=== PATIENT | female | born 1960 | race Caucasian/White ===

== ENCOUNTER 2018-01-11 21:01 | Observation (INO) | payer MEDICARE, MEDICAID, SELFPAY ==
[2018-01-11 21:03] VITALS: BP 128/50; PULSE 64; RESP 22; TEMP 36.9; O2SAT 90; BMI 37.1
--- NOTE | 2018-01-11 21:13 | XR_ITS ---
XR chest 2V HISTORY: ITS.REASON: chest pain ORDERING PHYSICIAN: Sea So MD PATIENT AGE: 57 years COMPARISON: 04/09/2017 FINDINGS: There is cardiomegaly without failure. Right subclavian Mediport catheter present with the tip in the region of the SVC. There are chronic pleural parenchymal changes on the right. No lobar consolidation or collapse. A bone plate is present over the lower cervical spine. No acute bony anomalies. IMPRESSION: Cardiomegaly with chronic changes, no acute finding
[2018-01-11 21:38] LABS: Basophils # 0.1 K/mm3 (0-0.2); Basophils % 0.7 % (0.1-2.0); Eosinophils # 0.4 K/mm3 (0.0-0.4); Eosinophils % 2.9 % (0.1-12.0); Hematocrit 42.7 % (37.0-47.0); Hemoglobin 13.5 g/dL (12.2-16.2); Lymphocytes # 4.1 K/mm3 (0.7-4.5); Lymphocytes % 33.7 K/mm3 (10-50); Mean Corpuscular HGB Conc 31.7 g/dL (31.8-35.4); Mean Corpuscular Hemoglobin 29.2 pg (27.0-31.2); Mean Corpuscular Volume 92.1 fl (81-99); Mean Platelet Volume 9.3 fl (7.4-10.4); Monocytes # 0.6 K/mm3 (0.1-1.0); Monocytes % 4.7 % (1.7-9.3); Neutrophils % 57.9 % (37.0-80.0); Platelet Count 263 K/mm3 (142-424); Red Blood Count 4.63 M/mm3 (4.20-5.40); Red Cell Distribution Width 13.9 % (11.5-17.5)
--- NOTE | 2018-01-11 21:51 | HMH.EDCP ---
ED Disposition Clinical Impression: Chest pain Qualifiers: Chest pain type: precordial pain Qualified Code(s): R07.2 - Precordial pain Disposition: Admitted as Observation Condition on Discharge: Good - Critical Care Critical Care Time: No Attestation: On 01/11/18, the high probability of a clinically significant, sudden or life threatening deterioration of the following system(s) required my full and direct attention, intervention and personal management. The time I documented below is in addition to time spent performing reported procedures but includes the following listed in this critical care notation. Medical Decision Making - Medical Records Medical records reviewed: Yes: I reviewed the patient's medical records. Vital Signs: 01/11/18 21:03 Temperature 98.4 F Temperature Source Oral Pulse Rate [Right Radial] 64 Respiratory Rate 22 Blood Pressure [Right Arm] 128/50 Blood Pressure Mean [Right Arm] 76 Blood Pressure Source [Right Arm] Automatic Cuff Blood Pressure Position [Right Arm] Sitting 02 Sat by Pulse Oximetry 90 L Oxygen Delivery Method Room Air - Lab Data Lab results reviewed: Yes: I reviewed the patient's lab results. Lab Results 01/11/18 21:20: WBC 12.0 H, RBC 4.63, Hgb 13.5, Hct 42.7, MCV 92.1, MCH 29.2, MCHC 31.7 L, RDW 13.9, Plt Count 263, MPV 9.3, Neut % (Auto) 57.9, Lymph % (Auto) 33.7, [place] % (Auto) 4.7, Eos % (Auto) 2.9, Baso % (Auto) 0.7, Neut # (Auto) 7.0, Lymph # (Auto) 4.1, Mcle[place] # (Auto) 0.6, Eos # (Auto) 0.4, Baso # (Auto) 0.1 01/11/18 21:20: Sodium 141, Potassium 4.0, Chloride 103, Carbon Dioxide 31, Anion Gap 11.0, BUN 13, Creatinine 1.04 H, Estimated Creat Clear 98, Estimated GFR 55 L, Est GFR ( Amer) 66, Glucose 107 H, Calcium 8.5, Total Bilirubin 0.3, AST 8 L, ALT 22, Alkaline Phosphatase 162 H, Total Creatine Kinase 69, CK-MB (CK-2) 0.8, CK-MB (CK-2) Rel Index 1.2, Troponin I < 0.02, Total Protein 7.1, Albumin 3.3 L, Globulin 3.8 H, Albumin/Globulin Ratio 0.9 L 01/11/18 21:20: Influenza Type A Ag Negative, Influenza Type B Ag Negative 01/11/18 22:35: Urine Color Yellow, Urine Appearance Sl cloudy, Urine pH 7.0, Ur Specific [place] 1.020, Urine Protein Negative, Urine Glucose (UA) Negative, Urine Ketones Negative, Urine Blood Negative, Urine Nitrate Negative, Urine Bilirubin Negative, Urine Urobilinogen 0.2, Ur Leukocyte Esterase Negative, Ur Squamous Epith Cells 10-20, Amorphous Sediment 2+, Urine Mucus Trace Result diagrams: 01/11/18 21:20 01/11/18 21:20 Orders (Tests/Meds): ED MEDICATIONS Discontinued Medications Generic Name Dose Route Start Last Admin Trade Name Freq PRN Reason Stop Dose Admin Acetaminophen 650 mg 01/11/18 22:58 01/11/18 23:09 Acetaminophen 325mg Tab PO 01/11/18 22:59 650 mg ONCE ONE Administration Aspirin 325 mg 01/11/18 21:52 01/11/18 21:57 Aspirin 325mg Tablet PO 01/11/18 21:53 325 mg ONCE ONE Administration Butorphanol Tartrate 1 mg 01/11/18 23:19 Stadol 1mg/1ml Vial IV 01/11/18 23:20 ONCE ONE Nitroglycerin 1 gm 01/11/18 21:53 01/11/18 21:57 Nitroglycerin 1 Inch Oint Udp TD 01/11/18 21:54 1 gm ONCE ONE Administration Promethazine HCl 12.5 mg 01/11/18 23:19 Phenergan 25mg/Ml 1ml Vial IV 01/11/18 23:20 ONCE ONE Sodium Chloride 25 ml 01/11/18 23:19 Sod Chlor 0.9% 25ml Bag IV 01/11/18 23:20 ONCE ONE ORDERS Category Date Time Status XR chest 2V Stat Exams 01/11/18 21:13 Taken ECG Request by /Berna Stat Y 01/11/18 21:13 Ordered - Radiology Data #1 Image(s): Chest Image Reviewed: Yes I reviewed the patient's radiology image Preliminary Findings: Abnormal (cm) - ECG Data Tracing #1 I reviewed this ECG and interpreted as documented below: Normal Sinus Rhythm: Yes Ischemic changes: non-specific ST-T wave changes - Delroy Inquiry Pt receiving controlled substance: No Chest Pain HPI - General Chief Complaint: Chest Pain
[2018-01-11 22:08] LABS: Alanine Aminotransferase 22 U/L (12-78); Albumin Level 3.3 gm/dL (3.4-5.0); Albumin/Globulin Ratio 0.9 (1.1-1.8); Alkaline Phosphatase 162 U/L (46-116); Aspartate Amino Transferase 8 U/L (15-37); Bilirubin,Total 0.3 mg/dL (0.2-1.0); Blood Urea Nitrogen 13 mg/dL (7-18); CKMB Relative Index 1.2 U/L (0-4.0); Calcium 8.5 mg/dL (8.5-10.1); Carbon Dioxide 31 mmol/L (21.0-32.0); Chloride 103 mmol/L (98-107); Creatine Kinase 69 U/L (26-192); Creatine Kinase MB 0.8 mg/ml (0.0-3.6); Creatinine Clearance Estimated 98 mL/min (0-300); Creatinine,Serum 1.04 mg/dL (0.55-1.02); Estimated Glomerular Filt Rate 55 ml/min (>60); GFR (African American) 66 ML/MIN (>60); Globulin 3.8 gm/dl (1.3-3.2); Glucose 107 mg/dL (74-106); Sodium 141 mmol/L (136-145); Total Protein,Serum 7.1 gm/dL (6.4-8.2); Troponin I < 0.02 ng/ml (0.00-0.06)
[2018-01-11 22:39] LABS: Microscopic, Urine URINE MICROSCOPIC (MICROSCOPIC)
[2018-01-11 22:42] LABS: Appearance,Urine SL CLOUDY (Clear); Bilirubin,Urine Negative (Negative); Blood, Urine Negative (Negative); Color,Urine YELLOW (Yellow); Glucose,Urine (UA) Negative (Negative); Ketones,Urine Negative (Negative); Leukocyte Esterase,Urine Negative (Negative); Nitrate,Urine Negative (Negative); Protein,Urine Negative (Negative); Urobilinogen,Urine 0.2 EU/dl (0.2)
[2018-01-11 22:46] LABS: Amorphous Sediment,Urine 2+ /lpf; Mucus,Urine Trace /lpf
[2018-01-12] VITALS (10 sets, daily range): BP systolic 99–133; BP diastolic 63–92; PULSE 50–93; RESP 13–22; TEMP 36.4–36.9; O2SAT 90–95; BMI 39.0
--- NOTE | 2018-01-12 00:28 | PC.NURSE ---
CALLED REPORT TO NICOLA [facility]OR IN ICU
[2018-01-12 05:44] LABS: Basophils # 0.1 K/mm3 (0-0.2); Basophils % 0.6 % (0.1-2.0); Eosinophils # 0.3 K/mm3 (0.0-0.4); Eosinophils % 2.9 % (0.1-12.0); Hematocrit 41.5 % (37.0-47.0); Hemoglobin 13.1 g/dL (12.2-16.2); Lymphocytes # 4.1 K/mm3 (0.7-4.5); Lymphocytes % 40.4 K/mm3 (10-50); Mean Corpuscular HGB Conc 31.5 g/dL (31.8-35.4); Mean Corpuscular Hemoglobin 29.4 pg (27.0-31.2); Mean Corpuscular Volume 93.3 fl (81-99); Mean Platelet Volume 8.8 fl (7.4-10.4); Monocytes # 0.4 K/mm3 (0.1-1.0); Monocytes % 4.4 % (1.7-9.3); Neutrophils # 5.2 K/mm3 (1.8-7.8); Neutrophils % 51.7 % (37.0-80.0); Platelet Count 245 K/mm3 (142-424); Red Blood Count 4.45 M/mm3 (4.20-5.40); White Blood Count 10.1 K/mm3 (4.8-10.8)
--- NOTE | 2018-01-12 05:59 | PC.NURSE ---
PT HAS HAD PERIODS OF BRADYCARDIA AT TIMES. PT IS NPO THIS AM FOR [facility] CONSULT. PT REMAINS ON 3L O2 NC. LUNGS NOTED TO HAVE CRACKLES TO BILATERAL BASES. PT HAS C/O DISCOMFORT TO CHEST AND EPIGASTRIC AREA. SHE ALSO STATED THAT SHE HAD NAUSEA AND LOOSE STOOLS EARLIER. SKIN WAS NOTED TO HAVE A SCRATCH TO HER BACK. PORTACATH ACCESSED FOR USE OF IV FLUID ADMIN. MEDICATIONS ADMIN PER JAN.WILL CONTINUE TO MONITOR.
[2018-01-12 06:05] LABS: Anion Gap 8.8 mEq/L (5-15); Blood Urea Nitrogen 13 mg/dL (7-18); Carbon Dioxide 32 mmol/L (21.0-32.0); Chloride 105 mmol/L (98-107); Chol/HDL Ratio 3.2 (1-3.5); Cholesterol 119 mg/dL (140-200); Creatinine Clearance Estimated 100 mL/min (0-300); Creatinine,Serum 1.08 mg/dL (0.55-1.02); Estimated Glomerular Filt Rate 52 ml/min (>60); GFR (African American) 63 ML/MIN (>60); Glucose 115 mg/dL (74-106); HDL Cholesterol 37 mg/dL (29-89); LDL Cholesterol 45 mg/dL (0-130); Potassium 3.8 mmoL/L (3.5-5.1); Sodium 142 mmol/L (136-145); Triglycerides 184 mg/dL (30-200); Troponin I < 0.02 ng/ml (0.00-0.06); VLDL Cholesterol 37 mg/dL (0-40)
--- NOTE | 2018-01-12 07:26 | CA_ITS ---
PROCEDURE: 2-D M-mode and color Doppler study INDICATIONS FOR THE TEST: Chest pain+ COPD+ Heart Murmur Tobacco Smoking+ Palpitations Fatigue Syncope Edema Hypertension+Diabetes Mellitus Rheumatic Fever SOB+CELESTE Obesity+Hyperlipidemia+ Family History HD+ Additional History dizziness PATIENT INFORMATION HEIGHT: 66 WEIGHT: 242 GENDER: Female B/P: 142/74 2-D/M-MODE INTERPRETATION: 2-D MEASUREMENTS OBSERVED VALUES IN CMS Right Ventricular Dimension (RVDd) 2.7 Interventricular Septum (Thickness)(IVsd) 1.2 Left Ventricular Internal Dimensions(LVIDd) 4.3 Left Ventricular Posterior Wall (Thickness)(LVPWd) 1.3 Aortic Root 2.7 Aortic Cusp Separation 2.2 Left Atrial Dimensions (LAD) 4.7 2D 1. Left atrium is mildly enlarged, left ventricle is normal size, mild concentric left ventricular hypertrophy, visually estimated ejection fraction 55% with no obvious regional wall motion abnormality. 2. The right atrium and right ventricle are normal size and contractility. 3. The aortic valve is minimally thickened and fibrosed. 4. The mitral and tricuspid valve leaflets are minimally thickened. 5. The pulmonic valve is poorly visualized. 6. No significant pericardial effusion noted. DOPPLER INTERROGATION: Doppler interrogation of the aortic, mitral and tricuspid valvular presence of mild mitral and tricuspid regurgitation, tricuspid and jet velocity is insufficient for calculation of the right ventricular systolic pressure, grade 1 diastolic dysfunction seen with tissue Doppler evidence of raised left atrial pressure. CONCLUSION: 1. Mildly enlarged left atrium, normal left ventricular size, mild concentric left ventricular hypertrophy, visually estimated ejection fraction 55% with no obvious regional wall motion abnormality, grade 1 diastolic dysfunction seen with tissue Doppler evidence of raised left atrial pressure. 2. Mild mitral and tricuspid regurgitation 3. No significant pericardial effusion noted.
--- NOTE | 2018-01-12 07:40 | HMH.HP ---
*Admission Date: 01/11/18 *Chief complaint: Chest pain *History of present illness: 57-year-old female presented to the emergency department with chest tightness. 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 She was on her way to get her grandchild yesterday and was emotionally upset and developed chest tightness with associated shortness of breath. She had symptoms for approximately an hour before deciding to seek treatment at the emergency department. She states symptoms started to improve in the emergency department but her chest tightness did not actually go away until she fell asleep and awoke this morning free of any chest discomfort. She is has associated nausea as well as shortness of breath. Patient had a similar episode 6 months ago which led to a hospitalization at [facility] where she underwent echocardiogram as well as Lexiscan stress test. She did not have cardiac catheterization. In addition to this patient has a long history of gastrointestinal problems including severe gastrointestinal reflux disease along with recurrent and chronic pancreatitis and gastritis. Patient denies vomiting [facility] History Medical History: Reports:: Gastroesophageal Reflux Disease(GERD), Peripheral Artery Disease Denies:: Diabetes Mellitus Type 1 Other Medical History: Reports: Hoarseness Comment: reCurrent pancreatitis Other Surgeries: Yes: Colonoscopy, EGD - *Social History Educational Level: Completed College Smoking Status: Current every day smoker Tobacco Type: cigarettes # Packs/Day (cigarettes): 12 #Yrs smoked (if former smoker): 50 Alcohol Intake: never Alcohol Intake Frequency:: a few times a week Occupational Status: unemployed Housing: house Household Members: spouse, children - Psychiatric History Expresses thoughts of harming self/others: None Suicide Plan Description: No Plan *Family Hx:: Hyperlipidemia, Hypertension, Stroke Review of Systems - Review of Systems Review of systems:: pertinent systems reviewed and negative unless documented below - Constitutional Denies body ache(s), Denies chills - *Cardiovascular Reports chest pain, Reports shortness of breath - *Respiratory Denies chest congestion, Denies cough - *Gastrointestinal Denies abdominal pain, Denies bloating, Denies change in bowel habits - *Neurologic Denies seizure-like activity Meds Home Medications Medication Instructions Recorded Confirmed Type ALPRAZolam [Xanax 1mg tab] 1 mg PO BID 01/11/18 01/11/18 History Atorvastatin Calcium [Lipitor 40mg 40 mg PO DAILY 01/11/18 01/11/18 History Tablet] Duloxetine HCl [Cymbalta] 60 mg PO BID 01/11/18 01/11/18 History Metoprolol Tartrate 100 mg PO DAILY 01/11/18 01/11/18 History Montelukast Sodium [Singulair 10mg 10 mg PO PM 01/11/18 01/11/18 History tablet] Omeprazole Magnesium [Prilosec Otc 20 mg PO DAILY 01/11/18 01/11/18 History 20mg Tab] Trazodone HCl 150 mg PO HS 01/11/18 01/11/18 History Allergies Allergy/AdvReac Type Severity Reaction Status Date / Time codeine [CODEINE] Allergy Unknown Verified 01/11/18 21:17 ketorolac [KETOROLAC] Allergy Unknown Verified 01/11/18 21:17 meperidine [MEPERIDINE] Allergy Unknown Verified 01/11/18 21:17 tramadol [TRAMADOL] Allergy Unknown Verified 01/11/18 21:17 Exam Vital signs and Labs for Last 24 Hours: Temp Pulse Resp BP Pulse Ox 97.5 F L 50 L 20 99/63 93 L 01/12/18 04:05 01/12/18 05:04 01/12/18 04:05 01/12/18 04:05 01/12/18 04:05 Laboratory Results - last 24 hr 01/12/18 05:15: WBC 10.1, RBC 4.45, Hgb 13.1, Hct 41.5, MCV 93.3, MCH 29.4, MCHC 31.5 L, RDW 14.0, Plt Count 245, MPV 8.8, Neut % (Auto) 51.7, Lymph % (Auto) 40.4, [place] % (Auto) 4.4, Eos % (Auto) 2.9, Baso % (Auto) 0.6, Neut # (Auto) 5.2, Lymph # (Auto) 4.1, [place] # (Auto) 0.4, Eos # (Auto) 0.3, Baso # (Auto) 0.1 01/12/18 05:15: Sodium 142, Potassium 3.8, Chloride 105, Carbon Dioxide 32, Anion Gap 8.8, BU
--- NOTE | 2018-01-12 07:44 | P.HP_ITS ---
*Admission Date: 01/11/18 *Chief complaint: Chest pain *History of present illness: 57-year-old female presented to the emergency department with chest tightness. 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 She was on her way to get her grandchild yesterday and was emotionally upset and developed chest tightness with associated shortness of breath. She had symptoms for approximately an hour before deciding to seek treatment at the emergency department. She states symptoms started to improve in the emergency department but her chest tightness did not actually go away until she fell asleep and awoke this morning free of any chest discomfort. She is has associated nausea as well as shortness of breath. Patient had a similar episode 6 months ago which led to a hospitalization at [facility] where she underwent echocardiogram as well as Lexiscan stress test. She did not have cardiac catheterization. In addition to this patient has a long history of gastrointestinal problems including severe gastrointestinal reflux disease along with recurrent and chronic pancreatitis and gastritis. Patient denies vomiting [facility] History Medical History: Reports:: Gastroesophageal Reflux Disease(GERD), Peripheral Artery Disease Denies:: Diabetes Mellitus Type 1 Other Medical History: Reports: Hoarseness Comment: reCurrent pancreatitis Other Surgeries: Yes: Colonoscopy, EGD - *Social History Educational Level: Completed College Smoking Status: Current every day smoker Tobacco Type: cigarettes # Packs/Day (cigarettes): 12 #Yrs smoked (if former smoker): 50 Alcohol Intake: never Alcohol Intake Frequency:: a few times a week Occupational Status: unemployed Housing: house Household Members: spouse, children - Psychiatric History Expresses thoughts of harming self/others: None Suicide Plan Description: No Plan *Family Hx:: Hyperlipidemia, Hypertension, Stroke Review of Systems - Review of Systems Review of systems:: pertinent systems reviewed and negative unless documented below - Constitutional Denies body ache(s), Denies chills - *Cardiovascular Reports chest pain, Reports shortness of breath - *Respiratory Denies chest congestion, Denies cough - *Gastrointestinal Denies abdominal pain, Denies bloating, Denies change in bowel habits - *Neurologic Denies seizure-like activity Meds Home Medications Medication Instructions Recorded Confirmed Type ALPRAZolam [Xanax 1mg tab] 1 mg PO BID 01/11/18 01/11/18 History Atorvastatin Calcium [Lipitor 40mg 40 mg PO DAILY 01/11/18 01/11/18 History Tablet] Duloxetine HCl [Cymbalta] 60 mg PO BID 01/11/18 01/11/18 History Metoprolol Tartrate 100 mg PO DAILY 01/11/18 01/11/18 History Montelukast Sodium [Singulair 10mg 10 mg PO PM 01/11/18 01/11/18 History tablet] Omeprazole Magnesium [Prilosec Otc 20 mg PO DAILY 01/11/18 01/11/18 History 20mg Tab] Trazodone HCl 150 mg PO HS 01/11/18 01/11/18 History Allergies Allergy/AdvReac Type Severity Reaction Status Date / Time codeine [CODEINE] Allergy Unknown Verified 01/11/18 21:17 ketorolac [KETOROLAC] Allergy Unknown Verified 01/11/18 21:17 meperidine [MEPERIDINE] Allergy Unknown Verified 01/11/18 21:17 tramadol [TRAMADOL] Allergy Unknown Verified 01/11/18 21:17 Exam Vital signs and Labs for Last 24 Hours: Temp Pulse Resp BP Pulse Ox 97.5 F L 50 L 20 99/63
--- NOTE | 2018-01-12 08:01 | HMH.CNCARD ---
History of Present Illness Consult date: 01/12/18 Requesting physician: Oskar Donovan Consult reason: chest pain Chief complaint: Chest pressure, SOA History of present illness: 57 yo WF with COPD secondary to tobacco use, HTN and hyperlipidemia presented to ER for evaluation of chest pain, pressure, SOA and nausea during emotional upset with family members. This is a recurrent event with emotional upset per patient. Recently hospitalized last year for similar symptoms at [facility] without need for cardiac cath per patient. Patient relates CVA last year for which she was placed on anticoagulation but unable to afford it so she was put on coumadin but due to instruction to not take ASA (she uses it for headaches) she stopped taking the coumadin. Pt admitted through the ER last evening with troponins returning normal. EKG is sinus without acute changes. Cardiology consulted for evaluation. [facility] History Medical History: Reports:: Gastroesophageal Reflux Disease(GERD), Peripheral Artery Disease Denies:: Diabetes Mellitus Type 1 Other Medical History: Reports: Hoarseness Other Surgeries: Yes: Colonoscopy, EGD - *Social History Educational Level: Completed College Smoking Status: Current every day smoker Tobacco Type: cigarettes # Packs/Day (cigarettes): 12 #Yrs smoked (if former smoker): 50 Alcohol Intake: never Alcohol Intake Frequency:: a few times a week Occupational Status: unemployed Housing: house Household Members: spouse, children - Psychiatric History Expresses thoughts of harming self/others: None Suicide Plan Description: No Plan *Family Hx:: Hyperlipidemia, Hypertension, Stroke Meds Home Medications Medication Instructions Recorded Confirmed Type ALPRAZolam [Xanax 1mg tab] 1 mg PO BID 01/11/18 01/11/18 History Atorvastatin Calcium [Lipitor 40mg 40 mg PO DAILY 01/11/18 01/11/18 History Tablet] Duloxetine HCl [Cymbalta] 60 mg PO BID 01/11/18 01/11/18 History Metoprolol Tartrate 100 mg PO DAILY 01/11/18 01/11/18 History Montelukast Sodium [Singulair 10mg 10 mg PO PM 01/11/18 01/11/18 History tablet] Omeprazole Magnesium [Prilosec Otc 20 mg PO DAILY 01/11/18 01/11/18 History 20mg Tab] Trazodone HCl 150 mg PO HS 01/11/18 01/11/18 History Allergies Allergy/AdvReac Type Severity Reaction Status Date / Time codeine [CODEINE] Allergy Unknown Verified 01/11/18 21:17 ketorolac [KETOROLAC] Allergy Unknown Verified 01/11/18 21:17 meperidine [MEPERIDINE] Allergy Unknown Verified 01/11/18 21:17 tramadol [TRAMADOL] Allergy Unknown Verified 01/11/18 21:17 Review of Systems - *Cardiovascular Reports chest pain, Reports chest pain at rest, Reports shortness of breath, Reports shortness of breath with activity - *Respiratory Reports shortness of breath, Reports shortness of breath with activity - *Musculoskeletal Reports back pain - *Neurologic Denies seizure-like activity Exam Vital signs and Labs for Last 24 Hours: Temp Pulse Resp BP Pulse Ox 97.5 F L 50 L 20 99/63 93 L 01/12/18 04:05 01/12/18 05:04 01/12/18 04:05 01/12/18 04:05 01/12/18 04:05 Laboratory Results - last 24 hr 01/12/18 05:15: WBC 10.1, RBC 4.45, Hgb 13.1, Hct 41.5, MCV 93.3, MCH 29.4, MCHC 31.5 L, RDW 14.0, Plt Count 245, MPV 8.8, Neut % (Auto) 51.7, Lymph % (Auto) 40.4, [place] % (Auto) 4.4, Eos % (Auto) 2.9, Baso % (Auto) 0.6, Neut # (Auto) 5.2, Lymph # (Auto) 4.1, [place] # (Auto) 0.4, Eos # (Auto) 0.3, Baso # (Auto) 0.1 01/12/18 05:15: Sodium 142, Potassium 3.8, Chloride 105, Carbon Dioxide 32, Anion Gap 8.8, BUN 13, Creatinine 1.08 H, Estimated Creat Clear 100, Estimated GFR 52 L, Est GFR ( Amer) 63, Glucose 115 H, Troponin I < 0.02, Triglycerides 184, Cholesterol 119 L, LDL Cholesterol 45, VLDL Cholesterol 37, HDL Cholesterol 37, Cholesterol/HDL Ratio 3.2 I & O for Last 24 hours: Intake & Output 01/09/18 01/10/18 01/11/18 01/12/18 11:59 11:59 11:59 11:59 Weight 242 lb 3 oz - *R
--- NOTE | 2018-01-12 08:06 | NM_ITS ---
CARDIOLITE SPECT MYOCARDIAL PERFUSION SCAN, REST AND STRESS: EXERCISE STRESS [facility] REVIEW QGS EF AND WALL MOTION EVALUATION: QPS - PERFUSION EVALUATION HISTORY: Chest pain, SOB, Abnormal EKG, Fatigue, COPD DOSE: 8.80 mCi technetium 99m mibi intravenously at rest followed by 30.5 mCi technetium 99m mibi following the intravenous ministration of 0.4 mg of Lexiscan. Resting blood pressure is 145/87. Stress blood pressure 131/77. FINDINGS: Ejection fraction is calculated to be 61%. Stress images reveal severely decreased activity throughout the anterior wall and a large portion of the inferior wall while rest images reveal significant improvement in tracer uptake in both the anterior and inferior wall. IMPRESSION: High risk abnormal stress test with large degree of both anterior and inferior ischemia. Normal ejection fraction and normal wall motion
--- NOTE | 2018-01-12 08:11 | PC.NURSE ---
PT HAND OFF TO Edson BRYAN AND Rusty DANIEL
--- NOTE | 2018-01-12 08:36 | HMH.PHAVTE ---
[facility] Pharmacy VTE Monitoring - Patient Demographics Admission date: 01/11/18 Report Date: 01/12/18 Time: 08:36 Allergies/Adverse Reactions: Patient Allergies codeine [CODEINE] Allergy (Unknown, Verified 01/11/18 21:17) ketorolac [KETOROLAC] Allergy (Unknown, Verified 01/11/18 21:17) meperidine [MEPERIDINE] Allergy (Unknown, Verified 01/11/18 21:17) tramadol [TRAMADOL] Allergy (Unknown, Verified 01/11/18 21:17) Height: 1.68 m Weight: 109.854 kg Patient Problems: Current Active Problems Chest pain (Acute) Tobacco use (Acute) COPD (chronic obstructive pulmonary disease) (Acute) Hypertension (Acute) Hyperlipidemia (Acute) History of CVA (cerebrovascular accident) (Acute) Noncompliance with medication regimen (Acute) - VTE Risk Labs: VTE Related Lab Results Hgb 13.1 g/dL (12.2-16.2) 01/12/18 05:15 Hct 41.5 % (37.0-47.0) 01/12/18 05:15 Plt Count 245 K/mm3 (142-424) 01/12/18 05:15 BUN 13 mg/dL (7-18) 01/12/18 05:15 Creatinine 1.08 mg/dL (0.55-1.02) H 01/12/18 05:15 Estimated Creat Clear 100 mL/min (0-300) 01/12/18 05:15 Was VTE Risk Assessment Performed: Yes VTE Score: 8 VTE Risk Level: Moderate Risk - Prophylaxis VTE Prophylaxis Ordered?: Yes Types of VTE Prophylaxis: TEDS Knee High Location of Applied Device: Bilateral Lower Extremeties - VTE Diagnosis Confirmed Treatment or plan recommended: Continue Current Treatment
--- NOTE | 2018-01-12 16:12 | PC.NURSE ---
PT STABLE. AFTER GETTING BACK TO FLOOR FROM [facility]ARDIOL[facility] PT SLEEPS MOST OF THE REST OF THE SHIFT. DENIES CP AND SOA.
--- NOTE | 2018-01-12 18:55 | PC.NURSE ---
[id number]: CONTACTED DR ARZOLA REGARDING PT REQUESTING MEDICATION OTHER THAN TYLENOL FOR HEADACHE. PT STATES TYLENOL DID NOT HELP THE PAIN. HAS NO NEW ORDERS.
[2018-01-12 20:19] LABS: Amylase 40 U/L (25-125); Lipase 158 u/L (73-393)
[2018-01-13] VITALS (22 sets, daily range): BP systolic 115–174; BP diastolic 55–109; PULSE 57–90; RESP 15–22; TEMP 36.4–36.7; O2SAT 90–98
--- NOTE | 2018-01-13 | IR_ITS ---
CARDIAC CATHETERIZATION DATE OF CATHETERIZATION:01/13/2018 11:59 AM PROCEDURES: 1. Left heart catheterization 2. Left ventriculogram 3. Selective coronary angiogram 4. Drug-eluting stent deployment to the proximal mid dominant right coronary artery 5. Drug-eluting stent deployment to the proximal mid left anterior descending artery INDICATION FOR TEST: 1. Coronary artery disease 2. High risk abnormal Myoview with both anterior and inferior ischemia 3. Angina pectoris class III and IV 4. Moderate to severe COPD Informed consent was obtained prior to the procedure. COMPLICATIONS: None ESTIMATED BLOOD LOSS: Less than 10 ml. TECHNIQUE: One percent lidocaine used to anesthetize the right anterior aspect of the wrist. The right radial artery was accessed via the Seldinger technique. A 6 Malay sheath was placed in the right radial artery. 2.5 mg of verapamil, 800 mcg of nitroglycerin and 5000 U Heparin were given through the arterial sheath. The trap catheter was also used to perform left heart catheterization left ventriculogram and selective coronary angiogram. Following the diagnostic angiogram and additional 6000 and then 2000 units of heparin was administered intravenously. An [employer] left guide catheter was used intubate the right coronary and a BMW wire was placed in the right coronary artery. A 3 mm x 34 mm resolute Dale stent was deployed at 24 sathish reducing hemodynamically severe disease to 0%. ROSEMARY-3 flow was present before and after the procedure. Following this the guide catheter was used intubate the left main artery and the same wire was placed in the LAD. A 3 mm x 15 mm resolute Dale stent was deployed at 18 sathish reducing the stenosis to 0%. It was disease distally therefore an additional 2.75 x 15 mm resolute [place] stent was deployed distal to the first stent yet still overlapping the first stent and deployed at 18 sathish. The balloon was brought back and deployed at 24 sathish to mesh the 2 stents. ROSEMARY-3 flow was present before and after the procedure. At the end of the procedure the sheath was removed good hemostasis was achieved using TR banding patient transferred to the postop holding area in stable condition. Brilinta 180 mg along with aspirin 325 mg was administered orally on the table. ACT is were 283 seconds and the final out of range ANGIOGRAPHIC RESULTS: 1. The left main artery normal 2. The left anterior descending artery has a proximal concentric 70% stenosis best appreciated and the ONEILL caudal view. The remaining vessel has mild luminal irregularities. The first large diagonal artery has an ostial proximal 60% stenosis. 3. The ramus intermedius is a large vessel with a ostial proximal 40-50% stenosis 4. The circumflex artery is a nondominant vessel with mild 20-30% proximal disease 5. The right coronary artery is a dominant vessel with proximal 30% followed by additional concentric 70% followed by additional 50% mid vessel stenosis 6. The ONEILL ventriculogram reveals normal 65% 7. The left ventricular end-diastolic pressure 20 mmHg IMPRESSION: 1. Severe 2 vessel coronary artery disease as described above which correlated perfectly to the abnormal Myoview with both anterior and inferior ischemia 2. Successful stenting the proximal to mid LAD stent severe disease reduced to 0% with 2 drug-eluting stents 3. Successful stenting of the proximal to mid dominant right coronary artery severe disease reduced to 0% with 1 drug-eluting stent 4. Normal ejection fraction 5. Mildly elevated LVEDP PLAN: 1. Brilinta and aspirin 2. LDL less than 55 3. Risk factor modification 4. Cardiac rehabilitation 5. Avoidance of tobacco products 6. Aggressive risk factor modification
--- NOTE | 2018-01-13 02:34 | PC.NURSE ---
PT IS A&OX3. SHE IS NPO FOR HEART CATH IN AM. RECEIVED PRN MEDICATION FOR PAIN IN ABDOMEN THAT RADIATES TO HER BACK. FAMILY IS AT THE BEDSIDE. SHE HAS BEEN RESTING T/O THE NIGHT. NSR ON TELEMETRY WHILE AWAKE, BRADYCARDIC (57-58) WHILE SLEEPING.
--- NOTE | 2018-01-13 04:18 | PC.NURSE ---
PT WAS CLIPPED FOR PROCEDURE
[2018-01-13 06:00] LABS: Basophils # 0.1 K/mm3 (0-0.2); Basophils % 0.6 % (0.1-2.0); Eosinophils # 0.3 K/mm3 (0.0-0.4); Eosinophils % 2.8 % (0.1-12.0); Hematocrit 40.3 % (37.0-47.0); Hemoglobin 12.7 g/dL (12.2-16.2); Lymphocytes # 3.1 K/mm3 (0.7-4.5); Mean Corpuscular HGB Conc 31.4 g/dL (31.8-35.4); Mean Corpuscular Hemoglobin 29.5 pg (27.0-31.2); Mean Corpuscular Volume 93.9 fl (81-99); Mean Platelet Volume 8.7 fl (7.4-10.4); Monocytes # 0.4 K/mm3 (0.1-1.0); Monocytes % 4.3 % (1.7-9.3); Neutrophils # 5.9 K/mm3 (1.8-7.8); Neutrophils % 60.3 % (37.0-80.0); Platelet Count 233 K/mm3 (142-424); Red Blood Count 4.29 M/mm3 (4.20-5.40); White Blood Count 9.7 K/mm3 (4.8-10.8)
[2018-01-13 06:08] LABS: INR 0.95 (0.9-1.1); Prothrombin Time 10.3 seconds (9.4-11.8)
[2018-01-13 06:17] LABS: Alanine Aminotransferase 20 U/L (12-78); Albumin Level 2.8 gm/dL (3.4-5.0); Albumin/Globulin Ratio 0.9 (1.1-1.8); Alkaline Phosphatase 151 U/L (46-116); Anion Gap 7.8 mEq/L (5-15); Aspartate Amino Transferase 6 U/L (15-37); Bilirubin,Total 0.2 mg/dL (0.2-1.0); Blood Urea Nitrogen 14 mg/dL (7-18); Calcium 7.8 mg/dL (8.5-10.1); Carbon Dioxide 33 mmol/L (21.0-32.0); Chloride 106 mmol/L (98-107); Creatinine Clearance Estimated 109 mL/min (0-300); Estimated Glomerular Filt Rate 57 ml/min (>60); GFR (African American) 69 ML/MIN (>60); Globulin 3.2 gm/dl (1.3-3.2); Glucose 118 mg/dL (74-106); Potassium 3.8 mmoL/L (3.5-5.1); Sodium 143 mmol/L (136-145)
--- NOTE | 2018-01-13 07:13 | HMH.ACPN2 ---
Internal Medicine - PN: Subj *Date: 01/13/18 *Time: 07:13 Interval history: Patient had abnormal stress test yesterday and is scheduled for cardiac catheterization today. Last night she complained of headache and abdominal pain and was given a single [place] 5 mg. This allowed her to sleep the rest of the day and night. Exam Vital signs and Labs for Last 24 Hours: Temp Pulse Resp BP Pulse Ox 97.6 F 57 L 18 119/60 90 L 01/13/18 04:22 01/13/18 04:22 01/13/18 04:22 01/13/18 04:22 01/13/18 04:22 Laboratory Results - last 24 hr 01/12/18 18:00: Amylase 40, Lipase 158 01/13/18 05:40: WBC 9.7, RBC 4.29, Hgb 12.7, Hct 40.3, MCV 93.9, MCH 29.5, MCHC 31.4 L, RDW 14.0, Plt Count 233, MPV 8.7, Neut % (Auto) 60.3, Lymph % (Auto) 32.0, [place] % (Auto) 4.3, Eos % (Auto) 2.8, Baso % (Auto) 0.6, Neut # (Auto) 5.9, Lymph # (Auto) 3.1, [place] # (Auto) 0.4, Eos # (Auto) 0.3, Baso # (Auto) 0.1 01/13/18 05:40: PT 10.3, INR 0.95 01/13/18 05:40: Sodium 143, Potassium 3.8, Chloride 106, Carbon Dioxide 33 H, Anion Gap 7.8, BUN 14, Creatinine 1.00, Estimated Creat Clear 109, Estimated GFR 57 L, Est GFR ( Amer) 69, Glucose 118 H, Calcium 7.8 L, Total Bilirubin 0.2, AST 6 L, ALT 20, Alkaline Phosphatase 151 H, Total Protein 6.0 L, Albumin 2.8 L D, Globulin 3.2, Albumin/Globulin Ratio 0.9 L I & O for Last 24 hours: Intake & Output 01/10/18 01/11/18 01/12/18 01/13/18 11:59 11:59 11:59 11:59 Intake Total 397 / 397 Balance 397 / 397 Weight 242 lb 3 oz 245 lb 7 oz Narrative: She is in no distress. Lungs are clear. Heart has regular rate and rhythm Assessment and Plan (1) Chest pain Current visit: Yes Status: Acute Qualifiers: Chest pain type: precordial pain Qualified Code(s): R07.2 - Precordial pain Category: Medical Code(s): R07.9 - Chest pain, unspecified (2) Tobacco use Current visit: Yes Status: Acute Category: Social Hx Code(s): Z72.0 - Tobacco use (3) COPD (chronic obstructive pulmonary disease) Current visit: Yes Status: Acute Category: Medical Code(s): J44.9 - Chronic obstructive pulmonary disease, unspecified (4) Hypertension Current visit: Yes Status: Acute Category: Medical Code(s): I10 - Essential (primary) hypertension (5) Hyperlipidemia Current visit: Yes Status: Acute Category: Medical Code(s): E78.5 - Hyperlipidemia, unspecified (6) History of CVA (cerebrovascular accident) Current visit: Yes Status: Acute Category: Medical Code(s): Z86.73 - Personal history of transient ischemic attack (TIA), and cerebral infarction without residual deficits (7) Noncompliance with medication regimen Current visit: Yes Status: Acute Category: Medical Code(s): Z91.14 - Patient's other noncompliance with medication regimen - Assessment and plan all Dx Assessment and Plan for all problems:: Cardiac catheterization today and then decision making afterwards guarding disposition
--- NOTE | 2018-01-13 10:24 | P.CONCA_ITS ---
History of Present Illness Consult date: 01/12/18 Requesting physician: Oskar Donovan Consult reason: chest pain Chief complaint: Chest pressure, SOA History of present illness: 57 yo WF with COPD secondary to tobacco use, HTN and hyperlipidemia presented to ER for evaluation of chest pain, pressure, SOA and nausea during emotional upset with family members. This is a recurrent event with emotional upset per patient. Recently hospitalized last year for similar symptoms at [facility] without need for cardiac cath per patient. Patient relates CVA last year for which she was placed on anticoagulation but unable to afford it so she was put on coumadin but due to instruction to not take ASA (she uses it for headaches) she stopped taking the coumadin. Pt admitted through the ER last evening with troponins returning normal. EKG is sinus without acute changes. Cardiology consulted for evaluation. [facility] History Medical History: Reports:: Gastroesophageal Reflux Disease(GERD), Peripheral Artery Disease Denies:: Diabetes Mellitus Type 1 Other Medical History: Reports: Hoarseness Other Surgeries: Yes: Colonoscopy, EGD - *Social History Educational Level: Completed College Smoking Status: Current every day smoker Tobacco Type: cigarettes # Packs/Day (cigarettes): 12 #Yrs smoked (if former smoker): 50 Alcohol Intake: never Alcohol Intake Frequency:: a few times a week Occupational Status: unemployed Housing: house Household Members: spouse, children - Psychiatric History Expresses thoughts of harming self/others: None Suicide Plan Description: No Plan *Family Hx:: Hyperlipidemia, Hypertension, Stroke Meds Home Medications Medication Instructions Recorded Confirmed Type ALPRAZolam [Xanax 1mg tab] 1 mg PO BID 01/11/18 01/11/18 History Atorvastatin Calcium [Lipitor 40mg 40 mg PO DAILY 01/11/18 01/11/18 History Tablet] Duloxetine HCl [Cymbalta] 60 mg PO BID 01/11/18 01/11/18 History Metoprolol Tartrate 100 mg PO DAILY 01/11/18 01/11/18 History Montelukast Sodium [Singulair 10mg 10 mg PO PM 01/11/18 01/11/18 History tablet] Omeprazole Magnesium [Prilosec Otc 20 mg PO DAILY 01/11/18 01/11/18 History 20mg Tab] Trazodone HCl 150 mg PO HS 01/11/18 01/11/18 History Allergies Allergy/AdvReac Type Severity Reaction Status Date / Time codeine [CODEINE] Allergy Unknown Verified 01/11/18 21:17 ketorolac [KETOROLAC] Allergy Unknown Verified 01/11/18 21:17 meperidine [MEPERIDINE] Allergy Unknown Verified 01/11/18 21:17 tramadol [TRAMADOL] Allergy Unknown Verified 01/11/18 21:17 Review of Systems - *Cardiovascular Reports chest pain, Reports chest pain at rest, Reports shortness of breath, Reports shortness of breath with activity - *Respiratory Reports shortness of breath, Reports shortness of breath with activity - *Musculoskeletal Reports back pain - *Neurologic Denies seizure-like activity Exam Vital signs and Labs for Last 24 Hours: Temp Pulse Resp BP Pulse Ox 97.5 F L 50 L 20 99/63 93 L 01/12/18 04:05 01/12/18 05:04 01/12/18 04:05 01/12/18 04:05 01/12/18 04:05 Laboratory Results - last 24 hr 01/12/18 05:15: WBC 10.1, RBC 4.45, Hgb 13.1, Hct 41.5, MCV 93.3, MCH 29.4, MCHC 31.5 L, RDW 14.0, Plt Count 245, MPV 8.8, Neut % (Auto) 51.7, Lymph % (Auto ) 40.4, [place] % (Auto) 4.4, Eos % (Auto) 2.9, Baso % (Auto) 0.6, Neut # (Auto) 5.2, Lymph # (Auto) 4.1, [place] #
[2018-01-13 14:07] LABS: CATHL Activated Clotting Time 273 SEC (74-125)
[2018-01-13 14:07] LABS: CATHL Activated Clotting Time 283 SEC (74-125)
--- NOTE | 2018-01-13 14:32 | PC.NURSE ---
late entry : patient left floor at 1115 for cath patient returned at 1345 from manager labor delivery with report given by tru chacko
--- NOTE | 2018-01-13 17:49 | PC.NURSE ---
late entry: pt tracelet removed at 1740. cath site cleaned with cholrhexadine swab, dressed with telfa and tegaderm. pt reminded no lifting, pushing, pulling with r arm. pt lung sounds are diminished throughout. bowel sounds are active in all quads. family is present at bedside. will continue to monitor
--- NOTE | 2018-01-13 18:23 | PC.NURSE ---
pt and family expressed wish to go out side for fresh air pt was advised as well as to family, that the hospital would prefer the pt not leave the unit. the pt had stents placed earlier in the shift and if pt is off of the unit, she is off of the monitor. we are unable to monitor the pt and her condition. the pt was also reminded that [facility] is a nonsmoking facility. the pt was insistent about leaving the unit. pt had previously signed an off unit consent. it was noted at this time as well that the pt had disconnected her own iv. it was reinforced to pt, the dangers of tampering with their iv. 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 will continue to monitor. conversation was witnessed by warehouse team leader S mariaelena RN as well.
--- NOTE | 2018-01-13 19:25 | PC.NURSE ---
report given to kcaey alex rn at 192
[2018-01-14] VITALS: PULSE 70
[2018-01-14 01:28] VITALS: O2SAT 95
--- NOTE | 2018-01-14 01:57 | PC.NURSE ---
PT IS A&OX3. SHE HAS SLEPT MOST OF THIS SHIFT. NSR ON TELEMETRY WHILE AWAKE. BRADYCARDIC AT TIMES WHILE ASLEEP. ATTEMPTING TO WEAN O2. SHE IS S/P HEART CATH WITH 3 STENTS PLACED. RIGHT RADIAL DSG IS C/D/I. NO BRUISING, BLEEDING, OR SWELLING AT SITE. SHE WAS EDUCATED NOT TO PUSH, PULL, OR BEAR WEIGHT ON RIGHT ARM AND TO NOTIFY STAFF IMMEDIATELY OF ANY FEELINGS OF THROBBING OR PULSATING AT SITE. SHE VERBALIZED UNDERSTANDING. FAMILY IS AT THE BEDSIDE.
[2018-01-14 04:00] VITALS: BP 111/75; PULSE 60; PULSE 61; O2SAT 95
[2018-01-14 06:19] LABS: Anion Gap 8.7 mEq/L (5-15); Blood Urea Nitrogen 10 mg/dL (7-18); Carbon Dioxide 33 mmol/L (21.0-32.0); Chloride 104 mmol/L (98-107); Creatinine Clearance Estimated 115 mL/min (0-300); Creatinine,Serum 0.94 mg/dL (0.55-1.02); Estimated Glomerular Filt Rate 61 ml/min (>60); GFR (African American) 74 ML/MIN (>60); Glucose 99 mg/dL (74-106); Potassium 3.7 mmoL/L (3.5-5.1); Sodium 142 mmol/L (136-145)
--- NOTE | 2018-01-14 07:16 | HMH.DCSUM ---
General - General Admission date: 01/11/18 Discharge date: 01/14/18 HPI HPI: 57-year-old female presented to the emergency department with chest tightness. 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 She was on her way to get her grandchild yesterday and was emotionally upset and developed chest tightness with associated shortness of breath. She had symptoms for approximately an hour before deciding to seek treatment at the emergency department. She states symptoms started to improve in the emergency department but her chest tightness did not actually go away until she fell asleep and awoke this morning free of any chest discomfort. She is has associated nausea as well as shortness of breath. Patient had a similar episode 6 months ago which led to a hospitalization at [facility] where she underwent echocardiogram as well as Lexiscan stress test. She did not have cardiac catheterization. In addition to this patient has a long history of gastrointestinal problems including severe gastrointestinal reflux disease along with recurrent and chronic pancreatitis and gastritis. Patient denies vomiting Objective Vital signs: Temp Pulse Resp BP Pulse Ox 97.7 F 61 15 111/75 95 01/13/18 08:00 01/14/18 04:00 01/13/18 22:00 01/14/18 04:00 01/14/18 04:00 Hospital Course Hospital Course: Was admitted and ruled out for [place] serial enzymes. On the he underwent Lexiscan stress testing which was abnormal and indicative of both anterior and inferior ischemia. On the the patient underwent cardiac catheterization by Dr. Sierra with results as follows: MPRESSION: 1. Severe 2 vessel coronary artery disease as described above which correlated perfectly to the abnormal Myoview with both anterior and inferior ischemia 2. Successful stenting the proximal to mid LAD stent severe disease reduced to 0% with 2 drug-eluting stents 3. Successful stenting of the proximal to mid dominant right coronary artery severe disease reduced to 0% with 1 drug-eluting stent 4. Normal ejection fraction 5. Mildly elevated LVEDP PLAN: 1. Brilinta and aspirin 2. LDL less than 55 3. Risk factor modification 4. Cardiac rehabilitation 5. Avoidance of tobacco products 6. Aggressive risk factor modification After successful stenting patient was monitored overnight. She maintained O2 sats on oxygen which she also wears at home. She not have any further chest pain. Patient was discharged home. Results Labs on day of discharge: Labs from last 24 hours 01/14/18 01/13/18 01/13/18 05:50 13:06 12:48 Activated Clotting Time 273 H* 283 H* Sodium 142 Potassium 3.7 Chloride 104 Carbon Dioxide 33 H Anion Gap 8.7 BUN 10 D Creatinine 0.94 Estimated Creat Clear 115 Estimated GFR 61 Est GFR ( Amer) 74 Glucose 99 DS: Diagnosis - Discharge Diagnosis (1) Unstable angina Status: Acute (2) Coronary artery disease Status: Acute (3) Chest pain Status: Acute (4) Tobacco use Status: Acute (5) COPD (chronic obstructive pulmonary disease) Status: Acute (6) Hypertension Status: Acute (7) Hyperlipidemia Status: Acute (8) History of CVA (cerebrovascular accident) Status: Acute (9) Noncompliance with medication regimen Status: Acute Discharge Plan - Patient Discharge Instructions ACTIVITY: Continue current activity DIET: continue same diet - Follow up Plan Follow up with: Rohit Sierra MD [Staff Physician] - Oskar Donovan MD [Staff Physician] - 1 week Disposition: Home, Self-Assisted Medications: Home Medications Medication Instructions Recorded Confirmed Type ALPRAZolam [Xanax 1mg tab] 1 mg PO BID 01/11/18 01/11/18 History Atorvastatin Calcium [Lipitor 40mg 40 mg PO HS 01/11/18 01/12/18 History Tablet] Duloxetine HCl [Cymbalta] 60 mg PO BID 01/11/18
--- NOTE | 2018-01-14 07:23 | P.DS_ITS ---
General - General Admission date: 01/11/18 Discharge date: 01/14/18 HPI HPI: 57-year-old female presented to the emergency department with chest tightness. 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 She was on her way to get her grandchild yesterday and was emotionally upset and developed chest tightness with associated shortness of breath. She had symptoms for approximately an hour before deciding to seek treatment at the emergency department. She states symptoms started to improve in the emergency department but her chest tightness did not actually go away until she fell asleep and awoke this morning free of any chest discomfort. She is has associated nausea as well as shortness of breath. Patient had a similar episode 6 months ago which led to a hospitalization at [facility] where she underwent echocardiogram as well as Lexiscan stress test. She did not have cardiac catheterization. In addition to this patient has a long history of gastrointestinal problems including severe gastrointestinal reflux disease along with recurrent and chronic pancreatitis and gastritis. Patient denies vomiting Objective Vital signs: Temp Pulse Resp BP Pulse Ox 97.7 F 61 15 111/75 95 01/13/18 08:00 01/14/18 04:00 01/13/18 22:00 01/14/18 04:00 01/14/18 04:00 Hospital Course Hospital Course: Was admitted and ruled out for [place] serial enzymes. On the he underwent Lexiscan stress testing which was abnormal and indicative of both anterior and inferior ischemia. On the the patient underwent cardiac catheterization by Dr. Sierra with results as follows: MPRESSION: 1. Severe 2 vessel coronary artery disease as described above which correlated perfectly to the abnormal Myoview with both anterior and inferior ischemia 2. Successful stenting the proximal to mid LAD stent severe disease reduced to 0% with 2 drug-eluting stents 3. Successful stenting of the proximal to mid dominant right coronary artery severe disease reduced to 0% with 1 drug-eluting stent 4. Normal ejection fraction 5. Mildly elevated LVEDP PLAN: 1. Brilinta and aspirin 2. LDL less than 55 3. Risk factor modification 4. Cardiac rehabilitation 5. Avoidance of tobacco products 6. Aggressive risk factor modification After successful stenting patient was monitored overnight. She maintained O2 sats on oxygen which she also wears at home. She not have any further chest pain. Patient was discharged home. Results Labs on day of discharge: Labs from last 24 hours 01/14/18 01/13/18 01/13/18 05:50 13:06 12:48 Activated Clotting Time 273 H* 283 H* Sodium 142 Potassium 3.7 Chloride 104 Carbon Dioxide 33 H Anion Gap 8.7 BUN 10 D Creatinine 0.94 Estimated Creat Clear 115 Estimated GFR 61 Est GFR ( Amer) 74 Glucose 99 DS: Diagnosis - Discharge Diagnosis (1) Unstable angina Status: Acute (2) Coronary artery disease Status: Acute (3) Chest pain Status: Acute (4) Tobacco use Status: Acute (5) COPD (chronic obstructive pulmonary disease) Status: Acute (6) Hypertension Status: Acute (7) Hyperlipidemia Status: Acute (8) History of CVA (cerebrovascular accident) Status: Acute (9) Noncompliance with medication
[2018-01-14 08:00] VITALS: BP 154/85; PULSE 70; PULSE 76; RESP 20; O2SAT 93
--- NOTE | 2018-01-14 08:58 | HMH.PNCARD ---
Subjective Date: 01/14/18 Time: 08:58 Principal diagnosis: CAD Interval history: 57 yo WF in NAD. States she is feeling much better and ready to go home. Review of Systems - *Cardiovascular Denies chest pain - *Respiratory Denies shortness of breath - *Gastrointestinal Denies abdominal pain - *Musculoskeletal Reports back pain - *Neurologic Denies seizure-like activity Meds Home Medications Medication Instructions Recorded Confirmed Type ALPRAZolam [Xanax 1mg tab] 1 mg PO BID 01/11/18 01/11/18 History Atorvastatin Calcium [Lipitor 40mg 40 mg PO HS 01/11/18 01/12/18 History Tablet] Duloxetine HCl [Cymbalta] 60 mg PO BID 01/11/18 01/11/18 History Montelukast Sodium [Singulair 10mg 10 mg PO HS 01/11/18 01/12/18 History tablet] Omeprazole Magnesium [Prilosec Otc 20 mg PO DAILY 01/11/18 01/11/18 History 20mg Tab] Trazodone HCl 150 mg PO HS 01/11/18 01/11/18 History Metoprolol Succinate 100 mg PO DAILY 01/12/18 01/12/18 History cephALEXin [cephALEXin 500mg 500 mg PO Q6H 01/12/18 01/12/18 History capsule] Allergies Allergy/AdvReac Type Severity Reaction Status Date / Time codeine [CODEINE] Allergy Unknown N/V Verified 01/12/18 20:41 ketorolac [KETOROLAC] Allergy Unknown Unknown Verified 01/12/18 20:41 allergy reaction meperidine [MEPERIDINE] Allergy Unknown Unknown Verified 01/12/18 20:41 allergy reaction tramadol [TRAMADOL] Allergy Unknown Unknown Verified 01/12/18 20:41 allergy reaction Exam Vital signs and Labs for Last 24 Hours: Temp Pulse Resp BP Pulse Ox 97.7 F 76 20 154/85 93 L 01/13/18 08:00 01/14/18 08:00 01/14/18 08:00 01/14/18 08:00 01/14/18 08:00 Laboratory Results - last 24 hr 01/13/18 12:48: Activated Clotting Time 283 H* 01/13/18 13:06: Activated Clotting Time 273 H* 01/14/18 05:50: Sodium 142, Potassium 3.7, Chloride 104, Carbon Dioxide 33 H, Anion Gap 8.7, BUN 10 D, Creatinine 0.94, Estimated Creat Clear 115, Estimated GFR 61, Est GFR ( Amer) 74, Glucose 99 I & O for Last 24 hours: Intake & Output 01/11/18 01/12/18 01/13/18 01/14/18 11:59 11:59 11:59 11:59 Intake Total 397 / 397 870 / 870 Output Total 400 / 400 700 / 700 Balance -3 / -3 170 / 170 Weight 242 lb 3 oz 245 lb 7 oz 244 lb - *Routine Respiratory Exam Present: diminished air movement - *Routine Cardiovascular Exam Present: RRR - *Routine Extremities Exam Absent: edema Plan - Patient/Caregiver Discharge Instructions Activity: agree with discharge home on DAPT and statin. - Follow Up Plan Follow up with: Rohit Sierra MD [Staff Physician] - Oskar Donovan MD [Staff Physician] - 1 week
== END 2018-01-14 10:23 | disposition home or self-care (01) ==
LOC: ER 21:33 → ICU 23:53
PROVIDERS: Internal Medicine; Admitting Provider Emergency Medicine; Emergency Provider Emergency Medicine; Family Provider Nurse Practitioner Family; PCP Nurse Practitioner Family; Visit Provider Family Medicine
DX: R07.9 Chest pain, unspecified (principal); I25.119 Atherosclerotic heart disease of native coronary artery with unspecified angina pectoris; J44.9 Chronic obstructive pulmonary disease, unspecified
CPT/HCPCS: 36415; 71046; 78452; 80048; 80053; 80061; 81001; 82150; 82550; 82553; 83690; 84484; 85025; 85347; 85610; 87275; 87276; 92928; 93005; 93017; 93041; 93306; 93458; 94760; 94761; 96374; 96375; 99152; 99153; 99282; A9502; C1725; C1769; C1876; C9600; G0378; J0595; J1644; J2785; Q9967

== ENCOUNTER 2018-02-02 10:03 | Emergency (ER) | payer MEDICARE, MEDICAID, SELFPAY ==
[2018-02-02 10:13] VITALS: BP 162/110; PULSE 64; RESP 22; TEMP 36.8; O2SAT 97; BMI 37.9
--- NOTE | 2018-02-02 10:40 | NVE_ITS ---
Venous Exam Indications: 729.5 Pain in limb. IMPRESSIONS 1. There is no evidence of significant Reflux. 2. No evidence of deep or superficial vein thrombosis involving the right lower extremity Right lower extremity venous duplex evaluation. Doppler flow study including spectral analysis, color and mckenzie scale imaging. Location: Bedside. Patient status: Emergency department. CRITICAL FINDINGS - Reported to: MARY OZUNA - Read back and verified. - 02/02/18 - 1130 - NONE Tables: Venous flow and imaging: + +-------+ + Location Overall Flow properties + +-------+ + Right common femoral Patent Normal phasicity; spontaneous; normal augmentation; compressible + +-------+ + Right saphenofemoral junction Patent Compressible + +-------+ + Right profunda femoral Patent Compressible + +-------+ + Right femoral Patent Normal phasicity; spontaneous; normal augmentation; compressible + +-------+ + Right greater saphenous Patent Normal phasicity; spontaneous; normal augmentation; compressible + +-------+ + Right popliteal Patent Normal phasicity; spontaneous; normal augmentation; compressible + +-------+ + Right posterior tibial Patent Compressible + +-------+ + Right peroneal Patent Compressible + +-------+ + Right gastrocnemius Patent Compressible + +-------+ + Right soleal Patent Compressible + +-------+ + (Report amended ) Electronically signed by: Wili Arriola [id number]
--- NOTE | 2018-02-02 11:48 | HMH.EDEXTP ---
ED Disposition Clinical Impression: Ankle sprain and strain Disposition: Home, Self-Care Condition on Discharge: Good Instructions: Sprain Additional Instructions: Please take [id number] Tylenol every 4-6 hours as needed for pain, follow-up with PCP if not better within 2 days. Referrals: Laura Jean APRN [Primary Care Provider] - Time of Disposition: 11:49 - Critical Care Critical Care Time: No Attestation: On 02/02/18, the high probability of a clinically significant, sudden or life threatening deterioration of the following system(s) required my full and direct attention, intervention and personal management. The time I documented below is in addition to time spent performing reported procedures but includes the following listed in this critical care notation. Medical Decision Making - Medical Records Medical records reviewed: Yes: I reviewed the patient's medical records. Vital Signs: 02/02/18 10:13 02/02/18 11:54 Temperature 98.3 F 98.3 F Temperature Source Oral Pulse Rate 67 Pulse Rate [Right Radial] 64 Respiratory Rate 22 24 Blood Pressure 198/118 Blood Pressure [Right Arm] 162/110 Blood Pressure Mean [Right Arm] 127 Blood Pressure Source [Right Arm] Automatic Cuff Blood Pressure Position [Right Arm] Sitting 02 Sat by Pulse Oximetry 97 Oxygen Delivery Method Room Air Room Air Orders (Tests/Meds): ED MEDICATIONS Discontinued Medications Generic Name Dose Route Start Last Admin Trade Name Dannyq PRN Reason Stop Dose Admin Clonidine HCl 0.2 mg 02/02/18 13:00 02/02/18 12:02 Clonidine 0.2mg Tablet PO 03/04/18 12:59 0.2 mg TID CRISTOPHER Administration - US Data US Images: Lower Extremity (Right) ED US Reviewed: Yes: I have reviewed the patient's US results, I have viewed radiologist's interpretation Preliminary Findings: Normal/NAD - Delroy Inquiry Pt receiving controlled substance: No - Reevaluation(s) Time: 11:45 Reevaluation #1: Upon reevaluation patient is medically stable, no acute distress. Advised patient of results obtained, need to follow-up with PCP for reevaluation per discharge instructions. Extremity Problem HPI - General Chief complaint: Extremity Injury, Lower Stated complaint: right ankle pain possible blood clot Mode of Arrival: Wheelchair Limitations: No Limitations Description of Symptoms (Recalled from ER Triage Doc. by RN): REPORTS HISTORY OF BLOOD CLOTS IN RIGHT ANKLE IN 2004. REPORTS PAIN IN LATERAL RIGHT ANKLE AND CALF MUSCLE SINCE YESTERDAY. NO REDNESS OR WARMTH NOTED. SOME SWELLING NOTED TO RIGHT ANKLE. HEART STENTS PLACED TWO WEEKS AGO. - History of Present Illness HPI Narrative: Patient has a history of prior lower extremity DVT, in the past, which was successfully treated with Coumadin for 6 months. She woke up this morning with right ankle pain, nontraumatic. Patient denies any chest pain, denies any shortness of breath, any fever, any productive cough. MD Complaint: extremity pain (Right ankle pain) Onset (ago): hour(s) (6) Consistency: constant Location: right, other (Ankle) Severity scale (1-10): 4 Quality: burning Relieving factors: nothing Associated symptoms: denies other symptoms - Related Data Home Medications Medication Instructions Recorded Confirmed ALPRAZolam [Xanax 1mg tab] 1 mg PO BID 01/11/18 02/02/18 Atorvastatin Calcium [Lipitor 40mg 40 mg PO HS 01/11/18 02/02/18 Tablet] Duloxetine HCl [Cymbalta] 60 mg PO BID 01/11/18 02/02/18 Montelukast Sodium [Singulair 10mg 10 mg PO HS 01/11/18 02/02/18 tablet] Omeprazole Magnesium [Prilosec Otc 20 mg PO DAILY 01/11/18 02/02/18 20mg Tab] Trazodone HCl 150 mg PO HS 01/11/18 02/02/18 Metoprolol Succinate 100 mg PO DAILY 01/12/18 02/02/18 Aspirin [Aspirin 81mg EC Tab] 81 mg PO DAILY 02/02/18 02/02/18 Lisinopril [Zestril 10mg Tab] 10 mg PO DAILY 02/02/18 02/02/18 Ticagrelor [Brilinta 90mg Tablet] 90 mg PO BID 02/02/18 02/02/18
[2018-02-02 11:54] VITALS: BP 198/118; PULSE 67; RESP 24; TEMP 36.8; O2SAT 97
== END 2018-02-02 12:02 | disposition home or self-care (01) ==
PROVIDERS: Emergency Provider Emergency Medicine; Family Provider Nurse Practitioner Family; PCP Nurse Practitioner Family
DX: S93.401A Sprain of unspecified ligament of right ankle, initial encounter (principal); Z86.718 Personal history of other venous thrombosis and embolism; E10.9 Type 1 diabetes mellitus without complications; I73.9 Peripheral vascular disease, unspecified; F17.210 Nicotine dependence, cigarettes, uncomplicated; I10 Essential (primary) hypertension; K21.9 Gastro-esophageal reflux disease without esophagitis; Z86.14 Personal history of Methicillin resistant Staphylococcus aureus infection; Z79.82 Long term (current) use of aspirin; Z95.0 Presence of cardiac pacemaker
CPT/HCPCS: 93971; 99282

== ENCOUNTER 2018-02-04 13:40 | Observation (INO) | payer MEDICARE, MEDICAID, SELFPAY ==
[2018-02-04] VITALS (9 sets, daily range): BP systolic 93–124; BP diastolic 66–89; PULSE 57–67; RESP 18–22; TEMP 35.8–36.7; O2SAT 91–95; BMI 37.9; BMI 38.5
--- NOTE | 2018-02-04 13:40 | PC.NURSE ---
Recieved report from LAITH Rogers at [facility] on pt, stated pt came to their facility reporting chest pain.
--- NOTE | 2018-02-04 13:42 | PC.NURSE ---
Pt arrived per [facility], port a cath assessed in R chest. [facility] had pt on a Heparin drip at 1500 units/hr that was started at [facility] ER per report. Reported to ER MD of heparin drip and asked if he would like to continue drip at same rate, stated yes to continue it.
--- NOTE | 2018-02-04 13:42 | HMH.EDGENADL ---
ED Disposition Clinical Impression: Chest pain Qualifiers: Chest pain type: precordial pain Qualified Code(s): R07.2 - Precordial pain Disposition: Still a Patient Condition on Discharge: Fair Referrals: Laura Jean APRN [Primary Care Provider] - - Critical Care Critical Care Time: No Attestation: On , the high probability of a clinically significant, sudden or life threatening deterioration of the following system(s) required my full and direct attention, intervention and personal management. The time I documented below is in addition to time spent performing reported procedures but includes the following listed in this critical care notation. Medical Decision Making Vital Signs: 02/04/18 13:40 Temperature 97.9 F Temperature Source Oral Pulse Rate [Right Brachial] 65 Respiratory Rate 22 Blood Pressure [Right Arm] 123/89 Blood Pressure Mean [Right Arm] 100 Blood Pressure Source [Right Arm] Automatic Cuff Blood Pressure Position [Right Arm] Sitting 02 Sat by Pulse Oximetry 92 L Oxygen Delivery Method Room Air Oxygen Flow Rate (LPM) 2 Orders (Tests/Meds): ED MEDICATIONS Discontinued Medications Generic Name Dose Route Start Last Admin Trade Name Freq PRN Reason Stop Dose Admin Morphine Sulfate 4 mg 02/04/18 14:01 02/04/18 14:26 Morphine 4mg/Ml Syringe IV 02/04/18 14:02 4 mg ONCE ONE Administration ORDERS Category Date Time Status Troponin I Stat Lab 02/04/18 14:20 Received - ECG Data Tracing #1 EKG interpreted by Rusty Patel MD: Rhythm: sinus Rate: 64 [place]: normal Ectopy: none Conduction: normal ST Segment Changes: none T Wave Changes: Nonspecific Q Waves: none No evidence of acute ischemia or injury EKG from [facility] emergency department reviewed. Current EKG at our facility is unchanged from that tracing. - Delroy Inquiry Pt receiving controlled substance: Yes Delroy was queried for this patient: No Reason not queried -: Emergent pt cond-no time Risks and benefits of using a controlled substance: were not discussed with pt by me Medical Decision Making Narrative: 2:05 PM: I have discussed the case with Dr. Donovan who agrees to admit the patient to the hospital. We discussed the patient's clinical information, including history, exam, laboratory and radiology results and ED course. Per hospital procedure, I will write temporary bridge inpatient orders on the patient. Specific orders requested by the admitting physician: He says that he knows that the patient has been doing chest pain for the past week. He does not suspect cardiac. He request the patient be started on Protonix 40 mg IV twice daily and her pain treated with [place]. 2:10 PM: CECIL Rothman, present for Dr. Sierra. General Adult HPI - General Stated complaint: chest pain - History of Present Illness HPI narrative: The patient is sent from [facility] emergency department by ambulance as an emergency department to emergency department transfer. She comes of chest pain which she says came on at 11 AM while at rest. Associated with shortness of breath, nausea, diaphoresis. Pain is currently 6/10. She describes it as a pressure in the center of her chest. She says that she had 3 cardiac stents placed [address] Sierra for chest pain and also says she was in atrial fibrillation at that time. She says that the pain today is the same as the pain she was having then. Cardiac workup was negative at [facility] emergency department. Dr. Sierra was reportedly contacted and arrangements made for transfer to our emergency department so that she could be admitted to her primary care provider here. - Related Data Home Medications Medication Instructions Recorded Confirmed ALPRAZolam [Xanax 1mg tab] 1 mg PO BID 01/11/18 02/02/18 Atorvastatin Calcium [Lipitor 40mg 40 mg PO HS 01/11/18 02/02/18 Tablet] Duloxetine HCl [Cymbalta] 60 mg PO
--- NOTE | 2018-02-04 14:04 | PC.NURSE ---
GLORIA JUAREZ speaking with Dr. Donovan
--- NOTE | 2018-02-04 14:05 | PC.NURSE ---
CECIL Aldridge at BS
--- NOTE | 2018-02-04 14:19 | HMH.CNCARD ---
History of Present Illness Consult date: 02/04/18 Requesting physician: Oskar Donovan Consult reason: chest pain Chief complaint: chest pain Additional Medical History:: 1. Coronary disease A. Hospitalization for chest pain, 01/2018 B. Abnormal stress test indicative of reversible ischemia C. Cardiac catheterization, 01/2018, results: ANGIOGRAPHIC RESULTS: 1. The left main artery normal 2. The left anterior descending artery has a proximal concentric 70% stenosis best appreciated and the ONEILL caudal view. The remaining vessel has mild luminal irregularities. The first large diagonal artery has an ostial proximal 60% stenosis. 3. The ramus intermedius is a large vessel with a ostial proximal 40-50% stenosis 4. The circumflex artery is a nondominant vessel with mild 20-30% proximal disease 5. The right coronary artery is a dominant vessel with proximal 30% followed by additional concentric 70% followed by additional 50% mid vessel stenosis 6. The ONEILL ventriculogram reveals normal 65% 7. The left ventricular end-diastolic pressure 20 mmHg IMPRESSION: 1. Severe 2 vessel coronary artery disease as described above which correlated perfectly to the abnormal Myoview with both anterior and inferior ischemia 2. Successful stenting the proximal to mid LAD stent severe disease reduced to 0% with 2 drug-eluting stents 3. Successful stenting of the proximal to mid dominant right coronary artery severe disease reduced to 0% with 1 drug-eluting stent 4. Normal ejection fraction 5. Mildly elevated LVEDP 2. Hypertension 3. History of pancreatitis 4. Tobacco use 5. Obesity History of present illness: 57-year-old white female with recent hospitalization for chest pain for which she underwent stress testing that revealed evidence of ischemia. Subsequent cardiac catheterization revealed two-vessel coronary disease with subsequent placement of drug-eluting stent to the LAD and RCA. Patient was discharged on aspirin and Brilinta. Patient relates she has been doing well until today while at rest she developed substernal chest discomfort that would radiate around to the back and some discomfort into the neck. She does relate some nausea but no vomiting or diarrhea. Symptoms are worse with deep breathing. She was seen in the [facility] emergency department with initial troponin noted to be normal. Patient was started on nitroglycerin paste without change in symptoms. Contact was made with Dr. Sierra by Dr. Corcoran with recommendation to transfer to our emergency room for further evaluation and treatment. She has been started on heparin drip without change in symptoms. In the emergency room the patient is in only mild distress. Reportedly has received 8 mg of morphine prior to transfer and is somewhat sleepy. EKG here shows sinus rhythm with nonspecific ST-T abnormalities consistent with previous EKGs. No acute changes noted. Labs here are pending at this time. [facility] History Medical History: Reports:: Gastroesophageal Reflux Disease(GERD), Peripheral Artery Disease Denies:: Cancer, Diabetes Mellitus Type 1, Diabetes Mellitus Type 2, Internal Pacemaker, MRSA Other Medical History: Reports: Hoarseness Other Surgeries: Yes: Colonoscopy, EGD. No: Pacemaker Amputation: No - *Social History Smoking Status: Current every day smoker Tobacco Type: cigarettes # Packs/Day (cigarettes): 1 #Yrs smoked (if former smoker): 50 Alcohol Intake: never Alcohol Intake Frequency:: a few times a week Occupational Status: unemployed Housing: house Household Members: spouse, children *Family Hx:: Hyperlipidemia, Hypertension, Stroke Meds Home Medications Medication Instructions Recorded Confirmed Type ALPRAZolam [Xanax 1mg tab] 1 mg PO BID 01/11/18 02/02/18 History Atorvastatin Calcium [Lipitor 40mg 40 mg PO HS 01/11/18 02/02/18 History Tablet] Duloxetine HCl [Cymbalta] 60 mg PO BID 01/11/18 02/02/18 History Montelukast Sodium [
--- NOTE | 2018-02-04 14:25 | P.CONS_ITS ---
History of Present Illness Consult date: 02/04/18 Requesting physician: Oskar Donovan Consult reason: chest pain Chief complaint: chest pain Additional Medical History:: 1. Coronary disease A. Hospitalization for chest pain, 01/2018 B. Abnormal stress test indicative of reversible ischemia C. Cardiac catheterization, 01/2018, results: ANGIOGRAPHIC RESULTS: 1. The left main artery normal 2. The left anterior descending artery has a proximal concentric 70% stenosis best appreciated and the ONEILL caudal view. The remaining vessel has mild luminal irregularities. The first large diagonal artery has an ostial proximal 60% stenosis. 3. The ramus intermedius is a large vessel with a ostial proximal 40-50% stenosis 4. The circumflex artery is a nondominant vessel with mild 20-30% proximal disease 5. The right coronary artery is a dominant vessel with proximal 30% followed by additional concentric 70% followed by additional 50% mid vessel stenosis 6. The ONEILL ventriculogram reveals normal 65% 7. The left ventricular end-diastolic pressure 20 mmHg IMPRESSION: 1. Severe 2 vessel coronary artery disease as described above which correlated perfectly to the abnormal Myoview with both anterior and inferior ischemia 2. Successful stenting the proximal to mid LAD stent severe disease reduced to 0% with 2 drug-eluting stents 3. Successful stenting of the proximal to mid dominant right coronary artery severe disease reduced to 0% with 1 drug-eluting stent 4. Normal ejection fraction 5. Mildly elevated LVEDP 2. Hypertension 3. History of pancreatitis 4. Tobacco use 5. Obesity History of present illness: 57-year-old white female with recent hospitalization for chest pain for which she underwent stress testing that revealed evidence of ischemia. Subsequent cardiac catheterization revealed two-vessel coronary disease with subsequent placement of drug-eluting stent to the LAD and RCA. Patient was discharged on aspirin and Brilinta. Patient relates she has been doing well until today while at rest she developed substernal chest discomfort that would radiate around to the back and some discomfort into the neck. She does relate some nausea but no vomiting or diarrhea. Symptoms are worse with deep breathing. She was seen in the [facility] emergency department with initial troponin noted to be normal. Patient was started on nitroglycerin paste without change in symptoms. Contact was made with Dr. Sierra by Dr. Corcoran with recommendation to transfer to our emergency room for further evaluation and treatment. She has been started on heparin drip without change in symptoms. In the emergency room the patient is in only mild distress. Reportedly has received 8 mg of morphine prior to transfer and is somewhat sleepy. EKG here shows sinus rhythm with nonspecific ST-T abnormalities consistent with previous EKGs. No acute changes noted. Labs here are pending at this time. [facility] History Medical History: Reports:: Gastroesophageal Reflux Disease(GERD), Peripheral Artery Disease Denies:: Cancer, Diabetes Mellitus Type 1, Diabetes Mellitus Type 2, Internal Pacemaker, MRSA Other Medical History: Reports: Hoarseness Other Surgeries: Yes: Colonoscopy, EGD. No: Pacemaker Amputation: No - *Social History Smoking Status: Current every day smoker Tobacco Type: cigarettes # Packs/Day (cigarettes): 1 #Yrs smoked (if former smoker): 50 Alcohol Intake: never Alcohol Intake Frequency:: a few times a week Occupational Status: unemployed Housing: house Household Members: spouse, children *Family Hx:: Hyperlipidemia, Hypertension, Stroke
[2018-02-04 14:41] LABS: Troponin I < 0.02 ng/ml (0.00-0.06)
--- NOTE | 2018-02-04 15:00 | PC.NURSE ---
contacted pharmacy to verify Heparin drip, spoke with Ekta, stated would place order for drip, [facility]
--- NOTE | 2018-02-04 15:13 | PC.NURSE ---
report called to LAITH Elizabeth on second floor at this time.
[2018-02-04 16:09] LABS: Troponin I < 0.02 ng/ml (0.00-0.06)
--- NOTE | 2018-02-04 18:03 | PC.NURSE ---
57 YEAR OLD WHITE FEMALE PRESENTED TO THE ER AND WAS A TRANSFER FROM [facility]. SHE HAD A CHIEF COMPLAINT OF CHEST PAIN, HISTORY OF COPD, CORONARY DISEASE AND HAD A HEART CATH IN JAN 2018, SHE STATES SHE HAS SOB WITH ACTIVITY AND OCCASIONAL NAUSEA. DR. MONTILLA WAS CONSULTED AND SHE IS SCHEDULED FOR A LEFT HEART CATH IN THE AM ON 02/05/18. SHE IS DOING WELL AFTER ADMISSION TO THE FLOOR. SHE WILL BE NPO AFTER MIDNIGHT AND WILL NEED A CONSENT SIGNED FOR THE PROCEDURE. SHE IS ON 2 LITERS OF OXYGEN PER NASAL CANULA AND IS ON A HEART MONITOR WITH CONTINUOUS PULSE OX. SHE IS ON A HEPARIN DRIP 1500UNITS AT 30ML AN HOUR. HER LUNGS ARE DIMINISHED IN THE BASES. WE DISCUSSED THE PATIENTS ORDERS AND MEDICATIONS, PATIENT STATES SHE CANNOT TOLERATE HYDROCODONE PAIN PILLS AND REQUEST TO HAVE MORPHINE FOR HER PAIN. DR. HERNANDEZ WAS NOTIFIED FOR HE WAS CLINICAL SOCIAL WORKER FOR DR. ARZOLA AND THE MORPHINE WAS ORDERED 4 MG EVERY 4 HOURS PRN NEEDED FOR PAIN. WILL CONTINUE TO MONITOR. NIOC PEREZ, MSN, RN
[2018-02-04 18:37] LABS: Troponin I < 0.02 ng/ml (0.00-0.06)
[2018-02-04 18:45] LABS: Activated Partial Thrombo Time 214.5 seconds (23.6-34.0)
--- NOTE | 2018-02-04 19:36 | PC.NURSE ---
late entry: notified dr mosley who is communication spec at this time. pt received 4mg of iv morphine, pt is experiencing mild apena, and states that she has a history of sleep apnea. pt is reported to be slurring her words during conversation. pt was noted during admission by adelso story to have difficulty staying awake during questions. pt is in NAD at this time, but md notified of situation. dr mosley gave order for narcan prn, and d/c morphine related to issues with respiratory depression.
--- NOTE | 2018-02-04 20:00 | PC.NURSE ---
REPORT CALLED FROM ER, MICHELA KING RN, ON THIS PATIENT, THIS PATIENT WAS TRANSFERED FROM [facility] SHE HAD RECEIVED 4000U BOLUS OF HEPARIN THERE AND CONTINUED ON IV HEPARIN, SHE WAS EVALUATED IN THE ER AND WAS SENT TO THE FLOOR ON 1500U OF HEPARIN AT 30ML PER HOUR. SHE RECEIVED MS 4 MG IV AND NITROPASTE APPLIED IN THE ER. VITAL SIGNS 124/76, HR 67, TEMP 98.0, AND OXYGEN AT 91% ON 2 LITERS OF OXYGEN PER NASAL CANULA. SHE RATED HER PAIN A 6/10 IN THE ER PER MICHELA KING RN. SHE HAS A PORT A CATH AND HEPARIN IS INFUSING AT THIS TIME. SASHA CORREA, RN I RECEIVED A CALL FROM MARIO AT THE PHARMACY WITH A CRITICAL LAB PTT OF 215 AND TO TURN HEPARIN OFF. AN ORDER RECEIVED FROM BOBBY COWAN FROM PHARMACY REPEAT PTT AT 2100 AND CALL WITH RESULTS FOR FURTHER DOSAGE. NICO PEREZ, SASHA, RN DR. ARZOLA NOTIFIED OF PTT RESULT AND HEPARIN. SASHA CORREA, RN
--- NOTE | 2018-02-04 20:06 | PC.NURSE ---
1600 vitals signs were recorded at 1540. new admit, did not want shower, family at bedside, no needs at this time. gave handoff report, pt on telemetry and oxygen (nasal cannula) Pt independent voiced by pt and family.
--- NOTE | 2018-02-04 20:31 | PC.NURSE ---
LATE ENTRY ON [address] HERNANDEZ HE WAS UROLOGIST MD FOR DR. ARZOLA RELATED TO PAIN MEDICATION ORDER. THE PATIENT HAD MS 4 MG IN THE ER FOR CHEST PAIN. PATIENT STATES SHE COULD NOT TAKE THE PO MEDICATION AND AN ORDERED WAS RECEIVED FOR MS 4 MG IV EVERY 4 HOURS PRN FOR PAIN. ORDER FAXED TO PHARMACY. NICO PEREZ, MSN, RN
--- NOTE | 2018-02-04 20:35 | PC.NURSE ---
AT [address] ARZOLA OF THE ERROR THAT WAS FOUND IN THE MIXTURE OF HEPARIN LABEL STATES IN 500ML BAG AND THE BAG STATES 250ML BAG. NICO PEREZ, MSN, RN
[2018-02-04 21:23] LABS: INR 0.99 (0.9-1.1); Prothrombin Time 10.7 seconds (9.4-11.8)
[2018-02-04 21:30] LABS: Troponin I < 0.02 ng/ml (0.00-0.06)
[2018-02-04 21:59] LABS: Activated Partial Thrombo Time 63.1 seconds (23.6-34.0)
--- NOTE | 2018-02-04 22:45 | PC.NURSE ---
MARIO NAQVI PHARMICIST CALLED. RECEIVED ORDER TO RESTART HEPARIN AT 1250 UNITS PER HOUR, 25ML PER HOUR. REPEAT PTT AT 4AM.
[2018-02-05] VITALS (15 sets, daily range): BP systolic 103–160; BP diastolic 62–98; PULSE 56–74; RESP 16–20; TEMP 36.4–37.1; O2SAT 90–99
--- NOTE | 2018-02-05 | IR_ITS ---
CARDIAC CATHETERIZATION DATE OF CATHETERIZATION:02/05/2018 8:13 AM PROCEDURES: 1. Left heart catheterization 2. Left ventriculogram 3. Selective coronary angiogram INDICATION FOR TEST: 1. Unstable angina 2. Known coronary artery disease Informed consent was obtained prior to the procedure. COMPLICATIONS: None ESTIMATED BLOOD LOSS: Less than 10 ml. TECHNIQUE: One percent lidocaine used to anesthetize the right anterior aspect of the wrist. The right radial artery was accessed via the Seldinger technique. A 6 Bengali sheath was placed in the right radial artery. 2.5 mg of verapamil, 800 mcg of nitroglycerin and 5000 U Heparin were given through the arterial sheath. The trap catheter was also used to perform left heart catheterization and left ventriculography. At the end of the procedure the patient was transferred to the post-op holding area in stable condition for arterial sheath removal. ANGIOGRAPHIC RESULTS: 1. The left main artery normal 2. The left anterior descending artery has an ostial 10-20% stenosis followed by a stent which is widely patent free of in-stent restenosis with excellent distal and proximal transitioning. Remaining LAD is free of significant disease. 3. The circumflex artery gives rise to a high ramus intermedius moderate to large in size which has mild proximal 10% stenoses while the circumflex artery has an ostial 10% and a proximal 20% stenosis 4. The right coronary artery is dominant and has ostial 10-20% stenosis proximal 20% stenoses mid vessel 20 and 30% stenoses. 5. The ONEILL ventriculogram reveals normal 65% 6. The left ventricular end-diastolic pressure 20 mmHg IMPRESSION: 1. Widely patent proximal LAD stent 2. Nonflow limiting coronary artery disease as described above 3. Normal ejection fraction 4. Elevated LVEDP consistent with diastolic dysfunction PLAN: 1. Risk factor modification 2. Medical management 3. Low-dose diuretics to decrease LVEDP 4. Maximize antianginal medications 5. Avoid tobacco products 6. Cardiac rehabilitation
[2018-02-05 04:38] LABS: Activated Partial Thrombo Time 200.5 seconds (23.6-34.0)
--- NOTE | 2018-02-05 05:08 | PC.NURSE ---
AT 0445 MARIO NAQVI PHARMICIST CALLED IN REGARDS TO HEPARIN GTT. PPT REMAINS ELEVATED. ORDERS TO STOP HEPARIN FOR 2 HOURS. RESTART RATE AT 700 UNITS PER HOUR, WHICH IS 14ML PER HOUR ON PUMP. REPEAT PTT 6 HOURS AFTER RESTART WHICH WILL BE AT 1PM.
--- NOTE | 2018-02-05 05:12 | PC.NURSE ---
PT EXTREMELY DROWSY ON INITIAL ASSESSMENT. KEPT FALLING ASLEEP LINING MECHANIC WAS QUESTIONING HER. PT HAS WORN 3L PER NC THROUGHOUT NIGHT. NSR ON TELEMTRY NOTED. PT KEPT NPO FOR HEART CATH TODAY. PT SIGNED PERMIT AND HAD NO QUESTIONS REGARDING PROCEDURE. PT RECEIVED PO LORTAB AROUND 2AM FOR CHEST DISCOMFORT THAT SHE RATED A 7 . NO ACUTE DISTRESS NOTED. WITHIN THE HOUR OF RECEIVING PO PAIN MED, PATIENT BACK TO SLEEP WITHOUT FURTHER COMPLAINTS OF CHEST DISCOMFORT. PT REMAINS ON HEPARIN GTT, CONTINUING TO ADJUST DOSAGE.
--- NOTE | 2018-02-05 07:14 | HMH.DCSUM ---
General - General Admission date: 02/04/18 Discharge date: 02/05/18 HPI HPI: 7-year-old white female with recent hospitalization for chest pain for which she underwent stress testing that revealed evidence of ischemia. Subsequent cardiac catheterization revealed two-vessel coronary disease with subsequent placement of drug-eluting stent to the LAD and RCA. Patient was discharged on aspirin and Brilinta. Patient relates she has been doing well until today while at rest she developed substernal chest discomfort that would radiate around to the back and some discomfort into the neck. She does relate some nausea but no vomiting or diarrhea. Symptoms are worse with deep breathing. She was seen in the [facility] emergency department with initial troponin noted to be normal. Patient was started on nitroglycerin paste without change in symptoms. Contact was made with Dr. Sierra by Dr. Corcoran with recommendation to transfer to our emergency room for further evaluation and treatment. She has been started on heparin drip without change in symptoms. In the emergency room the patient is in only mild distress. Reportedly has received 8 mg of morphine prior to transfer and is somewhat sleepy. EKG here shows sinus rhythm with nonspecific ST-T abnormalities consistent with previous EKGs. No acute changes noted. Labs here are pending at this time. Hospital Course Hospital Course: Patient was admttted on a heparin drip. Serial troponins were negative. On February 05 she underwent LHC with results and recommendations as follows : ANGIOGRAPHIC RESULTS: 1. The left main artery normal 2. The left anterior descending artery has an ostial 10-20% stenosis followed by a stent which is widely patent free of in-stent restenosis with excellent distal and proximal transitioning. Remaining LAD is free of significant disease. 3. The circumflex artery gives rise to a high ramus intermedius moderate to large in size which has mild proximal 10% stenoses while the circumflex artery has an ostial 10% and a proximal 20% stenosis 4. The right coronary artery is dominant and has ostial 10-20% stenosis proximal 20% stenoses mid vessel 20 and 30% stenoses. 5. The ONEILL ventriculogram reveals normal 65% 6. The left ventricular end-diastolic pressure 20 mmHg IMPRESSION: 1. Widely patent proximal LAD stent 2. Nonflow limiting coronary artery disease as described above 3. Normal ejection fraction 4. Elevated LVEDP consistent with diastolic dysfunction PLAN: 1. Risk factor modification 2. Medical management 3. Low-dose diuretics to decrease LVEDP 4. Maximize antianginal medications 5. Avoid tobacco products 6. Cardiac rehabilitation Objective Vital signs: Temp Pulse Resp BP Pulse Ox 97.9 F 63 18 153/78 95 02/05/18 05:05 02/05/18 05:05 02/05/18 05:05 02/05/18 05:05 02/05/18 05:05 Results Labs on day of discharge: Labs from last 24 hours 02/05/18 02/04/18 02/04/18 04:00 21:00 21:00 PT 10.7 INR 0.99 APTT 200.5 H* D 63.1 H* D Troponin I < 0.02 02/04/18 02/04/18 02/04/18 18:05 18:05 15:40 PT INR APTT 214.5 H* Troponin I < 0.02 < 0.02 DS: Diagnosis - Discharge Diagnosis (1) Chest pain Status: Acute (2) Coronary artery disease Status: Acute Discharge Plan - Patient Discharge Instructions ACTIVITY: Continue current activity DIET: continue same diet Patient Instructions: DI for Angina - Follow up Plan Follow up with: Rohit Sierra MD [Staff Physician] - Disposition: Home, Self-Nursing Home Medications: Home Medications Medication Instructions Recorded Confirmed Type ALPRAZolam [Xanax 1mg tab] 1 mg PO BID 01/11/18 02/04/18 History Atorvastatin Calcium [Lipitor 40mg 40 mg PO HS 01/11/18 02/04/18 History Tablet] Duloxetine HCl [Cymbalta] 60 mg PO BID 01/11/18 02/04/18 History Montelukast Sodium [Singulair 10mg 10 mg PO HS
--- NOTE | 2018-02-05 07:22 | HMH.PHAVTE ---
[facility] Pharmacy VTE Monitoring - Patient Demographics Admission date: 02/04/18 Report Date: 02/05/18 Time: 07:22 Allergies/Adverse Reactions: Patient Allergies codeine [CODEINE] Allergy (Unknown, Verified 02/02/18 10:24) N/V ketorolac [KETOROLAC] Allergy (Unknown, Verified 02/02/18 10:24) Unknown allergy reaction meperidine [MEPERIDINE] Allergy (Unknown, Verified 02/02/18 10:24) Unknown allergy reaction tramadol [TRAMADOL] Allergy (Unknown, Verified 02/02/18 10:24) Unknown allergy reaction Height: 1.68 m Weight: 108.21 kg Patient Problems: Current Active Problems Chest pain (Acute) History of pancreatitis (Acute) - VTE Risk Labs: VTE Related Lab Results PT 10.7 seconds (9.4-11.8) 02/04/18 21:00 INR 0.99 (0.9-1.1) 02/04/18 21:00 APTT 200.5 seconds (23.6-34.0) H* D 02/05/18 04:00 Was VTE Risk Assessment Performed: Yes VTE Score: 4 VTE Risk Level: Low Risk - Prophylaxis VTE Prophylaxis Ordered?: Yes Types of VTE Prophylaxis: TEDS Knee High, Pharmacological Location of Applied Device: Bilateral Lower Extremeties Pharmacologic Type: Other (BRILINTA) - VTE Diagnosis Confirmed Treatment or plan recommended: Continue Current Treatment
--- NOTE | 2018-02-05 07:47 | PC.NURSE ---
pt off unit for procedure
[2018-02-05 13:13] LABS: Activated Partial Thrombo Time 23.6 seconds (23.6-34.0)
== END 2018-02-05 13:39 | disposition home or self-care (01) ==
LOC: ER 14:14 → 2ND 15:38
PROVIDERS: Internal Medicine; Admitting Provider Family Medicine; Emergency Provider Emergency Medicine; Family Provider Nurse Practitioner Family; PCP Nurse Practitioner Family; Visit Provider Family Medicine
DX: R07.9 Chest pain, unspecified (principal); I25.110 Atherosclerotic heart disease of native coronary artery with unstable angina pectoris; Z72.0 Tobacco use; J44.9 Chronic obstructive pulmonary disease, unspecified; Z95.5 Presence of coronary angioplasty implant and graft; Z79.02 Long term (current) use of antithrombotics/antiplatelets
CPT/HCPCS: 36415; 84484; 85610; 85730; 93005; 93458; 96374; 99284; C1725; C1769; G0378; J1642; J1644; J2270; Q9967

== ENCOUNTER 2018-02-23 11:40 | Observation (INO) ==
[2018-02-23 12:49] LABS: Basophils # 0.1 K/mm3 (0-0.2); Basophils % 0.5 % (0.1-2.0); Eosinophils # 0.3 K/mm3 (0.0-0.4); Eosinophils % 2.3 % (0.1-12.0); Hematocrit 42.2 % (37.0-47.0); Hemoglobin 13.8 g/dL (12.2-16.2); Lymphocytes % 32.7 K/mm3 (10-50); Mean Corpuscular HGB Conc 32.7 g/dL (31.8-35.4); Mean Corpuscular Hemoglobin 29.9 pg (27.0-31.2); Mean Corpuscular Volume 91.5 fl (81-99); Mean Platelet Volume 9.1 fl (7.4-10.4); Monocytes # 0.4 K/mm3 (0.1-1.0); Monocytes % 3.3 % (1.7-9.3); Neutrophils # 7.4 K/mm3 (1.8-7.8); Neutrophils % 61.2 % (37.0-80.0); Platelet Count 295 K/mm3 (142-424); Red Blood Count 4.61 M/mm3 (4.20-5.40); Red Cell Distribution Width 13.4 % (11.5-17.5); White Blood Count 12.1 K/mm3 (4.8-10.8)
[2018-02-23 12:56] LABS: Albumin Level 3.2 gm/dL (3.4-5.0); Albumin/Globulin Ratio 0.8 (1.1-1.8); Anion Gap 9.9 mEq/L (5-15); Bilirubin,Total 0.3 mg/dL (0.2-1.0); Calcium 8.4 mg/dL (8.5-10.1); Globulin 4.1 gm/dl (1.3-3.2); Total Protein,Serum 7.3 gm/dL (6.4-8.2)
[2018-02-23 12:57] LABS: Potassium 2.9 mmoL/L (3.5-5.1)
--- NOTE | 2018-02-23 13:24 | Emergency Department Note ---
ED Disposition Clinical Impression: Hypokalemia, Dehydration, Gastroenteritis Nausea with vomiting, unspecified Qualifiers: Vomiting type: unspecified Vomiting Intractability: unspecified Qualified Code( s): R11.2 - Nausea with vomiting, unspecified Disposition: Admitted As Inpatient Condition on Discharge: Good Time of Disposition: 15:04 - Critical Care Critical Care Time: No Attestation: On 02/23/18, the high probability of a clinically significant, sudden or life threatening deterioration of the following system(s) required my full and direct attention, intervention and personal management. The time I documented below is in addition to time spent performing reported procedures but includes the following listed in this critical care notation. Total Critical Care Time: 60 My critical care processes included: Assessment & monitoring of V/S, Initial and Re-exams, Data Review/Interpretation, Coordinating Care, Medication Orders and management, Documentation Medical Decision Making - Medical Records Medical records reviewed: Yes: I reviewed the patient's medical records. - Delroy Inquiry Pt receiving controlled substance: No Vital Signs: 02/23/18 11:42 02/23/18 13:56 02/23/18 15:24 Temperature 98.7 F 98.2 F Temperature Source Oral Oral Pulse Rate Pulse Rate [Right Radial] 81 68 65 Respiratory Rate 20 20 20 Blood Pressure Blood Pressure [Right Arm] 95/63 94/63 105/70 Blood Pressure Mean [Right Arm] 73 73 81 Blood Pressure Source Blood Pressure Source [Right Arm] Automatic Cuff Automatic Cuff Automatic Cuff Blood Pressure Position Blood Pressure Position [Right Arm] Sitting Sitting Supine 02 Sat by Pulse Oximetry 96 95 97 Oxygen Delivery Method Nasal Cannula Nasal Cannula Room Air Oxygen Flow Rate (LPM) 2 2 02/23/18 16:53 02/23/18 16:58 Temperature 97.9 F Temperature Source Oral Pulse Rate 66 Pulse Rate [Right Radial] Respiratory Rate 18 Blood Pressure 100/59 Blood Pressure [Right Arm] Blood Pressure Mean [Right Arm] Blood Pressure Source Automatic Cuff Blood Pressure Source [Right Arm] Blood Pressure Position Sitting Blood Pressure Position [Right Arm] 02 Sat by Pulse Oximetry Oxygen Delivery Method Nasal Cannula Nasal Cannula Non-Rebreather Oxygen Flow Rate (LPM) 2 - Lab Data Lab results reviewed: Yes: I reviewed the patient's lab results. Lab Results 02/23/18 12:25: WBC 12.1 H, RBC 4.61, Hgb 13.8, Hct 42.2, MCV 91.5, MCH 29.9, MCHC 32.7, RDW 13.4, Plt Count 295, MPV 9.1, Neut % (Auto) 61.2, Lymph % (Auto) 32.7, [place] % (Auto) 3.3, Eos % (Auto) 2.3, Baso % (Auto) 0.5, Neut # (Auto) 7.4 , Lymph # (Auto) 4.0, [place] # (Auto) 0.4, Eos # (Auto) 0.3, Baso # (Auto) 0.1 02/23/18 12:25: Sodium 139, Potassium 2.9 L*, Chloride 97 L, Carbon Dioxide 35 H , Anion Gap 9.9, BUN 15, Creatinine 1.04 H, Estimated Creat Clear 100, Estimated GFR 55 L, Est GFR ( Amer) 66, Glucose 106, Calcium 8.4 L, Total Bilirubin 0.3, AST 13 L, ALT 19, Alkaline Phosphatase 161 H, Total Protein 7.3, Albumin 3.2 L, Globulin 4.1 H, Albumin/Globulin Ratio 0.8 L, Amylase 44, Lipase 123 Result diagrams: 02/23/18 12:25 02/23/18 12:25 Orders (Tests/Meds): ED MEDICATIONS Discontinued Medications Generic Name Dose Route Start Last Admin Trade Name Adam PRN Reason Stop Dose Admin Alprazolam 1 mg 02/23/18 21:00 02/24/18 08:20 Xanax 1mg Tablet PO 03/25/18 20:59 1 mg BID CRISTOPHER Administration Aspirin 81 mg 02/24/18 09:00 02/24/18 08:27 Aspirin 81mg Enteric Coated Tablet PO 03/26/18 08:59 Not Given DAILY CRISTOPHER Furosemide 40 mg 02/24/18 09:00 02/24/18 08:22 Lasix 40mg Tablet PO 03/26/18 08:59 40 mg DAILY CRISTOPHER Administration Heparin Sodium (Porcine) 500 unit 02/24/18 09:15 02/24/18 09:19 Heparin Lock Flush 500 Units/5ml IV 02/24/18 09:16 5 ml ONCE ONE Administration Hydromorphone HCl 1 mg 02/23/18 13:28 02/23/18 17:09 Dilaudid 2mg/Ml Syringe IV 02/23/18 13:29 Not Given ONCE ONE Sodium Chloride 1,000 mls @ 999 mls/hr 02/23/18 12:15 02/23/18 12:48 Sod Chlor 0.9% 1000ml Bag IV 02/23/18 13:15 999 mls/hr .Q1H1M CRISTOPHER Administration Sodium Chloride 1,000 mls @ 999 mls/hr 02/23/18 13:45 02/23/18 15:23 Sod Chlor 0.9% 1000ml Bag IV 02/23/18 14:45 999 mls/hr .Q1H1M CRISTOPHER Administration Sodium Chloride 1,000 mls @ 75 mls/hr 02/23/18 16:15 02/24/18 04:55 Sod Chlor 0.9% 1000ml Bag IV 03/25/18 16:14 75 mls/hr .[id number] CRISTOPHER Administration Lisinopril 10 mg 02/24/18 09:00 02/24/18 08:22 Zestril 10mg Tablet PO 03/26/18 08:59 10 mg DAILY CRISTOPHER Administration Metoprolol Succinate 100 mg 02/24/18 09:00 02/24/18 08:23 Toprol Xl 100mg Tablet PO 03/26/18 08:59 100 mg DAILY CRISTOPHER Administration Montelukast Sodium 10 mg 02/23/18 21:00 02/23/18 21:29 Singulair 10mg Tablet PO 03/25/18 20:59 10 mg HS CRISTOPHER Administration Morphine Sulfate 2 mg 02/23/18 13:44 02/23/18 13:54 Morphine 2mg/2ml Syringe IV 02/23/18 13:45 2 mg ONCE ONE Administration Morphine Sulfate 2 mg 02/23/18 15:06 02/23/18 15:23 Morphine 2mg/2ml Syringe IV 02/23/18 15:07 2 mg ONCE ONE Administration Morphine Sulfate 2 mg 02/23/18 16:10 02/24/18 09:18 Morphine 2mg/2ml Syringe IV 03/25/18 16:09 2 mg Q4HP PRN Administration Moderate Pain Pt's Own Med 60 mg 02/23/18 21:00 02/24/18 08:21 Duloxetine Hcl [ PO 03/25/18 20:59 60 mg Cymbalta] 60 Mg BID CRISTOPHER Administration Pt's Own Med 20 mg 02/23/18 21:00 02/24/18 08:23 Omeprazole [Prilosec PO 03/25/18 20:59 20 mg Otc] 20 Mg BID CRISTOPHER Administration Pt's Own Med 150 mg 02/23/18 21:00 02/23/18 21:28 Trazodone Hcl 150 Mg PO 03/25/18 20:59 150 mg HS CRISTOPHER Administration Ondansetron HCl 4 mg 02/23/18 12:13 02/23/18 12:48 Zofran 4mg/2ml Vial IV 02/23/18 12:14 4 mg ONCE ONE Administration Ondansetron HCl 4 mg 02/23/18 16:10 Zofran 4mg/2ml Vial IV 03/25/18 16:09 Q4HP PRN Nausea Potassium Chloride 60 meq 02/23/18 14:03 02/23/18 14:10 Klor-Con 20meq Tablet PO 02/23/18 14:04 60 meq ONCE ONE Administration Promethazine HCl 12.5 mg 02/23/18 13:29 02/23/18 13:54 Phenergan 25mg/Ml 1ml Vial IV 02/23/18 13:30 12.5 mg ONCE ONE Administration Promethazine HCl 12.5 mg 02/23/18 16:09 Phenergan 25mg/Ml 1ml Vial IV 03/25/18 16:08 Q6HP PRN Nausea And Vomiting Promethazine HCl 12.5 mg 02/23/18 16:10 Phenergan 25mg/Ml 1ml Vial IV 03/25/18 16:08 Q6HP PRN Nausea And Vomiting Sodium Chloride 50 ml 02/23/18 13:29 02/23/18 13:54 Sod Chlor 0.9% 50ml Bag IV 02/23/18 13:30 50 ml ONCE ONE Administration Sodium Chloride 50 ml 02/23/18 16:09 Sod Chlor 0.9% 50ml Bag IV 03/25/18 16:08 NEEDED PRN for Use with IV Promethazine Sodium Chloride 10 ml 02/23/18 16:10 Saline Flush 10ml Syringe IV 03/25/18 16:09 NEEDED PRN Maintain IV Site Sodium Chloride 50 ml 02/23/18 16:10 Sod Chlor 0.9% 50ml Bag IV 03/25/18 16:08 NEEDED PRN for Use with IV Promethazine Sodium Chloride 50 ml 02/23/18 16:10 Sod Chlor 0.9% 50ml Bag IV 03/25/18 16:09 NEEDED PRN for Use with IV Promethazine Ticagrelor 90 mg 02/23/18 21:00 02/24/18 08:26 Brilinta 90mg Tablet PO 03/25/18 20:59 90 mg BID CRISTOPHER Administration - CT Data CT Scan: Abdomen, Pelvis Time Received: 12:[address] Reviewed: Yes: I have reviewed the patient's CT results, I have viewed the radiologist's interpretation Findings Narrative: [place] [address] [place] [address] [place] [address] [address] Scan Report Signed Patient: Linda Arteaga MR#: [id number] : 1960 Acct:[id number] Age/Sex: 57 / F ADM Date: 02/23/18 Loc: ER Attending Dr: Ordering Physician: Adalberto Raphael MD Date of Service: 02/23/18 Procedure(s): CT abdomen pelvis wo con Accession Number(s): [id number] cc: Wili Arriola MD; Laura Jean APRN~ CT abdomen pelvis wo con CLINICAL INDICATION: Upper epigastric pain ITS.REASON: abd pain ORDERING PHYSICIAN: Adalberto Raphael MD PATIENT AGE: 57 years COMPARISON: None TECHNIQUE: Axial images obtained with sagittal and coronal reformats. All CT scans at the facility use one or more dose reduction, viz: automated exposure control; ma/kV adjustment per patient size (including targeted exams where dose is matched to indication; i.e. head); or iterative reconstruction technique. PROCEDURE: Oral Contrast: None IV Contrast: None . FINDINGS: There is minimal nodularity noted in the right middle lobe nonspecific and not significantly changed considering that there is mild motion artifact on today's exam. Small hiatal hernia noted There is diffuse fatty liver. There has been prior cholecystectomy without ductal dilatation. The spleen, adrenal glands, pancreas, and left kidney have an unremarkable unenhanced appearance. Isodensity is present involving the right kidney anteriorly at 2 cm consistent with a renal cyst. No obstructing ureteral calculi evident. Atherosclerotic calcification involves the abdominal aorta. There is a small umbilical hernia which contains fat. No evidence of appendicitis, intestinal obstruction or free air. There is diverticulosis of the descending and sigmoid colon. No evidence of diverticulitis. Prior hysterectomy. No pelvic mass or abnormal fluid collection or focal inflammatory change of the pelvis. Urinary bladder has an unremarkable appearance. No acute bony anomalies IMPRESSION: 1. No acute finding. 2. Nonacute findings including small hiatal hernia, fatty liver, colonic diverticulosis, right renal cyst and nonspecific nodular opacity in the right middle lobe Dictated By: Wili Arriola MD Signed By: <Electronically signed by Wili Arriola MD in OV> 02/23/18 1259 DD/ 1249 - Physician Consults Physician Consulted: Dr Donovan Time: 15:00 Reason -: Admission, Pt condition Comment/Response: Agreeable with admission, will continue IV hydration, IV morphine, IV Zofran, will come to the emergency room to evaluate patient. Abdominal Pain HPI - General Chief Complaint: Abdominal Pain Stated Complaint: dark stools,pain Time Seen by Provider: 02/23/18 12:40 Mode of Arrival: Ambulatory Limitations: No Limitations Description of Symptoms (Recalled from ER Triage Doc. by RN): pt has chronic pancreatitis, pt started having diaphrosis, dark stool, adb pain , and nausea symptoms started yesterday - History of Present Illness HPI narrative: Patient is a 57-year-old female patient with known history of pancreas divisum, chronic pancreatitis, presented to the emergency room with abdominal pain, nausea and vomiting for the past 24 hours. MD complaint: abdominal pain Onset (ago): day(s) (1) Consistency: intermittent Location: LUQ, RLQ, epigastric Severity: severe Severity scale (1-10): 9 Quality: stabbing Radiation: bilateral flank Migration to: L flank, R flank Relieving factors: nothing Exacerbating factors: eating Context: history of similar episodes Associated symptoms: nausea, vomiting - Related Data Home Medications Medication Instructions Recorded Confirmed ALPRAZolam [Xanax 1mg tab] 1 mg PO BID 01/11/18 02/23/18 Atorvastatin Calcium [Lipitor 40mg 40 mg PO HS 01/11/18 02/23/18 Tablet] Duloxetine HCl [Cymbalta] 60 mg PO BID 01/11/18 02/23/18 Montelukast Sodium [Singulair 10mg 10 mg PO HS 01/11/18 02/23/18 tablet] Omeprazole Magnesium [Prilosec Otc 20 mg PO BID 01/11/18 02/23/18 20mg Tab] Trazodone HCl 150 mg PO HS 01/11/18 02/23/18 Metoprolol Succinate 100 mg PO DAILY 01/12/18 02/23/18 Aspirin [Aspirin 81mg EC Tab] 81 mg PO DAILY 02/02/18 02/23/18 Lisinopril [Zestril 10mg Tab] 10 mg PO DAILY 02/02/18 02/23/18 Ticagrelor [Brilinta 90mg Tablet] 90 mg PO BID 02/02/18 02/23/18 Furosemide [Furosemide 40MG tAB] 40 mg PO DAILY 02/23/18 02/23/18 Previous Rx's Medication Instructions Recorded Potassium Chloride [K-Tab ER 20 20 meq PO DAILY #30 tab 02/24/18 mEq] Allergies Allergy/AdvReac Type Severity Reaction Status Date / Time codeine [CODEINE] Allergy Unknown N/V Verified 02/02/18 10:24 ketorolac [KETOROLAC] Allergy Unknown Unknown Verified 02/02/18 10:24 allergy reaction meperidine [MEPERIDINE] Allergy Unknown Unknown Verified 02/02/18 10:24 allergy reaction tramadol [TRAMADOL] Allergy Unknown Unknown Verified 02/02/18 10:24 allergy reaction [facility] History I have reviewed the patient's past medical history: Yes Medical History: Reports:: Arrhythmia, Atrial Fibrillation, Coronary Artery Disease, Deep Vein Thrombosis, Gastroesophageal Reflux Disease(GERD), Hyperlipidemia, Hypertension, Peripheral Artery Disease Denies:: Cancer, Diabetes Mellitus Type 1, Diabetes Mellitus Type 2, Internal Pacemaker, MRSA Other Medical History: Reports: Hoarseness Comment: Pancreitis Laterality Cases: Bilateral: Tonsillectomy Other Surgeries: Yes: Appendectomy, Cardiac Catheterization, Colonoscopy, Coronary Stent, EGD, Hysterectomy-Total, Tubal Ligation, Other (cholecystectomy , neck fusion). No: Pacemaker Amputation: No Fractures: Yes - Social History Smoking Status: Current every day smoker Tobacco Type: cigarettes # Packs/Day (cigarettes): 1 #Yrs smoked (if former smoker): 40 Alcohol Intake: former Alcohol Intake Frequency:: 0-2 drinks per day Occupational Status: unemployed Housing: house Household Members: spouse, children Family Hx:: Hyperlipidemia, Hypertension, Stroke ROS Obtained: Yes All systems reviewed & no additional complaints, Yes Systems reviewed as appropriate & no additional complaints - Gastrointestinal Gastrointestingal: Reports: system reviewed and no additional complaints, except as docu, as per HPI, abdominal pain, nausea, vomiting Physical Exam - General General appearance: alert, in distress (severe) - Head Head exam: atraumatic, normocephalic, normal inspection - Neck Neck exam: Present: normal inspection, full ROM, trachea midline. Absent: meningismus, lymphadenopathy - Chest Chest inspection: Present: normal inspection, symmetric chest wall rise. Absent : tenderness - Respiratory Respiratory exam: Present: normal lung sounds bilaterally. Absent: respiratory distress - Cardiovascular Cardiovascular exam: Present: regular rate, normal rhythm. Absent: JVD - Abdominal Exam Abdominal exam: Present: soft, tenderness (Upper abdomen), guarding, normal bowel sounds. Absent: distention - Extremities Exam Extremities exam: Present: normal inspection, full ROM, normal capillary refill. Absent: calf tenderness - Back Exam Back exam: Present: normal inspection. Absent: tenderness - Neurological Exam Neurological exam: Present: alert, oriented X3 - Psychiatric Psychiatric exam: Present: normal affect, normal mood - Skin Skin exam: Present: warm, dry, intact, normal color - Lymphatic Lymphatic Findings: no adenopathy
--- NOTE | 2018-02-23 16:41 | History & Physical Report ---
*Admission Date: 02/23/18 *Chief complaint: Abdominal pain *History of present illness: 57-year-old female who claims a history of chronic pancreatitis presented to the emergency department after onset of epigastric abdominal pain with vomiting this morning. Patient tells me that she began feeling nauseous with some mild upset stomach yesterday and onset of diarrhea with chills. This morning her symptoms "became full-blown" with onset of pain and vomiting as well. On arrival to the emergency department she was vomiting and continued to have active emesis while in the emergency department. Patient was started on fluids and given antiemetics. She was found to be hypokalemic. Decision has been made to admit the patient for fluid replacement, antiemetics, pain control. Patient was recently hospitalized for recurrent chest pain and underwent cardiac catheterization. During this most recent hospitalization patient became over sedated due to narcotic use and associated sleep apnea. [facility] History I have reviewed the patient's past medical history: Yes Medical History: Reports:: Arrhythmia, Atrial Fibrillation, Coronary Artery Disease, Deep Vein Thrombosis, Gastroesophageal Reflux Disease(GERD), Hyperlipidemia, Hypertension, Peripheral Artery Disease Denies:: Cancer, Diabetes Mellitus Type 1, Diabetes Mellitus Type 2, Internal Pacemaker, MRSA Other Medical History: Reports: Hoarseness Comment: Claims a history of chronic pancreatitis Laterality Cases: Bilateral: Tonsillectomy Other Surgeries: Yes: Appendectomy, Cardiac Catheterization, Colonoscopy, Coronary Stent, EGD, Hysterectomy-Total, Tubal Ligation, Other (cholecystectomy , neck fusion). No: Pacemaker Amputation: No Fractures: Yes - *Social History Smoking Status: Current every day smoker Tobacco Type: cigarettes # Packs/Day (cigarettes): 1 #Yrs smoked (if former smoker): 40 Alcohol Intake: former Alcohol Intake Frequency:: 0-2 drinks per day Occupational Status: unemployed Housing: house Household Members: spouse, children *Family Hx:: Hyperlipidemia, Hypertension, Stroke Review of Systems - Review of Systems Review of systems:: pertinent systems reviewed and negative unless documented below - Constitutional Reports chills - *Cardiovascular Denies chest pain - *Gastrointestinal Reports abdominal pain, Reports change in stools, Reports cramping, Reports nausea, Reports vomiting Meds Home Medications Medication Instructions Recorded Confirmed Type ALPRAZolam [Xanax 1mg tab] 1 mg PO BID 01/11/18 02/23/18 History Atorvastatin Calcium [Lipitor 40mg 40 mg PO HS 01/11/18 02/23/18 History Tablet] Duloxetine HCl [Cymbalta] 60 mg PO BID 01/11/18 02/23/18 History Montelukast Sodium [Singulair 10mg 10 mg PO HS 01/11/18 02/23/18 History tablet] Omeprazole Magnesium [Prilosec Otc 20 mg PO BID 01/11/18 02/23/18 History 20mg Tab] Trazodone HCl 150 mg PO HS 01/11/18 02/23/18 History Metoprolol Succinate 100 mg PO DAILY 01/12/18 02/23/18 History Aspirin [Aspirin 81mg EC Tab] 81 mg PO DAILY 02/02/18 02/23/18 History Lisinopril [Zestril 10mg Tab] 10 mg PO DAILY 02/02/18 02/23/18 History Ticagrelor [Brilinta 90mg Tablet] 90 mg PO BID 02/02/18 02/23/18 History Furosemide [Furosemide 40MG tAB] 40 mg PO DAILY 02/23/18 02/23/18 History Allergies Allergy/AdvReac Type Severity Reaction Status Date / Time codeine [CODEINE] Allergy Unknown N/V Verified 02/02/18 10:24 ketorolac [KETOROLAC] Allergy Unknown Unknown Verified 02/02/18 10:24 allergy reaction meperidine [MEPERIDINE] Allergy Unknown Unknown Verified 02/02/18 10:24 allergy reaction tramadol [TRAMADOL] Allergy Unknown Unknown Verified 02/02/18 10:24 allergy reaction Exam Vital signs and Labs for Last 24 Hours: Temp Pulse Resp BP Pulse Ox 98.2 F 65 20 105/70 97 02/23/18 15:24 02/23/18 15:24 02/23/18 15:24 02/23/18 15:24 02/23/18 15:24 Abnormal Labs 02/23/18 02/23/18 12:25 12:25 WBC 12.1 H Potassium 2.9 L* Chloride 97 L Carbon Dioxide 35 H Creatinine 1.04 H Estimated GFR 55 L Calcium 8.4 L AST 13 L Alkaline Phosphatase 161 H Albumin 3.2 L Globulin 4.1 H Albumin/Globulin Ratio 0.8 L Narrative: At time of my exam patient is asleep on the gurney. She awakens easily but seems tired. HEENT exam is unremarkable and mucous membranes are moist. Neck is without carotid bruits. Lungs are clear to auscultation. Heart has a regular rate and rhythm. Abdomen is obese and soft with epigastric tenderness to palpation. Bowel sounds are present. Extremities H&P: Result - Labs Labs: Laboratory Results - last 24 hr 02/23/18 12:25: WBC 12.1 H, RBC 4.61, Hgb 13.8, Hct 42.2, MCV 91.5, MCH 29.9, MCHC 32.7, RDW 13.4, Plt Count 295, MPV 9.1, Neut % (Auto) 61.2, Lymph % (Auto) 32.7, [place] % (Auto) 3.3, Eos % (Auto) 2.3, Baso % (Auto) 0.5, Neut # (Auto) 7.4 , Lymph # (Auto) 4.0, [place] # (Auto) 0.4, Eos # (Auto) 0.3, Baso # (Auto) 0.1 02/23/18 12:25: Sodium 139, Potassium 2.9 L*, Chloride 97 L, Carbon Dioxide 35 H , Anion Gap 9.9, BUN 15, Creatinine 1.04 H, Estimated Creat Clear 100, Estimated GFR 55 L, Est GFR ( Amer) 66, Glucose 106, Calcium 8.4 L, Total Bilirubin 0.3, AST 13 L, ALT 19, Alkaline Phosphatase 161 H, Total Protein 7.3, Albumin 3.2 L, Globulin 4.1 H, Albumin/Globulin Ratio 0.8 L, Amylase 44, Lipase 123 Assessment and Plan (1) Nausea with vomiting, unspecified Current visit: Yes Status: Acute Qualifiers: Vomiting type: unspecified Vomiting Intractability: unspecified Qualified Code(s): R11.2 - Nausea with vomiting, unspecified Category: Medical Code(s): R11.2 - Nausea with vomiting, unspecified - Assessment and plan all Dx Assessment and Plan for all problems:: Mid for observation and replacement of potassium with intravenous fluids. Patient will be ordered morphine 2 mg every 4 hours for pain control and I have already explained to the patient that she will not be ordered a dose higher than this due to oversedation that developed during last hospitalization. Patient will be given Phenergan for nausea as well. Repeat potassium in a.m.
--- NOTE | 2018-02-24 07:14 | Discharge Summary ---
General - General Admission date: 02/23/18 Discharge date: 02/24/18 HPI HPI: 57-year-old female who claims a history of chronic pancreatitis presented to the emergency department after onset of epigastric abdominal pain with vomiting this morning. Patient tells me that she began feeling nauseous with some mild upset stomach yesterday and onset of diarrhea with chills. This morning her symptoms "became full-blown" with onset of pain and vomiting as well. On arrival to the emergency department she was vomiting and continued to have active emesis while in the emergency department. Patient was started on fluids and given antiemetics. She was found to be hypokalemic. Decision has been made to admit the patient for fluid replacement, antiemetics, pain control. Patient was recently hospitalized for recurrent chest pain and underwent cardiac catheterization. During this most recent hospitalization patient became over sedated due to narcotic use and associated sleep apnea. Hospital Course Hospital Course: Patient was admitted to the floor and did not experience any further vomiting. She did have some episodes of epigastric abdominal pain which were treated with as needed morphine. Patient slept with use of BiPAP. The following morning ( February 24) patient was able to eat without complications. Patient was subsequently discharged home. 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 Patient will be given oral potassium at discharge as well Objective Vital signs: Temp Pulse Resp BP Pulse Ox 97.7 F 80 20 107/62 93 L 02/24/18 04:00 02/24/18 04:00 02/24/18 04:00 02/24/18 04:00 02/24/18 04:00 DS: Diagnosis - Discharge Diagnosis (1) Nausea with vomiting, unspecified Status: Acute (2) Hypokalemia Status: Acute Discharge Plan - Patient Discharge Instructions ACTIVITY: Continue current activity DIET: continue same diet - Follow up Plan Follow up with: Jaleel Arenas [Other] Disposition: Home, Self-Nursing Home Medications: Home Medications Medication Instructions Recorded Confirmed Type ALPRAZolam [Xanax 1mg tab] 1 mg PO BID 01/11/18 02/23/18 History Atorvastatin Calcium [Lipitor 40mg 40 mg PO HS 01/11/18 02/23/18 History Tablet] Duloxetine HCl [Cymbalta] 60 mg PO BID 01/11/18 02/23/18 History Montelukast Sodium [Singulair 10mg 10 mg PO HS 01/11/18 02/23/18 History tablet] Omeprazole Magnesium [Prilosec Otc 20 mg PO BID 01/11/18 02/23/18 History 20mg Tab] Trazodone HCl 150 mg PO HS 01/11/18 02/23/18 History Metoprolol Succinate 100 mg PO DAILY 01/12/18 02/23/18 History Aspirin [Aspirin 81mg EC Tab] 81 mg PO DAILY 02/02/18 02/23/18 History Lisinopril [Zestril 10mg Tab] 10 mg PO DAILY 02/02/18 02/23/18 History Ticagrelor [Brilinta 90mg Tablet] 90 mg PO BID 02/02/18 02/23/18 History Furosemide [Furosemide 40MG tAB] 40 mg PO DAILY 02/23/18 02/23/18 History Prescriptions/Medication Reconciliation: New Potassium Chloride [K-Tab ER 20 mEq] 20 meq PO DAILY #30 tab Continue Omeprazole Magnesium [Prilosec Otc 20mg Tab] 20 mg PO BID Montelukast Sodium [Singulair 10mg tablet] 10 mg PO HS Atorvastatin Calcium [Lipitor 40mg Tablet] 40 mg PO HS Duloxetine HCl [Cymbalta] 60 mg PO BID ALPRAZolam [Xanax 1mg tab] 1 mg PO BID Trazodone HCl 150 mg PO HS Metoprolol Succinate 100 mg PO DAILY Lisinopril [Zestril 10mg Tab] 10 mg PO DAILY Furosemide [Furosemide 40MG tAB] 40 mg PO DAILY Ticagrelor [Brilinta 90mg Tablet] 90 mg PO BID Aspirin [Aspirin 81mg EC Tab] 81 mg PO DAILY
--- NOTE | 2018-02-24 07:26 | Pharmacy Consult Notes ---
[facility] Pharmacy VTE Monitoring - Patient Demographics Admission date: 02/23/18 Report Date: 02/24/18 Time: 07:25 Allergies/Adverse Reactions: Patient Allergies codeine [CODEINE] Allergy (Unknown, Verified 02/02/18 10:24) N/V ketorolac [KETOROLAC] Allergy (Unknown, Verified 02/02/18 10:24) Unknown allergy reaction meperidine [MEPERIDINE] Allergy (Unknown, Verified 02/02/18 10:24) Unknown allergy reaction tramadol [TRAMADOL] Allergy (Unknown, Verified 02/02/18 10:24) Unknown allergy reaction Height: 1.68 m Weight: 107.643 kg Patient Problems: Current Active Problems Nausea with vomiting, unspecified (Acute) Hypokalemia (Acute) Dehydration (Acute) Gastroenteritis (Acute) - VTE Risk Labs: VTE Related Lab Results Hgb 13.8 g/dL (12.2-16.2) 02/23/18 12:25 Hct 42.2 % (37.0-47.0) 02/23/18 12:25 Plt Count 295 K/mm3 (142-424) 02/23/18 12:25 BUN 15 mg/dL (7-18) 02/23/18 12:25 Creatinine 1.04 mg/dL (0.55-1.02) H 02/23/18 12:25 Estimated Creat Clear 100 mL/min (0-300) 02/23/18 12:25 Was VTE Risk Assessment Performed: Yes VTE Score: 2 VTE Risk Level: Low Risk Clinical Trial Participant: No - Prophylaxis VTE Prophylaxis Ordered?: Yes Types of VTE Prophylaxis: TEDS Knee High Location of Applied Device: Bilateral Lower Extremeties
[2018-02-24 07:35] VITALS: BP 114/57
== END 2018-02-24 09:30 | disposition home or self-care (01) ==
LOC: 2ND 11:40 → ER 11:40 → 2ND 17:20
PROVIDERS: ADMIT Family Medicine; ATTEND Family Medicine

== ENCOUNTER → 2018-05-04 20:13 | Outpatient (CLI) | payer MEDICARE, MEDICAID, SELFPAY | PROVIDERS: PCP Family Medicine; Visit Provider Urology | DX: G47.33 Obstructive sleep apnea (adult) (pediatric) (principal) | CPT/HCPCS: 95811 ==

== ENCOUNTER → 2018-05-18 13:13 | Outpatient (POV) | payer MEDICARE, SELFPAY | PROVIDERS: Family Provider Nurse Practitioner Family; PCP Family Medicine; Visit Provider Physician Assistant | DX: Z00.00 Encounter for general adult medical examination without abnormal findings (principal) ==

== ENCOUNTER → 2018-08-13 08:10 | Outpatient (POV) | payer MEDICARE, MEDICAID, SELFPAY | PROVIDERS: Visit Provider Dentist | DX: Z00.00 Encounter for general adult medical examination without abnormal findings (principal) ==

== ENCOUNTER → 2019-01-15 17:57 | Outpatient (CLI) | payer MEDICARE, MEDICAID, SELFPAY ==
[2019-01-15 19:22] LABS: Amphetamine/Metha Screen,Urine Negative ng/mL (<1000); Barbiturates Screen,Urine Negative ng/mL (<200); Benzodiazepines Screen,Urine Negative ng/mL (<200); Cannabinoid Screen,Urine Negative ng/mL (<50); Cocaine Screen,Urine Negative ng/mL (<300); Methadone Screen,Urine Negative ng/mL (<300); Opiate Screen,Urine Negative ng/mL (<300); Phencyclidine Screen,Urine Negative ng/mL (<25)
== END ==
PROVIDERS: Visit Provider Nurse Practitioner Family
DX: Z79.899 Other long term (current) drug therapy (principal)
CPT/HCPCS: 80305

== ENCOUNTER → 2019-02-15 11:01 | Outpatient (CLI) | payer MEDICARE, SELFPAY ==
--- NOTE | 2019-02-15 11:07 | XR_ITS ---
EXAM: XR cervical spine 5V HISTORY: Previous cervical spine surgery ITS.REASON: pain ORDERING PHYSICIAN: Ann Marie Olmstead PATIENT AGE: 58 years COMPARISON: None FINDINGS: There is straightening of normal curvature. There is been previous anterior cervical fusion C4, C5 and C6 with an anterior metallic plate and threaded screws into each of the 3 vertebral vertebrae. There are metallic spacers in the C4-5 and C5-6 disc space. There is marked narrowing of the C6-7 disc space with anterior and posterior osteophytic spurring. Oblique films show mild to moderate neural foraminal narrowing at C4-5, C5-6 and C6-7 levels on the left side and mild neural foraminal narrowing at the C5-6 and C6-7 levels on the right side. The prevertebral soft tissues are normal and the odontoid is normal. There is a Mediport catheter seen at the lower edge of the [id number] entering the right subclavian vein. IMPRESSION: Postsurgical changes lower cervical spine with multilevel neural foraminal narrowing but more prominent left side than right as described above.
--- NOTE | 2019-02-15 11:07 | XR_ITS ---
EXAM: XR thoracic spine 3V HISTORY: ITS.REASON: pain Comparison: 07/16/2018 FINDINGS: There is mild serpentine scoliotic curvature of the upper thoracic spine. There is multilevel disc space narrowing. With mild anterior and lateral osteophytic spurring at multiple levels. There is no evidence of recent or old compression fracture. There is no paraspinal mass. There is a central line seen ascending the right subclavian vein with the tip in the SVC above the right atrium. . IMPRESSION: Multilevel degenerative changes with mild scoliotic curvature of the upper thoracic spine.
[2019-02-15 15:33] LABS: Amphetamine/Metha Screen,Urine Negative ng/mL (<1000); Barbiturates Screen,Urine Negative ng/mL (<200); Benzodiazepines Screen,Urine Negative ng/mL (<200); Cannabinoid Screen,Urine Negative ng/mL (<50); Cocaine Screen,Urine Negative ng/mL (<300); Methadone Screen,Urine Negative ng/mL (<300); Opiate Screen,Urine Negative ng/mL (<300); Phencyclidine Screen,Urine Negative ng/mL (<25)
== END ==
PROVIDERS: PCP Nurse Practitioner Family; Visit Provider Nurse Practitioner Family
DX: M54.9 Dorsalgia, unspecified (principal); M54.2 Cervicalgia; M54.5 Low back pain; Z79.899 Other long term (current) drug therapy
CPT/HCPCS: 72050; 72072; 80305

== ENCOUNTER → 2019-03-05 14:49 | Outpatient (CLI) | payer MEDICARE, SELFPAY ==
--- NOTE | 2019-03-05 14:51 | MM_ITS ---
MM Dig screening mamm BI w/CAD ORDERING PHYSICIAN : Ann Marie Olmstead PATIENT AGE: 58 years GENDER: Female . COMPARISON: Outside mammograms have arrived from [facility], dated May 2016, January 2014. No significant new findings. No dominant mass nor suspicious calcifications either breast. INDICATION: ITS.Routine screening mammogram. No hormones. No new complaints. Family history. patrnal grandmother TECHNIQUE: Standard CC and MLO images were obtained. R2 CAD reviewed. Additional nipple profile CC views bilaterally included FINDINGS: Low-density breast with generalized fatty replacement. No new areas of significant concern. CAD computer review highlights no new areas of concern either. No dominant mass nor suspicious calcifications either breast. . CAD computer review highlights no areas of concern either Follow-up in one year recommended, adequate. Right breast. There are some. Minor density superior central right breast located towards 12:00 which appears to be stable compatible with previous studies with technique is considered a similar pattern seen in 2016 with prior studies IMPRESSION: No significant new findings. Low-density breast,. Bilateral follow-up in one year recommended BI-RADS Category: 1 Negative RECOMMENDED FOLLOW-UP: 1YR 1 YEAR FOLLOW-UP (A letter has been sent to the patient regarding results of the study.)
== END ==
PROVIDERS: PCP Emergency Medicine; Visit Provider Nurse Practitioner Family
DX: Z12.31 Encounter for screening mammogram for malignant neoplasm of breast (principal)
CPT/HCPCS: 77067

== ENCOUNTER → 2019-05-14 17:08 | Outpatient (CLI) | payer MEDICARE, SELFPAY ==
[2019-05-14 18:31] LABS: Amphetamine/Metha Screen,Urine Negative ng/mL (<1000); Barbiturates Screen,Urine Negative ng/mL (<200); Benzodiazepines Screen,Urine Positive ng/mL (<200); Cannabinoid Screen,Urine Positive ng/mL (<50); Cocaine Screen,Urine Negative ng/mL (<300); Methadone Screen,Urine Negative ng/mL (<300); Opiate Screen,Urine Negative ng/mL (<300); Phencyclidine Screen,Urine Negative ng/mL (<25)
== END ==
PROVIDERS: Visit Provider Emergency Medicine
DX: M54.12 Radiculopathy, cervical region (principal)
CPT/HCPCS: 80305

== ENCOUNTER 2019-05-15 01:41 | Emergency (ER) | payer MEDICARE, SELFPAY ==
[2019-05-15 01:47] VITALS: BP 106/69; PULSE 71; RESP 16; TEMP 36.4; O2SAT 98; BMI 39.8
--- NOTE | 2019-05-15 01:56 | CT_ITS ---
CT abdomen pelvis wo con CLINICAL INDICATION: Nausea, vomiting, abdominal pain with diarrhea, history of a pancreatic stent pancreatic pain ITS.REASON: abd pain ORDERING PHYSICIAN: Sea So MD PATIENT AGE: 58 years COMPARISON: 03/16/2018 TECHNIQUE: Axial images obtained with sagittal and coronal reformats. All CT scans at the facility use one or more dose reduction, viz: automated exposure control, ma/kV adjustment per patient size (including targeted exams where dose is matched to indication, i.e. head), or iterative reconstruction technique. PROCEDURE: Oral Contrast: None IV Contrast: None . FINDINGS: Lower thorax: There are dependent changes in the lung bases. Prior cholecystectomy. The liver, spleen, adrenal glands, and pancreas have an unremarkable appearance. No evidence of acute pancreatitis. No renal or ureteral calculi. A 2.5 cm cyst is present in the right kidney. Small umbilical hernia containing fat. No intestinal obstruction or free air. There are a few scattered air-fluid levels in large bowel without distention No evidence of appendicitis or diverticulitis. There are scattered diverticula of the sigmoid colon. Post hysterectomy change. No pelvic mass or abnormal fluid collection or focal inflammatory change. There are degenerative changes of the lumbar spine. IMPRESSION: There are a few scattered air-fluid levels in the large bowel without distention. This may be seen with diarrhea disease. Otherwise negative.
[2019-05-15 02:06] LABS: Microscopic, Urine URINE MICROSCOPIC (MICROSCOPIC)
[2019-05-15 02:08] LABS: Appearance,Urine SL CLOUDY (Clear); Bilirubin,Urine Negative (Negative); Blood, Urine Negative (Negative); Color,Urine YELLOW (Yellow); Glucose,Urine (UA) Negative (Negative); Ketones,Urine Negative (Negative); Leukocyte Esterase,Urine Negative (Negative); Nitrate,Urine Negative (Negative); Protein,Urine Negative (Negative); Specific Gravity, Urine 1.015 (1.005-1.030); Urobilinogen,Urine 0.2 EU/dl (0.2)
[2019-05-15 02:10] LABS: Amorphous Sediment,Urine 1+ /lpf; Calcium Oxalate Crystals,Urine 1+ /lpf; Mucus,Urine Trace /lpf
[2019-05-15 02:11] LABS: Yeast,Urine Occasional /lpf
--- NOTE | 2019-05-15 02:33 | HMH.EDNVD ---
ED Disposition Clinical Impression: Colitis, Renal insufficiency Disposition: Home, Self-Care Condition on Discharge: Good Instructions: DI for Colitis Additional Instructions: fluids and see pcp for follow up Prescriptions: Oxycodone HCl/Acetaminophen [Percocet 5/325mg tablet] 1 tab PO Q6H PRN #9 tab PRN Reason: Moderate To Severe Pain Referrals: Sea So MD [Primary Care Provider] - - Critical Care Critical Care Time: No Attestation: On 05/15/19, the high probability of a clinically significant, sudden or life threatening deterioration of the following system(s) required my full and direct attention, intervention and personal management. The time I documented below is in addition to time spent performing reported procedures but includes the following listed in this critical care notation. Medical Decision Making - Medical Records Medical records reviewed: Yes: I reviewed the patient's medical records. - Delroy Inquiry Pt receiving controlled substance: No Vital Signs: 05/15/19 01:47 Temperature 97.6 F Temperature Source Oral Pulse Rate [Right Brachial] 71 Respiratory Rate 16 Blood Pressure [Right Arm] 106/69 L Blood Pressure Mean [Right Arm] 81 Blood Pressure Source [Right Arm] Automatic Cuff Blood Pressure Position [Right Arm] Sitting 02 Sat by Pulse Oximetry 98 Oxygen Delivery Method Room Air - Lab Data Lab results reviewed: Yes: I reviewed the patient's lab results. Lab Results 05/15/19 01:55: Urine Color Yellow, Urine Appearance Sl cloudy, Urine pH 8.0, Ur Specific Economy 1.015, Urine Protein Negative, Urine Glucose (UA) Negative, Urine Ketones Negative, Urine Blood Negative, Urine Nitrate Negative, Urine Bilirubin Negative, Urine Urobilinogen 0.2, Ur Leukocyte Esterase Negative, Ur Squamous Epith Cells 5-10, Calcium Oxalate Crystal 1+, Amorphous Sediment 1+, Urine Mucus Trace, Urine Yeast Occasional 05/15/19 02:40: WBC 11.1 H, RBC 4.25, Hgb 12.6, Hct 40.1, MCV 94.2, MCH 29.6, MCHC 31.4 L, RDW 13.7, Plt Count 244, MPV 8.5, Neut % (Auto) 65.1, Lymph % (Auto) 26.8, [place] % (Auto) 4.4, Eos % (Auto) 3.2, Baso % (Auto) 0.5, Neut # (Auto) 7.2, Lymph # (Auto) 3.0, [place] # (Auto) 0.5, Eos # (Auto) 0.4, Baso # (Auto) 0.1 05/15/19 02:40: Sodium 138, Potassium 3.1 L, Chloride 99, Carbon Dioxide 29, Anion Gap 13.1, BUN 21 H, Creatinine 1.65 H, Estimated Creat Clear 62, Estimated GFR 32 L, Est GFR ( Amer) 39 L, Glucose 158 H, Calcium 8.1 L, Total Bilirubin 0.7, AST 21, ALT 20, Alkaline Phosphatase 97, Total Protein 6.3 L, Albumin 3.1 L, Globulin 3.2, Albumin/Globulin Ratio 1.0 L, Amylase 39, Lipase 109 05/15/19 02:40: Lactate 1.9 Result diagrams: 05/15/19 02:40 05/15/19 02:40 Orders (Tests/Meds): ED MEDICATIONS Generic Name Dose Route Start Last Admin Trade Name Freq PRN Reason Stop Dose Admin Sodium Chloride 1,000 mls @ 999 mls/hr 05/15/19 03:15 05/15/19 03:04 Sod Chlor 0.9% 1000ml Bag IV 05/15/19 04:15 999 mls/hr .Q1H1M CRISTOPHER Administration ORDERS Category Date Time Status CT abdomen pelvis wo con Stat Cat Scan 05/15/19 01:56 Taken Diarrhea 23 Panel, PCR Stat Lab 05/15/19 02:34 Ordered Blood Culture Stat Micro 05/15/19 02:40 Received - CT Data CT Scan: Abdomen, Pelvis Time Received: 05:[address] Reviewed: Yes: I have viewed the radiologist's interpretation Preliminary Findings: Abnormal (colitis) Nausea/Vomiting/Diarrhea HPI - General Chief complaint: Abdominal Pain Stated complaint: stomach pain,diarrhea with blood Time Seen by Provider: 05/15/19 02:00 Mode of Arrival: Wheelchair Source of Information: Patient, Medical Record Limitations: No Limitations Description of Symptoms (Recalled from ER Triage Doc. by RN): pt c/o abd pain that has been going on since friday. Advises she has hx of pancreatitis. Was seen at Dr. Cid office this after but has gotten worse with N/V/D this evening - History of Present Illness HPI Narrative: pt with
[2019-05-15 02:57] LABS: Basophils # 0.1 K/mm3 (0-0.2); Basophils % 0.5 % (0.1-2.0); Eosinophils # 0.4 K/mm3 (0.0-0.4); Eosinophils % 3.2 % (0.1-12.0); Hematocrit 40.1 % (37.0-47.0); Hemoglobin 12.6 g/dL (12.2-16.2); Lymphocytes % 26.8 % (10-50); Mean Corpuscular HGB Conc 31.4 g/dL (31.8-35.4); Mean Corpuscular Hemoglobin 29.6 pg (27.0-31.2); Mean Corpuscular Volume 94.2 fl (81-99); Mean Platelet Volume 8.5 fl (7.4-10.4); Monocytes # 0.5 K/mm3 (0.1-1.0); Monocytes % 4.4 % (1.7-9.3); Neutrophils # 7.2 K/mm3 (1.8-7.8); Neutrophils % 65.1 % (37.0-80.0); Platelet Count 244 K/mm3 (142-424); Red Blood Count 4.25 M/mm3 (4.20-5.40); Red Cell Distribution Width 13.7 % (11.5-17.5); White Blood Count 11.1 K/mm3 (4.8-10.8)
[2019-05-15 03:03] VITALS: BP 110/70; PULSE 70; RESP 16; O2SAT 98
[2019-05-15 03:13] LABS: Alanine Aminotransferase 20 U/L (12-78); Albumin Level 3.1 gm/dL (3.4-5.0); Alkaline Phosphatase 97 U/L (46-116); Amylase 39 U/L (25-115); Anion Gap 13.1 mEq/L (5-15); Aspartate Amino Transferase 21 U/L (15-37); Bilirubin,Total 0.7 mg/dL (0.2-1.0); Blood Urea Nitrogen 21 mg/dL (7-18); Calcium 8.1 mg/dL (8.5-10.1); Carbon Dioxide 29 mmol/L (21.0-32.0); Chloride 99 mmol/L (98-107); Creatinine Clearance Estimated 62 mL/min (50-200); Creatinine,Serum 1.65 mg/dL (0.55-1.02); Estimated Glomerular Filt Rate 32 ml/min (>60); GFR (African American) 39 ML/MIN (>60); Globulin 3.2 gm/dl (1.3-3.2); Glucose 158 mg/dL (74-106); Lipase 109 u/L (73-393); Potassium 3.1 mmoL/L (3.5-5.1); Sodium 138 mmol/L (136-145); Total Protein,Serum 6.3 gm/dL (6.4-8.2)
[2019-05-15 03:16] LABS: Lactic Acid 1.9 mmol/L (0.4-2.0)
[2019-05-15 05:12] VITALS: BP 106/64; PULSE 74; RESP 16; O2SAT 95
[2019-05-15 05:25] VITALS: BP 106/64; PULSE 70; RESP 16; TEMP 36.8; O2SAT 98
== END 2019-05-15 05:26 | disposition home or self-care (01) ==
PROVIDERS: Emergency Provider Emergency Medicine; PCP Emergency Medicine
DX: K52.9 Noninfective gastroenteritis and colitis, unspecified (principal); N28.9 Disorder of kidney and ureter, unspecified; R10.33 Periumbilical pain; I48.2 Chronic atrial fibrillation; I25.10 Atherosclerotic heart disease of native coronary artery without angina pectoris; K21.9 Gastro-esophageal reflux disease without esophagitis; E78.5 Hyperlipidemia, unspecified; I10 Essential (primary) hypertension
CPT/HCPCS: 74176; 80053; 81001; 82150; 83605; 83690; 85025; 87040; 87077; 87186; 96365; 99284

== ENCOUNTER → 2019-08-10 17:19 | Outpatient (CLI) | payer MEDICARE, SELFPAY ==
[2019-08-10 19:33] LABS: Amphetamine/Metha Screen,Urine Negative ng/mL (<1000); Barbiturates Screen,Urine Negative ng/mL (<200); Benzodiazepines Screen,Urine Positive ng/mL (<200); Cannabinoid Screen,Urine Positive ng/mL (<50); Cocaine Screen,Urine Negative ng/mL (<300); Methadone Screen,Urine Negative ng/mL (<300); Opiate Screen,Urine Negative ng/mL (<300); Phencyclidine Screen,Urine Negative ng/mL (<25)
== END ==
PROVIDERS: Visit Provider Nurse Practitioner Family
DX: M54.12 Radiculopathy, cervical region (principal)
CPT/HCPCS: 80305

== ENCOUNTER 2020-01-06 18:55 | Observation (INO) ==
--- NOTE | 2020-01-06 19:20 | Emergency Department Note ---
ED Disposition Condition on Discharge: Good - Critical Care Critical Care Time: No <Ifeanyi Hernandezua - Last Filed: 01/06/20 19:57> <Rusty Patel - Last Filed: 01/06/20 20:57> Clinical Impression: Atypical chest pain Syncope Qualifiers: Syncope type: unspecified Qualified Code(s): R55 - Syncope and collapse Disposition: Still a Patient Attestation: On 01/06/20, the high probability of a clinically significant, sudden or life threatening deterioration of the following system(s) required my full and direct attention, intervention and personal management. The time I documented below is in addition to time spent performing reported procedures but includes the following listed in this critical care notation. Medical Decision Making - Delroy Inquiry Pt receiving controlled substance: No - Lab Data Lab results reviewed: Yes: I reviewed the patient's lab results. Result diagrams: 01/06/20 19:25 01/06/20 19:25 <LorrijovanMirandaShan - Last Filed: 01/06/20 19:57> - Lab Data Result diagrams: 01/06/20 19:25 01/06/20 19:25 - CT Data CT Scan: Head Time Received: 20:56 ([facility] fax) - Physician Consults Physician Consulted: Mariela Time: 20:35 Reason -: Cardiology Eval/Care Comment/Response: Recommends admission Additional Consult: Zion So Time: 20:50 Reason -: Admission Comment/Response: Agrees to admit the patient to the hospital. We discussed the patient's clinical information, including history, exam, laboratory and radiology results and ED course. Per hospital procedure, I will write temporary bridge inpatient orders on the patient. Specific orders requested by the admitting physician: Serial cardiac enzymes <Rusty Patel - Last Filed: 01/06/20 20:57> Vital Signs: 01/06/20 18:56 01/06/20 19:25 Temperature 98 F Temperature Source Oral Pulse Rate [Left Radial] 72 79 Respiratory Rate 16 16 Blood Pressure [Right Arm] 97/41 L 149/79 H Blood Pressure Mean [Right Arm] 59 102 Blood Pressure Position [Right Arm] Sitting Sitting 02 Sat by Pulse Oximetry 98 96 Oxygen Delivery Method Room Air Room Air - Lab Data Lab Results 01/06/20 19:25: WBC 22.2 H*, RBC 4.67, Hgb 14.2, Hct 44.0, MCV 94.3, MCH 30.4, MCHC 32.3, RDW 13.8, Plt Count 373, MPV 8.0, Neut % (Auto) 60.8, Lymph % (Auto) 32.0, [place] % (Auto) 4.5, Eos % (Auto) 2.2, Baso % (Auto) 0.4, Neut # (Auto) 13.5 H, Lymph # (Auto) 7.1 H, [place] # (Auto) 1.0, Eos # (Auto) 0.5 H, Baso # (Auto) 0.1, Total Counted 100, Neutrophils % (Manual) 67, Lymphocytes % (Manual) 27, Monocytes % (Manual) 5, Eosinophils % (Manual) 1, Platelet Estimate Normal, RBC Morphology Normal 01/06/20 19:25: Sodium 135 L, Potassium 4.0, Chloride 98, Carbon Dioxide 32, Anion Gap 9.0, BUN 25 H, Creatinine 1.28 H, Estimated Creat Clear 80, Estimated GFR 43 L, Est GFR ( Amer) 52 L, Glucose 101, Calcium 8.2 L, Total Bilirubin 0.3, Direct Bilirubin 0.1, Indirect Bilirubin 0.2, AST 6 L, ALT 14, Alkaline Phosphatase 109, Troponin I < 0.02, Total Protein 6.6, Albumin 3.3 L 01/06/20 19:25: ESR 8 01/06/20 19:25: C-Reactive Protein < 0.2 01/06/20 19:25: B-Natriuretic Peptide 8 01/06/20 20:14: Lactate 0.5 Orders (Tests/Meds): ED MEDICATIONS Generic Name Dose Route Start Last Admin Trade Name Freq PRN Reason Stop Dose Admin Sodium Chloride 1,000 mls @ 999 mls/hr 01/06/20 19:45 01/06/20 20:07 Sod Chlor 0.9% 1000ml Bag IV 01/06/20 20:45 999 mls/hr .Q1H1M CRISTOPHER Administration Discontinued Medications Generic Name Dose Route Start Last Admin Trade Name Freq PRN Reason Stop Dose Admin Morphine Sulfate 4 mg 01/06/20 19:25 01/06/20 19:28 Morphine 4mg/Ml Syringe IV 01/06/20 19:26 4 mg ONCE ONE Administration ORDERS Category Date Time Status CT head/brain wo con Stat Cat Scan 01/06/20 19:02 Taken XR chest portable Stat Exams 01/06/20 19:02 Taken Troponin I Q3H Lab 01/06/20 22:15 Ordered Troponin I Q3H Lab 01/07/20 01:15 Ordered Urinalysis-Acute [Urinalysis and Microscopic] Stat Lab 01/06/20 19:46 Ordered Blood Culture Stat Micro 01/06/20 20:14 Received - CT Data Findings Narrative: No acute intracranial findings (Rusty Patel) Medical Decision Narrative: Most recent heart cath reports: #1 ANGIOGRAPHIC RESULTS: 1. The left main artery normal 2. The left anterior descending artery has an ostial 10-20% stenosis followed by a stent which is widely patent free of in-stent restenosis with excellent distal and proximal transitioning. Remaining LAD is free of significant disease. 3. The circumflex artery gives rise to a high ramus intermedius moderate to large in size which has mild proximal 10% stenoses while the circumflex artery has an ostial 10% and a proximal 20% stenosis 4. The right coronary artery is dominant and has ostial 10-20% stenosis proximal 20% stenoses mid vessel 20 and 30% stenoses. 5. The ONEILL ventriculogram reveals normal 65% 6. The left ventricular end-diastolic pressure 20 mmHg IMPRESSION: 1. Widely patent proximal LAD stent 2. Nonflow limiting coronary artery disease as described above 3. Normal ejection fraction 4. Elevated LVEDP consistent with diastolic dysfunction PLAN: 1. Risk factor modification 2. Medical management 3. Low-dose diuretics to decrease LVEDP 4. Maximize antianginal medications 5. Avoid tobacco products 6. Cardiac rehabilitatio Dictated By: Rohit Sierra MD Signed By: <Electronically signed by Rohit Sierra MD in [place]> 02/05/18 0845 #2 ANGIOGRAPHIC RESULTS: 1. The left main artery normal 2. The left anterior descending artery has a proximal concentric 70% stenosis best appreciated and the ONEILL caudal view. The remaining vessel has mild luminal irregularities. The first large diagonal artery has an ostial proximal 60% stenosis. 3. The ramus intermedius is a large vessel with a ostial proximal 40-50% stenosis 4. The circumflex artery is a nondominant vessel with mild 20-30% proximal disease 5. The right coronary artery is a dominant vessel with proximal 30% followed by additional concentric 70% followed by additional 50% mid vessel stenosis 6. The ONEILL ventriculogram reveals normal 65% 7. The left ventricular end-diastolic pressure 20 mmHg IMPRESSION: 1. Severe 2 vessel coronary artery disease as described above which correlated perfectly to the abnormal Myoview with both anterior and inferior ischemia 2. Successful stenting the proximal to mid LAD stent severe disease reduced to 0% with 2 drug-eluting stents 3. Successful stenting of the proximal to mid dominant right coronary artery severe disease reduced to 0% with 1 drug-eluting stent 4. Normal ejection fraction 5. Mildly elevated LVEDP PLAN: 1. Brilinta and aspirin 2. LDL less than 55 3. Risk factor modification 4. Cardiac rehabilitation 5. Avoidance of tobacco products 6. Aggressive risk factor modification Dictated By: Rohit Sierra MD Signed By: <Electronically signed by Rohit Sierra MD in [place]> 01/13/18 4308 (Rusty Patel) Chest Pain HPI - General Mode of Arrival: EMS Source of Information: Patient Limitations: No Limitations Description of Symptoms (Recalled from ER Triage Doc. 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 PT ALSO STATES OVER THE PAST WEEK SHE HAS HAD SEVERAL SYNCOPAL EPISODES. PT WITH HX OF CARDIAC STENTS 3 YEARS AGO. SQUAD GAVE 324MG ASA AND 1NITRO SL PT STATES NO CHANGE IN CHEST PAIN WITH NITRO <Shan Hernandez - Last Filed: 01/06/20 19:57> <Rusty Patel - Last Filed: 01/06/20 20:57> - General Chief Complaint: Chest Pain Stated Complaint: CHEST PAIN Time Seen by Provider: 01/06/20 18:55 - History of Present Illness HPI narrative: 59-year-old female presents to the ED with chest pain. Patient states that the pain started in her chest about 1 hour ago. She describes the pain under her left breast with no radiation. She states that it is a heaviness. She rates this type of pain 6 out of 10. Exacerbating factors include movement. Alleviating factors include rest. She denies any recent shortness of breath. Patient did have 3 stents placed [address] Sierra. Patient has hypertension, hyperlipidemia and smoking and previous cardiac history as risk factors. Patient also states that she has had a couple episodes where she has passed out. She states this is been going on for about 2 weeks. Patient denies any recent fever shakes or chills. Patient also denies any recent nausea vomiting or diarrhea. Patient has no other symptoms. (Shan Hernandez) 8:00 PM: Patient seen and examined. She also tells me that she was just recently in [facility] for pneumonia. Released on last Friday. States she is just about finished with a Medrol Dosepak and Levaquin. States her current chest pain feels like her previous heart pain. States that she called Dr. Sierra at about 630 and he advised her to come into the emergency room. She states the last time she had a syncopal episode was this morning. She is chronically on oxygen, 3 to 4 L. (Rusty Patel) - Related Data Home Medications Medication Instructions Recorded Confirmed promethazine 25 mg tablet 25 mg PO Q6H PRN 01/15/19 01/06/20 methylPREDNISolone 4 mg PO DAILY 01/06/20 01/06/20 [Methylprednisolone] Previous Rx's Medication Instructions Recorded albuterol sulfate 2.5 mg INHALATION QID PRN #180 ml 04/21/19 atorvastatin 40 mg tablet 40 mg PO HS #90 tab 07/13/19 metoprolol succinate 100 mg 100 mg PO DAILY #90 tab 09/24/19 tablet,extended release 24 hr duloxetine 60 mg capsule,delayed 60 mg PO BID #180 cap 10/13/19 release lisinopril 20 1 tab PO BID #180 tab 10/26/19 mg-hydrochlorothiazide 12.5 mg tablet trazodone 150 mg tablet 150 mg PO HS #90 tab 10/26/19 albuterol sulfate 90 mcg/actuation 1 puff INHALATION Q4-6H PRN #18 g 10/27/19 aerosol inhaler montelukast 10 mg tablet 10 mg PO HS #90 tab 11/25/19 alprazolam 1 mg tablet 1 mg PO TID PRN #90 tab 12/28/19 Allergies Allergy/AdvReac Type Severity Reaction Status Date / Time codeine [CODEINE] Allergy Unknown N/V Verified 12/28/19 13:07 ketorolac [KETOROLAC] Allergy Unknown Unknown Verified 12/28/19 13:07 allergy reaction meperidine [MEPERIDINE] Allergy Unknown Unknown Verified 12/28/19 13:07 allergy reaction tramadol [TRAMADOL] Allergy Unknown Unknown Verified 12/28/19 13:07 allergy reaction [facility] History - Hepatitis A Screen Drug use history?: No High risk sexual behaviors?: No History of sexually transmitted infection?: No Currently employed?: No Childcare worker?: No Do you have indoor plumbing?: Yes Do you have electricity?: Yes I have reviewed the patient's past medical history: Yes Medical History: Reports:: Arrhythmia, Atrial Fibrillation, Coronary Artery Disease, Deep Vein Thrombosis, Gastroesophageal Reflux Disease(GERD), Hyperlipidemia, Hypertension, Peripheral Artery Disease Denies:: Cancer, Diabetes Mellitus Type 1, Diabetes Mellitus Type 2, Internal Pacemaker, MRSA Other Medical History: Reports: Hoarseness Comment: Pancreatitis, FLACO Laterality Cases: Bilateral: Tonsillectomy Other Surgeries: Yes: No Previous Surgery, Appendectomy, Cardiac Catheterization, Cholecystectomy, Colonoscopy, Coronary Stent, EGD, Hysterectomy-Total, Tubal Ligation, Other. No: Pacemaker Amputation: No Fractures: Yes Comment: port placement right chest, pancreatic stents, stretching of throat - Social History Smoking Status: Current every day smoker Tobacco Type: cigarettes # Packs/Day (cigarettes): 0 #Yrs smoked (if former smoker): 40 Alcohol Intake: never Alcohol Intake Frequency:: other Substance Use Type: denies use (she states that seh experimented some when God was a boy. Nothing in recent years. ) Occupational Status: other Housing: house Household Members: spouse, family Family Hx:: Hyperlipidemia, Hypertension, Stroke <Shan Hernandez - Last Filed: 01/06/20 19:57> - Hepatitis A Screen Attestation statement:: This patient has been screened for Hepatitis A risk factors. ROS Obtained: Yes All systems reviewed & no additional complaints - Constitutional Constitutional: Reports system reviewed and no additional complaints, except as docu - Eyes Eyes: Reports system reviewed and no additional complaints, except as docu - ENT Ears, Nose, Mouth, and Throat: Reports system reviewed and no additional complaints, except as docu - Cardiovascular Cardiovascular: Reports system reviewed and no additional complaints, except as docu - Respiratory Respiratory: Yes system reviewed and no additional complaints, except as docu - Gastrointestinal Gastrointestingal: Reports: system reviewed and no additional complaints, except as docu - Genitourinary Male Genitourinary: Reports system reviewed and no additional complaints, except as docu Female Genitourinary: Reports system reviewed and no additional complaints, except as docu - Musculoskeletal Musculoskeletal: Reports system reviewed and no additional complaints, except as docu - Integumentary/Breasts Skin/Breast: Reports system reviewed and no additional complaints, except as docu - Neurologic Neurologic: Reports system reviewed and no additional complaints, except as docu - Endocrine Endocrine: Reports system reviewed and no additional complaints, except as docu - Hematologic/Lymphatic Henatologic/Lymphatic: Reports system reviewed and no additional complaints, except as docu - Allergic/Immunologic Allergic/Immunologic: Reports system reviewed and no additional complaints, except as docu <Shan Hernandez - Last Filed: 01/06/20 19:57> Physical Exam - General General appearance: alert, in no apparent distress - Head Head exam: atraumatic, normocephalic - Eye Eye exam: Present: normal appearance, PERRL, EOMI - ENT ENT exam: Present: normal exam, normal oropharynx - Neck Neck exam: Present: normal inspection, full ROM - Chest Chest inspection: Present: normal inspection - Respiratory Respiratory exam: Present: normal lung sounds bilaterally - Cardiovascular Cardiovascular exam: Present: regular rate, normal rhythm - Abdominal Exam Abdominal exam: Present: soft - Extremities Exam Extremities exam: Present: normal inspection, full ROM - Back Exam Back exam: Present: normal inspection, full ROM - Neurological Exam Neurological exam: Present: alert, oriented X3, CN II-XII intact, normal gait <Shan Hernandez - Last Filed: 01/06/20 19:57>
[2020-01-06 19:31] LABS: Basophils # 0.1 K/mm3 (0-0.2); Basophils % 0.4 % (0.1-2.0); Eosinophils # 0.5 K/mm3 (0.0-0.4); Eosinophils % 2.2 % (0.1-12.0); Hemoglobin 14.2 g/dL (12.2-16.2); Lymphocytes # 7.1 K/mm3 (0.7-4.5); Mean Corpuscular HGB Conc 32.3 g/dL (31.8-35.4); Mean Corpuscular Volume 94.3 fl (81-99); Monocytes % 4.5 % (1.7-9.3); Neutrophils # 13.5 K/mm3 (1.8-7.8); Neutrophils % 60.8 % (37.0-80.0); Platelet Count 373 K/mm3 (142-424); Red Blood Count 4.67 M/mm3 (4.20-5.40); Red Cell Distribution Width 13.8 % (11.5-17.5); White Blood Count 22.2 K/mm3 (4.8-10.8)
[2020-01-06 19:43] LABS: Alanine Aminotransferase 14 U/L (12-78); Albumin Level 3.3 gm/dL (3.4-5.0); Alkaline Phosphatase 109 U/L (46-116); Aspartate Amino Transferase 6 U/L (15-37); Bilirubin,Direct 0.1 mg/dL (0.0-0.2); Bilirubin,Indirect 0.2 mg/dL (0.0-0.9); Bilirubin,Total 0.3 mg/dL (0.2-1.0); Blood Urea Nitrogen 25 mg/dL (7-18); Calcium 8.2 mg/dL (8.5-10.1); Carbon Dioxide 32 mmol/L (21.0-32.0); Chloride 98 mmol/L (98-107); Glucose 101 mg/dL (74-106); Sodium 135 mmol/L (136-145); Total Protein,Serum 6.6 gm/dL (6.4-8.2)
[2020-01-06 20:04] LABS: Eosinophils % 1 % (0-3); Lymphocytes % 27 % (10-50); Monocytes % 5 % (2-9); Neutrophils % 67 % (42-76); RBC Morphology Normal; Total Cells Counted 100
[2020-01-07 06:59] LABS: Microscopic, Urine URINE MICROSCOPIC (MICROSCOPIC)
--- NOTE | 2020-01-07 07:12 | Pharmacy Consult Notes ---
[facility] Pharmacy VTE Monitoring - Patient Demographics Admission date: 01/06/20 Report Date: 01/07/20 Time: 07:12 Allergies/Adverse Reactions: Patient Allergies codeine [CODEINE] Allergy (Intermediate, Verified 01/06/20 22:05) N/V ketorolac [KETOROLAC] Allergy (Intermediate, Verified 01/06/20 22:05) Hives meperidine [MEPERIDINE] Allergy (Intermediate, Verified 01/06/20 22:05) Hives tramadol [TRAMADOL] Allergy (Intermediate, Verified 01/06/20 22:05) Hives ciprofloxacin Adverse Reaction (Severe, Verified 01/06/20 22:08) Interacts with cymbalta Height: 1.68 m Weight: 107.133 kg Patient Problems: Current Active Problems Atypical chest pain (Acute) Syncope (Acute) - VTE Risk Labs: VTE Related Lab Results Hgb 14.2 g/dL (12.2-16.2) 01/06/20 19:25 Hct 44.0 % (37.0-47.0) 01/06/20 19:25 Plt Count 373 K/mm3 (142-424) 01/06/20 19:25 BUN 25 mg/dL (7-18) H 01/06/20 19:25 Creatinine 1.28 mg/dL (0.55-1.02) H 01/06/20 19:25 Estimated Creat Clear 80 mL/min (50-200) 01/06/20 19:25 Was VTE Risk Assessment Performed: Yes VTE Score: 6 VTE Risk Level: Moderate Risk - Prophylaxis VTE Prophylaxis Ordered?: Yes Types of VTE Prophylaxis: TEDS Knee High Location of Applied Device: Bilateral Lower Extremeties
[2020-01-07 07:16] LABS: Appearance,Urine CLEAR (Clear); Bilirubin,Urine Negative (Negative); Blood, Urine Negative (Negative); Color,Urine YELLOW (Yellow); Glucose,Urine (UA) Negative (Negative); Ketones,Urine Negative (Negative); Leukocyte Esterase,Urine Negative (Negative); PH,Urine 5.5 (5.0-8.5); Protein,Urine Negative (Negative); Specific Gravity, Urine 1.015 (1.005-1.030); Urobilinogen,Urine 0.2 EU/dl (0.2)
[2020-01-07 07:33] LABS: Bacteria,Urine 2+ /lpf; Mucus,Urine Trace /lpf; Yeast,Urine 2+ /lpf
--- NOTE | 2020-01-07 07:56 | Consult Report ---
History of Present Illness Consult date: 01/07/20 Requesting physician: Sea So Consult reason: chest pain Chief complaint: chest pain, syncope Additional Medical History:: 1. Coronary disease A. Hospitalization for chest pain, 01/2018 B. Abnormal stress test indicative of reversible ischemia anterior and inferior areas C. Cardiac catheterization, 01/2018, results: ANGIOGRAPHIC RESULTS: 1. The left main artery normal 2. The left anterior descending artery has a proximal concentric 70% stenosis best appreciated and the ONEILL caudal view. The remaining vessel has mild luminal irregularities. The first large diagonal artery has an ostial proximal 60% stenosis. 3. The ramus intermedius is a large vessel with a ostial proximal 40-50% stenosis 4. The circumflex artery is a nondominant vessel with mild 20-30% proximal disease 5. The right coronary artery is a dominant vessel with proximal 30% followed by additional concentric 70% followed by additional 50% mid vessel stenosis 6. The ONEILL ventriculogram reveals normal 65% 7. The left ventricular end-diastolic pressure 20 mmHg IMPRESSION: 1. Severe 2 vessel coronary artery disease as described above which correlated perfectly to the abnormal Myoview with both anterior and inferior ischemia 2. Successful stenting the proximal to mid LAD stent severe disease reduced to 0% with 2 drug-eluting stents 3. Successful stenting of the proximal to mid dominant right coronary artery severe disease reduced to 0% with 1 drug-eluting stent 4. Normal ejection fraction 5. Mildly elevated LVEDP D. Cardiac cath, 01/2018, patent stents. LVEF 65% with LVEDP of 20 mm Hg 2. Hypertension A. Echo, 01/2018 2D 1. Left atrium is mildly enlarged, left ventricle is normal size, mild concentric left ventricular hypertrophy, visually estimated ejection fraction 55% with no obvious regional wall motion abnormality. 2. The right atrium and right ventricle are normal size and contractility. 3. The aortic valve is minimally thickened and fibrosed. 4. The mitral and tricuspid valve leaflets are minimally thickened. 5. The pulmonic valve is poorly visualized. 6. No significant pericardial effusion noted. DOPPLER INTERROGATION: Doppler interrogation of the aortic, mitral and tricuspid valvular presence of mild mitral and tricuspid regurgitation, tricuspid and jet velocity is insufficient for calculation of the right ventricular systolic pressure, grade 1 diastolic dysfunction seen with tissue Doppler evidence of raised left atrial pressure. CONCLUSION: 1. Mildly enlarged left atrium, normal left ventricular size, mild concentric left ventricular hypertrophy, visually estimated ejection fraction 55% with no obvious regional wall motion abnormality, grade 1 diastolic dysfunction seen with tissue Doppler evidence of raised left atrial pressure. 2. Mild mitral and tricuspid regurgitation 3. No significant pericardial effusion noted. 3. History of pancreatitis A. Indwelling port for many years 4. Tobacco use, long history, still smoking A. COPD B. FLACO 5. Obesity 6. History of atrial fibrillation, on Eliquis therapy A. History of CVA in remote past 7. History of anxiety and depression, stemming from the of her 's (1 from an [place] the second 1 from intestinal issues leading to sepsis )and her 20-year-old son from an overdose in 2003 A. Patient does see mental health regularly History of present illness: 59-year-old white female with history of coronary artery disease, COPD, hypertension in the past and hyperlipidemia presented to the emergency department by EMS for evaluation of chest pain and syncope. Patient relates 6 months history of increasing chest pressure with exertion that resolves with rest. She has failed to come back to see us for follow-up appointment. She also relates 3 episodes of passing out over the last 2 weeks (1 while putting away clothing in her bedroom without warning, second 1 occurring when while in the kitchen making coffee without warning and the third 1 while at the doctor's office with her son and occurred without warning but while patient was laughing). No associated seizure activity with any of these. She has had some intermittent episodes of nausea and vomiting but were not associated with these episodes of passing out. Patient does relate lightheadedness and dizziness with standing at times and blood pressure after admission through the ER is noted to be in the 80/60 mmHg range. Patient was given nitroglycerin in route due to chest pain yesterday but developed a headache and did require morphine for relief. She had no further chest pain overnight and has not had any nitroglycerin since the single dose given to her in the ER. Chest pressure did improve after sublingual nitroglycerin. Troponins overnight have returned normal x3. EKG shows sinus rhythm with no acute ST segment changes. Patient has a long history of anxiety and depression stemming from the remote sudden deaths of her two husbands and her son (from an overdose in 2003). Patient does not see mental health provider on a regular basis. She also suffers from chronic back pain with degenerative disc disease for which she takes chronic pain medication. [facility] History Medical History: Reports:: Arrhythmia, Atrial Fibrillation, Coronary Artery Disease, Deep Vein Thrombosis, Gastroesophageal Reflux Disease(GERD), Hyperlipidemia, Hypertension, Myocardial Infarction, Peripheral Artery Disease Denies:: Cancer, Diabetes Mellitus Type 1, Diabetes Mellitus Type 2, Internal Pacemaker, MRSA *Have you ever received a pneumonia vaccine?: Yes *Have you received a flu vaccine this season?: Yes Other Medical History: Reports: Hoarseness Laterality Cases: Bilateral: Tonsillectomy Other Surgeries: Yes: No Previous Surgery, Appendectomy, Cardiac Catheterization (3 STENTS), Cholecystectomy, Colonoscopy, Coronary Stent, EGD, Hysterectomy- Total, Tubal Ligation, Other. No: Pacemaker Amputation: No Fractures: Yes - *Social History Educational Level: Completed College Smoking Status: Light tobacco smoker Tobacco Type: cigarettes # Packs/Day (cigarettes): 1 #Yrs smoked (if former smoker): 40 Alcohol Intake: never Alcohol Intake Frequency:: other Substance Use Type: denies use (she states that dawit experimented some when God was a boy. Nothing in recent years. ) *Occupational Status:: disabled Housing: house Household Members: significant other, children *Travel in the last 8 weeks: None Family Hx:: No significant family history Meds Home Medications Medication Instructions Recorded Confirmed Type promethazine 25 mg tablet 25 mg PO Q6H PRN 01/15/19 01/06/20 History albuterol sulfate 2.5 mg INHALATION QID PRN #180 ml 04/21/19 01/06/20 Rx atorvastatin 40 mg tablet 40 mg PO HS #90 tab 07/13/19 01/06/20 Rx metoprolol succinate 100 mg 100 mg PO DAILY #90 tab 09/24/19 01/06/20 Rx tablet,extended release 24 hr duloxetine 60 mg capsule,delayed 60 mg PO BID #180 cap 10/13/19 01/06/20 Rx release lisinopril 20 1 tab PO BID #180 tab 10/26/19 01/06/20 Rx mg-hydrochlorothiazide 12.5 mg tablet trazodone 150 mg tablet 150 mg PO HS #90 tab 10/26/19 01/06/20 Rx albuterol sulfate 90 mcg/actuation 1 puff INHALATION Q4-6H PRN #18 g 10/27/19 01/06/20 Rx aerosol inhaler montelukast 10 mg tablet 10 mg PO HS #90 tab 11/25/19 01/06/20 Rx alprazolam 1 mg tablet 1 mg PO TID PRN #90 tab 12/28/19 01/06/20 Rx Apixaban [Eliquis] 5 mg PO BID 01/06/20 01/06/20 History levoFLOXacin [Levaquin 500mg 500 mg PO DAILY 01/06/20 01/06/20 History tab] methylPREDNISolone 4 mg PO DAILY 01/06/20 01/06/20 History [Methylprednisolone] Allergies Allergy/AdvReac Type Severity Reaction Status Date / Time codeine [CODEINE] Allergy Intermediate N/V Verified 01/06/20 22:05 ketorolac [KETOROLAC] Allergy Intermediate Hives Verified 01/06/20 22:05 meperidine [MEPERIDINE] Allergy Intermediate Hives Verified 01/06/20 22:05 tramadol [TRAMADOL] Allergy Intermediate Hives Verified 01/06/20 22:05 ciprofloxacin AdvReac Severe Interacts Verified 01/06/20 22:08 with cymbalta Review of Systems - Review of Systems Review of systems:: pertinent systems reviewed and negative unless documented below - *Cardiovascular Reports chest pain, Reports shortness of breath with activity - *Respiratory Reports shortness of breath with activity - *Gastrointestinal Reports nausea, Reports vomiting, Denies abdominal pain - *Genitourinary Denies blood in urine - *Musculoskeletal Reports back pain - *Neurologic Reports dizziness, Reports weakness Exam Vital signs and Labs for Last 24 Hours: Temp Pulse Resp BP Pulse Ox 98.0 F 60 14 88/62 L 93 L 01/07/20 04:00 01/07/20 07:50 01/07/20 06:15 01/07/20 07:50 01/07/20 04:00 Laboratory Results - last 24 hr 01/06/20 19:25: WBC 22.2 H*, RBC 4.67, Hgb 14.2, Hct 44.0, MCV 94.3, MCH 30.4, MCHC 32.3, RDW 13.8, Plt Count 373, MPV 8.0, Neut % (Auto) 60.8, Lymph % (Auto) 32.0, [place] % (Auto) 4.5, Eos % (Auto) 2.2, Baso % (Auto) 0.4, Neut # (Auto) 13.5 H, Lymph # (Auto) 7.1 H, [place] # (Auto) 1.0, Eos # (Auto) 0.5 H, Baso # (Auto) 0.1, Total Counted 100, Neutrophils % (Manual) 67, Lymphocytes % (Manual) 27, Monocytes % (Manual) 5, Eosinophils % (Manual) 1, Platelet Estimate Normal, RBC Morphology Normal 01/06/20 19:25: Sodium 135 L, Potassium 4.0, Chloride 98, Carbon Dioxide 32, Anion Gap 9.0, BUN 25 H, Creatinine 1.28 H, Estimated Creat Clear 80, Estimated GFR 43 L, Est GFR ( Amer) 52 L, Glucose 101, Calcium 8.2 L, Total Bilirubin 0.3, Direct Bilirubin 0.1, Indirect Bilirubin 0.2, AST 6 L, ALT 14, Alkaline Phosphatase 109, Troponin I < 0.02, Total Protein 6.6, Albumin 3.3 L 01/06/20 19:25: ESR 8 01/06/20 19:25: C-Reactive Protein < 0.2 01/06/20 19:25: B-Natriuretic Peptide 8 01/06/20 20:14: Lactate 0.5 01/06/20 22:48: Troponin I < 0.02 01/07/20 00:55: POC Glucose 125 H 01/07/20 01:11: Troponin I < 0.02 01/07/20 06:40: Urine Color Yellow, Urine Appearance Clear, Urine pH 5.5, Ur Specific [place] 1.015, Urine Protein Negative, Urine Glucose (UA) Negative, Urine Ketones Negative, Urine Blood Negative, Urine Nitrate Negative, Urine Bilirubin Negative, Urine Urobilinogen 0.2, Ur Leukocyte Esterase Negative, [place] RBC 10-20, Urine WBC 5-10, Ur Squamous Epith Cells 3-5, Urine Bacteria 2+, Urine Mucus Trace, Urine Yeast 2+ I & O for Last 24 hours: Intake & Output 01/04/20 01/05/20 01/06/20 01/07/20 11:59 11:59 11:59 11:59 Intake Total 3103 / 3103 Output Total 950 / 950 Balance 2153 / 2153 Weight 236 lb 3 oz - *Routine HEENT Exam Head: Present: normocephalic Eye: Present: EOMI, PERRL ENT: Present: mucous membranes moist - *Routine Neck Exam Present: supple. Absent: JVD, carotid bruit - *Routine Respiratory Exam Present: CTA bilaterally, diminished air movement. Absent: accessory muscle use, rales, rhonchi, wheezes - *Routine Cardiovascular Exam Present: RRR. Absent: murmur, gallop, rubs - *Routine Abdominal Exam Present: soft. Absent: tenderness, distended, guarding - *Routine Extremities Exam Absent: edema, calf tenderness - *Routine Neurological Exam Present: alert, oriented X3, moving all extremities Assessment and Plan (1) H/O class III angina pectoris Current visit: Yes Status: Acute Category: Medical Code(s): Z86.79 - Personal history of other diseases of the circulatory system (2) Orthostatic dizziness Current visit: Yes Status: Acute Category: Medical Code(s): R42 - Dizziness and giddiness (3) Syncope Current visit: Yes Status: Acute Qualifiers: Syncope type: unspecified Qualified Code(s): R55 - Syncope and collapse Category: Medical Code(s): R55 - Syncope and collapse (4) COPD (chronic obstructive pulmonary disease) Current visit: No Status: Acute Qualifiers: COPD type: unspecified COPD Qualified Code(s): J44.9 - Chronic obstructive pulmonary disease, unspecified Category: Medical Code(s): J44.9 - Chronic obstructive pulmonary disease, unspecified (5) Coronary artery disease Current visit: No Status: Acute Qualifiers: Coronary Disease-Associated Artery/Lesion type: [place] artery [place] vs. transplanted heart: [place] heart Associated angina: with stable angina Qualified Code(s): I25.118 - Atherosclerotic heart disease of [place] coronary artery with other forms of angina pectoris Category: Medical Code(s): I25.10 - Atherosclerotic heart disease of [place] coronary artery without angina pectoris (6) Hypotension Current visit: No Status: Acute Qualifiers: Hypotension type: unspecified hypotension type Qualified Code(s): I95.9 - Hypotension, unspecified Category: Medical Code(s): I95.9 - Hypotension, unspecified - Assessment and plan all Dx Assessment and Plan for all problems:: 1. Exertional chest pressure and tightness consistent with angina pectoris class III. Patient would not be able to exercise on a treadmill due to chronic back pain and we have no nuclear imaging capability at this time. Recommend proceeding with left heart catheterization due to progressive angina symptoms that patient relates being similar to those she suffered prior to coronary stent ing in 2018. 2. Hypotension with orthostatic dizziness, likely the cause for her syncope. Recommend holding metoprolol and lisinopril and following blood pressure. 3. COPD with continued tobacco use and clubbing of digits. 4. History of pancreatitis with chronic indwelling port. No recent admission for pancreatitis. 5. History of atrial fibrillation for which the patient is on anticoagulation therapy in the form of Eliquis, hold for cardiac cath today 6. Further recommendations to follow pending above results
--- NOTE | 2020-01-07 09:24 | History & Physical Report ---
*Admission Date: 01/06/20 *Chief complaint: cp *History of present illness: 59-year-old white female with history of coronary artery disease, COPD, hypertension in the past and hyperlipidemia presented to the emergency department by EMS for evaluation of chest pain and syncope. Patient relates 6 months history of increasing chest pressure with exertion that resolves with rest. She has failed to come back to see us for follow-up appointment. She also relates 3 episodes of passing out over the last 2 weeks (1 while putting away clothing in her bedroom without warning, second 1 occurring when while in the kitchen making coffee without warning and the third 1 while at the doctor's office with her son and occurred without warning but while patient was laughing). No associated seizure activity with any of these. She has had some intermittent episodes of nausea and vomiting but were not associated with these episodes of passing out. Patient does relate lightheadedness and dizziness with standing at times and blood pressure after admission through the ER is noted to be in the 80/60 mmHg range. Patient was given nitroglycerin in route due to chest pain yesterday but developed a headache and did require morphine for relief. She had no further chest pain overnight and has not had any nitrogly cerin since the single dose given to her in the ER. Chest pressure did improve after sublingual nitroglycerin. Troponins overnight have returned normal x3. EKG shows sinus rhythm with no acute ST segment changes. Patient has a long history of anxiety and depression stemming from the remote sudden deaths of her two husbands and her son (from an overdose in 2003). Patient does not see mental health provider on a regular basis. She also suffers from chronic back pain with degenerative disc disease for which she takes chronic pain medication.- per za gutiérrez [facility] History I have reviewed the patient's past medical history: Yes Medical History: Reports:: Arrhythmia, Atrial Fibrillation, Coronary Artery Disease, Deep Vein Thrombosis, Gastroesophageal Reflux Disease(GERD), Hyperlipidemia, Hypertension, Myocardial Infarction, Peripheral Artery Disease Denies:: Cancer, Diabetes Mellitus Type 1, Diabetes Mellitus Type 2, Internal Pacemaker, MRSA *Have you ever received a pneumonia vaccine?: Yes *Have you received a flu vaccine this season?: Yes Other Medical History: Reports: Hoarseness Laterality Cases: Bilateral: Tonsillectomy Other Surgeries: Yes: No Previous Surgery, Appendectomy, Cardiac Catheterization (3 STENTS), Cholecystectomy, Colonoscopy, Coronary Stent, EGD, Hysterectomy- Total, Tubal Ligation, Other. No: Pacemaker Amputation: No Fractures: Yes - *Social History Educational Level: Completed College Smoking Status: Light tobacco smoker Tobacco Type: cigarettes # Packs/Day (cigarettes): 1 #Yrs smoked (if former smoker): 40 Alcohol Intake: never Alcohol Intake Frequency:: other Substance Use Type: denies use (she states that byron experimented some when God was a boy. Nothing in recent years. ) *Occupational Status:: disabled Housing: house Household Members: significant other, children *Travel in the last 8 weeks: None Family Hx:: No significant family history Review of Systems - Review of Systems Review of systems:: pertinent systems reviewed and negative unless documented below - Constitutional Denies body ache(s), Denies fatigue - Eyes Denies blurry vision - ENT Denies nasal discharge - *Cardiovascular Reports chest pain, Reports chest pain at rest, Reports chest pain with activity - *Respiratory Reports shortness of breath - *Gastrointestinal Reports nausea, Denies vomiting - *Genitourinary Denies urinary incontinence - *Musculoskeletal Denies decreased muscle mass - Integumentary/Breasts Denies change in hair, Denies rash - *Neurologic Reports dizziness, Reports weakness, Denies loss of vision - Psychiatric Denies anxiety - Endocrine Denies flushing - Hematologic/Lymphatic Denies enlarged lymph nodes - Allergic/Immunologic Denies itchy eyes Meds Home Medications Medication Instructions Recorded Confirmed Type promethazine 25 mg tablet 25 mg PO Q6H PRN 01/15/19 01/06/20 History albuterol sulfate 2.5 mg INHALATION QID PRN #180 ml 04/21/19 01/06/20 Rx metoprolol succinate 100 mg 100 mg PO DAILY #90 tab 09/24/19 01/06/20 Rx tablet,extended release 24 hr duloxetine 60 mg capsule,delayed 60 mg PO BID #180 cap 10/13/19 01/06/20 Rx release lisinopril 20 1 tab PO BID #180 tab 10/26/19 01/06/20 Rx mg-hydrochlorothiazide 12.5 mg tablet trazodone 150 mg tablet 150 mg PO HS #90 tab 10/26/19 01/06/20 Rx albuterol sulfate 90 mcg/actuation 1 puff INHALATION Q4-6H PRN #18 g 10/27/19 01/06/20 Rx aerosol inhaler montelukast 10 mg tablet 10 mg PO HS #90 tab 11/25/19 01/06/20 Rx alprazolam 1 mg tablet 1 mg PO TID PRN #90 tab 12/28/19 01/06/20 Rx Apixaban [Eliquis] 5 mg PO BID 01/06/20 01/06/20 History levoFLOXacin [Levaquin 500mg 500 mg PO DAILY 01/06/20 01/06/20 History tab] methylPREDNISolone 4 mg PO DAILY 01/06/20 01/06/20 History [Methylprednisolone] Atorvastatin Calcium [Atorvastatin 40 mg PO DAILY 01/07/20 01/07/20 History 40mg Tab] Allergies Allergy/AdvReac Type Severity Reaction Status Date / Time codeine [CODEINE] Allergy Intermediate N/V Verified 01/06/20 22:05 ketorolac [KETOROLAC] Allergy Intermediate Hives Verified 01/06/20 22:05 meperidine [MEPERIDINE] Allergy Intermediate Hives Verified 01/06/20 22:05 tramadol [TRAMADOL] Allergy Intermediate Hives Verified 01/06/20 22:05 ciprofloxacin AdvReac Severe Interacts Verified 01/06/20 22:08 with cymbalta Exam Vital signs and Labs for Last 24 Hours: Temp Pulse Resp BP Pulse Ox 98.0 F 60 14 88/62 L 93 L 01/07/20 04:00 01/07/20 07:50 01/07/20 06:15 01/07/20 07:50 01/07/20 04:00 Laboratory Results - last 24 hr 01/06/20 19:25: WBC 22.2 H*, RBC 4.67, Hgb 14.2, Hct 44.0, MCV 94.3, MCH 30.4, MCHC 32.3, RDW 13.8, Plt Count 373, MPV 8.0, Neut % (Auto) 60.8, Lymph % (Auto) 32.0, [place] % (Auto) 4.5, Eos % (Auto) 2.2, Baso % (Auto) 0.4, Neut # (Auto) 13.5 H, Lymph # (Auto) 7.1 H, [place] # (Auto) 1.0, Eos # (Auto) 0.5 H, Baso # (Auto) 0.1, Total Counted 100, Neutrophils % (Manual) 67, Lymphocytes % (Manual) 27, Monocytes % (Manual) 5, Eosinophils % (Manual) 1, Platelet Estimate Normal, RBC Morphology Normal 01/06/20 19:25: Sodium 135 L, Potassium 4.0, Chloride 98, Carbon Dioxide 32, Anion Gap 9.0, BUN 25 H, Creatinine 1.28 H, Estimated Creat Clear 80, Estimated GFR 43 L, Est GFR ( Amer) 52 L, Glucose 101, Calcium 8.2 L, Total Bilirubin 0.3, Direct Bilirubin 0.1, Indirect Bilirubin 0.2, AST 6 L, ALT 14, Alkaline Phosphatase 109, Troponin I < 0.02, Total Protein 6.6, Albumin 3.3 L 01/06/20 19:25: ESR 8 01/06/20 19:25: C-Reactive Protein < 0.2 01/06/20 19:25: B-Natriuretic Peptide 8 01/06/20 20:14: Lactate 0.5 01/06/20 22:48: Troponin I < 0.02 01/07/20 00:55: POC Glucose 125 H 01/07/20 01:11: Troponin I < 0.02 01/07/20 06:40: Urine Color Yellow, Urine Appearance Clear, Urine pH 5.5, Ur Specific [place] 1.015, Urine Protein Negative, Urine Glucose (UA) Negative, Urine Ketones Negative, Urine Blood Negative, Urine Nitrate Negative, Urine Bilirubin Negative, Urine Urobilinogen 0.2, Ur Leukocyte Esterase Negative, Urine RBC 10-20, Urine WBC 5-10, Ur Squamous Epith Cells 3-5, Urine Bacteria 2+, Urine Mucus Trace, Urine Yeast 2+ I & O for Last 24 hours: Intake & Output 01/04/20 01/05/20 01/06/20 01/07/20 11:59 11:59 11:59 11:59 Intake Total 3103 / 3103 Output Total 950 / 950 Balance 2153 / 2153 Weight 236 lb 3 oz - Constitutional no acute distress - *Routine HEENT Exam Head: Present: normocephalic Eye: Present: PERRL ENT: Present: mucous membranes moist - *Routine Neck Exam Present: supple. Absent: lymphadenopathy - Routine Chest/Breast/Axilla Exam Comments: port to rt chest - *Routine Respiratory Exam Present: CTA bilaterally - *Routine Cardiovascular Exam Present: RRR - *Routine Abdominal Exam Present: soft, normoactive bowel sounds. Absent: tenderness - *Routine Extremities Exam Present: full ROM, normal capillary refill. Absent: cyanosis, clubbing, edema - *Routine Skin Exam Present: warm. Absent: rash - *Routine Neurological Exam Present: alert, oriented X3 - Routine Psychiatric Exam Present: normal affect Assessment and Plan (1) H/O class III angina pectoris Current visit: Yes Status: Acute Category: Medical Code(s): Z86.79 - Personal history of other diseases of the circulatory system (2) Orthostatic dizziness Current visit: Yes Status: Acute Category: Medical Code(s): R42 - Dizziness and giddiness (3) Syncope Current visit: Yes Status: Acute Qualifiers: Syncope type: unspecified Qualified Code(s): R55 - Syncope and collapse Category: Medical Code(s): R55 - Syncope and collapse (4) COPD (chronic obstructive pulmonary disease) Current visit: No Status: Acute Qualifiers: COPD type: unspecified COPD Qualified Code(s): J44.9 - Chronic obstructive pulmonary disease, unspecified Category: Medical Code(s): J44.9 - Chronic obstructive pulmonary disease, unspecified (5) Coronary artery disease Current visit: No Status: Acute Qualifiers: Coronary Disease-Associated Artery/Lesion type: [place] artery [place] vs. transplanted heart: [place] heart Associated angina: with stable angina Qualified Code(s): I25.118 - Atherosclerotic heart disease of [place] coronary artery with other forms of angina pectoris Category: Medical Code(s): I25.10 - Atherosclerotic heart disease of [place] coronary artery without angina pectoris (6) Hypotension Current visit: No Status: Acute Qualifiers: Hypotension type: unspecified hypotension type Qualified Code(s): I95.9 - Hypotension, unspecified Category: Medical Code(s): I95.9 - Hypotension, unspecified - Assessment and plan all Dx Assessment and Plan for all problems:: rox to see pt later today cardiology consult heart cath adjust meds
[2020-01-07 09:48] LABS: Basophils # 0.1 K/mm3 (0-0.2); Basophils % 0.6 % (0.1-2.0); Eosinophils # 0.3 K/mm3 (0.0-0.4); Eosinophils % 2.2 % (0.1-12.0); Hematocrit 42.2 % (37.0-47.0); Hemoglobin 13.2 g/dL (12.2-16.2); Lymphocytes # 3.7 K/mm3 (0.7-4.5); Lymphocytes % 29.4 % (10-50); Mean Corpuscular HGB Conc 31.3 g/dL (31.8-35.4); Mean Platelet Volume 8.1 fl (7.4-10.4); Monocytes # 0.7 K/mm3 (0.1-1.0); Monocytes % 5.2 % (1.7-9.3); Neutrophils # 7.9 K/mm3 (1.8-7.8); Neutrophils % 62.6 % (37.0-80.0); Platelet Count 319 K/mm3 (142-424); Red Blood Count 4.26 M/mm3 (4.20-5.40); Red Cell Distribution Width 13.8 % (11.5-17.5); White Blood Count 12.6 K/mm3 (4.8-10.8)
[2020-01-07 09:50] LABS: Anion Gap 7.6 mEq/L (5-15)
[2020-01-07 10:03] LABS: Calcium 7.2 mg/dL (8.5-10.1)
[2020-01-08 05:38] LABS: Basophils # 0.1 K/mm3 (0-0.2); Basophils % 0.6 % (0.1-2.0); Eosinophils # 0.3 K/mm3 (0.0-0.4); Eosinophils % 2.6 % (0.1-12.0); Hematocrit 43.7 % (37.0-47.0); Hemoglobin 13.7 g/dL (12.2-16.2); Lymphocytes # 3.2 K/mm3 (0.7-4.5); Lymphocytes % 30.3 % (10-50); Mean Corpuscular HGB Conc 31.4 g/dL (31.8-35.4); Mean Corpuscular Volume 97.5 fl (81-99); Mean Platelet Volume 8.1 fl (7.4-10.4); Monocytes # 0.5 K/mm3 (0.1-1.0); Neutrophils # 6.4 K/mm3 (1.8-7.8); Neutrophils % 61.5 % (37.0-80.0); Platelet Count 322 K/mm3 (142-424); Red Blood Count 4.48 M/mm3 (4.20-5.40); Red Cell Distribution Width 13.7 % (11.5-17.5); White Blood Count 10.4 K/mm3 (4.8-10.8)
[2020-01-08 05:46] LABS: Anion Gap 10.4 mEq/L (5-15); Calcium 7.8 mg/dL (8.5-10.1)
--- NOTE | 2020-01-08 08:09 | Discharge Summary ---
General - General Admission date:: 01/06/20 Discharge date: 01/08/20 HPI HPI: 59-year-old white female with history of coronary artery disease, COPD, hypertension in the past and hyperlipidemia presented to the emergency department by EMS for evaluation of chest pain and syncope. Patient relates 6 months history of increasing chest pressure with exertion that resolves with rest. She has failed to come back to see us for follow-up appointment. She also relates 3 episodes of passing out over the last 2 weeks (1 while putting away clothing in her bedroom without warning, second 1 occurring when while in the kitchen making coffee without warning and the third 1 while at the doctor's office with her son and occurred without warning but while patient was laughing). No associated seizure activity with any of these. She has had some intermittent episodes of nausea and vomiting but were not associated with these episodes of passing out. Patient does relate lightheadedness and dizziness with standing at times and blood pressure after admission through the ER is noted to be in the 80/60 mmHg range. Patient was given nitroglycerin in route due to chest pain yesterday but developed a headache and did require morphine for relief. She had no further chest pain overnight and has not had any nitroglycerin since the single dose given to her in the ER. Chest pressure did improve after sublingual nitroglycerin. Troponins overnight have returned normal x3. EKG shows sinus rhythm with no acute ST segment changes. Patient has a long history of anxiety and depression stemming from the remote sudden deaths of her two husbands and her son (from an overdose in 2003). Patient does not see mental health provider on a regular basis. She also suffers from chronic back pain with degenerative disc disease for which she takes chronic pain medication.- per [facility] Hospital Course Hospital Course: Patient was admitted and ruled out for [place] with serial enzymes and EKG. Chest pain resolved in the emergency department. On the morning of January 07 patient had cardiology consultation and decision was made to proceed with left heart catheterization. Left heart catheterization results are as follows: IMPRESSION Severe left main disease as described above Successful stenting of the ostial left main severe disease reduced to 0% with one drug-eluting stent Severe stenosis in the proximal LAD Successful stenting the proximal ID severe disease reduced to 0% with one drug-eluting stent Normal ejection fraction Severely elevated LVEDP PLAN 1. Dual antiplatelet therapy 2. Avoidance of tobacco products 3. Patient would benefit from loop diuretics combined with Aldactone due to diastolic dysfunction 4. Cardiac rehabilitation 5. Avoidance of tobacco products Post procedurally patient complained of groin pain at her cath site but there were no abnormalities detected. Due to patient's low blood pressure she was given Tylenol for the pain. The following morning patient was ambulating without difficulty other than continued complaint of groin pain. No signs of pseudoaneurysm were seen. Patient was discharged home and will follow up with Dr. So and Dr. Sierra. Medication adjustments were discussed with the patient and due to her orthostasis and syncope on admission very slow changes will be made to her medical regimen. At discharge patient was started on a reduced dose of metoprolol ended release 12-1/2 mg along with lisinopril 5 mg and spironolactone 25 mg. Objective Vital signs: Temp Pulse Resp BP Pulse Ox 98.2 F 70 16 115/72 95 01/08/20 04:00 01/08/20 06:01 01/08/20 06:01 01/08/20 06:01 01/08/20 06:01 no acute distress - *Routine Respiratory Exam Present: CTA bilaterally - *Routine Cardiovascular Exam Present: RRR, Normal S1, Normal S2 Results Labs on day of discharge: Labs from last 24 hours 01/08/20 01/08/20 01/07/20 04:55 04:55 12:13 WBC 10.4 RBC 4.48 Hgb 13.7 Hct 43.7 MCV 97.5 MCH 30.6 MCHC 31.4 L RDW 13.7 Plt Count 322 MPV 8.1 Neut % (Auto) 61.5 Lymph % (Auto) 30.3 [place] % (Auto) 5.0 Eos % (Auto) 2.6 Baso % (Auto) 0.6 Neut # (Auto) 6.4 Lymph # (Auto) 3.2 [place] # (Auto) 0.5 Eos # (Auto) 0.3 Baso # (Auto) 0.1 Activated Clotting Time > 400 H* Sodium 144 Potassium 4.4 D Chloride 107 Carbon Dioxide 31 Anion Gap 10.4 BUN 20 H Creatinine 0.98 D Estimated Creat Clear 105 Estimated GFR 58 L Est GFR ( Amer) 70 D Glucose 104 D Calcium 7.8 L 01/07/20 01/07/20 09:30 09:30 WBC 12.6 H D RBC 4.26 Hgb 13.2 Hct 42.2 MCV 99.0 MCH 31.0 MCHC 31.3 L RDW 13.8 Plt Count 319 MPV 8.1 Neut % (Auto) 62.6 Lymph % (Auto) 29.4 [place] % (Auto) 5.2 Eos % (Auto) 2.2 Baso % (Auto) 0.6 Neut # (Auto) 7.9 H Lymph # (Auto) 3.7 [place] # (Auto) 0.7 Eos # (Auto) 0.3 Baso # (Auto) 0.1 Activated Clotting Time Sodium 141 Potassium 3.6 Chloride 105 Carbon Dioxide 32 Anion Gap 7.6 BUN 23 H Creatinine 1.24 H Estimated Creat Clear 83 Estimated GFR 44 L Est GFR ( Amer) 54 L Glucose 134 H D Calcium 7.2 L D Preliminary micro results at discharge 01/07/20 06:40 Urine Culture - Preliminary Urine,Clean Catch DS: Diagnosis - Discharge Diagnosis (1) H/O class III angina pectoris Status: Acute (2) Orthostatic dizziness Status: Acute (3) Syncope Status: Acute (4) COPD (chronic obstructive pulmonary disease) Status: Acute (5) Coronary artery disease Status: Acute (6) Hypotension Status: Acute Discharge Plan - Patient Discharge Instructions ACTIVITY: Continue current activity DIET: continue same diet Patient Instructions: DI for Syncope in Adults (Fainting), DI for Atypical Chest Pain, DI for Surgical Site Infection - Follow up Plan Follow up with: Rohit Sierra MD [Staff Physician] - 01/18/20 10:10 am Sea So MD [Staff Physician] - 01/11/20 Disposition: Home, Self-Nursing Home Medications: Home Medications Medication Instructions Recorded Confirmed Type promethazine 25 mg tablet 25 mg PO Q6H PRN 01/15/19 01/06/20 History albuterol sulfate 2.5 mg INHALATION QID PRN #180 ml 04/21/19 01/06/20 Rx metoprolol succinate 100 mg 100 mg PO DAILY #90 tab 09/24/19 01/06/20 Rx tablet,extended release 24 hr duloxetine 60 mg capsule,delayed 60 mg PO BID #180 cap 10/13/19 01/06/20 Rx release lisinopril 20 1 tab PO BID #180 tab 10/26/19 01/06/20 Rx mg-hydrochlorothiazide 12.5 mg tablet trazodone 150 mg tablet 150 mg PO HS #90 tab 10/26/19 01/06/20 Rx albuterol sulfate 90 mcg/actuation 1 puff INHALATION Q4-6H PRN #18 g 10/27/19 01/06/20 Rx aerosol inhaler montelukast 10 mg tablet 10 mg PO HS #90 tab 11/25/19 01/06/20 Rx alprazolam 1 mg tablet 1 mg PO TID PRN #90 tab 12/28/19 01/06/20 Rx Apixaban [Eliquis] 5 mg PO BID 01/06/20 01/06/20 History levoFLOXacin [Levaquin 500mg 500 mg PO DAILY 01/06/20 01/06/20 History tab] methylPREDNISolone 4 mg PO DAILY 01/06/20 01/06/20 History [Methylprednisolone] Atorvastatin Calcium [Atorvastatin 40 mg PO DAILY 01/07/20 01/07/20 History 40mg Tab] Aspirin [Aspirin 81mg EC Tab] 81 mg PO DAILY #30 tablet. 01/08/20 Rx Metoprolol Succinate [Toprol XL 12.5 mg PO DAILY #30 tab.er.24h 01/08/20 Rx 25mg tablet] Spironolactone [Aldactone 25mg 25 mg PO DAILY #30 tab 01/08/20 Rx Tab] Ticagrelor [Brilinta 90mg Tablet] 90 mg PO BID #60 tab 01/08/20 Rx lisinopriL [Zestril 5mg 5 mg PO DAILY #30 tab 01/08/20 Rx Tablet] Prescriptions/Medication Reconciliation: New Ticagrelor [Brilinta 90mg Tablet] 90 mg PO BID #60 tab lisinopriL [Zestril 5mg Tablet] 5 mg PO DAILY #30 tab Spironolactone [Aldactone 25mg Tab] 25 mg PO DAILY #30 tab Aspirin [Aspirin 81mg EC Tab] 81 mg PO DAILY #30 tablet. Metoprolol Succinate [Toprol XL 25mg tablet] 12.5 mg PO DAILY #30 tab.er.24h Continued promethazine 25 mg tablet 25 mg PO Q6H PRN PRN Reason: Nausea duloxetine 60 mg capsule,delayed release 60 mg PO BID #180 cap lisinopril 20 mg-hydrochlorothiazide 12.5 mg tablet 1 tab PO BID #180 tab trazodone 150 mg tablet 150 mg PO HS #90 tab albuterol sulfate 90 mcg/actuation aerosol inhaler 1 puff INHALATION Q4-6H PRN #18 g PRN Reason: Wheezing montelukast 10 mg tablet 10 mg PO HS #90 tab albuterol sulfate 2.5 mg INHALATION QID PRN #180 ml PRN Reason: shortness of breath or wheezing metoprolol succinate 100 mg tablet,extended release 24 hr 100 mg PO DAILY #90 tab alprazolam 1 mg tablet 1 mg PO TID PRN #90 tab PRN Reason: Anxiety Apixaban [Eliquis] 5 mg PO BID Atorvastatin Calcium [Atorvastatin 40mg Tab] 40 mg PO DAILY Discontinued methylPREDNISolone [Methylprednisolone] 4 mg PO DAILY levoFLOXacin [Levaquin 500mg tab] 500 mg PO DAILY - Problem Reconciliation Problems Reviewed?: Yes
--- NOTE | 2020-01-08 11:51 | Electrocardiograph Report ---
APPROVED REPORT Exam: Resting ECG HR:71 bpm ECG Measurements Heart Rate 71 AXES VA 168 P 54 QRSd 82 QRS 51 QT 432 T71 QTc 469 <Conclusion> Normal sinus rhythm Normal ECG Electronically signed by : Oskar Eugene, 01/08/2020 11:51:03
== END 2020-01-08 09:45 | disposition home or self-care (01) ==
LOC: 2ND 18:55 → ER 18:55 → 2ND 21:21
PROVIDERS: ADMIT Family Medicine; ATTEND Emergency Medicine
CPT/HCPCS: 36415; 70450; 71010; 71045; 80048; 80076; 81001; 82962; 83605; 83880; 84484; 85007; 85025; 85347; 85651; 86140; 87040; 87086; 92928; 93005; 93458; 94761; 96365; 96375; 99152; 99153; 99284; C1725; C1760; C1769; C1876; C9600; G0378; J1642; J1644; Q9967

== ENCOUNTER → 2020-01-24 11:00 | Outpatient (CLI) | payer MEDICARE, SELFPAY ==
--- NOTE | 2020-01-24 11:02 | CA_ITS ---
APPROVED REPORT Log Check Scaler: Ruma Cleary, RVT Indications Leg Pain Pt had cath on 01/07/20, c/o knot rt groin that is tender Risk Factors CAD Obesity Cardiac Disease Findings Groin: Right Negative Positive for Hematoma Size: 1.2 cm Findings Study of right groin suggests no evidence of pseudoaneuysrm or AV fistula. 1.2 cm non-vascular cystic lesion seen in the right groin, ? hematoma. Results called to Kelton Arias at 11:35 am 01/24/20. Conclusion Study of right groin suggests no evidence of pseudoaneuysrm or AV fistula. Electronically signed by : Wili Arriola MD 01/24/2020 19:16:16
== END ==
PROVIDERS: PCP Emergency Medicine; Visit Provider Urology
DX: I77.0 Arteriovenous fistula, acquired (principal); M79.604 Pain in right leg; R10.31 Right lower quadrant pain
CPT/HCPCS: 93926

== ENCOUNTER 2020-05-04 09:03 | Day surgery (SDC) | payer MEDICARE, MEDICAID, SELFPAY ==
[2020-05-04] VITALS (17 sets, daily range): BP systolic 101–131; BP diastolic 67–86; PULSE 62–90; RESP 16; TEMP 36.6; O2SAT 90–100; BMI 32.8
--- NOTE | 2020-05-04 | IR_ITS ---
APPROVED REPORT Patient Location: Outpatient [place]: LIZZY Mix RT (R) PROCEDURES Left heart catheterization Left ventriculogram Selective coronary angiogram INDICATION Known coronary artery disease, Accelerated angina pectoris, Abnormal stress test Informed consent was obtained prior to the procedure. COMPLICATIONS NONE Estimated Blood Loss: LESS THAN 10 ML TECHNIQUE One percent lidocaine used to anesthetize the right anterior aspect of the wrist. The right radial artery was accessed via the Seldinger technique. A 6 [place] sheath was placed in the right radial artery. 2.5 mg of verapamil, 800 mcg of nitroglycerin, 1mg Lidocaine and 5000 U Heparin were given through the arterial sheath. The trap catheter was also used to perform left heart catheterization, left ventriculogram and selective coronary angiogram. At the end of the procedure the sheath was removed good hemostasis was achieved using Traclet band, patient was transferred to the postop holding area in stable condition. ANGIOGRAPHIC RESULTS The left main artery Has a stent in the ostial segment which extends into the proximal LAD. The entire stent is widely patent free of in-stent restenosis with excellent proximal distal transitioning The left anterior descending artery Has a stent originating off the left main artery which is widely patent. The transition into the [place] vessel is excellent. There is a large first diagonal artery which has a 50% ostial stenosis. The circumflex artery Is a nondominant vessel and has mild luminal irregularities of 10% however the entire vessel was small The right coronary artery Is a dominant vessel and has mid vessel 20 to 30% stenoses. The entire vessel was small The ONEILL ventriculogram reveals Hyperdynamic 75 to 80% The left ventricular end-diastolic pressure 18 mmHg IMPRESSION Diffuse small vessel coronary arteries consistent with hypertensive vasculopathy Patent stents as described above Hyperdynamic ventricle which likely accounts for patient's symptoms Mildly elevated LVEDP PLAN 1. Standard therapy for ischemic heart disease 2. Patient requires negative inotropes in order to decrease hyperdynamic ventricle which will almost certainly improve patient's symptoms 3. Consider low-dose loop diuretics 4. Beta-blockers combined with verapamil or diltiazem 5. Maximize antianginals Electronically signed by : Rohit Sierra, 05/04/2020 12:15:44
[2020-05-04 09:59] LABS: Basophils # 0.1 K/mm3 (0-0.2); Basophils % 0.5 % (0.1-2.0); Eosinophils # 0.2 K/mm3 (0.0-0.4); Eosinophils % 2.4 % (0.1-12.0); Hematocrit 36.8 % (37.0-47.0); Hemoglobin 12.2 g/dL (12.2-16.2); Lymphocytes # 2.7 K/mm3 (0.7-4.5); Lymphocytes % 26.5 % (10-50); Mean Corpuscular HGB Conc 33.2 g/dL (31.8-35.4); Mean Corpuscular Hemoglobin 32.4 pg (27.0-31.2); Mean Corpuscular Volume 97.4 fl (81-99); Mean Platelet Volume 8.3 fl (7.4-10.4); Monocytes # 0.4 K/mm3 (0.1-1.0); Monocytes % 3.6 % (1.7-9.3); Neutrophils # 6.8 K/mm3 (1.8-7.8); Neutrophils % 67.1 % (37.0-80.0); Platelet Count 296 K/mm3 (142-424); Red Blood Count 3.78 M/mm3 (4.20-5.40); White Blood Count 10.1 K/mm3 (4.8-10.8)
[2020-05-04 10:05] LABS: Chloride 103 mmol/L (98-107); Potassium 3.4 mmoL/L (3.5-5.1); Sodium 137 mmol/L (136-145)
[2020-05-04 10:08] LABS: Blood Urea Nitrogen 14 mg/dl (7-17); Creatinine Clearance Estimated 110 mL/min (50-200); Estimated Glomerular Filt Rate 73 ml/min (>60); GFR (African American) 89 ML/MIN (>60)
[2020-05-04 10:09] LABS: Anion Gap 9.4 mEq/L (5-15); Calcium 8.1 mg/dl (8.4-10.2); Carbon Dioxide 28 mmol/L (22.0-30.0); Glucose 146 mg/dl (74-100)
== END 2020-05-04 15:28 | disposition home or self-care (01) ==
LOC: CATHLAB 09:06
PROVIDERS: PCP Emergency Medicine; Visit Provider Internal Medicine
DX: I25.110 Atherosclerotic heart disease of native coronary artery with unstable angina pectoris (principal); I48.91 Unspecified atrial fibrillation; I25.2 Old myocardial infarction; I11.0 Hypertensive heart disease with heart failure; I50.1 Left ventricular failure, unspecified; Z88.5 Allergy status to narcotic agent; Z79.51 Long term (current) use of inhaled steroids; Z79.899 Other long term (current) drug therapy; J44.9 Chronic obstructive pulmonary disease, unspecified; Z72.0 Tobacco use
CPT/HCPCS: 80048; 85025; 93458; 99152; C1725; C1769; J1642; Q9967

== ENCOUNTER 2020-05-29 15:18 | Emergency (ER) | payer MEDICARE, MEDICAID, SELFPAY ==
--- NOTE | 2020-05-29 15:16 | ECG_ITS ---
APPROVED REPORT Exam: Resting ECG HR:78 bpm ECG Measurements Heart Rate 78 AXES OR 170 P 45 QRSd 88 QRS 55 QT 424 T 74 QTc 483 <Conclusion> Normal sinus rhythm Nonspecific ST-T wave abnormalities Incomplete RBBB Prolonged QT Abnormal ECG Electronically signed by : Ross Ham, 05/30/2020 19:04:22
[2020-05-29 15:19] VITALS: BP 106/80; PULSE 78; RESP 18; TEMP 37.1; O2SAT 98; BMI 37.1
[2020-05-29 15:29] VITALS: BMI 37.1
--- NOTE | 2020-05-29 15:29 | XR_ITS ---
PROCEDURE: XR CHEST PORTABLE CLINICAL HISTORY: chest pain Smoker COMPARISON: CXR2V XR chest 2V from 07/16/2018 CXR2V XR chest 2V from 03/16/[address] thoracic spine wo con from 03/16/2019 XR CHEST PORTABLE from 01/06/2020 FINDINGS: Mild cardiomegaly without failure. Right subclavian MediPort catheter is present with tip in the region the SVC. Chronic changes in the lungs. No definite lobar consolidation or collapse. Lung bases are under penetrated There is increased density in the central aspect of the chest inferiorly which could be due to hiatal hernia also with air density noted in this region on the left. Severe degenerative changes are present in the right shoulder. There are multiple old right-sided rib fractures. IMPRESSION: Cardiomegaly with chronic changes and possible hiatal hernia Dictated by: Wili Arriola MD 05/29/2020 16:24 Electronically signed by Wili Arriola MD in [place] 05/29/2020 16:24
[2020-05-29 15:41] VITALS: BP 121/69; PULSE 75; O2SAT 93
[2020-05-29 15:49] VITALS: PULSE 76; O2SAT 94
--- NOTE | 2020-05-29 15:52 | PC.NURSE ---
Rad at bedside
[2020-05-29 16:02] LABS: Basophils % 0.4 % (0.1-2.0); Eosinophils # 0.2 K/mm3 (0.0-0.4); Eosinophils % 2.2 % (0.1-12.0); Hematocrit 41.1 % (37.0-47.0); Hemoglobin 13.7 g/dL (12.2-16.2); Lymphocytes # 2.9 K/mm3 (0.7-4.5); Lymphocytes % 25.7 % (10-50); Mean Corpuscular HGB Conc 33.3 g/dL (31.8-35.4); Mean Corpuscular Hemoglobin 31.4 pg (27.0-31.2); Mean Corpuscular Volume 94.3 fl (81-99); Mean Platelet Volume 8.5 fl (7.4-10.4); Monocytes # 0.5 K/mm3 (0.1-1.0); Monocytes % 4.1 % (1.7-9.3); Neutrophils # 7.5 K/mm3 (1.8-7.8); Neutrophils % 67.6 % (37.0-80.0); Platelet Count 333 K/mm3 (142-424); Red Blood Count 4.36 M/mm3 (4.20-5.40); Red Cell Distribution Width 13.5 % (11.5-17.5); White Blood Count 11.1 K/mm3 (4.8-10.8)
[2020-05-29 16:04] LABS: Chloride 97 mmol/L (98-107); Potassium 3.3 mmoL/L (3.5-5.1); Sodium 136 mmol/L (136-145)
[2020-05-29 16:06] LABS: Amylase 52 U/L (30-110)
[2020-05-29 16:07] LABS: Anion Gap 9.3 mEq/L (5-15); Blood Urea Nitrogen 12 mg/dl (7-17); Calcium 8.6 mg/dl (8.4-10.2); Carbon Dioxide 33 mmol/L (22.0-30.0); Creatinine Clearance Estimated 111 mL/min (50-200); Estimated Glomerular Filt Rate 64 ml/min (>60); GFR (African American) 78 ML/MIN (>60); Glucose 132 mg/dl (74-100); Lipase 49 U/L (23-300)
[2020-05-29 16:25] LABS: Troponin I < 0.01 ng/ml (0.00-0.034)
[2020-05-29 16:34] VITALS: BP 104/66; PULSE 75; RESP 16; O2SAT 88
--- NOTE | 2020-05-29 17:32 | HMH.EDCP ---
ED Disposition Clinical Impression: Unstable angina, History of coronary artery stent placement, Tobacco use, History of CVA (cerebrovascular accident) Disposition: Home, Self-Care Condition on Discharge: Good Instructions: DI for Atypical Chest Pain Additional Instructions: These follow-up with Dr. Sierra for management of chest pain. Referrals: Sea So MD [Primary Care Provider] - - Critical Care Critical Care Time: No Attestation: On 05/29/20, the high probability of a clinically significant, sudden or life threatening deterioration of the following system(s) required my full and direct attention, intervention and personal management. The time I documented below is in addition to time spent performing reported procedures but includes the following listed in this critical care notation. Medical Decision Making - Medical Records Medical records reviewed: Yes: I reviewed the patient's medical records. - Delroy Inquiry Pt receiving controlled substance: No Vital Signs: 05/29/20 15:19 05/29/20 15:41 05/29/20 15:49 Temperature 98.8 F Temperature Source Oral Pulse Rate [Right Radial] 78 75 76 Respiratory Rate 18 Blood Pressure [Right Arm] 106/80 L 121/69 Blood Pressure Mean [Right Arm] 88 86 Blood Pressure Source [Right Arm] Automatic Cuff Automatic Cuff Blood Pressure Position [Right Arm] Sitting Sitting 02 Sat by Pulse Oximetry 98 93 L 94 L Oxygen Delivery Method Nasal Cannula Nasal Cannula Nasal Cannula Oxygen Flow Rate (LPM) 4 4 4 05/29/20 16:34 Temperature Temperature Source Pulse Rate [Right Radial] 75 Respiratory Rate 16 Blood Pressure [Right Arm] 104/66 L Blood Pressure Mean [Right Arm] 78 Blood Pressure Source [Right Arm] Automatic Cuff Blood Pressure Position [Right Arm] Sitting 02 Sat by Pulse Oximetry 88 L Oxygen Delivery Method Oxygen Flow Rate (LPM) - Lab Data Lab results reviewed: Yes: I reviewed the patient's lab results. Lab Results 05/29/20 15:46: WBC 11.1 H, RBC 4.36, Hgb 13.7, Hct 41.1, MCV 94.3, MCH 31.4 H, MCHC 33.3, RDW 13.5, Plt Count 333, MPV 8.5, Neut % (Auto) 67.6, Lymph % (Auto) 25.7, [place] % (Auto) 4.1, Eos % (Auto) 2.2, Baso % (Auto) 0.4, Neut # (Auto) 7.5, Lymph # (Auto) 2.9, [place] # (Auto) 0.5, Eos # (Auto) 0.2, Baso # (Auto) 0.0 05/29/20 15:46: Sodium 136, Potassium 3.3 L, Chloride 97 L, Carbon Dioxide 33 H, Anion Gap 9.3, BUN 12, Creatinine 0.90, Estimated Creat Clear 111, Estimated GFR 64, Est GFR ( Amer) 78, Glucose 132 H, Calcium 8.6, Troponin I < 0.01, Amylase 52, Lipase 49 Result diagrams: 05/29/20 15:46 05/29/20 15:46 Orders (Tests/Meds): ED MEDICATIONS Discontinued Medications Generic Name Dose Route Start Last Admin Trade Name Freq PRN Reason Stop Dose Admin Hydromorphone HCl 1 mg 05/29/20 16:15 05/29/20 16:17 Dilaudid 2mg/Ml Syringe IV 05/29/20 16:16 1 mg ONCE ONE Administration Sodium Chloride 1,000 mls @ 999 mls/hr 05/29/20 16:30 05/29/20 16:17 Sod Chlor 0.9% 1000ml Bag IV 05/29/20 17:30 999 mls/hr .Q1H1M CRISTOPHER Administration Ondansetron HCl 4 mg 05/29/20 16:16 05/29/20 16:17 Zofran 4mg/2ml Vial IV 05/29/20 16:17 4 mg ONCE ONE Administration ORDERS Category Date Time Status Troponin I Q3H Lab 05/29/20 18:30 Ordered Troponin I Q3H Lab 05/29/20 21:30 Ordered Medical Decision Narrative: Given patient had a catheterization done 2 weeks ago and no significant stenosis of the vessels and no intervention was done at that time I feel comfortable letting patient go home and follow-up with Dr. Sierra in office. Chest Pain HPI - General Chief Complaint: Chest Pain Stated Complaint: Chest Pain Time Seen by Provider: 05/29/20 17:32 Mode of Arrival: EMS Source of Information: Patient Limitations: No Limitations Description of Symptoms (Recalled from ER Triage Doc. by RN): Pt reports she has been feeling week x2 days, states she began having chest heaviness tod
[2020-05-29 18:20] VITALS: BP 127/78; PULSE 78; RESP 16; TEMP 36.6; O2SAT 98
== END 2020-05-29 18:23 | disposition home or self-care (01) ==
PROVIDERS: Emergency Provider Family Medicine; PCP Emergency Medicine
DX: I20.0 Unstable angina (principal); Z95.5 Presence of coronary angioplasty implant and graft; I25.2 Old myocardial infarction; I10 Essential (primary) hypertension; E78.5 Hyperlipidemia, unspecified; I48.91 Unspecified atrial fibrillation; I25.10 Atherosclerotic heart disease of native coronary artery without angina pectoris; K21.9 Gastro-esophageal reflux disease without esophagitis; F17.210 Nicotine dependence, cigarettes, uncomplicated; Z86.73 Personal history of transient ischemic attack (TIA), and cerebral infarction without residual deficits; Z79.899 Other long term (current) drug therapy; Z88.8 Allergy status to other drugs, medicaments and biological substances; Z90.09 Acquired absence of other part of head and neck; Z90.79 Acquired absence of other genital organ(s); Z90.49 Acquired absence of other specified parts of digestive tract
CPT/HCPCS: 36415; 71045; 80048; 82150; 83690; 84484; 85025; 93005; 96365; 96375; 96376; 99284; J2405

== ENCOUNTER 2020-06-11 13:17 | Emergency (ER) | payer MEDICARE, MEDICAID, SELFPAY ==
[2020-06-11 13:18] VITALS: BP 122/60; PULSE 70; RESP 22; TEMP 37.1; O2SAT 97; BMI 37.1
--- NOTE | 2020-06-11 13:31 | CT_ITS ---
PROCEDURE: CT ABDOMEN PELVIS W CON CLINICAL INDICATION: abd pain Generalized abdominal pain with vomiting and diarrhea COMPARISON: ABDPELWO CT abdomen pelvis wo con from 05/15/2019 TECHNIQUE: IV Contrast: 75ML OPTIRAY 350 Oral Contrast None Axial images obtained with sagittal and coronal reformats. All CT scans at the facility use one or more dose reduction, viz: automated exposure control, ma/kV adjustment per patient size (including targeted exams where dose is matched to indication, i.e. head), or iterative reconstruction technique. FINDINGS: LOWER THORAX: Coronary artery calcifications are present. ABDOMEN & PELVIS: Prior cholecystectomy. The liver, spleen, adrenal glands, pancreas, has an unremarkable appearance. 2.8 cm right renal cyst. No renal or ureteral calculi or hydronephrosis. Small umbilical hernia containing fat. There are air-fluid levels in small and large bowel without significant distension. There is colonic diverticulosis without diverticulitis. No evidence of appendicitis There is subchondral lucency of the right femoral head consistent with avascular necrosis. 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
--- NOTE | 2020-06-11 13:55 | HMH.EDGENADL ---
ED Disposition Clinical Impression: Colitis, Occult blood positive stool Disposition: Home, Self-Care Condition on Discharge: Fair Instructions: DI for Diarrhea and Traveler's Diarrhea -- Adult, DI for Nausea -- Adult Additional Instructions: Flagyl as prescribed. Omeprazole as prescribed. Tylenol 3 as needed for pain. Phenergan for nausea. Call Dr. So's office tomorrow for follow-up. Additional instructions for ABDOMINAL PAIN: See your physician as soon as possible for further evaluation. Return immediately if worsening abdominal pain, vomiting, shortness of breath, fever, vomiting of blood or abdominal distention. Additional instructions for CONTROLLED SUBSTANCES: You have been prescribed a medication that is a controlled substance. Controlled substances include pain medications known as opiates and sedative nerve medications known as benzodiazepines. Tramadol, fioricet, and gabapentin are also controlled substances. Some common opiates include: Codeine (such as Tylenol #3) Hydrocodone (Vicodin, Lortab, Lorcet, [place]) Oxycodone (Percocet, Percodan, Oxycodone, Oxy IR) Some common benzodiazepines include: Diazepam (Valium) Lorazepam (Ativan) Alprazolam (Xanax) Clonazepam (Klonopin) Oxazepam (Serax) All of these controlled substances are highly addictive and frequently abused. Misuse can and frequently does lead to addiction as well as overdose and . Medication should be stored in a locked cabinet or other secure storage unit. Do not store the medication in a motor vehicle. Short term supplies, 3 days or less, are prescribed because of the highly addictive nature of the medication. Any of the controlled substance medication NOT taken should be disposed of properly and NOT SAVED. The recommended method of disposing of unused medications is: Place the medicines in a sealable plastic bag. If the medicine is a solid, crush it or add water to dissolve it. Add something undesirable (cat litter, coffee grounds, etc.) Dispose of sealed bag in household trash Do not flush or pour unused medicines down a sink or drain. Controlled substances should not be shared, given away or sold. Because of the addictive nature and frequent abuse, these medications are sometimes stolen. These medications should be kept in a safe place where they cannot be stolen. Do not keep them in your car or purse. Lost or stolen prescriptions for controlled substances WILL NOT BE REFILLED in this emergency department, regardless of whether a police report was filed. Prescriptions: metroNIDAZOLE [Flagyl] 500 mg PO TID #30 tab Transmission Status: Pending to [facility] Omeprazole Magnesium [Prilosec Otc 20mg Tab] 20 mg PO DAILY #10 tab Transmission Status: Pending to [facility] Referrals: Sea So MD [Primary Care Provider] - - Critical Care Critical Care Time: No Attestation: On , the high probability of a clinically significant, sudden or life threatening deterioration of the following system(s) required my full and direct attention, intervention and personal management. The time I documented below is in addition to time spent performing reported procedures but includes the following listed in this critical care notation. Medical Decision Making - Medical Records Medical records reviewed: Yes: I reviewed the patient's medical records. - Delroy Inquiry Pt receiving controlled substance: Yes Delroy was queried for this patient: No Reason not queried -: Emergent pt cond-no time Risks and benefits of using a controlled substance: were not discussed with pt by me Vital Signs: 06/11/20 13:18 Temperature 98.7 F Temperature Source Oral Pulse Rate [Right] 70 Respiratory Rate 22 Blood Pressure [Right Arm] 122/60 Blood Pressure Mean [Right Arm] 80 02 Sat by Pulse Oximetry 97 - Lab Data Lab results reviewed: Yes: I reviewed the patient's lab results. Lab Results 05/31
[2020-06-11 13:56] LABS: Chloride 104 mmol/L (98-107); Sodium 135 mmol/L (136-145)
[2020-06-11 13:57] LABS: Potassium 4.4 mmoL/L (3.5-5.1)
[2020-06-11 13:59] LABS: Alanine Aminotransferase 17 U/L (12-78); Alkaline Phosphatase 131 U/L (38-126); Anion Gap 16.4 mEq/L (5-15); Aspartate Amino Transferase 18 U/L (14-36); Basophils # 0.1 K/mm3 (0-0.2); Basophils % 0.4 % (0.1-2.0); Bilirubin,Total 0.7 mg/dl (0.2-1.3); Blood Urea Nitrogen 28 mg/dl (7-17); Calcium 9.6 mg/dl (8.4-10.2); Carbon Dioxide 19 mmol/L (22.0-30.0); Creatinine Clearance Estimated 91 mL/min (50-200); Eosinophils # 0.3 K/mm3 (0.0-0.4); Eosinophils % 1.3 % (0.1-12.0); Estimated Glomerular Filt Rate 51 ml/min (>60); GFR (African American) 62 ML/MIN (>60); Glucose 194 mg/dl (74-100); Hematocrit 49.3 % (37.0-47.0); Hemoglobin 15.9 g/dL (12.2-16.2); Lymphocytes # 4.2 K/mm3 (0.7-4.5); Lymphocytes % 17.8 % (10-50); Mean Corpuscular HGB Conc 32.2 g/dL (31.8-35.4); Mean Corpuscular Hemoglobin 31.6 pg (27.0-31.2); Mean Corpuscular Volume 98.1 fl (81-99); Mean Platelet Volume 8.5 fl (7.4-10.4); Neutrophils # 18.1 K/mm3 (1.8-7.8); Neutrophils % 76.6 % (37.0-80.0); Platelet Count 469 K/mm3 (142-424); Red Blood Count 5.02 M/mm3 (4.20-5.40); Red Cell Distribution Width 13.6 % (11.5-17.5); White Blood Count 23.6 K/mm3 (4.8-10.8)
[2020-06-11 14:00] LABS: Albumin Level 4.7 g/dl (3.5-5.0); Albumin/Globulin Ratio 1.4 (1.1-1.8); Amylase 81 U/L (30-110); Globulin 3.3 g/dL (1.3-3.2); Lactic Acid 1.7 mmol/L (0.7-2.1); Lipase 64 U/L (23-300)
[2020-06-11 14:03] LABS: MANUAL DIFFERENTIAL MANUAL DIFFERENTIAL (MANUAL DIFF)
[2020-06-11 14:07] LABS: Adenovirus F 40/41, stool Not Detected (NotDetected); Astrovirus Not Detected (NotDetected); Campylobacter Not Detected (NotDetected); Clostridium Difficile A/B, PCR Not Detected (NotDetected); Cryptosporidium Not Detected (NotDetected); Cyclospora Cayetanesis Not Detected (NotDetected); Entamoeba histolytica Not Detected (NotDetected); Enteroaggregative E coli Not Detected (NotDetected); Enteropathogenic E coli Not Detected (NotDetected); Enterotoxigenic E coli Not Detected (NotDetected); Giardia lamblia Not Detected (NotDetected); Microscopic, Urine URINE MICROSCOPIC (MICROSCOPIC); Norovirus Not Detected (NotDetected); Plesimonas Shigalloides, PCR Not Detected (NotDetected); Rotavirus A Not Detected (NotDetected); Salmonella, PCR Not Detected (NotDetected); Sapovirus Not Detected (NotDetected); Shiga-like toxin E coli Not Detected (NotDetected); Shigella Enterovasive E coli Not Detected (NotDetected); Vibrio Cholerae Not Detected (NotDetected); Vibrio, PCR Not Detected (NotDetected); Yersinia Entercolitica, PCR Not Detected (NotDetected)
[2020-06-11 14:10] LABS: Appearance,Urine CLEAR (Clear); Bilirubin,Urine Negative (Negative); Blood, Urine Negative (Negative); Color,Urine YELLOW (Yellow); Glucose,Urine (UA) Negative (Negative); Ketones,Urine Negative (Negative); Leukocyte Esterase,Urine Negative (Negative); Nitrate,Urine Negative (Negative); PH,Urine 5.5 (5.0-8.5); Protein,Urine Negative (Negative); Urobilinogen,Urine 0.2 EU/dl (0.2)
[2020-06-11 14:12] LABS: Eosinophils % 1 % (0-3); Lymphocytes % 21 % (10-50); Monocytes % 5 % (2-9); Neutrophils % 73 % (42-76); Platelet Estimate Slight Increase; RBC Morphology Normal; Total Cells Counted 100
[2020-06-11 14:15] LABS: Hyaline Casts,Urine Occasional #/lpf (0); WBC,Urine Occasional #/hpf (0-3)
[2020-06-11 14:16] LABS: Coarse Granular Casts,Urine Occasional #/lpf (0)
[2020-06-11 16:45] LABS: Occult Blood,Stool Positive (Negative)
--- NOTE | 2020-06-11 16:51 | PC.NURSE ---
Dr Patel speaking with Dr Cody
[2020-06-11 17:24] VITALS: BP 133/73; PULSE 69; RESP 18; TEMP 37.1; O2SAT 96
== END 2020-06-11 17:24 | disposition home or self-care (01) ==
PROVIDERS: Emergency Provider Emergency Medicine; PCP Emergency Medicine
DX: K52.9 Noninfective gastroenteritis and colitis, unspecified (principal); I48.91 Unspecified atrial fibrillation; I25.10 Atherosclerotic heart disease of native coronary artery without angina pectoris; K21.9 Gastro-esophageal reflux disease without esophagitis; E78.5 Hyperlipidemia, unspecified; I10 Essential (primary) hypertension; I25.2 Old myocardial infarction; F17.210 Nicotine dependence, cigarettes, uncomplicated; Z90.49 Acquired absence of other specified parts of digestive tract; Z90.79 Acquired absence of other genital organ(s)
CPT/HCPCS: 74177; 80053; 81001; 82150; 82272; 83605; 83690; 85007; 85025; 87040; 87506; 96365; 96375; 99284; G0328; J1642; Q9967

== ENCOUNTER 2020-06-14 19:08 | Emergency (ER) | payer MEDICARE, MEDICAID, SELFPAY ==
[2020-06-14 19:41] VITALS: BP 98/59; PULSE 69; RESP 20; TEMP 37; O2SAT 98; BMI 37.1
[2020-06-14 20:08] VITALS: BP 112/61; PULSE 68; RESP 18; O2SAT 97
[2020-06-14 20:09] LABS: Chloride 106 mmol/L (98-107)
[2020-06-14 20:10] LABS: Potassium 3.6 mmoL/L (3.5-5.1); Sodium 138 mmol/L (136-145)
[2020-06-14 20:12] LABS: Alanine Aminotransferase 12 U/L (12-78); Amylase 66 U/L (30-110); Anion Gap 12.6 mEq/L (5-15); Aspartate Amino Transferase 18 U/L (14-36); Blood Urea Nitrogen 19 mg/dl (7-17); Carbon Dioxide 23 mmol/L (22.0-30.0); Creatinine Clearance Estimated 111 mL/min (50-200); Estimated Glomerular Filt Rate 64 ml/min (>60); GFR (African American) 78 ML/MIN (>60); Lactic Acid 0.8 mmol/L (0.7-2.1)
[2020-06-14 20:13] LABS: Albumin Level 3.3 g/dl (3.5-5.0); Albumin/Globulin Ratio 1.2 (1.1-1.8); Alkaline Phosphatase 135 U/L (38-126); Bilirubin,Total 0.3 mg/dl (0.2-1.3); Calcium 7.8 mg/dl (8.4-10.2); Globulin 2.7 g/dL (1.3-3.2); Glucose 106 mg/dl (74-100); Lipase 156 U/L (23-300)
[2020-06-14 20:18] LABS: Basophils # 0.1 K/mm3 (0-0.2); Basophils % 0.5 % (0.1-2.0); Eosinophils # 0.4 K/mm3 (0.0-0.4); Eosinophils % 2.8 % (0.1-12.0); Hematocrit 39.8 % (37.0-47.0); Hemoglobin 13.3 g/dL (12.2-16.2); Lymphocytes # 4.8 K/mm3 (0.7-4.5); Lymphocytes % 30.1 % (10-50); Mean Corpuscular HGB Conc 33.4 g/dL (31.8-35.4); Mean Corpuscular Hemoglobin 32.1 pg (27.0-31.2); Mean Corpuscular Volume 96.2 fl (81-99); Mean Platelet Volume 8.4 fl (7.4-10.4); Monocytes # 0.8 K/mm3 (0.1-1.0); Neutrophils # 9.8 K/mm3 (1.8-7.8); Neutrophils % 61.6 % (37.0-80.0); Platelet Count 374 K/mm3 (142-424); Red Blood Count 4.13 M/mm3 (4.20-5.40); White Blood Count 15.9 K/mm3 (4.8-10.8)
[2020-06-14 20:20] LABS: MANUAL DIFFERENTIAL MANUAL DIFFERENTIAL (MANUAL DIFF)
[2020-06-14 20:20] LABS: Microscopic, Urine URINE MICROSCOPIC (MICROSCOPIC)
--- NOTE | 2020-06-14 20:26 | CT_ITS ---
PROCEDURE: CT ABDOMEN PELVIS W CON CLINICAL INDICATION: abd pain Midline abdominal pain, lower abdominal pain COMPARISON: CT ABDOMEN PELVIS W CON from 06/11/2020 TECHNIQUE: IV Contrast: 75ML OPTIRAY 350 Oral Contrast None Axial images obtained with sagittal and coronal reformats. All CT scans at the facility use one or more dose reduction, viz: automated exposure control, ma/kV adjustment per patient size (including targeted exams where dose is matched to indication, i.e. head), or iterative reconstruction technique. FINDINGS: LOWER THORAX: Pulmonary fibrotic changes are present in the lung bases with centrilobular emphysematous change.. Numerous nodules are present in both lower lobes most of which are stable measuring up to 6 mm. A 6 mm nodules present in the right upper lobe inferiorly not previously imaged. Coronary artery calcifications are present. There are old right-sided rib fractures. A triangular-shaped opacity is present along the right major fissure measuring 11 mm not previously clear did ABDOMEN & PELVIS: Prior cholecystectomy. The spleen, adrenal glands, and pancreas have an unremarkable appearance. 2.5 cm hypodensity right kidney consistent with a renal cyst. There is a small umbilical hernia containing fat. No intestinal obstruction or free air. There is slight excessive amount of fluid in the small bowel with questionable bowel wall enhancement. No acute bony finding. avascular necrosis involves the right femoral head there is colonic diverticulosis but no evidence of diverticulitis. There is a small right inguinal hernia containing fat. There is a moderate amount of retained colonic feces there are post hysterectomy changes. IMPRESSION: 1. Findings suggestive of gastroenteritis 2. Moderate amount of retained colonic feces 3. Avascular necrosis right femoral head the the and other nonacute findings as described above 4. Multiple pulmonary nodules. Dictated by: Wili Arriola MD 06/15/2020 06:20 Electronically signed by Wili Arriola MD in [place] 06/15/2020 06:20
--- NOTE | 2020-06-14 20:28 | HMH.EDNVD ---
ED Disposition Clinical Impression: Abdominal pain Qualifiers: Abdominal location: upper abdomen, unspecified Qualified Code(s): R10.10 - Upper abdominal pain, unspecified Disposition: Home, Self-Care Condition on Discharge: Good Instructions: DI for Acute Abdomen Additional Instructions: call pcp office in am and keep gi consult Referrals: Sea So MD [Primary Care Provider] - - Critical Care Critical Care Time: No Attestation: On 06/14/20, the high probability of a clinically significant, sudden or life threatening deterioration of the following system(s) required my full and direct attention, intervention and personal management. The time I documented below is in addition to time spent performing reported procedures but includes the following listed in this critical care notation. Medical Decision Making - Medical Records Medical records reviewed: Yes: I reviewed the patient's medical records. - Delroy Inquiry Pt receiving controlled substance: No Vital Signs: 06/14/20 19:41 06/14/20 20:08 06/14/20 21:00 Temperature 98.6 F Temperature Source Oral Pulse Rate [Left] 69 68 Respiratory Rate 20 18 Blood Pressure [Right Arm] 98/59 L 112/61 93/49 L Blood Pressure Mean [Right Arm] 72 78 63 Blood Pressure Source [Right Arm] Automatic Cuff Automatic Cuff Blood Pressure Position [Right Arm] Sitting Supine 02 Sat by Pulse Oximetry 98 97 100 Oxygen Delivery Method Room Air Room Air Oxygen Flow Rate (LPM) 06/14/20 22:08 Temperature Temperature Source Pulse Rate [Left] 68 Respiratory Rate 18 Blood Pressure [Right Arm] 102/76 L Blood Pressure Mean [Right Arm] 84 Blood Pressure Source [Right Arm] Blood Pressure Position [Right Arm] 02 Sat by Pulse Oximetry 91 L Oxygen Delivery Method Nasal Cannula Oxygen Flow Rate (LPM) 2 - Lab Data Lab results reviewed: Yes: I reviewed the patient's lab results. Lab Results 06/14/20 19:40: WBC 15.9 H, RBC 4.13 L, Hgb 13.3, Hct 39.8, MCV 96.2, MCH 32.1 H, MCHC 33.4, RDW 14.0, Plt Count 374, MPV 8.4, Neut % (Auto) 61.6, Lymph % (Auto) 30.1, O'Brien % (Auto) 5.0, Eos % (Auto) 2.8, Baso % (Auto) 0.5, Neut # (Auto) 9.8 H, Lymph # (Auto) 4.8 H, O'Brien # (Auto) 0.8, Eos # (Auto) 0.4, Baso # (Auto) 0.1, Total Counted 100, Neutrophils % (Manual) 67, Lymphocytes % (Manual) 31, Eosinophils % (Manual) 2, Platelet Estimate Normal, RBC Morphology Normal 06/14/20 19:40: Sodium 138, Potassium 3.6, Chloride 106, Carbon Dioxide 23, Anion Gap 12.6, BUN 19 H, Creatinine 0.90, Estimated Creat Clear 111, Estimated GFR 64, Est GFR ( Amer) 78, Glucose 106 H, Calcium 7.8 L, Total Bilirubin 0.3, AST 18, ALT 12, Alkaline Phosphatase 135 H, Total Protein 6.0 L, Albumin 3.3 L, Globulin 2.7, Albumin/Globulin Ratio 1.2, Amylase 66, Lipase 156 06/14/20 19:40: Lactate 0.8 06/14/20 20:02: Urine Color Dk yellow, Urine Appearance Clear, Urine pH 6.0, Ur Specific [place] >= 1.030, Urine Protein Negative, Urine Glucose (UA) Negative, Urine Ketones Negative, Urine Blood Negative, Urine Nitrate Negative, Urine Bilirubin Negative, Urine Urobilinogen 0.2, Ur Leukocyte Esterase Trace, Urine WBC 10-20, Ur Squamous Epith Cells 5-10, Urine Bacteria 1+, Urine Mucus 1+ Result diagrams: 06/14/20 19:40 06/14/20 19:40 Orders (Tests/Meds): ED MEDICATIONS Generic Name Dose Route Start Last Admin Trade Name Freq PRN Reason Stop Dose Admin Sodium Chloride 1,000 mls @ 999 mls/hr 06/14/20 20:00 06/14/20 19:58 Sod Chlor 0.9% 1000ml Bag IV 06/14/20 21:00 999 mls/hr .Q1H1M CRISTOPHER Administration Sodium Chloride 8 ml 06/14/20 19:53 06/14/20 19:59 Sodium Chloride 0.9% 10ml Vial IV 07/14/20 19:52 8 ml NEEDED PRN Administration dilute pepcid Discontinued Medications Generic Name Dose Route Start Last Admin Trade Name Freq PRN Reason Stop Dose Admin Butorphanol Tartrate 1 mg 06/14/20 21:30 06/14/20 21:33 Stadol 2mg/Ml Vial IV 06/14/20 21:31 1 mg ONCE ONE Adm
[2020-06-14 20:34] LABS: Eosinophils % 2 % (0-3); Lymphocytes % 31 % (10-50); Neutrophils % 67 % (42-76); Platelet Estimate Normal; RBC Morphology Normal; Total Cells Counted 100
[2020-06-14 20:38] LABS: Appearance,Urine CLEAR (Clear); Bilirubin,Urine Negative (Negative); Blood, Urine Negative (Negative); Color,Urine DK YELLOW (Yellow); Glucose,Urine (UA) Negative (Negative); Ketones,Urine Negative (Negative); Leukocyte Esterase,Urine TRACE (Negative); Nitrate,Urine Negative (Negative); Protein,Urine Negative (Negative); Specific Gravity, Urine >= 1.030 (1.005-1.030); Urobilinogen,Urine 0.2 EU/dl (0.2)
[2020-06-14 21:00] VITALS: BP 93/49; O2SAT 100
[2020-06-14 21:18] LABS: Bacteria,Urine 1+ /lpf; Mucus,Urine 1+ /lpf
[2020-06-14 22:08] VITALS: BP 102/76; PULSE 68; RESP 18; O2SAT 91
[2020-06-14 23:14] VITALS: BP 167/83; PULSE 68; RESP 18; TEMP 37; O2SAT 96
== END 2020-06-14 23:18 | disposition home or self-care (01) ==
PROVIDERS: Emergency Provider Family Medicine; PCP Emergency Medicine
DX: R10.10 Upper abdominal pain, unspecified (principal); I48.91 Unspecified atrial fibrillation; I25.10 Atherosclerotic heart disease of native coronary artery without angina pectoris; I25.2 Old myocardial infarction; K21.9 Gastro-esophageal reflux disease without esophagitis; F17.210 Nicotine dependence, cigarettes, uncomplicated; I10 Essential (primary) hypertension; E78.5 Hyperlipidemia, unspecified; Z88.8 Allergy status to other drugs, medicaments and biological substances
CPT/HCPCS: 74177; 80053; 81001; 82150; 83605; 83690; 85007; 85025; 87040; 87086; 96365; 96375; 99284; J1642; J2405; Q9967

== ENCOUNTER 2020-06-15 21:27 | Emergency (ER) | payer MEDICARE, MEDICAID, SELFPAY ==
[2020-06-15 21:39] VITALS: BP 100/64; PULSE 75; RESP 16; TEMP 36.6; O2SAT 98; BMI 41.6
[2020-06-15 22:06] VITALS: BP 105/71; PULSE 74; RESP 16; O2SAT 96
--- NOTE | 2020-06-15 22:07 | PC.NURSE ---
pt currently sitting in bed playing on her phone.
[2020-06-15 22:14] LABS: Basophils # 0.1 K/mm3 (0-0.2); Basophils % 0.5 % (0.1-2.0); Eosinophils # 0.3 K/mm3 (0.0-0.4); Eosinophils % 2.5 % (0.1-12.0); Hemoglobin 12.7 g/dL (12.2-16.2); Lymphocytes # 4.5 K/mm3 (0.7-4.5); Lymphocytes % 31.8 % (10-50); Mean Corpuscular HGB Conc 32.6 g/dL (31.8-35.4); Mean Corpuscular Hemoglobin 31.8 pg (27.0-31.2); Mean Corpuscular Volume 97.3 fl (81-99); Mean Platelet Volume 8.3 fl (7.4-10.4); Monocytes # 0.4 K/mm3 (0.1-1.0); Monocytes % 3.1 % (1.7-9.3); Neutrophils # 8.8 K/mm3 (1.8-7.8); Neutrophils % 62.2 % (37.0-80.0); Platelet Count 349 K/mm3 (142-424); Red Blood Count 4.01 M/mm3 (4.20-5.40); White Blood Count 14.1 K/mm3 (4.8-10.8)
[2020-06-15 22:21] LABS: Chloride 103 mmol/L (98-107)
[2020-06-15 22:22] LABS: Potassium 3.5 mmoL/L (3.5-5.1); Sodium 136 mmol/L (136-145)
[2020-06-15 22:24] LABS: Amylase 66 U/L (30-110); Blood Urea Nitrogen 14 mg/dl (7-17); Creatinine Clearance Estimated 63 mL/min (50-200); Estimated Glomerular Filt Rate 64 ml/min (>60); GFR (African American) 78 ML/MIN (>60)
[2020-06-15 22:25] LABS: Alanine Aminotransferase 13 U/L (12-78); Albumin Level 3.3 g/dl (3.5-5.0); Albumin/Globulin Ratio 1.2 (1.1-1.8); Alkaline Phosphatase 150 U/L (38-126); Anion Gap 11.5 mEq/L (5-15); Aspartate Amino Transferase 15 U/L (14-36); Bilirubin,Total 0.2 mg/dl (0.2-1.3); Calcium 7.9 mg/dl (8.4-10.2); Carbon Dioxide 25 mmol/L (22.0-30.0); Globulin 2.7 g/dL (1.3-3.2); Glucose 158 mg/dl (74-100); Lipase 127 U/L (23-300)
[2020-06-15 23:12] VITALS: BP 102/76; PULSE 65; RESP 16; O2SAT 96
--- NOTE | 2020-06-15 23:29 | HMH.EDNVD ---
ED Disposition Clinical Impression: History of pancreatitis Disposition: Home, Self-Care Condition on Discharge: Good Instructions: DI for Acute Abdomen Additional Instructions: call pcp in am Referrals: Sea So MD [Primary Care Provider] - - Critical Care Critical Care Time: No Attestation: On 06/15/20, the high probability of a clinically significant, sudden or life threatening deterioration of the following system(s) required my full and direct attention, intervention and personal management. The time I documented below is in addition to time spent performing reported procedures but includes the following listed in this critical care notation. Medical Decision Making - Medical Records Medical records reviewed: Yes: I reviewed the patient's medical records. - Delroy Inquiry Pt receiving controlled substance: No Vital Signs: 06/15/20 21:39 06/15/20 22:06 06/15/20 23:12 Temperature 97.8 F Temperature Source Oral Pulse Rate [Right Brachial] 75 74 65 Respiratory Rate 16 16 16 Blood Pressure [Right Arm] 100/64 L 105/71 L 102/76 L Blood Pressure Mean [Right Arm] 76 82 84 Blood Pressure Source [Right Arm] Automatic Cuff Automatic Cuff Automatic Cuff Blood Pressure Position [Right Arm] Sitting Sitting Sitting 02 Sat by Pulse Oximetry 98 96 96 Oxygen Delivery Method Room Air Room Air Room Air 06/15/20 23:40 Temperature Temperature Source Pulse Rate [Right Brachial] 66 Respiratory Rate Blood Pressure [Right Arm] 125/80 Blood Pressure Mean [Right Arm] 95 Blood Pressure Source [Right Arm] Automatic Cuff Blood Pressure Position [Right Arm] Sitting 02 Sat by Pulse Oximetry 98 Oxygen Delivery Method Room Air - Lab Data Lab results reviewed: Yes: I reviewed the patient's lab results. Lab Results 06/15/20 22:04: WBC 14.1 H, RBC 4.01 L, Hgb 12.7, Hct 39.0, MCV 97.3, MCH 31.8 H, MCHC 32.6, RDW 14.0, Plt Count 349, MPV 8.3, Neut % (Auto) 62.2, Lymph % (Auto) 31.8, Hughes % (Auto) 3.1, Eos % (Auto) 2.5, Baso % (Auto) 0.5, Neut # (Auto) 8.8 H, Lymph # (Auto) 4.5, Hughes # (Auto) 0.4, Eos # (Auto) 0.3, Baso # (Auto) 0.1 06/15/20 22:04: Sodium 136, Potassium 3.5, Chloride 103, Carbon Dioxide 25, Anion Gap 11.5, BUN 14 D, Creatinine 0.90, Estimated Creat Clear 63, Estimated GFR 64, Est GFR ( Amer) 78, Glucose 158 H, Calcium 7.9 L, Total Bilirubin 0.2, AST 15, ALT 13, Alkaline Phosphatase 150 H, Total Protein 6.0 L, Albumin 3.3 L, Globulin 2.7, Albumin/Globulin Ratio 1.2, Amylase 66, Lipase 127 Result diagrams: 06/15/20 22:04 06/15/20 22:04 Orders (Tests/Meds): ED MEDICATIONS Generic Name Dose Route Start Last Admin Trade Name Freq PRN Reason Stop Dose Admin Sodium Chloride 1,000 mls @ 999 mls/hr 06/15/20 22:00 06/15/20 21:53 Sod Chlor 0.9% 1000ml Bag IV 06/15/20 23:00 999 mls/hr .Q1H1M CRISTOPHER Administration Discontinued Medications Generic Name Dose Route Start Last Admin Trade Name Freq PRN Reason Stop Dose Admin Hydromorphone HCl 1 mg 06/15/20 21:51 06/15/20 21:53 Dilaudid 2mg/Ml Syringe IV 06/15/20 21:52 1 mg ONCE ONE Administration Hydromorphone HCl 1 mg 06/15/20 22:44 06/15/20 22:45 Dilaudid 2mg/Ml Syringe IV 06/15/20 22:45 1 mg ONCE ONE Administration Promethazine HCl 25 mg 06/15/20 21:51 06/15/20 21:53 Phenergan 25mg/Ml 1ml Vial IV 06/15/20 21:52 25 mg ONCE ONE Administration Sodium Chloride 25 ml 06/15/20 21:51 06/15/20 21:53 Sod Chlor 0.9% 25ml Bag IV 06/15/20 21:52 25 ml ONCE ONE Administration ORDERS Category Date Time Status Urinalysis and Microscopic Stat Lab 06/15/20 21:43 Ordered Nausea/Vomiting/Diarrhea HPI - General Chief complaint: Abdominal Pain Stated complaint: Abd Pain,Pancreatitis Time Seen by Provider: 06/15/20 22:20 Mode of Arrival: Family Vehicle Source of Information: Patient, Spouse, Medical Record Limitations: No Limitations Description of Symptoms (Recalled from ER Triage
[2020-06-15 23:40] VITALS: BP 125/80; PULSE 66; O2SAT 98
[2020-06-16 00:16] VITALS: BP 106/80; PULSE 67; RESP 15; TEMP 36.6; O2SAT 97
== END 2020-06-16 00:26 | disposition home or self-care (01) ==
PROVIDERS: Emergency Provider Emergency Medicine; PCP Emergency Medicine
DX: K85.90 Acute pancreatitis without necrosis or infection, unspecified (principal); I48.91 Unspecified atrial fibrillation; E78.5 Hyperlipidemia, unspecified; I10 Essential (primary) hypertension; K21.9 Gastro-esophageal reflux disease without esophagitis; I25.2 Old myocardial infarction; Z88.5 Allergy status to narcotic agent; Z79.899 Other long term (current) drug therapy
CPT/HCPCS: 80053; 82150; 83690; 85025; 96365; 96375; 96376; 99283; J1642

== ENCOUNTER 2020-06-17 15:44 | Emergency (ER) | payer MEDICARE, MEDICAID, SELFPAY ==
[2020-06-17] VITALS (8 sets, daily range): BP systolic 90–117; BP diastolic 60–78; PULSE 67–85; RESP 18–22; TEMP 36.8–37.1; O2SAT 69–100; BMI 37.1
--- NOTE | 2020-06-17 16:57 | PC.NURSE ---
pt reports she has previously had to have pancreatic enzymes per IV when her pancreatitis flares up this bad.
[2020-06-17 18:00] LABS: Basophils # 0.1 K/mm3 (0-0.2); Basophils % 0.6 % (0.1-2.0); Eosinophils # 0.3 K/mm3 (0.0-0.4); Eosinophils % 1.9 % (0.1-12.0); Hematocrit 39.6 % (37.0-47.0); Hemoglobin 13.1 g/dL (12.2-16.2); Lymphocytes # 4.2 K/mm3 (0.7-4.5); Lymphocytes % 24.8 % (10-50); Mean Corpuscular Hemoglobin 31.3 pg (27.0-31.2); Monocytes # 0.6 K/mm3 (0.1-1.0); Monocytes % 3.3 % (1.7-9.3); Neutrophils # 11.7 K/mm3 (1.8-7.8); Neutrophils % 69.5 % (37.0-80.0); Platelet Count 348 K/mm3 (142-424); Red Blood Count 4.17 M/mm3 (4.20-5.40); Red Cell Distribution Width 14.3 % (11.5-17.5); White Blood Count 16.9 K/mm3 (4.8-10.8)
[2020-06-17 18:02] LABS: MANUAL DIFFERENTIAL MANUAL DIFFERENTIAL (MANUAL DIFF)
[2020-06-17 18:07] LABS: Alanine Aminotransferase 14 U/L (12-78); Albumin Level 3.6 g/dl (3.5-5.0); Albumin/Globulin Ratio 1.2 (1.1-1.8); Alkaline Phosphatase 162 U/L (38-126); Amylase 55 U/L (30-110); Anion Gap 9.2 mEq/L (5-15); Aspartate Amino Transferase 21 U/L (14-36); Bilirubin,Total 0.4 mg/dl (0.2-1.3); Blood Urea Nitrogen 9 mg/dl (7-17); Calcium 8.2 mg/dl (8.4-10.2); Carbon Dioxide 34 mmol/L (22.0-30.0); Chloride 98 mmol/L (98-107); Creatinine Clearance Estimated 143 mL/min (50-200); Estimated Glomerular Filt Rate 86 ml/min (>60); GFR (African American) 104 ML/MIN (>60); Globulin 2.9 g/dL (1.3-3.2); Glucose 106 mg/dl (74-100); Lipase 75 U/L (23-300); Potassium 3.2 mmoL/L (3.5-5.1); Sodium 138 mmol/L (136-145); Total Protein,Serum 6.5 g/dl (6.3-8.2)
[2020-06-17 18:10] LABS: Lymphocytes % 29 % (10-50); Monocytes % 3 % (2-9); Neutrophils % 63 % (42-76); Platelet Estimate Normal; RBC Morphology Normal; Total Cells Counted 100
--- NOTE | 2020-06-17 18:43 | PC.NURSE ---
pt requesting pain medication, notified GLORIA JUAREZ
--- NOTE | 2020-06-17 19:12 | PC.NURSE ---
shift change report given to marionrn
--- NOTE | 2020-06-17 21:25 | HMH.EDNVD ---
ED Disposition Clinical Impression: Abdominal pain in female, Epigastric pain Leucocytosis Qualifiers: Leukocytosis type: unspecified Qualified Code(s): D72.829 - Elevated white blood cell count, unspecified Disposition: Home, Self-Care Condition on Discharge: Good Instructions: DI for Acute Abdomen Additional Instructions: fluids and call pcp for follow up and gi - Prescriptions: Hydromorphone HCl [Dilaudid 2mg tablet] 2 mg PO Q6H #7 tab Prescription Printed Referrals: Sea So MD [Primary Care Provider] - - Critical Care Critical Care Time: No Attestation: On 06/17/20, the high probability of a clinically significant, sudden or life threatening deterioration of the following system(s) required my full and direct attention, intervention and personal management. The time I documented below is in addition to time spent performing reported procedures but includes the following listed in this critical care notation. Medical Decision Making - Medical Records Medical records reviewed: Yes: I reviewed the patient's medical records. - Delroy Inquiry Pt receiving controlled substance: No Vital Signs: 06/17/20 16:43 06/17/20 17:17 06/17/20 17:27 Temperature 98.7 F Temperature Source Oral Pulse Rate [Left Radial] 76 73 Respiratory Rate 18 20 Blood Pressure [Left Arm] 104/72 L 117/69 90/60 L Blood Pressure Mean [Left Arm] 82 85 70 Blood Pressure Source [Left Arm] Automatic Cuff Automatic Cuff Automatic Cuff Blood Pressure Position [Left Arm] Sitting Supine 02 Sat by Pulse Oximetry 97 69 L 100 Oxygen Delivery Method Nasal Cannula Room Air Oxygen Flow Rate (LPM) 2 06/17/20 18:07 06/17/20 18:52 06/17/20 19:53 Temperature Temperature Source Pulse Rate [Left Radial] 73 67 79 Respiratory Rate 22 Blood Pressure [Left Arm] 107/73 L 100/67 L 111/78 Blood Pressure Mean [Left Arm] 84 78 89 Blood Pressure Source [Left Arm] Automatic Cuff Automatic Cuff Blood Pressure Position [Left Arm] Sitting Sitting Supine 02 Sat by Pulse Oximetry 100 95 Oxygen Delivery Method Room Air Room Air Oxygen Flow Rate (LPM) 06/17/20 21:00 Temperature Temperature Source Pulse Rate [Left Radial] 77 Respiratory Rate 20 Blood Pressure [Left Arm] 104/60 L Blood Pressure Mean [Left Arm] 74 Blood Pressure Source [Left Arm] Automatic Cuff Blood Pressure Position [Left Arm] Supine 02 Sat by Pulse Oximetry 96 Oxygen Delivery Method Room Air Oxygen Flow Rate (LPM) - Lab Data Lab results reviewed: Yes: I reviewed the patient's lab results. Lab Results 06/17/20 17:52: WBC 16.9 H, RBC 4.17 L, Hgb 13.1, Hct 39.6, MCV 95.0, MCH 31.3 H, MCHC 33.0, RDW 14.3, Plt Count 348, MPV 8.0, Neut % (Auto) 69.5, Lymph % (Auto) 24.8, [place] % (Auto) 3.3, Eos % (Auto) 1.9, Baso % (Auto) 0.6, Neut # (Auto) 11.7 H, Lymph # (Auto) 4.2, [place] # (Auto) 0.6, Eos # (Auto) 0.3, Baso # (Auto) 0.1, Total Counted 100, Neutrophils % (Manual) 63, Lymphocytes % (Manual) 29, Atypical Lymphs % 5.0, Monocytes % (Manual) 3, Platelet Estimate Normal, RBC Morphology Normal 06/17/20 17:52: Sodium 138, Potassium 3.2 L, Chloride 98, Carbon Dioxide 34 H D, Anion Gap 9.2, BUN 9 D, Creatinine 0.70 D, Estimated Creat Clear 143, Estimated GFR 86, Est GFR ( Amer) 104 D, Glucose 106 H, Calcium 8.2 L, Total Bilirubin 0.4, AST 21 D, ALT 14, Alkaline Phosphatase 162 H, Total Protein 6.5, Albumin 3.6, Globulin 2.9, Albumin/Globulin Ratio 1.2, Amylase 55, Lipase 75 Result diagrams: 06/17/20 17:52 06/17/20 17:52 Orders (Tests/Meds): ED MEDICATIONS Generic Name Dose Route Start Last Admin Trade Name Freq PRN Reason Stop Dose Admin Sodium Chloride 1,000 mls @ 999 mls/hr 06/17/20 18:15 06/17/20 18:11 Sod Chlor 0.9% 1000ml Bag IV 06/17/20 19:15 999 mls/hr .Q1H1M CRISTOPHER Administration Discontinued Medications Generic Name Dose Route Start Last Admin Trade Name Freq PRN Reason Stop Dose Admin Hydromorphone HCl 1 mg 07
--- NOTE | 2020-06-17 21:32 | PC.NURSE ---
called lab to draw lactic acid on patient
--- NOTE | 2020-06-17 21:33 | PC.NURSE ---
Pt has requested to speak with ER physician x3. ER MD notified.
--- NOTE | 2020-06-17 22:02 | PC.NURSE ---
paged pharmacy production counter
--- NOTE | 2020-06-17 22:02 | PC.NURSE ---
lactic acid drawn
[2020-06-17 22:16] LABS: Lactic Acid 1.2 mmol/L (0.7-2.1)
== END 2020-06-17 22:22 | disposition home or self-care (01) ==
PROVIDERS: Emergency Provider Emergency Medicine; PCP Emergency Medicine
DX: R10.13 Epigastric pain (principal); D72.829 Elevated white blood cell count, unspecified; I25.10 Atherosclerotic heart disease of native coronary artery without angina pectoris; I10 Essential (primary) hypertension; E78.5 Hyperlipidemia, unspecified; E11.9 Type 2 diabetes mellitus without complications; K21.9 Gastro-esophageal reflux disease without esophagitis; I48.91 Unspecified atrial fibrillation; I25.2 Old myocardial infarction; F17.210 Nicotine dependence, cigarettes, uncomplicated; Z88.5 Allergy status to narcotic agent; Z79.899 Other long term (current) drug therapy; Z90.09 Acquired absence of other part of head and neck; Z90.49 Acquired absence of other specified parts of digestive tract; Z90.79 Acquired absence of other genital organ(s)
CPT/HCPCS: 36415; 80053; 82150; 83605; 83690; 85007; 85025; 96365; 96375; 99284; J1642; J2405

== ENCOUNTER 2020-06-22 17:30 | Observation (INO) | payer MEDICARE, MEDICAID, SELFPAY ==
[2020-06-22] VITALS (12 sets, daily range): BP systolic 74–105; BP diastolic 45–68; PULSE 65–94; RESP 12–18; TEMP 36.6; O2SAT 93–100; BMI 36.0; BMI 37.1
--- NOTE | 2020-06-22 17:37 | HMH.EDGENADL ---
ED Disposition Clinical Impression: Decreased oral intake, Uncontrolled pain Pancreatitis Qualifiers: Chronicity: chronic Pancreatitis type: unspecified pancreatitis type Qualified Code(s): K86.1 - Other chronic pancreatitis Disposition: Admitted as Observation Condition on Discharge: Fair Instructions: DI for Acute Abdomen Time of Disposition: 19:51 - Critical Care Critical Care Time: No Attestation: On , the high probability of a clinically significant, sudden or life threatening deterioration of the following system(s) required my full and direct attention, intervention and personal management. The time I documented below is in addition to time spent performing reported procedures but includes the following listed in this critical care notation. Medical Decision Making - Medical Records Medical records reviewed: Yes: I reviewed the patient's medical records. - Delroy Inquiry Pt receiving controlled substance: Yes Delroy was queried for this patient: No Risks and benefits of using a controlled substance: were discussed with pt by me Vital Signs: 06/22/20 17:30 06/22/20 17:45 06/22/20 18:12 Temperature 98 F Temperature Source Oral Pulse Rate [Left Radial] 67 67 67 Respiratory Rate 18 Blood Pressure [Right Arm] 84/51 L 105/68 L 90/51 L Blood Pressure Mean [Right Arm] 62 80 64 Blood Pressure Position [Right Arm] Sitting Sitting 02 Sat by Pulse Oximetry 98 06/22/20 19:10 06/22/20 19:28 Temperature Temperature Source Pulse Rate [Left Radial] 68 73 Respiratory Rate 18 Blood Pressure [Right Arm] 84/52 L 88/56 L Blood Pressure Mean [Right Arm] 62 66 Blood Pressure Position [Right Arm] 02 Sat by Pulse Oximetry 96 - Lab Data Lab Results 06/22/20 17:30: WBC 11.7 H, RBC 3.97 L, Hgb 12.7, Hct 38.5, MCV 96.9, MCH 32.0 H, MCHC 33.0, RDW 14.2, Plt Count 340, MPV 8.4, Neut % (Auto) 69.9, Lymph % (Auto) 22.9, [place] % (Auto) 4.3, Eos % (Auto) 2.7, Baso % (Auto) 0.3, Neut # (Auto) 8.1 H, Lymph # (Auto) 2.7, [place] # (Auto) 0.5, Eos # (Auto) 0.3, Baso # (Auto) 0.0 06/22/20 18:10: Sodium 139, Potassium 3.3 L, Chloride 101, Carbon Dioxide 31 H, Anion Gap 10.3, BUN 10, Creatinine 0.90, Estimated Creat Clear 111, Estimated GFR 64, Est GFR ( Amer) 78, Glucose 127 H, Calcium 7.5 L, Total Bilirubin 0.4, AST 21, ALT 14, Alkaline Phosphatase 117, Troponin I 0.02, Total Protein 5.6 L, Albumin 3.1 L, Globulin 2.5, Albumin/Globulin Ratio 1.2, Amylase 37, Lipase 77 Result diagrams: 06/22/20 17:30 06/22/20 18:10 Orders (Tests/Meds): ED MEDICATIONS Generic Name Dose Route Start Last Admin Trade Name Freq PRN Reason Stop Dose Admin Sodium Chloride 1,000 mls @ 999 mls/hr 06/22/20 17:45 06/22/20 17:42 Sod Chlor 0.9% 1000ml Bag IV 06/22/20 18:45 999 mls/hr .Q1H1M CRISTOPHER Administration Discontinued Medications Generic Name Dose Route Start Last Admin Trade Name Freq PRN Reason Stop Dose Admin Hydromorphone HCl 1 mg 06/22/20 17:38 06/22/20 17:42 Dilaudid 2mg/Ml Syringe IV 06/22/20 17:39 1 mg ONCE ONE Administration Hydromorphone HCl 0.5 mg 06/22/20 19:12 06/22/20 18:41 Dilaudid 2mg/Ml Syringe IV 06/22/20 19:13 Not Given ONCE ONE Ondansetron HCl 4 mg 06/22/20 17:38 06/22/20 17:42 Zofran 4mg/2ml Vial IV 06/22/20 17:39 4 mg ONCE ONE Administration ORDERS Category Date Time Status Troponin I Q3H Lab 06/22/20 20:45 Ordered Troponin I Q3H Lab 06/22/20 23:45 Ordered Medical Decision Narrative: In summary this is a 59-year-old female with history of pancreatitis presenting to the emergency department with abdominal pain. Patient appears to feel unwell on arrival. Vital signs are stable. Differential diagnoses include pancreatitis, pancreatic pseudocyst, abscess, dehydration, electrolyte abnormality. Plan to obtain CBC, CMP, lipase, CT scan of the abdomen and pelvis. Patient given IV fluid bolus, IV Zofran, IV Dilaudid. Laboratory results a
[2020-06-22 17:43] LABS: Basophils % 0.3 % (0.1-2.0); Eosinophils # 0.3 K/mm3 (0.0-0.4); Eosinophils % 2.7 % (0.1-12.0); Hematocrit 38.5 % (37.0-47.0); Hemoglobin 12.7 g/dL (12.2-16.2); Lymphocytes # 2.7 K/mm3 (0.7-4.5); Lymphocytes % 22.9 % (10-50); Mean Corpuscular Volume 96.9 fl (81-99); Mean Platelet Volume 8.4 fl (7.4-10.4); Monocytes # 0.5 K/mm3 (0.1-1.0); Monocytes % 4.3 % (1.7-9.3); Neutrophils # 8.1 K/mm3 (1.8-7.8); Neutrophils % 69.9 % (37.0-80.0); Platelet Count 340 K/mm3 (142-424); Red Blood Count 3.97 M/mm3 (4.20-5.40); Red Cell Distribution Width 14.2 % (11.5-17.5); White Blood Count 11.7 K/mm3 (4.8-10.8)
[2020-06-22 18:29] LABS: Alanine Aminotransferase 14 U/L (12-78); Albumin Level 3.1 g/dl (3.5-5.0); Albumin/Globulin Ratio 1.2 (1.1-1.8); Alkaline Phosphatase 117 U/L (38-126); Amylase 37 U/L (30-110); Anion Gap 10.3 mEq/L (5-15); Aspartate Amino Transferase 21 U/L (14-36); Bilirubin,Total 0.4 mg/dl (0.2-1.3); Blood Urea Nitrogen 10 mg/dl (7-17); Calcium 7.5 mg/dl (8.4-10.2); Carbon Dioxide 31 mmol/L (22.0-30.0); Chloride 101 mmol/L (98-107); Creatinine Clearance Estimated 111 mL/min (50-200); Estimated Glomerular Filt Rate 64 ml/min (>60); GFR (African American) 78 ML/MIN (>60); Globulin 2.5 g/dL (1.3-3.2); Glucose 127 mg/dl (74-100); Lipase 77 U/L (23-300); Potassium 3.3 mmoL/L (3.5-5.1); Sodium 139 mmol/L (136-145); Total Protein,Serum 5.6 g/dl (6.3-8.2)
[2020-06-22 18:41] LABS: Troponin I 0.02 ng/ml (0.00-0.034)
--- NOTE | 2020-06-22 19:10 | HMH.PHACLD ---
Linda Arteaga has received discharge medication counseling on the following medications:
--- NOTE | 2020-06-22 20:01 | PC.NURSE ---
THIS NURSE ATTEMPTED TO DO PT MED REC. WITH PT AND PT . PT WAS STILL DROWSY FROM PAIN MEDICATION FROM DAYSHIFT. PT WAS ORIENTED BUT UNABLE TO REMEMBER THE NEW MEDICATIONS DR. MARQUEZ PUT HER ON. PT AND PT WERE ABLE TO CONFIRM THE MEDICATIONS CONFIRMED ON PT MED REC BUT UNABLE TO REMEMBER ANY NEW MEDICATIONS AT THIS TIME.
--- NOTE | 2020-06-22 21:35 | PC.NURSE ---
Pt very lethargic and hypotensive, Stadol not given and 1 liter of fluid started
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
--- NOTE | 2020-06-22 23:29 | PC.NURSE ---
Pt continues to be lethargic and hypotensive, will continue to monitor
--- NOTE | 2020-06-22 23:47 | PC.NURSE ---
RN at the bedside as pt continues to be hypotensive
[2020-06-23] VITALS (10 sets, daily range): BP systolic 85–149; BP diastolic 47–99; PULSE 69–81; RESP 16–20; TEMP 36.4–37.2; O2SAT 90–100; BMI 38.6
--- NOTE | 2020-06-23 01:29 | PC.NURSE ---
Shandra updated on pt condition, pt VS stable and ready for transport
--- NOTE | 2020-06-23 01:49 | PC.NURSE ---
PT ARRIVED TO THE FLOOR VIA STRETCHER FROM ED AT 0148.
--- NOTE | 2020-06-23 05:21 | PC.NURSE ---
A&X4. PT TOLERATING 2LNC WELL. UPON ARRIVAL TO FLOOR, PT ASKED FOR PAIN MEDICATION AND XANAX. THIS NURSE EXPLAINED TO PT HOW THE PAIN MEDICATION HAD EFFECTED HER BP IN THE ER. PT WAS VERY UPSET, BUT WAS FALLING ASLEEP DURING OUR CONVERSATION. PT C/O PAIN IN HER UPPER ABD, RADIATING TO HER BACK, 8 ON 1-10 SCALE. PT FELL ASLEEP AFTER ADMISSION QUESTIONS AND HAS BEEN RESTING IN BED WITH EYES CLOSED T/O REMAINDER OF SHIFT. PT AT BEDSIDE. PT HAS HAD NO OTHER C/O THUS FAR. PT TOLERATING NPO DIET WELL. VSS WILL CONTINUE TO MONITOR.
--- NOTE | 2020-06-23 07:32 | P.CONPHA_ITS ---
[facility] Pharmacy VTE Monitoring - Patient Demographics Admission date: 06/22/20 Report Date: 06/23/20 Time: 07:32 Allergies/Adverse Reactions: Patient Allergies codeine [CODEINE] Allergy (Intermediate, Verified 06/05/20 09:27) N/V ketorolac [KETOROLAC] Allergy (Intermediate, Verified 06/05/20 09:27) Hives meperidine [MEPERIDINE] Allergy (Intermediate, Verified 06/05/20 09:27) Hives tramadol [TRAMADOL] Allergy (Intermediate, Verified 06/05/20 09:27) Hives verapamil Allergy (Mild, Verified 06/05/20 09:27) ciprofloxacin Adverse Reaction (Severe, Verified 06/05/20 09:27) Interacts with cymbalta Height: 1.68 m Weight: 108.664 kg Patient Problems: Current Active Problems Pancreatitis (Acute) Decreased oral intake (Acute) Uncontrolled pain (Acute) - VTE Risk Labs: VTE Related Lab Results Hgb 12.7 g/dL (12.2-16.2) 06/22/20 17:30 Hct 38.5 % (37.0-47.0) 06/22/20 17:30 Plt Count 340 K/mm3 (142-424) 06/22/20 17:30 BUN 10 mg/dl (7-17) 06/22/20 18:10 Creatinine 0.90 mg/dl (0.52-1.04) 06/22/20 18:10 Estimated Creat Clear 111 mL/min (50-200) 06/22/20 18:10 VTE Score: 6 VTE Risk Level: Moderate Risk - Prophylaxis VTE Prophylaxis Ordered?: Yes Types of VTE Prophylaxis: TEDS Knee High, Pharmacological Location of Applied Device: Bilateral Lower Extremeties Pharmacologic Type: Other (ELIQUIS) - VTE Diagnosis Confirmed Treatment or plan recommended: Continue Current Treatment
[2020-06-23 07:51] LABS: Basophils % 0.2 % (0.1-2.0); Chloride 102 mmol/L (98-107); Eosinophils # 0.2 K/mm3 (0.0-0.4); Eosinophils % 1.7 % (0.1-12.0); Hemoglobin 11.5 g/dL (12.2-16.2); Lymphocytes # 2.1 K/mm3 (0.7-4.5); Lymphocytes % 16.6 % (10-50); Mean Corpuscular HGB Conc 31.1 g/dL (31.8-35.4); Mean Corpuscular Hemoglobin 31.5 pg (27.0-31.2); Mean Corpuscular Volume 101.2 fl (81-99); Monocytes # 0.4 K/mm3 (0.1-1.0); Monocytes % 3.6 % (1.7-9.3); Neutrophils # 9.7 K/mm3 (1.8-7.8); Neutrophils % 77.9 % (37.0-80.0); Platelet Count 305 K/mm3 (142-424); Potassium 3.9 mmoL/L (3.5-5.1); Red Blood Count 3.65 M/mm3 (4.20-5.40); Sodium 138 mmol/L (136-145); White Blood Count 12.4 K/mm3 (4.8-10.8)
[2020-06-23 07:54] LABS: Anion Gap 7.9 mEq/L (5-15); Blood Urea Nitrogen 9 mg/dl (7-17); Calcium 7.3 mg/dl (8.4-10.2); Carbon Dioxide 32 mmol/L (22.0-30.0); Creatinine Clearance Estimated 130 mL/min (50-200); Estimated Glomerular Filt Rate 73 ml/min (>60); GFR (African American) 89 ML/MIN (>60); Glucose 131 mg/dl (74-100)
--- NOTE | 2020-06-23 12:03 | HMH.PHAINT ---
HOME MEDICATIONS RECONCILED.
--- NOTE | 2020-06-23 14:32 | HMH.ACPN2 ---
Internal Medicine - PN: Subj *Date: 06/24/20 *Time: 08:03 Interval history: still with pain -pt with stable labs and will have gi consult today Exam Vital signs and Labs for Last 24 Hours: Temp Pulse Resp BP Pulse Ox 98.1 F 76 18 101/63 L 93 L 06/23/20 08:00 06/23/20 08:00 06/23/20 08:00 06/23/20 08:00 06/23/20 08:00 Laboratory Results - last 24 hr 06/22/20 17:30: WBC 11.7 H, RBC 3.97 L, Hgb 12.7, Hct 38.5, MCV 96.9, MCH 32.0 H, MCHC 33.0, RDW 14.2, Plt Count 340, MPV 8.4, Neut % (Auto) 69.9, Lymph % (Auto) 22.9, [place] % (Auto) 4.3, Eos % (Auto) 2.7, Baso % (Auto) 0.3, Neut # (Auto) 8.1 H, Lymph # (Auto) 2.7, [place] # (Auto) 0.5, Eos # (Auto) 0.3, Baso # (Auto) 0.0 06/22/20 18:10: Sodium 139, Potassium 3.3 L, Chloride 101, Carbon Dioxide 31 H, Anion Gap 10.3, BUN 10, Creatinine 0.90, Estimated Creat Clear 111, Estimated GFR 64, Est GFR ( Amer) 78, Glucose 127 H, Calcium 7.5 L, Total Bilirubin 0.4, AST 21, ALT 14, Alkaline Phosphatase 117, Troponin I 0.02, Total Protein 5.6 L, Albumin 3.1 L, Globulin 2.5, Albumin/Globulin Ratio 1.2, Amylase 37, Lipase 77 06/23/20 07:30: WBC 12.4 H, RBC 3.65 L, Hgb 11.5 L, Hct 37.0, MCV 101.2 H, MCH 31.5 H, MCHC 31.1 L, RDW 14.0, Plt Count 305, MPV 8.0, Neut % (Auto) 77.9, Lymph % (Auto) 16.6, [place] % (Auto) 3.6, Eos % (Auto) 1.7, Baso % (Auto) 0.2, Neut # (Auto) 9.7 H, Lymph # (Auto) 2.1, [place] # (Auto) 0.4, Eos # (Auto) 0.2, Baso # (Auto) 0.0 06/23/20 07:30: Sodium 138, Potassium 3.9, Chloride 102, Carbon Dioxide 32 H, Anion Gap 7.9, BUN 9, Creatinine 0.80, Estimated Creat Clear 130, Estimated GFR 73, Est GFR ( Amer) 89, Glucose 131 H, Calcium 7.3 L I & O for Last 24 hours: Intake & Output 06/21/20 06/22/20 06/23/20 06/24/20 11:59 11:59 11:59 11:59 Intake Total 1375 / 1375 Balance 1375 / 1375 Weight 239 lb 9 oz - Constitutional no acute distress - *Routine HEENT Exam Head: Present: normocephalic Eye: Present: EOMI, PERRL ENT: Present: mucous membranes dry - *Routine Neck Exam Present: supple - *Routine Respiratory Exam Present: CTA bilaterally - *Routine Cardiovascular Exam Present: RRR - *Routine Abdominal Exam Present: soft, tenderness - *Routine Extremities Exam Absent: cyanosis, calf tenderness - *Routine Skin Exam Present: intact - *Routine Neurological Exam Present: alert, CN II-XII intact - Routine Psychiatric Exam Present: anxious
--- NOTE | 2020-06-23 15:39 | HMH.GECONS ---
*Admission Date: 06/22/20 *History of present illness: Gastroenterology Consultation Date of Service-June 23, 2020 History of Present Illness: Mrs. Arteaga is a 59-year-old female with chronic abdominal pain and digestive difficulties. She has been a long-term patient of Dr. 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 She was diagnosed with pancreas divisum nearly 20 years ago but this is congenital. The patient has had minor ampulla sphincterotomy and pancreatic stent placement. She is on Creon 36 2 capsules with meals. She did have a CT scan of the abdomen on June 14 that did not show significant pancreatic calcifications or atrophy. There was a moderate amount of retained stool within the digestive tract/colon and there was some evidence of possible gastroenteritis. The patient does report moderate gassiness and bloating. She has generalized abdominal pain and some periumbilical pain that radiates into the back. She has marked diarrhea but has not had a bowel movement since being in the hospital. Her labs showed completely normal pancreatic chemistries with amylase 37 and lipase 77. Her liver chemistries (AST 21, ALT 14, alkaline phosphatase 117 and total bilirubin 0.4) were also completely normal. She has not had any recent MRCP. She has not seen Dr. Arenas in a few years because it is difficult to get in according to the patient. She is asking for more pain medication presently. She reports no significant weight loss but she does have nausea. Past Medical History: 1. Hypertension 2. Atrial fibrillation 3. Pancreas divisum with chronic pancreatitis 4. Type 2 diabetes mellitus 5. CASHD 6. GERD 7. Hyperlipidemia Past Surgical History: 1. Cholecystectomy 2. Appendectomy 3. Total abdominal hysterectomy with ARVIN 4. Tubal ligation 5. Tonsillectomy 6. Coronary stent placement Medications: 1. Creon 36 2 p.o. with meals 2. Baby aspirin 3. Spironolactone 4. Furosemide 5. Albuterol 6. Lisinopril 7. Diltiazem 8. Montelukast 9. Omeprazole 10. Xanax 3 times daily 11. Atorvastatin ALLERGIES: Demerol and Toradol intolerance Social History: The patient does live with her significant other. She has a 40-year-old son. She is unemployed. She lives in [facility]. She continues to smoke 1/4 to 1/2 pack of cigarettes daily. She reports no alcohol Family History: Noncontributory Review of Systems: See chart Physical Examination: Gen.: The patient is a well-developed well-nourished individual in no acute distress HEENT: Normocephalic/atraumatic extraocular movements are intact anicteric Neck: Supple no lymphadenopathy Chest: Clear to auscultation Cardiovascular: Regular rate and rhythm Abdomen: Normoactive bowel sounds, mild distention with tenderness in the lower quadrants and epigastrium, palpable stool and gas present, no rebound or guarding, no masses Extremities: Trace edema Labs: See chart and above Radiology: See CAT scan report Impression/Plan: 1. Acute on chronic abdominal pain. The patient has an extensive history with Dr. Jaleel Arenas and I would like for her to follow back with him as an outpatient. The patient most likely does have pancreas divisum but I am not fully convinced that all of her abdominal complaints are related to the P divisum or even chronic pancreatitis which is not apparent on her CAT scan. I do feel that she most likely has some chronic irritable bowel syndrome as well with visceral sensitivity. I am going to further delineate the pancreas with MRCP to determine whether there is any ductal strictures, calcifications or evidence of P divisum with dilation of the pancreatic duct. I am also going to get a fecal pancreatic elastase to determine whether her diarrhea is related to maldigestion and chronic pancreatitis. I did indicate to the patient that smoking is a very large factor and risk factor for chronic pancreatitis and she does nee
--- NOTE | 2020-06-23 16:11 | MR_ITS ---
PROCEDURE: MR ABDOMEN WO CON CLINICAL INDICATION: PANCREATITIS, chronic pancreatitis CHRONIC PANCREATITIS, ABD PAIN, NAUSEA COMPARISON: CT ABDOMEN PELVIS W CON from 06/14/2020 TECHNIQUE: Routine multiplanar multi echo sequences are performed without gadolinium enhancement. Best IMAGES POSSIBLE PT WOULD NOT HOLD STILL AT END OF EXAM, KEPT MOVING LEGS UP AND DOWN. MRCP images also performed FINDINGS: There has been a prior cholecystectomy. The common bile duct is prominent at 9 mm. No internal filling defects are however evident. No strictures of the common bile duct evident. The pancreatic duct is slightly prominent measuring up to 4 mm. No obvious filling defects or strictures apparent. No pancreatic mass evident. There is a 2.3 cm right renal cyst The liver, spleen, and adrenal glands have an unremarkable appearance. There is a small umbilical hernia containing fat IMPRESSION: 1. Prior cholecystectomy. There is mild prominence of the common bile duct measuring up to 9 mm but no obvious internal filling defect or stricture. The prominence could be related to biliary ectasia from prior cholecystectomy. 2. Mild prominence of the pancreatic duct at 4 mm but no obvious strictures or filling defects or masses. Dictated by: Wili Arriola MD 06/24/2020 12:00 Electronically signed by Wili Arriola MD in [place] 06/24/2020 12:00
--- NOTE | 2020-06-23 17:49 | PC.NURSE ---
PT IS A+O*4 BUT HAS RESTED COMFORTABLY FOR MOST OF SHIFT, NO COMPLAINTS OF PAIN OR DISCOMFORT SINCE RECIEVING FIRST DOSE OF NEW MEDS PER JAN. VSS. MRCP PERFORMED PER MD ORDERS THIS EVENING, PT HAS NOT C/O SOA WHILE ON 2L NC.
--- NOTE | 2020-06-23 19:08 | PC.NURSE ---
report given to margoth
--- NOTE | 2020-06-23 22:34 | PC.NURSE ---
Pt's room air sat at rest = 87%.
--- NOTE | 2020-06-24 03:03 | PC.NURSE ---
A&OX4. PT HAS TOLERATED 2LNC WELL THROUGHOUT SHIFT. RESPIRATIONS REGULAR AND UNLABORED. LUNG SOUNDS DIMINISHED AND EXPIRATORY WHEEZES NOTED THROUGHOUT. NO COUGH NOTED. HAND SEAFOOD SERVICE TEAM MEMBER EQUAL. HEART RATE REGULAR. NO EDEMA NOTED. +2 PULSES NOTED THROUGHOUT. CLUBBING NOTED TO FINGERS OF BOTH HANDS. PT HAS REMAINED AFEBRILE THUS FAR. NO COMPLAINTS OF PAIN OR NAUSEA THUS FAR. ACTIVE BOWEL SOUNDS HEARD IN ALL 4 QUADRANTS. SOFT AND TENDER. PT IS INDEPENDENT WITH ADLS AND TAKES HERSELF TO THE RESTROOM. PT CURRENTLY RESTING IN BED WITH CALL LIGHT WITHIN REACH. BED IN LOWEST POSITION. VSS. NO CONCERNS AT THIS TIME. WILL CONTINUE TO MONITOR.
[2020-06-24 04:00] VITALS: BP 90/62; PULSE 67; RESP 16; TEMP 36.8; O2SAT 97
[2020-06-24 05:03] VITALS: BMI 38.3
[2020-06-24 08:00] VITALS: BP 110/79; PULSE 72; RESP 16; TEMP 36.4; O2SAT 92
--- NOTE | 2020-06-24 09:19 | HMH.ACPN2 ---
Internal Medicine - PN: Subj *Date: 06/25/20 *Time: 07:45 Interval history: doing better but still with pain - diet better Exam Vital signs and Labs for Last 24 Hours: Temp Pulse Resp BP Pulse Ox 97.6 F 72 16 110/79 92 L 06/24/20 08:00 06/24/20 08:00 06/24/20 08:00 06/24/20 08:00 06/24/20 08:00 I & O for Last 24 hours: Intake & Output 06/21/20 06/22/20 06/23/20 06/24/20 11:59 11:59 11:59 11:59 Intake Total 1375 / 1375 3500 / 3500 Output Total 400 / 400 300 / 300 Balance 975 / 975 3200 / 3200 Weight 239 lb 9 oz 238 lb 9.489 oz - Constitutional no acute distress, obese - *Routine HEENT Exam Head: Present: normocephalic Eye: Present: EOMI, PERRL ENT: Present: mucous membranes dry - *Routine Neck Exam Present: supple - *Routine Respiratory Exam Present: CTA bilaterally - *Routine Cardiovascular Exam Present: RRR - *Routine Abdominal Exam Present: soft, tenderness - *Routine Extremities Exam Present: full ROM - *Routine Skin Exam Present: intact - *Routine Neurological Exam Present: alert, CN II-XII intact - Routine Psychiatric Exam Present: normal affect
[2020-06-24 11:25] VITALS: BP 119/75; PULSE 74; RESP 16; TEMP 36.6; O2SAT 97
[2020-06-24 15:20] VITALS: BP 133/94; PULSE 77; RESP 20; TEMP 36.6; O2SAT 90
[2020-06-24 20:00] VITALS: BP 109/68; PULSE 86; RESP 16; TEMP 36.4; O2SAT 96
[2020-06-24 23:51] VITALS: BP 105/63; PULSE 80; RESP 17; TEMP 36.9; O2SAT 92
[2020-06-25 04:12] VITALS: BP 106/61; PULSE 84; RESP 18; TEMP 36.8; O2SAT 90
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
[2020-06-25 05:00] VITALS: BMI 37.9
[2020-06-25 08:00] VITALS: BP 110/47; PULSE 83; RESP 20; TEMP 37.1; O2SAT 98
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
--- NOTE | 2020-06-25 10:36 | HMH.PHAINT ---
DISCHARGE COUNSELING COMPLETED.
== END 2020-06-25 09:45 | disposition home or self-care (01) ==
LOC: ER 19:51 → 2ND 21:22
PROVIDERS: Internal Medicine Gastroenterology; Admitting Provider Emergency Medicine; Emergency Provider Emergency Medicine; PCP Emergency Medicine; Visit Provider Emergency Medicine
DX: R10.9 Unspecified abdominal pain (principal); E11.9 Type 2 diabetes mellitus without complications; I10 Essential (primary) hypertension; I48.91 Unspecified atrial fibrillation; Z72.0 Tobacco use; I25.2 Old myocardial infarction; Z86.718 Personal history of other venous thrombosis and embolism; E78.5 Hyperlipidemia, unspecified; I25.10 Atherosclerotic heart disease of native coronary artery without angina pectoris; Z79.82 Long term (current) use of aspirin; Z79.01 Long term (current) use of anticoagulants; Z79.51 Long term (current) use of inhaled steroids; Z88.8 Allergy status to other drugs, medicaments and biological substances; Z79.899 Other long term (current) drug therapy; Z79.84 Long term (current) use of oral hypoglycemic drugs
CPT/HCPCS: 36415; 74181; 76376; 80048; 80053; 82150; 82656; 83690; 84484; 85025; 94761; 96365; 96375; 99284; G0378; J1642; J2405

== ENCOUNTER 2020-07-11 18:25 | Observation (INO) | payer MEDICARE, MEDICAID, SELFPAY ==
[2020-07-11] VITALS (7 sets, daily range): BP systolic 78–98; BP diastolic 47–66; PULSE 70–87; RESP 12–17; TEMP 36.6–37.2; O2SAT 96–99; BMI 40.8; BMI 41.1; BMI 38.8
--- NOTE | 2020-07-11 19:00 | CT_ITS ---
PROCEDURE: CT HEAD/BRAIN WO CON CLINICAL INDICATION: syncope Syncope, headache COMPARISON: CT CT HEAD/BRAIN WO CON from 01/06/2020 TECHNIQUE: Axial images obtained. All CT scans at the facility use one or more dose reduction, viz: automated exposure control, ma/kV adjustment per patient size (including targeted exams where dose is matched to indication, i.e. head), or iterative reconstruction technique. FINDINGS: No midline shift, mass effect, intracranial hemorrhage, hydrocephalus, or extra-axial fluid collection is evident. Low-density changes are present in the periventricular region consistent with ischemic gliotic change from microvascular disease most prominent in the right parietal lobe not significantly changed. The calvarium has an unremarkable appearance. Partial opacification noted of the right mastoid sinuses. No sinus air-fluid level. IMPRESSION: 1. No acute intracranial findings. 2. Right mastoid sinus disease Dictated b Wili Arriola MD 07/12/2020 07:17 Wili Arriola MD in [facility] 07/12/2020 07:17
--- NOTE | 2020-07-11 19:00 | ECG_ITS ---
APPROVED REPORT Exam: Resting ECG HR:82 bpm ECG Measurements Heart Rate 82 AXES MS 160 P 39 QRSd 78 QRS 62 QT 398 T 81 QTc 464 <Conclusion> Normal sinus rhythm Prolonged QT Incomplete RBBB Abnormal ECG Electronically signed by : Ross Ham, 07/12/2020 13:59:56
--- NOTE | 2020-07-11 19:00 | XR_ITS ---
PROCEDURE: XR CHEST PORTABLE CLINICAL HISTORY: syncope Fall with injury and pain, syncope COMPARISON: CR CXR2V XR chest 2V from 03/16/2019 CR XR CHEST PORTABLE from 01/06/2020 CR XR CHEST PORTABLE from 05/29/[address] ABDOMEN PELVIS W CON from 06/14/2020 FINDINGS: There is cardiomegaly without failure. Right subclavian MediPort catheter is present with the tip in the region the SVC. There are old fractures of the right 4th 5th 6th and 7th ribs posteriorly. There is a bone plate present over lower cervical spine. No lobar consolidation or collapse. No evidence of pneumothorax. Suspect old right humeral neck fracture. IMPRESSION: Cardiomegaly Dictated b Wili Arriola MD 07/12/2020 06:07 Wili Arriola MD in [facility] 07/12/2020 06:07
--- NOTE | 2020-07-11 19:04 | XR_ITS ---
PROCEDURE: XR KNEE RT 3V CLINICAL INDICATION: injury Pain COMPARISON: CR [id number] XR knee RT 3V from 03/16/2019 FINDINGS: No fracture or dislocation. No lytic or blastic change. There is normal mineralization. Osteoarthritic changes involve the knee including all 3 compartments greater at the medial compartment. There is a faint curvilinear lucency along the lateral aspect of the medial tibial plateau and could be due to an osteochondral defect. IMPRESSION: Osteoarthritis with possible osteochondral defect of the medial tibial plateau otherwise negative Dictated b Wili Arriola MD 07/12/2020 06:04 Wili Arriola MD in [facility] 07/12/2020 06:04
[2020-07-11 19:06] LABS: Microscopic, Urine URINE MICROSCOPIC (MICROSCOPIC)
[2020-07-11 19:09] LABS: Basophils # 0.1 K/mm3 (0-0.2); Basophils % 0.6 % (0.1-2.0); Eosinophils # 0.3 K/mm3 (0.0-0.4); Eosinophils % 1.7 % (0.1-12.0); Hematocrit 44.1 % (37.0-47.0); Hemoglobin 14.5 g/dL (12.2-16.2); Lymphocytes # 4.8 K/mm3 (0.7-4.5); Lymphocytes % 26.6 % (10-50); Mean Corpuscular Hemoglobin 31.3 pg (27.0-31.2); Mean Corpuscular Volume 94.7 fl (81-99); Mean Platelet Volume 8.3 fl (7.4-10.4); Monocytes # 0.7 K/mm3 (0.1-1.0); Monocytes % 3.9 % (1.7-9.3); Neutrophils # 12.1 K/mm3 (1.8-7.8); Neutrophils % 67.3 % (37.0-80.0); Platelet Count 438 K/mm3 (142-424); Red Blood Count 4.65 M/mm3 (4.20-5.40); Red Cell Distribution Width 13.8 % (11.5-17.5)
[2020-07-11 19:13] LABS: Appearance,Urine CLEAR (Clear); Bilirubin,Urine Negative (Negative); Blood, Urine Negative (Negative); Color,Urine YELLOW (Yellow); Glucose,Urine (UA) Negative (Negative); Ketones,Urine Negative (Negative); Leukocyte Esterase,Urine Negative (Negative); Nitrate,Urine Negative (Negative); Protein,Urine Negative (Negative); Urobilinogen,Urine 0.2 EU/dl (0.2)
[2020-07-11 19:17] LABS: Alanine Aminotransferase 17 U/L (12-78); Albumin Level 4.1 g/dl (3.5-5.0); Albumin/Globulin Ratio 1.2 (1.1-1.8); Alkaline Phosphatase 162 U/L (38-126); Anion Gap 15.1 mEq/L (5-15); Aspartate Amino Transferase 23 U/L (14-36); Bilirubin,Total 0.5 mg/dl (0.2-1.3); Blood Urea Nitrogen 23 mg/dl (7-17); Calcium 8.7 mg/dl (8.4-10.2); Carbon Dioxide 29 mmol/L (22.0-30.0); Chloride 94 mmol/L (98-107); Creatinine Clearance Estimated 95 mL/min (50-200); Estimated Glomerular Filt Rate 51 ml/min (>60); GFR (African American) 62 ML/MIN (>60); Globulin 3.3 g/dL (1.3-3.2); Glucose 123 mg/dl (74-100); Potassium 4.1 mmoL/L (3.5-5.1); Sodium 134 mmol/L (136-145); Total Protein,Serum 7.4 g/dl (6.3-8.2)
--- NOTE | 2020-07-11 19:18 | PC.NURSE ---
received report on patient. patient requesting pain meds, however bp not sustaining above 95 systolic at this time. bolus infusing per previous shift.
[2020-07-11 19:21] LABS: Squamous Epithelial Cell,Urine Occasional #/hpf (0-5); WBC,Urine Occasional #/hpf (0-3)
[2020-07-11 19:22] LABS: MANUAL DIFFERENTIAL MANUAL DIFFERENTIAL (MANUAL DIFF)
[2020-07-11 19:31] LABS: Troponin I < 0.01 ng/ml (0.00-0.034)
[2020-07-11 19:34] LABS: Eosinophils % 3 % (0-3); Lymphocytes % 29 % (10-50); Monocytes % 5 % (2-9); Neutrophils % 63 % (42-76); Total Cells Counted 100
[2020-07-11 19:35] LABS: Platelet Estimate Slight Increase; RBC Morphology Normal
--- NOTE | 2020-07-11 19:46 | HMH.EDWEAK ---
ED Disposition Clinical Impression: Syncope and collapse determined by examination, Knee pain, acute, Hypotension, Leukocytosis, H/O steroid therapy, Right knee sprain Disposition: Admitted as Observation Condition on Discharge: Good Referrals: Sea So MD [Primary Care Provider] - - Critical Care Critical Care Time: No Attestation: On 07/11/20, the high probability of a clinically significant, sudden or life threatening deterioration of the following system(s) required my full and direct attention, intervention and personal management. The time I documented below is in addition to time spent performing reported procedures but includes the following listed in this critical care notation. Medical Decision Making - Medical Records Medical records reviewed: Yes: I reviewed the patient's medical records. - Delroy Inquiry Pt receiving controlled substance: No Vital Signs: 07/11/20 18:26 07/11/20 18:56 07/11/20 19:19 Temperature 99 F Temperature Source Oral Pulse Rate [Right] 87 78 81 Respiratory Rate 16 15 12 Blood Pressure [Right Arm] 98/49 L 94/60 L 83/47 L Blood Pressure Mean [Right Arm] 65 71 59 Blood Pressure Source [Right Arm] Manual Cuff/ Auscultation Blood Pressure Position [Right Arm] Sitting 02 Sat by Pulse Oximetry 98 99 98 Oxygen Delivery Method Nasal Cannula Oxygen Flow Rate (LPM) 2 - Lab Data Lab results reviewed: Yes: I reviewed the patient's lab results. Lab Results 07/11/20 18:35: Urine Color Yellow, Urine Appearance Clear, Urine pH 6.0, Ur Specific [place] 1.020, Urine Protein Negative, Urine Glucose (UA) Negative, Urine Ketones Negative, Urine Blood Negative, Urine Nitrate Negative, Urine Bilirubin Negative, Urine Urobilinogen 0.2, Ur Leukocyte Esterase Negative, Urine RBC 3-5, Urine WBC Occasional, Ur Squamous Epith Cells Occasional, Urine Bacteria None 07/11/20 18:54: WBC 18.0 H, RBC 4.65, Hgb 14.5, Hct 44.1, MCV 94.7, MCH 31.3 H, MCHC 33.0, RDW 13.8, Plt Count 438 H, MPV 8.3, Neut % (Auto) 67.3, Lymph % (Auto) 26.6, [place] % (Auto) 3.9, Eos % (Auto) 1.7, Baso % (Auto) 0.6, Neut # (Auto) 12.1 H, Lymph # (Auto) 4.8 H, [place] # (Auto) 0.7, Eos # (Auto) 0.3, Baso # (Auto) 0.1, Total Counted 100, Neutrophils % (Manual) 63, Lymphocytes % (Manual) 29, Monocytes % (Manual) 5, Eosinophils % (Manual) 3, Platelet Estimate Slight increase, RBC Morphology Normal 07/11/20 18:54: Sodium 134 L, Potassium 4.1, Chloride 94 L, Carbon Dioxide 29, Anion Gap 15.1 H, BUN 23 H, Creatinine 1.10 H, Estimated Creat Clear 95, Estimated GFR 51 L, Est GFR ( Amer) 62, Glucose 123 H, Calcium 8.7, Total Bilirubin 0.5, AST 23, ALT 17, Alkaline Phosphatase 162 H, Troponin I < 0.01, Total Protein 7.4 D, Albumin 4.1, Globulin 3.3 H, Albumin/Globulin Ratio 1.2 Result diagrams: 07/11/20 18:54 07/11/20 18:54 Orders (Tests/Meds): ED MEDICATIONS Generic Name Dose Route Start Last Admin Trade Name Freq PRN Reason Stop Dose Admin Sodium Chloride 1,000 mls @ 999 mls/hr 07/11/20 19:15 07/11/20 19:44 Sod Chlor 0.9% 1000ml Bag IV 07/11/20 20:15 999 mls/hr .[id number] CRISTOPHER Administration Discontinued Medications Generic Name Dose Route Start Last Admin Trade Name Freq PRN Reason Stop Dose Admin Morphine Sulfate 4 mg 07/11/20 19:01 Morphine 4mg/Ml Syringe IV 07/11/20 19:02 ONCE ONE Ondansetron HCl 4 mg 07/11/20 19:01 Zofran 4mg/2ml Vial IV 07/11/20 19:02 ONCE ONE ORDERS Category Date Time Status CT head/brain wo con Stat Cat Scan 07/11/20 19:00 Taken Knee XR right 3 views [XR knee RT 3V] Stat Exams 07/11/20 19:04 Taken XR chest portable Stat Exams 07/11/20 19:00 Taken Full Resp Panel (COVID)(INPT) Routine Lab 07/11/20 19:57 Ordered Troponin I Q3H Lab 07/11/20 22:15 Ordered Troponin I Q3H Lab 07/12/20 01:15 Ordered ECG Request by /Berna Stat Y 07/11/20 19:00 Ordered Medical Decision Narrative: I spoke to Dr. So he agreed to go ahead admit th
[2020-07-11 20:17] LABS: Adenovirus,PCR Not Detected (NotDetected); Bordetella Pertussis Not Detected (NotDetected); Chlamydophila Pneumoniae, PCR Not Detected (NotDetected); Coronavirus 19, PCR Not Detected (NotDetected); Coronavirus 229E Not Detected (NotDetected); Coronavirus NL63 Not Detected (NotDetected); Coronavirus OC43 Not Detected (NotDetected); Coronovirus HKU1,PCR Not Detected (NotDetected); Human Metapneumovirus Not Detected (NotDetected); Influenza A, PCR Not Detected (NotDetected); Influenza AH1, 2009 Not Detected (NotDetected); Influenza AH1, PCR Not Detected (NotDetected); Influenza AH3,PCR Not Detected (NotDetected); Influenza B, PCR Not Detected (NotDetected); Mycoplasma Pneumoniae, PCR Not Detected (NotDetected); Parainfluenza 1, PCR Not Detected (NotDetected); Parainfluenza 2, PCR Not Detected (NotDetected); Parainfluenza 3, PCR Not Detected (NotDetected); Parainfluenza 4, PCR Not Detected (NotDetected); Respiratory Syncytial Virus Not Detected (NotDetected); Rhinovirus/Enterovirus Not Detected (NotDetected)
--- NOTE | 2020-07-11 21:59 | PC.NURSE ---
PT ARRIVED TO THE FLOOR VIA W/C FROM ED AT 2158.
[2020-07-11 23:04] LABS: Troponin I < 0.01 ng/ml (0.00-0.034)
[2020-07-12] VITALS: PULSE 70
[2020-07-12 01:13] LABS: POC Glucose,Bedside 213 (70-110)
[2020-07-12 01:42] LABS: Troponin I < 0.01 ng/ml (0.00-0.034)
[2020-07-12 04:00] VITALS: BP 101/52; PULSE 66; PULSE 70; RESP 16; TEMP 36.6; O2SAT 97
[2020-07-12 05:46] VITALS: BMI 39.4
[2020-07-12 06:13] LABS: Basophils # 0.1 K/mm3 (0-0.2); Basophils % 0.8 % (0.1-2.0); Eosinophils # 0.3 K/mm3 (0.0-0.4); Eosinophils % 2.5 % (0.1-12.0); Hematocrit 38.7 % (37.0-47.0); Lymphocytes # 3.8 K/mm3 (0.7-4.5); Lymphocytes % 33.5 % (10-50); Mean Corpuscular HGB Conc 32.6 g/dL (31.8-35.4); Mean Corpuscular Volume 95.1 fl (81-99); Mean Platelet Volume 8.2 fl (7.4-10.4); Monocytes # 0.5 K/mm3 (0.1-1.0); Monocytes % 4.7 % (1.7-9.3); Neutrophils # 6.7 K/mm3 (1.8-7.8); Neutrophils % 58.6 % (37.0-80.0); Platelet Count 358 K/mm3 (142-424); Red Blood Count 4.07 M/mm3 (4.20-5.40); Red Cell Distribution Width 13.7 % (11.5-17.5); White Blood Count 11.4 K/mm3 (4.8-10.8)
--- NOTE | 2020-07-12 06:13 | PC.NURSE ---
Anika SANCHEZ NOTIFIED OF CONSULT.
[2020-07-12 06:29] LABS: Chloride 107 mmol/L (98-107); Potassium 4.3 mmoL/L (3.5-5.1); Sodium 136 mmol/L (136-145)
[2020-07-12 06:32] LABS: Alanine Aminotransferase 13 U/L (12-78); Albumin/Globulin Ratio 1.1 (1.1-1.8); Alkaline Phosphatase 109 U/L (38-126); Anion Gap 7.3 mEq/L (5-15); Aspartate Amino Transferase 31 U/L (14-36); Bilirubin,Total 0.5 mg/dl (0.2-1.3); Blood Urea Nitrogen 17 mg/dl (7-17); Calcium 8.1 mg/dl (8.4-10.2); Carbon Dioxide 26 mmol/L (22.0-30.0); Creatinine Clearance Estimated 125 mL/min (50-200); Estimated Glomerular Filt Rate 73 ml/min (>60); GFR (African American) 89 ML/MIN (>60); Globulin 2.8 g/dL (1.3-3.2); Glucose 106 mg/dl (74-100); Total Protein,Serum 5.8 g/dl (6.3-8.2)
[2020-07-12 07:06] LABS: Hemoglobin 12.7 g/dL (12.2-16.2)
--- NOTE | 2020-07-12 07:28 | HMH.PHAVTE ---
[facility] Pharm[facility] VTE Monitoring - Patient Demographics Admission date: 07/11/20 Report Date: 07/12/20 Time: 07:28 Allergies/Adverse Reactions: Patient Allergies codeine [CODEINE] Allergy (Intermediate, Verified 07/06/20 14:38) N/V ketorolac [KETOROLAC] Allergy (Intermediate, Verified 07/06/20 14:38) Hives meperidine [MEPERIDINE] Allergy (Intermediate, Verified 07/06/20 14:38) Hives tramadol [TRAMADOL] Allergy (Intermediate, Verified 07/06/20 14:38) Hives verapamil Allergy (Mild, Verified 07/12/20 07:18) Unknown allergy reaction ciprofloxacin Adverse Reaction (Severe, Verified 07/06/20 14:38) Interacts with tila Height: 1.63 m Weight: 104.922 kg Patient Problems: Current Active Problems Syncope and collapse determined by examination (Acute) Knee pain, acute (Acute) Hypotension (Acute) Leucocytosis (Acute) H/O steroid therapy (Acute) Right knee sprain (Acute) - VTE Risk Labs: VTE Related Lab Results Hgb 12.7 g/dL (12.2-16.2) D 07/12/20 05:55 Hct 38.7 % (37.0-47.0) 07/12/20 05:55 Plt Count 358 K/mm3 (142-424) 07/12/20 05:55 BUN 17 mg/dl (7-17) D 07/12/20 05:55 Creatinine 0.80 mg/dl (0.52-1.04) D 07/12/20 05:55 Estimated Creat Clear 125 mL/min (50-200) 07/12/20 05:55 VTE Score: 8 VTE Risk Level: Moderate Risk - Prophylaxis VTE Prophylaxis Ordered?: Yes Types of VTE Prophylaxis: TEDS Knee High Location of Applied Device: Bilateral Lower Extremeties - VTE Diagnosis Confirmed Treatment or plan recommended: Continue Current Treatment
--- NOTE | 2020-07-12 07:34 | HMH.CNCARD ---
History of Present Illness Consult date: 07/12/20 Requesting physician: Sea So Chief complaint: Syncope Additional Medical History:: 1. Coronary disease A. Hospitalization for chest pain, 01/2018 B. Abnormal stress test indicative of reversible ischemia anterior and inferior areas C. Cardiac catheterization, 01/2018, 2 CARLOS to LAD, 1 CARLOS to RCA, normal LVEF D. Cardiac cath, 01/2018, patent stents. LVEF 65% with LVEDP of 20 mm Hg E. [facility], 01/2020, 1 CARLOS to ostial Left main, 1 CARLOS to proximal LAD, normal EF, LVEDP 30-35 mm Hg F. [facility], 05/2020, Diffuse small vessel coronary arteries consistent with hypertensive vasculopathy. Patent stents. EF 75-80%, LVEDP of 18 mm Hg. 2. Hypertension A. Echo, 01/2018 2D 1. Left atrium is mildly enlarged, left ventricle is normal size, mild concentric left ventricular hypertrophy, visually estimated ejection fraction 55% with no obvious regional wall motion abnormality. 2. The right atrium and right ventricle are normal size and contractility. 3. The aortic valve is minimally thickened and fibrosed. 4. The mitral and tricuspid valve leaflets are minimally thickened. 5. The pulmonic valve is poorly visualized. 6. No significant pericardial effusion noted. DOPPLER INTERROGATION: Doppler interrogation of the aortic, mitral and tricuspid valvular presence of mild mitral and tricuspid regurgitation, tricuspid and jet velocity is insufficient for calculation of the right ventricular systolic pressure, grade 1 diastolic dysfunction seen with tissue Doppler evidence of raised left atrial pressure. CONCLUSION: 1. Mildly enlarged left atrium, normal left ventricular size, mild concentric left ventricular hypertrophy, visually estimated ejection fraction 55% with no obvious regional wall motion abnormality, grade 1 diastolic dysfunction seen with tissue Doppler evidence of raised left atrial pressure. 2. Mild mitral and tricuspid regurgitation 3. No significant pericardial effusion noted. 3. History of pancreatitis A. Indwelling port for many years 4. Tobacco use, long history, still smoking A. COPD B. FLACO 5. Obesity 6. History of atrial fibrillation, on Eliquis therapy A. History of CVA in remote past 7. History of anxiety and depression, stemming from the of her 's (1 from an GA the second 1 from intestinal issues leading to sepsis )and her 20-year-old son from an overdose in 2003 A. Patient does see mental health regularly History of present illness: 59-year-old white female with known history of coronary artery disease presented to the emergency department after talking with Dr. Sierra on the phone for a feeling of impending doom along with 2 episodes of near syncope/syncope in the last couple of days. Patient relates episodes of passing out have occurred after getting up to walk across the room to either go to the kitchen or change the TV station. She denies any nausea, vomiting or diarrhea recently but has decreased her appetite due to the heat. Patient does relate some chest heaviness prior to the episodes of passing out but states it does not feel like her angina symptoms in the past. Patient was admitted through the ER for further evaluation. Telemetry has revealed no arrhythmias or significant bradycardia. Troponins have returned within normal limits x3. Patient recently did have a cardiac catheterization 2 months ago showing patent coronary stents with hypertensive heart disease at which time she was placed on additional antihypertensive medication (diltiazem for her hypertensive heart disease). Systolic blood pressure overnight has been in the 80 to 90 mmHg range and only with IV fluids has increased to greater than 100 this morning. EKG is sinus without acute changes. [facility] History Medical History: Reports:: Arrhythmia, Atrial Fibrillation, Congestive Heart Failure, Coronary Artery Disease, Deep Vein Thrombosis, Gastroesophageal Reflux Disease
[2020-07-12 08:00] VITALS: BP 121/71; PULSE 63; PULSE 70; RESP 17; TEMP 36.7; O2SAT 96
--- NOTE | 2020-07-12 08:00 | CA_ITS ---
APPROVED REPORT [employer] Chief: JOSIE Laterality: Bilateral Study Quality: Good Indications: syncopal/tia episode Doppler Spectral Velocity Analysis Amanda (R) 80.10/25.00 cm/s dICA (L) 80.60/30.20 cm/s pICA (R) 46.30/15.00 cm/s Amanda (L) 73.60/25.40 cm/s pICA (L) 57.30/20.90 cm/s dCCA (R) 69.20/20.30 cm/s pCCA (R) 89.70/15.70 cm/s dCCA (L) 96.40/20.60 cm/s pCCA (L) 59.10/14.10 cm/s Vert (R) 32.70/5.20 cm/s ICA/CCA 1.20 Vert (L) 40.50/17.10 cm/s ICA/CCA 0.80 Findings Duplex evaluation demonstrates stenosis of the right proximal internal carotid artery <20% with PSV <140 cm/sec, EDV <100 cm/sec, and IC/CC Ratio <4.0.Duplex evaluation demonstrates stenosis of the left proximal internal carotid artery <20% with PSV <140 cm/sec, EDV <100 cm/sec, and IC/CC Ratio <4.0. Technically difficult exam secondary to breathing and anatomy unable to visualize right distal ICA.Antegrade flow seen bilateral vertebral arteries. Conclusion Duplex evaluation demonstrates stenosis of the right proximal internal carotid artery <20% with PSV <140 cm/sec, EDV <100 cm/sec, and IC/CC Ratio <4.0.Duplex evaluation demonstrates stenosis of the left proximal internal carotid artery <20% with PSV <140 cm/sec, EDV <100 cm/sec, and IC/CC Ratio <4.0. Technically difficult exam secondary to breathing and anatomy unable to visualize right distal ICA.Antegrade flow seen bilateral vertebral arteries. Electronically signed by : Wili Arriola MD 07/12/2020 16:16:21
--- NOTE | 2020-07-12 08:22 | CA_ITS ---
APPROVED REPORT EXAM: Comprehensive 2D, Doppler, and color-flow Echocardiogram Educational Programming Director: Ruma Cleary RVT Ht: 5 ft 4 in Wt: 231lbs BSA: 2.08 BP: 101/52 mmHg Indications: syncope,cad,a-fib,chf,gerd,htn,obesity,hld,smoker 2D Dimensions LVOT 2.08 cm (M/F) 1.5-2.5 M-Mode Dimensions RVDd 3.04 cm (0.9-2.6) LVDd 5.45 cm (3.5-5.7) LVDs 3.85 cm (3.5-5.7) IVSd 0.97 cm (0.6-1.1) PWd 1.14 cm (0.6-1.1) EF (Teich) 55.70% FS 29.40% EDV (Teich) 144.40 mL ESV (Teich) 63.90 mL LV Diastology E/A Ratio 0.69 Mitral Valve MV A Velocity 67.00 (40-130 cm/s) Left Ventricle Left atrium is mildly enlarged, left ventricle is normal size, mild concentric left ventricular hypertrophy, visually estimated ejection fraction 55% with no regional wall motion abnormality. Shunt seen without tissue Doppler evidence of raise left atrial pressure. Right Ventricle Right atrium and right ventricle are mildly enlarged with normal contractility. Aortic Valve Aortic valve is thickened and calcified leaflet chordae display good mobility, there is no aortic stenosis or aortic insufficiency. Mitral Valve Mitral valve is grossly normal, there is mild mitral regurgitation. Tricuspid Valve Tricuspid valve is grossly normal, there is mild tricuspid regurgitation, tricuspid regurgitation jet velocity is inadequate for calculation of the right ventricular systolic pressure. Pulmonic Valve Pulmonic valve is poorly visualized. Great Vessels Aortic root is normal size. Pericardium No significant pericardial effusion noted. Conclusion 1. Mild biatrial enlargement, normal left ventricular size, mild concentric left ventricular hypertrophy, visually estimated ejection fraction 55% with no regional wall motion abnormality, grade 1 diastolic dysfunction seen without tissue Doppler evidence of raise left atrial pressure. 2. Mildly enlarged right ventricle with normal contractility. 3. Mild mitral and tricuspid regurgitation. 4. No significant pericardial effusion noted. Electronically signed by : Lamont Bull, 07/13/2020 11:46:16
--- NOTE | 2020-07-12 09:41 | PC.NURSE ---
Addendum entered by Chacha Morin RN 07/12/20 10:08: LATE ENTRY FOR EVENTS THAT OCCURRED FROM [id number], 07/11-07/12. Original Note: A&OX3. EPISODE OF LETHARGY NOTED DURING ADMISSION, MD MADE AWARE. LUNGS NOTED CLEAR T/O AUSCULTATION. 2LNC TOLERATED WELL, THIS IS PT'S BASELINE. PORT NOTED TO RIGHT UPPER CHEST WALL CDI, NO S/S OF INFECTION PATENT WITH BLOOD RETURN NOTED THIS SHIFT. RIGHT KNEE PAIN REPORTED THIS SHIFT. ON ADMISSION PT REPORTED RIGHT KNEE PAIN TOLERABLE WITH USE OF ICE PACK. PT REFUSED TO ELEVATE RIGHT KNEE/RLE OF PILLOW. TOWARDS END OF SHIFT PT REPORTS I NEED SOMETHING ELSE TO HELP WITH THE PAIN. MD SENIOR TRAINER MADE AWARE OF PT'S C/O RIGHT KNEE PAIN WITH NO MEDICATIONS LISTED ON JAN FOR PAIN, PT REQUESTED EVEN IF IT IS JUST TYLENOL. NO NEW ORDERS GIVEN. PULSES +2, CAP REFILL <3SEC. NSR NOTED PER CARDIAC MOINTOR. VSS. WILL CONTINUE TO MONITOR.
[2020-07-12 11:36] VITALS: BP 124/76; PULSE 72; RESP 18; TEMP 36.7; O2SAT 97
[2020-07-12 12:00] VITALS: PULSE 80
--- NOTE | 2020-07-12 13:59 | HMH.HPDC ---
General - General Admission date:: 07/11/20 Discharge date: 07/12/20 *Admission Date: 07/11/20 *Chief complaint: Syncope *History of present illness: 59-year-old female patient with known history of coronary artery disease presented to the emergency department after 2 episodes of near syncope in the last couple days. She reports standing in her kitchen and my entire body just gave out , she reports she fell and she landed on her buttocks at that time, she denies any pain in her buttocks, coccyx, or lower back she denies losing consciousness during this episode. She reports the same thing happened the next day in the living room and she fell forward landing on her, after which she reports her right kneecap is extremely painful. She is adamant she did not lose consciousness during either episode. She does report she had some chest heaviness before the last episode and she does have an extensive cardiac history with a cardiac catheterization 2 months ago that revealed patent coronary stents, hypertensive heart disease and was placed on additional antihypertensive medication. Blood pressure during the night was 80-90 systolically, with IV fluids systolic greater than 100 this morning EKG revealed sinus rhythm without acute changes [facility] History Medical History: Reports:: Arrhythmia, Atrial Fibrillation, Congestive Heart Failure, Coronary Artery Disease, Deep Vein Thrombosis, Gastroesophageal Reflux Disease(GERD), Hyperlipidemia, Hypertension, Myocardial Infarction, Peripheral Artery Disease Denies:: Cancer, Diabetes Mellitus Type 1, Diabetes Mellitus Type 2, Internal Pacemaker, MRSA *Have you ever received a pneumonia vaccine?: Yes *Have you received a flu vaccine this season?: Yes Other Medical History: Reports: Hoarseness, Other (pancreatitis) Laterality Cases: Bilateral: Tonsillectomy Other Surgeries: Yes: No Previous Surgery, Appendectomy, Cardiac Catheterization, Cholecystectomy, Colonoscopy, Coronary Stent, EGD, Hysterectomy-Total, Tubal Ligation, Other. No: Pacemaker Amputation: No Fractures: Yes - *Social History Last grade of school completed: Advanced degree Smoking Status: Current every day smoker Tobacco Type: cigarettes # Packs/Day (cigarettes): 1 #Yrs smoked (if former smoker): 40 Alcohol Intake: never Alcohol Intake Frequency:: other Substance Use Type: denies use *Occupational Status:: disabled Housing: other Household Members: significant other, children *Travel in the last 8 weeks: None Family Hx:: No significant family history Review of Systems - Review of Systems Review of systems:: pertinent systems reviewed and negative unless documented below - Constitutional Denies body ache(s), Denies fever(s) - Eyes Denies blurry vision, Denies change in vision - ENT Denies abnormal hearing, Denies dizziness - *Cardiovascular Reports chest pain, Reports shortness of breath with activity - *Respiratory Reports shortness of breath with activity, Denies cough - *Gastrointestinal Denies abdominal pain, Denies change in bowel habits - *Genitourinary Denies painful urination - *Musculoskeletal Reports abnormal walking, Reports joint pain - Integumentary/Breasts Denies change in skin color - *Neurologic Reports dizziness, Reports weakness - Endocrine Denies cold intolerance - Hematologic/Lymphatic Denies easy bleeding, Denies easy bruising - Allergic/Immunologic Denies lip swelling, Denies tongue swelling Exam Vital signs and Labs for Last 24 Hours: Temp Pulse Resp BP Pulse Ox 98.1 F 72 18 124/76 97 07/12/20 11:36 07/12/20 11:36 07/12/20 11:36 07/12/20 11:36 07/12/20 11:36 Laboratory Results - last 24 hr 07/11/20 18:35: Urine Color Yellow, Urine Appearance Clear, Urine pH 6.0, Ur Specific [place] 1.020, Urine Protein Negative, Urine Glucose (UA) Negative, Urine Ketones Negative, Urine Blood Negative, Urine Nitrate Negative, Urine Bilirubin Negative, Urine Urobilinogen
[2020-07-12 14:26] VITALS: BMI 39.5
[2020-07-12 16:00] VITALS: BP 126/76; PULSE 70; PULSE 80; RESP 16; TEMP 36.8; O2SAT 98
--- NOTE | 2020-07-12 17:53 | PC.NURSE ---
THIS RN PROVIDED D/C INSTRUCTIONS TO PATIENT AND SPOUSE. THIS RN REMOVED PORT LINE AND FLUSHED WITH HEPARIN. PATIENT STATED THAT THE AREA IS HARD AND IT HAS NEVER BEEN. THIS RN STATED THAT PORTS ARE HARD ON THE SURFACE. PATIENT STATED HER IS NOT. THIS RN HAD LAITH WEBBER ASSESS PORT AND STATED IT LOOK GOOD. PATIENT VERBALIZED AN OKAY. NO OTHER CONCERNS AT THIS TIME.
--- NOTE | 2020-07-15 13:20 | PC.NURSE ---
Patient called requesting COVID-19 results; name and was verified and negative results told to patient.
== END 2020-07-12 17:00 | disposition home or self-care (01) ==
LOC: ER 19:59 → 2ND 20:22
PROVIDERS: Admitting Provider Emergency Medicine; Emergency Provider Family Medicine; PCP Emergency Medicine; Visit Provider Emergency Medicine
DX: I95.1 Orthostatic hypotension (principal); I48.91 Unspecified atrial fibrillation; I10 Essential (primary) hypertension; R55 Syncope and collapse; I50.9 Heart failure, unspecified; I25.10 Atherosclerotic heart disease of native coronary artery without angina pectoris; I25.2 Old myocardial infarction; Z95.5 Presence of coronary angioplasty implant and graft; Z72.0 Tobacco use; S83.91XA Sprain of unspecified site of right knee, initial encounter; W01.0XXA Fall on same level from slipping, tripping and stumbling without subsequent striking against object, initial encounter; Z91.81 History of falling; Y92.019 Unspecified place in single-family (private) house as the place of occurrence of the external cause
CPT/HCPCS: 70450; 71045; 73562; 80053; 81001; 82962; 84484; 85007; 85025; 87581; 87633; 87798; 93005; 93306; 93880; 96365; 96375; 99284; G0378; J1642

== ENCOUNTER → 2020-07-17 10:35 | Outpatient (CLI) | payer MEDICARE, MEDICAID, SELFPAY | PROVIDERS: PCP Emergency Medicine; Visit Provider Nurse Practitioner Family | DX: I20.9 Angina pectoris, unspecified; R06.00 Dyspnea, unspecified; E78.2 Mixed hyperlipidemia; I10 Essential (primary) hypertension; I48.91 Unspecified atrial fibrillation; J44.9 Chronic obstructive pulmonary disease, unspecified; Z72.0 Tobacco use; Z95.5 Presence of coronary angioplasty implant and graft | CPT/HCPCS: 93270 ==

== ENCOUNTER 2020-07-19 19:41 | Emergency (ER) | payer MEDICARE, MEDICAID, SELFPAY ==
[2020-07-19 19:42] VITALS: BP 124/79; PULSE 80; RESP 16; TEMP 37.2; O2SAT 96; BMI 36.6
--- NOTE | 2020-07-19 20:21 | HMH.EDGENADL ---
ED Disposition Clinical Impression: Fracture of femoral condyle, right, closed Qualifiers: Encounter type: initial encounter Fracture alignment: nondisplaced Qualified Code(s): S72.414A - Nondisplaced unspecified condyle fracture of lower end of right femur, initial encounter for closed fracture Disposition: Home, Self-Care Condition on Discharge: Good Instructions: DI for Acute Pain -- Adult Additional Instructions: call pcp and ortho in am for follow up Referrals: Sea So MD [Primary Care Provider] - Jennifer Salcido MD [Physician] - - Critical Care Critical Care Time: No Attestation: On 07/19/20, the high probability of a clinically significant, sudden or life threatening deterioration of the following system(s) required my full and direct attention, intervention and personal management. The time I documented below is in addition to time spent performing reported procedures but includes the following listed in this critical care notation. Medical Decision Making - Medical Records Medical records reviewed: Yes: I reviewed the patient's medical records. - Delroy Inquiry Pt receiving controlled substance: No Vital Signs: 07/19/20 19:42 07/19/20 21:02 Temperature 98.9 F Temperature Source Oral Pulse Rate [Left Radial] 80 78 Respiratory Rate 16 16 Blood Pressure [Right Arm] 124/79 140/97 H Blood Pressure Mean [Right Arm] 94 111 Blood Pressure Source [Right Arm] Automatic Cuff Automatic Cuff Blood Pressure Position [Right Arm] Sitting 02 Sat by Pulse Oximetry 96 99 Oxygen Delivery Method Room Air Room Air - Lab Data Lab results reviewed: Yes: I reviewed the patient's lab results. Orders (Tests/Meds): ORDERS Category Date Time Status CT knee RT wo con Stat Cat Scan 07/19/20 20:27 Taken - CT Data CT Scan: Other (knee) Time Received: 21:[address] Reviewed: Yes: I have viewed the radiologist's interpretation Preliminary Findings: Abnormal (incomplete fx medial femoral condyle ) General Adult HPI - General Chief complaint: PAIN Stated complaint: Right knee pain Time Seen by Provider: 07/19/20 20:00 Mode of Arrival: Wheelchair Source of Information: Patient, Spouse, Medical Record Limitations: Physical Limitations Description of Symptoms (Recalled from ER Triage Doc. by RN): pt stated she was admitted on 07/11 to [facility] after falling and injuring her right knee. pt stated she has a follow up appt. next week with her PCP but her right knee is hurting her too bad to wait. pt stated she has tried taking NSAIDS and the oxycodone she was given but nothing has helped the pain. - History of Present Illness HPI narrative: pt with injury to rt knee and was admitted for low bp and nearsyncopal episode - xray showed osteochrondral defect - - has pending appt with ortho - she has knee immbolizer and report pain with wt bearing - and mov - was seen in the pcp office and given pain meds - she has no pain meds at this time - no new injury Onset (ago): day(s) Location: lower extremity Severity: moderate Quality: constant Consistency: constant Exacerbating factors: movement Associated symptoms: denies other symptoms Treatments prior to arrival: splint - Related Data Home Medications Medication Instructions Recorded Confirmed Atorvastatin Calcium [Lipitor 40mg 40 mg PO HS 06/22/20 07/17/20 Tab] Metoprolol Succinate [Kapspargo 12.5 mg PO DAILY 06/22/20 07/17/20 Sprinkle] Montelukast Sodium 10 mg PO DAILY 06/22/20 07/17/20 Omeprazole Magnesium [Prilosec Otc 20 mg PO DAILY 06/22/20 07/17/20 20mg Tab] Ticagrelor [Brilinta 90mg 90 mg PO BID 06/22/20 07/17/20 Tablet] ALPRAZolam [Xanax 1mg tab] 1 mg PO TIDP PRN 07/12/20 07/17/20 Albuterol Sulfate [Proventil Hfa] 1 puff INHALATION Q4HP PRN 07/12/20 07/17/20 furosemide 40 mg tablet 20 mg PO DAILY tab 07/17/20 07/17/20 promethazine 25 mg tablet 25 mg PO Q6H PRN tab 07/17/20 07/17/20 spironolactone 50 mg tablet 25 mg PO
--- NOTE | 2020-07-19 20:27 | CT_ITS ---
PROCEDURE: CT KNEE RT WO CON CLINICAL HISTORY: pain - injury Posttraumatic pain, persistent pain COMPARISON: CR XR KNEE RT 3V from 07/11/2020 TECHNIQUE: Axial images obtained with sagittal and coronal reformats. All CT scans at the facility use one or more dose reduction, viz: automated exposure control, ma/kV adjustment per patient size (including targeted exams where dose is matched to indication, i.e. head), or iterative reconstruction technique. FINDINGS: On the reformatted coronal images there is suggestion of a hairline fracture involving the medial femoral condyle posteriorly. This is not well delineated on the axial images and may be due to artifact. MRI may confirm the presence of a fracture with some bone marrow edema if clinically desired. There are tricompartmental osteoarthritic changes with osteophyte formation. There is a small knee joint effusion IMPRESSION: There is a possible nondisplaced fracture of the medial femoral condyle posteriorly with associated knee joint effusion and tricompartmental osteoarthritis. Consider MRI to confirm the presence of an acute fracture if clinically desired. Dictated by: Wili Arriola MD 07/20/2020 09:35 Wili Arriola MD in OV 07/20/2020 09:35
[2020-07-19 21:02] VITALS: BP 140/97; PULSE 78; RESP 16; O2SAT 99
--- NOTE | 2020-07-19 21:28 | PC.NURSE ---
speaking with Ortho
[2020-07-19 21:53] VITALS: BP 137/97; PULSE 82; RESP 16; TEMP 37.1; O2SAT 98
== END 2020-07-19 22:00 | disposition home or self-care (01) ==
PROVIDERS: Emergency Provider Emergency Medicine; PCP Emergency Medicine
DX: S72.414A Nondisplaced unspecified condyle fracture of lower end of right femur, initial encounter for closed fracture (principal); I25.10 Atherosclerotic heart disease of native coronary artery without angina pectoris; K21.9 Gastro-esophageal reflux disease without esophagitis; I48.20 Chronic atrial fibrillation, unspecified; I10 Essential (primary) hypertension; E78.5 Hyperlipidemia, unspecified; Z79.899 Other long term (current) drug therapy; I25.2 Old myocardial infarction; Z90.09 Acquired absence of other part of head and neck; Z88.8 Allergy status to other drugs, medicaments and biological substances; F17.210 Nicotine dependence, cigarettes, uncomplicated; Z90.79 Acquired absence of other genital organ(s); Z90.49 Acquired absence of other specified parts of digestive tract
CPT/HCPCS: 73700; 99282

== ENCOUNTER 2020-08-03 23:11 | Emergency (ER) | payer MEDICARE, MEDICAID, SELFPAY ==
--- NOTE | 2020-08-03 23:06 | ECG_ITS ---
APPROVED REPORT Exam: Resting ECG HR:107 bpm ECG Measurements Heart Rate 107 AXES QRSd 74 QRS 50 QT 358 T 70 QTc 477 <Conclusion> Atrial fibrillation with rapid ventricular response Abnormal ECG Electronically signed by : Oskar Eugene, 08/04/2020 06:31:01
[2020-08-03 23:14] VITALS: BP 121/90; PULSE 74; RESP 16; TEMP 36.9; O2SAT 93; BMI 36.6
--- NOTE | 2020-08-03 23:14 | XR_ITS ---
PROCEDURE: XR CHEST PORTABLE CLINICAL HISTORY: soa Short of breath COMPARISON: CR XR CHEST PORTABLE from 01/06/2020 CR XR CHEST PORTABLE from 05/29/2020 CR XR CHEST PORTABLE from 07/11/2020 FINDINGS: There is cardiomegaly without failure. There is a right subclavian MediPort catheter with the tip in the region the SVC. The lung bases are under penetrated. No definite lobar consolidation or collapse. Bone plate is present over the lower cervical spine IMPRESSION: Cardiomegaly. No change with no acute finding Dictated by: Wili Arriola MD 08/04/2020 05:34 Wili Arriola MD in OV 08/04/2020 05:34
[2020-08-03 23:24] VITALS: BP 125/90; PULSE 109; RESP 18; O2SAT 92
[2020-08-03 23:28] LABS: Basophils % 0.4 % (0.1-2.0); Eosinophils # 0.4 K/mm3 (0.0-0.4); Eosinophils % 3.5 % (0.1-12.0); Hematocrit 36.9 % (37.0-47.0); Hemoglobin 12.1 g/dL (12.2-16.2); Lymphocytes # 3.5 K/mm3 (0.7-4.5); Lymphocytes % 34.8 % (10-50); Mean Corpuscular HGB Conc 32.7 g/dL (31.8-35.4); Mean Corpuscular Volume 94.9 fl (81-99); Mean Platelet Volume 8.2 fl (7.4-10.4); Monocytes # 0.5 K/mm3 (0.1-1.0); Monocytes % 4.8 % (1.7-9.3); Neutrophils # 5.7 K/mm3 (1.8-7.8); Neutrophils % 56.6 % (37.0-80.0); Platelet Count 348 K/mm3 (142-424); Red Cell Distribution Width 14.1 % (11.5-17.5); White Blood Count 10.1 K/mm3 (4.8-10.8)
[2020-08-03 23:32] LABS: Chloride 95 mmol/L (98-107)
[2020-08-03 23:33] LABS: Potassium 3.4 mmoL/L (3.5-5.1); Sodium 138 mmol/L (136-145)
[2020-08-03 23:35] LABS: Amylase 49 U/L (30-110)
[2020-08-03 23:36] LABS: Anion Gap 11.4 mEq/L (5-15); Blood Urea Nitrogen 15 mg/dl (7-17); Calcium 8.5 mg/dl (8.4-10.2); Carbon Dioxide 35 mmol/L (22.0-30.0); Creatinine Clearance Estimated 90 mL/min (50-200); Estimated Glomerular Filt Rate 51 ml/min (>60); GFR (African American) 62 ML/MIN (>60); Glucose 173 mg/dl (74-100); Lipase 41 U/L (23-300)
--- NOTE | 2020-08-03 23:36 | HMH.EDGENADL ---
ED Disposition Clinical Impression: Pancreatitis, chronic Qualifiers: Pancreatitis type: unspecified pancreatitis type Qualified Code(s): K86.1 - Other chronic pancreatitis Disposition: Home, Self-Care Condition on Discharge: Good Additional Instructions: Please follow-up tomorrow in [place] as scheduled. Take meds as needed for pain. Do not operate heavy machinery or drink alcohol taking medication. Immediately return with any new or worsening symptoms. Referrals: Provider,Referral, MD [Primary Care Provider] - - Critical Care Critical Care Time: No Attestation: On 08/03/20, the high probability of a clinically significant, sudden or life threatening deterioration of the following system(s) required my full and direct attention, intervention and personal management. The time I documented below is in addition to time spent performing reported procedures but includes the following listed in this critical care notation. Medical Decision Making - Medical Records Medical records reviewed: Yes: I reviewed the patient's medical records. - Delroy Inquiry Pt receiving controlled substance: Yes (morphine IV, dilaudid IV) Delroy was queried for this patient: No (Urgent treatment in ER for pain control) Reason not queried -: Delroy login issues Risks and benefits of using a controlled substance: were discussed with pt by me Comment: Unable to check Delroy due to technical difficulties Vital Signs: 08/03/20 23:14 08/03/20 23:24 08/04/20 00:09 Temperature 98.5 F Temperature Source Oral Pulse Rate [Right] 74 109 H 96 H Respiratory Rate 16 18 18 Blood Pressure [Right Arm] 121/90 125/90 106/80 L Blood Pressure Mean [Right Arm] 100 101 88 Blood Pressure Source [Right Arm] Automatic Cuff Blood Pressure Position [Right Arm] Sitting 02 Sat by Pulse Oximetry 93 L 92 L 91 L Oxygen Delivery Method Nasal Cannula Nasal Cannula Nasal Cannula Oxygen Flow Rate (LPM) 4 4 08/04/20 00:28 08/04/20 01:02 Temperature Temperature Source Pulse Rate [Right] 102 H 115 H Respiratory Rate 18 18 Blood Pressure [Right Arm] 124/85 124/94 H Blood Pressure Mean [Right Arm] 98 104 Blood Pressure Source [Right Arm] Blood Pressure Position [Right Arm] 02 Sat by Pulse Oximetry 94 L 90 L Oxygen Delivery Method Nasal Cannula Nasal Cannula Oxygen Flow Rate (LPM) 4 4 - Lab Data Lab Results 08/03/20 23:21: WBC 10.1, RBC 3.90 L, Hgb 12.1 L, Hct 36.9 L, MCV 94.9, MCH 31.0, MCHC 32.7, RDW 14.1, Plt Count 348, MPV 8.2, Neut % (Auto) 56.6, Lymph % (Auto) 34.8, [place] % (Auto) 4.8, Eos % (Auto) 3.5, Baso % (Auto) 0.4, Neut # (Auto) 5.7, Lymph # (Auto) 3.5, [place] # (Auto) 0.5, Eos # (Auto) 0.4, Baso # (Auto) 0.0 08/03/20 23:21: Sodium 138, Potassium 3.4 L, Chloride 95 L, Carbon Dioxide 35 H, Anion Gap 11.4, BUN 15, Creatinine 1.10 H, Estimated Creat Clear 90, Estimated GFR 51 L, Est GFR ( Amer) 62, Glucose 173 H, Calcium 8.5, Troponin I < 0.01, Amylase 49, Lipase 41 Result diagrams: 08/03/20 23:21 08/03/20 23:21 Orders (Tests/Meds): ED MEDICATIONS Generic Name Dose Route Start Last Admin Trade Name Freq PRN Reason Stop Dose Admin Sodium Chloride 1,000 mls @ 999 mls/hr 08/03/20 23:30 08/03/20 23:23 Sod Chlor 0.9% 1000ml Bag IV 08/04/20 00:30 999 mls/hr .Q1H1M CRISTOPHER Administration Discontinued Medications Generic Name Dose Route Start Last Admin Trade Name Freq PRN Reason Stop Dose Admin Hydromorphone HCl 1 mg 08/04/20 00:37 08/04/20 00:38 Dilaudid 2mg/Ml Syringe IV 08/04/20 00:38 1 mg ONCE ONE Administration Morphine Sulfate 4 mg 08/03/20 23:33 08/03/20 23:42 Morphine 2mg/Ml Syringe IV 08/03/20 23:34 4 mg ONCE ONE Administration Ondansetron HCl 4 mg 08/03/20 23:33 08/03/20 23:42 Zofran 4mg/2ml Vial IV 08/03/20 23:34 4 mg ONCE ONE Administration ORDERS Category Date Time Status XR chest portable Stat Exams 08/03/20 23:14 Taken Troponin I Q3H Lab 08/04/20 02
[2020-08-03 23:52] LABS: Troponin I < 0.01 ng/ml (0.00-0.034)
[2020-08-04 00:09] VITALS: BP 106/80; PULSE 96; RESP 18; O2SAT 91
[2020-08-04 00:28] VITALS: BP 124/85; PULSE 102; RESP 18; O2SAT 94
--- NOTE | 2020-08-04 00:44 | PC.NURSE ---
Dr. Sierra paged
--- NOTE | 2020-08-04 00:47 | PC.NURSE ---
Dr. Sierra speaking with
[2020-08-04 01:02] VITALS: BP 124/94; PULSE 115; RESP 18; O2SAT 90
[2020-08-04 01:37] VITALS: BP 108/76; PULSE 74; RESP 16; TEMP 36.9; O2SAT 98
== END 2020-08-04 01:38 | disposition home or self-care (01) ==
PROVIDERS: Emergency Provider Emergency Medicine
DX: K86.1 Other chronic pancreatitis (principal); R73.9 Hyperglycemia, unspecified; I10 Essential (primary) hypertension; E78.5 Hyperlipidemia, unspecified; I48.20 Chronic atrial fibrillation, unspecified; K21.9 Gastro-esophageal reflux disease without esophagitis; I25.10 Atherosclerotic heart disease of native coronary artery without angina pectoris; I25.2 Old myocardial infarction; J44.9 Chronic obstructive pulmonary disease, unspecified; Z79.899 Other long term (current) drug therapy; Z88.5 Allergy status to narcotic agent; F17.210 Nicotine dependence, cigarettes, uncomplicated; Z90.09 Acquired absence of other part of head and neck; Z90.49 Acquired absence of other specified parts of digestive tract; Z90.710 Acquired absence of both cervix and uterus
CPT/HCPCS: 71045; 80048; 82150; 83690; 84484; 85025; 93005; 96365; 96375; 96376; 99284; J1642; J2405

== ENCOUNTER 2020-08-23 18:09 | Emergency (ER) | payer MEDICARE, MEDICAID, SELFPAY ==
[2020-08-23 18:10] VITALS: BP 123/86; PULSE 90; RESP 17; TEMP 36.8; O2SAT 95; BMI 37.9
[2020-08-23 18:24] LABS: Microscopic, Urine URINE MICROSCOPIC (MICROSCOPIC)
[2020-08-23 18:36] LABS: Appearance,Urine CLEAR (Clear); Bilirubin,Urine Negative (Negative); Blood, Urine Negative (Negative); Color,Urine YELLOW (Yellow); Glucose,Urine (UA) Negative (Negative); Ketones,Urine Negative (Negative); Leukocyte Esterase,Urine Negative (Negative); Nitrate,Urine Negative (Negative); Protein,Urine Negative (Negative)
[2020-08-23 18:36] LABS: Basophils # 0.1 K/mm3 (0-0.2); Basophils % 0.6 % (0.1-2.0); Eosinophils # 0.4 K/mm3 (0.0-0.4); Eosinophils % 3.2 % (0.1-12.0); Hematocrit 40.5 % (37.0-47.0); Hemoglobin 13.5 g/dL (12.2-16.2); Lymphocytes # 4.5 K/mm3 (0.7-4.5); Lymphocytes % 33.8 % (10-50); Mean Corpuscular HGB Conc 33.3 g/dL (31.8-35.4); Mean Corpuscular Hemoglobin 30.3 pg (27.0-31.2); Mean Corpuscular Volume 90.8 fl (81-99); Mean Platelet Volume 8.8 fl (7.4-10.4); Monocytes # 0.6 K/mm3 (0.1-1.0); Monocytes % 4.2 % (1.7-9.3); Neutrophils # 7.7 K/mm3 (1.8-7.8); Neutrophils % 58.2 % (37.0-80.0); Platelet Count 327 K/mm3 (142-424); Red Blood Count 4.46 M/mm3 (4.20-5.40); Red Cell Distribution Width 14.5 % (11.5-17.5); White Blood Count 13.2 K/mm3 (4.8-10.8)
[2020-08-23 18:41] LABS: Bacteria,Urine 1+ /lpf; Hyaline Casts,Urine Occasional #/lpf (0)
[2020-08-23 18:42] LABS: Chloride 97 mmol/L (98-107); Potassium 3.7 mmoL/L (3.5-5.1); Sodium 139 mmol/L (136-145)
[2020-08-23 18:44] LABS: Amylase 51 U/L (30-110)
[2020-08-23 18:45] LABS: Alanine Aminotransferase 23 U/L (12-78); Albumin Level 4.3 g/dl (3.5-5.0); Albumin/Globulin Ratio 1.3 (1.1-1.8); Alkaline Phosphatase 144 U/L (38-126); Anion Gap 13.7 mEq/L (5-15); Aspartate Amino Transferase 26 U/L (14-36); Bilirubin,Total 0.5 mg/dl (0.2-1.3); Blood Urea Nitrogen 14 mg/dl (7-17); Calcium 9.4 mg/dl (8.4-10.2); Carbon Dioxide 32 mmol/L (22.0-30.0); Creatinine Clearance Estimated 102 mL/min (50-200); Estimated Glomerular Filt Rate 57 ml/min (>60); GFR (African American) 69 ML/MIN (>60); Globulin 3.2 g/dL (1.3-3.2); Glucose 132 mg/dl (74-100); Lipase 50 U/L (23-300); Total Protein,Serum 7.5 g/dl (6.3-8.2)
--- NOTE | 2020-08-23 18:58 | HMH.EDGENADL ---
ED Disposition Clinical Impression: Chronic pancreatitis Qualifiers: Pancreatitis type: unspecified pancreatitis type Qualified Code(s): K86.1 - Other chronic pancreatitis Disposition: Home, Self-Care Condition on Discharge: Good Additional Instructions: Continue your current medications. Call Dr. Colón tomorrow if not improved. Additional instructions for ABDOMINAL PAIN: See your physician as soon as possible for further evaluation. Return immediately if worsening abdominal pain, vomiting, shortness of breath, fever, vomiting of blood or abdominal distention. Referrals: Juan C Colón MD [Primary Care Provider] - - Critical Care Critical Care Time: No Attestation: On 08/23/20, the high probability of a clinically significant, sudden or life threatening deterioration of the following system(s) required my full and direct attention, intervention and personal management. The time I documented below is in addition to time spent performing reported procedures but includes the following listed in this critical care notation. Medical Decision Making - Medical Records Medical records reviewed: Yes: I reviewed the patient's medical records. - Delroy Inquiry Pt receiving controlled substance: Yes Delroy was queried for this patient: Yes Reference #:: [id number] Risks and benefits of using a controlled substance: were not discussed with pt by me Comment: 29 rxs. last rx 60 oxycodone 5mg 08/18/20 Vital Signs: 08/23/20 18:10 Temperature 98.2 F Temperature Source Oral Pulse Rate [Right] 90 Respiratory Rate 17 Blood Pressure [Right Arm] 123/86 Blood Pressure Mean [Right Arm] 98 02 Sat by Pulse Oximetry 95 - Lab Data Lab results reviewed: Yes: I reviewed the patient's lab results. Lab Results 08/23/20 18:15: Urine Color Yellow, Urine Appearance Clear, Urine pH 7.0, Ur Specific [place] 1.020, Urine Protein Negative, Urine Glucose (UA) Negative, Urine Ketones Negative, Urine Blood Negative, Urine Nitrate Negative, Urine Bilirubin Negative, Urine Urobilinogen 1.0, Ur Leukocyte Esterase Negative, Urine WBC 5-10, Ur Squamous Epith Cells 5-10, Urine Bacteria 1+, Hyaline Casts Occasional 08/23/20 18:25: WBC 13.2 H, RBC 4.46, Hgb 13.5, Hct 40.5, MCV 90.8, MCH 30.3, MCHC 33.3, RDW 14.5, Plt Count 327, MPV 8.8, Neut % (Auto) 58.2, Lymph % (Auto) 33.8, [place] % (Auto) 4.2, Eos % (Auto) 3.2, Baso % (Auto) 0.6, Neut # (Auto) 7.7, Lymph # (Auto) 4.5, [place] # (Auto) 0.6, Eos # (Auto) 0.4, Baso # (Auto) 0.1 08/23/20 18:25: Sodium 139, Potassium 3.7, Chloride 97 L, Carbon Dioxide 32 H, Anion Gap 13.7, BUN 14, Creatinine 1.00, Estimated Creat Clear 102, Estimated GFR 57 L, Est GFR ( Amer) 69, Glucose 132 H, Calcium 9.4, Total Bilirubin 0.5, AST 26, ALT 23, Alkaline Phosphatase 144 H, Total Protein 7.5 D, Albumin 4.3, Globulin 3.2, Albumin/Globulin Ratio 1.3, Amylase 51, Lipase 50 Result diagrams: 08/23/20 18:25 08/23/20 18:25 Orders (Tests/Meds): ED MEDICATIONS Discontinued Medications Generic Name Dose Route Start Last Admin Trade Name Freq PRN Reason Stop Dose Admin Hydromorphone HCl 1 mg 08/23/20 19:09 08/23/20 19:33 Dilaudid 2mg/Ml Syringe IV 08/23/20 19:10 1 mg ONCE ONE Administration Hydromorphone HCl 1 mg 08/23/20 19:46 Dilaudid 2mg/Ml Syringe IV 08/23/20 19:47 ONCE ONE Ondansetron HCl 4 mg 08/23/20 19:09 08/23/20 19:33 Zofran 4mg/2ml Vial IV 08/23/20 19:10 4 mg ONCE ONE Administration - Reevaluation(s) Time: 19:43 Reevaluation #1: Improved after first dose of Dilaudid. Looks comfortable. Scrolling on phone. Medical Decision Narrative: Patient is not interested in CT scan. She states I have had so many gets a wonder I do not glow . She says her current symptoms are typical and she wishes just to be treated with pain medication, IV fluids, and nausea medicine. General Adult HPI - General Chief complaint: Abdominal Pain Stated complaint: top Abd pain, and
[2020-08-23 20:18] VITALS: BP 126/79; PULSE 88; RESP 20; O2SAT 95
[2020-08-23 20:32] VITALS: BP 112/72; PULSE 84; RESP 18; TEMP 37.1; O2SAT 95
== END 2020-08-23 20:37 | disposition home or self-care (01) ==
PROVIDERS: Emergency Provider Emergency Medicine; PCP Family Medicine
DX: K86.1 Other chronic pancreatitis (principal); J44.9 Chronic obstructive pulmonary disease, unspecified; K21.9 Gastro-esophageal reflux disease without esophagitis; E78.5 Hyperlipidemia, unspecified; I25.10 Atherosclerotic heart disease of native coronary artery without angina pectoris; I48.0 Paroxysmal atrial fibrillation; I10 Essential (primary) hypertension; I25.2 Old myocardial infarction; Z90.49 Acquired absence of other specified parts of digestive tract; Z90.710 Acquired absence of both cervix and uterus; Z87.891 Personal history of nicotine dependence; Z79.899 Other long term (current) drug therapy; Z88.8 Allergy status to other drugs, medicaments and biological substances; Z88.5 Allergy status to narcotic agent
CPT/HCPCS: 80053; 81001; 82150; 83690; 85025; 96365; 96375; 96376; 99283; J1642; J2405

== ENCOUNTER → 2020-08-28 10:11 | Outpatient (POV) | payer MEDICARE, MEDICAID, SELFPAY ==
[2020-08-28 10:43] VITALS: BP 132/78; PULSE 83; RESP 18; O2SAT 98; BMI 33.8
--- NOTE | 2020-08-28 12:56 | HMH.PMCON ---
Assessment and Plan (1) Pancreatitis Current visit: No Status: Chronic Qualifiers: Chronicity: chronic Pancreatitis type: other Qualified Code(s): K86.1 - Other chronic pancreatitis Category: Medical Code(s): K85.90 - Acute pancreatitis without necrosis or infection, unspecified (2) Uncontrolled pain Current visit: No Status: Chronic Category: Medical Code(s): R52 - Pain, unspecified - Assessment and plan all Dx Assessment and Plan for all problems:: Patient and I had a long discussion about intrathecal therapy. We would utilize bupivacaine due to her history with narcotic medications. Patient is agreeable to this. Patient understands the need for psychological evaluation. We will set this up for her. We also discussed the process along with realistic goals she is on Brilinta we will have to have permission prior to doing any trials to have her off of the medication. I will follow-up with her after her psych eval reassess her symptoms at that time she has been instructed to call the office if she has any issues prior to her next appointment. Dr. Emmanuel has reviewed this note and agrees with this plan of care. This note was dictated using voice recognition software and may contain errors or omissions HPI - Data of Consult Consult date: 08/28/20 Requesting Physician: Noy Morin APRN Primary Care Provider: Juan C Colón MD - Consult Narrative Reason for consult: Chronic pancreatitis History of present illness: Ms. Arteaga is a 59 year old female who presents today to discuss her options in regard to her chronic pancreatitis pain. Patient has a pancreatic divisum which she has had stents placed. Patient has had issues for quite some time. Her chauffeur motorbus has suggested a pancreatomy however due to her breathing and other comorbid conditions she is not a candidate for the surgery. She rates her pain now a 1 out of 10 however it can increase to 10 out of 10. Patient has a history of prescription drug abuse and would like to remain off narcotic medications. Patient is interested in alternative ways of treatment. Patient has a lot of left sided abdominal pain. CC: Noy Morin APRN [facility] History I have reviewed the patient's past medical history: Yes Medical History: Reports:: Arrhythmia, Atrial Fibrillation, Congestive Heart Failure, Chronic Obstructive Pulmonary Disease (COPD), Coronary Artery Disease, Deep Vein Thrombosis, Gastroesophageal Reflux Disease(GERD), Hyperlipidemia, Hypertension, Myocardial Infarction, Peripheral Artery Disease Denies:: Cancer, Diabetes Mellitus Type 1, Diabetes Mellitus Type 2, Internal Pacemaker, MRSA *Have you ever received a pneumonia vaccine?: Yes *Have you received a flu vaccine this season?: Yes Other Medical History: Reports: Arthritis, Hoarseness, Other (pancreatitis) Laterality Cases: Bilateral: Tonsillectomy Other Surgeries: Yes: No Previous Surgery, Appendectomy, Cardiac Catheterization, Cholecystectomy, Colonoscopy, Coronary Stent, EGD, Hysterectomy-Total, Tubal Ligation, Other. No: Pacemaker Amputation: No Fractures: Yes - *Social History Smoking Status: Never smoker Tobacco Type: cigarettes # Packs/Day (cigarettes): 1 #Yrs smoked (if former smoker): 40 Alcohol Intake: never Alcohol Intake Frequency:: other Substance Use Type: painkillers *Occupational Status:: other Housing: house Household Members: other *Travel in the last 8 weeks: None Family Hx:: Unable to obtain Review of Systems - Review of Systems ROS General: no recent weight change, no fever, no sleep disturbances Respiratory: no cough, no shortness of air, no recurring pulmonary infections Cardiovascular/Peripheral Vascular: No chest pain, No palpitations, no edema, no shortness of breath. Gastrointestinal: no new onset incontinence, normal bowel movements reported Genitourinary: no new onset incontinence Musculoskeletal: Abdominal pain Psychiatric: normal moo
--- NOTE | 2020-12-08 15:41 | PC.NURSE ---
Spoke with patient on the phone to stop blood thinner 6 days before injection.
== END ==
PROVIDERS: PCP Family Medicine; Visit Provider Clinical Nurse Specialist Family Health
DX: K86.1 Other chronic pancreatitis (principal); R52 Pain, unspecified
CPT/HCPCS: 99202

== ENCOUNTER 2020-09-11 07:20 | Emergency (ER) | payer MEDICARE, MEDICAID, SELFPAY ==
--- NOTE | 2020-09-11 07:19 | ECG_ITS ---
APPROVED REPORT Exam: Resting ECG HR:80 bpm ECG Measurements Heart Rate 80 AXES NJ 172 P 85 QRSd 84 QRS 26 QT 414 T 65 QTc 477 Conclusion Normal sinus rhythm Nonspecific T wave abnormality Prolonged QT Abnormal ECG Electronically signed by : Oskar Eugene, 09/11/2020 15:47:13
[2020-09-11 07:20] VITALS: BP 119/82; PULSE 86; RESP 17; TEMP 36.7; O2SAT 99; BMI 37.8
--- NOTE | 2020-09-11 07:24 | XR_ITS ---
PROCEDURE: XR CHEST PORTABLE CLINICAL HISTORY: CP Chest pain COMPARISON: CR XR CHEST PORTABLE from 05/29/2020 CR XR CHEST PORTABLE from 07/11/2020 CR XR CHEST PORTABLE from 08/03/2020 FINDINGS: Mild cardiomegaly without failure. Right subclavian MediPort catheter is present with tip in the region the SVC. There multiple old right-sided rib fractures. No lobar consolidation or collapse. Bone plate is present in the lower cervical spine. IMPRESSION: As above, no acute finding Dictated by: Wili Arriola MD 09/11/2020 08:14 Wili Arriola MD in [place] 09/11/2020 08:14
[2020-09-11 07:44] LABS: Basophils % 0.4 % (0.1-2.0); Eosinophils # 0.3 K/mm3 (0.0-0.4); Eosinophils % 2.4 % (0.1-12.0); Hematocrit 39.3 % (37.0-47.0); Hemoglobin 11.9 g/dL (12.2-16.2); Lymphocytes # 2.7 K/mm3 (0.7-4.5); Lymphocytes % 24.8 % (10-50); Mean Corpuscular HGB Conc 30.4 g/dL (31.8-35.4); Mean Corpuscular Hemoglobin 28.3 pg (27.0-31.2); Mean Corpuscular Volume 93.3 fl (81-99); Mean Platelet Volume 8.6 fl (7.4-10.4); Monocytes # 0.4 K/mm3 (0.1-1.0); Monocytes % 4.1 % (1.7-9.3); Neutrophils # 7.3 K/mm3 (1.8-7.8); Neutrophils % 68.2 % (37.0-80.0); Platelet Count 325 K/mm3 (142-424); Red Blood Count 4.21 M/mm3 (4.20-5.40); White Blood Count 10.7 K/mm3 (4.8-10.8)
[2020-09-11 07:55] LABS: Chloride 98 mmol/L (98-107)
[2020-09-11 07:56] LABS: Sodium 136 mmol/L (136-145)
[2020-09-11 07:58] LABS: Blood Urea Nitrogen 14 mg/dl (7-17); Creatinine Clearance Estimated 106 mL/min (50-200); Estimated Glomerular Filt Rate 64 ml/min (>60); GFR (African American) 78 ML/MIN (>60); Potassium 2.9 mmoL/L (3.5-5.1)
[2020-09-11 07:59] LABS: Anion Gap 8.9 mEq/L (5-15); Calcium 8.7 mg/dl (8.4-10.2); Carbon Dioxide 32 mmol/L (22.0-30.0); Glucose 179 mg/dl (74-100)
--- NOTE | 2020-09-11 08:06 | PC.NURSE ---
Dr So spoke with dalila gutiérrez
--- NOTE | 2020-09-11 08:13 | PC.NURSE ---
Ifeanyi Manning paged
[2020-09-11 08:20] LABS: Troponin I < 0.01 ng/ml (0.00-0.034)
--- NOTE | 2020-09-11 08:23 | PC.NURSE ---
Ifeanyi Manning in with Pt.
--- NOTE | 2020-09-11 08:28 | PC.NURSE ---
New orders received from dalila gutiérrez, see mar
--- NOTE | 2020-09-11 08:29 | HMH.CNCARD ---
History of Present Illness Consult date: 09/11/20 Requesting physician: Sea So Consult reason: chest pain Chief complaint: Chest pain Additional Medical History:: 1. Coronary disease A. Hospitalization for chest pain, 01/2018 B. Abnormal stress test indicative of reversible ischemia anterior and inferior areas C. Cardiac catheterization, 01/2018, 2 CARLOS to LAD, 1 CARLOS to RCA, normal LVEF D. Cardiac cath, 01/2018, patent stents. LVEF 65% with LVEDP of 20 mm Hg E. [facility], 01/2020, 1 CARLOS to ostial Left main, 1 CARLOS to proximal LAD, normal EF, LVEDP 30-35 mm Hg F. [facility], 05/2020, ANGIOGRAPHIC RESULTS The left main artery Has a stent in the ostial segment which extends into the proximal LAD. The entire stent is widely patent free of in-stent restenosis with excellent proximal distal transitioning The left anterior descending artery Has a stent originating off the left main artery which is widely patent. The transition into the absentee-shawnee vessel is excellent. There is a large first diagonal artery which has a 50% ostial stenosis. The circumflex artery Is a nondominant vessel and has mild luminal irregularities of 10% however the entire vessel was small The right coronary artery Is a dominant vessel and has mid vessel 20 to 30% stenoses. The entire vessel was small The ONEILL ventriculogram reveals Hyperdynamic 75 to 80% The left ventricular end-diastolic pressure 18 mmHg IMPRESSION Diffuse small vessel coronary arteries consistent with hypertensive vasculopathy Patent stents as described above Hyperdynamic ventricle which likely accounts for patient's symptoms Mildly elevated LVEDP PLAN 1. Standard therapy for ischemic heart disease 2. Patient requires negative inotropes in order to decrease hyperdynamic ventricle which will almost certainly improve patient's symptoms 3. Consider low-dose loop diuretics 4. Beta-blockers combined with verapamil or diltiazem 5. Maximize antianginals Electronically signed by : Rohit Sierra, 05/04/2020 12:15:44 2. Hypertension A. Echo, 07/2020, 1. Mild biatrial enlargement, normal left ventricular size, mild concentric left ventricular hypertrophy, visually estimated ejection fraction 55% with no regional wall motion abnormality, grade 1 diastolic dysfunction seen without tissue Doppler evidence of raise left atrial pressure. 2. Mildly enlarged right ventricle with normal contractility. 3. Mild mitral and tricuspid regurgitation. 4. No significant pericardial effusion noted . 3. History of pancreatitis A. Indwelling port for many years 4. Tobacco use, long history, still smoking A. COPD B. FLACO 5. Obesity 6. History of atrial fibrillation, on Eliquis therapy A. History of CVA in remote past B. Referred to EP in [place], [place] for further evaluation. 7. History of anxiety and depression, stemming from the of her 's (1 from an AR, the second from intestinal issues leading to sepsis )and her 20-year-old son from an overdose in 2003 A. Patient does see mental health regularly 8. Carotid artery stenosis A. Carotid ultrasound, 07/2020, less than 20% stenosis bilaterally History of present illness: 59-year-old white female with known coronary artery disease, hypertension, hyperlipidemia and tobacco use presented to the ER for onset of chest discomfort this a.m. Symptoms described as a sharp pain beneath the left breast that would wax and wane. Patient was seen in the ER with initial troponin being normal and EKG showing sinus rhythm with no acute ST segment changes. Cardiology consulted for evaluation recommendation. Patient had a cardiac catheterization 4 months ago with patent stents in the left main and LAD. Patient does have some 10 to 30% stenosis of the major vessels with a branch diagonal artery showing a 50% blockage best treated with medical therapy. [facility] History Medical History: Reports:: Arrhythmia, Atrial F
--- NOTE | 2020-09-11 08:41 | HMH.EDCP ---
ED Disposition Clinical Impression: Unstable angina, Atypical chest pain Disposition: Home, Self-Care Condition on Discharge: Fair Additional Instructions: Take meds as prescribed. Use nitrate for chest pain. Return if recurrent chest pain, shortness of breath, diaphoresis, nausea, or other new symptoms. Prescriptions: RX: Isosorbide Mononitrate [Imdur 30mg ER tablet] 30 mg PO DAILY 14 Days #14 tab.er.24h Transmission Status: Pending to [facility] RX: Potassium Chloride 20 meq PO DAILY 3 Days #3 tablet.er Transmission Status: Pending to [facility] Referrals: PCP,No [Non-Staff] - - Critical Care Critical Care Time: No Attestation: On 09/11/20, the high probability of a clinically significant, sudden or life threatening deterioration of the following system(s) required my full and direct attention, intervention and personal management. The time I documented below is in addition to time spent performing reported procedures but includes the following listed in this critical care notation. Medical Decision Making - Medical Records Medical records reviewed: Yes: I reviewed the patient's medical records. - Delroy Inquiry Pt receiving controlled substance: No Vital Signs: 09/11/20 07:20 09/11/20 10:19 Temperature 98.1 F Temperature Source Oral Pulse Rate [Right] 86 71 Respiratory Rate 17 18 Blood Pressure [Right Arm] 119/82 116/74 Blood Pressure Mean [Right Arm] 94 88 Blood Pressure Source [Right Arm] Automatic Cuff 02 Sat by Pulse Oximetry 99 98 Oxygen Delivery Method Room Air - Lab Data Lab Results 09/11/20 07:36: WBC 10.7, RBC 4.21, Hgb 11.9 L, Hct 39.3, MCV 93.3, MCH 28.3, MCHC 30.4 L, RDW 14.0, Plt Count 325, MPV 8.6, Neut % (Auto) 68.2, Lymph % (Auto) 24.8, [place] % (Auto) 4.1, Eos % (Auto) 2.4, Baso % (Auto) 0.4, Neut # (Auto) 7.3, Lymph # (Auto) 2.7, [place] # (Auto) 0.4, Eos # (Auto) 0.3, Baso # (Auto) 0.0 09/11/20 07:36: Sodium 136, Potassium 2.9 L*, Chloride 98, Carbon Dioxide 32 H, Anion Gap 8.9, BUN 14, Creatinine 0.90, Estimated Creat Clear 106, Estimated GFR 64, Est GFR ( Amer) 78, Glucose 179 H, Calcium 8.7, Troponin I < 0.01 09/11/20 07:36: Magnesium 1.8 09/11/20 10:17: Troponin I < 0.01 Result diagrams: 09/11/20 07:36 09/11/20 07:36 Orders (Tests/Meds): ED MEDICATIONS Generic Name Dose Route Start Last Admin Trade Name Freq PRN Reason Stop Dose Admin Isosorbide Mononitrate 30 mg 09/11/20 09:00 09/11/20 09:05 Isosorbide [place] 30mg Tab.Er.24h PO 10/11/20 08:59 30 mg DAILY CRISTOPHER Administration Discontinued Medications Generic Name Dose Route Start Last Admin Trade Name Freq PRN Reason Stop Dose Admin Potassium Chloride 40 meq 09/11/20 08:28 09/11/20 09:05 Potassium Chloride 20meq Tab PO 09/11/20 08:29 40 meq ONCE ONE Administration Potassium Chloride 40 meq 09/11/20 08:49 09/11/20 09:06 Potassium Chloride 20meq Tab PO 09/11/20 08:50 Not Given ONCE ONE ORDERS Category Date Time Status Troponin I Q3H Lab 09/11/20 13:30 Ordered - ECG Data Tracing #1 I reviewed this ECG and interpreted as documented below: EKG demonstrates sinus rhythm at a normal rate with QTC 477 ms; no acute ST elevation/depression Medical Decision Narrative: Patient presents to the emergency department with chest pain. EKG obtained immediately upon arrival demonstrates no acute ischemic changes. At this time, patient does have significant coronary artery disease history but had a recent catheterization done just several months ago which demonstrated some stenosis/restenosis but no significant blockage and plan for patient to be managed medically was made. At this time, patient's pain is rather atypical but ACS is on the differential so cardiac enzyme testing will be obtained. Other differential diagnoses include anemia versus acute cardiopulmonary abnormality versus diffuse esophageal spasm. Basic lab work will be checked
[2020-09-11 09:05] LABS: Magnesium 1.8 mg/dl (1.6-2.3)
[2020-09-11 10:19] VITALS: BP 116/74; PULSE 71; RESP 18; O2SAT 98
--- NOTE | 2020-09-11 10:27 | PC.NURSE ---
2ND TROPONIN DRAWN AND SENT TO LAB
[2020-09-11 10:55] LABS: Troponin I < 0.01 ng/ml (0.00-0.034)
[2020-09-11 11:28] VITALS: BP 145/87; PULSE 87; RESP 17; TEMP 36.7; O2SAT 99
== END 2020-09-11 11:29 | disposition home or self-care (01) ==
PROVIDERS: Emergency Medicine; Emergency Provider Emergency Medicine; PCP Family Medicine
DX: I20.8 Other forms of angina pectoris (principal); E87.6 Hypokalemia; R73.9 Hyperglycemia, unspecified; I10 Essential (primary) hypertension; J44.9 Chronic obstructive pulmonary disease, unspecified; I48.20 Chronic atrial fibrillation, unspecified; I25.10 Atherosclerotic heart disease of native coronary artery without angina pectoris; E66.9 Obesity, unspecified; Z79.899 Other long term (current) drug therapy; Z88.5 Allergy status to narcotic agent; Z88.8 Allergy status to other drugs, medicaments and biological substances
CPT/HCPCS: 71045; 80048; 83735; 84484; 85025; 93005; 96374; 99283; J1642

== ENCOUNTER → 2020-09-20 09:03 | Outpatient (CLI) | payer MEDICARE, MEDICAID, SELFPAY ==
--- NOTE | 2020-09-20 09:14 | XR_ITS ---
PROCEDURE: XR HIP RT 2-3V W/PELVIS CLINICAL INDICATION: right hip pain Right hip pain COMPARISON: CR XR HIP RT 2-3V W/PELVIS from 08/11/[address] ABDOMEN PELVIS W CON from 06/14/2020 FINDINGS: There are mild osteoarthritic changes of the right hip. Vague lucency is present in the femoral head and may be due to a subchondral cyst at approximately 13 mm. No fracture or dislocation. No blastic IMPRESSION: Changes. Mild osteoarthritis of the right hip with possible 13 mm subchondral cyst. Dictated by: Wili Arriola MD 09/20/2020 11:52 Wili Arriola MD in [facility] 09/20/2020 11:52
== END ==
PROVIDERS: PCP Family Medicine; Visit Provider Orthopaedic Surgery
DX: M25.551 Pain in right hip (principal)
CPT/HCPCS: 73502

== ENCOUNTER 2020-10-17 08:41 | Day surgery (SDC) | payer MEDICARE, MEDICAID, SELFPAY ==
[2020-10-17] VITALS (16 sets, daily range): BP systolic 77–119; BP diastolic 43–76; PULSE 70–84; RESP 2–20; O2SAT 95–100; BMI 39.1
--- NOTE | 2020-10-17 | IR_ITS ---
APPROVED REPORT Patient Location: Outpatient PROCEDURES Left heart catheterization Left ventriculogram Selective coronary angiogram INDICATION Known coronary artery disease, History of coronary artery left main stenting, Accelerated angina pectoris Informed consent was obtained prior to the procedure. COMPLICATIONS NONE Estimated Blood Loss: LESS THAN 10 ML TECHNIQUE One percent lidocaine used to anesthetize the right anterior aspect of the wrist. The right radial artery was accessed via the Seldinger technique. A 6 [place] sheath was placed in the right radial artery. 2.5 mg of verapamil, 800 mcg of nitroglycerin, 1mg Lidocaine and 5000 U Heparin were given through the arterial sheath. The trap catheter was also used to perform left heart catheterization, left ventriculogram and selective coronary angiogram. At the end of the procedure the sheath was removed good hemostasis was achieved using Traclet band, patient was transferred to the postop holding area in stable condition. ANGIOGRAPHIC RESULTS The left main artery Has a stent in its proximal mid through distal segment which extends into the LAD. The stent is widely patent free of in-stent restenosis The left anterior descending artery Has a stent originating off the left main artery and extends proximally. The stent is widely patent free of in-stent restenosis with excellent proximal distal transitioning. The remaining LAD has mild 10% plaque. The first diagonal artery is widely patent with no angiographic evidence of jailing The circumflex artery Gives rise to a ramus intermedius which has no angiographic evidence of jailing with [place]-3 flow. The circumflex artery is dominant and has an ostial 30% stenosis followed by a proximal 30% stenosis The right coronary artery Is nondominant and has stents in the proximal through mid segment which are widely patent with minimal in-stent restenosis and excellent [place]-3 flow with excellent distal transitioning The ONEILL ventriculogram reveals Hyperdynamic at 75% The left ventricular end-diastolic pressure 20 mmHg IMPRESSION Coronary disease as described above with widely patent stents Hyperdynamic ventricle with mildly elevated LVEDP PLAN 1. Treat diastolic dysfunction 2. Continue treatment for angina Electronically signed by : Rohit Sierra, 10/17/2020 12:52:26
[2020-10-17 09:16] LABS: Basophils % 0.4 % (0.1-2.0); Eosinophils # 0.3 K/mm3 (0.0-0.4); Eosinophils % 3.2 % (0.1-12.0); Hematocrit 40.8 % (37.0-47.0); Hemoglobin 12.7 g/dL (12.2-16.2); Lymphocytes # 2.6 K/mm3 (0.7-4.5); Lymphocytes % 26.5 % (10-50); Mean Corpuscular Hemoglobin 28.2 pg (27.0-31.2); Mean Corpuscular Volume 90.8 fl (81-99); Mean Platelet Volume 8.6 fl (7.4-10.4); Monocytes # 0.3 K/mm3 (0.1-1.0); Monocytes % 3.2 % (1.7-9.3); Neutrophils # 6.5 K/mm3 (1.8-7.8); Neutrophils % 66.7 % (37.0-80.0); Platelet Count 319 K/mm3 (142-424); Red Cell Distribution Width 15.8 % (11.5-17.5); White Blood Count 9.8 K/mm3 (4.8-10.8)
[2020-10-17 09:17] LABS: Chloride 103 mmol/L (98-107); Potassium 3.1 mmoL/L (3.5-5.1); Sodium 139 mmol/L (136-145)
[2020-10-17 09:20] LABS: Anion Gap 10.1 mEq/L (5-15); Blood Urea Nitrogen 16 mg/dl (7-17); Calcium 8.9 mg/dl (8.4-10.2); Carbon Dioxide 29 mmol/L (22.0-30.0); Creatinine Clearance Estimated 101 mL/min (50-200); Estimated Glomerular Filt Rate 57 ml/min (>60); GFR (African American) 68 ML/MIN (>60); Glucose 144 mg/dl (74-100)
[2020-10-17 10:06] LABS: Coronavirus 19 IgG Antibody Negative (Negative); Coronavirus 19 IgM Antibody Negative (Negative)
== END 2020-10-17 15:27 | disposition home or self-care (01) ==
LOC: CATHLAB 08:44
PROVIDERS: PCP Family Medicine; Visit Provider Internal Medicine
DX: I25.118 Atherosclerotic heart disease of native coronary artery with other forms of angina pectoris (principal); I11.0 Hypertensive heart disease with heart failure; I50.9 Heart failure, unspecified; I48.91 Unspecified atrial fibrillation; Z72.0 Tobacco use; J44.9 Chronic obstructive pulmonary disease, unspecified; Z88.1 Allergy status to other antibiotic agents; Z88.5 Allergy status to narcotic agent; Z79.51 Long term (current) use of inhaled steroids; Z79.899 Other long term (current) drug therapy
CPT/HCPCS: 80048; 85025; 86328; 93458; 99152; 99153; C1725; C1769; J1642; J1644; Q9967

== ENCOUNTER → 2020-12-15 08:34 | Day surgery (SDC) | payer MEDICARE, MEDICAID, SELFPAY ==
[2020-12-15] VITALS (9 sets, daily range): BP systolic 114–145; BP diastolic 71–98; PULSE 78–87; RESP 18–20; TEMP 36.6; O2SAT 93–99; BMI 37.9
--- NOTE | 2020-12-15 09:49 | HMH.PMPROC ---
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 She has been off of her Brilinta for 4 days. She is also on oxygen all of the time. She is also on oral narcotics for her chronic pancreatitis. She is on oxycodone 5 mg 3 times a day along with alprazolam 1 mg 3 times a day given to her by primary care physician. She has had a successful psychological evaluation. She is failed all previous conservative therapy including injections, oral medications and physical therapy. Given her oral narcotic use and the fact that she is on oxygen we will do an intrathecal bupivacaine pump trial to see if this helps with her pain symptoms. Procedure Details:: Pain pump trial Informed consent was obtained and the risk and benefits of the procedure was explained to the patient. The patient was taken to the procedure room and placed prone on the procedure table. Patient was prepped and draped in sterile fashion. C-arm fluoroscopy was used to view the lumbar spine. The skin and subcutaneous tissues were anesthetized using lidocaine. I placed a 18-gauge spinal needle into the L4-5 interspace and advanced until clear CSF was obtained. After this intrathecal catheter was inserted and advanced very easily to the L1 vertebral body. The needle was withdrawn. We were able to freely withdraw clear CSF through the catheter. We then injected intrathecal bupivacaine single shot bolus of 3 mg followed by saline and followed by the previous CSF that was withdrawn. The needle and catheter were then removed and a Band-Aid was placed. Patient tolerated the procedure well with no complications. We reevaluated the patient after 30 minutes to 1 hour. She was also reassessed by physical therapy. Patient had 80 to 90% relief in her pain symptoms. She did very well. She was also much more functional. She was not numb from her intrathecal bolus of bupivacaine. She wants to proceed with permanent placement. We will plan on permanent placement with intrathecal bupivacaine 5 mg/mL to start at 2.5 mg/day. Plan and disposition: We will plan on permanent placement of intrathecal pain pump with bupivacaine 5 mg/mL to start at 2.5 mg/day. Catheter tip will be at the T10 vertebral body. She is on Brilinta. We will see if she can stay off of her Brilinta till her permanent placement. We will also have her see Dr. Coy for evaluation of permanent placement of the generator. Plan and Disposition:: We will plan on permanent placement of intrathecal pain pump with bupivacaine 5 mg/mL to start at 2.5 mg/day. Catheter tip will be at the T10 vertebral body. She is on Brilinta. We will see if she can stay off of her Brilinta till her permanent placement. We will also have her see Dr. Coy for evaluation of permanent placement of the generator.
--- NOTE | 2020-12-15 12:52 | PC.NURSE ---
0900-physical therapist at bedside to perform evaluation 0950-pt returned to bay via w/c. accompanied by nursing staff. pt unable to move legs at this time d/t procedure. denies pain. VSS. pt offered breakfast tray and is agreeable. 1005-pt sitting up in w/c. tolerating PO intake. no c/o pain. VSS. no needs or concerns at this time 1020-pt sitting up in chair. no c/o pain. VSS. pt without needs or concerns at this time. 1035-pt sitting in chair. VSS, no c/o pain. no needs or concerns at this time 1054-physical therapist at bedside, performing evaluation. 1103-DR. Emmanuel at bedside.
--- NOTE | 2020-12-15 12:58 | PC.NURSE ---
1115-power port accessed and access discontinued by LAITH Beasley. Site wnl. dressing c/d/i
--- NOTE | 2020-12-15 14:49 | PC.NURSE ---
approval obtained from CECIL Rothman for patient to hold her Brilinta for 6 days prior to surgical procedure.
== END ==
PROVIDERS: PCP Family Medicine; Visit Provider Anesthesiology
DX: M51.16 Intervertebral disc disorders with radiculopathy, lumbar region (principal); K86.1 Other chronic pancreatitis; I10 Essential (primary) hypertension; E78.5 Hyperlipidemia, unspecified; J44.9 Chronic obstructive pulmonary disease, unspecified; Z86.73 Personal history of transient ischemic attack (TIA), and cerebral infarction without residual deficits; Z99.81 Dependence on supplemental oxygen; Z88.6 Allergy status to analgesic agent; I25.10 Atherosclerotic heart disease of native coronary artery without angina pectoris; Z95.828 Presence of other vascular implants and grafts; K21.9 Gastro-esophageal reflux disease without esophagitis; F41.9 Anxiety disorder, unspecified
CPT/HCPCS: 62323; 96365; 96372; J1642

== ENCOUNTER 2020-12-17 18:56 | Emergency (ER) | payer MEDICARE, MEDICAID, SELFPAY ==
[2020-12-17 18:57] VITALS: BP 181/84; PULSE 100; RESP 16; TEMP 36.8; O2SAT 94; BMI 37.9
--- NOTE | 2020-12-17 19:25 | HMH.EDABDPAI ---
ED Disposition Condition on Discharge: Good - Critical Care Critical Care Time: No <PaytonRusty - Last Filed: 12/17/20 19:45> <Sea So - Last Filed: 12/17/20 20:15> Clinical Impression: Chronic abdominal pain Abdominal pain Qualifiers: Abdominal location: generalized Qualified Code(s): R10.84 - Generalized abdominal pain Pancreatitis, chronic Qualifiers: Pancreatitis type: unspecified pancreatitis type Qualified Code(s): K86.1 - Other chronic pancreatitis Disposition: Home, Self-Care Instructions: DI for Acute Abdominal Pain Additional Instructions: call dr solares in [place] [facility] p[facility] Referrals: Juan C Colón MD [Primary Care Provider] - Attestation: On 12/17/20, the high probability of a clinically significant, sudden or life threatening deterioration of the following system(s) required my full and direct attention, intervention and personal management. The time I documented below is in addition to time spent performing reported procedures but includes the following listed in this critical care notation. Medical Decision Making - Medical Records Medical records reviewed: Yes: I reviewed the patient's medical records. - Delroy Inquiry Pt receiving controlled substance: Yes Delroy was queried for this patient: No Reason not queried -: Delroy login issues Risks and benefits of using a controlled substance: were discussed with pt by me - Reevaluation(s) Time: 19:46 <PaytonRusty - Last Filed: 12/17/20 19:45> - Lab Data Lab results reviewed: Yes: I reviewed the patient's lab results. Result diagrams: 12/17/20 19:40 12/17/20 19:40 <Sea So - Last Filed: 12/17/20 20:15> Vital Signs: 12/17/20 18:57 12/17/20 19:27 Temperature 98.3 F Temperature Source Oral Pulse Rate [Left Radial] 100 H 82 Respiratory Rate 16 16 Blood Pressure [Right Arm] 181/84 H 145/84 H Blood Pressure Mean [Right Arm] 116 104 Blood Pressure Source [Right Arm] Automatic Cuff Automatic Cuff Blood Pressure Position [Right Arm] Sitting Sitting 02 Sat by Pulse Oximetry 94 L 93 L Oxygen Delivery Method Nasal Cannula Nasal Cannula Oxygen Flow Rate (LPM) 2 2 - Lab Data Lab Results 12/17/20 19:40: WBC 12.1 H, RBC 4.03 L, Hgb 11.9 L, Hct 37.1, MCV 92.1, MCH 29.4, MCHC 32.0, RDW 15.8, Plt Count 327, MPV 8.3, Neut % (Auto) 62.4, Lymph % (Auto) 29.1, Phelps % (Auto) 3.9, Eos % (Auto) 4.3, Baso % (Auto) 0.4, Neut # (Auto) 7.5, Lymph # (Auto) 3.5, Phelps # (Auto) 0.5, Eos # (Auto) 0.5 H, Baso # (Auto) 0.1 12/17/20 19:40: Sodium 138, Potassium 3.8, Chloride 104, Carbon Dioxide 28, Anion Gap 9.8, BUN 16, Creatinine 1.00, Estimated Creat Clear 101, Estimated GFR 57 L, Est GFR ( Amer) 68, Glucose 143 H, Calcium 7.9 L, Total Bilirubin 0.3, AST 21, ALT 16, Alkaline Phosphatase 151 H, Total Protein 6.4, Albumin 3.4 L, Globulin 3.0, Albumin/Globulin Ratio 1.1, Lipase 82 Orders (Tests/Meds): ED MEDICATIONS Discontinued Medications Generic Name Dose Route Start Last Admin Trade Name Freq PRN Reason Stop Dose Admin Hydromorphone HCl 1 mg 12/17/20 19:18 12/17/20 19:25 Hydromorphone 2mg/Ml Syringe IV 12/17/20 19:19 1 mg ONCE ONE Administration Promethazine HCl 25 mg 12/17/20 19:18 12/17/20 19:25 Promethazine Hcl 25mg/Ml 1ml Vial IV 12/17/20 19:19 25 mg ONCE ONE Administration Sodium Chloride 25 ml 12/17/20 19:18 12/17/20 19:25 Sodium Chloride 0.9% 25ml Bag IV 12/17/20 19:19 25 ml ONCE ONE Administration - Reevaluation(s) Reevaluation #1: on reevaluation patient is feeling slightly better. Signed out to oncoming physician pending labs and reevaluation (Rusty Cain) Medical Decision Narrative: This is a 60-year-old female presented to the emergency department with nausea, vomiting and abdominal pain. Patient has a chronic history of pancreatitis. She frequently comes emergency department with similar symptoms. Abdominal examination is relatively benign.
[2020-12-17 19:27] VITALS: BP 145/84; PULSE 82; RESP 16; O2SAT 93
[2020-12-17 19:49] LABS: Basophils # 0.1 K/mm3 (0-0.2); Basophils % 0.4 % (0.1-2.0); Eosinophils # 0.5 K/mm3 (0.0-0.4); Eosinophils % 4.3 % (0.1-12.0); Hematocrit 37.1 % (37.0-47.0); Hemoglobin 11.9 g/dL (12.2-16.2); Lymphocytes # 3.5 K/mm3 (0.7-4.5); Lymphocytes % 29.1 % (10-50); Mean Corpuscular Hemoglobin 29.4 pg (27.0-31.2); Mean Corpuscular Volume 92.1 fl (81-99); Mean Platelet Volume 8.3 fl (7.4-10.4); Monocytes # 0.5 K/mm3 (0.1-1.0); Monocytes % 3.9 % (1.7-9.3); Neutrophils # 7.5 K/mm3 (1.8-7.8); Neutrophils % 62.4 % (37.0-80.0); Platelet Count 327 K/mm3 (142-424); Red Blood Count 4.03 M/mm3 (4.20-5.40); Red Cell Distribution Width 15.8 % (11.5-17.5); White Blood Count 12.1 K/mm3 (4.8-10.8)
[2020-12-17 19:58] LABS: Alanine Aminotransferase 16 U/L (12-78); Albumin Level 3.4 g/dl (3.5-5.0); Albumin/Globulin Ratio 1.1 (1.1-1.8); Alkaline Phosphatase 151 U/L (38-126); Anion Gap 9.8 mEq/L (5-15); Aspartate Amino Transferase 21 U/L (14-36); Bilirubin,Total 0.3 mg/dl (0.2-1.3); Blood Urea Nitrogen 16 mg/dl (7-17); Calcium 7.9 mg/dl (8.4-10.2); Carbon Dioxide 28 mmol/L (22.0-30.0); Chloride 104 mmol/L (98-107); Creatinine Clearance Estimated 101 mL/min (50-200); Estimated Glomerular Filt Rate 57 ml/min (>60); GFR (African American) 68 ML/MIN (>60); Glucose 143 mg/dl (74-100); Lipase 82 U/L (23-300); Potassium 3.8 mmoL/L (3.5-5.1); Sodium 138 mmol/L (136-145); Total Protein,Serum 6.4 g/dl (6.3-8.2)
[2020-12-17 20:17] VITALS: BP 153/91; PULSE 87; RESP 16; TEMP 36.8; O2SAT 94
== END 2020-12-17 20:24 | disposition home or self-care (01) ==
PROVIDERS: Emergency Provider Emergency Medicine; PCP Family Medicine
DX: K86.1 Other chronic pancreatitis (principal); R10.84 Generalized abdominal pain; J44.9 Chronic obstructive pulmonary disease, unspecified; I48.91 Unspecified atrial fibrillation; E78.5 Hyperlipidemia, unspecified; I10 Essential (primary) hypertension; I25.2 Old myocardial infarction; Z79.899 Other long term (current) drug therapy
CPT/HCPCS: 80053; 83690; 85025; 96374; 96375; 99282; J1642

== ENCOUNTER 2021-01-17 07:43 | Day surgery (SDC) | payer MEDICARE, MEDICAID, SELFPAY ==
[2021-01-17] VITALS (8 sets, daily range): BP systolic 111–158; BP diastolic 64–101; PULSE 90–98; RESP 18–94; TEMP 36.6–36.8; O2SAT 94–98; BMI 37.9
[2021-01-17 09:47] LABS: Benzodiazepines Screen,Urine Negative ng/ml (<200)
[2021-01-17 09:48] LABS: Amphetamine/Metha Screen,Urine Negative ng/ml (<1000); Barbiturates Screen,Urine Negative ng/ml (<200)
[2021-01-17 09:49] LABS: Cannabinoid Screen,Urine Positive ng/ml (<50); Cocaine Screen,Urine Negative ng/ml (<300)
[2021-01-17 09:50] LABS: Methadone Screen,Urine Negative ng/ml (<300)
[2021-01-17 09:51] LABS: Opiate Screen,Urine Negative ng/ml (<300); Phencyclidine Screen,Urine Negative ng/ml (<25)
--- NOTE | 2021-01-17 11:01 | HMH.OPNOTE ---
Date of procedure: 01/17/21 Pre-op Diagnosis:: Chronic pancreatitis with abdominal pain and low back pain with degenerative disc disease of lumbar spine with lumbar radiculopathy symptoms Post-op Diagnosis:: Same Procedure performed:: Intrathecal catheter placement for permanent intrathecal pain pump Surgeon:: Bakari Emmanuel MD DYNAMICS AX CONSULTANT:: Other Anesthesia: MAC Estimated blood loss (mL): 5 Clinical Note:: Patient is a pleasant 60-year-old white female who we are treating for abdominal pain associate with chronic pancreatitis and low back pain with lumbar radicular symptoms. She is on oxygen all the time she is also on oral narcotics for her chronic pancreatitis oxycodone 5 mg 3 times a day along with Xanax 1 mg 3 times a day. Given the sedating medications we are planning on intrathecal bupivacaine 5 mg per ml to be started at 2.5 mg/day. Because of weather conditions we did not have intrathecal bupivacaine today so we will be filling her pump with saline. However she has failed all previous conservative therapy including oral medications, injections and physical therapy. She did have a successful psychological evaluation and a successful intrathecal pump trial with 80 to 90% relief in her pain symptoms. She presents for permanent placement of intrathecal pain pump today. Operative findings:: None Operative note:: Informed consent was obtained and the risk and benefits of the procedure were explained to the patient. Patient was taken to the operating room placed prone on the procedure table. She was prepped and draped in sterile fashion. C-arm fluoroscopy was used to view the lumbar spine. The skin and subcutaneous tissues adjacent to the L5-S1 interspace were anesthetized using lidocaine. I made an incision and dissected down to the lumbar paraspinous fascia. A 14-gauge spinal needle was inserted and advanced into the L5-S1 interspace until clear CSF was obtained. After this intrathecal catheter was inserted and advanced very easily to the T8 vertebral body. The stylette of the catheter and the needle were withdrawn. The catheter secured to the fascia with 2 anchoring devices and 2-0 Prolene. I prepared the pump with saline. We were not able to get intrathecal bupivacaine from [facility] due to weather conditions. Dr. Coy more prepared the pump pocket. I tunneled the catheter from the back to the pump pocket and attached the catheter to the pump. We were able to freely withdraw clear CSF and saline through the side-port of the pump. Both incisions were irrigated with bacitracin solution. Both incisions were then closed with 2-0 Vicryl followed by 4-0 nylon. A wound VAC was placed over both incisions. An abdominal binder was placed. Patient was taken recovery stable condition. Patient tolerated the procedure well with no complications. Patient was started with saline infusion. We will refill the pump next week when we get medication. Patient was discharged home neurologically intact. She was given some postop pain medication. We will give her [place] 5 mg 1 tablet every 4 to 6 hours. We will give her 20 tablets. Plan and disposition: We will follow-up with her in 1 week. At that time we will refill her pump with intrathecal bupivacaine 5 mg/mL and started at 2.5 mg/day. The wound VAC will be removed at that time. We will follow-up in 2 weeks for wound check and adjustments if needed. We will also remove her sutures at that time. Patient has any problems or questions she is to call us back in the pain clinic. Condition: stable Disposition: PACU Complications:: None
--- NOTE | 2021-01-17 11:08 | HMH.PMCON ---
Assessment and Plan - Assessment and plan all Dx Assessment and Plan for all problems:: Impression-degenerative disc disease of the lumbar spine with radiculopathy Plan-placement of pain pump generator today HPI - Data of Consult Patient: new to practice Consult date: 01/17/21 Requesting Physician: Bakari Emmanuel MD Primary Care Provider: Juan C Colón MD - Consult Narrative Reason for consult: Pain chronically to the back History of present illness: Ms. Arteaga is a 60 year old female with degenerative disc disease of the lumbar spine. Multiple attempts at pain relief have been unsuccessful and patient had a pain pump trial difficult improvement she comes in today for placement of that system CC: Bakari Emmanuel MD [facility] History I have reviewed the patient's past medical history: Yes Medical History: Reports:: Arrhythmia, Atrial Fibrillation, Congestive Heart Failure, Chronic Obstructive Pulmonary Disease (COPD), Coronary Artery Disease, Deep Vein Thrombosis, Gastroesophageal Reflux Disease(GERD), Hyperlipidemia, Hypertension, Myocardial Infarction, Peripheral Artery Disease Denies:: Cancer, Diabetes Mellitus Type 1, Diabetes Mellitus Type 2, Internal Pacemaker, MRSA, Seizures *Have you ever received a pneumonia vaccine?: Yes *Have you received a flu vaccine this season?: Yes Other Medical History: Reports: Arthritis, Hoarseness, Other. Denies: Blood Transfusion Reaction Comment:: Illnesses-COPD, hypertension, hyperlipidemia, coronary artery disease with 5 stents, atrial fib, CVA, chronic renal insufficiency, GERD, anxiety and depression, chronic pancreatitis, chronic back pain Laterality Cases: Bilateral: Tonsillectomy Other Surgeries: Yes: No Previous Surgery, Appendectomy, Cardiac Catheterization, Cholecystectomy, Colonoscopy, Coronary Stent, EGD, Hysterectomy-Total, Tubal Ligation. No: Pacemaker. Comment Only: Other (port placement) Amputation: No Fractures: Yes Comment: Operations-cardiac cath with stents, tonsillectomy, appendectomy, cholecystectomy, hysterectomy, port placement, cervical fusion - *Social History Last grade of school completed: Advanced degree Smoking Status: Current some day smoker Tobacco Type: cigarettes # Packs/Day (cigarettes): 1 #Yrs smoked (if former smoker): 40 Alcohol Intake: never Alcohol Intake Frequency:: other Substance Use Type: painkillers *Occupational Status:: disabled Housing: house Household Members: other *Travel in the last 8 weeks: None Family Hx:: Unable to obtain Review of Systems - Review of Systems Review of systems:: pertinent systems reviewed and negative unless documented below Meds Home Medications Medication Instructions Recorded Confirmed Type nitroglycerin 0.4 mg sublingual 0.4 mg SUBLINGUAL Q5M PRN #20 tab 05/02/20 01/17/21 Rx tablet Omeprazole Magnesium [Prilosec Otc 20 mg PO DAILY 06/22/20 01/17/21 History 20mg Tab] promethazine 25 mg tablet 25 mg PO Q6H PRN tab 07/17/20 01/17/21 History furosemide 40 mg tablet 40 mg PO DAILY tab 10/02/20 01/17/21 History atorvastatin 40 mg tablet 40 mg PO HS tab 10/09/20 01/17/21 History metoprolol succinate 25 mg 12.5 mg PO DAILY tab 10/09/20 01/17/21 History tablet,extended release 24 hr Albuterol Sulfate [Proventil Hfa] 1 mg .ROUTE .COMPLEX PRN 10/17/20 01/17/21 History Potassium Chloride 20 meq PO DAILY 10/17/20 01/17/21 History duloxetine 60 mg capsule,delayed 60 mg PO BID #180 cap 11/17/20 01/17/21 Rx release trazodone 100 mg tablet 200 mg PO HS #90 tab 11/17/20 01/17/21 Rx Montelukast Sodium [Singulair] See Rx Instructions .ROUTE .COMPLEX 12/15/20 01/17/21 History isosorbide mononitrate 30 mg 30 mg PO DAILY #30 tab 01/01/21 01/17/21 Rx tablet,extended release 24 hr lisinopril 5 mg tablet See Rx Instructions .ROUTE 01/01/21 01/17/21 Rx .COMPLEX #90 tab ticagrelor 90 mg tablet 90 mg PO BID #60 tab 01/01/21 01/15/21 Rx oxycodone 10 mg tablet 10 mg PO BID PRN #30 tab 01/08/21 01/17/21 Rx alp
--- NOTE | 2021-01-17 11:22 | P.PN_ITS ---
[facility] Anesthesia Checklist - Patient Identification Patient Identification: Arm Band, Verbal (Name & ) - Structural Data Planned Operative Procedure/s: pain pump Consent for Planned Operative Procedure(s) Verified: Yes Verified Documents: Surgical Consent - Additional verifications Anesthesia Reactions: No Hx Blood Transfusions: No Blood Transfusion Reaction: No - Anesthesia Plan Anesthesia Plan: Verified ASA Class: III Anesthesia Type: MAC [facility] History Medical History: Reports:: Arrhythmia, Atrial Fibrillation, Congestive Heart Failure, Chronic Obstructive Pulmonary Disease (COPD), Coronary Artery Disease, Deep Vein Thrombosis, Gastroesophageal Reflux Disease(GERD), Hyperlipidemia, Hypertension, Myocardial Infarction, Peripheral Artery Disease Denies:: Cancer, Diabetes Mellitus Type 1, Diabetes Mellitus Type 2, Internal Pacemaker, MRSA, Seizures *Have you ever received a pneumonia vaccine?: Yes *Have you received a flu vaccine this season?: Yes Other Medical History: Reports: Arthritis, Hoarseness, Other. Denies: Blood Transfusion Reaction Anesthesia experience/problems:: none Laterality Cases: Bilateral: Tonsillectomy Other Surgeries: Yes: No Previous Surgery, Appendectomy, Cardiac Catheterization, Cholecystectomy, Colonoscopy, Coronary Stent, EGD, Hysterectomy-Total, Tubal Ligation. No: Pacemaker. Comment Only: Other (port placement) Amputation: No Fractures: Yes - *Social History Last grade of school completed: Advanced degree Smoking Status: Current some day smoker Tobacco Type: cigarettes # Packs/Day (cigarettes): 1 #Yrs smoked (if former smoker): 40 Alcohol Intake: never Alcohol Intake Frequency:: other Substance Use Type: denies use, painkillers *Occupational Status:: disabled Housing: house Household Members: other *Travel in the last 8 weeks: None Family Hx:: Unable to obtain
--- NOTE | 2021-01-17 12:02 | P.OP_ITS ---
Date of procedure: 01/17/21 Pre-op Diagnosis:: Degenerative disc disease of the lumbar spine with radiculopathy Post-op Diagnosis:: Same Procedure performed:: Placement intrathecal pain pump generator Surgeon:: Pedro Coy MD ENFORCEMENT OFFICER:: Ty Marie, Oskar Araujo, Earl Johnson, Jayden Cardona, Other Anesthesia: MAC, local Estimated blood loss (mL): 5 Operative findings:: Not applicable Operative note:: Patient was placed prone on the operating table and her back and flank regions were prepped and draped in sterile fashion. Once adequate IV sedation was obtained as well as local anesthesia a paraspinal incision was made by Dr. Baca which an intrathecal catheter was passed into the intrathecal space to the area desired by Dr. Sandoval.. Catheter fixed the paraspinal fascia with fixation devices and 2-0 Prolene suture. Right flank incision was then made under which made it was a pocket for placement of the reservoir.. The catheter was passed from the paraspinal incision to the pocket pocket incision. Catheter connected to the generator. This was placed in the pocket. CSF was aspirated from the system noting patency of the system. Both pockets irrigated with antibiotic solution. Subcutaneous tissues closed with 2-0 Vicryl. Skin closed with stitches of 4-0 nylon. Wound VAC dressings and binder is applied to the wound. The patient taught procedure well was taken recovery with stabilization. Upon recovery the patient be discharged home will follow-up in 1 week for removal of the wound VAC systems and in 2 weeks removal of sutures. Antibiotics x1 week per protocol. The patient tolerated procedure well. Condition: stable Disposition: PACU Complications:: None
== END 2021-01-17 13:20 | disposition home or self-care (01) ==
LOC: OR 07:44
PROVIDERS: PCP Family Medicine; Visit Provider Anesthesiology
PROC: (CPT 62350; principal; 2021-01-17 09:45)
DX: M51.16 Intervertebral disc disorders with radiculopathy, lumbar region (principal); K86.1 Other chronic pancreatitis; I11.0 Hypertensive heart disease with heart failure; I50.9 Heart failure, unspecified; I25.2 Old myocardial infarction; I73.9 Peripheral vascular disease, unspecified; J44.9 Chronic obstructive pulmonary disease, unspecified; I48.91 Unspecified atrial fibrillation; I25.10 Atherosclerotic heart disease of native coronary artery without angina pectoris; M19.90 Unspecified osteoarthritis, unspecified site; F41.9 Anxiety disorder, unspecified; F32.9 Major depressive disorder, single episode, unspecified
CPT/HCPCS: 62350; 62362; 80305; 96374; C1755; C1772; J1642; J3370

== ENCOUNTER 2021-01-21 18:37 | Emergency (ER) | payer MEDICARE, MEDICAID, SELFPAY ==
[2021-01-21 18:42] VITALS: BP 124/81; PULSE 79; RESP 18; TEMP 36.7; O2SAT 98; BMI 37.9
[2021-01-21 18:57] VITALS: BP 111/78; PULSE 80; O2SAT 96
--- NOTE | 2021-01-21 19:36 | HMH.EDGENADL ---
ED Disposition Clinical Impression: Other acute postprocedural pain Disposition: Home, Self-Care Condition on Discharge: Good Additional Instructions: See Dr. Emmanuel in his office tomorrow at 9 AM. Referrals: Juan C Colón MD [Primary Care Provider] - - Critical Care Critical Care Time: No Attestation: On 01/21/21, the high probability of a clinically significant, sudden or life threatening deterioration of the following system(s) required my full and direct attention, intervention and personal management. The time I documented below is in addition to time spent performing reported procedures but includes the following listed in this critical care notation. Medical Decision Making - Delroy Inquiry Pt receiving controlled substance: Yes Delroy was queried for this patient: Yes Risks and benefits of using a controlled substance: were not discussed with pt by me Vital Signs: 01/21/21 18:42 01/21/21 18:57 Temperature 98.1 F Temperature Source Oral Pulse Rate [Left Radial] 79 80 Respiratory Rate 18 Blood Pressure [Left Arm] 124/81 111/78 Blood Pressure Mean [Left Arm] 95 89 Blood Pressure Source [Left Arm] Automatic Cuff Automatic Cuff Blood Pressure Position [Left Arm] Sitting Sitting 02 Sat by Pulse Oximetry 98 96 Oxygen Delivery Method Room Air Room Air Orders (Tests/Meds): ED MEDICATIONS Discontinued Medications Generic Name Dose Route Start Last Admin Trade Name Dannyq PRN Reason Stop Dose Admin Hydromorphone HCl 2 mg 01/21/21 19:45 Hydromorphone 2mg/Ml Syringe IM 01/21/21 19:46 ONCE ONE Ondansetron HCl 4 mg 01/21/21 19:45 Ondansetron 4mg/2ml Vial IM 01/21/21 19:46 ONCE ONE - Physician Consults Physician Consulted: Cholo Time: 19:46 Reason -: Pt condition, Other (Pain mgmt) Comment/Response: Requested the patient be given a pain shot and he will see her in the clinic tomorrow at 9 AM General Adult HPI - General Chief complaint: PAIN Stated complaint: back pain Surg Wed Time Seen by Provider: 01/21/21 19:36 Mode of Arrival: Wheelchair Limitations: No Limitations Description of Symptoms (Recalled from ER Triage Doc. by RN): Pt c/o pain from incision from her pain pump that was inserted Friday of last week in her back. Pt reports pain pump was inserted per Dr. Emmanuel, states there was no medication available to put in her pain pump at the time of insertion. States she was given oxycodone 5 mg tablets, states the last one she took was at 1400 today, states it is not helping the pain. - History of Present Illness HPI narrative: Complains of pain from pain pump insertion which she had on Friday [address] Emmanuel. She says the medication for her pain pump could not be delivered because of bad roads. She was prescribed oxycodone 5 mg, but says that it is not working. She says that she called Dr. Emmanuel this afternoon who told her to come to the emergency room and we would take care of her . It is noted on her collective notification that she was also seen at [facility] emergency department today. The patient did not relate this to nursing or to me. When I asked her about it she says that she went there and they told her that she would have to come here for treatment. She says she then went home and called Dr. Emmanuel. When I speak with Dr. Emmanuel he also tells me that the patient did not inform him that she has been at [facility] emergency department. Lala, emergency department nurse from [facility], is here in our emergency department right now and states that she was there when the patient was there and the patient did not receive any narcotics at their facility. Dr. Emmanuel confirms the patient's history her pain medication not being available for the pump. He says he is given her 2 prescriptions for oxycodone about since the procedure. - Related Data Home Medications Medication Instructions Recorded Confirmed Omeprazole Magnesium [Prilosec Otc 20
[2021-01-21 20:07] VITALS: BP 123/79; PULSE 80; RESP 16; TEMP 36.7; O2SAT 96
== END 2021-01-21 20:09 | disposition home or self-care (01) ==
PROVIDERS: Emergency Provider Emergency Medicine; PCP Family Medicine
DX: G89.18 Other acute postprocedural pain (principal); M51.36 Other intervertebral disc degeneration, lumbar region; I10 Essential (primary) hypertension; I48.91 Unspecified atrial fibrillation; J44.9 Chronic obstructive pulmonary disease, unspecified; I25.10 Atherosclerotic heart disease of native coronary artery without angina pectoris; K21.9 Gastro-esophageal reflux disease without esophagitis; F41.8 Other specified anxiety disorders; I25.2 Old myocardial infarction; E78.5 Hyperlipidemia, unspecified; F17.210 Nicotine dependence, cigarettes, uncomplicated; Z88.5 Allergy status to narcotic agent; Z88.8 Allergy status to other drugs, medicaments and biological substances; Z79.899 Other long term (current) drug therapy
CPT/HCPCS: 96372; 99282; J2405

== ENCOUNTER 2021-01-22 10:00 | Day surgery (SDC) | payer MEDICARE, MEDICAID, SELFPAY ==
[2021-01-22 09:15] VITALS: BP 139/71; PULSE 95; RESP 22; TEMP 36.4; O2SAT 90; BMI 37.9
[2021-01-22 09:40] VITALS: BP 135/77; PULSE 95; RESP 20; TEMP 36.4; O2SAT 90
[2021-01-22 09:50] VITALS: BP 138/77; PULSE 95; RESP 18; O2SAT 90
[2021-01-22 10:20] VITALS: BP 130/70; PULSE 90; RESP 20; O2SAT 91
--- NOTE | 2021-01-22 11:42 | HMH.PMPROC ---
- Procedure Date: 01/22/21 Time: 09:30 Anesthesiologist:: Noy Morin APRN Complications:: None Pre-procedure Diagnosis:: Degenerative disc disease lumbar spine lumbar radiculopathy and pancreatitis Post-procedure Diagnosis:: Same Indications for Procedure:: Patient is a very pleasant 60-year-old white female who presents today for intrathecal pain pump refill and reprogram. Patient had intrathecal pain pump placed a week ago. Due to weather the medication was not delivered we will fill her pump today with bupivacaine. Patient rates her pain a 9 out of 10. Patient's wound VAC was removed no sign symptoms of infection noted stitches intact. Procedure Details:: Informed consent was obtained and the risk and benefits of the procedure were explained to the patient. The patient was taken to the procedure room where noninvasive monitoring was placed including noninvasive blood pressure cuff and pulse oximeter. Patient's pump was interrogated. The area over the pump was cleansed with chlorhexidine as a cleansing solution. In sterile fashion the pump was accessed with a 22-gauge needle. Approximately 9 mL's were removed of the pump solution and discarded appropriately. The pump was then refilled with 20 mL's of bupivacaine 5 mg/mL. The needle was withdrawn and a bandage was placed over the puncture site. The infusion rate was reprogrammed to start at 2.5 mg/day. The patient tolerated the procedure well. Patient was given a one-time bolus of 0.5 mg this successfully took her pain down to a 7 out of 10. Patient's PTC was set up at 0.5 mg every 4 hours as needed Plan and Disposition:: I will see the patient back in 2 weeks for stitch removal. Patient's been instructed to call the office if she has any issues prior to her next appointment. Dr. Emmanuel has reviewed this note and agrees with this plan of care. This note was dictated using voice recognition software and may contain errors or omissions
== END 2021-01-22 10:20 | disposition home or self-care (01) ==
LOC: SC.PAINP 10:02
PROVIDERS: PCP Family Medicine; Visit Provider Clinical Nurse Specialist Family Health
DX: M51.16 Intervertebral disc disorders with radiculopathy, lumbar region (principal); K86.1 Other chronic pancreatitis; Z45.1 Encounter for adjustment and management of infusion pump; J44.9 Chronic obstructive pulmonary disease, unspecified; I10 Essential (primary) hypertension; E78.5 Hyperlipidemia, unspecified; Z72.0 Tobacco use; Z88.6 Allergy status to analgesic agent; Z82.49 Family history of ischemic heart disease and other diseases of the circulatory system
CPT/HCPCS: 62370

== ENCOUNTER 2021-01-26 18:13 | Emergency (ER) | payer MEDICARE, MEDICAID, SELFPAY ==
[2021-01-26 18:15] VITALS: BP 155/100; BP 162/91; PULSE 52; PULSE 84; RESP 17; TEMP 36.8; O2SAT 92; O2SAT 98; BMI 42.6
[2021-01-26 19:44] LABS: Basophils # 0.1 K/mm3 (0-0.2); Basophils % 0.6 % (0.1-2.0); Eosinophils # 0.5 K/mm3 (0.0-0.4); Eosinophils % 4.4 % (0.1-12.0); Hemoglobin 11.8 g/dL (12.2-16.2); Lymphocytes # 3.5 K/mm3 (0.7-4.5); Lymphocytes % 29.2 % (10-50); Mean Corpuscular Hemoglobin 27.6 pg (27.0-31.2); Mean Corpuscular Volume 89.1 fl (81-99); Mean Platelet Volume 7.9 fl (7.4-10.4); Monocytes # 0.5 K/mm3 (0.1-1.0); Monocytes % 4.5 % (1.7-9.3); Neutrophils # 7.2 K/mm3 (1.8-7.8); Neutrophils % 61.3 % (37.0-80.0); Platelet Count 407 K/mm3 (142-424); Red Blood Count 4.26 M/mm3 (4.20-5.40); White Blood Count 11.8 K/mm3 (4.8-10.8)
--- NOTE | 2021-01-26 19:44 | HMH.EDGENADL ---
ED Disposition Clinical Impression: Visit for wound check Disposition: Home, Self-Care Condition on Discharge: Good Referrals: Juan C Colón MD [Primary Care Provider] - Bakari Emmanuel MD [Staff Physician] - 01/29/21 8:00 am Time of Disposition: 20:01 - Critical Care Critical Care Time: No Attestation: On 01/26/21, the high probability of a clinically significant, sudden or life threatening deterioration of the following system(s) required my full and direct attention, intervention and personal management. The time I documented below is in addition to time spent performing reported procedures but includes the following listed in this critical care notation. Medical Decision Making - Medical Records Medical records reviewed: Yes: I reviewed the patient's medical records. - Delroy Inquiry Pt receiving controlled substance: No Vital Signs: 01/26/21 18:15 Temperature 98.2 F Temperature Source Oral Pulse Rate [Left Radial] 84 Respiratory Rate 17 Blood Pressure [Right Arm] 155/100 H Blood Pressure Mean [Right Arm] 118 Blood Pressure Source [Right Arm] Automatic Cuff Blood Pressure Position [Right Arm] Sitting 02 Sat by Pulse Oximetry 98 Oxygen Delivery Method Room Air - Lab Data Lab results reviewed: Yes: I reviewed the patient's lab results. Lab Results 01/26/21 19:15: WBC 11.8 H, RBC 4.26, Hgb 11.8 L, Hct 38.0, MCV 89.1, MCH 27.6, MCHC 31.0 L, RDW 15.0, Plt Count 407, MPV 7.9, Neut % (Auto) 61.3, Lymph % (Auto) 29.2, [place] % (Auto) 4.5, Eos % (Auto) 4.4, Baso % (Auto) 0.6, Neut # (Auto) 7.2, Lymph # (Auto) 3.5, [place] # (Auto) 0.5, Eos # (Auto) 0.5 H, Baso # (Auto) 0.1 Result diagrams: 01/26/21 19:15 Medical Decision Narrative: 60yo F evaluated for postoperative pain. There is no sign of acute infection on physical exam. The patient's white count is lower now than it was last time. Case was discussed with Dr. Emmanuel who states he has no concern for operative complication at this time based on my physical exam. He reports the patient is appropriate for discharge home. Agrees she does not need any further pain medication. States he will see the patient on Friday in the clinic. General Adult HPI - General Chief complaint: PAIN Stated complaint: 021 Pain pump , insiccion bleeding and infected Time Seen by Provider: 01/26/21 19:56 Mode of Arrival: Family Vehicle Limitations: No Limitations Description of Symptoms (Recalled from ER Triage Doc. by RN): Patient states she had a pain pump placed to back on January [address] Padron, states now area is red/swollen and possibly infected . Patient also concerned that pain pump isn't dispensing medications as it should. - History of Present Illness HPI narrative: 60yo F presents the emergency department secondary to postoperative complications. Patient recently had a pain pump placed at this facility roughly 8 days ago. Patient reports keeping her follow-up appointment postoperatively but having problems today. She reports she called the surgeon's office and was told to report emergency department. She reports bloody discharge, pain, warmth about the surgical incision sites. States she needs something additional for pain at this time. - Related Data Home Medications Medication Instructions Recorded Confirmed Omeprazole Magnesium [Prilosec Otc 20 mg PO DAILY 06/22/20 01/26/21 20mg Tab] promethazine 25 mg tablet 25 mg PO Q6H PRN tab 07/17/20 01/26/21 atorvastatin 40 mg tablet 40 mg PO HS tab 10/09/20 01/26/21 metoprolol succinate 25 mg 12.5 mg PO DAILY tab 10/09/20 01/26/21 tablet,extended release 24 hr Albuterol Sulfate [Proventil Hfa] 1 mg .ROUTE .COMPLEX PRN 10/17/20 01/26/21 Potassium Chloride 20 meq PO DAILY 10/17/20 01/26/21 Sulfamethoxazole/Trimethoprim 1 each PO BID 01/22/21 01/26/21 [Bactrim DS tablet] Montelukast Sodium [Singulair] See Rx Instructions .ROUTE .COMPLEX 01/26/21 01/26/21 Previous Rx's Medication Instructions Record
[2021-01-26 20:17] VITALS: BP 170/98; PULSE 68; RESP 18; TEMP 36.7; O2SAT 96
== END 2021-01-26 20:18 | disposition home or self-care (01) ==
PROVIDERS: Emergency Provider Family Medicine; PCP Family Medicine
DX: G89.18 Other acute postprocedural pain (principal); J44.9 Chronic obstructive pulmonary disease, unspecified; I48.91 Unspecified atrial fibrillation; I25.10 Atherosclerotic heart disease of native coronary artery without angina pectoris; K21.9 Gastro-esophageal reflux disease without esophagitis; I10 Essential (primary) hypertension; I25.2 Old myocardial infarction; F17.290 Nicotine dependence, other tobacco product, uncomplicated; Z79.899 Other long term (current) drug therapy; Z88.5 Allergy status to narcotic agent; Z88.8 Allergy status to other drugs, medicaments and biological substances
CPT/HCPCS: 85025; 96374; 99282; J1642

== ENCOUNTER → 2021-02-01 09:22 | Outpatient (POV) | payer MEDICARE, MEDICAID, SELFPAY ==
[2021-02-01 09:47] VITALS: BP 148/73; PULSE 69; RESP 18; O2SAT 98; BMI 37.9
--- NOTE | 2021-04-26 11:17 | P.CONS_ITS ---
[facility] Pain Management SOAP Note Subjective:: Patient is a pleasant 60-year-old white female who presents today for follow-up after an ER visit. She recently had an intrathecal pain pump implanted. She presented to the emergency room for concerns of infection at her incision site. After further evaluation the patient was informed that there were no signs or symptoms of infection. The ER doctor did consult with Dr. Meza and did not feel the patient had any infection at the incision site. She is here today for reevaluation. She rates her pain a 5 out of 10. Review of Systems General: No recent weight changes, no fever, no sleep disturbances Respiratory: No cough, no shortness of air, no recurring pulmonary infections Cardiovascular/peripheral vascular: No chest pain, no palpitations, no edema, no shortness of breath Gastrointestinal: No new onset incontinence, normal bowel movements reported Genitourinary: No new onset incontinence Musculoskeletal: Neck low back pain Psychiatric: Normal mood/affect Neurological: [Denies weakness in extremities], [denies balance issues] Objective:: Physical exam General: Alert and oriented x3, no acute distress, pleasant and cooperative, [on room air] Lungs: Respirations even and unlabored, symmetrical chest expansion Eyes: PERRL Musculoskeletal: Flexion and extension of lumbar spine somewhat guarded secondary to pain, deep tendon reflexes normal, strength in upper and lower extremities [5/5], [abnormal gait noted] Neurological: Speech clear, 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 We will plan to follow-up with her in 2 weeks for reevaluation. She has been instructed to contact clinic if she has any concerns before next appointment. Dr. Emmanuel has reviewed this note and agrees with this plan of care. This note was dictated using voice recognition software and make contain errors or omissions. [facility] History I have reviewed the patient's past medical history: Yes Medical History: Reports:: Arrhythmia, Atrial Fibrillation, Congestive Heart Failure, Chronic Obstructive Pulmonary Disease (COPD), Coronary Artery Disease, Deep Vein Thrombosis, Gastroesophageal Reflux Disease(GERD), Hyperlipidemia, Hypertension, Myocardial Infarction, Peripheral Artery Disease Denies:: Cancer, Diabetes Mellitus Type 1, Diabetes Mellitus Type 2, Internal Pacemaker, MRSA, Seizures *Have you ever received a pneumonia vaccine?: No *Have you received a flu vaccine this season?: No Other Medical History: Reports: Arthritis, Hoarseness, Other. Denies: Blood Transfusion Reaction Laterality Cases: Bilateral: Tonsillectomy Other Surgeries: Yes: No Previous Surgery, Appendectomy, Cardiac Catheterization, Cholecystectomy, Colonoscopy, Coronary Stent, EGD, Hysterectomy-Total, Tubal Ligation, Other (pain pump insertion). No: Pacemaker Amputation: No Fractures: Yes - *Social History Smoking Status: Current every day smoker Tobacco Type: e-cigarettes # Packs/Day (cigarettes): 1 #Yrs smoked (if former smoker): 40 Alcohol Intake: never Alcohol Intake Frequency:: other Substance Use Type: marijuana, crack/cocaine *Occupational Status:: unemployed, disabled Housing: house Household Members: other *Travel in the last 8 weeks: None Family Hx:: Unable to obtain
== END ==
PROVIDERS: PCP Family Medicine; Visit Provider Clinical Nurse Specialist Family Health
DX: M51.16 Intervertebral disc disorders with radiculopathy, lumbar region (principal)
CPT/HCPCS: 99212; G0463

== ENCOUNTER 2021-02-05 14:25 | Day surgery (SDC) | payer MEDICARE, MEDICAID, SELFPAY ==
[2021-02-05 14:32] VITALS: BP 133/76; PULSE 120; RESP 20; TEMP 37; O2SAT 96; BMI 37.9
[2021-02-05 14:48] VITALS: BP 136/95; PULSE 69; RESP 18
[2021-02-05 15:02] VITALS: BP 140/88; PULSE 90; RESP 18; O2SAT 99
--- NOTE | 2021-02-05 15:11 | HMH.PMPROC ---
- Procedure Date: 02/05/21 Time: 15:12 Anesthesiologist:: Noy Morin APRN Complications:: None Pre-procedure Diagnosis:: Degenerative disc disease lumbar spine and pancreatitis Post-procedure Diagnosis:: Same Indications for Procedure:: Patient is a pleasant 60-year-old white female who presents today for follow-up. Patient has an intrathecal bupivacaine pump placed. She is currently going at 2.5 mg/day. She is doing extremely well rating her pain a 0 out of 10 today. She states that she is much more mobile and active. She has no complaints today she does not need any changes. [facility] #[id number] reviewed and appropriate. Procedure Details:: Informed consent was obtained and the risk and benefits of the procedure were explained to the patient. The patient was taken to the procedure room where noninvasive monitoring was placed including noninvasive blood pressure cuff and pulse oximeter. Patient's pump was interrogated. The area over the pump was cleansed with chlorhexidine as a cleansing solution. In sterile fashion the pump was accessed with a 22-gauge needle. Approximately 8 mL's were removed of the pump solution and discarded appropriately. The pump was then refilled with 20 mL's of bupivacaine 5 mg/mL. The needle was withdrawn and a bandage was placed over the puncture site. The infusion rate was reprogrammed to continue at 2.5 mg/day. The patient tolerated the procedure well. Plan and Disposition:: See the patient back at her next intrathecal pain pump refill and reprogram she has been instructed to call the office if she has any issues prior to her next appointment. Dr. Emmanuel has reviewed this note and agrees with this plan of care. This note was dictated using voice recognition software and may contain errors or omissions
[2021-02-05 15:16] VITALS: BP 148/89; PULSE 89; RESP 20; TEMP 37; O2SAT 96
== END 2021-02-05 15:20 | disposition home or self-care (01) ==
LOC: SC.PAINP 14:27
PROVIDERS: PCP Family Medicine; Visit Provider Clinical Nurse Specialist Family Health
DX: M51.36 Other intervertebral disc degeneration, lumbar region (principal); K85.90 Acute pancreatitis without necrosis or infection, unspecified; I25.10 Atherosclerotic heart disease of native coronary artery without angina pectoris; E78.5 Hyperlipidemia, unspecified; I10 Essential (primary) hypertension; J44.9 Chronic obstructive pulmonary disease, unspecified; F41.9 Anxiety disorder, unspecified; F32.9 Major depressive disorder, single episode, unspecified; Z86.73 Personal history of transient ischemic attack (TIA), and cerebral infarction without residual deficits; Z95.818 Presence of other cardiac implants and grafts; Z88.6 Allergy status to analgesic agent; Z88.8 Allergy status to other drugs, medicaments and biological substances
CPT/HCPCS: 95991

== ENCOUNTER 2021-02-15 18:53 | Emergency (ER) | payer MEDICARE, MEDICAID, SELFPAY ==
[2021-02-15 19:09] VITALS: BP 138/80; PULSE 94; RESP 18; TEMP 36.9; O2SAT 96; BMI 37.9
--- NOTE | 2021-02-15 19:42 | HMH.EDGENADL ---
ED Disposition Condition on Discharge: Fair - Critical Care Critical Care Time: No <ZainaRusty pastor - Last Filed: 02/15/21 20:07> <Sea So - Last Filed: 02/15/21 21:09> Clinical Impression: Headache Qualifiers: Headache type: unspecified Headache chronicity pattern: acute headache Intractability: intractable Qualified Code(s): R51.9 - Headache, unspecified Disposition: Home, Self-Care Instructions: DI for Headache Additional Instructions: see dr solares at 0900 Referrals: Juan C Colón MD [Primary Care Provider] - Attestation: On 02/15/21, the high probability of a clinically significant, sudden or life threatening deterioration of the following system(s) required my full and direct attention, intervention and personal management. The time I documented below is in addition to time spent performing reported procedures but includes the following listed in this critical care notation. Medical Decision Making - Delroy Inquiry Pt receiving controlled substance: Yes Delroy was queried for this patient: Yes Risks and benefits of using a controlled substance: were not discussed with pt by me Comment: She was receiving oxycodone until her pain pump was filled, none since - Lab Data Result diagrams: 02/15/21 19:40 02/15/21 19:40 <Rusty Patel - Last Filed: 02/15/21 20:07> - Lab Data Result diagrams: 02/15/21 19:40 02/15/21 19:40 - CT Data CT Scan: Head Time Received: 21:[address] Reviewed: Yes: I have viewed the radiologist's interpretation Preliminary Findings: Normal/NAD - Physician Consults Physician Consulted: beck Reason -: Pt condition <Sea So - Last Filed: 02/15/21 21:09> Vital Signs: 02/15/21 19:09 Temperature 98.4 F Temperature Source Oral Pulse Rate [Right] 94 H Respiratory Rate 18 Blood Pressure [Right Arm] 138/80 Blood Pressure Mean [Right Arm] 99 Blood Pressure Source [Right Arm] Manual Cuff/ Auscultation Blood Pressure Position [Right Arm] Sitting 02 Sat by Pulse Oximetry 96 Oxygen Delivery Method Nasal Cannula Oxygen Flow Rate (LPM) 2.5 - Lab Data Lab Results 02/15/21 19:40: WBC 12.7 H, RBC 4.09 L, Hgb 11.5 L, Hct 36.5 L, MCV 89.2, MCH 28.0, MCHC 31.4 L, RDW 15.2, Plt Count 317, MPV 8.7, Neut % (Auto) 62.8, Lymph % (Auto) 27.5, [place] % (Auto) 5.0, Eos % (Auto) 4.1, Baso % (Auto) 0.6, Neut # (Auto) 8.0 H, Lymph # (Auto) 3.5, [place] # (Auto) 0.6, Eos # (Auto) 0.5 H, Baso # (Auto) 0.1, ESR 29 02/15/21 19:40: Sodium 135 L, Potassium 4.2, Chloride 100, Carbon Dioxide 28, Anion Gap 11.2, BUN 15, Creatinine 1.00, Estimated Creat Clear 101, Estimated GFR 57 L, Est GFR ( Amer) 68, Glucose 162 H, Calcium 9.0, C-Reactive Protein 48.0 H Orders (Tests/Meds): ED MEDICATIONS Generic Name Dose Route Start Last Admin Trade Name Freq PRN Reason Stop Dose Admin Sodium Chloride 1,000 mls @ 999 mls/hr 02/15/21 19:45 02/15/21 19:41 Sod Chlor 0.9% 1000ml Bag IV 02/15/21 20:45 999 mls/hr .Q1H1M CRISTOPHER Administration Discontinued Medications Generic Name Dose Route Start Last Admin Trade Name Freq PRN Reason Stop Dose Admin Diphenhydramine HCl 50 mg 02/15/21 19:40 02/15/21 19:42 Diphenhydramine 50mg/Ml Vial IV 02/15/21 19:41 50 mg ONCE ONE Administration Hydromorphone HCl 1 mg 02/15/21 19:52 02/15/21 20:01 Hydromorphone 2mg/Ml Syringe IV 02/15/21 19:53 1 mg ONCE ONE Administration Ondansetron HCl 4 mg 02/15/21 19:40 02/15/21 19:41 Ondansetron 4mg/2ml Vial IV 02/15/21 19:41 4 mg ONCE ONE Administration ORDERS Category Date Time Status CT head/brain wo con Stat Cat Scan 02/15/21 19:53 Taken Medical Decision Narrative: 8:00 PM: At shift change, I have discussed the patient with Dr. So, who will assume care of the patient at this time. I have discussed all clinical information including history, physical and diagnostic study results. Preliminary diagnoses based on information available at this point hav
--- NOTE | 2021-02-15 19:47 | PC.NURSE ---
Dr Patel consulted with Dr Marc
--- NOTE | 2021-02-15 19:53 | CT_ITS ---
PROCEDURE: CT HEAD/BRAIN WO CON CLINICAL INDICATION: headache COMPARISON: CT CT HEAD/BRAIN WO CON from 07/11/2020 TECHNIQUE: Axial images obtained. All CT scans at the facility use one or more dose reduction, viz: automated exposure control, ma/kV adjustment per patient size (including targeted exams where dose is matched to indication, i.e. head), or iterative reconstruction technique. FINDINGS: No midline shift, mass effect, intracranial hemorrhage, hydrocephalus, or extra-axial fluid collection is evident. Hypodensity noted in the periventricular area right not significantly change consistent with remote ischemic changes/small vessel disease. The calvarium has an unremarkable appearance. Small bilateral mastoid effusions noted no sinus air-fluid level. IMPRESSION: 1. No acute intracranial findings with no significant change from 07/11/2020. Suspect remote ischemic change in the right periventricular white matter. 2. Small mastoid effusions Dictated by: Wili Arriola MD 02/16/2021 07:26 Wili Arriola MD in [place] 02/16/2021 07:26
[2021-02-15 20:02] LABS: Basophils # 0.1 K/mm3 (0-0.2); Basophils % 0.6 % (0.1-2.0); Chloride 100 mmol/L (98-107); Eosinophils # 0.5 K/mm3 (0.0-0.4); Eosinophils % 4.1 % (0.1-12.0); Hematocrit 36.5 % (37.0-47.0); Hemoglobin 11.5 g/dL (12.2-16.2); Lymphocytes # 3.5 K/mm3 (0.7-4.5); Lymphocytes % 27.5 % (10-50); Mean Corpuscular HGB Conc 31.4 g/dL (31.8-35.4); Mean Corpuscular Volume 89.2 fl (81-99); Mean Platelet Volume 8.7 fl (7.4-10.4); Monocytes # 0.6 K/mm3 (0.1-1.0); Neutrophils % 62.8 % (37.0-80.0); Platelet Count 317 K/mm3 (142-424); Red Blood Count 4.09 M/mm3 (4.20-5.40); Red Cell Distribution Width 15.2 % (11.5-17.5); White Blood Count 12.7 K/mm3 (4.8-10.8)
[2021-02-15 20:03] LABS: Potassium 4.2 mmoL/L (3.5-5.1); Sodium 135 mmol/L (136-145)
[2021-02-15 20:06] LABS: Anion Gap 11.2 mEq/L (5-15); Blood Urea Nitrogen 15 mg/dl (7-17); Carbon Dioxide 28 mmol/L (22.0-30.0); Creatinine Clearance Estimated 101 mL/min (50-200); Estimated Glomerular Filt Rate 57 ml/min (>60); GFR (African American) 68 ML/MIN (>60); Glucose 162 mg/dl (74-100)
[2021-02-15 20:27] LABS: Erythrocyte Sedimentation Rate 29 mm/hr (0-30)
[2021-02-15 21:57] VITALS: BP 126/74; PULSE 82; RESP 12; TEMP 36.9; O2SAT 95
== END 2021-02-15 21:59 | disposition home or self-care (01) ==
PROVIDERS: Emergency Provider Emergency Medicine; PCP Family Medicine
DX: G43.109 Migraine with aura, not intractable, without status migrainosus (principal); E11.9 Type 2 diabetes mellitus without complications; I10 Essential (primary) hypertension; K21.9 Gastro-esophageal reflux disease without esophagitis; I48.91 Unspecified atrial fibrillation; J44.9 Chronic obstructive pulmonary disease, unspecified; I25.10 Atherosclerotic heart disease of native coronary artery without angina pectoris; E78.5 Hyperlipidemia, unspecified; I25.2 Old myocardial infarction; F17.290 Nicotine dependence, other tobacco product, uncomplicated; Z88.5 Allergy status to narcotic agent; Z88.8 Allergy status to other drugs, medicaments and biological substances; Z79.899 Other long term (current) drug therapy
CPT/HCPCS: 70450; 80048; 85025; 85651; 86140; 96365; 96375; 99283; J1642; J2405

== ENCOUNTER 2021-02-17 17:12 | Emergency (ER) | payer MEDICARE, MEDICAID, SELFPAY ==
[2021-02-17 17:13] VITALS: BP 115/84; PULSE 98; RESP 18; TEMP 36.8; O2SAT 98; BMI 37.9
[2021-02-17 17:42] VITALS: BP 163/108; PULSE 96; O2SAT 97
--- NOTE | 2021-02-17 18:23 | HMH.EDGENADL ---
ED Disposition Clinical Impression: Headache Qualifiers: Headache type: unspecified Headache chronicity pattern: acute headache Intractability: intractable Qualified Code(s): R51.9 - Headache, unspecified Disposition: Home, Self-Care Condition on Discharge: Fair Instructions: DI for Headache Additional Instructions: Take oxycodone for pain. See Dr. Emmanuel on Friday. Additional instructions for HEADACHE: Return immediately if worsening headache, vomiting, problems with vision or speech, fever, numbness or weakness of the extremities, neck pain or stiffness. Prescriptions: Oxycodone HCl [Oxycodone 5mg tab (IR)] 5 mg PO Q6HP PRN #6 tab PRN Reason: Moderate To Severe Pain Transmission Status: Received by [id number] Oxycodone HCl [Oxycodone 5mg tab (IR)] 5 mg PO Q6HP PRN #6 tablet PRN Reason: Moderate To Severe Pain Transmission Status: Received by [facility]/pharmacy #[id number] Referrals: Juan C Colón MD [Primary Care Provider] - - Critical Care Critical Care Time: No Attestation: On 02/17/21, the high probability of a clinically significant, sudden or life threatening deterioration of the following system(s) required my full and direct attention, intervention and personal management. The time I documented below is in addition to time spent performing reported procedures but includes the following listed in this critical care notation. Medical Decision Making - Medical Records Medical records reviewed: Yes: I reviewed the patient's medical records. - Delroy Inquiry Pt receiving controlled substance: Yes Delroy was queried for this patient: Yes Risks and benefits of using a controlled substance: were not discussed with pt by me Vital Signs: 02/17/21 17:13 02/17/21 17:42 02/17/21 18:57 Temperature 98.3 F 98.3 F Temperature Source Oral Oral Pulse Rate 96 H 90 Pulse Rate [Right] 98 H Respiratory Rate 18 20 Blood Pressure 163/108 H 163/108 H Blood Pressure [Right Arm] 115/84 Blood Pressure Mean [Right Arm] 94 Blood Pressure Source Automatic Cuff Automatic Cuff Blood Pressure Position Sitting Sitting 02 Sat by Pulse Oximetry 98 97 Oxygen Delivery Method Nasal Cannula Room Air Oxygen Flow Rate (LPM) 2 Orders (Tests/Meds): ED MEDICATIONS Discontinued Medications Generic Name Dose Route Start Last Admin Trade Name Freq PRN Reason Stop Dose Admin Hydromorphone HCl 2 mg 02/17/21 18:33 02/17/21 18:40 Hydromorphone 2mg/Ml Syringe IM 02/17/21 18:34 2 mg ONCE ONE Administration Promethazine HCl 25 mg 02/17/21 18:33 02/17/21 18:40 Promethazine Hcl 25mg/Ml 1ml Vial IM 02/17/21 18:34 25 mg ONCE ONE Administration Sodium Chloride 25 ml 02/17/21 18:33 02/17/21 18:40 Sodium Chloride 0.9% 25ml Bag IV 02/17/21 18:34 Not Given ONCE ONE Medical Decision Narrative: This is the third time that I have seen the patient for a pain complaint since she has had her pain pump placed. This will be the third time that I will be treating her with controlled substances for these complaints. I have reservations about continuing to treat her with controlled substance pain medications on repeated emergency department visits. She has recently had her oxycodone discontinued by her primary care provider, she has an established pain management provider, she failed to follow-up with her pain management provider yesterday and now returns to the emergency department for the same condition, she is also on benzodiazepine medication, a potentially dangerous combination with opioids. I have advised her that I would give her a pain shot today and give her a rx for a limited supply of pain medication to last until Friday when she can be seen by Dr. Emmanuel, but for future similar pain related complaints I would not be administering or prescribing controlled substances. The patient became angry at this, accusing me of being mean. I explained to her that I was simply informing her of what he
--- NOTE | 2021-02-17 18:29 | PC.NURSE ---
Pt is upset due to the doctor explaining to the pt that today he would treat her with pain medicine and give her a po pain medicine to get her to the next doctor appt although the next time he would not be giving her pain medicine due to her pain pump. Pt became very upset and was yelling and crying on the phone. Entered the room to further evaluate the situation. PT came into the room at this time and pt is throwing her purse and falling back on the bed stating she is calling her director of golf for how she was treated and that she wanted to speak to the hospitalist. Screaming that the doctor was being mean and saying he wasn't going to treat her. Educated the pt and the that the doctor stated that he was going to give the pt a pain shot this time and a take home pain medicine to get her to next appt with pain management but that the next time the pt came in the ER for this complaint he would not be getting narcotics due to the fact he has seen her two times prior to this visit and was given narcotics at that time. Pt started screaming see he said that if I come back, he isn't going to treat me. Re educated the and pt that no the doctor did not say that he was not going to treat her the next time although he would not be giving narcotics after this visit. Pt and calm at this time and agreeable to the plan at this time.
[2021-02-17 18:57] VITALS: BP 163/108; PULSE 90; RESP 20; TEMP 36.8; O2SAT 97
== END 2021-02-17 18:59 | disposition home or self-care (01) ==
PROVIDERS: Emergency Provider Emergency Medicine; PCP Family Medicine
DX: R51.9 Headache, unspecified (principal); M51.36 Other intervertebral disc degeneration, lumbar region; K86.1 Other chronic pancreatitis; J44.9 Chronic obstructive pulmonary disease, unspecified; I25.10 Atherosclerotic heart disease of native coronary artery without angina pectoris; E11.9 Type 2 diabetes mellitus without complications; K21.9 Gastro-esophageal reflux disease without esophagitis; I10 Essential (primary) hypertension; E78.5 Hyperlipidemia, unspecified; I25.2 Old myocardial infarction; Z88.5 Allergy status to narcotic agent; Z79.899 Other long term (current) drug therapy
CPT/HCPCS: 96372; 99281

== ENCOUNTER 2021-02-24 18:15 | Emergency (ER) | payer MEDICARE, MEDICAID, SELFPAY ==
[2021-02-24 18:16] VITALS: BP 117/76; PULSE 80; RESP 20; O2SAT 100; BMI 37.8
--- NOTE | 2021-02-24 18:33 | HMH.EDGENADL ---
ED Disposition Clinical Impression: Migraine Qualifiers: Migraine type: without aura Status migrainosus presence: without status migrainosus Intractability: not intractable Qualified Code(s): G43.009 - Migraine without aura, not intractable, without status migrainosus Disposition: Home, Self-Care Condition on Discharge: Good Referrals: Juan C Colón MD [Primary Care Provider] - 3 days Time of Disposition: 20:11 - Critical Care Critical Care Time: No Attestation: On 02/24/21, the high probability of a clinically significant, sudden or life threatening deterioration of the following system(s) required my full and direct attention, intervention and personal management. The time I documented below is in addition to time spent performing reported procedures but includes the following listed in this critical care notation. Medical Decision Making - Delroy Inquiry Pt receiving controlled substance: No Vital Signs: 02/24/21 18:16 Pulse Rate [Left Radial] 80 Respiratory Rate 20 Blood Pressure [Right Arm] 117/76 Blood Pressure Mean [Right Arm] 89 Blood Pressure Source [Right Arm] Automatic Cuff Blood Pressure Position [Right Arm] Sitting 02 Sat by Pulse Oximetry 100 Oxygen Delivery Method Room Air Orders (Tests/Meds): ED MEDICATIONS Generic Name Dose Route Start Last Admin Trade Name Freq PRN Reason Stop Dose Admin Sodium Chloride 1,000 mls @ 999 mls/hr 02/24/21 19:00 02/24/21 19:39 Sod Chlor 0.9% 1000ml Bag IV 02/24/21 20:00 999 mls/hr .Q1H1M CRISTOPHER Administration Discontinued Medications Generic Name Dose Route Start Last Admin Trade Name Freq PRN Reason Stop Dose Admin Haloperidol Lactate 1 mg 02/24/21 18:53 02/24/21 19:39 Haloperidol Lactate 5 Mg/Ml Vial IV 02/24/21 18:54 1 mg ONCE ONE Administration Medical Decision Narrative: 60yo F evaluated for migraine. Differential diagnosis includes was not limited to: Spontaneous intracranial bleed, sinusitis, tension headache, cluster headache, meningitis, encephalitis, retropharyngeal abscess, CVA, space-occupying lesion, hypertensive emergency, depression. Patient is in no acute distress on initial evaluation. She states she normally gets Dilaudid, Phenergan, IV fluids. Discussed with the patient that opiates are not recommended for the treatment of migraine headache. Agreed to treat the patient with fluids and other medications but inform her she would not be receiving opiates for her migraine from myself. Patient states this is okay and she is interested in proceeding with treatment. Patient has IV fluids running at this time is received her Haldol. She is drinking a Coca-Cola at bedside. Patient is appropriate and stable for discharge and she is tolerating p.o. at this time. We will allow her fluids to continue running and then she can return home. General Adult HPI - General Stated complaint: LEON Time Seen by Provider: 02/24/21 18:33 Mode of Arrival: Ambulatory Source of Information: Patient - History of Present Illness HPI narrative: 60yo F with extensive past medical history, including chronic pain, reports the emergency department secondary to migraine. Patient states she has a history of migraines but they improved after having spinal fusion. She states she is now had 3 migraines in 2 weeks. She states in the past she has been treated with IV fluids, Dilaudid, Phenergan. Patient states she is having nausea with vomiting and diarrhea. She states her migraine is between her temples and radiating back. She denies any fever, recent known sick contact. - Related Data Home Medications Medication Instructions Recorded Confirmed Omeprazole Magnesium [Prilosec Otc 20 mg PO DAILY 06/22/20 02/15/21 20mg Tab] atorvastatin 40 mg tablet 40 mg PO HS tab 10/09/20 02/15/21 metoprolol succinate 25 mg 12.5 mg PO DAILY tab 10/09/20 02/15/21 tablet,extended release 24 hr Albuterol Sulfate [Proventil Hfa] 1 mg .ROUTE Q4-6H P
[2021-02-24 19:30] VITALS: BP 98/58; PULSE 77; O2SAT 96
[2021-02-24 20:00] VITALS: BP 116/74; PULSE 77; O2SAT 99
[2021-02-24 20:05] VITALS: BP 106/68; PULSE 79; RESP 20; TEMP 36.7; O2SAT 100
[2021-02-24 20:31] VITALS: BP 103/65; PULSE 76; O2SAT 100
== END 2021-02-24 20:05 | disposition home or self-care (01) ==
PROVIDERS: Emergency Provider Family Medicine; PCP Family Medicine
DX: G43.009 Migraine without aura, not intractable, without status migrainosus (principal); I10 Essential (primary) hypertension; E78.5 Hyperlipidemia, unspecified; I25.10 Atherosclerotic heart disease of native coronary artery without angina pectoris; I48.91 Unspecified atrial fibrillation; I50.9 Heart failure, unspecified; J44.9 Chronic obstructive pulmonary disease, unspecified; E11.9 Type 2 diabetes mellitus without complications; K21.9 Gastro-esophageal reflux disease without esophagitis; I25.2 Old myocardial infarction; Z87.891 Personal history of nicotine dependence; Z88.5 Allergy status to narcotic agent; Z79.899 Other long term (current) drug therapy
CPT/HCPCS: 96365; 96375; 99281; J1642

== ENCOUNTER 2021-02-26 13:22 | Day surgery (SDC) | payer MEDICARE, MEDICAID, SELFPAY ==
[2021-02-26 13:32] VITALS: BP 162/87; PULSE 76; RESP 18; TEMP 36.6; O2SAT 98; BMI 32.3
--- NOTE | 2021-02-26 13:45 | P.PCN_ITS ---
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 She is currently going 2.5 mg a day bupivacaine overall doing well denies side effects. Her pain is controlled. She did go to the ER for a migraine. Patient was given Haldol. Patient rates her pain today 0 out of 10. [facility] #[id number] reviewed. She recently got oxycodone 5 mg from the ER. Patient states that her headaches have become more frequently and she has been having up to 3 migraines a week. We will decrease her overall daily dose of bupivacaine and increase her bolus potential. Patient also has redness around the pump incision site we will put her on 1 week of Bactrim. Procedure Details:: Informed consent was obtained and the risk and benefits of the procedure were explained to the patient. The patient was taken to the procedure room where noninvasive monitoring was placed including noninvasive blood pressure cuff and pulse oximeter. Patient's pump was interrogated. The area over the pump was cleansed with chlorhexidine as a cleansing solution. In sterile fashion the pump was accessed with a 22-gauge needle. Approximately 3 mL's were removed of the pump solution and discarded appropriately. The pump was then refilled with 20 mL's of bupivacaine 5 mg/mL. The needle was withdrawn and a bandage was placed over the puncture site. The infusion rate was reprogrammed to 1 mg/day. The patient tolerated the procedure well. Plan and Disposition:: We will see the patient back in 1 week for any kind of titration. Patient's been instructed to call the office if she has any issues prior to her next appointment. Dr. Emmanuel has reviewed this note and agrees with this plan of care. This note was dictated using voice recognition software and may contain errors or omissions
[2021-02-26 13:55] VITALS: BP 140/77; PULSE 83; RESP 18
[2021-02-26 13:56] VITALS: BP 138/88; PULSE 85; RESP 18; O2SAT 97
[2021-02-26 14:08] VITALS: BP 143/92; PULSE 75; RESP 18; O2SAT 98
== END 2021-02-26 14:11 | disposition home or self-care (01) ==
LOC: SC.PAINP 13:23
PROVIDERS: PCP Family Medicine; Visit Provider Clinical Nurse Specialist Family Health
DX: M51.36 Other intervertebral disc degeneration, lumbar region (principal); K86.1 Other chronic pancreatitis; Z45.1 Encounter for adjustment and management of infusion pump; I25.10 Atherosclerotic heart disease of native coronary artery without angina pectoris; E78.5 Hyperlipidemia, unspecified; I10 Essential (primary) hypertension; J44.9 Chronic obstructive pulmonary disease, unspecified; N28.9 Disorder of kidney and ureter, unspecified; K21.9 Gastro-esophageal reflux disease without esophagitis; F41.9 Anxiety disorder, unspecified; F32.9 Major depressive disorder, single episode, unspecified; G43.909 Migraine, unspecified, not intractable, without status migrainosus; Z88.6 Allergy status to analgesic agent
CPT/HCPCS: 62370

== ENCOUNTER → 2021-03-02 09:11 | Outpatient (POV) | payer MEDICARE, MEDICAID, SELFPAY ==
[2021-03-02 09:32] VITALS: BP 130/85; PULSE 45; RESP 20; O2SAT 96; BMI 37.9
--- NOTE | 2021-03-02 10:15 | HMH.PAINSOAP ---
[facility] Pain Management SOAP Note Subjective:: She is a pleasant 60-year-old white female who has an intrathecal bupivacaine pain pump in place. She is doing very well with her pump. She has had some redness over her pump with some streaking around the flank area. She has previously taken a course of Bactrim. She still has some pain there is no fluctuance there is no drainage there does seem to be some cellulitic areas around the pump and in the flank area. However there does not seem to be marilou infection in this area. I have talked to her about possibility of explanting her pump. Patient does not want to explant her pump she would like to try another course of antibiotics to see if this would help. I talked to Dr. Singh more and we will plan on placing her on clindamycin 300 mg 3 times a day for 7 days. We will follow-up with her in 1 week. Objective:: Alert and oriented x3 no acute distress. Patient does have some tenderness around the pump there is no fluctuance no fluid collection there is some redness however there is no warmth. Patient does have some streaking around the abdomen. There is does seem to be some cellulitis in this area. Assessment:: Degenerative disc disease of lumbar spine with lumbar radiculopathy symptoms and chronic pancreatitis. Intrathecal bupivacaine pain pump in place with possible cellulitis. Plan:: We will start the patient on a course of antibiotics of clindamycin 300 mg 3 times a day. If her symptoms worsen or she becomes febrile she is to call us back in the clinic and also come to the hospital. We will follow-up with her in 1 week. We will reevaluate her symptoms at that time. [facility] History Medical History: Reports:: Arrhythmia, Atrial Fibrillation, Congestive Heart Failure, Chronic Obstructive Pulmonary Disease (COPD), Coronary Artery Disease, Deep Vein Thrombosis, Gastroesophageal Reflux Disease(GERD), Hyperlipidemia, Hypertension, Myocardial Infarction, Peripheral Artery Disease Denies:: Cancer, Diabetes Mellitus Type 1, Diabetes Mellitus Type 2, Internal Pacemaker, MRSA, Seizures *Have you ever received a pneumonia vaccine?: Yes *Have you received a flu vaccine this season?: Yes Other Medical History: Reports: Arthritis, Hoarseness, Other. Denies: Blood Transfusion Reaction Laterality Cases: Bilateral: Tonsillectomy Other Surgeries: Yes: No Previous Surgery, Appendectomy, Cardiac Catheterization, Cholecystectomy, Colonoscopy, Coronary Stent, EGD, Hysterectomy-Total, Tubal Ligation. No: Pacemaker. Comment Only: Other (port placement) Amputation: No Fractures: Yes - *Social History Smoking Status: Former smoker Tobacco Type: e-cigarettes # Packs/Day (cigarettes): 1 #Yrs smoked (if former smoker): 40 Alcohol Intake: never Alcohol Intake Frequency:: other Substance Use Type: denies use, painkillers *Occupational Status:: unemployed Housing: house Household Members: spouse *Travel in the last 8 weeks: None Family Hx:: Unable to obtain
== END ==
PROVIDERS: PCP Family Medicine; Visit Provider Clinical Nurse Specialist Family Health
DX: M51.16 Intervertebral disc disorders with radiculopathy, lumbar region (principal); K86.1 Other chronic pancreatitis; Z45.1 Encounter for adjustment and management of infusion pump
CPT/HCPCS: 99212; G0463

== ENCOUNTER → 2021-03-08 09:25 | Outpatient (POV) | payer MEDICARE, MEDICAID, SELFPAY ==
--- NOTE | 2021-03-08 09:50 | HMH.PAINSOAP ---
[facility] Pain Management SOAP Note Subjective:: Patient is a pleasant 60-year-old white female who presents today for follow-up. Patient had intrathecal pain pump placed. She is currently on bupivacaine 1 mg/day. Overall she is doing well. Patient was having some redness around the pump. Patient was switched to clindamycin at her last visit. She is looking quite a bit better. Patient rates her pain a 3 out of 10. She is getting continue her clindamycin until it is completed and we will see her back in 2 weeks.. ROS General: no recent weight change, no fever, no sleep disturbances Respiratory: no cough, no shortness of air, no recurring pulmonary infections Cardiovascular/Peripheral Vascular: No chest pain, No palpitations, no edema, no shortness of breath. Gastrointestinal: no new onset incontinence, normal bowel movements reported Genitourinary: no new onset incontinence Musculoskeletal: Abdominal pain, back pain at times Psychiatric: normal mood/ affect Neurological: [denies new onset weakness in extremities], [denies new onset balance issues] Objective:: Physical Exam General: Alert and oriented x3, no acute distress, pleasant and cooperative, [on room air] Lungs: Resps E/U, Symmetrical chest expansion, Eyes: PERRL Musculoskeletal: Flexion and extension of lumbar spine somewhat guarded secondary to pain, deep tendon reflexes normal, strength in upper and lower extremities [5/5], antalgic gait noted Neurological: speech clear, 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 We will see her back in 2 weeks reassess her symptoms at that time she has been instructed to call the office if she has any issues prior to her next appointment. Dr. Emmanuel has reviewed this note and agrees with this plan of care. This note was dictated using voice recognition software and may contain errors or omissions [facility] History I have reviewed the patient's past medical history: Yes Medical History: Reports:: Arrhythmia, Atrial Fibrillation, Congestive Heart Failure, Chronic Obstructive Pulmonary Disease (COPD), Coronary Artery Disease, Deep Vein Thrombosis, Gastroesophageal Reflux Disease(GERD), Hyperlipidemia, Hypertension, Myocardial Infarction, Peripheral Artery Disease Denies:: Cancer, Diabetes Mellitus Type 1, Diabetes Mellitus Type 2, Internal Pacemaker, MRSA, Seizures *Have you ever received a pneumonia vaccine?: Yes *Have you received a flu vaccine this season?: Yes Other Medical History: Reports: Arthritis, Hoarseness, Other. Denies: Blood Transfusion Reaction Laterality Cases: Bilateral: Tonsillectomy Other Surgeries: Yes: No Previous Surgery, Appendectomy, Cardiac Catheterization, Cholecystectomy, Colonoscopy, Coronary Stent, EGD, Hysterectomy-Total, Tubal Ligation. No: Pacemaker. Comment Only: Other (port placement) Amputation: No Fractures: Yes - *Social History Smoking Status: Former smoker Tobacco Type: e-cigarettes # Packs/Day (cigarettes): 1 #Yrs smoked (if former smoker): 40 Alcohol Intake: never Alcohol Intake Frequency:: other Substance Use Type: denies use, painkillers *Occupational Status:: unemployed Housing: house Household Members: spouse *Travel in the last 8 weeks: None Family Hx:: Unable to obtain
[2021-03-08 09:53] VITALS: BP 103/44; PULSE 74; RESP 18; TEMP 37; O2SAT 98; BMI 37.9
== END ==
PROVIDERS: PCP Family Medicine; Visit Provider Clinical Nurse Specialist Family Health
DX: M51.36 Other intervertebral disc degeneration, lumbar region (principal); K85.90 Acute pancreatitis without necrosis or infection, unspecified
CPT/HCPCS: 99212; G0463

== ENCOUNTER 2021-03-29 14:20 | Day surgery (SDC) | payer MEDICARE, MEDICAID, SELFPAY ==
--- NOTE | 2021-03-29 14:58 | HMH.PMPROC ---
- Procedure Date: 03/29/21 Time: 14:58 Anesthesiologist:: Noy Morin APRN Complications:: None Pre-procedure Diagnosis:: Degenerative disc disease lumbar spine lumbar radiculopathy, chronic pancreatitis Post-procedure Diagnosis:: Same Indications for Procedure:: Patient is a pleasant 60-year-old white female who presents today for intrathecal pain pump refill and reprogram. Patient has had multiple drug screens showing positive for cocaine and marijuana. I discussed this with the patient patient states that she is does some cocaine on the weekends. I discussed with her the risks of this. Patient understands. She is on bupivacaine only on her intrathecal pain pump. She is done well until recently she states she does need a increase in her medication. We will move forward with this today. Procedure Details:: informed consent was obtained and the risk and benefits of the procedure were explained to the patient. The patient was taken to the procedure room where noninvasive monitoring was placed including noninvasive blood pressure cuff and pulse oximeter. Patient's pump was interrogated. The area over the pump was cleansed with chlorhexidine as a cleansing solution. In sterile fashion the pump was accessed with a 22-gauge needle. Approximately 6 mL's were removed of the pump solution and discarded appropriately. The pump was then refilled with 20 mL's of bupivacaine 5 mg/mL. The needle was withdrawn and a bandage was placed over the puncture site. The infusion rate was reprogrammed to 1.5 mls per day. The patient tolerated the procedure well. Plan and Disposition:: We will see the patient back at her next intrathecal pain pump refill and reprogram she has been instructed to call the office if she has any issues prior to her next appointment. Dr. Emmanuel has reviewed this note and agrees with this plan of care. This note was dictated using voice recognition software and may contain errors or omissions
[2021-03-29 15:09] VITALS: BP 118/94; BP 120/92; BP 121/93; BP 135/76; PULSE 90; PULSE 92; PULSE 93; RESP 20; TEMP 36.8; O2SAT 96; O2SAT 97; O2SAT 98; BMI 37.9
[2021-03-29 15:42] LABS: Amphetamine/Metha Screen,Urine Negative ng/ml (<1000); Barbiturates Screen,Urine Negative ng/ml (<200); Benzodiazepines Screen,Urine Negative ng/ml (<200); Cannabinoid Screen,Urine Negative ng/ml (<50); Cocaine Screen,Urine Positive ng/ml (<300); Methadone Screen,Urine Negative ng/ml (<300); Opiate Screen,Urine Negative ng/ml (<300); Phencyclidine Screen,Urine Negative ng/ml (<25)
== END 2021-03-29 15:06 | disposition home or self-care (01) ==
LOC: SC.PAINP 14:20
PROVIDERS: PCP Family Medicine; Visit Provider Clinical Nurse Specialist Family Health
DX: M51.16 Intervertebral disc disorders with radiculopathy, lumbar region (principal); K86.1 Other chronic pancreatitis; E78.5 Hyperlipidemia, unspecified; I10 Essential (primary) hypertension; J44.9 Chronic obstructive pulmonary disease, unspecified; G43.909 Migraine, unspecified, not intractable, without status migrainosus; Z72.0 Tobacco use; Z88.6 Allergy status to analgesic agent; Z91.09 Other allergy status, other than to drugs and biological substances
CPT/HCPCS: 62370; 80305

== ENCOUNTER → 2021-04-23 14:18 | Day surgery (SDC) | payer MEDICARE, MEDICAID, SELFPAY ==
[2021-04-23 14:21] VITALS: BP 118/87; PULSE 98; RESP 18; TEMP 36.4; O2SAT 98; BMI 38.7
[2021-04-23 14:51] VITALS: BP 140/74; PULSE 85; RESP 18
--- NOTE | 2021-04-23 14:52 | HMH.PMPROC ---
- Procedure Date: 04/23/21 Time: 14:56 Anesthesiologist:: Noy Morin APRN Complications:: None Pre-procedure Diagnosis:: Degenerative disc disease lumbar spine lumbar radiculopathy and chronic pancreatitis Post-procedure Diagnosis:: Same Indications for Procedure:: Patient is a very pleasant 60-year-old white female who presents today for intrathecal pain pump refill and reprogram. Patient has had multiple drug screens showing positive for cocaine and marijuana should be retested today. She is in a bupivacaine only pump going at 1.5 mg/day. Patient overall doing well with this she rates her pain today 2 out of 10 and states that she is much more comfortable and has had less visits to the emergency room since the implant. Procedure Details:: Informed consent was obtained and the risk and benefits of the procedure were explained to the patient. The patient was taken to the procedure room where noninvasive monitoring was placed including noninvasive blood pressure cuff and pulse oximeter. Patient's pump was interrogated. The area over the pump was cleansed with chlorhexidine as a cleansing solution. In sterile fashion the pump was accessed with a 22-gauge needle. Approximately 5 mL's were removed of the pump solution and discarded appropriately. The pump was then refilled with 20 mL's of bupivacaine 10 mg/mL. The needle was withdrawn and a bandage was placed over the puncture site. The infusion rate was reprogrammed to 2 mg/day. The patient tolerated the procedure well. Plan and Disposition:: See the patient back at her next intrathecal pain pump refill and reprogram she has been instructed to call the office if she has any issues prior to her next appointment. Dr. Emmanuel has reviewed this note and agrees with this plan of care. This note was dictated using voice recognition software and may contain errors or omissions
[2021-04-23 14:53] VITALS: BP 142/87; PULSE 79; RESP 18; O2SAT 95
== END ==
PROVIDERS: PCP Family Medicine; Visit Provider Clinical Nurse Specialist Family Health
DX: M51.16 Intervertebral disc disorders with radiculopathy, lumbar region (principal); K86.1 Other chronic pancreatitis; Z45.1 Encounter for adjustment and management of infusion pump; I25.2 Old myocardial infarction; D64.9 Anemia, unspecified; K21.9 Gastro-esophageal reflux disease without esophagitis; I10 Essential (primary) hypertension; I48.91 Unspecified atrial fibrillation; J44.9 Chronic obstructive pulmonary disease, unspecified; I73.9 Peripheral vascular disease, unspecified; Z88.6 Allergy status to analgesic agent; Z88.8 Allergy status to other drugs, medicaments and biological substances
CPT/HCPCS: 62370

== ENCOUNTER → 2021-04-23 15:10 | Outpatient (CLI) | payer MEDICARE, MEDICAID, SELFPAY ==
[2021-04-23 15:57] LABS: Basophils # 0.1 K/mm3 (0-0.2); Basophils % 0.5 % (0.1-2.0); Eosinophils # 0.2 K/mm3 (0.0-0.4); Eosinophils % 2.1 % (0.1-12.0); Hematocrit 37.4 % (37.0-47.0); Hemoglobin 11.6 g/dL (12.2-16.2); Lymphocytes # 2.8 K/mm3 (0.7-4.5); Lymphocytes % 26.1 % (10-50); Mean Corpuscular Hemoglobin 26.7 pg (27.0-31.2); Mean Platelet Volume 8.1 fl (7.4-10.4); Monocytes # 0.4 K/mm3 (0.1-1.0); Neutrophils # 7.1 K/mm3 (1.8-7.8); Neutrophils % 67.3 % (37.0-80.0); Platelet Count 369 K/mm3 (142-424); Red Blood Count 4.35 M/mm3 (4.20-5.40); Red Cell Distribution Width 15.4 % (11.5-17.5); White Blood Count 10.5 K/mm3 (4.8-10.8)
[2021-04-23 16:11] LABS: Hemoglobin A1C 7.1 % (4.0-6.0)
[2021-04-23 16:43] LABS: Alanine Aminotransferase 21 U/L (12-78); Albumin Level 4.2 g/dl (3.5-5.0); Albumin/Globulin Ratio 1.4 (1.1-1.8); Alkaline Phosphatase 153 U/L (38-126); Anion Gap 12.3 mEq/L (5-15); Aspartate Amino Transferase 25 U/L (14-36); Bilirubin,Total 0.6 mg/dl (0.2-1.3); Blood Urea Nitrogen 12 mg/dl (7-17); Calcium 9.1 mg/dl (8.4-10.2); Carbon Dioxide 30 mmol/L (22.0-30.0); Chloride 98 mmol/L (98-107); Chol/HDL Ratio 3.2 (1-3.5); Cholesterol 167 mg/dl (140-200); Estimated Glomerular Filt Rate 57 ml/min (>60); GFR (African American) 68 ML/MIN (>60); Globulin 3.1 g/dL (1.3-3.2); Glucose 140 mg/dl (74-100); HDL Cholesterol 52 mg/dl (40-60); Potassium 4.3 mmoL/L (3.5-5.1); Sodium 136 mmol/L (136-145); Total Protein,Serum 7.3 g/dl (6.3-8.2); Triglycerides 331 mg/dl (30-150); VLDL Cholesterol 66 mg/dL (0-40)
[2021-04-23 16:54] LABS: Direct LDL Cholesterol 76.45 mg/dL (100-129)
[2021-04-23 17:00] LABS: T4 (Thyroxine) 6.2 ug/dl (5.53-11.0)
[2021-04-23 17:14] LABS: Thyroid Stimulating Hormone 5.76 uIU/mL (0.465-4.68)
== END ==
PROVIDERS: Visit Provider Family Medicine
DX: R55 Syncope and collapse; R73.9 Hyperglycemia, unspecified; F41.9 Anxiety disorder, unspecified; I10 Essential (primary) hypertension; N28.9 Disorder of kidney and ureter, unspecified; E78.49 Other hyperlipidemia; Z72.0 Tobacco use
CPT/HCPCS: 36415; 80053; 80061; 83036; 84436; 84443; 85025

== ENCOUNTER → 2021-05-10 09:15 | Outpatient (CLI) | payer MEDICARE, MEDICAID, SELFPAY ==
--- NOTE | 2021-05-10 09:15 | MM_ITS ---
PROCEDURE INFORMATION: Exam: [facility] Screening 3D Mammography Exam date and time: 05/10/2021 9:15 AM Age: 60 years old Clinical indication: screening mammogram TECHNIQUE: Imaging protocol: Screening tomosynthesis and 2D mammography including computer-aided detection (CAD) when performed. COMPARISON: [facility] MM Dig screening mamm BI w/CAD 03/05/2019 3:09 PM FINDINGS: MAMMOGRAPHY: Breast composition: There are scattered areas of fibroglandular density. Mass: None. Architectural distortion: No new or suspicious architectural distortion. Calcifications: No new or suspicious calcifications are present Asymmetric density: No new or suspicious asymmetric density is present Skin thickening: None. Axillary adenopathy: None. IMPRESSION: No mammographic evidence of malignancy. Recommend annual screening mammography unless otherwise clinically indicated. ASSESSMENT: BI-RADS category 1: Negative
== END ==
PROVIDERS: PCP Family Medicine; Visit Provider Family Medicine
DX: Z12.31 Encounter for screening mammogram for malignant neoplasm of breast (principal)
CPT/HCPCS: 77063; 77067

== ENCOUNTER 2021-05-28 15:14 | Day surgery (SDC) | payer MEDICARE, MEDICAID, SELFPAY ==
[2021-05-28 15:17] VITALS: BP 156/78; PULSE 89; RESP 20; TEMP 36.6; O2SAT 95; BMI 38.7
[2021-05-28 15:39] VITALS: BP 144/118; PULSE 76; RESP 18; O2SAT 92
[2021-05-28 15:41] VITALS: BP 140/98; PULSE 92; RESP 18; O2SAT 95
--- NOTE | 2021-05-28 15:45 | HMH.PMPROC ---
- Procedure Date: 05/28/21 Time: 15:45 Anesthesiologist:: Daniela Lopes APRN Complications:: None Pre-procedure Diagnosis:: Degenerative disc disease lumbar spine with lumbar radicular symptoms, chronic back pain Post-procedure Diagnosis:: Same Indications for Procedure:: Patient is a 6-year-old white female who presents today for intrathecal pain pump refill and reprogram. She is being treated for degenerative disc disease lumbar spine with lumbar radicular symptoms. She rates her pain a 7 out of 10. She is having worsening low back pain at this time. She is asking for steroids. She says the regimen she has used before that has given her significant relief was prednisone along with low-dose gabapentin as well as Flexeril. She does have some left arm medication prescribed to her from her previous provider in the past and is asking for refill on these medications today. She does have bupivacaine in her intrathecal pump at 2 mg/day and does not want an increase in this at this time. Her Delroy injection have been appropriate. We will start her her on Flexeril and a 5-day dose of steroids. Patient's having low back pain with bilateral foot numbness and tingling. We did discuss, however, we will not be able to start the patient on gabapentin due to a previous abnormal drug screen. Physical exam General: Alert and oriented x3, no acute distress, pleasant and cooperative, [on room air] Lungs: Respirations even and unlabored, symmetrical chest expansion Eyes: PERRL Musculoskeletal: Flexion and extension of lumbar spine somewhat guarded secondary to pain, deep tendon reflexes normal, strength in upper and lower extremities [5/5], [abnormal gait noted] Neurological: Speech clear, apartment coordinator equal, no gross sensory deficit Procedure Details:: Informed consent was obtained and the risk and benefits of the procedure were explained to the patient. The patient was taken to the procedure room where noninvasive monitoring was placed including noninvasive blood pressure cuff and pulse oximeter. Patient's pump was interrogated. The area over the pump was cleansed with chlorhexidine as a cleansing solution. In sterile fashion the pump was accessed with a 22-gauge needle. Approximately 5 mls of the pump solution was removed and discarded appropriately. The pump was then refilled with 20 mL's of bupivacaine. The needle was withdrawn and a bandage was placed over the puncture site. The infusion rate was reprogrammed at bupivacaine at 2 mg/day. The patient tolerated well with no complication. Plan and Disposition:: We order the patient prednisone 20 mg 1 tablet p.o. twice daily for 5 days. We will order her a week of Flexeril. We will not be giving the patient any controlled substances due to her previous abnormal drug screen. We will see her back at her next intrathecal refill and reprogram. Patient has been instructed to contact the clinic with any concerns before the next appointment. Dr. Emmanuel has reviewed this note and agrees with this plan of care. This note was dictated using voice recognition software and make contain errors or omissions.
[2021-05-28 15:51] VITALS: BP 140/84; PULSE 89; RESP 20; TEMP 36.6; O2SAT 98
== END 2021-05-28 16:00 | disposition home or self-care (01) ==
LOC: SC.PAINP 15:15
PROVIDERS: PCP Family Medicine; Visit Provider Clinical Nurse Specialist Family Health
DX: M51.16 Intervertebral disc disorders with radiculopathy, lumbar region (principal); G89.29 Other chronic pain; Z45.1 Encounter for adjustment and management of infusion pump
CPT/HCPCS: 95991

== ENCOUNTER 2021-06-11 13:09 | Emergency (ER) | payer MEDICARE, MEDICAID, SELFPAY ==
[2021-06-11] VITALS (11 sets, daily range): BP systolic 70–146; BP diastolic 39–90; PULSE 70–92; RESP 11–20; TEMP 36.8; O2SAT 97–100; BMI 38.7
--- NOTE | 2021-06-11 13:19 | ECG_ITS ---
APPROVED REPORT Exam: Resting ECG HR:87 bpm ECG Measurements Heart Rate 87 AXES HI 178 P 101 QRSd 80 QRS 81 QT 402 T 85 QTc 483 Conclusion Normal sinus rhythm Prolonged QT Abnormal ECG Electronically signed by : Oskar Eugene, 06/13/2021 21:40:53
--- NOTE | 2021-06-11 13:32 | HMH.EDABDPAI ---
ED Disposition Clinical Impression: Pancreatitis, chronic Qualifiers: Pancreatitis type: other Qualified Code(s): K86.1 - Other chronic pancreatitis Disposition: Home, Self-Care Condition on Discharge: Good Instructions: DI for Acute Abdominal Pain Additional Instructions: Follow-up with your primary care physician in about 2 to 3 days if your symptoms do not improve. Stick to a clear liquid diet for the next day or 2 and then advance her diet slowly as tolerated. Return to the emergency department for symptoms worsen. Referrals: Juan C Colón MD [Primary Care Provider] - - Critical Care Critical Care Time: No Attestation: On , the high probability of a clinically significant, sudden or life threatening deterioration of the following system(s) required my full and direct attention, intervention and personal management. The time I documented below is in addition to time spent performing reported procedures but includes the following listed in this critical care notation. Medical Decision Making - Delroy Inquiry Pt receiving controlled substance: No Vital Signs: 06/11/21 13:10 06/11/21 14:00 06/11/21 14:31 Temperature 98.3 F Temperature Source Oral Pulse Rate 79 Pulse Rate [Right] 92 H Respiratory Rate 20 17 12 Blood Pressure 110/71 79/63 L Blood Pressure [Right Arm] 146/90 H Blood Pressure Mean 83 68 Blood Pressure Mean [Right Arm] 108 02 Sat by Pulse Oximetry 99 98 Oxygen Delivery Method Nasal Cannula Oxygen Flow Rate (LPM) 2.5 06/11/21 15:00 06/11/21 15:30 06/11/21 15:41 Temperature Temperature Source Pulse Rate 76 72 70 Pulse Rate [Right] Respiratory Rate 15 15 Blood Pressure 81/54 L 83/44 L 77/46 L Blood Pressure [Right Arm] Blood Pressure Mean 51 54 Blood Pressure Mean [Right Arm] 02 Sat by Pulse Oximetry 97 97 97 Oxygen Delivery Method Oxygen Flow Rate (LPM) 06/11/21 15:50 06/11/21 16:30 06/11/21 16:53 Temperature Temperature Source Pulse Rate 71 70 70 Pulse Rate [Right] Respiratory Rate 13 14 13 Blood Pressure 78/39 L 77/41 L 70/44 L Blood Pressure [Right Arm] Blood Pressure Mean 48 49 52 Blood Pressure Mean [Right Arm] 02 Sat by Pulse Oximetry 98 99 100 Oxygen Delivery Method Oxygen Flow Rate (LPM) 06/11/21 16:57 Temperature Temperature Source Pulse Rate 70 Pulse Rate [Right] Respiratory Rate 11 L Blood Pressure 80/41 L Blood Pressure [Right Arm] Blood Pressure Mean Blood Pressure Mean [Right Arm] 02 Sat by Pulse Oximetry 98 Oxygen Delivery Method Oxygen Flow Rate (LPM) - Lab Data Lab results reviewed: Yes: I reviewed the patient's lab results. Lab Results 06/11/21 13:48: WBC 11.4 H, RBC 4.19 L, Hgb 11.7 L, Hct 35.8 L, MCV 85.4, MCH 27.9, MCHC 32.7, RDW 15.9, Plt Count 298, MPV 8.3, Neut % (Auto) 69.2, Lymph % (Auto) 24.7, [place] % (Auto) 3.8, Eos % (Auto) 1.8, Baso % (Auto) 0.6, Neut # (Auto) 7.9 H, Lymph # (Auto) 2.8, [place] # (Auto) 0.4, Eos # (Auto) 0.2, Baso # (Auto) 0.1 06/11/21 13:48: Sodium 137, Potassium 3.9, Chloride 102, Carbon Dioxide 25, Anion Gap 13.9, BUN 16, Creatinine 0.90, Estimated Creat Clear 114, Estimated GFR 64, Est GFR ( Amer) 77, Glucose 159 H, Calcium 8.1 L, Total Bilirubin 0.5, AST 33, ALT 27, Alkaline Phosphatase 147 H, Total Protein 6.7, Albumin 3.7, Globulin 3.0, Albumin/Globulin Ratio 1.2 06/11/21 13:48: Lipase 50 Result diagrams: 06/11/21 13:48 06/11/21 13:48 Orders (Tests/Meds): ED MEDICATIONS Discontinued Medications Generic Name Dose Route Start Last Admin Trade Name Freq PRN Reason Stop Dose Admin Haloperidol Lactate 2 mg 06/11/21 13:36 06/11/21 13:56 Haloperidol Lactate 5 Mg/Ml Vial IV 06/11/21 13:37 2 mg ONCE ONE Administration Sodium Chloride 1,000 mls @ 999 mls/hr 06/11/21 14:00 06/11/21 13:56 Sod Chlor 0.9% 1000ml Bag IV 06/11/21 15:00 999 mls/hr .Q1H1M CRISTOPHER Administration Sodium Chloride 1,000 mls @ 999 mls/h
--- NOTE | 2021-06-11 13:51 | PC.NURSE ---
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 Colón
[2021-06-11 14:04] LABS: Lipase 50 U/L (23-300)
--- NOTE | 2021-06-11 14:04 | PC.NURSE ---
GLORIA JUAREZ speaking with Dr. Colón
[2021-06-11 14:05] LABS: Alanine Aminotransferase 27 U/L (12-78); Albumin Level 3.7 g/dl (3.5-5.0); Albumin/Globulin Ratio 1.2 (1.1-1.8); Alkaline Phosphatase 147 U/L (38-126); Anion Gap 13.9 mEq/L (5-15); Aspartate Amino Transferase 33 U/L (14-36); Bilirubin,Total 0.5 mg/dl (0.2-1.3); Blood Urea Nitrogen 16 mg/dl (7-17); Calcium 8.1 mg/dl (8.4-10.2); Carbon Dioxide 25 mmol/L (22.0-30.0); Chloride 102 mmol/L (98-107); Creatinine Clearance Estimated 114 mL/min (50-200); Estimated Glomerular Filt Rate 64 ml/min (>60); GFR (African American) 77 ML/MIN (>60); Glucose 159 mg/dl (74-100); Potassium 3.9 mmoL/L (3.5-5.1); Sodium 137 mmol/L (136-145); Total Protein,Serum 6.7 g/dl (6.3-8.2)
[2021-06-11 14:21] LABS: Basophils # 0.1 K/mm3 (0-0.2); Basophils % 0.6 % (0.1-2.0); Eosinophils # 0.2 K/mm3 (0.0-0.4); Eosinophils % 1.8 % (0.1-12.0); Hematocrit 35.8 % (37.0-47.0); Hemoglobin 11.7 g/dL (12.2-16.2); Lymphocytes # 2.8 K/mm3 (0.7-4.5); Lymphocytes % 24.7 % (10-50); Mean Corpuscular HGB Conc 32.7 g/dL (31.8-35.4); Mean Corpuscular Hemoglobin 27.9 pg (27.0-31.2); Mean Corpuscular Volume 85.4 fl (81-99); Mean Platelet Volume 8.3 fl (7.4-10.4); Monocytes # 0.4 K/mm3 (0.1-1.0); Monocytes % 3.8 % (1.7-9.3); Neutrophils # 7.9 K/mm3 (1.8-7.8); Neutrophils % 69.2 % (37.0-80.0); Platelet Count 298 K/mm3 (142-424); Red Blood Count 4.19 M/mm3 (4.20-5.40); Red Cell Distribution Width 15.9 % (11.5-17.5); White Blood Count 11.4 K/mm3 (4.8-10.8)
--- NOTE | 2021-06-11 15:37 | PC.NURSE ---
MD verbally ordered for patient to have a PO challenge at this time
--- NOTE | 2021-06-11 16:43 | PC.NURSE ---
MD aware of blood pressure at this time
== END 2021-06-11 17:53 | disposition home or self-care (01) ==
PROVIDERS: Emergency Provider Emergency Medicine; PCP Family Medicine
DX: K86.1 Other chronic pancreatitis (principal); I48.0 Paroxysmal atrial fibrillation; I50.9 Heart failure, unspecified; J44.9 Chronic obstructive pulmonary disease, unspecified; I25.10 Atherosclerotic heart disease of native coronary artery without angina pectoris; K21.9 Gastro-esophageal reflux disease without esophagitis; I10 Essential (primary) hypertension; E78.5 Hyperlipidemia, unspecified; I25.2 Old myocardial infarction; Z87.891 Personal history of nicotine dependence; Z79.899 Other long term (current) drug therapy
CPT/HCPCS: 80053; 83690; 85025; 93005; 96365; 96366; 99283; J1642

== ENCOUNTER 2021-06-30 17:23 | Observation (INO) | payer MEDICARE, MEDICAID, SELFPAY ==
[2021-06-30 17:24] VITALS: BP 137/99; PULSE 87; RESP 16; TEMP 37.2; O2SAT 98; BMI 38.7
--- NOTE | 2021-06-30 17:45 | CT_ITS ---
PROCEDURE INFORMATION: Exam: CT Abdomen And Pelvis With Contrast Exam date and time: 06/30/2021 5:45 PM Age: 60 years old Clinical indication: Abdominal pain; Localized; Patient HX: Left sided abd pain; Additional info: R/O diverticulitis TECHNIQUE: Imaging protocol: Computed tomography of the abdomen and pelvis with contrast. Radiation optimization: All CT scans at this facility use at least one of these dose optimization techniques: automated exposure control; mA and/or kV adjustment per patient size (includes targeted exams where dose is matched to clinical indication); or iterative reconstruction. Contrast material: ISOVUE; Contrast volume: 75 ml; Contrast route: IV; COMPARISON: MR ABDOMEN WO CON 06/23/2020 4:34 PM FINDINGS: Tubes, catheters and devices: Intrathecal device noted. Lungs: Several sub 6 mm pulmonary nodules in the bases are unchanged. Mild bibasilar atelectasis. Liver: Diffuse hypoattenuation of the liver compatible with steatosis. Gallbladder and bile ducts: Status post cholecystectomy. Pancreas: Normal. No ductal dilation. Spleen: Splenic granulomata. Adrenal glands: Normal. No mass. Kidneys and ureters: Probable cyst again seen on the right kidney. No hydronephrosis. Stomach and bowel: A few scattered colonic diverticula are seen. There is some stranding adjacent to the descending colon. These findings may reflect diverticulitis. Appendix: No evidence of appendicitis. Intraperitoneal space: Unremarkable. No free air. No significant fluid collection. Vasculature: Coronary artery calcifications are seen. Lymph nodes: Unremarkable. No enlarged lymph nodes. Urinary bladder: Unremarkable as visualized. Reproductive: Status post hysterectomy. Bones/joints: Unremarkable. No acute fracture. Soft tissues: Unremarkable. IMPRESSION: 1. Findings compatible with diverticulitis involving the descending colon. No abscess. 2. Moderate appendix steatosis.
[2021-06-30 17:50] LABS: Microscopic, Urine URINE MICROSCOPIC (MICROSCOPIC)
[2021-06-30 17:52] LABS: Appearance,Urine CLEAR (Clear); Bilirubin,Urine Negative (Negative); Blood, Urine Negative (Negative); Color,Urine YELLOW (Yellow); Glucose,Urine (UA) Negative (Negative); Ketones,Urine Negative (Negative); Leukocyte Esterase,Urine Negative (Negative); Nitrate,Urine Negative (Negative); PH,Urine 7.5 (5.0-8.5); Protein,Urine 1+ (Negative); Specific Gravity, Urine 1.025 (1.005-1.030); Urobilinogen,Urine 0.2 EU/dl (0.2)
[2021-06-30 18:03] LABS: WBC,Urine Occasional #/hpf (0-3)
[2021-06-30 18:05] LABS: Squamous Epithelial Cell,Urine Occasional #/hpf (0-5); Yeast,Urine 1+ /lpf
[2021-06-30 18:16] LABS: Basophils # 0.1 K/mm3 (0-0.2); Basophils % 0.4 % (0.1-2.0); Eosinophils # 0.3 K/mm3 (0.0-0.4); Eosinophils % 1.8 % (0.1-12.0); Hematocrit 35.4 % (37.0-47.0); Hemoglobin 11.3 g/dL (12.2-16.2); Lymphocytes # 2.7 K/mm3 (0.7-4.5); Lymphocytes % 19.2 % (10-50); Mean Corpuscular HGB Conc 32.1 g/dL (31.8-35.4); Mean Corpuscular Hemoglobin 27.4 pg (27.0-31.2); Mean Corpuscular Volume 85.6 fl (81-99); Mean Platelet Volume 8.2 fl (7.4-10.4); Monocytes # 0.7 K/mm3 (0.1-1.0); Monocytes % 5.1 % (1.7-9.3); Neutrophils # 10.5 K/mm3 (1.8-7.8); Neutrophils % 73.6 % (37.0-80.0); Platelet Count 341 K/mm3 (142-424); Red Blood Count 4.13 M/mm3 (4.20-5.40); White Blood Count 14.2 K/mm3 (4.8-10.8)
[2021-06-30 18:29] LABS: Alanine Aminotransferase 25 U/L (12-78); Albumin Level 3.8 g/dl (3.5-5.0); Albumin/Globulin Ratio 1.4 (1.1-1.8); Alkaline Phosphatase 128 U/L (38-126); Anion Gap 10.4 mEq/L (5-15); Aspartate Amino Transferase 27 U/L (14-36); Bilirubin,Total 0.8 mg/dl (0.2-1.3); Blood Urea Nitrogen 15 mg/dl (7-17); Calcium 7.9 mg/dl (8.4-10.2); Carbon Dioxide 31 mmol/L (22.0-30.0); Chloride 98 mmol/L (98-107); Creatinine Clearance Estimated 103 mL/min (50-200); Estimated Glomerular Filt Rate 57 ml/min (>60); GFR (African American) 68 ML/MIN (>60); Globulin 2.8 g/dL (1.3-3.2); Glucose 151 mg/dl (74-100); Potassium 3.4 mmoL/L (3.5-5.1); Sodium 136 mmol/L (136-145); Total Protein,Serum 6.6 g/dl (6.3-8.2)
[2021-06-30 18:35] VITALS: BP 103/63; PULSE 89
--- NOTE | 2021-06-30 18:52 | HMH.EDGENADL ---
ED Disposition Clinical Impression: Diverticulitis Disposition: Admitted as Observation Condition on Discharge: Good Instructions: DI for Acute Abdominal Pain Referrals: Juan C Colón MD [Primary Care Provider] - Time of Disposition: 19:47 - Critical Care Critical Care Time: No Attestation: On 06/30/21, the high probability of a clinically significant, sudden or life threatening deterioration of the following system(s) required my full and direct attention, intervention and personal management. The time I documented below is in addition to time spent performing reported procedures but includes the following listed in this critical care notation. Medical Decision Making - Medical Records Medical records reviewed: Yes: I reviewed the patient's medical records. - Delroy Inquiry Pt receiving controlled substance: No Vital Signs: 06/30/21 17:24 06/30/21 18:35 Temperature 99 F Temperature Source Oral Pulse Rate 89 Pulse Rate [Radial] 87 Respiratory Rate 16 Blood Pressure 103/63 L Blood Pressure [Right Arm] 137/99 H Blood Pressure Mean [Right Arm] 111 Blood Pressure Position Sitting Blood Pressure Position [Right Arm] Sitting 02 Sat by Pulse Oximetry 98 Oxygen Delivery Method Room Air - Lab Data Lab results reviewed: Yes: I reviewed the patient's lab results. Lab Results 06/30/21 17:30: Urine Color Yellow, Urine Appearance Clear, Urine pH 7.5, Ur Specific [place] 1.025, Urine Protein 1+, Urine Glucose (UA) Negative, Urine Ketones Negative, Urine Blood Negative, Urine Nitrate Negative, Urine Bilirubin Negative, Urine Urobilinogen 0.2, Ur Leukocyte Esterase Negative, Urine RBC None, Urine WBC Occasional, Ur Squamous Epith Cells Occasional, Urine Bacteria None, Urine Yeast 1+ 06/30/21 18:05: WBC 14.2 H, RBC 4.13 L, Hgb 11.3 L, Hct 35.4 L, MCV 85.6, MCH 27.4, MCHC 32.1, RDW 16.0, Plt Count 341, MPV 8.2, Neut % (Auto) 73.6, Lymph % (Auto) 19.2, [place] % (Auto) 5.1, Eos % (Auto) 1.8, Baso % (Auto) 0.4, Neut # (Auto) 10.5 H, Lymph # (Auto) 2.7, [place] # (Auto) 0.7, Eos # (Auto) 0.3, Baso # (Auto) 0.1 06/30/21 18:05: Sodium 136, Potassium 3.4 L, Chloride 98, Carbon Dioxide 31 H, Anion Gap 10.4, BUN 15, Creatinine 1.00, Estimated Creat Clear 103, Estimated GFR 57 L, Est GFR ( Amer) 68, Glucose 151 H, Calcium 7.9 L, Total Bilirubin 0.8, AST 27, ALT 25, Alkaline Phosphatase 128 H, Total Protein 6.6, Albumin 3.8, Globulin 2.8, Albumin/Globulin Ratio 1.4 Result diagrams: 06/30/21 18:05 06/30/21 18:05 Orders (Tests/Meds): ED MEDICATIONS Generic Name Dose Route Start Last Admin Trade Name Freq PRN Reason Stop Dose Admin Lactated Ringer's 1,000 mls @ 999 mls/hr 06/30/21 19:15 Lactated Ringer's 1000 Ml Bag IV 06/30/21 20:15 .Q1H1M CRISTOPHER Discontinued Medications Generic Name Dose Route Start Last Admin Trade Name Freq PRN Reason Stop Dose Admin Amoxicillin/Clavulanate Potassium 1 each 06/30/21 19:39 Amoxicillin/Pot Clavulan 500mg Tablet PO 06/30/21 19:40 ONCE ONE Protocol Iopamidol 70 ml 06/30/21 18:57 06/30/21 18:58 Iopamidol-370 (76%);100ml Bottle IV 06/30/21 18:58 70 ml ONCE ONE Administration Metronidazole 500 mg 06/30/21 19:39 Metronidazole 500 Mg Tablet PO 06/30/21 19:40 ONCE ONE Protocol Sodium Chloride 10 ml 06/30/21 18:57 06/30/21 18:58 Sodium Chloride 0.9% 10ml Syr (Rad Only) IV 06/30/21 18:58 10 ml ONCE ONE Administration Medical Decision Narrative: 60yo F evaluated with concern for diverticulitis from her PCP. Patient no acute distress on initial evaluation. Mild left lower quadrant tenderness. There is no gross blood on digital rectal exam but Hemoccult has been sent to the lab. Routine laboratory studies are resulted with a minor bump in WBCs, stable H&H. Metabolic panel is benign. Patient is going for CT of the abdomen pelvis with IV contrast. Patient CT scan consistent with diverticulitis. Patient is hemod
--- NOTE | 2021-06-30 19:40 | PC.NURSE ---
Dr. Chowdhury s/w Dr. Colón regarding possible admission.
[2021-06-30 19:49] LABS: Occult Blood,Stool Negative (Negative)
[2021-06-30 21:10] VITALS: BP 110/78; PULSE 80; RESP 17; TEMP 36.6; O2SAT 98
--- NOTE | 2021-06-30 21:18 | PC.NURSE ---
PT ARRIVED TO FLOOR VIA W/C FROM ED W/STAFF AT [id number]
[2021-06-30 21:26] VITALS: BP 119/81; PULSE 88; RESP 16; TEMP 36.9; O2SAT 94
[2021-06-30 21:27] VITALS: BMI 38.5
[2021-07-01] VITALS (10 sets, daily range): BP systolic 86–120; BP diastolic 51–78; PULSE 75–91; RESP 16–20; TEMP 36.6–36.7; O2SAT 91–98; BMI 38.5
--- NOTE | 2021-07-01 02:38 | PC.NURSE ---
pt back form CT
[2021-07-01 07:09] LABS: Basophils # 0.1 K/mm3 (0-0.2); Basophils % 0.4 % (0.1-2.0); Eosinophils # 0.3 K/mm3 (0.0-0.4); Hematocrit 34.4 % (37.0-47.0); Lymphocytes # 2.7 K/mm3 (0.7-4.5); Lymphocytes % 21.7 % (10-50); Mean Corpuscular Hemoglobin 27.7 pg (27.0-31.2); Mean Corpuscular Volume 86.7 fl (81-99); Mean Platelet Volume 8.2 fl (7.4-10.4); Monocytes # 0.6 K/mm3 (0.1-1.0); Monocytes % 4.5 % (1.7-9.3); Neutrophils # 8.8 K/mm3 (1.8-7.8); Neutrophils % 71.3 % (37.0-80.0); Platelet Count 286 K/mm3 (142-424); Red Blood Count 3.97 M/mm3 (4.20-5.40); White Blood Count 12.4 K/mm3 (4.8-10.8)
[2021-07-01 07:15] LABS: Chloride 101 mmol/L (98-107)
[2021-07-01 07:16] LABS: Potassium 3.7 mmoL/L (3.5-5.1); Sodium 138 mmol/L (136-145)
[2021-07-01 07:18] LABS: Blood Urea Nitrogen 11 mg/dl (7-17); Creatinine Clearance Estimated 93 mL/min (50-200); Estimated Glomerular Filt Rate 51 ml/min (>60); GFR (African American) 61 ML/MIN (>60)
[2021-07-01 07:19] LABS: Anion Gap 8.7 mEq/L (5-15); Calcium 7.9 mg/dl (8.4-10.2); Carbon Dioxide 32 mmol/L (22.0-30.0); Glucose 149 mg/dl (74-100)
--- NOTE | 2021-07-01 07:56 | HMH.PHAVTE ---
[facility] VTE Monitoring - Patient Demographics Admission date: 06/30/21 Report Date: 07/01/21 Time: 07:56 Allergies/Adverse Reactions: Patient Allergies codeine [CODEINE] Allergy (Intermediate, Verified 05/28/21 15:31) N/V ketorolac [KETOROLAC] Allergy (Intermediate, Verified 05/28/21 15:31) Hives meperidine [MEPERIDINE] Allergy (Intermediate, Verified 05/28/21 15:31) Hives tramadol [TRAMADOL] Allergy (Intermediate, Verified 05/28/21 15:31) Hives verapamil Allergy (Mild, Verified 05/28/21 15:31) Unknown allergy reaction ciprofloxacin Adverse Reaction (Severe, Verified 05/28/21 15:31) Interacts with cindyalta Height: 1.68 m Weight: 108.862 kg Patient Problems: Current Active Problems Diverticulitis (Acute) - VTE Risk Labs: VTE Related Lab Results Hgb 11.0 g/dL (12.2-16.2) L 07/01/21 06:44 Hct 34.4 % (37.0-47.0) L 07/01/21 06:44 Plt Count 286 K/mm3 (142-424) 07/01/21 06:44 BUN 11 mg/dl (7-17) D 07/01/21 06:44 Creatinine 1.10 mg/dl (0.52-1.04) H 07/01/21 06:44 Estimated Creat Clear 93 mL/min (50-200) 07/01/21 06:44 - Prophylaxis VTE Prophylaxis Ordered?: Yes Types of VTE Prophylaxis: IPCS Thigh High Location of Applied Device: Bilateral Lower Extremeties
--- NOTE | 2021-07-01 11:43 | HMH.HP ---
*Admission Date: 06/30/21 *Chief complaint: diverticulitis *History of present illness: 60yo F evaluated with concern for diverticulitis from her PCP. Patient no acute distress on initial evaluation. Mild left lower quadrant tenderness. There is no gross blood on digital rectal exam but Hemoccult has been sent to the lab. Routine laboratory studies are resulted with a minor bump in WBCs, stable H&H. Metabolic panel is benign. Patient is going for CT of the abdomen pelvis with IV contrast. Patient CT scan consistent with diverticulitis. Patient is hemodynamically stable and has had no previous episode previously. She is appropriate for outpatient management at this time. Vital signs are unremarkable. Discussed outpatient plan with the patient. She states she is too weak to complete that at home. She does not feel safe going home. We will discussed the case with Dr. Colón for admission and further management. Patient has a history of pancreatic divisum, chronic abdominal pain. He also has an implantable pain device intractable pain in her back and legs. Patient relays that for 3 days prior to her admit was eating and drinking less. She did have some bright red blood per rectum on several occasions. She was Hemoccult in the emergency room. White count was 12.4 hemoglobin was 11 creatinine 1.1 K3.7 blood sugars have been in the 150 range. [facility] History Medical History: Reports:: Arrhythmia, Atrial Fibrillation, Congestive Heart Failure, Chronic Obstructive Pulmonary Disease (COPD), Coronary Artery Disease, Deep Vein Thrombosis, Gastroesophageal Reflux Disease(GERD), Hyperlipidemia, Hypertension, Myocardial Infarction, Peripheral Artery Disease Denies:: Cancer, Diabetes Mellitus Type 1, Diabetes Mellitus Type 2, Internal Pacemaker, MRSA, Seizures *Have you ever received a pneumonia vaccine?: Yes *Have you received a flu vaccine this season?: Yes Other Medical History: Reports: Arthritis, Hoarseness, Other. Denies: Blood Transfusion Reaction Laterality Cases: Bilateral: Tonsillectomy Other Surgeries: Yes: No Previous Surgery, Appendectomy, Cardiac Catheterization, Cholecystectomy, Colonoscopy, Coronary Stent, EGD, Hysterectomy-Total, Tubal Ligation, Other (pain pump insertion). No: Pacemaker Amputation: No Fractures: Yes - *Social History Smoking Status: Former smoker Tobacco Type: e-cigarettes # Packs/Day (cigarettes): 1 #Yrs smoked (if former smoker): 40 Alcohol Intake: never Alcohol Intake Frequency:: other Substance Use Type: marijuana, crack/cocaine *Occupational Status:: disabled Housing: house Household Members: significant other *Travel in the last 8 weeks: None Family Hx:: Unable to obtain Review of Systems - Constitutional Reports anorexia, Reports fatigue, Reports lack of energy, Reports malaise, Reports weakness - Eyes Denies change in vision - ENT Denies abnormal hearing, Denies difficulty swallowing - *Cardiovascular Denies chest pain, Denies chest pain at rest, Denies shortness of breath - *Respiratory Denies chest congestion - *Gastrointestinal Reports abdominal pain, Reports belching, Reports bloating, Reports heartburn, Reports bright, red blood in stools, Reports nausea, Denies coffee ground vomit - *Genitourinary Denies painful urination - *Musculoskeletal Reports muscle cramps, Reports muscle weakness - Integumentary/Breasts Denies yellowing of the skin - *Neurologic Denies abnormal hearing, Denies confusion, Denies lack of coordination - Psychiatric Denies behavioral changes - Endocrine Denies flushing - Hematologic/Lymphatic Denies easy bleeding, Denies easy bruising - Allergic/Immunologic Denies wheezing Meds Home Medications Medication Instructions Recorded Confirmed Type Omeprazole Magnesium [Prilosec Otc 20 mg PO DAILY 06/22/20 06/30/21 History 20mg Tab] atorvastatin 40 mg tablet 40 mg PO HS tab 10/09/20 06/30/21 History Potassium Chloride 20 meq PO DAILY 1
[2021-07-01 12:33] LABS: Lactic Acid 1.9 mmol/L (0.7-2.1); Lipase 33 U/L (23-300)
--- NOTE | 2021-07-01 15:07 | HMH.PHAINT ---
MEDICATION RECONCILIATION COMPLETED ON PATIENT USING EXTERNAL FILL HISTORY FROM PHARMACY AND LIST FROM PCP OFFICE. -BOBBY BECERRAD
--- NOTE | 2021-07-01 16:54 | PC.NURSE ---
pt now in SCU room 262
--- NOTE | 2021-07-01 17:17 | PC.NURSE ---
BP 112/69. Levo gtt not started. HR 77. O2 sat 97% on 2L NC. Pt is A&O.
[2021-07-02] VITALS (13 sets, daily range): BP systolic 96–138; BP diastolic 57–76; PULSE 70–118; RESP 16–19; TEMP 36.6–37; O2SAT 91–98; BMI 38.9
--- NOTE | 2021-07-02 06:00 | XR_ITS ---
PROCEDURE INFORMATION: Exam: XR Chest Exam date and time: 07/02/2021 6:00 AM Age: 60 years old Clinical indication: Other: Chf SOB TECHNIQUE: Imaging protocol: XR of the chest. Views: 1 view. COMPARISON: CR XR CHEST PORTABLE 09/11/2020 7:43 AM FINDINGS: Tubes, catheters and devices: Multiple overlying cardiac leads are present. A right infusion port is present. Lungs: There is low lung volume with associated vascular crowding and bibasilar atelectasis. Bilateral diffuse pulmonary vascular/interstitial prominence. Pleural spaces: Bibasilar opacities, compatible with pleural effusions the and/or atelectasis. Heart/Mediastinum: Unremarkable. No cardiomegaly. Bones/joints: Unremarkable. IMPRESSION: 1. Bilateral diffuse pulmonary vascular/interstitial prominence. 2. Bibasilar opacities, compatible with pleural effusions the and/or atelectasis.
[2021-07-02 06:01] LABS: Basophils % 0.5 % (0.1-2.0); Eosinophils # 0.2 K/mm3 (0.0-0.4); Hematocrit 31.7 % (37.0-47.0); Hemoglobin 9.9 g/dL (12.2-16.2); Lymphocytes # 1.7 K/mm3 (0.7-4.5); Lymphocytes % 22.2 % (10-50); Mean Corpuscular HGB Conc 31.1 g/dL (31.8-35.4); Mean Corpuscular Hemoglobin 27.2 pg (27.0-31.2); Mean Corpuscular Volume 87.4 fl (81-99); Mean Platelet Volume 8.1 fl (7.4-10.4); Monocytes # 0.5 K/mm3 (0.1-1.0); Monocytes % 5.9 % (1.7-9.3); Neutrophils # 5.3 K/mm3 (1.8-7.8); Neutrophils % 68.4 % (37.0-80.0); Platelet Count 283 K/mm3 (142-424); Red Blood Count 3.62 M/mm3 (4.20-5.40); Red Cell Distribution Width 16.2 % (11.5-17.5); White Blood Count 7.8 K/mm3 (4.8-10.8)
[2021-07-02 06:33] LABS: Chloride 106 mmol/L (98-107); Potassium 3.4 mmoL/L (3.5-5.1); Sodium 141 mmol/L (136-145)
[2021-07-02 06:36] LABS: Alanine Aminotransferase 19 U/L (12-78); Alkaline Phosphatase 131 U/L (38-126); Anion Gap 6.4 mEq/L (5-15); Aspartate Amino Transferase 27 U/L (14-36); Bilirubin,Total 0.6 mg/dl (0.2-1.3); Blood Urea Nitrogen 7 mg/dl (7-17); Calcium 7.5 mg/dl (8.4-10.2); Carbon Dioxide 32 mmol/L (22.0-30.0); Creatinine Clearance Estimated 115 mL/min (50-200); Estimated Glomerular Filt Rate 64 ml/min (>60); GFR (African American) 77 ML/MIN (>60); Glucose 114 mg/dl (74-100); Lipase 32 U/L (23-300)
[2021-07-02 06:37] LABS: Albumin/Globulin Ratio 1.2 (1.1-1.8); Globulin 2.6 g/dL (1.3-3.2); Total Protein,Serum 5.6 g/dl (6.3-8.2)
[2021-07-02 09:21] LABS: Coronavirus 19, PCR Not Detected (NotDetected); Influenza A, PCR Not Detected (NotDetected); Influenza B, PCR Not Detected (NotDetected)
--- NOTE | 2021-07-02 09:53 | PC.NURSE ---
Left message w/ BJ in surg suite for Dr. Fox, made aware of consult
--- NOTE | 2021-07-02 11:06 | HMH.GSCON ---
*Admission Date: 06/30/21 *Reason for consult:: Generalized abdominal pain *History of present illness: Patient is a 60-year-old female from [facility] with history of chronic pain with implantable pain pump. She has a venous access port. She has a history of pancreas divisum with chronic abdominal pain. 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 She presented to the emergency department several days ago with abdominal pain. Work-up at that time revealed a mild leukocytosis and CT scan revealed findings consistent with uncomplicated diverticulitis. It appears as though initial plan was for outpatient management but the patient stated that she was too weak to be discharged and was admitted for inpatient management on 06/30/2021. She does state that she feels somewhat better. Surgical consultation was ordered. Review of Systems - Review of Systems Review of systems:: pertinent systems reviewed and negative unless documented below - *Neurologic Reports weakness, Denies abnormal hearing, Denies behavioral changes, Denies confusion, Denies lack of coordination [facility] History I have reviewed the patient's past medical history: Yes Medical History: Reports:: Arrhythmia, Atrial Fibrillation, Congestive Heart Failure, Chronic Obstructive Pulmonary Disease (COPD), Coronary Artery Disease, Deep Vein Thrombosis, Gastroesophageal Reflux Disease(GERD), Hyperlipidemia, Hypertension, Myocardial Infarction, Peripheral Artery Disease Denies:: Cancer, Diabetes Mellitus Type 1, Diabetes Mellitus Type 2, Internal Pacemaker, MRSA, Seizures *Have you ever received a pneumonia vaccine?: Yes *Have you received a flu vaccine this season?: Yes Other Medical History: Reports: Arthritis, Hoarseness, Other. Denies: Blood Transfusion Reaction Laterality Cases: Bilateral: Tonsillectomy Other Surgeries: Yes: No Previous Surgery, Appendectomy, Cardiac Catheterization, Cholecystectomy, Colonoscopy, Coronary Stent, EGD, Hysterectomy-Total, Tubal Ligation, Other (pain pump insertion). No: Pacemaker Amputation: No Fractures: Yes - *Social History Smoking Status: Former smoker Tobacco Type: e-cigarettes # Packs/Day (cigarettes): 1 #Yrs smoked (if former smoker): 40 Alcohol Intake: never Alcohol Intake Frequency:: other Substance Use Type: marijuana, crack/cocaine *Occupational Status:: disabled Housing: house Household Members: significant other *Travel in the last 8 weeks: None Family Hx:: Unable to obtain Meds Home Medications Medication Instructions Recorded Confirmed Type Omeprazole Magnesium [Prilosec Otc 20 mg PO DAILY 06/22/20 06/30/21 History 20mg Tab] atorvastatin 40 mg tablet 40 mg PO HS tab 10/09/20 06/30/21 History Potassium Chloride 20 meq PO DAILY 10/17/20 06/30/21 History ticagrelor 90 mg tablet 90 mg PO BID #60 tab 01/01/21 06/30/21 Rx Furosemide [Furosemide 40MG tAB*] 10 mg PO DAILY 02/15/21 06/30/21 History Lisinopril/Hydrochlorothiazide 0.5 tab PO DAILY 02/15/21 06/30/21 History [Lisinopril-Hctz 10-12.5 mg Tab] duloxetine 60 mg capsule,delayed 60 mg PO BID #180 cap 04/05/21 06/30/21 Rx release isosorbide mononitrate 30 mg 30 mg PO DAILY #30 tab 04/06/21 06/30/21 Rx tablet,extended release 24 hr Albuterol Sulfate [Albuterol 1 puff IH Q4HP PRN 04/23/21 07/01/21 History Sulfate Hfa] Estrogens, Conjugated [Premarin] 0.3 mg PO DIRECTED 04/23/21 07/01/21 History Metoprolol Succinate [Metoprolol 12.5 mg PO DAILY 04/23/21 07/01/21 History Succinate 25mg Tablet*] nitroglycerin 0.4 mg sublingual 0.4 mg SUBLINGUAL Q5M PRN #30 tab 04/24/21 06/30/21 Rx tablet trazodone 100 mg tablet 200 mg PO HS #90 tab 05/10/21 06/30/21 Rx promethazine 25 mg tablet 25 mg PO Q6H PRN #60 tab 05/18/21 06/30/21 Rx Fluticasone/Salmeterol [Advair 1 puff IH BID 05/28/21 07/01/21 History 100/50mcg diskus] alprazolam 1 mg tablet 1 mg PO TIDP PRN #90 tab 06/08/21 06/30/21 Rx Cyclobenzapr
--- NOTE | 2021-07-02 11:53 | CA_ITS ---
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: RAQUEL Mcelroy, RVS Ht: 5 ft 6 in Wt: 240lbs BSA: 2.16 BP: 88/60 mmHg Indications: CHF, CAD-stent, AFIB, old [place] 2D Dimensions LVDd 5.17 cm LA Volume 96.30 mL Aortic Root 3.16 cm LA Volume Index 44.60 mL/m2 (M/F) 16-34 Left Atrium 3.96 cm LVOT 2.12 cm (M/F) 1.5-2.5 M-Mode Dimensions RVDd 3.63 cm (0.9-2.6) LA Diam 4.57 cm (1.9-4.0) LVDd 5.13 cm (3.5-5.7) Ao Diam 3.33 cm (2.0-3.7) LVDs 3.65 cm (3.5-5.7) IVSd 1.21 cm (0.6-1.1) PWd 1.05 cm (0.6-1.1) EF (Teich) 54.50% EPSs 0.36 cm FS 28.40% EDV (Teich) 123.80 mL TAPSE 1.97 (<1.7) ESV (Teich) 56.30 mL LV Diastology E Decel Time 117.00 (160-240 msec) E/A Ratio 1.51 MED E' 13.60 (< 7 cm/sec) MED A' 5.80 cm/s E'/MED E' Ratio 6.28 (>14) LAT E' 9.20 (<10 cm/sec) E/LAT E' Ratio 9.28 (>14) Aortic Valve AoV Peak Saad. 175.00 (50-130 cm/s) AO Peak GR. 12.30 mmHg AO Mean GR. 5.50 (<5 mmHg) AO VTI 24.40 (18-25 cm) Mitral Valve MV E Max Saad. 85.00 (40-130 cm/s) MV A Velocity 57.00 (40-130 cm/s) E/A Ratio 1.51 MV Decel. Time 117.00 (160-240 ms) MV PHT 34.00 ms Pulmonary Valve PV Peak Velocity 109.00 (50-150 cm/s) Left Ventricle Left atrium is moderately enlarged, left ventricle is normal size, mild concentric left ventricular hypertrophy, visually estimated ejection fraction 50% with inferior basal wall appears to be moderately hypokinetic. Diastolic parameters are inconclusive. Right Ventricle Right atrium and right ventricle mildly enlarged with normal contractility. Aortic Valve Aortic valve is minimally thickened and fibrosed, there is no aortic stenosis or aortic insufficiency. Mitral Valve Mitral valve is grossly normal, there is mild mitral regurgitation. Tricuspid Valve Tricuspid valve grossly normal, there is mild tricuspid regurgitation, tricuspid regurgitation jet velocity is inadequate for calculation of the right ventricular systolic pressure. Pulmonic Valve Pulmonic valve is poorly visualized. Great Vessels Aortic root is normal size. Pericardium Small pericardial effusion noted. Conclusion 1. Technically difficult study because of the patient factors and poor acoustic windows. Left atrium is moderately enlarged, left ventricle is normal size, mild concentric left ventricular hypertrophy, visually estimated ejection fraction 50% with segmental wall motion abnormalities described above, diastolic parameters are inconclusive. 2. Mildly enlarged right ventricle with normal contractility. 3. Mild mitral and tricuspid regurgitation, tricuspid regurgitation jet velocity is inadequate for calculation of the right ventricular systolic pressure. 4. Small pericardial effusion noted. Electronically signed by : Lamont Bull, 07/02/2021 10:00:50
--- NOTE | 2021-07-02 13:22 | HMH.ACPN2 ---
Internal Medicine - PN: Subj *Date: 07/02/21 *Time: 09:50 Interval history: pt states she is feeling well Exam Vital signs and Labs for Last 24 Hours: Temp Pulse Resp BP Pulse Ox 98.2 F 87 16 99/76 L 97 07/02/21 08:00 07/02/21 12:00 07/02/21 12:00 07/02/21 12:00 07/02/21 12:00 Laboratory Results - last 24 hr 07/02/21 05:15: WBC 7.8 D, RBC 3.62 L, Hgb 9.9 L, Hct 31.7 L, MCV 87.4, MCH 27.2, MCHC 31.1 L, RDW 16.2, Plt Count 283, MPV 8.1, Neut % (Auto) 68.4, Lymph % (Auto) 22.2, [place] % (Auto) 5.9, Eos % (Auto) 3.0, Baso % (Auto) 0.5, Neut # (Auto) 5.3, Lymph # (Auto) 1.7, [place] # (Auto) 0.5, Eos # (Auto) 0.2, Baso # (Auto) 0.0 07/02/21 05:15: Sodium 141, Potassium 3.4 L, Chloride 106, Carbon Dioxide 32 H, Anion Gap 6.4, BUN 7 D, Creatinine 0.90, Estimated Creat Clear 115, Estimated GFR 64, Est GFR ( Amer) 77 D, Glucose 114 H D, Calcium 7.5 L, Total Bilirubin 0.6, AST 27, ALT 19, Alkaline Phosphatase 131 H, Total Protein 5.6 L, Albumin 3.0 L D, Globulin 2.6, Albumin/Globulin Ratio 1.2, Lipase 32 07/02/21 09:10: SARS-CoV-2 (PCR) Not detected, Influenza A Untype (PCR) Not detected, Influenza Type B (PCR) Not detected I & O for Last 24 hours: Intake & Output 06/30/21 07/01/21 07/02/21 07/03/21 11:59 11:59 11:59 11:59 Intake Total 100 / 100 3270 / 3270 Output Total 1111 / 1111 Balance 100 / 100 2159 / 2159 Weight 240 lb 241 lb 15.07 oz 242 lb 8.136 oz - Constitutional no acute distress - *Routine HEENT Exam Head: Present: normocephalic Eye: Present: PERRL ENT: Present: mucous membranes moist - *Routine Neck Exam Present: supple. Absent: lymphadenopathy - *Routine Respiratory Exam Present: CTA bilaterally - *Routine Cardiovascular Exam Present: RRR - *Routine Abdominal Exam Present: soft, normoactive bowel sounds. Absent: tenderness - *Routine Extremities Exam Absent: cyanosis, clubbing, edema - *Routine Skin Exam Present: warm. Absent: rash - *Routine Neurological Exam Present: alert, oriented X3 - Routine Psychiatric Exam Present: normal affect Assessment and Plan (1) Pancreas divisum of [place] pancreas Status: Acute Category: Medical Code(s): Q45.3 - Other congenital malformations of pancreas and pancreatic duct (2) Diverticulitis Status: Acute Category: Medical Code(s): K57.92 - Diverticulitis of intestine, part unspecified, without perforation or abscess without bleeding (3) Abdominal pain Status: Acute Qualifiers: Abdominal location: generalized Qualified Code(s): R10.84 - Generalized abdominal pain Category: Medical Code(s): R10.9 - Unspecified abdominal pain (4) Acute hypotension Status: Acute Category: Medical Code(s): I95.9 - Hypotension, unspecified (5) Anxiety Status: Acute Category: Medical Code(s): F41.9 - Anxiety disorder, unspecified (6) Avascular necrosis of right femoral head Status: Acute Category: Medical Code(s): M87.051 - Idiopathic aseptic necrosis of right femur (7) Decreased oral intake Status: Acute Category: Medical Code(s): R63.8 - Other symptoms and signs concerning food and fluid intake (8) Dehydration Status: Acute Category: Medical Code(s): E86.0 - Dehydration (9) Epigastric pain Status: Acute Category: Medical Code(s): R10.13 - Epigastric pain (10) History of pancreatitis Status: Acute Category: Medical Code(s): Z87.19 - Personal history of other diseases of the digestive system (11) Hypotension Status: Acute Category: Medical Code(s): I95.9 - Hypotension, unspecified (12) Left sided colitis Status: Acute Category: Medical Code(s): K51.50 - Left sided colitis without complications (13) Morbid obesity due to excess calories Status: Acute Category: Medical Code(s): E66.01 - Morbid (severe) obesity due to excess calories (14) Pancreatitis, chronic Status: Acute Qualifiers: Pancreatitis type: other Qualif
[2021-07-03] VITALS (9 sets, daily range): BP systolic 128–162; BP diastolic 83–98; PULSE 70–90; RESP 14–18; TEMP 36.4–36.6; O2SAT 88–100; BMI 40.7
--- NOTE | 2021-07-03 03:50 | PC.NURSE ---
Patient is alert and oriented x4. At the beginning of the shift, patient was sitting up in bed rocking back and forth and crying, stating she was in a terrible amount of pain. Patient was complaining of upper quadrant pain. MD supervisor air conditioning installer was paged and new orders where received and read back x2. Patient has rested well this shift. Lung sounds have scattered expiratory wheezing. Abdomen is soft and tender when palpated. Patient states she had a BM after dinner on 07/02/21. Patient ambulates to the bedside commode independently. Implanted port site was redressed mid-shift as patient had pulled dressing off stating it was irritating her skin. Tegaderm was applied and LR is infusing at 75ml/hr. Vital signs are stable, will continue to monitor, call light within reach.
--- NOTE | 2021-07-03 04:55 | PC.NURSE ---
one sheet, one blanket, one pillow noted.
[2021-07-03 05:46] LABS: Basophils # 0.1 K/mm3 (0-0.2); Basophils % 0.6 % (0.1-2.0); Eosinophils # 0.3 K/mm3 (0.0-0.4); Eosinophils % 3.5 % (0.1-12.0); Hematocrit 32.3 % (37.0-47.0); Lymphocytes # 2.7 K/mm3 (0.7-4.5); Lymphocytes % 34.2 % (10-50); Mean Corpuscular HGB Conc 30.9 g/dL (31.8-35.4); Mean Corpuscular Hemoglobin 27.4 pg (27.0-31.2); Mean Corpuscular Volume 88.8 fl (81-99); Mean Platelet Volume 8.6 fl (7.4-10.4); Monocytes # 0.4 K/mm3 (0.1-1.0); Monocytes % 5.5 % (1.7-9.3); Neutrophils # 4.4 K/mm3 (1.8-7.8); Neutrophils % 56.1 % (37.0-80.0); Platelet Count 295 K/mm3 (142-424); Red Blood Count 3.63 M/mm3 (4.20-5.40); Red Cell Distribution Width 16.2 % (11.5-17.5); White Blood Count 7.9 K/mm3 (4.8-10.8)
[2021-07-03 05:54] LABS: Chloride 103 mmol/L (98-107); Sodium 141 mmol/L (136-145)
[2021-07-03 05:55] LABS: Potassium 3.5 mmoL/L (3.5-5.1)
[2021-07-03 05:58] LABS: Anion Gap 9.5 mEq/L (5-15); Blood Urea Nitrogen 9 mg/dl (7-17); Calcium 7.7 mg/dl (8.4-10.2); Carbon Dioxide 32 mmol/L (22.0-30.0); Creatinine Clearance Estimated 121 mL/min (50-200); Estimated Glomerular Filt Rate 64 ml/min (>60); GFR (African American) 77 ML/MIN (>60); Glucose 152 mg/dl (74-100)
--- NOTE | 2021-07-03 09:31 | CT_ITS ---
PROCEDURE: CT ABDOMEN PELVIS WO CON CLINICAL INDICATION: Abd Pain Diverticulitis, abdominal pain, nausea COMPARISON: CT ABDPELWO CT abdomen pelvis wo con from 05/15/[address] ABDOMEN PELVIS W CON from 06/30/2021 TECHNIQUE: Axial images obtained with sagittal and coronal reformats. All CT scans at the facility use one or more dose reduction, viz: automated exposure control, ma/kV adjustment per patient size (including targeted exams where dose is matched to indication, i.e. head), or iterative reconstruction technique. FINDINGS: LOWER THORAX: 4 mm noncalcified nodule right middle lobe. Subpleural 10 mm nodular opacity along the right major fissure inferiorly appears slightly larger but could be related to some difference in lung volume. There is trace right pleural effusion. 7 mm nodular opacity right middle lobe anteriorly unchanged. Two nodules in the left CP angle laterally unchanged at 4 and 5 mm. There are extensive coronary artery calcifications. ABDOMEN & PELVIS: Diffuse fatty liver. Prior cholecystectomy. The spleen pancreas and adrenal glands have an unremarkable appearance. No renal or ureteral calculi. No hydronephrosis. Small umbilical hernia containing fat. There are few air-fluid levels within the colon without distension. Mild diverticulitis once again noted involving the descending colon with minimal stranding of the pericolic fat and mild thickening of the left pericolic gutter. No evidence of abscess or perforation. Diverticulosis involves the descending and sigmoid colon. Prior hysterectomy. No evidence of small-bowel obstruction. The appendix is not clearly delineated. No evidence of appendicitis There is an epidural device present entering the canal at L5-S1 and extending cephalad to the T12 level. Subchondral lucency is present involving the anterior aspect of the femoral head on the right and may be related to avascular necrosis versus prominent subchondral cystic change. IMPRESSION: 1. No significant change diverticulitis of the descending colon. No evidence of abscess or perforation. 2. Small right pleural effusion with small bilateral pulmonary nodules 3. Avascular necrosis versus prominent subchondral cystic change right femoral head Dictated by: Wili Arriola MD 07/03/2021 13:46 Wili Arriola MD in OV 07/03/2021 13:46
--- NOTE | 2021-07-03 13:48 | PC.NURSE ---
Attempted to contact Abraham or Dr Colón in regards to pt port dislodging and fluid infiltrating chest wall. as well as pt requesting phenergan. They will call back r/t being in room
--- NOTE | 2021-07-03 14:04 | HMH.ACPN2 ---
Internal Medicine - PN: Subj *Date: 07/03/21 *Time: 19:48 Interval history: 60-year-old female patient lying in bed resting quietly awakens to verbal stimuli. She reports she is feeling better today denies any nausea or vomiting during the night. Exam Vital signs and Labs for Last 24 Hours: Temp Pulse Resp BP Pulse Ox 97.6 F 82 14 132/83 100 07/03/21 11:47 07/03/21 11:47 07/03/21 11:47 07/03/21 11:47 07/03/21 11:47 Laboratory Results - last 24 hr 07/03/21 05:28: WBC 7.9, RBC 3.63 L, Hgb 10.0 L, Hct 32.3 L, MCV 88.8, MCH 27.4, MCHC 30.9 L, RDW 16.2, Plt Count 295, MPV 8.6, Neut % (Auto) 56.1, Lymph % (Auto) 34.2, [place] % (Auto) 5.5, Eos % (Auto) 3.5, Baso % (Auto) 0.6, Neut # (Auto) 4.4, Lymph # (Auto) 2.7, [place] # (Auto) 0.4, Eos # (Auto) 0.3, Baso # (Auto) 0.1 07/03/21 05:28: Sodium 141, Potassium 3.5, Chloride 103, Carbon Dioxide 32 H, Anion Gap 9.5, BUN 9 D, Creatinine 0.90, Estimated Creat Clear 121, Estimated GFR 64, Est GFR ( Amer) 77, Glucose 152 H, Calcium 7.7 L I & O for Last 24 hours: Intake & Output 06/30/21 07/01/21 07/02/21 07/03/21 23:59 23:59 23:59 23:59 Intake Total 100 / 100 3270 / 3270 600 / 600 2230 Output Total 1111 / 1111 Balance 100 / 100 3270 / 3270 -511 / -511 2230 Weight 240 lb 2 oz 240 lb 242 lb 8.136 oz 253 lb 5 oz - Constitutional no acute distress - *Routine HEENT Exam Head: Present: normocephalic Eye: Present: EOMI ENT: Present: mucous membranes moist - *Routine Neck Exam Present: supple, trachea midline. Absent: tracheal deviation - *Routine Respiratory Exam Present: CTA bilaterally. Absent: accessory muscle use - *Routine Cardiovascular Exam Present: RRR - *Routine Abdominal Exam Present: soft, normoactive bowel sounds. Absent: tenderness, firm - *Routine Extremities Exam Present: full ROM, pulses intact. Absent: cyanosis, clubbing, edema - *Routine Skin Exam Present: intact, dry. Absent: cyanosis, erythema - *Routine Neurological Exam Present: alert, oriented X3. Absent: hemineglect - Routine Psychiatric Exam Present: normal affect, normal thought process. Absent: depressed, anxious Assessment and Plan (1) Pancreas divisum of [place] pancreas Status: Acute Category: Medical Code(s): Q45.3 - Other congenital malformations of pancreas and pancreatic duct (2) Diverticulitis Status: Acute Category: Medical Code(s): K57.92 - Diverticulitis of intestine, part unspecified, without perforation or abscess without bleeding (3) Abdominal pain Status: Acute Qualifiers: Abdominal location: generalized Qualified Code(s): R10.84 - Generalized abdominal pain Category: Medical Code(s): R10.9 - Unspecified abdominal pain (4) Acute hypotension Status: Acute Category: Medical Code(s): I95.9 - Hypotension, unspecified (5) Anxiety Status: Acute Category: Medical Code(s): F41.9 - Anxiety disorder, unspecified (6) Avascular necrosis of right femoral head Status: Acute Category: Medical Code(s): M87.051 - Idiopathic aseptic necrosis of right femur (7) Decreased oral intake Status: Acute Category: Medical Code(s): R63.8 - Other symptoms and signs concerning food and fluid intake (8) Dehydration Status: Acute Category: Medical Code(s): E86.0 - Dehydration (9) Epigastric pain Status: Acute Category: Medical Code(s): R10.13 - Epigastric pain (10) History of pancreatitis Status: Acute Category: Medical Code(s): Z87.19 - Personal history of other diseases of the digestive system (11) Hypotension Status: Acute Category: Medical Code(s): I95.9 - Hypotension, unspecified (12) Left sided colitis Status: Acute Category: Medical Code(s): K51.50 - Left sided colitis without complications (13) Morbid obesity due to excess calories Status: Acute Category: Medical Code(s): E66.01 - Morbid (severe) obesity due to excess calories (14) Pa
--- NOTE | 2021-07-03 14:47 | PC.NURSE ---
Abraham returned call at approx 1420. attempt to start US guided IV, allowing swelling to decrease in chest wall. attempt to reaccess prior to dc so that the port can be flushed with heparin. Phenergan 25mg po times 1 phenergan iv 12.5mg q6hprn n/v bactroban ointment to chest wall tid Contacted infusion dept to help with IV insertion, pt was insistent with RN to have port reaccessed instead of using US to start new iv
--- NOTE | 2021-07-03 18:07 | PC.NURSE ---
pt has requested pain meds when available this shift. pt port access became dislodged causing fluids to infiltrate into skin. MD/PRECISION LATHE OPERATOR made aware. pt refused to have peripheral iv started, instead insisted to 2 separate nurses (myself and julee gutiérrez rn)that she wanted her port re-accessed even though it was extremely swollen. pt is noted to have sleep apnea and o2 sats decrease easily when asleep. pt states that she wears CPAP at home but it was recalled and doesn't work anymore and has yet to be replaced. pt had episode of vomiting following admin of lortab, xanax and phenergan. pt then became upset with this RN when she explained that due to the risk of over sedation, I would like to wait 30 minutes and further monitor the pt to see how much of the medication was possibly absorbed, before giving any further narcotics. pt was upset and very tearful, yet agreeable. pt was able to receive 1mg of dilaudid at the agreed upon time. pt was then noted to be sleeping very soundly following admin of meds. lungs are clear, bowel sounds are active. nad noted.
[2021-07-04] VITALS (10 sets, daily range): BP systolic 97–162; BP diastolic 56–107; PULSE 60–90; RESP 12–18; TEMP 36.5–36.7; O2SAT 92–96; BMI 40.8
--- NOTE | 2021-07-04 03:36 | PC.NURSE ---
Pt is A/O x4. Pt has slept well this shift. No acute changes. Pt is on 3.5L NC. Admin pain med x1 this shift. Pt has expiratory wheezing in bilateral upper lobes. Pt uses BSC to void independently. Pt is able to make needs known to staff, call light within reach, will continue to monitor.
[2021-07-04 06:43] LABS: Chloride 101 mmol/L (98-107); Sodium 139 mmol/L (136-145)
[2021-07-04 06:47] LABS: Blood Urea Nitrogen 6 mg/dl (7-17); Calcium 7.8 mg/dl (8.4-10.2); Carbon Dioxide 33 mmol/L (22.0-30.0); Creatinine Clearance Estimated 121 mL/min (50-200); Estimated Glomerular Filt Rate 64 ml/min (>60); GFR (African American) 77 ML/MIN (>60); Glucose 133 mg/dl (74-100)
[2021-07-04 06:50] LABS: Basophils % 0.3 % (0.1-2.0); Eosinophils # 0.2 K/mm3 (0.0-0.4); Eosinophils % 2.8 % (0.1-12.0); Hematocrit 31.7 % (37.0-47.0); Hemoglobin 9.9 g/dL (12.2-16.2); Lymphocytes % 26.8 % (10-50); Mean Corpuscular HGB Conc 31.1 g/dL (31.8-35.4); Mean Corpuscular Hemoglobin 27.6 pg (27.0-31.2); Mean Corpuscular Volume 88.6 fl (81-99); Mean Platelet Volume 8.7 fl (7.4-10.4); Monocytes # 0.4 K/mm3 (0.1-1.0); Monocytes % 5.4 % (1.7-9.3); Neutrophils # 4.8 K/mm3 (1.8-7.8); Neutrophils % 64.7 % (37.0-80.0); Platelet Count 276 K/mm3 (142-424); Red Blood Count 3.58 M/mm3 (4.20-5.40); White Blood Count 7.4 K/mm3 (4.8-10.8)
--- NOTE | 2021-07-04 09:25 | HMH.ACPN ---
Internal Medicine - PN: Subj *Date: 07/04/21 *Time: 09:25 Exam Vital signs and Labs for Last 24 Hours: Temp Pulse Resp BP Pulse Ox 97.9 F 88 18 132/94 H 95 07/04/21 08:00 07/04/21 08:00 07/04/21 08:00 07/04/21 08:00 07/04/21 08:00 Laboratory Results - last 24 hr 07/04/21 05:40: WBC 7.4, RBC 3.58 L, Hgb 9.9 L, Hct 31.7 L, MCV 88.6, MCH 27.6, MCHC 31.1 L, RDW 16.0, Plt Count 276, MPV 8.7, Neut % (Auto) 64.7, Lymph % (Auto) 26.8, [place] % (Auto) 5.4, Eos % (Auto) 2.8, Baso % (Auto) 0.3, Neut # (Auto) 4.8, Lymph # (Auto) 2.0, [place] # (Auto) 0.4, Eos # (Auto) 0.2, Baso # (Auto) 0.0 07/04/21 05:40: Sodium 139, Potassium 4.0, Chloride 101, Carbon Dioxide 33 H, Anion Gap 9.0, BUN 6 L D, Creatinine 0.90, Estimated Creat Clear 121, Estimated GFR 64, Est GFR ( Amer) 77, Glucose 133 H, Calcium 7.8 L I & O for Last 24 hours: Intake & Output 07/01/21 07/02/21 07/03/21 07/04/21 23:59 23:59 23:59 23:59 Intake Total 3270 / 3270 600 / 600 5593 / 5593 1005 / 1005 Output Total 1111 / 1111 500 / 1500 1500 / 1500 Balance 3270 / 3270 -511 / -511 5093 / 4093 -495 / -495 Weight 108.862 kg 110 kg 114.901 kg 115.468 kg Assessment and Plan (1) Pancreas divisum of [place] pancreas Status: Acute Category: Medical Code(s): Q45.3 - Other congenital malformations of pancreas and pancreatic duct (2) Diverticulitis Status: Acute Category: Medical Code(s): K57.92 - Diverticulitis of intestine, part unspecified, without perforation or abscess without bleeding (3) Abdominal pain Status: Acute Qualifiers: Abdominal location: generalized Qualified Code(s): R10.84 - Generalized abdominal pain Category: Medical Code(s): R10.9 - Unspecified abdominal pain (4) Acute hypotension Status: Acute Category: Medical Code(s): I95.9 - Hypotension, unspecified (5) Anxiety Status: Acute Category: Medical Code(s): F41.9 - Anxiety disorder, unspecified (6) Avascular necrosis of right femoral head Status: Acute Category: Medical Code(s): M87.051 - Idiopathic aseptic necrosis of right femur (7) Decreased oral intake Status: Acute Category: Medical Code(s): R63.8 - Other symptoms and signs concerning food and fluid intake (8) Dehydration Status: Acute Category: Medical Code(s): E86.0 - Dehydration (9) Epigastric pain Status: Acute Category: Medical Code(s): R10.13 - Epigastric pain (10) History of pancreatitis Status: Acute Category: Medical Code(s): Z87.19 - Personal history of other diseases of the digestive system (11) Hypotension Status: Acute Category: Medical Code(s): I95.9 - Hypotension, unspecified (12) Left sided colitis Status: Acute Category: Medical Code(s): K51.50 - Left sided colitis without complications (13) Morbid obesity due to excess calories Status: Acute Category: Medical Code(s): E66.01 - Morbid (severe) obesity due to excess calories (14) Pancreatitis, chronic Status: Acute Qualifiers: Pancreatitis type: other Qualified Code(s): K86.1 - Other chronic pancreatitis Category: Medical Code(s): K86.1 - Other chronic pancreatitis (15) Renal insufficiency Status: Acute Category: Medical Code(s): N28.9 - Disorder of kidney and ureter, unspecified (16) Visceral abdominal pain Status: Acute Category: Medical Code(s): R10.9 - Unspecified abdominal pain (17) Coronary artery disease Status: Chronic Qualifiers: Coronary Disease-Associated Artery/Lesion type: [place] artery [place] vs. transplanted heart: [place] heart Associated angina: with stable angina Qualified Code(s): I25.118 - Atherosclerotic heart disease of [place] coronary artery with other forms of angina pectoris Category: Medical Code(s): I25.10 - Atherosclerotic heart disease of [place] coronary artery without angina pectoris (18) History of coronary artery stent placement Status: Chronic Category: Surgical Code
--- NOTE | 2021-07-04 10:26 | SW/DCPLANNER ---
Patient currently receives DME/home O2 from [facility]. Patient stated that she has a CPAP but it is on re-call and . Sadia Moyer stated that patient does have a CPAP machine and stated the machine is on re-call but they will call patient to see if she would like to bring machine in for them to look at it. Patient is planned to discharge home later today.
--- NOTE | 2021-07-04 16:55 | PC.NURSE ---
pt complains of feeling like she has a yeast infection. notified lam in Primary Care office. New orders from Leni Walker at 1656 Diflucan 100mg po daily
--- NOTE | 2021-07-04 17:19 | HMH.ACPN2 ---
Internal Medicine - PN: Subj *Date: 07/04/21 *Time: 08:35 Interval history: pt laying in bed states she is feeling some better but after eating yesterday she vomited numerous times and now is having increase in abd pain Exam Vital signs and Labs for Last 24 Hours: Temp Pulse Resp BP Pulse Ox 97.9 F 78 16 134/78 95 07/04/21 08:00 07/04/21 12:00 07/04/21 12:00 07/04/21 12:00 07/04/21 16:00 Laboratory Results - last 24 hr 07/04/21 05:40: WBC 7.4, RBC 3.58 L, Hgb 9.9 L, Hct 31.7 L, MCV 88.6, MCH 27.6, MCHC 31.1 L, RDW 16.0, Plt Count 276, MPV 8.7, Neut % (Auto) 64.7, Lymph % (Auto) 26.8, [place] % (Auto) 5.4, Eos % (Auto) 2.8, Baso % (Auto) 0.3, Neut # (Auto) 4.8, Lymph # (Auto) 2.0, [place] # (Auto) 0.4, Eos # (Auto) 0.2, Baso # (Auto) 0.0 07/04/21 05:40: Sodium 139, Potassium 4.0, Chloride 101, Carbon Dioxide 33 H, Anion Gap 9.0, BUN 6 L D, Creatinine 0.90, Estimated Creat Clear 121, Estimated GFR 64, Est GFR ( Amer) 77, Glucose 133 H, Calcium 7.8 L I & O for Last 24 hours: Intake & Output 07/02/21 07/03/21 07/04/21 07/05/21 11:59 11:59 11:59 11:59 Intake Total 3270 / 3270 2831 / 2831 4367 / 4367 200 / 200 Output Total 1111 / 1111 1999 / 1999 1000 / 1000 Balance 2159 / 2159 2831 / 2831 2367 / 2367 -800 / -800 Weight 241 lb 15.07 oz 253 lb 5 oz 254 lb 9 oz - Constitutional no acute distress - *Routine HEENT Exam Head: Present: normocephalic Eye: Present: PERRL ENT: Present: mucous membranes moist - *Routine Neck Exam Present: supple. Absent: lymphadenopathy - *Routine Respiratory Exam Present: CTA bilaterally - *Routine Cardiovascular Exam Present: RRR - *Routine Abdominal Exam Present: soft, normoactive bowel sounds, tenderness - *Routine Extremities Exam Absent: cyanosis, clubbing, edema - *Routine Skin Exam Present: warm. Absent: rash - *Routine Neurological Exam Present: alert, oriented X3 - Routine Psychiatric Exam Present: normal affect Assessment and Plan (1) Pancreas divisum of [place] pancreas Status: Acute Category: Medical Code(s): Q45.3 - Other congenital malformations of pancreas and pancreatic duct (2) Diverticulitis Status: Acute Category: Medical Code(s): K57.92 - Diverticulitis of intestine, part unspecified, without perforation or abscess without bleeding (3) Abdominal pain Status: Acute Qualifiers: Abdominal location: generalized Qualified Code(s): R10.84 - Generalized abdominal pain Category: Medical Code(s): R10.9 - Unspecified abdominal pain (4) Acute hypotension Status: Acute Category: Medical Code(s): I95.9 - Hypotension, unspecified (5) Anxiety Status: Acute Category: Medical Code(s): F41.9 - Anxiety disorder, unspecified (6) Avascular necrosis of right femoral head Status: Acute Category: Medical Code(s): M87.051 - Idiopathic aseptic necrosis of right femur (7) Decreased oral intake Status: Acute Category: Medical Code(s): R63.8 - Other symptoms and signs concerning food and fluid intake (8) Dehydration Status: Acute Category: Medical Code(s): E86.0 - Dehydration (9) Epigastric pain Status: Acute Category: Medical Code(s): R10.13 - Epigastric pain (10) History of pancreatitis Status: Acute Category: Medical Code(s): Z87.19 - Personal history of other diseases of the digestive system (11) Hypotension Status: Acute Category: Medical Code(s): I95.9 - Hypotension, unspecified (12) Left sided colitis Status: Acute Category: Medical Code(s): K51.50 - Left sided colitis without complications (13) Morbid obesity due to excess calories Status: Acute Category: Medical Code(s): E66.01 - Morbid (severe) obesity due to excess calories (14) Pancreatitis, chronic Status: Acute Qualifiers: Pancreatitis type: other Qualified Code(s): K86.1 - Other chronic pancreatitis Category: Medical Code(s): K86.1 - Other chronic pancreatitis
--- NOTE | 2021-07-04 23:19 | PC.NURSE ---
She is A&Ox3. She has received PRN pain medication for pain. She reports her last BM was07/04/21. She continues on 3.5LPM n/c.
[2021-07-05] VITALS: BP 111/74; PULSE 88; RESP 16; TEMP 36.6; O2SAT 92
[2021-07-05 04:00] VITALS: BP 134/97; PULSE 86; PULSE 90; RESP 20; TEMP 36.6; O2SAT 91
[2021-07-05 04:06] VITALS: O2SAT 93
[2021-07-05 05:00] VITALS: BMI 40.8
[2021-07-05 05:33] LABS: Basophils % 0.4 % (0.1-2.0); Eosinophils # 0.2 K/mm3 (0.0-0.4); Hematocrit 29.9 % (37.0-47.0); Hemoglobin 9.4 g/dL (12.2-16.2); Lymphocytes % 22.3 % (10-50); Mean Corpuscular HGB Conc 31.3 g/dL (31.8-35.4); Mean Corpuscular Hemoglobin 27.5 pg (27.0-31.2); Mean Corpuscular Volume 87.7 fl (81-99); Mean Platelet Volume 8.6 fl (7.4-10.4); Monocytes # 0.5 K/mm3 (0.1-1.0); Monocytes % 5.2 % (1.7-9.3); Neutrophils # 6.2 K/mm3 (1.8-7.8); Neutrophils % 70.1 % (37.0-80.0); Platelet Count 272 K/mm3 (142-424); Red Blood Count 3.41 M/mm3 (4.20-5.40); Red Cell Distribution Width 15.9 % (11.5-17.5); White Blood Count 8.9 K/mm3 (4.8-10.8)
--- NOTE | 2021-07-05 05:33 | PC.NURSE ---
Pt called out for pain medication. Lortab was brought in and she asked about diluadid. Dilaudid is not available at this time. She refused lortab stating that she wanted to wait until 0630 on dilaudid.
[2021-07-05 05:37] LABS: Chloride 102 mmol/L (98-107); Potassium 3.8 mmoL/L (3.5-5.1); Sodium 138 mmol/L (136-145)
[2021-07-05 05:40] LABS: Anion Gap 6.8 mEq/L (5-15); Blood Urea Nitrogen 7 mg/dl (7-17); Calcium 7.7 mg/dl (8.4-10.2); Carbon Dioxide 33 mmol/L (22.0-30.0); Creatinine Clearance Estimated 121 mL/min (50-200); Estimated Glomerular Filt Rate 64 ml/min (>60); GFR (African American) 77 ML/MIN (>60); Glucose 170 mg/dl (74-100); Lipase 18 U/L (23-300)
[2021-07-05 05:45] LABS: Amylase < 30 U/L (30-110)
--- NOTE | 2021-07-05 06:37 | PC.NURSE ---
Respiratory reported that she was snoring when they entered the room but she asked for pain medication after awakening. Nurse went to administer pain med and she was snoring. Pt awakened and given pain medication. Pt reported being upset to SRNA that nurse did not flush dilaudid in. She has fluids infusing.
[2021-07-05 08:00] VITALS: BP 114/85; PULSE 84; PULSE 88; RESP 16; TEMP 36.6; O2SAT 90
--- NOTE | 2021-07-05 09:02 | HMH.DCSUM ---
General - General Admission date:: 06/30/21 Discharge date: 07/05/21 HPI HPI: 60yo F evaluated with concern for diverticulitis from her PCP. Patient no acute distress on initial evaluation. Mild left lower quadrant tenderness. There is no gross blood on digital rectal exam but Hemoccult has been sent to the lab. Routine laboratory studies are resulted with a minor bump in WBCs, stable H&H. Metabolic panel is benign. Patient is going for CT of the abdomen pelvis with IV contrast. Patient CT scan consistent with diverticulitis. Patient is hemodynamically stable and has had no previous episode previously. She is appropriate for outpatient management at this time. Vital signs are unremarkable. Discussed outpatient plan with the patient. She states she is too weak to complete that at home. She does not feel safe going home. We will discussed the case with Dr. Colón for admission and further management. Patient has a history of pancreatic divisum, chronic abdominal pain. He also has an implantable pain device intractable pain in her back and legs. Patient relays that for 3 days prior to her admit was eating and drinking less. She did have some bright red blood per rectum on several occasions. She was Hemoccult in the emergency room. White count was 12.4 hemoglobin was 11 creatinine 1.1 K3.7 blood sugars have been in the 150 range. Hospital Course Hospital Course: 60yo F evaluated with concern for diverticulitis from her PCP. Patient no acute distress on initial evaluation. Mild left lower quadrant tenderness. There is no gross blood on digital rectal exam but Hemoccult has been sent to the lab. Routine laboratory studies are resulted with a minor bump in WBCs, stable H&H. Metabolic panel is benign. Patient is going for CT of the abdomen pelvis with IV contrast. Patient CT scan consistent with diverticulitis. Patient is hemodynamically stable and has had no previous episode previously. She is appropriate for outpatient management at this time. Vital signs are unremarkable. Discussed outpatient plan with the patient. She states she is too weak to complete that at home. She does not feel safe going home. We will discussed the case with Dr. Colón for admission and further management. Patient has a history of pancreatic divisum, chronic abdominal pain. He also has an implantable pain device intractable pain in her back and legs. Patient relays that for 3 days prior to her admit was eating and drinking less. She did have some bright red blood per rectum on several occasions. She was Hemoccult in the emergency room. White count was 12.4 hemoglobin was 11 creatinine 1.1 K3.7 blood sugars have been in the 150 range. 07/02/21 CXR: IMPRESSION: 1. Bilateral diffuse pulmonary vascular/interstitial prominence. 2. Bibasilar opacities, compatible with pleural effusions the and/or atelectasis. Electronically signed by Nico Jackman DO 07/03/21 Abd/Pelvic CT: FINDINGS: LOWER THORAX: 4 mm noncalcified nodule right middle lobe. Subpleural 10 mm nodular opacity along the right major fissure inferiorly appears slightly larger but could be related to some difference in lung volume. There is trace right pleural effusion. 7 mm nodular opacity right middle lobe anteriorly unchanged. Two nodules in the left CP angle laterally unchanged at 4 and 5 mm. There are extensive coronary artery calcifications. ABDOMEN & PELVIS: Diffuse fatty liver. Prior cholecystectomy. The spleen pancreas and adrenal glands have an unremarkable appearance. No renal or ureteral calculi. No hydronephrosis. Small umbilical hernia containing fat. There are few air-fluid levels within the colon without distension. Mild diverticulitis once again noted involving the descending colon with minimal stranding of the pericolic fat and mild thickening of the left pericolic gutter. No evidence of abscess or perforation. Diverticulosis invo
--- NOTE | 2021-07-05 09:43 | PC.NURSE ---
pt on 3L NC. O2 sat 90%.
[2021-07-05 10:22] VITALS: BMI 42.2
== END 2021-07-05 12:28 | disposition home or self-care (01) ==
LOC: ER 19:47 → 2ND 20:06 → ICU 07-01 16:41
PROVIDERS: Nurse Practitioner Family; Admitting Provider Family Medicine; Emergency Provider Family Medicine; PCP Family Medicine; Visit Provider Family Medicine
DX: K57.92 Diverticulitis of intestine, part unspecified, without perforation or abscess without bleeding (principal); Z20.822 Contact with and (suspected) exposure to COVID-19; I11.0 Hypertensive heart disease with heart failure; K86.1 Other chronic pancreatitis; I50.9 Heart failure, unspecified; I48.91 Unspecified atrial fibrillation; Z95.5 Presence of coronary angioplasty implant and graft; Z79.890 Hormone replacement therapy; Z79.899 Other long term (current) drug therapy; Z88.8 Allergy status to other drugs, medicaments and biological substances; E86.0 Dehydration; E66.01 Morbid (severe) obesity due to excess calories; Z68.41 Body mass index [BMI] 40.0-44.9, adult; I25.118 Atherosclerotic heart disease of native coronary artery with other forms of angina pectoris
CPT/HCPCS: G0378; 36415; 71045; 74176; 74177; 80048; 80053; 81001; 82150; 82272; 83605; 83690; 85025; 93306; 94640; 94760; 94761; 96365; 99284; G0328; J1642; J2405; J2543; Q9967; U0003

== ENCOUNTER 2021-07-16 14:56 | Day surgery (SDC) | payer MEDICARE, MEDICAID, SELFPAY ==
[2021-07-16 15:05] VITALS: BP 143/92; PULSE 100; RESP 18; TEMP 36.6; O2SAT 98; BMI 37.1
[2021-07-16 15:18] VITALS: BP 145/90; PULSE 94; RESP 20; O2SAT 97
[2021-07-16 15:21] VITALS: BP 147/89; PULSE 96; RESP 20; O2SAT 97
--- NOTE | 2021-07-16 15:27 | P.PCN_ITS ---
- Procedure Date: 07/16/21 Time: 15:27 Anesthesiologist:: Daniela Lopes APRN Complications:: None Pre-procedure Diagnosis:: Left hip pain, degenerative disc disease lumbar spine with lumbar radiculopathy symptoms, pancreatitis Post-procedure Diagnosis:: Same Indications for Procedure:: Patient is a 60-year-old white female who presents today for intrathecal pain pump refill and reprogram. She is very tearful today. She says she was hospitalized last week for pancreatitis. She feels she was discharged too early. She is having another bout of pancreatitis at this time. She rates her pain a 9 out of 10 and is very tearful and upset. She says that she was given Dilaudid and patient and Percocet on discharge which has not given her any relief. Her pain has returned. She is tender to palpation to her abdomen. She is also complaining of left hip pain for which she says she is unable to stand or walk due to the pain. We did discuss injective therapy which she may need to do in the future. For now we will continue her on her intrathecal therapy and increase her today. The patient has bupivacaine in her intrathecal pump due to abnormal drug screens in the past. We will not be able to give her any controlled substances. She is on bupivacaine at 2 mg/day. Physical exam General: Alert and oriented x3, no acute distress, pleasant and cooperative, [on room air] Lungs: Respirations even and unlabored, symmetrical chest expansion Eyes: PERRL Musculoskeletal: Flexion and extension of [lumbar] [spine] somewhat guarded secondary to pain, strength in upper and lower extremities [5/5], [antalgic gait noted] Neurological: Speech clear, [geek squad agent equal], no gross sensory deficit Gastrointestinal: Abdomen soft, tender to palpation Procedure Details:: Informed consent was obtained and the risk and benefits of the procedure were explained to the patient. The patient was taken to the procedure room where noninvasive monitoring was placed including noninvasive blood pressure cuff and pulse oximeter. Patient's pump was interrogated. The area over the pump was cleansed with chlorhexidine as a cleansing solution. In sterile fashion the pump was accessed with a 22-gauge needle. Approximately 3 mls of the pump solution was removed and discarded appropriately. The pump was then refilled with 20 mL's of bupivacaine 10 mg/ per mL. The needle was withdrawn and a bandage was placed over the puncture site. The infusion rate was reprogrammed at bupivacaine at 2.5 mg/day. The patient tolerated well with no complication. Plan and Disposition:: Patient plans to contact her primary care provider?Dr. Colón or Dr. So for possible admission for acute versus chronic pancreatitis. She has been advised to go to the emergency room, however, the patient says she does not feel comfortable going to the emergency room. She says that the physicians make her feel as though she is drug-seeking. She will contact her primary care provider. We will see the patient back in the clinic at the next intrathecal refill. Patient has been instructed to contact the clinic with any concerns before the next appointment. Dr. Emmanuel has reviewed this note and agrees with this plan of care. This note was dictated using voice recognition software and make contain errors or omissions.
[2021-07-16 15:40] VITALS: BP 134/84; PULSE 76; RESP 18; O2SAT 98
== END 2021-07-16 15:41 | disposition home or self-care (01) ==
LOC: SC.PAINP 14:58
PROVIDERS: PCP Family Medicine; Visit Provider Clinical Nurse Specialist Family Health
DX: M25.552 Pain in left hip (principal); M51.16 Intervertebral disc disorders with radiculopathy, lumbar region; K85.90 Acute pancreatitis without necrosis or infection, unspecified; Z45.1 Encounter for adjustment and management of infusion pump
CPT/HCPCS: 62370; 74177; 80053; 81001; 83690; 85025; 96374; 96375; 96376; 99283; J1642; J2405; Q9967

== ENCOUNTER 2021-07-16 17:12 | Emergency (ER) | payer MEDICARE, MEDICAID, SELFPAY ==
[2021-07-16 17:13] VITALS: BP 144/91; PULSE 87; RESP 18; TEMP 37.2; O2SAT 94; BMI 37.1
[2021-07-16 17:48] LABS: Microscopic, Urine URINE MICROSCOPIC (MICROSCOPIC)
[2021-07-16 17:49] LABS: Appearance,Urine CLEAR (Clear); Bilirubin,Urine Negative (Negative); Blood, Urine Negative (Negative); Color,Urine YELLOW (Yellow); Glucose,Urine (UA) Negative (Negative); Ketones,Urine Negative (Negative); Leukocyte Esterase,Urine Negative (Negative); Nitrate,Urine Negative (Negative); Protein,Urine Negative (Negative); Specific Gravity, Urine 1.015 (1.005-1.030); Urobilinogen,Urine 0.2 EU/dl (0.2)
[2021-07-16 17:57] LABS: RBC,Urine Occasional #/hpf (0-3); Squamous Epithelial Cell,Urine Occasional #/hpf (0-5); WBC,Urine Occasional #/hpf (0-3)
--- NOTE | 2021-07-16 18:05 | CT_ITS ---
PROCEDURE INFORMATION: Exam: CT Abdomen And Pelvis With Contrast Exam date and time: 07/16/2021 6:05 PM Age: 60 years old Clinical indication: Abdominal pain; Prior surgery; Additional info: Abd pain, diarrhea TECHNIQUE: Imaging protocol: Computed tomography of the abdomen and pelvis with contrast. Radiation optimization: All CT scans at this facility use at least one of these dose optimization techniques: automated exposure control; mA and/or kV adjustment per patient size (includes targeted exams where dose is matched to clinical indication); or iterative reconstruction. Contrast material: ISOVUE; Contrast volume: 75 ml; Contrast route: IV; COMPARISON: CT ABDOMEN PELVIS WO CON 07/03/2021 1:01 PM FINDINGS: Lungs: Emphysema with partially visualized nodular opacities measuring up to 7 mm within the right middle lobe. Liver: Diffuse low attenuation of the liver most likely secondary to fatty infiltration. Gallbladder and bile ducts: Post cholecystectomy change. Pancreas: Normal enhancement. No ductal dilation. Spleen: There are multiple splenic calcifications likely on the basis of prior granulomatous exposure. Adrenal glands: No mass. Kidneys and ureters: 2.8 cm low-density right renal lesion which is likely a cyst. No hydronephrosis. Stomach and bowel: Diverticulosis coli. The descending and rectosigmoid colon are decompressed and not well evaluated there is however trace stranding within the left pericolic gutter. No obstruction. Appendix: No evidence of appendicitis. Intraperitoneal space: No free air. No significant fluid collection. Vasculature: Coronary artery calcifications. Calcified atherosclerosis. No aneurysm. Lymph nodes: No enlarged lymph nodes. Urinary bladder: No acute abnormality. Reproductive: No acute abnormality. Bones/joints: Degenerative changes. No acute fracture. Soft tissues: Electronic spinal stimulator device within the right posterior subcutaneous soft tissues. IMPRESSION: 1. Emphysema with partially visualized nodular opacities measuring up to 7 mm within the right middle lobe. . For patients at high risk (history of smoking or of other known risk factors), recommend CT Chest at 3-6 months, then CT Chest at 18-24 months. (Reference: Tone) 2. Diffuse low attenuation of the liver most likely secondary to fatty infiltration. 3. Diverticulosis coli. The descending and rectosigmoid colon are decompressed and not well evaluated there is however trace stranding within the left pericolic gutter suggesting potential early colitis and or diverticulitis. References: Tone Renteria, et al. Guidelines for Management of Incidental Pulmonary Nodules Detected on CT Images: From the Fleischner Society 2017. Radiology. 2017;284(1):228-243.
--- NOTE | 2021-07-16 18:30 | HMH.EDABDPAI ---
ED Disposition Clinical Impression: Diverticulitis Disposition: Home, Self-Care Condition on Discharge: Good Instructions: DI for Diverticulitis Prescriptions: Amoxicillin/Potassium Clav [Amox-Clav 875-125 mg Tablet] 1 tab PO BID #14 tab Transmission Status: Pending to [facility] Oxycodone HCl/Acetaminophen [Percocet 5/325mg tablet] 1 tab PO Q6H PRN #5 tab PRN Reason: Moderate To Severe Pain Transmission Status: Sent to [facility] Referrals: Juan C Colón MD [Primary Care Provider] - - Critical Care Critical Care Time: No Attestation: On 07/16/21, the high probability of a clinically significant, sudden or life threatening deterioration of the following system(s) required my full and direct attention, intervention and personal management. The time I documented below is in addition to time spent performing reported procedures but includes the following listed in this critical care notation. Medical Decision Making - Medical Records Medical records reviewed: Yes: I reviewed the patient's medical records. - Delroy Inquiry Pt receiving controlled substance: No Vital Signs: 07/16/21 17:13 07/16/21 18:51 Temperature 98.9 F Temperature Source Oral Pulse Rate 102 H Pulse Rate [Left] 87 Respiratory Rate 18 Blood Pressure 116/94 H Blood Pressure [Right Arm] 144/91 H Blood Pressure Mean [Right Arm] 108 Blood Pressure Source Automatic Cuff Blood Pressure Source [Right Arm] Automatic Cuff Blood Pressure Position Sitting Blood Pressure Position [Right Arm] Supine 02 Sat by Pulse Oximetry 94 L 99 Oxygen Delivery Method Room Air Nasal Cannula Oxygen Flow Rate (LPM) 4 - Lab Data Lab Results 07/16/21 17:15: Urine Color Yellow, Urine Appearance Clear, Urine pH 6.0, Ur Specific [place] 1.015, Urine Protein Negative, Urine Glucose (UA) Negative, Urine Ketones Negative, Urine Blood Negative, Urine Nitrate Negative, Urine Bilirubin Negative, Urine Urobilinogen 0.2, Ur Leukocyte Esterase Negative, Urine RBC Occasional, Urine WBC Occasional, Ur Squamous Epith Cells Occasional, Urine Bacteria None 07/16/21 18:15: WBC 11.0 H, RBC 4.44, Hgb 12.0 L, Hct 37.9, MCV 85.3, MCH 26.9 L, MCHC 31.5 L, RDW 15.8, Plt Count 432 H, MPV 8.3, Neut % (Auto) 54.4, Lymph % (Auto) 36.4, [place] % (Auto) 5.4, Eos % (Auto) 2.9, Baso % (Auto) 0.9, Neut # (Auto) 6.0, Lymph # (Auto) 4.0, [place] # (Auto) 0.6, Eos # (Auto) 0.3, Baso # (Auto) 0.1 07/16/21 18:15: Sodium 139, Potassium 3.4 L, Chloride 100, Carbon Dioxide 31 H, Anion Gap 11.4, BUN 14, Creatinine 1.00, Estimated Creat Clear 99, Estimated GFR 57 L, Est GFR ( Amer) 68, Glucose 114 H, Calcium 8.5, Total Bilirubin 0.4, AST 27, ALT 19, Alkaline Phosphatase 144 H, Total Protein 7.2 D, Albumin 3.9, Globulin 3.3 H, Albumin/Globulin Ratio 1.2, Lipase 83 Result diagrams: 07/16/21 18:15 07/16/21 18:15 Orders (Tests/Meds): ED MEDICATIONS Generic Name Dose Route Start Last Admin Trade Name Freq PRN Reason Stop Dose Admin Sodium Chloride 1,000 mls @ 999 mls/hr 07/16/21 20:15 Sod Chlor 0.9% 1000ml Bag IV 07/16/21 21:15 .Q1H1M CRISTOPHER Discontinued Medications Generic Name Dose Route Start Last Admin Trade Name Freq PRN Reason Stop Dose Admin Hydromorphone HCl 1 mg 07/16/21 17:37 07/16/21 17:52 Hydromorphone 2mg/Ml Syringe IV 07/16/21 17:38 1 mg ONCE ONE Administration Hydromorphone HCl 0.5 mg 07/16/21 19:05 07/16/21 18:34 Hydromorphone 2mg/Ml Syringe IV 07/16/21 19:06 0.5 mg ONCE ONE Administration Iopamidol 75 ml 07/16/21 19:48 07/16/21 19:49 Iopamidol-370 (76%);100ml Bottle IV 07/16/21 19:49 75 ml ONCE ONE Administration Morphine Sulfate 4 mg 07/16/21 20:03 Morphine 4mg/Ml Syringe IV 07/16/21 20:04 ONCE ONE Ondansetron HCl 4 mg 07/16/21 17:36 07/16/21 17:53 Ondansetron 4mg/2ml Vial IV 07/16/21 17:37 4 mg ONCE ONE Administration Sodium Chloride 10 ml 07/16/21 19:48 07/01
[2021-07-16 18:51] VITALS: BP 116/94; PULSE 102; O2SAT 99
[2021-07-16 18:52] LABS: Basophils # 0.1 K/mm3 (0-0.2); Basophils % 0.9 % (0.1-2.0); Eosinophils # 0.3 K/mm3 (0.0-0.4); Eosinophils % 2.9 % (0.1-12.0); Hematocrit 37.9 % (37.0-47.0); Lymphocytes % 36.4 % (10-50); Mean Corpuscular HGB Conc 31.5 g/dL (31.8-35.4); Mean Corpuscular Hemoglobin 26.9 pg (27.0-31.2); Mean Corpuscular Volume 85.3 fl (81-99); Mean Platelet Volume 8.3 fl (7.4-10.4); Monocytes # 0.6 K/mm3 (0.1-1.0); Monocytes % 5.4 % (1.7-9.3); Neutrophils % 54.4 % (37.0-80.0); Platelet Count 432 K/mm3 (142-424); Red Blood Count 4.44 M/mm3 (4.20-5.40); Red Cell Distribution Width 15.8 % (11.5-17.5)
[2021-07-16 19:01] LABS: Chloride 100 mmol/L (98-107); Sodium 139 mmol/L (136-145)
[2021-07-16 19:02] LABS: Potassium 3.4 mmoL/L (3.5-5.1)
[2021-07-16 19:04] LABS: Alanine Aminotransferase 19 U/L (12-78); Albumin Level 3.9 g/dl (3.5-5.0); Albumin/Globulin Ratio 1.2 (1.1-1.8); Alkaline Phosphatase 144 U/L (38-126); Anion Gap 11.4 mEq/L (5-15); Aspartate Amino Transferase 27 U/L (14-36); Bilirubin,Total 0.4 mg/dl (0.2-1.3); Blood Urea Nitrogen 14 mg/dl (7-17); Calcium 8.5 mg/dl (8.4-10.2); Carbon Dioxide 31 mmol/L (22.0-30.0); Creatinine Clearance Estimated 99 mL/min (50-200); Estimated Glomerular Filt Rate 57 ml/min (>60); GFR (African American) 68 ML/MIN (>60); Globulin 3.3 g/dL (1.3-3.2); Glucose 114 mg/dl (74-100); Lipase 83 U/L (23-300); Total Protein,Serum 7.2 g/dl (6.3-8.2)
[2021-07-16 21:41] VITALS: BP 110/70; PULSE 73; RESP 18; TEMP 36.8; O2SAT 98
== END 2021-07-16 21:43 | disposition home or self-care (01) ==
PROVIDERS: Emergency Provider Emergency Medicine; PCP Family Medicine
DX: K57.92 Diverticulitis of intestine, part unspecified, without perforation or abscess without bleeding (principal); E78.5 Hyperlipidemia, unspecified; K21.9 Gastro-esophageal reflux disease without esophagitis; E11.9 Type 2 diabetes mellitus without complications; I48.91 Unspecified atrial fibrillation; J44.9 Chronic obstructive pulmonary disease, unspecified; I25.10 Atherosclerotic heart disease of native coronary artery without angina pectoris; I10 Essential (primary) hypertension; Z88.5 Allergy status to narcotic agent; Z79.899 Other long term (current) drug therapy; Z87.891 Personal history of nicotine dependence
CPT/HCPCS: 74177; 80053; 81001; 83690; 85025; 96374; 96375; 96376; 99283; J1642; J2405; Q9967

== ENCOUNTER 2021-08-12 17:11 | Emergency (ER) | payer MEDICARE, MEDICAID, SELFPAY ==
[2021-08-12 17:11] VITALS: BP 118/67; PULSE 90; RESP 18; TEMP 36.7; O2SAT 95; BMI 38.7
--- NOTE | 2021-08-12 17:58 | CT_ITS ---
PROCEDURE INFORMATION: Exam: CT Abdomen And Pelvis With Contrast Exam date and time: 08/12/2021 5:58 PM Age: 60 years old Clinical indication: Abdominal tenderness; Prior surgery; Surgery date: 6+ months; Surgery type: Gb, appendix, tonsils, hysterectomy, tubal, cardiac stents, pancreas stents, pain pump; Patient HX: Abdomen pain TECHNIQUE: Imaging protocol: Computed tomography of the abdomen and pelvis with contrast. Radiation optimization: All CT scans at this facility use at least one of these dose optimization techniques: automated exposure control; mA and/or kV adjustment per patient size (includes targeted exams where dose is matched to clinical indication); or iterative reconstruction. Contrast material: ISOVUE; Contrast volume: 75 ml; Contrast route: IV; COMPARISON: CT ABDOMEN PELVIS W CON 07/16/2021 7:32 PM FINDINGS: Tubes, catheters and devices: Spinal device. Lungs: Emphysematous changes seen in the lungs as well as bilateral dependent atelectasis. Unchanged nodule in the right middle lobe. See prior recommendations. Liver: Diffuse hypoattenuation in the liver. Gallbladder and bile ducts: Status post cholecystectomy. Pancreas: Normal. No ductal dilation. Spleen: Splenic granulomata. Adrenal glands: Normal. No mass. Kidneys and ureters: Renal hypodensities cannot be further characterized but are most likely cysts. Stomach and bowel: Sigmoid diverticulosis. Subtle associated fat stranding is seen in the mid sigmoid colon. Appendix: No evidence of appendicitis. Intraperitoneal space: Unremarkable. No free air. No significant fluid collection. Vasculature: Coronary artery calcifications. Lymph nodes: Unremarkable. No enlarged lymph nodes. Urinary bladder: Unremarkable as visualized. Reproductive: Unremarkable as visualized. Bones/joints: Unremarkable. No acute fracture. Soft tissues: Unremarkable. IMPRESSION: Mild sigmoid diverticulosis. Some subtle stranding suggests diverticulitis.
[2021-08-12 18:11] LABS: Basophils % 0.5 % (0.1-2.0); Eosinophils # 0.3 K/mm3 (0.0-0.4); Eosinophils % 3.6 % (0.1-12.0); Hematocrit 37.1 % (37.0-47.0); Hemoglobin 11.4 g/dL (12.2-16.2); Lymphocytes # 2.4 K/mm3 (0.7-4.5); Lymphocytes % 29.1 % (10-50); Mean Corpuscular HGB Conc 30.7 g/dL (31.8-35.4); Mean Corpuscular Hemoglobin 27.5 pg (27.0-31.2); Mean Corpuscular Volume 89.6 fl (81-99); Mean Platelet Volume 8.4 fl (7.4-10.4); Monocytes # 0.4 K/mm3 (0.1-1.0); Monocytes % 4.5 % (1.7-9.3); Neutrophils # 5.2 K/mm3 (1.8-7.8); Neutrophils % 62.3 % (37.0-80.0); Platelet Count 322 K/mm3 (142-424); Red Blood Count 4.14 M/mm3 (4.20-5.40); Red Cell Distribution Width 15.3 % (11.5-17.5); White Blood Count 8.3 K/mm3 (4.8-10.8)
[2021-08-12 18:16] LABS: Chloride 100 mmol/L (98-107); Sodium 138 mmol/L (136-145)
[2021-08-12 18:17] LABS: Potassium 3.4 mmoL/L (3.5-5.1)
[2021-08-12 18:19] LABS: Alanine Aminotransferase 23 U/L (12-78); Alkaline Phosphatase 129 U/L (38-126); Amylase 43 U/L (30-110); Anion Gap 13.4 mEq/L (5-15); Aspartate Amino Transferase 29 U/L (14-36); Bilirubin,Total 0.5 mg/dl (0.2-1.3); Blood Urea Nitrogen 15 mg/dl (7-17); Calcium 8.4 mg/dl (8.4-10.2); Carbon Dioxide 28 mmol/L (22.0-30.0); Creatinine Clearance Estimated 103 mL/min (50-200); Estimated Glomerular Filt Rate 57 ml/min (>60); GFR (African American) 68 ML/MIN (>60); Glucose 168 mg/dl (74-100); Lipase 59 U/L (23-300)
[2021-08-12 18:20] LABS: Albumin Level 3.7 g/dl (3.5-5.0); Albumin/Globulin Ratio 1.2 (1.1-1.8); Globulin 3.1 g/dL (1.3-3.2); Total Protein,Serum 6.8 g/dl (6.3-8.2)
[2021-08-12 19:00] VITALS: BP 117/82; PULSE 82; O2SAT 96
--- NOTE | 2021-08-12 19:27 | HMH.EDGENADL ---
ED Disposition Clinical Impression: Diverticulitis Disposition: Home, Self-Care Condition on Discharge: Good Instructions: DI for Diverticulitis Additional Instructions: Augmentin as prescribed. Oxycodone as needed for pain. Follow-up with Dr. Colón in the office, call tomorrow. Return to the emergency department if intolerable pain, vomiting, fever greater than 101 degrees. Additional instructions for CONTROLLED SUBSTANCES: You have been prescribed a medication that is a controlled substance. Controlled substances include pain medications known as opiates and sedative nerve medications known as benzodiazepines. Tramadol, fioricet, and gabapentin are also controlled substances. Some common opiates include: Codeine (such as Tylenol #3) Hydrocodone (Vicodin, Lortab, Lorcet, [place]) Oxycodone (Percocet, Percodan, Oxycodone, Oxy IR) Some common benzodiazepines include: Diazepam (Valium) Lorazepam (Ativan) Alprazolam (Xanax) Clonazepam (Klonopin) Oxazepam (Serax) All of these controlled substances are highly addictive and frequently abused. Misuse can and frequently does lead to addiction as well as overdose and . Medication should be stored in a locked cabinet or other secure storage unit. Do not store the medication in a motor vehicle. Short term supplies, 3 days or less, are prescribed because of the highly addictive nature of the medication. Any of the controlled substance medication NOT taken should be disposed of properly and NOT SAVED. The recommended method of disposing of unused medications is: Place the medicines in a sealable plastic bag. If the medicine is a solid, crush it or add water to dissolve it. Add something undesirable (cat litter, coffee grounds, etc.) Dispose of sealed bag in household trash Do not flush or pour unused medicines down a sink or drain. Controlled substances should not be shared, given away or sold. Because of the addictive nature and frequent abuse, these medications are sometimes stolen. These medications should be kept in a safe place where they cannot be stolen. Do not keep them in your car or purse. Lost or stolen prescriptions for controlled substances WILL NOT BE REFILLED in this emergency department, regardless of whether a police report was filed. Prescriptions: Oxycodone HCl [Oxycodone 5mg tab (IR)] 5 mg PO Q6HP PRN #5 tablet PRN Reason: Moderate To Severe Pain Transmission Status: Sent to [facility] Amoxicillin/Potassium Clav [Augmentin 875-125 Tablet] 1 tab PO Q12H #20 tab Referrals: Juan C Colón MD [Primary Care Provider] - - Critical Care Critical Care Time: No Attestation: On 08/12/21, the high probability of a clinically significant, sudden or life threatening deterioration of the following system(s) required my full and direct attention, intervention and personal management. The time I documented below is in addition to time spent performing reported procedures but includes the following listed in this critical care notation. Medical Decision Making - Delroy Inquiry Pt receiving controlled substance: Yes Delroy was queried for this patient: Yes Risks and benefits of using a controlled substance: were discussed with pt by me Vital Signs: 08/12/21 17:11 Temperature 98.0 F Temperature Source Oral Pulse Rate [Left Radial] 90 Respiratory Rate 18 Blood Pressure [Right Arm] 118/67 Blood Pressure Mean [Right Arm] 84 Blood Pressure Source [Right Arm] Automatic Cuff Blood Pressure Position [Right Arm] Sitting 02 Sat by Pulse Oximetry 95 Oxygen Delivery Method Nasal Cannula Oxygen Flow Rate (LPM) 2 - Lab Data Lab Results 08/12/21 17:55: WBC 8.3, RBC 4.14 L, Hgb 11.4 L, Hct 37.1, MCV 89.6, MCH 27.5, MCHC 30.7 L, RDW 15.3, Plt Count 322, MPV 8.4, Neut % (Auto) 62.3, Lymph % (Auto) 29.1, [place] % (Auto) 4.5, Eos % (Auto) 3.6, Baso % (Auto) 0.5, Neut # (Auto) 5.2, Lymph # (Auto) 2.4, [place] # (Auto) 0.4, Eos # (Auto) 0.3, Ba
[2021-08-12 20:00] VITALS: BP 96/65; PULSE 83; RESP 18; O2SAT 98
[2021-08-12 21:28] VITALS: BP 101/72; PULSE 83; RESP 18; TEMP 36.6; O2SAT 98
== END 2021-08-12 21:37 | disposition home or self-care (01) ==
PROVIDERS: Emergency Provider Emergency Medicine; PCP Family Medicine
DX: K57.92 Diverticulitis of intestine, part unspecified, without perforation or abscess without bleeding (principal); E11.9 Type 2 diabetes mellitus without complications; K21.9 Gastro-esophageal reflux disease without esophagitis; E78.5 Hyperlipidemia, unspecified; I10 Essential (primary) hypertension; I50.9 Heart failure, unspecified; Z79.899 Other long term (current) drug therapy
CPT/HCPCS: 74177; 80053; 82150; 83690; 85025; 96365; 96375; 96376; 99283; J1642; J2405; Q9967

== ENCOUNTER 2021-08-28 15:18 | Day surgery (SDC) | payer MEDICARE, MEDICAID, SELFPAY ==
[2021-08-28 15:48] VITALS: BP 190/110; PULSE 79; RESP 20; O2SAT 94; BMI 38.7
--- NOTE | 2021-08-28 15:58 | HMH.PMPROC ---
- Procedure Date: 08/28/21 Time: 15:58 Anesthesiologist:: Daniela Lopes APRN Complications:: None Pre-procedure Diagnosis:: Degenerative disc disease lumbar spine with lumbar radiculopathy symptoms Post-procedure Diagnosis:: Same Indications for Procedure:: Patient is a 60-year-old white female who presents today for intrathecal pain pump refill and reprogram. She has been treated for degenerative disc disease lumbar spine with lumbar radiculopathy symptoms. Patient does rate her pain a 4-5 out of 10. She is inquiring about opiates in her intrathecal pump. Patient is on Xanax 1 mg 1 tablet p.o. 3 times daily by primary care provider as well as previously taking oxycodone and Percocet that was given from the ER. Patient has had an appropriate drug screens in the past. We have discussed that we will not be able to put opiates in her pump due to abnormal drug screens and her use of Xanax. She is not getting much relief with her bupivacaine. Unfortunately, we are limited with options due to abnormal drug screens and risk for oversedation with opiates and misuse of other medications. Patient is currently on bupivacaine at 2.5 mg/day. Physical exam General: Alert and oriented x3, no acute distress, pleasant and cooperative, [on room air] Lungs: Respirations even and unlabored, symmetrical chest expansion Eyes: PERRL Musculoskeletal: Flexion and extension of lumbar [spine] somewhat guarded secondary to pain, strength in upper and lower extremities [5/5], [antalgic gait noted] Neurological: Speech clear, [assistant to the dean equal], no gross sensory deficit Procedure Details:: Informed consent was obtained and the risk and benefits of the procedure were explained to the patient. The patient was taken to the procedure room where noninvasive monitoring was placed including noninvasive blood pressure cuff and pulse oximeter. Patient's pump was interrogated. The area over the pump was cleansed with chlorhexidine as a cleansing solution. In sterile fashion the pump was accessed with a 22-gauge needle. Approximately 3.5 mls of the pump solution was removed and discarded appropriately. The pump was then refilled with 20 mL's of bupivacaine 10 mg per mill. The needle was withdrawn and a bandage was placed over the puncture site. The infusion rate was reprogrammed at bupivacaine 2.75 mg/day. The patient tolerated well with no complication. Plan and Disposition:: We will see the patient back in the clinic at the next intrathecal refill. Patient has been instructed to contact the clinic with any concerns before the next appointment. Dr. Emmanuel has reviewed this note and agrees with this plan of care. This note was dictated using voice recognition software and make contain errors or omissions.
[2021-08-28 16:05] VITALS: BP 187/90; PULSE 187; RESP 18; O2SAT 95
[2021-08-28 16:07] VITALS: BP 187/90; PULSE 73; RESP 18; O2SAT 95
[2021-08-28 16:10] VITALS: BP 180/100; PULSE 77; RESP 20; O2SAT 96
== END 2021-08-28 16:10 | disposition home or self-care (01) ==
LOC: SC.PAINP 15:20
PROVIDERS: PCP Family Medicine; Visit Provider Clinical Nurse Specialist Family Health
DX: M51.16 Intervertebral disc disorders with radiculopathy, lumbar region (principal); Z45.1 Encounter for adjustment and management of infusion pump
CPT/HCPCS: 62370

== ENCOUNTER 2021-09-24 13:40 | Day surgery (SDC) | payer MEDICARE, MEDICAID, SELFPAY ==
[2021-09-24 13:53] VITALS: BP 157/90; PULSE 77; RESP 20; TEMP 36.3; O2SAT 96; BMI 38.7
[2021-09-24 14:16] VITALS: BP 170/98; PULSE 88; RESP 18; O2SAT 96
[2021-09-24 14:17] VITALS: BP 164/99; PULSE 86; RESP 18; O2SAT 95
--- NOTE | 2021-09-24 14:23 | P.PCN_ITS ---
- Procedure Date: 09/24/21 Time: 14:23 Anesthesiologist:: Daniela Lopes APRN Complications:: None Pre-procedure Diagnosis:: Degenerative disc disease lumbar spine with lumbar radiculopathy symptoms, bilateral sacroiliitis Post-procedure Diagnosis:: Same Indications for Procedure:: Patient is a 61-year-old white female who presents today for intrathecal pain pump refill and reprogram. She is complaining of bilateral low back pain with radiation into her buttock and hips. She says that the pain is worse on the right side though she does have occasional pain on the left side as well. The pain is going down the right foot. She says is worse with standing and walking. The pain does improve and almost completely resolves with sitting. She does report to be getting numbness with her intrathecal boluses. We discussed changing the delivery of her medication to see if this helps with numbness her, she is requesting to change the medication in the pump. Patient does have a history of illegal substances her drug screen. This is why we did opt to use bupivacaine in her pump. She is tender to palpation to her bilateral SI joints today with positive Anayeli's, compression, distraction, Gaenslen's, and [place]'s test. She also has positive Masha's test. Physical exam General: Alert and oriented x3, no acute distress, pleasant and cooperative Lungs: Respirations even and unlabored, symmetrical chest expansion Eyes: PERRL Musculoskeletal: Flexion and extension of lumbar [spine] somewhat guarded secondary to pain, [antalgic gait noted] positive Anayeli's, compression, distraction, Gaenslen's, Cristian, Masha's test Neurological: Speech clear, no gross sensory deficit Procedure Details:: Informed consent was obtained and the risk and benefits of the procedure were explained to the patient. The patient was taken to the procedure room where noninvasive monitoring was placed including noninvasive blood pressure cuff and pulse oximeter. Patient's pump was interrogated. The area over the pump was cleansed with chlorhexidine as a cleansing solution. In sterile fashion the pump was accessed with a 22-gauge needle. Approximately 5 mls of the pump solution was removed and discarded appropriately. The pump was then refilled with 20 mL's of bupivacaine 10 mg per mill. The needle was withdrawn and a bandage was placed over the puncture site. The infusion rate was reprogrammed at bupivacaine at 3 mg/day. The patient tolerated well with no complication. Plan and Disposition:: Patient has been instructed to contact the clinic with any concerns before the next appointment. Dr. Emmanuel has reviewed this note and agrees with this plan of care. This note was dictated using voice recognition software and make contain errors or omissions.
[2021-09-24 14:30] VITALS: BP 157/96; PULSE 77; RESP 20; O2SAT 96
== END 2021-09-24 14:30 | disposition home or self-care (01) ==
LOC: SC.PAINP 13:41
PROVIDERS: PCP Family Medicine; Visit Provider Clinical Nurse Specialist Family Health
DX: M51.16 Intervertebral disc disorders with radiculopathy, lumbar region (principal); M46.1 Sacroiliitis, not elsewhere classified; Z45.1 Encounter for adjustment and management of infusion pump; I25.2 Old myocardial infarction; I25.10 Atherosclerotic heart disease of native coronary artery without angina pectoris; I73.9 Peripheral vascular disease, unspecified; I48.91 Unspecified atrial fibrillation; J44.9 Chronic obstructive pulmonary disease, unspecified; M19.90 Unspecified osteoarthritis, unspecified site; K21.9 Gastro-esophageal reflux disease without esophagitis; Z86.718 Personal history of other venous thrombosis and embolism; Z72.0 Tobacco use
CPT/HCPCS: 62370; 82043

== ENCOUNTER → 2021-09-24 18:43 | Outpatient (CLI) | payer MEDICARE, MEDICAID, SELFPAY ==
[2021-09-24 19:31] LABS: Microalbumin < 6.000 mg/L (0-16.7)
== END ==
PROVIDERS: Visit Provider Nurse Practitioner Family
DX: E11.65 Type 2 diabetes mellitus with hyperglycemia (principal)
CPT/HCPCS: 82043

== ENCOUNTER 2021-09-28 09:55 | Day surgery (SDC) | payer MEDICARE, MEDICAID, SELFPAY ==
[2021-09-28 09:58] VITALS: BP 151/92; PULSE 82; RESP 18; TEMP 36.3; O2SAT 96; BMI 24.0
[2021-09-28 10:30] VITALS: BP 139/85; PULSE 84; RESP 18; O2SAT 95
--- NOTE | 2021-09-28 10:30 | P.PCN_ITS ---
- Procedure Date: 09/28/21 Time: 10:35 Anesthesiologist:: Bakari Emmanuel MD Complications:: None Pre-procedure Diagnosis:: Sacroiliitis Post-procedure Diagnosis:: Same Indications for Procedure:: Patient is a pleasant 61-year-old white female who we are treating for bilateral hip pain and low back pain. She is tender over both SI joints. She does have a positive Anayeli's test, SI joint compression test, distraction test, Gaenslen test and [place]'s test bilaterally. We will plan on bilateral SI joint injections under fluoroscopy today. Procedure Details:: B/L SI joint injection under fluoroscopy Informed consent was obtained and the risks and benefits of the procedure was explained to the patient. The patient was taken to the procedure room and placed prone on the procedure table. The patient was prepped using ChloraPrep. The skin and subcutaneous tissues overlying the SI joints were anesthetized using lidocaine. I placed a 22-gauge needle first in the left SI joint and second in the right SI joint. Needle placement was confirmed with dye. After this we injected 5 mL bupivacaine 0.25% and Depo-Medrol 40 mg into each SI joint. Patient tolerated the procedure well with no complication. Plan and Disposition:: We will follow-up with her in 2 weeks. Will reevaluate symptoms at that time.
[2021-09-28 10:33] VITALS: BP 134/62; PULSE 79; RESP 18; O2SAT 95
[2021-09-28 10:43] VITALS: BP 173/91; PULSE 80; RESP 20; O2SAT 95
== END 2021-09-28 10:45 | disposition home or self-care (01) ==
LOC: SC.PAINP 09:56
PROVIDERS: PCP Nurse Practitioner Family; Visit Provider Anesthesiology
DX: M46.1 Sacroiliitis, not elsewhere classified (principal); I25.10 Atherosclerotic heart disease of native coronary artery without angina pectoris; I48.91 Unspecified atrial fibrillation; I10 Essential (primary) hypertension; J44.9 Chronic obstructive pulmonary disease, unspecified; K21.9 Gastro-esophageal reflux disease without esophagitis; G47.33 Obstructive sleep apnea (adult) (pediatric); Z99.81 Dependence on supplemental oxygen; I50.9 Heart failure, unspecified; Z72.0 Tobacco use; F41.9 Anxiety disorder, unspecified; F32.9 Major depressive disorder, single episode, unspecified
CPT/HCPCS: 27096; G0260; J1040; Q9966

== ENCOUNTER 2021-10-22 14:17 | Day surgery (SDC) | payer MEDICARE, MEDICAID, SELFPAY ==
[2021-10-22 14:19] VITALS: BP 136/84; PULSE 74; RESP 18; TEMP 35.8; O2SAT 95; BMI 37.9
--- NOTE | 2021-10-22 14:34 | HMH.PMPROC ---
- Procedure Date: 10/22/21 Time: 14:35 Anesthesiologist:: aDniela Lopes APRN Complications:: None Pre-procedure Diagnosis:: Degenerative disc disease lumbar spine with lumbar radiculopathy symptoms Post-procedure Diagnosis:: Same Indications for Procedure:: Patient is a pleasant 61-year-old white female who presents today for intrathecal pain pump [refill] [and reprogram]. The patient is being treated for neck low back pain. She recently had bilateral SI joint injections for which she got up to 80% relief for about 2 weeks. The patient's pain has returned. She is tender to palpation to her bilateral low back area, worse to the right side. The pain is worse with standing walking and improves with sitting.. Patient rates pain a 8 out of 10. Drug screen is appropriate. Delroy [ ] has been reviewed and is appropriate. She does not want any changes to her intrathecal pump at this time. She is currently on bupivacaine at 3 mg/day. She would like to undergo bilateral SI joint injections. If she does get relief she would like to proceed with corner lock procedure to the right side. Physical exam General: Alert and oriented x3, no acute distress, pleasant and cooperative, [on room air] Lungs: Respirations even and unlabored, symmetrical chest expansion Eyes: PERRL Musculoskeletal: Flexion and extension of bar [spine] somewhat guarded secondary to pain, [antalgic gait noted], positive Anayeli's test, positive compression test, positive distraction test, positive Masha's test bilaterally Neurological: Speech clear, no gross sensory deficit Procedure Details:: Informed consent was obtained and the risk and benefits of the procedure were explained to the patient. The patient was taken to the procedure room where noninvasive monitoring was placed including noninvasive blood pressure cuff and pulse oximeter. Patient's pump was interrogated. The area over the pump was cleansed with chlorhexidine as a cleansing solution. In sterile fashion the pump was accessed with a 22-gauge needle. Approximately 7 mls of the pump solution was removed and discarded appropriately. The pump was then refilled with 20 mL's of bupivacaine 10 mg per male. The needle was withdrawn and a bandage was placed over the puncture site. The infusion rate was reprogrammed at 50 and 3 mg/day. The patient tolerated well with no complication. Plan and Disposition:: We will schedule the patient for bilateral SI joint injections. She did get 80% relief for up to 2 weeks following her initial injection. Should the pain has returned. She has worse pain to the right side. We did discuss if she gets significant relief with repeat injection she would likely benefit from corner lock starting at the right side. We will also plan to increase the patient's concentration medication to bupivacaine 15 mg per mill next refill. Possible side effects of corticosteroids have been discussed with the patient. Risks and benefits of the procedure have been explained to the patient. Patient would like to proceed with the procedure. Patient has been instructed to contact the clinic with any concerns before the next appointment. Dr. Emmanuel has reviewed this note and agrees with this plan of care. This note was dictated using voice recognition software and make contain errors or omissions. We will see the patient back in the clinic at the next intrathecal refill. Patient has been instructed to contact the clinic with any concerns before the next appointment. Dr. Emmanuel has reviewed this note and agrees with this plan of care. This note was dictated using voice recognition software and make contain errors or omissions.
[2021-10-22 14:50] VITALS: PULSE 79; RESP 18; O2SAT 95
[2021-10-22 14:51] VITALS: PULSE 81; RESP 18; O2SAT 95
[2021-10-22 15:00] VITALS: BP 147/87; PULSE 74; RESP 20; O2SAT 93
== END 2021-10-22 15:00 | disposition home or self-care (01) ==
LOC: SC.PAINP 14:19
PROVIDERS: PCP Nurse Practitioner Family; Visit Provider Clinical Nurse Specialist Family Health
DX: M51.16 Intervertebral disc disorders with radiculopathy, lumbar region (principal); Z45.1 Encounter for adjustment and management of infusion pump
CPT/HCPCS: 62370

== ENCOUNTER 2021-10-23 19:51 | Observation (INO) | payer MEDICARE, MEDICAID, SELFPAY ==
[2021-10-23] VITALS (10 sets, daily range): BP systolic 126–177; BP diastolic 74–95; PULSE 76–85; RESP 20; TEMP 36.7; O2SAT 95–100; BMI 37.9
--- NOTE | 2021-10-23 20:14 | HMH.EDABDPAI ---
ED Disposition Clinical Impression: Diverticulitis, Uncontrolled pain Pancreatitis Qualifiers: Chronicity: chronic Pancreatitis type: other Qualified Code(s): K86.1 - Other chronic pancreatitis Disposition: Admitted As Inpatient Condition on Discharge: Fair Referrals: Juan C Colón MD [Primary Care Provider] - Time of Disposition: 00:05 - Critical Care Critical Care Time: No Attestation: On 10/23/21, the high probability of a clinically significant, sudden or life threatening deterioration of the following system(s) required my full and direct attention, intervention and personal management. The time I documented below is in addition to time spent performing reported procedures but includes the following listed in this critical care notation. Medical Decision Making - Medical Records Medical records reviewed: Yes: I reviewed the patient's medical records. - Delroy Inquiry Pt receiving controlled substance: No Vital Signs: 10/23/21 19:52 10/23/21 20:35 10/23/21 20:45 Temperature 98.1 F Temperature Source Oral Pulse Rate 77 76 Pulse Rate [Apical] 85 Respiratory Rate 20 Blood Pressure 137/85 Blood Pressure [Right Arm] 177/94 H Blood Pressure Mean [Right Arm] 121 Blood Pressure Source Automatic Cuff Blood Pressure Source [Right Arm] Automatic Cuff Blood Pressure Position Supine Blood Pressure Position [Right Arm] Sitting 02 Sat by Pulse Oximetry 99 100 99 Oxygen Delivery Method Room Air Nasal Cannula Nasal Cannula Oxygen Flow Rate (LPM) 2 2 10/23/21 20:58 10/23/21 21:01 10/23/21 21:31 Temperature Temperature Source Pulse Rate 80 82 78 Pulse Rate [Apical] Respiratory Rate Blood Pressure 137/85 150/94 H 127/81 Blood Pressure [Right Arm] Blood Pressure Mean [Right Arm] Blood Pressure Source Blood Pressure Source [Right Arm] Blood Pressure Position Blood Pressure Position [Right Arm] 02 Sat by Pulse Oximetry 99 98 98 Oxygen Delivery Method Oxygen Flow Rate (LPM) 10/23/21 22:00 10/23/21 22:40 10/23/21 23:01 Temperature Temperature Source Pulse Rate 78 81 79 Pulse Rate [Apical] Respiratory Rate Blood Pressure 126/74 149/95 H 138/93 H Blood Pressure [Right Arm] Blood Pressure Mean [Right Arm] Blood Pressure Source Blood Pressure Source [Right Arm] Blood Pressure Position Blood Pressure Position [Right Arm] 02 Sat by Pulse Oximetry 97 98 95 Oxygen Delivery Method Oxygen Flow Rate (LPM) 10/23/21 23:31 Temperature Temperature Source Pulse Rate 79 Pulse Rate [Apical] Respiratory Rate Blood Pressure 146/95 H Blood Pressure [Right Arm] Blood Pressure Mean [Right Arm] Blood Pressure Source Blood Pressure Source [Right Arm] Blood Pressure Position Blood Pressure Position [Right Arm] 02 Sat by Pulse Oximetry 95 Oxygen Delivery Method Oxygen Flow Rate (LPM) - Lab Data Lab Results 10/23/21 20:37: WBC 9.8, RBC 4.14 L, Hgb 11.7 L, Hct 35.8 L, MCV 86.4, MCH 28.1, MCHC 32.5, RDW 16.2, Plt Count 345, MPV 8.5, Neut % (Auto) 58.2, Lymph % (Auto) 33.9, [place] % (Auto) 4.3, Eos % (Auto) 2.9, Baso % (Auto) 0.8, Neut # (Auto) 5.7, Lymph # (Auto) 3.3, [place] # (Auto) 0.4, Eos # (Auto) 0.3, Baso # (Auto) 0.1 10/23/21 20:37: Sodium 136, Potassium 3.6, Chloride 100, Carbon Dioxide 28, Anion Gap 11.6, BUN 14, Creatinine 1.00, Estimated Creat Clear 99, Estimated GFR 56 L, Est GFR ( Amer) 68, Glucose 106 H, Calcium 8.9, Total Bilirubin 0.4, AST 30, ALT 25, Alkaline Phosphatase 141 H, Total Protein 6.7, Albumin 4.0, Globulin 2.7, Albumin/Globulin Ratio 1.5, Lipase 46 10/23/21 20:37: Lactate 1.2 10/23/21 22:34: Urine Color Yellow, Urine Appearance Clear, Urine pH 5.5, Ur Specific [place] 1.010, Urine Protein Negative, Urine Glucose (UA) Negative, Urine Ketones Negative, Urine Blood Trace-i, Urine Nitrate Negative, Urine Bilirubin Negative, Urine Urobilinogen 0.2, Ur Leukocyte Esterase Negative, Urine RB
[2021-10-23 20:49] LABS: Basophils # 0.1 K/mm3 (0-0.2); Basophils % 0.8 % (0.1-2.0); Eosinophils # 0.3 K/mm3 (0.0-0.4); Eosinophils % 2.9 % (0.1-12.0); Hematocrit 35.8 % (37.0-47.0); Hemoglobin 11.7 g/dL (12.2-16.2); Lymphocytes # 3.3 K/mm3 (0.7-4.5); Lymphocytes % 33.9 % (10-50); Mean Corpuscular HGB Conc 32.5 g/dL (31.8-35.4); Mean Corpuscular Hemoglobin 28.1 pg (27.0-31.2); Mean Corpuscular Volume 86.4 fl (81-99); Mean Platelet Volume 8.5 fl (7.4-10.4); Monocytes # 0.4 K/mm3 (0.1-1.0); Monocytes % 4.3 % (1.7-9.3); Neutrophils # 5.7 K/mm3 (1.8-7.8); Neutrophils % 58.2 % (37.0-80.0); Platelet Count 345 K/mm3 (142-424); Red Blood Count 4.14 M/mm3 (4.20-5.40); Red Cell Distribution Width 16.2 % (11.5-17.5); White Blood Count 9.8 K/mm3 (4.8-10.8)
[2021-10-23 20:52] LABS: Chloride 100 mmol/L (98-107)
[2021-10-23 20:53] LABS: Potassium 3.6 mmoL/L (3.5-5.1); Sodium 136 mmol/L (136-145)
[2021-10-23 20:55] LABS: Alanine Aminotransferase 25 U/L (12-78); Alkaline Phosphatase 141 U/L (38-126); Anion Gap 11.6 mEq/L (5-15); Aspartate Amino Transferase 30 U/L (14-36); Bilirubin,Total 0.4 mg/dl (0.2-1.3); Blood Urea Nitrogen 14 mg/dl (7-17); Carbon Dioxide 28 mmol/L (22.0-30.0); Creatinine Clearance Estimated 99 mL/min (50-200); Estimated Glomerular Filt Rate 56 ml/min (>60); GFR (African American) 68 ML/MIN (>60)
[2021-10-23 20:56] LABS: Albumin/Globulin Ratio 1.5 (1.1-1.8); Calcium 8.9 mg/dl (8.4-10.2); Globulin 2.7 g/dL (1.3-3.2); Glucose 106 mg/dl (74-100); Lactic Acid 1.2 mmol/L (0.7-2.1); Lipase 46 U/L (23-300); Total Protein,Serum 6.7 g/dl (6.3-8.2)
--- NOTE | 2021-10-23 21:53 | CT_ITS ---
PROCEDURE INFORMATION: Exam: CT Abdomen And Pelvis With Contrast Exam date and time: 10/23/2021 9:53 PM Age: 61 years old Clinical indication: Abdominal pain TECHNIQUE: Imaging protocol: Computed tomography of the abdomen and pelvis with contrast. Radiation optimization: All CT scans at this facility use at least one of these dose optimization techniques: automated exposure control; mA and/or kV adjustment per patient size (includes targeted exams where dose is matched to clinical indication); or iterative reconstruction. Contrast material: ISOVUE; Contrast volume: 75 ml; Contrast route: IV; COMPARISON: CT ABDOMEN PELVIS W CON 08/12/2021 6:45 PM FINDINGS: Tubes, catheters and devices: Neurostimulator device in the right flank subcutaneous tissues, with lead entering the spinal canal at the L5-S1 level and ascending with tip at the T12 level. Lungs: Mild dependent atelectasis at the lung bases. There are scattered nodules at the lung bases measuring up to 6 mm in size, unchanged. Heart: Cardiomegaly. Diaphragm: Small hiatal hernia. Liver: Hepatomegaly, measuring 21.6 cm in craniocaudal dimension. Moderate to marked hepatic steatosis, which geographic areas of fatty sparing. Gallbladder and bile ducts: Cholecystectomy. No biliary dilation. Pancreas: Unremarkable. No main pancreatic duct dilation. Spleen: Calcified granulomas in the spleen. Adrenal glands: Unremarkable. Kidneys and ureters: There is an unchanged 2.9 cm right renal cyst. No hydronephrosis. Stomach and bowel: Short segment of prominent small bowel in left upper quadrant without a focal transition point likely relates to peristalsis. No bowel obstruction. Moderate amount of solid stool throughout the colon. Colonic diverticula. There is mild stranding surrounding the junction of the descending colon and sigmoid colon, suggesting early acute diverticulitis (series 3, image 58; coronal series 1001, image 51). Previously demonstrated diverticulitis of the mid sigmoid colon has resolved. Appendix: Not visualized, presumed appendectomy. Intraperitoneal space: No ascites. No extraluminal gas or abscess. Vasculature: No abdominal aortic aneurysm. Scattered atherosclerotic plaque, most significantly involving the distal abdominal aorta and iliac vessels. Lymph nodes: No enlarged lymph nodes. Urinary bladder: Bladder is markedly distended with fluid. No wall thickening. Reproductive: Hysterectomy. 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 Remote right inferior pubic ramus fracture deformity. No acute fracture. Multilevel degenerative changes of the spine. There is a least a moderate spinal canal stenosis at L2-L3. Soft tissues: Rectus abdominis diastasis with a small fat containing umbilical hernia. IMPRESSION: 1. Suspect a new focus of mild/early acute uncomplicated diverticulitis at the junction of the descending colon and sigmoid colon. 2. Previously demonstrated diverticulitis of the mid sigmoid colon seen on CT study of 08/12/2021 has resolved. 3. Urinary bladder is distended with fluid. 4. Other chronic findings as above. COMMENTS: Consistent with the [employer]'s Incidental Findings Committee white paper (J Am Adela Radiol 2018): Any incidental renal lesion less than 1 cm or classified as too small to characterize, or any incidental cystic renal lesion characterized as simple-appearing, is likely benign. No follow-up imaging is recommended for these lesions per consensus recommendations based on imaging criteria.
[2021-10-23 22:36] LABS: Microscopic, Urine URINE MICROSCOPIC (MICROSCOPIC)
[2021-10-23 22:37] LABS: Appearance,Urine CLEAR (Clear); Bilirubin,Urine Negative (Negative); Blood, Urine TRACE-I (Negative); Color,Urine YELLOW (Yellow); Glucose,Urine (UA) Negative (Negative); Ketones,Urine Negative (Negative); Leukocyte Esterase,Urine Negative (Negative); Nitrate,Urine Negative (Negative); PH,Urine 5.5 (5.0-8.5); Protein,Urine Negative (Negative); Urobilinogen,Urine 0.2 EU/dl (0.2)
[2021-10-23 22:54] LABS: Bacteria,Urine Trace /lpf; WBC,Urine Occasional #/hpf (0-3)
[2021-10-23 23:01] LABS: Coronavirus 19, PCR Not Detected (NotDetected); Influenza A, PCR Not Detected (NotDetected); Influenza B, PCR Not Detected (NotDetected)
[2021-10-24 00:33] VITALS: BP 148/82; PULSE 107; RESP 16; TEMP 36.6; O2SAT 99
--- NOTE | 2021-10-24 00:45 | PC.NURSE ---
patient up to floor via wheelchair at this time
[2021-10-24 01:00] VITALS: BP 130/77; PULSE 79; RESP 20; TEMP 36.4; O2SAT 97
[2021-10-24 02:09] VITALS: BMI 37.3
[2021-10-24 04:00] VITALS: BP 135/95; PULSE 70; RESP 20; TEMP 36.4; O2SAT 98
[2021-10-24 06:54] LABS: Basophils # 0.1 K/mm3 (0-0.2); Basophils % 0.6 % (0.1-2.0); Eosinophils # 0.3 K/mm3 (0.0-0.4); Eosinophils % 2.8 % (0.1-12.0); Hematocrit 37.7 % (37.0-47.0); Hemoglobin 11.7 g/dL (12.2-16.2); Lymphocytes # 3.1 K/mm3 (0.7-4.5); Mean Corpuscular Hemoglobin 27.6 pg (27.0-31.2); Mean Platelet Volume 8.5 fl (7.4-10.4); Monocytes # 0.5 K/mm3 (0.1-1.0); Monocytes % 5.6 % (1.7-9.3); Neutrophils # 5.1 K/mm3 (1.8-7.8); Platelet Count 346 K/mm3 (142-424); Red Blood Count 4.23 M/mm3 (4.20-5.40); Red Cell Distribution Width 15.9 % (11.5-17.5)
[2021-10-24 06:58] LABS: Alanine Aminotransferase 22 U/L (12-78); Albumin Level 3.9 g/dl (3.5-5.0); Albumin/Globulin Ratio 1.4 (1.1-1.8); Alkaline Phosphatase 112 U/L (38-126); Anion Gap 8.9 mEq/L (5-15); Aspartate Amino Transferase 32 U/L (14-36); Bilirubin,Total 0.5 mg/dl (0.2-1.3); Blood Urea Nitrogen 12 mg/dl (7-17); Calcium 8.1 mg/dl (8.4-10.2); Carbon Dioxide 28 mmol/L (22.0-30.0); Chloride 102 mmol/L (98-107); Creatinine Clearance Estimated 98 mL/min (50-200); Estimated Glomerular Filt Rate 64 ml/min (>60); GFR (African American) 77 ML/MIN (>60); Globulin 2.8 g/dL (1.3-3.2); Glucose 143 mg/dl (74-100); Potassium 3.9 mmoL/L (3.5-5.1); Sodium 135 mmol/L (136-145); Total Protein,Serum 6.7 g/dl (6.3-8.2)
[2021-10-24 08:00] VITALS: BP 136/85; PULSE 81; RESP 22; TEMP 36.8; O2SAT 96
--- NOTE | 2021-10-24 08:15 | P.CONPHA_ITS ---
[facility] Pharmacy VTE Monitoring - Patient Demographics Admission date: 10/24/21 Report Date: 10/24/21 Time: 08:15 Allergies/Adverse Reactions: Patient Allergies codeine [CODEINE] Allergy (Intermediate, Verified 10/22/21 14:35) N/V ketorolac [KETOROLAC] Allergy (Intermediate, Verified 10/22/21 14:35) Hives meperidine [MEPERIDINE] Allergy (Intermediate, Verified 10/22/21 14:35) Hives tramadol [TRAMADOL] Allergy (Intermediate, Verified 10/22/21 14:35) Hives verapamil Allergy (Mild, Verified 10/22/21 14:35) Unknown allergy reaction ciprofloxacin Adverse Reaction (Severe, Verified 10/22/21 14:35) Interacts with cyalvaroalta Height: 1.68 m Weight: 105 kg Patient Problems: Current Active Problems Diverticulitis (Acute) Pancreatitis (Chronic) Uncontrolled pain (Chronic) - VTE Risk Labs: VTE Related Lab Results Hgb 11.7 g/dL (12.2-16.2) L 10/24/21 06:15 Hct 37.7 % (37.0-47.0) 10/24/21 06:15 Plt Count 346 K/mm3 (142-424) 10/24/21 06:15 BUN 12 mg/dl (7-17) 10/24/21 06:15 Creatinine 0.90 mg/dl (0.52-1.04) 10/24/21 06:15 Estimated Creat Clear 98 mL/min (50-200) 10/24/21 06:15 Was VTE Risk Assessment Performed: Yes VTE Risk Level: Moderate Risk Clinical Trial Participant: No - Prophylaxis VTE Prophylaxis Ordered?: Yes Types of VTE Prophylaxis: TEDS Knee High Location of Applied Device: Not Applicable
--- NOTE | 2021-10-24 08:23 | HMH.PHAINT ---
home medication list verified using list from outpatient pharmacy
[2021-10-24 08:36] LABS: Basophils # 0.1 K/mm3 (0-0.2); Basophils % 0.6 % (0.1-2.0); Eosinophils # 0.2 K/mm3 (0.0-0.4); Eosinophils % 2.8 % (0.1-12.0); Hematocrit 36.5 % (37.0-47.0); Hemoglobin 11.5 g/dL (12.2-16.2); Lymphocytes # 2.6 K/mm3 (0.7-4.5); Lymphocytes % 32.5 % (10-50); Mean Corpuscular HGB Conc 31.4 g/dL (31.8-35.4); Mean Corpuscular Volume 89.1 fl (81-99); Mean Platelet Volume 8.5 fl (7.4-10.4); Monocytes # 0.4 K/mm3 (0.1-1.0); Monocytes % 5.1 % (1.7-9.3); Neutrophils # 4.8 K/mm3 (1.8-7.8); Neutrophils % 58.9 % (37.0-80.0); Platelet Count 338 K/mm3 (142-424); White Blood Count 8.1 K/mm3 (4.8-10.8)
[2021-10-24 08:46] LABS: Anion Gap 9.9 mEq/L (5-15); Blood Urea Nitrogen 11 mg/dl (7-17); Carbon Dioxide 29 mmol/L (22.0-30.0); Chloride 103 mmol/L (98-107); Creatinine Clearance Estimated 98 mL/min (50-200); Estimated Glomerular Filt Rate 64 ml/min (>60); GFR (African American) 77 ML/MIN (>60); Glucose 101 mg/dl (74-100); Potassium 3.9 mmoL/L (3.5-5.1); Sodium 138 mmol/L (136-145)
[2021-10-24 08:46] LABS: Lipase 37 U/L (23-300)
--- NOTE | 2021-10-24 13:42 | HMH.HPDC ---
General - General Admission date:: 10/24/21 Discharge date: 10/24/21 *Admission Date: 10/24/21 *Chief complaint: abd pain *History of present illness: 61-year-old female presented to the emergency department with abdominal pain. Pain is located in the upper abdomen. Patient states the pain feels like a constant, sharp, pressure pain that radiates into her back. Patient states the pain started when she got up this am but has gotten worse over a few hours. Patient states a decreased appetite with no nausea or vomiting. History of chronic pancreatitis, pancreatic divisum. Paient admitted for pain and monitoring Labs and pain control. [facility] History I have reviewed the patient's past medical history: Yes Medical History: Reports:: Arrhythmia, Atrial Fibrillation, Congestive Heart Failure, Chronic Obstructive Pulmonary Disease (COPD), Coronary Artery Disease, Deep Vein Thrombosis, Diabetes Mellitus Type 2, Gastroesophageal Reflux Disease(GERD), Hyperlipidemia, Hypertension, Myocardial Infarction, Palpitations, Peripheral Artery Disease Denies:: Cancer, Diabetes Mellitus Type 1, Internal Pacemaker, MRSA, Seizures *Have you ever received a pneumonia vaccine?: Yes *Have you received a flu vaccine this season?: Yes Other Medical History: Reports: Arthritis, Hoarseness, Other. Denies: Blood Transfusion Reaction Laterality Cases: Bilateral: Tonsillectomy Other Surgeries: Yes: No Previous Surgery, Appendectomy, Cardiac Catheterization, Cholecystectomy, Colonoscopy, Colostomy, Coronary Stent, EGD, Hysterectomy-Total, Tubal Ligation, Other (port a cath/pain pump). No: Pacemaker Amputation: No Fractures: Yes - *Social History Smoking Status: Former smoker Tobacco Type: cigarettes # Packs/Day (cigarettes): 1 #Yrs smoked (if former smoker): 40 Alcohol Intake: never Alcohol Intake Frequency:: other Substance Use Type: marijuana, crack/cocaine *Occupational Status:: disabled Housing: house Household Members: significant other *Travel in the last 8 weeks: None Family Hx:: Diabetes, Hyperlipidemia, Hypertension, Stroke Review of Systems - Review of Systems Review of systems:: pertinent systems reviewed and negative unless documented below - Constitutional Denies body ache(s) - Eyes Denies blurry vision - ENT Denies abnormal hearing - *Cardiovascular Denies chest pain - *Respiratory Denies change in phlegm color - *Gastrointestinal Reports abdominal pain, Denies heartburn - *Genitourinary Denies abnormal periods - *Musculoskeletal Denies joint pain - Integumentary/Breasts Denies itching - *Neurologic Denies dizziness, Denies headache(s), Denies numbness - Psychiatric Denies abnormal sleep pattern - Endocrine Denies excessive sweating - Hematologic/Lymphatic Denies easy bruising - Allergic/Immunologic Denies itchy eyes Exam Vital signs and Labs for Last 24 Hours: Temp Pulse Resp BP Pulse Ox 98.3 F 81 22 136/85 96 10/24/21 08:00 10/24/21 08:00 10/24/21 08:00 10/24/21 08:00 10/24/21 08:00 Laboratory Results - last 24 hr 10/23/21 20:37: WBC 9.8, RBC 4.14 L, Hgb 11.7 L, Hct 35.8 L, MCV 86.4, MCH 28.1, MCHC 32.5, RDW 16.2, Plt Count 345, MPV 8.5, Neut % (Auto) 58.2, Lymph % (Auto) 33.9, [place] % (Auto) 4.3, Eos % (Auto) 2.9, Baso % (Auto) 0.8, Neut # (Auto) 5.7, Lymph # (Auto) 3.3, [place] # (Auto) 0.4, Eos # (Auto) 0.3, Baso # (Auto) 0.1 10/23/21 20:37: Sodium 136, Potassium 3.6, Chloride 100, Carbon Dioxide 28, Anion Gap 11.6, BUN 14, Creatinine 1.00, Estimated Creat Clear 99, Estimated GFR 56 L, Est GFR ( Amer) 68, Glucose 106 H, Calcium 8.9, Total Bilirubin 0.4, AST 30, ALT 25, Alkaline Phosphatase 141 H, Total Protein 6.7, Albumin 4.0, Globulin 2.7, Albumin/Globulin Ratio 1.5, Lipase 46 10/23/21 20:37: Lactate 1.2 10/23/21 22:34: Urine Color Yellow, Urine Appearance Clear, Urine pH 5.5, Ur Specific [place] 1.010, Urine Protein Negative, Urine Glucose (UA) Negative, Urine Ketones Negative,
[2021-10-24 14:41] VITALS: BMI 37.2
--- NOTE | 2021-10-24 14:43 | HMH.PHAINT ---
DISCHARGE MEDICATION COUNSELING COMPLETE. DISCUSSED THE SHORT-COURSE LEVAQUIN AND FLAGYL, HOW TO TAKE, WHAT TO EXPECT, POSSIBLE ADES. DISCUSSED NOT TO TAKE ANY ALCOHOL OR ALCOHOL CONTAINING PRODUCTS BY MOUTH WHILE ON THIS MEDICATION. PATIENT AND RECEPTIVE AND ENDORSED NO FURTHER QUESTIONS AT THIS TIME.
--- NOTE | 2021-10-24 14:58 | PC.NURSE ---
Port removed and flushed with heparin flush to r upper chest. Pt d/cd.
== END 2021-10-24 14:55 | disposition home or self-care (01) ==
LOC: ER 10-24 00:09 → 2ND 10-24 00:12
PROVIDERS: Nurse Practitioner Family; Admitting Provider Family Medicine; Emergency Provider Emergency Medicine; PCP Family Medicine; Visit Provider Family Medicine
DX: K57.92 Diverticulitis of intestine, part unspecified, without perforation or abscess without bleeding (principal); K85.90 Acute pancreatitis without necrosis or infection, unspecified; I25.10 Atherosclerotic heart disease of native coronary artery without angina pectoris; I48.91 Unspecified atrial fibrillation; I50.9 Heart failure, unspecified; I11.0 Hypertensive heart disease with heart failure; J44.9 Chronic obstructive pulmonary disease, unspecified; E11.9 Type 2 diabetes mellitus without complications; Z79.84 Long term (current) use of oral hypoglycemic drugs; Z79.899 Other long term (current) drug therapy; Z88.8 Allergy status to other drugs, medicaments and biological substances; Z20.822 Contact with and (suspected) exposure to COVID-19
CPT/HCPCS: G0378; 36415; 74177; 80048; 80053; 81001; 83605; 83690; 85025; 96365; 96375; 99284; C9803; J1642; J1956; Q9967; U0003; U0005

== ENCOUNTER 2021-11-08 17:08 | Observation (INO) | payer MEDICARE, MEDICAID, SELFPAY ==
[2021-11-08 17:09] VITALS: BP 128/71; PULSE 94; RESP 18; TEMP 36.7; O2SAT 96; BMI 37.9
[2021-11-08 17:34] VITALS: BP 128/72; PULSE 117; RESP 16; O2SAT 98
--- NOTE | 2021-11-08 17:34 | CT_ITS ---
PROCEDURE INFORMATION: Exam: CT Abdomen And Pelvis With Contrast Exam date and time: 11/08/2021 5:34 PM Age: 61 years old Clinical indication: Abdominal pain; Additional info: Abd pain, HX of diverticulitis TECHNIQUE: Imaging protocol: Computed tomography of the abdomen and pelvis with contrast. Radiation optimization: All CT scans at this facility use at least one of these dose optimization techniques: automated exposure control; mA and/or kV adjustment per patient size (includes targeted exams where dose is matched to clinical indication); or iterative reconstruction. Contrast material: ISOVUE; Contrast volume: 75 ml; Contrast route: IV; COMPARISON: CT ABDOMEN PELVIS W CON 10/23/2021 10:08 PM FINDINGS: Tubes, catheters and devices: Spinal stimulator device in place with intrathecal lead in stable position. Lungs: Findings in the lower thorax appear stable from prior exam. Liver: Markedly fatty liver. Hepatomegaly, measuring 21.5 cm in craniocaudal axis. Geographic areas of fatty sparing in the liver, unchanged. No suspicious liver lesions. Gallbladder and bile ducts: Status post cholecystectomy. Pancreas: Within normal limits. Spleen: Scattered punctate calcifications in the spleen, likely sequelae of prior granulomatous disease. Spleen is otherwise unremarkable. Adrenal glands: Within normal limits. Kidneys and ureters: No renal or ureteral stones. No hydronephrosis. Stable right simple renal cyst. Delayed phase imaging demonstrates symmetric excretion of contrast material into the bilateral renal collecting systems. Stomach and bowel: Focal 2.0 cm segment of circumferential bowel wall thickening in the ascending colon. Colonic diverticulosis without evidence of diverticulitis, unchanged. Appendix: No evidence of appendicitis. Intraperitoneal space: No free fluid. No pneumoperitoneum. Vasculature: Moderate amount of calcified and non-calcified arterial atherosclerosis. No abdominal aortic aneurysm or dissection. Lymph nodes: No enlarged lymph nodes by CT criteria. Urinary bladder: Within normal limits. Reproductive: Status post hysterectomy. Bones/joints: No acute osseous abnormality. Soft tissues: Small fat containing umbilical hernia, unchanged. IMPRESSION: 1. No acute findings in the abdomen or pelvis. No evidence of diverticulitis. 2. Focal 2.0 cm segment of circumferential bowel wall thickening in the ascending colon, indeterminate whether representing normal peristalsis vs 'apple-core' lesion as seen with colorectal malignancy. Persistence of colonic wall thickening in this same segment of colon is demonstrated on multiple CT exams over the past 3 months, which increases suspicion for colorectal malignancy. Consider non-emergent referral for colonoscopy. 3. Markedly fatty liver and hepatomegaly. Consider non-emergent referral to Hepatology.
[2021-11-08 18:02] LABS: Basophils # 0.1 K/mm3 (0-0.2); Basophils % 1.2 % (0.1-2.0); Eosinophils # 0.3 K/mm3 (0.0-0.4); Eosinophils % 2.3 % (0.1-12.0); Hematocrit 36.4 % (37.0-47.0); Hemoglobin 11.8 g/dL (12.2-16.2); Lymphocytes # 3.3 K/mm3 (0.7-4.5); Lymphocytes % 28.9 % (10-50); Mean Corpuscular HGB Conc 32.4 g/dL (31.8-35.4); Mean Corpuscular Hemoglobin 27.9 pg (27.0-31.2); Mean Platelet Volume 8.2 fl (7.4-10.4); Monocytes # 0.5 K/mm3 (0.1-1.0); Monocytes % 4.6 % (1.7-9.3); Neutrophils # 7.3 K/mm3 (1.8-7.8); Neutrophils % 62.9 % (37.0-80.0); Platelet Count 424 K/mm3 (142-424); Red Blood Count 4.23 M/mm3 (4.20-5.40); Red Cell Distribution Width 15.6 % (11.5-17.5); White Blood Count 11.6 K/mm3 (4.8-10.8)
[2021-11-08 18:17] LABS: Alanine Aminotransferase 29 U/L (12-78); Albumin/Globulin Ratio 1.4 (1.1-1.8); Alkaline Phosphatase 146 U/L (38-126); Amylase 64 U/L (30-110); Anion Gap 8.8 mEq/L (5-15); Aspartate Amino Transferase 38 U/L (14-36); Bilirubin,Total 0.4 mg/dl (0.2-1.3); Blood Urea Nitrogen 18 mg/dl (7-17); Carbon Dioxide 31 mmol/L (22.0-30.0); Chloride 96 mmol/L (98-107); Creatinine Clearance Estimated 99 mL/min (50-200); Estimated Glomerular Filt Rate 64 ml/min (>60); GFR (African American) 77 ML/MIN (>60); Globulin 2.9 g/dL (1.3-3.2); Glucose 128 mg/dl (74-100); Lipase 61 U/L (23-300); Potassium 3.8 mmoL/L (3.5-5.1); Sodium 132 mmol/L (136-145); Total Protein,Serum 6.9 g/dl (6.3-8.2)
--- NOTE | 2021-11-08 18:19 | HMH.EDGENADL ---
ED Disposition Clinical Impression: Abdominal pain Qualifiers: Abdominal location: lower abdomen, unspecified Qualified Code(s): R10.30 - Lower abdominal pain, unspecified Diarrhea Qualifiers: Diarrhea type: unspecified type Qualified Code(s): R19.7 - Diarrhea, unspecified Disposition: Admitted as Observation Condition on Discharge: Fair Referrals: Juan C Colón MD [Primary Care Provider] - - Critical Care Critical Care Time: No Attestation: On 11/08/21, the high probability of a clinically significant, sudden or life threatening deterioration of the following system(s) required my full and direct attention, intervention and personal management. The time I documented below is in addition to time spent performing reported procedures but includes the following listed in this critical care notation. Medical Decision Making - Delroy Inquiry Pt receiving controlled substance: Yes Delroy was queried for this patient: Yes Risks and benefits of using a controlled substance: were not discussed with pt by me Vital Signs: 11/08/21 17:09 11/08/21 17:34 Temperature 98.1 F Temperature Source Oral Pulse Rate 117 H Pulse Rate [Right Radial] 94 H Respiratory Rate 18 16 Blood Pressure 128/72 Blood Pressure [Right Arm] 128/71 Blood Pressure Mean [Right Arm] 90 Blood Pressure Source Automatic Cuff Blood Pressure Source [Right Arm] Automatic Cuff Blood Pressure Position Sitting Blood Pressure Position [Right Arm] Sitting 02 Sat by Pulse Oximetry 96 98 Oxygen Delivery Method Room Air Room Air - Lab Data Lab Results 11/08/21 17:45: WBC 11.6 H, RBC 4.23, Hgb 11.8 L, Hct 36.4 L, MCV 86.0, MCH 27.9, MCHC 32.4, RDW 15.6, Plt Count 424, MPV 8.2, Neut % (Auto) 62.9, Lymph % (Auto) 28.9, [place] % (Auto) 4.6, Eos % (Auto) 2.3, Baso % (Auto) 1.2, Neut # (Auto) 7.3, Lymph # (Auto) 3.3, [place] # (Auto) 0.5, Eos # (Auto) 0.3, Baso # (Auto) 0.1 11/08/21 17:45: Sodium 132 L, Potassium 3.8, Chloride 96 L, Carbon Dioxide 31 H, Anion Gap 8.8, BUN 18 H, Creatinine 0.90, Estimated Creat Clear 99, Estimated GFR 64, Est GFR ( Amer) 77, Glucose 128 H, Calcium 9.0, Total Bilirubin 0.4, AST 38 H, ALT 29, Alkaline Phosphatase 146 H, Total Protein 6.9, Albumin 4.0, Globulin 2.9, Albumin/Globulin Ratio 1.4, Amylase 64, Lipase 61 Result diagrams: 11/08/21 17:45 11/08/21 17:45 Orders (Tests/Meds): ED MEDICATIONS Discontinued Medications Generic Name Dose Route Start Last Admin Trade Name Freq PRN Reason Stop Dose Admin Sodium Chloride 1,000 mls @ 999 mls/hr 11/08/21 18:22 11/08/21 18:24 Sod Chlor 0.9% 1000ml Bag IV 11/08/21 19:22 999 mls/hr .Q1H1M ONE Administration Iopamidol 75 ml 11/08/21 19:40 11/08/21 19:41 Iopamidol-370 (76%);100ml Bottle IV 11/08/21 19:41 75 ml ONCE ONE Administration Morphine Sulfate 4 mg 11/08/21 18:40 11/08/21 18:43 Morphine 4mg/Ml Syringe IV 11/08/21 18:41 4 mg ONCE ONE Administration Morphine Sulfate 4 mg 11/08/21 20:46 11/08/21 20:47 Morphine 4mg/Ml Syringe IV 11/08/21 20:47 4 mg ONCE ONE Administration Ondansetron HCl 4 mg 11/08/21 18:22 11/08/21 18:24 Ondansetron 4mg/2ml Vial IV 11/08/21 18:23 4 mg ONCE ONE Administration Sodium Chloride 10 ml 11/08/21 19:40 11/08/21 19:41 Sodium Chloride 0.9% 10ml Syr (Rad Only) IV 11/08/21 19:41 10 ml ONCE ONE Administration ORDERS Category Date Time Status Diarrhea 6-11 Panel, Cdiff PCR Stat Lab 11/08/21 17:40 Ordered - CT Data CT Scan: Abdomen, Pelvis Time Received: 21:[address] Reviewed: Yes: I have viewed the radiologist's interpretation Findings Narrative: PROCEDURE INFORMATION: Exam: CT Abdomen And Pelvis With Contrast Exam date and time: 11/08/2021 5:34 PM Age: 61 years old Clinical indication: Abdominal pain; Additional info: Abd pain, HX of diverticulitis TECHNIQUE: Imaging protocol: Computed tomography of the abdomen and pelvis with contrast. Radi
[2021-11-08 21:30] VITALS: BP 96/57; PULSE 78; O2SAT 96
[2021-11-08 22:29] VITALS: BMI 38.7
[2021-11-08 22:35] LABS: Coronavirus 19, PCR Not Detected (NotDetected); Influenza A, PCR Not Detected (NotDetected); Influenza B, PCR Not Detected (NotDetected)
[2021-11-08 23:07] VITALS: BP 96/57; PULSE 68; RESP 16; TEMP 37.1; O2SAT 97
[2021-11-08 23:12] VITALS: BP 92/51; PULSE 85; RESP 14; TEMP 36.8; O2SAT 96
--- NOTE | 2021-11-08 23:18 | PC.NURSE ---
pt arrived to the floor at this time
[2021-11-08 23:32] VITALS: BP 128/74; PULSE 80; RESP 19; TEMP 36.4; O2SAT 92
--- NOTE | 2021-11-09 03:16 | PC.NURSE ---
A&OX4. TOLERATING 2.5L NC WELL. PT HAS HAD INTERMITTENT C/O ABD PAIN. TX PER JAN. PT HAS HAD NO NA/VO OR EPISODES OF DIARRHEA SINCE ARRIVAL TO FLOOR. PT HAS BEEN EDUCATED ON DIARRHEA SAMPLE TO BE COLLECTED. HAS TOLERATED NPO DIET WELL. UP INDEPENDENTLY IN ROOM. VSS WILL CONTINUE TO MONITOR.
[2021-11-09 04:00] VITALS: BP 107/55; PULSE 62; RESP 19; TEMP 36.6; O2SAT 94
[2021-11-09 04:36] VITALS: BMI 38.2
[2021-11-09 05:31] LABS: POC Glucose,Bedside 109 (70-110)
[2021-11-09 06:11] LABS: Basophils # 0.1 K/mm3 (0-0.2); Basophils % 1.3 % (0.1-2.0); Eosinophils # 0.3 K/mm3 (0.0-0.4); Eosinophils % 2.6 % (0.1-12.0); Hematocrit 36.3 % (37.0-47.0); Hemoglobin 11.6 g/dL (12.2-16.2); Lymphocytes # 3.6 K/mm3 (0.7-4.5); Lymphocytes % 35.6 % (10-50); Mean Corpuscular HGB Conc 31.8 g/dL (31.8-35.4); Mean Corpuscular Hemoglobin 28.1 pg (27.0-31.2); Mean Corpuscular Volume 88.5 fl (81-99); Mean Platelet Volume 8.3 fl (7.4-10.4); Monocytes # 0.5 K/mm3 (0.1-1.0); Neutrophils # 5.7 K/mm3 (1.8-7.8); Neutrophils % 55.7 % (37.0-80.0); Platelet Count 406 K/mm3 (142-424); Red Blood Count 4.11 M/mm3 (4.20-5.40); Red Cell Distribution Width 15.5 % (11.5-17.5); White Blood Count 10.2 K/mm3 (4.8-10.8)
[2021-11-09 06:20] LABS: Chloride 99 mmol/L (98-107); Potassium 4.5 mmoL/L (3.5-5.1); Sodium 137 mmol/L (136-145)
[2021-11-09 06:23] LABS: Anion Gap 12.5 mEq/L (5-15); Blood Urea Nitrogen 16 mg/dl (7-17); Carbon Dioxide 30 mmol/L (22.0-30.0); Creatinine Clearance Estimated 100 mL/min (50-200); Estimated Glomerular Filt Rate 56 ml/min (>60); GFR (African American) 68 ML/MIN (>60)
[2021-11-09 06:24] LABS: Calcium 8.1 mg/dl (8.4-10.2); Glucose 121 mg/dl (74-100)
--- NOTE | 2021-11-09 07:05 | P.CONPHA_ITS ---
[facility] Pharmacy VTE Monitoring - Patient Demographics Admission date: 11/08/21 Report Date: 11/09/21 Time: 07:05 Allergies/Adverse Reactions: Patient Allergies codeine [CODEINE] Allergy (Intermediate, Verified 10/22/21 14:35) N/V ketorolac [KETOROLAC] Allergy (Intermediate, Verified 10/22/21 14:35) Hives meperidine [MEPERIDINE] Allergy (Intermediate, Verified 10/22/21 14:35) Hives tramadol [TRAMADOL] Allergy (Intermediate, Verified 10/22/21 14:35) Hives verapamil Allergy (Mild, Verified 10/22/21 14:35) Unknown allergy reaction ciprofloxacin Adverse Reaction (Severe, Verified 10/22/21 14:35) Interacts with cindyalta Height: 1.68 m Weight: 107.757 kg Patient Problems: Current Active Problems Diarrhea (Acute) Abdominal pain (Acute) - VTE Risk Labs: VTE Related Lab Results Hgb 11.6 g/dL (12.2-16.2) L 11/09/21 05:50 Hct 36.3 % (37.0-47.0) L 11/09/21 05:50 Plt Count 406 K/mm3 (142-424) 11/09/21 05:50 BUN 16 mg/dl (7-17) 11/09/21 05:50 Creatinine 1.00 mg/dl (0.52-1.04) 11/09/21 05:50 Estimated Creat Clear 100 mL/min (50-200) 11/09/21 05:50 - Prophylaxis VTE Prophylaxis Ordered?: Yes Types of VTE Prophylaxis: TEDS Knee High Location of Applied Device: Bilateral Lower Extremeties
[2021-11-09 08:00] VITALS: BP 81/54; PULSE 81; RESP 16; TEMP 36.5; O2SAT 92
--- NOTE | 2021-11-09 10:03 | HMH.HPDC ---
General - General Admission date:: 11/08/21 Discharge date: 11/09/21 *Admission Date: 11/08/21 *Chief complaint: abd pain *History of present illness: 61 yr old female presented toe ed with watery diarrhea and lower abdominal pain, typical of previous episodes of diverticulitis, starting yesterday. Denies blood in stool. Denies fever. Denies vomiting. She also has a history of pancreas divisum with recurrent/chronic pancreatitis. Her pain from that is usually upper abdomen and she is not experiencing upper abdominal pain. Pt was admitted for eval and pain control. [facility] History I have reviewed the patient's past medical history: Yes Medical History: Reports:: Arrhythmia, Atrial Fibrillation, Congestive Heart Failure, Chronic Obstructive Pulmonary Disease (COPD), Congenital Heart Disease, Coronary Artery Disease, Deep Vein Thrombosis, Diabetes Mellitus Type 2, Gastroesophageal Reflux Disease(GERD), Hyperlipidemia, Hypertension, Myocardial Infarction, Palpitations, Peripheral Artery Disease Denies:: Cancer, Diabetes Mellitus Type 1, Internal Pacemaker, MRSA, Seizures *Have you ever received a pneumonia vaccine?: Yes *Have you received a flu vaccine this season?: Yes Other Medical History: Reports: Arthritis, Hoarseness, Other. Denies: Blood Transfusion Reaction Laterality Cases: Bilateral: Tonsillectomy Other Surgeries: Yes: No Previous Surgery, Appendectomy, Cardiac Catheterization, Cholecystectomy, Colonoscopy, Colostomy, Coronary Stent, EGD, Hysterectomy-Total, Tubal Ligation, Other (port a cath/pain pump). No: Pacemaker Amputation: No Fractures: Yes - *Social History Smoking Status: Former smoker Tobacco Type: cigarettes # Packs/Day (cigarettes): 1 #Yrs smoked (if former smoker): 40 Alcohol Intake: never Alcohol Intake Frequency:: other Substance Use Type: marijuana, crack/cocaine *Occupational Status:: disabled Housing: house Household Members: significant other *Travel in the last 8 weeks: None Family Hx:: No significant family history Exam Vital signs and Labs for Last 24 Hours: Temp Pulse Resp BP Pulse Ox 97.8 F 62 19 107/55 L 94 L 11/09/21 04:00 11/09/21 04:00 11/09/21 04:00 11/09/21 04:00 11/09/21 04:00 Laboratory Results - last 24 hr 11/08/21 17:45: WBC 11.6 H, RBC 4.23, Hgb 11.8 L, Hct 36.4 L, MCV 86.0, MCH 27.9, MCHC 32.4, RDW 15.6, Plt Count 424, MPV 8.2, Neut % (Auto) 62.9, Lymph % (Auto) 28.9, [place] % (Auto) 4.6, Eos % (Auto) 2.3, Baso % (Auto) 1.2, Neut # (Auto) 7.3, Lymph # (Auto) 3.3, [place]ley # (Auto) 0.5, Eos # (Auto) 0.3, Baso # (Auto) 0.1 11/08/21 17:45: Sodium 132 L, Potassium 3.8, Chloride 96 L, Carbon Dioxide 31 H, Anion Gap 8.8, BUN 18 H, Creatinine 0.90, Estimated Creat Clear 99, Estimated GFR 64, Est GFR ( Amer) 77, Glucose 128 H, Calcium 9.0, Total Bilirubin 0.4, AST 38 H, ALT 29, Alkaline Phosphatase 146 H, Total Protein 6.9, Albumin 4.0, Globulin 2.9, Albumin/Globulin Ratio 1.4, Amylase 64, Lipase 61 11/08/21 22:31: SARS-CoV-2 (PCR) Not detected, Influenza A Untype (PCR) Not detected, Influenza Type B (PCR) Not detected 11/09/21 04:56: POC Glucose 109 11/09/21 05:50: WBC 10.2, RBC 4.11 L, Hgb 11.6 L, Hct 36.3 L, MCV 88.5, MCH 28.1, MCHC 31.8, RDW 15.5, Plt Count 406, MPV 8.3, Neut % (Auto) 55.7, Lymph % (Auto) 35.6, Schley % (Auto) 5.0, Eos % (Auto) 2.6, Baso % (Auto) 1.3, Neut # (Auto) 5.7, Lymph # (Auto) 3.6, Schley # (Auto) 0.5, Eos # (Auto) 0.3, Baso # (Auto) 0.1 11/09/21 05:50: Sodium 137, Potassium 4.5, Chloride 99, Carbon Dioxide 30, Anion Gap 12.5, BUN 16, Creatinine 1.00, Estimated Creat Clear 100, Estimated GFR 56 L, Est GFR ( Amer) 68, Glucose 121 H, Calcium 8.1 L I & O for Last 24 hours: Intake & Output 11/06/21 11/07/21 11/08/21 11/09/21 11:59 11:59 11:59 11:59 Intake Total 1000 / 1000 Balance 1000 / 1000 Weight 237 lb 9 oz - Constitutional no acute distress - *Routine HEENT Exam Head: Present: normocephalic Eye: Present: PERRL ENT: Present:
[2021-11-09 11:35] LABS: POC Glucose,Bedside 157 (70-110)
== END 2021-11-09 13:30 | disposition home or self-care (01) ==
LOC: ER 21:13 → 2ND 22:30
PROVIDERS: Admitting Provider Family Medicine; Emergency Provider Emergency Medicine; PCP Family Medicine; Visit Provider Family Medicine
DX: I50.9 Heart failure, unspecified (principal); I25.10 Atherosclerotic heart disease of native coronary artery without angina pectoris; E11.9 Type 2 diabetes mellitus without complications; I48.91 Unspecified atrial fibrillation; K21.9 Gastro-esophageal reflux disease without esophagitis; J44.9 Chronic obstructive pulmonary disease, unspecified; Z79.899 Other long term (current) drug therapy; Z20.822 Contact with and (suspected) exposure to COVID-19; R19.7 Diarrhea, unspecified; R10.9 Unspecified abdominal pain
CPT/HCPCS: G0378; 74177; 80048; 80053; 82150; 82962; 83690; 85025; 96365; 96375; 96376; 99284; C9803; J1642; J2405; Q9967; U0003; U0005

== ENCOUNTER 2021-11-19 14:12 | Day surgery (SDC) | payer MEDICARE, MEDICAID, SELFPAY ==
[2021-11-19 14:18] VITALS: BP 82/36; PULSE 71; RESP 18; TEMP 36.8; O2SAT 92; BMI 38.7
[2021-11-19 14:30] VITALS: BP 128/86; PULSE 71; RESP 18; O2SAT 97
[2021-11-19 14:32] VITALS: PULSE 100; RESP 18; O2SAT 94
--- NOTE | 2021-11-19 14:36 | HMH.PMPROC ---
- Procedure Date: 11/19/21 Time: 14:36 Anesthesiologist:: Daniela Lopes APRN Complications:: None Pre-procedure Diagnosis:: Degenerative disc disease of lumbar spine with lumbar radiculopathy symptoms Post-procedure Diagnosis:: Same Indications for Procedure:: Patient is a pleasant 61-year-old female who presents today for intrathecal pain pump [refill] [and reprogram]. The patient is being treated for degenerative disc disease of the lumbar spine with lumbar radiculopathy symptoms. Patient is currently being managed with bupivacaine 10 mg/mL at a rate of 3 mg/day. Patient denies any side effects from this medication. Patient does not want an increase today. Patient was supposed to be scheduled for a right SI injection however the patient was hospitalized for diverticulitis. Patient would like to reschedule this injection. Patient rates pain a 6 out of 10. Drug screen is appropriate. Delroy [id number] has been reviewed and is appropriate. Physical exam General: Alert and oriented x3, no acute distress, pleasant and cooperative, [on room air] Lungs: Respirations even and unlabored, symmetrical chest expansion Eyes: PERRL Musculoskeletal: Flexion and extension of lumbar [spine] somewhat guarded secondary to pain; Right Hip: Positive damari, ilene, compression, and distraction Neurological: Speech clear, no gross sensory deficit Procedure Details:: Informed consent was obtained and the risk and benefits of the procedure were explained to the patient. The patient was taken to the procedure room where noninvasive monitoring was placed including noninvasive blood pressure cuff and pulse oximeter. Patient's pump was interrogated. The area over the pump was cleansed with chlorhexidine as a cleansing solution. In sterile fashion the pump was accessed with a 22-gauge needle. Approximately 10 mls of the pump solution was removed and discarded appropriately. The pump was then refilled with 20 mL's of bupivacaine 15 mg/mL. The needle was withdrawn and a bandage was placed over the puncture site. The infusion rate was reprogrammed at bupivacaine 3 mg/day. The patient tolerated well with no complication. Plan and Disposition:: We will see the patient back in the clinic at the next intrathecal refill. Patient has been instructed to contact the clinic with any concerns before the next appointment. Dr. Emmanuel has reviewed this note and agrees with this plan of care. This note was dictated using voice recognition software and make contain errors or omissions.
[2021-11-19 14:50] VITALS: BP 96/59; PULSE 83; RESP 20; O2SAT 94
== END 2021-11-19 14:50 | disposition home or self-care (01) ==
LOC: SC.PAINP 14:13
PROVIDERS: PCP Family Medicine; Visit Provider Clinical Nurse Specialist Family Health
DX: M51.16 Intervertebral disc disorders with radiculopathy, lumbar region (principal); Z45.1 Encounter for adjustment and management of infusion pump; R13.10 Dysphagia, unspecified; I25.2 Old myocardial infarction; I50.9 Heart failure, unspecified; I25.10 Atherosclerotic heart disease of native coronary artery without angina pectoris; I73.9 Peripheral vascular disease, unspecified; E78.5 Hyperlipidemia, unspecified; I10 Essential (primary) hypertension; E11.9 Type 2 diabetes mellitus without complications; J44.9 Chronic obstructive pulmonary disease, unspecified; K21.9 Gastro-esophageal reflux disease without esophagitis
CPT/HCPCS: 95991

== ENCOUNTER 2021-11-21 11:16 | Day surgery (SDC) | payer MEDICARE, MEDICAID, SELFPAY ==
[2021-11-21 11:22] VITALS: BP 128/85; BP 135/93; PULSE 88; PULSE 98; RESP 20; TEMP 37.1; O2SAT 95; O2SAT 96; BMI 38.7
[2021-11-21 11:35] VITALS: BP 186/72; PULSE 49; RESP 18; O2SAT 96
--- NOTE | 2021-11-21 11:37 | P.PCN_ITS ---
- Procedure Date: 11/21/21 Time: 11:37 Anesthesiologist:: Bakari Emmanuel MD Complications:: None Pre-procedure Diagnosis:: Sacroiliitis Post-procedure Diagnosis:: Same Indications for Procedure:: Patient is a pleasant 61-year-old white female who we are treating for bilateral hip pain. She is tender over both SI joints. She does have a positive Anayeli's test bilaterally. She is positive Cristian test bilaterally. She has a positive SI joint compression test bilaterally. We will plan on bilateral SI joint injections under fluoroscopy today. She got 80% relief in her symptoms last t mono with these injections. These only lasted about 2 weeks. The pain is now returned. We will do repeat bilateral SI joint injections under fluoroscopy today. Procedure Details:: B/L SI joint injection under fluoroscopy Informed consent was obtained and the risks and benefits of the procedure was explained to the patient. The patient was taken to the procedure room and placed prone on the procedure table. The patient was prepped using ChloraPrep. The skin and subcutaneous tissues overlying the SI joints were anesthetized using lidocaine. I placed a 22-gauge needle first in the left SI joint and second in the right SI joint. Needle placement was confirmed with dye. After this we injected 5 mL bupivacaine 0.25% and Depo-Medrol 40 mg into each SI joint. Patient tolerated the procedure well with no complication. Plan and Disposition:: We will follow-up with her in 2 weeks. Will reevaluate symptoms at that time. If she does not get at least a month relief with these injections she would be a candidate for right SI joint stabilization with Cornerloc. Worst pain is on the right side. She also has a bupivacaine intrathecal pain pump. She is doing well with her pain pump.
[2021-11-21 11:38] VITALS: PULSE 84; RESP 18; O2SAT 97
== END 2021-11-21 11:49 | disposition home or self-care (01) ==
LOC: SC.PAINP 11:17
PROVIDERS: PCP Family Medicine; Visit Provider Anesthesiology
DX: M46.1 Sacroiliitis, not elsewhere classified (principal); R13.10 Dysphagia, unspecified; I25.2 Old myocardial infarction; I50.9 Heart failure, unspecified; I25.10 Atherosclerotic heart disease of native coronary artery without angina pectoris; E78.5 Hyperlipidemia, unspecified; I48.91 Unspecified atrial fibrillation; I10 Essential (primary) hypertension; J44.9 Chronic obstructive pulmonary disease, unspecified; E11.9 Type 2 diabetes mellitus without complications; K21.9 Gastro-esophageal reflux disease without esophagitis; Z86.718 Personal history of other venous thrombosis and embolism
CPT/HCPCS: 27096; G0260; J1040; Q9966

== ENCOUNTER → 2021-12-13 15:31 | Outpatient (POV) | payer MEDICARE, MEDICAID, SELFPAY ==
[2021-12-13 15:42] VITALS: BP 133/81; PULSE 81; RESP 18; O2SAT 95; BMI 38.7
--- NOTE | 2021-12-24 08:28 | HMH.PAINSOAP ---
[facility] Pain Management SOAP Note Subjective:: Patient is a 61-year-old presents today for follow-up injection. Patient does have an intrathecal pain pump implanted with bupivacaine. She is having significant pain to her right low back area with radiation into right buttock and right hip. The SI injection has given her up to 80 to 90% relief for 2 weeks. Pain does return. She has tried and failed conservative therapies of physical therapy for more than 6 weeks, home stretching, and oral medications. The patient has done very well with multiple rounds of SI injections to the area, however, the pain relief is short-lived. She would like to proceed with a corner lock stabilization procedure to the area. She has pain with standing, walking, improved with sitting. She is tender to palpation to her right SI joint. Review of Systems General: No recent weight changes, no fever, no sleep disturbances Respiratory: No cough, no shortness of air, no recurring pulmonary infections Cardiovascular/peripheral vascular: No chest pain, no palpitations, no edema, no shortness of breath Gastrointestinal: No new onset incontinence, normal bowel movements reported Genitourinary: No new onset incontinence Musculoskeletal: Right low back pain with radiation into right buttock, right hip Psychiatric: [Normal mood/affect] Neurological: [Denies weakness in extremities], [denies balance issues] Objective:: Physical exam General: Alert and oriented x3, no acute distress, pleasant and cooperative Lungs: Respirations even and unlabored, symmetrical chest expansion Eyes: PERRL Musculoskeletal: Flexion and extension of lumbar [spine] somewhat guarded secondary to pain, [antalgic gait noted], positive Masha's test, positive Anayeli's test, positive compression test, positive Gaenslen's test, positive Cristian test Neurological: Speech clear, no gross sensory deficit Assessment:: Right sacroiliitis Plan:: We will schedule the patient for a right corner lock stabilization procedure. She has had multiple rounds of right SI injections which gave her 80 to 90% relief for up to 2 weeks. She has tried conservative therapies with minimal relief. We will see her back in the clinic after her stabilization procedure for further evaluation. She is not on any anticoagulation therapy. Risks and benefits of the procedure have been explained to the patient. Patient would like to proceed with the procedure. Patient has been instructed to contact the clinic with any concerns before the next appointment. Dr. Bux has reviewed this note and agrees with this plan of care. This note was dictated using voice recognition software and make contain errors or omissions. [facility] History I have reviewed the patient's past medical history: Yes Medical History: Reports:: Arrhythmia, Atrial Fibrillation, Congestive Heart Failure, Chronic Obstructive Pulmonary Disease (COPD), Congenital Heart Disease, Coronary Artery Disease, Deep Vein Thrombosis, Diabetes Mellitus Type 2, Gastroesophageal Reflux Disease(GERD), Hyperlipidemia, Hypertension, Myocardial Infarction, Palpitations, Peripheral Artery Disease Denies:: Cancer, Diabetes Mellitus Type 1, Internal Pacemaker, MRSA, Seizures *Have you ever received a pneumonia vaccine?: Yes *Have you received a flu vaccine this season?: Yes Other Medical History: Reports: Arthritis, Hoarseness, Other. Denies: Blood Transfusion Reaction Laterality Cases: Bilateral: Tonsillectomy Other Surgeries: Yes: No Previous Surgery, Appendectomy, Cardiac Catheterization, Cholecystectomy, Colonoscopy, Colostomy, Coronary Stent, EGD, Hysterectomy-Total, Tubal Ligation, Other (port a cath/pain pump). No: Pacemaker Amputation: No Fractures: Yes - *Social History Smoking Status: Former smoker Tobacco Type: cigarettes # Packs/Day (cigarettes): 1 #Yrs smoked (if former smoker): 40 Alcohol Intake: never Alcohol Intake Frequency:: other Substance Use Type: gosia
== END ==
PROVIDERS: Visit Provider Clinical Nurse Specialist Family Health
DX: M46.1 Sacroiliitis, not elsewhere classified (principal)
CPT/HCPCS: 99212; G0463

== ENCOUNTER 2021-12-16 17:35 | Emergency (ER) | payer MEDICARE, MEDICAID, SELFPAY ==
--- NOTE | 2021-12-16 17:34 | ECG_ITS ---
APPROVED REPORT Exam: Resting ECG HR:82 bpm ECG Measurements Heart Rate 82 AXES OR 178 P 78 QRSd 94 QRS 50 QT 420 T 74 QTc 490 Conclusion Normal sinus rhythm Prolonged QT Abnormal ECG Electronically signed by : Oskar Eugene MD 12/18/2021 19:59:22
[2021-12-16 17:35] VITALS: BP 125/89; PULSE 86; RESP 18; O2SAT 94; BMI 38.7
--- NOTE | 2021-12-16 17:36 | XR_ITS ---
PROCEDURE INFORMATION: Exam: XR Chest Exam date and time: 12/16/2021 5:36 PM Age: 61 years old Clinical indication: Sternal or substernal pain; Additional info: Chest pain TECHNIQUE: Imaging protocol: XR of the chest. Views: 1 view. COMPARISON: CR XR CHEST PORTABLE 07/02/2021 5:14 AM FINDINGS: Tubes, catheters and devices: Right IJ Port-A-Cath tip in the SVC. Lungs: Bilateral airspace disease concerning for edema/pneumonia. Pleural spaces: Unremarkable. No pleural effusion. No pneumothorax. Heart/Mediastinum: Unremarkable. No cardiomegaly. Bones/joints: Unremarkable. IMPRESSION: 1. Bilateral airspace disease concerning for edema/pneumonia. 2. Cardiomegaly
--- NOTE | 2021-12-16 17:40 | HMH.EDCP ---
ED Disposition Clinical Impression: Pneumonia, COPD exacerbation, Pulmonary edema Disposition: Home, Self-Care Condition on Discharge: Good Instructions: Pneumonia-Adult, Chronic Obstructive Pulmonary Disease, Edema Additional Instructions: Please follow up with your cardiology team regarding your atypical chest pain. Please return for any concerning symptoms such as difficulty breathing, reoccurence of chest pain, heart palpitations or any other concerning symptoms. Please follow up with your primary care physician in 2-3 days for further management. Please discuss with your primary care team regarding your fluid status and possibly starting a diuretic, concern that your chest x ray shows pulmonary edema. Please also take the zpak antibiotic as prescribed due to concern for early stage pneumonia. Please use your inhaler 4 puffs every 4 hours for the next 2 days and then as needed. Please continue to use your oxygen at home. Prescriptions: Azithromycin [Z-Matt 250mg Tab] 250 mg PO DIRECTED #6 tab Transmission Status: Received by [facility] Referrals: Juan C Colón MD [Primary Care Provider] - Time of Disposition: 19:35 - Critical Care Critical Care Time: No Attestation: On , the high probability of a clinically significant, sudden or life threatening deterioration of the following system(s) required my full and direct attention, intervention and personal management. The time I documented below is in addition to time spent performing reported procedures but includes the following listed in this critical care notation. Medical Decision Making - Medical Records Medical records reviewed: Yes: I reviewed the patient's medical records. - Delroy Inquiry Pt receiving controlled substance: No Vital Signs: 12/16/21 17:35 Pulse Rate [Right Radial] 86 Respiratory Rate 18 Blood Pressure [Right Arm] 125/89 Blood Pressure Mean [Right Arm] 101 Blood Pressure Source [Right Arm] Automatic Cuff Blood Pressure Position [Right Arm] Sitting 02 Sat by Pulse Oximetry 94 L Oxygen Delivery Method Room Air - Lab Data Lab results reviewed: Yes: I reviewed the patient's lab results. Lab Results 12/16/21 17:45: WBC 9.3, RBC 3.91 L, Hgb 11.2 L, Hct 36.0 L, MCV 92.2, MCH 28.6, MCHC 31.0 L, RDW 16.2, Plt Count 326, MPV 8.4, Neut % (Auto) 64.5, Lymph % (Auto) 27.9, [place] % (Auto) 4.4, Eos % (Auto) 2.4, Baso % (Auto) 0.8, Neut # (Auto) 6.0, Lymph # (Auto) 2.6, [place] # (Auto) 0.4, Eos # (Auto) 0.2, Baso # (Auto) 0.1 12/16/21 17:45: Sodium 134 L, Potassium 3.1 L, Chloride 94 L, Carbon Dioxide 31 H, Anion Gap 12.1, BUN 16, Creatinine 1.10 H, Estimated Creat Clear 92, Estimated GFR 50 L, Est GFR ( Amer) 61, Glucose 138 H, Calcium 8.3 L, Total Bilirubin 0.5, AST 52 H, ALT 49, Alkaline Phosphatase 129 H, Troponin I < 0.01, Total Protein 6.5, Albumin 3.8, Globulin 2.7, Albumin/Globulin Ratio 1.4 Result diagrams: 12/16/21 17:45 12/16/21 17:45 Orders (Tests/Meds): ED MEDICATIONS Discontinued Medications Generic Name Dose Route Start Last Admin Trade Name Freq PRN Reason Stop Dose Admin Albuterol/Ipratropium 3 ml 12/16/21 19:27 Ipratropium/Albuterol 3 Ml Neb IH 12/16/21 19:28 ONCE ONE Aspirin 325 mg 12/16/21 18:05 12/16/21 18:22 Aspirin 325mg Tablet PO 12/16/21 18:06 325 mg ONCE ONE Administration Dexamethasone 10 mg 12/16/21 19:26 Dexamethasone 1mg/1ml Intensol 10ml Udc (Er) PO 12/16/21 19:27 ONCE ONE Potassium Chloride 30 meq 12/16/21 18:56 12/16/21 19:00 Potassium Chloride 10meq Tablet.Er PO 12/16/21 18:57 30 meq ONCE ONE Administration ORDERS Category Date Time Status Troponin I Q3H Lab 12/16/21 20:45 Ordered Troponin I Q3H Lab 12/16/21 23:45 Ordered Medical Decision Narrative: Miss Arteaga is a 61 yo female w/ PMH for [place] s/p multiple stents and COPD on oxygen at baseline who presents to the ED for chest pain since this morning. Patient is afebrile a
[2021-12-16 17:56] LABS: Basophils # 0.1 K/mm3 (0-0.2); Basophils % 0.8 % (0.1-2.0); Eosinophils # 0.2 K/mm3 (0.0-0.4); Eosinophils % 2.4 % (0.1-12.0); Hemoglobin 11.2 g/dL (12.2-16.2); Lymphocytes # 2.6 K/mm3 (0.7-4.5); Lymphocytes % 27.9 % (10-50); Mean Corpuscular Hemoglobin 28.6 pg (27.0-31.2); Mean Corpuscular Volume 92.2 fl (81-99); Mean Platelet Volume 8.4 fl (7.4-10.4); Monocytes # 0.4 K/mm3 (0.1-1.0); Monocytes % 4.4 % (1.7-9.3); Neutrophils % 64.5 % (37.0-80.0); Platelet Count 326 K/mm3 (142-424); Red Blood Count 3.91 M/mm3 (4.20-5.40); Red Cell Distribution Width 16.2 % (11.5-17.5); White Blood Count 9.3 K/mm3 (4.8-10.8)
[2021-12-16 18:10] LABS: Alanine Aminotransferase 49 U/L (12-78); Albumin Level 3.8 g/dl (3.5-5.0); Albumin/Globulin Ratio 1.4 (1.1-1.8); Alkaline Phosphatase 129 U/L (38-126); Anion Gap 12.1 mEq/L (5-15); Aspartate Amino Transferase 52 U/L (14-36); Bilirubin,Total 0.5 mg/dl (0.2-1.3); Blood Urea Nitrogen 16 mg/dl (7-17); Calcium 8.3 mg/dl (8.4-10.2); Carbon Dioxide 31 mmol/L (22.0-30.0); Chloride 94 mmol/L (98-107); Creatinine Clearance Estimated 92 mL/min (50-200); Estimated Glomerular Filt Rate 50 ml/min (>60); GFR (African American) 61 ML/MIN (>60); Globulin 2.7 g/dL (1.3-3.2); Glucose 138 mg/dl (74-100); Potassium 3.1 mmoL/L (3.5-5.1); Sodium 134 mmol/L (136-145); Total Protein,Serum 6.5 g/dl (6.3-8.2)
[2021-12-16 18:23] LABS: Troponin I < 0.01 ng/ml (0.00-0.034)
--- NOTE | 2021-12-16 19:08 | PC.NURSE ---
PT RESTING QUIETLY WITH RESPIRATIONS EVEN AND NON LABORED PRIOR TO BE AWAKENED TO TAKE MEDICATIONS. NO ACUTE DISTRESS NOTED.
[2021-12-16 19:53] VITALS: BP 108/65; PULSE 71; RESP 19; TEMP 37.2; O2SAT 96
[2021-12-16 20:03] VITALS: PULSE 93; PULSE 98
== END 2021-12-16 20:07 | disposition home or self-care (01) ==
PROVIDERS: Emergency Provider Student in an Organized Health Care Education/Training Program; PCP Family Medicine
DX: J18.9 Pneumonia, unspecified organism (principal); J44.1 Chronic obstructive pulmonary disease with (acute) exacerbation; J18.1 Lobar pneumonia, unspecified organism; I48.0 Paroxysmal atrial fibrillation; E11.9 Type 2 diabetes mellitus without complications; K21.9 Gastro-esophageal reflux disease without esophagitis; I25.10 Atherosclerotic heart disease of native coronary artery without angina pectoris; I10 Essential (primary) hypertension; Z87.891 Personal history of nicotine dependence; Z79.899 Other long term (current) drug therapy
CPT/HCPCS: 71045; 80053; 84484; 85025; 93005; 99282; J1642

== ENCOUNTER 2021-12-18 17:11 | Emergency (ER) | payer MEDICARE, MEDICAID, SELFPAY ==
--- NOTE | 2021-12-18 | ECG_ITS ---
APPROVED REPORT Exam: Resting ECG HR:76 bpm ECG Measurements Heart Rate 76 AXES AL 179 P 61 QRSd 80 QRS 45 QT 394 T 70 QTc 425 Conclusion SINUS RHYTHM NORMAL ECG UNCONFIRMED REPORT Electronically signed by : Oskar Eugene MD 12/19/2021 22:23:44
[2021-12-18 17:12] VITALS: BP 130/70; PULSE 83; RESP 16; TEMP 37.1; O2SAT 98; BMI 38.7
--- NOTE | 2021-12-18 17:25 | PC.NURSE ---
Went to pt room to triage, pt told me she talked with Mariela and he told her to come to ER [facility]. When I asked the pt more details about her conversation with Mariela she stated that nobody talks to Mraiela and she talked to his staff at the office and they told her due to her BP and fall she should come . Upon gathering more triage about her discussion with Mariela, pt states she did not like that I was asking questions about her conversation with Mariela like I didnt believe her and stated crying and she wanted me to stop asking her those things. Explained to pt that I was trying to gather information so that I understood her complaints. She stated she wanted me to stop. Pt asked to have her home oxygen hooked to the wall, when I walked out of the room to get get a nipple for the oxygen when I got to the hallway, pt called out that I was a bitch. When I heard pt comment, I turned to pt and explained that I did not appreciate to be called names of such. PT stated that I was a bitch and I shouldn't be acting as one. I continued to walk to storage room for a oxygen nipple when I returned pt did not want me in her room. Put the oxygen nipple on the wall, assessed pt oxygen at the time which was 100 on 2 L SHOSHANA SHEPHERD, left pt room and had another nurse take over care for pt.
--- NOTE | 2021-12-18 17:44 | XR_ITS ---
PROCEDURE INFORMATION: Exam: XR Chest Exam date and time: 12/18/2021 5:44 PM Age: 61 years old Clinical indication: Patient HX: Shortness of breath per patient. ; Additional info: Weakness TECHNIQUE: Imaging protocol: XR of the chest. Views: 1 view. Total images: 1 COMPARISON: CR XR CHEST PORTABLE 12/16/2021 6:20 PM FINDINGS: Tubes, catheters and devices: Right subclavian port with catheter tip in the mid SVC unchanged. Lungs: Mildly increased pulmonary expansion. Mild central vascular congestion. Mild alveolar opacities in the bilateral perihilar and right basilar distribution are mildly improved from 12/16/2021, suggesting improving atelectasis, edema, or pneumonia. Pleural spaces: No pleural effusion. No pneumothorax. Heart/Mediastinum: Mild cardiomegaly. No tracheal/mediastinal shift. Bones/joints: No acute osseous abnormalities are identified. Osteopenia. Chronic appearing right posterolateral rib fractures again noted. Cervical fusion hardware noted without gross hardware complication. IMPRESSION: 1. Mildly increased pulmonary expansion with slightly decreased bilateral perihilar and right basilar alveolar densities suggesting improving edema, atelectasis, or pneumonia. 2. Mild cardiomegaly and vascular congestion suspicious for an element of underlying CHF. 3. Additional nonemergent findings detailed above.
[2021-12-18 18:24] LABS: Basophils # 0.2 K/mm3 (0-0.2); Basophils % 1.4 % (0.1-2.0); Eosinophils # 0.2 K/mm3 (0.0-0.4); Eosinophils % 2.2 % (0.1-12.0); Hematocrit 36.6 % (37.0-47.0); Hemoglobin 11.5 g/dL (12.2-16.2); Lymphocytes # 3.7 K/mm3 (0.7-4.5); Lymphocytes % 33.6 % (10-50); Mean Corpuscular HGB Conc 31.6 g/dL (31.8-35.4); Mean Corpuscular Hemoglobin 28.4 pg (27.0-31.2); Mean Corpuscular Volume 89.8 fl (81-99); Mean Platelet Volume 8.6 fl (7.4-10.4); Monocytes # 0.5 K/mm3 (0.1-1.0); Monocytes % 4.6 % (1.7-9.3); Neutrophils # 6.3 K/mm3 (1.8-7.8); Neutrophils % 58.3 % (37.0-80.0); Platelet Count 374 K/mm3 (142-424); Red Blood Count 4.07 M/mm3 (4.20-5.40); Red Cell Distribution Width 15.9 % (11.5-17.5); White Blood Count 10.9 K/mm3 (4.8-10.8)
[2021-12-18 18:30] LABS: Chloride 97 mmol/L (98-107); Sodium 133 mmol/L (136-145)
[2021-12-18 18:31] LABS: Potassium 3.5 mmoL/L (3.5-5.1)
[2021-12-18 18:33] LABS: Alanine Aminotransferase 102 U/L (12-78); Albumin Level 3.6 g/dl (3.5-5.0); Albumin/Globulin Ratio 1.2 (1.1-1.8); Alkaline Phosphatase 137 U/L (38-126); Anion Gap 5.5 mEq/L (5-15); Aspartate Amino Transferase 62 U/L (14-36); Blood Urea Nitrogen 14 mg/dl (7-17); Carbon Dioxide 34 mmol/L (22.0-30.0); Creatinine Clearance Estimated 102 mL/min (50-200); Estimated Glomerular Filt Rate 64 ml/min (>60); GFR (African American) 77 ML/MIN (>60); Globulin 2.9 g/dL (1.3-3.2); Total Protein,Serum 6.5 g/dl (6.3-8.2)
[2021-12-18 18:34] LABS: Calcium 8.1 mg/dl (8.4-10.2); Glucose 129 mg/dl (74-100)
[2021-12-18 18:43] LABS: Bilirubin,Total 0.1 mg/dl (0.2-1.3)
[2021-12-18 18:51] LABS: Troponin I < 0.01 ng/ml (0.00-0.034)
--- NOTE | 2021-12-18 19:10 | HMH.EDGENADL ---
ED Disposition Clinical Impression: Low blood pressure reading Disposition: Home, Self-Care Condition on Discharge: Good Additional Instructions: Call Dr. Sierra's office tomorrow and call your primary care provider's office tomorrow to arrange follow-up. Referrals: Juan C Colón MD [Primary Care Provider] - - Critical Care Critical Care Time: No Attestation: On 12/18/21, the high probability of a clinically significant, sudden or life threatening deterioration of the following system(s) required my full and direct attention, intervention and personal management. The time I documented below is in addition to time spent performing reported procedures but includes the following listed in this critical care notation. Medical Decision Making - Delroy Inquiry Pt receiving controlled substance: No Vital Signs: 12/18/21 17:12 Temperature 98.8 F Temperature Source Oral Pulse Rate [Radial] 83 Respiratory Rate 16 Blood Pressure [Right Arm] 130/70 Blood Pressure Mean [Right Arm] 90 Blood Pressure Position [Right Arm] Sitting 02 Sat by Pulse Oximetry 98 Oxygen Delivery Method Room Air - Lab Data Lab Results 12/18/21 18:15: WBC 10.9 H, RBC 4.07 L, Hgb 11.5 L, Hct 36.6 L, MCV 89.8, MCH 28.4, MCHC 31.6 L, RDW 15.9, Plt Count 374, MPV 8.6, Neut % (Auto) 58.3, Lymph % (Auto) 33.6, Trinity % (Auto) 4.6, Eos % (Auto) 2.2, Baso % (Auto) 1.4, Neut # (Auto) 6.3, Lymph # (Auto) 3.7, Trinity # (Auto) 0.5, Eos # (Auto) 0.2, Baso # (Auto) 0.2 12/18/21 18:15: Sodium 133 L, Potassium 3.5, Chloride 97 L, Carbon Dioxide 34 H, Anion Gap 5.5, BUN 14, Creatinine 0.90, Estimated Creat Clear 102, Estimated GFR 64, Est GFR ( Amer) 77 D, Glucose 129 H, Calcium 8.1 L, Total Bilirubin 0.1 L, AST 62 H, ALT 102 H D, Alkaline Phosphatase 137 H, Troponin I < 0.01, Total Protein 6.5, Albumin 3.6, Globulin 2.9, Albumin/Globulin Ratio 1.2 12/18/21 18:15: NT-Pro-B Natriuret Pep 351 H Result diagrams: 12/18/21 18:15 12/18/21 18:15 Orders (Tests/Meds): ED MEDICATIONS Discontinued Medications Generic Name Dose Route Start Last Admin Trade Name Freq PRN Reason Stop Dose Admin Sodium Chloride 500 ml 12/18/21 19:19 12/18/21 19:23 Sodium Chloride 0.9% 1000ml Bag IV 12/18/21 19:20 500 ml BOLUS ONE Administration ORDERS Category Date Time Status Troponin I Q3H Lab 12/18/21 20:45 Ordered Troponin I Q3H Lab 12/18/21 23:45 Ordered - Radiology Data #1 Image(s): Chest Image Reviewed: Yes I have reviewed radiologist's interpretation PROCEDURE INFORMATION: Exam: XR Chest Exam date and time: 12/18/2021 5:44 PM Age: 61 years old Clinical indication: Patient HX: Shortness of breath per patient. ; Additional info: Weakness TECHNIQUE: Imaging protocol: XR of the chest. Views: 1 view. Total images: 1 COMPARISON: CR XR CHEST PORTABLE 12/16/2021 6:20 PM FINDINGS: Tubes, catheters and devices: Right subclavian port with catheter tip in the mid SVC unchanged. Lungs: Mildly increased pulmonary expansion. Mild central vascular congestion. Mild alveolar opacities in the bilateral perihilar and right basilar distribution are mildly improved from 12/16/2021, suggesting improving atelectasis, edema, or pneumonia. Pleural spaces: No pleural effusion. No pneumothorax. Heart/Mediastinum: Mild cardiomegaly. No tracheal/mediastinal shift. Bones/joints: No acute osseous abnormalities are identified. Osteopenia. Chronic appearing right posterolateral rib fractures again noted. Cervical fusion hardware noted without gross hardware complication. IMPRESSION: 1. Mildly increased pulmonary expansion with slightly decreased bilateral perihilar and right basilar alveolar densities suggesting improving edema, atelectasis, or pneumonia. 2. Mild cardiomegaly and vascular congestion suspicious for an element of underlying CHF. 3. Additional nonemergent findings detailed above. Electronic
[2021-12-18 19:13] LABS: NT Pro Brain Natriuretic Pep. 351 pg/mL (0-125)
[2021-12-18 20:26] VITALS: BP 124/72; PULSE 82; RESP 18; TEMP 37.1; O2SAT 98
== END 2021-12-18 20:35 | disposition home or self-care (01) ==
PROVIDERS: Emergency Provider Emergency Medicine; PCP Family Medicine
DX: I95.9 Hypotension, unspecified (principal); I48.91 Unspecified atrial fibrillation; J44.9 Chronic obstructive pulmonary disease, unspecified; E11.65 Type 2 diabetes mellitus with hyperglycemia; K21.9 Gastro-esophageal reflux disease without esophagitis; E78.5 Hyperlipidemia, unspecified; I10 Essential (primary) hypertension; R06.02 Shortness of breath
CPT/HCPCS: 71045; 80053; 83880; 84484; 85025; 93005; 96365; 96375; 99283; J1642

== ENCOUNTER → 2021-12-19 08:55 | Outpatient (CLI) | payer MEDICARE, MEDICAID, SELFPAY ==
--- NOTE | 2021-12-19 08:57 | CA_ITS ---
FINAL REPORT TECHNIQUE: Grayscale, color Doppler and duplex Doppler ultrasound of the kidneys, aorta and renal arteries was performed. Multiple velocities were measured. CLINICAL HISTORY: HTN, CAD with multiple stents, RF, History of juvenile Renal injury with RF FINDINGS: Aorta velocity: 84 cm/sec Right kidney: 11.3 cm. There is a probable cyst measuring 3.6 cm. Right intrarenal RI: 0.58 Right renal artery velocity: 108 cm/sec. Right RAR (Renal artery-Aortic Ratio): 1.29 Left Kidney: 12.6 cm. No evidence of hydronephrosis or mass. Left intrarenal RI: 0.6 Left renal artery velocity: 129 cm/sec. Left RAR (Renal Artery-Aortic Ratio): 1.54 IMPRESSION: No evidence of significant renal artery stenosis. CT angiogram or postcontrast MR angiogram would be more sensitive for evaluation of possible renal artery stenosis. Reviewed, Interpreted and Dictated by Jorge Rodriguez III, MD Transcribed by Thea Rojo Authenticated by Jorge Rodriguez III, MD on 12/19/2021 11:06:07 AM [facility]
== END ==
PROVIDERS: PCP Family Medicine; Visit Provider Nurse Practitioner Family
DX: E78.5 Hyperlipidemia, unspecified (principal); I10 Essential (primary) hypertension; I20.9 Angina pectoris, unspecified; J44.9 Chronic obstructive pulmonary disease, unspecified; R06.00 Dyspnea, unspecified; Z72.0 Tobacco use; Z86.73 Personal history of transient ischemic attack (TIA), and cerebral infarction without residual deficits; Z95.5 Presence of coronary angioplasty implant and graft
CPT/HCPCS: 93976

== ENCOUNTER → 2021-12-21 10:43 | Outpatient (CLI) | payer MEDICARE, MEDICAID, SELFPAY ==
--- NOTE | 2021-12-21 10:44 | NM_ITS ---
APPROVED REPORT Exam: Nuclear Stress Test Indication: short of breath..pre-op surgery Patient Location: Outpatient Stress Tech: Erin PALM Tech:LIZZY Duggan RT(R)(N) Ht: 5 ft 4 in Wt: 250 lbs Bra Size: 42dd HR: 88 bpm BP: 112/84 mmHg BSA: 2.15 m2 BMI: 42.9 Procedure: Patient received a 0.4 mg of intravenous Lexiscan, resting heart rate 88 bpm, resting blood pressure 112/84 mmHg, with Lexiscan maximum heart rate achived was 91 bpm which is 85 % of the maximum predicted heart rate and blood pressure was 127/62 mmHg. With Lexiscan, patient denied any complaint of chest pain. Electrocardiogram Resting electrocardiogram shows sinus rhythm right ventricular conduction delay low voltage QRS complexes, with Lexiscan there is less than 1.[address] segment depression noted from the baseline EKG. The EKG portion of the Lexiscan is nondiagnostic. Cardiac Stress and Resting SPECT Images: Cardiac Stress and Resting SPECT images were obtained using technetium 99m Myoview 32.9 mCi stress and 10.29 mCi at rest. Gated SPECT for analysis of segmental wall motion and calculation of the ejection fraction also done, prone images were also obtained. Cardiac stress and rest SPECT images showed uniform myocardial activity without segmental perfusion abnormality, computer derived ejection fraction is 57% with no regional wall motion abnormality, right ventricle is mildly enlarged with normal contractility. Conclusion: 1. The EKG portion of the Lexiscan is nondiagnostic. 2. No scintigraphic evidence of reversible ischemia seen, computer derived ejection fraction is 57% with no regional wall motion abnormality, right ventricle is mildly enlarged with normal contractility. 3. Normal Lexiscan Myoview study. Electronically signed by : Lamont Bull MD 12/21/2021 14:56:08
--- NOTE | 2021-12-21 13:50 | CA_ITS ---
APPROVED REPORT Exam: Pharmacologic Technologist: Linda Escalona, Ht: 5 ft 6 in Wt: 240 lbs BSA: 2.16 m2 HR: 100 bpm BP: 112/84 mmHg Medical History Medications: Lisinopril,,,,, Metformin,,,,, Xanax,,,,, Premarin,,,,, Toprol,,,,, HCTZ,,,,, Flexeril,,,,, Lipitor,,,,, Albuterol,,,,, ADVAIR,,,,, Protonix,,,,, Cymbalta,,,,, Stress Test Details Test: LEXISCAN HR Resting HR: 89 bpm Max Heart Rate (APMHR): 159.564052 bpm Max HR Achieved: 94 bpm Target HR (85% APMHR): 135.789843 bpm % of APMHR: 59.12 Recovery HR: 98 bpm BP Resting BP: 112/84 mmHg Max BP: 127/62 mmHg Recovery BP: 119.0/70.0 mmHg ECG Resting ECG: NSR Clinical Exercise duration: 04:01 min Highest Stage Achieved: Exercise capacity: 1.0 METs Stress ECG Conclusion Symptoms: None Arrhythmias/Ectopy: None ST-T Changes: <1.5mm ST Segment changes. Conclusion: Non-Diagnostic Electronically signed by : Lamont Bull MD 12/21/2021 14:44:35
== END ==
PROVIDERS: PCP Family Medicine; Visit Provider Nurse Practitioner Family
DX: E78.5 Hyperlipidemia, unspecified (principal); I10 Essential (primary) hypertension; I20.9 Angina pectoris, unspecified; J44.9 Chronic obstructive pulmonary disease, unspecified; R06.00 Dyspnea, unspecified; Z72.0 Tobacco use; Z86.73 Personal history of transient ischemic attack (TIA), and cerebral infarction without residual deficits; Z95.5 Presence of coronary angioplasty implant and graft
CPT/HCPCS: 78452; 93017; A9502; J2785

== ENCOUNTER → 2021-12-31 16:00 | Outpatient (CLI) | payer MEDICARE, MEDICAID, SELFPAY ==
[2021-12-31 19:27] LABS: Alanine Aminotransferase 33 U/L (12-78); Albumin Level 4.7 g/dl (3.5-5.0); Albumin/Globulin Ratio 1.6 (1.1-1.8); Alkaline Phosphatase 191 U/L (38-126); Anion Gap 15.3 mEq/L (5-15); Aspartate Amino Transferase 34 U/L (14-36); Bilirubin,Total 0.7 mg/dl (0.2-1.3); Blood Urea Nitrogen 15 mg/dl (7-17); Calcium 9.9 mg/dl (8.4-10.2); Carbon Dioxide 28 mmol/L (22.0-30.0); Chloride 97 mmol/L (98-107); Chol/HDL Ratio 3.3 (1-3.5); Cholesterol 170 mg/dl (140-200); Estimated Glomerular Filt Rate 56 ml/min (>60); GFR (African American) 68 ML/MIN (>60); Glucose 82 mg/dl (74-100); HDL Cholesterol 52 mg/dl (40-60); Potassium 4.3 mmoL/L (3.5-5.1); Sodium 136 mmol/L (136-145); Total Protein,Serum 7.7 g/dl (6.3-8.2); Triglycerides 388 mg/dl (30-150); VLDL Cholesterol 78 mg/dL (0-40)
[2021-12-31 19:38] LABS: Direct LDL Cholesterol 77.56 mg/dL (100-129)
[2021-12-31 19:43] LABS: T4 (Thyroxine) 7.5 ug/dl (5.53-11.0)
[2021-12-31 19:57] LABS: Thyroid Stimulating Hormone 6.88 uIU/mL (0.465-4.68)
== END ==
PROVIDERS: Visit Provider Nurse Practitioner Family
DX: R53.1 Weakness (principal); E11.9 Type 2 diabetes mellitus without complications; Z79.84 Long term (current) use of oral hypoglycemic drugs
CPT/HCPCS: 80053; 80061; 84436; 84443

== ENCOUNTER 2022-01-07 13:28 | Day surgery (SDC) | payer MEDICARE, MEDICAID, SELFPAY ==
[2022-01-07 13:44] VITALS: BP 136/98; BP 139/84; PULSE 90; RESP 18; RESP 20; TEMP 36.6; O2SAT 90; O2SAT 97; BMI 38.7
[2022-01-07 14:14] VITALS: BP 134/98; PULSE 98; RESP 20; O2SAT 91
--- NOTE | 2022-01-07 14:21 | HMH.PMPROC ---
- Procedure Date: 01/07/22 Time: 14:21 Anesthesiologist:: Daniela Lopes APRN Complications:: None Pre-procedure Diagnosis:: Degenerative disc disease of the lumbar spine with lumbar radiculopathy symptoms Right sacroiliitis Post-procedure Diagnosis:: Same Indications for Procedure:: Patient is a pleasant 61-year-old female who is here today for intrathecal pain pump refill and reprogram. Patient is currently being treated for degenerative disc disease of the lumbar spine with lumbar radiculopathy symptoms and right sacroiliitis. Patient is currently being managed with bupivacaine 15 mg/mL at a rate of 3 mg/day. Patient denies any side effects from this medication. The last time we saw this patient, she was complaining of right SI pain and she was positive for Anayeli, Masha's, compression and distraction. Patient has had success from multiple rounds of SI injections to her right SI however she is only getting temporary relief from this injections. We had scheduled her to get an SI stabilization procedure with a Healint system. According to the patient, she was denied to get this procedure. Once we get the rejection letter, we will work on the patient on what we need to do. We do believe this patient will significantly benefit from an SI stabilization procedure. Additionally, patient has tried and failed conservative therapies such as oral medications, injections, physical therapy and at home exercises for greater than 6 weeks with no relief. Patient rates her pain today as 5 out of 10. Patient is also taking gabapentin 300 mg daily that is prescribed by this clinic. She is wanting an increase in the dosage of this medication because it has significantly helped her neuropathic pain. Her [facility] number is [phone] Physical exam General: Alert and oriented x3, no acute distress, pleasant and cooperative Lungs: Respirations even and unlabored, symmetrical chest expansion Eyes: PERRL Musculoskeletal: Flexion and extension of lumbar [spine] somewhat guarded secondary to pain, [antalgic gait noted] Right Hip: Positive Anayeli, Masha's, compression and distraction Neurological: Speech clear, no gross sensory deficit Procedure Details:: Informed consent was obtained and the risk and benefits of the procedure were explained to the patient. The patient was taken to the procedure room where noninvasive monitoring was placed including noninvasive blood pressure cuff and pulse oximeter. Patient's pump was interrogated. The area over the pump was cleansed with chlorhexidine as a cleansing solution. In sterile fashion the pump was accessed with a 22-gauge needle. Approximately 8.5 mls of the pump solution was removed and discarded appropriately. The pump was then refilled with 20 mL's of bupivacaine 15 mg/mL. The needle was withdrawn and a bandage was placed over the puncture site. The infusion rate was continued at bupivacaine 3 mg/day. The patient tolerated well with no complication. Plan and Disposition:: We will increase the patient's gabapentin 300 mg daily to gabapentin 300 mg twice a day. Patient was recently denied for an SI stabilization procedure. We do believe this patient will get significant relief from this procedure based on her successes from her SI injections. We will try to resubmit for this procedure. We will see the patient back in the clinic at the next intrathecal refill. Patient has been instructed to contact the clinic with any concerns before the next appointment. Dr. Emmanuel has reviewed this note and agrees with this plan of care. This note was dictated using voice recognition software and make contain errors or omissions. Risks and benefits of the medication have been explained in detail to the patient. The patient does understand the risk of dependence on the medication when given over a prolonged period. Patient has been advised of risks of oversedation with the prescribed medicati
[2022-01-07 14:30] VITALS: BP 148/97; PULSE 86; RESP 20; O2SAT 95
== END 2022-01-07 14:30 | disposition home or self-care (01) ==
LOC: SC.PAINP 13:29
PROVIDERS: PCP Family Medicine; Visit Provider Clinical Nurse Specialist Family Health
DX: M51.16 Intervertebral disc disorders with radiculopathy, lumbar region (principal); Z45.1 Encounter for adjustment and management of infusion pump
CPT/HCPCS: 95991

== ENCOUNTER 2022-01-14 12:11 | Emergency (ER) | payer MEDICARE, MEDICAID, SELFPAY ==
--- NOTE | 2022-01-14 12:04 | ECG_ITS ---
APPROVED REPORT Exam: Resting ECG HR:79 bpm ECG Measurements Heart Rate 79 AXES CO 178 P 79 QRSd 97 QRS 71 QT 401 T 84 QTc 436 Conclusion SINUS RHYTHM NORMAL ECG UNCONFIRMED REPORT Electronically signed by : Oskar Eugene MD 01/16/2022 21:07:06
[2022-01-14 12:11] VITALS: BP 129/87; PULSE 81; RESP 16; TEMP 36.1; O2SAT 98; BMI 38.7; BMI 42.5
--- NOTE | 2022-01-14 12:13 | CT_ITS ---
FINAL REPORT CLINICAL HISTORY: stroke FINDINGS: Axial images of the head were obtained without contrast. Coronal reformatted images were also obtained. This study was performed with techniques to keep radiation doses as low as reasonably achievable (ALARA). Individualized dose reduction techniques using automated exposure control or adjustment of mA and/or kV according to the patient''s size were employed. There is generalized age-appropriate atrophy. There is right posterior periventricular chronic ischemic change. There is no evidence of intracranial hemorrhage or mass. There is no evidence of acute infarct. There is no evidence of shift of the midline structures. No skull abnormality is seen on the bone window images. IMPRESSION: Atrophy and chronic ischemic changes. No acute intracranial abnormality identified. Reviewed, Interpreted and Dictated by Jorge Rodriguez III, MD Transcribed by Zuly Fowler Authenticated by Jorge Rodriguez III, MD on 01/14/2022 12:34:51 PM [facility]
--- NOTE | 2022-01-14 12:13 | CT_ITS ---
FINAL REPORT TECHNIQUE: Thin section axial CT with IV contrast supplemented with multiplanar reconstruction under CT angiogram protocol. This study was performed with techniques to keep radiation doses as low as reasonably achievable (ALARA). Individualized dose reduction techniques using automated exposure control or adjustment of mA and/or kV according to the patient''s size were employed. NASCET criteria was utilized during interpretation. CLINICAL HISTORY: stroke, weakness FINDINGS: Aortic arch: Arch shows no significant narrowing. There is calcified plaque at the carotid bifurcations bilaterally without significant stenosis. Right carotid: No significant stenosis is seen of the cervical common or internal carotid artery. Left carotid: No significant stenosis is seen of the cervical common or internal carotid artery. Vertebral: Left vertebral artery is dominant. No significant stenosis is present. IMPRESSION: No significant stenosis. Reviewed, Interpreted and Dictated by Jorge Rodriguez III, MD Transcribed by Zuly Fowler Authenticated by Jorge Rodriguez III, MD on 01/14/2022 02:07:34 PM [facility]
--- NOTE | 2022-01-14 12:13 | CT_ITS ---
FINAL REPORT TECHNIQUE: Thin section axial CT with IV contrast supplemented with multiplanar reconstruction under CT angiogram protocol. 3-D reconstructions were performed. This study was performed with techniques to keep radiation doses as low as reasonably achievable (ALARA). Individualized dose reduction techniques using automated exposure control or adjustment of mA and/or kV according to the patient''s size were employed. CLINICAL HISTORY: stroke FINDINGS: The distal vertebral, basilar and distal internal carotid arteries have an unremarkable appearance. No aneurysm is seen. Major intracranial vessels are patent without significant stenosis. IMPRESSION: Unremarkable exam without major branch occlusion. Reviewed, Interpreted and Dictated by Jorge Rodriguez III, MD Transcribed by Zuly Fowler Authenticated by Jorge Rodriguez III, MD on 01/14/2022 02:07:31 PM [facility]
--- NOTE | 2022-01-14 13:22 | HMH.EDGENADL ---
ED Disposition Clinical Impression: TIA (transient ischemic attack), Migraine aura, persistent Disposition: Home, Self-Care Condition on Discharge: Good Instructions: Transient Ischemic Attack Additional Instructions: Please follow up with your primary care physician in 2-3 days for further management. You have also been referred to Dr. Dana Biswas on January 23 at 10AM with neurology, you will require additional imaging to address your symptoms. Please return to the ED if symptoms were to reoccur such as numbness, weakness, speech changes, visual changes or any other concerns. You have been provided your CD with imaging please bring to your appointment with neurology. Referrals: Juan C Colón MD [Primary Care Provider] - - Critical Care Critical Care Time: Yes Attestation: On 01/14/22, the high probability of a clinically significant, sudden or life threatening deterioration of the following system(s) required my full and direct attention, intervention and personal management. The time I documented below is in addition to time spent performing reported procedures but includes the following listed in this critical care notation. Vital system(s) involved:: Central Nervous System My critical care processes included: Assessment & monitoring of V/S, Initial and Re-exams, Data Review/Interpretation, Coordinating Care Medical Decision Making - Medical Records Medical records reviewed: Yes: I reviewed the patient's medical records. - Delroy Inquiry Pt receiving controlled substance: No Vital Signs: 01/14/22 12:11 01/14/22 13:38 01/14/22 14:30 Temperature 97 F L Temperature Source Oral Pulse Rate 78 78 Pulse Rate [Radial] 81 Respiratory Rate 16 18 Blood Pressure 126/77 115/74 Blood Pressure [Right Arm] 129/87 Blood Pressure Mean [Right Arm] 101 Blood Pressure Position Sitting Blood Pressure Position [Right Arm] Sitting 02 Sat by Pulse Oximetry 98 98 98 Oxygen Delivery Method Room Air Nasal Cannula Room Air Oxygen Flow Rate (LPM) 2 01/14/22 15:39 Temperature 98 F Temperature Source Oral Pulse Rate 78 Pulse Rate [Radial] Respiratory Rate 16 Blood Pressure 135/86 Blood Pressure [Right Arm] Blood Pressure Mean [Right Arm] Blood Pressure Position Sitting Blood Pressure Position [Right Arm] 02 Sat by Pulse Oximetry Oxygen Delivery Method Room Air Oxygen Flow Rate (LPM) - Lab Data Lab results reviewed: Yes: I reviewed the patient's lab results. Lab Results 01/14/22 13:36: WBC 7.7, RBC 3.75 L, Hgb 10.7 L, Hct 34.5 L, MCV 92.0, MCH 28.7, MCHC 31.1 L, RDW 15.9, Plt Count 347, MPV 8.4, Neut % (Auto) 65.1, Lymph % (Auto) 27.3, Oldham % (Auto) 3.8, Eos % (Auto) 2.7, Baso % (Auto) 1.1, Neut # (Auto) 5.0, Lymph # (Auto) 2.1, Oldham # (Auto) 0.3, Eos # (Auto) 0.2, Baso # (Auto) 0.1 01/14/22 13:36: PT 10.9, INR 0.96, APTT 36.2 H 01/14/22 13:36: Sodium 132 L, Potassium 4.0, Chloride 101, Carbon Dioxide 29, Anion Gap 6.0, BUN 8, Creatinine 0.80, Estimated Creat Clear 49, Estimated GFR 73, Est GFR ( Amer) 88, Glucose 109 H, Calcium 7.4 L, Total Bilirubin 0.4, AST 36, ALT 27, Alkaline Phosphatase 145 H, Troponin I < 0.01, Total Protein 6.2 L, Albumin 3.5, Globulin 2.7, Albumin/Globulin Ratio 1.3 Result diagrams: 01/14/22 13:36 01/14/22 13:36 Orders (Tests/Meds): ED MEDICATIONS Discontinued Medications Generic Name Dose Route Start Last Admin Trade Name Dannyq PRN Reason Stop Dose Admin Acetaminophen 1,000 mg 01/14/22 13:15 01/14/22 13:30 Acetaminophen 500mg Tab PO 01/14/22 13:16 1,000 mg ONCE ONE Administration Heparin Sodium (Porcine) 300 unit 01/14/22 15:02 01/14/22 15:03 Heparin Lock Flush 500 Units/5ml Syr IV 01/14/22 15:03 300 units ONCE ONE Administration Iopamidol 70 ml 01/14/22 12:50 01/14/22 12:51 Iopamidol-370 (76%);100ml Bottle IV 01/14/22 12:51 70 ml ONCE ONE Administration Sodium Chloride 10 ml 01/14/22 12:50 01/14/22 12:51 So
[2022-01-14 13:38] VITALS: BP 126/77; PULSE 78; O2SAT 98
[2022-01-14 13:53] LABS: Chloride 101 mmol/L (98-107); Sodium 132 mmol/L (136-145)
[2022-01-14 13:56] LABS: Alanine Aminotransferase 27 U/L (12-78); Albumin Level 3.5 g/dl (3.5-5.0); Albumin/Globulin Ratio 1.3 (1.1-1.8); Alkaline Phosphatase 145 U/L (38-126); Aspartate Amino Transferase 36 U/L (14-36); Bilirubin,Total 0.4 mg/dl (0.2-1.3); Blood Urea Nitrogen 8 mg/dl (7-17); Carbon Dioxide 29 mmol/L (22.0-30.0); Creatinine Clearance Estimated 49 mL/min (50-200); Estimated Glomerular Filt Rate 73 ml/min (>60); GFR (African American) 88 ML/MIN (>60); Globulin 2.7 g/dL (1.3-3.2); Total Protein,Serum 6.2 g/dl (6.3-8.2)
[2022-01-14 13:57] LABS: Calcium 7.4 mg/dl (8.4-10.2); Glucose 109 mg/dl (74-100)
[2022-01-14 13:59] LABS: Basophils # 0.1 K/mm3 (0-0.2); Basophils % 1.1 % (0.1-2.0); Eosinophils # 0.2 K/mm3 (0.0-0.4); Eosinophils % 2.7 % (0.1-12.0); Hematocrit 34.5 % (37.0-47.0); Hemoglobin 10.7 g/dL (12.2-16.2); Lymphocytes # 2.1 K/mm3 (0.7-4.5); Lymphocytes % 27.3 % (10-50); Mean Corpuscular HGB Conc 31.1 g/dL (31.8-35.4); Mean Corpuscular Hemoglobin 28.7 pg (27.0-31.2); Mean Platelet Volume 8.4 fl (7.4-10.4); Monocytes # 0.3 K/mm3 (0.1-1.0); Monocytes % 3.8 % (1.7-9.3); Neutrophils % 65.1 % (37.0-80.0); Platelet Count 347 K/mm3 (142-424); Red Blood Count 3.75 M/mm3 (4.20-5.40); Red Cell Distribution Width 15.9 % (11.5-17.5); White Blood Count 7.7 K/mm3 (4.8-10.8)
[2022-01-14 14:00] LABS: Activated Partial Thrombo Time 36.2 seconds (22.8-30.6); INR 0.96 (0.9-1.1); Prothrombin Time 10.9 seconds (10.1-12.5)
[2022-01-14 14:11] LABS: Troponin I < 0.01 ng/ml (0.00-0.034)
--- NOTE | 2022-01-14 14:24 | PC.NURSE ---
On phone with [facility]
--- NOTE | 2022-01-14 14:28 | PC.NURSE ---
Called to get xray disc made for patient to take to her Neuro appt in [place] on 01/23 @ 10:[address] Dana Biswas
[2022-01-14 14:30] VITALS: BP 115/74; PULSE 78; RESP 18; O2SAT 98
[2022-01-14 15:39] VITALS: BP 135/86; PULSE 78; RESP 16; TEMP 36.6; O2SAT 98
== END 2022-01-14 15:41 | disposition home or self-care (01) ==
PROVIDERS: Emergency Provider Student in an Organized Health Care Education/Training Program; PCP Family Medicine
DX: G45.8 Other transient cerebral ischemic attacks and related syndromes (principal); G43.509 Persistent migraine aura without cerebral infarction, not intractable, without status migrainosus; I48.0 Paroxysmal atrial fibrillation; J44.9 Chronic obstructive pulmonary disease, unspecified; I10 Essential (primary) hypertension; E78.5 Hyperlipidemia, unspecified; I25.10 Atherosclerotic heart disease of native coronary artery without angina pectoris; K21.9 Gastro-esophageal reflux disease without esophagitis; I25.2 Old myocardial infarction; Z87.891 Personal history of nicotine dependence; Z79.899 Other long term (current) drug therapy
CPT/HCPCS: 70450; 70496; 70498; 80053; 84484; 85025; 85610; 85730; 93005; 99282; J1642; Q9967

== ENCOUNTER 2022-01-15 20:41 | Emergency (ER) | payer MEDICARE, MEDICAID, SELFPAY ==
[2022-01-15 20:42] VITALS: BP 159/84; PULSE 87; RESP 19; TEMP 37.1; O2SAT 99; BMI 38.7
[2022-01-15 20:52] LABS: Microscopic, Urine URINE MICROSCOPIC (MICROSCOPIC)
[2022-01-15 20:56] LABS: Appearance,Urine CLEAR (Clear); Bilirubin,Urine Negative (Negative); Blood, Urine Negative (Negative); Color,Urine YELLOW (Yellow); Glucose,Urine (UA) Negative (Negative); Ketones,Urine Negative (Negative); Leukocyte Esterase,Urine Negative (Negative); Nitrate,Urine Negative (Negative); Protein,Urine Negative (Negative); Urobilinogen,Urine 0.2 EU/dl (0.2)
[2022-01-15 21:01] LABS: Bacteria,Urine Trace /lpf; Squamous Epithelial Cell,Urine Occasional #/hpf (0-5)
--- NOTE | 2022-01-15 21:37 | CT_ITS ---
PROCEDURE INFORMATION: Exam: CT Abdomen And Pelvis With Contrast Exam date and time: 01/15/2022 9:37 PM Age: 61 years old Clinical indication: Abdominal pain; Prior surgery; Additional info: Low abd pain TECHNIQUE: Imaging protocol: Computed tomography of the abdomen and pelvis with contrast. Radiation optimization: All CT scans at this facility use at least one of these dose optimization techniques: automated exposure control; mA and/or kV adjustment per patient size (includes targeted exams where dose is matched to clinical indication); or iterative reconstruction. Contrast material: ISOVUE; Contrast volume: 75 ml; Contrast route: IV; COMPARISON: CT ABDOMEN PELVIS W CON 11/08/2021 7:20 PM FINDINGS: Lungs: Cystic lung disease. Liver: Diffuse low attenuation of the liver most likely secondary to fatty infiltration. Gallbladder and bile ducts: Post cholecystectomy change. Pancreas: Normal enhancement. No ductal dilation. Spleen: There are multiple splenic calcifications likely on the basis of prior granulomatous exposure. Adrenal glands: No mass. Kidneys and ureters: Renal cysts measuring up to 2.7 cm. Stomach and bowel: Diverticulosis coli without evidence for diverticulitis. The descending colon is decompressed and not well evaluated. No bowel obstruction. Appendix: No evidence of appendicitis. Intraperitoneal space: No free air. No significant fluid collection. Vasculature: Calcified atherosclerosis. No aneurysm. Lymph nodes: No enlarged lymph nodes. Urinary bladder: No acute abnormality. Reproductive: No acute abnormality. Bones/joints: No acute fracture. Soft tissues: No soft tissue swelling. IMPRESSION: 1. Diffuse low attenuation of the liver most likely secondary to fatty infiltration. 2. Diverticulosis coli without evidence for diverticulitis. 3. The descending colon is decompressed and not well evaluated. Colitis should be clinically excluded at this location.
--- NOTE | 2022-01-15 21:37 | HMH.EDNVD ---
ED Disposition Clinical Impression: Abdominal pain Qualifiers: Abdominal location: generalized Qualified Code(s): R10.84 - Generalized abdominal pain Disposition: Home, Self-Care Condition on Discharge: Good Instructions: DI for Acute Abdominal Pain Additional Instructions: fluids and see pcp for follow up Referrals: Juan C Colón MD [Primary Care Provider] - - Critical Care Critical Care Time: No Attestation: On 01/15/22, the high probability of a clinically significant, sudden or life threatening deterioration of the following system(s) required my full and direct attention, intervention and personal management. The time I documented below is in addition to time spent performing reported procedures but includes the following listed in this critical care notation. Medical Decision Making - Medical Records Medical records reviewed: Yes: I reviewed the patient's medical records. - Delroy Inquiry Pt receiving controlled substance: No Vital Signs: 01/15/22 20:42 Temperature 98.8 F Temperature Source Oral Pulse Rate [Right] 87 Respiratory Rate 19 Blood Pressure [Right Arm] 159/84 H Blood Pressure Mean [Right Arm] 109 02 Sat by Pulse Oximetry 99 Oxygen Delivery Method Room Air - Lab Data Lab results reviewed: Yes: I reviewed the patient's lab results. Lab Results 01/15/22 20:45: Urine Color Yellow, Urine Appearance Clear, Urine pH 7.0, Ur Specific Reynolds 1.020, Urine Protein Negative, Urine Glucose (UA) Negative, Urine Ketones Negative, Urine Blood Negative, Urine Nitrate Negative, Urine Bilirubin Negative, Urine Urobilinogen 0.2, Ur Leukocyte Esterase Negative, Urine RBC None, Urine WBC 3-5, Ur Squamous Epith Cells Occasional, Urine Bacteria Trace 01/15/22 21:36: WBC 9.7 D, RBC 3.91 L, Hgb 11.3 L, Hct 35.7 L, MCV 91.3, MCH 28.8, MCHC 31.5 L, RDW 15.3, Plt Count 344, MPV 8.3, Neut % (Auto) 63.5, Lymph % (Auto) 29.9, Levy % (Auto) 3.4, Eos % (Auto) 2.5, Baso % (Auto) 0.6, Neut # (Auto) 6.1, Lymph # (Auto) 2.9, Levy # (Auto) 0.3, Eos # (Auto) 0.2, Baso # (Auto) 0.1, ESR 41 H 01/15/22 21:36: Sodium 136, Potassium 3.6, Chloride 100, Carbon Dioxide 31 H, Anion Gap 8.6, BUN 10, Creatinine 0.90, Estimated Creat Clear 102, Estimated GFR 64, Est GFR ( Amer) 77, Glucose 149 H, Calcium 8.2 L, Total Bilirubin 0.4, AST 29, ALT 29, Alkaline Phosphatase 132 H, C-Reactive Protein 7.7 H, Total Protein 6.4, Albumin 3.7, Globulin 2.7, Albumin/Globulin Ratio 1.4, Amylase 47, Lipase 52, Procalcitonin < 0.030 01/15/22 21:36: Lactate 1.9 Result diagrams: 01/15/22 21:36 01/15/22 21:36 Orders (Tests/Meds): ED MEDICATIONS Generic Name Dose Route Start Last Admin Trade Name Freq PRN Reason Stop Dose Admin Sodium Chloride 1,000 mls @ 999 mls/hr 01/15/22 21:45 01/15/22 21:49 Sod Chlor 0.9% 1000ml Bag IV 01/15/22 22:45 999 mls/hr .[id number] CRISTOPHER Administration Discontinued Medications Generic Name Dose Route Start Last Admin Trade Name Freq PRN Reason Stop Dose Admin Heparin Sodium (Porcine) 300 unit 01/15/22 23:59 Heparin Lock Flush 500 Units/5ml Syr IV 01/16/22 00:00 ONCE ONE Hydromorphone HCl 1 mg 01/15/22 23:56 Hydromorphone 2mg/Ml Syringe IV 01/15/22 23:57 ONCE ONE Iopamidol 75 ml 01/15/22 22:45 01/15/22 22:46 Iopamidol-370 (76%);100ml Bottle IV 01/15/22 22:46 75 ml ONCE ONE Administration Morphine Sulfate 4 mg 01/15/22 22:15 01/15/22 22:19 Morphine 4mg/Ml Syringe IV 01/15/22 22:16 4 mg ONCE ONE Administration Ondansetron HCl 4 mg 01/15/22 21:37 01/15/22 21:48 Ondansetron 4mg/2ml Vial IV 01/15/22 21:38 4 mg ONCE ONE Administration Ondansetron HCl 4 mg 01/15/22 22:15 01/15/22 22:19 Ondansetron 4mg/2ml Vial IV 01/15/22 22:16 4 mg ONCE ONE Administration Promethazine HCl 25 mg 01/15/22 23:56 Promethazine Hcl 25mg/Ml 1ml Vial IV 01/15/22 23:57 ONCE ONE Sodium Chloride 10 ml 01/15/22 22:45 01/15/22 22:46 Sodium Chlor
[2022-01-15 21:57] LABS: Lactic Acid 1.9 mmol/L (0.7-2.1)
[2022-01-15 21:58] LABS: Alanine Aminotransferase 29 U/L (12-78); Albumin Level 3.7 g/dl (3.5-5.0); Albumin/Globulin Ratio 1.4 (1.1-1.8); Alkaline Phosphatase 132 U/L (38-126); Amylase 47 U/L (30-110); Anion Gap 8.6 mEq/L (5-15); Aspartate Amino Transferase 29 U/L (14-36); Bilirubin,Total 0.4 mg/dl (0.2-1.3); Blood Urea Nitrogen 10 mg/dl (7-17); Calcium 8.2 mg/dl (8.4-10.2); Carbon Dioxide 31 mmol/L (22.0-30.0); Chloride 100 mmol/L (98-107); Creatinine Clearance Estimated 102 mL/min (50-200); Estimated Glomerular Filt Rate 64 ml/min (>60); GFR (African American) 77 ML/MIN (>60); Globulin 2.7 g/dL (1.3-3.2); Glucose 149 mg/dl (74-100); Lipase 52 U/L (23-300); Potassium 3.6 mmoL/L (3.5-5.1); Sodium 136 mmol/L (136-145); Total Protein,Serum 6.4 g/dl (6.3-8.2)
[2022-01-15 22:03] LABS: C-Reactive Protein 7.7 mg/L (0-4)
[2022-01-15 22:14] LABS: Basophils # 0.1 K/mm3 (0-0.2); Basophils % 0.6 % (0.1-2.0); Eosinophils # 0.2 K/mm3 (0.0-0.4); Eosinophils % 2.5 % (0.1-12.0); Hematocrit 35.7 % (37.0-47.0); Hemoglobin 11.3 g/dL (12.2-16.2); Lymphocytes # 2.9 K/mm3 (0.7-4.5); Lymphocytes % 29.9 % (10-50); Mean Corpuscular HGB Conc 31.5 g/dL (31.8-35.4); Mean Corpuscular Hemoglobin 28.8 pg (27.0-31.2); Mean Corpuscular Volume 91.3 fl (81-99); Mean Platelet Volume 8.3 fl (7.4-10.4); Monocytes # 0.3 K/mm3 (0.1-1.0); Monocytes % 3.4 % (1.7-9.3); Neutrophils # 6.1 K/mm3 (1.8-7.8); Neutrophils % 63.5 % (37.0-80.0); Platelet Count 344 K/mm3 (142-424); Red Blood Count 3.91 M/mm3 (4.20-5.40); Red Cell Distribution Width 15.3 % (11.5-17.5); White Blood Count 9.7 K/mm3 (4.8-10.8)
[2022-01-15 22:17] LABS: Procalcitonin < 0.030 ng/mL (0.0-2.0)
[2022-01-15 23:27] LABS: Erythrocyte Sedimentation Rate 41 mm/hr (0-30)
[2022-01-16 00:36] VITALS: BP 164/87; PULSE 78; RESP 18; TEMP 36.9; O2SAT 94
== END 2022-01-16 00:43 | disposition home or self-care (01) ==
PROVIDERS: Emergency Provider Emergency Medicine; PCP Family Medicine
DX: R10.84 Generalized abdominal pain (principal); I48.0 Paroxysmal atrial fibrillation; I25.10 Atherosclerotic heart disease of native coronary artery without angina pectoris; I10 Essential (primary) hypertension; E78.5 Hyperlipidemia, unspecified; K21.9 Gastro-esophageal reflux disease without esophagitis; Z87.891 Personal history of nicotine dependence; Z79.899 Other long term (current) drug therapy
CPT/HCPCS: 74177; 80053; 81001; 82150; 83605; 83690; 84145; 85025; 85651; 86140; 87040; 96365; 96375; 99282; 99284; J1642; J2405; Q9967

== ENCOUNTER 2022-02-18 14:04 | Day surgery (SDC) | payer MEDICARE, MEDICAID, SELFPAY ==
[2022-02-18 14:10] VITALS: BP 137/74; PULSE 93; RESP 20; TEMP 36.8; O2SAT 94; BMI 38.7
[2022-02-18 14:12] VITALS: BP 160/72; BP 165/72; PULSE 90; PULSE 91; RESP 18; RESP 20; O2SAT 96
--- NOTE | 2022-02-18 14:12 | HMH.PMPROC ---
- Procedure Date: 02/18/22 Time: 14:12 Anesthesiologist:: CECIL Steven Complications:: None Pre-procedure Diagnosis:: Degenerative disc disease of the lumbar spine with lumbar radiculopathy Post-procedure Diagnosis:: Same Indications for Procedure:: Patient is a pleasant 61-year-old female who presents today for intrathecal pain pump [refill] [and reprogram]. The patient is being treated for degenerative disc disease of the lumbar spine with lumbar radiculopathy symptoms, right sacroiliitis. Patient is currently being managed with bupivacaine 15 mg/mL at a rate of 3 mg/day. Patient states that she has been having falling issues. She says that they are working on her blood pressure medications but she would still like to decrease her intrathecal dose. Patient denies any change to location type of pain. Patient rates pain a 0 out of 10. Drug screen is appropriate. Patient is also taking gabapentin 300 mg twice a day. Delroy [id number] has been reviewed and is appropriate. Physical exam General: Alert and oriented x3, no acute distress, pleasant and cooperative, [on room air] Lungs: Respirations even and unlabored, symmetrical chest expansion Eyes: PERRL Musculoskeletal: Flexion and extension of lumbar [spine] somewhat guarded secondary to pain, [antalgic gait noted] Neurological: Speech clear, no gross sensory deficit Procedure Details:: Informed consent was obtained and the risk and benefits of the procedure were explained to the patient. The patient was taken to the procedure room where noninvasive monitoring was placed including noninvasive blood pressure cuff and pulse oximeter. Patient's pump was interrogated. The area over the pump was cleansed with chlorhexidine as a cleansing solution. In sterile fashion the pump was accessed with a 22-gauge needle. Approximately 10.5 mls of the pump solution was removed and discarded appropriately. The pump was then refilled with 20 mL's of bupivacaine 15 mg/mL. The needle was withdrawn and a bandage was placed over the puncture site. The infusion rate was reprogrammed and decreased to bupivacaine 2.75 mg/day. The patient tolerated well with no complication. Plan and Disposition:: We will see the patient back in the clinic at the next intrathecal refill. Patient has been instructed to contact the clinic with any concerns before the next appointment. Dr. Emmanuel has reviewed this note and agrees with this plan of care. This note was dictated using voice recognition software and make contain errors or omissions.
[2022-02-18 14:30] VITALS: BP 152/84; PULSE 82; RESP 20; O2SAT 92
== END 2022-02-18 14:30 | disposition home or self-care (01) ==
LOC: SC.PAINP 14:06
PROVIDERS: PCP Family Medicine; Visit Provider Student in an Organized Health Care Education/Training Program
DX: M51.16 Intervertebral disc disorders with radiculopathy, lumbar region (principal); Z45.1 Encounter for adjustment and management of infusion pump; I10 Essential (primary) hypertension; E78.5 Hyperlipidemia, unspecified; J44.9 Chronic obstructive pulmonary disease, unspecified; E11.9 Type 2 diabetes mellitus without complications; K85.90 Acute pancreatitis without necrosis or infection, unspecified; Z99.81 Dependence on supplemental oxygen; G43.909 Migraine, unspecified, not intractable, without status migrainosus; M19.90 Unspecified osteoarthritis, unspecified site; Z88.6 Allergy status to analgesic agent; Z88.1 Allergy status to other antibiotic agents
CPT/HCPCS: 62370

== ENCOUNTER 2022-02-25 17:10 | Emergency (ER) | payer MEDICARE, MEDICAID, SELFPAY ==
[2022-02-25 17:11] VITALS: BP 137/98; PULSE 84; RESP 16; TEMP 36.7; O2SAT 95; BMI 38.7
[2022-02-25 17:30] VITALS: BP 112/64; PULSE 77; O2SAT 97
[2022-02-25 18:00] VITALS: BP 92/57; PULSE 78; O2SAT 96
--- NOTE | 2022-02-25 18:46 | PC.NURSE ---
Went in to medicated patient and apologized for the delay, that I had gotten tied up with another patient. Advised pt we were going to get some labs and then she would be going for a CT with contrast so we could have better imaging. Pt advised we were not treating her appropriately and that she had been taking tylenol at home since it happened with no relief. I advised her I could only give what the doctor had ordered at the time. She continued to become upset and requested an AMA form to sign so she could leave. While obtaining AMA form, Dr. Chester went in and spoke with patient about leaving and pt advised she was still going to leave. Went into room with AMA form and pt advised she was still leaving. Pt signed AMA and advised she was going to call Cristina for not treating her right. I asked patient if I could help her get out, if she needed a wheelchair or any assistance. Pt advised she did not need my help and that her would be in to help get her. Her arrived and I explained to him that we had medicated her and that we were going to obtain bloodwork prior to her having scans. PT got into w/c and left with .
--- NOTE | 2022-02-25 18:53 | HMH.EDGENADL ---
ED Disposition Clinical Impression: Left against medical advice Disposition: Left Against Medical Advice Condition on Discharge: AMA Referrals: Juan C Colón MD [Primary Care Provider] - - Critical Care Critical Care Time: No Attestation: On 02/25/22, the high probability of a clinically significant, sudden or life threatening deterioration of the following system(s) required my full and direct attention, intervention and personal management. The time I documented below is in addition to time spent performing reported procedures but includes the following listed in this critical care notation. Medical Decision Making - Medical Records Medical records reviewed: Yes: I reviewed the patient's medical records. - Delroy Inquiry Pt receiving controlled substance: No Vital Signs: 02/25/22 17:11 02/25/22 17:30 02/25/22 18:00 Temperature 98.0 F Temperature Source Oral Pulse Rate 77 78 Pulse Rate [Right] 84 Respiratory Rate 16 Blood Pressure 112/64 92/57 L Blood Pressure [Right Arm] 137/98 H Blood Pressure Mean 85 68 Blood Pressure Mean [Right Arm] 111 Blood Pressure Source Blood Pressure Source [Right Arm] Automatic Cuff Blood Pressure Position [Right Arm] Sitting 02 Sat by Pulse Oximetry 95 97 96 Oxygen Delivery Method Room Air 02/25/22 18:55 Temperature 98.3 F Temperature Source Oral Pulse Rate 87 Pulse Rate [Right] Respiratory Rate 16 Blood Pressure 98/60 L Blood Pressure [Right Arm] Blood Pressure Mean Blood Pressure Mean [Right Arm] Blood Pressure Source Automatic Cuff Blood Pressure Source [Right Arm] Blood Pressure Position [Right Arm] 02 Sat by Pulse Oximetry Oxygen Delivery Method Room Air - Lab Data Lab results reviewed: Yes: I reviewed the patient's lab results. Orders (Tests/Meds): ED MEDICATIONS Discontinued Medications Generic Name Dose Route Start Last Admin Trade Name Freq PRN Reason Stop Dose Admin Acetaminophen 1,000 mg 02/25/22 17:35 02/25/22 18:26 Acetaminophen 500mg Tab PO 02/25/22 17:36 1,000 mg ONCE ONE Administration Lidocaine 1 each 02/25/22 17:34 02/25/22 18:26 Lidocaine 5% Transdermal Patch TP 02/25/22 17:35 1 each ONCE ONE Administration Methocarbamol 500 mg 02/25/22 21:00 02/25/22 18:27 Methocarbamol 500mg Tablet PO 03/27/22 20:59 500 mg BID CRISTOPHER Administration Medical Decision Narrative: Mrs. Arteaga is a 61-year-old female with past medical history for multiple stents currently on Brilinta, pain pump due to chronic pain, who presents to the emergency department for mechanical fall. Denies hitting head negative loss of consciousness. Patient has isolated left hip pain and left knee pain. Patient is neurovascularly intact and hemodynamically stable. Ambulatory prior to arrival. No sensory or motor deficits on exam. X-ray of the knee and CT abdomen and pelvis are obtained for further evaluation given concern for fractures and/or hematoma given patient is on blood thinner. Patient is given lidocaine patches, Robaxin and Toradol for symptomatic relief. Approximately 1hr into workup patient decides to leave AMA. Patient is informed of the risks and reports that she would like to go to another hospital at this time. General Adult HPI - General Chief complaint: Fall Stated complaint: AO 02/24 fellat home injured L Hip Time Seen by Provider: 02/25/22 17:15 Mode of Arrival: Wheelchair Source of Information: Patient Limitations: No Limitations Description of Symptoms (Recalled from ER Triage Doc. by RN): pt advises she fell yesterday and now has pain in her left hip, but has pain all over. Denies any LOC - History of Present Illness HPI narrative: Ms. Arteaga is a 61-year-old female with past medical history for heart disease status post multiple stents currently on Brilinta who presents to the emergency department for mechanical fall yesterday. Patient reports she tripped landing onto her left
[2022-02-25 18:55] VITALS: BP 98/60; PULSE 87; RESP 16; TEMP 36.8; O2SAT 98
== END 2022-02-25 18:56 | disposition left against medical advice (07) ==
LOC: ER 17:40
PROVIDERS: Emergency Provider Student in an Organized Health Care Education/Training Program; PCP Family Medicine
DX: M25.552 Pain in left hip (principal); M25.562 Pain in left knee; R00.2 Palpitations; I11.0 Hypertensive heart disease with heart failure; I50.9 Heart failure, unspecified; N28.9 Disorder of kidney and ureter, unspecified; I25.119 Atherosclerotic heart disease of native coronary artery with unspecified angina pectoris; I25.2 Old myocardial infarction; I73.9 Peripheral vascular disease, unspecified; K21.9 Gastro-esophageal reflux disease without esophagitis; E78.5 Hyperlipidemia, unspecified; I11.9 Hypertensive heart disease without heart failure; M54.9 Dorsalgia, unspecified; G89.4 Chronic pain syndrome; K86.1 Other chronic pancreatitis; M19.90 Unspecified osteoarthritis, unspecified site; J44.9 Chronic obstructive pulmonary disease, unspecified; F32.A Depression, unspecified; F41.9 Anxiety disorder, unspecified; Z79.01 Long term (current) use of anticoagulants; Z79.51 Long term (current) use of inhaled steroids; Z79.899 Other long term (current) drug therapy; Z88.1 Allergy status to other antibiotic agents; Z88.3 Allergy status to other anti-infective agents; Z88.5 Allergy status to narcotic agent; Z88.0 Allergy status to penicillin; Z88.8 Allergy status to other drugs, medicaments and biological substances; Z95.5 Presence of coronary angioplasty implant and graft; Z98.1 Arthrodesis status; Z86.73 Personal history of transient ischemic attack (TIA), and cerebral infarction without residual deficits; Z86.718 Personal history of other venous thrombosis and embolism; Z87.891 Personal history of nicotine dependence; W18.00XA Striking against unspecified object with subsequent fall, initial encounter
CPT/HCPCS: 99283

== ENCOUNTER 2022-04-08 14:02 | Day surgery (SDC) | payer MEDICARE, MEDICAID, SELFPAY ==
[2022-04-08 14:10] VITALS: BP 140/74; BP 169/100; BP 174/99; PULSE 59; PULSE 78; PULSE 81; RESP 20; TEMP 36.8; O2SAT 92; O2SAT 95; O2SAT 97; BMI 38.7
[2022-04-08 14:23] VITALS: BP 164/100; PULSE 78; RESP 20; O2SAT 95
--- NOTE | 2022-04-08 14:28 | HMH.PMPROC ---
- Procedure Date: 04/08/22 Time: 14:29 Anesthesiologist:: CECIL Steven Complications:: None Pre-procedure Diagnosis:: Degenerative disc disease of lumbar spine with lumbar radiculopathy symptoms Post-procedure Diagnosis:: Same Indications for Procedure:: Patient is a pleasant 61-year-old female who presents today for intrathecal pain pump [refill] [and reprogram]. The patient is being treated for degenerative disc disease of lumbar spine with lumbar radiculopathy symptoms. Currently being managed with bupivacaine 15 mg/mL at a rate of 2.75 mg/day. Denies any side effects from this medication. Denies any change in location of pain. Patient states that this medication is adequately managing her pain. Patient rates pain a 0 out of 10. Drug screen is appropriate. Delroy [id number] with an active morphine equivalent of 0 has been reviewed and is appropriate. Physical exam General: Alert and oriented x3, no acute distress, pleasant and cooperative, [on room air] Lungs: Respirations even and unlabored, symmetrical chest expansion Eyes: PERRL Musculoskeletal: Flexion and extension of lumbar [spine] somewhat guarded secondary to pain, [antalgic gait noted] Neurological: Speech clear, no gross sensory deficit Procedure Details:: Informed consent was obtained and the risk and benefits of the procedure were explained to the patient. The patient was taken to the procedure room where noninvasive monitoring was placed including noninvasive blood pressure cuff and pulse oximeter. Patient's pump was interrogated. The area over the pump was cleansed with chlorhexidine as a cleansing solution. [Fluoroscopy was used to access the pump]. In sterile fashion the pump was accessed with a 22-gauge needle. Approximately 9.5 mls of the pump solution was removed and discarded appropriately. The pump was then refilled with 20 mL's of bupivacaine 15 mg/mL. The needle was withdrawn and a bandage was placed over the puncture site. The infusion rate was reprogrammed and continued at bupivacaine 2.75 mg/day. The patient tolerated well with no complication. Plan and Disposition:: We will see the patient back in the clinic at the next intrathecal refill. Patient has been instructed to contact the clinic with any concerns before the next appointment. Dr. Emmanuel has reviewed this note and agrees with this plan of care. This note was dictated using voice recognition software and make contain errors or omissions.
== END 2022-04-08 14:24 | disposition home or self-care (01) ==
LOC: SC.PAINP 14:03
PROVIDERS: PCP Family Medicine; Visit Provider Student in an Organized Health Care Education/Training Program
DX: M51.16 Intervertebral disc disorders with radiculopathy, lumbar region (principal); Z45.1 Encounter for adjustment and management of infusion pump; I48.91 Unspecified atrial fibrillation; I50.9 Heart failure, unspecified; J44.9 Chronic obstructive pulmonary disease, unspecified; I25.10 Atherosclerotic heart disease of native coronary artery without angina pectoris; E11.9 Type 2 diabetes mellitus without complications; K21.9 Gastro-esophageal reflux disease without esophagitis; E78.5 Hyperlipidemia, unspecified; I11.0 Hypertensive heart disease with heart failure; I25.2 Old myocardial infarction; I73.9 Peripheral vascular disease, unspecified
CPT/HCPCS: 95991; Q9966

== ENCOUNTER 2022-05-27 14:05 | Day surgery (SDC) | payer MEDICARE, MEDICAID, SELFPAY ==
[2022-05-27 14:08] VITALS: BP 126/74; PULSE 68; RESP 18; TEMP 36.9; O2SAT 95; BMI 38.0
[2022-05-27 14:16] VITALS: BP 147/99; PULSE 96; RESP 20; O2SAT 91
--- NOTE | 2022-05-27 14:24 | P.PCN_ITS ---
- Procedure Date: 05/27/22 Time: 14:24 Anesthesiologist:: CECIL Steven Complications:: None Pre-procedure Diagnosis:: Degenerative disc disease of lumbar spine with lumbar radiculopathy symptoms Post-procedure Diagnosis:: same Indications for Procedure:: Patient is a pleasant 61-year-old female who presents today for intrathecal pump refill and medication refill. The patient is being treated for degenerative disc disease of lumbar spine with lumbar radiculopathy symptoms. Patient is currently being managed with bupivacaine 15 mg/mL at 2.75 mg/day. Patient denies any side effects from this medication. Patient rates pain a 0 out of 10. Drug screen is appropriate. [facility] [id number] has been reviewed and is appropriate. Physical exam General: Alert and oriented x3, no acute distress, pleasant and cooperative Lungs: Respirations even and unlabored, symmetrical chest expansion Eyes: PERRL Musculoskeletal: Flexion and extension of lumbar [spine] somewhat guarded secondary to pain, [antalgic gait noted] Neurological: Speech clear, no gross sensory deficit Procedure Details:: Informed consent was obtained and the risk and benefits of the procedure were explained to the patient. The patient was taken to the procedure room where noninvasive monitoring was placed including noninvasive blood pressure cuff and pulse oximeter. Patient's pump was interrogated. The area over the pump was cleansed with chlorhexidine as a cleansing solution. . In sterile fashion the pump was accessed with a 22-gauge needle. Approximately 10.2 mls of the pump solution was removed and discarded appropriately. The pump was then refilled with 20 mL's of bupivacaine 15 mg/mL. The needle was withdrawn and a bandage was placed over the puncture site. The infusion rate was reprogrammed and continued at Bupivacaine 2.75mg/day, at this time patient declined medication change. The patient tolerated well with no complication. Plan and Disposition:: We will see the patient back in the clinic at the next intrathecal refill. Patient requested her gabapentin be refilled she is taking 300 mg twice daily. We will send her 3 months refill on this gabapentin. Patient has been instructed to contact the clinic with any concerns before the next appointment. Dr. Emmanuel has reviewed this note and agrees with this plan of care. This note was dictated using voice recognition software and make contain errors or omissions.
[2022-05-27 14:27] VITALS: BP 127/80; PULSE 83; RESP 18; O2SAT 96
== END 2022-05-27 14:28 | disposition home or self-care (01) ==
LOC: SC.PAINP 14:06
PROVIDERS: PCP Family Medicine; Visit Provider Student in an Organized Health Care Education/Training Program
DX: M51.16 Intervertebral disc disorders with radiculopathy, lumbar region (principal)
CPT/HCPCS: 95991

== ENCOUNTER 2022-06-19 14:00 | Emergency (ER) | payer MEDICARE, MEDICAID, SELFPAY ==
[2022-06-19] VITALS (10 sets, daily range): BP systolic 106–143; BP diastolic 75–93; PULSE 75–91; RESP 16–18; TEMP 36.8; O2SAT 94–99; BMI 37.9
--- NOTE | 2022-06-19 14:10 | PC.NURSE ---
GLORIA JUAREZ at
[2022-06-19 14:35] LABS: Microscopic, Urine URINE MICROSCOPIC (MICROSCOPIC)
[2022-06-19 14:40] LABS: Appearance,Urine CLEAR (Clear); Bilirubin,Urine Negative (Negative); Blood, Urine Negative (Negative); Color,Urine YELLOW (Yellow); Glucose,Urine (UA) Negative (Negative); Ketones,Urine Negative (Negative); Leukocyte Esterase,Urine Negative (Negative); Nitrate,Urine Negative (Negative); PH,Urine 6.5 (5.0-8.5); Protein,Urine Negative (Negative); Specific Gravity, Urine 1.025 (1.005-1.030); Urobilinogen,Urine 0.2 EU/dl (0.2)
--- NOTE | 2022-06-19 14:47 | HMH.EDABDPAI ---
ED Disposition Clinical Impression: Chronic abdominal pain Disposition: Home, Self-Care Condition on Discharge: Good Instructions: DI for Chronic Pain -- Adult Prescriptions: Dicyclomine HCl [Bentyl 10mg capsule] 10 mg PO QID #28 cap Transmission Status: Pending to [facility] Referrals: Juan C Colón MD [Primary Care Provider] - - Critical Care Critical Care Time: No Attestation: On 06/19/22, the high probability of a clinically significant, sudden or life threatening deterioration of the following system(s) required my full and direct attention, intervention and personal management. The time I documented below is in addition to time spent performing reported procedures but includes the following listed in this critical care notation. Medical Decision Making - Medical Records Medical records reviewed: Yes: I reviewed the patient's medical records. - Delroy Inquiry Pt receiving controlled substance: Yes Delroy was queried for this patient: Yes Reference #:: [id number] Risks and benefits of using a controlled substance: were discussed with pt by me Vital Signs: 06/19/22 14:02 06/19/22 14:12 06/19/22 14:31 Temperature 98.2 F Temperature Source Oral Pulse Rate 86 79 Pulse Rate [Right Radial] 91 H Respiratory Rate 18 Blood Pressure 143/93 H 135/88 Blood Pressure [Right Arm] 143/93 H Blood Pressure Mean 108 103 Blood Pressure Mean [Right Arm] 109 Blood Pressure Source [Right Arm] Automatic Cuff Blood Pressure Position [Right Arm] Sitting 02 Sat by Pulse Oximetry 94 L 95 98 Oxygen Delivery Method Room Air Oxygen Flow Rate (LPM) 06/19/22 15:22 06/19/22 15:31 06/19/22 16:00 Temperature Temperature Source Pulse Rate 78 76 78 Pulse Rate [Right Radial] Respiratory Rate 16 Blood Pressure 128/82 119/76 125/80 Blood Pressure [Right Arm] Blood Pressure Mean 97 90 91 Blood Pressure Mean [Right Arm] Blood Pressure Source [Right Arm] Blood Pressure Position [Right Arm] 02 Sat by Pulse Oximetry 99 99 99 Oxygen Delivery Method Nasal Cannula Oxygen Flow Rate (LPM) 2 06/19/22 16:31 06/19/22 17:00 06/19/22 17:30 Temperature Temperature Source Pulse Rate 79 75 77 Pulse Rate [Right Radial] Respiratory Rate Blood Pressure 106/76 L 120/79 115/75 Blood Pressure [Right Arm] Blood Pressure Mean 83 90 84 Blood Pressure Mean [Right Arm] Blood Pressure Source [Right Arm] Blood Pressure Position [Right Arm] 02 Sat by Pulse Oximetry 99 99 99 Oxygen Delivery Method Oxygen Flow Rate (LPM) - Lab Data Lab Results 06/19/22 14:18: Urine Color Yellow, Urine Appearance Clear, Urine pH 6.5, Ur Specific Somis 1.025, Urine Protein Negative, Urine Glucose (UA) Negative, Urine Ketones Negative, Urine Blood Negative, Urine Nitrate Negative, Urine Bilirubin Negative, Urine Urobilinogen 0.2, Ur Leukocyte Esterase Negative, Urine RBC None, Urine WBC None, Ur Squamous Epith Cells Occasional, Urine Bacteria Trace, Urine Mucus 1+ 06/19/22 15:21: WBC 9.6, RBC 4.22, Hgb 11.6 L, Hct 35.8 L, MCV 84.8, MCH 27.6, MCHC 32.5, RDW 15.2, Plt Count 352, MPV 8.0, Neut % (Auto) 58.1, Lymph % (Auto) 33.2, Allen % (Auto) 4.8, Eos % (Auto) 3.4, Baso % (Auto) 0.5, Neut # (Auto) 5.6, Lymph # (Auto) 3.2, Allen # (Auto) 0.5, Eos # (Auto) 0.3, Baso # (Auto) 0.0 06/19/22 15:21: Sodium 134 L, Potassium 4.5, Chloride 98, Carbon Dioxide 29, Anion Gap 11.5, BUN 14, Creatinine 0.90, Estimated Creat Clear 99, Estimated GFR 64, Est GFR ( Amer) 77, Glucose 88, Calcium 8.7, Total Bilirubin 0.2, AST 46 H, ALT 37, Alkaline Phosphatase 159 H, Total Protein 6.8, Albumin 3.7, Globulin 3.1, Albumin/Globulin Ratio 1.2, Lipase 113 Result diagrams: 06/19/22 15:21 06/19/22 15:21 Orders (Tests/Meds): ED MEDICATIONS Generic Name Dose Route Start Last Admin Trade Name Freq PRN Reason Stop Dose Admin Sodium Chloride 10 ml 06/19/22 14:33 06/19/22 16:48 Sodium Chl
--- NOTE | 2022-06-19 14:57 | PC.NURSE ---
Patient called out asking how much longer it would be until she would get her pain meds. I informed the patient that a nurse will be in as soon as they can.
--- NOTE | 2022-06-19 15:03 | PC.NURSE ---
pt recieved morphine and zofran as ordered per MD, pt asked what was order and being given to her, when told she stated that would be a start.
[2022-06-19 15:05] LABS: Bacteria,Urine Trace /lpf; Mucus,Urine 1+ /lpf; Squamous Epithelial Cell,Urine Occasional #/hpf (0-5)
--- NOTE | 2022-06-19 15:42 | PC.NURSE ---
rounded on pt at this time. pt reports pain medication helped some but not enough. Will notify ER .
[2022-06-19 15:43] LABS: Basophils % 0.5 % (0.1-2.0); Eosinophils # 0.3 K/mm3 (0.0-0.4); Eosinophils % 3.4 % (0.1-12.0); Hematocrit 35.8 % (37.0-47.0); Hemoglobin 11.6 g/dL (12.2-16.2); Lymphocytes # 3.2 K/mm3 (0.7-4.5); Lymphocytes % 33.2 % (10-50); Mean Corpuscular HGB Conc 32.5 g/dL (31.8-35.4); Mean Corpuscular Hemoglobin 27.6 pg (27.0-31.2); Mean Corpuscular Volume 84.8 fl (81-99); Monocytes # 0.5 K/mm3 (0.1-1.0); Monocytes % 4.8 % (1.7-9.3); Neutrophils # 5.6 K/mm3 (1.8-7.8); Neutrophils % 58.1 % (37.0-80.0); Platelet Count 352 K/mm3 (142-424); Red Blood Count 4.22 M/mm3 (4.20-5.40); Red Cell Distribution Width 15.2 % (11.5-17.5); White Blood Count 9.6 K/mm3 (4.8-10.8)
--- NOTE | 2022-06-19 15:58 | CT_ITS ---
PROCEDURE INFORMATION: Exam: CT Abdomen And Pelvis With Contrast Exam date and time: 06/19/2022 4:42 PM Age: 61 years old Clinical indication: Abdominal pain; Prior surgery; Additional info: Llq pain, h/o pancreatitis TECHNIQUE: Imaging protocol: Computed tomography of the abdomen and pelvis with contrast. Radiation optimization: All CT scans at this facility use at least one of these dose optimization techniques: automated exposure control; mA and/or kV adjustment per patient size (includes targeted exams where dose is matched to clinical indication); or iterative reconstruction. Contrast material: ISOVUE; Contrast volume: 75 ml; Contrast route: IV; COMPARISON: CT ABDOMEN PELVIS W CON 01/15/2022 10:37 PM FINDINGS: Tubes, catheters and devices: Neural stimulator circuit in the right buttock. Neural stimulator wires within the lumbar spinal canal. Lungs: Scarring/atelectasis at the lung bases without acute findings. Liver: Hepatomegaly and hepatic steatosis. Liver measures 22 cm. The liver is otherwise unremarkable. Gallbladder and bile ducts: Cholecystectomy. There is no evidence of biliary ductal dilation. Pancreas: There is diffuse atrophy of the pancreatic parenchyma. There is diffuse, benign fatty infiltration of the pancreas. The pancreas is otherwise unremarkable. Spleen: The spleen demonstrates punctate calcifications, consistent with remote granulomatous organism exposure. The spleen is otherwise unremarkable. Adrenal glands: The adrenal glands are normal. Kidneys and ureters: There is a simple cyst in the right kidney measuring 34 mm. The right kidney is otherwise unremarkable. The right ureter is normal. The left ureter is normal. The left kidney is normal. Stomach and bowel: No bowel wall thickening, obstruction, or other acute pathology. Diffuse colonic diverticulosis is present. There is mildly excessive colonic stool content. Appendix: Appendix is not confidently visualized on this examination, however there are no significant inflammatory changes to the right lower quadrant. Intraperitoneal space: No free fluid, fluid collections, or pneumoperitoneum. Vasculature: The arterial vasculature demonstrates diffuse marked atherosclerotic calcification. Lymph nodes: No retroperitoneal, pelvic, or mesenteric adenopathy. Urinary bladder: The bladder is normal. Reproductive: There has been a hysterectomy. Bones/joints: No acute skeletal pathology. Moderate multilevel degenerative changes of the spine, as manifested by multilevel anterior osteophytes and multilevel decrease in intervertebral disc space. Soft tissues: Calcified injection granulomas are noted in the subcutaneous tissues of the buttocks. No acute body wall soft tissue findings. There is a fat-containing umbilical hernia. IMPRESSION: 1. No acute abdominopelvic pathology. 2. Incidental findings as above. COMMENTS: Consistent with the [employer]'s Incidental Findings Committee white paper (J Am Adela Radiol 2018): Any incidental renal lesion less than 1 cm or classified as too small to characterize, or any incidental cystic renal lesion characterized as simple-appearing, is likely benign. No follow-up imaging is recommended for these lesions per consensus recommendations based on imaging criteria.
[2022-06-19 15:59] LABS: Alanine Aminotransferase 37 U/L (12-78); Albumin Level 3.7 g/dl (3.5-5.0); Albumin/Globulin Ratio 1.2 (1.1-1.8); Alkaline Phosphatase 159 U/L (38-126); Anion Gap 11.5 mEq/L (5-15); Aspartate Amino Transferase 46 U/L (14-36); Bilirubin,Total 0.2 mg/dl (0.2-1.3); Blood Urea Nitrogen 14 mg/dl (7-17); Calcium 8.7 mg/dl (8.4-10.2); Carbon Dioxide 29 mmol/L (22.0-30.0); Chloride 98 mmol/L (98-107); Creatinine Clearance Estimated 99 mL/min (50-200); Estimated Glomerular Filt Rate 64 ml/min (>60); GFR (African American) 77 ML/MIN (>60); Globulin 3.1 g/dL (1.3-3.2); Glucose 88 mg/dl (74-100); Lipase 113 U/L (23-300); Potassium 4.5 mmoL/L (3.5-5.1); Sodium 134 mmol/L (136-145); Total Protein,Serum 6.8 g/dl (6.3-8.2)
--- NOTE | 2022-06-19 15:59 | PC.NURSE ---
ROUNDED ON PT, PT C/O INCREASED PT. MD NOTIFIED AT THIS TIME
--- NOTE | 2022-06-19 16:24 | PC.NURSE ---
radiology came to nurses station, reports they were at pt bs to take pt to CT. Reports pt states she can't go to Ct until she gets pain medication. Have notified ER MD of the above.
--- NOTE | 2022-06-19 16:38 | PC.NURSE ---
pt rang call light at this time, pt requesting pain medication. Notified pt ER MD is with a pt doing a procedure, will ask him as soon as he is available.
--- NOTE | 2022-06-19 16:40 | PC.NURSE ---
ED MD AT BEDSIDE TO REEVALUATE PT AND UPDATED ON POC. PT AGREES AND V/U
--- NOTE | 2022-06-19 16:45 | PC.NURSE ---
pt to CT with bacteriology technician via w[facility]
--- NOTE | 2022-06-19 17:44 | PC.NURSE ---
PT ASSISTED TO BR
== END 2022-06-19 17:59 | disposition home or self-care (01) ==
PROVIDERS: Emergency Provider Emergency Medicine; PCP Family Medicine
DX: R10.9 Unspecified abdominal pain (principal); G89.4 Chronic pain syndrome; Z87.19 Personal history of other diseases of the digestive system; Z79.899 Other long term (current) drug therapy; Z88.1 Allergy status to other antibiotic agents; Z88.6 Allergy status to analgesic agent; Z88.8 Allergy status to other drugs, medicaments and biological substances; J44.9 Chronic obstructive pulmonary disease, unspecified; I11.0 Hypertensive heart disease with heart failure; I50.9 Heart failure, unspecified; E11.9 Type 2 diabetes mellitus without complications; I25.10 Atherosclerotic heart disease of native coronary artery without angina pectoris
CPT/HCPCS: 74177; 80053; 81001; 83690; 85025; 96365; 96375; 99284; J1642; J2405; Q9967

== ENCOUNTER 2022-07-23 11:54 | Day surgery (SDC) | payer MEDICARE, MEDICAID, SELFPAY ==
[2022-07-23 12:02] VITALS: BP 144/78; PULSE 78; TEMP 36.5; O2SAT 93; BMI 33.9
[2022-07-23 12:20] VITALS: BP 110/58; PULSE 95; RESP 20; O2SAT 96
--- NOTE | 2022-07-23 12:28 | HMH.PMPROC ---
- Procedure Date: 07/23/22 Time: 12:28 Anesthesiologist:: Bakari Emmanuel MD Complications:: None Pre-procedure Diagnosis:: Degenerative disc disease of lumbar spine with lumbar radiculopathy symptoms Post-procedure Diagnosis:: same Indications for Procedure:: Patient is a pleasant 61-year-old white female who we are treating for low back pain with lumbar radicular symptoms. She does have an intrathecal bupivacaine pain pump in place. Currently going at 2.75 mg/day. She is doing well with her pump. She does get some restlessness of her legs especially at night. We will start her on Requip 0.25 mg daily. We will order this to see how she does with her restlessness. Delroy and drug screen are all appropriate. She does have an antalgic gait. Motor strength of the lower extremities is 5/5. There is no gross sensory deficit. Procedure Details:: Informed consent was obtained and the risks and benefits of the procedure was explained to the patient. The patient was taken to the procedure room. The pump was interrogated. The area over the pump was prepped using ChloraPrep. The pump was accessed with a 22-gauge needle. Approximately 9 mL's of the intrathecal solution was withdrawn and discarded. The pump was then refilled with 20 mL's of intrathecal bupivacaine 15 mg/mL. The pump was interrogated and the infusion was continued at 2.75 mg/day. The patient tolerated the procedure well with no complication. Plan and Disposition:: We will follow-up with this patient in 2 weeks. Will reevaluate her symptoms at that time. We will also order Requip 0.25 mg at night to help with her restless legs.
== END 2022-07-23 12:21 | disposition home or self-care (01) ==
LOC: SC.PAINP 11:55
PROVIDERS: PCP Family Medicine; Visit Provider Nurse Anesthetist, Certified Registered
DX: M51.16 Intervertebral disc disorders with radiculopathy, lumbar region (principal)
CPT/HCPCS: 62370

== ENCOUNTER 2022-09-14 03:06 | Emergency (ER) | payer MEDICARE, MEDICAID, SELFPAY ==
[2022-09-14] VITALS (7 sets, daily range): BP systolic 106–119; BP diastolic 63–98; PULSE 46–148; RESP 18–20; TEMP 36.9; O2SAT 92–96; BMI 38.7
--- NOTE | 2022-09-14 03:28 | HMH.EDABDPAI ---
Discharge Plan Disposition Patient Disposition: Home, Self-Care Chief Complaint: Abdominal Pain Prescriptions Prescriptions: No Action alprazolam 1 mg tablet 1 mg PO TIDP PRN (Reason: Anxiety) Qty: 90 0RF quetiapine 50 mg tablet 50 mg PO HS Qty: 90 0RF trazodone 100 mg tablet 100 mg PO HS Qty: 90 0RF duloxetine 60 mg capsule,delayed release(DR/EC) 60 mg PO BID Qty: 180 1RF prazosin 1 mg capsule 1 mg PO HS Qty: 90 0RF nitroglycerin 0.4 mg tablet, sublingual 0.4 mg sublingual Q5M PRN (Reason: chest pain) Qty: 30 1RF Rx Instructions: do not exceed 3 doses per episode montelukast 10 mg tablet 10 mg PO HS Qty: 90 3RF metformin 500 mg tablet extended release 24 hr See Rx Instructions .Route .COMPLEX 90 Days Qty: 180 0RF Rx Instructions: TAKE ONE TABLET BY MOUTH TWICE DAILY potassium chloride 20 mEq tablet extended release 20 meq PO DAILY Qty: 90 3RF ticagrelor 90 mg tablet 90 mg PO BID Qty: 60 5RF ergocalciferol (vitamin D2) 1,250 mcg (50,000 unit) capsule See Rx Instructions .Route .COMPLEX Qty: 12 0RF Rx Instructions: TAKE ONE CAPSULE BY MOUTH EVERY WEEK promethazine 25 mg tablet 25 mg PO Q6H PRN (Reason: Nausea) Qty: 60 0RF fluticasone propion-salmeterol 100-50 mcg/dose blister with device 1 ea IH BID Qty: 60 0RF albuterol sulfate 90 mcg/actuation HFA aerosol inhaler 2 inh IH Q4HP PRN (Reason: Wheezing) Qty: 8.5 0RF atorvastatin 40 mg tablet See Rx Instructions .ROUTE .COMPLEX Qty: 90 3RF Dose Instruction: TAKE ONE TABLET BY MOUTH EVERY DAY Rx Instructions: TAKE ONE TABLET BY MOUTH EVERY DAY lisinopril-hydrochlorothiazide 10-12.5 mg tablet 2 tab PO DAILY Qty: 90 0RF conjugated estrogens 0.3 mg tablet 0.3 mg PO DAILY Qty: 90 0RF cyclobenzaprine 10 mg tablet 10 mg PO TID PRN (Reason: muscle spasms) Qty: 90 3RF dicyclomine 10 MG capsule 10 mg PO QID ropinirole 0.25 MG tablet 0.25 mg PO HS Qty: 30 0RF ropinirole 0.25 mg tablet 0.25 mg PO HS Qty: 30 0RF Rx Instructions: administer 1-3 hours before bedtime ropinirole 0.25 mg tablet 0.25 mg PO HS Qty: 30 2RF Rx Instructions: administer 1-3 hours before bedtime gabapentin 300 MG capsule 300 mg PO BID Qty: 60 2RF gabapentin 300 mg capsule 300 mg PO BID Qty: 60 2RF ropinirole 0.25 mg tablet 0.25 mg PO HS 30 Days Qty: 30 2RF pantoprazole 20 MG tablet,delayed release (DR/EC) 20 mg PO DAILY isosorbide mononitrate 30 MG tablet extended release 24 hr 30 mg PO DAILY metoprolol succinate 25 MG tablet extended release 24 hr See Rx Instructions .Route .COMPLEX Rx Instructions: Take ONE-HALF TABLET BY MOUTH DAILY Referrals Follow up/Referrals: Juan C Colón MD [Primary Care Provider] - See instructions Clinical Impressions Clinical Impression: Abdominal pain Instructions Patient Instructions: DI for Acute Abdominal Pain Discharge ED Provider: [facility] Abdominal Pain HPI General Chief Complaint: Abdominal Pain Stated Complaint: Adomen Pain Time Seen by Provider: 09/14/22 03:28 Mode of Arrival: Wheelchair Source of Information: Patient and Medical Record Limitations: No Limitations Description of Symptoms (Recalled from ER Triage Doc. by RN): pt c/o nauesous and mucous bm that started yesterday, arounf midnight pt starting having abd pain. History of Present Illness HPI narrative: pt with hx of ongoing abd pain with episodes of pancreatitis - has reported diarrhea - no fever and has nausea complaint: abdominal pain Onset (ago): hour(s) Consistency: colicky Location: diffuse Severity: similar to previous episodes Quality: sharp Associated symptoms: nausea and vomiting Related Data Home Medications Medication Instructions Recorded Confirmed pantoprazole 20 mg tablet,delayed 20 mg PO DAILY acid reflux 07/16/21 08/30/22 release isos
--- NOTE | 2022-09-14 03:41 | CT_ITS ---
PROCEDURE INFORMATION: Exam: CT Abdomen And Pelvis Without Contrast Exam date and time: 09/14/2022 3:53 AM Age: 61 years old Clinical indication: Abdominal pain; Acute; Prior surgery; Surgery date: 6+ months; Surgery type: Gb, hysterectomy; Additional info: Abd pain, patient stated she has a HX of pancreatitis TECHNIQUE: Imaging protocol: Computed tomography of the abdomen and pelvis without contrast. Radiation optimization: All CT scans at this facility use at least one of these dose optimization techniques: automated exposure control; mA and/or kV adjustment per patient size (includes targeted exams where dose is matched to clinical indication); or iterative reconstruction. COMPARISON: CT ABDOMEN PELVIS W CON 06/19/2022 4:42 PM FINDINGS: Tubes, catheters and devices: An implanted spinal stimulator device is noted. Heart: Coronary atherosclerosis is noted. Liver: Normal. No mass. Gallbladder and bile ducts: The patient is status post cholecystectomy. Pancreas: Normal. No ductal dilation. Spleen: Normal. No splenomegaly. Adrenal glands: Normal. No mass. Kidneys and ureters: Right renal cyst. No stones or obstruction noted.. No hydronephrosis. Stomach and bowel: Sigmoid diverticulosis is noted. Appendix: No evidence of appendicitis. Intraperitoneal space: Unremarkable. No free air. No significant fluid collection. Vasculature: Unremarkable. No abdominal aortic aneurysm. Lymph nodes: Unremarkable. No enlarged lymph nodes. Urinary bladder: Unremarkable as visualized. Reproductive: The patient is status post hysterectomy. Bones/joints: Unremarkable. No acute fracture. Soft tissues: A small fat containing umbilical hernia is present. IMPRESSION: 1. No acute process identified to explain the patient's pain. 2. Status post cholecystectomy and hysterectomy. 3. Coronary atherosclerosis. COMMENTS: Consistent with the [employer]'s Incidental Findings Committee white paper (J Am Adela Radiol 2018): Any incidental renal lesion less than 1 cm or classified as too small to characterize, or any incidental cystic renal lesion characterized as simple-appearing, is likely benign. No follow-up imaging is recommended for these lesions per consensus recommendations based on imaging criteria.
[2022-09-14 03:51] LABS: Microscopic, Urine URINE MICROSCOPIC (MICROSCOPIC)
[2022-09-14 03:55] LABS: Basophils # 0.1 K/mm3 (0-0.2); Basophils % 0.7 % (0.1-2.0); Eosinophils # 0.3 K/mm3 (0.0-0.4); Eosinophils % 1.7 % (0.1-12.0); Hematocrit 40.9 % (37.0-47.0); Hemoglobin 12.8 g/dL (12.2-16.2); Lymphocytes % 24.8 % (10-50); Mean Corpuscular HGB Conc 31.3 g/dL (31.8-35.4); Mean Corpuscular Hemoglobin 28.5 pg (27.0-31.2); Mean Platelet Volume 9.3 fl (7.4-10.4); Monocytes # 0.6 K/mm3 (0.1-1.0); Neutrophils # 11.2 K/mm3 (1.8-7.8); Neutrophils % 68.8 % (37.0-80.0); Platelet Count 358 K/mm3 (142-424); Red Cell Distribution Width 15.5 % (11.5-17.5); White Blood Count 16.3 K/mm3 (4.8-10.8)
[2022-09-14 03:56] LABS: Appearance,Urine CLEAR (Clear); Bilirubin,Urine Negative (Negative); Blood, Urine Negative (Negative); Color,Urine YELLOW (Yellow); Glucose,Urine (UA) Negative (Negative); Ketones,Urine Negative (Negative); Leukocyte Esterase,Urine Negative (Negative); Nitrate,Urine Negative (Negative); Protein,Urine Negative (Negative); Specific Gravity, Urine >= 1.030 (1.005-1.030); Urobilinogen,Urine 0.2 EU/dl (0.2)
[2022-09-14 04:00] LABS: Alanine Aminotransferase 35 U/L (12-78); Albumin Level 3.9 g/dl (3.5-5.0); Albumin/Globulin Ratio 1.3 (1.1-1.8); Alkaline Phosphatase 172 U/L (38-126); Amylase 58 U/L (30-110); Anion Gap 16.3 mEq/L (5-15); Aspartate Amino Transferase 38 U/L (14-36); Bilirubin,Total 0.5 mg/dl (0.2-1.3); Blood Urea Nitrogen 15 mg/dl (7-17); Calcium 8.2 mg/dl (8.4-10.2); Carbon Dioxide 27 mmol/L (22.0-30.0); Chloride 95 mmol/L (98-107); Creatinine Clearance Estimated 102 mL/min (50-200); Estimated Glomerular Filt Rate 56 ml/min (>60); GFR (African American) 68 ML/MIN (>60); Globulin 2.9 g/dL (1.3-3.2); Glucose 212 mg/dl (74-100); Lipase 86 U/L (23-300); Potassium 3.3 mmoL/L (3.5-5.1); Sodium 135 mmol/L (136-145); Total Protein,Serum 6.8 g/dl (6.3-8.2)
[2022-09-14 04:01] LABS: Amorphous Sediment,Urine Trace /lpf; Squamous Epithelial Cell,Urine Occasional #/hpf (0-5)
[2022-09-14 04:01] LABS: MANUAL DIFFERENTIAL MANUAL DIFFERENTIAL (MANUAL DIFF)
[2022-09-14 04:09] LABS: Hypochromasia 1+; Lymphocytes % 27 % (10-50); Monocytes % 2 % (2-9); Neutrophils % 69 % (42-76); Platelet Estimate Normal; Total Cells Counted 100
--- NOTE | 2022-09-14 05:35 | HMH.EDABDPAI ---
Discharge Plan Disposition Patient Disposition: Home, Self-Care Prescriptions Prescriptions: No Action alprazolam 1 mg tablet 1 mg PO TIDP PRN (Reason: Anxiety) Qty: 90 0RF quetiapine 50 mg tablet 50 mg PO HS Qty: 90 0RF trazodone 100 mg tablet 100 mg PO HS Qty: 90 0RF duloxetine 60 mg capsule,delayed release(DR/EC) 60 mg PO BID Qty: 180 1RF prazosin 1 mg capsule 1 mg PO HS Qty: 90 0RF nitroglycerin 0.4 mg tablet, sublingual 0.4 mg sublingual Q5M PRN (Reason: chest pain) Qty: 30 1RF Rx Instructions: do not exceed 3 doses per episode montelukast 10 mg tablet 10 mg PO HS Qty: 90 3RF metformin 500 mg tablet extended release 24 hr See Rx Instructions .Route .COMPLEX 90 Days Qty: 180 0RF Rx Instructions: TAKE ONE TABLET BY MOUTH TWICE DAILY potassium chloride 20 mEq tablet extended release 20 meq PO DAILY Qty: 90 3RF ticagrelor 90 mg tablet 90 mg PO BID Qty: 60 5RF ergocalciferol (vitamin D2) 1,250 mcg (50,000 unit) capsule See Rx Instructions .Route .COMPLEX Qty: 12 0RF Rx Instructions: TAKE ONE CAPSULE BY MOUTH EVERY WEEK promethazine 25 mg tablet 25 mg PO Q6H PRN (Reason: Nausea) Qty: 60 0RF fluticasone propion-salmeterol 100-50 mcg/dose blister with device 1 ea IH BID Qty: 60 0RF albuterol sulfate 90 mcg/actuation HFA aerosol inhaler 2 inh IH Q4HP PRN (Reason: Wheezing) Qty: 8.5 0RF atorvastatin 40 mg tablet See Rx Instructions .ROUTE .COMPLEX Qty: 90 3RF Dose Instruction: TAKE ONE TABLET BY MOUTH EVERY DAY Rx Instructions: TAKE ONE TABLET BY MOUTH EVERY DAY lisinopril-hydrochlorothiazide 10-12.5 mg tablet 2 tab PO DAILY Qty: 90 0RF conjugated estrogens 0.3 mg tablet 0.3 mg PO DAILY Qty: 90 0RF cyclobenzaprine 10 mg tablet 10 mg PO TID PRN (Reason: muscle spasms) Qty: 90 3RF dicyclomine 10 MG capsule 10 mg PO QID ropinirole 0.25 MG tablet 0.25 mg PO HS Qty: 30 0RF ropinirole 0.25 mg tablet 0.25 mg PO HS Qty: 30 0RF Rx Instructions: administer 1-3 hours before bedtime ropinirole 0.25 mg tablet 0.25 mg PO HS Qty: 30 2RF Rx Instructions: administer 1-3 hours before bedtime gabapentin 300 MG capsule 300 mg PO BID Qty: 60 2RF gabapentin 300 mg capsule 300 mg PO BID Qty: 60 2RF ropinirole 0.25 mg tablet 0.25 mg PO HS 30 Days Qty: 30 2RF pantoprazole 20 MG tablet,delayed release (DR/EC) 20 mg PO DAILY isosorbide mononitrate 30 MG tablet extended release 24 hr 30 mg PO DAILY metoprolol succinate 25 MG tablet extended release 24 hr See Rx Instructions .Route .COMPLEX Rx Instructions: Take ONE-HALF TABLET BY MOUTH DAILY Referrals Follow up/Referrals: Juan C Colón MD [Primary Care Provider] - See instructions Clinical Impressions Clinical Impression: Abdominal pain Instructions Patient Instructions: DI for Acute Abdominal Pain Discharge ED Provider: [facility] Abdominal Pain HPI General Chief Complaint: Abdominal Pain Stated Complaint: Adomen Pain Time Seen by Provider: 09/14/22 03:28 Mode of Arrival: Wheelchair Source of Information: Patient and Medical Record Limitations: No Limitations Description of Symptoms (Recalled from ER Triage Doc. by RN): pt c/o nauesous and mucous bm that started yesterday, arounf midnight pt starting having abd pain. History of Present Illness complaint: abdominal pain Location: diffuse Severity: similar to previous episodes Quality: sharp Associated symptoms: nausea and vomiting Related Data Home Medications Medication Instructions Recorded Confirmed pantoprazole 20 mg tablet,delayed 20 mg PO DAILY acid reflux 07/16/21 08/30/22 release isosorbide mononitrate 30 mg 30 mg PO DAILY High blood pressure 10/24/21 08/30/22 tablet,extended release 24 hr metoprolol succinate 25 mg See Rx Instructions .Route 04/08/22 08/30/22 tablet,extended release
== END 2022-09-14 06:15 | disposition home or self-care (01) ==
PROVIDERS: Emergency Provider Emergency Medicine; PCP Family Medicine
DX: R10.9 Unspecified abdominal pain (principal); Z79.899 Other long term (current) drug therapy; K21.9 Gastro-esophageal reflux disease without esophagitis; Z88.1 Allergy status to other antibiotic agents; Z88.6 Allergy status to analgesic agent
CPT/HCPCS: 74176; 80053; 81001; 82150; 83690; 85007; 85025; 99284; J1642; J2405

== ENCOUNTER 2022-09-17 09:57 | Day surgery (SDC) | payer MEDICARE, MEDICAID, SELFPAY ==
[2022-09-17 10:06] VITALS: BP 120/98; PULSE 83; RESP 16; TEMP 36.6; O2SAT 94; BMI 38.7
[2022-09-17 10:23] VITALS: BP 150/104; PULSE 87; RESP 18; O2SAT 98
[2022-09-17 10:24] VITALS: BP 150/104; PULSE 87; RESP 18; O2SAT 98
--- NOTE | 2022-09-17 10:30 | P.PCN_ITS ---
Procedure Date: 09/17/22 Time: 10:25 Anesthesiologist:: Josue Tristan CRNA Complications:: None Pre-procedure Diagnosis:: Degenerative disc disease and lumbar spine with lumbar radiculopathy symptoms Post-procedure Diagnosis:: Same Indications for Procedure:: Patient is a pleasant 62-year-old female who presents today for intrathecal pain pump refill and reprogram. We are currently treating the patient for degenerative disc disease of lumbar spine with lumbar radiculopathy symptoms. T heather she rates her pain a 6 out of 10. She states this pain is primarily in her back and lower extremities. Patient does state her symptoms are worse with the changing weather. Patient denies any new trauma or injury. She denies any change of location or type of pain she experiences. We are currently managing the patient with bupivacaine 15 mg/mL with a daily dose of 2.75 mg/day. Patient denies any side effects from this medication. She states this medication is adequately managing her pain symptoms. She is not requesting a adjustment at today's visit. Physical exam General: Alert and oriented x3, no acute distress, cooperative and pleasant on room air Lungs: Regular rate and rhythm, clear to auscultation Eyes: PERRL Musculoskeletal: Flexion and extension of lumbar spine somewhat guarded secondary to pain antalgic gait noted Neurological: No gross sensory deficit, speech clear Procedure Details:: Informed consent was obtained and the risk and benefits of the procedure were explained to the patient. The patient was taken to the procedure room and placed in a sitting position on the procedure room table. Noninvasive monitori ng was placed on the patient including a noninvasive blood pressure cuff and pulse oximeter. The pump was interrogated with 8.4 mL of solution expected. The area around the pump was cleansed with chlorhexidine as a cleansing solution. The pump was accessed with a 22-gauge needle approximately 8.5 mL of solution was withdrawn and discarded appropriately. The pump was then refilled with 20 mL of bupivacaine 15 mg/mL with a daily dose of 2.75 mg/day. The needle was withdrawn and a bandage was placed over the insertion site. The patient tolerated the procedure well with no complications. Plan and Disposition:: We will see the patient back at her next intrathecal pump refill date. The patient has been counseled to contact the office with any questions or concerns before the next appointment. Dr. Emmanuel has read this note and agrees with this plan of care. This note was dictated using voice recognition software and may contain errors or omissions.
[2022-09-17 10:33] VITALS: BP 118/80; PULSE 66; RESP 18; O2SAT 91
== END 2022-09-17 10:33 | disposition home or self-care (01) ==
PROVIDERS: PCP Family Medicine; Visit Provider Nurse Anesthetist, Certified Registered
DX: M51.16 Intervertebral disc disorders with radiculopathy, lumbar region (principal)
CPT/HCPCS: 95991

== ENCOUNTER 2022-11-05 09:57 | Day surgery (SDC) | payer MEDICARE, MEDICAID, SELFPAY ==
[2022-11-05 10:14] VITALS: BP 116/73; PULSE 82; RESP 18; TEMP 36.3; O2SAT 93; BMI 38.7
[2022-11-05 10:23] VITALS: BP 134/100; PULSE 90; RESP 19
[2022-11-05 10:50] VITALS: BP 111/76; PULSE 81; RESP 18; O2SAT 92
--- NOTE | 2022-11-05 11:12 | EXP.PAIN.PRO ---
Procedure Date: 11/05/22 Time: 11:30 Anesthesiologist:: Josue Tristan CRNA Complications:: None Pre-procedure Diagnosis:: Degenerative disc disease lumbar spine multilevels. Lumbar radiculopathy. Post-procedure Diagnosis:: Same. Indications for Procedure:: Very pleasant 60-year-old female comes our clinic today for intrathecal pain pump refill. Patient currently being managed with bupivacaine 15 mg/mL at 2.75 mg/day. Patient seems to be doing very well with this current management. However, patient does complain of right sacroiliac joint pain. She has extreme point tenderness over the right SI joint. Patient has had 1 injection to the right sacroiliac joint which produced significant improvement in her pain. However, the relief was for about 2 weeks. She was recently denied a right corner lock system implant. I suggest we repeat the right sacroiliac joint injection within the next 2 weeks. We will dictate relief quality and quantity following injection. Patient agrees. Wishes to proceed. Procedure Details:: Details of the procedure were explained to the patient. The patient was taken the procedure room placed in the sitting position. The area over the pump was cleansed using chlorhexidine as a cleansing solution. Using a 22-gauge inch and a half needle the pump was accessed with ease. 9.5 mL of solution was withdrawn and discarded appropriately. The pump was then filled with 20 cc of bupivacaine 15 mg/mL at 2.75 mg/day. Patient tolerated procedure without difficulty. There are no complications. Plan and Disposition:: Patient was discharged without incident. She was scheduled for right sacroiliac joint injection.
== END 2022-11-05 10:50 | disposition home or self-care (01) ==
LOC: SC.PAINP 09:57
PROVIDERS: PCP Family Medicine; Visit Provider Nurse Anesthetist, Certified Registered
DX: M51.16 Intervertebral disc disorders with radiculopathy, lumbar region (principal)
CPT/HCPCS: 95991

== ENCOUNTER 2022-11-12 12:52 | Day surgery (SDC) | payer MEDICARE, MEDICAID, SELFPAY ==
[2022-11-12 12:57] VITALS: BP 152/92; PULSE 91; RESP 18; TEMP 36.2; O2SAT 96; BMI 38.7
[2022-11-12 13:00] VITALS: BP 146/99; PULSE 93; RESP 18; O2SAT 97
--- NOTE | 2022-11-12 13:06 | EXP.PAIN.PRO ---
Procedure Date: 11/12/22 Time: 13:00 Anesthesiologist:: Josue Tristan CRNA Complications:: None Pre-procedure Diagnosis:: Right sacroiliitis Post-procedure Diagnosis:: Same. Indications for Procedure:: Patient is a very pleasant 62-year-old returns our clinic today for right sacroiliac joint injection. Patient is had this injection in the past with some significant improvements however, only a short duration of relief. She has extreme point tenderness over the right sacroiliac joint upon examination. Patient reports having difficulty transitioning from sitting to standing. She rates the pain 8/10. Procedure Details:: Procedure: Right sacroliliac joint injection under fluoroscopy Informed consent was obtained and the risk and benefits of the procedure were explained to the patient.~ The patient was taken to the procedure room and noninvasive monitors were placed including noninvasive blood pressure cuff and pulse oximeter.~ The patient was placed prone on the procedure table.~ The~ right hip was cleansed using Betadine as a cleansing solution.~ C-arm fluorosocpy was used to view the right SI joint.~ The skin and subcutaneous tissues were anesthetized using Lidocaine 1.5% and a 25-gauge needle.~ After this, a 22-gauge spinal needle was inserted under fluoroscopic guidance into the inferior aspect of the right SI joint.~ Omnipaque dye was injected and a good spread was seen throughout the joint.~ After this, approximately 5 mL of bupivacaine 0.25% and Depo-Medrol 40 mg was incrementally injected into the sacroiliac joint.~ The patient tolerated the procedure well with no complications.~ The patient was observed in the Pain Clinic, then discharged home neurologically intact.~ Plan and Disposition:: Patient was discharged without incident.
[2022-11-12 13:07] VITALS: BP 155/92; PULSE 88; RESP 18; O2SAT 96
== END 2022-11-12 13:07 | disposition home or self-care (01) ==
PROVIDERS: PCP Family Medicine; Visit Provider Nurse Anesthetist, Certified Registered
DX: M46.1 Sacroiliitis, not elsewhere classified (principal)
CPT/HCPCS: 27096; G0260; J1040

== ENCOUNTER 2022-12-17 13:08 | Day surgery (SDC) | payer MEDICARE, MEDICAID, SELFPAY ==
[2022-12-17 13:31] VITALS: BP 115/65; PULSE 97; RESP 18; TEMP 36.3; O2SAT 4; BMI 38.7
[2022-12-17 14:04] VITALS: BP 162/97; PULSE 102; RESP 20; O2SAT 97
[2022-12-17 14:12] VITALS: BP 133/89; PULSE 97; RESP 18; O2SAT 92
--- NOTE | 2022-12-17 14:12 | EXP.PAIN.PRO ---
Procedure Date: 12/17/22 Time: 14:12 Anesthesiologist:: Josue Tristan CRNA Complications:: None Pre-procedure Diagnosis:: Degenerative disc disease of lumbar spine with lumbar radiculopathy symptoms, chronic sacroiliitis Post-procedure Diagnosis:: Same Indications for Procedure:: Patient is a pleasant 62-year-old female who presents today for intrathecal pain pump refill and reprogram. We are currently treating the patient for degenerative disc disease of lumbar spine with lumbar radiculopathy symptoms, chronic sacroiliitis. Today she rates her pain a 5 out of 10. Patient states her pain is all along her low back on the right side with radiating symptoms into her right leg. Patient describes this as a burning, throbbing sensation that is worse with increased activity. Patient states she cannot tolerate prolonged sitting, standing, walking due to the pain. Patient does state that she has decreased ability to perform activities of daily living such as cooking and cleaning due to the worsening pain symptoms. Patient states this pain has been going on for approximately 3 years and she has had multiple SI injections that helped significantly however short-term. Patient does state that she has had at least 70% relief following these injections lasting a couple of weeks. Patient denies any new trauma or injury. Patient denies any change to location or type of pain she experiences. Patient states that she has tried [id number] Tylenol or ibuprofen with minimal improvement. Patient has also tried creams such as icy hot and Biofreeze and heat and ice with minimal relief. Patient has had physical therapy in the past and continues to do at home stretching and exercise for longer than 6 weeks however this is affected by how bad her pain is on a day-to-day basis. patient is currently managed with bupivacaine 15 mg/mL with a daily dose of 2.75 mg/day. Patient denies any side effects from this medication. She states this medication does adequately help manage her back pain. Her Delroy has been reviewed and appropriate. Right SI injection-11/19/2022 bilateral SI injection 11/19/2021 Bilateral SI injection 09/19/2021 General: Alert and oriented x3, no acute distress, pleasant and cooperative Lungs: Respiration even unlabored, symmetrical chest expansion Eyes: PERRL Musculoskeletal: Flexion and extension of lumbar spine somewhat guarded secondary to pain, antalgic gait noted. Extreme point tenderness at right SI and positive right Anayeli's, Masha's, Gaenslen's, compression and distraction exam Neurological: Speech clear, no gross sensory deficit Procedure Details:: Informed consent was obtained and the risk and benefits of the procedure were explained to the patient. The patient was taken to the procedure room where noninvasive monitoring was placed on the patient including a noninvasive blood pressure cuff and pulse oximeter. The patient's pump was interrogated with approximately 11.2 mL of solution expected. The area over the pump was cleansed with ChloraPrep as a cleansing solution. Using a 22-gauge sterile needle the pump was accessed with approximately 11 mL of solution removed and discarded appropriately. The pump was then refilled with 20 mL of bupivacaine 15 mg/mL. Needle was removed and a sterile bandage placed over the puncture site. The pump was then reinterrogated and continued at bupivacaine 2.75 mg/day. The patient tolerated the procedure well with no complications. Plan and Disposition:: Patient is experiencing significant pain along her low back on the right side that radiates into her right leg. Patient did have limited range of motion of her lumbar spine and extreme point tenderness of her right SI with positive right Anayeli's, Masha's, Gaenslen's, compression and distraction exam. I have discussed with the patient that she may benefit from a transloc sacroiliac stabilization procedure. Risk and benefits were discussed with the pat
== END 2022-12-17 14:12 | disposition home or self-care (01) ==
PROVIDERS: PCP Family Medicine; Visit Provider Nurse Anesthetist, Certified Registered
DX: M51.16 Intervertebral disc disorders with radiculopathy, lumbar region (principal); M46.1 Sacroiliitis, not elsewhere classified; Z45.1 Encounter for adjustment and management of infusion pump
CPT/HCPCS: 95991

== ENCOUNTER 2022-12-22 17:58 | Emergency (ER) | payer MEDICARE, MEDICAID, SELFPAY ==
[2022-12-22 18:16] VITALS: BP 180/98; PULSE 82; RESP 20; TEMP 37.1; O2SAT 98; BMI 38.7
--- NOTE | 2022-12-22 18:56 | XR_ITS ---
PROCEDURE INFORMATION: Exam: XR Chest Exam date and time: 12/22/2022 7:22 PM Age: 62 years old Clinical indication: Shortness of breath TECHNIQUE: Imaging protocol: Radiologic exam of the chest. Views: 1 view. COMPARISON: CR XR CHEST PORTABLE 12/18/2021 5:56 PM FINDINGS: Tubes, catheters and devices: Right-sided MediPort tip overlying lower SVC. Lungs: No consolidation. Pleural spaces: No pneumothorax. Heart/Mediastinum: Cardiomegaly is unchanged. Bones/joints: Postsurgical changes to the cervical spine. IMPRESSION: No acute findings.
[2022-12-22 19:01] VITALS: BP 140/88; PULSE 81; RESP 20; O2SAT 98
--- NOTE | 2022-12-22 19:03 | HMH.EDGENADL ---
Discharge Plan Disposition Patient Disposition: Home, Self-Care Condition: Good Prescriptions Prescriptions: New prednisone 20 mg tablet 20 mg PO BID Qty: 10 0RF azithromycin [Zithromax] 250 mg tablet 250 mg PO DAILY 4 Days Qty: 4 0RF Rx Instructions: start on day 2 of therapy No Action quetiapine 50 mg tablet 50 mg PO HS Qty: 90 0RF trazodone 100 mg tablet 100 mg PO HS Qty: 90 0RF duloxetine 60 mg capsule,delayed release(DR/EC) 60 mg PO BID Qty: 180 1RF prazosin 1 mg capsule 1 mg PO HS Qty: 90 0RF nitroglycerin 0.4 mg tablet, sublingual 0.4 mg sublingual Q5M PRN (Reason: chest pain) Qty: 30 1RF Rx Instructions: do not exceed 3 doses per episode montelukast 10 mg tablet 10 mg PO HS Qty: 90 3RF potassium chloride 20 mEq tablet extended release 20 meq PO DAILY Qty: 90 3RF ticagrelor 90 mg tablet 90 mg PO BID Qty: 60 5RF ergocalciferol (vitamin D2) 1,250 mcg (50,000 unit) capsule See Rx Instructions .Route .COMPLEX Qty: 12 0RF Rx Instructions: TAKE ONE CAPSULE BY MOUTH EVERY WEEK fluticasone propion-salmeterol 100-50 mcg/dose blister with device 1 ea IH BID Qty: 60 0RF albuterol sulfate 90 mcg/actuation HFA aerosol inhaler 2 inh IH Q4HP PRN (Reason: Wheezing) Qty: 8.5 0RF cyclobenzaprine 10 mg tablet 10 mg PO TID PRN (Reason: muscle spasms) Qty: 90 3RF metoprolol succinate 25 mg tablet extended release 24 hr See Rx Instructions .Route .COMPLEX Qty: 90 3RF Rx Instructions: Take ONE-HALF TABLET BY MOUTH DAILY pantoprazole 20 mg tablet,delayed release (DR/EC) 20 mg PO BID Qty: 180 3RF metformin 500 mg tablet extended release 24 hr See Rx Instructions .Route .COMPLEX 90 Days Qty: 180 0RF Rx Instructions: TAKE ONE TABLET BY MOUTH TWICE DAILY promethazine 25 mg tablet 25 mg PO Q6H PRN (Reason: Nausea) Qty: 60 0RF methylprednisolone [Medrol (Matt)] 4 mg tablets,dose pack See Rx Instructions PO PER PKG DIR Qty: 21 0RF Rx Instructions: PO PER PKG DIR alprazolam 1 mg tablet 1 mg PO TIDP PRN (Reason: Anxiety) Qty: 20 0RF dicyclomine 10 MG capsule 10 mg PO QID gabapentin 300 MG capsule 300 mg PO BID Qty: 60 2RF isosorbide mononitrate 30 MG tablet extended release 24 hr 30 mg PO DAILY atorvastatin 40 mg tablet See Rx Instructions .ROUTE .COMPLEX Rx Instructions: TAKE ONE TABLET BY MOUTH EVERY DAY gabapentin 300 mg capsule 300 mg PO BID lisinopril-hydrochlorothiazide 10-12.5 mg tablet See Rx Instructions .ROUTE .COMPLEX Rx Instructions: take 2 tabs by mouth daily for Hypertension Premarin 0.3 mg tablet See Rx Instructions .ROUTE .COMPLEX Rx Instructions: take 1 tablet daily for hormone replacement therapy ropinirole 0.25 mg tablet 0.25 mg PO HS Qty: 30 2RF Rx Instructions: administer 1-3 hours before bedtime Referrals Follow up/Referrals: Juan C Colón MD [Primary Care Provider] - See instructions Activity Restrictions/Add. Instructions Additional Instructions/Restrictions: Prednisone and Zithromax as prescribed. Follow-up with primary care provider, call tomorrow to make appointment. Clinical Impressions Clinical Impression: Acute bronchitis Instructions Patient Instructions: DI for Acute Bronchitis Discharge ED Provider: Rusty Patel General Adult HPI General Chief complaint: Shortness of Breath/Dyspnea Stated complaint: SOA, nausea, V/D Time Seen by Provider: 12/22/22 18:57 Mode of Arrival: Wheelchair Source of Information: Patient Limitations: No Limitations Description of Symptoms (Recalled from ER Triage Doc. by RN): pt to ed c/o shortness of air and cough. pt states she has a hx of copd. pt states she feels like she has pneumonia. History of Present Illness HPI narrative: States she has been sick for 2 weeks. She has a bad cough, producing yellow sputum. Cough
[2022-12-22 19:05] LABS: Coronavirus 19, PCR Not Detected (NotDetected); Influenza A, PCR Not Detected (NotDetected); Influenza B, PCR Not Detected (NotDetected); Microscopic, Urine URINE MICROSCOPIC (MICROSCOPIC)
[2022-12-22 19:07] LABS: Basophils # 0.1 K/mm3 (0-0.2); Basophils % 0.7 % (0.1-2.0); Eosinophils # 0.3 K/mm3 (0.0-0.4); Eosinophils % 2.1 % (0.1-12.0); Hematocrit 37.9 % (37.0-47.0); Hemoglobin 11.7 g/dL (12.2-16.2); Lymphocytes # 2.8 K/mm3 (0.7-4.5); Lymphocytes % 21.5 % (10-50); Mean Corpuscular HGB Conc 30.9 g/dL (31.8-35.4); Mean Corpuscular Hemoglobin 27.9 pg (27.0-31.2); Mean Corpuscular Volume 90.4 fl (81-99); Mean Platelet Volume 8.6 fl (7.4-10.4); Monocytes # 0.6 K/mm3 (0.1-1.0); Monocytes % 4.4 % (1.7-9.3); Neutrophils # 9.4 K/mm3 (1.8-7.8); Neutrophils % 71.5 % (37.0-80.0); Platelet Count 423 K/mm3 (142-424); Red Blood Count 4.19 M/mm3 (4.20-5.40); Red Cell Distribution Width 15.2 % (11.5-17.5); White Blood Count 13.2 K/mm3 (4.8-10.8)
--- NOTE | 2022-12-22 19:08 | PC.NURSE ---
Dr. Patel at BS speaking with pt
--- NOTE | 2022-12-22 19:09 | PC.NURSE ---
RAD at for CXR
[2022-12-22 19:10] LABS: Appearance,Urine CLEAR (Clear); Bilirubin,Urine Negative (Negative); Blood, Urine Negative (Negative); Color,Urine YELLOW (Yellow); Glucose,Urine (UA) Negative (Negative); Ketones,Urine Negative (Negative); Leukocyte Esterase,Urine Negative (Negative); Nitrate,Urine Negative (Negative); PH,Urine 6.5 (5.0-8.5); Protein,Urine Negative (Negative); Urobilinogen,Urine 0.2 EU/dl (0.2)
[2022-12-22 19:13] LABS: Alanine Aminotransferase 37 U/L (12-78); Albumin Level 3.8 g/dl (3.5-5.0); Albumin/Globulin Ratio 1.3 (1.1-1.8); Alkaline Phosphatase 150 U/L (38-126); Anion Gap 10.7 mEq/L (5-15); Aspartate Amino Transferase 33 U/L (14-36); Bilirubin,Total 0.4 mg/dl (0.2-1.3); Blood Urea Nitrogen 16 mg/dl (7-17); Calcium 8.1 mg/dl (8.4-10.2); Carbon Dioxide 29 mmol/L (22.0-30.0); Chloride 101 mmol/L (98-107); Creatinine Clearance Estimated 100 mL/min (50-200); Estimated Glomerular Filt Rate 63 ml/min (>60); GFR (African American) 77 ML/MIN (>60); Globulin 2.9 g/dL (1.3-3.2); Glucose 136 mg/dl (74-100); Lactic Acid 1.6 mmol/L (0.7-2.1); Potassium 3.7 mmoL/L (3.5-5.1); Sodium 137 mmol/L (136-145); Total Protein,Serum 6.7 g/dl (6.3-8.2)
[2022-12-22 19:15] LABS: Bacteria,Urine Trace /lpf; Squamous Epithelial Cell,Urine Occasional #/hpf (0-5); WBC,Urine Occasional #/hpf (0-3)
--- NOTE | 2022-12-22 19:18 | PC.NURSE ---
Pt requested something for pain and nausea. RN notified.
[2022-12-22 19:30] VITALS: BP 147/77; PULSE 76; RESP 20; O2SAT 96
[2022-12-22 20:01] VITALS: BP 122/68; PULSE 75; RESP 18; O2SAT 97
[2022-12-22 20:51] VITALS: BP 119/78; PULSE 74; RESP 18; TEMP 37.1; O2SAT 96
--- NOTE | 2022-12-22 20:56 | PC.NURSE ---
Pt ambulatory to bathroom at this time.
== END 2022-12-22 21:22 | disposition home or self-care (01) ==
PROVIDERS: Emergency Provider Emergency Medicine; PCP Family Medicine
DX: J20.9 Acute bronchitis, unspecified (principal); I20.0 Unstable angina; Z20.822 Contact with and (suspected) exposure to COVID-19
CPT/HCPCS: 71045; 80053; 81001; 83605; 85025; 87040; 96361; 96374; 96375; 99285; C9803; J0456; J1642; J2405; U0003; U0005

== ENCOUNTER → 2022-12-27 15:20 | Outpatient (CLI) | payer MEDICARE, MEDICAID, SELFPAY ==
[2022-12-27 15:23] LABS: Microalbumin < 6.000 mg/L (0-16.7)
[2022-12-27 16:42] LABS: Creatinine,Urine Random 68 mg/dL (Not Estab.)
== END ==
PROVIDERS: PCP Family Medicine; Visit Provider Family Medicine
DX: E11.9 Type 2 diabetes mellitus without complications (principal); Z79.84 Long term (current) use of oral hypoglycemic drugs
CPT/HCPCS: 82043; 82570

== ENCOUNTER 2023-02-04 13:00 | Day surgery (SDC) | payer MEDICARE, MEDICAID, SELFPAY ==
[2023-02-04 13:18] VITALS: BP 143/90; PULSE 91; RESP 18; TEMP 36.6; O2SAT 90; BMI 38.7
[2023-02-04 13:32] VITALS: BP 144/92; PULSE 97; RESP 18; O2SAT 97
[2023-02-04 13:44] VITALS: BP 118/77; PULSE 87; RESP 18; O2SAT 90
--- NOTE | 2023-02-04 13:44 | P.PCN_ITS ---
Procedure Date: 02/04/23 Time: 13:45 Anesthesiologist:: Josue Tristan CRNA Complications:: None Pre-procedure Diagnosis:: Degenerative disc disease lumbar spine multiple levels. Lumbar radiculopathy. Post-procedure Diagnosis:: Same. Indications for Procedure:: Patient is a very pleasant 62-year-old female that comes our clinic today for intrathecal pain pump interrogation and refill. She is currently being managed with bupivacaine 15 mg/mL at 2.75 mg/day. She is not asking for any increase today. She is doing very well with her current settings. She does not report any side effects or complications. Patient has severe point tenderness over the bilateral sacroiliac joints. She is currently waiting for sacroiliac joint stabilization. Procedure Details:: Details of the procedure explained to the patient. The patient was taken the procedure room placed in sitting position. The area over the pump was cleansed using chlorhexidine as a cleansing solution. The pump was interrogated. The pump was accessed with ease using a 22-gauge inch and half needle. 10 mL of solution was withdrawn from the pump and discarded appropriately. The pump was then filled with 20 cc of bupivacaine 15 mg/mL. The pump will remain at 2.75 mg /day Plan and Disposition:: Patient was discharged without incident.
[2023-02-04 14:23] LABS: Basophils # 0.1 K/mm3 (0-0.2); Basophils % 0.9 % (0.1-2.0); Eosinophils # 0.3 K/mm3 (0.0-0.4); Eosinophils % 3.3 % (0.1-12.0); Hematocrit 39.2 % (37.0-47.0); Hemoglobin 12.2 g/dL (12.2-16.2); Lymphocytes # 2.3 K/mm3 (0.7-4.5); Mean Corpuscular HGB Conc 31.2 g/dL (31.8-35.4); Mean Corpuscular Hemoglobin 28.6 pg (27.0-31.2); Mean Corpuscular Volume 91.4 fl (81-99); Mean Platelet Volume 8.5 fl (7.4-10.4); Monocytes # 0.4 K/mm3 (0.1-1.0); Monocytes % 3.9 % (1.7-9.3); Neutrophils # 6.6 K/mm3 (1.8-7.8); Neutrophils % 67.9 % (37.0-80.0); Platelet Count 365 K/mm3 (142-424); Red Blood Count 4.29 M/mm3 (4.20-5.40); Red Cell Distribution Width 14.9 % (11.5-17.5); White Blood Count 9.8 K/mm3 (4.8-10.8)
[2023-02-04 14:26] LABS: Hemoglobin A1C 7.1 % (4.0-6.0)
[2023-02-04 15:17] LABS: Anion Gap 13.6 mEq/L (5-15); Blood Urea Nitrogen 9 mg/dl (7-17); Calcium 8.6 mg/dl (8.4-10.2); Carbon Dioxide 29 mmol/L (22.0-30.0); Chloride 95 mmol/L (98-107); Creatinine Clearance Estimated 100 mL/min (50-200); Estimated Glomerular Filt Rate 85 ml/min (>60); GFR (African American) 103 ML/MIN (>60); Glucose 159 mg/dl (74-100); Potassium 3.6 mmoL/L (3.5-5.1); Sodium 134 mmol/L (136-145)
== END 2023-02-04 13:44 | disposition home or self-care (01) ==
PROVIDERS: Anesthesiology; PCP Family Medicine; Visit Provider Nurse Anesthetist, Certified Registered
DX: Z45.1 Encounter for adjustment and management of infusion pump (principal); M51.16 Intervertebral disc disorders with radiculopathy, lumbar region; E11.9 Type 2 diabetes mellitus without complications
CPT/HCPCS: 36415; 80048; 83036; 85025; 95991

== ENCOUNTER 2023-02-07 08:12 | Day surgery (SDC) | payer MEDICARE, MEDICAID, SELFPAY ==
[2023-02-07 08:42] VITALS: BP 132/81; PULSE 91; RESP 18; TEMP 36.3; O2SAT 99; BMI 38.7
--- NOTE | 2023-02-07 11:35 | P.PN_ITS ---
[facility] Disclaimer: The information contained in this section may have been updated after the patient was seen, as this information can be updated by other users. Medical History (Updated 02/07/23 @ 08:42 by Alan Jaramillo RN) Anxiety and depression COPD (chronic obstructive pulmonary disease) Diabetes Dyspnea HLD (hyperlipidemia) Typical angina Unstable angina Surgical History (Updated 02/07/23 @ 08:40 by Alan Jaramillo RN) History of biliary duct stent placement History of cholecystectomy History of hysterectomy Family History (Updated 02/07/23 @ 08:41 by Alan Jaramillo RN) Other Family history of cancer Family history of diabetes mellitus Social History (Updated 02/07/23 @ 08:41 by Alan Jaramillo RN) Smoking Status: Former smoker pack-years: 40 second hand exposure: No alcohol intake: never counseling provided: none substance use type: marijuana and crack/cocaine current occupational status: retired and other Travel in the last 8 weeks: None household members: spouse housing: house number of children: 2 current occupational exposures/hazards: No caffeine: Yes [facility] Anesthesia Checklist Patient Identification Patient Identification: Arm Band and Verbal (Name & ) Structural Data Admitted From: Home Planned Operative Procedure/s: Right Sascroilliac Joint Stabilization Consent for Planned Operative Procedure(s) Verified: Yes Verified Documents: Surgical Consent NPO Status Verified Time NPO: 00:00 Chart Verification Results Verified: CBC Additional verifications Anesthesia Reactions: No Hx Blood Transfusions: No Blood Transfusion Reaction: No Airway Assessment C-Spine Mobility Assessed: Yes TMJ Mobility Assessed: Yes Neurological Assessment Level of Consciousness: Awake, Alert and Appropriate Hx Seizures: No Anesthesia Plan Anesthesia Risk discussed: Yes ASA Class: III Anesthesia Type: MAC
[2023-02-07 12:04] VITALS: TEMP 43
--- NOTE | 2023-02-07 12:50 | EXP.OP.NOTE ---
Date of procedure: 02/07/23 Pre-op Diagnosis:: Sacroiliitis Post-op Diagnosis:: Same Procedure performed:: Right SI joint fusion Surgeon:: Bakari Emmanuel MD THEATRICAL TROUPER:: Mark Concepcion Anesthesia: MAC Estimated blood loss (mL): 5 Clinical Note:: The patient is a pleasant 62-year-old white female who we are treating for chronic sacroiliitis. She does have an intrathecal pain pump in place. She is doing well with her pump. She does get significant relief from injections however they only last 2 weeks. She has had 2 significant successful diagnostic blocks. She presents for right SI joint fusion with a transloc system today Operative findings:: none Operative note:: Informed consent was obtained and the risk and benefits of the procedure were explained to the patient. The patient was taken to the operating room and placed prone on the procedure table. She was prepped and draped in sterile fashion. A sacral outlet view of the sacrum was obtained. The PSIS was palpated and marked off. The lines were drawn on the skin and aligned overlying the S1 and S2 neural foramen. An approximate 1 cm incision was made just lateral to the PSIS between the S1 and S2 markings. A Jamshidi needle was placed through the incision in a cranial to caudal and lateral to the medial trajectory using a mallet under intermittent fluoroscopy to a stop depth. Trocar depth was confirmed under a sacral inlet view to a depth that did not breach the anterior sacral cortex. The guidewire was placed through the trocar and the needle removed over the wire. The ilium and sacral cortex were drilled and decorticated under live fluoroscopy to the 40 mm stop depth with no advancement of the guidewire noted. A 50 mm length translock screw was selected. The selected screw implant was placed onto the pile driver operator helper and screwed into the created channel until it was flush with the ilium transfixing and compressing the joint. Next a second trancelike screw implant was placed in a similar fashion approximately 8 to 10 mm inferior to the first implant. We used a 40 mm implant for the second screw. The incision was irrigated and subcutaneous tissue was closed with 2-0 Vicryl followed by 4-0 nylon. The patient tolerated the procedure well with no complications. He was taken recovery in stable condition. Patient was discharged home neurologic intact with good relief of pain symptoms. He was discharged with Bactrim DS twice a day for 5 days. Plan and disposition: We will follow-up with this patient in 1 week for wound check and in 2 weeks for suture removal. If she has any problems or questions she is to call us back in the pain clinic. Condition: stable Disposition: PACU Complications:: None
[2023-02-07 13:00] VITALS: BP 92/51; PULSE 92; RESP 16; TEMP 36.3; O2SAT 92
[2023-02-07 13:15] VITALS: BP 103/71; PULSE 89; RESP 16; O2SAT 93
[2023-02-07 13:30] VITALS: BP 101/65; PULSE 87; RESP 16; O2SAT 93
== END 2023-02-07 13:30 | disposition home or self-care (01) ==
PROVIDERS: PCP Family Medicine; Visit Provider Anesthesiology
DX: M46.1 Sacroiliitis, not elsewhere classified (principal); Z97.8 Presence of other specified devices
CPT/HCPCS: 27279; 96374; C1713; J1642; J2405

== ENCOUNTER 2023-04-01 14:00 | Day surgery (SDC) | payer MEDICARE, MEDICAID, SELFPAY ==
[2023-04-01 14:19] VITALS: BP 120/63; PULSE 84; RESP 18; TEMP 36.9; O2SAT 97; BMI 38.7
[2023-04-01 14:32] VITALS: BP 142/92; PULSE 78; RESP 20; O2SAT 95
--- NOTE | 2023-04-01 14:37 | EXP.PAIN.PRO ---
Procedure Date: 04/01/23 Time: 14:30 Anesthesiologist:: Josue Tristan CRNA Complications:: None Pre-procedure Diagnosis:: Degenerative disc disease lumbar spine multilevels. Lumbar radiculopathy Post-procedure Diagnosis:: Same. Indications for Procedure:: Patient is a very pleasant 62-year-old female comes our clinic today for intrathecal pain pump interrogation refill. Patient currently being managed with bupivacaine 15 mg/mL at 2.75 mg/day. Patient not complaining of any side effects or complications with the current intrathecal pain pump management. However, patient not feeling well today overall. She describes general malaise, nausea, vomiting. Patient has COPD as well as chronic pancreatitis. We have advised the patient to go to the emergency room when leaving the clinic today for evaluation and treatment. Procedure Details:: Details of the procedure explained the patient. Patient taken procedure room placed in the sitting position. The over the pump was cleansed using chlorhexidine as a cleansing solution. The pump was interrogated. The pump was accessed with ease using a 22-gauge inch and half needle. 8.2 mL of solution was withdrawn and discarded appropriately. The pump was then filled with 20 cc of bupivacaine 15 mg/mL. The rate will continue at 2.75 mg/day. Patient tolerated procedure without difficulty. No complications. Plan and Disposition:: Patient was discharged without incident.
[2023-04-01 14:42] VITALS: BP 101/78; PULSE 80; RESP 18; O2SAT 94
== END 2023-04-01 14:42 | disposition home or self-care (01) ==
PROVIDERS: PCP Family Medicine; Visit Provider Nurse Anesthetist, Certified Registered
DX: Z45.1 Encounter for adjustment and management of infusion pump (principal); M51.16 Intervertebral disc disorders with radiculopathy, lumbar region
CPT/HCPCS: 95991

== ENCOUNTER 2023-06-09 01:35 | Emergency (ER) | payer MEDICARE, SELFPAY ==
[2023-06-09] VITALS (13 sets, daily range): BP systolic 76–126; BP diastolic 43–76; PULSE 72–94; RESP 14–20; TEMP 36.7–36.8; O2SAT 92–97; BMI 38.2
--- NOTE | 2023-06-09 01:47 | CT_ITS ---
PROCEDURE INFORMATION: Exam: CT Abdomen And Pelvis Without Contrast Exam date and time: 06/09/2023 2:40 AM Age: 62 years old Clinical indication: Abdominal pain; Additional info: N/v/d abd pain TECHNIQUE: Imaging protocol: Computed tomography of the abdomen and pelvis without contrast. Radiation optimization: All CT scans at this facility use at least one of these dose optimization techniques: automated exposure control; mA and/or kV adjustment per patient size (includes targeted exams where dose is matched to clinical indication); or iterative reconstruction. REPORTING DATA: Count of CT and Cardiac NM exams in prior 12 months: This patient has received 2 known CTs and 0 known cardiac nuclear medicine studies in the 12 months prior to the current study. COMPARISON: CT ABDOMEN PELVIS WO CON 09/14/2022 3:53 AM FINDINGS: Tubes, catheters and devices: Neurostimulator generator pack within the superficial fat over the right lumbar region. Lungs: Lung bases are clear. Pleural spaces: No pleural effusion. Heart: The visualized heart is normal. No pericardial effusion. Coronary arteries: Mild burden of coronary artery calcifications. Liver: The liver is enlarged with diffusely decreased attenuation. Gallbladder and bile ducts: The gallbladder is absent. No intra or extrahepatic biliary ductal dilation. Pancreas: The pancreas is unremarkable. Spleen: The spleen is unremarkable. Adrenal glands: The adrenal glands are normal. Kidneys and ureters: No renal stones. The kidneys have non-contrast appearance without hydronephrosis. Simple appearing cysts within the right kidney interpolar region. The ureters have normal course and caliber without stone. Stomach and bowel: The stomach is normal. The small bowel has normal course and caliber. The large bowel has normal course and caliber with scattered colonic diverticula. No significant pericolonic inflammation. Appendix: No evidence of appendicitis. Intraperitoneal space: No significant peritoneal free fluid. No free peritoneal air. Vasculature: No aortic aneurysm. Mild calcific atherosclerosis of the aorta. Lymph nodes: Unremarkable. No enlarged lymph nodes. Urinary bladder: The bladder is normal without focal wall thickening. Reproductive: The uterus is absent. No adnexal cysts or masses are identified. Bones/joints: Multilevel degenerative type changes of the spine. No acute osseous abnormality. Patient is status post right SI joint fusion. Soft tissues: There is a small fat-containing umbilical hernia. Otherwise, the superficial soft tissues are unremarkable. IMPRESSION: 1. No acute intra-abdominal/pelvic abnormality. 2. Hepatic steatosis. 3. Other findings as above. COMMENTS: Consistent with the [employer]'s Incidental Findings Committee white paper (J Am Adela Radiol 2018): Any incidental renal lesion less than 1 cm or classified as too small to characterize, or any incidental cystic renal lesion characterized as simple-appearing, is likely benign. No follow-up imaging is recommended for these lesions per consensus recommendations based on imaging criteria.
[2023-06-09 02:19] LABS: Basophils % 0.4 % (0.1-2.0); Eosinophils # 0.3 K/mm3 (0.0-0.4); Eosinophils % 2.7 % (0.1-12.0); Hematocrit 34.3 % (37.0-47.0); Hemoglobin 10.3 g/dL (12.2-16.2); Lymphocytes # 2.8 K/mm3 (0.7-4.5); Lymphocytes % 27.7 % (10-50); Mean Corpuscular HGB Conc 29.9 g/dL (31.8-35.4); Mean Corpuscular Hemoglobin 25.4 pg (27.0-31.2); Mean Corpuscular Volume 84.9 fl (81-99); Mean Platelet Volume 8.6 fl (7.4-10.4); Monocytes # 0.4 K/mm3 (0.1-1.0); Monocytes % 4.3 % (1.7-9.3); Neutrophils # 6.5 K/mm3 (1.8-7.8); Neutrophils % 64.9 % (37.0-80.0); Platelet Count 366 K/mm3 (142-424); Red Blood Count 4.04 M/mm3 (4.20-5.40); Red Cell Distribution Width 18.6 % (11.5-17.5)
[2023-06-09 02:27] LABS: Alanine Aminotransferase 45 U/L (12-78); Albumin Level 3.9 g/dl (3.5-5.0); Albumin/Globulin Ratio 1.1 (1.1-1.8); Alkaline Phosphatase 160 U/L (38-126); Amylase 82 U/L (30-110); Aspartate Amino Transferase 49 U/L (14-36); Bilirubin,Total 0.4 mg/dl (0.2-1.3); Blood Urea Nitrogen 9 mg/dl (7-17); Calcium 8.5 mg/dl (8.4-10.2); Carbon Dioxide 20 mmol/L (22.0-30.0); Chloride 109 mmol/L (98-107); Creatinine Clearance Estimated 90 mL/min (50-200); Estimated Glomerular Filt Rate 50 ml/min (>60); GFR (African American) 61 ML/MIN (>60); Globulin 3.4 g/dL (1.3-3.2); Glucose 132 mg/dl (74-100); Lactic Acid 2.1 mmol/L (0.7-2.1); Lipase 134 U/L (23-300); Sodium 139 mmol/L (136-145); Total Protein,Serum 7.3 g/dl (6.3-8.2)
--- NOTE | 2023-06-09 02:31 | PC.NURSE ---
pt called out requesting pain meds. educated pt that narcotics are contraindicate to give with blood pressure being 80s/50s. pt states the machine must be incorrect. I then took a manual blood pressure and received reading of 85/50. Informed pt that we would reassess after fluid bolus has infused.
[2023-06-09 02:44] LABS: C-Reactive Protein 7.4 mg/L (0-4)
[2023-06-09 02:46] LABS: Procalcitonin 0.072 ng/mL (0.0-2.0)
[2023-06-09 02:48] LABS: Erythrocyte Sedimentation Rate 30 mm/hr (0-30)
--- NOTE | 2023-06-09 02:55 | PC.NURSE ---
pt returned from ct scan. automobile inspector informed that iv blew after administering iv contrast. Iv was pulled and cold compress applied to site per protocol.
--- NOTE | 2023-06-09 03:28 | HMH.EDABDPAI ---
Discharge Plan Disposition Patient Disposition: Home, Self-Care Chief Complaint: Abdominal Pain Prescriptions Prescriptions: No Action duloxetine 60 mg capsule,delayed release(DR/EC) 60 mg PO BID Qty: 180 1RF omeprazole 40 mg capsule,delayed release(DR/EC) 40 mg PO DAILY alprazolam 1 mg tablet 1 mg PO TIDP PRN (Reason: Anxiety) Qty: 90 3RF metoprolol succinate 25 mg tablet extended release 24 hr 25 mg PO DAILY Qty: 90 3RF pantoprazole 20 mg tablet,delayed release (DR/EC) 20 mg PO BID Qty: 180 3RF nitroglycerin 0.4 mg tablet, sublingual 0.4 mg sublingual Q5M PRN (Reason: chest pain) Qty: 20 0RF Rx Instructions: do not exceed 3 doses per episode ticagrelor 90 mg tablet 90 mg PO BID Qty: 60 5RF albuterol sulfate 90 mcg/actuation HFA aerosol inhaler 2 inh IH Q4HP PRN (Reason: Wheezing) Qty: 8.5 0RF atorvastatin 40 mg tablet 40 mg PO HS Qty: 90 3RF lisinopril 20 mg tablet 20 mg PO DAILY montelukast 10 mg tablet See Rx Instructions .ROUTE .COMPLEX Rx Instructions: take 1 tablet by mouth at bedtime for Allergy symptoms gabapentin 300 MG capsule 300 mg PO BID Qty: 60 2RF levothyroxine 100 mcg tablet 100 mcg PO DAILY ropinirole 0.25 mg tablet 0.25 mg PO HS Patient Comments: take 1 tablet by mouth at bedtime nightly for rls; administer 1-3 hours before bedtime potassium chloride 10 mEq tablet extended release 10 meq PO DAILY trazodone 100 mg tablet See Rx Instructions .ROUTE .COMPLEX Rx Instructions: take 1 tablet by mouth at bedtime nightly for sleep metformin 500 mg tablet extended release 24 hr See Rx Instructions .ROUTE .COMPLEX Rx Instructions: TAKE ONE TABLET BY MOUTH TWICE DAILY Xarelto 20 mg tablet 20 mg PO DAILY Rx Instructions: must administer with evening meal isosorbide mononitrate 30 MG tablet extended release 24 hr 30 mg PO DAILY albuterol sulfate 2.5 mg /3 mL (0.083 %) solution for nebulization 2.5 mg inhalation Q6H promethazine 25 mg tablet See Rx Instructions .ROUTE .COMPLEX Rx Instructions: take 1 tablet by mouth every 6 hours As Needed for Nausea Premarin 0.3 mg tablet See Rx Instructions .ROUTE .COMPLEX Rx Instructions: take 1 tablet daily for hormone replacement therapy quetiapine 50 mg tablet See Rx Instructions .ROUTE .COMPLEX Rx Instructions: take 1 tablet by mouth at bedtime nightly for sleep ropinirole 0.25 mg tablet 0.25 mg PO HS Qty: 30 2RF Rx Instructions: administer 1-3 hours before bedtime Referrals Follow up/Referrals: Juan C Colón MD [Primary Care Provider] - See instructions Clinical Impressions Clinical Impression: Abdominal pain Instructions Patient Instructions: DI for Acute Abdominal Pain Discharge ED Provider: Saray (ED)Sea Abdominal Pain HPI General Chief Complaint: Abdominal Pain Stated Complaint: possible dehydration, diarrhea X 3 days Time Seen by Provider: 06/09/23 02:35 Mode of Arrival: Wheelchair Source of Information: Patient and Medical Record Limitations: No Limitations Description of Symptoms (Recalled from ER Triage Doc. by RN): pt c/o increasing n/v/d, abd pain x 3 days. pt is concerned that she has pancreatitis again. History of Present Illness HPI narrative: pt with known chronic abd pain and has acute exacerbation - no fever complaint: abdominal pain Onset (ago): day(s) Consistency: intermittent Location: diffuse Severity: similar to previous episodes Quality: aching Associated symptoms: denies other symptoms Related Data Home Medications Medication Instructions Recorded Confirmed isosorbide mononitrate 30 mg 30 mg PO DAILY High blood pressure 10/24/21 06/09/23 tablet,extended release 24 hr lisinopril 20 mg tablet 20 mg PO DAILY . 02/04/23 06/09/23 montelukast 10 mg tablet See Rx Instructions .Route 02/04/23
--- NOTE | 2023-06-09 03:37 | PC.NURSE ---
Pt called out asking for narcotic pain medication again. She reports my pressure is finally over 100 does he know the pain I'm in? . MD aware. New order for 2nd NS bolus.
--- NOTE | 2023-06-09 05:03 | PC.NURSE ---
MD and nurse at bedside. new order for MS 2mg and phenergan 25mg iv 1x doses
== END 2023-06-09 05:24 | disposition home or self-care (01) ==
PROVIDERS: Emergency Provider Emergency Medicine; PCP Family Medicine
DX: R11.2 Nausea with vomiting, unspecified (principal); R10.9 Unspecified abdominal pain; R19.7 Diarrhea, unspecified; F41.9 Anxiety disorder, unspecified; F32.A Depression, unspecified; J44.9 Chronic obstructive pulmonary disease, unspecified; E11.9 Type 2 diabetes mellitus without complications; E78.5 Hyperlipidemia, unspecified; I20.0 Unstable angina; F17.210 Nicotine dependence, cigarettes, uncomplicated
CPT/HCPCS: 74176; 80053; 82150; 83605; 83690; 84145; 85025; 85651; 86140; 96361; 96374; 96375; 99285; J0131; J2405

== ENCOUNTER 2023-06-24 14:23 | Day surgery (SDC) | payer MEDICARE, SELFPAY ==
--- NOTE | 2023-06-24 14:28 | EXP.PAIN.PRO ---
Procedure Date: 06/24/23 Time: 14:30 Anesthesiologist:: Josue Tristan CRNA Complications:: None Pre-procedure Diagnosis:: Degenerative disease lumbar spine multilevels. Lumbar radiculopathy. Post-procedure Diagnosis:: Same. Indications for Procedure:: Patient is a very pleasant 62-year-old female comes our clinic today for intrathecal pain pump interrogation refill. Patient is currently being managed with bupivacaine 15 mg/mL at a rate of 2.75 mg/day. Patient reporting today significant restless leg syndrome at night. Patient has been taking Requip 0.2 mg nightly. Also, patient taking gabapentin 300 mg 1 p.o. twice daily. I suggest to the patient she increase the gabapentin to 600 mg twice daily. She will follow-up with us in the office in 2 weeks for update on restless leg symptoms. Procedure Details:: Details of the procedure with the explained to the patient. Patient taken to procedure room placed in the sitting position on the fluoroscopy table. The area over the pump was cleaned using chlorhexidine as a cleansing solution. The pump was interrogated. The pump was accessed with ease using an inch and half 22-gauge needle. 3.5 mL of solution was withdrawn and discarded appropriately. The pump was then filled with bupivacaine 15 mg/mL. Patient tolerated procedure without difficulty. There are no complications. Plan and Disposition:: Patient was discharged without incident.
[2023-06-24 14:29] VITALS: BP 141/90; PULSE 72; RESP 20; TEMP 36.2; O2SAT 94; BMI 37.9
[2023-06-24 14:45] VITALS: BP 110/74; PULSE 74; RESP 18; O2SAT 98
== END 2023-06-24 14:49 | disposition home or self-care (01) ==
PROVIDERS: PCP Family Medicine; Visit Provider Nurse Anesthetist, Certified Registered
DX: M51.16 Intervertebral disc disorders with radiculopathy, lumbar region (principal); G25.81 Restless legs syndrome
CPT/HCPCS: 95991

== ENCOUNTER 2023-06-30 14:43 | Emergency (ER) | payer MEDICARE, SELFPAY ==
[2023-06-30 14:52] VITALS: BP 110/53; PULSE 85; RESP 20; TEMP 36.8; O2SAT 97; BMI 37.9
--- NOTE | 2023-06-30 15:15 | XR_ITS ---
FINAL REPORT CLINICAL HISTORY: fall, pain, swelling- mid left foot pain COMPARISON: None FINDINGS: LEFT FOOT: Three views of the left foot were obtained. There is no acute fracture or dislocation. The joint spaces are intact. There is no soft tissue abnormality. IMPRESSION: No acute bony abnormality. Reviewed, Interpreted and Dictated by Jorge Rodriguez III, MD Transcribed by Felicita Lopze Authenticated and [facility]
--- NOTE | 2023-06-30 15:16 | HMH.EDGENADL ---
Discharge Plan Disposition Patient Disposition: Home, Self-Care Prescriptions Prescriptions: No Action omeprazole 40 mg capsule,delayed release(DR/EC) 40 mg PO DAILY alprazolam 1 mg tablet 1 mg PO TIDP PRN (Reason: Anxiety) Qty: 90 3RF metoprolol succinate 25 mg tablet extended release 24 hr 25 mg PO DAILY Qty: 90 3RF pantoprazole 20 mg tablet,delayed release (DR/EC) 20 mg PO BID Qty: 180 3RF nitroglycerin 0.4 mg tablet, sublingual 0.4 mg sublingual Q5M PRN (Reason: chest pain) Qty: 20 0RF Rx Instructions: do not exceed 3 doses per episode ticagrelor 90 mg tablet 90 mg PO BID Qty: 60 5RF albuterol sulfate 90 mcg/actuation HFA aerosol inhaler 2 inh IH Q4HP PRN (Reason: Wheezing) Qty: 8.5 0RF atorvastatin 40 mg tablet 40 mg PO HS Qty: 90 3RF furosemide 40 mg tablet 20 mg PO DAILY Qty: 30 0RF lisinopril 20 mg tablet 20 mg PO DAILY montelukast 10 mg tablet See Rx Instructions .ROUTE .COMPLEX Rx Instructions: take 1 tablet by mouth at bedtime for Allergy symptoms gabapentin 300 MG capsule 300 mg PO BID Qty: 60 2RF levothyroxine 100 mcg tablet 100 mcg PO DAILY ropinirole 0.25 mg tablet 0.25 mg PO HS Patient Comments: take 1 tablet by mouth at bedtime nightly for rls; administer 1-3 hours before bedtime potassium chloride 10 mEq tablet extended release 10 meq PO DAILY trazodone 100 mg tablet See Rx Instructions .ROUTE .COMPLEX Rx Instructions: take 1 tablet by mouth at bedtime nightly for sleep metformin 500 mg tablet extended release 24 hr See Rx Instructions .ROUTE .COMPLEX Rx Instructions: TAKE ONE TABLET BY MOUTH TWICE DAILY Xarelto 20 mg tablet 20 mg PO DAILY Rx Instructions: must administer with evening meal isosorbide mononitrate 30 MG tablet extended release 24 hr 30 mg PO DAILY albuterol sulfate 2.5 mg /3 mL (0.083 %) solution for nebulization 2.5 mg inhalation Q6H promethazine 25 mg tablet See Rx Instructions .ROUTE .COMPLEX Rx Instructions: take 1 tablet by mouth every 6 hours As Needed for Nausea Premarin 0.3 mg tablet See Rx Instructions .ROUTE .COMPLEX Rx Instructions: take 1 tablet daily for hormone replacement therapy ropinirole 0.25 mg tablet 0.25 mg PO HS Qty: 30 2RF Rx Instructions: administer 1-3 hours before bedtime furosemide 20 mg tablet 40 mg PO DAILY duloxetine 60 mg capsule,delayed release(DR/EC) See Rx Instructions .ROUTE .COMPLEX Rx Instructions: take 1 capsule by mouth twice a day for Depression quetiapine 50 mg tablet See Rx Instructions .ROUTE .COMPLEX Rx Instructions: take 1 tablet by mouth at bedtime nightly for sleep Referrals Follow up/Referrals: Juan C Colón MD [Primary Care Provider] - See instructions Activity Restrictions/Add. Instructions Additional Instructions/Restrictions: There is no evidence of any fracture or dislocation of your foot. Formal radiology read is still pending we will call you if there is a different interpretation. You may take [id number] pain medicine as discussed and bear weight as tolerated. You may follow-up with orthopedic surgery if not improving in 1 to 2 weeks. Clinical Impressions Clinical Impression: Minor head injury, Contusion of foot, left Discharge ED Provider: José Luis Hadley General Adult HPI General Chief complaint: PAIN Stated complaint: AO 06/28 fall, left foot pain Time Seen by Provider: 06/30/23 15:01 Mode of Arrival: Ambulatory Source of Information: Patient Limitations: No Limitations Description of Symptoms (Recalled from ER Triage Doc. by RN): pt to ed c/o left foot pain and intermittent left sided nasal bleed. pt states she fell into the fridge on friday. pt denies LOC. History of Present Illness HPI narrative: Patient is a 62-year-old female with history of atrial fibrillation s
--- NOTE | 2023-06-30 15:18 | PC.NURSE ---
NURSE HRON ROUNDED ON PT
[2023-06-30 16:02] VITALS: BP 112/87; PULSE 78; O2SAT 97
[2023-06-30 16:42] VITALS: BP 115/82; PULSE 74; RESP 20; TEMP 36.8; O2SAT 98
== END 2023-06-30 16:43 | disposition home or self-care (01) ==
PROVIDERS: Emergency Provider Emergency Medicine; PCP Family Medicine
DX: S09.8XXA Other specified injuries of head, initial encounter (principal); S90.32XA Contusion of left foot, initial encounter; R04.0 Epistaxis; I48.91 Unspecified atrial fibrillation; J44.9 Chronic obstructive pulmonary disease, unspecified; F41.9 Anxiety disorder, unspecified; F32.A Depression, unspecified; E11.9 Type 2 diabetes mellitus without complications; I20.9 Angina pectoris, unspecified; E78.5 Hyperlipidemia, unspecified; Z87.891 Personal history of nicotine dependence; W01.190A Fall on same level from slipping, tripping and stumbling with subsequent striking against furniture, initial encounter
CPT/HCPCS: 73630; 99283

== ENCOUNTER 2023-07-13 04:22 | Inpatient (IN) | payer MEDICARE, SELFPAY ==
[2023-07-13] VITALS (13 sets, daily range): BP systolic 78–120; BP diastolic 38–63; PULSE 61–101; RESP 16–22; TEMP 36.2–36.7; O2SAT 92–98; BMI 47.6; BMI 45.1
--- NOTE | 2023-07-13 04:25 | ECG_ITS ---
APPROVED REPORT Exam: Resting ECG HR:70 bpm ECG Measurements Heart Rate 70 AXES NH 170 P 27 QRSd 90 QRS 64 QT 414 T 90 QTc 436 Conclusion SINUS RHYTHM NONSPECIFIC T-WAVE ABNORMALITY BORDERLINE ECG UNCONFIRMED REPORT Electronically signed by : Oskar Eugene MD 07/14/2023 14:03:01
--- NOTE | 2023-07-13 05:01 | HMH.EDGENADL ---
Discharge Plan Disposition Patient Disposition: Admitted Condition: Good Chief Complaint: Chest Pain Prescriptions Prescriptions: No Action omeprazole 40 mg capsule,delayed release(DR/EC) 40 mg PO DAILY alprazolam 1 mg tablet 1 mg PO TIDP PRN (Reason: Anxiety) Qty: 90 3RF metoprolol succinate 25 mg tablet extended release 24 hr 25 mg PO DAILY Qty: 90 3RF pantoprazole 20 mg tablet,delayed release (DR/EC) 20 mg PO BID Qty: 180 3RF nitroglycerin 0.4 mg tablet, sublingual 0.4 mg sublingual Q5M PRN (Reason: chest pain) Qty: 20 0RF Rx Instructions: do not exceed 3 doses per episode albuterol sulfate 90 mcg/actuation HFA aerosol inhaler 2 inh IH Q4HP PRN (Reason: Wheezing) Qty: 8.5 0RF atorvastatin 40 mg tablet 40 mg PO HS Qty: 90 3RF furosemide 40 mg tablet 20 mg PO DAILY Qty: 30 0RF Brilinta 90 mg tablet See Rx Instructions .ROUTE .COMPLEX Qty: 60 5RF Dose Instruction: take 1 tablet by mouth twice a day for Heart disease/blood thinner Rx Instructions: take 1 tablet by mouth twice a day for Heart disease/blood thinner spironolactone [Aldactone] 25 mg tablet 25 mg PO DAILY Qty: 30 2RF lisinopril 20 mg tablet 20 mg PO DAILY montelukast 10 mg tablet See Rx Instructions .ROUTE .COMPLEX Rx Instructions: take 1 tablet by mouth at bedtime for Allergy symptoms levothyroxine 100 mcg tablet 100 mcg PO DAILY ropinirole 0.25 mg tablet 0.25 mg PO HS Patient Comments: take 1 tablet by mouth at bedtime nightly for rls; administer 1-3 hours before bedtime potassium chloride 10 mEq tablet extended release 10 meq PO DAILY trazodone 100 mg tablet See Rx Instructions .ROUTE .COMPLEX Rx Instructions: take 1 tablet by mouth at bedtime nightly for sleep metformin 500 mg tablet extended release 24 hr See Rx Instructions .ROUTE .COMPLEX Rx Instructions: TAKE ONE TABLET BY MOUTH TWICE DAILY Xarelto 20 mg tablet 20 mg PO DAILY Rx Instructions: must administer with evening meal isosorbide mononitrate 30 MG tablet extended release 24 hr 30 mg PO DAILY albuterol sulfate 2.5 mg /3 mL (0.083 %) solution for nebulization 2.5 mg inhalation Q6H promethazine 25 mg tablet See Rx Instructions .ROUTE .COMPLEX Rx Instructions: take 1 tablet by mouth every 6 hours As Needed for Nausea Premarin 0.3 mg tablet See Rx Instructions .ROUTE .COMPLEX Rx Instructions: take 1 tablet daily for hormone replacement therapy ropinirole 0.25 mg tablet 0.25 mg PO HS Qty: 30 2RF Rx Instructions: administer 1-3 hours before bedtime furosemide 20 mg tablet 40 mg PO DAILY duloxetine 60 mg capsule,delayed release(DR/EC) See Rx Instructions .ROUTE .COMPLEX Rx Instructions: take 1 capsule by mouth twice a day for Depression quetiapine 50 mg tablet See Rx Instructions .ROUTE .COMPLEX Rx Instructions: take 1 tablet by mouth at bedtime nightly for sleep gabapentin 300 MG capsule 300 mg PO BID Qty: 60 2RF Referrals Follow up/Referrals: Juan C Colón MD [Primary Care Provider] - See instructions Clinical Impressions Clinical Impression: Pneumonia, ALYSE (acute kidney injury) Chest pain Qualifiers: Chest pain type: chest pain on breathing Qualified Code(s): R07.1 - Chest pain on breathing Discharge ED Provider: Tramaine Liu Adult [facility] General Chief complaint: Chest Pain Stated complaint: Chest Pain Time Seen by Provider: 07/13/23 04:33 Mode of Arrival: Family Vehicle Source of Information: Patient Limitations: No Limitations Description of Symptoms (Recalled from ER Triage Doc. by RN): presents with complaints of rib pain following a fall earlier this weekend. patient is alert and oriented x4. vss. emv 15. patient reports right and left side chest pain with movement and worried that she can't cough deep enou
[2023-07-13 05:08] LABS: Basophils # 0.1 K/mm3 (0-0.2); Basophils % 0.3 % (0.1-2.0); Eosinophils # 0.3 K/mm3 (0.0-0.4); Eosinophils % 1.7 % (0.1-12.0); Hematocrit 39.6 % (37.0-47.0); Hemoglobin 11.5 g/dL (12.2-16.2); Lymphocytes # 3.8 K/mm3 (0.7-4.5); Lymphocytes % 18.8 % (10-50); Mean Corpuscular HGB Conc 29.1 g/dL (31.8-35.4); Monocytes # 0.8 K/mm3 (0.1-1.0); Monocytes % 4.2 % (1.7-9.3); Neutrophils # 14.9 K/mm3 (1.8-7.8); Neutrophils % 74.9 % (37.0-80.0); Platelet Count 483 K/mm3 (142-424); Red Cell Distribution Width 17.6 % (11.5-17.5); White Blood Count 19.9 K/mm3 (4.8-10.8)
[2023-07-13 05:13] LABS: Alanine Aminotransferase 27 U/L (12-78); Albumin Level 4.5 g/dl (3.5-5.0); Alkaline Phosphatase 186 U/L (38-126); Anion Gap 20.2 mEq/L (5-15); Aspartate Amino Transferase 34 U/L (14-36); Bilirubin,Total 0.5 mg/dl (0.2-1.3); Blood Urea Nitrogen 16 mg/dl (7-17); Calcium 9.1 mg/dl (8.4-10.2); Carbon Dioxide 25 mmol/L (22.0-30.0); Chloride 99 mmol/L (98-107); Creatinine Clearance Estimated 25 mL/min (50-200); Estimated Glomerular Filt Rate 23 ml/min (>60); GFR (African American) 27 ML/MIN (>60); Globulin 4.3 g/dL (1.3-3.2); Glucose 211 mg/dl (74-100); Potassium 4.2 mmoL/L (3.5-5.1); Sodium 140 mmol/L (136-145); Total Protein,Serum 8.8 g/dl (6.3-8.2)
[2023-07-13 05:14] LABS: MANUAL DIFFERENTIAL MANUAL DIFFERENTIAL (MANUAL DIFF)
[2023-07-13 05:24] LABS: Troponin I 0.04 ng/ml (0.00-0.034)
[2023-07-13 05:49] LABS: Lymphocytes % 24 % (10-50); Monocytes % 1 % (2-9); Neutrophils % 75 % (42-76); Platelet Estimate Slight Increase; Total Cells Counted 100
[2023-07-13 05:50] LABS: RBC Morphology Normal
--- NOTE | 2023-07-13 05:52 | XR_ITS ---
PROCEDURE INFORMATION: Exam: XR Chest Exam date and time: 07/13/2023 5:57 AM Age: 62 years old Clinical indication: Shortness of breath; Additional info: Fall, worsening cp, SOB TECHNIQUE: Imaging protocol: Radiologic exam of the chest. Views: 2 views. COMPARISON: CR XR CHEST PORTABLE 12/22/2022 7:22 PM FINDINGS: Lungs: There is no focal pulmonary consolidation. Pleural spaces: Unremarkable. No pleural effusion. No pneumothorax. Heart/Mediastinum: Unremarkable. No cardiomegaly. Bones/joints: Several chronic right rib fractures are noted. Cervical fixation hardware is partially imaged. IMPRESSION: No definite acute cardiopulmonary disease.
[2023-07-13 06:30] LABS: D-Dimer 1.02 ug/mL (0.0-0.5)
--- NOTE | 2023-07-13 06:44 | PC.NURSE ---
MD talked to patients updating him on patient status being admitted. yeast supervisor notified of need for bed
--- NOTE | 2023-07-13 07:17 | EXP.HP ---
History of Present Illness *Admission Date: 07/13/23 *Reason for visit:: Chest pain *History of present illness: Ms. Arteaga is a 62-year-old female with extensive medical history including but not limited to CAD, hypertension, hyperlipidemia, COPD, uncontrolled NIDDM and obesity. Patient came to ER complaining of persistent chest pain that is just gotten worse over the past 2 weeks after falling twice at home. States she saw her pain management doctor who approved her to increase her gabapentin 2 to 3 weeks ago if needed for her leg pain. Since then she had a fall 2 weeks ago where she developed some chest pain after due to falling into furniture and sustained a sprained left ankle. She subsequently fell a week ago into a coffee table and has had persistent right-sided pain in her lower rib cage. Has been difficult for her to sleep and she is having pain with shortness of breath. Due to her worsening pain she came to the ER for evaluation. On work-up, patient is on her stable baseline 2-1/2 L oxygen requirement. White cell count was elevated to 19,000. Creatinine elevated to 2.2 (baseline 1.1). Tachypneic on initial arrival. Meeting septic shock criteria with elevated lactate of 4.0. Received 1 L IV fluid in the ER. Started on 1 g of ceftriaxone for pneumonia. Additionally noted to have mild elevation in troponin but no ischemic changes on EKG. Medicine consulted for admission. Arrival to the floor, patient is quite somnolent but will open eyes and answer questions. Per review it appears she received a dose of Flexeril in the ER. Blood pressure soft on arrival however not frankly hypotensive. Given additional liter of IV fluids. Significant other at bedside, helps answer questions. Patient denies any nausea, vomiting, confusion, headache, diarrhea, syncope. Denies any dysuria. Has been having a dry nonproductive cough for a few days. [facility] Disclaimer: The information contained in this section may have been updated after the patient was seen, as this information can be updated by other users. Medical History Anxiety and depression COPD (chronic obstructive pulmonary disease) Diabetes Dyspnea HLD (hyperlipidemia) Typical angina Unstable angina Surgical History History of biliary duct stent placement History of cholecystectomy History of hysterectomy Family History Family history of cancer Family history of diabetes mellitus Social History Smoking Status: Former smoker pack-years: 40 second hand exposure: No alcohol intake: never counseling provided: none substance use type: marijuana and crack/cocaine current occupational status: retired and other Travel in the last 8 weeks: None household members: spouse housing: house number of children: 2 current occupational exposures/hazards: No caffeine: Yes Review of Systems Review of Systems Review of systems (narrative): 14 point review of systems performed, pertinent positives and negatives as per HPI Meds Home Medications and Allergies Home Medications Medication Instructions Recorded Confirmed Type isosorbide mononitrate 30 mg 30 mg PO DAILY High blood pressure 10/24/21 07/13/23 History tablet,extended release 24 hr lisinopril 20 mg tablet 20 mg PO DAILY High Blood Pressure 02/04/23 07/13/23 History montelukast 10 mg tablet 10 mg PO PM Allergy Symptoms 02/04/23 07/13/23 History albuterol sulfate 2.5 mg/3 mL 2.5 mg inhalation Q6H Breathing 04/01/23 07/13/23 History (0.083 %) solution for nebulization Problems conjugated estrogens 0.3 mg tablet 0.3 mg PO DAILY Hormone Replacement 04/01/23 07/13/23 History (Premarin) alprazolam 1 mg tablet 1 mg PO TIDP PRN Anxiety #90 tabs 04/08/23 07/13/23 Rx omeprazole 40 mg capsule,delayed 40 mg
--- NOTE | 2023-07-13 08:25 | HMH.PHAINT1 ---
Pharmacy Intervention Comments: MEDICATION RECONCILIATION COMPLETED ON PATIENT USING EXTERNAL FILL HSITORY FROM PHARMACY, GEOFFREY REPORT, AND LIST FROM CARDIOLOGY OFFICE. -BOBBY BECERRAD
--- NOTE | 2023-07-13 08:40 | PC.NURSE ---
UPDATED DR NAIR ON PT'S B/P. LACTIC ORDER ENTERED, PT UP TO [facility] FLOOR AT THIS TIME. MD WILL ASSESS PT
--- NOTE | 2023-07-13 08:48 | PC.NURSE ---
pt arrived to floor by wheelchair at 0837
[2023-07-13 09:06] LABS: Troponin I 0.02 ng/ml (0.00-0.034)
[2023-07-13 09:34] LABS: ABG Base Excess -3.4 mmol/L (-2.4-2.3); ABG HCO3 23.6 mmhg (22.0-26.0); ABG Oxygen Saturation 93 % (90-100); ABG PH 7.26 mmol/L (7.35-7.45); ABG PO2 75.5 mmhg (80-100); ABG TCO2 25.3 mmhg (23-27); Oxygen 2 LPM %
[2023-07-13 09:35] LABS: ABG PCO2 53.7 mmhg (35.0-45.0); Source Right Brachial
[2023-07-13 10:07] LABS: Coronavirus 19, PCR Not Detected (NotDetected); Influenza A, PCR Not Detected (NotDetected); Influenza B, PCR Not Detected (NotDetected)
[2023-07-13 12:44] LABS: Reflex Lactic Add Lactic Reflex
[2023-07-13 16:56] LABS: POC Glucose,Bedside 118 (70-110)
[2023-07-13 16:56] LABS: POC Glucose,Bedside 116 (70-110)
--- NOTE | 2023-07-13 17:53 | PC.NURSE ---
NEW ADMIT THIS SHIFT. HYPOTENSIVE UPON ARRIVAL TO FLOOR. IV FLUIDS GIVEN PER MD FOR HYPOTENSION WITH GOOD EFFECTIVENESS. SHE IS REQUIRING 2.5 LNC FOR O2 SUPPORT. AMBULATING WITH ASSISTANCE TO RESTROOM. SPUTUM CUP AND INCENTIVE SPIROMETER AT BEDSIDE.
[2023-07-13 18:01] LABS: Lactic Acid Follow Up (RFLX 1) 2.4 mmol/L (0.7-2.1)
[2023-07-13 18:18] LABS: Chloride 96 mmol/L (98-107); Potassium 4.4 mmoL/L (3.5-5.1); Sodium 134 mmol/L (136-145)
[2023-07-13 18:21] LABS: Blood Urea Nitrogen 22 mg/dl (7-17); Calcium 8.3 mg/dl (8.4-10.2); Creatinine Clearance Estimated 16 mL/min (50-200); Estimated Glomerular Filt Rate 19 ml/min (>60); GFR (African American) 23 ML/MIN (>60); Glucose 174 mg/dl (74-100)
--- NOTE | 2023-07-13 18:30 | CT_ITS ---
PROCEDURE INFORMATION: Exam: CT Chest Without Contrast; Diagnostic Exam date and time: 07/13/2023 6:42 PM Age: 62 years old Clinical indication: Shortness of breath; Additional info: Dyspnea, chest wall pain TECHNIQUE: Imaging protocol: Diagnostic computed tomography of the chest without contrast. Radiation optimization: All CT scans at this facility use at least one of these dose optimization techniques: automated exposure control; mA and/or kV adjustment per patient size (includes targeted exams where dose is matched to clinical indication); or iterative reconstruction. REPORTING DATA: Count of CT and Cardiac NM exams in prior 12 months: This patient has received 2 known CTs and 0 known cardiac nuclear medicine studies in the 12 months prior to the current study. COMPARISON: CR XR CHEST 2V 07/13/2023 5:57 AM FINDINGS: Tubes, catheters and devices: There is a partially visualized implanted metallic device in the right back. Lungs: There is a right upper lobe calcified granuloma. There is a subpleural 1 cm right lower lobe nodule (image 39 series 2). There is a 4 mm subpleural right middle lobe nodule (image 41 series 2). There is a 6 mm right middle lobe nodule (image 47 series 2. There are scattered additional pulmonary nodules noted. There is some consolidation at the right lung base which is most likely atelectatic in nature. Pleural spaces: Unremarkable. No pneumothorax. No pleural effusion. Heart: Unremarkable. No cardiomegaly. No pericardial effusion. Coronary arteries: There is moderate coronary atherosclerotic disease/calcification. Lymph nodes: There are calcified mediastinal lymph nodes likely reflecting prior granulomatous disease. Vasculature: There is atherosclerotic disease of the visualized aorta and its major branch vessels. Liver: There is diffuse fatty infiltration throughout the liver. Gallbladder and bile ducts: The patient is status post cholecystectomy. Spleen: There are multiple calcifications in the spleen most likely reflects small granulomas. Bones/joints: There is partially visualized cervical spine surgical hardware. There is diffuse degenerative disease of the visualized osseous structures. There are numerous right posterior and posterolateral rib fractures. Soft tissues: Unremarkable. Other findings: There is moderate to severe emphysema. IMPRESSION: 1. Hepatic steatosis. 2. Advanced emphysema with consolidation at the right lung base which is most likely atelectatic correlation with patient's symptoms recommended. 3. Numerous pulmonary nodules as detailed above measuring up to 1 cm.For patients at low risk (minimal or absent history of smoking and of other known risk factors), recommend CT Chest at 3-6 months, then consider CT Chest at 18-24 months. For patients at high risk (history of smoking or of other known risk factors), recommend CT Chest at 3-6 months, then CT Chest at 18-24 months. (Reference: Tone) REFERENCES: Tone Renteria et al. Guidelines for Management of Incidental Pulmonary Nodules Detected on CT Images: From the Fleischner Society 2017. Radiology. 2017;284(1):228-243.
[2023-07-13 18:40] LABS: Anion Gap 15.4 mEq/L (5-15); Carbon Dioxide 27 mmol/L (22.0-30.0)
[2023-07-13 19:50] LABS: Reflex Lactic (2 hrs) Add Lactic Reflex
[2023-07-13 20:33] LABS: POC Glucose,Bedside 179 (70-110)
[2023-07-13 20:52] LABS: Lactic Acid Follow up (RFLX 2) 1.5 mmol/L (0.7-2.1)
[2023-07-14] VITALS (8 sets, daily range): BP systolic 102–133; BP diastolic 48–68; PULSE 70–83; RESP 17–20; TEMP 36.6–37; O2SAT 91–98; BMI 47.4
[2023-07-14 06:01] LABS: POC Glucose,Bedside 140 (70-110)
[2023-07-14 06:21] LABS: Basophils % 0.2 % (0.1-2.0); Eosinophils # 0.3 K/mm3 (0.0-0.4); Eosinophils % 3.6 % (0.1-12.0); Hematocrit 32.2 % (37.0-47.0); Hemoglobin 9.7 g/dL (12.2-16.2); Lymphocytes # 2.7 K/mm3 (0.7-4.5); Lymphocytes % 29.5 % (10-50); Mean Corpuscular Hemoglobin 25.5 pg (27.0-31.2); Mean Corpuscular Volume 84.9 fl (81-99); Monocytes # 0.4 K/mm3 (0.1-1.0); Monocytes % 4.2 % (1.7-9.3); Neutrophils # 5.7 K/mm3 (1.8-7.8); Neutrophils % 62.4 % (37.0-80.0); Platelet Count 360 K/mm3 (142-424); Red Blood Count 3.79 M/mm3 (4.20-5.40); Red Cell Distribution Width 17.8 % (11.5-17.5); White Blood Count 9.2 K/mm3 (4.8-10.8)
[2023-07-14 06:26] LABS: Alanine Aminotransferase 20 U/L (12-78); Albumin Level 3.4 g/dl (3.5-5.0); Alkaline Phosphatase 168 U/L (38-126); Anion Gap 14.4 mEq/L (5-15); Aspartate Amino Transferase 22 U/L (14-36); Bilirubin,Total 0.3 mg/dl (0.2-1.3); Blood Urea Nitrogen 21 mg/dl (7-17); Carbon Dioxide 27 mmol/L (22.0-30.0); Chloride 99 mmol/L (98-107); Chol/HDL Ratio 2.4 (1-3.5); Cholesterol 105 mg/dl (140-200); Creatinine Clearance Estimated 28 mL/min (50-200); Estimated Glomerular Filt Rate 38 ml/min (>60); GFR (African American) 46 ML/MIN (>60); Globulin 3.4 g/dL (1.3-3.2); Glucose 134 mg/dl (74-100); HDL Cholesterol 44 mg/dl (40-60); Magnesium 1.4 mg/dl (1.6-2.3); Potassium 4.4 mmoL/L (3.5-5.1); Sodium 136 mmol/L (136-145); Total Protein,Serum 6.8 g/dl (6.3-8.2); Triglycerides 201 mg/dl (30-150); VLDL Cholesterol 40 mg/dL (0-40)
--- NOTE | 2023-07-14 06:34 | PC.NURSE ---
VS stable throughout the night. Patient complained of pain on right side. WALTER Murrell notified but no new orders. Patient given one time dose of percocet after blood pressures stabilized and some relief noted. Patient arousable, alert and oriented.
[2023-07-14 06:37] LABS: Direct LDL Cholesterol 38.69 mg/dL (100-129)
--- NOTE | 2023-07-14 10:01 | EXP.ACUTE.PN ---
Subjective *Date: 07/14/23 *Time: 10:01 Interval history: Patient still having right-sided chest wall pain. Feels better when she lays on that side. Oxygen requirement has decreased overnight, weaned to 1.5 L. No fevers. Blood pressure improved. Now within normal range. No nausea or vomiting. Appears more alert and interactive today. Discussion with patient about pain control given concern for polypharmacy. Denies dyspnea, headache, diarrhea, abdominal pain. No productive cough. Medical Exam Vital signs and Labs for Last 24 Hours: Vital Signs Temp Pulse Pulse Resp BP Pulse Ox O2 Del Method 07/14/23 08:00 98 F 70 19 133/56 L 98 Nasal Cannula 07/14/23 06:35 75 07/14/23 06:35 76 07/14/23 06:35 95 Nasal Cannula 07/14/23 05:11 Room Air 07/14/23 04:00 98.2 F 75 18 128/68 91 L Nasal Cannula 07/14/23 03:15 Room Air 07/14/23 01:30 Room Air 07/13/23 23:15 Nasal Cannula 07/13/23 21:17 Room Air 07/13/23 20:06 Nasal Cannula 07/14/23 00:00 98.1 F 83 20 104/48 L 94 L Nasal Cannula 07/13/23 20:00 97.6 F 80 18 79/38 L 92 L 07/13/23 18:43 Nasal Cannula 07/13/23 18:24 Nasal Cannula 07/13/23 18:24 76 07/13/23 18:23 74 07/13/23 17:00 Nasal Cannula 07/13/23 15:00 Nasal Cannula 07/13/23 15:20 98.0 F 66 18 91/47 L 98 Nasal Cannula 07/13/23 12:00 100/51 L 07/13/23 11:00 95/52 L 07/13/23 13:00 Nasal Cannula 07/13/23 11:00 Nasal Cannula O2 Flow Rate FiO2 07/14/23 08:00 07/14/23 06:35 07/14/23 06:35 07/14/23 06:35 1.5 07/14/23 05:11 07/14/23 04:00 07/14/23 03:15 07/14/23 01:30 07/13/23 23:15 1 07/13/23 21:17 07/13/23 20:06 2 07/14/23 00:00 07/13/23 20:00 07/13/23 18:43 2.5 07/13/23 18:24 3 32 07/13/23 18:24 07/13/23 18:23 07/13/23 17:00 2.5 07/13/23 15:00 2.5 07/13/23 15:20 2.5 07/13/23 12:00 07/13/23 11:00 07/13/23 13:00 2.5 07/13/23 11:00 2.5 Intake and Output 07/13/23 07/14/23 07/14/23 23:59 07:59 15:59 Intake Total 1232 / 1712 480 / 480 Output Total 350 / 350 0 / 1000 1000 / 1000 Balance 882 / 1362 0 / -520 -520 / -520 Intake: Intake, Oral Amount 480 / 480 Infusion Intake 1232 / 1232 Lactated Ringers 1000ML 1,000 1232 / 1232 ml @ 999 mls/hr IV .Q1H1M PENDING SALE TO [facility] Rx#:[id number] Output: Output, Urine Amount 350 / 350 0 / 1000 1000 / 1000 Other: Number of Voids 0 Number of Unmeasured Voids 0 1 Number of Bowel Movements 0 Weight 109.571 kg Patient Weight 07/14/23 23:59 Weight 109.571 kg Laboratory Results - last 24 hr 07/13/23 04:30: Hemoglobin A1c 7.0 H 07/13/23 09:30: SARS-CoV-2 (PCR) Not detected, Influenza A Untype (PCR) Not detected, Influenza Type B (PCR) Not detected 07/13/23 09:58: Lactate 3.0 H 07/13/23 12:09: POC Glucose 116 H 07/13/23 16:28: POC Glucose 118 H 07/13/23 17:40: Sodium 134 L, Potassium 4.4, Chloride 96 L, Carbon Dioxide 27, Anion Gap 15.4 H, BUN 22 H D, Creatinine 2.60 H, Estimated Creat Clear 16, Estimated GFR 19 L*, Est GFR ( Amer) 23 L, Glucose 174 H, Lactate 2.4 H, Calcium 8.3 L 07/13/23 20:12: POC Glucose 179 H 07/13/23 20:30: Lactate 1.5 07/14/23 05:41: POC Glucose 140 H 07/14/23 05:54: WBC 9.2 D, RBC 3.79 L, Hgb 9.7 L, Hct 32.2 L, MCV 84.9, MCH 25.5 L, MCHC 30.0 L, RDW 17.8 H, Plt Count 360 D, MPV 9.0, Neut % (Auto) 62.4, Lymph % (Auto) 29.5, Quay % (Auto) 4.2, Eos % (Auto) 3.6, Baso % (Auto) 0.2, Neut # (Auto) 5.7, Lymph # (Auto) 2.7, Quay # (Auto) 0.4, Eos # (Auto) 0.3, Baso # (Auto) 0.0, Sodium 136, Potassium 4.4, Chloride 99, Carbon Dioxide 27, Anion Gap 14.4, BUN 21 H, Creatinine 1.40 H D, Estimated Creat Clear 28, Estimated GFR 38 L, Est GFR ( Amer) 46 L D, Glucose 134 H D, Calcium 8.0 L, Magnesium 1.4 L, Total Bilirubin 0.3, AST 22 D, ALT 20 D, Alkaline Phosphatase 168 H, Total P
[2023-07-14 11:09] LABS: Thyroid Stimulating Hormone 1.28 uIU/mL (0.465-4.68)
[2023-07-14 12:24] LABS: POC Glucose,Bedside 141 (70-110)
[2023-07-14 17:25] LABS: POC Glucose,Bedside 179 (70-110)
--- NOTE | 2023-07-14 21:30 | PC.NURSE ---
turned on pt bed alarm r/t fall hx -- aide went into room and pt/ request bed alarm to be turned on because states he is going to be staying the night. BA is now off. LS dimished bilaterally, removed lidocaine patch per order. pt asked if I could take both her IV's out so she could take a shower - pt was educated that IV's should remain in place til DC and that we could cover the IV sites with shower protectors, pt then refused a shower and said she would just take one when she gets home instead. pt has NC off, and at bedside. 1+ edema noted bilateral LE.
[2023-07-15] VITALS (10 sets, daily range): BP systolic 100–162; BP diastolic 59–95; PULSE 71–85; RESP 16–18; TEMP 36.4–36.8; O2SAT 94–98; BMI 46.7
[2023-07-15 00:47] LABS: POC Glucose,Bedside 168 (70-110)
[2023-07-15 05:17] LABS: POC Glucose,Bedside 139 (70-110)
--- NOTE | 2023-07-15 06:20 | CA_ITS ---
APPROVED REPORT EXAM: Comprehensive 2D, Doppler, and color-flow Echocardiogram Marketing Teacher: RAQUEL Mcelroy, RVS Ht: 4 ft 11 in Wt: 240lbs BSA: 1.99 BP: 80/50 mmHg Indications: COPD,cp, Near SYNCOPE CAD, HTN, HLD, Hx-Afib, CHF Echo Enhancing Agent Comments: Poor acoustics throughout exam due to large body habitus and lung impedance 2D Dimensions IVSd 0.97 cm F: 0.6-1.0 LVEF (Visual) 37.70 % PWd 1.22 cm F: 0.6 - 1.0 LA Volume 91.10 mL LVDd 4.68 cm F: 3.9 - 5.3 LA Volume Index 45.78 mL/m2 (M/F) 16-34 LVDs 3.83 cm F: 2.2 - 3.5 Aortic Root 2.60 cm F: 2.7 - 3.3 Left Atrium 3.59 cm F: 2.7 - 3.8 LVOT 2.27 cm (M/F) 1.5-2.5 M-Mode Dimensions RVDd 2.87 cm (0.9-2.6) LVDd 4.78 cm (3.5-5.7) LVDs 3.33 cm (3.5-5.7) IVSd 1.12 cm (0.6-1.1) PWd 1.14 cm (0.6-1.1) EF (Teich) 57.70% EPSs 0.73 cm FS 30.30% EDV (Teich) 106.50 mL TAPSE 1.97 (<1.7) ESV (Teich) 45.10 mL LV Diastology E Decel Time 200.00 (160-240 msec) E/A Ratio 0.99 MED E' 7.20 (< 7 cm/sec) MED A' 8.60 cm/s E'/MED E' Ratio 12.29 (>14) LAT E' 8.00 (<10 cm/sec) LAT A' 8.80 cm/s E/LAT E' Ratio 11.06 (>14) Aortic Valve LVOT Max 126.00 (70-110 cm/s) LVOT VTI 26.85 cm AoV Peak Saad. 176.00 (50-130 cm/s) AO Peak GR. 12.40 mmHg AO Mean GR. 6.20 (<5 mmHg) AO VTI 36.14 (18-25 cm) BLANCA (VTI) 3.01 (2.5-4.5 cm2) Mitral Valve MV A Velocity 90.00 (40-130 cm/s) E/A Ratio 0.99 MV Decel. Time 200.00 (160-240 ms) MV Mean Gr. 1.60 (<2mmHg) Pulmonary Valve PV Peak Velocity 95.00 (50-150 cm/s) Tricuspid Valve TR P. Velocity 197.00 cm/s RAP Estimate 10.00 mmHg RVSP 25.50 mmHg Left Ventricle The left ventricle is normal size. The left ventricular systolic function is normal. The left ventricular ejection fraction is within the normal range. There is increased LV wall thickness. There is normal LV segmental wall motion. Diastolic function is indeterminate. LVEF is 55%. Right Ventricle The right ventricle is normal size. The right ventricular systolic function is normal. Atria Left atrium is moderately dilated. Right atrium is mildly dilated. There is no Doppler evidence of interatrial shunt. Aortic Valve The aortic valve is mildly thickened. There is no aortic valvular stenosis. Trace aortic regurgitation. Mitral Valve There is mild mitral annular calcification. The mitral valve is normal in structure. No evidence of mitral valve stenosis. Mild mitral regurgitation. Tricuspid Valve The tricuspid valve leaflets are thin and pliable. Mild tricuspid regurgitation. RVSP is 15 mmHg + RA pressure Pulmonic Valve The pulmonary valve is normal in structure. Trace pulmonic regurgitation. Great Vessels The aortic root is normal in size. The ascending aorta is normal in size. The IVC is not well visualized. Pericardium There is no pericardial effusion. A fat pad is noted. Other Information Study Quality: Fair Conclusion Normal biventricular systolic function. No significant valvular disease. Electronically signed by : Porsha Torres, 07/15/2023 13:12:10
[2023-07-15 06:39] LABS: Basophils % 0.3 % (0.1-2.0); Eosinophils # 0.4 K/mm3 (0.0-0.4); Eosinophils % 4.5 % (0.1-12.0); Hematocrit 32.6 % (37.0-47.0); Hemoglobin 9.7 g/dL (12.2-16.2); Lymphocytes % 33.6 % (10-50); Mean Corpuscular HGB Conc 29.9 g/dL (31.8-35.4); Mean Corpuscular Hemoglobin 25.6 pg (27.0-31.2); Mean Corpuscular Volume 85.6 fl (81-99); Mean Platelet Volume 8.7 fl (7.4-10.4); Monocytes # 0.5 K/mm3 (0.1-1.0); Monocytes % 5.6 % (1.7-9.3); Neutrophils % 56.1 % (37.0-80.0); Platelet Count 391 K/mm3 (142-424); Red Blood Count 3.81 M/mm3 (4.20-5.40); Red Cell Distribution Width 17.8 % (11.5-17.5); White Blood Count 8.9 K/mm3 (4.8-10.8)
[2023-07-15 06:44] LABS: Alanine Aminotransferase 19 U/L (12-78); Albumin Level 3.4 g/dl (3.5-5.0); Alkaline Phosphatase 203 U/L (38-126); Anion Gap 9.1 mEq/L (5-15); Aspartate Amino Transferase 24 U/L (14-36); Bilirubin,Total 0.1 mg/dl (0.2-1.3); Blood Urea Nitrogen 17 mg/dl (7-17); Calcium 8.4 mg/dl (8.4-10.2); Carbon Dioxide 32 mmol/L (22.0-30.0); Chloride 103 mmol/L (98-107); Creatinine Clearance Estimated 40 mL/min (50-200); Estimated Glomerular Filt Rate 63 ml/min (>60); GFR (African American) 77 ML/MIN (>60); Globulin 3.4 g/dL (1.3-3.2); Glucose 108 mg/dl (74-100); Magnesium 1.8 mg/dl (1.6-2.3); Potassium 4.1 mmoL/L (3.5-5.1); Sodium 140 mmol/L (136-145); Total Protein,Serum 6.8 g/dl (6.3-8.2)
--- NOTE | 2023-07-15 07:47 | EXP.DC.SUM ---
General Admission date:: 07/13/23 Discharge date: 07/15/23 HPI HPI HPI: Ms. Arteaga is a 62-year-old female with extensive medical history including but not limited to CAD, hypertension, hyperlipidemia, COPD, uncontrolled NIDDM and obesity. Patient came to ER complaining of persistent chest pain that is just gotten worse over the past 2 weeks after falling twice at home. States she saw her pain management doctor who approved her to increase her gabapentin 2 to 3 weeks ago if needed for her leg pain. Since then she had a fall 2 weeks ago where she developed some chest pain after due to falling into furniture and sustained a sprained left ankle. She subsequently fell a week ago into a coffee table and has had persistent right-sided pain in her lower rib cage. Has been difficult for her to sleep and she is having pain with shortness of breath. Due to her worsening pain she came to the ER for evaluation. On work-up, patient is on her stable baseline 2-1/2 L oxygen requirement. White cell count was elevated to 19,000. Creatinine elevated to 2.2 (baseline 1.1). Tachypneic on initial arrival. Meeting septic shock criteria with elevated lactate of 4.0. Received 1 L IV fluid in the ER. Started on 1 g of ceftriaxone for pneumonia. Additionally noted to have mild elevation in troponin but no ischemic changes on EKG. Medicine consulted for admission. Arrival to the floor, patient is quite somnolent but will open eyes and answer questions. Per review it appears she received a dose of Flexeril in the ER. Blood pressure soft on arrival however not frankly hypotensive. Given additional liter of IV fluids. Significant other at bedside, helps answer questions. Patient denies any nausea, vomiting, confusion, headache, diarrhea, syncope. Denies any dysuria. Has been having a dry nonproductive cough for a few days. Hospital Course Hospital Course Hospital Course: 62-year-old female with multiple comorbidities, chronic hypoxemic respiratory failure, chronic pain, who presents with right-sided chest pain due to falls. Initial work-up in the ER concerning for septic shock with leukocytosis, tachypnea, elevated lactate. Received 3 L total of IV fluids. Was started on antibiotics with ceftriaxone. Patient's symptoms have defervesced over the first 24 hours of hospitalization. Blood pressure has remained within normal range and mentation back to baseline. White cell count normalized along with lactate. Monitored kidney function for improvement which has returned to baseline as well. Patient stable for discharge home. Still having significant rib pain. Recommend discharge home with close follow-up. Problems addressed as follows: Septic shock, resolved Pneumonia versus atelectasis Chronic hypoxemic respiratory failure COPD -Leukocytosis of 19,000, tachypneic to 22 on arrival to the ER, concern for pneumonia on chest imaging. Lactate 4.0. White cell count normalized by morning of day 2 and remained afebrile. Lactate normalized with fluids. Initiated on empiric course of antibiotics with Ceftriaxone. Will transition to Cefdinir to complete 7 days total. Chest imaging on admission with Xray and CT showed multiple right sided rib fractures and scant effusion along with atelectasis vs consolidation in RLL. Remained stable on her baseline O2 requiring 1.5-2.5L during admission. Continue DuoNebs upon discharge, singulair. Recommend continuing incentive spirometry while rib fractures heal over the coming weeks. Patient has been referred to pulmonology for follow-up and further management of her emphysema. CT of chest also noted numerous subcentimeter nodules that need repeat managing in 3 to 6 months. Follow-ups scheduled with pulmonology and PCP. Of note, patient's initial set of blood cultures returned positive for Staph epidermidis. High suspicion that this is commensal/contaminant. Given absence of fever, rapid improvement in leukocytosis, and improvement after si
--- NOTE | 2023-07-15 10:55 | EXP.ACUTE.PN ---
Subjective *Date: 07/15/23 *Time: 10:55 Interval history: Patient continues to complain of rib pain. Lidocaine helping somewhat. Oxycodone providing improved relief but wearing off in between current dosing regimen. Patient requesting that timing to be increased. Additionally, all 4 blood cultures have come back positive with Staph epidermidis. Mother suspicion this may be contaminant given the difficulty in obtaining blood from patient and her rapid defervescent's of symptoms, cannot rule out bacteremia. We will repeat blood cultures today. Has planned to have new port put in, new port put in, will need to verify that she is not bacteremic prior to potentially placing hardware. Stable oxygen requirement. Afebrile. Tolerating p.o. intake. Having bowel movements. Medical Exam Vital signs and Labs for Last 24 Hours: Vital Signs Temp Pulse Pulse Resp BP Pulse Ox O2 Del Method 07/15/23 08:41 80 18 07/15/23 08:39 82 07/15/23 08:39 82 07/15/23 07:31 97.8 F 85 16 130/83 97 Nasal Cannula 07/15/23 05:42 98 Nasal Cannula 07/15/23 06:33 Nasal Cannula 07/15/23 05:00 Room Air, Nasal Cannula 07/15/23 03:00 Room Air, Nasal Cannula 07/15/23 04:00 97.6 F 71 16 109/61 L 95 Nasal Cannula 07/15/23 00:50 Room Air, Nasal Cannula 07/15/23 00:00 97.9 F 75 16 100/59 L 96 Nasal Cannula 07/14/23 23:00 Room Air, Nasal Cannula 07/14/23 21:00 Room Air, Nasal Cannula 07/14/23 20:00 Room Air, Nasal Cannula 07/14/23 20:00 98.6 F 72 17 112/58 L 91 L Room Air 07/14/23 18:49 75 07/14/23 18:49 78 07/14/23 18:49 92 L Nasal Cannula 07/14/23 16:00 98.5 F 76 17 102/55 L 96 Nasal Cannula 07/14/23 13:00 74 07/14/23 13:00 74 07/14/23 13:00 91 L Nasal Cannula O2 Flow Rate 07/15/23 08:41 07/15/23 08:39 07/15/23 08:39 07/15/23 07:31 2 07/15/23 05:42 2 07/15/23 06:33 2 07/15/23 05:00 1.5 07/15/23 03:00 1.5 07/15/23 04:00 07/15/23 00:50 1.5 07/15/23 00:00 07/14/23 23:00 1.5 07/14/23 21:00 1.5 07/14/23 20:00 2.5 07/14/23 20:00 07/14/23 18:49 07/14/23 18:49 07/14/23 18:49 1.5 07/14/23 16:00 2 07/14/23 13:00 07/14/23 13:00 07/14/23 13:00 2 Intake and Output 07/14/23 07/15/23 07/15/23 23:59 07:59 15:59 Intake Total 620 / 1580 330 / 330 Output Total 0 / 1150 150 / 150 0 / 150 Balance 620 / 430 180 / 180 0 / 180 Intake: Intake, Oral Amount 600 / 1560 330 / 330 Intake, Other Amount 20 / 20 Output: Output, Urine Amount 0 / 1150 150 / 150 0 / 150 Other: Intake, Other Source Saline Solution Number of Voids 0 Number of Unmeasured Voids 1 1 Number of Bowel Movements 1 Weight 107.864 kg Patient Weight 07/15/23 23:59 Weight 107.864 kg Laboratory Results - last 24 hr 07/14/23 05:54: TSH 1.28 07/14/23 12:17: POC Glucose 141 H 07/14/23 17:18: POC Glucose 179 H 07/14/23 20:39: POC Glucose 168 H 07/15/23 05:10: POC Glucose 139 H 07/15/23 05:56: WBC 8.9, RBC 3.81 L, Hgb 9.7 L, Hct 32.6 L, MCV 85.6, MCH 25.6 L, MCHC 29.9 L, RDW 17.8 H, Plt Count 391, MPV 8.7, Neut % (Auto) 56.1, Lymph % (Auto) 33.6, Cecil % (Auto) 5.6, Eos % (Auto) 4.5, Baso % (Auto) 0.3, Neut # (Auto) 5.0, Lymph # (Auto) 3.0, Cecil # (Auto) 0.5, Eos # (Auto) 0.4, Baso # (Auto) 0.0, Sodium 140, Potassium 4.1, Chloride 103, Carbon Dioxide 32 H, Anion Gap 9.1, BUN 17, Creatinine 0.90 D, Estimated Creat Clear 40, Estimated GFR 63, Est GFR ( Amer) 77 D, Glucose 108 H, Calcium 8.4, Magnesium 1.8 D, Total Bilirubin 0.1 L, AST 24, ALT 19, Alkaline Phosphatase 203 H, Total Protein 6.8, Albumin 3.4 L, Globulin 3.4 H, Albumin/Globulin Ratio 1.0 L I & O for Labs for Last 24 Hours: Intake & Output 07/12/23 07/13/23 07/14/23 07/15/23 23:59 23:59 23:59 23:59 Intake Total 1712 / 1712 1580 / 1580 330 / 330 Output Total 350 / 350 1000 / 1150 150 / 150 Bal
[2023-07-15 12:22] LABS: POC Glucose,Bedside 191 (70-110)
[2023-07-15 16:50] LABS: POC Glucose,Bedside 149 (70-110)
--- NOTE | 2023-07-15 18:28 | PC.NURSE ---
PT C/O PAIN T/O SHIFT AT RT RIBS. COUGHING, EDUCATED THE NEED TO SPLINT AREA. PT HAS BEEN TEARFUL/ANXIOUS ONCE TODAY, OTHER THAN THAT NO ISSUES. PT PLEASANT. AT BS ALL DAY.
[2023-07-15 20:58] LABS: POC Glucose,Bedside 156 (70-110)
[2023-07-16] VITALS (14 sets, daily range): BP systolic 98–135; BP diastolic 58–91; PULSE 70–136; RESP 16–20; TEMP 36.3–36.8; O2SAT 93–99; BMI 46.7
[2023-07-16 05:53] LABS: POC Glucose,Bedside 163 (70-110)
[2023-07-16 06:38] LABS: Chloride 101 mmol/L (98-107); Potassium 4.5 mmoL/L (3.5-5.1); Sodium 138 mmol/L (136-145)
[2023-07-16 06:40] LABS: Blood Urea Nitrogen 18 mg/dl (7-17); Creatinine Clearance Estimated 40 mL/min (50-200); Estimated Glomerular Filt Rate 73 ml/min (>60); GFR (African American) 88 ML/MIN (>60)
[2023-07-16 06:41] LABS: Alanine Aminotransferase 25 U/L (12-78); Albumin Level 3.2 g/dl (3.5-5.0); Alkaline Phosphatase 194 U/L (38-126); Anion Gap 12.5 mEq/L (5-15); Aspartate Amino Transferase 35 U/L (14-36); Bilirubin,Total 0.3 mg/dl (0.2-1.3); Calcium 8.7 mg/dl (8.4-10.2); Carbon Dioxide 29 mmol/L (22.0-30.0); Globulin 3.3 g/dL (1.3-3.2); Glucose 164 mg/dl (74-100); Total Protein,Serum 6.5 g/dl (6.3-8.2)
--- NOTE | 2023-07-16 09:25 | PC.NURSE ---
pt hr since coming on shift has been 90s-140s. notified NEISHA sawant for cardiac monitoring at this time.
--- NOTE | 2023-07-16 11:43 | EXP.PN ---
Subjective *Date: 07/16/23 *Time: 16:25 Interval history: No acute events overnight. She continues to have right sided chest pain. She denies dyspnea and has been eating well. Exam Data for Last 24 hours Vital signs and Labs for Last 24 Hours: Temp Pulse Resp BP Pulse Ox O2 Del Method O2 Flow Rate 98.2 F 106 H 18 111/78 98 Nasal Cannula 1.5 07/16/23 11:03 07/16/23 11:03 07/16/23 11:03 07/16/23 11:03 07/16/23 11:03 07/16/23 11:03 07/16/23 11:03 FiO2 32 07/13/23 18:24 Laboratory Results - last 24 hr 07/15/23 12:14: POC Glucose 191 H 07/15/23 16:33: POC Glucose 149 H 07/15/23 20:35: POC Glucose 156 H 07/16/23 05:44: POC Glucose 163 H 07/16/23 06:03: Sodium 138, Potassium 4.5, Chloride 101, Carbon Dioxide 29, Anion Gap 12.5, BUN 18 H, Creatinine 0.80, Estimated Creat Clear 40, Estimated GFR 73, Est GFR ( Amer) 88, Glucose 164 H, Calcium 8.7, Total Bilirubin 0.3, AST 35 D, ALT 25 D, Alkaline Phosphatase 194 H, Total Protein 6.5, Albumin 3.2 L, Globulin 3.3 H, Albumin/Globulin Ratio 1.0 L I & O for Last 24 hours: Intake & Output 07/13/23 07/14/23 07/15/23 07/16/23 23:59 23:59 23:59 23:59 Intake Total 1712 / 1712 1580 / 1580 1200 / 1200 480 / 480 Output Total 350 / 350 1000 / 1150 150 / 150 Balance 1362 / 1362 580 / 430 1050 / 1050 480 / 480 Weight 104.78 kg 109.571 kg 107.864 kg 108 kg Microbiology Reports for the Last 24 Hours: Microbiology 07/13/23 06:23 Blood Blood Culture - Preliminary Gram Positive Cocci 07/13/23 06:23 Blood Blood Culture - Preliminary Gram Positive Cocci Constitutional Constitutional: no acute distress *Routine HEENT Exam Head: Present normocephalic Eye: Present EOMI and PERRL ENT: Present mucous membranes moist *Routine Neck Exam Neck: Present supple; Absent lymphadenopathy *Routine Respiratory Exam Respiratory: Present CTA bilaterally *Routine Cardiovascular Exam Cardiovascular: Present RRR *Routine Abdominal Exam Abdominal: Present soft and normoactive bowel sounds; Absent tenderness *Routine Extremities Exam Extremities: Absent cyanosis, clubbing or edema *Routine Skin Exam Skin: Present warm; Absent rash *Routine Neurological Exam Neurological: Present alert and oriented X3 Assessment and Plan *Assessment and plan (1) Pneumonia: Status: Acute Qualifiers: Laterality: right Lung location: lower lobe of lung Pneumonia type: due to unspecified organism Qualified Code(s): J18.9 - Pneumonia, unspecified organism Category: Medical Code(s): J18.9 - Pneumonia, unspecified organism (2) Staphylococcus epidermidis bacteremia: Status: Acute Category: Medical Code(s): R78.81 - Bacteremia; B95.7 - Other staphylococcus as the cause of diseases classified elsewhere (3) COPD (chronic obstructive pulmonary disease): Status: Chronic Qualifiers: COPD type: unspecified COPD Qualified Code(s): J44.9 - Chronic obstructive pulmonary disease, unspecified Category: Medical Code(s): J44.9 - Chronic obstructive pulmonary disease, unspecified (4) Hypertension: Status: Chronic Qualifiers: Hypertension type: essential hypertension Qualified Code(s): I10 - Essential (primary) hypertension Category: Medical Code(s): I10 - Essential (primary) hypertension (5) Hyperlipidemia: Status: Chronic Qualifiers: Hyperlipidemia type: mixed hyperlipidemia Qualified Code(s): E78.2 - Mixed hyperlipidemia Category: Medical Code(s): E78.5 - Hyperlipidemia, unspecified (6) Rib fractures: Status: Acute Qualifiers: Encounter type: sequela Fracture type: closed Laterality: right Qualified Code(s): S22.41XS - Multiple fractures of ribs, right side, sequela Category: Medical Code(s): S22.49XA - Multiple fractures of ribs, unspecified
[2023-07-16 12:24] LABS: POC Glucose,Bedside 140 (70-110)
[2023-07-16 17:16] LABS: POC Glucose,Bedside 154 (70-110)
[2023-07-16 17:40] LABS: POC Glucose,Bedside 125 (70-110)
--- NOTE | 2023-07-16 18:43 | PC.NURSE ---
overall pt states shes felt worse today that yesterday with pain and just feeling funny . md made aware earlier in the shift, this evening pt feels a little better now at bs. vss, hr 76 at this time.
[2023-07-16 21:07] LABS: POC Glucose,Bedside 115 (70-110)
[2023-07-17] VITALS: BP 104/55; PULSE 78; PULSE 80; RESP 18; TEMP 36.5; O2SAT 98
--- NOTE | 2023-07-17 03:51 | PC.NURSE ---
PATIENT A/O. RESTING IN BED. MEDICATED WITH PERCOCET 7.5 FOR PAIN TWICE FOR RIGHT RIB PAIN 5-06/09. 02 1.5l nc maintained. sats 98%.
[2023-07-17 04:00] VITALS: BP 119/65; PULSE 79; PULSE 80; RESP 18; TEMP 36.6; O2SAT 97; BMI 47.2
[2023-07-17 05:11] LABS: POC Glucose,Bedside 116 (70-110)
[2023-07-17 06:05] VITALS: PULSE 63; O2SAT 96
[2023-07-17 06:34] LABS: Basophils % 0.4 % (0.1-2.0); Eosinophils # 0.5 K/mm3 (0.0-0.4); Eosinophils % 5.3 % (0.1-12.0); Hematocrit 32.5 % (37.0-47.0); Lymphocytes # 3.1 K/mm3 (0.7-4.5); Lymphocytes % 32.8 % (10-50); Mean Corpuscular HGB Conc 30.8 g/dL (31.8-35.4); Mean Corpuscular Hemoglobin 26.5 pg (27.0-31.2); Mean Corpuscular Volume 86.1 fl (81-99); Mean Platelet Volume 8.3 fl (7.4-10.4); Monocytes # 0.6 K/mm3 (0.1-1.0); Monocytes % 6.4 % (1.7-9.3); Neutrophils # 5.3 K/mm3 (1.8-7.8); Neutrophils % 55.1 % (37.0-80.0); Platelet Count 360 K/mm3 (142-424); Red Blood Count 3.77 M/mm3 (4.20-5.40); Red Cell Distribution Width 17.7 % (11.5-17.5); White Blood Count 9.6 K/mm3 (4.8-10.8)
[2023-07-17 06:46] LABS: Chloride 101 mmol/L (98-107); Potassium 4.3 mmoL/L (3.5-5.1); Sodium 139 mmol/L (136-145)
[2023-07-17 06:49] LABS: Alanine Aminotransferase 43 U/L (12-78); Albumin Level 3.3 g/dl (3.5-5.0); Albumin/Globulin Ratio 0.9 (1.1-1.8); Alkaline Phosphatase 247 U/L (38-126); Anion Gap 14.3 mEq/L (5-15); Aspartate Amino Transferase 61 U/L (14-36); Bilirubin,Total 0.3 mg/dl (0.2-1.3); Blood Urea Nitrogen 19 mg/dl (7-17); Calcium 8.7 mg/dl (8.4-10.2); Carbon Dioxide 28 mmol/L (22.0-30.0); Creatinine Clearance Estimated 40 mL/min (50-200); Estimated Glomerular Filt Rate 73 ml/min (>60); GFR (African American) 88 ML/MIN (>60); Globulin 3.5 g/dL (1.3-3.2); Glucose 114 mg/dl (74-100); Total Protein,Serum 6.8 g/dl (6.3-8.2)
[2023-07-17 08:00] VITALS: BP 130/90; PULSE 20; PULSE 90; RESP 20; TEMP 36.4; O2SAT 91
--- NOTE | 2023-07-17 08:15 | P.DS_ITS ---
General Admission date:: 07/13/23 HPI HPI HPI: Ms. Arteaga is a 62-year-old female with extensive medical history including but not limited to CAD, hypertension, hyperlipidemia, COPD, uncontrolled NIDDM and obesity. Patient came to ER complaining of persistent chest pain that is just gotten worse over the past 2 weeks after falling twice at home. States she saw her pain management doctor who approved her to increase her gabapentin 2 to 3 weeks ago if needed for her leg pain. Since then she had a fall 2 weeks ago where she developed some chest pain after due to falling into furniture and sustained a sprained left ankle. She subsequently fell a week ago into a coffee table and has had persistent right-sided pain in her lower rib cage. Has been difficult for her to sleep and she is having pain with shortness of breath. Due to her worsening pain she came to the ER for evaluation. On work-up, patient is on her stable baseline 2-1/2 L oxygen requirement. White cell count was elevated to 19,000. Creatinine elevated to 2.2 (baseline 1.1). Tachypneic on initial arrival. Meeting septic shock criteria with elevated lactate of 4.0. Received 1 L IV fluid in the ER. Started on 1 g of ceftriaxone for pneumonia. Additionally noted to have mild elevation in troponin but no ischemic changes on EKG. Medicine consulted for admission. Arrival to the floor, patient is quite somnolent but will open eyes and answer questions. Per review it appears she received a dose of Flexeril in the ER. Blood pressure soft on arrival however not frankly hypotensive. Given additional liter of IV fluids. Significant other at bedside, helps answer questions. Patient denies any nausea, vomiting, confusion, headache, diarrhea, syncope. Denies any dysuria. Has been having a dry nonproductive cough for a few days. Hospital Course Hospital Course Hospital Course: Forwarded from Dr. Cody's D/c summary from 07/15/2023: 62-year-old female with multiple comorbidities, chronic hypoxemic respiratory failure, chronic pain, who presents with right-sided chest pain due to falls. Initial work-up in the ER concerning for septic shock with leukocytosis, tachypnea, elevated lactate. Received 3 L total of IV fluids. Was started on antibiotics with ceftriaxone. Patient's symptoms have defervesced over the first 24 hours of hospitalization. Blood pressure has remained within normal range and mentation back to baseline. White cell count normalized along with lactate. Monitored kidney function for improvement which has returned to baseline as well. Patient stable for discharge home. Still having significant rib pain. Recommend discharge home with close follow-up. Problems addressed as follows: Septic shock, resolved Pneumonia versus atelectasis Chronic hypoxemic respiratory failure COPD -Leukocytosis of 19,000, tachypneic to 22 on arrival to the ER, concern for pneumonia on chest imaging. Lactate 4.0. White cell count normalized by morning of day 2 and remained afebrile. Lactate normalized with fluids. Initiated on empiric course of antibiotics with Ceftriaxone. Will transition to Cefdinir to complete 7 days total. Chest imaging on admission with Xray and CT showed multiple right sided rib fractures and scant effusion along with atelectasis vs consolidation in RLL. Remained stable on her baseline O2 re quiring 1.5-2.5L during admission. Continue DuoNebs upon discharge, singulair. Recommend continuing incentive spirometry while rib fractures heal over the coming weeks. Patient has been referred to pulmonology for follow-up and further management of her emphysema. CT of chest also noted numerous subcentimeter nodules that need repeat managing in 3 to 6 months. Follow-
--- NOTE | 2023-07-17 08:41 | EXP.PHA.PN ---
Subjective *Date: 07/17/23 *Time: 08:41 Medical Exam Vital signs and Labs for Last 24 Hours: Vital Signs Temp Pulse Pulse Pulse Resp BP Pulse Ox 07/17/23 06:29 07/17/23 04:00 97.9 F 80 18 119/65 97 07/17/23 06:05 63 07/17/23 06:05 63 07/17/23 06:05 96 07/17/23 05:00 07/17/23 04:00 79 07/17/23 03:00 07/17/23 00:00 97.7 F 78 18 104/55 L 98 07/17/23 01:00 07/17/23 00:00 80 07/16/23 23:00 07/16/23 20:00 76 07/16/23 20:00 97.8 F 75 18 130/91 H 97 07/16/23 21:00 07/16/23 19:53 93 L 07/16/23 18:46 07/16/23 17:00 07/16/23 18:23 78 07/16/23 18:23 83 07/16/23 18:23 94 L 07/16/23 16:00 70 07/16/23 12:00 100 H 07/16/23 09:39 100 H 07/16/23 15:00 07/16/23 15:16 97.4 F L 75 20 135/83 98 07/16/23 13:00 07/16/23 11:00 07/16/23 12:35 77 07/16/23 12:35 77 07/16/23 11:03 98.2 F 106 H 18 111/78 98 07/16/23 08:46 98.2 F 136 H 18 133/88 99 O2 Del Method O2 Flow Rate 07/17/23 06:29 Nasal Cannula 1.5 07/17/23 04:00 Nasal Cannula 1.5 07/17/23 06:05 07/17/23 06:05 07/17/23 06:05 Nasal Cannula 1.5 07/17/23 05:00 Nasal Cannula 1.5 07/17/23 04:00 07/17/23 03:00 Nasal Cannula 1.5 07/17/23 00:00 Nasal Cannula 1.5 07/17/23 01:00 Nasal Cannula 1.5 07/17/23 00:00 07/16/23 23:00 Nasal Cannula 1.5 07/16/23 20:00 07/16/23 20:00 Nasal Cannula 1.5 07/16/23 21:00 Nasal Cannula 1.5 07/16/23 19:53 Nasal Cannula 1.5 07/16/23 18:46 Nasal Cannula 1.5 07/16/23 17:00 Nasal Cannula 1.5 07/16/23 18:23 07/16/23 18:23 07/16/23 18:23 Nasal Cannula 1.5 07/16/23 16:00 07/16/23 12:00 07/16/23 09:39 07/16/23 15:00 Room Air 07/16/23 15:16 Nasal Cannula 1.5 07/16/23 13:00 Room Air 07/16/23 11:00 Room Air 07/16/23 12:35 07/16/23 12:35 07/16/23 11:03 Nasal Cannula 1.5 07/16/23 08:46 Nasal Cannula 2 Intake and Output 07/16/23 07/17/23 07/17/23 23:59 07:59 15:59 Intake Total 600 / 1560 360 / 360 Output Total 0 / 240 0 / 0 Balance 600 / 1320 0 / 360 360 / 360 Intake: Intake, Oral Amount 600 / 1560 360 / 360 Output: Output, Urine Amount 0 / 240 0 / 0 Other: Number of Unmeasured Voids 2 1 Number of Urine Attends/Diapers 2 Weight 109.004 kg Patient Weight 07/17/23 23:59 Weight 109.004 kg Laboratory Results - last 24 hr 07/16/23 12:15: POC Glucose 140 H 07/16/23 16:36: POC Glucose 154 H 07/16/23 17:33: POC Glucose 125 H 07/16/23 21:00: POC Glucose 115 H 07/17/23 05:03: POC Glucose 116 H 07/17/23 05:40: WBC 9.6, RBC 3.77 L, Hgb 10.0 L, Hct 32.5 L, MCV 86.1, MCH 26.5 L, MCHC 30.8 L, RDW 17.7 H, Plt Count 360, MPV 8.3, Neut % (Auto) 55.1, Lymph % (Auto) 32.8, [place] % (Auto) 6.4, Eos % (Auto) 5.3, Baso % (Auto) 0.4, Neut # (Auto) 5.3, Lymph # (Auto) 3.1, [place] # (Auto) 0.6, Eos # (Auto) 0.5 H, Baso # (Auto) 0.0, Sodium 139, Potassium 4.3, Chloride 101, Carbon Dioxide 28, Anion Gap 14.3, BUN 19 H, Creatinine 0.80, Estimated Creat Clear 40, Estimated GFR 73, Est GFR ( Amer) 88, Glucose 114 H D, Calcium 8.7, Total Bilirubin 0.3, AST 61 H D, ALT 43 D, Alkaline Phosphatase 247 H, Total Protein 6.8, Albumin 3.3 L, Globulin 3.5 H, Albumin/Globulin Ratio 0.9 L I & O for Labs for Last 24 Hours: Intake & Output 07/14/23 07/15/23 07/16/23 07/17/23 23:59 23:59 23:59 23:59 Intake Total 1580 / 1580 1200 / 1200 1560 / 1560 360 / 360 Output Total 1000 / 1150 150 / 150 240 / 240 0 / 0 Balance 580 / 430 1050 / 1050 1320 / 1320 360 / 360 Weight 109.571 kg 107.864 kg 108 kg 109.004 kg Microbiology Reports for the Last 24 Hours: Microbiology 07/13/23 06:23 Blood Blood Culture - Final Staphylococcus hominis The patient's infection will respond to the chosen ABx?: Yes
[2023-07-17 11:43] LABS: POC Glucose,Bedside 177 (70-110)
--- NOTE | 2023-07-18 13:29 | CARE MANAGER ---
Spoke with patient related to hospital discharge. She states she is pretty weak, but feeling ok. She picked up her medications and is aware of her follow up appointments. Denies any questions or concerns. LAITH Oliveira
== END 2023-07-17 11:50 | disposition home or self-care (01) | DRG 871 ==
LOC: ER 06:36 → 2ND 07:07
PROVIDERS: Emergency Medicine; Internal Medicine; Nurse Practitioner Family; Admitting Provider Internal Medicine Adolescent Medicine; Emergency Provider Emergency Medicine; PCP Family Medicine; Visit Provider Internal Medicine Adolescent Medicine
DX: A41.9 Sepsis, unspecified organism (principal); J18.9 Pneumonia, unspecified organism; R65.21 Severe sepsis with septic shock; N17.9 Acute kidney failure, unspecified; J96.11 Chronic respiratory failure with hypoxia; I50.30 Unspecified diastolic (congestive) heart failure; J98.11 Atelectasis; Z72.0 Tobacco use; J44.9 Chronic obstructive pulmonary disease, unspecified; E78.2 Mixed hyperlipidemia; I25.10 Atherosclerotic heart disease of native coronary artery without angina pectoris; E66.01 Morbid (severe) obesity due to excess calories; R07.89 Other chest pain; E11.9 Type 2 diabetes mellitus without complications; B95.7 Other staphylococcus as the cause of diseases classified elsewhere; S22.41XS Multiple fractures of ribs, right side, sequela; Z99.81 Dependence on supplemental oxygen; I11.0 Hypertensive heart disease with heart failure; F41.9 Anxiety disorder, unspecified; F39 Unspecified mood [affective] disorder; E03.9 Hypothyroidism, unspecified
CPT/HCPCS: 36415; 71046; 71250; 80048; 80053; 80061; 82803; 82962; 83036; 83605; 83735; 84443; 84484; 85007; 85025; 85378; 87040; 87077; 87186; 87636; 93005; 93306; 94640; 94760; 94761; 99285; J0696; J3475

== ENCOUNTER → 2023-08-01 10:39 | Outpatient (CLI) | payer MEDICARE, MEDICAID, SELFPAY ==
--- NOTE | 2023-08-01 10:54 | CA_ITS ---
FINAL REPORT CLINICAL HISTORY: Pt to get port placed next week. Pt had port removed from right chest 6-8 wks ago d/t infection. Pt wants new port placed in right chest. COMPARISON: None FINDINGS: Color Doppler, duplex Doppler and compression sonography of the bilateral upper extremity venous system was performed. There is no evidence of venous thrombosis involving the bilateral internal jugular, subclavian or axillary veins. The bilateral brachial, cephalic, radial and ulnar veins are patent without evidence of thrombosis. IMPRESSION: No evidence of venous thrombosis bilateral upper extremities. Reviewed, Interpreted and Dictated by Diogo Rose MD Transcribed by Felicita Lopez Authenticated and [facility]
== END ==
PROVIDERS: PCP Family Medicine; Visit Provider Surgery
DX: R22.33 Localized swelling, mass and lump, upper limb, bilateral (principal); I77.1 Stricture of artery; Z45.2 Encounter for adjustment and management of vascular access device
CPT/HCPCS: 93970

== ENCOUNTER 2023-08-12 14:24 | Day surgery (SDC) | payer MEDICARE, MEDICAID, SELFPAY ==
[2023-08-12 14:36] VITALS: BP 125/60; PULSE 98; RESP 17; TEMP 36.5; O2SAT 96; BMI 36.6
--- NOTE | 2023-08-12 14:43 | EXP.PAIN.PRO ---
Procedure Date: 08/12/23 Time: 14:40 Anesthesiologist:: Josue Tristan CRNA Complications:: None Pre-procedure Diagnosis:: Degenerative disc lumbar spine multilevels. Lumbar radiculopathy Post-procedure Diagnosis:: Same. Indications for Procedure:: Patient is a very pleasant 62-year-old female comes today for intrathecal pain pump interrogation refill. Also, concentration change in her bupivacaine from 15 mg/mL to 20 mg/mL. She is doing very well with her current rate. She rates her pain today 0/10. She does not complain any side effects or complications regarding intrathecal pain pump management Procedure Details:: Details of the procedure explained to the patient. The patient taken the procedure room placed in sitting position. The area of the pump was cleansed using chlorhexidine as a cleansing solution. The pump was interrogated. The pump was accessed with ease using a 22-gauge inch and a half needle. 9.8 mL of solution was withdrawn discarded appropriate. The pump was then filled with 20 cc of a solution containing bupivacaine 20 mg/mL. The rate will continue at 2.75 mg/day. Patient tolerated procedure without difficulty. There are no complications Plan and Disposition:: Patient was discharged without incident.
[2023-08-12 14:55] VITALS: BP 143/92; PULSE 99; RESP 20
--- NOTE | 2023-08-12 15:17 | XR_ITS ---
FINAL REPORT TECHNIQUE: Chest PA & Lateral CLINICAL HISTORY: port placement sx on friday FINDINGS: 2 views of the chest were performed. The heart size is normal. The mediastinum is within normal limits. There is no acute cardiopulmonary process. There are no pleural effusions. There is no pneumothorax. There is postoperative change in the lower cervical spine. IMPRESSION: No acute cardiopulmonary process. Reviewed, Interpreted and Dictated by Jorge Rodriguez III, MD Transcribed by Demetri Foreman Authenticated and [facility]
[2023-08-12 15:26] LABS: Basophils % 0.4 % (0.1-2.0); Eosinophils # 0.3 K/mm3 (0.0-0.4); Eosinophils % 3.3 % (0.1-12.0); Hematocrit 37.1 % (37.0-47.0); Hemoglobin 11.3 g/dL (12.2-16.2); Lymphocytes # 2.5 K/mm3 (0.7-4.5); Lymphocytes % 26.2 % (10-50); Mean Corpuscular HGB Conc 30.5 g/dL (31.8-35.4); Mean Corpuscular Volume 85.4 fl (81-99); Mean Platelet Volume 9.8 fl (7.4-10.4); Monocytes # 0.4 K/mm3 (0.1-1.0); Monocytes % 4.2 % (1.7-9.3); Neutrophils # 6.3 K/mm3 (1.8-7.8); Neutrophils % 65.8 % (37.0-80.0); Platelet Count 293 K/mm3 (142-424); Red Blood Count 4.35 M/mm3 (4.20-5.40); Red Cell Distribution Width 17.2 % (11.5-17.5); White Blood Count 9.5 K/mm3 (4.8-10.8)
[2023-08-12 16:02] LABS: Chloride 107 mmol/L (98-107); Sodium 141 mmol/L (136-145)
[2023-08-12 16:05] LABS: Blood Urea Nitrogen 13 mg/dl (7-17); Carbon Dioxide 22 mmol/L (22.0-30.0); Creatinine Clearance Estimated 95 mL/min (50-200); Estimated Glomerular Filt Rate 63 ml/min (>60); GFR (African American) 77 ML/MIN (>60)
[2023-08-12 16:06] LABS: Calcium 8.6 mg/dl (8.4-10.2); Glucose 129 mg/dl (74-100)
== END 2023-08-12 14:55 | disposition home or self-care (01) ==
PROVIDERS: Surgery; PCP Family Medicine; Visit Provider Nurse Anesthetist, Certified Registered
DX: I48.0 Paroxysmal atrial fibrillation (principal); I87.8 Other specified disorders of veins; M51.16 Intervertebral disc disorders with radiculopathy, lumbar region; Z97.8 Presence of other specified devices
CPT/HCPCS: 36415; 71046; 80048; 85025; 95991

== ENCOUNTER 2023-08-18 07:21 | Day surgery (SDC) | payer MEDICARE, MEDICAID, SELFPAY ==
[2023-08-13 16:23] VITALS: BMI 38.7
[2023-08-18] VITALS (9 sets, daily range): BP systolic 113–149; BP diastolic 72–90; PULSE 72–78; RESP 16–18; TEMP 36.1–36.4; O2SAT 95–99
--- NOTE | 2023-08-18 08:05 | P.PNANES_ITS ---
[facility] Disclaimer: The information contained in this section may have been updated after the patient was seen, as this information can be updated by other users. Medical History Anxiety and depression COPD (chronic obstructive pulmonary disease) Diabetes Dyspnea History of class III angina pectoris History of CVA (cerebrovascular accident) History of multiple cerebrovascular accidents (CVAs) History of pancreatitis History of stroke HLD (hyperlipidemia) TIA (transient ischemic attack) Typical angina Unstable angina Surgical History History of biliary duct stent placement History of cholecystectomy History of coronary artery stent placement History of hysterectomy Family History Other Family history of cancer Family history of diabetes mellitus Social History Smoking Status: Former smoker pack-years: 40 second hand exposure: No alcohol intake: never counseling provided: none substance use type: marijuana and crack/cocaine current occupational status: retired and other Travel in the last 8 weeks: None household members: spouse housing: house number of children: 2 current occupational exposures/hazards: No caffeine: Yes [facility] Anesthesia Checklist Patient Identification Patient Identification: Arm Band and Verbal (Name & ) Structural Data Admitted From: Home Planned Operative Procedure/s: PAC placement Consent for Planned Operative Procedure(s) Verified: Yes NPO Status Verified Time NPO: 00:00 Additional verifications Anesthesia Reactions: No Hx Blood Transfusions: No Blood Transfusion Reaction: No Airway Assessment Mallampati Score:: Class II C-Spine Mobility Assessed: Yes TMJ Mobility Assessed: Yes Dentition: Poor Dentition Anesthesia Plan Anesthesia Risk discussed: Yes Anesthesia Plan: Verified ASA Class: III Anesthesia Type: General
--- NOTE | 2023-08-18 09:52 | XR_ITS ---
FINAL REPORT CLINICAL HISTORY: PORT A CATH FINDINGS: A single fluoroscopic view of the chest was obtained for port placement. 0.32 seconds of fluoroscopy time was reported. mGy: 13.45 IMPRESSION: 32 seconds of fluoroscopy time. mGy:13.45 Reviewed, Interpreted and Dictated by Diogo Rose MD Transcribed by Zuly Fowler Authenticated and [facility]
--- NOTE | 2023-08-18 09:57 | EXP.OP.NOTE ---
Date of procedure: 08/18/23 Pre-op Diagnosis:: Need for soon on permanent reliable venous access Post-op Diagnosis:: Same Procedure performed:: Placement of open and single-lumen 8 [place] venous access device right subclavian vein with implantable reservoir port (PowerPort) using fluoroscopy Surgeon:: Jorge Fox MD Anesthesia: LMA Estimated blood loss (mL): 10 Operative findings:: Scar tissue from previous port placement Operative note:: Consent was obtained patient was taken to the operating room. She was given preoperative intravenous antibiotics. In the operating room she was placed in a supine position and general anesthesia was induced via LMA. Upper chest and neck were prepped and draped in the standard surgical fashion bilaterally. She was positioned in Trendelenburg position. Local anesthetic was infiltrated inferior to the right clavicle. 18 [place] needle was inserted manipulating the needle posterior to the right clavicle to cannulate the right subclavian vein. Some minimal repositioning of the needle was performed to allow for passage of guidewire. Guidewire was inserted. Fluoroscopy was used to confirm appropriate position. Dilator with breakaway sheath was inserted. Catheter was inserted which required some manipulation of the sheath and fluoroscopy was used to confirm appropriate position of the catheter. Catheter was manipulated to approximately 12 cm to allow the tip of the catheter near the atriocaval junction confirmed by fluoroscopy. Patient was then taken out of Trendelenburg position. Small incision was made at the guidewire insertion site. Skin was marked with a skin marker for planned subcutaneous tunneling and subcutaneous pocket. Local anesthetic was infiltrated. Skin incision was made for subcutaneous pocket. Electrocautery was used to create inferior subcutaneous pocket. Catheter was then tunneled subcutaneously. Fluoroscopy was used to confirm the appropriate position of the catheter once again. It was cut to the appropriate length. Catheter was secured to the reservoir port. [place] port was sutured into the subcutaneous pocket using 2-0 PDS suture. Port aspirated and flushed with saline without difficulty. Fluoroscopy revealed good position and tracking of the catheter. Catheter was flushed with heparinized saline. There was good hemostasis. Deep dermal tissues were closed with a running 2-0 Vicryl. Both skin incisions were closed with 4-0 Monocryl in a subcuticular fashion. Clean dry sterile dressing was applied. Condition: stable Disposition: PACU Complications:: None immediate
--- NOTE | 2023-08-18 10:13 | EXP.ANES.I ---
[facility] Anesthesia Record Part I Anesthesia Record I Intake, IV Amount: 250 Hydration: Adequate Estimated blood loss (mL): 2 Urine output (mL): 0 Blood Products used (#): none Blood Pressure: 149/81 SaO2: 99 Pulse Rate: 76 Airway Patency: Patent Respiratory Rate: 18 Temperature: 97.5 F Patient is:: Drowsy and Stable Stable to PACU at:: 10:00
[2023-08-18 10:19] LABS: POC Glucose,Bedside 116 (70-110)
--- NOTE | 2023-08-19 07:22 | P.PNANES_ITS ---
[facility] Anesthesia Record Part II Anesthesia Record Part II Discharge Time: 10:30 Destination: Surgical Day Care (OP Surgery) PACU nurse assessment reviewed?: Yes Patient Condition:: Good Anesthesia Complications:: None Swallowing reflex intact?: Yes Airway Patency: Patent Cyanosis?: No Blood Pressure: 113/79 SaO2: 96 Respiratory Rate: 17 Pulse Rate: 73 Temperature: 97.6 F Mental Status: Alert & Oriented Pain level:: 0 Nausea and/or vomitting:: None Intake, IV Amount: 0 Hydration: Adequate
[2023-08-19 07:24] VITALS: BP 113/79; PULSE 73; RESP 17; TEMP 36.4; O2SAT 96
[2023-08-19 07:49] LABS: POC Glucose,Bedside 132 (70-110)
== END 2023-08-18 11:16 | disposition home or self-care (01) ==
PROVIDERS: PCP Family Medicine; Visit Provider Surgery
DX: Z92.89 Personal history of other medical treatment; I87.8 Other specified disorders of veins; K86.1 Other chronic pancreatitis; J44.9 Chronic obstructive pulmonary disease, unspecified; E11.9 Type 2 diabetes mellitus without complications; E78.5 Hyperlipidemia, unspecified; I20.9 Angina pectoris, unspecified
CPT/HCPCS: 36561; 77001; 71045; 76000; 82962; 96374; C1788; J1642; J2405

== ENCOUNTER 2023-08-26 14:31 | Emergency (ER) | payer MEDICARE, MEDICAID, SELFPAY ==
[2023-08-26] VITALS (11 sets, daily range): BP systolic 91–168; BP diastolic 44–94; PULSE 74–146; RESP 16–22; TEMP 36.6; O2SAT 92–99; BMI 38.2
--- NOTE | 2023-08-26 15:53 | HMH.EDGENADL ---
Discharge Plan Disposition Patient Disposition: Left Against Medical Advice Prescriptions Prescriptions: No Action omeprazole 40 mg capsule,delayed release(DR/EC) 40 mg PO DAILY oxycodone 5 mg tablet 5 mg PO Q8H PRN (Reason: pain) Qty: 21 0RF alprazolam 1 mg tablet 1 mg PO TIDP PRN (Reason: Anxiety) Qty: 90 3RF trazodone 100 mg tablet 100 mg PO DAILY Qty: 90 3RF metformin 500 mg tablet extended release 24 hr See Rx Instructions .ROUTE .COMPLEX Qty: 180 0RF Dose Instruction: TAKE ONE TABLET BY MOUTH TWICE DAILY Rx Instructions: TAKE ONE TABLET BY MOUTH TWICE DAILY montelukast 10 mg tablet 10 mg PO PM levothyroxine 100 mcg tablet 100 mcg PO DAILY potassium chloride 10 mEq tablet extended release 10 meq PO DAILY Xarelto 20 mg tablet 20 mg PO QPMWITHMEAL Brilinta 90 mg tablet 90 mg PO BID atorvastatin 40 mg tablet 40 mg PO HS ropinirole 0.25 mg tablet 0.25 mg PO HS Rx Instructions: administer 1-3 hours before bedtime nitroglycerin 0.4 mg tablet, sublingual 0.4 mg sublingual Q5MINP PRN (Reason: chest pain) Rx Instructions: do not exceed 3 doses per episode metoprolol succinate 25 mg tablet extended release 24 hr 25 mg PO DAILY albuterol sulfate 90 mcg/actuation HFA aerosol inhaler 2 inh IH Q4HP PRN (Reason: Shortness Of Breath Or Wheezing) duloxetine 60 mg capsule,delayed release(DR/EC) 60 mg PO DAILY 30 Days Qty: 0 0RF lisinopril 20 mg tablet 10 mg PO DAILY 30 Days Qty: 0 0RF gabapentin 300 MG capsule 300 mg PO BID Qty: 60 2RF oxycodone-acetaminophen 5-325 mg tablet 1 tab PO Q8H PRN (Reason: pain) Qty: 11 0RF isosorbide mononitrate 30 MG tablet extended release 24 hr 30 mg PO DAILY albuterol sulfate 2.5 mg /3 mL (0.083 %) solution for nebulization 2.5 mg inhalation Q6H Premarin 0.3 mg tablet 0.3 mg PO DAILY quetiapine 50 mg tablet 50 mg PO HS nystatin 100,000 unit/gram powder 1 applic topical TID Referrals Follow up/Referrals: Juan C Colón MD [Primary Care Provider] - See instructions Activity Restrictions/Add. Instructions Additional Instructions/Restrictions: At this time it was felt you are safe to be discharged home. If new or worsening symptoms please do not hesitate to return the emergency department. If symptoms persist please follow-up with your family doctor as you are able. Clinical Impressions Clinical Impression: Chronic pancreatitis, Abdominal pain Instructions Patient Instructions: DI for Acute Abdominal Pain Discharge ED Provider: Nicolas Armendariz General Adult HPI General Chief complaint: Abdominal Pain Stated complaint: stomach pain Time Seen by Provider: 08/26/23 15:09 Mode of Arrival: Wheelchair Source of Information: Patient Limitations: No Limitations Description of Symptoms (Recalled from ER Triage Doc. by RN): Presents to ED with complaints diarrhea since yesterday as well as sharp epigastric pain that radiates into her back. Patient reports nausea but has been taking her PRN Pheneregan with no relief. Reports no appetite. Last normal Bm was friday. Denies fever History of Present Illness HPI narrative: Patient has a history of pancreas divisum with intermittent chronic pancreatitis who presents emergency department for evaluation of epigastric pain. Onset was acute, over the last 24 to 48 hours. Initially began as nonbloody diarrhea however this has developed an epigastric pain with associated nausea that is responsive to Phenergan. Due to pain she presents here for continued evaluation. Patient states that she has had flares of her pancreatitis every 6 months since and feels the same as her previous flares. Patient has no atypical complaints at this time. Related Data Home Medications Medication Instructions Recorded Confirmed isosorbide mononitrate 30 mg 30 mg PO DAILY High blood pressure
--- NOTE | 2023-08-26 16:28 | PC.NURSE ---
Rounded on patient call light within reach.
[2023-08-26 16:40] LABS: Basophils % 0.3 % (0.1-2.0); Eosinophils # 0.4 K/mm3 (0.0-0.4); Eosinophils % 3.6 % (0.1-12.0); Hematocrit 34.5 % (37.0-47.0); Hemoglobin 10.4 g/dL (12.2-16.2); Lymphocytes % 29.1 % (10-50); Mean Corpuscular Hemoglobin 24.9 pg (27.0-31.2); Mean Corpuscular Volume 82.8 fl (81-99); Mean Platelet Volume 8.9 fl (7.4-10.4); Monocytes # 0.6 K/mm3 (0.1-1.0); Monocytes % 5.4 % (1.7-9.3); Neutrophils # 6.4 K/mm3 (1.8-7.8); Neutrophils % 61.5 % (37.0-80.0); Platelet Count 425 K/mm3 (142-424); Red Blood Count 4.17 M/mm3 (4.20-5.40); Red Cell Distribution Width 16.5 % (11.5-17.5); White Blood Count 10.4 K/mm3 (4.8-10.8)
[2023-08-26 16:53] LABS: Alanine Aminotransferase 24 U/L (12-78); Albumin Level 3.8 g/dl (3.5-5.0); Albumin/Globulin Ratio 1.1 (1.1-1.8); Alkaline Phosphatase 154 U/L (38-126); Anion Gap 13.1 mEq/L (5-15); Aspartate Amino Transferase 30 U/L (14-36); Bilirubin,Total 0.5 mg/dl (0.2-1.3); Blood Urea Nitrogen 11 mg/dl (7-17); Calcium 8.5 mg/dl (8.4-10.2); Carbon Dioxide 27 mmol/L (22.0-30.0); Chloride 101 mmol/L (98-107); Creatinine Clearance Estimated 99 mL/min (50-200); Estimated Glomerular Filt Rate 63 ml/min (>60); GFR (African American) 77 ML/MIN (>60); Globulin 3.4 g/dL (1.3-3.2); Glucose 101 mg/dl (74-100); Lipase 118 U/L (23-300); Potassium 4.1 mmoL/L (3.5-5.1); Sodium 137 mmol/L (136-145); Total Protein,Serum 7.2 g/dl (6.3-8.2)
--- NOTE | 2023-08-26 17:45 | PC.NURSE ---
Rounded on patient; pt given a cold wash cloth for comfort.
[2023-08-26 18:35] LABS: Appearance,Urine CLEAR (Clear); Bilirubin,Urine Negative (Negative); Blood, Urine Negative (Negative); Color,Urine YELLOW (Yellow); Glucose,Urine (UA) Negative (Negative); Ketones,Urine Negative (Negative); Leukocyte Esterase,Urine Negative (Negative); Microscopic, Urine URINE MICROSCOPIC (MICROSCOPIC); Nitrate,Urine Negative (Negative); Protein,Urine Negative (Negative); Specific Gravity, Urine <= 1.005 (1.005-1.030); Urobilinogen,Urine 0.2 EU/dl (0.2)
--- NOTE | 2023-08-26 18:37 | PC.NURSE ---
Rounded on patient; nothing needed at this time. Call light within reach
--- NOTE | 2023-08-26 19:04 | PC.NURSE ---
pt given water for PO challenge
--- NOTE | 2023-08-26 20:08 | PC.NURSE ---
Patient BP and HR u mary D/C was 81/62 HR 63. MD notified of BP MD instructed to get a Repeat BP. MD @ BS for BP of 91/44 and a HR of 146. MD instructed patient that he did not feel comfortable sending patient home with her being hypotensive and with a HR of 146. Patient verbalized understanding that having a HR that high and BP that low is very dangerous and patient is still refusing to stay. MD at bedside aware. Patient stated she will come back if she feels worse.
== END 2023-08-26 19:47 | disposition left against medical advice (07) ==
PROVIDERS: Emergency Provider Emergency Medicine; PCP Family Medicine
DX: K86.1 Other chronic pancreatitis (principal); R10.13 Epigastric pain; F41.9 Anxiety disorder, unspecified; F32.A Depression, unspecified; J44.9 Chronic obstructive pulmonary disease, unspecified; I20.0 Unstable angina
CPT/HCPCS: 80053; 81001; 83690; 85025; 96361; 96374; 96375; 96376; 99285; J0131; J1642; J2405

== ENCOUNTER 2023-10-21 13:26 | Day surgery (SDC) | payer MEDICARE, MEDICAID, SELFPAY ==
[2023-10-21 13:41] VITALS: BP 133/64; PULSE 74; RESP 16; TEMP 36.7; O2SAT 95; BMI 33.9
[2023-10-21 13:56] VITALS: BP 135/82; PULSE 81; O2SAT 93
[2023-10-21 14:02] VITALS: BP 135/82; PULSE 74; O2SAT 92
--- NOTE | 2023-10-21 14:03 | EXP.PAIN.PRO ---
Procedure Date: 10/21/23 Time: 13:50 Anesthesiologist:: Josue Tristan CRNA Complications:: None Pre-procedure Diagnosis:: Degenerative disc lumbar spine multilevels. Lumbar radiculopathy. Post-procedure Diagnosis:: Same. Indications for Procedure:: Patient is a very pleasant 63-year-old female comes our clinic today for intrathecal pain pump interrogation refill. Patient is currently being managed with bupivacaine 20 mg/mL. Her intrathecal pain pump rate is 2.75 mg/day. She does not report any side effects or complications. She is doing very well with her current settings. Procedure Details:: Details of the procedure explained to the patient. The patient taken to procedure room placed in the sitting position. The area of the pump was cleansed using chlorhexidine's cleansing solution. The pump was interrogated. The pump was accessed with ease using a 22-gauge inch and half needle. 8.5 mL of solution was withdrawn and discarded appropriately. The pump was then filled with 20 cc of a solution containing bupivacaine 20 mg/mL. The rate will continue at 2.75 mg/day. Patient tolerated procedure without difficulty. There are no complications. Plan and Disposition:: Patient was discharged without incident.
[2023-10-21 14:11] VITALS: BP 159/89; PULSE 67; RESP 16; O2SAT 95
== END 2023-10-21 14:11 | disposition home or self-care (01) ==
PROVIDERS: PCP Family Medicine; Visit Provider Nurse Anesthetist, Certified Registered
DX: M51.16 Intervertebral disc disorders with radiculopathy, lumbar region (principal); Z97.8 Presence of other specified devices
CPT/HCPCS: 95991

== ENCOUNTER 2023-11-04 17:13 | Emergency (ER) | payer MEDICARE, MEDICAID, SELFPAY ==
[2023-11-04 17:14] VITALS: BP 145/99; PULSE 80; RESP 20; TEMP 36.9; O2SAT 98; BMI 36.3
[2023-11-04 18:01] VITALS: BP 146/84; PULSE 76; O2SAT 98
--- NOTE | 2023-11-04 18:07 | XR_ITS ---
PROCEDURE INFORMATION: Exam: XR Chest Exam date and time: 11/04/2023 6:34 PM Age: 63 years old Clinical indication: Dyspnea TECHNIQUE: Imaging protocol: Radiologic exam of the chest. Views: 1 view. COMPARISON: CR XR CHEST AP 08/18/2023 9:45 AM FINDINGS: Tubes, catheters and devices: I subclavian infusion port in place with the tip in the superior vena cava. Lungs: Unremarkable. No consolidation. Pleural spaces: Unremarkable. No pleural effusion. No pneumothorax. Heart/Mediastinum: Unremarkable. No cardiomegaly. Bones/joints: Old, healed right rib fractures. No acute fracture. Mild degenerative changes of the spine and shoulders noted. Orthopedic plate noted in the lower cervical spine. IMPRESSION: No acute abnormality
--- NOTE | 2023-11-04 18:12 | HMH.EDGENADL ---
Discharge Plan Disposition Patient Disposition: Home, Self-Care Prescriptions Prescriptions: No Action omeprazole 40 mg capsule,delayed release(DR/EC) 40 mg PO DAILY oxycodone 5 mg tablet 5 mg PO Q8H PRN (Reason: pain) Qty: 21 0RF alprazolam 1 mg tablet 1 mg PO TIDP PRN (Reason: Anxiety) Qty: 90 3RF trazodone 100 mg tablet 100 mg PO DAILY Qty: 90 3RF metformin 500 mg tablet extended release 24 hr See Rx Instructions .ROUTE .COMPLEX Qty: 180 0RF Dose Instruction: TAKE ONE TABLET BY MOUTH TWICE DAILY Rx Instructions: TAKE ONE TABLET BY MOUTH TWICE DAILY promethazine 25 mg tablet 25 mg PO TID PRN (Reason: nausea and vomiting) Qty: 30 5RF Xarelto 20 mg tablet See Rx Instructions .ROUTE .COMPLEX Qty: 30 2RF Dose Instruction: TAKE 1 TABLET orally daily must administer with evening meal Rx Instructions: TAKE 1 TABLET orally daily must administer with evening meal quetiapine 50 mg tablet See Rx Instructions .ROUTE .COMPLEX Qty: 90 0RF Dose Instruction: take 1 tablet by mouth at bedtime nightly for sleep Rx Instructions: take 1 tablet by mouth at bedtime nightly for sleep levothyroxine 100 mcg tablet See Rx Instructions .ROUTE .COMPLEX Qty: 30 3RF Dose Instruction: Take 1 tablet by mouth Every Morning. Rx Instructions: Take 1 tablet by mouth Every Morning. penicillin V potassium 500 mg tablet 500 mg PO TID Qty: 30 0RF Premarin 0.3 mg tablet See Rx Instructions .ROUTE .COMPLEX Qty: 30 0RF Dose Instruction: take 1 tablet (0.3 mg) orally daily for Hormone Replacement Rx Instructions: take 1 tablet (0.3 mg) orally daily for Hormone Replacement montelukast 10 mg tablet 10 mg PO PM potassium chloride 10 mEq tablet extended release 10 meq PO DAILY Brilinta 90 mg tablet 90 mg PO BID atorvastatin 40 mg tablet 40 mg PO HS ropinirole 0.25 mg tablet 0.25 mg PO HS Rx Instructions: administer 1-3 hours before bedtime nitroglycerin 0.4 mg tablet, sublingual 0.4 mg sublingual Q5MINP PRN (Reason: chest pain) Rx Instructions: do not exceed 3 doses per episode metoprolol succinate 25 mg tablet extended release 24 hr 25 mg PO DAILY albuterol sulfate 90 mcg/actuation HFA aerosol inhaler 2 inh IH Q4HP PRN (Reason: Shortness Of Breath Or Wheezing) duloxetine 60 mg capsule,delayed release(DR/EC) 60 mg PO DAILY 30 Days Qty: 0 0RF lisinopril 20 mg tablet 10 mg PO DAILY 30 Days Qty: 0 0RF oxycodone-acetaminophen 5-325 mg tablet 1 tab PO Q8H PRN (Reason: pain) Qty: 11 0RF isosorbide mononitrate 30 MG tablet extended release 24 hr 30 mg PO DAILY albuterol sulfate 2.5 mg /3 mL (0.083 %) solution for nebulization 2.5 mg inhalation Q6H gabapentin 600 mg tablet 600 mg PO BID Qty: 60 2RF Referrals Follow up/Referrals: Ross Ham MD [Primary Care Provider] - See instructions Activity Restrictions/Add. Instructions Additional Instructions/Restrictions: No emergent medical condition identified today. Specifically no evidence of any pneumonia flu and COVID were negative your work-up was otherwise unremarkable. Please take your Phenergan that you have at home and push fluids by mouth at home return with any worsening symptoms. Clinical Impressions Clinical Impression: Nausea vomiting and diarrhea Discharge ED Provider: Zhen Reyes General Adult HPI General Chief complaint: Weakness Stated complaint: vomitting, diarhhea, weakness Time Seen by Provider: 11/04/23 17:59 Mode of Arrival: Ambulatory Source of Information: Patient Limitations: No Limitations Description of Symptoms (Recalled from ER Triage Doc. by RN): weak, n/v/d intermittently over 3 week period but has increased over last 3-4 days; SOA, History of Present Illness HPI narrative: Patient is a 63-year-old female presenting today with numerous complaint
[2023-11-04 18:35] LABS: Chloride 102 mmol/L (98-107); Potassium 3.7 mmoL/L (3.5-5.1); Sodium 138 mmol/L (136-145)
[2023-11-04 18:37] LABS: Alanine Aminotransferase 22 U/L (12-78); Aspartate Amino Transferase 31 U/L (14-36); Blood Urea Nitrogen 7 mg/dl (7-17); Creatinine Clearance Estimated 93 mL/min (50-200); Estimated Glomerular Filt Rate 72 ml/min (>60); GFR (African American) 88 ML/MIN (>60)
[2023-11-04 18:38] LABS: Albumin Level 3.8 g/dl (3.5-5.0); Albumin/Globulin Ratio 1.2 (1.1-1.8); Alkaline Phosphatase 178 U/L (38-126); Anion Gap 9.7 mEq/L (5-15); Bilirubin,Total 0.5 mg/dl (0.2-1.3); Carbon Dioxide 30 mmol/L (22.0-30.0); Globulin 3.2 g/dL (1.3-3.2); Glucose 113 mg/dl (74-100)
[2023-11-04 18:40] LABS: Basophils % 0.2 % (0.1-2.0); Eosinophils # 0.4 K/mm3 (0.0-0.4); Eosinophils % 3.1 % (0.1-12.0); Hematocrit 33.2 % (37.0-47.0); Hemoglobin 9.8 g/dL (12.2-16.2); Lymphocytes # 2.7 K/mm3 (0.7-4.5); Lymphocytes % 22.4 % (10-50); Mean Corpuscular HGB Conc 29.4 g/dL (31.8-35.4); Mean Corpuscular Volume 81.7 fl (81-99); Mean Platelet Volume 9.1 fl (7.4-10.4); Monocytes # 0.5 K/mm3 (0.1-1.0); Monocytes % 4.2 % (1.7-9.3); Neutrophils # 8.5 K/mm3 (1.8-7.8); Neutrophils % 70.1 % (37.0-80.0); Platelet Count 415 K/mm3 (142-424); Red Blood Count 4.07 M/mm3 (4.20-5.40); Red Cell Distribution Width 16.8 % (11.5-17.5); White Blood Count 12.1 K/mm3 (4.8-10.8)
[2023-11-04 18:47] LABS: NT Pro Brain Natriuretic Pep. 881 pg/mL (0-125)
--- NOTE | 2023-11-04 19:20 | PC.NURSE ---
Lab unsuccessful in attempt to collect 2nd set of blood cultures at this time. Lab will attempt recollection.
[2023-11-04 19:27] LABS: Lipase 310 U/L (23-300)
[2023-11-04 19:28] LABS: Magnesium 1.5 mg/dl (1.6-2.3)
--- NOTE | 2023-11-04 19:31 | PC.NURSE ---
COVID swab obtained and sent to lab
[2023-11-04 19:54] LABS: Lactic Acid 2.3 mmol/L (0.7-2.1)
[2023-11-04 20:11] LABS: Coronavirus 19, PCR Not Detected (NotDetected); Influenza A, PCR Not Detected (NotDetected); Influenza B, PCR Not Detected (NotDetected)
[2023-11-04 20:33] VITALS: BP 146/84; PULSE 77; RESP 20; TEMP 36.7; O2SAT 99
== END 2023-11-04 20:35 | disposition home or self-care (01) ==
PROVIDERS: Emergency Provider Student in an Organized Health Care Education/Training Program; PCP Internal Medicine
DX: R11.2 Nausea with vomiting, unspecified (principal); R19.7 Diarrhea, unspecified; R06.02 Shortness of breath; J44.9 Chronic obstructive pulmonary disease, unspecified; E11.9 Type 2 diabetes mellitus without complications; E78.5 Hyperlipidemia, unspecified; I20.9 Angina pectoris, unspecified; Z86.73 Personal history of transient ischemic attack (TIA), and cerebral infarction without residual deficits; Z87.891 Personal history of nicotine dependence
CPT/HCPCS: 71045; 80053; 83605; 83690; 83735; 83880; 84100; 85025; 87040; 87636; 96374; 96375; 99285; J0131; J1642; J2405

== ENCOUNTER 2024-01-06 13:21 | Day surgery (SDC) | payer MEDICARE, MEDICAID, SELFPAY ==
[2024-01-06 13:30] VITALS: BP 171/114; PULSE 103; RESP 18; TEMP 36.2; O2SAT 97; BMI 38.4
[2024-01-06 13:40] VITALS: BP 141/85; PULSE 63; RESP 18; O2SAT 96
[2024-01-06 13:45] VITALS: BP 177/113; PULSE 98; RESP 18; O2SAT 97
--- NOTE | 2024-01-06 13:46 | EXP.PAIN.PRO ---
Procedure Date: 01/06/24 Time: 13:40 Anesthesiologist:: Josue Tristan CRNA Complications:: None Pre-procedure Diagnosis:: Degenerative disc lumbar spine multilevels. Lumbar radiculopathy. Post-procedure Diagnosis:: Same. Indications for Procedure:: Patient is a very pleasant 63-year-old female comes to clinic today for intrathecal pain pump interrogation and reprogramming. Patient is currently being managed with bupivacaine 20 mg/mL rate of 2.75 mg/day. She doing very well with her current settings. She is not reporting side effects or complications. She does not request any changes. Procedure Details:: Details of the procedure explained to the patient. The patient taken procedure and placed in sitting position. The area over the pump is cleansed using chlorhexidine's cleansing solution. The pump was interrogated. The pump was accessed with ease using a 20-gauge inch and a half needle. 8 mL of solution was withdrawn discarded appropriate. The pump was then filled with 20 cc of solution containing 20 mg/mL bupivacaine. The pump will continue at 2.75 mg/day. Patient tolerated procedure without difficulty. There are no complications. Plan and Disposition:: Patient was discharged without incident.
[2024-01-06 13:49] VITALS: BP 141/85; PULSE 63; RESP 19; O2SAT 96
== END 2024-01-06 13:45 | disposition home or self-care (01) ==
PROVIDERS: PCP Internal Medicine; Visit Provider Nurse Anesthetist, Certified Registered
DX: M51.16 Intervertebral disc disorders with radiculopathy, lumbar region (principal); Z97.8 Presence of other specified devices; Z45.1 Encounter for adjustment and management of infusion pump
CPT/HCPCS: 62368

== ENCOUNTER 2024-03-15 15:12 | Outpatient (CLI) | payer MEDICARE, MEDICAID, SELFPAY ==
[2024-03-15 15:42] LABS: Basophils # 0.1 K/mm3 (0-0.2); Eosinophils # 0.4 K/mm3 (0.0-0.4); Eosinophils % 2.8 % (0.1-12.0); Hematocrit 33.9 % (37.0-47.0); Hemoglobin 9.8 g/dL (12.2-16.2); Lymphocytes # 3.9 K/mm3 (0.7-4.5); Lymphocytes % 29.5 % (10-50); Mean Corpuscular HGB Conc 28.9 g/dL (31.8-35.4); Mean Corpuscular Hemoglobin 21.6 pg (27.0-31.2); Mean Corpuscular Volume 74.7 fl (81-99); Monocytes # 0.6 K/mm3 (0.1-1.0); Monocytes % 4.3 % (1.7-9.3); Neutrophils # 8.3 K/mm3 (1.8-7.8); Neutrophils % 62.4 % (37.0-80.0); Platelet Count 430 K/mm3 (142-424); Red Blood Count 4.53 M/mm3 (4.20-5.40); Red Cell Distribution Width 18.8 % (11.5-17.5); White Blood Count 13.4 K/mm3 (4.8-10.8)
[2024-03-15] MEDS: SODIUM CHLORIDE 0.9% 10ML FLUSH SYRINGE 10 ML IV (15:52)
[2024-03-15 17:02] LABS: Anion Gap 13.7 mEq/L (5-15); Blood Urea Nitrogen 16 mg/dl (7-17); Calcium 9.3 mg/dl (8.4-10.2); Carbon Dioxide 25 mmol/L (22.0-30.0); Chloride 103 mmol/L (98-107); Estimated Glomerular Filt Rate 63 ml/min (>60); GFR (African American) 77 ML/MIN (>60); Glucose 111 mg/dl (74-100); Potassium 4.7 mmoL/L (3.5-5.1); Sodium 137 mmol/L (136-145)
[2024-03-15 17:18] LABS: Free T4 (Free Thyroxine) 1.31 ng/dl (0.78-2.19)
[2024-03-15 17:33] LABS: Thyroid Stimulating Hormone 1.52 uIU/mL (0.465-4.68)
== END 2024-03-15 15:45 | disposition home or self-care (01) ==
LOC: LAB 15:13
PROVIDERS: PCP Family Medicine; Visit Provider Nurse Practitioner
DX: I48.0 Paroxysmal atrial fibrillation (principal); Z79.899 Other long term (current) drug therapy
CPT/HCPCS: 36591; 80048; 84439; 84443; 85025; J1642

== ENCOUNTER 2024-03-16 17:35 | Observation (INO) | payer MEDICARE, MEDICAID, SELFPAY ==
[2024-03-16] VITALS (7 sets, daily range): BP systolic 97–180; BP diastolic 71–110; PULSE 88–145; RESP 14–23; TEMP 36.7; O2SAT 95–99; BMI 33.5
--- NOTE | 2024-03-16 17:53 | HMH.EDGENADL ---
Discharge Plan Disposition Patient Disposition: Admitted Condition: Fair Clinical Impressions Clinical Impression: Pancreatitis Discharge ED Provider: Sumit Rolon General Adult HPI General Chief complaint: Abdominal Pain Stated complaint: abd pain vomiting soa Time Seen by Provider: 03/16/24 17:53 History of Present Illness HPI narrative: Patient presents for evaluation of epigastric abdominal pain that radiates to the back, associated nausea, vomiting, diarrhea, gradual in onset starting over the past 48 hours, constant, worsening, has had similar symptoms in the past associated with reported chronic pancreatitis in the setting of pancreatic divisum. She reports history of pancreatic stents. She denies any fevers or chills or urinary symptoms. Denies any overt chest pain, she has had difficulty tolerating p.o. intake. Previous therapies include p.o. analgesia [id number] with no improvement of symptoms. She states she has had similar symptoms in the past requiring hospitalization. No sick contacts, no recent travel, no back pain Please note that above description of symptoms, in this electronic medical record under categorization of recalled from ER triage doctor by RN are reflective of an initial nursing assessment, however, is not reflective of my full history and physical exam that was personally taken and clarified. Consequentially, this preceding description of symptoms, which may include the patient's categorized chief complaint in the EMR, do not reflect my personal clinical impression, and the ultimate description of history of present illness and patient stated complaints should be deferred to this section of the note. Unless stated otherwise or congruent with this section of the note, additional signs, symptoms, or incongruence should be interpreted as inaccurate with my clinical impression. Related Data Home Medications Medication Instructions Recorded Confirmed isosorbide mononitrate 30 mg 30 mg PO DAILY High blood pressure 10/24/21 03/16/24 tablet,extended release 24 hr albuterol sulfate 2.5 mg/3 mL 2.5 mg inhalation Q6H Breathing 04/01/23 03/16/24 (0.083 %) solution for nebulization Problems omeprazole 40 mg capsule,delayed 40 mg PO DAILY Acid Reflux 04/08/23 03/16/24 release potassium chloride 10 mEq 10 meq PO DAILY Supplement 06/09/23 03/16/24 tablet,extended release albuterol sulfate 90 mcg/actuation 2 inh inhalation Q4HP PRN 07/13/23 03/16/24 aerosol inhaler Shortness Of Breath Or Wheezing atorvastatin 40 mg tablet 40 mg PO HS Cholesterol 07/13/23 03/16/24 nitroglycerin 0.4 mg sublingual 0.4 mg sublingual Q5MINP PRN chest 07/13/23 03/16/24 tablet pain promethazine 25 mg tablet 25 mg PO TID PRN Nausea And 03/16/24 03/16/24 Vomiting Previous Rx's Medication Instructions Recorded duloxetine 60 mg capsule,delayed 60 mg PO DAILY Mood 30 days #0 caps 07/14/23 release trazodone 100 mg tablet 100 mg PO DAILY #90 tabs 08/22/23 levothyroxine 100 mcg tablet See Rx Instructions .Route 09/26/23 .COMPLEX #30 tabs penicillin V potassium 500 mg 500 mg PO TID #30 tabs 10/10/23 tablet losartan 50 mg tablet 50 mg PO DAILY #90 tabs 11/06/23 montelukast 10 mg tablet See Rx Instructions .Route 11/28/23 .COMPLEX #90 tabs gabapentin 600 mg tablet 600 mg PO BID #60 tabs 12/24/23 quetiapine 50 mg tablet See Rx Instructions .Route 12/25/23 .COMPLEX #90 tabs alprazolam 1 mg tablet 1 mg PO BID PRN Anxiety #60 tabs 01/09/24 conjugated estrogens 0.3 mg tablet See Rx Instructions .Route 01/09/24 (Premarin) .COMPLEX #30 tabs metformin 1,000 mg tablet 1,000 mg PO BID #180 tabs 01/09/24 rivaroxaban 20 mg tablet (Xarelto) See Rx Instructions .Route 01/15/24 .COMPLEX #90 tabs ticagrelor 90 mg tablet (Brilinta) See Rx Instructions .Route 01/23/24 .COMPLEX #60 tabs ropinirole 0.25 mg tablet 0.25 mg PO HS Restless Leg(S) #30 02/18/24 tabs metoprolol succinate 25 mg 25 mg PO DAILY High Blood Pressure 03/15/24 tablet,extended release 24 hr #90 tabs Allergies Allergy/AdvReac Type Severity Reaction Status Date / Time codeine [CODEINE] Allergy Intermediate N/V Verified 03/15/24 14:06 ketorolac [KETOROLAC] Allergy Intermediate Hives Verified 03/15/24 14:06 meperidine [MEPERIDINE] Allergy Intermediate Hives Verified 03/15/24 14:06 tramadol [TRAMADOL] Allergy Intermediate Hives Verified 03/15/24 14:06 verapamil Allergy Mild Unknown Verified 03/15/24 14:06 allergy reaction ciprofloxacin AdvReac Severe Interacts Verified 03/15/24 14:06 with cymbalta [facility] Disclaimer: The information contained in this section may have been updated after the patient was seen, as this information can be updated by other users. Medical History COPD (chronic obstructive pulmonary disease) HLD (hyperlipidemia) Diabetes Anxiety and depression TIA (transient ischemic attack) History of stroke History of multiple cerebrovascular accidents (CVAs) History of class III angina pectoris Unstable angina Typical angina Dyspnea History of pancreatitis History of CVA (cerebrovascular accident) Surgical History History of biliary duct stent placement History of hysterectomy History of cholecystectomy History of coronary artery stent placement Family History Other Family history of cancer Family history of diabetes mellitus Social History Smoking Status: Former smoker tobacco type: cigarettes packs per day: 1 second hand exposure: No alcohol intake: never counseling provided: none substance use type: marijuana and crack/cocaine current occupational status: retired and other Travel in the last 8 weeks: None household members: spouse housing: house number of children: 2 current occupational exposures/hazards: No caffeine: Yes ROS Obtained: Yes Systems reviewed as appropriate & no additional complaints except as documented As per HPI Physical Exam General General appearance: alert and in distress Head Head exam: atraumatic and normocephalic Eye Eye exam: Present normal appearance Neck Neck exam: Present normal inspection Chest Chest inspection: Present normal inspection and symmetric chest wall rise Respiratory Respiratory exam: Present normal lung sounds bilaterally; Absent respiratory distress Cardiovascular Cardiovascular exam: Present regular rate and normal rhythm Abdominal Exam Abdominal exam: Present soft Abdominal tenderness: Present epigastrium and severe Neurological Exam Neurological exam: Present alert and oriented X3 Psychiatric Psychiatric exam: Present normal affect and normal mood Skin Skin exam: Present warm and dry Medical Decision Making Medical Records Medical records reviewed: Yes I reviewed the patient's medical records. Delroy Inquiry Pt receiving controlled substance: No Vital Signs: 03/16/24 17:36 03/16/24 19:00 03/16/24 19:31 Temperature 98.0 F Temperature Source Oral Pulse Rate 103 H 139 H Pulse Rate [Right Radial] 90 Respiratory Rate 20 15 23 Blood Pressure 147/105 H 130/83 Blood Pressure [Right Arm] 180/110 H Blood Pressure Mean 98 Blood Pressure Mean [Right Arm] 133 02 Sat by Pulse Oximetry 98 98 98 Oxygen Delivery Method Room Air Room Air Oxygen Flow Rate (LPM) 03/16/24 20:01 03/16/24 20:54 Temperature 98.0 F Temperature Source Pulse Rate 88 128 H Pulse Rate [Right Radial] Respiratory Rate 16 14 Blood Pressure 136/83 97/72 L Blood Pressure [Right Arm] Blood Pressure Mean 92 Blood Pressure Mean [Right Arm] 02 Sat by Pulse Oximetry 99 Oxygen Delivery Method Nasal Cannula Oxygen Flow Rate (LPM) 2 Lab Data Lab Results 03/16/24 18:27: WBC 12.5 H, RBC 4.55, Hgb 9.9 L, Hct 33.9 L, MCV 74.6 L, MCH 21.8 L, MCHC 29.3 L, RDW 19.0 H, Plt Count 479 H, MPV 8.5, Neut % (Auto) 55.1, Lymph % (Auto) 35.4, [place] % (Auto) 5.5, Eos % (Auto) 3.1, Baso % (Auto) 0.9, Neut # (Auto) 6.9, Lymph # (Auto) 4.4, [place] # (Auto) 0.7, Eos # (Auto) 0.4, Baso # (Auto) 0.1, Sodium 137, Potassium 4.6, Chloride 106, Carbon Dioxide 25, Anion Gap 10.6, BUN 21 H D, Creatinine 0.90, Estimated Creat Clear 86, Estimated GFR 63, Est GFR ( Amer) 77, Glucose 112 H, Calcium 8.9, Total Bilirubin 0.5, Direct Bilirubin 0.2, AST 28, ALT 19, Alkaline Phosphatase 162 H, Total Protein 7.2, Albumin 3.8, Globulin 3.4 H, Albumin/Globulin Ratio 1.1, Lipase 228, Urine Color Yellow, Urine Appearance Clear, Urine pH 7.0, Ur Specific [place] 1.010, Urine Protein Negative, Urine Glucose (UA) Negative, Urine Ketones Negative, Urine Blood Negative, Urine Nitrate Negative, Urine Bilirubin Negative, Urine Urobilinogen 0.2, Ur Leukocyte Esterase Negative, Urine RBC None, Urine WBC None, Ur Squamous Epith Cells Occasional, Urine Bacteria None 03/16/24 18:27 03/16/24 18:27 Orders (Tests/Meds): ED MEDICATIONS Generic Name Dose Route Start Last Admin Trade Name Freq PRN Reason Stop Dose Admin Acetaminophen 650 mg 03/16/24 21:17 Acetaminophen 325mg Tab PO 04/15/24 21:16 Q4HP PRN Fever or Mild Pain (1-3) Alprazolam 1 mg 03/16/24 23:05 Alprazolam 1mg Tablet PO 04/15/24 23:04 BID PRN Anxiety Atorvastatin Calcium 40 mg 03/17/24 21:00 Atorvastatin 40mg Tablet PO 04/16/24 20:59 HS CRISTOPHER Gabapentin 600 mg 03/16/24 22:35 03/16/24 22:51 Gabapentin 600mg Tablet PO 04/15/24 22:34 Not Given BID CRISTOPHER Hydromorphone HCl 0.5 mg 03/16/24 21:17 Hydromorphone 2mg/Ml Syringe IV 04/15/24 21:16 Q4HP PRN Severe Pain (7-10) Sodium Chloride 1,000 mls @ 75 mls/hr 03/16/24 21:30 03/16/24 22:09 Sod Chlor 0.9% 1000ml Bag IV 04/15/24 21:29 75 mls/hr .[id number] CRISTOPHER Administration Metronidazole 500 mg in 100 mls @ 100 mls/hr 03/16/24 22:45 03/16/24 22:51 Flagyl 500mg/100ml Ivpb IV 03/26/24 22:44 100 mls/hr Q8H CRISTOPHER Administration Levothyroxine Sodium 0 mcg 03/16/24 22:45 Levothyroxine 100mcg (0.1mg) Tab PO 04/15/24 22:44 .COMPLEX CRISTOPHER Metoprolol Succinate 25 mg 03/16/24 22:35 03/16/24 22:50 Metoprolol Succinate Xl 25mg Tablet PO 04/15/24 22:34 25 mg DAILY CRISTOPHER Administration Metoprolol Tartrate 5 mg 03/16/24 23:05 Metoprolol Tartrate 5mg/5ml Vial IV 04/15/24 23:04 Q6HP PRN Heart Rate- High Nicotine 21 mg 03/16/24 21:17 Nicotine 21mg/24hr Patch TD 04/15/24 21:16 DAILYP PRN Nicotine Cravings Nitroglycerin 0.4 mg 03/16/24 22:34 Nitroglycerin 0.4mg Sl Tablet SL 04/15/24 22:33 Q5MINP PRN chest pain Non-Formulary Medication 1,000 mg 03/17/24 09:00 Metformin PO 04/16/24 08:59 BID CRISTOPHER Non-Formulary Medication 100 mg 03/17/24 09:00 Trazodone PO 04/16/24 08:59 DAILY CRISTOPHER Non-Formulary Medication 60 mg 03/17/24 09:00 Duloxetine PO 04/16/24 08:59 DAILY CRISTOPHER Non-Formulary Medication 0 mg 03/16/24 22:45 Quetiapine .ROUTE 04/15/24 22:44 .COMPLEX CRISTOPHER Non-Formulary Medication 0 mg 03/16/24 22:45 Rivaroxaban [Xarelto] .ROUTE 04/15/24 22:44 .COMPLEX CRISTOPHER Ondansetron HCl 4 mg 03/16/24 21:30 03/16/24 22:10 Ondansetron 4mg/2ml Vial IV 04/15/24 21:29 Not Given Q4H CRISTOPHER Pantoprazole Sodium 40 mg 03/17/24 21:00 Pantoprazole 40mg Vial IV 04/16/24 20:59 HS CRISTOPHER Ropinirole HCl 0.25 mg 03/17/24 21:00 Ropinirole Hcl 0.25 Mg Tablet PO 04/16/24 20:59 HS CRISTOPHER Sodium Chloride 10 ml 03/16/24 21:17 Sodium Chloride 0.9% 10ml Flush Syringe IV 04/15/24 21:16 NEEDED PRN Maintain IV Site Sodium Chloride 10 ml 03/16/24 21:17 Sodium Chloride 0.9% 10ml Vial IV 04/15/24 21:16 NEEDED PRN dilute protonix Ticagrelor 0 mg 03/16/24 22:45 Ticagrelor 90mg Tablet PO 04/15/24 22:44 .COMPLEX CRISTOPHER Discontinued Medications Generic Name Dose Route Start Last Admin Trade Name Freq PRN Reason Stop Dose Admin Enoxaparin Sodium 40 mg 03/17/24 09:00 Enoxaparin 40mg/0.4ml Syringe SQ 04/16/24 08:59 DAILY CRISTOPHER Hydromorphone HCl 0.5 mg 03/16/24 18:00 03/16/24 18:44 Hydromorphone 4 Mg/Ml Syringe IV 03/16/24 18:01 Not Given ONCE ONE Hydromorphone HCl 0.5 mg 03/16/24 18:39 03/16/24 18:54 Hydromorphone 2mg/Ml Syringe IV 03/16/24 18:40 0.5 mg ONCE ONE Administration Hydromorphone HCl 0.5 mg 03/16/24 19:48 03/16/24 19:56 Hydromorphone 4 Mg/Ml Syringe IV 03/16/24 19:49 Not Given ONCE ONE Hydromorphone HCl 0.5 mg 03/16/24 19:54 03/16/24 20:03 Hydromorphone 2mg/Ml Syringe IV 03/16/24 19:55 0.5 mg ONCE ONE Administration Lactated Ringer's 1,000 mls @ 999 mls/hr 03/16/24 18:00 03/16/24 18:37 Lactated Ringer's 1000 Ml Bag IV 03/16/24 19:00 999 mls/hr .Q1H1M ONE Administration Iopamidol 75 ml 03/16/24 19:21 03/16/24 19:22 Iopamidol-370 (76%);100ml Bottle IV 03/16/24 19:22 75 ml ONCE ONE Administration Ondansetron HCl 4 mg 03/16/24 18:00 03/16/24 18:37 Ondansetron 4mg/2ml Vial IV 03/16/24 18:01 4 mg ONCE ONE Administration Sodium Chloride 10 ml 03/16/24 19:21 03/16/24 19:22 Sodium Chloride 0.9% 10ml Syr (Rad Only) IV 03/16/24 19:22 10 ml ONCE ONE Administration ORDERS Category Date Time Status CT abdomen pelvis w con Stat Cat Scan 03/16/24 18:01 Completed Bilirubin,Direct Stat Lab 03/16/24 18:27 Completed CBC w/Auto Diff [Complete Blood Count Auto Diff] Stat Lab 03/16/24 18:27 Completed CMP [Comprehensive Metabolic Panel] Stat Lab 03/16/24 18:27 Completed Lipase Stat Lab 03/16/24 18:27 Completed Medical Decision Narrative: Patient with history and exam per above presenting for evaluation of acute epigastric abdominal pain Diagnoses considered include pancreatitis, gastroparesis, cholangitis, enteritis, low index of suspicion at this time for ACS, PE ED workup and treatment included: ED MEDICATIONS Generic Name Dose Route Start Last Admin Trade Name Freq PRN Reason Stop Dose Admin Acetaminophen 650 mg 03/16/24 21:17 Acetaminophen 325mg Tab PO 04/15/24 21:16 Q4HP PRN Fever or Mild Pain (1-3) Alprazolam 1 mg 03/16/24 23:05 Alprazolam 1mg Tablet PO 04/15/24 23:04 BID PRN Anxiety Atorvastatin Calcium 40 mg 03/17/24 21:00 Atorvastatin 40mg Tablet PO 04/16/24 20:59 HS CRISTOPHER Gabapentin 600 mg 03/16/24 22:35 03/16/24 22:51 Gabapentin 600mg Tablet PO 04/15/24 22:34 Not Given BID CRISTOPHER Hydromorphone HCl 0.5 mg 03/16/24 21:17 Hydromorphone 2mg/Ml Syringe IV 04/15/24 21:16 Q4HP PRN Severe Pain (7-10) Sodium Chloride 1,000 mls @ 75 mls/hr 03/16/24 21:30 03/16/24 22:09 Sod Chlor 0.9% 1000ml Bag IV 04/15/24 21:29 75 mls/hr .[id number] CRISTOPHER Administration Metronidazole 500 mg in 100 mls @ 100 mls/hr 03/16/24 22:45 03/16/24 22:51 Flagyl 500mg/100ml Ivpb IV 03/26/24 22:44 100 mls/hr Q8H CRISTOPHER Administration Levothyroxine Sodium 0 mcg 03/16/24 22:45 Levothyroxine 100mcg (0.1mg) Tab PO 04/15/24 22:44 .COMPLEX CRISTOPHER Metoprolol Succinate 25 mg 03/16/24 22:35 03/16/24 22:50 Metoprolol Succinate Xl 25mg Tablet PO 04/15/24 22:34 25 mg DAILY CRISTOPHER Administration Metoprolol Tartrate 5 mg 03/16/24 23:05 Metoprolol Tartrate 5mg/5ml Vial IV 04/15/24 23:04 Q6HP PRN Heart Rate- High Nicotine 21 mg 03/16/24 21:17 Nicotine 21mg/24hr Patch TD 04/15/24 21:16 DAILYP PRN Nicotine Cravings Nitroglycerin 0.4 mg 03/16/24 22:34 Nitroglycerin 0.4mg Sl Tablet SL 04/15/24 22:33 Q5MINP PRN chest pain Non-Formulary Medication 1,000 mg 03/17/24 09:00 Metformin PO 04/16/24 08:59 BID CRISTOPHER Non-Formulary Medication 100 mg 03/17/24 09:00 Trazodone PO 04/16/24 08:59 DAILY CRISTOPHER Non-Formulary Medication 60 mg 03/17/24 09:00 Duloxetine PO 04/16/24 08:59 DAILY CRISTOPHER Non-Formulary Medication 0 mg 03/16/24 22:45 Quetiapine .ROUTE 04/15/24 22:44 .COMPLEX CRISTOPHER Non-Formulary Medication 0 mg 03/16/24 22:45 Rivaroxaban [Xarelto] .ROUTE 04/15/24 22:44 .COMPLEX CRISTOPHER Ondansetron HCl 4 mg 03/16/24 21:30 03/16/24 22:10 Ondansetron 4mg/2ml Vial IV 04/15/24 21:29 Not Given Q4H CRISTOPHER Pantoprazole Sodium 40 mg 03/17/24 21:00 Pantoprazole 40mg Vial IV 04/16/24 20:59 HS CRISTOPHER Ropinirole HCl 0.25 mg 03/17/24 21:00 Ropinirole Hcl 0.25 Mg Tablet PO 04/16/24 20:59 HS CRISTOPHER Sodium Chloride 10 ml 03/16/24 21:17 Sodium Chloride 0.9% 10ml Flush Syringe IV 04/15/24 21:16 NEEDED PRN Maintain IV Site Sodium Chloride 10 ml 03/16/24 21:17 Sodium Chloride 0.9% 10ml Vial IV 04/15/24 21:16 NEEDED PRN dilute protonix Ticagrelor 0 mg 03/16/24 22:45 Ticagrelor 90mg Tablet PO 04/15/24 22:44 .COMPLEX CRISTOPHER Discontinued Medications Generic Name Dose Route Start Last Admin Trade Name Freq PRN Reason Stop Dose Admin Enoxaparin Sodium 40 mg 03/17/24 09:00 Enoxaparin 40mg/0.4ml Syringe SQ 04/16/24 08:59 DAILY CRISTOPHER Hydromorphone HCl 0.5 mg 03/16/24 18:00 03/16/24 18:44 Hydromorphone 4 Mg/Ml Syringe IV 03/16/24 18:01 Not Given ONCE ONE Hydromorphone HCl 0.5 mg 03/16/24 18:39 03/16/24 18:54 Hydromorphone 2mg/Ml Syringe IV 03/16/24 18:40 0.5 mg ONCE ONE Administration Hydromorphone HCl 0.5 mg 03/16/24 19:48 03/16/24 19:56 Hydromorphone 4 Mg/Ml Syringe IV 03/16/24 19:49 Not Given ONCE ONE Hydromorphone HCl 0.5 mg 03/16/24 19:54 03/16/24 20:03 Hydromorphone 2mg/Ml Syringe IV 03/16/24 19:55 0.5 mg ONCE ONE Administration Lactated Ringer's 1,000 mls @ 999 mls/hr 03/16/24 18:00 03/16/24 18:37 Lactated Ringer's 1000 Ml Bag IV 03/16/24 19:00 999 mls/hr .Q1H1M ONE Administration Iopamidol 75 ml 03/16/24 19:21 03/16/24 19:22 Iopamidol-370 (76%);100ml Bottle IV 03/16/24 19:22 75 ml ONCE ONE Administration Ondansetron HCl 4 mg 03/16/24 18:00 03/16/24 18:37 Ondansetron 4mg/2ml Vial IV 03/16/24 18:01 4 mg ONCE ONE Administration Sodium Chloride 10 ml 03/16/24 19:21 03/16/24 19:22 Sodium Chloride 0.9% 10ml Syr (Rad Only) IV 03/16/24 19:22 10 ml ONCE ONE Administration ORDERS Category Date Time Status CT abdomen pelvis w con Stat Cat Scan 03/16/24 18:01 Completed Bilirubin,Direct Stat Lab 03/16/24 18:27 Completed CBC w/Auto Diff [Complete Blood Count Auto Diff] Stat Lab 03/16/24 18:27 Completed CMP [Comprehensive Metabolic Panel] Stat Lab 03/16/24 18:27 Completed Lipase Stat Lab 03/16/24 18:27 Completed Labs were independently interpreted by me, significant for leukocytosis, liver enzymes within normal limits, lipase 299 Imaging was independently visualized and interpreted by me, significant for no acute surgical pathology. Please refer to radiology report for full details. My clinical impression at this time is most consistent with exacerbation of chronic pancreatitis versus gastroparesis. Upon reevaluation patient continues to have severe epigastric pain. I believe patient will benefit from admission for further management of her intractable symptoms. Patient was admitted to hospital medicine service. Critical Care Critical Care Time Critical Care Time: No
--- NOTE | 2024-03-16 18:01 | CT_ITS ---
PROCEDURE INFORMATION: Exam: CT Abdomen And Pelvis With Contrast Exam date and time: 03/16/2024 7:21 PM Age: 63 years old Clinical indication: Abdominal pain; Epigastric; Additional info: Severe epigastric abdominal pain TECHNIQUE: Imaging protocol: Computed tomography of the abdomen and pelvis with contrast. Radiation optimization: All CT scans at this facility use at least one of these dose optimization techniques: automated exposure control; mA and/or kV adjustment per patient size (includes targeted exams where dose is matched to clinical indication); or iterative reconstruction. Contrast material: ISOVUE; Contrast volume: 75 ml; Contrast route: IV; COMPARISON: CT ABDOMEN PELVIS WO CON 06/09/2023 2:40 AM FINDINGS: Tubes, catheters and devices: Intraspinal stimulator device extending to the level of T12 Lungs: Centrilobular emphysema. Bibasilar atelectasis versus parenchymal scarring. Liver: Decreased density throughout the liver compatible with hepatic steatosis. Gallbladder and bile ducts: Cholecystectomy Pancreas: Pancreas unremarkable Spleen: Evidence of prior splenic granulomatous disease. Adrenal glands: Adrenal glands unremarkable. Kidneys and ureters: Right renal cyst Stomach and bowel: small hiatal hernia Appendix: No evidence of appendicitis. Intraperitoneal space: Unremarkable. No free air. No significant fluid collection. Vasculature: Scattered regions of atherosclerotic vascular calcification within the abdominal aorta and common iliac arteries.Colonic diverticulosis. No evidence of diverticulitis. Lymph nodes: Unremarkable. No enlarged lymph nodes. Urinary bladder: Mild thickening of the bladder wall may reflect incomplete distension. Could not exclude changes of cystitis. Reproductive: Hysterectomy Bones/joints: Lumbar spondylosis with multilevel disc degeneration. chronic right-sided rib fracture deformities Soft tissues: Fat filled umbilical hernia IMPRESSION: 1. Mild thickening of the bladder wall may reflect incomplete distension. Could not exclude changes of cystitis. 2. No evidence of acute intra-abdominal abnormality. COMMENTS: Consistent with the [employer]'s Incidental Findings Committee white paper (J Am Adela Radiol 2018): Any incidental renal lesion less than 1 cm or classified as too small to characterize, or any incidental cystic renal lesion characterized as simple-appearing, is likely benign. No follow-up imaging is recommended for these lesions per consensus recommendations based on imaging criteria.
[2024-03-16] MEDS: LACTATED RINGERS 1000ML 1,000 ML 999 ML IV (18:37)
[2024-03-16] MEDS: ONDANSETRON 4MG/2ML VIAL 4 MG IV (18:37)
[2024-03-16 18:39] LABS: Basophils # 0.1 K/mm3 (0-0.2); Basophils % 0.9 % (0.1-2.0); Eosinophils # 0.4 K/mm3 (0.0-0.4); Eosinophils % 3.1 % (0.1-12.0); Hematocrit 33.9 % (37.0-47.0); Hemoglobin 9.9 g/dL (12.2-16.2); Lymphocytes # 4.4 K/mm3 (0.7-4.5); Lymphocytes % 35.4 % (10-50); Mean Corpuscular HGB Conc 29.3 g/dL (31.8-35.4); Mean Corpuscular Hemoglobin 21.8 pg (27.0-31.2); Mean Corpuscular Volume 74.6 fl (81-99); Mean Platelet Volume 8.5 fl (7.4-10.4); Monocytes # 0.7 K/mm3 (0.1-1.0); Monocytes % 5.5 % (1.7-9.3); Neutrophils # 6.9 K/mm3 (1.8-7.8); Neutrophils % 55.1 % (37.0-80.0); Platelet Count 479 K/mm3 (142-424); Red Blood Count 4.55 M/mm3 (4.20-5.40); White Blood Count 12.5 K/mm3 (4.8-10.8)
[2024-03-16 18:45] LABS: Chloride 106 mmol/L (98-107); Sodium 137 mmol/L (136-145)
[2024-03-16 18:46] LABS: Potassium 4.6 mmoL/L (3.5-5.1)
[2024-03-16 18:48] LABS: Alanine Aminotransferase 19 U/L (12-78); Alkaline Phosphatase 162 U/L (38-126); Anion Gap 10.6 mEq/L (5-15); Aspartate Amino Transferase 28 U/L (14-36); Bilirubin,Direct 0.2 mg/dl (0.0-0.4); Bilirubin,Total 0.5 mg/dl (0.2-1.3); Blood Urea Nitrogen 21 mg/dl (7-17); Calcium 8.9 mg/dl (8.4-10.2); Carbon Dioxide 25 mmol/L (22.0-30.0); Creatinine Clearance Estimated 86 mL/min (50-200); Estimated Glomerular Filt Rate 63 ml/min (>60); GFR (African American) 77 ML/MIN (>60); Glucose 112 mg/dl (74-100)
[2024-03-16 18:49] LABS: Albumin Level 3.8 g/dl (3.5-5.0); Albumin/Globulin Ratio 1.1 (1.1-1.8); Globulin 3.4 g/dL (1.3-3.2); Lipase 228 U/L (23-300); Total Protein,Serum 7.2 g/dl (6.3-8.2)
[2024-03-16] MEDS: HYDROMORPHONE 2MG/ML SYRINGE 0.5 MG IV ×2 (18:54→20:03)
[2024-03-16] MEDS: SODIUM CHLORIDE 0.9% 10ML SYR (RAD ONLY) 10 ML IV (19:22)
[2024-03-16] MEDS: IOPAMIDOL-370 (76%);100ML BOTTLE 75 ML IV (19:22)
--- NOTE | 2024-03-16 20:35 | PC.NURSE ---
notified warehouse operator of admission
--- NOTE | 2024-03-16 20:50 | PC.NURSE ---
called report to Alin on 2nd floor and answered all questions
--- NOTE | 2024-03-16 21:27 | P.HP_ITS ---
History of Present Illness *Admission Date: 03/16/24 *Reason for visit:: abd pain *History of present illness: This is a 63 yo F with PMHx COPD on home oxygen, NIDDM with neuropathy, Afib, HTN, HLD, referred Hx of pancreas divisum presented to ED for evaluation of epigastric abdominal pain that radiates to the back, associated nausea, vomiting, non bloody diarrhea, gradual in onset starting over the past 48 hours, constant, worsening, has had similar symptoms in the past associated with reported chronic pancreatitis in the setting of pancreatic divisum. She reports history of pancreatic stents, and been followed at [facility] for same reason. Patient stated been waiting for cardiac clearance to perform therapeutic endoscopy procedure. She denies any fevers or chills or urinary symptoms. Denies any overt chest pain, she has had difficulty tolerating p.o. intake. Previous therapies include p.o. analgesia [id number] with no improvement of symptoms. She states she has had similar symptoms in the past requiring hospitalization. No sick contacts, no recent travel, no back pain [facility] Disclaimer: The information contained in this section may have been updated after the patient was seen, as this information can be updated by other users. Medical History COPD (chronic obstructive pulmonary disease) HLD (hyperlipidemia) Diabetes Anxiety and depression TIA (transient ischemic attack) History of stroke History of multiple cerebrovascular accidents (CVAs) History of class III angina pectoris Unstable angina Typical angina Dyspnea History of pancreatitis History of CVA (cerebrovascular accident) Surgical History History of biliary duct stent placement History of hysterectomy History of cholecystectomy History of coronary artery stent placement Family History Other Family history of cancer Family history of diabetes mellitus Social History Smoking Status: Former smoker tobacco type: cigarettes packs per day: 1 second hand exposure: No alcohol intake: never counseling provided: none substance use type: marijuana and crack/cocaine current occupational status: retired and other Travel in the last 8 weeks: None household members: spouse housing: house number of children: 2 current occupational exposures/hazards: No caffeine: Yes Review of Systems Review of Systems Review of systems:: pertinent systems reviewed and negative unless documented below Meds Home Medications and Allergies Home Medications Medication Instructions Recorded Confirmed Type isosorbide mononitrate 30 mg 30 mg PO DAILY High blood pressure 10/24/21 03/16/24 History tablet,extended release 24 hr albuterol sulfate 2.5 mg/3 mL 2.5 mg inhalation Q6H Breathing 04/01/23 03/16/24 History (0.083 %) solution for nebulization Problems omeprazole 40 mg capsule,delayed 40 mg PO DAILY Acid Reflux 04/08/23 03/16/24 History release potassium chloride 10 mEq 10 meq PO DAILY Supplement 06/09/23 03/16/24 History tablet,extended release albuterol sulfate 90 mcg/actuation 2 inh inhalation Q4HP PRN 07/13/23 03/16/24 History aerosol inhaler Shortness Of Breath Or Wheezing atorvastatin 40 mg tablet 40 mg PO HS Cholesterol 07/13/23 03/16/24 History nitroglycerin 0.4 mg sublingual 0.4 mg sublingual Q5MINP PRN chest 07/13/23 03/16/24 History tablet pain duloxetine 60 mg capsule,delayed 60 mg PO DAILY Mood 30 days #0 caps 07/14/23 03/16/24 Rx release trazodone 100 mg tablet 100 mg PO DAILY #90 tabs 08/22/23 03/16/24 Rx penicillin V potassium 500 mg 500 mg PO TID #30 tabs 10/10/23 03/16/24 Rx tablet losartan 50 mg tablet 50 mg PO DAILY #90 tabs 11/06/23 03/16/24 Rx gabapentin 600 mg tablet 600 mg PO BID #60 tabs 12/24/23 03/16/24 Rx alprazolam 1 mg tablet 1 mg PO BID PRN Anxiety #60 tabs 01/09/24 03/16/24 Rx metformin 1,000 mg tablet 1,000 mg PO BID #180 tabs 01/09/24 03/16/24 Rx ropinirole 0.25 mg tablet 0.25 mg PO HS Restless Leg(S) #30 02/18/24 03/16/24 Rx tabs metoprolol succinate 25 mg 25 mg PO DAILY High Blood Pressure 03/15/24 03/16/24 Rx tablet,extended release 24 hr #90 tabs promethazine 25 mg tablet 25 mg PO TID PRN Nausea And 03/16/24 03/16/24 History Vomiting conjugated estrogens 0.3 mg tablet 0.3 mg PO DAILY 03/17/24 03/17/24 History levothyroxine 100 mcg tablet 100 mcg PO DAILY 03/17/24 03/17/24 History montelukast 10 mg tablet 10 mg PO HS 03/17/24 03/17/24 History quetiapine 50 mg tablet 50 mg PO HS 03/17/24 03/17/24 History rivaroxaban 20 mg tablet 20 mg PO HS 03/17/24 03/17/24 History ticagrelor 90 mg tablet 90 mg PO BID 03/17/24 03/17/24 History New Prescriptions to Start Prescriptions: Allergies Allergy/AdvReac Type Severity Reaction Status Date / Time codeine [CODEINE] Allergy Intermediate N/V Verified 03/15/24 14:06 ketorolac [KETOROLAC] Allergy Intermediate Hives Verified 03/15/24 14:06 meperidine [MEPERIDINE] Allergy Intermediate Hives Verified 03/15/24 14:06 tramadol [TRAMADOL] Allergy Intermediate Hives Verified 03/15/24 14:06 verapamil Allergy Mild Unknown Verified 03/15/24 14:06 allergy reaction ciprofloxacin AdvReac Severe Interacts Verified 03/15/24 14:06 with cymbalta Exam Data for Last 24 hours Vital signs and Labs for Last 24 Hours: Temp Pulse Resp BP Pulse Ox O2 Del Method O2 Flow Rate 98.0 F 128 H 14 97/72 L 99 Nasal Cannula 2 03/16/24 20:54 03/16/24 20:54 03/16/24 20:54 03/16/24 20:54 03/16/24 20:01 03/16/24 20:54 03/16/24 20:54 Laboratory Results - last 24 hr 03/16/24 18:27: WBC 12.5 H, RBC 4.55, Hgb 9.9 L, Hct 33.9 L, MCV 74.6 L, MCH 21.8 L, MCHC 29.3 L, RDW 19.0 H, Plt Count 479 H, MPV 8.5, Neut % (Auto) 55.1, Lymph % (Auto) 35.4, [place] % (Auto) 5.5, Eos % (Auto) 3.1, Baso % (Auto) 0.9, Neut # (Auto) 6.9, Lymph # (Auto) 4.4, [place] # (Auto) 0.7, Eos # (Auto) 0.4, Baso # (Auto) 0.1, Sodium 137, Potassium 4.6, Chloride 106, Carbon Dioxide 25, Anion Gap 10.6, BUN 21 H D, Creatinine 0.90, Estimated Creat Clear 86, Estimated GFR 63, Est GFR ( Amer) 77, Glucose 112 H, Calcium 8.9, Total Bilirubin 0.5, Direct Bilirubin 0.2, AST 28, ALT 19, Alkaline Phosphatase 162 H, Total Protein 7.2, Albumin 3.8, Globulin 3.4 H, Albumin/Globulin Ratio 1.1, Lipase 228 Temp Pulse Resp BP Pulse Ox O2 Del Method 98.1 F 68 18 90/60 L 96 Room Air 07/13/23 04:36 07/13/23 06:30 07/13/23 06:30 07/13/23 06:30 07/13/23 06:30 07/13/23 04:36 Laboratory Results - last 24 hr 07/13/23 04:30: WBC 19.9 H, RBC 4.60, Hgb 11.5 L, Hct 39.6, MCV 86.0, MCH 25.0 L , MCHC 29.1 L, RDW 17.6 H, Plt Count 483 H, MPV 9.0, Neut % (Auto) 74.9, Lymph % (Auto) 18.8, [place] % (Auto) 4.2, Eos % (Auto) 1.7, Baso % (Auto) 0.3, Neut # (Auto) 14.9 H, Lymph # (Auto) 3.8, [place] # (Auto) 0.8, Eos # (Auto) 0.3, Baso # (Auto) 0.1, Total Counted 100, Neutrophils % (Manual) 75, Lymphocytes % (Manual) 24, Monocytes % (Manual) 1 L, Platelet Estimate Slight increase, RBC Morphology Normal, D-Dimer 1.02 H, Sodium 140, Potassium 4.2, Chloride 99, Carbon Dioxide 25, Anion Gap 20.2 H, BUN 16, Creatinine 2.20 H, Estimated Creat Clear 25, Estimated GFR 23 L, Est GFR ( Amer) 27 L, Glucose 211 H, Calcium 9.1, Total Bilirubin 0.5, AST 34, ALT 27, Alkaline Phosphatase 186 H, Troponin I 0.04 H, Total Protein 8.8 H, Albumin 4.5, Globulin 4.3 H, Albumin/Globulin Ratio 1.0 L I & O for Last 24 hours: Intake & Output 03/13/24 03/14/24 03/15/24 03/16/24 23:59 23:59 23:59 23:59 Weight 94.347 kg Intake & Output 07/10/23 07/11/23 07/12/23 07/13/23 23:59 23:59 23:59 23:59 Weight 133.81 kg Constitutional Constitutional: mild distress, morbidly obese, chronically ill appearing, cooperative and somnolent *Routine HEENT Exam Head: Present normocephalic Eye: Present EOMI and PERRL ENT: Present mucous membranes moist Comments: NC O2 in place *Routine Neck Exam Neck: Present supple; Absent lymphadenopathy Routine Chest/Breast/Axilla Exam Comments: TTP over right lower chest wall *Routine Respiratory Exam Respiratory: Present wheezes (faint in posterior lung garcia), crackles (RLL) and distant breath sounds; Absent rhonchi *Routine Cardiovascular Exam Cardiovascular: Present RRR *Routine Abdominal Exam Abdominal: Present soft and normoactive bowel sounds; Absent tenderness *Routine Rectal Exam Rectal:: deferred *Routine Genitalia Exam Genitalia:: deferred *Routine Extremities Exam Extremities: Absent cyanosis, clubbing or edema *Routine Skin Exam Skin: Present warm; Absent rash *Routine Neurological Exam Neurological: Present alert, oriented X3, CN II-XII intact and moving all extremities; Absent altered mental status Comments: Falls asleep easily. Awakens to voice and answers questions appropriately however and is oriented while answering questions. Routine Psychiatric Exam Psychiatric: Present normal affect and normal thought process H&P: Result Imaging and Cardiology EKG: Status: image reviewed by me, Preliminary report and final report CT scan - abdomen: Status: image reviewed by me, Preliminary report and final report Assessment and Plan *Assessment and plan (1) Abdominal pain: Status: Acute Qualifiers: Abdominal location: epigastric Qualified Code(s): R10.13 - Epigastric p ain Category: Medical Code(s): R10.9 - Unspecified abdominal pain (2) Nausea vomiting and diarrhea: Status: Acute Category: Medical Code(s): R11.2 - Nausea with vomiting, unspecified; R19.7 - Diarrhea, unspecified (3) Atrial fibrillation with RVR: Status: Acute Category: Medical Code(s): I48.91 - Unspecified atrial fibrillation (4) COPD (chronic obstructive pulmonary disease): Status: Chronic Qualifiers: COPD type: unspecified COPD Qualified Code(s): J44.9 - Chronic obstructive pulmonary disease, unspecified Category: Medical Code(s): J44.9 - Chronic obstructive pulmonary disease, unspecified (5) Hypertension: Status: Chronic Qualifiers: Hypertension type: essential hypertension Qualified Code(s): I10 - Essential (primary) hypertension Category: Medical Code(s): I10 - Essential (primary) hypertension (6) Hyperlipidemia: Status: Chronic Qualifiers: Hyperlipidemia type: mixed hyperlipidemia Qualified Code(s): E78.2 - Mixed hyperlipidemia Category: Medical Code(s): E78.5 - Hyperlipidemia, unspecified (7) Coronary artery disease: Status: Chronic Qualifiers: Coronary Disease-Associated Artery/Lesion type: [place] artery [place] vs. transplanted heart: [place] heart Associated angina: without angina Qualified Code(s): I25.10 - Atherosclerotic heart disease of [place] coronary artery without angina pectoris Category: Medical Code(s): I25.10 - Atherosclerotic heart disease of [place] coronary artery without angina pectoris (8) Diabetes mellitus: Status: Chronic Qualifiers: Diabetes mellitus type: type 2 Diabetes mellitus mcc insulin use: without buttermaker helper use Diabetes mellitus complication status: without complication Qualified Code(s): E11.9 - Type 2 diabetes mellitus without complications Category: Medical Code(s): E11.9 - Type 2 diabetes mellitus without complications (9) Pancreas divisum of [place] pancreas: Status: Acute Category: Medical Code(s): Q45.3 - Other congenital malformations of pancreas and pancreatic duct (10) Tobacco use: Status: Chronic Category: Social Hx Code(s): Z72.0 - Tobacco use Plan 63 yo F with PMHx COPD on home oxygen, NIDDM with neuropathy, Afib, HTN, HLD, referred Hx of pancreas divisum presented to ED for evaluation of epigastric abdominal pain that radiates to the back, associated nausea, vomiting, non bloody diarrhea, gradual in onset starting over the past 48 hours, constant, worsening. on arrival patient presented non toxic appearance. labs consistent with leukocytosis. normal lipase. CT of abdomen negative. Due to persistent of symptoms and pain, case was discussed with ED. agreed for admission. Plan as follow: -intractable epigastric abdominal pain, to rule out chronic pancreatitis vs jaci ritis presented with N/V/D Previous Hx of pancreas divisum. admit patient for medical monitoring Cont IV hydration pain management zofran for nauseas start flagyl IV empirically. monitor WBC repeat labs patient awaiting cardiac clearance for therapeutic endoscopy at [facility]. Needs to follow up with GI. Afib w/ RVR: HR improved after metoprolol given cont cardiac monitoring presumed non medical compliance with home medications Others chronic condtions: HTN, HLD, COPD, CAD, NIDDM: conditions reviewed. reconciled and resume home meds obtain A1c hold HTN meds in the setting of hypotension resume metoprolol on Duloxetine and gabapentin Tobacco abuse: on nicotine patch Lovenox for DVt ppx. On protonix for GERD and ppx Full code
--- NOTE | 2024-03-16 21:32 | PC.NURSE ---
Patient arrived to floor via wheelchair from ED at 21:04.
[2024-03-16 21:56] LABS: Microscopic, Urine URINE MICROSCOPIC (MICROSCOPIC)
[2024-03-16 21:59] LABS: Appearance,Urine CLEAR (Clear); Bilirubin,Urine Negative (Negative); Blood, Urine Negative (Negative); Color,Urine YELLOW (Yellow); Glucose,Urine (UA) Negative (Negative); Ketones,Urine Negative (Negative); Leukocyte Esterase,Urine Negative (Negative); Nitrate,Urine Negative (Negative); Protein,Urine Negative (Negative); Urobilinogen,Urine 0.2 EU/dl (0.2)
[2024-03-16] MEDS: 0.9 % SODIUM CHLORIDE 1000ML 1,000 ML 75 ML IV (22:09)
--- NOTE | 2024-03-16 22:20 | PC.NURSE ---
Notified Handy via phone of patients HR sustaining 130's-140's, occasional dip to the teens, pt denies any chest pain at this time. Received an order for EKG. VSS. Pt has hx of afib and is on home medications. Reconciled meds and relayed that to [employer]ER [employer] that those needed to be ordered.
[2024-03-16 22:25] LABS: Squamous Epithelial Cell,Urine Occasional #/hpf (0-5)
--- NOTE | 2024-03-16 22:30 | ECG_ITS ---
APPROVED REPORT Exam: Resting ECG HR:110 bpm ECG Measurements Heart Rate 110 AXES QRSd 81 QRS 46 QT 354 T 1 QTc 419 Conclusion ATRIAL FLUTTER/TACHYCARDIA WITH RAPID VENTRICULAR RESPONSE NONSPECIFIC T-WAVE ABNORMALITY ABNORMAL RHYTHM ECG UNCONFIRMED REPORT Electronically signed by : KIN DILLARD, 03/17/2024 06:51:44
[2024-03-16] MEDS: METOPROLOL SUCCINATE XL 25MG TABLET 25 MG PO (22:50)
[2024-03-16] MEDS: METRONIDAZ/SOD CHL 500 MG/100 ML PIGGYBACK 100 MG IV (22:51)
--- NOTE | 2024-03-16 23:00 | PC.NURSE ---
Notified PROJECT ENGINEERING DIRECTOR of patients request stating she takes brilinta, xarelto, metformin, and xanax HS. Those meds are needed to be ordered
--- NOTE | 2024-03-16 23:04 | PC.NURSE ---
Notified HAIM Murrell of EKG strip results atrial flutter
[2024-03-17] VITALS (7 sets, daily range): BP systolic 82–135; BP diastolic 53–82; PULSE 18–139; RESP 16–18; TEMP 36.4–36.9; O2SAT 91–100; BMI 33.5
[2024-03-17] MEDS: HYDROMORPHONE 2MG/ML SYRINGE 0.5 MG IV ×2 (00:07→07:52)
[2024-03-17] MEDS: TICAGRELOR 90MG TABLET 90 MG PO ×3 (01:13→21:45)
[2024-03-17] MEDS: RIVAROXABAN 10MG TABLET 20 MG PO ×2 (01:13→18:09)
[2024-03-17] MEDS: QUETIAPINE 25MG TABLET 50 MG PO ×2 (01:13→21:44)
[2024-03-17] MEDS: ALPRAZolam 1MG TABLET 1 MG PO (02:39)
--- NOTE | 2024-03-17 02:40 | PC.NURSE ---
patient stated she was feeling anxious and requested her prn xanax.
--- NOTE | 2024-03-17 05:05 | PC.NURSE ---
Pt A&OX4. 2.5L NC BL. Pt had complaints of epigastric abdominal pain radiating to back through the night, medicated with prn med per mar. No other complaints besides feeling anxious. Pt has NPO orders but per R D INTERN advance diet as tolerated. HR was staying elevated and sustaining 130's-140s, gave metoprolol and got ekg per day care center director. Cardiology consult was ordered
[2024-03-17] MEDS: METRONIDAZ/SOD CHL 500 MG/100 ML PIGGYBACK 100 MG IV ×3 (05:47→21:45)
[2024-03-17 06:13] LABS: Basophils # 0.1 K/mm3 (0-0.2); Basophils % 0.9 % (0.1-2.0); Eosinophils # 0.4 K/mm3 (0.0-0.4); Eosinophils % 3.4 % (0.1-12.0); Hematocrit 32.1 % (37.0-47.0); Hemoglobin 9.2 g/dL (12.2-16.2); Lymphocytes # 4.5 K/mm3 (0.7-4.5); Lymphocytes % 35.9 % (10-50); Mean Corpuscular HGB Conc 28.7 g/dL (31.8-35.4); Mean Corpuscular Hemoglobin 21.7 pg (27.0-31.2); Mean Corpuscular Volume 75.6 fl (81-99); Mean Platelet Volume 8.3 fl (7.4-10.4); Monocytes # 0.6 K/mm3 (0.1-1.0); Monocytes % 5.1 % (1.7-9.3); Neutrophils # 6.9 K/mm3 (1.8-7.8); Neutrophils % 54.7 % (37.0-80.0); Platelet Count 425 K/mm3 (142-424); Red Blood Count 4.25 M/mm3 (4.20-5.40); White Blood Count 12.6 K/mm3 (4.8-10.8)
[2024-03-17 06:17] LABS: Chloride 107 mmol/L (98-107); Sodium 139 mmol/L (136-145)
[2024-03-17 06:18] LABS: Potassium 4.5 mmoL/L (3.5-5.1)
[2024-03-17 06:20] LABS: Alanine Aminotransferase 22 U/L (12-78); Albumin Level 3.5 g/dl (3.5-5.0); Albumin/Globulin Ratio 1.1 (1.1-1.8); Alkaline Phosphatase 131 U/L (38-126); Anion Gap 10.5 mEq/L (5-15); Aspartate Amino Transferase 28 U/L (14-36); Bilirubin,Total 0.6 mg/dl (0.2-1.3); Blood Urea Nitrogen 17 mg/dl (7-17); Calcium 8.6 mg/dl (8.4-10.2); Carbon Dioxide 26 mmol/L (22.0-30.0); Creatinine Clearance Estimated 86 mL/min (50-200); Estimated Glomerular Filt Rate 63 ml/min (>60); GFR (African American) 77 ML/MIN (>60); Globulin 3.1 g/dL (1.3-3.2); Glucose 105 mg/dl (74-100); Total Protein,Serum 6.6 g/dl (6.3-8.2)
[2024-03-17 06:21] LABS: Magnesium 1.7 mg/dl (1.6-2.3)
[2024-03-17 06:25] LABS: Hemoglobin A1C 6.1 % (4.0-6.0)
--- NOTE | 2024-03-17 07:33 | HMH.PHAINT1 ---
Pharmacy Intervention Comments: HOME MEDICATION LIST VERIFIED VIA OUTSIDE PHARMACY AND DR DENNIS
[2024-03-17] MEDS: ONDANSETRON 4MG/2ML VIAL 4 MG IV (07:53)
[2024-03-17] MEDS: METOPROLOL SUCCINATE XL 25MG TABLET 25 MG PO (08:43)
[2024-03-17] MEDS: METFORMIN 500MG TABLET 1000 MG PO ×2 (08:43→18:09)
[2024-03-17] MEDS: DULOXETINE 30MG CAPSULE.DR 60 MG PO (08:44)
[2024-03-17] MEDS: LEVOTHYROXINE 100MCG (0.1MG) TAB 100 MCG PO (08:45)
--- NOTE | 2024-03-17 10:46 | P.CONCA_ITS ---
History of Present Illness History of Present Illness Consult date: 03/17/24 Requesting physician: Handy Clement Consult reason: atrial fibrillation Chief complaint: abdominal pain History of present illness: 63-year-old white female established patient of our office with history of CAD status post stenting. She also has paroxysmal atrial fibrillation and is O2 dependent COPD, recently quit smoking. Patient has pancreas divisum with episodic severe abdominal pains. She was seen in our office recently needing clearance for scope but was noted to be A-fib RVR at rate 115. She was set up for stress test which is pending. In the interim yesterday developed worsening severe abdominal pain and came to the emergency room where she was admitted overnight for analgesics. We are consulted for A-fib RVR which was present on admission but has since improved with resuming her home dose metoprolol. Patient denies any cardiac symptoms or concerns this morning. She remains in A- fib with heart rate in the 70s to 90s PFSH PFS Disclaimer: The information contained in this section may have been updated after the patient was seen, as this information can be updated by other users. Medical History COPD (chronic obstructive pulmonary disease) HLD (hyperlipidemia) Diabetes Anxiety and depression TIA (transient ischemic attack) History of stroke History of multiple cerebrovascular accidents (CVAs) History of class III angina pectoris Unstable angina Typical angina Dyspnea History of pancreatitis History of CVA (cerebrovascular accident) Surgical History History of biliary duct stent placement History of hysterectomy History of cholecystectomy History of coronary artery stent placement Family History Other Family history of cancer Family history of diabetes mellitus Social History Smoking Status: Former smoker tobacco type: cigarettes packs per day: 1 second hand exposure: No alcohol intake: never counseling provided: none substance use type: marijuana and crack/cocaine current occupational status: retired and other Travel in the last 8 weeks: None household members: spouse housing: house number of children: 2 current occupational exposures/hazards: No caffeine: Yes Review of Systems Constitutional Constitutional: Denies fatigue and Denies weakness Eyes Eyes: Denies loss of vision ENT Ears, Nose, Mouth, and Throat: Denies hearing loss and Denies vertigo *Cardiovascular Cardiovascular: Denies chest pain, Denies dyspnea and Denies syncope *Respiratory Respiratory: Denies cough and Denies dyspnea *Gastrointestinal Gastrointestinal: Reports abdominal pain, Denies change in stool character, Reports nausea and Denies vomiting *Musculoskeletal Musculoskeletal: Denies muscle weakness Integumentary/Breasts Skin/Breast: Denies changing lesions *Neurologic Neurologic: Denies loss of vision, Denies syncope, Denies vertigo and Denies weakness Endocrine Endocrine: Denies fatigue Exam Data for Last 24 hours Vital signs and Labs for Last 24 Hours: Temp Pulse Resp BP Pulse Ox O2 Del Method O2 Flow Rate 98.0 F 74 16 122/82 92 L Room Air 2.5 03/17/24 08:00 03/17/24 08:00 03/17/24 08:00 03/17/24 08:00 03/17/24 08:00 03/17/24 09:00 03/17/24 08:00 Laboratory Results - last 24 hr 03/16/24 18:27: WBC 12.5 H, RBC 4.55, Hgb 9.9 L, Hct 33.9 L, MCV 74.6 L, MCH 21.8 L, MCHC 29.3 L, RDW 19.0 H, Plt Count 479 H, MPV 8.5, Neut % (Auto) 55.1, Lymph % (Auto) 35.4, [place] % (Auto) 5.5, Eos % (Auto) 3.1, Baso % (Auto) 0.9, Neut # (Auto) 6.9, Lymph # (Auto) 4.4, [place] # (Auto) 0.7, Eos # (Auto) 0.4, Baso # (Auto) 0.1, Sodium 137, Potassium 4.6, Chloride 106, Carbon Dioxide 25, Anion Gap 10.6, BUN 21 H D, Creatinine 0.90, Estimated Creat Clear 86, Estimated GFR 63, Est GFR ( Amer) 77, Glucose 112 H, Calcium 8.9, Total Bilirubin 0.5, Direct Bilirubin 0.2, AST 28, ALT 19, Alkaline Phosphatase 162 H, Total Protein 7.2, Albumin 3.8, Globulin 3.4 H, Albumin/Globulin Ratio 1.1, Lipase 228, Urine Color Yellow, Urine Appearance Clear, Urine pH 7.0, Ur Specific [place] 1.010, Urine Protein Negative, Urine Glucose (UA) Negative, Urine Ketones Negative, Urine Blood Negative, Urine Nitrate Negative, Urine Bilirubin Negative, Urine Urobilinogen 0.2, Ur Leukocyte Esterase Negative, Urine RBC None, Urine WBC None, Ur Squamous Epith Cells Occasional, Urine Bacteria None 03/17/24 05:54: WBC 12.6 H, RBC 4.25, Hgb 9.2 L, Hct 32.1 L, MCV 75.6 L, MCH 21.7 L, MCHC 28.7 L, RDW 19.0 H, Plt Count 425 H, MPV 8.3, Neut % (Auto) 54.7, Lymph % (Auto) 35.9, [place] % (Auto) 5.1, Eos % (Auto) 3.4, Baso % (Auto) 0.9, Ne ut # (Auto) 6.9, Lymph # (Auto) 4.5, [place] # (Auto) 0.6, Eos # (Auto) 0.4, Baso # (Auto) 0.1, Sodium 139, Potassium 4.5, Chloride 107, Carbon Dioxide 26, Anion Gap 10.5, BUN 17, Creatinine 0.90, Estimated Creat Clear 86, Estimated GFR 63, Est GFR ( Amer) 77, Glucose 105 H, Hemoglobin A1c 6.1 H, Calcium 8.6, Magnesium 1.7, Total Bilirubin 0.6, AST 28, ALT 22, Alkaline Phosphatase 131 H, Total Protein 6.6, Albumin 3.5, Globulin 3.1, Albumin/Globulin Ratio 1.1 I & O for Last 24 hours: Intake & Output 03/14/24 03/15/24 03/16/24 03/17/24 23:59 23:59 23:59 23:59 Intake Total 955 / 955 Output Total 0 / 0 Balance 955 / 955 Weight 208 lb 11.2 oz 208 lb 11.2 oz Constitutional Constitutional: no acute distress and cooperative Comments: Very drowsy from analgesia *Routine HEENT Exam Eye: Present PERRL *Routine Respiratory Exam Respiratory: Present CTA bilaterally; Absent accessory muscle use, wheezes or crackles *Routine Cardiovascular Exam Cardiovascular: Present RRR, Normal S1 and Normal S2; Absent murmur, gallop or rubs *Routine Abdominal Exam Abdominal: Present soft; Absent tenderness *Routine Extremities Exam Extremities: Present pulses intact; Absent cyanosis or edema *Routine Skin Exam Skin: Present intact; Absent erythema or wounds *Routine Neurological Exam Neurological: Present alert and oriented X3 Routine Psychiatric Exam Psychiatric: Present cooperative Meds Home Medications and Allergies Home Medications Medication Instructions Recorded Confirmed Type isosorbide mononitrate 30 mg 30 mg PO DAILY High blood pressure 10/24/21 03/17/24 History tablet,extended release 24 hr albuterol sulfate 2.5 mg/3 mL 2.5 mg inhalation Q6H Breathing 04/01/23 03/17/24 History (0.083 %) solution for nebulization Problems omeprazole 40 mg capsule,delayed 40 mg PO DAILY 04/08/23 03/16/24 History release potassium chloride 10 mEq 10 meq PO DAILY 06/09/23 03/16/24 History tablet,extended release albuterol sulfate 90 mcg/actuation 2 inh inhalation Q4HP PRN 07/13/23 03/16/24 History aerosol inhaler Shortness Of Breath Or Wheezing atorvastatin 40 mg tablet 40 mg PO HS Cholesterol 07/13/23 03/16/24 History nitroglycerin 0.4 mg sublingual 0.4 mg sublingual Q5MINP PRN chest 07/13/23 03/16/24 History tablet pain trazodone 100 mg tablet 100 mg PO DAILY #90 tabs 08/22/23 03/16/24 Rx losartan 50 mg tablet 50 mg PO DAILY #90 tabs 11/06/23 03/17/24 Rx gabapentin 600 mg tablet 600 mg PO BID #60 tabs 12/24/23 03/16/24 Rx alprazolam 1 mg tablet 1 mg PO BID PRN Anxiety #60 tabs 01/09/24 03/16/24 Rx metformin 1,000 mg tablet 1,000 mg PO BID #180 tabs 01/09/24 03/16/24 Rx ropinirole 0.25 mg tablet 0.25 mg PO HS Restless Leg(S) #30 02/18/24 03/16/24 Rx tabs promethazine 25 mg tablet 25 mg PO TID PRN Nausea And 03/16/24 03/16/24 History Vomiting conjugated estrogens 0.3 mg tablet 0.3 mg PO DAILY 03/17/24 03/17/24 History duloxetine 60 mg capsule,delayed 60 mg PO BID 03/17/24 03/17/24 History release levothyroxine 100 mcg tablet 100 mcg PO DAILY 03/17/24 03/17/24 History metoprolol succinate 50 mg 50 mg PO DAILY High Blood Pressure 03/17/24 Rx tablet,extended release 24 hr #90 tabs montelukast 10 mg tablet 10 mg PO HS 03/17/24 03/17/24 History quetiapine 50 mg tablet 50 mg PO HS 03/17/24 03/17/24 History rivaroxaban 20 mg tablet 20 mg PO HS 03/17/24 03/17/24 History ticagrelor 90 mg tablet 90 mg PO BID 03/17/24 03/17/24 History New Prescriptions to Start Prescriptions: Allergies Allergy/AdvReac Type Severity Reaction Status Date / Time codeine [CODEINE] Allergy Intermediate N/V Verified 03/15/24 14:06 ketorolac [KETOROLAC] Allergy Intermediate Hives Verified 03/15/24 14:06 meperidine [MEPERIDINE] Allergy Intermediate Hives Verified 03/15/24 14:06 tramadol [TRAMADOL] Allergy Intermediate Hives Verified 03/15/24 14:06 verapamil Allergy Mild Unknown Verified 03/15/24 14:06 allergy reaction ciprofloxacin AdvReac Severe Interacts Verified 03/15/24 14:06 with cymbalta Assessment and Plan *Assessment and plan (1) Abdominal pain: Status: Acute Qualifiers: Abdominal location: epigastric Qualified Code(s): R10.13 - Epigastric pain Category: Medical Code(s): R10.9 - Unspecified abdominal pain (2) Nausea vomiting and diarrhea: Status: Acute Category: Medical Code(s): R11.2 - Nausea with vomiting, unspecified; R19.7 - Diarrhea, unspecified (3) Atrial fibrillation with RVR: Status: Acute Category: Medical Code(s): I48.91 - Unspecified atrial fibrillation (4) COPD (chronic obstructive pulmonary disease): Status: Chronic Qualifiers: COPD type: unspecified COPD Qualified Code(s): J44.9 - Chronic obstructive pulmonary disease, unspecified Category: Medical Code(s): J44.9 - Chronic obstructive pulmonary disease, unspecified (5) Hypertension: Status: Chronic Qualifiers: Hypertension type: essential hypertension Qualified Code(s): I10 - Essential (primary) hypertension Category: Medical Code(s): I10 - Essential (primary) hypertension (6) Hyperlipidemia: Status: Chronic Qualifiers: Hyperlipidemia type: mixed hyperlipidemia Qualified Code(s): E78.2 - Mixed hyperlipidemia Category: Medical Code(s): E78.5 - Hyperlipidemia, unspecified (7) Coronary artery disease: Status: Chronic Qualifiers: Coronary Disease-Associated Artery/Lesion type: [place] artery [place] vs. transplanted heart: [place] heart Associated angina: without angina Qualified Code(s): I25.10 - Atherosclerotic heart disease of [place] coronary artery without angina pectoris Category: Medical Code(s): I25.10 - Atherosclerotic heart disease of [place] coronary artery without angina pectoris (8) Diabetes mellitus: Status: Chronic Qualifiers: Diabetes mellitus type: type 2 Diabetes mellitus extermination inspector insulin use: without extermination inspector use Diabetes mellitus complication status: without complication Qualified Code(s): E11.9 - Type 2 diabetes mellitus without complications Category: Medical Code(s): E11.9 - Type 2 diabetes mellitus without complications (9) Pancreas divisum of [place] pancreas: Status: Acute Category: Medical Code(s): Q45.3 - Other congenital malformations of pancreas and pancreatic duct (10) Tobacco use: Status: Chronic Category: Social Hx Code(s): Z72.0 - Tobacco use Plan A-fib RVR - known dx - resolved with home dose BB and analgesics - cont Metoprolol and Xarelto CAD s/p PCI - CCS = 0, no ischemia noted on EKG - Cont Xarelto, BB, Statin - stress test scheduled for tomorrow for surgical clearance Chronic Hypoxic Resp Failure, COPD, O2 Dependent - recently quit tobacco - per primary service Pancreas Divisum with Intractible Abdominal pain - per primary service - pt has OP scope pending with GI at [facility], [place] 03/17: CV stable to continue home meds. No further inpaient intervention warrante d from our standpoint at this time. Please advise if further concerns prior to discharge. Thank you.
[2024-03-17 11:16] LABS: 25-OH Vitamin D, Total < 12.8 ng/mL (30-100)
--- NOTE | 2024-03-17 12:46 | PC.NURSE ---
late entry: pt requesting more pain meds. bp 80s/50s and pt very drowsy. repositioned and offer warm blanket. pt content at this time.
[2024-03-17] MEDS: MORPHINE 2MG/ML SYRINGE 0.5 MG IV ×2 (14:11→20:53)
[2024-03-17] MEDS: LACTATED RINGERS 1000ML 1,000 ML 999 ML IV (14:11)
[2024-03-17] MEDS: 0.9 % SODIUM CHLORIDE 1000ML 1,000 ML 75 ML IV (15:26)
[2024-03-17] MEDS: PANTOPRAZOLE 40MG VIAL 40 MG IV (21:45)
[2024-03-17] MEDS: ATORVASTATIN 40MG TABLET 40 MG PO (21:45)
[2024-03-17] MEDS: ROPINIROLE HCL 0.25 MG TABLET PO (21:45)
[2024-03-17] MEDS: TRAZODONE 50MG TABLET 100 MG PO (21:45)
[2024-03-18] VITALS: BP 106/65; PULSE 73; PULSE 75; RESP 16; TEMP 36.6; O2SAT 92
[2024-03-18 04:00] VITALS: BP 105/66; PULSE 72; PULSE 87; RESP 16; TEMP 36.6; O2SAT 96; BMI 34.9
[2024-03-18] MEDS: 0.9 % SODIUM CHLORIDE 1000ML 1,000 ML 75 ML IV (04:48)
--- NOTE | 2024-03-18 05:02 | PC.NURSE ---
Pt has complained of epigastric pain, medicated with prn meds. Receiving IV fluids and abx. 2.5L NC BL.
[2024-03-18] MEDS: METRONIDAZ/SOD CHL 500 MG/100 ML PIGGYBACK 100 MG IV (06:05)
[2024-03-18] MEDS: LEVOTHYROXINE 100MCG (0.1MG) TAB 100 MCG PO (06:05)
[2024-03-18 06:23] LABS: Basophils # 0.1 K/mm3 (0-0.2); Basophils % 0.9 % (0.1-2.0); Eosinophils # 0.4 K/mm3 (0.0-0.4); Eosinophils % 4.9 % (0.1-12.0); Hematocrit 25.8 % (37.0-47.0); Hemoglobin 7.4 g/dL (12.2-16.2); Lymphocytes # 2.1 K/mm3 (0.7-4.5); Lymphocytes % 28.3 % (10-50); Mean Corpuscular HGB Conc 28.6 g/dL (31.8-35.4); Mean Corpuscular Hemoglobin 21.5 pg (27.0-31.2); Mean Corpuscular Volume 75.1 fl (81-99); Monocytes # 0.4 K/mm3 (0.1-1.0); Monocytes % 4.8 % (1.7-9.3); Neutrophils # 4.6 K/mm3 (1.8-7.8); Neutrophils % 61.3 % (37.0-80.0); Platelet Count 356 K/mm3 (142-424); Red Blood Count 3.44 M/mm3 (4.20-5.40); Red Cell Distribution Width 19.1 % (11.5-17.5); White Blood Count 7.4 K/mm3 (4.8-10.8)
[2024-03-18 06:28] LABS: Chloride 110 mmol/L (98-107); Potassium 4.2 mmoL/L (3.5-5.1); Sodium 139 mmol/L (136-145)
[2024-03-18 06:31] LABS: Anion Gap 5.2 mEq/L (5-15); Blood Urea Nitrogen 13 mg/dl (7-17); Calcium 7.9 mg/dl (8.4-10.2); Carbon Dioxide 28 mmol/L (22.0-30.0); Creatinine Clearance Estimated 90 mL/min (50-200); Estimated Glomerular Filt Rate 72 ml/min (>60); GFR (African American) 88 ML/MIN (>60); Glucose 115 mg/dl (74-100)
[2024-03-18 08:00] VITALS: BP 104/64; PULSE 84; PULSE 85; RESP 22; TEMP 36.8; O2SAT 93
[2024-03-18] MEDS: METFORMIN 500MG TABLET 1000 MG PO (08:01)
[2024-03-18] MEDS: METOPROLOL SUCCINATE XL 25MG TABLET 25 MG PO (08:02)
[2024-03-18] MEDS: GABAPENTIN 600MG TABLET 600 MG PO (08:03)
[2024-03-18] MEDS: DULOXETINE 30MG CAPSULE.DR 60 MG PO (08:03)
[2024-03-18] MEDS: MORPHINE 2MG/ML SYRINGE 0.5 MG IV (08:04)
[2024-03-18] MEDS: TICAGRELOR 90MG TABLET 90 MG PO (08:04)
--- NOTE | 2024-03-18 08:45 | EXP.PN ---
Subjective *Date: 03/17/24 *Time: 08:45 Interval history: patient was seen and evaluated at the bedside. No reported acute events overnight, denies chest pain, shortness of breath, nausea, vomiting, abdominal pain. Exam Data for Last 24 hours Vital signs and Labs for Last 24 Hours: Temp Pulse Resp BP Pulse Ox O2 Del Method O2 Flow Rate 98.2 F 84 22 104/64 L 93 L Nasal Cannula 3 03/18/24 08:00 03/18/24 08:00 03/18/24 08:00 03/18/24 08:00 03/18/24 08:00 03/18/24 08:00 03/18/24 08:00 Laboratory Results - last 24 hr 03/17/24 05:54: 25-OH Vitamin D Total < 12.8 L 03/18/24 06:04: WBC 7.4 D, RBC 3.44 L, Hgb 7.4 L, Hct 25.8 L, MCV 75.1 L, MCH 21.5 L, MCHC 28.6 L, RDW 19.1 H, Plt Count 356, MPV 8.0, Neut % (Auto) 61.3, Lymph % (Auto) 28.3, [place] % (Auto) 4.8, Eos % (Auto) 4.9, Baso % (Auto) 0.9, Neut # (Auto) 4.6, Lymph # (Auto) 2.1, [place] # (Auto) 0.4, Eos # (Auto) 0.4, Baso # (Auto) 0.1, Sodium 139, Potassium 4.2, Chloride 110 H, Carbon Dioxide 28, Anion Gap 5.2, BUN 13, Creatinine 0.80, Estimated Creat Clear 90, Estimated GFR 72, Est GFR ( Amer) 88, Glucose 115 H, Calcium 7.9 L I & O for Last 24 hours: Intake & Output 03/15/24 03/16/24 03/17/24 03/18/24 23:59 23:59 23:59 23:59 Intake Total 1795 / 2370 981 / 981 Output Total 400 / 400 0 / 0 Balance 1395 / 1970 981 / 981 Weight 94.665 kg 94.665 kg 98.475 kg Constitutional Constitutional: no acute distress *Routine HEENT Exam Head: Present normocephalic Eye: Present EOMI and PERRL ENT: Present mucous membranes moist *Routine Neck Exam Neck: Present supple; Absent lymphadenopathy *Routine Respiratory Exam Respiratory: Present CTA bilaterally *Routine Cardiovascular Exam Cardiovascular: Present RRR *Routine Abdominal Exam Abdominal: Present soft, normoactive bowel sounds and tenderness *Routine Extremities Exam Extremities: Absent cyanosis, clubbing or edema *Routine Skin Exam Skin: Present warm; Absent rash *Routine Neurological Exam Neurological: Present alert and oriented X3 Assessment and Plan *Assessment and plan (1) Abdominal pain: Status: Acute Qualifiers: Abdominal location: epigastric Qualified Code(s): R10.13 - Epigastric pain Category: Medical Code(s): R10.9 - Unspecified abdominal pain (2) Nausea vomiting and diarrhea: Status: Acute Category: Medical Code(s): R11.2 - Nausea with vomiting, unspecified; R19.7 - Diarrhea, unspecified (3) Atrial fibrillation with RVR: Status: Acute Category: Medical Code(s): I48.91 - Unspecified atrial fibrillation (4) COPD (chronic obstructive pulmonary disease): Status: Chronic Qualifiers: COPD type: unspecified COPD Qualified Code(s): J44.9 - Chronic obstructive pulmonary disease, unspecified Category: Medical Code(s): J44.9 - Chronic obstructive pulmonary disease, unspecified (5) Hypertension: Status: Chronic Qualifiers: Hypertension type: essential hypertension Qualified Code(s): I10 - Essential (primary) hypertension Category: Medical Code(s): I10 - Essential (primary) hypertension (6) Hyperlipidemia: Status: Chronic Qualifiers: Hyperlipidemia type: mixed hyperlipidemia Qualified Code(s): E78.2 - Mixed hyperlipidemia Category: Medical Code(s): E78.5 - Hyperlipidemia, unspecified (7) Coronary artery disease: Status: Chronic Qualifiers: Coronary Disease-Associated Artery/Lesion type: [place] artery [place] vs. transplanted heart: [place] heart Associated angina: without angina Qualified Code(s): I25.10 - Atherosclerotic heart disease of [place] coronary artery without angina pectoris Category: Medical Code(s): I25.10 - Atherosclerotic heart disease of [place] coronary artery without angina pectoris (8) Diabetes mellitus: Status: Chronic Qualifiers: Diabetes mellitus type: type 2 Diabetes mellitus usp insulin use: without middle or intermediate school principal use Diabetes mellitus complication status: without complication Qualified Code(s): E11.9 - Type 2 diabetes mellitus without complications Category: Medical Code(s): E11.9 - Type 2 diabetes mellitus without complications (9) Pancreas divisum of [place] pancreas: Status: Acute Category: Medical Code(s): Q45.3 - Other congenital malformations of pancreas and pancreatic duct (10) Tobacco use: Status: Chronic Category: Social Hx Code(s): Z72.0 - Tobacco use Plan 63 yo F with PMHx COPD on home oxygen, NIDDM with neuropathy, Afib, HTN, HLD, referred Hx of pancreas divisum presented to ED for evaluation of epigastric abdominal pain that radiates to the back, associated nausea, vomiting, non bloody diarrhea, gradual in onset starting over the past 48 hours, constant, worsening. on arrival patient presented non toxic appearance. labs consistent with leukocytosis. normal lipase. CT of abdomen negative. Due to persistent of symptoms and pain, case was discussed with ED. agreed for admission. Plan as follow: -intractable epigastric abdominal pain, to rule out chronic pancreatitis vs gastritis presented with N/V/D Previous Hx of pancreas divisum. admit patient for medical monitoring Cont IV hydration pain management zofran for nauseas patient awaiting cardiac clearance for therapeutic endoscopy at [facility], [place]. Needs to follow up with GI. Afib w/ RVR: HR improved after metoprolol given cont cardiac monitoring presumed non medical compliance with home medications Others chronic condtions: HTN, HLD, COPD, CAD, NIDDM: conditions reviewed. reconciled and resume home meds obtain A1c hold HTN meds in the setting of hypotension resume metoprolol on Duloxetine and gabapentin Tobacco abuse: on nicotine patch Lovenox for DVt ppx. On protonix for GERD and ppx Full code plan is to advance diet, discussed with cardiology, no further work up needed per cardiology, f/u as OP with GI and cardiology,
[2024-03-18 09:57] LABS: Alanine Aminotransferase 20 U/L (12-78); Alkaline Phosphatase 122 U/L (38-126); Aspartate Amino Transferase 29 U/L (14-36); Bilirubin,Direct 0.1 mg/dl (0.0-0.4); Bilirubin,Indirect 0.3 mg/dL (0.0-0.9); Bilirubin,Total 0.4 mg/dl (0.2-1.3); Bilirubin,Unconjugated 0.3 mg/dL (0.0-1.1); Total Protein,Serum 5.9 g/dl (6.3-8.2)
[2024-03-18 10:09] LABS: Prealbumin 20 mg/dL (10-36)
--- NOTE | 2024-03-18 11:40 | EXP.DC.SUM ---
General Admission date:: 03/16/24 Discharge date: 03/18/24 HPI HPI HPI: This is a 63 yo F with PMHx COPD on home oxygen, NIDDM with neuropathy, Afib, HTN, HLD, referred Hx of pancreas divisum presented to ED for evaluation of epigastric abdominal pain that radiates to the back, associated nausea, vomiting, non bloody diarrhea, gradual in onset starting over the past 48 hours, constant, worsening, has had similar symptoms in the past associated with reported chronic pancreatitis in the setting of pancreatic divisum. She reports history of pancreatic stents, and been followed at [facility] for same reason. Patient stated been waiting for cardiac clearance to perform therapeutic endoscopy procedure. She denies any fevers or chills or urinary symptoms. Denies any overt chest pain, she has had difficulty tolerating p.o. intake. Previous therapies include p.o. analgesia [id number] with no improvement of symptoms. She states she has had similar symptoms in the past requiring hospitalization. No sick contacts, no recent travel, no back pain Hospital Course Hospital Course Hospital Course: 63 yo F with PMHx COPD on home oxygen, NIDDM with neuropathy, Afib, HTN, HLD, referred Hx of pancreas divisum presented to ED for evaluation of epigastric abdominal pain that radiates to the back, associated nausea, vomiting, non bloody diarrhea, gradual in onset starting over the past 48 hours, constant, worsening. on arrival patient presented non toxic appearance. labs consistent with leukocytosis. normal lipase. CT of abdomen negative. Due to persistent of symptoms and pain, case was discussed with ED. agreed for admission. Plan as follow: -intractable epigastric abdominal pain, to rule out chronic pancreatitis vs gastritis - resolved, tolerating diet and holding down food patient awaiting cardiac clearance for therapeutic endoscopy at [facility]. Needs to follow up with GI. - patient counseled on keeping up with the appointment Afib w/ RVR: - rate controlled, no changes recommended per cardiology per discussion with cardiology Others chronic condtions: HTN, HLD, COPD, CAD, NIDDM: tolerating diet, stable for discharge, Patient was seen and evaluated at the bedside on the day of discharge. Patient wishes to be discharged. All patient questions were answered and patient was given time to ask questions. Patient was discharged in stable condition. Patient understands that she can return to ER in case of any sudden changes in health. Total time spent on DC - 38 mins Exam Data for Last 24 hours Vital signs and Labs for Last 24 Hours: Temp Pulse Resp BP Pulse Ox O2 Del Method O2 Flow Rate 98.2 F 84 22 104/64 L 93 L Nasal Cannula 2.5 03/18/24 08:00 03/18/24 08:00 03/18/24 08:00 03/18/24 08:00 03/18/24 08:00 03/18/24 10:57 03/18/24 10:57 Laboratory Results - last 24 hr 03/17/24 05:54: Prealbumin 20 03/18/24 06:04: WBC 7.4 D, RBC 3.44 L, Hgb 7.4 L, Hct 25.8 L, MCV 75.1 L, MCH 21.5 L, MCHC 28.6 L, RDW 19.1 H, Plt Count 356, MPV 8.0, Neut % (Auto) 61.3, Lymph % (Auto) 28.3, [place] % (Auto) 4.8, Eos % (Auto) 4.9, Baso % (Auto) 0.9, Neut # (Auto) 4.6, Lymph # (Auto) 2.1, [place] # (Auto) 0.4, Eos # (Auto) 0.4, Baso # (Auto) 0.1, Sodium 139, Potassium 4.2, Chloride 110 H, Carbon Dioxide 28, Anion Gap 5.2, BUN 13, Creatinine 0.80, Estimated Creat Clear 90, Estimated GFR 72, Est GFR ( Amer) 88, Glucose 115 H, Calcium 7.9 L, Total Bilirubin 0.4, Direct Bilirubin 0.1, Conjugated Bilirubin 0.0, Indirect Bilirubin 0.3, Unconjugated Bilirubin 0.3, AST 29, ALT 20, Alkaline Phosphatase 122, Total Protein 5.9 L, Albumin 3.0 L D I & O for Last 24 hours: Intake & Output 03/15/24 03/16/24 03/17/24 03/18/24 23:59 23:59 23:59 23:59 Intake Total 1795 / 2370 981 / 981 Output Total 400 / 400 0 / 0 Balance 1395 / 1970 981 / 981 Weight 94.665 kg 94.665 kg 98.475 kg Constitutional Constitutional: no acute distress *Routine HEENT Exam Head: Present normocephalic Eye: Present EOMI and PERRL ENT: Present mucous membranes moist *Routine Neck Exam Neck: Present supple; Absent lymphadenopathy *Routine Respiratory Exam Respiratory: Present CTA bilaterally *Routine Cardiovascular Exam Cardiovascular: Present RRR *Routine Abdominal Exam Abdominal: Present soft and normoactive bowel sounds; Absent tenderness *Routine Extremities Exam Extremities: Absent cyanosis, clubbing or edema *Routine Skin Exam Skin: Present warm; Absent rash *Routine Neurological Exam Neurological: Present alert and oriented X3 Results Data Completed and Pending Labs on day of discharge: Labs from last 24 hours 03/18/24 03/17/24 06:04 05:54 WBC 7.4 D RBC 3.44 L Hgb 7.4 L Hct 25.8 L MCV 75.1 L MCH 21.5 L MCHC 28.6 L RDW 19.1 H Plt Count 356 MPV 8.0 Neut % (Auto) 61.3 Lymph % (Auto) 28.3 [place] % (Auto) 4.8 Eos % (Auto) 4.9 Baso % (Auto) 0.9 Neut # (Auto) 4.6 Lymph # (Auto) 2.1 [place] # (Auto) 0.4 Eos # (Auto) 0.4 Baso # (Auto) 0.1 Sodium 139 Potassium 4.2 Chloride 110 H Carbon Dioxide 28 Anion Gap 5.2 BUN 13 Creatinine 0.80 Estimated Creat Clear 90 Estimated GFR 72 Est GFR ( Amer) 88 Glucose 115 H Calcium 7.9 L Total Bilirubin 0.4 Direct Bilirubin 0.1 Conjugated Bilirubin 0.0 Indirect Bilirubin 0.3 Unconjugated Bilirubin 0.3 AST 29 ALT 20 Alkaline Phosphatase 122 Total Protein 5.9 L Albumin 3.0 L D Prealbumin 20 DS: Diagnosis Discharge Diagnosis (1) Abdominal pain: Status: Acute Code(s): R10.9 - Unspecified abdominal pain Qualifiers: Abdominal location: epigastric Qualified Code(s): R10.13 - Epigastric pain (2) Nausea vomiting and diarrhea: Status: Acute Code(s): R11.2 - Nausea with vomiting, unspecified; R19.7 - Diarrhea, unspecified (3) Atrial fibrillation with RVR: Status: Acute Code(s): I48.91 - Unspecified atrial fibrillation (4) COPD (chronic obstructive pulmonary disease): Status: Chronic Code(s): J44.9 - Chronic obstructive pulmonary disease, unspecified Qualifiers: COPD type: unspecified COPD Qualified Code(s): J44.9 - Chronic obstructive pulmonary disease, unspecified (5) Hypertension: Status: Chronic Code(s): I10 - Essential (primary) hypertension Qualifiers: Hypertension type: essential hypertension Qualified Code(s): I10 - Essential (primary) hypertension (6) Hyperlipidemia: Status: Chronic Code(s): E78.5 - Hyperlipidemia, unspecified Qualifiers: Hyperlipidemia type: mixed hyperlipidemia Qualified Code(s): E78.2 - Mixed hyperlipidemia (7) Coronary artery disease: Status: Chronic Code(s): I25.10 - Atherosclerotic heart disease of [place] coronary artery without angina pectoris Qualifiers: Coronary Disease-Associated Artery/Lesion type: [place] artery [place] vs. transplanted heart: [place] heart Associated angina: without angina Qualified Code(s): I25.10 - Atherosclerotic heart disease of [place] coronary artery without angina pectoris (8) Diabetes mellitus: Status: Chronic Code(s): E11.9 - Type 2 diabetes mellitus without complications Qualifiers: Diabetes mellitus type: type 2 Diabetes mellitus [place] insulin use: without senior living use Diabetes mellitus complication status: without complication Qualified Code(s): E11.9 - Type 2 diabetes mellitus without complications (9) Pancreas divisum of [place] pancreas: Status: Acute Code(s): Q45.3 - Other congenital malformations of pancreas and pancreatic duct (10) Tobacco use: Status: Chronic Code(s): Z72.0 - Tobacco use Meds Home Medications and Allergies Home Medications Medication Instructions Recorded Confirmed Type isosorbide mononitrate 30 mg 30 mg PO DAILY 10/24/21 03/17/24 History tablet,extended release 24 hr albuterol sulfate 2.5 mg/3 mL 2.5 mg inhalation Q6H 04/01/23 03/17/24 History (0.083 %) solution for nebulization omeprazole 40 mg capsule,delayed 40 mg PO DAILY 04/08/23 03/16/24 History release potassium chloride 10 mEq 10 meq PO DAILY 06/09/23 03/16/24 History tablet,extended release albuterol sulfate 90 mcg/actuation 2 inh inhalation Q4HP PRN 07/13/23 03/16/24 History aerosol inhaler Shortness Of Breath Or Wheezing atorvastatin 40 mg tablet 40 mg PO HS 07/13/23 03/16/24 History nitroglycerin 0.4 mg sublingual 0.4 mg sublingual Q5MINP PRN chest 07/13/23 03/16/24 History tablet pain trazodone 100 mg tablet 100 mg PO DAILY #90 tabs 08/22/23 03/16/24 Rx losartan 50 mg tablet 50 mg PO DAILY #90 tabs 11/06/23 03/17/24 Rx gabapentin 600 mg tablet 600 mg PO BID #60 tabs 12/24/23 03/16/24 Rx alprazolam 1 mg tablet 1 mg PO BID PRN Anxiety #60 tabs 01/09/24 03/16/24 Rx metformin 1,000 mg tablet 1,000 mg PO BID #180 tabs 01/09/24 03/16/24 Rx ropinirole 0.25 mg tablet 0.25 mg PO HS Restless Leg(S) #30 02/18/24 03/16/24 Rx tabs promethazine 25 mg tablet 25 mg PO TID PRN Nausea And 03/16/24 03/16/24 History Vomiting conjugated estrogens 0.3 mg tablet 0.3 mg PO DAILY 03/17/24 03/17/24 History duloxetine 60 mg capsule,delayed 60 mg PO BID 03/17/24 03/17/24 History release levothyroxine 100 mcg tablet 100 mcg PO DAILY 03/17/24 03/17/24 History montelukast 10 mg tablet 10 mg PO HS 03/17/24 03/17/24 History quetiapine 50 mg tablet 50 mg PO HS 03/17/24 03/17/24 History rivaroxaban 20 mg tablet 20 mg PO HS 03/17/24 03/17/24 History ticagrelor 90 mg tablet 90 mg PO BID 03/17/24 03/17/24 History metoprolol succinate 25 mg 25 mg PO DAILY 03/18/24 03/18/24 History tablet,extended release 24 hr New Prescriptions to Start Prescriptions: Allergies Allergy/AdvReac Type Severity Reaction Status Date / Time codeine [CODEINE] Allergy Intermediate N/V Verified 03/15/24 14:06 ketorolac [KETOROLAC] Allergy Intermediate Hives Verified 03/15/24 14:06 meperidine [MEPERIDINE] Allergy Intermediate Hives Verified 03/15/24 14:06 tramadol [TRAMADOL] Allergy Intermediate Hives Verified 03/15/24 14:06 verapamil Allergy Mild Unknown Verified 03/15/24 14:06 allergy reaction ciprofloxacin AdvReac Severe Interacts Verified 03/15/24 14:06 with tila Discharge Plan Disposition Patient Disposition: Home, Self-Care Condition: Fair Follow up Plan Follow up with: Juan C Colón MD [Primary Care Provider] - 03/19/24 8:45 am Tarun Torres MD [Staff Physician] - 04/01/24 9:15 am Prescriptions/Medication Reconciliation: Continued omeprazole 40 mg capsule,delayed release(DR/EC) 40 mg PO DAILY metformin 1,000 mg tablet 1,000 mg PO BID Qty: 180 3RF alprazolam 1 mg tablet 1 mg PO BID PRN (Reason: Anxiety) Qty: 60 2RF Rx Instructions: this is a dose adjustment use very sparingly trazodone 100 mg tablet 100 mg PO DAILY Qty: 90 3RF losartan 50 mg tablet 50 mg PO DAILY Qty: 90 3RF potassium chloride 10 mEq tablet extended release 10 meq PO DAILY atorvastatin 40 mg tablet 40 mg PO HS nitroglycerin 0.4 mg tablet, sublingual 0.4 mg sublingual Q5MINP PRN (Reason: chest pain) Rx Instructions: do not exceed 3 doses per episode albuterol sulfate 90 mcg/actuation HFA aerosol inhaler 2 inh IH Q4HP PRN (Reason: Shortness Of Breath Or Wheezing) gabapentin 600 mg tablet 600 mg PO BID Qty: 60 2RF ropinirole 0.25 mg tablet 0.25 mg PO HS Qty: 30 2RF Rx Instructions: administer 1-3 hours before bedtime isosorbide mononitrate 30 MG tablet extended release 24 hr 30 mg PO DAILY albuterol sulfate 2.5 mg /3 mL (0.083 %) solution for nebulization 2.5 mg inhalation Q6H promethazine 25 mg tablet 25 mg PO TID PRN (Reason: Nausea And Vomiting) montelukast 10 mg tablet 10 mg PO HS Rx Instructions: take 1 tablet by mouth at bedtime for Allergy symptoms levothyroxine 100 mcg Tablet 100 mcg PO DAILY quetiapine 50 mg Tablet 50 mg PO HS ticagrelor 90 mg Tablet 90 mg PO BID rivaroxaban 20 mg Tablet 20 mg PO HS conjugated estrogens 0.3 mg Tablet 0.3 mg PO DAILY Rx Instructions: cyclically duloxetine 60 mg capsule,delayed release(DR/EC) 60 mg PO BID Patient Comments: take 1 capsule by mouth twice a day for Depression metoprolol succinate 25 mg tablet extended release 24 hr 25 mg PO DAILY Patient Comments: TAKE ONE TABLET BY MOUTH DAILY Problem Reconciliation Problems Reviewed?: Yes Patient Discharge Instructions ACTIVITY: Ambulate as tolerated DIET: low fat, low cholesterol Patient Instructions: DI for Pancreatitis, DI for Abdominal Pain-Adult Providers Primary Care Provider: Juan C Colón Admit Provider: Olu Ulrich Attending Provider: Olu Ulrich
--- NOTE | 2024-03-19 11:11 | CARE MANAGER ---
Contacted patient related to hospital discharge. She states she is having an increase in shortness of breath. She reports this is whether she is resting or upon exertion. She denies any increase in swelling and is on her baseline 2.5LPM/NC of O2. She had an appointment with PCP this morning but she cancelled it due to transportation issues and rescheduled it. She has no new medications and is aware of cardiology appointment. Recommended she seek medical attention if increase shortness of breath continues. Denies any questions or concerns at this time. LAITH Oliveira
== END 2024-03-18 12:32 | disposition home or self-care (01) ==
LOC: ER 17:45 → 2ND 20:51
PROVIDERS: Nurse Practitioner Family; Admitting Provider Internal Medicine; Emergency Provider Emergency Medicine; PCP Family Medicine; Visit Provider Internal Medicine
DX: R10.13 Epigastric pain (principal); R11.2 Nausea with vomiting, unspecified; R19.7 Diarrhea, unspecified; I48.91 Unspecified atrial fibrillation; J44.9 Chronic obstructive pulmonary disease, unspecified; I10 Essential (primary) hypertension; E78.2 Mixed hyperlipidemia; I25.110 Atherosclerotic heart disease of native coronary artery with unstable angina pectoris; E11.9 Type 2 diabetes mellitus without complications; F17.210 Nicotine dependence, cigarettes, uncomplicated; Z79.899 Other long term (current) drug therapy; Z79.84 Long term (current) use of oral hypoglycemic drugs; Z79.01 Long term (current) use of anticoagulants; Z99.81 Dependence on supplemental oxygen; Z96.89 Presence of other specified functional implants; Q45.3 Other congenital malformations of pancreas and pancreatic duct; J96.11 Chronic respiratory failure with hypoxia; Z86.73 Personal history of transient ischemic attack (TIA), and cerebral infarction without residual deficits
CPT/HCPCS: 74177; 80048; 80053; 80076; 81001; 82248; 82306; 83036; 83690; 83735; 84134; 85025; 93005; 99285; G0378; J1642; J2405; Q9967

== ENCOUNTER 2024-03-24 07:49 | Outpatient (CLI) | payer MEDICARE, MEDICAID, SELFPAY ==
--- NOTE | 2024-03-24 | CA_ITS ---
APPROVED REPORT Exam: Pharmacologic Technologist: Kasia Lincoln, Ht: 5 ft 6 in Wt: 209 lbs BSA: 2.04 m2 HR: 116 bpm BP: 129/72 mmHg Rhythm: Afib with RVR Medical History Medications: Lisinopril,,,,, Omeprazole,,,,, Alprazolam,,,,, Levothyroxine,,,,, Metformin,,,,, Trazadone,,,,, Gabapentin,,,,, Losartan,,,,, Atorvastatin,,,,, Metoprolol Succinate,,,,, Ropinirole,,,,, Albuterol,,,,, Cardiac Risk Factors: Hyperlipidemia, Smoking Stress Test Details Test: LEXISCAN HR Resting HR: 120 bpm Max Heart Rate (APMHR): 157 bpm Max HR Achieved: 139 bpm Target HR (85% APMHR): 133 bpm % of APMHR: 89 Recovery HR: 127 bpm BP Resting BP: 129/72 mmHg Max BP: 132/75 mmHg Recovery BP: 117.0/79.0 mmHg ECG Resting ECG: Afib with RVR Stress ECG: No significant ST changes, brief conversion to NSR then reverted to AFib Clinical Exercise duration: 04:00 min Highest Stage Achieved: Stress ECG Conclusion During lexiscan pt experinced SOA. No CP noted. Short period of sinus nadege, after which he reverted to AFib. No significant ST changes. Conclusion: On arrival, the patient was in AFib. She converted briefly to NSR then reverted to AFib. Unremarkable lexiscan stress. Myoview images reported separately. Test Summary REST . . . . . . . Sitting REST 05:22 . . 120 . 129/ 72 . . Stage 1 01:00 . . 111 . . . . Stage 2 01:00 . . 109 . . . . Stage 3 01:00 . . 108 . 121/ 87 . . Stage 4 01:00 . . 115 . 125/ 80 . Stop exercise at 04:00 RECOVERY 01:00 . . 127 . . . . RECOVERY 02:00 . . 122 . . . . RECOVERY 03:00 . . 109 . 117/ 79 . . RECOVERY 03:28 . . 105 . 132/ 75 . . Electronically signed by : Porsha Torres MD 03/24/2024 13:58:46
--- NOTE | 2024-03-24 07:54 | NM_ITS ---
APPROVED REPORT Exam: Nuclear Stress Test Indication: Chest pain, Abnormal EKG, SOB, Palpitations, HTN, DM, High cholesterol, CAD Patient Location: Outpatient Stress Tech: Kasia Lincoln NM Tech:Joellen Baker, ARRT, RT (R)(N) Ht: 5 ft 6 in Wt: 208 lbs Bra Size: 42D HR: 120 bpm BP: 129/72 mmHg BSA: 2.03 m2 TID: 1.04 BMI: 33.5 History: Chest pain, Abnormal EKG, SOB, Palpitations, HTN, DM, High cholesterol, CAD Procedure: Patient received 0.4 mg of intravenous Lexiscan, resting heart rate 120 bpm, resting blood pressure 129/72 mmHg, with Lexiscan maximum heart rate achieved was 139 bpm which is % of the maximum predicted heart rate and blood pressure was 132/75 mmHg. With Lexiscan, patient denied any complaint of chest pain. Cardiac Stress and Resting SPECT Images: Cardiac Stress and Resting SPECT images were obtained using technetium 99m Myoview 32.2 mCi stress and 10.56 mCi at rest. The patient was not able to lie on her abdomen. Therefore, prone stress imaging could not be performed. This may affect the diagnostic interpretation of the study findings. Resting and stress imaging in supine position demonstrated no evidence of fixed reversible perfusion defects. Gated imaging demonstrates low normal global LV systolic function LVEF is calculated at 53%. The RV wall appears thickened. Of note, on arrival, the patient was in AFib. She converted briefly to NSR then reverted to AFib. Unremarkable lexiscan stress. Myoview images reported separately. Conclusion: No evidence of fixed reversible perfusion defects. Gated imaging demonstrates low normal global LV systolic function LVEF is calculated at 53%. The RV wall appears thickened. Of note, on arrival, the patient was in AFib. She converted briefly to NSR then reverted to AFib. Unremarkable lexiscan stress. Myoview images reported separately. Electronically signed by : Porsha Torres MD 03/24/2024 14:01:05
[2024-03-24] MEDS: REGADENOSON 0.4MG/5ML SYRINGE 0.400000000000000022 MG IV (09:26)
[2024-03-24] MEDS: ISOTOPE MYOVIEW (PER STUDY) 1 DOSE IV (09:26)
[2024-03-24] MEDS: SODIUM CHLORIDE 0.9% 10ML SYR (RAD ONLY) 10 ML IV ×2 (09:26)
== END 2024-03-24 23:59 | disposition home or self-care (01) ==
LOC: RAD 07:49
PROVIDERS: PCP Family Medicine; Visit Provider Nurse Practitioner
DX: I25.119 Atherosclerotic heart disease of native coronary artery with unspecified angina pectoris (principal); R07.9 Chest pain, unspecified
CPT/HCPCS: 78452; 93017; 93018; A9502; J2785

== ENCOUNTER 2024-05-10 17:29 | Emergency (ER) | payer MEDICARE, MEDICAID, SELFPAY ==
--- NOTE | 2024-05-10 17:53 | ED_ITS ---
<Statement entered by Nicolas Armendariz MD - 05/10/24 22:50> I was consulted by the STERLING, and we discussed the complexity of the problems being addressed. I approved the treatment and management plan for this patient's care in the emergency department, thus performing a substantive portion of the medical decision making. Nicolas Armendariz MD Discharge Plan Disposition Patient Disposition: Home, Self-Care Condition: Good Prescriptions Prescriptions: No Action omeprazole 40 mg capsule,delayed release(DR/EC) 40 mg PO DAILY metformin 1,000 mg tablet 1,000 mg PO BID Qty: 180 3RF trazodone 100 mg tablet 100 mg PO DAILY Qty: 90 3RF losartan 50 mg tablet 50 mg PO DAILY Qty: 90 3RF alprazolam 1 mg tablet 1 mg PO DAILY PRN (Reason: Anxiety) Qty: 30 2RF Rx Instructions: this is a dose adjustment use very sparingly atorvastatin 40 mg tablet 40 mg PO HS Qty: 90 3RF levothyroxine 100 mcg tablet 100 mcg PO DAILY Qty: 90 3RF conjugated estrogens 0.3 mg tablet 0.3 mg PO DAILY Qty: 30 1RF Rx Instructions: cyclically duloxetine 60 mg capsule,delayed release(DR/EC) 60 mg PO BID Qty: 30 1RF quetiapine 50 mg tablet 50 mg PO HS Qty: 30 1RF potassium chloride 10 mEq tablet extended release 10 meq PO DAILY nitroglycerin 0.4 mg tablet, sublingual 0.4 mg sublingual Q5MINP PRN (Reason: chest pain) Rx Instructions: do not exceed 3 doses per episode albuterol sulfate 90 mcg/actuation HFA aerosol inhaler 2 inh IH Q4HP PRN (Reason: Shortness Of Breath Or Wheezing) gabapentin 600 mg tablet 600 mg PO BID Qty: 60 2RF ropinirole 0.25 mg tablet 0.25 mg PO HS Qty: 30 2RF Rx Instructions: administer 1-3 hours before bedtime gabapentin 600 mg tablet 600 mg PO BID Qty: 60 2RF ropinirole 0.25 mg tablet 0.25 mg PO HS Qty: 30 2RF Rx Instructions: administer 1-3 hours before bedtime isosorbide mononitrate 30 MG tablet extended release 24 hr 30 mg PO DAILY albuterol sulfate 2.5 mg /3 mL (0.083 %) solution for nebulization 2.5 mg inhalation Q6H promethazine 25 mg tablet 25 mg PO TID PRN (Reason: Nausea And Vomiting) montelukast 10 mg tablet 10 mg PO HS Rx Instructions: take 1 tablet by mouth at bedtime for Allergy symptoms ticagrelor 90 mg Tablet 90 mg PO BID rivaroxaban 20 mg Tablet 20 mg PO HS metoprolol succinate 25 mg tablet extended release 24 hr 25 mg PO DAILY Patient Comments: TAKE ONE TABLET BY MOUTH DAILY Referrals Follow up/Referrals: Juan C Colón MD [Primary Care Provider] - See instructions Activity Restrictions/Add. Instructions Additional Instructions/Restrictions: Follow-up with your PCP for any worsening symptoms. Worsening signs Clinical Impressions Clinical Impression: Nausea vomiting and diarrhea Instructions Patient Instructions: DI for Diarrhea and Traveler's Diarrhea -- Adult, Nausea and Vomiting-Adult Discharge ED Provider: Nicolas Armendariz General Adult HPI General Chief complaint: Nausea/Vomiting/Diarrhea Stated complaint: diarrhea, abd pain, falling around Time Seen by Provider: 05/10/24 17:53 History of Present Illness HPI narrative: Patient presents for 3 days of nausea vomiting and abdominal pain. Patient arrives with copies of her most recent bidirectional endoscopy done by gastroenterology that showed upper endoscopy consistent with Almaguer's esophagus and possible celiac disease for which biopsies are still pending and a lower endoscopy that showed diverticulosis of the sigmoid and descending colon. That was done last month however patient reports over the last 3 days she has been having nonstop nausea vomiting and loose stool with abdominal pain without chest pain shortness of breath fever chills hemoptysis hematochezia melena. Related Data Home Medications Medication Instructions Recorded Confirmed isosorbide mononitrate 30 mg 30 mg PO DAILY 10/24/21 03/24/24 tablet,extended release 24 hr albuterol sulfate 2.5 mg/3 mL 2.5 mg inhalation Q6H 04/01/23 03/24/24 (0.083 %) solution for nebulization omeprazole 40 mg capsule,delayed 40 mg PO DAILY 04/08/23 03/24/24 release potassium chloride 10 mEq 10 meq PO DAILY 06/09/23 03/24/24 tablet,extended release albuterol sulfate 90 mcg/actuation 2 inh inhalation Q4HP PRN 07/13/23 03/24/24 aerosol inhaler Shortness Of Breath Or Wheezing nitroglycerin 0.4 mg sublingual 0.4 mg sublingual Q5MINP PRN chest 07/13/23 03/24/24 tablet pain promethazine 25 mg tablet 25 mg PO TID PRN Nausea And 03/16/24 03/24/24 Vomiting montelukast 10 mg tablet 10 mg PO HS 03/17/24 03/24/24 rivaroxaban 20 mg tablet 20 mg PO HS 03/17/24 03/24/24 ticagrelor 90 mg tablet 90 mg PO BID 03/17/24 03/24/24 metoprolol succinate 25 mg 25 mg PO DAILY 03/18/24 03/24/24 tablet,extended release 24 hr Previous Rx's Medication Instructions Recorded trazodone 100 mg tablet 100 mg PO DAILY #90 tabs 08/22/23 losartan 50 mg tablet 50 mg PO DAILY #90 tabs 11/06/23 gabapentin 600 mg tablet 600 mg PO BID #60 tabs 12/24/23 metformin 1,000 mg tablet 1,000 mg PO BID #180 tabs 01/09/24 ropinirole 0.25 mg tablet 0.25 mg PO HS Restless Leg(S) #30 02/18/24 tabs gabapentin 600 mg tablet 600 mg PO BID #60 tabs 03/22/24 ropinirole 0.25 mg tablet 0.25 mg PO HS #30 tabs 03/22/24 alprazolam 1 mg tablet 1 mg PO DAILY PRN Anxiety #30 tabs 04/08/24 atorvastatin 40 mg tablet 40 mg PO HS #90 tabs 04/08/24 levothyroxine 100 mcg tablet 100 mcg PO DAILY #90 tabs 04/08/24 conjugated estrogens 0.3 mg tablet 0.3 mg PO DAILY #30 tabs 04/15/24 duloxetine 60 mg capsule,delayed 60 mg PO BID #30 caps 04/15/24 release quetiapine 50 mg tablet 50 mg PO HS #30 tabs 04/15/24 Allergies Allergy/AdvReac Type Severity Reaction Status Date / Time codeine [CODEINE] Allergy Intermediate N/V Verified 03/24/24 13:24 ketorolac [KETOROLAC] Allergy Intermediate Hives Verified 03/24/24 13:24 meperidine [MEPERIDINE] Allergy Intermediate Hives Verified 03/24/24 13:24 tramadol [TRAMADOL] Allergy Intermediate Hives Verified 03/24/24 13:24 verapamil Allergy Mild Unknown Verified 03/24/24 13:24 allergy reaction ciprofloxacin AdvReac Severe Interacts Verified 03/24/24 13:24 with cymbalta [facility] Disclaimer: The information contained in this section may have been updated after the patient was seen, as this information can be updated by other users. Medical History COPD (chronic obstructive pulmonary disease) HLD (hyperlipidemia) Diabetes Anxiety and depression TIA (transient ischemic attack) History of stroke History of multiple cerebrovascular accidents (CVAs) History of class III angina pectoris Unstable angina Typical angina Dyspnea History of pancreatitis History of CVA (cerebrovascular accident) Surgical History History of biliary duct stent placement History of hysterectomy History of cholecystectomy History of coronary artery stent placement Family History Other Family history of cancer Family history of diabetes mellitus Social History Smoking Status: Never smoker second hand exposure: No alcohol intake: never counseling provided: none substance use type: marijuana and crack/cocaine current occupational status: retired and other Travel in the last 8 weeks: None household members: spouse housing: house number of children: 2 current occupational exposures/hazards: No caffeine: Yes ROS Obtained: Yes Systems reviewed as appropriate & no additional complaints except as documented Physical Exam General General appearance: alert and in no apparent distress Respiratory Respiratory exam: Present normal lung sounds bilaterally Cardiovascular Cardiovascular exam: Present regular rate, normal rhythm and normal heart sounds Abdominal Exam Abdominal exam: Present soft (Obese), tenderness (Mildly diffusely subjectively tender to palpation but abdomen is very soft.) and normal bowel sounds; Absent guarding, rebound or rigidity Neurological Exam Neurological exam: Present alert and oriented X3 Medical Decision Making Medical Records Medical records reviewed: Yes I reviewed the patient's medical records. Delroy Inquiry Pt receiving controlled substance: No Vital Signs: 05/10/24 18:10 05/10/24 18:11 05/10/24 18:31 Temperature 98.2 F Temperature Source Oral Pulse Rate 69 67 Pulse Rate [Left Radial] 67 Respiratory Rate 20 Blood Pressure 137/84 150/82 H Blood Pressure [Right Arm] 137/84 Blood Pressure Mean 101 104 Blood Pressure Mean [Right Arm] 101 02 Sat by Pulse Oximetry 100 100 99 Oxygen Delivery Method Room Air 05/10/24 20:13 Temperature 98.2 F Temperature Source Oral Pulse Rate 68 Pulse Rate [Left Radial] Respiratory Rate 20 Blood Pressure 150/72 H Blood Pressure [Right Arm] Blood Pressure Mean Blood Pressure Mean [Right Arm] 02 Sat by Pulse Oximetry Oxygen Delivery Method Lab Data Lab results reviewed: Yes I reviewed the patient's lab results. Lab Results 05/10/24 17:58: Urine Color Yellow, Urine Appearance Clear, Urine pH 7.5, Ur Specific [place] 1.010, Urine Protein Negative, Urine Glucose (UA) Negative, Urine Ketones Negative, Urine Blood Negative, Urine Nitrate Negative, Urine Bilirubin Negative, Urine Urobilinogen 1.0, Ur Leukocyte Esterase Negative, Urine RBC None, Urine WBC None, Ur Squamous Epith Cells 3-5, Urine Bacteria None 05/10/24 18:10: WBC 9.9, RBC 4.23, Hgb 9.0 L, Hct 31.6 L, MCV 74.8 L, MCH 21.3 L , MCHC 28.5 L, RDW 18.8 H, Plt Count 458 H, MPV 8.9, Neut % (Auto) 57.2, Lymph % (Auto) 34.6, [place] % (Auto) 3.8, Eos % (Auto) 3.6, Baso % (Auto) 0.8, Neut # (Auto) 5.7, Lymph # (Auto) 3.4, [place] # (Auto) 0.4, Eos # (Auto) 0.4, Baso # (Auto) 0.1, Sodium 136, Potassium 3.9, Chloride 103, Carbon Dioxide 25, Anion Gap 11.9, BUN 13, Creatinine 0.90, Estimated Creat Clear 89, Estimated GFR 63, Est GFR ( Amer) 77, Glucose 126 H, Calcium 8.7, Magnesium 1.4 L, Total Bilirubin 0.5, AST 29, ALT 20, Alkaline Phosphatase 115, Total Protein 7.2, Albumin 3.8, Globulin 3.4 H, Albumin/Globulin Ratio 1.1, Lipase 325 H 05/10/24 18:10 05/10/24 18:10 Orders (Tests/Meds): ED MEDICATIONS Discontinued Medications Generic Name Dose Route Start Last Admin Trade Name Freq PRN Reason Stop Dose Admin Acetaminophen 1,000 mg 05/10/24 18:08 05/10/24 18:18 Acetaminophen 1,000mg/100ml Vial IV 05/10/24 18:09 1,000 mg ONCE ONE Administration Heparin Sodium (Porcine) 300 unit 05/10/24 20:04 Heparin Lock Flush 500 Units/5ml Syr IV 05/10/24 20:05 ONCE ONE Lactated Ringer's 1,000 mls @ 999 mls/hr 05/10/24 18:08 05/10/24 18:20 Lactated Ringer's 1000 Ml Bag IV 05/10/24 19:08 999 mls/hr .Q1H1M ONE Administration Magnesium Sulfate 2 gm in 50 mls @ 50 mls/hr 05/10/24 18:29 05/10/24 19:08 Magnesium Sulfate 2gm/50ml Premix IV 05/10/24 19:28 50 mls/hr ONCE ONE Administration Iopamidol 75 ml 05/10/24 18:41 05/10/24 18:42 Iopamidol-370 (76%);100ml Bottle IV 05/10/24 18:42 75 ml ONCE ONE Administration Ondansetron HCl 4 mg 05/10/24 18:08 05/10/24 18:18 Ondansetron 4mg/2ml Vial IV 05/10/24 18:09 4 mg ONCE ONE Administration Sodium Chloride 10 ml 05/10/24 18:41 05/10/24 18:42 Sodium Chloride 0.9% 10ml Syr (Rad Only) IV 05/10/24 18:42 10 ml ONCE ONE Administration ORDERS Category Date Time Status CT abdomen pelvis w con Stat Cat Scan 05/10/24 18:08 Completed CBC w/Auto Diff [Complete Blood Count Auto Diff] Stat Lab 05/10/24 18:10 Completed CMP [Comprehensive Metabolic Panel] Stat Lab 05/10/24 18:10 Completed Lipase Stat Lab 05/10/24 18:10 Completed Magnesium Stat Lab 05/10/24 18:10 Completed UA [Urinalysis and Microscopic] Stat Lab 05/10/24 17:58 Completed Medical Decision Narrative: In summary patient is a 63-year-old female who presents to the emergency department for evaluation of nausea vomiting abdominal pain. Patient is hemodynamically stable with a heart rate of 69 sat of 100% on room air respiratory rate of 20 temperature 98.2. Physical exam is remarkable for diffuse abdominal mild tenderness to palpation however her belly exam is soft and normal bowel sounds. Differential diagnosis includes gastroenteritis versus celiac disease versus obstruction versus diverticulitis etc. Initial workup will be conducted with hematologic labs CT scan of the abdomen pelvis urinalysis. Initial interventions include crystalloid bolus Toradol Tylenol Zofran. Initial workup reviewed by me shows that her hematologic labs are normal including normal white count normal electrolytes normal bilirubin normal lipase normal transaminases my informal interpretation of her CT scan her abdomen pelvis does not show any acute processes and does show descending and sigmoid diverticulosis without diverticulitis. Upon repeat evaluation patient reported improvement in her nausea but has not had any vomiting or diarrhea since arrival to the emergency department. Given this patient is appropriate for discharge with symptomatic treatment including brat diet IV hydration and follow-up with her PCP or return to ER for any worsening signs or symptoms. Critical Care Critical Care Time Critical Care Time: No
--- NOTE | 2024-05-10 18:08 | CT_ITS ---
PROCEDURE INFORMATION: Exam: CT Abdomen And Pelvis With Contrast Exam date and time: 05/10/2024 6:41 PM Age: 63 years old Clinical indication: Abdominal pain; Acute; Additional info: Acute abdominal pain TECHNIQUE: Imaging protocol: Computed tomography of the abdomen and pelvis with contrast. Radiation optimization: All CT scans at this facility use at least one of these dose optimization techniques: automated exposure control; mA and/or kV adjustment per patient size (includes targeted exams where dose is matched to clinical indication); or iterative reconstruction. Contrast material: ISOVUE; Contrast volume: 75 ml; Contrast route: IV; COMPARISON: CT ABDOMEN PELVIS W CON 03/16/2024 7:21 PM FINDINGS: Tubes, catheters and devices: Pain pump in the subcutaneous fat of the right back with the lead entering the spinal canal at the L5-S1 level and terminating at T12. Lungs: Mild emphysema and mild atelectasis at the lung bases. Heart: Mild mitral annulus calcification. Coronary arteries: Mild coronary artery calcification. Liver: Mild hepatic steatosis with mild hepatomegaly. No liver lesions. Gallbladder and bile ducts: Status post cholecystectomy. No significant biliary ductal dilitation. Pancreas: Normal. No ductal dilation. Spleen: Calcified granulomas in the spleen. No splenomegaly. Adrenal glands: Normal. No mass. Kidneys and ureters: 3.2 cm simple cyst in the lower pole of the right kidney. No other abnormality. Stomach and bowel: Descending and sigmoid colon diverticulosis without diverticulitis. No dilated or thickened bowel loops. Appendix: Status post appendectomy. Intraperitoneal space: Unremarkable. No free air. No significant fluid collection. Vasculature: Moderate aortoiliac atherosclerotic disease without aneurysm. Lymph nodes: Unremarkable. No enlarged lymph nodes. Urinary bladder: Unremarkable as visualized. Reproductive: Status post hysterectomy. No adnexal masses. Bones/joints: Mild lumbar spine degenerative change. Two fusion screws in place across the right sacroiliac joint. Severe degenerative change of the right hip. Soft tissues: Small fat containing umbilical hernia. IMPRESSION: No acute intra-abdominal findings. COMMENTS: Consistent with the [employer]'s Incidental Findings Committee white paper (J Am Adela Radiol 2018): Any incidental renal lesion less than 1 cm or classified as too small to characterize, or any incidental cystic renal lesion characterized as simple-appearing, is likely benign. No follow-up imaging is recommended for these lesions per consensus recommendations based on imaging criteria.
[2024-05-10 18:10] VITALS: BP 137/84; PULSE 69; O2SAT 100
[2024-05-10 18:11] VITALS: BP 137/84; PULSE 67; RESP 20; TEMP 36.8; O2SAT 100; BMI 35.0
[2024-05-10 18:16] LABS: Microscopic, Urine URINE MICROSCOPIC (MICROSCOPIC)
[2024-05-10 18:18] LABS: Basophils # 0.1 K/mm3 (0-0.2); Basophils % 0.8 % (0.1-2.0); Eosinophils # 0.4 K/mm3 (0.0-0.4); Eosinophils % 3.6 % (0.1-12.0); Hematocrit 31.6 % (37.0-47.0); Lymphocytes # 3.4 K/mm3 (0.7-4.5); Lymphocytes % 34.6 % (10-50); Mean Corpuscular HGB Conc 28.5 g/dL (31.8-35.4); Mean Corpuscular Hemoglobin 21.3 pg (27.0-31.2); Mean Corpuscular Volume 74.8 fl (81-99); Mean Platelet Volume 8.9 fl (7.4-10.4); Monocytes # 0.4 K/mm3 (0.1-1.0); Monocytes % 3.8 % (1.7-9.3); Neutrophils # 5.7 K/mm3 (1.8-7.8); Neutrophils % 57.2 % (37.0-80.0); Platelet Count 458 K/mm3 (142-424); Red Blood Count 4.23 M/mm3 (4.20-5.40); Red Cell Distribution Width 18.8 % (11.5-17.5); White Blood Count 9.9 K/mm3 (4.8-10.8)
[2024-05-10] MEDS: ACETAMINOPHEN 1,000MG/100ML VIAL 1000 MG IV (18:18)
[2024-05-10] MEDS: ONDANSETRON 4MG/2ML VIAL 4 MG IV (18:18)
[2024-05-10] MEDS: LACTATED RINGERS 1000ML 1,000 ML 999 ML IV (18:20)
[2024-05-10 18:22] LABS: Appearance,Urine CLEAR (Clear); Bilirubin,Urine Negative (Negative); Blood, Urine Negative (Negative); Color,Urine YELLOW (Yellow); Glucose,Urine (UA) Negative (Negative); Ketones,Urine Negative (Negative); Leukocyte Esterase,Urine Negative (Negative); Nitrate,Urine Negative (Negative); PH,Urine 7.5 (5.0-8.5); Protein,Urine Negative (Negative)
[2024-05-10 18:24] LABS: Chloride 103 mmol/L (98-107); Potassium 3.9 mmoL/L (3.5-5.1); Sodium 136 mmol/L (136-145)
[2024-05-10 18:26] LABS: Alanine Aminotransferase 20 U/L (12-78); Alkaline Phosphatase 115 U/L (38-126); Anion Gap 11.9 mEq/L (5-15); Aspartate Amino Transferase 29 U/L (14-36); Bilirubin,Total 0.5 mg/dl (0.2-1.3); Blood Urea Nitrogen 13 mg/dl (7-17); Carbon Dioxide 25 mmol/L (22.0-30.0); Creatinine Clearance Estimated 89 mL/min (50-200); Estimated Glomerular Filt Rate 63 ml/min (>60); GFR (African American) 77 ML/MIN (>60); Lipase 325 U/L (23-300)
[2024-05-10 18:27] LABS: Albumin Level 3.8 g/dl (3.5-5.0); Albumin/Globulin Ratio 1.1 (1.1-1.8); Calcium 8.7 mg/dl (8.4-10.2); Globulin 3.4 g/dL (1.3-3.2); Glucose 126 mg/dl (74-100); Magnesium 1.4 mg/dl (1.6-2.3); Total Protein,Serum 7.2 g/dl (6.3-8.2)
[2024-05-10 18:31] VITALS: BP 150/82; PULSE 67; O2SAT 99
[2024-05-10] MEDS: IOPAMIDOL-370 (76%);100ML BOTTLE 75 ML IV (18:42)
[2024-05-10] MEDS: SODIUM CHLORIDE 0.9% 10ML SYR (RAD ONLY) 10 ML IV (18:42)
[2024-05-10] MEDS: MAGNESIUM SULFATE IN WATER 2 GM/50 ML PIGGYBACK IV (19:08)
[2024-05-10 20:13] VITALS: BP 150/72; PULSE 68; RESP 20; TEMP 36.8; O2SAT 99
== END 2024-05-10 20:14 | disposition home or self-care (01) ==
PROVIDERS: Physician Assistant; Emergency Provider Emergency Medicine; PCP Family Medicine
DX: R10.817 Generalized abdominal tenderness (principal); R11.2 Nausea with vomiting, unspecified; R19.7 Diarrhea, unspecified; J44.9 Chronic obstructive pulmonary disease, unspecified; E78.5 Hyperlipidemia, unspecified; E11.9 Type 2 diabetes mellitus without complications; I20.0 Unstable angina; Z86.73 Personal history of transient ischemic attack (TIA), and cerebral infarction without residual deficits; Z79.84 Long term (current) use of oral hypoglycemic drugs; Z79.01 Long term (current) use of anticoagulants; I10 Essential (primary) hypertension; Z87.891 Personal history of nicotine dependence
CPT/HCPCS: 74177; 80053; 81001; 83690; 83735; 85025; 96365; 96375; 99284; J0131; J1642; J2405; J3475; J7120; Q9967

== ENCOUNTER 2024-05-18 20:17 | Emergency (ER) | payer MEDICARE, MEDICAID, SELFPAY ==
[2024-05-18 20:18] VITALS: BP 173/101; PULSE 77; RESP 22; TEMP 36.6; O2SAT 99; BMI 35.2
--- NOTE | 2024-05-18 20:18 | [facility].EDCP ---
Discharge Plan Disposition Chief Complaint: Chest Pain Prescriptions Prescriptions: No Action omeprazole 40 mg capsule,delayed release(DR/EC) 40 mg PO DAILY metformin 1,000 mg tablet 1,000 mg PO BID Qty: 180 3RF trazodone 100 mg tablet 100 mg PO DAILY Qty: 90 3RF losartan 50 mg tablet 50 mg PO DAILY Qty: 90 3RF alprazolam 1 mg tablet 1 mg PO DAILY PRN (Reason: Anxiety) Qty: 30 2RF Rx Instructions: this is a dose adjustment use very sparingly atorvastatin 40 mg tablet 40 mg PO HS Qty: 90 3RF levothyroxine 100 mcg tablet 100 mcg PO DAILY Qty: 90 3RF conjugated estrogens 0.3 mg tablet 0.3 mg PO DAILY Qty: 30 1RF Rx Instructions: cyclically quetiapine 50 mg tablet 50 mg PO HS Qty: 30 1RF duloxetine 60 mg capsule,delayed release(DR/EC) 60 mg PO BID Qty: 30 1RF potassium chloride 10 mEq tablet extended release 10 meq PO DAILY nitroglycerin 0.4 mg tablet, sublingual 0.4 mg sublingual Q5MINP PRN (Reason: chest pain) Rx Instructions: do not exceed 3 doses per episode albuterol sulfate 90 mcg/actuation HFA aerosol inhaler 2 inh IH Q4HP PRN (Reason: Shortness Of Breath Or Wheezing) gabapentin 600 mg tablet 600 mg PO BID Qty: 60 2RF ropinirole 0.25 mg tablet 0.25 mg PO HS Qty: 30 2RF Rx Instructions: administer 1-3 hours before bedtime gabapentin 600 mg tablet 600 mg PO BID Qty: 60 2RF ropinirole 0.25 mg tablet 0.25 mg PO HS Qty: 30 2RF Rx Instructions: administer 1-3 hours before bedtime isosorbide mononitrate 30 MG tablet extended release 24 hr 30 mg PO DAILY albuterol sulfate 2.5 mg /3 mL (0.083 %) solution for nebulization 2.5 mg inhalation Q6H promethazine 25 mg tablet 25 mg PO TID PRN (Reason: Nausea And Vomiting) montelukast 10 mg tablet 10 mg PO HS Rx Instructions: take 1 tablet by mouth at bedtime for Allergy symptoms ticagrelor 90 mg Tablet 90 mg PO BID rivaroxaban 20 mg Tablet 20 mg PO HS metoprolol succinate 25 mg tablet extended release 24 hr 25 mg PO DAILY Patient Comments: TAKE ONE TABLET BY MOUTH DAILY Discharge ED Provider: Zhen Reyes [facility] General Chief Complaint: Chest Pain Stated Complaint: Chest pain Time Seen by Provider: 05/18/24 20:18 Related Data Home Medications Medication Instructions Recorded Confirmed isosorbide mononitrate 30 mg 30 mg PO DAILY 10/24/21 03/24/24 tablet,extended release 24 hr albuterol sulfate 2.5 mg/3 mL 2.5 mg inhalation Q6H 04/01/23 03/24/24 (0.083 %) solution for nebulization omeprazole 40 mg capsule,delayed 40 mg PO DAILY 04/08/23 03/24/24 release potassium chloride 10 mEq 10 meq PO DAILY 06/09/23 03/24/24 tablet,extended release albuterol sulfate 90 mcg/actuation 2 inh inhalation Q4HP PRN 07/13/23 03/24/24 aerosol inhaler Shortness Of Breath Or Wheezing nitroglycerin 0.4 mg sublingual 0.4 mg sublingual Q5MINP PRN chest 07/13/23 03/24/24 tablet pain promethazine 25 mg tablet 25 mg PO TID PRN Nausea And 03/16/24 03/24/24 Vomiting montelukast 10 mg tablet 10 mg PO HS 03/17/24 03/24/24 rivaroxaban 20 mg tablet 20 mg PO HS 03/17/24 03/24/24 ticagrelor 90 mg tablet 90 mg PO BID 03/17/24 03/24/24 metoprolol succinate 25 mg 25 mg PO DAILY 03/18/24 03/24/24 tablet,extended release 24 hr Previous Rx's Medication Instructions Recorded trazodone 100 mg tablet 100 mg PO DAILY #90 tabs 08/22/23 losartan 50 mg tablet 50 mg PO DAILY #90 tabs 11/06/23 gabapentin 600 mg tablet 600 mg PO BID #60 tabs 12/24/23 metformin 1,000 mg tablet 1,000 mg PO BID #180 tabs 01/09/24 ropinirole 0.25 mg tablet 0.25 mg PO HS Restless Leg(S) #30 02/18/24 tabs gabapentin 600 mg tablet 600 mg PO BID #60 tabs 03/22/24 ropinirole 0.25 mg tablet 0.25 mg PO HS #30 tabs 03/22/24 alprazolam 1 mg tablet 1 mg PO DAILY PRN Anxiety #30 tabs 04/08/24 atorvastatin 40 mg tablet 40 mg PO HS #90 tabs 04/08/24 levothyroxine 100 mcg tablet 100 mcg PO DAILY #90 tabs 04/08/24 conjugated estrogens 0.3 mg tablet 0.3 mg PO DAILY #30 tabs 04/15/24 duloxetine 60 mg capsule,delayed 60 mg PO BID #30 caps 05/17/24 release quetiapine 50 mg tablet 50 mg PO HS #30 tabs 05/17/24 Allergies Allergy/AdvReac Type Severity Reaction Status Date / Time codeine [CODEINE] Allergy Intermediate N/V Verified 03/24/24 13:24 ketorolac [KETOROLAC] Allergy Intermediate Hives Verified 03/24/24 13:24 meperidine [MEPERIDINE] Allergy Intermediate Hives Verified 03/24/24 13:24 tramadol [TRAMADOL] Allergy Intermediate Hives Verified 03/24/24 13:24 verapamil Allergy Mild Unknown Verified 03/24/24 13:24 allergy reaction ciprofloxacin AdvReac Severe Interacts Verified 03/24/24 13:24 with cymbalta [facility] Disclaimer: The information contained in this section may have been updated after the patient was seen, as this information can be updated by other users. Medical History COPD (chronic obstructive pulmonary disease) HLD (hyperlipidemia) Diabetes Anxiety and depression TIA (transient ischemic attack) History of stroke History of multiple cerebrovascular accidents (CVAs) History of class III angina pectoris Unstable angina Typical angina Dyspnea History of pancreatitis History of CVA (cerebrovascular accident) Surgical History History of biliary duct stent placement History of hysterectomy History of cholecystectomy History of coronary artery stent placement Family History Other Family history of cancer Family history of diabetes mellitus Social History Smoking Status: Never smoker second hand exposure: No alcohol intake: never counseling provided: none substance use type: marijuana and crack/cocaine current occupational status: retired and other Travel in the last 8 weeks: None household members: spouse housing: house number of children: 2 current occupational exposures/hazards: No caffeine: Yes ROS Obtained: Yes Systems reviewed as appropriate & no additional complaints except as documented Physical Exam General General appearance: alert and in no apparent distress Head Head exam: atraumatic and normal inspection Eye Eye exam: Present normal appearance, PERRL and EOMI ENT ENT exam: Present normal exam, normal oropharynx and mucous membranes moist Neck Neck exam: Present normal inspection, full ROM and trachea midline; Absent lymphadenopathy Chest Chest inspection: Present normal inspection and symmetric chest wall rise Respiratory Respiratory exam: Present normal lung sounds bilaterally; Absent accessory muscle use Cardiovascular Cardiovascular exam: Present regular rate, normal rhythm, normal heart sounds, +S1 and +S2 Abdominal Exam Abdominal exam: Present soft and normal bowel sounds; Absent tenderness, guarding or rebound Extremities Exam Extremities exam: Present normal inspection and full ROM Neurological Exam Neurological exam: Present alert, oriented X3 and CN II-XII intact Psychiatric Psychiatric exam: Present normal affect and normal mood Skin Skin exam: Present warm, dry and normal color Lymphatic Lymphatic Findings: no adenopathy
--- NOTE | 2024-05-18 20:19 | XR_ITS ---
PROCEDURE INFORMATION: Exam: XR Chest Exam date and time: 05/18/2024 8:17 PM Age: 63 years old Clinical indication: Pain; Chest pressure; Additional info: Chest pain TECHNIQUE: Imaging protocol: Radiologic exam of the chest. Views: 1 view. Total images: 1 COMPARISON: CR XR CHEST PORTABLE 11/04/2023 6:34 PM FINDINGS: Tubes, catheters and devices: Status post right subclavian CT power infusion port with catheter tip in the lower SVC. EKG leads are present. Lungs: Stable chronic mild accentuation of bronchovascular markings. No acute infiltrate or airspace consolidation. No pulmonary vascular congestion. Pleural spaces: Unremarkable. No pleural effusion. No pneumothorax. Heart/Mediastinum: Stable mild cardiomegaly. No mediastinal widening. Vasculature: Atherosclerotic and tortuous thoracic aorta. Bones/joints: Status post anterior cervical fusion. Osteopenia. Multiple remote right rib fractures. Partially visualized mild degenerative changes thoracic spine and right shoulder. IMPRESSION: 1. No radiographically acute cardiopulmonary process. 2. Stable chronic findings.
--- NOTE | 2024-05-18 20:27 | ECG_ITS ---
APPROVED REPORT Exam: Resting ECG HR:73 bpm ECG Measurements Heart Rate 73 AXES NH 172 P 81 QRSd 89 QRS 76 QT 421 T 86 QTc 446 Conclusion SINUS RHYTHM Electronically signed by : KATY BROTHERS, 05/19/2024 05:34:20
[2024-05-18] MEDS: LACTATED RINGERS 1000ML 1,000 ML 999 ML IV (20:30)
[2024-05-18] MEDS: ACETAMINOPHEN 1,000MG/100ML VIAL 1000 MG IV (20:30)
[2024-05-18 20:41] LABS: Microscopic, Urine URINE MICROSCOPIC (MICROSCOPIC)
[2024-05-18 20:43] LABS: Appearance,Urine CLEAR (Clear); Bilirubin,Urine Negative (Negative); Blood, Urine Negative (Negative); Color,Urine YELLOW (Yellow); Glucose,Urine (UA) Negative (Negative); Ketones,Urine Negative (Negative); Leukocyte Esterase,Urine Negative (Negative); Nitrate,Urine Negative (Negative); Protein,Urine Negative (Negative); Specific Gravity, Urine <= 1.005 (1.005-1.030)
--- NOTE | 2024-05-18 20:46 | PC.NURSE ---
Labs/EKG refaxed to [facility] at [facility]
[2024-05-18 20:51] LABS: Bacteria,Urine 1+ /lpf
--- NOTE | 2024-05-18 20:54 | HMH.EDGENADL ---
Discharge Plan Disposition Patient Disposition: Home, Self-Care Prescriptions Prescriptions: New furosemide 20 mg tablet 20 mg PO DAILY Qty: 30 1RF No Action omeprazole 40 mg capsule,delayed release(DR/EC) 40 mg PO DAILY metformin 1,000 mg tablet 1,000 mg PO BID Qty: 180 3RF trazodone 100 mg tablet 100 mg PO DAILY Qty: 90 3RF losartan 50 mg tablet 50 mg PO DAILY Qty: 90 3RF alprazolam 1 mg tablet 1 mg PO DAILY PRN (Reason: Anxiety) Qty: 30 2RF Rx Instructions: this is a dose adjustment use very sparingly atorvastatin 40 mg tablet 40 mg PO HS Qty: 90 3RF levothyroxine 100 mcg tablet 100 mcg PO DAILY Qty: 90 3RF conjugated estrogens 0.3 mg tablet 0.3 mg PO DAILY Qty: 30 1RF Rx Instructions: cyclically quetiapine 50 mg tablet 50 mg PO HS Qty: 30 1RF duloxetine 60 mg capsule,delayed release(DR/EC) 60 mg PO BID Qty: 30 1RF potassium chloride 10 mEq tablet extended release 10 meq PO DAILY nitroglycerin 0.4 mg tablet, sublingual 0.4 mg sublingual Q5MINP PRN (Reason: chest pain) Rx Instructions: do not exceed 3 doses per episode albuterol sulfate 90 mcg/actuation HFA aerosol inhaler 2 inh IH Q4HP PRN (Reason: Shortness Of Breath Or Wheezing) gabapentin 600 mg tablet 600 mg PO BID Qty: 60 2RF ropinirole 0.25 mg tablet 0.25 mg PO HS Qty: 30 2RF Rx Instructions: administer 1-3 hours before bedtime gabapentin 600 mg tablet 600 mg PO BID Qty: 60 2RF ropinirole 0.25 mg tablet 0.25 mg PO HS Qty: 30 2RF Rx Instructions: administer 1-3 hours before bedtime isosorbide mononitrate 30 MG tablet extended release 24 hr 30 mg PO DAILY albuterol sulfate 2.5 mg /3 mL (0.083 %) solution for nebulization 2.5 mg inhalation Q6H promethazine 25 mg tablet 25 mg PO TID PRN (Reason: Nausea And Vomiting) montelukast 10 mg tablet 10 mg PO HS Rx Instructions: take 1 tablet by mouth at bedtime for Allergy symptoms ticagrelor 90 mg Tablet 90 mg PO BID rivaroxaban 20 mg Tablet 20 mg PO HS metoprolol succinate 25 mg tablet extended release 24 hr 25 mg PO DAILY Patient Comments: TAKE ONE TABLET BY MOUTH DAILY Referrals Follow up/Referrals: Rohit Sierra MD [Staff Physician] - See instructions Activity Restrictions/Add. Instructions Additional Instructions/Restrictions: Call your family doctor to establish care for this visit to the emergency department and schedule follow-up within 48 hours to ensure improvement. If you have any worsening of your condition or any other concerning signs or symptoms, return to the emergency department or your primary care doctor for further evaluation. Take daily lasix [address] Sierra's office for follow up regarding fluid overload and heart failure management. Continue taking potassium supplements and begin taking 800 mg magnesium supplements daily. Clinical Impressions Clinical Impression: Chest pain, CHF (congestive heart failure), Orthopnea, Fluid overload Discharge ED Provider: José Luis Hadley General Adult HPI <Zhen Reyes MD - Last Filed: 05/18/24 22:41> General Chief complaint: Chest Pain Stated complaint: Chest pain Time Seen by Provider: 05/18/24 20:18 Mode of Arrival: Wheelchair Source of Information: Patient Limitations: weak and dizzy Description of Symptoms (Recalled from ER Triage Doc. by RN): Pt. presented to the ED with c/o shotness of breath x 3 days and A-Fib x 24 hours. C/o chest feels heavy, c/o neausea, dizziness, and back pain History of Present Illness HPI narrative: Patient is a 63-year-old female presenting today with chest pain. She was here recently for abdominal pain and had extensive workup which was negative also recently had endoscopy and colonoscopy without any significant acute abnormalities. She states that that pain resolved and she is here today for different symptoms which she describes as chest pain located under each breast bilaterally also with some back pain associate with this. Nonexertional she does have some diaphoresis and shortness of breath associated with this. She states he has a history of coronary artery disease and has had 5 stents in the past. She also has history of atrial fibrillation and is chronically anticoagulated on Xarelto she states. Related Data Home Medications Medication Instructions Recorded Confirmed isosorbide mononitrate 30 mg 30 mg PO DAILY 10/24/21 03/24/24 tablet,extended release 24 hr albuterol sulfate 2.5 mg/3 mL 2.5 mg inhalation Q6H 04/01/23 03/24/24 (0.083 %) solution for nebulization omeprazole 40 mg capsule,delayed 40 mg PO DAILY 04/08/23 03/24/24 release potassium chloride 10 mEq 10 meq PO DAILY 06/09/23 03/24/24 tablet,extended release albuterol sulfate 90 mcg/actuation 2 inh inhalation Q4HP PRN 07/13/23 03/24/24 aerosol inhaler Shortness Of Breath Or Wheezing nitroglycerin 0.4 mg sublingual 0.4 mg sublingual Q5MINP PRN chest 07/13/23 03/24/24 tablet pain promethazine 25 mg tablet 25 mg PO TID PRN Nausea And 03/16/24 03/24/24 Vomiting montelukast 10 mg tablet 10 mg PO HS 03/17/24 03/24/24 rivaroxaban 20 mg tablet 20 mg PO HS 03/17/24 03/24/24 ticagrelor 90 mg tablet 90 mg PO BID 03/17/24 03/24/24 metoprolol succinate 25 mg 25 mg PO DAILY 03/18/24 03/24/24 tablet,extended release 24 hr Previous Rx's Medication Instructions Recorded trazodone 100 mg tablet 100 mg PO DAILY #90 tabs 08/22/23 losartan 50 mg tablet 50 mg PO DAILY #90 tabs 11/06/23 gabapentin 600 mg tablet 600 mg PO BID #60 tabs 12/24/23 metformin 1,000 mg tablet 1,000 mg PO BID #180 tabs 01/09/24 ropinirole 0.25 mg tablet 0.25 mg PO HS Restless Leg(S) #30 02/18/24 tabs gabapentin 600 mg tablet 600 mg PO BID #60 tabs 03/22/24 ropinirole 0.25 mg tablet 0.25 mg PO HS #30 tabs 03/22/24 alprazolam 1 mg tablet 1 mg PO DAILY PRN Anxiety #30 tabs 04/08/24 atorvastatin 40 mg tablet 40 mg PO HS #90 tabs 04/08/24 levothyroxine 100 mcg tablet 100 mcg PO DAILY #90 tabs 04/08/24 conjugated estrogens 0.3 mg tablet 0.3 mg PO DAILY #30 tabs 04/15/24 duloxetine 60 mg capsule,delayed 60 mg PO BID #30 caps 05/17/24 release quetiapine 50 mg tablet 50 mg PO HS #30 tabs 05/17/24 furosemide 20 mg tablet 20 mg PO DAILY #30 tabs 05/19/24 Allergies Allergy/AdvReac Type Severity Reaction Status Date / Time codeine [CODEINE] Allergy Intermediate N/V Verified 03/24/24 13:24 ketorolac [KETOROLAC] Allergy Intermediate Hives Verified 03/24/24 13:24 meperidine [MEPERIDINE] Allergy Intermediate Hives Verified 03/24/24 13:24 tramadol [TRAMADOL] Allergy Intermediate Hives Verified 03/24/24 13:24 verapamil Allergy Mild Unknown Verified 03/24/24 13:24 allergy reaction ciprofloxacin AdvReac Severe Interacts Verified 03/24/24 13:24 with cymbalta [facility] <Zhen Reyes MD - Last Filed: 05/18/24 22:41> [facility] Disclaimer: The information contained in this section may have been updated after the patient was seen, as this information can be updated by other users. Medical History COPD (chronic obstructive pulmonary disease) HLD (hyperlipidemia) Diabetes Anxiety and depression TIA (transient ischemic attack) History of stroke History of multiple cerebrovascular accidents (CVAs) History of class III angina pectoris Unstable angina Typical angina Dyspnea History of pancreatitis History of CVA (cerebrovascular accident) Surgical History History of biliary duct stent placement History of hysterectomy History of cholecystectomy History of coronary artery stent placement Family History Other Family history of cancer Family history of diabetes mellitus Social History Smoking Status: Never smoker second hand exposure: No alcohol intake: never counseling provided: none substance use type: marijuana and crack/cocaine current occupational status: retired and other Travel in the last 8 weeks: None household members: spouse housing: house number of children: 2 current occupational exposures/hazards: No caffeine: Yes <Zhen Reyes MD - Last Filed: 05/18/24 22:41> ROS Obtained: Yes All systems reviewed & no additional complaints except as documented Physical Exam <Zhen Reyes MD - Last Filed: 05/18/24 22:41> General General appearance: alert and in no apparent distress Respiratory Respiratory exam: Present normal lung sounds bilaterally; Absent respiratory distress Cardiovascular Cardiovascular exam: Present regular rate and normal rhythm Abdominal Exam Abdominal exam: Present soft; Absent distention or tenderness Neurological Exam Neurological exam: Present alert and oriented X3 Medical Decision Making <Zhen Reyes MD - Last Filed: 05/18/24 22:41> Delroy Inquiry Pt receiving controlled substance: No Vital Signs: 05/18/24 20:18 05/19/24 00:52 Temperature 98 F 98 F Temperature Source Axillary Oral Pulse Rate 76 Pulse Rate [Right Radial] 77 Respiratory Rate 22 15 Blood Pressure 153/93 H Blood Pressure [Right Arm] 173/101 H Blood Pressure Mean [Right Arm] 125 Blood Pressure Source Automatic Cuff Blood Pressure Source [Right Arm] Automatic Cuff Blood Pressure Position Sitting Blood Pressure Position [Right Arm] Supine 02 Sat by Pulse Oximetry 99 Oxygen Delivery Method Nasal Cannula Nasal Cannula Oxygen Flow Rate (LPM) 3 2 Lab Data Lab results reviewed: Yes I reviewed the patient's lab results. Lab Results 05/18/24 20:24: Urine Color Yellow, Urine Appearance Clear, Urine pH 7.0, Ur Specific [place] <= 1.005, Urine Protein Negative, Urine Glucose (UA) Negative, Urine Ketones Negative, Urine Blood Negative, Urine Nitrate Negative, Urine Bilirubin Negative, Urine Urobilinogen 1.0, Ur Leukocyte Esterase Negative, Urine RBC None, Urine WBC None, Ur Squamous Epith Cells 3-5, Urine Bacteria 1+ 05/18/24 20:40: WBC 10.2, RBC 4.03 L, Hgb 8.6 L, Hct 29.4 L, MCV 72.8 L, MCH 21.4 L, MCHC 29.4 L, RDW 19.1 H, Plt Count 426 H, MPV 8.2, Neut % (Auto) 64.0, Lymph % (Auto) 27.2, [place] % (Auto) 5.4, Eos % (Auto) 2.7, Baso % (Auto) 0.7, Neut # (Auto) 6.5, Lymph # (Auto) 2.8, [place] # (Auto) 0.6, Eos # (Auto) 0.3, Baso # (Auto) 0.1, PT 11.2, INR 1.04, D-Dimer 0.41, Sodium 135 L, Potassium 4.0, Chloride 102, Carbon Dioxide 24, Anion Gap 13.0, BUN 10, Creatinine 0.80, Estimated Creat Clear 90, Estimated GFR 72, Est GFR ( Amer) 88, Glucose 106 H, Lactate 1.5, Calcium 8.6, Magnesium 1.5 L, Total Bilirubin 0.8, AST 23, ALT 19, Alkaline Phosphatase 136 H, Troponin I < 0.01, NT-Pro-B Natriuret Pep 1430 H, Total Protein 7.5, Albumin 3.9, Globulin 3.6 H, Albumin/Globulin Ratio 1.1, Lipase 94 05/18/24 23:35: Troponin I < 0.01 05/18/24 20:40 05/18/24 20:40 Orders (Tests/Meds): ED MEDICATIONS Generic Name Dose Route Start Last Admin Trade Name Freq PRN Reason Stop Dose Admin Sodium Chloride 8 ml 05/18/24 23:41 Sodium Chloride 0.9% 10ml Vial IV 06/17/24 23:40 NEEDED PRN dilute pepcid Discontinued Medications Generic Name Dose Route Start Last Admin Trade Name Freq PRN Reason Stop Dose Admin Acetaminophen 1,000 mg 05/18/24 20:18 05/18/24 20:30 Acetaminophen 1,000mg/100ml Vial IV 05/18/24 20:19 1,000 mg ONCE ONE Administration Belladonna Alkaloids 60 ml 05/18/24 23:40 05/18/24 23:49 Belladonna Alkaloids 60 Ml Ml PO 05/18/24 23:41 60 ml ONCE ONE Administration Famotidine 20 mg 05/18/24 23:41 05/18/24 23:49 Famotidine 20mg/2ml Vial IV 05/18/24 23:42 20 mg ONCE ONE Administration Furosemide 40 mg 05/18/24 23:44 05/18/24 23:49 Furosemide 40mg/4ml Vial IV 05/18/24 23:45 40 mg ONCE ONE Administration Heparin Sodium (Porcine) 300 unit 05/19/24 00:32 Heparin Lock Flush 500 Units/5ml Syr IV 05/19/24 00:33 ONCE ONE Lactated Ringer's 1,000 mls @ 999 mls/hr 05/18/24 20:18 05/18/24 20:30 Lactated Ringer's 1000 Ml Bag IV 05/18/24 21:18 999 mls/hr .Q1H1M ONE Administration Morphine Sulfate 4 mg 05/18/24 20:52 05/18/24 21:15 Morphine 4mg/Ml Syringe IV 05/18/24 20:53 4 mg ONCE ONE Administration Ondansetron HCl 4 mg 05/18/24 20:52 05/18/24 21:15 Ondansetron 4mg/2ml Vial IV 05/18/24 20:53 4 mg ONCE ONE Administration Oxycodone HCl 5 mg 05/19/24 00:12 05/19/24 00:26 Oxycodone 5mg Immediate Release Tablet PO 05/19/24 00:13 5 mg ONCE ONE Administration ORDERS Category Date Time Status Chest XR -- portable [XR chest portable] Stat Exams 05/18/24 20:19 Completed BNP [NT Pro Brain Natriuretic Pep.] Stat Lab 05/18/24 20:40 Completed CBC w/Auto Diff [Complete Blood Count Auto Diff] Stat Lab 05/18/24 20:40 Completed CMP [Comprehensive Metabolic Panel] Stat Lab 05/18/24 20:40 Completed D-Dimer Stat Lab 05/18/24 20:40 Completed INR [Prothrombin Time INR] Stat Lab 05/18/24 20:40 Completed Lactic Acid Stat Lab 05/18/24 20:40 Completed Lipase Stat Lab 05/18/24 20:40 Completed Magnesium Stat Lab 05/18/24 20:40 Completed Trop I [Troponin I] Stat Lab 05/18/24 20:40 Completed Troponin I Q3H Lab 05/18/24 23:35 Completed Troponin I Q3H Lab 05/19/24 02:30 Ordered UA [Urinalysis and Microscopic] Stat Lab 05/18/24 20:24 Completed ECG Data Tracing #1: I reviewed this ECG and interpreted as documented below: Ventricular rate of 73 normal sinus rhythm no acute ischemic changes noted no conduction abnormalities normal axis HEART Score History (anamnesis): Slightly suspicious ECG: Normal Age: 45-65 years Risk factors: Atherosclerosis history Troponin: </= normal limit HEART Score: 3 Medical Decision Narrative: 63-year-old female presenting today with chest pain and shortness of breath. Given her age I cannot use pulmonary embolism rule out criteria will obtain a D-dimer and use a cutoff of 1.0 years criteria to get a CT PE. She was here recently for abdominal pain and has had extensive workup for this recently without any significant acute abnormalities. Today symptoms seem to be different. States her chest pain is been ongoing about 6 hours therefore get serial troponins. EKG is nonischemic. She has been given Tylenol also give her morphine and Zofran and will reassess. ED observation order has been placed at 8:55 PM anticipate serial troponins and likely discharge. Reassessment 1040 patient remains very stable comfortable in the emergency department chest pain-free at this point. Chest x-ray performed to person interpreted shows no acute cardiopulmonary emergency. Troponin undetectably low awaiting second troponin. D-dimer but a threshold for getting a CT PE. She does have anemia which is chronic. BNP is nonspecifically elevated. Awaiting second troponin for final disposition care transitioned to Dr. José Luis Hadley at 11 PM. <José Luis Hadley MD - Last Filed: 05/19/24 01:02> Vital Signs: 05/18/24 20:18 05/19/24 00:52 Temperature 98 F 98 F Temperature Source Axillary Oral Pulse Rate 76 Pulse Rate [Right Radial] 77 Respiratory Rate 22 15 Blood Pressure 153/93 H Blood Pressure [Right Arm] 173/101 H Blood Pressure Mean [Right Arm] 125 Blood Pressure Source Automatic Cuff Blood Pressure Source [Right Arm] Automatic Cuff Blood Pressure Position Sitting Blood Pressure Position [Right Arm] Supine 02 Sat by Pulse Oximetry 99 Oxygen Delivery Method Nasal Cannula Nasal Cannula Oxygen Flow Rate (LPM) 3 2 Lab Data Lab Results 05/18/24 20:24: Urine Color Yellow, Urine Appearance Clear, Urine pH 7.0, Ur Specific [place] <= 1.005, Urine Protein Negative, Urine Glucose (UA) Negative, Urine Ketones Negative, Urine Blood Negative, Urine Nitrate Negative, Urine Bilirubin Negative, Urine Urobilinogen 1.0, Ur Leukocyte Esterase Negative, Urine RBC None, Urine WBC None, Ur Squamous Epith Cells 3-5, Urine Bacteria 1+ 05/18/24 20:40: WBC 10.2, RBC 4.03 L, Hgb 8.6 L, Hct 29.4 L, MCV 72.8 L, MCH 21.4 L, MCHC 29.4 L, RDW 19.1 H, Plt Count 426 H, MPV 8.2, Neut % (Auto) 64.0, Lymph % (Auto) 27.2, Norman % (Auto) 5.4, Eos % (Auto) 2.7, Baso % (Auto) 0.7, Neut # (Auto) 6.5, Lymph # (Auto) 2.8, [place] # (Auto) 0.6, Eos # (Auto) 0.3, Baso # (Auto) 0.1, PT 11.2, INR 1.04, D-Dimer 0.41, Sodium 135 L, Potassium 4.0, Chloride 102, Carbon Dioxide 24, Anion Gap 13.0, BUN 10, Creatinine 0.80, Estimated Creat Clear 90, Estimated GFR 72, Est GFR ( Amer) 88, Glucose 106 H, Lactate 1.5, Calcium 8.6, Magnesium 1.5 L, Total Bilirubin 0.8, AST 23, ALT 19, Alkaline Phosphatase 136 H, Troponin I < 0.01, NT-Pro-B Natriuret Pep 1430 H, Total Protein 7.5, Albumin 3.9, Globulin 3.6 H, Albumin/Globulin Ratio 1.1, Lipase 94 05/18/24 23:35: Troponin I < 0.01 Orders (Tests/Meds): ED MEDICATIONS Generic Name Dose Route Start Last Admin Trade Name Freq PRN Reason Stop Dose Admin Sodium Chloride 8 ml 05/18/24 23:41 Sodium Chloride 0.9% 10ml Vial IV 06/17/24 23:40 NEEDED PRN dilute pepcid Discontinued Medications Generic Name Dose Route Start Last Admin Trade Name Freq PRN Reason Stop Dose Admin Acetaminophen 1,000 mg 05/18/24 20:18 05/18/24 20:30 Acetaminophen 1,000mg/100ml Vial IV 05/18/24 20:19 1,000 mg ONCE ONE Administration Belladonna Alkaloids 60 ml 05/18/24 23:40 05/18/24 23:49 Belladonna Alkaloids 60 Ml Ml PO 05/18/24 23:41 60 ml ONCE ONE Administration Famotidine 20 mg 05/18/24 23:41 05/18/24 23:49 Famotidine 20mg/2ml Vial IV 05/18/24 23:42 20 mg ONCE ONE Administration Furosemide 40 mg 05/18/24 23:44 05/18/24 23:49 Furosemide 40mg/4ml Vial IV 05/18/24 23:45 40 mg ONCE ONE Administration Heparin Sodium (Porcine) 300 unit 05/19/24 00:32 Heparin Lock Flush 500 Units/5ml Syr IV 05/19/24 00:33 ONCE ONE Lactated Ringer's 1,000 mls @ 999 mls/hr 05/18/24 20:18 05/18/24 20:30 Lactated Ringer's 1000 Ml Bag IV 05/18/24 21:18 999 mls/hr .Q1H1M ONE Administration Morphine Sulfate 4 mg 05/18/24 20:52 05/18/24 21:15 Morphine 4mg/Ml Syringe IV 05/18/24 20:53 4 mg ONCE ONE Administration Ondansetron HCl 4 mg 05/18/24 20:52 05/18/24 21:15 Ondansetron 4mg/2ml Vial IV 05/18/24 20:53 4 mg ONCE ONE Administration Oxycodone HCl 5 mg 05/19/24 00:12 05/19/24 00:26 Oxycodone 5mg Immediate Release Tablet PO 05/19/24 00:13 5 mg ONCE ONE Administration ORDERS Category Date Time Status Chest XR -- portable [XR chest portable] Stat Exams 05/18/24 20:19 Completed BNP [NT Pro Brain Natriuretic Pep.] Stat Lab 05/18/24 20:40 Completed CBC w/Auto Diff [Complete Blood Count Auto Diff] Stat Lab 05/18/24 20:40 Completed CMP [Comprehensive Metabolic Panel] Stat Lab 05/18/24 20:40 Completed D-Dimer Stat Lab 05/18/24 20:40 Completed INR [Prothrombin Time INR] Stat Lab 05/18/24 20:40 Completed Lactic Acid Stat Lab 05/18/24 20:40 Completed Lipase Stat Lab 05/18/24 20:40 Completed Magnesium Stat Lab 05/18/24 20:40 Completed Trop I [Troponin I] Stat Lab 05/18/24 20:40 Completed Troponin I Q3H Lab 05/18/24 23:35 Completed Troponin I Q3H Lab 05/19/24 02:30 Ordered UA [Urinalysis and Microscopic] Stat Lab 05/18/24 20:24 Completed HEART Score HEART Score: 3 Medical Decision Narrative: 63-year-old female presenting today with chest pain and shortness of breath. Given her age I cannot use pulmonary embolism rule out criteria will obtain a D-dimer and use a cutoff of 1.0 years criteria to get a CT PE. She was here recently for abdominal pain and has had extensive workup for this recently without any significant acute abnormalities. Today symptoms seem to be different. States her chest pain is been ongoing about 6 hours therefore get serial troponins. EKG is nonischemic. She has been given Tylenol also give her morphine and Zofran and will reassess. ED observation order has been placed at 8:55 PM anticipate serial troponins and likely discharge. Reassessment 1040 patient remains very stable comfortable in the emergency department chest pain-free at this point. Chest x-ray performed to person interpreted shows no acute cardiopulmonary emergency. Troponin undetectably low awaiting second troponin. D-dimer but a threshold for getting a CT PE. She does have anemia which is chronic. BNP is nonspecifically elevated. Awaiting second troponin for final disposition care transitioned to Dr. José Luis Hadley at 11 PM. Leonie: I assumed primary responsibility for this patient after signout from previous physician. My evaluation, patient on home oxygen, no acute distress, nontachycardic and very well-appearing. Sleeping and needing to be woken up for my evaluation. Woke up without issue. Arousable and GCS 15. Independent interpretation of workup demonstrates stable iron deficiency anemia. No leukocytosis. Coags negative. D-dimer normal at 0.4. Chemistry nonactionable with normal kidney function. Lactate negative, magnesium mildly low at 1.5. Initial troponin negative. BNP elevated at 1430, this appears to be the highest its ever been for patient and nearly doubled. Independent to rotation of chest x-ray with cardiomegaly which appears stable with cephalization of pulmonary vasculature. No effusions. Urinalysis negative. 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 Also placed on continuous pulse oximetry with saturation 99% on room air with good waveform. Breathing 16-18 times a minute. Patient was placed in observation beginning at 2054 PM by previous physician in order to rule out evolving NH with delta troponins given acuity of symptoms and determine need for admission versus home-going. The patient was provided morphine, Tylenol with previous physician, cardiac monitoring, continuous oximetry, GI cocktail, Pepcid, 40 mg IV Lasix with me while awaiting results. Independent interpretation of results demonstrated negative delta troponin. Despite history of A-fib, patient's EKG sinus rhythm 73 beats a minute with [place] interval 172, QRS 89, QTc 446. No ischemic change. [place] normal. On reevaluation, patient stating she has been acute pain from multiple dental abscesses, which she has dental follow-up soon, as well as mild, but significantly improved chest discomfort. Given 5 mg p.o. oxycodone. Patient also states that she would like to be admitted because she think she is on oxygen at home. João was contacted in order to help patient with a new oxygen tank. At this time, I feel patient is appropriate for discharge. Total observation time 3 and half hours. Because patient at baseline without signs or symptoms of clinical decompensation, deemed appropriate for discharge. Results were relayed to patient who voiced understanding and were agreeable to outpatient management and follow up. I discussed my clinical impression with patient and answered all questions. At this time, the evidence for any other entities in the differential is insufficient to warrant any further testing or ED observation. This was explained as well. Advisory was given that persistent or worsening symptoms require further evaluation. I confirmed the understanding of this discussion. Critical Care <Zhen Reyes MD - Last Filed: 05/18/24 22:41> Critical Care Time Critical Care Time: No
[2024-05-18 21:04] LABS: Basophils # 0.1 K/mm3 (0-0.2); Basophils % 0.7 % (0.1-2.0); Eosinophils # 0.3 K/mm3 (0.0-0.4); Eosinophils % 2.7 % (0.1-12.0); Hematocrit 29.4 % (37.0-47.0); Hemoglobin 8.6 g/dL (12.2-16.2); Lymphocytes # 2.8 K/mm3 (0.7-4.5); Lymphocytes % 27.2 % (10-50); Mean Corpuscular HGB Conc 29.4 g/dL (31.8-35.4); Mean Corpuscular Hemoglobin 21.4 pg (27.0-31.2); Mean Corpuscular Volume 72.8 fl (81-99); Mean Platelet Volume 8.2 fl (7.4-10.4); Monocytes # 0.6 K/mm3 (0.1-1.0); Monocytes % 5.4 % (1.7-9.3); Neutrophils # 6.5 K/mm3 (1.8-7.8); Platelet Count 426 K/mm3 (142-424); Red Blood Count 4.03 M/mm3 (4.20-5.40); Red Cell Distribution Width 19.1 % (11.5-17.5); White Blood Count 10.2 K/mm3 (4.8-10.8)
[2024-05-18] MEDS: ONDANSETRON 4MG/2ML VIAL 4 MG IV (21:15)
[2024-05-18] MEDS: MORPHINE 4MG/ML SYRINGE 4 MG IV (21:15)
[2024-05-18 21:16] LABS: Chloride 102 mmol/L (98-107); Sodium 135 mmol/L (136-145)
[2024-05-18 21:18] LABS: Blood Urea Nitrogen 10 mg/dl (7-17); Creatinine Clearance Estimated 90 mL/min (50-200); Estimated Glomerular Filt Rate 72 ml/min (>60); GFR (African American) 88 ML/MIN (>60); Lactic Acid 1.5 mmol/L (0.7-2.1)
[2024-05-18 21:19] LABS: Alanine Aminotransferase 19 U/L (12-78); Albumin Level 3.9 g/dl (3.5-5.0); Albumin/Globulin Ratio 1.1 (1.1-1.8); Alkaline Phosphatase 136 U/L (38-126); Aspartate Amino Transferase 23 U/L (14-36); Bilirubin,Total 0.8 mg/dl (0.2-1.3); Calcium 8.6 mg/dl (8.4-10.2); Carbon Dioxide 24 mmol/L (22.0-30.0); Globulin 3.6 g/dL (1.3-3.2); Glucose 106 mg/dl (74-100); Lipase 94 U/L (23-300); Magnesium 1.5 mg/dl (1.6-2.3); Total Protein,Serum 7.5 g/dl (6.3-8.2)
[2024-05-18 21:20] LABS: INR 1.04 (0.9-1.1); Prothrombin Time 11.2 seconds (10.1-12.5)
[2024-05-18 21:28] LABS: NT Pro Brain Natriuretic Pep. 1430 pg/mL (0-125)
[2024-05-18 21:34] LABS: D-Dimer 0.41 ug/mL (0.0-0.5)
[2024-05-18 21:38] LABS: Troponin I < 0.01 ng/ml (0.00-0.034)
[2024-05-18] MEDS: FUROSEMIDE 40MG/4ML VIAL 40 MG IV (23:49)
[2024-05-18] MEDS: BELLADONNA ALKALOIDS 60 ML ML PO (23:49)
[2024-05-18] MEDS: FAMOTIDINE 20MG/2ML VIAL 20 MG IV (23:49)
[2024-05-19 00:14] LABS: Troponin I < 0.01 ng/ml (0.00-0.034)
[2024-05-19] MEDS: OXYCODONE 5MG IMMEDIATE RELEASE TABLET 5 MG PO (00:26)
[2024-05-19 00:52] VITALS: BP 153/93; PULSE 76; RESP 15; TEMP 36.6; O2SAT 96
== END 2024-05-19 01:00 | disposition home or self-care (01) ==
PROVIDERS: Physician Assistant; Student in an Organized Health Care Education/Training Program; Emergency Provider Emergency Medicine; PCP Family Medicine
DX: R07.89 Other chest pain (principal); E87.70 Fluid overload, unspecified; R06.01 Orthopnea; I11.0 Hypertensive heart disease with heart failure; I50.9 Heart failure, unspecified; I48.0 Paroxysmal atrial fibrillation; E11.9 Type 2 diabetes mellitus without complications; E78.5 Hyperlipidemia, unspecified; I20.89 Other forms of angina pectoris; Z86.73 Personal history of transient ischemic attack (TIA), and cerebral infarction without residual deficits; Z95.5 Presence of coronary angioplasty implant and graft; Z79.01 Long term (current) use of anticoagulants; Z79.84 Long term (current) use of oral hypoglycemic drugs; Z87.891 Personal history of nicotine dependence
CPT/HCPCS: 71045; 80053; 81001; 83605; 83690; 83735; 83880; 84484; 85025; 85378; 85610; 93005; 96361; 96374; 96375; 99285; J0131; J1642; J1940; J2270; J2405; J7120

== ENCOUNTER 2024-06-18 13:45 | Outpatient (CLI) | payer MEDICARE, MEDICAID, SELFPAY ==
--- NOTE | 2024-06-18 13:46 | MM_ITS ---
PROCEDURE INFORMATION: Exam: MG Bilateral Screening 3D Mammography Exam date and time: 06/18/2024 1:31 PM Age: 63 years old Clinical indication: Screening examination; Additional info: Routine mammogram screening . Family history of breast carcinoma. TECHNIQUE: Imaging protocol: Bilateral Screening tomosynthesis and 2D mammography including computer-aided detection (CAD) when performed. COMPARISON: 1. MG MM DIG SCREENING MAMM BI W/CAD 05/10/2021 9:28 AM 2. MG SCBI MM Dig screening mamm BI w/CAD 03/05/2019 3:09 PM FINDINGS: MAMMOGRAPHY: Breast composition: There are scattered areas of fibroglandular density. Mass: No suspicious masses. Architectural distortion: No suspicious distortion. Calcifications: No suspicious calcifications. Asymmetric density: None. Skin thickening: None. Axillary adenopathy: None. IMPRESSION: 1. No mammographic evidence of malignancy. Annual screening is recommended unless otherwise clinically indicated. 2. Given the reported risk factors for this patient, a breast cancer risk assessment may prove useful for further evaluation. ASSESSMENT: BI-RADS Category 1: Negative
== END 2024-06-18 23:59 | disposition home or self-care (01) ==
LOC: RAD 13:46
PROVIDERS: PCP Family Medicine; Visit Provider Family Medicine
DX: Z12.31 Encounter for screening mammogram for malignant neoplasm of breast (principal)
CPT/HCPCS: 77063; 77067

== ENCOUNTER 2024-06-28 22:38 | Emergency (ER) | payer MEDICARE, MEDICAID, SELFPAY ==
--- NOTE | 2024-06-28 22:42 | ECG_ITS ---
APPROVED REPORT Exam: Resting ECG HR:115 bpm ECG Measurements Heart Rate 115 AXES QRSd 86 QRS 62 QT 338 T 70 QTc 406 Conclusion ATRIAL FIBRILLATION WITH RAPID VENTRICULAR RESPONSE NONSPECIFIC ST & T-WAVE ABNORMALITY ABNORMAL RHYTHM ECG Electronically signed by : JOSE KUHN, 06/28/2024 23:13:18
[2024-06-28 22:43] VITALS: BP 111/71; PULSE 121; RESP 26; TEMP 36.6; O2SAT 95; BMI 32.9
--- NOTE | 2024-06-28 22:45 | XR_ITS ---
PROCEDURE INFORMATION: Exam: XR Chest Exam date and time: 06/28/2024 11:23 PM Age: 63 years old Clinical indication: Pain; Chest pressure; Additional info: Chest pain TECHNIQUE: Imaging protocol: Radiologic exam of the chest. Views: 1 view. COMPARISON: CR XR CHEST PORTABLE 05/18/2024 8:17 PM FINDINGS: Tubes, catheters and devices: Right chest wall MediPort catheter tip at the cavoatrial junction. Lungs: Unremarkable. No consolidation. Pleural spaces: Unremarkable. No pleural effusion. No pneumothorax. Heart/Mediastinum: Heart is large. Bones/joints: Lower cervical spine fixation hardware. IMPRESSION: No acute findings.
--- NOTE | 2024-06-28 22:50 | [facility].EDCP ---
Discharge Plan Disposition Patient Disposition: Home, Self-Care Prescriptions Prescriptions: New oxycodone 5 mg tablet 5 mg PO Q8H PRN (Reason: pain) Qty: 12 0RF No Action omeprazole 40 mg capsule,delayed release(DR/EC) 40 mg PO DAILY metformin 1,000 mg tablet 1,000 mg PO BID Qty: 180 3RF metoprolol succinate 50 mg tablet extended release 24 hr PO Patient Comments: TAKE 1 TABLET(50 mg) orally daily for High Blood Pressure penicillin V potassium 500 mg tablet PO DAILY Patient Comments: TAKE ONE TABLET BY MOUTH FOUR TIMES DAILY FOR SEVEN DAYS alprazolam 1 mg tablet 1 mg PO TID PRN (Reason: Anxiety) Qty: 90 3RF losartan 50 mg tablet 50 mg PO DAILY Qty: 90 3RF atorvastatin 40 mg tablet 40 mg PO HS Qty: 90 3RF levothyroxine 100 mcg tablet 100 mcg PO DAILY Qty: 90 3RF conjugated estrogens 0.3 mg tablet 0.3 mg PO DAILY Qty: 30 1RF Rx Instructions: cyclically triamcinolone acetonide 0.1 % ointment 1 applic topical QID Qty: 30 1RF Rx Instructions: apply to lesions on scalp 4x/day as needed trazodone 100 mg tablet See Rx Instructions .ROUTE .COMPLEX Qty: 90 3RF Dose Instruction: TAKE ONE TABLET BY MOUTH DAILY Rx Instructions: TAKE ONE TABLET BY MOUTH DAILY quetiapine 50 mg tablet See Rx Instructions .ROUTE .COMPLEX Qty: 30 1RF Dose Instruction: take 1 tablet(50 mg) orally at bedtime nightly Rx Instructions: take 1 tablet(50 mg) orally at bedtime nightly potassium chloride 10 mEq tablet extended release 10 meq PO DAILY Qty: 90 1RF albuterol sulfate 90 mcg/actuation HFA aerosol inhaler 2 inh IH Q4HP PRN (Reason: Shortness Of Breath Or Wheezing) Qty: 6.7 2RF duloxetine 60 mg capsule,delayed release(DR/EC) 60 mg PO BID 90 Days Qty: 180 1RF nystatin 100,000 unit/mL suspension 4 ml PO QID 10 Days Qty: 160 1RF Rx Instructions: swish, gargle, and swallow cephalexin 500 mg capsule 500 mg PO BID Qty: 14 0RF nitroglycerin 0.4 mg tablet, sublingual 0.4 mg sublingual Q5MINP PRN (Reason: chest pain) Rx Instructions: do not exceed 3 doses per episode ropinirole 0.25 mg tablet 0.25 mg PO HS Qty: 30 2RF Rx Instructions: administer 1-3 hours before bedtime gabapentin 600 mg tablet 600 mg PO BID Qty: 60 2RF ropinirole 0.25 mg tablet 0.25 mg PO HS Qty: 30 2RF Rx Instructions: administer 1-3 hours before bedtime gabapentin 600 mg tablet 600 mg PO BID Qty: 60 5RF furosemide 20 mg tablet 20 mg PO DAILY Qty: 30 1RF isosorbide mononitrate 30 MG tablet extended release 24 hr 30 mg PO DAILY albuterol sulfate 2.5 mg /3 mL (0.083 %) solution for nebulization 2.5 mg inhalation Q6H promethazine 25 mg tablet 25 mg PO TID PRN (Reason: Nausea And Vomiting) montelukast 10 mg tablet 10 mg PO HS Rx Instructions: take 1 tablet by mouth at bedtime for Allergy symptoms ticagrelor 90 mg Tablet 90 mg PO BID rivaroxaban 20 mg Tablet 20 mg PO HS metoprolol succinate 25 mg tablet extended release 24 hr 25 mg PO DAILY Patient Comments: TAKE ONE TABLET BY MOUTH DAILY Referrals Follow up/Referrals: Juan C Colón MD [Primary Care Provider] - See instructions Activity Restrictions/Add. Instructions Additional Instructions/Restrictions: Please take your home Phenergan and Tylenol as needed for nausea and pain. Please take oxycodone as needed for severe pain. Please follow-up with your primary care provider. Please return to the emergency department if you develop any new or worsening symptoms or become concerned for your health. 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 Clinical Impressions Clinical Impression: Chest pain Abdominal pain Qualifiers: Abdominal location: epigastric Qualified Code(s): R10.13 - Epigastric pain Print Language Print Language: Omani Discharge ED Provider: Tramaine Liu <Grisel Worthington DO - Last Filed: 06/28/24 22:58> General Chief Complaint: Chest Pain Stated Complaint: chest pain Time Seen by Provider: 06/28/24 22:44 Mode of Arrival: EMS Source of Information: Patient Limitations: No Limitations Description of Symptoms (Recalled from ER Triage Doc. by RN): 63 yo female with acute onset of angina that occurred approx 30 mins prior to arrival to this ED. VSS. Denies any recent exertion, changes in meds or changes in diet. States she was sitting in her chair and the pain came on, radiating into her back. She describes it as pressure. Slightly nauseated. O2 dependent on 3lpm/nc. A&Ox4. History of Present Illness HPI narrative: This patient is a 63-year-old female who is well-known to the emergency department with history of atrial fibrillation on metoprolol and Xarelto, GERD, COPD on 3 L nasal cannula at home, CAD status post stenting, CHF, prior CVA, hypertension, hyperlipidemia, and recurrent and chronic chest pain presenting to the emergency department for evaluation with concern for chest and upper abdominal pain that started approximately 30 minutes prior to arrival. She took nitroglycerin at home with no improvement. She notes that it severe and constant and it started at rest. She describes it as a pressure. Nothing makes it better or worse. She also reports nausea. Patient arrives by EMS. EMS notes the patient is in A-fib with RVR en route but otherwise vitals stable. Patient states that this pain is the same as the chest pain that she has been evaluated here for in the past. She states that she is afraid she is taking pancreatitis again. She is requesting pain and nausea medication. On medical review, patient is on multiple recent ED visits for similar symptoms. Patient reports compliance with her home medications, including her metoprolol and Xarelto. Related Data Home Medications ?Medication ?Instructions ?Recorded ?Confirmed isosorbide mononitrate 30 mg 30 mg PO DAILY 10/24/21 03/24/24 tablet,extended release 24 hr albuterol sulfate 2.5 mg/3 mL 2.5 mg inhalation Q6H 04/01/23 03/24/24 (0.083 %) solution for nebulization omeprazole 40 mg capsule,delayed 40 mg PO DAILY 04/08/23 03/24/24 release nitroglycerin 0.4 mg sublingual 0.4 mg sublingual Q5MINP PRN chest 07/13/23 03/24/24 tablet pain promethazine 25 mg tablet 25 mg PO TID PRN Nausea And 03/16/24 03/24/24 Vomiting montelukast 10 mg tablet 10 mg PO HS 03/17/24 03/24/24 rivaroxaban 20 mg tablet 20 mg PO HS 03/17/24 03/24/24 ticagrelor 90 mg tablet 90 mg PO BID 03/17/24 03/24/24 metoprolol succinate 25 mg 25 mg PO DAILY 03/18/24 03/24/24 tablet,extended release 24 hr metoprolol succinate 50 mg mg PO 05/27/24 05/27/24 tablet,extended release 24 hr penicillin V potassium 500 mg mg PO DAILY 05/27/24 05/27/24 tablet Previous Rx's ?Medication ?Instructions ?Recorded losartan 50 mg tablet 50 mg PO DAILY #90 tabs 11/06/23 metformin 1,000 mg tablet 1,000 mg PO BID #180 tabs 01/09/24 ropinirole 0.25 mg tablet 0.25 mg PO HS Restless Leg(S) #30 02/18/24 tabs gabapentin 600 mg tablet 600 mg PO BID #60 tabs 03/22/24 ropinirole 0.25 mg tablet 0.25 mg PO HS #30 tabs 03/22/24 atorvastatin 40 mg tablet 40 mg PO HS #90 tabs 04/08/24 levothyroxine 100 mcg tablet 100 mcg PO DAILY #90 tabs 04/08/24 furosemide 20 mg tablet 20 mg PO DAILY #30 tabs 05/19/24 conjugated estrogens 0.3 mg tablet 0.3 mg PO DAILY #30 tabs 05/24/24 alprazolam 1 mg tablet 1 mg PO TID PRN Anxiety #90 tabs 05/27/24 triamcinolone acetonide 0.1 % 1 applic topical QID #30 grams 05/29/24 topical ointment trazodone 100 mg tablet See Rx Instructions .Route 06/04/24 .COMPLEX #90 tabs quetiapine 50 mg tablet See Rx Instructions .Route 06/09/24 .COMPLEX #30 tabs albuterol sulfate 90 mcg/actuation 2 inh inhalation Q4HP PRN 06/14/24 aerosol inhaler Shortness Of Breath Or Wheezing #6.7 grams potassium chloride 10 mEq 10 meq PO DAILY #90 tabs 06/14/24 tablet,extended release gabapentin 600 mg tablet 600 mg PO BID #60 tabs 06/16/24 duloxetine 60 mg capsule,delayed 60 mg PO BID 90 days #180 caps 06/17/24 release cephalexin 500 mg capsule 500 mg PO BID #14 caps 06/22/24 nystatin 100,000 unit/mL oral 4 ml PO QID 10 days #160 mL 06/22/24 suspension oxycodone 5 mg tablet 5 mg PO Q8H PRN pain #12 tabs 06/29/24 Allergies Allergy/AdvReac Type Severity Reaction Status Date / Time codeine [CODEINE] Allergy Intermediate N/V Verified 05/27/24 15:38 ketorolac [KETOROLAC] Allergy Intermediate Hives Verified 05/27/24 15:38 meperidine [MEPERIDINE] Allergy Intermediate Hives Verified 05/27/24 15:38 tramadol [TRAMADOL] Allergy Intermediate Hives Verified 05/27/24 15:38 verapamil Allergy Mild Unknown Verified 05/27/24 15:38 allergy reaction ciprofloxacin AdvReac Severe Interacts Verified 05/27/24 15:38 with cymbalta PFSH <Grisel Worthington DO - Last Filed: 06/28/24 22:58> PFSH Disclaimer: The information contained in this section may have been updated after the patient was seen, as this information can be updated by other users. Medical History COPD (chronic obstructive pulmonary disease) HLD (hyperlipidemia) Diabetes Anxiety and depression TIA (transient ischemic attack) History of stroke History of multiple cerebrovascular accidents (CVAs) History of class III angina pectoris Unstable angina Typical angina Dyspnea History of pancreatitis History of CVA (cerebrovascular accident) Surgical History History of biliary duct stent placement History of hysterectomy History of cholecystectomy History of coronary artery stent placement Family History Other Family history of cancer Family history of diabetes mellitus Social History Smoking Status: Former smoker tobacco type: cigarettes packs per day: 1 second hand exposure: No alcohol intake: never counseling provided: none substance use type: marijuana and crack/cocaine current occupational status: retired and other Travel in the last 8 weeks: None household members: spouse housing: house number of children: 2 current occupational exposures/hazards: No caffeine: Yes <Grisel Worthington DO - Last Filed: 06/28/24 22:58> ROS Obtained: Yes All systems reviewed & no additional complaints except as documented Physical Exam <Griesl Worthington DO - Last Filed: 06/28/24 22:58> General General appearance: alert and in no apparent distress Head Head exam: atraumatic and normocephalic Eye Eye exam: Present normal appearance, PERRL and EOMI ENT ENT exam: Present normal exam, normal oropharynx, mucous membranes moist and normal external ear exam Neck Neck exam: Present normal inspection, full ROM and trachea midline; Absent tenderness Chest Chest inspection: Present normal inspection and symmetric chest wall rise; Absent tenderness Respiratory Respiratory exam: Present normal lung sounds bilaterally; Absent respiratory distress, wheezes, stridor or accessory muscle use Cardiovascular Cardiovascular exam: Present tachycardia and irregular rhythm Abdominal Exam Abdominal exam: Present soft and tenderness (Epigastric); Absent distention or guarding Extremities Exam Extremities exam: Present normal inspection, full ROM and normal capillary refill; Absent tenderness or edema Back Exam Back exam: Present normal inspection and full ROM; Absent tenderness Neurological Exam Neurological exam: Present alert, oriented X3, CN II-XII intact and normal gait; Absent motor sensory deficit Psychiatric Psychiatric exam: Present normal affect and normal mood Skin Skin exam: Present warm and dry HEART Score <Grisel Worthington DO - Last Filed: 06/28/24 22:58> HEART Score HEART Score assessment performed?: No History (anamnesis): Slightly suspicious ECG: Non-specific disturbance Age: 45-65 years Risk factors: Atherosclerosis history <Tramaine Liu MD - Last Filed: 06/29/24 02:46> HEART Score HEART Score assessment performed?: Yes Troponin: </= normal limit HEART Score: 4 Critical Care <Grisel Worthington DO - Last Filed: 06/28/24 22:58> Critical Care Time Critical Care Time: No Medical Decision Making <Grisel Worthington DO - Last Filed: 06/28/24 22:58> Medical Records Medical records reviewed: Yes I reviewed the patient's medical records. Delroy Inquiry Pt receiving controlled substance: No Vital Signs Vital Signs: 06/28/24 22:43 06/28/24 23:00 06/28/24 23:06 Temperature 97.8 F Temperature Source Oral Pulse Rate Pulse Rate [Right Brachial] 121 H Respiratory Rate 26 H Blood Pressure 89/65 L 105/81 L Blood Pressure [Right Arm] 111/71 Blood Pressure Mean 71 89 Blood Pressure Mean [Right Arm] 84 Blood Pressure Source Blood Pressure Source [Right Arm] Automatic Cuff Blood Pressure Position Blood Pressure Position [Right Arm] Sitting 02 Sat by Pulse Oximetry 95 Oxygen Delivery Method Nasal Cannula Oxygen Flow Rate (LPM) 3 06/28/24 23:30 06/28/24 23:55 06/29/24 00:29 Temperature Temperature Source Pulse Rate Pulse Rate [Right Brachial] Respiratory Rate Blood Pressure 91/62 L 88/50 L 80/62 L Blood Pressure [Right Arm] Blood Pressure Mean 74 56 Blood Pressure Mean [Right Arm] Blood Pressure Source Manual Cuff/ Auscultation Blood Pressure Source [Right Arm] Blood Pressure Position Supine Blood Pressure Position [Right Arm] 02 Sat by Pulse Oximetry Oxygen Delivery Method Oxygen Flow Rate (LPM) 06/29/24 00:45 06/29/24 01:31 06/29/24 01:45 Temperature Temperature Source Pulse Rate 70 Pulse Rate [Right Brachial] Respiratory Rate 12 Blood Pressure 87/60 L 98/67 L Blood Pressure [Right Arm] Blood Pressure Mean 66 76 Blood Pressure Mean [Right Arm] Blood Pressure Source Blood Pressure Source [Right Arm] Blood Pressure Position Blood Pressure Position [Right Arm] 02 Sat by Pulse Oximetry 94 L Oxygen Delivery Method Oxygen Flow Rate (LPM) 06/29/24 02:00 Temperature Temperature Source Pulse Rate Pulse Rate [Right Brachial] Respiratory Rate Blood Pressure 95/68 L Blood Pressure [Right Arm] Blood Pressure Mean 79 Blood Pressure Mean [Right Arm] Blood Pressure Source Blood Pressure Source [Right Arm] Blood Pressure Position Blood Pressure Position [Right Arm] 02 Sat by Pulse Oximetry Oxygen Delivery Method Oxygen Flow Rate (LPM) Lab Data Labs: Lab Results 06/28/24 22:59: WBC 11.4 H, RBC 3.89 L, Hgb 9.4 L, Hct 29.0 L, MCV 74.5 L, MCH 24.2 L, MCHC 32.5, RDW 19.7 H, Plt Count 422, MPV 7.7, Neut % (Auto) 57.3, Lymph % (Auto) 35.4, Frederick % (Auto) 4.1, Eos % (Auto) 2.4, Baso % (Auto) 0.7, Neut # (Auto) 6.5, Lymph # (Auto) 4.0, Frederick # (Auto) 0.5, Eos # (Auto) 0.3, Baso # (Auto) 0.1, PT 13.3 H, INR 1.21 H, APTT 32.0 H, D-Dimer < 0.25, Sodium 137, Potassium 3.5, Chloride 104, Carbon Dioxide 25, Anion Gap 11.5, BUN 18 H, Creatinine 1.10 H, Estimated Creat Clear 84, Estimated GFR 50 L, Est GFR ( Amer) 61, Glucose 127 H, Calcium 8.3 L, Total Bilirubin 0.5, AST 32, ALT 25, Alkaline Phosphatase 135 H, Troponin I < 0.01, NT-Pro-B Natriuret Pep 1780 H, Total Protein 7.2, Albumin 3.9, Globulin 3.3 H, Albumin/Globulin Ratio 1.2, Lipase 87 06/29/24 01:53: Troponin I < 0.01 06/28/24 22:59 06/28/24 22:59 Response Orders (Tests/Meds): ED MEDICATIONS Generic Name Dose Route Start Last Admin Trade Name Freq PRN Reason Stop Dose Admin Oxycodone HCl 10 mg 06/29/24 02:33 06/29/24 02:37 Oxycodone 5mg Immediate Release Tablet PO 06/29/24 02:34 10 mg ONCE ONE Administration Discontinued Medications Generic Name Dose Route Start Last Admin Trade Name Freq PRN Reason Stop Dose Admin Acetaminophen 1,000 mg 06/28/24 22:50 06/28/24 22:56 Acetaminophen 1,000mg/100ml Vial IV 06/28/24 22:51 1,000 mg ONCE ONE Administration Belladonna Alkaloids 60 ml 06/28/24 22:50 06/28/24 22:56 Belladonna Alkaloids 60 Ml Ml PO 06/28/24 22:51 60 ml ONCE ONE Administration Hydromorphone HCl 0.5 mg 06/28/24 23:19 06/28/24 23:24 Hydromorphone 2mg/Ml Syringe IM 06/28/24 23:20 0.5 mg ONCE ONE Administration Lactated Ringer's 1,000 mls @ 999 mls/hr 06/28/24 23:15 06/28/24 23:16 Lactated Ringer's 1000 Ml Bag IV 06/29/24 00:15 999 mls/hr .Q1H1M CRISTOPHER Administration Promethazine HCl 25 mg 06/28/24 22:50 06/28/24 22:56 Promethazine Hcl 25mg/Ml 1ml Vial IV 06/28/24 22:51 25 mg ONCE ONE Administration Sodium Chloride 25 ml 06/28/24 22:50 06/28/24 22:56 Sodium Chloride 0.9% 25ml Bag IV 06/28/24 22:51 25 ml ONCE ONE Administration ORDERS Category Date Time Status CXR --portable [XR chest portable] Stat Exams 06/28/24 22:45 Completed BNP [NT Pro Brain Natriuretic Pep.] Stat Lab 06/28/24 22:59 Completed CBC w/Auto Diff [Complete Blood Count Auto Diff] Stat Lab 06/28/24 22:59 Completed CMP [Comprehensive Metabolic Panel] Stat Lab 06/28/24 22:59 Completed D-Dimer Stat Lab 06/28/24 22:59 Completed Lipase Stat Lab 06/28/24 22:59 Completed PT INR [Prothrombin Time INR] Stat Lab 06/28/24 22:59 Completed PTT [Activated Partial Thrombo Time] Stat Lab 06/28/24 22:59 Completed Trop I [Troponin I] Stat Lab 06/28/24 22:59 Completed Troponin I Q3H Lab 06/29/24 01:53 Completed Troponin I Q3H Lab 06/29/24 04:45 Ordered ECG Data Tracing #1: Attestation: I reviewed this ECG and interpreted as documented below: ECG Narrative: Atrial fibrillation with rapid ventricular response with a ventricular rate of [address] changes concerning for ischemia. Nonspecific ST/T wave changes that are not significantly changed from prior EKG ECG initial impression date: 06/28/24 ECG initial impression time: 22:45 MDM Narrative Medical Decision Narrative: In summary, this patient is a 63-year-old female presenting to the Emergency Department for evaluation of chest pain, upper abdominal pain, and nausea. Differential diagnoses considered include but are not limited to GERD, gastritis, pancreatitis, ACS, dysrhythmia, CHF exacerbation, PE. Ruling out the most morbid conditions drove assessment. It should be noted patient's history includes extensive cardiovascular history as well as chronic chest pain which may or may not be at goal therapy. This complicates all aspects of care by increasing patient's risk for morbidity. I reviewed patient's past medical records and noted previous evaluations for similar symptoms as per HPI. On exam, the patient is lying in bed in no acute distress normal oxygen saturation on her home 3 L nasal cannula. She does have atrial fibrillation with RVR with a rate in the 1 teens to 120s hemodynamically stable. Workup included CBC, CMP, troponin, D-dimer, BNP, lipase, PT, PTT, chest x-ray, EKG. Patient was given IV acetaminophen, oral GI cocktail, and IV Phenergan for symptomatic improvement. EKG demonstrates atrial fibrillation with RVR with no acute STEMI. Patient care signed to the oncoming provider, Dr. Liu, pending chest pain workup and disposition. [COMPLETE HEART SCORE] <Tramaine Liu MD - Last Filed: 06/29/24 02:46> Vital Signs Vital Signs: 06/28/24 22:43 06/28/24 23:00 06/28/24 23:06 Temperature 97.8 F Temperature Source Oral Pulse Rate Pulse Rate [Right Brachial] 121 H Respiratory Rate 26 H Blood Pressure 89/65 L 105/81 L Blood Pressure [Right Arm] 111/71 Blood Pressure Mean 71 89 Blood Pressure Mean [Right Arm] 84 Blood Pressure Source Blood Pressure Source [Right Arm] Automatic Cuff Blood Pressure Position Blood Pressure Position [Right Arm] Sitting 02 Sat by Pulse Oximetry 95 Oxygen Delivery Method Nasal Cannula Oxygen Flow Rate (LPM) 3 06/28/24 23:30 06/28/24 23:55 06/29/24 00:29 Temperature Temperature Source Pulse Rate Pulse Rate [Right Brachial] Respiratory Rate Blood Pressure 91/62 L 88/50 L 80/62 L Blood Pressure [Right Arm] Blood Pressure Mean 74 56 Blood Pressure Mean [Right Arm] Blood Pressure Source Manual Cuff/ Auscultation Blood Pressure Source [Right Arm] Blood Pressure Position Supine Blood Pressure Position [Right Arm] 02 Sat by Pulse Oximetry Oxygen Delivery Method Oxygen Flow Rate (LPM) 06/29/24 00:45 06/29/24 01:31 06/29/24 01:45 Temperature Temperature Source Pulse Rate 70 Pulse Rate [Right Brachial] Respiratory Rate 12 Blood Pressure 87/60 L 98/67 L Blood Pressure [Right Arm] Blood Pressure Mean 66 76 Blood Pressure Mean [Right Arm] Blood Pressure Source Blood Pressure Source [Right Arm] Blood Pressure Position Blood Pressure Position [Right Arm] 02 Sat by Pulse Oximetry 94 L Oxygen Delivery Method Oxygen Flow Rate (LPM) 06/29/24 02:00 Temperature Temperature Source Pulse Rate Pulse Rate [Right Brachial] Respiratory Rate Blood Pressure 95/68 L Blood Pressure [Right Arm] Blood Pressure Mean 79 Blood Pressure Mean [Right Arm] Blood Pressure Source Blood Pressure Source [Right Arm] Blood Pressure Position Blood Pressure Position [Right Arm] 02 Sat by Pulse Oximetry Oxygen Delivery Method Oxygen Flow Rate (LPM) Lab Data Labs: Lab Results 06/28/24 22:59: WBC 11.4 H, RBC 3.89 L, Hgb 9.4 L, Hct 29.0 L, MCV 74.5 L, MCH 24.2 L, MCHC 32.5, RDW 19.7 H, Plt Count 422, MPV 7.7, Neut % (Auto) 57.3, Lymph % (Auto) 35.4, Frederick % (Auto) 4.1, Eos % (Auto) 2.4, Baso % (Auto) 0.7, Neut # (Auto) 6.5, Lymph # (Auto) 4.0, Frederick # (Auto) 0.5, Eos # (Auto) 0.3, Baso # (Auto) 0.1, PT 13.3 H, INR 1.21 H, APTT 32.0 H, D-Dimer < 0.25, Sodium 137, Potassium 3.5, Chloride 104, Carbon Dioxide 25, Anion Gap 11.5, BUN 18 H, Creatinine 1.10 H, Estimated Creat Clear 84, Estimated GFR 50 L, Est GFR ( Amer) 61, Glucose 127 H, Calcium 8.3 L, Total Bilirubin 0.5, AST 32, ALT 25, Alkaline Phosphatase 135 H, Troponin I < 0.01, NT-Pro-B Natriuret Pep 1780 H, Total Protein 7.2, Albumin 3.9, Globulin 3.3 H, Albumin/Globulin Ratio 1.2, Lipase 87 06/29/24 01:53: Troponin I < 0.01 Response Orders (Tests/Meds): ED MEDICATIONS Generic Name Dose Route Start Last Admin Trade Name Freq PRN Reason Stop Dose Admin Oxycodone HCl 10 mg 06/29/24 02:33 06/29/24 02:37 Oxycodone 5mg Immediate Release Tablet PO 06/29/24 02:34 10 mg ONCE ONE Administration Discontinued Medications Generic Name Dose Route Start Last Admin Trade Name Adam PRN Reason Stop Dose Admin Acetaminophen 1,000 mg 06/28/24 22:50 06/28/24 22:56 Acetaminophen 1,000mg/100ml Vial IV 06/28/24 22:51 1,000 mg ONCE ONE Administration Belladonna Alkaloids 60 ml 06/28/24 22:50 06/28/24 22:56 Belladonna Alkaloids 60 Ml Ml PO 06/28/24 22:51 60 ml ONCE ONE Administration Hydromorphone HCl 0.5 mg 06/28/24 23:19 06/28/24 23:24 Hydromorphone 2mg/Ml Syringe IM 06/28/24 23:20 0.5 mg ONCE ONE Administration Lactated Ringer's 1,000 mls @ 999 mls/hr 06/28/24 23:15 06/28/24 23:16 Lactated Ringer's 1000 Ml Bag IV 06/29/24 00:15 999 mls/hr .Q1H1M CRISTOPHER Administration Promethazine HCl 25 mg 06/28/24 22:50 06/28/24 22:56 Promethazine Hcl 25mg/Ml 1ml Vial IV 06/28/24 22:51 25 mg ONCE ONE Administration Sodium Chloride 25 ml 06/28/24 22:50 06/28/24 22:56 Sodium Chloride 0.9% 25ml Bag IV 06/28/24 22:51 25 ml ONCE ONE Administration ORDERS Category Date Time Status CXR --portable [XR chest portable] Stat Exams 06/28/24 22:45 Completed BNP [NT Pro Brain Natriuretic Pep.] Stat Lab 06/28/24 22:59 Completed CBC w/Auto Diff [Complete Blood Count Auto Diff] Stat Lab 06/28/24 22:59 Completed CMP [Comprehensive Metabolic Panel] Stat Lab 06/28/24 22:59 Completed D-Dimer Stat Lab 06/28/24 22:59 Completed Lipase Stat Lab 06/28/24 22:59 Completed PT INR [Prothrombin Time INR] Stat Lab 06/28/24 22:59 Completed PTT [Activated Partial Thrombo Time] Stat Lab 06/28/24 22:59 Completed Trop I [Troponin I] Stat Lab 06/28/24 22:59 Completed Troponin I Q3H Lab 06/29/24 01:53 Completed Troponin I Q3H Lab 06/29/24 04:45 Ordered MDM Narrative Medical Decision Narrative: In summary, this patient is a 63-year-old female presenting to the Emergency Department for evaluation of chest pain, upper abdominal pain, and nausea. Differential diagnoses considered include but are not limited to GERD, gastritis, pancreatitis, ACS, dysrhythmia, CHF exacerbation, PE. Ruling out the most morbid conditions drove assessment. It should be noted patient's history includes extensive cardiovascular history as well as chronic chest pain which may or may not be at goal therapy. This complicates all aspects of care by increasing patient's risk for morbidity. I reviewed patient's past medical records and noted previous evaluations for similar symptoms as per HPI. On exam, the patient is lying in bed in no acute distress normal oxygen saturation on her home 3 L nasal cannula. She does have atrial fibrillation with RVR with a rate in the 1 teens to 120s hemodynamically stable. Workup included CBC, CMP, troponin, D-dimer, BNP, lipase, PT, PTT, chest x-ray, EKG. Patient was given IV acetaminophen, oral GI cocktail, and IV Phenergan for symptomatic improvement. EKG demonstrates atrial fibrillation with RVR with no acute STEMI. Patient care signed to the oncoming provider, Dr. Liu, pending chest pain workup and disposition. Noe JUAREZ: I assumed care of the patient at the time of handoff from the prior provider. On reassessment patient tells me that her pain has migrated to her epigastric area and she thinks it is likely the onset of pancreatitis. Reports that her chest pain is improved. Patient's heart rate markedly improved after 1 L of IV fluids and 0.5 Dilaudid for pain control. Initial blood work shows no significant electrolyte derangement or ALYSE. Undetectable initial troponin, D-dimer within normal limits. Lipase within normal limits. Chest x-ray interpreted by me and shows no evidence of acute pneumonia or pneumothorax. Repeat troponin obtained and is again undetectably low. I discussed with patient the utility of a CT of the abdomen and pelvis at this time. She reports that she has had a ton of CT scans and she does not think it would be useful, she thinks that she may be having very early pancreatitis. This is certainly possible. Based on workup here, no evidence of other emergent pathology. Patient's abdomen exam is benign at this time. After discussion with patient, we will discharge with a short course of oxycodone for pain control with the presumption that she may be at the early stages of pancreatitis. She was given return precautions and discharged in stable condition.
[2024-06-28] MEDS: PROMETHAZINE HCL 25MG/ML 1ML VIAL 25 MG IV (22:56)
[2024-06-28] MEDS: SODIUM CHLORIDE 0.9% 25ML BAG 25 ML IV (22:56)
[2024-06-28] MEDS: BELLADONNA ALKALOIDS 60 ML ML PO (22:56)
[2024-06-28] MEDS: ACETAMINOPHEN 1,000MG/100ML VIAL 1000 MG IV (22:56)
[2024-06-28 23:00] VITALS: BP 89/65
[2024-06-28 23:06] VITALS: BP 105/81
[2024-06-28 23:11] LABS: Basophils # 0.1 K/mm3 (0-0.2); Basophils % 0.7 % (0.1-2.0); Eosinophils # 0.3 K/mm3 (0.0-0.4); Eosinophils % 2.4 % (0.1-12.0); Hemoglobin 9.4 g/dL (12.2-16.2); Lymphocytes % 35.4 % (10-50); Mean Corpuscular HGB Conc 32.5 g/dL (31.8-35.4); Mean Corpuscular Hemoglobin 24.2 pg (27.0-31.2); Mean Corpuscular Volume 74.5 fl (81-99); Mean Platelet Volume 7.7 fl (7.4-10.4); Monocytes # 0.5 K/mm3 (0.1-1.0); Monocytes % 4.1 % (1.7-9.3); Neutrophils # 6.5 K/mm3 (1.8-7.8); Neutrophils % 57.3 % (37.0-80.0); Platelet Count 422 K/mm3 (142-424); Red Blood Count 3.89 M/mm3 (4.20-5.40); Red Cell Distribution Width 19.7 % (11.5-17.5); White Blood Count 11.4 K/mm3 (4.8-10.8)
[2024-06-28] MEDS: LACTATED RINGERS 1000ML 1,000 ML 999 ML IV (23:16)
[2024-06-28 23:18] LABS: Albumin Level 3.9 g/dl (3.5-5.0); Chloride 104 mmol/L (98-107); Potassium 3.5 mmoL/L (3.5-5.1); Sodium 137 mmol/L (136-145)
[2024-06-28 23:21] LABS: Alanine Aminotransferase 25 U/L (12-78); Albumin/Globulin Ratio 1.2 (1.1-1.8); Alkaline Phosphatase 135 U/L (38-126); Anion Gap 11.5 mEq/L (5-15); Aspartate Amino Transferase 32 U/L (14-36); Bilirubin,Total 0.5 mg/dl (0.2-1.3); Blood Urea Nitrogen 18 mg/dl (7-17); Carbon Dioxide 25 mmol/L (22.0-30.0); Creatinine Clearance Estimated 84 mL/min (50-200); Estimated Glomerular Filt Rate 50 ml/min (>60); GFR (African American) 61 ML/MIN (>60); Globulin 3.3 g/dL (1.3-3.2); Total Protein,Serum 7.2 g/dl (6.3-8.2)
[2024-06-28 23:22] LABS: Calcium 8.3 mg/dl (8.4-10.2); Glucose 127 mg/dl (74-100)
[2024-06-28 23:24] LABS: INR 1.21 (0.9-1.1); Lipase 87 U/L (23-300); Prothrombin Time 13.3 seconds (10.1-12.5)
[2024-06-28] MEDS: HYDROMORPHONE 2MG/ML SYRINGE 0.5 MG IM (23:24)
[2024-06-28 23:30] VITALS: BP 91/62
[2024-06-28 23:31] LABS: D-Dimer < 0.25 ug/mL (0.0-0.5)
[2024-06-28 23:33] LABS: Troponin I < 0.01 ng/ml (0.00-0.034)
[2024-06-28 23:34] LABS: NT Pro Brain Natriuretic Pep. 1780 pg/mL (0-125)
[2024-06-28 23:55] VITALS: BP 88/50
[2024-06-29 00:29] VITALS: BP 80/62
[2024-06-29 00:45] VITALS: PULSE 70; RESP 12; O2SAT 94
[2024-06-29 01:31] VITALS: BP 87/60
[2024-06-29 01:45] VITALS: BP 98/67
[2024-06-29 02:00] VITALS: BP 95/68
[2024-06-29 02:22] LABS: Troponin I < 0.01 ng/ml (0.00-0.034)
[2024-06-29] MEDS: OXYCODONE 5MG IMMEDIATE RELEASE TABLET 10 MG PO (02:37)
[2024-06-29 02:46] VITALS: BP 107/69; PULSE 87; RESP 18; TEMP 37.1; O2SAT 97
--- NOTE | 2024-06-29 02:46 | PC.NURSE ---
right port was d/c after Heparin flush was administered at this time.
== END 2024-06-29 02:55 | disposition home or self-care (01) ==
PROVIDERS: Emergency Medicine; Emergency Provider Emergency Medicine; PCP Family Medicine
DX: R10.13 Epigastric pain (principal); R07.9 Chest pain, unspecified; R11.0 Nausea; I48.91 Unspecified atrial fibrillation; J44.9 Chronic obstructive pulmonary disease, unspecified; I11.0 Hypertensive heart disease with heart failure; I50.9 Heart failure, unspecified; K21.9 Gastro-esophageal reflux disease without esophagitis; E78.5 Hyperlipidemia, unspecified; I25.119 Atherosclerotic heart disease of native coronary artery with unspecified angina pectoris; Z86.73 Personal history of transient ischemic attack (TIA), and cerebral infarction without residual deficits; Z79.01 Long term (current) use of anticoagulants; Z87.891 Personal history of nicotine dependence; Z95.5 Presence of coronary angioplasty implant and graft; E11.9 Type 2 diabetes mellitus without complications; Z79.84 Long term (current) use of oral hypoglycemic drugs
CPT/HCPCS: 71045; 80053; 83690; 83880; 84484; 85025; 85378; 85610; 85730; 93005; 96361; 96372; 96374; 96375; 99285; J0131; J1170; J1642; J2550; J7120

== ENCOUNTER 2024-08-21 16:59 | Observation (INO) | payer MEDICARE, MEDICAID, SELFPAY ==
[2024-08-21] VITALS (17 sets, daily range): BP systolic 101–120; BP diastolic 75–90; PULSE 97–121; RESP 14–25; TEMP 36.6–36.7; O2SAT 93–98; BMI 40.3
--- NOTE | 2024-08-21 17:04 | XR_ITS ---
PROCEDURE INFORMATION: Exam: XR Chest Exam date and time: 08/21/2024 5:04 PM Age: 63 years old Clinical indication: Other: Chest pain TECHNIQUE: Imaging protocol: Radiologic exam of the chest. Views: 1 view. COMPARISON: CR XR CHEST PORTABLE 06/28/2024 11:23 PM FINDINGS: Tubes, catheters and devices: There is a right chest port in place catheter tip projects over the SVC. Lungs: No evidence of acute pulmonary disease or infiltrates Pleural spaces: No large effusion or pneumothorax. Heart/Mediastinum: Stable cardiac and mediastinal contours. Bones/joints: There is partially visualized cervical spine surgical hardware. IMPRESSION: No dense parenchymal consolidation, pleural effusion, or pneumothorax.
--- NOTE | 2024-08-21 17:09 | ECG_ITS ---
APPROVED REPORT Exam: Resting ECG HR:114 bpm ECG Measurements Heart Rate 114 AXES QRSd 88 QRS 61 QT 347 T 90 QTc 414 Conclusion ATRIAL FIBRILLATION WITH RAPID VENTRICULAR RESPONSE MINIMAL ST DEPRESSION [0.025+ mV ST DEPRESSION] ABNORMAL RHYTHM ECG Electronically signed by : JOSE KUHN, 08/21/2024 23:59:01
--- NOTE | 2024-08-21 17:14 | HMH.EDGENADL ---
Discharge Plan Disposition Patient Disposition: Admitted Condition: Good Clinical Impressions Clinical Impression: Chest pain, Atrial fibrillation with RVR Discharge ED Provider: Grisel Worthington General Adult HPI General Chief complaint: Chest Pain Stated complaint: CHEST PAIN Time Seen by Provider: 08/21/24 16:59 History of Present Illness HPI narrative: This patient is a 63-year-old female with a history of CAD status post stenting on Brilinta, CHF, volume overload, atrial fibrillation on Xarelto, CVA, hypertension, hyperlipidemia, pancreatitis, obesity, and diabetes with port in place due to difficult IV access presenting to the emergency department for evaluation with concern for chest pain. Patient states she woke up this morning with chest pain that feels like an elephant sitting on her chest. Its midsternal and radiates around her left breast but does not radiate to her back. She denies any fevers, chills, cough, congestion, abdominal pain, nausea, or vomiting. She does note mild shortness of breath associated with this. She states that it does not feel similar to prior bronchitis. She notes she was seen here for issue like this in the past and he thought it was due to CHF. She is on a diuretic at home and reports compliance with her home medications. Related Data Home Medications ?Medication ?Instructions ?Recorded ?Confirmed isosorbide mononitrate 30 mg 30 mg PO DAILY 10/24/21 03/24/24 tablet,extended release 24 hr albuterol sulfate 2.5 mg/3 mL 2.5 mg inhalation Q6H 04/01/23 03/24/24 (0.083 %) solution for nebulization omeprazole 40 mg capsule,delayed 40 mg PO DAILY 04/08/23 03/24/24 release nitroglycerin 0.4 mg sublingual 0.4 mg sublingual Q5MINP PRN chest 07/13/23 03/24/24 tablet pain promethazine 25 mg tablet 25 mg PO TID PRN Nausea And 03/16/24 03/24/24 Vomiting montelukast 10 mg tablet 10 mg PO HS 03/17/24 03/24/24 rivaroxaban 20 mg tablet 20 mg PO HS 03/17/24 03/24/24 metoprolol succinate 25 mg 25 mg PO DAILY 03/18/24 03/24/24 tablet,extended release 24 hr metoprolol succinate 50 mg mg PO 05/27/24 05/27/24 tablet,extended release 24 hr penicillin V potassium 500 mg mg PO DAILY 05/27/24 05/27/24 tablet Previous Rx's ?Medication ?Instructions ?Recorded losartan 50 mg tablet 50 mg PO DAILY #90 tabs 11/06/23 metformin 1,000 mg tablet 1,000 mg PO BID #180 tabs 01/09/24 gabapentin 600 mg tablet 600 mg PO BID #60 tabs 03/22/24 ropinirole 0.25 mg tablet 0.25 mg PO HS #30 tabs 03/22/24 atorvastatin 40 mg tablet 40 mg PO HS #90 tabs 04/08/24 levothyroxine 100 mcg tablet 100 mcg PO DAILY #90 tabs 04/08/24 conjugated estrogens 0.3 mg tablet 0.3 mg PO DAILY #30 tabs 05/24/24 triamcinolone acetonide 0.1 % 1 applic topical QID #30 grams 05/29/24 topical ointment trazodone 100 mg tablet See Rx Instructions .Route 06/04/24 .COMPLEX #90 tabs albuterol sulfate 90 mcg/actuation 2 inh inhalation Q4HP PRN 06/14/24 aerosol inhaler Shortness Of Breath Or Wheezing #6.7 grams potassium chloride 10 mEq 10 meq PO DAILY #90 tabs 06/14/24 tablet,extended release gabapentin 600 mg tablet 600 mg PO BID #60 tabs 06/16/24 duloxetine 60 mg capsule,delayed 60 mg PO BID 90 days #180 caps 06/17/24 release cephalexin 500 mg capsule 500 mg PO BID #14 caps 06/22/24 nystatin 100,000 unit/mL oral 4 ml PO QID 10 days #160 mL 06/22/24 suspension ropinirole 0.25 mg tablet See Rx Instructions .Route 07/05/24 .COMPLEX #30 tabs permethrin 1 % topical liquid 60 ml topical ONCE lice #118 mL 07/17/24 (Lice Treatment (permethrin)) alprazolam 1 mg tablet 1 mg PO TID PRN Anxiety #90 tabs 07/21/24 furosemide 20 mg tablet 20 mg PO DAILY #30 tabs 08/03/24 cephalexin 500 mg capsule 500 mg PO Q8H 10 days #30 caps 08/10/24 ticagrelor 90 mg tablet (Brilinta) See Rx Instructions .Route 08/11/24 .COMPLEX #180 tabs oxycodone 5 mg tablet 5 mg PO Q8H PRN pain #12 tabs 08/13/24 quetiapine 50 mg tablet See Rx Instructions .Route 08/17/24 .COMPLEX #30 tabs Allergies Allergy/AdvReac Type Severity Reaction Status Date / Time codeine [CODEINE] Allergy Intermediate N/V Verified 05/27/24 15:38 ketorolac [KETOROLAC] Allergy Intermediate Hives Verified 05/27/24 15:38 meperidine [MEPERIDINE] Allergy Intermediate Hives Verified 05/27/24 15:38 tramadol [TRAMADOL] Allergy Intermediate Hives Verified 05/27/24 15:38 verapamil Allergy Mild Unknown Verified 05/27/24 15:38 allergy reaction ciprofloxacin AdvReac Severe Interacts Verified 05/27/24 15:38 with cymbalta [facility] Disclaimer: The information contained in this section may have been updated after the patient was seen, as this information can be updated by other users. Medical History (Updated 08/21/24 @ 22:09 by Magdiel Nicholas MD) Coronary artery disease COPD (chronic obstructive pulmonary disease) HLD (hyperlipidemia) Diabetes Anxiety and depression TIA (transient ischemic attack) History of stroke History of multiple cerebrovascular accidents (CVAs) History of class III angina pectoris Typical angina Dyspnea History of pancreatitis History of CVA (cerebrovascular accident) Surgical History History of biliary duct stent placement History of hysterectomy History of cholecystectomy History of coronary artery stent placement Family History Other Family history of cancer Family history of diabetes mellitus Social History Smoking Status: Former smoker tobacco type: cigarettes packs per day: 1 second hand exposure: No alcohol intake: never counseling provided: none substance use type: marijuana and crack/cocaine current occupational status: retired and other Travel in the last 8 weeks: None household members: spouse housing: house number of children: 2 current occupational exposures/hazards: No caffeine: Yes ROS Obtained: Yes All systems reviewed & no additional complaints except as documented Physical Exam General General appearance: alert and in no apparent distress Head Head exam: atraumatic and normocephalic Eye Eye exam: Present normal appearance, PERRL and EOMI ENT ENT exam: Present normal exam, normal oropharynx, mucous membranes moist and normal external ear exam Neck Neck exam: Present normal inspection, full ROM and trachea midline; Absent tenderness Chest Chest inspection: Present normal inspection and symmetric chest wall rise; Absent tenderness Respiratory Respiratory exam: Present normal lung sounds bilaterally; Absent respiratory distress, wheezes, stridor or accessory muscle use Cardiovascular Cardiovascular exam: Present regular rate and normal rhythm Abdominal Exam Abdominal exam: Present soft; Absent distention, tenderness or guarding Extremities Exam Extremities exam: Present normal inspection, full ROM and normal capillary refill; Absent tenderness or edema Back Exam Back exam: Present normal inspection and full ROM; Absent tenderness Neurological Exam Neurological exam: Present alert, oriented X3, CN II-XII intact and normal gait; Absent motor sensory deficit Psychiatric Psychiatric exam: Present normal affect and normal mood Skin Skin exam: Present warm and dry Medical Decision Making Medical Records Medical records reviewed: Yes I reviewed the patient's medical records. Screening: Per USPSTF and CDC recommendations, given the prevalence of disease in our region, it is our hospital?s policy to screen for HIV and viral Hepatitis for all patients aged 18 and over and those with ongoing risk factors. Delroy Inquiry Pt receiving controlled substance: No Vital Signs: 08/21/24 16:59 08/21/24 17:30 08/21/24 18:00 Temperature 98.1 F Temperature Source Oral Pulse Rate 97 H 109 H Pulse Rate [Right] 118 H Respiratory Rate 25 H 22 Blood Pressure 110/90 116/86 Blood Pressure [Right Arm] 107/85 L Blood Pressure Mean 94 89 Blood Pressure Mean [Right Arm] 92 Blood Pressure Source Blood Pressure Source [Right Arm] Automatic Cuff Blood Pressure Position 02 Sat by Pulse Oximetry 98 96 95 Oxygen Delivery Method Nasal Cannula Room Air Room Air Oxygen Flow Rate (LPM) 3 08/21/24 18:30 08/21/24 19:01 08/21/24 19:30 Temperature Temperature Source Pulse Rate 121 H 118 H 118 H Pulse Rate [Right] Respiratory Rate 17 Blood Pressure 111/82 108/77 L 106/85 L Blood Pressure [Right Arm] Blood Pressure Mean 90 Blood Pressure Mean [Right Arm] Blood Pressure Source Blood Pressure Source [Right Arm] Blood Pressure Position 02 Sat by Pulse Oximetry 93 L 95 94 L Oxygen Delivery Method Room Air Oxygen Flow Rate (LPM) 08/21/24 19:45 08/21/24 20:01 08/21/24 20:15 Temperature Temperature Source Pulse Rate 102 H 110 H 100 H Pulse Rate [Right] Respiratory Rate 14 14 Blood Pressure 101/79 L 113/85 113/87 Blood Pressure [Right Arm] Blood Pressure Mean 94 Blood Pressure Mean [Right Arm] Blood Pressure Source Blood Pressure Source [Right Arm] Blood Pressure Position 02 Sat by Pulse Oximetry 94 L 95 96 Oxygen Delivery Method Oxygen Flow Rate (LPM) 08/21/24 20:30 08/21/24 20:45 08/21/24 21:00 Temperature Temperature Source Pulse Rate 108 H 115 H 97 H Pulse Rate [Right] Respiratory Rate Blood Pressure 107/81 L 109/75 L 101/82 L Blood Pressure [Right Arm] Blood Pressure Mean 87 89 86 Blood Pressure Mean [Right Arm] Blood Pressure Source Blood Pressure Source [Right Arm] Blood Pressure Position 02 Sat by Pulse Oximetry 95 96 96 Oxygen Delivery Method Nasal Cannula Oxygen Flow Rate (LPM) 3 08/21/24 21:15 08/21/24 21:30 08/21/24 21:45 Temperature Temperature Source Pulse Rate 102 H 113 H 114 H Pulse Rate [Right] Respiratory Rate Blood Pressure 112/84 111/86 120/75 Blood Pressure [Right Arm] Blood Pressure Mean 92 91 Blood Pressure Mean [Right Arm] Blood Pressure Source Blood Pressure Source [Right Arm] Blood Pressure Position 02 Sat by Pulse Oximetry 96 96 97 Oxygen Delivery Method Nasal Cannula Oxygen Flow Rate (LPM) 3 08/21/24 21:46 08/21/24 22:01 Temperature 97.9 F Temperature Source Oral Pulse Rate 113 H 118 H Pulse Rate [Right] Respiratory Rate 19 Blood Pressure 111/86 106/79 L Blood Pressure [Right Arm] Blood Pressure Mean Blood Pressure Mean [Right Arm] Blood Pressure Source Automatic Cuff Blood Pressure Source [Right Arm] Blood Pressure Position Sitting 02 Sat by Pulse Oximetry 94 L Oxygen Delivery Method Nasal Cannula Oxygen Flow Rate (LPM) 3 Lab Data Lab results reviewed: Yes I reviewed the patient's lab results. Lab Results 08/21/24 17:04: VBG pH 7.39, VBG pCO2 43.5, VBG pO2 23.1 L, VBG HCO3 25.7, VBG Total CO2 27.0, VBG O2 Saturation 35.1 L, VBG Base Excess 0.7, VBG Lactic Acid 2.8 H 08/21/24 17:46: WBC 11.9 H, RBC 4.68, Hgb 10.1 L, Hct 36.1 L, MCV 77.1 L, MCH 21.7 L, MCHC 28.1 L, RDW 18.2 H, Plt Count 558 H, MPV 7.5, Neut % (Auto) 69.8, Lymph % (Auto) 21.5, Elliott % (Auto) 6.2, Eos % (Auto) 2.1, Baso % (Auto) 0.5, Neut # (Auto) 8.3 H, Lymph # (Auto) 2.6, Elliott # (Auto) 0.7, Eos # (Auto) 0.3, Baso # (Auto) 0.1, PT 11.9, INR 1.07, APTT 29.1, D-Dimer 0.34, Sodium 133 L, Potassium 3.8, Chloride 99, Carbon Dioxide 25, Anion Gap 12.8, BUN 23 H, Creatinine 1.20 H, Estimated Creat Clear 86, Estimated GFR 45 L, Est GFR ( Amer) 55 L, Glucose 136 H, Calcium 9.5, Total Bilirubin 1.1, AST 29, ALT 21, Alkaline Phosphatase 127 H, Troponin I < 0.01, NT-Pro-B Natriuret Pep 640 H, Total Protein 7.9, Albumin 4.5, Globulin 3.4 H, Albumin/Globulin Ratio 1.3, Lipase 95, TSH 1.30, Thyroxine (T4) 10.1, HIV 1&2 Antibody Rapid Nonreactive 08/21/24 20:58: Troponin I < 0.01 08/21/24 17:46 08/21/24 17:46 Orders (Tests/Meds): ED MEDICATIONS Generic Name Dose Route Start Last Admin Trade Name Freq PRN Reason Stop Dose Admin Acetaminophen 1,000 mg 08/21/24 21:39 Acetaminophen 325mg Tab PO 09/20/24 21:38 Q6HP PRN Fever or Mild Pain (1-3) Alprazolam 0.25 mg 08/21/24 21:39 Alprazolam 0.25mg Tablet PO 09/20/24 21:38 TIDP PRN Anxiety Atorvastatin Calcium 40 mg 08/22/24 21:00 Atorvastatin 40mg Tablet PO 09/21/24 20:59 HS [facility] Diltiazem HCl 120 mg 08/22/24 09:00 Diltiazem Er 120mg Capsule PO 09/21/24 08:59 DAILY CRISTOPHER Sodium Chloride 1,000 mls @ 100 mls/hr 08/21/24 21:45 08/21/24 22:06 Sod Chlor 0.9% 1000ml Bag IV 09/20/24 21:44 100 mls/hr .Q10H CRISTOPHER Administration Insulin Human Lispro 0 unit 08/22/24 06:00 Humalog 100 Units/Ml 10ml Vial (Ssi) SQ 09/21/24 05:59 ACHS CRISTOPHER Protocol Isosorbide Mononitrate 30 mg 08/22/24 09:00 Isosorbide Elliott 30mg Tab.Er.24h PO 09/21/24 08:59 DAILY CRISTOPHER Levothyroxine Sodium 100 mcg 08/22/24 07:00 Levothyroxine 100mcg (0.1mg) Tab PO 09/21/24 06:59 DAILYDM [facility] Metoprolol Succinate 50 mg 08/22/24 09:00 Metoprolol Succinate Xl 50mg Tablet PO 09/21/24 08:59 DAILY CRISTOPHER Ondansetron HCl 4 mg 08/21/24 21:29 Ondansetron 4mg/2ml Vial IV 09/20/24 21:28 Q8HP PRN Nausea Oxycodone HCl 5 mg 08/21/24 21:45 Oxycodone 5mg Immediate Release Tablet PO 09/20/24 21:44 Q8HP PRN Severe Pain (7-10) Pantoprazole Sodium 40 mg 08/22/24 21:00 Pantoprazole 40mg Tablet PO 09/21/24 20:59 HS [facility] Ranolazine 500 mg 08/21/24 22:00 08/21/24 22:06 Ranolazine 500mg Er Tablet PO 09/20/24 21:59 500 mg BID CRISTOPHER Administration Rivaroxaban 20 mg 08/22/24 17:30 Rivaroxaban 10mg Tablet PO 09/21/24 17:29 QPMWITHMEAL CRISTOPHER Sodium Chloride 10 ml 08/21/24 21:29 Sodium Chloride 0.9% 10ml Flush Syringe IV 09/20/24 21:28 NEEDED PRN Maintain IV Site Ticagrelor 90 mg 08/21/24 22:00 08/21/24 22:12 Ticagrelor 90mg Tablet PO 09/20/24 21:59 90 mg BID CRISTOPHER Administration Discontinued Medications Generic Name Dose Route Start Last Admin Trade Name Freq PRN Reason Stop Dose Admin Albuterol/Ipratropium 3 ml 08/21/24 17:35 08/21/24 17:41 Ipratropium/Albuterol 3 Ml Neb IH 08/21/24 17:36 3 ml ONCE ONE Administration Aspirin 324 mg 08/21/24 17:24 08/21/24 17:28 Aspirin 81mg Chewable Tablet PO 08/21/24 17:25 Not Given ONCE ONE Belladonna Alkaloids 60 ml 08/21/24 17:24 08/21/24 17:28 Belladonna Alkaloids 60 Ml Ml PO 08/21/24 17:25 60 ml ONCE ONE Administration Metoprolol Tartrate 5 mg 08/21/24 19:20 08/21/24 19:42 Metoprolol Tartrate 5mg/5ml Vial IV 5 mg Q5MINP PRN Administration heart rate high Metoprolol Tartrate 50 mg 08/21/24 19:20 08/21/24 19:57 Metoprolol Tartrate 50mg Tablet PO 08/21/24 19:21 Not Given ONCE ONE Metoprolol Tartrate 50 mg 08/21/24 20:06 08/21/24 20:10 Metoprolol Tartrate 50mg Tablet PO 08/21/24 20:07 50 mg ONCE ONE Administration Morphine Sulfate 2 mg 08/21/24 17:24 08/21/24 17:28 Morphine 2mg/Ml Syringe IV 08/21/24 17:25 2 mg ONCE ONE Administration Morphine Sulfate 2 mg 08/21/24 19:20 08/21/24 19:27 Morphine 2mg/Ml Syringe IV 08/21/24 19:21 2 mg ONCE ONE Administration Morphine Sulfate 4 mg 08/21/24 21:23 08/21/24 21:27 Morphine 4mg/Ml Syringe IV 08/21/24 21:24 4 mg ONCE ONE Administration Ondansetron HCl 4 mg 08/21/24 17:24 08/21/24 17:28 Ondansetron 4mg/2ml Vial IV 08/21/24 17:25 4 mg ONCE ONE Administration ORDERS Category Date Time Status CXR --portable [XR chest portable] Stat Exams 08/21/24 17:04 Completed BNP [NT Pro Brain Natriuretic Pep.] Stat Lab 08/21/24 17:46 Completed Complete Blood Count Auto Diff Stat Lab 08/21/24 17:46 Completed Comprehensive Metabolic Panel Stat Lab 08/21/24 17:46 Completed D-Dimer Stat Lab 08/21/24 17:46 Completed HIV (1&2) Antibody Rapid Stat Lab 08/21/24 17:46 Completed Hep C Ab with Reflex to RNA Stat Lab 08/21/24 17:46 Received Lipase Stat Lab 08/21/24 17:46 Completed PT INR [Prothrombin Time INR] Stat Lab 08/21/24 17:46 Completed PTT [Activated Partial Thrombo Time] Stat Lab 08/21/24 17:46 Completed T4 (Thyroxine) Stat Lab 08/21/24 17:46 Completed TSH [Thyroid Stimulating Hormone] Stat Lab 08/21/24 17:46 Completed Trop I [Troponin I] Stat Lab 08/21/24 17:46 Completed Troponin I Q3H Lab 08/21/24 20:58 Completed Troponin I Q3H Lab 08/21/24 23:15 Ordered VBG [Venous Blood Gas] Stat RT 08/21/24 17:04 Completed ECG Data Tracing #1: I reviewed this ECG and interpreted as documented below: Atrial fibrillation with a ventricular rate of 114 bpm. No acute STEMI. No significant changes from prior EKG ECG initial impression date: 08/21/24 ECG initial impression time: 17:07 Tracing #2: I reviewed this ECG and interpreted as documented below: Atrial fibrillation with rapid ventricular response with a ventricular rate of [address] changes concerning for ischemia. No significant changes from prior EKG aside from increased rate ECG initial impression date: 08/21/24 ECG initial impression time: 19:29 HEART Score History (anamnesis): Moderately suspicious ECG: Non-specific disturbance Age: 45-65 years Risk factors: Atherosclerosis history Troponin: </= normal limit HEART Score: 5 Medical Decision Narrative: In summary, this patient is a 63-year-old female presenting to the Emergency Department for evaluation of chest pressure. Differential diagnoses considered include but are not limited to ACS, dysrhythmia, CHF exacerbation, pneumonia, respiratory failure, PE, pneumonia, COPD exacerbation. Ruling out the most morbid conditions drove assessment. It should be noted patient's history includes COPD, atrial fibrillation, CAD status post stenting which may or may not be at goal therapy. This complicates all aspects of care by increasing patient's risk for morbidity and may be exacerbating the patient's symptoms. I reviewed patient's past medical records and noted previous evaluations in the past in the ED for various complaints, including previous evaluation back in May related to CHF. On exam, the patient is anxious appearing and mildly tachypneic and tachycardic. She is hemodynamically stable otherwise. Initial EKG does not show STEMI. She does have atrial fibrillation with RVR with a ventricular to 114 bpm but no acute STEMI. Workup included CBC, CMP, troponin, BNP, TSH, T4, D-dimer, coags, VBG, chest x-ray, EKG. She was given a DuoNeb as well as oral aspirin, IV morphine and Zofran, and GI cocktail to assess for symptomatic improvement. I independently interpreted x-ray prior to the radiologist read and noted no acute focal consolidation. Please see their read for final interpretation. Labs were obtained that demonstrated negative D-dimer, negative troponin, reassuring VBG, BNP that is improved from prior. She does have very mild leukocytosis and mild anemia which appear stable. Her kidney function is around her baseline. Lipase is normal. On reassessment, patient had good improvement after administration of interventions above. She states she is feeling a lot better. Her heart rate was in the 90s to low 100s. At 1845, patient was placed in ED observation status pending second troponin and continued reassessment to determine whether or not the patient would be appropriate for discharge versus admission. The patient was provided serial reevaluations and cardiac monitoring while awaiting ultimate disposition. At 1920, the patient called me into the room because she states she was feeling much worse all of a sudden again. She stated that her chest pain had come back and was more severe, and her heart rate is now in the 120s to 130s. She remains hemodynamically stable. I did administer another dose of IV morphine. She had already taken her metoprolol today for her rate control for A-fib, so I decided to go ahead and give her 5 mg IV every 5 minute as needed x 3 to see if we could achieve rate control. She is anticoagulated with Xarelto. Lungs are clear on this assessment and repeat EKG does not show any acute ST changes. Patient continued to have significant chest pain despite multiple doses of IV morphine. She states that it started to go down her left arm. I did, however, get improvement in her heart rate from the 120s to 130s to the low 100s after administration of IV and oral metoprolol. She tolerated this very well with no drop in her blood pressure. second troponin resulted and was also negative, however given her high heart score and continued chest pain, I feel that she would benefit from admission for continued monitoring. I had an interactive discussion with the hospitalist who admitted the patient for further evaluation and management. Critical Care Critical Care Time Critical Care Time: Yes Attestation: On 08/21/24, the high probability of a clinically significant, sudden or life threatening deterioration of the following system(s) required my full and direct attention, intervention and personal management. The time I documented below is in addition to time spent performing reported procedures but includes the following listed in this critical care notation. Total Time Total Critical Care Time: 45
[2024-08-21] MEDS: MORPHINE 2MG/ML SYRINGE 2 MG IV ×2 (17:28→19:27)
[2024-08-21] MEDS: BELLADONNA ALKALOIDS 60 ML ML PO (17:28)
[2024-08-21] MEDS: ONDANSETRON 4MG/2ML VIAL 4 MG IV (17:28)
[2024-08-21] MEDS: IPRATROPIUM/ALBUTEROL 3 ML NEB IH (17:41)
[2024-08-21 17:49] LABS: VBG Base Excess 0.7 mmol/L (-2.4-2.3); VBG HCO3 25.7 mmol/L (23-30); VBG Oxygen Saturation 35.1 % (50-70); VBG PCO2 43.5 mmol/L (35-51); VBG PH 7.39 mmol/L (7.31-7.41); VBG PO2 23.1 mmol/L (28-40)
[2024-08-21 17:51] LABS: Lactate Venous 2.8 mmol/L (0.4-2.0)
[2024-08-21 17:54] LABS: Basophils # 0.1 K/mm3 (0-0.2); Basophils % 0.5 % (0.1-2.0); Eosinophils # 0.3 K/mm3 (0.0-0.4); Eosinophils % 2.1 % (0.1-12.0); Hematocrit 36.1 % (37.0-47.0); Hemoglobin 10.1 g/dL (12.2-16.2); Lymphocytes # 2.6 K/mm3 (0.7-4.5); Lymphocytes % 21.5 % (10-50); Mean Corpuscular HGB Conc 28.1 g/dL (31.8-35.4); Mean Corpuscular Hemoglobin 21.7 pg (27.0-31.2); Mean Corpuscular Volume 77.1 fl (81-99); Mean Platelet Volume 7.5 fl (7.4-10.4); Monocytes # 0.7 K/mm3 (0.1-1.0); Monocytes % 6.2 % (1.7-9.3); Neutrophils # 8.3 K/mm3 (1.8-7.8); Neutrophils % 69.8 % (37.0-80.0); Platelet Count 558 K/mm3 (142-424); Red Blood Count 4.68 M/mm3 (4.20-5.40); Red Cell Distribution Width 18.2 % (11.5-17.5); White Blood Count 11.9 K/mm3 (4.8-10.8)
[2024-08-21 18:03] LABS: Activated Partial Thrombo Time 29.1 seconds (22.8-30.6); INR 1.07 (0.9-1.1); Prothrombin Time 11.9 seconds (10.1-12.5)
[2024-08-21 18:10] LABS: Alanine Aminotransferase 21 U/L (12-78); Albumin Level 4.5 g/dl (3.5-5.0); Albumin/Globulin Ratio 1.3 (1.1-1.8); Alkaline Phosphatase 127 U/L (38-126); Anion Gap 12.8 mEq/L (5-15); Aspartate Amino Transferase 29 U/L (14-36); Bilirubin,Total 1.1 mg/dl (0.2-1.3); Blood Urea Nitrogen 23 mg/dl (7-17); Calcium 9.5 mg/dl (8.4-10.2); Carbon Dioxide 25 mmol/L (22.0-30.0); Chloride 99 mmol/L (98-107); Creatinine Clearance Estimated 86 mL/min (50-200); Estimated Glomerular Filt Rate 45 ml/min (>60); GFR (African American) 55 ML/MIN (>60); Globulin 3.4 g/dL (1.3-3.2); Glucose 136 mg/dl (74-100); Lipase 95 U/L (23-300); Potassium 3.8 mmoL/L (3.5-5.1); Sodium 133 mmol/L (136-145); Total Protein,Serum 7.9 g/dl (6.3-8.2)
[2024-08-21 18:16] LABS: D-Dimer 0.34 ug/mL (0.0-0.5)
[2024-08-21 18:19] LABS: NT Pro Brain Natriuretic Pep. 640 pg/mL (0-125)
[2024-08-21 18:24] LABS: T4 (Thyroxine) 10.1 ug/dl (5.53-11.0)
[2024-08-21 18:32] LABS: Troponin I < 0.01 ng/ml (0.00-0.034)
[2024-08-21 18:56] LABS: HIV (1&2) Antibody Rapid NONREACTIVE (NONREACTIVE)
--- NOTE | 2024-08-21 19:27 | ECG_ITS ---
APPROVED REPORT Exam: Resting ECG HR:125 bpm ECG Measurements Heart Rate 125 AXES QRSd 92 QRS 46 QT 341 T 79 QTc 415 Conclusion ATRIAL FIBRILLATION WITH RAPID VENTRICULAR RESPONSE NONSPECIFIC ST & T-WAVE ABNORMALITY ABNORMAL RHYTHM ECG Electronically signed by : JOSE KUHN, 08/21/2024 23:58:21
[2024-08-21] MEDS: METOPROLOL TARTRATE 5MG/5ML VIAL 5 MG IV ×3 (19:32→19:42)
--- NOTE | 2024-08-21 19:51 | PC.NURSE ---
Updated provider on heart rate after 3 total doses of IV metoprolol. Provider reports we will reassess heart rate and then determine next treatment course. Patient requests Pepsi at this time. Provider approved pepsi at this time. Provided patient with pepsi. Patient reports no further needs at this time.
[2024-08-21] MEDS: METOPROLOL TARTRATE 50MG TABLET 50 MG PO (20:10)
--- NOTE | 2024-08-21 21:01 | PC.NURSE ---
Collected and sent delta troponin, patient reports that pain is returning. Notified provider.
[2024-08-21 21:25] LABS: Troponin I < 0.01 ng/ml (0.00-0.034)
[2024-08-21] MEDS: MORPHINE 4MG/ML SYRINGE 4 MG IV (21:27)
--- NOTE | 2024-08-21 21:31 | PC.NURSE ---
called powerhouse helper for bed assignment, per er md patient has been accepted by hospital medicine for chest pain and afib with rvr
--- NOTE | 2024-08-21 21:39 | CT_ITS ---
PROCEDURE INFORMATION: Exam: CT Chest Without Contrast; Diagnostic Exam date and time: 08/22/2024 6:25 PM Age: 63 years old Clinical indication: Other: Pulmonary nodules TECHNIQUE: Imaging protocol: Diagnostic computed tomography of the chest without contrast. Radiation optimization: All CT scans at this facility use at least one of these dose optimization techniques: automated exposure control; mA and/or kV adjustment per patient size (includes targeted exams where dose is matched to clinical indication); or iterative reconstruction. COMPARISON: 1. CT CHEST WO CON 07/13/2023 6:42 PM 2. CR XR CHEST PORTABLE 08/21/2024 5:04 PM 3. CR XR CHEST PORTABLE 06/28/2024 11:23 PM FINDINGS: Tubes, catheters and devices: There is a right chest port in place catheter tip projects over the SVC. Lungs: There are scattered areas of emphysema throughout the lungs. Scattered areas of bronchial wall thickening which are likely chronic inflammatory. A few areas of subpleural reticulation are noted, nonspecific. There are multiple subpleural pulmonary nodules such as a 6 mm right upper lobe nodule (image 28 series 4), stable from prior. There is a 4 mm subpleural left upper lobe pulmonary nodule (image 26 series 4), stable from prior. 4 mm right lower lobe pulmonary nodule is stable. 6 mm right middle lobe nodule is stable. Pleural spaces: Pleural surfaces are smooth, and there are no pleural effusions, pneumothoraces, or pleural plaques noted. Heart: The heart size is within normal limits, and the pericardium appears clear with no signs of pericardial effusion or thickening. Coronary arteries: There is moderate coronary atherosclerotic disease/calcification although evaluation is limited secondary to the non gated nature of the study. Mediastinal space: The mediastinum appears unremarkable with no evidence of masses, lymphadenopathy, or mediastinal widening. Hilar structures including the major bronchi and vessels appear intact. Lymph nodes: There are calcified mediastinal lymph nodes likely reflecting prior granulomatous disease. There are calcified mediastinal lymph nodes likely reflecting prior granulomatous disease. Vasculature: There is atherosclerotic disease of the visualized aorta and its major branch vessels. Spleen: There are multiple calcifications in the spleen most likely reflects small granulomas. Bones/joints: There is partially visualized cervical spine surgical hardware. There are old right posterolateral rib fractures. There is diffuse degenerative disease of the visualized osseous structures. Soft tissues: Unremarkable. IMPRESSION: Multiple bilateral pulmonary nodules that appear stable from examination dated July 13, 2023. No new or enlarging nodules seen. COMMENTS: The presence of pulmonary emphysema on CT is an independent risk factor for lung cancer. In the absence of a history or active diagnosis of lung cancer, it is recommended that this patient with emphysema be evaluated for enrollment in a low dose CT lung cancer screening program.
--- NOTE | 2024-08-21 21:45 | PC.NURSE ---
Nurse to nurse report to Nicholas Renteria RN
[2024-08-21 21:51] LABS: Reflex Lactic Add Lactic Reflex
--- NOTE | 2024-08-21 21:52 | P.HP_ITS ---
History of Present Illness *Admission Date: 08/21/24 *Reason for visit:: Chest pain *History of present illness: This is a 63-year-old female that presents to [facility] emergency department with concerns of chest pain that started this morning. She describes pressure to her central chest that radiates out to her arms. It wraps underneath her left breast into her back. She has identified palpitations and some shortness of air. She denies exertional dyspnea, cough, hemoptysis, confusion, nausea/vomiting. She reports a past medical history significant for coronary artery disease, COPD, chronic atrial fibrillation, tobacco dependence in remission and hypothyroidism. Her family doctor has made attempts to wean her chronically prescribed benzodiazepine and opioid therapy. In the ED her telemetry identified atrial fibrillation with RVR. Her rate became controlled with beta-clifton therapy. Her troponin trend is negative x 2. She received 8 mg of IV morphine over a 4-hour period of time to help control her chest pain. Her chest x-ray identified no acute disease. [facility] Medical History (Updated 08/21/24 @ 22:09 by Magdiel Nicholas MD) Coronary artery disease COPD (chronic obstructive pulmonary disease) HLD (hyperlipidemia) Diabetes Anxiety and depression TIA (transient ischemic attack) History of stroke History of multiple cerebrovascular accidents (CVAs) History of class III angina pectoris Typical angina Dyspnea History of pancreatitis History of CVA (cerebrovascular accident) Surgical History History of biliary duct stent placement History of hysterectomy History of cholecystectomy History of coronary artery stent placement Family History Other Family history of cancer Family history of diabetes mellitus Social History Smoking Status: Current every day smoker tobacco type: cigarettes packs per day: 1 second hand exposure: No alcohol intake: never counseling provided: none substance use type: marijuana and crack/cocaine current occupational status: disabled and other Travel in the last 8 weeks: None household members: spouse housing: house number of children: 2 current occupational exposures/hazards: No caffeine: Yes Review of Systems Review of Systems Review of systems:: pertinent systems reviewed and negative unless documented below Meds Home Medications and Allergies Home Medications ?Medication ?Instructions ?Recorded ?Confirmed ?Type isosorbide mononitrate 30 mg 30 mg PO DAILY 10/24/21 03/24/24 History tablet,extended release 24 hr albuterol sulfate 2.5 mg/3 mL 2.5 mg inhalation Q6H 04/01/23 03/24/24 History (0.083 %) solution for nebulization omeprazole 40 mg capsule,delayed 40 mg PO DAILY 04/08/23 03/24/24 History release nitroglycerin 0.4 mg sublingual 0.4 mg sublingual Q5MINP PRN chest 07/13/23 03/24/24 History tablet pain losartan 50 mg tablet 50 mg PO DAILY #90 tabs 11/06/23 03/24/24 Rx metformin 1,000 mg tablet 1,000 mg PO BID #180 tabs 01/09/24 03/24/24 Rx promethazine 25 mg tablet 25 mg PO TID PRN Nausea And 03/16/24 03/24/24 History Vomiting montelukast 10 mg tablet 10 mg PO HS 03/17/24 03/24/24 History rivaroxaban 20 mg tablet 20 mg PO HS 03/17/24 03/24/24 History metoprolol succinate 25 mg 25 mg PO DAILY 03/18/24 03/24/24 History tablet,extended release 24 hr ropinirole 0.25 mg tablet 0.25 mg PO HS #30 tabs 03/22/24 03/24/24 Rx atorvastatin 40 mg tablet 40 mg PO HS #90 tabs 04/08/24 Rx levothyroxine 100 mcg tablet 100 mcg PO DAILY #90 tabs 04/08/24 Rx conjugated estrogens 0.3 mg tablet 0.3 mg PO DAILY #30 tabs 05/24/24 Rx triamcinolone acetonide 0.1 % 1 applic topical QID #30 grams 05/29/24 Rx topical ointment trazodone 100 mg tablet See Rx Instructions .Route 06/04/24 Rx .COMPLEX #90 tabs albuterol sulfate 90 mcg/actuation 2 inh inhalation Q4HP PRN 06/14/24 Rx aerosol inhaler Shortness Of Breath Or Wheezing #6.7 grams potassium chloride 10 mEq 10 meq PO DAILY #90 tabs 06/14/24 Rx tablet,extended release gabapentin 600 mg tablet 600 mg PO BID #60 tabs 06/16/24 Rx duloxetine 60 mg capsule,delayed 60 mg PO BID 90 days #180 caps 06/17/24 Rx release nystatin 100,000 unit/mL oral 4 ml PO QID 10 days #160 mL 06/22/24 Rx suspension alprazolam 1 mg tablet 1 mg PO TID PRN Anxiety #90 tabs 07/21/24 Rx furosemide 20 mg tablet 20 mg PO DAILY #30 tabs 08/03/24 Rx cephalexin 500 mg capsule 500 mg PO Q8H 10 days #30 caps 08/10/24 Rx ticagrelor 90 mg tablet (Brilinta) See Rx Instructions .Route 08/11/24 Rx .COMPLEX #180 tabs quetiapine 50 mg tablet See Rx Instructions .Route 08/17/24 Rx .COMPLEX #30 tabs New Prescriptions to Start Prescriptions: Allergies Allergy/AdvReac Type Severity Reaction Status Date / Time codeine [CODEINE] Allergy Intermediate N/V Verified 05/27/24 15:38 ketorolac [KETOROLAC] Allergy Intermediate Hives Verified 05/27/24 15:38 meperidine [MEPERIDINE] Allergy Intermediate Hives Verified 05/27/24 15:38 tramadol [TRAMADOL] Allergy Intermediate Hives Verified 05/27/24 15:38 verapamil Allergy Mild Unknown Verified 05/27/24 15:38 allergy reaction ciprofloxacin AdvReac Severe Interacts Verified 05/27/24 15:38 with cymbalta Exam Data for Last 24 hours Vital signs and Labs for Last 24 Hours: Temp Pulse Resp BP Pulse Ox O2 Del Method O2 Flow Rate 97.9 F 113 H 19 111/86 96 Nasal Cannula 3 08/21/24 21:46 08/21/24 21:46 08/21/24 21:46 08/21/24 21:46 08/21/24 21:30 08/21/24 21:46 08/21/24 21:46 Laboratory Results - last 24 hr 08/21/24 17:04: VBG pH 7.39, VBG pCO2 43.5, VBG pO2 23.1 L, VBG HCO3 25.7, VBG Total CO2 27.0, VBG O2 Saturation 35.1 L, VBG Base Excess 0.7, VBG Lactic Acid 2.8 H 08/21/24 17:46: WBC 11.9 H, RBC 4.68, Hgb 10.1 L, Hct 36.1 L, MCV 77.1 L, MCH 21.7 L, MCHC 28.1 L, RDW 18.2 H, Plt Count 558 H, MPV 7.5, Neut % (Auto) 69.8, Lymph % (Auto) 21.5, [place] % (Auto) 6.2, Eos % (Auto) 2.1, Baso % (Auto) 0.5, Neut # (Auto) 8.3 H, Lymph # (Auto) 2.6, [place] # (Auto) 0.7, Eos # (Auto) 0.3, Baso # (Auto) 0.1, PT 11.9, INR 1.07, APTT 29.1, D-Dimer 0.34, Sodium 133 L, Potassium 3.8, Chloride 99, Carbon Dioxide 25, Anion Gap 12.8, BUN 23 H, Creatinine 1.20 H, Estimated Creat Clear 86, Estimated GFR 45 L, Est GFR ( Amer) 55 L, Glucose 136 H, Calcium 9.5, Total Bilirubin 1.1, AST 29, ALT 21, Alkaline Phosphatase 127 H, Troponin I < 0.01, NT-Pro-B Natriuret Pep 640 H, Total Protein 7.9, Albumin 4.5, Globulin 3.4 H, Albumin/Globulin Ratio 1.3, Lipase 95, TSH 1.30, Thyroxine (T4) 10.1, HIV 1&2 Antibody Rapid Nonreactive 08/21/24 20:58: Troponin I < 0.01 I & O for Last 24 hours: Intake & Output 08/18/24 08/19/24 08/20/24 08/21/24 23:59 23:59 23:59 23:59 Weight 113.398 kg Constitutional Constitutional: no acute distress, morbidly obese, chronically ill appearing, disheveled and cooperative *Routine HEENT Exam Head: Present normocephalic and atraumatic Eye: Present EOMI and PERRL ENT: Present mucous membranes moist *Routine Neck Exam Neck: Present trachea midline; Absent JVD or lymphadenopathy *Routine Respiratory Exam Respiratory: Present rhonchi, normal respiratory effort and symmetric chest movement *Routine Cardiovascular Exam Cardiovascular: Present irregular rhythm *Routine Abdominal Exam Abdominal: Present soft and normoactive bowel sounds; Absent tenderness *Routine Rectal Exam Rectal:: deferred *Routine Genitalia Exam Genitalia:: deferred *Routine Extremities Exam Extremities: Present full ROM and pulses intact; Absent edema *Routine Skin Exam Skin: Present intact; Absent rash *Routine Neurological Exam Neurological: Present alert, oriented X3, moving all extremities, vision grossly intact, hearing grossly intact and normal speech; Absent sensory deficit or motor deficit Routine Psychiatric Exam Psychiatric: Present normal affect, normal thought process, cooperative, good insight and good judgment Assessment and Plan *Assessment and plan (1) Atrial fibrillation with RVR: Status: Acute Category: Medical Code(s): I48.91 - Unspecified atrial fibrillation (2) Coronary artery disease: Status: Chronic Qualifiers: Associated angina: without angina Coronary Disease-Associated Artery/Lesion type: [place] artery [place] vs. transplanted heart: [place]las heart Qualified Code(s): I25.10 - Atherosclerotic heart disease of [place] coronary artery without angina pectoris Category: Medical Code(s): I25.10 - Atherosclerotic heart disease of [place] coronary artery without angina pectoris (3) Unstable angina: Status: Resolved Category: Medical Code(s): I20.0 - Unstable angina (4) ALYSE (acute kidney injury): Status: Resolved Category: Medical Code(s): N17.9 - Acute kidney failure, unspecified (5) Diabetes mellitus: Status: Chronic Qualifiers: Diabetes mellitus complication status: without complication Diabetes mellitus residential insulin use: without residential use Diabetes mellitus type: type 2 Qualified Code(s): E11.9 - Type 2 diabetes mellitus without complications Category: Medical Code(s): E11.9 - Type 2 diabetes mellitus without complications (6) Pulmonary nodules: Status: Acute Category: Medical Code(s): R91.8 - Other nonspecific abnormal finding of lung field (7) Tobacco dependence in remission: Status: Acute Category: Medical Code(s): F17.201 - Nicotine dependence, unspecified, in remission (8) Hypothyroidism: Status: Acute Category: Medical Code(s): E03.9 - Hypothyroidism, unspecified Plan This is a 63-year-old female who presents to the ED with a past medical history of atrial fibrillation on chronic anticoagulation, coronary disease with previous cardiac catheterization and stents who reported chest pain. Problems addressed as follows: Atrial fibrillation with RVR Telemetry monitoring ED ECG with no acute ST-T changes QTc 414 MS and A-fib with RVR ED troponin negative x 2 Chest x-ray with no acute disease Echo (07/15/2023): EF 55% with RVSP 15 Beta-clifton therapy Calcium channel clifton therapy Factor Xa inhibitor therapy Trending electrolytes, magnesium Coronary artery disease s/p LHC with Stents Unstable Angina Telemetry monitoring Troponin trend negative ED ECG with no acute ST-T changes Chronic paroxysmal atrial fibrillation noted P2Y12 inhibitor therapy Beta-clifton therapy Statin therapy Long-acting nitrate therapy [place] therapy Follows with cardiology as outpatient Acute kidney injury Baseline creatinine 0.8 Gentle IV fluid resuscitation Trending electrolytes and creatinine Avoiding NSAIDs Pulmonary nodules COPD not in exacerbation Tobacco dependence in remission Pulse oximetry monitoring Oxygen therapy to maintain appropriate oxygen saturations Currently oxygenating appropriately on room air ED chest x-ray with no acute disease CT chest ordered Gerri/Clarissa inhalation therapy as needed Diabetes Routine blood sugar monitoring Sliding scale insulin therapy Consistent carbohydrate diet Hypothyroidism Levothyroxine replacement therapy Chronic opioid therapy Resume home opioid therapy BMI 40 Concerns for untreated FLACO/OHS Nutritional counseling Calorie appropriate diet Outpatient follow-up for sleep study The length of stay for this patient will be 2 midnights or greater due to above diagnoses.
[2024-08-21] MEDS: RANOLAZINE 500MG ER TABLET 500 MG PO (22:06)
[2024-08-21] MEDS: 0.9 % SODIUM CHLORIDE 1000ML 1,000 ML 100 ML IV (22:06)
[2024-08-21] MEDS: TICAGRELOR 90MG TABLET 90 MG PO (22:12)
[2024-08-21 22:50] LABS: Amphetamine/Metha Screen,Urine Negative ng/ml (<1000)
[2024-08-21 22:51] LABS: Barbiturates Screen,Urine Negative ng/ml (<200)
[2024-08-21 22:52] LABS: Benzodiazepines Screen,Urine Positive ng/ml (<200); Cannabinoid Screen,Urine Negative ng/ml (<50)
[2024-08-21 22:53] LABS: Cocaine Screen,Urine Positive ng/ml (<300); Methadone Screen,Urine Negative ng/ml (<300)
[2024-08-21 22:54] LABS: Phencyclidine Screen,Urine Negative ng/ml (<25)
[2024-08-21] MEDS: OXYCODONE 5MG IMMEDIATE RELEASE TABLET 5 MG PO (22:54)
[2024-08-21 22:55] LABS: Opiate Screen,Urine Positive ng/ml (<300)
--- NOTE | 2024-08-21 23:03 | PC.NURSE ---
patient has 11.5 tablets of xanax locked in med construction engineer the patient room 210. patient has reported several falls with bruising at home, bed alarm on for safety. right port accessed 08/21 in ED.
[2024-08-22] VITALS (8 sets, daily range): BP systolic 91–152; BP diastolic 50–73; PULSE 90–120; RESP 18–24; TEMP 36.4–37.1; O2SAT 91–97; BMI 30.9
[2024-08-22 00:12] LABS: Troponin I < 0.01 ng/ml (0.00-0.034)
[2024-08-22] MEDS: NITROGLYCERIN 0.4MG SL TABLET 0.4 MG SL (05:03)
[2024-08-22] MEDS: ONDANSETRON 4MG/2ML VIAL 4 MG IV (05:12)
[2024-08-22 05:15] LABS: POC Glucose,Bedside 132 (70-110)
--- NOTE | 2024-08-22 05:22 | PC.NURSE ---
Patient rang out around 0455 with chest pain. This RN went to the room, patient was dry crying with c/o chest pain. Contacted the hospitalist for Nitro SL (SEE MAR and VS) BP stable, administered x1 at 0503. Patient then stated the only thing that works for my pain is morphine and Dilaudid . Patient was educated that morphine is unable to be ordered at this time per MD. Patient denies anxiety meds, Tylenol, and 2nd dose of nitro stating I don't want that, none of it will help me . Patient remains on 3L NC and was educated to press the call light if she decides she wants any further medications in her MAR listed above. No changes on tele, remains in Afib with 90's HR.
[2024-08-22 06:16] LABS: Basophils # 0.1 K/mm3 (0-0.2); Basophils % 0.5 % (0.1-2.0); Eosinophils # 0.3 K/mm3 (0.0-0.4); Eosinophils % 2.7 % (0.1-12.0); Hematocrit 30.7 % (37.0-47.0); Lymphocytes # 3.6 K/mm3 (0.7-4.5); Lymphocytes % 32.1 % (10-50); Mean Corpuscular HGB Conc 26.6 g/dL (31.8-35.4); Mean Corpuscular Hemoglobin 20.8 pg (27.0-31.2); Mean Corpuscular Volume 77.9 fl (81-99); Mean Platelet Volume 7.8 fl (7.4-10.4); Monocytes % 8.7 % (1.7-9.3); Neutrophils # 6.3 K/mm3 (1.8-7.8); Platelet Count 474 K/mm3 (142-424); Red Blood Count 3.94 M/mm3 (4.20-5.40); Red Cell Distribution Width 18.1 % (11.5-17.5); White Blood Count 11.2 K/mm3 (4.8-10.8)
[2024-08-22 06:24] LABS: Anion Gap 8.3 mEq/L (5-15); Blood Urea Nitrogen 22 mg/dl (7-17); Calcium 8.2 mg/dl (8.4-10.2); Carbon Dioxide 28 mmol/L (22.0-30.0); Chloride 99 mmol/L (98-107); Creatinine Clearance Estimated 86 mL/min (50-200); Estimated Glomerular Filt Rate 45 ml/min (>60); GFR (African American) 55 ML/MIN (>60); Glucose 124 mg/dl (74-100); Magnesium 1.6 mg/dl (1.6-2.3); Potassium 3.3 mmoL/L (3.5-5.1); Sodium 132 mmol/L (136-145)
[2024-08-22 07:06] LABS: Hemoglobin 8.6 g/dL (12.2-16.2)
[2024-08-22 07:13] LABS: Vitamin B12 356 pg/mL (239-931)
[2024-08-22 08:06] LABS: Iron 51 ug/dL (37-170)
[2024-08-22 08:16] LABS: Total Iron Binding Capacity 522 ug/dL (265-497)
[2024-08-22] MEDS: TICAGRELOR 90MG TABLET 90 MG PO ×2 (08:46→21:27)
[2024-08-22] MEDS: LEVOTHYROXINE 100MCG (0.1MG) TAB 100 MCG PO (08:46)
[2024-08-22] MEDS: RANOLAZINE 500MG ER TABLET 500 MG PO (08:46)
[2024-08-22] MEDS: ISOSORBIDE MONO 30MG TAB.ER.24H 30 MG PO (08:46)
[2024-08-22] MEDS: OXYCODONE 5MG IMMEDIATE RELEASE TABLET 5 MG PO (08:53)
[2024-08-22] MEDS: 0.9 % SODIUM CHLORIDE 1000ML 1,000 ML 100 ML IV (08:53)
[2024-08-22] MEDS: METOPROLOL TARTRATE 50MG TABLET 50 MG PO (08:57)
--- NOTE | 2024-08-22 10:02 | HMH.PHAINT1 ---
Pharmacy Intervention Comments: MEDICATION RECONCILIATION COMPLETE USING EXTERNAL PHARMACY FILL HISTORY, GEOFFREY REPORT, AND MOST RECENT MD OFFICE VISIT NOTE.
[2024-08-22 10:56] LABS: POC Glucose,Bedside 128 (70-110)
[2024-08-22] MEDS: ALPRAZolam 1MG TABLET 1 MG PO (11:45)
[2024-08-22] MEDS: dilTIAZem HCL 180MG CAP.ER.24H 180 MG PO (13:43)
[2024-08-22] MEDS: METFORMIN 500MG TABLET 1000 MG PO (16:32)
[2024-08-22] MEDS: RIVAROXABAN 10MG TABLET 20 MG PO (16:33)
[2024-08-22 16:44] LABS: POC Glucose,Bedside 139 (70-110)
--- NOTE | 2024-08-22 18:10 | PC.NURSE ---
AOX4, TOLERATING 3LNC FOR O2 SUPPORT. MEDICATED WITH XANAX FOR ANXIETY ONCE THIS SHIFT WITH GOOD EFFECTIVENESS.
--- NOTE | 2024-08-22 18:18 | PC.NURSE ---
pt to rad by stretcher at this time
--- NOTE | 2024-08-22 18:27 | PC.NURSE ---
pt back from rad at this time
[2024-08-22] MEDS: MORPHINE 2MG/ML SYRINGE 4 MG IV (19:41)
[2024-08-22 20:52] LABS: POC Glucose,Bedside 116 (70-110)
[2024-08-22] MEDS: ATORVASTATIN 40MG TABLET 40 MG PO (21:26)
[2024-08-22] MEDS: DULOXETINE 30MG CAPSULE.DR 60 MG PO (21:26)
[2024-08-22] MEDS: GABAPENTIN 600MG TABLET 600 MG PO (21:27)
[2024-08-22] MEDS: TRAZODONE 50MG TABLET 100 MG PO (21:27)
[2024-08-22] MEDS: PANTOPRAZOLE 40MG TABLET 40 MG PO (21:27)
[2024-08-22] MEDS: QUETIAPINE 25MG TABLET 50 MG PO (21:27)
[2024-08-22] MEDS: ROPINIROLE HCL 0.25 MG TABLET PO (21:27)
[2024-08-22] MEDS: MONTELUKAST SODIUM 10MG TAB 10 MG PO (21:27)
--- NOTE | 2024-08-22 22:26 | P.PN_ITS ---
Subjective *Date: 08/22/24 *Time: 18:00 Interval history: Patient is sitting in bed comfortably this moring. However, became emotional and tearful when speaking of her son's passing 2 years ago. She states she becomes sometimes very depressed and millie by doing cocaine. Last used 2-3 days ago. Continues to have on and off chest pain, but mostly mild. More painful overnight. Denies SOB. Exam Data for Last 24 hours Vital signs and Labs for Last 24 Hours: Temp Pulse Resp BP Pulse Ox O2 Del Method O2 Flow Rate 97.8 F 104 H 20 115/58 L 97 Nasal Cannula 3 08/22/24 20:00 08/22/24 20:00 08/22/24 20:00 08/22/24 20:00 08/22/24 20:00 08/22/24 20:00 08/22/24 20:00 Laboratory Results - last 24 hr 08/21/24 22:30: Urine Opiates Screen Positive H, Urine Methadone Screen Negative, Ur Barbituates Screen Negative, Ur Phencyclidine Scrn Negative, Ur Amphetamines Screen Negative, U Benzodiazepines Scrn Positive H, Urine Cocaine Screen Positive H, U Marijuana (THC) Screen Negative 08/21/24 23:00: Lactate 2.0 08/21/24 23:25: Troponin I < 0.01 08/22/24 05:03: POC Glucose 132 H 08/22/24 06:00: WBC 11.2 H, RBC 3.94 L, Hgb 8.6 L D, Hct 30.7 L, MCV 77.9 L, MCH 20.8 L, MCHC 26.6 L, RDW 18.1 H, Plt Count 474 H, MPV 7.8, Neut % (Auto) 56.0, Lymph % (Auto) 32.1, [place] % (Auto) 8.7, Eos % (Auto) 2.7, Baso % (Auto) 0.5, Neut # (Auto) 6.3, Lymph # (Auto) 3.6, [place] # (Auto) 1.0, Eos # (Auto) 0.3, Baso # (Auto) 0.1, Sodium 132 L, Potassium 3.3 L, Chloride 99, Carbon Dioxide 28, Anion Gap 8.3, BUN 22 H, Creatinine 1.20 H, Estimated Creat Clear 86, Estimated GFR 45 L, Est GFR ( Amer) 55 L, Glucose 124 H, Calcium 8.2 L, Magnesium 1.6, Iron 51, TIBC 522 H, Iron Saturation 9.94128 L, Vitamin B12 356 08/22/24 10:48: POC Glucose 128 H 08/22/24 16:31: POC Glucose 139 H 08/22/24 20:21: POC Glucose 116 H I & O for Last 24 hours: Intake & Output 08/19/24 08/20/24 08/21/24 08/22/24 23:59 23:59 23:59 23:59 Intake Total 1979 Output Total 0 / 0 0 / 0 Balance 0 / 240 1979 Weight 113.398 kg 87.271 kg Constitutional Constitutional: no acute distress *Routine HEENT Exam Head: Present normocephalic Eye: Present EOMI and PERRL ENT: Present mucous membranes moist *Routine Neck Exam Neck: Present supple; Absent lymphadenopathy *Routine Respiratory Exam Respiratory: Present CTA bilaterally *Routine Cardiovascular Exam Cardiovascular: Present irregular rhythm *Routine Abdominal Exam Abdominal: Present soft and normoactive bowel sounds; Absent tenderness *Routine Extremities Exam Extremities: Absent cyanosis, clubbing or edema *Routine Skin Exam Skin: Present warm; Absent rash *Routine Neurological Exam Neurological: Present alert and oriented X3 Assessment and Plan *Assessment and plan (1) Atrial fibrillation with RVR: Status: Acute Category: Medical Code(s): I48.91 - Unspecified atrial fibrillation (2) Coronary artery disease: Status: Chronic Qualifiers: Coronary Disease-Associated Artery/Lesion type: [place] artery [place] vs. 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: without intermediate school teacher use Diabetes mellitus complication status: without complication Qualified Code(s): E11.9 - Type 2 diabetes mellitus without complications Category: Medical Code(s): E11.9 - Type 2 diabetes mellitus without complications (6) Pulmonary nodules: Status: Acute Category: Medical Code(s): R91.8 - Other nonspecific abnormal finding of lung field (7) Tobacco dependence in remission: Status: Acute Category: Medical Code(s): F17.201 - Nicotine dependence, unspecified, in remission (8) Hypothyroidism: Status: Acute Category: Medical Code(s): E03.9 - Hypothyroidism, unspecified Plan This is a 63-year-old female who presents to the ED with a past medical history of atrial fibrillation on chronic anticoagulation, coronary disease with previous cardiac catheterization and stents who reported chest pain. Problems addressed as follows: Chest pain Vasospastic angina Coronary artery disease s/p LHC with Stents Telemetry monitoring Troponin trend negative ED ECG with no acute ST-T changes Chronic paroxysmal atrial fibrillation noted P2Y12 inhibitor therapy Beta-clifton therapy Statin therapy [facility] consulted, appreciate recommendations. UDS positive for cocaine, last use 3 days ago. Chest pain start shortly after. Started Diltiazem 180mg daily for vasospasms in the setting of recent cocaine use Will obtain ECHO tomorrow, if unremarkable anticipate dc with close follow-up with cardiology. Follows with cardiology as outpatient Atrial fibrillation with RVR, resolved Afib Telemetry monitoring ED ECG with no acute ST-T changes QTc 414 MS and A-fib with RVR ED troponin negative x 2 Chest x-ray with no acute disease Echo (07/15/2023): EF 55% with RVSP 15 Beta-clifton therapy, which resolved RVR. Currently 90's, low 100's. Xarelto Trending electrolytes, magnesium Pulmonary nodules COPD not in exacerbation Tobacco dependence in remission Pulse oximetry monitoring Oxygen therapy to maintain appropriate oxygen saturations Currently oxygenating appropriately on room air ED chest x-ray with no acute disease CT chest showed stable pulmonary nodules Gerri/Clarissa inhalation therapy as needed Diabetes Routine blood sugar monitoring Sliding scale insulin therapy Consistent carbohydrate diet Hypothyroidism Levothyroxine replacement therapy Chronic opioid therapy Resume home opioid therapy BMI 40 Concerns for untreated FLACO/OHS Nutritional counseling Calorie appropriate diet Outpatient follow-up for sleep study The length of stay for this patient will be 2 midnights or greater due to above diagnoses.
[2024-08-23] VITALS: BP 97/68; PULSE 75; PULSE 80; RESP 14; TEMP 36.7; O2SAT 97
[2024-08-23 04:00] VITALS: BP 121/91; PULSE 80; PULSE 84; RESP 16; TEMP 36.6; O2SAT 96; BMI 32.4
--- NOTE | 2024-08-23 04:05 | PC.NURSE ---
63 yo female pt has been A/O x 3. Early in shift pt was medicated with morphine after report of chest pain, rated at 7. Pt reports pain down to 3 after morphine given. 02 on at 3 liters continuous, sats 97%. FSBS was 116 at 9 pm no insulin given. Pt able to ambulate to BR without assist . Pt remains in a fib per telemetry.
[2024-08-23] MEDS: LEVOTHYROXINE 100MCG (0.1MG) TAB 100 MCG PO (06:05)
[2024-08-23 06:16] LABS: POC Glucose,Bedside 106 (70-110)
[2024-08-23 07:18] LABS: Basophils % 0.4 % (0.1-2.0); Eosinophils # 0.3 K/mm3 (0.0-0.4); Eosinophils % 2.9 % (0.1-12.0); Hematocrit 27.3 % (37.0-47.0); Hemoglobin 7.7 g/dL (12.2-16.2); Lymphocytes # 2.6 K/mm3 (0.7-4.5); Lymphocytes % 29.3 % (10-50); Mean Corpuscular HGB Conc 28.2 g/dL (31.8-35.4); Mean Corpuscular Hemoglobin 21.5 pg (27.0-31.2); Mean Corpuscular Volume 76.3 fl (81-99); Mean Platelet Volume 7.7 fl (7.4-10.4); Monocytes # 0.6 K/mm3 (0.1-1.0); Monocytes % 6.2 % (1.7-9.3); Neutrophils # 5.4 K/mm3 (1.8-7.8); Neutrophils % 61.2 % (37.0-80.0); Platelet Count 411 K/mm3 (142-424); Red Blood Count 3.57 M/mm3 (4.20-5.40); Red Cell Distribution Width 18.7 % (11.5-17.5); White Blood Count 8.8 K/mm3 (4.8-10.8)
[2024-08-23 07:24] LABS: Chloride 103 mmol/L (98-107); Sodium 136 mmol/L (136-145)
[2024-08-23 07:25] LABS: Potassium 3.5 mmoL/L (3.5-5.1)
[2024-08-23 07:27] LABS: Blood Urea Nitrogen 20 mg/dl (7-17); Creatinine Clearance Estimated 76 mL/min (50-200); Estimated Glomerular Filt Rate 50 ml/min (>60); GFR (African American) 61 ML/MIN (>60)
[2024-08-23 07:28] LABS: Anion Gap 8.5 mEq/L (5-15); Carbon Dioxide 28 mmol/L (22.0-30.0); Glucose 108 mg/dl (74-100)
[2024-08-23 08:00] VITALS: BP 114/68; PULSE 90; RESP 22; TEMP 36.7; O2SAT 97
[2024-08-23] MEDS: POTASSIUM CHLORIDE 10MEQ TABLET.ER 10 MEQ PO (08:10)
[2024-08-23] MEDS: IRBESARTAN 75MG TABLET 75 MG PO (08:10)
[2024-08-23] MEDS: ISOSORBIDE MONO 30MG TAB.ER.24H 30 MG PO (08:10)
[2024-08-23] MEDS: TICAGRELOR 90MG TABLET 90 MG PO (08:10)
[2024-08-23] MEDS: dilTIAZem HCL 180MG CAP.ER.24H 180 MG PO (08:11)
[2024-08-23] MEDS: DULOXETINE 30MG CAPSULE.DR 60 MG PO (08:11)
[2024-08-23] MEDS: GABAPENTIN 600MG TABLET 600 MG PO (08:11)
[2024-08-23] MEDS: METFORMIN 500MG TABLET 1000 MG PO (08:11)
[2024-08-23] MEDS: FUROSEMIDE 20MG TABLET 20 MG PO (08:11)
[2024-08-23] MEDS: METOPROLOL SUCCINATE XL 50MG TABLET 50 MG PO (08:13)
[2024-08-23 12:00] VITALS: BP 123/59; PULSE 70; PULSE 90; RESP 17; TEMP 36.6; O2SAT 97
[2024-08-23] MEDS: MORPHINE 2MG/ML SYRINGE 2 MG IV (12:17)
[2024-08-23 13:13] LABS: Hematocrit 26.9 % (37.0-47.0); Hemoglobin 7.6 g/dL (12.2-16.2)
--- NOTE | 2024-08-23 13:34 | CA_ITS ---
APPROVED REPORT EXAM: Comprehensive 2D, Doppler, and color-flow Echocardiogram [facility] [employer] Sander: Carlita Cannon CRT Ht: 5 ft 6 in Wt: 192lbs BSA: 1.97 BP: 121/91 mmHg Indications: Chest Pain, COPD, CVA/TIA, Atrial Fibrillation, Diabetes, Hyperlipidemia, stents 2D Dimensions LA Volume 79.30 mL LA Volume Index 39.50 mL/m2 (M/F) 16-34 M-Mode Dimensions RVDd 2.88 cm (0.9-2.6) LA Diam 5.35 cm (1.9-4.0) LVDd 3.94 cm (3.5-5.7) LVDs 2.73 cm (3.5-5.7) IVSd 1.52 cm (0.6-1.1) PWd 0.57 cm (0.6-1.1) EF (Teich) 58.80% FS 30.70% EDV (Teich) 67.50 mL TAPSE 2.22 (<1.7) ESV (Teich) 27.80 mL LV Diastology E Decel Time 197 (160-240 msec) E/A Ratio 6.85 MED A' 3.60 cm/s LAT A' 3.90 cm/s Aortic Valve AO Peak GR. 7.70 mmHg Mitral Valve MV E Max Saad. 121.0 (40-130 cm/s) MV A Velocity 18.0 (40-130 cm/s) E/A Ratio 6.85 MV PHT 58.0 ms Pulmonary Valve PV Peak Velocity 100.0 (50-150 cm/s) Tricuspid Valve TR P. Velocity 272.00 cm/s RAP Estimate 10.00 mmHg RVSP 39.50 mmHg Left Ventricle The left ventricle is normal size. The left ventricular systolic function is normal. The left ventricular ejection fraction is within the normal range. There is increased LV wall thickness. IVSD 1.3 cm There is normal LV segmental wall motion. Diastolic function is indeterminate. LVEF is 65%. Right Ventricle The right ventricle is normal size. The right ventricular systolic function is normal. Atria The left atrium is moderately dilated. The right atrium is moderately dilated. There is no Doppler evidence of interatrial shunt. Aortic Valve Aortic valve is mildly thickened. There is no aortic valvular stenosis. No aortic regurgitation is present. Mitral Valve The mitral valve leaflets are mildly thickened. No evidence of mitral valve stenosis. Trace mitral regurgitation. Tricuspid Valve The tricuspid valve leaflets are thin and pliable. Mild tricuspid regurgitation. RVSP is 25-30 mmHg. Pulmonic Valve The pulmonary valve is normal in structure. Trace pulmonic regurgitation. Great Vessels The aortic root is normal in size. The ascending aorta is normal in size. IVC is normal in size and collapses >50% with inspiration. Pericardium There is no pericardial effusion. Other Information Study Quality: Fair Conclusion Normal biventricular systolic function. Increase in LV wall thickness. IVSD 1.3 cm. No regional wall motion abnormalities. Biatrial dilation. No significant valvular stenosis or regurgitation. In the setting of presence of symptoms, increased LV wall thickness, and biatrial dilation, further outpatient evaluation for infiltrative cardiomyopathy (namely amyloidosis) is suggested with cardiac MRI (amyloidosis protocol), PYP nuclear scan, and amyloidosis lab testing. Electronically signed by : Porsha Torres MD 08/23/2024 09:16:33
[2024-08-23] MEDS: ALPRAZolam 1MG TABLET 1 MG PO (15:00)
--- NOTE | 2024-08-23 15:22 | P.CONCA_ITS ---
History of Present Illness History of Present Illness Consult date: 08/23/24 Requesting physician: Alan Corcoran Consult reason: chest pain Chief complaint: chest pain History of present illness: 63-year-old white female with past medical history of coronary artery disease with stenting, hypertension, paroxysmal atrial fibrillation on Xarelto, hyperlipidemia and COPD presented to hospital on 08/21/2024 with complaints of chest pain. Patient was admitted for unstable angina and troponins were trended and remain negative. EKG remains without acute ischemic changes. Patient reports nitro does not help chest pain but Morphine does. Her family doctor has made attempts to wean her chronically prescribed benzodiazepine and opioid therapy without success. In the ED her telemetry identified atrial fibrillation with RVR. Her rate became controlled with beta-clifton therapy. Her troponin trend is negative x 2. D dimer negative. Chest ct is negative for acute process, shows stable bilateral pulmonary nodules. Her chest x-ray identified no acute disease. Of note she had a medical mangagement cath in 2019 and myoview stress test 03/2024 which was negative for fixed or reversible perfusion defects. Urine drug screen on admission positive for opiates, benzodiazepines and cocaine. [facility] Disclaimer: The information contained in this section may have been updated after the patient was seen, as this information can be updated by other users. Medical History Coronary artery disease COPD (chronic obstructive pulmonary disease) HLD (hyperlipidemia) Diabetes Anxiety and depression TIA (transient ischemic attack) History of stroke History of multiple cerebrovascular accidents (CVAs) History of class III angina pectoris Typical angina Dyspnea History of pancreatitis History of CVA (cerebrovascular accident) Surgical History History of biliary duct stent placement History of hysterectomy History of cholecystectomy History of coronary artery stent placement Family History Other Family history of cancer Family history of diabetes mellitus Social History (Updated 08/21/24 @ 22:29 by Yris Kaminski RN) Smoking Status: Current every day smoker tobacco type: cigarettes packs per day: 1 second hand exposure: No alcohol intake: never counseling provided: none substance use type: marijuana and crack/cocaine current occupational status: disabled and other Travel in the last 8 weeks: None household members: spouse housing: house number of children: 2 current occupational exposures/hazards: No caffeine: Yes Review of Systems Review of Systems Review of systems:: pertinent systems reviewed and negative unless documented below Constitutional Constitutional: Reports system reviewed and no additional complaints, except as documented *Cardiovascular Comments: chest pain *Respiratory Respiratory: Reports system reviewed and no additional complaints, except as documented *Gastrointestinal Gastrointestinal: Reports system reviewed and no additional complaints, except as documented *Neurologic Neurologic: Reports system reviewed and no additional complaints, except as documented and Denies confusion Psychiatric Psychiatric: Reports system reviewed and no additional complaints, except as documented and Denies confusion Exam Data for Last 24 hours Vital signs and Labs for Last 24 Hours: Temp Pulse Resp BP Pulse Ox O2 Del Method O2 Flow Rate 97.9 F 90 17 123/59 L 97 Room Air 2 08/23/24 12:00 08/23/24 12:00 08/23/24 12:00 08/23/24 12:00 08/23/24 12:00 08/23/24 13:00 08/23/24 10:38 Laboratory Results - last 24 hr 08/22/24 16:31: POC Glucose 139 H 08/22/24 20:21: POC Glucose 116 H 08/23/24 05:48: POC Glucose 106 08/23/24 06:25: WBC 8.8, RBC 3.57 L, Hgb 7.7 L, Hct 27.3 L, MCV 76.3 L, MCH 21.5 L, MCHC 28.2 L, RDW 18.7 H, Plt Count 411, MPV 7.7, Neut % (Auto) 61.2, Lymph % (Auto) 29.3, [place] % (Auto) 6.2, Eos % (Auto) 2.9, Baso % (Auto) 0.4, Neut # (Auto) 5.4, Lymph # (Auto) 2.6, [place] # (Auto) 0.6, Eos # (Auto) 0.3, Baso # (Auto) 0.0, Sodium 136, Potassium 3.5, Chloride 103, Carbon Dioxide 28, Anion Gap 8.5, BUN 20 H, Creatinine 1.10 H, Estimated Creat Clear 76, Estimated GFR 50 L, Est GFR ( Amer) 61, Glucose 108 H, Calcium 8.0 L 09/23/24 13:06: Hgb 7.6 L, Hct 26.9 L I & O for Last 24 hours: Intake & Output 08/20/24 08/21/24 08/22/24 08/23/24 23:59 23:59 23:59 23:59 Intake Total 1979 840 / 840 Output Total 0 / 0 0 / 0 Balance 0 / 240 1979 840 / 840 Weight 250 lb 192 lb 6.4 oz 201 lb 11.2 oz Constitutional Constitutional: no acute distress *Routine Respiratory Exam Respiratory: Present CTA bilaterally and symmetric chest movement *Routine Cardiovascular Exam Cardiovascular: Present RRR, Normal S1 and Normal S2 *Routine Abdominal Exam Abdominal: Present soft and normoactive bowel sounds; Absent tenderness *Routine Extremities Exam Extremities: Present full ROM and normal capillary refill; Absent edema *Routine Skin Exam Skin: Present intact, dry and warm Detailed Neck Exam: Thyroids Thyroid: Absent bruit Meds Home Medications and Allergies Home Medications ?Medication ?Instructions ?Recorded ?Confirmed ?Type isosorbide mononitrate 30 mg 30 mg PO DAILY 10/24/21 08/22/24 History tablet,extended release 24 hr albuterol sulfate 2.5 mg/3 mL 2.5 mg inhalation Q6H 04/01/23 08/22/24 History (0.083 %) solution for nebulization omeprazole 40 mg capsule,delayed 40 mg PO DAILY 04/08/23 08/22/24 History release nitroglycerin 0.4 mg sublingual 0.4 mg sublingual Q5MINP PRN chest 07/13/23 08/22/24 History tablet pain losartan 50 mg tablet 50 mg PO DAILY #90 tabs 11/06/23 08/22/24 Rx montelukast 10 mg tablet 10 mg PO HS 03/17/24 08/21/24 History rivaroxaban 20 mg tablet 20 mg PO QPMWITHMEAL 03/17/24 08/22/24 History ropinirole 0.25 mg tablet 0.25 mg PO HS #30 tabs 03/22/24 08/22/24 Rx atorvastatin 40 mg tablet 40 mg PO HS #90 tabs 04/08/24 08/22/24 Rx conjugated estrogens 0.3 mg tablet 0.3 mg PO DAILY #30 tabs 05/24/24 08/22/24 Rx triamcinolone acetonide 0.1 % 1 applic topical QID #30 grams 05/29/24 08/22/24 Rx topical ointment albuterol sulfate 90 mcg/actuation 2 inh inhalation Q4HP PRN 06/14/24 08/22/24 Rx aerosol inhaler Shortness Of Breath Or Wheezing #6.7 grams potassium chloride 10 mEq 10 meq PO DAILY #90 tabs 06/14/24 08/22/24 Rx tablet,extended release gabapentin 600 mg tablet 600 mg PO BID #60 tabs 06/16/24 08/22/24 Rx duloxetine 60 mg capsule,delayed 60 mg PO BID 90 days #180 caps 06/17/24 08/22/24 Rx release furosemide 20 mg tablet 20 mg PO DAILY #30 tabs 08/03/24 08/22/24 Rx alprazolam 1 mg tablet 1 mg PO TIDP PRN Anxiety 08/22/24 08/22/24 History levothyroxine 100 mcg tablet 100 mcg PO DAILYDM 08/22/24 08/22/24 History metformin 1,000 mg tablet 1,000 mg PO BIDWMEAL 08/22/24 08/22/24 History metoprolol succinate 50 mg 50 mg PO DAILY 08/22/24 08/22/24 History tablet,extended release 24 hr quetiapine 50 mg tablet 50 mg PO HS 08/22/24 08/22/24 History ticagrelor 90 mg tablet (Brilinta) 90 mg PO BID 08/22/24 08/22/24 History trazodone 100 mg tablet 100 mg PO HS 08/22/24 08/22/24 History diltiazem HCl 180 mg 180 mg PO DAILY #30 caps 08/23/24 Rx capsule,extended release 24 hr ranolazine 500 mg tablet,extended 500 mg PO BID 30 days #60 tabs 08/23/24 Rx release,12 hr New Prescriptions to Start Prescriptions: diltiazem HCl Alan Corcoran ranolazine Alan Corcoran Allergies Allergy/AdvReac Type Severity Reaction Status Date / Time codeine [CODEINE] Allergy Intermediate N/V Verified 05/27/24 15:38 ketorolac [KETOROLAC] Allergy Intermediate Hives Verified 05/27/24 15:38 meperidine [MEPERIDINE] Allergy Intermediate Hives Verified 05/27/24 15:38 tramadol [TRAMADOL] Allergy Intermediate Hives Verified 05/27/24 15:38 verapamil Allergy Mild Unknown Verified 05/27/24 15:38 allergy reaction ciprofloxacin AdvReac Severe Interacts Verified 05/27/24 15:38 with cymbalta Assessment and Plan *Assessment and plan (1) Hypertension: Status: Chronic Qualifiers: Hypertension type: essential hypertension Qualified Code(s): I10 - Essential (primary) hypertension Category: Medical Code(s): I10 - Essential (primary) hypertension (2) Hyperlipidemia: Status: Chronic Qualifiers: Hyperlipidemia type: mixed hyperlipidemia Qualified Code(s): E78.2 - Mixed hyperlipidemia Category: Medical Code(s): E78.5 - Hyperlipidemia, unspecified (3) PAF (paroxysmal atrial fibrillation): Status: Acute Category: Medical Code(s): I48.0 - Paroxysmal atrial fibrillation (4) Coronary artery disease: Status: Chronic Qualifiers: Coronary Disease-Associated Artery/Lesion type: [place] artery [place] vs. transplanted heart: [place] heart Associated angina: without angina Qualified Code(s): I25.10 - Atherosclerotic heart disease of [place] coronary artery without angina pectoris Category: Medical Code(s): I25.10 - Atherosclerotic heart disease of [place] coronary artery without angina pectoris (5) Noncompliance with medication regimen: Status: Acute Category: Medical Code(s): Z91.14 - Patient's other noncompliance with medication regimen Plan CAD Chest pain Hx of stenting Medical mangament cath in 2019 Stress myoview 03/2024: Negative for reversible or fixed defects EKG without acute ischemic changes noted Serial troponins remain negative Reports nitro doesn't help, only morphine helps pain Offered [facility] tomorrow versus outpatient stress testing, patient reports she wants to go home and will do outpatient stress test. Echo today shows normal biventricular systolic function, increase in LV wall thickness, no regional wall motion abnormalities noted, biatrial dilation, no significant valvular stenosis or regurg. Recommend outpatient cardiac MRI amyloidosis protocol/PYP nuclear scan and amyloidosis labs for further evaluati on on an outpatient basis Change Brilinta to Plavix due to also taking Xarelto for A-fib to decrease bleed risk, continue statin and metoprolol Add Ranexa 500 mg p.o. twice daily A-fib RVR-resolved Continue metoprolol and diltiazem 180 mg p.o. daily continue xarelto Polysubustance use Positive for benzos, opiates and cocaine CV summary 08/23/2024: Patient would like to proceed with outpatient ischemic evaluation for ongoing chest pain. Serial troponins remain negative and EKG is without acute ischemic changes noted. EF normal, no wall motion abnormalities noted. Recommend outpatient stress testing per patient request. Will also need outpatient cardiac MRI for amyloidosis rule out along with PYP nuclear scan and labs. Please have patient follow-up with Dr. Torres on at 2. Cardiac Meds Plavix 75 mg p.o. daily Metoprolol succinate 50 mg p.o. daily Atorvastatin 40 mg p.o. daily Ranexa 500 mg p.o. twice daily Diltiazem 180 mg p.o. daily Xarelto 15 mg p.o. daily
[2024-08-23 16:00] VITALS: BP 130/80; PULSE 50; PULSE 69; RESP 18; TEMP 36.8; O2SAT 96
[2024-08-23] MEDS: CLOPIDOGREL 75MG TAB 75 MG PO (16:41)
[2024-08-24 05:10] LABS: HCV Ab Non Reactive (Non Reactive)
--- NOTE | 2024-08-24 15:01 | CARE MANAGER ---
Contacted patient related to hospital discharge. Patient states that she is feeling weak but is doing better. She denies any questions or concerns. Patient states she doesn't have transportation to follow up appointments. Suggested she use [employer] [facility] and patient says she can't since she has Medicare as well. She hopes to have transportation soon and has the phone number to reschedule her appointments. She is going to [facility] later today. We discussed the importance of taking medications and getting to follow up appointments. Patient verbalized understanding.
[2024-08-26 02:37] LABS: POC Glucose,Bedside 146 (70-110)
--- NOTE | 2024-09-08 13:37 | P.DS_ITS ---
General Admission date:: 08/21/24 HPI HPI HPI: This is a 63-year-old female that presents to [facility] emergency department with concerns of chest pain that started this morning. She describes pressure to her central chest that radiates out to her arms. It wraps underneath her left breast into her back. She has identified palpitations and some shortness of air. She denies exertional dyspnea, cough, hemoptysis, co nfusion, nausea/vomiting. She reports a past medical history significant for coronary artery disease, COPD, chronic atrial fibrillation, tobacco dependence in remission and hypothyroidism. Her family doctor has made attempts to wean her chronically prescribed benzodiazepine and opioid therapy. In the ED her telemetry identified atrial fibrillation with RVR. Her rate became controlled with beta-clifton therapy. Her troponin trend is negative x 2. She received 8 mg of IV morphine over a 4-hour period of time to help control her chest pain. Her chest x-ray identified no acute disease. Hospital Course Hospital Course Hospital Course: This is a 63-year-old female who presents to the ED with a past medical history of atrial fibrillation on chronic anticoagulation, coronary disease with previous cardiac catheterization and stents who reported chest pain. Problems addressed as follows: Chest pain Vasospastic angina Coronary artery disease s/p LHC with Stents - UDS positive for cocaine, last use 3 days ago. Chest pain start shortly after. - LHC in 2019 showed CAD but no stents needed. Stress test 03/2024 did not show reversible or fixed defects. - Started Diltiazem 180mg daily for vasospasms in the setting of recent cocaine use, with improvement in chest pains. - Echo today shows normal biventricular systolic function, increase in LV wall thickness, no regional wall motion abnormalities noted, biatrial dilation, no significant valvular stenosis or regurg. - Continue aspirin 81mg, Plavix 75mg, metoprolol succinate 50mg - Cardiology consulted, recommended starting Ranexa 500 mg p.o. twice daily - Counseled on cocaine cessation. - Will follow-up with cardiology within 1 week. Atrial fibrillation with RVR, resolved Afib Continue metoprolol and diltiazem 180 mg p.o. daily continue xarelto Pulmonary nodules COPD not in exacerbation Tobacco dependence in remission Currently oxygenating appropriately on room air CT chest showed stable pulmonary nodules Continue albuterol as needed Diabetes Continue metformin Hypothyroidism Levothyroxine 100mcg Chronic opioid therapy Resume home opioid therapy BMI 40 Concerns for untreated FLACO/[facility] Nutritional counseling Calorie appropriate diet Outpatient follow-up for sleep study Exam Data for Last 24 hours Vital signs and Labs for Last 24 Hours: Temp Pulse Resp BP Pulse Ox O2 Del Method O2 Flow Rate 98.2 F 69 18 130/80 96 Nasal Cannula 2 08/23/24 16:00 08/23/24 16:00 08/23/24 16:00 08/23/24 16:00 08/23/24 16:00 08/23/24 17:00 08/23/24 17:00 Constitutional Constitutional: no acute distress *Routine HEENT Exam Head: Present normocephalic Eye: Present EOMI and PERRL ENT: Present mucous membranes moist *Routine Neck Exam Neck: Present supple; Absent lymphadenopathy *Routine Respiratory Exam Respiratory: Present CTA bilaterally *Routine Cardiovascular Exam Cardiovascular: Present irregular rhythm *Routine Abdominal Exam Abdominal: Present soft and normoactive bowel sounds; Absent tenderness *Routine Extremities Exam Extremities: Absent cyanosis, clubbing or edema *Routine Skin Exam Skin: Present warm; Absent rash *Routine Neurological Exam Neurological: Present alert and oriented X3 DS: Diagnosis Discharge Diagnosis (1) Hypertension: Status: Chronic Code(s): I10 - Essential (primary) hypertension Qualifiers: Hypertension type: essential hypertension Qualified Code(s): I10 - Essential (primary) hypertension (2) Hyperlipidemia: Status: Chronic Code(s): E78.5 - Hyperlipidemia, unspecified Qualifiers: Hyperlipidemia type: mixed hyperlipidemia Qualified Code(s): E78.2 - Mixed hyperlipidemia (3) PAF (paroxysmal atrial fibrillation): Status: Acute Code(s): I48.0 - Paroxysmal atrial fibrillation (4) Coronary artery disease: Status: Chronic Code(s): I25.10 - Atherosclerotic heart disease of [place] coronary artery without angina pectoris Qualifiers: Associated angina: without angina Coronary Disease-Associated Artery/Lesion type: [place] artery [place] vs. transplanted heart: [place] heart Qualified Code(s): I25.10 - Atherosclerotic heart disease of [place] coronary artery without angina pectoris (5) Noncompliance with medication regimen: Status: Acute Code(s): Z91.14 - Patient's other noncompliance with medication regimen Meds Home Medications and Allergies Home Medications ?Medication ?Instructions ?Recorded ?Confirmed ?Type isosorbide mononitrate 30 mg 30 mg PO DAILY 10/24/21 08/22/24 History tablet,extended release 24 hr albuterol sulfate 2.5 mg/3 mL 2.5 mg inhalation Q6H 04/01/23 08/22/24 History (0.083 %) solution for nebulization omeprazole 40 mg capsule,delayed 40 mg PO DAILY 04/08/23 08/22/24 History release nitroglycerin 0.4 mg sublingual 0.4 mg sublingual Q5MINP PRN chest 07/13/23 08/22/24 History tablet pain losartan 50 mg tablet 50 mg PO DAILY #90 tabs 11/06/23 08/22/24 Rx montelukast 10 mg tablet 10 mg PO HS 03/17/24 08/21/24 History rivaroxaban 20 mg tablet 20 mg PO QPMWITHMEAL 03/17/24 08/22/24 History ropinirole 0.25 mg tablet 0.25 mg PO HS #30 tabs 03/22/24 08/22/24 Rx atorvastatin 40 mg tablet 40 mg PO HS #90 tabs 04/08/24 08/22/24 Rx conjugated estrogens 0.3 mg tablet 0.3 mg PO DAILY #30 tabs 05/24/24 08/22/24 Rx triamcinolone acetonide 0.1 % 1 applic topical QID #30 grams 05/29/24 08/22/24 Rx topical ointment albuterol sulfate 90 mcg/actuation 2 inh inhalation Q4HP PRN 06/14/24 08/22/24 Rx aerosol inhaler Shortness Of Breath Or Wheezing #6.7 grams potassium chloride 10 mEq 10 meq PO DAILY #90 tabs 06/14/24 08/22/24 Rx tablet,extended release gabapentin 600 mg tablet 600 mg PO BID #60 tabs 06/16/24 08/22/24 Rx duloxetine 60 mg capsule,delayed 60 mg PO BID 90 days #180 caps 06/17/24 08/22/24 Rx release alprazolam 1 mg tablet 1 mg PO TIDP PRN Anxiety 08/22/24 08/22/24 History levothyroxine 100 mcg tablet 100 mcg PO DAILYDM 08/22/24 08/22/24 History metformin 1,000 mg tablet 1,000 mg PO BIDWMEAL 08/22/24 08/22/24 History metoprolol succinate 50 mg 50 mg PO DAILY 08/22/24 08/22/24 History tablet,extended release 24 hr quetiapine 50 mg tablet 50 mg PO HS 08/22/24 08/22/24 History ticagrelor 90 mg tablet (Brilinta) 90 mg PO BID 08/22/24 08/22/24 History trazodone 100 mg tablet 100 mg PO HS 08/22/24 08/22/24 History diltiazem HCl 180 mg 180 mg PO DAILY #30 caps 08/23/24 Rx capsule,extended release 24 hr ranolazine 500 mg tablet,extended 500 mg PO BID 30 days #60 tabs 08/23/24 Rx release,12 hr furosemide 20 mg tablet 20 mg PO DAILY #30 tabs 09/03/24 Rx New Prescriptions to Start Prescriptions: diltiazem HCl Alan Corcoran ranolazine Alan Corcoran Allergies Allergy/AdvReac Type Severity Reaction Status Date / Time codeine [CODEINE] Allergy Intermediate N/V Verified 05/27/24 15:38 ketorolac [KETOROLAC] Allergy Intermediate Hives Verified 05/27/24 15:38 meperidine [MEPERIDINE] Allergy Intermediate Hives Verified 05/27/24 15:38 tramadol [TRAMADOL] Allergy Intermediate Hives Verified 05/27/24 15:38 verapamil Allergy Mild Unknown Verified 05/27/24 15:38 allergy reaction ciprofloxacin AdvReac Severe Interacts Verified 05/27/24 15:38 with cymbalta Discharge Plan Disposition Patient Disposition: Home, Self-Care Condition: Good Follow up Plan Follow up with: Juan C Colón MD [Staff Physician] - 08/27/24 9:00 am Tarun Torres MD [Staff Physician] - 08/26/24 2:00 pm Prescriptions/Medication Reconciliation: New diltiazem HCl 180 mg Capsule,Extended Release 24hr 180 mg PO DAILY Qty: 30 0RF ranolazine 500 mg Tablet Extended Release 12 Hr 500 mg PO BID 30 Days Qty: 60 0RF Continued omeprazole 40 mg capsule,delayed release(DR/EC) 40 mg PO DAILY losartan 50 mg tablet 50 mg PO DAILY Qty: 90 3RF atorvastatin 40 mg tablet 40 mg PO HS Qty: 90 3RF conjugated estrogens 0.3 mg tablet 0.3 mg PO DAILY Qty: 30 1RF Rx Instructions: cyclically triamcinolone acetonide 0.1 % ointment 1 applic topical QID Qty: 30 1RF Rx Instructions: apply to lesions on scalp 4x/day as needed potassium chloride 10 mEq tablet extended release 10 meq PO DAILY Qty: 90 1RF albuterol sulfate 90 mcg/actuation HFA aerosol inhaler 2 inh IH Q4HP PRN (Reason: Shortness Of Breath Or Wheezing) Qty: 6.7 2RF duloxetine 60 mg capsule,delayed release(DR/EC) 60 mg PO BID 90 Days Qty: 180 1RF furosemide 20 mg tablet 20 mg PO DAILY Qty: 30 1RF nitroglycerin 0.4 mg tablet, sublingual 0.4 mg sublingual Q5MINP PRN (Reason: chest pain) Rx Instructions: do not exceed 3 doses per episode ropinirole 0.25 mg tablet 0.25 mg PO HS Qty: 30 2RF gabapentin 600 mg tablet 600 mg PO BID Qty: 60 5RF metoprolol succinate 50 mg tablet extended release 24 hr 50 mg PO DAILY Patient Comments: TAKE 1 TABLET(50 mg) orally daily for High Blood Pressure alprazolam 1 mg tablet 1 mg PO TIDP PRN (Reason: Anxiety) levothyroxine 100 mcg tablet 100 mcg PO DAILYDM trazodone 100 mg tablet 100 mg PO HS metformin 1,000 mg tablet 1,000 mg PO BIDWMEAL quetiapine 50 mg tablet 50 mg PO HS Brilinta 90 mg tablet 90 mg PO BID isosorbide mononitrate 30 MG tablet extended release 24 hr 30 mg PO DAILY albuterol sulfate 2.5 mg /3 mL (0.083 %) solution for nebulization 2.5 mg inhalation Q6H montelukast 10 mg tablet 10 mg PO HS Rx Instructions: take 1 tablet by mouth at bedtime for Allergy symptoms rivaroxaban 20 mg Tablet 20 mg PO QPMWITHMEAL Problem Reconciliation Problems Reviewed?: Yes Patient Discharge Instructions ACTIVITY: Continue current activity DIET: continue same diet Additional Instructions: Please follow-up with your regional administrative assistant This Week for Further Evaluation of Your Chest Pains. Patient Instructions: DI for Atrial Fibrillation Print Language: [place] Providers Primary Care Provider: Provider,Referral Admit Provider: Alan Corcoran Attending Provider: Alan Corcoran
== END 2024-08-23 18:44 | disposition home or self-care (01) ==
LOC: ER 21:30 → 2ND 21:37
PROVIDERS: Family Medicine; Admitting Provider Student in an Organized Health Care Education/Training Program; Emergency Provider Emergency Medicine; Visit Provider Student in an Organized Health Care Education/Training Program
DX: I25.110 Atherosclerotic heart disease of native coronary artery with unstable angina pectoris; N17.9 Acute kidney failure, unspecified; E11.9 Type 2 diabetes mellitus without complications; R91.8 Other nonspecific abnormal finding of lung field; E03.9 Hypothyroidism, unspecified; I10 Essential (primary) hypertension; E78.2 Mixed hyperlipidemia; I48.0 Paroxysmal atrial fibrillation; F17.210 Nicotine dependence, cigarettes, uncomplicated; J44.9 Chronic obstructive pulmonary disease, unspecified; Z79.899 Other long term (current) drug therapy; Z79.01 Long term (current) use of anticoagulants; Z95.5 Presence of coronary angioplasty implant and graft; Z79.891 Long term (current) use of opiate analgesic; Z99.81 Dependence on supplemental oxygen; Z91.148 Patient's other noncompliance with medication regimen for other reason; Z79.84 Long term (current) use of oral hypoglycemic drugs
CPT/HCPCS: 71045; 71250; 80048; 80053; 80307; 82607; 82803; 82962; 83540; 83550; 83605; 83690; 83735; 83880; 84436; 84443; 84484; 85014; 85018; 85025; 85378; 85610; 85730; 86803; 87389; 93005; 93306; 99291; G0378; J1642; J2270; J2405; J7030; J7620

== ENCOUNTER 2024-10-28 14:29 | Observation (INO) | payer MEDICARE, MEDICAID, SELFPAY ==
[2024-10-28] VITALS (13 sets, daily range): BP systolic 90–134; BP diastolic 42–98; PULSE 92–132; RESP 14–27; TEMP 36.4–36.6; O2SAT 85–100; BMI 30.7; BMI 32.3
--- NOTE | 2024-10-28 14:37 | HMH.EDGENADL ---
Discharge Plan Disposition Patient Disposition: Admitted Chief Complaint: Abdominal Pain Prescriptions Prescriptions: No Action omeprazole 40 mg capsule,delayed release(DR/EC) 40 mg PO DAILY losartan 50 mg tablet 50 mg PO DAILY Qty: 90 3RF atorvastatin 40 mg tablet 40 mg PO HS Qty: 90 3RF conjugated estrogens 0.3 mg tablet 0.3 mg PO DAILY Qty: 30 1RF Rx Instructions: cyclically triamcinolone acetonide 0.1 % ointment 1 applic topical QID Qty: 30 1RF Rx Instructions: apply to lesions on scalp 4x/day as needed albuterol sulfate 90 mcg/actuation HFA aerosol inhaler 2 inh IH Q4HP PRN (Reason: Shortness Of Breath Or Wheezing) Qty: 6.7 2RF furosemide 20 mg tablet 20 mg PO DAILY Qty: 30 1RF duloxetine 60 mg capsule,delayed release(DR/EC) 60 mg PO BID 90 Days Qty: 180 1RF potassium chloride 10 mEq tablet extended release 10 meq PO DAILY Qty: 90 1RF magnesium oxide 400 mg magnesium tablet 400 mg PO BID Qty: 180 3RF nitroglycerin 0.4 mg tablet, sublingual 0.4 mg sublingual Q5MINP PRN (Reason: chest pain) Rx Instructions: do not exceed 3 doses per episode ropinirole 0.25 mg tablet 0.25 mg PO HS Qty: 30 2RF gabapentin 600 mg tablet 600 mg PO BID Qty: 60 5RF metoprolol succinate 50 mg tablet extended release 24 hr 50 mg PO DAILY Patient Comments: TAKE 1 TABLET(50 mg) orally daily for High Blood Pressure alprazolam 1 mg tablet 1 mg PO TIDP PRN (Reason: Anxiety) levothyroxine 100 mcg tablet 100 mcg PO DAILYDM trazodone 100 mg tablet 100 mg PO HS metformin 1,000 mg tablet 1,000 mg PO BIDWMEAL quetiapine 50 mg tablet 50 mg PO HS Brilinta 90 mg tablet 90 mg PO BID diltiazem HCl 180 mg Capsule,Extended Release 24hr 180 mg PO DAILY Qty: 30 0RF ranolazine 500 mg Tablet Extended Release 12 Hr 500 mg PO BID 30 Days Qty: 60 0RF isosorbide mononitrate 30 MG tablet extended release 24 hr 30 mg PO DAILY albuterol sulfate 2.5 mg /3 mL (0.083 %) solution for nebulization 2.5 mg inhalation Q6H montelukast 10 mg tablet 10 mg PO HS Rx Instructions: take 1 tablet by mouth at bedtime for Allergy symptoms rivaroxaban 20 mg Tablet 20 mg PO QPMWITHMEAL Clinical Impressions Clinical Impression: GIB (gastrointestinal bleeding), Renal insufficiency, Chronic anemia Print Language Print Language: [place] Discharge ED Provider: José Luis Hadley General Adult HPI <José Luis Hadley MD - Last Filed: 10/28/24 14:49> General Chief complaint: Abdominal Pain Stated complaint: Abdominal pain Time Seen by Provider: 10/28/24 14:33 History of Present Illness HPI narrative: Please note that above description of symptoms, in this electronic medical record under categorization of recalled from ER triage doctor by RN are reflective of an initial nursing assessment, however, is not reflective of my full history and physical exam that was personally taken and clarified. Consequentially, this preceding description of symptoms, which may include the patient's categorized chief complaint in the EMR, do not reflect my personal clinical impression, and the ultimate description of history of present illness and patient stated complaints should be deferred to this section of the note. Unless stated otherwise or congruent with this section of the note, additional signs, symptoms, or incongruence should be interpreted as inaccurate with my clinical impression. Related Data Home Medications ?Medication ?Instructions ?Recorded ?Confirmed isosorbide mononitrate 30 mg 30 mg PO DAILY 10/24/21 09/21/24 tablet,extended release 24 hr albuterol sulfate 2.5 mg/3 mL 2.5 mg inhalation Q6H 04/01/23 09/21/24 (0.083 %) solution for nebulization omeprazole 40 mg capsule,delayed 40 mg PO DAILY 04/08/23 09/21/24 release nitroglycerin 0.4 mg sublingual 0.4 mg sublingual Q5MINP PRN chest 07/13/23 09/21/24 tablet pain montelukast 10 mg tablet 10 mg PO HS 03/17/24 09/21/24 rivaroxaban 20 mg tablet 20 mg PO QPMWITHMEAL 03/17/24 09/21/24 alprazolam 1 mg tablet 1 mg PO TIDP PRN Anxiety 08/22/24 09/21/24 levothyroxine 100 mcg tablet 100 mcg PO DAILYDM 08/22/24 09/21/24 metformin 1,000 mg tablet 1,000 mg PO BIDWMEAL 08/22/24 09/21/24 metoprolol succinate 50 mg 50 mg PO DAILY 08/22/24 09/21/24 tablet,extended release 24 hr quetiapine 50 mg tablet 50 mg PO HS 08/22/24 09/21/24 ticagrelor 90 mg tablet (Brilinta) 90 mg PO BID 08/22/24 09/21/24 trazodone 100 mg tablet 100 mg PO HS 08/22/24 09/21/24 Previous Rx's ?Medication ?Instructions ?Recorded losartan 50 mg tablet 50 mg PO DAILY #90 tabs 11/06/23 ropinirole 0.25 mg tablet 0.25 mg PO HS #30 tabs 03/22/24 atorvastatin 40 mg tablet 40 mg PO HS #90 tabs 04/08/24 conjugated estrogens 0.3 mg tablet 0.3 mg PO DAILY #30 tabs 05/24/24 triamcinolone acetonide 0.1 % 1 applic topical QID #30 grams 05/29/24 topical ointment albuterol sulfate 90 mcg/actuation 2 inh inhalation Q4HP PRN 06/14/24 aerosol inhaler Shortness Of Breath Or Wheezing #6.7 grams gabapentin 600 mg tablet 600 mg PO BID #60 tabs 06/16/24 diltiazem HCl 180 mg 180 mg PO DAILY #30 caps 08/23/24 capsule,extended release 24 hr ranolazine 500 mg tablet,extended 500 mg PO BID 30 days #60 tabs 08/23/24 release,12 hr furosemide 20 mg tablet 20 mg PO DAILY #30 tabs 09/03/24 duloxetine 60 mg capsule,delayed 60 mg PO BID 90 days #180 caps 09/23/24 release potassium chloride 10 mEq 10 meq PO DAILY #90 tabs 09/23/24 tablet,extended release magnesium oxide 400 mg PO BID #180 tabs 10/15/24 Allergies Allergy/AdvReac Type Severity Reaction Status Date / Time codeine (CODEINE) Allergy Intermediate N/V Verified 09/21/24 11:49 ketorolac (KETOROLAC) Allergy Intermediate Hives Verified 09/21/24 11:49 meperidine (MEPERIDINE) Allergy Intermediate Hives Verified 09/21/24 11:49 tramadol (TRAMADOL) Allergy Intermediate Hives Verified 09/21/24 11:49 verapamil Allergy Mild Unknown Verified 09/21/24 11:49 allergy reaction ciprofloxacin AdvReac Severe Interacts Verified 09/21/24 11:49 with cymbalta [facility] <José Luis Hadley MD - Last Filed: 10/28/24 14:49> [facility] Disclaimer: The information contained in this section may have been updated after the patient was seen, as this information can be updated by other users. 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 [employer] pancreas Encounter for pre-operative cardiovascular clearance Orthopnea CHF (congestive heart failure) Pancreatitis Nausea vomiting and diarrhea Exhausted vascular access Rib fractures Chronic hypoxemic respiratory failure Coronary artery disease COPD (chronic obstructive pulmonary disease) HLD (hyperlipidemia) Diabetes Anxiety and depression TIA (transient ischemic attack) History of stroke History of multiple cerebrovascular accidents (CVAs) History of class III angina pectoris Typical angina Dyspnea History of pancreatitis History of CVA (cerebrovascular accident) Surgical History History of biliary duct stent placement History of hysterectomy History of cholecystectomy History of coronary artery stent placement Family History Other Family history of cancer Family history of diabetes mellitus Social History Smoking Status: Former smoker tobacco type: cigarettes packs per day: 1 second hand exposure: No alcohol intake: never counseling provided: none substance use type: marijuana and crack/cocaine current occupational status: disabled and other household members: spouse housing: house number of children: 2 current occupational exposures/hazards: No caffeine: Yes Other Medical History Have you received the Flu Vaccine for this season: No Have you received the Pneumonia Vaccine: No <José Luis Hadley MD - Last Filed: 10/28/24 14:49> ROS Obtained: Yes All systems reviewed & no additional complaints except as documented Physical Exam <José Luis Hadley MD - Last Filed: 10/28/24 14:49> General General appearance: alert Head Head exam: atraumatic and normocephalic Eye Eye exam: Present normal appearance, PERRL and EOMI Neck Neck exam: Present normal inspection, full ROM and trachea midline Respiratory Respiratory exam: Absent respiratory distress, wheezes, stridor, accessory muscle use or prolonged expiratory phase Cardiovascular Cardiovascular exam: Present regular rate, normal rhythm and other (Pulses equal symmetric in upper and lower extremities) Abdominal Exam Abdominal exam: Present soft; Absent distention, tenderness, guarding, rebound, rigidity or pulsatile mass Extremities Exam Extremities exam: Absent edema Neurological Exam Neurological exam: Present alert, oriented X3 and CN II-XII intact; Absent motor sensory deficit Skin Skin exam: Present warm and dry; Absent diaphoresis or erythema Medical Decision Making <José Lusi Hadley MD - Last Filed: 10/28/24 14:49> Medical Records Medical records reviewed: Yes I reviewed the patient's medical records. Screening: Per USPSTF and CDC recommendations, given the prevalence of disease in our region, it is our hospital?s policy to screen for HIV and viral Hepatitis for all patients aged 18 and over and those with ongoing risk factors. [place] Inquiry Pt receiving controlled substance: No [place] was queried for this patient: No Vital Signs: 10/28/24 14:29 10/28/24 15:16 10/28/24 16:03 Temperature 97.8 F Temperature Source Oral Pulse Rate 132 H 110 H Pulse Rate [Right Brachial] 110 H Respiratory Rate 20 27 H Blood Pressure 134/98 H 123/87 Blood Pressure [Right Arm] 103/66 L Blood Pressure Mean [Right Arm] 78 Blood Pressure Source [Right Arm] Automatic Cuff Blood Pressure Position [Right Arm] Supine 02 Sat by Pulse Oximetry 97 98 98 Oxygen Delivery Method Nasal Cannula Room Air Room Air Oxygen Flow Rate (LPM) 3 10/28/24 16:30 10/28/24 17:00 10/28/24 17:31 Temperature Temperature Source Pulse Rate 108 H 125 H 126 H Pulse Rate [Right Brachial] Respiratory Rate 19 18 16 Blood Pressure 116/75 121/70 109/76 L Blood Pressure [Right Arm] Blood Pressure Mean [Right Arm] Blood Pressure Source [Right Arm] Blood Pressure Position [Right Arm] 02 Sat by Pulse Oximetry 99 95 96 Oxygen Delivery Method Room Air Room Air Room Air Oxygen Flow Rate (LPM) Lab Data Lab Results 10/28/24 14:45: WBC 13.0 H, RBC 4.04 L, Hgb 8.9 L, Hct 29.2 L, MCV 72.2 L, MCH 22.0 L, MCHC 30.4 L, RDW 19.5 H, Plt Count 455 H, MPV 8.3, Neut % (Auto) 70.2, Lymph % (Auto) 22.3, Catron % (Auto) 5.2, Eos % (Auto) 1.7, Baso % (Auto) 0.6, Neut # (Auto) 9.1 H, Lymph # (Auto) 2.9, Catron # (Auto) 0.7, Eos # (Auto) 0.2, Baso # (Auto) 0.1, PT 13.1 H, INR 1.19 H, APTT 25.9, Sodium 138, Potassium 3.3 L, Chloride 102, Carbon Dioxide 23, Anion Gap 16.3 H, BUN 18 H, Creatinine 1.50 H, Estimated Creat Clear 52, Estimated GFR 35 L, Est GFR ( Amer) 42 L, Glucose 134 H, Lactate 3.7 H, Calcium 8.2 L, Total Bilirubin 1.0, AST 31, ALT 20, Alkaline Phosphatase 118, Troponin I < 0.01, NT-Pro-B Natriuret Pep 3830 H, Total Protein 7.1, Albumin 4.0, Globulin 3.1, Albumin/Globulin Ratio 1.3, Lipase 125, HIV 1&2 Antibody Rapid Nonreactive 10/28/24 15:34: Blood Type B Positive, Antibody Screen Negative 10/28/24 16:33: Urine Color Yellow, Urine Appearance Clear, Urine pH 5.5, Ur Specific [place] 1.015, Urine Protein Negative, Urine Glucose (UA) Negative, Urine Ketones Negative, Urine Blood Negative, Urine Nitrate Negative, Urine Bilirubin Negative, Urine Urobilinogen 0.2, Ur Leukocyte Esterase Negative, Urine RBC Occasional, Urine WBC Occasional, Ur Squamous Epith Cells 3-5, Urine Bacteria 1+, Hyaline Casts Occasional, Urine Mucus 1+ 10/28/24 14:45 10/28/24 14:45 Orders (Tests/Meds): ED MEDICATIONS Generic Name Dose Route Start Last Admin Trade Name Freq PRN Reason Stop Dose Admin Acetaminophen 650 mg 10/28/24 18:20 Acetaminophen 325mg Tab PO 11/27/24 18:19 Q4HP PRN Fever or Mild Pain (1-3) Lactated Ringer's 1,000 mls @ 999 mls/hr 10/28/24 18:26 Lactated Ringer's 1000 Ml Bag IV 10/28/24 19:26 .Q1H1M ONE Misoprostol 400 mcg 10/28/24 18:30 Misoprostol 200 Mcg Tablet PO 11/27/24 18:29 Q6H CRISTOPHER Ondansetron HCl 4 mg 10/28/24 18:20 Ondansetron 4mg/2ml Vial IV 11/27/24 18:19 Q4H PRN Nausea Pantoprazole Sodium 40 mg 10/28/24 21:00 Pantoprazole 40mg Vial IV 11/27/24 20:59 BID CRISTOPHER Sodium Chloride 10 ml 10/28/24 17:26 Sodium Chloride 0.9% 10ml Vial IV 11/27/24 17:25 NEEDED PRN dilute protonix Discontinued Medications Generic Name Dose Route Start Last Admin Trade Name Freq PRN Reason Stop Dose Admin Sodium Chloride 1,000 mls @ 999 mls/hr 10/28/24 15:13 10/28/24 15:16 Sod Chlor 0.9% 1000ml Bag IV 10/28/24 16:13 999 mls/hr .Q1H1M ONE Administration Iopamidol 80 ml 10/28/24 16:08 10/28/24 16:10 Iopamidol-370 (76%);100ml Bottle IV 10/28/24 16:09 80 ml ONCE ONE Administration Morphine Sulfate 4 mg 10/28/24 14:39 10/28/24 14:51 Morphine 4mg/Ml Syringe IV 10/28/24 14:40 4 mg ONCE ONE Administration Morphine Sulfate 4 mg 10/28/24 17:10 10/28/24 17:17 Morphine 4mg/Ml Syringe IV 10/28/24 17:11 4 mg ONCE ONE Administration Pantoprazole Sodium 40 mg 10/28/24 17:26 10/28/24 17:36 Pantoprazole 40mg Vial IV 10/28/24 17:27 40 mg ONCE ONE Administration Promethazine HCl 12.5 mg 10/28/24 14:39 10/28/24 14:51 Promethazine Hcl 25mg/Ml 1ml Vial IV 10/28/24 14:40 12.5 mg ONCE ONE Administration Sodium Chloride 25 ml 10/28/24 14:39 10/28/24 14:51 Sodium Chloride 0.9% 25ml Bag IV 10/28/24 14:40 25 ml ONCE ONE Administration Sodium Chloride 50 ml 10/28/24 16:08 10/28/24 16:10 0.9 % Sodium Chloride 50 Ml Vial IV 10/28/24 16:09 50 ml ONCE ONE Administration Sodium Chloride 10 ml 10/28/24 16:08 10/28/24 16:10 Sodium Chloride 0.9% 10ml Syr (Rad Only) IV 10/28/24 16:09 10 ml ONCE ONE Administration ORDERS Category Date Time Status Type and Screen Stat BBK 10/28/24 15:34 Completed Type and Screen Stat BBK 10/28/24 18:[address] angio abdomen pelvis Stat Cat Scan 10/28/24 14:39 Completed Gastroenterology Consult [Consult to Gastroenterology] Cons 10/28/24 18:20 Active [CONS] Routine XR chest portable Stat Exams 10/28/24 14:40 Completed Complete Blood Count Auto Diff AMLAB Lab 10/29/24 06:00 Ordered Complete Blood Count Auto Diff AMLAB Lab 10/30/24 06:00 Ordered Complete Blood Count Auto Diff AMLAB Lab 10/31/24 06:00 Ordered Complete Blood Count Auto Diff AMLAB Lab 11/01/24 06:00 Ordered Complete Blood Count Auto Diff AMLAB Lab 11/02/24 06:00 Ordered Complete Blood Count Auto Diff Stat Lab 10/28/24 14:45 Completed Comprehensive Metabolic Panel AMLAB Lab 10/29/24 06:00 Ordered Comprehensive Metabolic Panel AMLAB Lab 10/30/24 06:00 Ordered Comprehensive Metabolic Panel AMLAB Lab 10/31/24 06:00 Ordered Comprehensive Metabolic Panel AMLAB Lab 11/01/24 06:00 Ordered Comprehensive Metabolic Panel AMLAB Lab 11/02/24 06:00 Ordered Comprehensive Metabolic Panel Stat Lab 10/28/24 14:45 Completed Diarrhea 6-11 Panel, Cdiff PCR Stat Lab 10/28/24 14:47 Ordered HIV (1&2) Antibody Rapid Stat Lab 10/28/24 14:45 Completed Hemoglobin and Hematocrit Stat Lab 10/28/24 21:00 Ordered Hep C Ab with Reflex to RNA Stat Lab 10/28/24 14:45 Received Lactic Acid Stat Lab 10/28/24 14:45 Completed Lipase Stat Lab 10/28/24 14:45 Completed Magnesium AMLAB Lab 10/29/24 06:00 Ordered NT Pro Brain Natriuretic Pep. Stat Lab 10/28/24 14:45 Completed PT INR [Prothrombin Time INR] Stat Lab 10/28/24 14:45 Completed PTT [Activated Partial Thrombo Time] Stat Lab 10/28/24 14:45 Completed Troponin I Q3H Lab 10/28/24 20:45 Ordered Troponin I Stat Lab 10/28/24 14:45 Completed Urinalysis and Microscopic Stat Lab 10/28/24 16:33 Completed Medical Decision Narrative: 64-year-old female history of hypertension, hyperlipidemia, paroxysmal A-fib on Xarelto, COPD on 2.5 L nasal cannula at home, obesity, CAD status post stenting presenting with bright red blood per rectum. Patient states that she has internal hemorrhoids and is being monitored by gastroenterology for this. States that she started having diarrhea 3 days prior to this that was nonbloody, not mucousy. No melena or hematochezia. Today, 10/28, while she was at lunch, states that she had crampy lower abdominal pain and went to the bathroom. Had bowel movement, states that she filled up the toilet bowl with blood. States that it was bright red. No syncope, chest pain, shortness of breath, lightheadedness, or any other associated symptoms. History was obtained via conversation with patient and EMS. On arrival, patient hemodynamically stable, alert, oriented x4, appropriate, GCS 15, moving all extremities spontaneously, pupils equal and reactive to light. Full physical exam performed and significant for anxious appearing female no acute distress. Abdomen is soft, nontender, nondistended. Mildly tachycardic 105 to 110 bpm. Cardiopulmonary exam within normal limits. Differential includes internal hemorrhoid, diverticular bleed, enteritis, colitis, malignancy, infectious, among others. Patient placed on continuous cardiac monitoring and continuous pulse ox with initial blood pressure 103/66, heart rate 110, saturation 97% on 3 L nasal cannula. Independent interpretation of EKG shows A-fib RVR 101 bpm with narrow QRS at 89 ms, QTc 426. Normal axis. T wave inversions in V2 through V5 without reciprocal change. Patient was given Phenergan and morphine for symptomatic management and correction of underlying abnormalities. Workup including labs and imaging pending at time of handoff to oncoming physician. [place] disclaimer Much of this encounter note is an electronic education courses sales representative spoken language to printed text. Electronic education courses sales representative of the spoken language may permit errors. Although I have reviewed the note, some errors may still exist. <Nicolas Armendariz MD - Last Filed: 10/28/24 18:32> Vital Signs: 10/28/24 14:29 10/28/24 15:16 10/28/24 16:03 Temperature 97.8 F Temperature Source Oral Pulse Rate 132 H 110 H Pulse Rate [Right Brachial] 110 H Respiratory Rate 20 27 H Blood Pressure 134/98 H 123/87 Blood Pressure [Right Arm] 103/66 L Blood Pressure Mean [Right Arm] 78 Blood Pressure Source [Right Arm] Automatic Cuff Blood Pressure Position [Right Arm] Supine 02 Sat by Pulse Oximetry 97 98 98 Oxygen Delivery Method Nasal Cannula Room Air Room Air Oxygen Flow Rate (LPM) 3 10/28/24 16:30 10/28/24 17:00 10/28/24 17:31 Temperature Temperature Source Pulse Rate 108 H 125 H 126 H Pulse Rate [Right Brachial] Respiratory Rate 19 18 16 Blood Pressure 116/75 121/70 109/76 L Blood Pressure [Right Arm] Blood Pressure Mean [Right Arm] Blood Pressure Source [Right Arm] Blood Pressure Position [Right Arm] 02 Sat by Pulse Oximetry 99 95 96 Oxygen Delivery Method Room Air Room Air Room Air Oxygen Flow Rate (LPM) Lab Data Lab Results 10/28/24 14:45: WBC 13.0 H, RBC 4.04 L, Hgb 8.9 L, Hct 29.2 L, MCV 72.2 L, MCH 22.0 L, MCHC 30.4 L, RDW 19.5 H, Plt Count 455 H, MPV 8.3, Neut % (Auto) 70.2, Lymph % (Auto) 22.3, [place] % (Auto) 5.2, Eos % (Auto) 1.7, Baso % (Auto) 0.6, Neut # (Auto) 9.1 H, Lymph # (Auto) 2.9, [place] # (Auto) 0.7, Eos # (Auto) 0.2, Baso # (Auto) 0.1, PT 13.1 H, INR 1.19 H, APTT 25.9, Sodium 138, Potassium 3.3 L, Chloride 102, Carbon Dioxide 23, Anion Gap 16.3 H, BUN 18 H, Creatinine 1.50 H, Estimated Creat Clear 52, Estimated GFR 35 L, Est GFR ( Amer) 42 L, Glucose 134 H, Lactate 3.7 H, Calcium 8.2 L, Total Bilirubin 1.0, AST 31, ALT 20, Alkaline Phosphatase 118, Troponin I < 0.01, NT-Pro-B Natriuret Pep 3830 H, Total Protein 7.1, Albumin 4.0, Globulin 3.1, Albumin/Globulin Ratio 1.3, Lipase 125, HIV 1&2 Antibody Rapid Nonreactive 10/28/24 15:34: Blood Type B Positive, Antibody Screen Negative 10/28/24 16:33: Urine Color Yellow, Urine Appearance Clear, Urine pH 5.5, Ur Specific [place] 1.015, Urine Protein Negative, Urine Glucose (UA) Negative, Urine Ketones Negative, Urine Blood Negative, Urine Nitrate Negative, Urine Bilirubin Negative, Urine Urobilinogen 0.2, Ur Leukocyte Esterase Negative, Urine RBC Occasional, Urine WBC Occasional, Ur Squamous Epith Cells 3-5, Urine Bacteria 1+, Hyaline Casts Occasional, Urine Mucus 1+ Orders (Tests/Meds): ED MEDICATIONS Generic Name Dose Route Start Last Admin Trade Name Freq PRN Reason Stop Dose Admin Acetaminophen 650 mg 10/28/24 18:20 Acetaminophen 325mg Tab PO 11/27/24 18:19 Q4HP PRN Fever or Mild Pain (1-3) Lactated Ringer's 1,000 mls @ 999 mls/hr 10/28/24 18:26 Lactated Ringer's 1000 Ml Bag IV 10/28/24 19:26 .Q1H1M ONE Misoprostol 400 mcg 10/28/24 18:30 Misoprostol 200 Mcg Tablet PO 11/27/24 18:29 Q6H CRISTOPHER Ondansetron HCl 4 mg 10/28/24 18:20 Ondansetron 4mg/2ml Vial IV 11/27/24 18:19 Q4H PRN Nausea Pantoprazole Sodium 40 mg 10/28/24 21:00 Pantoprazole 40mg Vial IV 11/27/24 20:59 BID CRISTOPHER Sodium Chloride 10 ml 10/28/24 17:26 Sodium Chloride 0.9% 10ml Vial IV 11/27/24 17:25 NEEDED PRN dilute protonix Discontinued Medications Generic Name Dose Route Start Last Admin Trade Name Freq PRN Reason Stop Dose Admin Sodium Chloride 1,000 mls @ 999 mls/hr 10/28/24 15:13 10/28/24 15:16 Sod Chlor 0.9% 1000ml Bag IV 10/28/24 16:13 999 mls/hr .Q1H1M ONE Administration Iopamidol 80 ml 10/28/24 16:08 10/28/24 16:10 Iopamidol-370 (76%);100ml Bottle IV 10/28/24 16:09 80 ml ONCE ONE Administration Morphine Sulfate 4 mg 10/28/24 14:39 10/28/24 14:51 Morphine 4mg/Ml Syringe IV 10/28/24 14:40 4 mg ONCE ONE Administration Morphine Sulfate 4 mg 10/28/24 17:10 10/28/24 17:17 Morphine 4mg/Ml Syringe IV 10/28/24 17:11 4 mg ONCE ONE Administration Pantoprazole Sodium 40 mg 10/28/24 17:26 10/28/24 17:36 Pantoprazole 40mg Vial IV 10/28/24 17:27 40 mg ONCE ONE Administration Promethazine HCl 12.5 mg 10/28/24 14:39 10/28/24 14:51 Promethazine Hcl 25mg/Ml 1ml Vial IV 10/28/24 14:40 12.5 mg ONCE ONE Administration Sodium Chloride 25 ml 10/28/24 14:39 10/28/24 14:51 Sodium Chloride 0.9% 25ml Bag IV 10/28/24 14:40 25 ml ONCE ONE Administration Sodium Chloride 50 ml 10/28/24 16:08 10/28/24 16:10 0.9 % Sodium Chloride 50 Ml Vial IV 10/28/24 16:09 50 ml ONCE ONE Administration Sodium Chloride 10 ml 10/28/24 16:08 10/28/24 16:10 Sodium Chloride 0.9% 10ml Syr (Rad Only) IV 10/28/24 16:09 10 ml ONCE ONE Administration ORDERS Category Date Time Status Type and Screen Stat BBK 10/28/24 15:34 Completed Type and Screen Stat BBK 10/28/24 18:[address] angio abdomen pelvis Stat Cat Scan 10/28/24 14:39 Completed Gastroenterology Consult [Consult to Gastroenterology] Cons 10/28/24 18:20 Active [CONS] Routine XR chest portable Stat Exams 10/28/24 14:40 Completed Complete Blood Count Auto Diff AMLAB Lab 10/29/24 06:00 Ordered Complete Blood Count Auto Diff AMLAB Lab 10/30/24 06:00 Ordered Complete Blood Count Auto Diff AMLAB Lab 10/31/24 06:00 Ordered Complete Blood Count Auto Diff AMLAB Lab 11/01/24 06:00 Ordered Complete Blood Count Auto Diff AMLAB Lab 11/02/24 06:00 Ordered Complete Blood Count Auto Diff Stat Lab 10/28/24 14:45 Completed Comprehensive Metabolic Panel AMLAB Lab 10/29/24 06:00 Ordered Comprehensive Metabolic Panel AMLAB Lab 10/30/24 06:00 Ordered Comprehensive Metabolic Panel AMLAB Lab 10/31/24 06:00 Ordered Comprehensive Metabolic Panel AMLAB Lab 11/01/24 06:00 Ordered Comprehensive Metabolic Panel AMLAB Lab 11/02/24 06:00 Ordered Comprehensive Metabolic Panel Stat Lab 10/28/24 14:45 Completed Diarrhea 6-11 Panel, Cdiff PCR Stat Lab 10/28/24 14:47 Ordered HIV (1&2) Antibody Rapid Stat Lab 10/28/24 14:45 Completed Hemoglobin and Hematocrit Stat Lab 10/28/24 21:00 Ordered Hep C Ab with Reflex to RNA Stat Lab 10/28/24 14:45 Received Lactic Acid Stat Lab 10/28/24 14:45 Completed Lipase Stat Lab 10/28/24 14:45 Completed Magnesium AMLAB Lab 10/29/24 06:00 Ordered NT Pro Brain Natriuretic Pep. Stat Lab 10/28/24 14:45 Completed PT INR [Prothrombin Time INR] Stat Lab 10/28/24 14:45 Completed PTT [Activated Partial Thrombo Time] Stat Lab 10/28/24 14:45 Completed Troponin I Q3H Lab 10/28/24 20:45 Ordered Troponin I Stat Lab 10/28/24 14:45 Completed Urinalysis and Microscopic Stat Lab 10/28/24 16:33 Completed Medical Decision Narrative: 64-year-old female history of hypertension, hyperlipidemia, paroxysmal A-fib on Xarelto, COPD on 2.5 L nasal cannula at home, obesity, CAD status post stenting presenting with bright red blood per rectum. Patient states that she has internal hemorrhoids and is being monitored by gastroenterology for this. States that she started having diarrhea 3 days prior to this that was nonbloody, not mucousy. No melena or hematochezia. Today, 10/28, while she was at lunch, states that she had crampy lower abdominal pain and went to the bathroom. Had bowel movement, states that she filled up the toilet bowl with blood. States that it was bright red. No syncope, chest pain, shortness of breath, lightheadedness, or any other associated symptoms. History was obtained via conversation with patient and EMS. On arrival, patient hemodynamically stable, alert, oriented x4, appropriate, GCS 15, moving all extremities spontaneously, pupils equal and reactive to light. Full physical exam performed and significant for anxious appearing female no acute distress. Abdomen is soft, nontender, nondistended. Mildly tachycardic 105 to 110 bpm. Cardiopulmonary exam within normal limits. Differential includes internal hemorrhoid, diverticular bleed, enteritis, colitis, malignancy, infectious, among others. Patient placed on continuous cardiac monitoring and continuous pulse ox with initial blood pressure 103/66, heart rate 110, saturation 97% on 3 L nasal cannula. Independent interpretation of EKG shows A-fib RVR 101 bpm with narrow QRS at 89 ms, QTc 426. Normal axis. T wave inversions in V2 through V5 without reciprocal change. Patient was given Phenergan and morphine for symptomatic management and correction of underlying abnormalities. Workup including labs and imaging pending at time of handoff to oncoming physician. [facility] [place] disclaimer Much of this encounter note is an electronic education courses sales representative spoken language to printed text. Electronic education courses sales representative of the spoken language may permit errors. Although I have reviewed the note, some errors may still exist. Nicolas Armendariz: Upon assumption of care patient was tachycardic but mentating appropriately and acceptable hemodynamics. Upon my questioning patient has had multiple bowel movements over the last 3 days that have been dark black however she has had a bright red bowel movement today that was nearly all blood. Workup thus far reviewed by me she has a hemoglobin of 8.9 and has chronic anemia this is actually better than her baseline, INR 1.19 does not really contribute to this picture given that she takes a direct oral anticoagulant her creatinine is 1.5 with a baseline of normal that is being volume resuscitated with crystalloid and may be confounded by the fact that she has history of cocaine abuse last used 3 to 4 days ago may be in mild withdrawal. CTA pending initial troponin undetectably low urinalysis interpreted by me and not consistent with infection. Differential including upper and lower GI bleed without cirrhosis I will start patient on IV PPI. Upon repeat assessment patient had resolving tachycardia no longer tachypneic. CTA informally visualized by me there appears to be blush in her pelvis. Patient is not having multiple bloody bowel movements in the emergency department is hemodynamically stable will wait for formal read at this time. I discussed case with radiology there is questionable blush in the sigmoid colon and is hard to tell due to incomplete radiology protocol. However this is consistent with patient's findings clinically. After 1 L crystalloid resuscitation patient's heart rate was in the 90s to low 100s. I discussed case with GI who agrees the patient is appropriate for management at this facility. I subsequently discussed the case with hospital medicine who made the patient their service for continued evaluation at this time. Critical Care <José Luis Hadley MD - Last Filed: 10/28/24 14:49> Critical Care Time Critical Care Time: No
--- NOTE | 2024-10-28 14:39 | CT_ITS ---
PROCEDURE INFORMATION: Exam: CTA Abdomen and Pelvis With Contrast Exam date and time: 10/28/2024 3:41 PM Age: 64 years old Clinical indication: Other: Crampy pain; Additional info: Brbpr large clots, crampy pain TECHNIQUE: Imaging protocol: Computed tomographic angiography of the abdomen and pelvis with contrast. Exam focused on the arteries. 3D rendering (Not supervised by radiologist): MIP and/or 3D reconstructed images were created by the technologist. Radiation optimization: All CT scans at this facility use at least one of these dose optimization techniques: automated exposure control; mA and/or kV adjustment per patient size (includes targeted exams where dose is matched to clinical indication); or iterative reconstruction. Contrast material: [id number]; Contrast volume: 80 ml; Contrast route: INTRAVENOUS (IV); COMPARISON: CT ABDOMEN PELVIS W CON 05/10/2024 6:41 PM FINDINGS: Lungs: There is a 5.3 mm subpleural nodule in the left lower lobe seen on series 1003, image 100.There is minor elevation of the right hemidiaphragm. Minor centrilobular emphysematous changes are present. Minor scattered subpleural reticulation and peripheral interlobular septal thickening raises the question of minor interstitial fibrosis, unchanged . Pleural spaces: There are no pleural effusions. Heart: The visualized portions of the heart are unremarkable. There is no evidence of pericardial fluid collections. Reflux of contrast into the intrahepatic IVC and hepatic veins suggesting tricuspid regurgitation or right heart dysfunction. Aorta: There is no evidence of aortic dissection, leak, rupture, or other acute vascular pathology. The aorta and iliac arteries demonstrate moderate atherosclerotic calcification. There is mild aneurysmal dilatation of the infrarenal abdominal aorta, originating below the level of the renal artery origins and terminating above the level of the aortic bifurcation. This measures approximately 1.8 x 1.8 cm in maximum distension. Celiac trunk and mesenteric arteries: No significant stenosis involving the celiac or SMA arteries. The MATA is patent. Renal arteries: No significant renal artery stenosis. Right iliac arteries: There is mild narrowing of the proximal right common iliac artery. There is minor post stenotic dilatation measuring approximately 13 mm. Left iliac arteries: No occlusion or significant stenosis. Veins: There are a few benign phleboliths in the pelvis. Liver: There is diffuse decrease in hepatic/liver parenchymal density consistent with fatty infiltration. The liver is at the upper limits of normal measuring 18 cm in cc dimension. Gallbladder and biliary ducts: There has been a cholecystectomy. There is a mild, expected degree of common bile duct dilation. Pancreas: There is diffuse atrophy of the pancreatic parenchyma. Spleen: The spleen demonstrates punctate calcifications, consistent with remote granulomatous organism exposure. Adrenal glands: The adrenal glands are normal. Kidneys and ureters: There is a right renal cyst measuring 3.2 cm. The kidneys are otherwise within range of normal. Stomach and bowel: Lack of gastrointestinal contrast limits evaluation of bowel. There is a moderate degree of residual ingested material within the stomach. The stomach is otherwise within range of normal. The duodenum is unremarkable. Moderate diverticulosis is present in the distal colon. No evidence of diverticulitis. There is a small focus of increased density in the mid to distal sigmoid colon on the arterial phase of imaging best seen on series 5, image [id number]. This is of uncertain clinical significance as precontrast and delayed images were not obtained. Study quality is limited in the evaluation of GI bleeding due to study limited to only the arterial phase of contrast administration. No delayed, noncontrast or portal venous phase images were obtained. The study was protocoled by the radiology department in the [facility] prior sending for interpretation. The proximal small bowel appears within range of normal. There is mild fluid-filled distension involving a few loops of mid small bowel. The distal ileum resumes normal caliber without discrete transition zone. Appendix: No evidence of appendicitis. Intraperitoneal space: There is no evidence of free intraperitoneal or pelvic fluid. No free air. Lymph nodes: There is no evidence of pathologic adenopathy. Urinary bladder: The bladder is normal. Reproductive: The uterus is either atrophic or absent. No adnexal masses. Bones/joints: The thoracolumbar spine demonstrates moderate degenerative changes at multiple levels. There is slight retrolisthesis of L5 on S1. There is no evidence of acute fracture. Postoperative changes are stable involving the right sacroiliac joint. Moderate to advanced degenerative changes involving the right hip are stable. Mild degenerative changes involve the left hip and symphyseal pubic joint. Soft tissues: There is a small fat-containing umbilical hernia. There is a tiny supraumbilical midline ventral hernia approximately 5 mm above the umbilical hernia. A pain pump is present in the subcutaneous fat of the right back with the lead entering the spinal canal at the approximately L5-S1 level and terminating at the T11-12 level. A few injection granulomata are present in the gluteal soft tissues bilaterally. IMPRESSION: 1. [id number] colonic diverticulosis without evidence of diverticulitis. 2. Small focus of increased density in the mid to distal sigmoid colon on the arterial phase of imaging. This is of uncertain clinical significance as precontrast and delayed images were not obtained. Cannot exclude a small focus of acute bleeding versus residual ingested material. Correlate clinically. 3. Mild fluid-filled distension involving a few loops of mid small bowel with resumption of normal caliber involving the distal small bowel without discrete transition zone. Findings may reflect mild low-grade ileus or enteritis. Correlate clinically. 4. Mild aneurysmal dilatation of the infrarenal abdominal aorta measuring approximately 18 x 18 mm in maximal distension. 5. Mild narrowing of the proximal right common iliac artery with minor post stenotic dilatation. 6. Fatty hepatic infiltration. 7. Small fat-containing umbilical hernia
--- NOTE | 2024-10-28 14:40 | XR_ITS ---
PROCEDURE INFORMATION: Exam: XR Chest Exam date and time: 10/28/2024 3:44 PM Age: 64 years old Clinical indication: Shortness of breath and other: Abd pain, vomiting TECHNIQUE: Imaging protocol: Radiologic exam of the chest. Views: 1 view. COMPARISON: CT CHEST WO CON 08/22/2024 6:25 PM FINDINGS: Tubes, catheters and devices: Right IJ central venous catheter is present, distal tip overlying the approximate location of the atrial caval junction. Lungs: Lung volumes are mildly diminished. A few minimally increased markings are present in the lung bases which appear stable and likely reflect parenchymal scarring. No new focal areas of consolidation. Pleural spaces: No pleural effusions. Negative for pneumothorax. Heart/Mediastinum: Pulmonary vasculature is within range of normal. The heart is mildly enlarged, unchanged. Bones/joints: There is no evidence of acute fracture. A few remote rib fractures on the right are stable. Calcific tendinitis involves the right shoulder. Mild degenerative changes involve both shoulders and right AC joint. IMPRESSION: 1. Negative for an acute cardiopulmonary abnormality. Stable chest radiograph. 2. Mild stable cardiomegaly.
--- NOTE | 2024-10-28 14:47 | ECG_ITS ---
APPROVED REPORT Exam: Resting ECG HR:101 bpm ECG Measurements Heart Rate 101 AXES QRSd 89 QRS 76 QT 368 T 93 QTc 426 Conclusion ATRIAL FIBRILLATION WITH RAPID VENTRICULAR RESPONSE ST DEVIATION AND MODERATE T-WAVE ABNORMALITY, CONSIDER ANTERIOR ISCHEMIA [-0.1+ mV T-WAVE IN V3/V4] ABNORMAL ECG UNCONFIRMED REPORT Electronically signed by : KIN DILLARD, 10/29/2024 06:21:45
[2024-10-28] MEDS: MORPHINE 4MG/ML SYRINGE 4 MG IV ×2 (14:51→17:17)
[2024-10-28] MEDS: SODIUM CHLORIDE 0.9% 25ML BAG 25 ML IV (14:51)
[2024-10-28] MEDS: PROMETHAZINE HCL 25MG/ML 1ML VIAL 12.5 MG IV (14:51)
[2024-10-28 14:57] LABS: Basophils # 0.1 K/mm3 (0-0.2); Basophils % 0.6 % (0.1-2.0); Eosinophils # 0.2 K/mm3 (0.0-0.4); Eosinophils % 1.7 % (0.1-12.0); Hematocrit 29.2 % (37.0-47.0); Hemoglobin 8.9 g/dL (12.2-16.2); Lymphocytes # 2.9 K/mm3 (0.7-4.5); Lymphocytes % 22.3 % (10-50); Mean Corpuscular HGB Conc 30.4 g/dL (31.8-35.4); Mean Corpuscular Volume 72.2 fl (81-99); Mean Platelet Volume 8.3 fl (7.4-10.4); Monocytes # 0.7 K/mm3 (0.1-1.0); Monocytes % 5.2 % (1.7-9.3); Neutrophils # 9.1 K/mm3 (1.8-7.8); Neutrophils % 70.2 % (37.0-80.0); Platelet Count 455 K/mm3 (142-424); Red Blood Count 4.04 M/mm3 (4.20-5.40); Red Cell Distribution Width 19.5 % (11.5-17.5)
[2024-10-28 15:05] LABS: Chloride 102 mmol/L (98-107); Potassium 3.3 mmoL/L (3.5-5.1); Sodium 138 mmol/L (136-145)
[2024-10-28 15:07] LABS: Alanine Aminotransferase 20 U/L (12-78); Alkaline Phosphatase 118 U/L (38-126); Anion Gap 16.3 mEq/L (5-15); Aspartate Amino Transferase 31 U/L (14-36); Blood Urea Nitrogen 18 mg/dl (7-17); Carbon Dioxide 23 mmol/L (22.0-30.0); Creatinine Clearance Estimated 52 mL/min (50-200); Estimated Glomerular Filt Rate 35 ml/min (>60); GFR (African American) 42 ML/MIN (>60)
[2024-10-28 15:08] LABS: Albumin/Globulin Ratio 1.3 (1.1-1.8); Calcium 8.2 mg/dl (8.4-10.2); Globulin 3.1 g/dL (1.3-3.2); Glucose 134 mg/dl (74-100); Lipase 125 U/L (23-300); Total Protein,Serum 7.1 g/dl (6.3-8.2)
[2024-10-28 15:10] LABS: Lactic Acid 3.7 mmol/L (0.7-2.1)
[2024-10-28 15:15] LABS: INR 1.19 (0.9-1.1); Prothrombin Time 13.1 seconds (10.1-12.5)
[2024-10-28] MEDS: 0.9 % SODIUM CHLORIDE 1000ML 1,000 ML 999 ML IV (15:16)
[2024-10-28 15:17] LABS: NT Pro Brain Natriuretic Pep. 3830 pg/mL (0-125)
[2024-10-28 15:18] LABS: Activated Partial Thrombo Time 25.9 seconds (22.8-30.6)
[2024-10-28 15:25] LABS: Troponin I < 0.01 ng/ml (0.00-0.034)
--- NOTE | 2024-10-28 15:40 | PC.NURSE ---
pt going to ct
[2024-10-28] MEDS: 0.9 % SODIUM CHLORIDE 50 ML VIAL IV (16:10)
[2024-10-28] MEDS: SODIUM CHLORIDE 0.9% 10ML SYR (RAD ONLY) 10 ML IV (16:10)
[2024-10-28] MEDS: IOPAMIDOL-370 (76%);100ML BOTTLE 80 ML IV (16:10)
[2024-10-28 16:40] LABS: Microscopic, Urine URINE MICROSCOPIC (MICROSCOPIC)
[2024-10-28 16:41] LABS: Appearance,Urine CLEAR (Clear); Bilirubin,Urine Negative (Negative); Blood, Urine Negative (Negative); Color,Urine YELLOW (Yellow); Glucose,Urine (UA) Negative (Negative); Ketones,Urine Negative (Negative); Leukocyte Esterase,Urine Negative (Negative); Nitrate,Urine Negative (Negative); PH,Urine 5.5 (5.0-8.5); Protein,Urine Negative (Negative); Specific Gravity, Urine 1.015 (1.005-1.030); Urobilinogen,Urine 0.2 EU/dl (0.2)
[2024-10-28 16:41] LABS: HIV (1&2) Antibody Rapid NONREACTIVE (NONREACTIVE)
--- NOTE | 2024-10-28 16:47 | PC.NURSE ---
Lights turned off and pt is resting in bed no needs at this time
[2024-10-28 16:52] LABS: RBC,Urine Occasional #/hpf (0-3); WBC,Urine Occasional #/hpf (0-3)
[2024-10-28 16:53] LABS: Bacteria,Urine 1+ /lpf; Hyaline Casts,Urine Occasional #/lpf (0); Mucus,Urine 1+ /lpf
[2024-10-28] MEDS: PANTOPRAZOLE 40MG VIAL 40 MG IV ×2 (17:36→21:52)
[2024-10-28] MEDS: LACTATED RINGERS 1000ML 1,000 ML 999 ML IV (18:30)
[2024-10-28 18:52] LABS: Reflex Lactic Add Lactic Reflex
--- NOTE | 2024-10-28 19:08 | PC.NURSE ---
report called to mary eisenberg
--- NOTE | 2024-10-28 19:54 | P.HP_ITS ---
<Statement entered by Alan Corcoran MD - 10/30/24 17:42> I personally evaluated patient and agree with the plan of care as outlined by the LAND TITLE EXAMINER. History of Present Illness *Admission Date: 10/28/24 *Reason for visit:: BRBPR, diarrhea, abdominal pain *History of present illness: Linda Arteaga is a 64-year-old female past medical history significant for A-fib on Xarelto, chronic anemia, RLS, CAD status post stenting on Brilinta, HTN, COPD on 2 L nasal cannula at baseline, depression who presents emergency room tonight with complaints of BRBPR and diarrhea. Ms. Arteaga states she got her flu/covid shot last week and has felt under the weather since then. Reports multiple episodes of diarrhea over the last week or so. States today she had 2 episodes of bright red blood in her diarrhea. She tells me that she has internal hemorrhoids and that her GI physicians (Dr. Arenas) stated they might have to intervene on them eventually. She had a colonoscopy done in March of this year, it was reported stable. She also had an EGD done at the same time and had her esophagus stretched. Is on xarelto and brilinta. Wears 2L NC at baseline. Denies any cough, fever, chest pain, shortness of breath, abdominal pain. No recent weight gain or weight loss, no swelling in her legs or feet. Denies tobacco use, alcohol use, illicit drug use. Lab work in the ER showed an elevated white count of 13,000, H&H chronically low but apparently stable at 8.9 and 29. Potassium a bit low at 3.3, BUN and creatinine slightly elevated at 18 and 1.5, baseline creatinine around 1.2. Lactic acid initially elevated at 3.7. BNP elevated at 3830. CXR was nonactionable. CTA fo the abdomen pelvis showed mild to moderate colonic diverticulosis without diverticulitis, questionable small focus of acute bleeding versus artifact in the mid to distal sigmoid colon, findings consistent with low-grade ileus versus enteritis, would favor enteritis as patient has had nausea and diarrhea for the last week or so. She was given an IV fluid bolus and PPI. GI was consulted, agreed to see the patient in consult. She will be admitted to the hospitalist service for lower GI bleed and ALYSE. [facility] Disclaimer: The information contained in this section may have been updated after the patient was seen, as this information can be updated by other users. Medical History (Updated 10/28/24 @ 20:30 by Maura Whitaker APRN) Tobacco dependence in remission Pancreas divisum of [place] pancreas Encounter for pre-operative cardiovascular clearance Orthopnea CHF (congestive heart failure) Pancreatitis Nausea vomiting and diarrhea Exhausted vascular access Rib fractures Chronic hypoxemic respiratory failure Coronary artery disease COPD (chronic obstructive pulmonary disease) HLD (hyperlipidemia) Diabetes Anxiety and depression TIA (transient ischemic attack) History of stroke History of multiple cerebrovascular accidents (CVAs) History of class III angina pectoris Typical angina Dyspnea History of pancreatitis History of CVA (cerebrovascular accident) Surgical History History of biliary duct stent placement History of hysterectomy History of cholecystectomy History of coronary artery stent placement Family History Other Family history of cancer Family history of diabetes mellitus Social History Smoking Status: Former smoker tobacco type: cigarettes packs per day: 1 second hand exposure: No alcohol intake: never counseling provided: none substance use type: marijuana and crack/cocaine current occupational status: disabled and other household members: spouse housing: house number of children: 2 current occupational exposures/hazards: No caffeine: Yes Other Medical History Have you received the Flu Vaccine for this season: No Have you received the Pneumonia Vaccine: No Review of Systems Review of Systems Review of systems:: pertinent systems reviewed and negative unless documented below Constitutional Constitutional: Reports poor appetite and Reports malaise *Gastrointestinal Gastrointestinal: Reports diarrhea and Reports hematochezia Meds Home Medications and Allergies Home Medications ?Medication ?Instructions ?Recorded ?Confirmed ?Type isosorbide mononitrate 30 mg 30 mg PO DAILY 10/24/21 09/21/24 History tablet,extended release 24 hr albuterol sulfate 2.5 mg/3 mL 2.5 mg inhalation Q6H 04/01/23 09/21/24 History (0.083 %) solution for nebulization omeprazole 40 mg capsule,delayed 40 mg PO DAILY 04/08/23 09/21/24 History release nitroglycerin 0.4 mg sublingual 0.4 mg sublingual Q5MINP PRN chest 07/13/23 09/21/24 History tablet pain losartan 50 mg tablet 50 mg PO DAILY #90 tabs 11/06/23 09/21/24 Rx montelukast 10 mg tablet 10 mg PO HS 03/17/24 09/21/24 History rivaroxaban 20 mg tablet 20 mg PO QPMWITHMEAL 03/17/24 09/21/24 History ropinirole 0.25 mg tablet 0.25 mg PO HS #30 tabs 03/22/24 09/21/24 Rx atorvastatin 40 mg tablet 40 mg PO HS #90 tabs 04/08/24 09/21/24 Rx conjugated estrogens 0.3 mg tablet 0.3 mg PO DAILY #30 tabs 05/24/24 09/21/24 Rx triamcinolone acetonide 0.1 % 1 applic topical QID #30 grams 05/29/24 09/21/24 Rx topical ointment albuterol sulfate 90 mcg/actuation 2 inh inhalation Q4HP PRN 06/14/24 09/21/24 Rx aerosol inhaler Shortness Of Breath Or Wheezing #6.7 grams gabapentin 600 mg tablet 600 mg PO BID #60 tabs 06/16/24 09/21/24 Rx alprazolam 1 mg tablet 1 mg PO TIDP PRN Anxiety 08/22/24 09/21/24 History levothyroxine 100 mcg tablet 100 mcg PO DAILYDM 08/22/24 09/21/24 History metformin 1,000 mg tablet 1,000 mg PO BIDWMEAL 08/22/24 09/21/24 History metoprolol succinate 50 mg 50 mg PO DAILY 08/22/24 09/21/24 History tablet,extended release 24 hr quetiapine 50 mg tablet 50 mg PO HS 08/22/24 09/21/24 History ticagrelor 90 mg tablet (Brilinta) 90 mg PO BID 08/22/24 09/21/24 History trazodone 100 mg tablet 100 mg PO HS 08/22/24 09/21/24 History diltiazem HCl 180 mg 180 mg PO DAILY #30 caps 08/23/24 09/21/24 Rx capsule,extended release 24 hr ranolazine 500 mg tablet,extended 500 mg PO BID 30 days #60 tabs 08/23/24 09/21/24 Rx release,12 hr furosemide 20 mg tablet 20 mg PO DAILY #30 tabs 09/03/24 09/21/24 Rx duloxetine 60 mg capsule,delayed 60 mg PO BID 90 days #180 caps 09/23/24 Rx release potassium chloride 10 mEq 10 meq PO DAILY #90 tabs 09/23/24 Rx tablet,extended release magnesium oxide 400 mg PO BID #180 tabs 10/15/24 Rx New Prescriptions to Start Prescriptions: Allergies Allergy/AdvReac Type Severity Reaction Status Date / Time codeine (CODEINE) Allergy Intermediate N/V Verified 09/21/24 11:49 ketorolac (KETOROLAC) Allergy Intermediate Hives Verified 09/21/24 11:49 meperidine (MEPERIDINE) Allergy Intermediate Hives Verified 09/21/24 11:49 tramadol (TRAMADOL) Allergy Intermediate Hives Verified 09/21/24 11:49 verapamil Allergy Mild Unknown Verified 09/21/24 11:49 allergy reaction ciprofloxacin AdvReac Severe Interacts Verified 09/21/24 11:49 with cymbalta Exam Data for Last 24 hours Vital signs and Labs for Last 24 Hours: Temp Pulse Resp BP Pulse Ox O2 Del Method O2 Flow Rate 97.8 F 98 H 14 102/68 L 98 Room Air 3 10/28/24 14:29 10/28/24 18:30 10/28/24 18:30 10/28/24 18:30 10/28/24 18:30 10/28/24 18:30 10/28/24 14:29 Laboratory Results - last 24 hr 10/28/24 14:45: WBC 13.0 H, RBC 4.04 L, Hgb 8.9 L, Hct 29.2 L, MCV 72.2 L, MCH 22.0 L, MCHC 30.4 L, RDW 19.5 H, Plt Count 455 H, MPV 8.3, Neut % (Auto) 70.2, Lymph % (Auto) 22.3, [place] % (Auto) 5.2, Eos % (Auto) 1.7, Baso % (Auto) 0.6, Neut # (Auto) 9.1 H, Lymph # (Auto) 2.9, [place] # (Auto) 0.7, Eos # (Auto) 0.2, Baso # (Auto) 0.1, PT 13.1 H, INR 1.19 H, APTT 25.9, Sodium 138, Potassium 3.3 L , Chloride 102, Carbon Dioxide 23, Anion Gap 16.3 H, BUN 18 H, Creatinine 1.50 H , Estimated Creat Clear 52, Estimated GFR 35 L, Est GFR ( Amer) 42 L, Glucose 134 H, Lactate 3.7 H, Calcium 8.2 L, Total Bilirubin 1.0, AST 31, ALT 20, Alkaline Phosphatase 118, Troponin I < 0.01, NT-Pro-B Natriuret Pep 3830 H, Total Protein 7.1, Albumin 4.0, Globulin 3.1, Albumin/Globulin Ratio 1.3, Lipase 125, HIV 1&2 Antibody Rapid Nonreactive 10/28/24 15:34: Blood Type B Positive, Antibody Screen Negative 10/28/24 16:33: Urine Color Yellow, Urine Appearance Clear, Urine pH 5.5, Ur Specific [place] 1.015, Urine Protein Negative, Urine Glucose (UA) Negative, Urine Ketones Negative, Urine Blood Negative, Urine Nitrate Negative, Urine Bilirubin Negative, Urine Urobilinogen 0.2, Ur Leukocyte Esterase Negative, Urine RBC Occasional, Urine WBC Occasional, Ur Squamous Epith Cells 3-5, Urine Bacteria 1+, Hyaline Casts Occasional, Urine Mucus 1+ I & O for Last 24 hours: Intake & Output 10/25/24 10/26/24 10/27/24 10/28/24 23:59 23:59 23:59 23:59 Weight 86.183 kg Constitutional Constitutional: no acute distress *Routine HEENT Exam Head: Present normocephalic Eye: Present EOMI and PERRL ENT: Present mucous membranes moist *Routine Neck Exam Neck: Present supple; Absent lymphadenopathy *Routine Respiratory Exam Respiratory: Present CTA bilaterally *Routine Cardiovascular Exam Cardiovascular: Present tachycardia, irregular rhythm and irregularly irregular Comments: A-fib, rate in the 110s *Routine Abdominal Exam Abdominal: Present soft and normoactive bowel sounds; Absent tenderness *Routine Rectal Exam Rectal:: deferred *Routine Genitalia Exam Genitalia:: deferred *Routine Extremities Exam Extremities: Absent cyanosis, clubbing or edema *Routine Skin Exam Skin: Present warm; Absent rash *Routine Neurological Exam Neurological: Present alert and oriented X3 Assessment and Plan *Assessment and plan (1) Chronic anemia: Status: Acute Category: Medical Code(s): D64.9 - Anemia, unspecified (2) GIB (gastrointestinal bleeding): Status: Acute Category: Medical Code(s): K92.2 - Gastrointestinal hemorrhage, unspecified (3) PAF (paroxysmal atrial fibrillation): Status: Acute Category: Medical Code(s): I48.0 - Paroxysmal atrial fibrillation (4) COPD (chronic obstructive pulmonary disease): Status: Chronic Qualifiers: COPD type: unspecified COPD Qualified Code(s): J44.9 - Chronic obstructive pulmonary disease, unspecified Category: Medical Code(s): J44.9 - Chronic obstructive pulmonary disease, unspecified (5) Hypertension: Status: Chronic Qualifiers: Hypertension type: essential hypertension Qualified Code(s): I10 - Essential (primary) hypertension Category: Medical Code(s): I10 - Essential (primary) hypertension (6) Hyperlipidemia: Status: Chronic Qualifiers: Hyperlipidemia type: mixed hyperlipidemia Qualified Code(s): E78.2 - Mixed hyperlipidemia Category: Medical Code(s): E78.5 - Hyperlipidemia, unspecified (7) Coronary artery disease: Status: Chronic Qualifiers: Coronary Disease-Associated Artery/Lesion type: [place] artery [place] vs. transplanted heart: [place] heart Associated angina: without angina Qualified Code(s): I25.10 - Atherosclerotic heart disease of [place] coronary artery without angina pectoris Category: Medical Code(s): I25.10 - Atherosclerotic heart disease of [place] coronary artery without angina pectoris (8) Diabetes mellitus: Status: Chronic Qualifiers: Diabetes mellitus type: type 2 Diabetes mellitus terminal manager insulin use: without terminal manager use Diabetes mellitus complication status: without complication Qualified Code(s): E11.9 - Type 2 diabetes mellitus without complications Category: Medical Code(s): E11.9 - Type 2 diabetes mellitus without complications (9) ALYSE (acute kidney injury): Status: Acute Category: Medical Code(s): N17.9 - Acute kidney failure, unspecified Plan Assessment: This is a 64-year-old female being admitted for lower GI bleed and ALYSE. On my exam, patient is lying in bed in no acute distress. On her baseline 2 L nasal cannula. Complaining of some lower abdominal cramping. Plan: Admit to observation-stepdown Lower GI bleed BRBPR Diarrhea/enteritis? Chronic anemia -Has not had a bloody bowel movement since being in the ER -N.p.o. at midnight, bowel prep ordered by GI -GI consult -Pain management as needed -Patient received 1 L IV fluid bolus, will hold off on the second bolus as her BNP is slightly elevated -Patient was type and screen, transfuse for hemoglobin less than 7 -Continue PPI -Holding Xarelto and Brilinta tonight -Repeat lactic acid ALYSE -Likely prerenal from several days of diarrhea -Patient received 1 L IV fluid bolus, will recheck renal function in the morning, withholding any additional fluids as BNP slightly elevated -Avoid nephrotoxic medications -Monitor serum BUN and creatinine CAD status post PCI A-fib Elevated BNP -Patient saw Dr. Torres in Aug, had a cath in 2019 and was recommended to continue medical management -Continue statin, beta-clifton, diltiazem -Holding Brilinta and Xarelto for now until cleared by GI -Echo done in August showed normal biventricular systolic function, no regional wall abnormalities noted, no significant valvular stenosis or regurg, Chronic hypoxic respiratory failure COPD without exacerbation -Patient on baseline home O2 needs at 2 L nasal cannula -Maintain SpO2 greater than 90% -DuoNebs as needed Anxiety Depression -Continue alprazolam as needed -Continue duloxetine Type 2 diabetes -Holding metformin while in the hospital -SSI for glycemic control -A1c -Last A1c done in March was 6.1 Hypothyroid -Continue Synthroid HTN -Holding losartan in light of ALYSE, continue beta-clifton, CCB RLS -Continue ropinirole DVT prophylaxis: SCDs CODE STATUS: Full code Surrogate decision maker: Carolina [phone] Skin: Low risk Estimated length of stay: Less than 2 midnights
--- NOTE | 2024-10-28 20:00 | PC.NURSE ---
room is being cleaned and patient will stay in ED until transport to floor is possible
[2024-10-28 20:36] LABS: Barbiturates Screen,Urine Negative ng/ml (<200)
[2024-10-28 20:37] LABS: Amphetamine/Metha Screen,Urine Negative ng/ml (<1000); Benzodiazepines Screen,Urine Negative ng/ml (<200)
[2024-10-28 20:38] LABS: Cannabinoid Screen,Urine Positive ng/ml (<50); Cocaine Screen,Urine Positive ng/ml (<300)
[2024-10-28 20:39] LABS: Methadone Screen,Urine Negative ng/ml (<300)
[2024-10-28 20:40] LABS: Opiate Screen,Urine Positive ng/ml (<300); Phencyclidine Screen,Urine Negative ng/ml (<25)
[2024-10-28 21:09] LABS: Hematocrit 25.4 % (37.0-47.0)
[2024-10-28 21:22] LABS: Lactic Acid Follow Up (RFLX 1) 2.2 mmol/L (0.7-2.1)
[2024-10-28 21:29] LABS: Troponin I < 0.01 ng/ml (0.00-0.034)
[2024-10-28] MEDS: PEG-ELECTROLYTE SOLN 4000ML BOTTLE 2000 ML PO (21:50)
[2024-10-28] MEDS: MONTELUKAST SODIUM 10MG TAB 10 MG PO (21:51)
[2024-10-28] MEDS: RANOLAZINE 500MG ER TABLET 500 MG PO (21:51)
[2024-10-28] MEDS: ATORVASTATIN 40MG TABLET 40 MG PO (21:51)
[2024-10-28] MEDS: PATIENT'S OWN HOME MEDICATION (Quetiapine 50 mg tablet) 50 EACH PO (21:52)
[2024-10-28] MEDS: ALPRAZolam 1MG TABLET 0.5 MG PO (21:53)
[2024-10-28] MEDS: OXYCODONE 5MG W/APAP 325MG TABLET 1 EACH PO (21:54)
[2024-10-28] MEDS: miSOPROStoL 200 MCG TABLET 400 MCG PO (22:00)
[2024-10-28] MEDS: GABAPENTIN 600MG TABLET 600 MG PO (22:01)
[2024-10-28 23:02] LABS: Reflex Lactic (2 hrs) Add Lactic Reflex
[2024-10-28 23:39] LABS: Lactic Acid Follow up (RFLX 2) 1.4 mmol/L (0.7-2.1)
[2024-10-29] VITALS (26 sets, daily range): BP systolic 82–131; BP diastolic 47–89; PULSE 73–100; RESP 12–19; TEMP 36.6–36.7; O2SAT 87–100; BMI 32.5
--- NOTE | 2024-10-29 00:39 | PC.NURSE ---
Pt has been encouraged to drink golytely by staff multiple times since administration. Pt states she is unable to drink fast due to taste and texture. Will continue to encourage pt to drink it.
[2024-10-29] MEDS: miSOPROStoL 200 MCG TABLET 400 MCG PO ×2 (04:06→10:39)
--- NOTE | 2024-10-29 04:41 | PC.NURSE ---
Pt encouraged to drink bowel prep this AM. Pt continuously falling asleep as soon as sipping from straw leaving prep in mouth without swallowing. Did this continuously while being directed by staff multiple times. Bowel prep at bedside. Pt unable to drink safely at this time.
[2024-10-29 06:04] LABS: Basophils # 0.1 K/mm3 (0-0.2); Basophils % 0.9 % (0.1-2.0); Eosinophils # 0.4 K/mm3 (0.0-0.4); Eosinophils % 4.1 % (0.1-12.0); Hematocrit 26.6 % (37.0-47.0); Hemoglobin 7.7 g/dL (12.2-16.2); Lymphocytes # 3.2 K/mm3 (0.7-4.5); Lymphocytes % 37.2 % (10-50); Mean Corpuscular HGB Conc 28.8 g/dL (31.8-35.4); Mean Corpuscular Volume 72.8 fl (81-99); Mean Platelet Volume 7.2 fl (7.4-10.4); Monocytes # 0.4 K/mm3 (0.1-1.0); Monocytes % 4.7 % (1.7-9.3); Neutrophils # 4.6 K/mm3 (1.8-7.8); Neutrophils % 53.1 % (37.0-80.0); Platelet Count 382 K/mm3 (142-424); Red Blood Count 3.66 M/mm3 (4.20-5.40); Red Cell Distribution Width 19.4 % (11.5-17.5); White Blood Count 8.6 K/mm3 (4.8-10.8)
[2024-10-29 06:18] LABS: Alanine Aminotransferase 12 U/L (12-78); Albumin Level 3.3 g/dl (3.5-5.0); Albumin/Globulin Ratio 1.2 (1.1-1.8); Alkaline Phosphatase 92 U/L (38-126); Anion Gap 10.5 mEq/L (5-15); Aspartate Amino Transferase 22 U/L (14-36); Bilirubin,Total 0.7 mg/dl (0.2-1.3); Blood Urea Nitrogen 16 mg/dl (7-17); Calcium 7.8 mg/dl (8.4-10.2); Carbon Dioxide 28 mmol/L (22.0-30.0); Chloride 102 mmol/L (98-107); Creatinine Clearance Estimated 75 mL/min (50-200); Estimated Glomerular Filt Rate 50 ml/min (>60); GFR (African American) 61 ML/MIN (>60); Globulin 2.7 g/dL (1.3-3.2); Glucose 97 mg/dl (74-100); Magnesium 1.4 mg/dl (1.6-2.3); Potassium 3.5 mmoL/L (3.5-5.1); Sodium 137 mmol/L (136-145)
--- NOTE | 2024-10-29 06:22 | PC.NURSE ---
Pt remains very fatigued. Will awake easily to verbal stimuli. VSS. Unable to finsh bowel prep. PIPE COVERER HELPER made aware. Pt has tolerated home o2 2.5Lnc well with sat >90%. Bed alarm on for pt safety. Call light within reach.
--- NOTE | 2024-10-29 06:37 | PC.NURSE ---
Spoke with Dr. Lion, surgery team to be notified.
--- NOTE | 2024-10-29 07:53 | PC.NURSE ---
Pt off floor to get scope.
--- NOTE | 2024-10-29 07:55 | HMH.PHAINT1 ---
Pharmacy Intervention Comments: MEDICATION RECONCILIATION COMPLETED ON PATIENT USING EXTERNAL FILL HISTORY FROM PHARMACY AND LIST FROM CARDIOLOGY OFFICE. -ROÁMN DUNN, BOBBYD
[2024-10-29 08:23] LABS: Iron 32 ug/dL (37-170)
--- NOTE | 2024-10-29 08:25 | EXP.HP ---
History of Present Illness *Admission Date: 10/28/24 *History of present illness: Linda Arteaga is a 64-year-old female past medical history significant for A-fib on Xarelto, chronic anemia, RLS, CAD status post stenting on Brilinta, HTN, COPD on 2 L nasal cannula at baseline, depression who presents emergency room tonight with complaints of BRBPR and diarrhea. Ms. Arteaga states she got her flu/covid shot last week and has felt under the weather since then. Reports multiple episodes of diarrhea over the last week or so. States today she had 2 episodes of bright red blood in her diarrhea. She tells me that she has internal hemorrhoids and that her GI physicians (Dr. Arenas) stated they might have to intervene on them eventually. She had a colonoscopy done in March of this year, it was reported stable. She also had an EGD done at the same time and had her esophagus stretched. Is on xarelto and brilinta. Wears 2L NC at baseline. Denies any cough, fever, chest pain, shortness of breath, abdominal pain. No recent weight gain or weight loss, no swelling in her legs or feet. Denies tobacco use, alcohol use, illicit drug use. Lab work in the ER showed an elevated white count of 13,000, H&H chronically low but apparently stable at 8.9 and 29. Potassium a bit low at 3.3, BUN and creatinine slightly elevated at 18 and 1.5, baseline creatinine around 1.2. Lactic acid initially elevated at 3.7. BNP elevated at 3830. CXR was nonactionable. CTA fo the abdomen pelvis showed mild to moderate colonic diverticulosis without diverticulitis, questionable small focus of acute bleeding versus artifact in the mid to distal sigmoid colon, findings consistent with low-grade ileus versus enteritis, would favor enteritis as patient has had nausea and diarrhea for the last week or so. She was given an IV fluid bolus and PPI. GI was consulted, agreed to see the patient in consult. She will be admitted to the hospitalist service for lower GI bleed and ALYSE. [facility] Disclaimer: The information contained in this section may have been updated after the patient was seen, as this information can be updated by other users. Medical History (Updated 10/29/24 @ 08:27 by David Lion II, MD) Tobacco dependence in remission Pancreas divisum of [place] pancreas Encounter for pre-operative cardiovascular clearance Orthopnea CHF (congestive heart failure) Pancreatitis Nausea vomiting and diarrhea Exhausted vascular access Rib fractures Chronic hypoxemic respiratory failure Coronary artery disease COPD (chronic obstructive pulmonary disease) HLD (hyperlipidemia) Diabetes Anxiety and depression TIA (transient ischemic attack) History of stroke History of multiple cerebrovascular accidents (CVAs) History of class III angina pectoris Typical angina Dyspnea History of pancreatitis History of CVA (cerebrovascular accident) Surgical History History of biliary duct stent placement History of hysterectomy History of cholecystectomy History of coronary artery stent placement Family History Other Family history of cancer Family history of diabetes mellitus Social History (Updated 10/28/24 @ 23:02 by Kristi Mcleod RN) Smoking Status: Former smoker tobacco type: cigarettes packs per day: 1 second hand exposure: No alcohol intake: never counseling provided: none substance use type: marijuana and crack/cocaine current occupational status: disabled and other household members: significant other housing: house marital status: single number of children: 2 current occupational exposures/hazards: No caffeine: Yes Other Medical History Have you received the Flu Vaccine for this season: No Have you received the Pneumonia Vaccine: No Review of Systems Review of Systems Review of systems (narrative): Negative *Cardiovascular Comments: Negative *Gastrointestinal Comments: Negative *Genitourinary Comments: Negative *Musculoskeletal Comments: Negative *Neurologic Comments: Negative Meds Home Medications and Allergies Home Medications ?Medication ?Instructions ?Recorded ?Confirmed ?Type omeprazole 40 mg capsule,delayed 40 mg PO DAILY 04/08/23 10/28/24 History release nitroglycerin 0.4 mg sublingual 0.4 mg sublingual Q5MINP PRN chest 07/13/23 10/28/24 History tablet pain montelukast 10 mg tablet 10 mg PO HS 03/17/24 10/28/24 History rivaroxaban 20 mg tablet 20 mg PO QPMWITHMEAL 03/17/24 10/28/24 History ropinirole 0.25 mg tablet 0.25 mg PO HS #30 tabs 03/22/24 10/28/24 Rx atorvastatin 40 mg tablet 40 mg PO HS #90 tabs 04/08/24 10/28/24 Rx albuterol sulfate 90 mcg/actuation 2 inh inhalation Q4HP PRN 06/14/24 10/28/24 Rx aerosol inhaler Shortness Of Breath Or Wheezing #6.7 grams gabapentin 600 mg tablet 600 mg PO BID #60 tabs 06/16/24 10/28/24 Rx alprazolam 1 mg tablet 1 mg PO TIDP PRN Anxiety 08/22/24 10/28/24 History levothyroxine 100 mcg tablet 100 mcg PO DAILYDM 08/22/24 10/28/24 History metformin 1,000 mg tablet 1,000 mg PO BIDWMEAL 08/22/24 10/28/24 History metoprolol succinate 50 mg 50 mg PO DAILY 08/22/24 10/28/24 History tablet,extended release 24 hr quetiapine 50 mg tablet 50 mg PO HS 08/22/24 10/28/24 History ticagrelor 90 mg tablet (Brilinta) 90 mg PO BID 08/22/24 10/28/24 History trazodone 100 mg tablet 100 mg PO HS 08/22/24 10/28/24 History diltiazem HCl 180 mg 180 mg PO DAILY #30 caps 08/23/24 10/29/24 Rx capsule,extended release 24 hr ranolazine 500 mg tablet,extended 500 mg PO BID 30 days #60 tabs 08/23/24 10/28/24 Rx release,12 hr furosemide 20 mg tablet 20 mg PO DAILY #30 tabs 09/03/24 10/28/24 Rx duloxetine 60 mg capsule,delayed 60 mg PO BID 90 days #180 caps 09/23/24 10/28/24 Rx release potassium chloride 10 mEq 10 meq PO DAILY #90 tabs 09/23/24 10/28/24 Rx tablet,extended release magnesium oxide 400 mg PO BID #180 tabs 10/15/24 10/28/24 Rx amoxicillin 500 mg capsule 500 mg PO TID 10/29/24 10/29/24 History New Prescriptions to Start Prescriptions: Allergies Allergy/AdvReac Type Severity Reaction Status Date / Time codeine (CODEINE) Allergy Intermediate N/V Verified 09/21/24 11:49 ketorolac (KETOROLAC) Allergy Intermediate Hives Verified 09/21/24 11:49 meperidine (MEPERIDINE) Allergy Intermediate Hives Verified 09/21/24 11:49 tramadol (TRAMADOL) Allergy Intermediate Hives Verified 09/21/24 11:49 verapamil Allergy Mild Unknown Verified 09/21/24 11:49 allergy reaction ciprofloxacin AdvReac Severe Interacts Verified 09/21/24 11:49 with cymbalta Exam Data for Last 24 hours Vital signs and Labs for Last 24 Hours: Temp Pulse Resp BP Pulse Ox O2 Del Method O2 Flow Rate 98 F 100 H 18 105/61 L 96 Nasal Cannula 2 10/29/24 08:06 10/29/24 08:06 10/29/24 08:06 10/29/24 08:06 10/29/24 08:06 10/29/24 08:06 10/29/24 08:06 Laboratory Results - last 24 hr 10/28/24 14:45: WBC 13.0 H, RBC 4.04 L, Hgb 8.9 L, Hct 29.2 L, MCV 72.2 L, MCH 22.0 L, MCHC 30.4 L, RDW 19.5 H, Plt Count 455 H, MPV 8.3, Neut % (Auto) 70.2, Lymph % (Auto) 22.3, [place] % (Auto) 5.2, Eos % (Auto) 1.7, Baso % (Auto) 0.6, Neut # (Auto) 9.1 H, Lymph # (Auto) 2.9, [place] # (Auto) 0.7, Eos # (Auto) 0.2, Baso # (Auto) 0.1, PT 13.1 H, INR 1.19 H, APTT 25.9, Sodium 138, Potassium 3.3 L, Chloride 102, Carbon Dioxide 23, Anion Gap 16.3 H, BUN 18 H, Creatinine 1.50 H, Estimated Creat Clear 52, Estimated GFR 35 L, Est GFR ( Amer) 42 L, Glucose 134 H, Lactate 3.7 H, Calcium 8.2 L, Total Bilirubin 1.0, AST 31, ALT 20, Alkaline Phosphatase 118, Troponin I < 0.01, NT-Pro-B Natriuret Pep 3830 H, Total Protein 7.1, Albumin 4.0, Globulin 3.1, Albumin/Globulin Ratio 1.3, Lipase 125, HIV 1&2 Antibody Rapid Nonreactive 10/28/24 15:34: Blood Type B Positive, Antibody Screen Negative 10/28/24 16:33: Urine Color Yellow, Urine Appearance Clear, Urine pH 5.5, Ur Specific [place] 1.015, Urine Protein Negative, Urine Glucose (UA) Negative, Urine Ketones Negative, Urine Blood Negative, Urine Nitrate Negative, Urine Bilirubin Negative, Urine Urobilinogen 0.2, Ur Leukocyte Esterase Negative, Urine RBC Occasional, Urine WBC Occasional, Ur Squamous Epith Cells 3-5, Urine Bacteria 1+, Hyaline Casts Occasional, Urine Mucus 1+, Urine Opiates Screen Positive H, Urine Methadone Screen Negative, Ur Barbituates Screen Negative, Ur Phencyclidine Scrn Negative, Ur Amphetamines Screen Negative, U Benzodiazepines Scrn Negative, Urine Cocaine Screen Positive H, U Marijuana (THC) Screen Positive H 10/28/24 20:55: Hgb 8.0 L D, Hct 25.4 L, Lactate 2.2 H, Troponin I < 0.01 10/28/24 23:17: Lactate 1.4 10/29/24 05:48: WBC 8.6 D, RBC 3.66 L, Hgb 7.7 L, Hct 26.6 L, MCV 72.8 L, MCH 21.0 L, MCHC 28.8 L, RDW 19.4 H, Plt Count 382, MPV 7.2 L, Neut % (Auto) 53.1, Lymph % (Auto) 37.2, [place] % (Auto) 4.7, Eos % (Auto) 4.1, Baso % (Auto) 0.9, Neut # (Auto) 4.6, Lymph # (Auto) 3.2, [place] # (Auto) 0.4, Eos # (Auto) 0.4, Baso # (Auto) 0.1, Sodium 137, Potassium 3.5, Chloride 102, Carbon Dioxide 28, Anion Gap 10.5, BUN 16, Creatinine 1.10 H D, Estimated Creat Clear 75, Estimated GFR 50 L, Est GFR ( Amer) 61 D, Glucose 97 D, Calcium 7.8 L, Magnesium 1.4 L, Total Bilirubin 0.7, AST 22 D, ALT 12 D, Alkaline Phosphatase 92, Total Protein 6.0 L, Albumin 3.3 L D, Globulin 2.7, Albumin/Globulin Ratio 1.2 I & O for Last 24 hours: Intake & Output 11/10/27/24 10/28/24 10/29/24 23:59 23:59 23:59 23:59 Output Total 0 / 0 200 / 200 Balance 0 / 0 -200 / -200 Weight 201 lb 202 lb 4.8 oz *Routine HEENT Exam Head: Present normocephalic Eye: Present EOMI and PERRL ENT: Present mucous membranes moist *Routine Neck Exam Neck: Present supple *Routine Respiratory Exam Respiratory: Present CTA bilaterally *Routine Cardiovascular Exam Cardiovascular: Present RRR *Routine Abdominal Exam Abdominal: Present soft and normoactive bowel sounds; Absent tenderness *Routine Rectal Exam Rectal:: deferred *Routine Genitalia Exam Genitalia:: deferred *Routine Extremities Exam Extremities: Absent cyanosis, clubbing or edema *Routine Skin Exam Skin: Present warm; Absent rash *Routine Neurological Exam Neurological: Present alert and oriented X3 Assessment and Plan *Assessment and plan (1) GIB (gastrointestinal bleeding): Status: Acute Category: Medical Code(s): K92.2 - Gastrointestinal hemorrhage, unspecified (2) Bright red blood per rectum: Status: Acute Category: Medical Code(s): K62.5 - Hemorrhage of anus and rectum (3) Anemia due to gastrointestinal blood loss: Status: Acute Category: Medical Code(s): D50.0 - Iron deficiency anemia secondary to blood loss (chronic) Plan A/P: 1. GI bleed with bright red blood per rectum and anemia is the preprocedural diagnosis. The patient will be anesthetized/sedated using MAC sedation. The patient has been seen and examined. Cardiac and lung assessment prior to the examination is stable. Proceed with planned EGD and colonoscopy
--- NOTE | 2024-10-29 08:27 | PC.NURSE ---
was taken down to colostomy
--- NOTE | 2024-10-29 08:30 | P.PCN_ITS ---
[facility] Procedure Note Date: 10/29/24 Time: 08:42 Procedure Note:: Upper Endoscopy Procedure Report: Esophagogastroduodenoscopy with cold biopsies Endoscopost: David Lion II, MD Referring Physician: Juan C Colón MD Date of Procedure: October 29, 2024 Equipment: Olympus GIF 190 standard upper endoscope Sedation: MAC sedation Indications: Mrs. Arteaga is a 64-year-old female with atrial fibrillation and is on Xarelto. She does have chronic anemia. She also has coronary stents and was on Brilinta. The patient reports having diarrhea for 3 to 4 days and then the onset of bright red blood per rectum. She has also had dark black stools. She did have a colonoscopy earlier this year with Dr. Jaleel Arenas and had internal hemorrhoids which were the presumed etiology of her bleeding. At that time she also had an EGD and had esophageal dilation. She does have intermitten t dysphagia. The patient does report crampy abdominal discomfort. Labs in the emergency department showed hemoglobin 8.9 and hematocrit 29. I did speak with the ED physician (Dr. Armendariz) and hospitalist (Alan Corcoran MD) and plans for diagnostic panendoscopy today. Procedure: Prior to the procedure, a history and physical exam was performed, and patient's medications and allergies were reviewed. The risks, benefits and alternatives of the sedation and procedure were discussed with the patient. All questions were answered and informed consent was obtained. The patient was brought to the procedure room. Patient identification and proposed procedure were verified by the physician and the nurse. The patient was placed in a left lateral decubitus position and the scope was passed under direct vision. Throughout the procedure, the patient's blood pressure, pulse, and oxygen saturations were monitored continuously. The upper GI endoscopy was accomplished without difficulty. The patient tolerated the procedure well. Findings: The scope was passed directly into the upper esophagus and advanced to the third portion of the duodenum. There was some scalloping of the duodenal conniventes and biopsies were obtained to rule out celiac disease. There were no duodenal ulcerations or erosions. The scope was withdrawn through a normal bulb and pylorus into the stomach. There was some linear reactive gastropathy of the antrum. There was some mild chronic gastritis of the body and fundus. Biopsies were taken along the lesser curvature to rule out H. pylori. Upon retroflexion there was a very small sliding 1 to 2 cm hiatal hernia. The scope was then withdrawn into the esophagus. There was a serrated Z-line with no obvious Almaguer's or reflux esophagitis. There were tertiary contractions and evidence of moderate esophageal dysmotility. The remainder of the esophageal mucosa was normal. Impression: 1. Nonerosive GERD with moderate esophageal dysmotility and very small sliding hiatal hernia 2. Mild linear reactive gastropathy and mild chronic gastritis 3. Scalloping of the duodenal conniventes?rule out celiac disease Plan: I will follow-up the biopsies. There was no etiology for the patient's acute GI bleed. I will obtain celiac serologies. Certainly if biopsies indicate celiac disease, this could be an etiology of her chronic anemia and iron deficiency. I also feel that her bleeding is related to anticoagulation. In this patient, I would consider the Watchman procedure. The Watchman Left Atrial Appendage Closure provides a new option for patients with non-valvular atrial fibrillation who may require an alternative to long-term use of blood thinners. This is especially important in persons that have chronic gastrointestinal blood loss with resulting iron deficiency anemia that is greatly exacerbated by the use of blood thinners (anticoagulation). I will proceed with diagnostic colonoscopy.
[2024-10-29 08:39] LABS: Total Iron Binding Capacity 368 ug/dL (265-497)
--- NOTE | 2024-10-29 08:46 | HMH.PROCNOTE ---
[facility] Procedure Note Date: 10/29/24 Time: 08:57 Procedure Note:: Sigmoidoscopy procedure Report: Sigmoidoscopy with hemorrhoid band ligation (attempted colonoscopy unprepped) Endoscopist: David Lion II, MD Referring physician: Juan C Colón MD Date of Procedure: October 29, 2024 Equipment: Olympus 190 variable stiffness pediatric colonoscope Sedation: MAC sedation Indication: Mrs. Arteaga is a 64-year-old female who has been admitted secondary to acute GI bleeding. She is here for diagnostic panendoscopy secondary to melena and bright red blood per rectum. The upper endoscopy showed no etiology of her bleeding. The patient did have a CT scan of the abdomen and pelvis yesterday that showed mild to moderate colonic diverticulosis without diverticulitis. There was a small focus of increased density in the distal sigmoid colon in the arterial phase which could represent etiology of bleeding. She does have a history of atrial fibrillation and is on Xarelto. She does have chronic anemia. She also has coronary stents and was on Brilinta. The patient reports having diarrhea for 3 to 4 days and then the onset of bright red blood per rectum. She has also had dark black stools. She did have a colonoscopy earlier this year with Dr. Jaleel Arenas and had internal hemorrhoids which were the presumed etiology of her bleeding. At that time she also had an EGD and had esophageal dilation. She does have intermittent dysphagia. The patient does report crampy abdominal discomfort. Labs in the emergency department showed hemoglobin 8.9 and hematocrit 29. I did speak with the ED physician (Dr. Armendariz) and hospitalist (Alan Corcoran MD) and plans for diagnostic panendoscopy today. Procedure: Prior to the procedure, a history and physical exam was performed, and patient's medications and allergies were reviewed. The risks, benefits and alternatives of the sedation and procedure were discussed with the patient. All questions were answered and informed consent was obtained. The patient was brought to the procedure room. Patient identification and proposed procedure were verified by the physician and the nurse. The patient was placed in a left lateral decubitus position and the scope was passed under direct vision. Throughout the procedure, the patient's blood pressure, pulse, and oxygen saturations were monitored continuously. The colonoscopy was accomplished without difficulty. The patient tolerated the procedure well. Findings: On digital rectal examination there was normal rectal tone and there were no external hemorrhoids. There was minor internal hemorrhoid prolapse. The scope was then inserted through the anal canal into the rectum and advanced to the transverse colon and splenic flexure. The preparation was too poor to advance further. Upon withdrawal there were extensive diverticuli in the distal descending and throughout the sigmoid colon. There was no evidence of any active hemorrhage and no blood identified. There were no polyps, colitis or other mucosal abnormalities. Upon retroflexion within the rectum there were grade 2-3 internal hemorrhoids. 3 columns of hemorrhoids were banded using 3 bands with excellent ligation effect. Impression: 1. Extensive left-sided diverticulosis 2. Grade 2-3 internal hemorrhoids status post band ligation x 3 Plan: Given her clinical description, findings on CAT scan and colonoscopic findings, I do feel that the the bleeding may be hemorrhoidal versus acute diverticular hemorrhage. I have banded the hemorrhoids because she had prior recent colonoscopy (Dr. Arenas) who felt that her bleeding etiology was from the hemorrhoids. I would encourage bulking fiber supplementation. On a broader note, I do think that it is related to her use of anticoagulation and I would consider evaluation for the Watchman procedure to allow her to come off of anticoagulation.
[2024-10-29 09:00] LABS: Ferritin 11.5 ng/ml (11.1-264)
--- NOTE | 2024-10-29 09:23 | P.PNANES_ITS ---
[facility] Disclaimer: The information contained in this section may have been updated after the patient was seen, as this information can be updated by other users. Medical History (Updated 10/29/24 @ 08:27 by David Lion II, MD) Tobacco dependence in remission Pancreas divisum of [place] pancreas Encounter for pre-operative cardiovascular clearance Orthopnea CHF (congestive heart failure) Pancreatitis Nausea vomiting and diarrhea Exhausted vascular access Rib fractures Chronic hypoxemic respiratory failure Coronary artery disease COPD (chronic obstructive pulmonary disease) HLD (hyperlipidemia) Diabetes Anxiety and depression TIA (transient ischemic attack) History of stroke History of multiple cerebrovascular accidents (CVAs) History of class III angina pectoris Typical angina Dyspnea History of pancreatitis History of CVA (cerebrovascular accident) Surgical History History of biliary duct stent placement History of hysterectomy History of cholecystectomy History of coronary artery stent placement Family History Other Family history of cancer Family history of diabetes mellitus Social History (Updated 10/28/24 @ 23:02 by Kristi Mcleod RN) Smoking Status: Former smoker tobacco type: cigarettes packs per day: 1 second hand exposure: No alcohol intake: never counseling provided: none substance use type: marijuana and crack/cocaine current occupational status: disabled and other household members: significant other housing: house marital status: single number of children: 2 current occupational exposures/hazards: No caffeine: Yes [facility] Anesthesia Checklist Patient Identification Patient Identification: Verbal (Name & ) Structural Data Admitted From: Inpatient Planned Operative Procedure/s: egd,colonoscopy Consent for Planned Operative Procedure(s) Verified: Yes Additional verifications Anesthesia Reactions: No Hx Blood Transfusions: No Blood Transfusion Reaction: No Airway Assessment Mallampati Score:: Class II C-Spine Mobility Assessed: Yes TMJ Mobility Assessed: Yes Dentition: Poor Dentition Neurological Assessment Level of Consciousness: Awake, Alert and Appropriate Anesthesia Plan Anesthesia Risk discussed: Yes Anesthesia Plan: Verified ASA Class: III Anesthesia Type: MAC
[2024-10-29 09:52] LABS: Hemoglobin A1C 5.7 % (4.0-6.0)
[2024-10-29] MEDS: IRON SUCROSE COMPLEX 200 MG in 0.9 % SODIUM CHLORIDE 100 ML 220 MG IV (10:19)
[2024-10-29] MEDS: LEVOTHYROXINE 100MCG (0.1MG) TAB 100 MCG PO (10:37)
[2024-10-29] MEDS: PANTOPRAZOLE 40MG VIAL 40 MG IV (10:38)
[2024-10-29] MEDS: SODIUM CHLORIDE 0.9% 10ML VIAL 10 ML IV (10:38)
[2024-10-29 11:00] LABS: POC Glucose,Bedside 107 (70-110)
[2024-10-29] MEDS: ACETAMINOPHEN 325MG TAB 650 MG PO (12:47)
[2024-10-29] MEDS: IPRATROPIUM/ALBUTEROL 3 ML NEB IH (12:47)
--- NOTE | 2024-10-29 15:16 | EXP.DC.SUM ---
General Admission date:: 10/28/24 HPI HPI HPI: Linda Arteaga is a 64-year-old female past medical history significant for A-fib on Xarelto, chronic anemia, RLS, CAD status post stenting on Brilinta, HTN, COPD on 2 L nasal cannula at baseline, depression who presents emergency room tonight with complaints of BRBPR and diarrhea. Ms. Arteaga states she got her flu/covid shot last week and has felt under the weather since then. Reports multiple episodes of diarrhea over the last week or so. States today she had 2 episodes of bright red blood in her diarrhea. She tells me that she has internal hemorrhoids and that her GI physicians (Dr. Arenas) stated they might have to intervene on them eventually. She had a colonoscopy done in March of this year, it was reported stable. She also had an EGD done at the same time and had her esophagus stretched. Is on xarelto and brilinta. Wears 2L NC at baseline. Denies any cough, fever, chest pain, shortness of breath, abdominal pain. No recent weight gain or weight loss, no swelling in her legs or feet. Denies tobacco use, alcohol use, illicit drug use. Lab work in the ER showed an elevated white count of 13,000, H&H chronically low but apparently stable at 8.9 and 29. Potassium a bit low at 3.3, BUN and creatinine slightly elevated at 18 and 1.5, baseline creatinine around 1.2. Lactic acid initially elevated at 3.7. BNP elevated at 3830. CXR was nonactionable. CTA fo the abdomen pelvis showed mild to moderate colonic diverticulosis without diverticulitis, questionable small focus of acute bleeding versus artifact in the mid to distal sigmoid colon, findings consistent with low-grade ileus versus enteritis, would favor enteritis as patient has had nausea and diarrhea for the last week or so. She was given an IV fluid bolus and PPI. GI was consulted, agreed to see the patient in consult. She will be admitted to the hospitalist service for lower GI bleed and ALYSE. Hospital Course Hospital Course Hospital Course: 64-year-old female being admitted for lower GI bleed and ALYSE. On my exam, patient is lying in bed in no acute distress. On her baseline 2 L nasal cannula. Complaining of some lower abdominal cramping. #Lower GI bleed, BRBPR #Grade 2-3 internal hemorrhoids #Iron deficiency anemia - Intial Hgb 8.6 -> 8.0, though in also setting of IV fluid dilution. - GI consulted, S/p EGD 10/29/24: Nonerosive GERD with moderate esophageal dysmotility and very small sliding hiatal hernia, Mild linear reactive gastropathy and mild chronic gastritis. Scalloping of the duodenal conniventes?rule out celiac disease. - S/p colonoscopy 10/29/24: Extensive left-sided diverticulosis, Grade 2-3 internal hemorrhoids status post band ligation x 3. - Iron studies indicated siginificant iron deficiency anemia. Given IV Venofer 200mg. - No further episodes of bleeding. Vitals and Hgb stable. - Discharged with Miralax and ferrous sulfate 325mg BID. #CAD status post CARLOS #A-fib #Elevated BNP - Patient saw Dr. Torres in Aug, had a cath in 2019 and was recommended to continue medical management. - Continue statin, beta-clifton, diltiazem. - Continue Brilinta and Xarelto as source of bleeding has been rectified as above. - Echo done in August showed normal biventricular systolic function, no regional wall abnormalities noted, no significant valvular stenosis or regurg, #Chronic hypoxic respiratory failure #COPD without exacerbation - Patient on baseline home O2 needs at 2 L nasal cannula. - Maintain SpO2 greater than 90%. - Given DuoNebs as needed. - Continue home regimen. #Anxiety #Depression - Continue alprazolam as needed. - Continue duloxetine. #Type 2 diabetes - Holding metformin while in the hospital. - Given SSI for glycemic control. - A1c 5.7% during admission. - Last A1c done in March was 6.1. #Hypothyroid - Continue Synthroid. #HTN - Holding losartan in light of ALYSE, continue beta-clifton, CCB. #RLS - Continue ropinirole. Exam Data for Last 24 hours Vital signs and Labs for Last 24 Hours: Temp Pulse Resp BP Pulse Ox O2 Del Method O2 Flow Rate 98.0 F 85 16 101/67 L 94 L Nasal Cannula 4 10/29/24 11:58 10/29/24 14:25 10/29/24 14:25 10/29/24 14:25 10/29/24 14:25 10/29/24 14:44 10/29/24 14:44 Laboratory Results - last 24 hr 10/28/24 14:45: PT 13.1 H, INR 1.19 H, APTT 25.9, Troponin I < 0.01, NT-Pro-B Natriuret Pep 3830 H, HIV 1&2 Antibody Rapid Nonreactive 10/28/24 15:34: Blood Type B Positive, Antibody Screen Negative 10/28/24 16:33: Urine Color Yellow, Urine Appearance Clear, Urine pH 5.5, Ur Specific [place] 1.015, Urine Protein Negative, Urine Glucose (UA) Negative, Urine Ketones Negative, Urine Blood Negative, Urine Nitrate Negative, Urine Bilirubin Negative, Urine Urobilinogen 0.2, Ur Leukocyte Esterase Negative, Urine RBC Occasional, Urine WBC Occasional, Ur Squamous Epith Cells 3-5, Urine Bacteria 1+, Hyaline Casts Occasional, Urine Mucus 1+, Urine Opiates Screen Positive H, Urine Methadone Screen Negative, Ur Barbituates Screen Negative, Ur Phencyclidine Scrn Negative, Ur Amphetamines Screen Negative, U Benzodiazepines Scrn Negative, Urine Cocaine Screen Positive H, U Marijuana (THC) Screen Positive H 10/28/24 20:55: Hgb 8.0 L D, Hct 25.4 L, Lactate 2.2 H, Troponin I < 0.01 10/28/24 23:17: Lactate 1.4 10/29/24 05:48: WBC 8.6 D, RBC 3.66 L, Hgb 7.7 L, Hct 26.6 L, MCV 72.8 L, MCH 21.0 L, MCHC 28.8 L, RDW 19.4 H, Plt Count 382, MPV 7.2 L, Neut % (Auto) 53.1, Lymph % (Auto) 37.2, [place] % (Auto) 4.7, Eos % (Auto) 4.1, Baso % (Auto) 0.9, Neut # (Auto) 4.6, Lymph # (Auto) 3.2, [place] # (Auto) 0.4, Eos # (Auto) 0.4, Baso # (Auto) 0.1, Sodium 137, Potassium 3.5, Chloride 102, Carbon Dioxide 28, Anion Gap 10.5, BUN 16, Creatinine 1.10 H D, Estimated Creat Clear 75, Estimated GFR 50 L, Est GFR ( Amer) 61 D, Glucose 97 D, Hemoglobin A1c 5.7, Calcium 7.8 L, Magnesium 1.4 L, Iron 32 L, TIBC 368, Iron Saturation 8.55513 L, Ferritin 11.5, Total Bilirubin 0.7, AST 22 D, ALT 12 D, Alkaline Phosphatase 92, Total Protein 6.0 L, Albumin 3.3 L D, Globulin 2.7, Albumin/Globulin Ratio 1.2 10/29/24 10:47: POC Glucose 107 I & O for Last 24 hours: Intake & Output 10/26/24 10/27/24 10/28/24 10/29/24 23:59 23:59 23:59 23:59 Intake Total 120 / 120 Output Total 0 / 0 200 / 200 Balance 0 / 0 -80 / -80 Weight 91.172 kg 91.762 kg Constitutional Constitutional: no acute distress *Routine HEENT Exam Head: Present normocephalic Eye: Present EOMI and PERRL ENT: Present mucous membranes moist *Routine Neck Exam Neck: Present supple; Absent lymphadenopathy *Routine Respiratory Exam Respiratory: Present CTA bilaterally *Routine Cardiovascular Exam Cardiovascular: Present RRR *Routine Abdominal Exam Abdominal: Present soft and normoactive bowel sounds; Absent tenderness *Routine Extremities Exam Extremities: Absent cyanosis, clubbing or edema *Routine Skin Exam Skin: Present warm; Absent rash *Routine Neurological Exam Neurological: Present alert and oriented X3 Results Data Completed and Pending Labs on day of discharge: Labs from last 24 hours 10/29/24 10/29/24 10/28/24 10:47 05:48 23:17 WBC 8.6 D RBC 3.66 L Hgb 7.7 L Hct 26.6 L MCV 72.8 L MCH 21.0 L MCHC 28.8 L RDW 19.4 H Plt Count 382 MPV 7.2 L Neut % (Auto) 53.1 Lymph % (Auto) 37.2 [place] % (Auto) 4.7 Eos % (Auto) 4.1 Baso % (Auto) 0.9 Neut # (Auto) 4.6 Lymph # (Auto) 3.2 [place] # (Auto) 0.4 Eos # (Auto) 0.4 Baso # (Auto) 0.1 PT INR APTT Sodium 137 Potassium 3.5 Chloride 102 Carbon Dioxide 28 Anion Gap 10.5 BUN 16 Creatinine 1.10 H D Estimated Creat Clear 75 Estimated GFR 50 L Est GFR ( Amer) 61 D Glucose 97 D POC Glucose 107 Hemoglobin A1c 5.7 Lactate 1.4 Calcium 7.8 L Magnesium 1.4 L Iron 32 L TIBC 368 Iron Saturation 8.37679 L Ferritin 11.5 Total Bilirubin 0.7 AST 22 D ALT 12 D Alkaline Phosphatase 92 Troponin I NT-Pro-B Natriuret Pep Total Protein 6.0 L Albumin 3.3 L D Globulin 2.7 Albumin/Globulin Ratio 1.2 Urine Color Urine Appearance Urine pH Ur Specific [place] Urine Protein Urine Glucose (UA) Urine Ketones Urine Blood Urine Nitrate Urine Bilirubin Urine Urobilinogen Ur Leukocyte Esterase Urine RBC Urine WBC Ur Squamous Epith Cells Urine Bacteria Hyaline Casts Urine Mucus Urine Opiates Screen Urine Methadone Screen Ur Barbituates Screen Ur Phencyclidine Scrn Ur Amphetamines Screen U Benzodiazepines Scrn Urine Cocaine Screen U Marijuana (THC) Screen HIV 1&2 Antibody Rapid Blood Type Antibody Screen 10/28/24 10/28/24 10/28/24 20:55 16:33 15:34 WBC RBC Hgb 8.0 L D Hct 25.4 L MCV MCH MCHC RDW Plt Count MPV Neut % (Auto) Lymph % (Auto) [place] % (Auto) Eos % (Auto) Baso % (Auto) Neut # (Auto) Lymph # (Auto) [place] # (Auto) Eos # (Auto) Baso # (Auto) PT INR APTT Sodium Potassium Chloride Carbon Dioxide Anion Gap BUN Creatinine Estimated Creat Clear Estimated GFR Est GFR ( Amer) Glucose POC Glucose Hemoglobin A1c Lactate 2.2 H Calcium Magnesium Iron TIBC Iron Saturation Ferritin Total Bilirubin AST ALT Alkaline Phosphatase Troponin I < 0.01 NT-Pro-B Natriuret Pep Total Protein Albumin Globulin Albumin/Globulin Ratio Urine Color Yellow Urine Appearance Clear Urine pH 5.5 Ur Specific [place] 1.015 Urine Protein Negative Urine Glucose (UA) Negative Urine Ketones Negative Urine Blood Negative Urine Nitrate Negative Urine Bilirubin Negative Urine Urobilinogen 0.2 Ur Leukocyte Esterase Negative Urine RBC Occasional Urine WBC Occasional Ur Squamous Epith Cells 3-5 Urine Bacteria 1+ Hyaline Casts Occasional Urine Mucus 1+ Urine Opiates Screen Positive H Urine Methadone Screen Negative Ur Barbituates Screen Negative Ur Phencyclidine Scrn Negative Ur Amphetamines Screen Negative U Benzodiazepines Scrn Negative Urine Cocaine Screen Positive H U Marijuana (THC) Screen Positive H HIV 1&2 Antibody Rapid Blood Type B Positive Antibody Screen Negative 10/28/24 14:45 WBC RBC Hgb Hct MCV MCH MCHC RDW Plt Count MPV Neut % (Auto) Lymph % (Auto) [place] % (Auto) Eos % (Auto) Baso % (Auto) Neut # (Auto) Lymph # (Auto) [place] # (Auto) Eos # (Auto) Baso # (Auto) PT 13.1 H INR 1.19 H APTT 25.9 Sodium Potassium Chloride Carbon Dioxide Anion Gap BUN Creatinine Estimated Creat Clear Estimated GFR Est GFR ( Amer) Glucose POC Glucose Hemoglobin A1c Lactate Calcium Magnesium Iron TIBC Iron Saturation Ferritin Total Bilirubin AST ALT Alkaline Phosphatase Troponin I < 0.01 NT-Pro-B Natriuret Pep 3830 H Total Protein Albumin Globulin Albumin/Globulin Ratio Urine Color Urine Appearance Urine pH Ur Specific [place] Urine Protein Urine Glucose (UA) Urine Ketones Urine Blood Urine Nitrate Urine Bilirubin Urine Urobilinogen Ur Leukocyte Esterase Urine RBC Urine WBC Ur Squamous Epith Cells Urine Bacteria Hyaline Casts Urine Mucus Urine Opiates Screen Urine Methadone Screen Ur Barbituates Screen Ur Phencyclidine Scrn Ur Amphetamines Screen U Benzodiazepines Scrn Urine Cocaine Screen U Marijuana (THC) Screen HIV 1&2 Antibody Rapid Nonreactive Blood Type Antibody Screen DS: Diagnosis Discharge Diagnosis (1) GIB (gastrointestinal bleeding): Status: Acute Code(s): K92.2 - Gastrointestinal hemorrhage, unspecified (2) Bright red blood per rectum: Status: Acute Code(s): K62.5 - Hemorrhage of anus and rectum (3) Anemia due to gastrointestinal blood loss: Status: Acute Code(s): D50.0 - Iron deficiency anemia secondary to blood loss (chronic) Meds Home Medications and Allergies Home Medications ?Medication ?Instructions ?Recorded ?Confirmed ?Type omeprazole 40 mg capsule,delayed 40 mg PO DAILY 04/08/23 10/28/24 History release nitroglycerin 0.4 mg sublingual 0.4 mg sublingual Q5MINP PRN chest 07/13/23 10/28/24 History tablet pain montelukast 10 mg tablet 10 mg PO HS 03/17/24 10/28/24 History rivaroxaban 20 mg tablet 20 mg PO QPMWITHMEAL 03/17/24 10/28/24 History ropinirole 0.25 mg tablet 0.25 mg PO HS #30 tabs 03/22/24 10/28/24 Rx atorvastatin 40 mg tablet 40 mg PO HS #90 tabs 04/08/24 10/28/24 Rx albuterol sulfate 90 mcg/actuation 2 inh inhalation Q4HP PRN 06/14/24 10/28/24 Rx aerosol inhaler Shortness Of Breath Or Wheezing #6.7 grams gabapentin 600 mg tablet 600 mg PO BID #60 tabs 06/16/24 10/28/24 Rx levothyroxine 100 mcg tablet 100 mcg PO DAILYDM 08/22/24 10/28/24 History metoprolol succinate 50 mg 50 mg PO DAILY 08/22/24 10/28/24 History tablet,extended release 24 hr ticagrelor 90 mg tablet (Brilinta) 90 mg PO BID 08/22/24 10/28/24 History trazodone 100 mg tablet 100 mg PO HS 08/22/24 10/28/24 History diltiazem HCl 180 mg 180 mg PO DAILY #30 caps 08/23/24 10/29/24 Rx capsule,extended release 24 hr ranolazine 500 mg tablet,extended 500 mg PO BID 30 days #60 tabs 08/23/24 10/28/24 Rx release,12 hr duloxetine 60 mg capsule,delayed 60 mg PO BID 90 days #180 caps 09/23/24 10/28/24 Rx release potassium chloride 10 mEq 10 meq PO DAILY #90 tabs 09/23/24 10/28/24 Rx tablet,extended release magnesium oxide 400 mg PO BID #180 tabs 10/15/24 10/28/24 Rx amoxicillin 500 mg capsule 500 mg PO TID 10/29/24 10/29/24 History polyethylene glycol 3350 17 17 g PO DAILY #510 grams 10/29/24 Rx gram/dose oral powder (Miralax) oxycodone 5 mg tablet 5 mg PO Q8H PRN pain #4 tabs 10/31/24 Rx quetiapine 50 mg tablet See Rx Instructions .Route 11/01/24 Rx .COMPLEX #30 tabs alprazolam 1 mg tablet 1 mg PO TIDP PRN Anxiety #45 tabs 11/10/24 Rx furosemide 20 mg tablet 20 mg PO DAILY #30 tabs 11/10/24 Rx metformin 1,000 mg tablet 1,000 mg PO BIDWMEAL #60 tabs 11/10/24 Rx ferrous sulfate 325 mg (65 mg 325 mg PO BID #60 tabs 11/14/24 Rx iron) tablet New Prescriptions to Start Prescriptions: ferrous sulfate Alan Corcoran polyethylene glycol 3350 [Miralax] Alan Corcoran Allergies Allergy/AdvReac Type Severity Reaction Status Date / Time codeine (CODEINE) Allergy Intermediate N/V Verified 09/21/24 11:49 ketorolac (KETOROLAC) Allergy Intermediate Hives Verified 09/21/24 11:49 meperidine (MEPERIDINE) Allergy Intermediate Hives Verified 09/21/24 11:49 tramadol (TRAMADOL) Allergy Intermediate Hives Verified 09/21/24 11:49 verapamil Allergy Mild Unknown Verified 09/21/24 11:49 allergy reaction ciprofloxacin AdvReac Severe Interacts Verified 09/21/24 11:49 with cymbalta Discharge Plan Disposition Patient Disposition: Home, Self-Care Follow up Plan Prescriptions/Medication Reconciliation: New polyethylene glycol 3350 [Miralax] 17 gram/dose powder 17 g PO DAILY Qty: 510 0RF ferrous sulfate 325 mg (65 mg iron) tablet 325 mg PO BID Qty: 60 0RF Continued omeprazole 40 mg capsule,delayed release(DR/EC) 40 mg PO DAILY atorvastatin 40 mg tablet 40 mg PO HS Qty: 90 3RF albuterol sulfate 90 mcg/actuation HFA aerosol inhaler 2 inh IH Q4HP PRN (Reason: Shortness Of Breath Or Wheezing) Qty: 6.7 2RF duloxetine 60 mg capsule,delayed release(DR/EC) 60 mg PO BID 90 Days Qty: 180 1RF potassium chloride 10 mEq tablet extended release 10 meq PO DAILY Qty: 90 1RF magnesium oxide 400 mg magnesium tablet 400 mg PO BID Qty: 180 3RF nitroglycerin 0.4 mg tablet, sublingual 0.4 mg sublingual Q5MINP PRN (Reason: chest pain) Rx Instructions: do not exceed 3 doses per episode ropinirole 0.25 mg tablet 0.25 mg PO HS Qty: 30 2RF gabapentin 600 mg tablet 600 mg PO BID Qty: 60 5RF metoprolol succinate 50 mg tablet extended release 24 hr 50 mg PO DAILY Patient Comments: TAKE 1 TABLET(50 mg) orally daily for High Blood Pressure levothyroxine 100 mcg tablet 100 mcg PO DAILYDM trazodone 100 mg tablet 100 mg PO HS Brilinta 90 mg tablet 90 mg PO BID diltiazem HCl 180 mg Capsule,Extended Release 24hr 180 mg PO DAILY Qty: 30 0RF ranolazine 500 mg Tablet Extended Release 12 Hr 500 mg PO BID 30 Days Qty: 60 0RF amoxicillin 500 mg capsule 500 mg PO TID montelukast 10 mg tablet 10 mg PO HS rivaroxaban 20 mg Tablet 20 mg PO QPMWITHMEAL No Action quetiapine 50 mg tablet See Rx Instructions .ROUTE .COMPLEX Qty: 30 1RF Dose Instruction: TAKE ONE TABLET BY MOUTH AT BEDTIME Rx Instructions: TAKE ONE TABLET BY MOUTH AT BEDTIME furosemide 20 mg tablet 20 mg PO DAILY Qty: 30 1RF metformin 1,000 mg tablet 1,000 mg PO BIDWMEAL Qty: 60 2RF alprazolam 1 mg tablet 1 mg PO TIDP PRN (Reason: Anxiety) Qty: 45 0RF Rx Instructions: will need office visit oxycodone 5 mg tablet 5 mg PO Q8H PRN (Reason: pain) Qty: 4 0RF Problem Reconciliation Problems Reviewed?: Yes Patient Discharge Instructions Patient Instructions: DI for Abdominal Pain-Adult, DI for Gastrointestinal Bleeding Print Language: American Providers Primary Care Provider: Juan C Colón Admit Provider: Alan Corcoran Attending Provider: Alan Corcoran
[2024-10-30 03:36] LABS: HCV Ab Non Reactive (Non Reactive)
[2024-10-30 13:49] LABS: Deamidated Gliadin Abs, IgA 8 units (0-19); Deamidated Gliadin Abs, IgG 2 units (0-19); Tissue Transglutaminase IgA Ab <2 U/mL (0-3); Tissue Transglutaminase IgG Ab 2 U/mL (0-5)
--- NOTE | 2024-11-01 11:42 | SW/DCPLANNER ---
Addendum entered by Deya Durán 11/02/24 12:54: I have made contact w/ [employer] in [place] and the patient. Patient will be reaching out to [employer] today for assistance w/ electric bill. I did offer to call for an ambulance to patient's home and she refused at this time. Patient stated her son is at the home w/ her. Addendum entered by Cristine Rahman RN 11/02/24 12:30: Patient contacted Dr. Eugene's office for unknown reasons and they contacted us in case we were trying to get ahold of her. I contacted her. Patient states she is vomiting off and on. She has no electric. Discuss[facility] and patient states she is too sick to call them. We discussed coming to ER if vomiting that much. Patient states she will work on it and may come to ER. Addendum entered by Edith Silva RN 11/01/24 11:50: Spoke with patient, who stated that she received a phone call this morning from ED nurse about blood culture results, but could not remember what she was told due to being asleep when they called. Patient stated that she isn't feeling well and I advised her to be seen today at either the [facility] or ED for re-evaluation (re-eval recommended per ER nurse note as well). Original Note: Spoke with patient on the phone. Patient stated that she isnt doing well. Patient stated she had some questions and i transferred her to Edith our RN in for her to answer. Raymond Younger
[2024-11-02 13:22] LABS: Endomysial IgA Antibody Negative (Negative)
[2024-11-03 07:16] LABS: Reticulin IgA Antibody Negative titer (Neg:<1:2.5)
== END 2024-10-29 16:18 | disposition home or self-care (01) ==
LOC: ER 14:50 → 2ND 18:29
PROVIDERS: Internal Medicine Gastroenterology; Nurse Practitioner Acute Care; Admitting Provider Student in an Organized Health Care Education/Training Program; Emergency Provider Emergency Medicine; PCP Family Medicine; Visit Provider Student in an Organized Health Care Education/Training Program
PROC: (CPT 43239; principal; 2024-10-29 07:30)
DX: K62.5 Hemorrhage of anus and rectum (principal); D50.0 Iron deficiency anemia secondary to blood loss (chronic); K21.9 Gastro-esophageal reflux disease without esophagitis; K22.4 Dyskinesia of esophagus; K44.9 Diaphragmatic hernia without obstruction or gangrene; K57.30 Diverticulosis of large intestine without perforation or abscess without bleeding; K64.2 Third degree hemorrhoids; I48.0 Paroxysmal atrial fibrillation; J44.9 Chronic obstructive pulmonary disease, unspecified; I10 Essential (primary) hypertension; E78.2 Mixed hyperlipidemia; I25.10 Atherosclerotic heart disease of native coronary artery without angina pectoris; E11.9 Type 2 diabetes mellitus without complications; N17.9 Acute kidney failure, unspecified; F17.210 Nicotine dependence, cigarettes, uncomplicated; J96.11 Chronic respiratory failure with hypoxia; Z99.81 Dependence on supplemental oxygen; Z79.899 Other long term (current) drug therapy; Z79.84 Long term (current) use of oral hypoglycemic drugs
CPT/HCPCS: 43239; 45350; 71045; 74174; 80053; 80307; 81001; 82728; 82962; 83036; 83516; 83540; 83550; 83605; 83690; 83735; 83880; 84484; 85014; 85018; 85025; 85610; 85730; 86255; 86256; 86803; 86850; 87389; 88305; 93005; 99285; C1889; G0378; J1642; J1756; J2270; J2550; J7030; J7120; J7620; Q9967

== ENCOUNTER 2024-10-31 14:12 | Emergency (ER) | payer MEDICARE, MEDICAID, SELFPAY ==
[2024-10-31] VITALS (13 sets, daily range): BP systolic 114–144; BP diastolic 75–89; PULSE 74–125; RESP 13–27; TEMP 36.8; O2SAT 80–99; BMI 29.9
--- NOTE | 2024-10-31 14:26 | ECG_ITS ---
APPROVED REPORT Exam: Resting ECG HR:100 bpm ECG Measurements Heart Rate 100 AXES QRSd 107 QRS 62 QT 290 T 130 QTc 347 Conclusion ATRIAL FIBRILLATION NONSPECIFIC ST & T-WAVE ABNORMALITY ABNORMAL ECG Electronically signed by : JOSE KUHN, 11/01/2024 20:24:29
--- NOTE | 2024-10-31 14:32 | HMH.EDGENADL ---
Discharge Plan Disposition Patient Disposition: Home, Self-Care Condition: Good Prescriptions Prescriptions: New oxycodone 5 mg tablet 5 mg PO Q8H PRN (Reason: pain) Qty: 4 0RF No Action omeprazole 40 mg capsule,delayed release(DR/EC) 40 mg PO DAILY atorvastatin 40 mg tablet 40 mg PO HS Qty: 90 3RF albuterol sulfate 90 mcg/actuation HFA aerosol inhaler 2 inh IH Q4HP PRN (Reason: Shortness Of Breath Or Wheezing) Qty: 6.7 2RF furosemide 20 mg tablet 20 mg PO DAILY Qty: 30 1RF duloxetine 60 mg capsule,delayed release(DR/EC) 60 mg PO BID 90 Days Qty: 180 1RF potassium chloride 10 mEq tablet extended release 10 meq PO DAILY Qty: 90 1RF magnesium oxide 400 mg magnesium tablet 400 mg PO BID Qty: 180 3RF nitroglycerin 0.4 mg tablet, sublingual 0.4 mg sublingual Q5MINP PRN (Reason: chest pain) Rx Instructions: do not exceed 3 doses per episode ropinirole 0.25 mg tablet 0.25 mg PO HS Qty: 30 2RF gabapentin 600 mg tablet 600 mg PO BID Qty: 60 5RF metoprolol succinate 50 mg tablet extended release 24 hr 50 mg PO DAILY Patient Comments: TAKE 1 TABLET(50 mg) orally daily for High Blood Pressure alprazolam 1 mg tablet 1 mg PO TIDP PRN (Reason: Anxiety) levothyroxine 100 mcg tablet 100 mcg PO DAILYDM trazodone 100 mg tablet 100 mg PO HS metformin 1,000 mg tablet 1,000 mg PO BIDWMEAL quetiapine 50 mg tablet 50 mg PO HS Brilinta 90 mg tablet 90 mg PO BID diltiazem HCl 180 mg Capsule,Extended Release 24hr 180 mg PO DAILY Qty: 30 0RF ranolazine 500 mg Tablet Extended Release 12 Hr 500 mg PO BID 30 Days Qty: 60 0RF amoxicillin 500 mg capsule 500 mg PO TID polyethylene glycol 3350 [Miralax] 17 gram/dose powder 17 g PO DAILY Qty: 510 0RF montelukast 10 mg tablet 10 mg PO HS rivaroxaban 20 mg Tablet 20 mg PO QPMWITHMEAL Referrals Follow up/Referrals: Juan C Colón MD [Primary Care Provider] - See instructions Activity Restrictions/Add. Instructions Additional Instructions/Restrictions: You were evaluated in the emergency department today. Some bleeding is expected after hemorrhoid banding, especially when you restart your blood thinner. Please follow-up closely with GI as well as with your primary care provider this week. Take Tylenol at home as needed for pain. Follow-up for reassessment of your electrolytes, including potassium and calcium. Return to the emergency department for new or worsening symptoms. I have prescribed you a brief course of oxycodone to take as needed for severe breakthrough pain, but use caution when taking this. It could be sedating, especially in commendation with your other controlled medications. Clinical Impressions Clinical Impression: GI bleed, Acidosis, lactic, Hypokalemia, Hypocalcemia Stand Alone Forms Stand Alone Forms: Work/School Release Instructions Patient Instructions: DI for Hemorrhoid Banding, DI for Hypokalemia Print Language Print Language: Maori Discharge ED Provider: Grisel Worthington General Adult HPI <José Luis Hadley MD - Last Filed: 10/31/24 15:19> General Chief complaint: PAIN Stated complaint: pain Time Seen by Provider: 10/31/24 14:14 History of Present Illness HPI narrative: Please note that above description of symptoms, in this electronic medical record under categorization of recalled from ER triage doctor by RN are reflective of an initial nursing assessment, however, is not reflective of my full history and physical exam that was personally taken and clarified. Consequentially, this preceding description of symptoms, which may include the patient's categorized chief complaint in the EMR, do not reflect my personal clinical impression, and the ultimate description of history of present illness and patient stated complaints should be deferred to this section of the note. Unless stated otherwise or congruent with this section of the note, additional signs, symptoms, or incongruence should be interpreted as inaccurate with my clinical impression. Related Data Home Medications ?Medication ?Instructions ?Recorded ?Confirmed omeprazole 40 mg capsule,delayed 40 mg PO DAILY 04/08/23 10/28/24 release nitroglycerin 0.4 mg sublingual 0.4 mg sublingual Q5MINP PRN chest 07/13/23 10/28/24 tablet pain montelukast 10 mg tablet 10 mg PO HS 03/17/24 10/28/24 rivaroxaban 20 mg tablet 20 mg PO QPMWITHMEAL 03/17/24 10/28/24 alprazolam 1 mg tablet 1 mg PO TIDP PRN Anxiety 08/22/24 10/28/24 levothyroxine 100 mcg tablet 100 mcg PO DAILYDM 08/22/24 10/28/24 metformin 1,000 mg tablet 1,000 mg PO BIDWMEAL 08/22/24 10/28/24 metoprolol succinate 50 mg 50 mg PO DAILY 08/22/24 10/28/24 tablet,extended release 24 hr quetiapine 50 mg tablet 50 mg PO HS 08/22/24 10/28/24 ticagrelor 90 mg tablet (Brilinta) 90 mg PO BID 08/22/24 10/28/24 trazodone 100 mg tablet 100 mg PO HS 08/22/24 10/28/24 amoxicillin 500 mg capsule 500 mg PO TID 10/29/24 10/29/24 Previous Rx's ?Medication ?Instructions ?Recorded ropinirole 0.25 mg tablet 0.25 mg PO HS #30 tabs 03/22/24 atorvastatin 40 mg tablet 40 mg PO HS #90 tabs 04/08/24 albuterol sulfate 90 mcg/actuation 2 inh inhalation Q4HP PRN 06/14/24 aerosol inhaler Shortness Of Breath Or Wheezing #6.7 grams gabapentin 600 mg tablet 600 mg PO BID #60 tabs 06/16/24 diltiazem HCl 180 mg 180 mg PO DAILY #30 caps 08/23/24 capsule,extended release 24 hr ranolazine 500 mg tablet,extended 500 mg PO BID 30 days #60 tabs 08/23/24 release,12 hr furosemide 20 mg tablet 20 mg PO DAILY #30 tabs 09/03/24 duloxetine 60 mg capsule,delayed 60 mg PO BID 90 days #180 caps 09/23/24 release potassium chloride 10 mEq 10 meq PO DAILY #90 tabs 09/23/24 tablet,extended release magnesium oxide 400 mg PO BID #180 tabs 10/15/24 polyethylene glycol 3350 17 17 g PO DAILY #510 grams 10/29/24 gram/dose oral powder (Miralax) oxycodone 5 mg tablet 5 mg PO Q8H PRN pain #4 tabs 10/31/24 Allergies Allergy/AdvReac Type Severity Reaction Status Date / Time codeine (CODEINE) Allergy Intermediate N/V Verified 09/21/24 11:49 ketorolac (KETOROLAC) Allergy Intermediate Hives Verified 09/21/24 11:49 meperidine (MEPERIDINE) Allergy Intermediate Hives Verified 09/21/24 11:49 tramadol (TRAMADOL) Allergy Intermediate Hives Verified 09/21/24 11:49 verapamil Allergy Mild Unknown Verified 09/21/24 11:49 allergy reaction ciprofloxacin AdvReac Severe Interacts Verified 09/21/24 11:49 with cymbalta [facility] <José Luis Hadley MD - Last Filed: 10/31/24 15:19> PFS Disclaimer: The information contained in this section may have been updated after the patient was seen, as this information can be updated by other users. Medical History (Updated 10/31/24 @ 17:11 by Grisel Worthington DO) Tobacco dependence in remission Pancreas [place] pancreas Encounter for pre-operative cardiovascular clearance Orthopnea CHF (congestive heart failure) Pancreatitis Nausea vomiting and diarrhea Exhausted vascular access Rib fractures Chronic hypoxemic respiratory failure Coronary artery disease COPD (chronic obstructive pulmonary disease) HLD (hyperlipidemia) Diabetes Anxiety and depression TIA (transient ischemic attack) History of stroke History of multiple cerebrovascular accidents (CVAs) History of class III angina pectoris Typical angina Dyspnea History of pancreatitis History of CVA (cerebrovascular accident) Surgical History History of biliary duct stent placement History of hysterectomy History of cholecystectomy History of coronary artery stent placement Family History Other Family history of cancer Family history of diabetes mellitus Social History (Updated 10/28/24 @ 23:02 by Kristi Mcleod RN) Smoking Status: Current every day smoker tobacco type: cigarettes packs per day: 1 second hand exposure: No alcohol intake: never counseling provided: none substance use type: marijuana and crack/cocaine current occupational status: disabled and other household members: significant other housing: house marital status: single number of children: 2 current occupational exposures/hazards: No caffeine: Yes Other Medical History Have you received the Flu Vaccine for this season: No Have you received the Pneumonia Vaccine: No <José Luis Hadley MD - Last Filed: 10/31/24 15:19> ROS Obtained: Yes All systems reviewed & no additional complaints except as documented Physical Exam <José Luis Hadley MD - Last Filed: 10/31/24 15:19> General General appearance: alert, in distress (Secondary to discomfort, anxious, agitated) and obese Head Head exam: atraumatic and normocephalic Eye Eye exam: Present normal appearance, PERRL and EOMI Neck Neck exam: Present normal inspection, full ROM and trachea midline Respiratory Respiratory exam: Present normal lung sounds bilaterally; Absent respiratory distress, wheezes, stridor, accessory muscle use or prolonged expiratory phase Cardiovascular Cardiovascular exam: Present tachycardia, irregular rhythm and other (Pulses equal symmetric in upper and lower extremities) Abdominal Exam Abdominal exam: Present soft and tenderness; Absent distention, guarding, rebound, rigidity or pulsatile mass Abdominal tenderness: Present LLQ, suprapubic and moderate Extremities Exam Extremities exam: Absent edema Neurological Exam Neurological exam: Present alert, oriented X3 and CN II-XII intact; Absent motor sensory deficit Skin Skin exam: Present warm, dry and pallor; Absent diaphoresis or erythema Medical Decision Making <José Luis Hadley MD - Last Filed: 10/31/24 15:19> Medical Records Medical records reviewed: Yes I reviewed the patient's medical records. Screening: Per USPSTF and CDC recommendations, given the prevalence of disease in our region, it is our hospital?s policy to screen for HIV and viral Hepatitis for all patients aged 18 and over and those with ongoing risk factors. [place] Inquiry Pt receiving controlled substance: No [place] was queried for this patient: No Vital Signs: 10/31/24 14:13 10/31/24 14:25 10/31/24 14:30 Temperature 98.2 F Temperature Source Oral Pulse Rate 125 H 110 H Pulse Rate [Left Radial] 100 H Respiratory Rate 20 22 21 Blood Pressure Blood Pressure [Right Arm] 120/77 Blood Pressure Mean [Right Arm] 91 Blood Pressure Source 02 Sat by Pulse Oximetry 95 94 L 90 L Oxygen Delivery Method Nasal Cannula Oxygen Flow Rate (LPM) 2 10/31/24 14:31 10/31/24 14:45 10/31/24 15:00 Temperature Temperature Source Pulse Rate 74 115 H 123 H Pulse Rate [Left Radial] Respiratory Rate 16 17 22 Blood Pressure 128/77 Blood Pressure [Right Arm] Blood Pressure Mean [Right Arm] Blood Pressure Source 02 Sat by Pulse Oximetry 91 L 96 99 Oxygen Delivery Method Oxygen Flow Rate (LPM) 10/31/24 15:02 10/31/24 15:19 10/31/24 15:30 Temperature Temperature Source Pulse Rate 122 H 107 H Pulse Rate [Left Radial] Respiratory Rate 27 H 13 Blood Pressure 118/88 Blood Pressure [Right Arm] Blood Pressure Mean [Right Arm] Blood Pressure Source 02 Sat by Pulse Oximetry 96 80 L 96 Oxygen Delivery Method Oxygen Flow Rate (LPM) 10/31/24 15:49 10/31/24 16:01 10/31/24 16:31 Temperature Temperature Source Pulse Rate 109 H 98 H 116 H Pulse Rate [Left Radial] Respiratory Rate 14 20 Blood Pressure 144/89 H 114/75 Blood Pressure [Right Arm] Blood Pressure Mean [Right Arm] Blood Pressure Source 02 Sat by Pulse Oximetry 95 96 92 L Oxygen Delivery Method Oxygen Flow Rate (LPM) 10/31/24 17:48 Temperature 98.2 F Temperature Source Oral Pulse Rate 102 H Pulse Rate [Left Radial] Respiratory Rate 20 Blood Pressure 132/86 Blood Pressure [Right Arm] Blood Pressure Mean [Right Arm] Blood Pressure Source Automatic Cuff 02 Sat by Pulse Oximetry Oxygen Delivery Method Nasal Cannula Oxygen Flow Rate (LPM) 2 Lab Data Lab Results 10/31/24 14:26: VBG pH 7.39, VBG pCO2 37.1, VBG pO2 39.2, VBG HCO3 22.1 L, VBG Total CO2 23.2, VBG O2 Saturation 68.8, VBG Base Excess -2.9 L, VBG Lactic Acid 4.6 H 10/31/24 14:30: WBC 11.2 H D, RBC 3.92 L, Hgb 8.3 L, Hct 28.6 L, MCV 73.0 L, MCH 21.1 L, MCHC 28.9 L, RDW 20.3 H, Plt Count 462 H, MPV 8.1, Neut % (Auto) 64.7, Lymph % (Auto) 27.5, [place] % (Auto) 4.3, Eos % (Auto) 3.0, Baso % (Auto) 0.5, Neut # (Auto) 7.3, Lymph # (Auto) 3.1, [place] # (Auto) 0.5, Eos # (Auto) 0.3, Baso # (Auto) 0.1, PT 14.3 H, INR 1.31 H, APTT 31.3 H, Sodium 139, Potassium 2.9 L*, Chloride 103, Carbon Dioxide 23, Anion Gap 15.9 H, BUN 11 D, Creatinine 1.00, Estimated Creat Clear 73, Estimated GFR 56 L, Est GFR ( Amer) 68, Glucose 130 H, Calcium 8.0 L, Total Bilirubin 0.8, AST 31 D, ALT 21 D, Alkaline Phosphatase 114, Total Protein 7.1, Albumin 3.9, Globulin 3.2, Albumin/Globulin Ratio 1.2, Blood Type B Positive, Antibody Screen Negative 10/31/24 14:30 10/31/24 14:30 Orders (Tests/Meds): ED MEDICATIONS Discontinued Medications Generic Name Dose Route Start Last Admin Trade Name Freq PRN Reason Stop Dose Admin Heparin Sodium (Porcine) 300 unit 10/31/24 18:06 10/31/24 18:08 Heparin Lock Flush 500 Units/5ml Syr IV 10/31/24 18:07 300 unit ONCE ONE Administration Hydromorphone HCl 0.5 mg 10/31/24 14:26 10/31/24 14:41 Hydromorphone 2mg/Ml Syringe IV 10/31/24 14:27 0.5 mg ONCE ONE Administration Ampicillin Sodium/Sulbactam 100 mls @ 200 mls/hr 10/31/24 14:50 10/31/24 15:26 Sodium 3 gm/ Sodium Chloride IV 10/31/24 14:51 200 mls/hr ONCE ONE Administration Calcium Gluconate/Sodium Chloride 2 gm in 100 mls @ 50 mls/hr 10/31/24 15:11 10/31/24 15:33 Calcium Gluconate 2,000mg/100ml Nacl Premix IV 10/31/24 17:10 50 mls/hr ONCE ONE Administration Potassium Chloride/Water 100 mls @ 50 mls/hr 10/31/24 15:11 10/31/24 17:34 Potassium Chloride 20meq/100ml Ivpb IV 10/31/24 19:10 Not Given Q2H CRISTOPHER Lactated Ringer's 1,710 mls @ 855 mls/hr 10/31/24 15:15 10/31/24 15:29 Lactated Ringer's 1000 Ml Bag 30 ml/kg infuse over 2 hr (1710 ml) 10/31/24 17:14 855 mls/hr IV Administration .Q2H ONE Iopamidol 80 ml 10/31/24 15:11 10/31/24 15:12 Iopamidol-370 (76%);100ml Bottle IV 10/31/24 15:12 80 ml ONCE ONE Administration Oxycodone HCl 5 mg 10/31/24 16:27 10/31/24 17:09 Oxycodone 5mg Immediate Release Tablet PO 10/31/24 16:28 5 mg ONCE ONE Administration Potassium Chloride 40 meq 10/31/24 17:39 10/31/24 17:59 Potassium Chloride 20meq Tab PO 10/31/24 17:40 40 meq ONCE ONE Administration Sodium Chloride 10 ml 10/31/24 15:11 10/31/24 15:12 Sodium Chloride 0.9% 10ml Syr (Rad Only) IV 10/31/24 15:12 10 ml ONCE ONE Administration ORDERS Category Date Time Status Type and Screen Stat BBK 10/31/24 14:[address] angio abdomen pelvis Stat Cat Scan 10/31/24 14:39 Completed Consult Sales Force Administrator [CONS] Routine Cons 10/31/24 16:12 Active Complete Blood Count Auto Diff Stat Lab 10/31/24 14:30 Completed Comprehensive Metabolic Panel Stat Lab 10/31/24 14:30 Completed PT INR [Prothrombin Time INR] Stat Lab 10/31/24 14:30 Completed PTT [Activated Partial Thrombo Time] Stat Lab 10/31/24 14:30 Completed Blood Culture Stat Micro 10/31/24 15:30 Received Venous Blood Gas Stat RT 10/31/24 14:26 Completed Medical Decision Narrative: This is a 64-year-old female history of hypertension, hyperlipidemia, paroxysmal A-fib on Xarelto, COPD on 2.5 L nasal cannula at home, obesity, CAD status post stenting, recent internal hemorrhoid banding x 2 just last week presenting with abdominal cramping and bright red blood per rectum. Patient states that she was doing well since discharge, came back to the emergency department today because just before arrival, she was having cramping lower abdominal pain that was moderate to severe in intensity, had a bowel movement that was almost entirely bright red blood. History obtained with patient. On arrival, patient anxious, appears to be in mild distress secondary to pain, agitated. Cardiac exam does not appear to have murmurs gallops or rubs, given patient moving around in bed, yelling, grunting, appears to have irregularly irregular rhythm. Lungs are clear. Abdomen is soft, nondistended, but moderately tender in suprapubic and left lower quadrant areas. No overlying skin changes. Differential includes diverticular bleed, internal hemorrhoid bleed, malignancy, perforation, acute blood loss anemia, among others. EKG independently interpreted. Patient in A-fib versus a flutter with RVR about 100 bpm with QRS narrow 107, QTc 347. No obvious acute ischemic change. Patient on continuous cardiac monitoring as well as continuous pulse oximetry,. patient was given 0.5 mg of Dilaudid for discomfort. Labs and imaging ordered. On independent interpretation of workup, leukocytosis, anemia, thrombocytosis. Chemistry with hypokalemia and hypocalcemia, this was repleted IV. Lactate 4.6, blood cultures drawn. Empiric Unasyn was given. Type and screen as well as CT angiogram of the abdomen pelvis pending at time of handoff to oncoming physician. Housing Officer disclaimer Much of this encounter note is an electronic bibliographic services specialist spoken language to printed text. Electronic bibliographic services specialist of the spoken language may permit errors. Although I have reviewed the note, some errors may still exist. <Grisel Worthington, DO - Last Filed: 10/31/24 23:26> Vital Signs: 10/31/24 14:13 10/31/24 14:25 10/31/24 14:30 Temperature 98.2 F Temperature Source Oral Pulse Rate 125 H 110 H Pulse Rate [Left Radial] 100 H Respiratory Rate 20 22 21 Blood Pressure Blood Pressure [Right Arm] 120/77 Blood Pressure Mean [Right Arm] 91 Blood Pressure Source 02 Sat by Pulse Oximetry 95 94 L 90 L Oxygen Delivery Method Nasal Cannula Oxygen Flow Rate (LPM) 2 10/31/24 14:31 10/31/24 14:45 10/31/24 15:00 Temperature Temperature Source Pulse Rate 74 115 H 123 H Pulse Rate [Left Radial] Respiratory Rate 16 17 22 Blood Pressure 128/77 Blood Pressure [Right Arm] Blood Pressure Mean [Right Arm] Blood Pressure Source 02 Sat by Pulse Oximetry 91 L 96 99 Oxygen Delivery Method Oxygen Flow Rate (LPM) 10/31/24 15:02 10/31/24 15:19 10/31/24 15:30 Temperature Temperature Source Pulse Rate 122 H 107 H Pulse Rate [Left Radial] Respiratory Rate 27 H 13 Blood Pressure 118/88 Blood Pressure [Right Arm] Blood Pressure Mean [Right Arm] Blood Pressure Source 02 Sat by Pulse Oximetry 96 80 L 96 Oxygen Delivery Method Oxygen Flow Rate (LPM) 10/31/24 15:49 10/31/24 16:01 10/31/24 16:31 Temperature Temperature Source Pulse Rate 109 H 98 H 116 H Pulse Rate [Left Radial] Respiratory Rate 14 20 Blood Pressure 144/89 H 114/75 Blood Pressure [Right Arm] Blood Pressure Mean [Right Arm] Blood Pressure Source 02 Sat by Pulse Oximetry 95 96 92 L Oxygen Delivery Method Oxygen Flow Rate (LPM) 10/31/24 17:48 Temperature 98.2 F Temperature Source Oral Pulse Rate 102 H Pulse Rate [Left Radial] Respiratory Rate 20 Blood Pressure 132/86 Blood Pressure [Right Arm] Blood Pressure Mean [Right Arm] Blood Pressure Source Automatic Cuff 02 Sat by Pulse Oximetry Oxygen Delivery Method Nasal Cannula Oxygen Flow Rate (LPM) 2 Lab Data Lab Results 10/31/24 14:26: VBG pH 7.39, VBG pCO2 37.1, VBG pO2 39.2, VBG HCO3 22.1 L, VBG Total CO2 23.2, VBG O2 Saturation 68.8, VBG Base Excess -2.9 L, VBG Lactic Acid 4.6 H 10/31/24 14:30: WBC 11.2 H D, RBC 3.92 L, Hgb 8.3 L, Hct 28.6 L, MCV 73.0 L, MCH 21.1 L, MCHC 28.9 L, RDW 20.3 H, Plt Count 462 H, MPV 8.1, Neut % (Auto) 64.7, Lymph % (Auto) 27.5, [place] % (Auto) 4.3, Eos % (Auto) 3.0, Baso % (Auto) 0.5, Neut # (Auto) 7.3, Lymph # (Auto) 3.1, [place] # (Auto) 0.5, Eos # (Auto) 0.3, Baso # (Auto) 0.1, PT 14.3 H, INR 1.31 H, APTT 31.3 H, Sodium 139, Potassium 2.9 L*, Chloride 103, Carbon Dioxide 23, Anion Gap 15.9 H, BUN 11 D, Creatinine 1.00, Estimated Creat Clear 73, Estimated GFR 56 L, Est GFR ( Amer) 68, Glucose 130 H, Calcium 8.0 L, Total Bilirubin 0.8, AST 31 D, ALT 21 D, Alkaline Phosphatase 114, Total Protein 7.1, Albumin 3.9, Globulin 3.2, Albumin/Globulin Ratio 1.2, Blood Type B Positive, Antibody Screen Negative Orders (Tests/Meds): ED MEDICATIONS Discontinued Medications Generic Name Dose Route Start Last Admin Trade Name Freq PRN Reason Stop Dose Admin Heparin Sodium (Porcine) 300 unit 10/31/24 18:06 10/31/24 18:08 Heparin Lock Flush 500 Units/5ml Syr IV 10/31/24 18:07 300 unit ONCE ONE Administration Hydromorphone HCl 0.5 mg 10/31/24 14:26 10/31/24 14:41 Hydromorphone 2mg/Ml Syringe IV 10/31/24 14:27 0.5 mg ONCE ONE Administration Ampicillin Sodium/Sulbactam 100 mls @ 200 mls/hr 10/31/24 14:50 10/31/24 15:26 Sodium 3 gm/ Sodium Chloride IV 10/31/24 14:51 200 mls/hr ONCE ONE Administration Calcium Gluconate/Sodium Chloride 2 gm in 100 mls @ 50 mls/hr 10/31/24 15:11 10/31/24 15:33 Calcium Gluconate 2,000mg/100ml Nacl Premix IV 10/31/24 17:10 50 mls/hr ONCE ONE Administration Potassium Chloride/Water 100 mls @ 50 mls/hr 10/31/24 15:11 10/31/24 17:34 Potassium Chloride 20meq/100ml Ivpb IV 10/31/24 19:10 Not Given Q2H CRISTOPHER Lactated Ringer's 1,710 mls @ 855 mls/hr 10/31/24 15:15 10/31/24 15:29 Lactated Ringer's 1000 Ml Bag 30 ml/kg infuse over 2 hr (1710 ml) 10/31/24 17:14 855 mls/hr IV Administration .Q2H ONE Iopamidol 80 ml 10/31/24 15:11 10/31/24 15:12 Iopamidol-370 (76%);100ml Bottle IV 10/31/24 15:12 80 ml ONCE ONE Administration Oxycodone HCl 5 mg 10/31/24 16:27 10/31/24 17:09 Oxycodone 5mg Immediate Release Tablet PO 10/31/24 16:28 5 mg ONCE ONE Administration Potassium Chloride 40 meq 10/31/24 17:39 10/31/24 17:59 Potassium Chloride 20meq Tab PO 10/31/24 17:40 40 meq ONCE ONE Administration Sodium Chloride 10 ml 10/31/24 15:11 10/31/24 15:12 Sodium Chloride 0.9% 10ml Syr (Rad Only) IV 10/31/24 15:12 10 ml ONCE ONE Administration ORDERS Category Date Time Status Type and Screen Stat BBK 10/31/24 14:[address] angio abdomen pelvis Stat Cat Scan 10/31/24 14:39 Completed Consult Sales Force Administrator [CONS] Routine Cons 10/31/24 16:12 Active Complete Blood Count Auto Diff Stat Lab 10/31/24 14:30 Completed Comprehensive Metabolic Panel Stat Lab 10/31/24 14:30 Completed PT INR [Prothrombin Time INR] Stat Lab 10/31/24 14:30 Completed PTT [Activated Partial Thrombo Time] Stat Lab 10/31/24 14:30 Completed Blood Culture Stat Micro 10/31/24 15:30 Received Venous Blood Gas Stat RT 10/31/24 14:26 Completed Medical Decision Narrative: This is a 64-year-old female history of hypertension, hyperlipidemia, paroxysmal A-fib on Xarelto, COPD on 2.5 L nasal cannula at home, obesity, CAD status post stenting, recent internal hemorrhoid banding x 2 just last week presenting with abdominal cramping and bright red blood per rectum. Patient states that she was doing well since discharge, came back to the emergency department today because just before arrival, she was having cramping lower abdominal pain that was moderate to severe in intensity, had a bowel movement that was almost entirely bright red blood. History obtained with patient. On arrival, patient anxious, appears to be in mild distress secondary to pain, agitated. Cardiac exam does not appear to have murmurs gallops or rubs, given patient moving around in bed, yelling, grunting, appears to have irregularly irregular rhythm. Lungs are clear. Abdomen is soft, nondistended, but moderately tender in suprapubic and left lower quadrant areas. No overlying skin changes. Differential includes diverticular bleed, internal hemorrhoid bleed, malignancy, perforation, acute blood loss anemia, among others. EKG independently interpreted. Patient in A-fib versus a flutter with RVR about 100 bpm with QRS narrow 107, QTc 347. No obvious acute ischemic change. Patient on continuous cardiac monitoring as well as continuous pulse oximetry,. patient was given 0.5 mg of Dilaudid for discomfort. Labs and imaging ordered. On independent interpretation of workup, leukocytosis, anemia, thrombocytosis. Chemistry with hypokalemia and hypocalcemia, this was repleted IV. Lactate 4.6, blood cultures drawn. Empiric Unasyn was given. Type and screen as well as CT angiogram of the abdomen pelvis pending at time of handoff to oncoming physician. Housing Officer disclaimer Much of this encounter note is an electronic bibliographic services specialist spoken language to printed text. Electronic bibliographic services specialist of the spoken language may permit errors. Although I have reviewed the note, some errors may still exist. DO Ander: I assumed care of the patient at 1500. On my assessment of the patient, she is lying in bed in no acute distress. She has had no recurrence and rectal bleeding since arrival. Vitals are normal on cardiac telemetry with exception of mild tachycardia. She does use cocaine. She has mildly elevated lactic acid, but otherwise labs are reassuring. I feel this could be explained by her substance use, as she is afebrile and nontoxic-appearing. CT scan not concerning for any acute pathology. Hemoglobin is actually improved from her prior. I had an indirect discussion with Dr. Lion with GI who advised that some bleeding after banding is not uncommon, especially since she restarted her Xarelto. I also had an interactive discussion with the hospitalist who advised that overall her workup looks better than prior and they feel she likely does not require admission for further workup. I had shared decision-making with the patient and she stated that if she could go home with couple days of pain medicine she would feel better. Advised her that I would only give her a few tablets, as I would not expect that she would have continued significant pain related to these hemorrhoids. She expressed understanding and agreement. She was discharged with strict return precautions and instructions for close follow-up with primary care. Blood cultures were pending at time of discharge. Critical Care <José Luis Hadley MD - Last Filed: 10/31/24 15:19> Critical Care Time Critical Care Time: Yes (ID, GI) Attestation: On 10/31/24, the high probability of a clinically significant, sudden or life threatening deterioration of the following system(s) required my full and direct attention, intervention and personal management. The time I documented below is in addition to time spent performing reported procedures but includes the following listed in this critical care notation. Total Time Total Critical Care Time: 35
--- NOTE | 2024-10-31 14:39 | CT_ITS ---
PROCEDURE INFORMATION: Exam: CTA Abdomen and Pelvis With Contrast Exam date and time: 10/31/2024 3:12 PM Age: 64 years old Clinical indication: Other: Recent colonoscopy and banding, new brbpr; Prior surgery; Surgery date: Post-operative (0-2 days) TECHNIQUE: Imaging protocol: Computed tomographic angiography of the abdomen and pelvis with contrast. Exam focused on the arteries. 3D rendering (Not supervised by radiologist): MIP and/or 3D reconstructed images were created by the technologist. Radiation optimization: All CT scans at this facility use at least one of these dose optimization techniques: automated exposure control; mA and/or kV adjustment per patient size (includes targeted exams where dose is matched to clinical indication); or iterative reconstruction. Contrast material: ISOVUE; Contrast volume: 80 ml; Contrast route: INTRAVENOUS (IV); COMPARISON: CT ANGIO ABDOMEN PELVIS 10/28/2024 3:41 PM FINDINGS: Tubes, catheters and devices: Central line terminates in the right atrium. Battery device in the subcutaneous posterior to the right abdomen Lungs: 5.6 mm pulmonary nodule and 4.2 mm pulmonary nodule in the left lower lobe series 5, image 30 . Additional pulmonary nodules in the left lower lobe Coronary arteries: Coronary artery calcifications may indicate coronary artery disease. Aorta: No aortic aneurysm. No aortic dissection. Celiac trunk and mesenteric arteries: No occlusion or significant stenosis. Renal arteries: No occlusion or significant stenosis. Right iliac arteries: No occlusion or significant stenosis. Left iliac arteries: No occlusion or significant stenosis. Liver: No mass. Gallbladder and biliary ducts: Cholecystectomy. Pancreas: Unremarkable. No mass. No ductal dilation. Spleen: Unremarkable. No splenomegaly. Adrenal glands: Unremarkable. No mass. Kidneys and ureters: 3.6 cm simple cyst right kidney . No follow-up imaging recommended . Stomach and bowel: Diverticulosis of the rectosigmoid. No diverticulitis Appendix: No evidence of appendicitis. Intraperitoneal space: Unremarkable. No free air. No significant fluid collection. Lymph nodes: Unremarkable. No enlarged lymph nodes. Urinary bladder: Unremarkable. No mass. Reproductive: Surgical resection of the uterus Bones/joints: No acute fracture. Soft tissues: Umbilical hernia contains fat IMPRESSION: No occlusion or stenosis 5.6 mm pulmonary nodule and 4.2 mm pulmonary nodule in the left lower lobe series 5, image 30 . Additional pulmonary nodules in the left lower lobe For patients at low risk (minimal or absent history of smoking and of other known risk factors), no routine follow-up is indicated. For patients at high risk (history of smoking or of other known risk factors), consider optional CT Chest at 12 months. (Reference: Tone) References: Tone Renteria, et al. Guidelines for Management of Incidental Pulmonary Nodules Detected on CT Images: From the Fleischner Society 2017. Radiology. 2017;284(1):228-243.
[2024-10-31] MEDS: HYDROMORPHONE 2MG/ML SYRINGE 0.5 MG IV (14:41)
[2024-10-31 14:46] LABS: VBG Base Excess -2.9 mmol/L (-2.4-2.3); VBG HCO3 22.1 mmol/L (23-30); VBG Oxygen Saturation 68.8 % (50-70); VBG PCO2 37.1 mmol/L (35-51); VBG PH 7.39 mmol/L (7.31-7.41); VBG PO2 39.2 mmol/L (28-40); VBG Total CO2 23.2 mmol/L (23-27)
[2024-10-31 14:49] LABS: Lactate Venous 4.6 mmol/L (0.4-2.0)
[2024-10-31 14:54] LABS: Albumin Level 3.9 g/dl (3.5-5.0); Chloride 103 mmol/L (98-107); Sodium 139 mmol/L (136-145)
[2024-10-31 14:57] LABS: Alanine Aminotransferase 21 U/L (12-78); Albumin/Globulin Ratio 1.2 (1.1-1.8); Alkaline Phosphatase 114 U/L (38-126); Anion Gap 15.9 mEq/L (5-15); Aspartate Amino Transferase 31 U/L (14-36); Bilirubin,Total 0.8 mg/dl (0.2-1.3); Blood Urea Nitrogen 11 mg/dl (7-17); Carbon Dioxide 23 mmol/L (22.0-30.0); Creatinine Clearance Estimated 73 mL/min (50-200); Estimated Glomerular Filt Rate 56 ml/min (>60); GFR (African American) 68 ML/MIN (>60); Globulin 3.2 g/dL (1.3-3.2); Total Protein,Serum 7.1 g/dl (6.3-8.2)
[2024-10-31 14:58] LABS: Glucose 130 mg/dl (74-100)
[2024-10-31 14:59] LABS: Basophils # 0.1 K/mm3 (0-0.2); Basophils % 0.5 % (0.1-2.0); Eosinophils # 0.3 K/mm3 (0.0-0.4); Hematocrit 28.6 % (37.0-47.0); Hemoglobin 8.3 g/dL (12.2-16.2); Lymphocytes # 3.1 K/mm3 (0.7-4.5); Lymphocytes % 27.5 % (10-50); Mean Corpuscular HGB Conc 28.9 g/dL (31.8-35.4); Mean Corpuscular Hemoglobin 21.1 pg (27.0-31.2); Mean Platelet Volume 8.1 fl (7.4-10.4); Monocytes # 0.5 K/mm3 (0.1-1.0); Monocytes % 4.3 % (1.7-9.3); Neutrophils # 7.3 K/mm3 (1.8-7.8); Neutrophils % 64.7 % (37.0-80.0); Platelet Count 462 K/mm3 (142-424); Red Blood Count 3.92 M/mm3 (4.20-5.40); Red Cell Distribution Width 20.3 % (11.5-17.5); White Blood Count 11.2 K/mm3 (4.8-10.8)
[2024-10-31 15:00] LABS: Activated Partial Thrombo Time 31.3 seconds (22.8-30.6); INR 1.31 (0.9-1.1); Potassium 2.9 mmoL/L (3.5-5.1); Prothrombin Time 14.3 seconds (10.1-12.5)
[2024-10-31] MEDS: IOPAMIDOL-370 (76%);100ML BOTTLE 80 ML IV (15:12)
[2024-10-31] MEDS: SODIUM CHLORIDE 0.9% 10ML SYR (RAD ONLY) 10 ML IV (15:12)
[2024-10-31] MEDS: AMPICILLIN/SULBACTAM 3 GM in 0.9 % SODIUM CHLORIDE 100 ML IV (15:26)
[2024-10-31] MEDS: LACTATED RINGERS 1000ML 1,710 ML 855 ML IV (15:29)
[2024-10-31] MEDS: KCl 20mEq/100ml 100 ML 50 MEQ IV (15:33)
[2024-10-31] MEDS: CALCIUM GLUC IN NACL, ISO-OSM 2 GM/100 ML BAG IV (15:33)
--- NOTE | 2024-10-31 16:18 | PC.NURSE ---
Dr. Worthington is s/w pt regarding results and POC
[2024-10-31] MEDS: OXYCODONE 5MG IMMEDIATE RELEASE TABLET 5 MG PO (17:09)
[2024-10-31] MEDS: POTASSIUM CHLORIDE 20MEQ TAB 40 MEQ PO (17:59)
[2024-10-31 18:49] LABS: Reflex Lactic Add Lactic Reflex
--- NOTE | 2024-11-01 10:09 | PC.NURSE ---
Discussed preliminary results with Dr. Glez, asked ot call pt and let them know they should return to ER for evaluation and new blood draw for a possibility of infection. Pt states she stills feels unwell and stated her understanding she should be re-evaluated.
--- NOTE | 2024-11-01 20:34 | PEERSUPPORT ---
Peer Support Note Patient Information Patient Information: DOS: 11/01/2024 ? Reason: STIM UD/Ps Consult ? Patient is tearful, when stating someone had called her from the ED saying her bloodwork showed positive for an infection. Pt is hysterical and says she has no way back? to the ED. Ps provided active listening to validate feelings, then offering to ask ED nurse and staff to clarify. ? Ps acted as advocate with ED staff and nurse to further understand. Moni Rayo RN stated she had attempted to call her leaving a voicemail in regard to recommendation of being reevaluated at local hospital or PCP, as preliminary results were showing positive. ? ? Ps contacted patient to inform her of recommendation to be reevaluated base on Moni OZUNA voicemail she had left on patients phone. ? Pt states she is calmed down now and resting to not think about it at this time, she will get a plan in the morning to return to the [facility] ED when she has a ride or her daughter is home from work. ? Pt says she is not using any substances and does not plan to agreeing on? follow up phone calls with ps because she does need help. ? Ps will follow up following day offering positive support for recovery and wellbeing. ? Thank you for allowing [facility] to assist in caring for the patient!?
--- NOTE | 2024-11-03 11:50 | PC.NURSE ---
BLOOD CULTURES DISCUSSED WITH DR. MERCER. ATTEMPTED TO REACH PT. MESSAGE LEFT
== END 2024-10-31 18:40 | disposition home or self-care (01) ==
PROVIDERS: Emergency Medicine; Emergency Provider Emergency Medicine; PCP Family Medicine
DX: E83.51 Hypocalcemia (principal); E87.6 Hypokalemia; E87.20 Acidosis, unspecified; K92.2 Gastrointestinal hemorrhage, unspecified; R10.84 Generalized abdominal pain
CPT/HCPCS: 74174; 80053; 82803; 85025; 85610; 85730; 86850; 87040; 87077; 87186; 93005; 96361; 96365; 96374; 96375; 99285; J0295; J1171; J1642; J7120; Q9967

== ENCOUNTER 2024-11-18 12:48 | Outpatient (CLI) | payer MEDICARE, MEDICAID, SELFPAY ==
[2024-11-18 13:46] LABS: White Blood Count 10.6 K/mm3 (4.8-10.8)
[2024-11-18 13:47] LABS: Hematocrit 35.5 % (37.0-47.0); Hemoglobin 9.7 g/dL (12.2-16.2); Mean Corpuscular HGB Conc 27.6 g/dL (31.8-35.4); Mean Corpuscular Hemoglobin 21.1 pg (27.0-31.2); Mean Corpuscular Volume 76.7 fl (81-99); Mean Platelet Volume 10.4 fl (7.4-10.4); Platelet Count 417 K/mm3 (142-424); Red Blood Count 4.59 M/mm3 (4.20-5.40); Red Cell Distribution Width 20.2 % (11.5-17.5)
[2024-11-18 13:48] LABS: Basophils # 0.1 K/mm3 (0-0.2); Basophils % 0.6 % (0.1-2.0); Eosinophils # 0.3 K/mm3 (0.0-0.4); Eosinophils % 2.6 % (0.1-12.0); Lymphocytes # 2.3 K/mm3 (0.7-4.5); Lymphocytes % 21.9 % (10-50); Monocytes # 0.6 K/mm3 (0.1-1.0); Monocytes % 5.7 % (1.7-9.3); Neutrophils # 7.3 K/mm3 (1.8-7.8)
[2024-11-18 14:03] LABS: Iron 41 ug/dL (37-170)
[2024-11-18 14:12] LABS: Total Iron Binding Capacity 493 ug/dL (265-497)
== END 2024-11-18 23:59 | disposition home or self-care (01) ==
LOC: LAB 12:49
PROVIDERS: PCP Family Medicine; Visit Provider Family Medicine
DX: D50.0 Iron deficiency anemia secondary to blood loss (chronic) (principal)
CPT/HCPCS: 36415; 83540; 83550; 85025; 86140

== ENCOUNTER 2024-12-16 13:31 | Outpatient (POV) | payer MEDICARE, MEDICAID, SELFPAY ==
--- NOTE | 2024-12-16 13:53 | A.OFFVIS_ITS ---
[facility] Disclaimer: The information contained in this section may have been updated after the patient was seen, as this information can be updated by other users. Medical History Tobacco dependence in remission Pancreas divisum of [place] pancreas Encounter for pre-operative cardiovascular clearance Orthopnea CHF (congestive heart failure) Pancreatitis Nausea vomiting and diarrhea Exhausted vascular access Rib fractures Chronic hypoxemic respiratory failure Coronary artery disease COPD (chronic obstructive pulmonary disease) HLD (hyperlipidemia) Diabetes Anxiety and depression TIA (transient ischemic attack) History of stroke History of multiple cerebrovascular accidents (CVAs) History of class III angina pectoris Typical angina Dyspnea History of pancreatitis History of CVA (cerebrovascular accident) Surgical History History of biliary duct stent placement History of hysterectomy History of cholecystectomy History of coronary artery stent placement Family History Other Family history of cancer Family history of diabetes mellitus Social History Smoking Status: Current every day smoker tobacco type: cigarettes packs per day: 1 second hand exposure: No alcohol intake: never counseling provided: none substance use type: marijuana and crack/cocaine current occupational status: disabled and other Travel in the last 8 weeks: None household members: significant other housing: house marital status: single number of children: 2 current occupational exposures/hazards: No caffeine: Yes Have you lived/traveled outside [place] in past 30 days?: No Contact w/someone who lives/traveled outside US past 30 days?: No Exposure to someone with infectious disease in past 14 days?: No Do you have a fever (greater than 100.4 F or 38 C)?: No Have you tested positive for COVID-19: No Exposed to someone with COVID-19 in past 14 days?: No Do you have a sore throat?: No Do you have a cough?: No Do you have any weakness?: No Do you have any diarrhea?: No Are you experiencing any unusual bleeding?: No Do you have any muscle aches/pain?: No Do you have any abdominal pain?: No Are you experiencing loss of taste or smell?: No PM Subjective & Objective Subjective Subjective:: Patient is a pleasant 64-year-old female who presents today for medication refill and follow-up. Today she rates her pain a 5 out of 10. Patient denies any new injuries or trauma. She does state from her last appointment she has been diagnosed with diabetic neuropathy. She also states that she is having all kinds of trouble with her right hip causing pain. She is currently managed with bupivacaine 20 mg/mL with a daily dose of 2.75 mg/day along with ropinirole 0.25 mg at bedtime and gabapentin 600 mg twice a day. She denies any side effects from this medication. She is requesting refills. Her Delroy has been reviewed and is appropriate. Review of Systems: General: No recent weight changes, no fever, no sleep disturbances Respiratory: No cough, no shortness of air, no recurring pulmonary infections Cardiovascular/peripheral vascular: No chest pain, no palpitations, no edema, no shortness of breath Gastrointestinal: No new onset incontinence, normal bowel movements reported Genitourinary: No new onset incontinence Musculoskeletal: Low back pain Psychiatric: [Normal mood/affect] Neurological: [Denies weakness in extremities], [denies balance issues] Pain at rest (0-10 scale): 5 Objective Objective:: Physical Exam: General: Alert and oriented x3, no acute distress, pleasant and cooperative Lungs: Respirations even and unlabored, symmetrical chest expansion Eyes: PERRL Musculoskeletal: Flexion and extension of lumbar [spine] somewhat guarded secondary to pain, [antalgic gait noted] Neurological: Speech clear, no gross sensory deficit Has patient had previous pain injection?: No Conservative treatment options previously tried: Home exercise plan Length of treatment: Longer than 12 weeks Meds Home Medications and Allergies Home Medications ?Medication ?Instructions ?Recorded ?Confirmed ?Type omeprazole 40 mg capsule,delayed 40 mg PO DAILY 04/08/23 11/18/24 History release montelukast 10 mg tablet 10 mg PO HS 03/17/24 11/18/24 History ropinirole 0.25 mg tablet 0.25 mg PO HS #30 tabs 03/22/24 11/18/24 Rx atorvastatin 40 mg tablet 40 mg PO HS #90 tabs 04/08/24 11/18/24 Rx albuterol sulfate 90 mcg/actuation 2 inh inhalation Q4HP PRN 06/14/24 11/18/24 Rx aerosol inhaler Shortness Of Breath Or Wheezing #6.7 grams levothyroxine 100 mcg tablet 100 mcg PO DAILYDM 08/22/24 11/18/24 History metoprolol succinate 50 mg 50 mg PO DAILY 08/22/24 11/18/24 History tablet,extended release 24 hr ticagrelor 90 mg tablet (Brilinta) 90 mg PO BID 08/22/24 11/18/24 History trazodone 100 mg tablet 100 mg PO HS 08/22/24 11/18/24 History diltiazem HCl 180 mg 180 mg PO DAILY #30 caps 08/23/24 10/29/24 Rx capsule,extended release 24 hr duloxetine 60 mg capsule,delayed 60 mg PO BID 90 days #180 caps 09/23/24 11/18/24 Rx release potassium chloride 10 mEq 10 meq PO DAILY #90 tabs 09/23/24 11/18/24 Rx tablet,extended release magnesium oxide 400 mg PO BID #180 tabs 10/15/24 11/18/24 Rx polyethylene glycol 3350 17 17 g PO DAILY #510 grams 10/29/24 11/18/24 Rx gram/dose oral powder (Miralax) quetiapine 50 mg tablet See Rx Instructions .Route 11/01/24 11/18/24 Rx .COMPLEX #30 tabs furosemide 20 mg tablet 20 mg PO DAILY #30 tabs 11/10/24 11/18/24 Rx metformin 1,000 mg tablet 1,000 mg PO BIDWMEAL #60 tabs 11/10/24 11/18/24 Rx ferrous sulfate 325 mg (65 mg 325 mg PO BID #60 tabs 11/14/24 11/18/24 Rx iron) tablet sulfamethoxazole 800 1 tab PO BID #20 tabs 11/18/24 11/18/24 Rx mg-trimethoprim 160 mg tablet (Bactrim DS) nitroglycerin 0.4 mg sublingual 0.4 mg sublingual Q5MINP PRN chest 11/19/24 Rx tablet pain #10 tabs ranolazine 500 mg tablet,extended 500 mg PO BID 30 days #60 tabs 11/19/24 Rx release,12 hr alprazolam 0.5 mg tablet See Rx Instructions .Route 12/09/24 Rx .COMPLEX PRN anxiety #42 tabs gabapentin 600 mg tablet 600 mg PO BID #14 tabs 12/10/24 Rx rivaroxaban 20 mg tablet (Xarelto) See Rx Instructions .Route 12/10/24 Rx .COMPLEX #90 tabs ropinirole 0.25 mg tablet 0.25 mg PO HS #7 tabs 12/10/24 Rx New Prescriptions to Start Prescriptions: Allergies Allergy/AdvReac Type Severity Reaction Status Date / Time codeine (CODEINE) Allergy Intermediate N/V Verified 11/18/24 11:24 ketorolac (KETOROLAC) Allergy Intermediate Hives Verified 11/18/24 11:24 meperidine (MEPERIDINE) Allergy Intermediate Hives Verified 11/18/24 11:24 tramadol (TRAMADOL) Allergy Intermediate Hives Verified 11/18/24 11:24 verapamil Allergy Mild Unknown Verified 11/18/24 11:24 allergy reaction ciprofloxacin AdvReac Severe Interacts Verified 11/18/24 11:24 with cymbalta Assessment and Plan *Assessment and plan (1) Low back pain: Status: Acute Qualifiers: Back pain laterality: right Chronicity: chronic Sciatica laterality: sciatica of right side Sciatica presence: with sciatica Qualified Code(s): M54.41 - Lumbago with sciatica, right side; G89.29 - Other chronic pain Category: Medical Code(s): M54.50 - Low back pain, unspecified (2) Right hip pain: Status: Acute Category: Medical Code(s): M25.551 - Pain in right hip (3) Myofascial pain on right side: Status: Acute Category: Medical Code(s): M79.18 - Myalgia, other site Plan I will send in a 6-month supply of her gabapentin and ropinirole. I will also order the patient a compounded cream and I did discuss with her if the pain in her hip does not improve we can always see about injection therapy whether a intra-articular right hip injection or even trigger point into the muscle where it is tender to touch. We will follow-up with this at future visits. Patient is an at home refill client and will come in every 6 months for her oral medication refills and follow-up. Patient agrees with this plan of care. We will see the patient back in the clinic at the next intrathecal refill. Patient has been instructed to contact the clinic with any concerns before the next appointment. Dr. Emmanuel has reviewed this note and agrees with this plan of care. This note was dictated using voice recognition software and make contain errors or omissions. -- It Is medically necessary for this patient to continue to have their intrathecal pump refilled at regular intervals. This patient had an intrathecal pain pump implanted after meeting criteria of chronic intractable pain for greater than 3 months and failing conservative treatments. Patient has committed and been compliant to the treatment plan and all planned follow up care. Since implantation of the intrathecal pain pump, the patient has had decreased pain and been more functional. Oral medications have been reduced including intake of oral opioids. Patient continues to do well with intrathecal therapy with decrease in pain symptoms and increase in functional status. Stopping intrathecal medications can lead to life threatening withdrawal, seizures, cardiac arrest, severe pain, and possible . Pumps that are not refilled at regular intervals can be damages and cause and need for replacement. We continually titrate dose and concentration to optimize pain relief and function. We are limited in concentration for certain drugs to safely deliver medications through the pump and stay within the recommendations from the Polyanalges[employer] Consensus Committee Guidelines. Depending on dose and concentration these pumps may need to be refilled sooner than 3 months as we titrate. A UDS is needed to verify patient's compliance with our office pain contract. This is ordered based off specific treatments related to chronic pain with the potential to abuse certain medications.
[2024-12-16 14:24] VITALS: BP 122/69; PULSE 104; O2SAT 100; BMI 31.3
== END 2024-12-16 23:59 | disposition home or self-care (01) ==
PROVIDERS: PCP Family Medicine; Visit Provider Nurse Practitioner Family
DX: M54.41 Lumbago with sciatica, right side (principal); G89.29 Other chronic pain; M25.551 Pain in right hip; M79.18 Myalgia, other site; F17.210 Nicotine dependence, cigarettes, uncomplicated; Z79.899 Other long term (current) drug therapy
CPT/HCPCS: 99212; G0463

== ENCOUNTER 2025-02-16 20:21 | Observation (INO) | payer MEDICARE, MEDICAID, SELFPAY ==
[2025-02-16 20:10] VITALS: BP 94/51; PULSE 120; RESP 24; TEMP 36.9; O2SAT 90; BMI 30.7
--- NOTE | 2025-02-16 20:11 | [facility].EDCP ---
Discharge Plan Disposition Patient Disposition: Admitted Condition: Critical Clinical Impressions Clinical Impression: Acute on chronic respiratory failure with hypoxia and hypercapnia, Bilateral pleural effusion, Atrial fibrillation with rapid ventricular response, Hypomagnesemia Acute exacerbation of CHF (congestive heart failure) Qualifiers: Heart failure type: unspecified Qualified Code(s): I50.9 - Heart failure, unspecified Discharge ED Provider: José Luis Hadley HPI <CECIL Pavon - Last Filed: 02/16/25 21:57> General Chief Complaint: Chest Pain Stated Complaint: SOA Time Seen by Provider: 02/16/25 20:22 History of Present Illness HPI narrative: Patient presents for evaluation of shortness of breath and chest pain. Patient states that she has had a week of increasing shortness of breath and chest pain. Patient states that the chest pain started today. She chronically is on oxygen at 2-1/2 to 3 L. She has increased her oxygen and even took nitro today without relief. She does have a history of atrial fibrillation in the past currently on Xarelto. She denies fever chills hemoptysis hematochezia melena nausea vomiting diarrhea. When EMS arrived they noted that she was significantly hypoxic down into the 80s on her 2 L. And they found her in atrial fibrillation with rapid ventricular response. Related Data Home Medications ?Medication ?Instructions ?Recorded ?Confirmed omeprazole 40 mg capsule,delayed 40 mg PO DAILY 04/08/23 12/16/24 release ticagrelor 90 mg tablet (Brilinta) 90 mg PO BID 08/22/24 12/16/24 trazodone 100 mg tablet 100 mg PO HS 08/22/24 12/16/24 Previous Rx's ?Medication ?Instructions ?Recorded albuterol sulfate 90 mcg/actuation 2 inh inhalation Q4HP PRN 06/14/24 aerosol inhaler Shortness Of Breath Or Wheezing #6.7 grams diltiazem HCl 180 mg 180 mg PO DAILY #30 caps 08/23/24 capsule,extended release 24 hr duloxetine 60 mg capsule,delayed 60 mg PO BID 90 days #180 caps 09/23/24 release potassium chloride 10 mEq 10 meq PO DAILY #90 tabs 09/23/24 tablet,extended release magnesium oxide 400 mg PO BID #180 tabs 10/15/24 polyethylene glycol 3350 17 17 g PO DAILY #510 grams 10/29/24 gram/dose oral powder (Miralax) metformin 1,000 mg tablet 1,000 mg PO BIDWMEAL #60 tabs 11/10/24 sulfamethoxazole 800 1 tab PO BID #20 tabs 11/18/24 mg-trimethoprim 160 mg tablet (Bactrim DS) nitroglycerin 0.4 mg sublingual 0.4 mg sublingual Q5MINP PRN chest 11/19/24 tablet pain #10 tabs ranolazine 500 mg tablet,extended 500 mg PO BID 30 days #60 tabs 11/19/24 release,12 hr alprazolam 0.5 mg tablet See Rx Instructions .Route 12/09/24 .COMPLEX PRN anxiety #42 tabs rivaroxaban 20 mg tablet (Xarelto) See Rx Instructions .Route 12/10/24 .COMPLEX #90 tabs ropinirole 0.25 mg tablet 0.25 mg PO HS #7 tabs 12/10/24 gabapentin 600 mg tablet 600 mg PO BID #60 tabs 12/16/24 ropinirole 0.25 mg tablet 0.25 mg PO HS #30 tabs 12/16/24 quetiapine 50 mg tablet See Rx Instructions .Route 01/03/25 .COMPLEX #30 tabs montelukast 10 mg tablet 10 mg PO HS #30 tabs 01/07/25 ferrous sulfate 325 mg (65 mg 325 mg PO BID #60 tabs 01/20/25 iron) tablet azithromycin 500 mg tablet 500 mg PO DAILY 3 days #3 tabs 01/24/25 methylprednisolone 4 mg tablets in See Rx Instructions PO PER PKG DIR 01/24/25 a dose pack (Medrol (Matt)) #21 tabs atorvastatin 40 mg tablet 40 mg PO HS #90 tabs 02/07/25 metoprolol succinate 50 mg See Rx Instructions .Route 02/07/25 tablet,extended release 24 hr .COMPLEX #90 tabs furosemide 20 mg tablet 20 mg PO DAILY #30 tabs 02/15/25 levothyroxine 100 mcg tablet 100 mcg PO DAILYDM #90 tabs 02/15/25 albuterol sulfate 2.5 mg/3 mL 2.5 mg (3 mL) inhalation Q6H #180 02/16/25 (0.083 %) solution for nebulization mL Allergies Allergy/AdvReac Type Severity Reaction Status Date / Time codeine (CODEINE) Allergy Intermediate N/V Verified 11/18/24 11:24 ketorolac (KETOROLAC) Allergy Intermediate Hives Verified 11/18/24 11:24 meperidine (MEPERIDINE) Allergy Intermediate Hives Verified 11/18/24 11:24 tramadol (TRAMADOL) Allergy Intermediate Hives Verified 11/18/24 11:24 verapamil Allergy Mild Unknown Verified 11/18/24 11:24 allergy reaction ciprofloxacin AdvReac Severe Interacts Verified 11/18/24 11:24 with cymbalta [facility] <CECIL Pavon - Last Filed: 02/16/25 21:57> [facility] Disclaimer: The information contained in this section may have been updated after the patient was seen, as this information can be updated by other users. Medical History Tobacco dependence in remission Pancreas [place] pancreas Encounter for pre-operative cardiovascular clearance Orthopnea CHF (congestive heart failure) Pancreatitis Nausea vomiting and diarrhea Exhausted vascular access Rib fractures Chronic hypoxemic respiratory failure Coronary artery disease COPD (chronic obstructive pulmonary disease) HLD (hyperlipidemia) Diabetes Anxiety and depression TIA (transient ischemic attack) History of stroke History of multiple cerebrovascular accidents (CVAs) History of class III angina pectoris Typical angina Dyspnea History of pancreatitis History of CVA (cerebrovascular accident) Surgical History History of biliary duct stent placement History of hysterectomy History of cholecystectomy History of coronary artery stent placement Family History Other Family history of cancer Family history of diabetes mellitus Social History Smoking Status: Former smoker tobacco type: cigarettes packs per day: 1 second hand exposure: No alcohol intake: never counseling provided: none substance use type: marijuana and crack/cocaine current occupational status: other Travel in the last 8 weeks: None household members: significant other housing: house marital status: single number of children: 2 current occupational exposures/hazards: No caffeine: Yes Have you lived/traveled outside [place] in past 30 days?: No Contact w/someone who lives/traveled outside US past 30 days?: No Exposure to someone with infectious disease in past 14 days?: No Do you have a fever (greater than 100.4 F or 38 C)?: No Have you tested positive for COVID-19: No Exposed to someone with COVID-19 in past 14 days?: No Do you have a sore throat?: No Do you have a cough?: No Do you have any weakness?: No Do you have any diarrhea?: No Are you experiencing any unusual bleeding?: No Do you have any muscle aches/pain?: No Do you have any abdominal pain?: No Are you experiencing loss of taste or smell?: No Other Medical History Have you received the Flu Vaccine for this season: Yes Have you received the Pneumonia Vaccine: Yes <CECIL Pavon - Last Filed: 02/16/25 21:57> ROS Obtained: Yes Systems reviewed as appropriate & no additional complaints except as documented Physical Exam <CECIL Pavon - Last Filed: 02/16/25 21:57> General General appearance: alert and in no apparent distress Respiratory Respiratory exam: Present normal lung sounds bilaterally Cardiovascular Cardiovascular exam: Present tachycardia and irregular rhythm Neurological Exam Neurological exam: Present alert and oriented X3 HEART Score <CECIL Pavon - Last Filed: 02/16/25 21:57> HEART Score HEART Score assessment performed?: Yes History (anamnesis): Moderately suspicious ECG: Non-specific disturbance Age: >65 years Risk factors: 3 or more risk factors Troponin: </= normal limit HEART Score: 6 <José Luis Hadley MD - Last Filed: 02/16/25 22:52> HEART Score HEART Score: 6 Critical Care <CECIL Pavon - Last Filed: 02/16/25 21:57> Critical Care Time Critical Care Time: Yes Attestation: On 02/16/25, the high probability of a clinically significant, sudden or life threatening deterioration of the following system(s) required my full and direct attention, intervention and personal management. The time I documented below is in addition to time spent performing reported procedures but includes the following listed in this critical care notation. Total Time Total Critical Care Time: 60 Medical Decision Making <CECIL Pavon - Last Filed: 02/16/25 21:57> Medical Records Medical records reviewed: Yes I reviewed the patient's medical records. Delroy Inquiry Pt receiving controlled substance: No Vital Signs Vital Signs: 02/16/25 20:10 02/16/25 21:15 02/16/25 21:15 Temperature 98.4 F Temperature Source Oral Pulse Rate Pulse Rate [Right Brachial] 120 H Respiratory Rate 24 Blood Pressure Blood Pressure [Right Arm] 94/51 L Blood Pressure Mean [Right Arm] 65 Blood Pressure Source [Right Arm] Automatic Cuff Blood Pressure Position [Right Arm] Supine 02 Sat by Pulse Oximetry 90 L 96 Oxygen Delivery Method Room Air Nasal Cannula BiPAP Oxygen Flow Rate (LPM) 3 Fraction of Inspired Oxygen 30 02/16/25 22:16 02/16/25 22:44 Temperature 98.2 F Temperature Source Pulse Rate 95 H Pulse Rate [Right Brachial] Respiratory Rate 24 Blood Pressure 132/80 Blood Pressure [Right Arm] Blood Pressure Mean [Right Arm] Blood Pressure Source [Right Arm] Blood Pressure Position [Right Arm] 02 Sat by Pulse Oximetry Oxygen Delivery Method BiPAP Oxygen Flow Rate (LPM) Fraction of Inspired Oxygen 50 Lab Data Lab results reviewed: Yes I reviewed the patient's lab results. Labs: Lab Results 02/16/25 20:13: WBC 8.9, RBC 3.79 L, Hgb 10.5 L, Hct 34.8 L, MCV 91.8, MCH 27.7, MCHC 30.2 L, RDW 20.1 H, Plt Count 323, MPV 10.7 H, Neut % (Auto) 62.7, Lymph % (Auto) 28.2, [place] % (Auto) 5.6, Eos % (Auto) 2.9, Baso % (Auto) 0.3, Neut # (Auto) 5.6, Lymph # (Auto) 2.5, [place] # (Auto) 0.5, Eos # (Auto) 0.3, Baso # (Auto) 0.0, Sodium 139, Potassium 3.8, Chloride 103, Carbon Dioxide 29, Anion Gap 10.8, BUN 11, Creatinine 1.00, Estimated Creat Clear 77, Estimated GFR 56 L, Est GFR ( Amer) 68, Glucose 111 H, Calcium 9.0, Magnesium 1.5 L, Total Bilirubin 0.8, AST 26, ALT 25, Alkaline Phosphatase 102, Troponin I < 0.01, NT-Pro-B Natriuret Pep 2880 H, Total Protein 6.9, Albumin 4.1, Globulin 2.8, Albumin/Globulin Ratio 1.5, Procalcitonin 0.042 02/16/25 20:14: VBG pH 7.30 L, VBG pCO2 56.3 H, VBG pO2 40.4 H, VBG HCO3 27.3, VBG Total CO2 29.0 H, VBG O2 Saturation 66.3, VBG Base Excess 0.9, VBG Lactic Acid 2.2 H 02/16/25 20:26: Chlamy pneumoniae PCR Not detected, Adenovirus (PCR) Not detected, B. pertussis DNA (PCR) Not detected, Coronavirus OC43 (PCR) Not detected, Coronavirus HKU1 (PCR) Not detected, Coronavirus 229E (PCR) Not detected, SARS-CoV-2 (PCR) Not detected, Coronavirus NL63 (PCR) Not detected, Human Metapneumovir PCR Not detected, Influenza A (H1) PCR Not detected, Influ A (H1N1/09) PCR Not detected, Influenza A (H3) PCR Not detected, Influenza Type A (PCR) Not detected, Influenza Type B (PCR) Not detected, M. pneumoniae (PCR) Not detected, Parainfluenza 1 (PCR) Not detected, Parainfluenza 2 (PCR) Not detected, Parainfluenza 3 (PCR) Not detected, Parainfluenza 4 (PCR) Not detected, RSV (PCR) Not detected, Entero/Rhino (PCR) Not detected 02/16/25 20:13 02/16/25 20:13 Response Orders (Tests/Meds): ED MEDICATIONS Generic Name Dose Route Start Last Admin Trade Name Freq PRN Reason Stop Dose Admin Albuterol/Ipratropium 3 ml 02/17/25 02:00 Ipratropium/Albuterol 3 Ml Neb IH 03/19/25 01:59 Q4RT CRISTOPHER Famotidine 20 mg 02/17/25 09:00 Famotidine 20mg/2ml Vial IV 03/19/25 08:59 BID CRISTOPHER Ondansetron HCl 4 mg 02/16/25 22:38 Ondansetron 4mg/2ml Vial IV 03/18/25 22:37 Q6HP PRN Nausea Sodium Chloride 8 ml 02/16/25 22:38 Sodium Chloride 0.9% 10ml Vial IV 03/18/25 22:37 NEEDED PRN dilute famotidine Discontinued Medications Generic Name Dose Route Start Last Admin Trade Name Adam PRN Reason Stop Dose Admin Albuterol/Ipratropium 3 ml 02/16/25 20:12 02/16/25 20:32 Ipratropium/Albuterol 3 Ml Neb IH 02/16/25 20:13 3 ml ONCE ONE Administration Dexamethasone Sodium Phosphate 10 mg 02/16/25 20:12 02/16/25 20:26 Dexamethasone 4mg/Ml 5ml Mdv IV 02/16/25 20:13 10 mg ONCE ONE Administration Diltiazem HCl 20 mg 02/16/25 21:14 02/16/25 21:22 Diltiazem 25mg/5ml Vial IV 02/16/25 21:15 20 mg ONCE ONE Administration Furosemide 80 mg 02/16/25 21:06 02/16/25 21:09 Furosemide 40mg/4ml Vial IV 02/16/25 21:07 80 mg ONCE ONE Administration Hydromorphone HCl 0.5 mg 02/16/25 21:39 02/16/25 21:53 Hydromorphone 2mg/Ml Syringe IV 02/16/25 21:40 0.5 mg ONCE ONE Administration Magnesium Sulfate 2 gm in 50 mls @ 50 mls/hr 02/16/25 21:14 02/16/25 21:22 Magnesium Sulfate 2gm/50ml Premix IV 02/16/25 22:13 50 mls/hr ONCE ONE Administration Iopamidol 70 ml 02/16/25 20:48 02/16/25 20:56 Iopamidol-370 (76%);100ml Bottle IV 02/16/25 20:49 70 ml ONCE ONE Administration Ondansetron HCl 4 mg 02/16/25 20:12 02/16/25 20:26 Ondansetron 4mg/2ml Vial IV 02/16/25 20:13 4 mg ONCE ONE Administration Ondansetron HCl 4 mg 02/16/25 21:39 02/16/25 21:53 Ondansetron 4mg/2ml Vial IV 02/16/25 21:40 4 mg ONCE ONE Administration Sodium Chloride 50 ml 02/16/25 20:48 02/16/25 20:56 0.9 % Sodium Chloride 50 Ml Vial IV 02/16/25 20:49 50 ml ONCE ONE Administration Sodium Chloride 10 ml 02/16/25 20:48 02/16/25 20:56 Sodium Chloride 0.9% 10ml Syr (Rad Only) IV 02/16/25 20:49 10 ml ONCE ONE Administration ORDERS Category Date Time Status CT angio chest PE protocol Stat Cat Scan 02/16/25 20:13 Completed BNP [NT Pro Brain Natriuretic Pep.] Stat Lab 02/16/25 20:13 Completed CBC w/Auto Diff [Complete Blood Count Auto Diff] Stat Lab 02/16/25 20:13 Completed CMP [Comprehensive Metabolic Panel] Stat Lab 02/16/25 20:13 Completed Full Resp Panel w/COVID ([facility]) Routine Lab 02/16/25 20:26 Completed Magnesium Stat Lab 02/16/25 20:13 Completed Procalcitonin Stat Lab 02/16/25 20:13 Completed Trop I [Troponin I] Stat Lab 02/16/25 20:13 Completed Troponin I Q3H Lab 02/16/25 23:15 Ordered Troponin I Q3H Lab 02/17/25 02:15 Ordered VBG [Venous Blood Gas] Stat RT 02/16/25 20:14 Completed MDM Narrative Medical Decision Narrative: In summary patient is a 64-year-old female who presents to the emergency department for evaluation of dyspnea and chest pain. Patient is initially hypotensive with a blood pressure of 94/51 tachycardic at 120 with what appears to be atrial fibrillation with rapid ventricular response on the bedside monitor breathing 24 times a minute satting at 90% on 3 L by nasal cannula upon arrival, afebrile at 98.4. Physical exam is remarkable for tachypnea with increased work of breathing and accessory muscle use and Rales and rhonchi in all 4 garcia with diminished breath sounds at the bases. No palpable chest pain on exam. Differential diagnosis includes A-fib RVR versus ACS versus PE versus pneumonia etc. Initial workup will be conducted with hematologic labs VBG twelve-lead EKG CT PE protocol. Initial interventions include DuoNeb and Decadron for now until RUBIO more complete. Initial workup reviewed by me shows that his white count is 8.9 hemoglobin hematocrit are 10.5 and 34.8 with no neutrophilic shift, VBG shows a pH of 7.3 pCO2 56.3 VBG lactic acid of 2.2 magnesium of 1.5 procalcitonin is 0.042 and my informal interpretation of her CT scan PE protocol does not show any evidence of thrombus but does show significant pulmonary edema bilateral pleural effusions and her twelve-lead EKG shows atrial fibrillation with rapid ventricular response.. Upon repeat evaluation patient easily desaturates down into the 80s and given her RUBIO I have initiated BiPAP, 80 mg of Lasix IV push, 2 mg of magnesium IV push.. Given this I have had an interactive discussion with hospital medicine regarding patient RUBIO management and patient will be admitted for further evaluation and care. <José Luis Hadley MD - Last Filed: 02/16/25 22:52> Vital Signs Vital Signs: 02/16/25 20:10 02/16/25 21:15 02/16/25 21:15 Temperature 98.4 F Temperature Source Oral Pulse Rate Pulse Rate [Right Brachial] 120 H Respiratory Rate 24 Blood Pressure Blood Pressure [Right Arm] 94/51 L Blood Pressure Mean [Right Arm] 65 Blood Pressure Source [Right Arm] Automatic Cuff Blood Pressure Position [Right Arm] Supine 02 Sat by Pulse Oximetry 90 L 96 Oxygen Delivery Method Room Air Nasal Cannula BiPAP Oxygen Flow Rate (LPM) 3 Fraction of Inspired Oxygen 30 02/16/25 22:16 02/16/25 22:44 Temperature 98.2 F Temperature Source Pulse Rate 95 H Pulse Rate [Right Brachial] Respiratory Rate 24 Blood Pressure 132/80 Blood Pressure [Right Arm] Blood Pressure Mean [Right Arm] Blood Pressure Source [Right Arm] Blood Pressure Position [Right Arm] 02 Sat by Pulse Oximetry Oxygen Delivery Method BiPAP Oxygen Flow Rate (LPM) Fraction of Inspired Oxygen 50 Lab Data Labs: Lab Results 02/16/25 20:13: WBC 8.9, RBC 3.79 L, Hgb 10.5 L, Hct 34.8 L, MCV 91.8, MCH 27.7, MCHC 30.2 L, RDW 20.1 H, Plt Count 323, MPV 10.7 H, Neut % (Auto) 62.7, Lymph % (Auto) 28.2, [place] % (Auto) 5.6, Eos % (Auto) 2.9, Baso % (Auto) 0.3, Neut # (Auto) 5.6, Lymph # (Auto) 2.5, [place] # (Auto) 0.5, Eos # (Auto) 0.3, Baso # (Auto) 0.0, Sodium 139, Potassium 3.8, Chloride 103, Carbon Dioxide 29, Anion Gap 10.8, BUN 11, Creatinine 1.00, Estimated Creat Clear 77, Estimated GFR 56 L, Est GFR ( Amer) 68, Glucose 111 H, Calcium 9.0, Magnesium 1.5 L, Total Bilirubin 0.8, AST 26, ALT 25, Alkaline Phosphatase 102, Troponin I < 0.01, NT-Pro-B Natriuret Pep 2880 H, Total Protein 6.9, Albumin 4.1, Globulin 2.8, Albumin/Globulin Ratio 1.5, Procalcitonin 0.042 02/16/25 20:14: VBG pH 7.30 L, VBG pCO2 56.3 H, VBG pO2 40.4 H, VBG HCO3 27.3, VBG Total CO2 29.0 H, VBG O2 Saturation 66.3, VBG Base Excess 0.9, VBG Lactic Acid 2.2 H 02/16/25 20:26: Chlamy pneumoniae PCR Not detected, Adenovirus (PCR) Not detected, B. pertussis DNA (PCR) Not detected, Coronavirus OC43 (PCR) Not detected, Coronavirus HKU1 (PCR) Not detected, Coronavirus 229E (PCR) Not detected, SARS-CoV-2 (PCR) Not detected, Coronavirus NL63 (PCR) Not detected, Human Metapneumovir PCR Not detected, Influenza A (H1) PCR Not detected, Influ A (H1N1/09) PCR Not detected, Influenza A (H3) PCR Not detected, Influenza Type A (PCR) Not detected, Influenza Type B (PCR) Not detected, M. pneumoniae (PCR) Not detected, Parainfluenza 1 (PCR) Not detected, Parainfluenza 2 (PCR) Not detected, Parainfluenza 3 (PCR) Not detected, Parainfluenza 4 (PCR) Not detected, RSV (PCR) Not detected, Entero/Rhino (PCR) Not detected Response Orders (Tests/Meds): ED MEDICATIONS Generic Name Dose Route Start Last Admin Trade Name Freq PRN Reason Stop Dose Admin Albuterol/Ipratropium 3 ml 02/17/25 02:00 Ipratropium/Albuterol 3 Ml Neb IH 03/19/25 01:59 Q4RT CRISTOPHER Famotidine 20 mg 02/17/25 09:00 Famotidine 20mg/2ml Vial IV 03/19/25 08:59 BID CRISTOPHER Ondansetron HCl 4 mg 02/16/25 22:38 Ondansetron 4mg/2ml Vial IV 03/18/25 22:37 Q6HP PRN Nausea Sodium Chloride 8 ml 02/16/25 22:38 Sodium Chloride 0.9% 10ml Vial IV 03/18/25 22:37 NEEDED PRN dilute famotidine Discontinued Medications Generic Name Dose Route Start Last Admin Trade Name Freq PRN Reason Stop Dose Admin Albuterol/Ipratropium 3 ml 02/16/25 20:12 02/16/25 20:32 Ipratropium/Albuterol 3 Ml Neb IH 02/16/25 20:13 3 ml ONCE ONE Administration Dexamethasone Sodium Phosphate 10 mg 02/16/25 20:12 02/16/25 20:26 Dexamethasone 4mg/Ml 5ml Mdv IV 02/16/25 20:13 10 mg ONCE ONE Administration Diltiazem HCl 20 mg 02/16/25 21:14 02/16/25 21:22 Diltiazem 25mg/5ml Vial IV 02/16/25 21:15 20 mg ONCE ONE Administration Furosemide 80 mg 02/16/25 21:06 02/16/25 21:09 Furosemide 40mg/4ml Vial IV 02/16/25 21:07 80 mg ONCE ONE Administration Hydromorphone HCl 0.5 mg 02/16/25 21:39 02/16/25 21:53 Hydromorphone 2mg/Ml Syringe IV 02/16/25 21:40 0.5 mg ONCE ONE Administration Magnesium Sulfate 2 gm in 50 mls @ 50 mls/hr 02/16/25 21:14 02/16/25 21:22 Magnesium Sulfate 2gm/50ml Premix IV 02/16/25 22:13 50 mls/hr ONCE ONE Administration Iopamidol 70 ml 02/16/25 20:48 02/16/25 20:56 Iopamidol-370 (76%);100ml Bottle IV 02/16/25 20:49 70 ml ONCE ONE Administration Ondansetron HCl 4 mg 02/16/25 20:12 02/16/25 20:26 Ondansetron 4mg/2ml Vial IV 02/16/25 20:13 4 mg ONCE ONE Administration Ondansetron HCl 4 mg 02/16/25 21:39 02/16/25 21:53 Ondansetron 4mg/2ml Vial IV 02/16/25 21:40 4 mg ONCE ONE Administration Sodium Chloride 50 ml 02/16/25 20:48 02/16/25 20:56 0.9 % Sodium Chloride 50 Ml Vial IV 02/16/25 20:49 50 ml ONCE ONE Administration Sodium Chloride 10 ml 02/16/25 20:48 02/16/25 20:56 Sodium Chloride 0.9% 10ml Syr (Rad Only) IV 02/16/25 20:49 10 ml ONCE ONE Administration ORDERS Category Date Time Status CT angio chest PE protocol Stat Cat Scan 02/16/25 20:13 Completed BNP [NT Pro Brain Natriuretic Pep.] Stat Lab 02/16/25 20:13 Completed CBC w/Auto Diff [Complete Blood Count Auto Diff] Stat Lab 02/16/25 20:13 Completed CMP [Comprehensive Metabolic Panel] Stat Lab 02/16/25 20:13 Completed Full Resp Panel w/COVID ([facility]) Routine Lab 02/16/25 20:26 Completed Magnesium Stat Lab 02/16/25 20:13 Completed Procalcitonin Stat Lab 02/16/25 20:13 Completed Trop I [Troponin I] Stat Lab 02/16/25 20:13 Completed Troponin I Q3H Lab 02/16/25 23:15 Ordered Troponin I Q3H Lab 02/17/25 02:15 Ordered VBG [Venous Blood Gas] Stat RT 02/16/25 20:14 Completed ECG Data Tracing #1: Attestation: I reviewed this ECG and interpreted as documented below: (Ventricular rate 114 bpm with atrial fibrillation RVR. QRS 85, QTc 435. Normal axis. Nonspecific ST changes with no obvious elevations or acute ischemic change. Likely rate related) MDM Narrative Medical Decision Narrative: In summary patient is a 64-year-old female who presents to the emergency department for evaluation of dyspnea and chest pain. Patient is initially hypotensive with a blood pressure of 94/51 tachycardic at 120 with what appears to be atrial fibrillation with rapid ventricular response on the bedside monitor breathing 24 times a minute satting at 90% on 3 L by nasal cannula upon arrival, afebrile at 98.4. Physical exam is remarkable for tachypnea with increased work of breathing and accessory muscle use and Rales and rhonchi in all 4 garcia with diminished breath sounds at the bases. No palpable chest pain on exam. Differential diagnosis includes A-fib RVR versus ACS versus PE versus pneumonia etc. Initial workup will be conducted with hematologic labs VBG twelve-lead EKG CT PE protocol. Initial interventions include DuoNeb and Decadron for now until RUBIO more complete. Initial workup reviewed by me shows that his white count is 8.9 hemoglobin hematocrit are 10.5 and 34.8 with no neutrophilic shift, VBG shows a pH of 7.3 pCO2 56.3 VBG lactic acid of 2.2 magnesium of 1.5 procalcitonin is 0.042 and my informal interpretation of her CT scan PE protocol does not show any evidence of thrombus but does show significant pulmonary edema bilateral pleural effusions and her twelve-lead EKG shows atrial fibrillation with rapid ventricular response.. Upon repeat evaluation patient easily desaturates down into the 80s and given her RUBIO I have initiated BiPAP, 80 mg of Lasix IV push, 2 mg of magnesium IV push.. Given this I have had an interactive discussion with hospital medicine regarding patient RUBIO management and patient will be admitted for further evaluation and care. I was consulted by the STERLING, and we discussed the complexity of the problems being addressed. I approved the treatment and management plan for this patient's care in the Emergency Department, thus performing a substantive portion of the medical decision making. José Luis Hadley MD
--- NOTE | 2025-02-16 20:13 | CT_ITS ---
PROCEDURE INFORMATION: Exam: CTA Chest With Contrast Exam date and time: 02/16/2025 8:52 PM Age: 64 years old Clinical indication: Dyspnea; Additional info: Dyspnea hypoxia chest pain TECHNIQUE: Imaging protocol: Computed tomographic angiography of the chest with contrast. Exam focused on the arteries. 3D rendering (Not supervised by radiologist): MIP and/or 3D reconstructed images were created by the technologist. Radiation optimization: All CT scans at this facility use at least one of these dose optimization techniques: automated exposure control; mA and/or kV adjustment per patient size (includes targeted exams where dose is matched to clinical indication); or iterative reconstruction. Contrast material: ISOVUE; Contrast volume: 70 ml; Contrast route: INTRAVENOUS (IV); COMPARISON: CT CHEST WO CON 08/22/2024 6:25 PM FINDINGS: Tubes, catheters and devices: Central venous catheter tip at aorto caval junction. Pulmonary arteries: No pulmonary emboli. Aorta: Atherosclerotic calcification. No aortic aneurysm. Lungs: Underlying centrilobular edematous changes. Air trapping. Bilateral lower lobar compressive subsegmental atelectasis. Incidental right upper lobar calcified granuloma. Stable 1 cm right major intra fissural lymph node/nodule. 0.5 from 0.6 cm right middle lobar nodule. Pleural spaces: Bilateral [id number] pleural effusions right greater than left. No pneumothorax. Heart: Unremarkable. No cardiomegaly. No pericardial effusion. Coronary arteries: Atherosclerotic calcification of coronary arteries. Lymph nodes: Calcified mediastinal and hilar lymph nodes without lymphadenopathy. Bones/joints: Unremarkable. No acute fracture. Soft tissues: Unremarkable. IMPRESSION: 1. No central or segmental pulmonary arterial embolism identified. 2. Bilateral pleural effusions with compressive subsegmental atelectasis. 3. Air trapping with underlying emphysematous changes. 4. Stable pulmonary nodules. 5. Pulmonary nodule follow-up recommendation: 6. CT Chest at 3-6 months, then consider CT Chest at 18-24 months. For patients at high risk (history of smoking or of other known risk factors), recommend CT Chest at 3-6 months, then CT Chest at 18-24 months. (Reference: Tone) COMMENTS: The presence of pulmonary emphysema on CT is an independent risk factor for lung cancer. In the absence of a history or active diagnosis of lung cancer, it is recommended that this patient with emphysema be evaluated for enrollment in a low dose CT lung cancer screening program.
--- NOTE | 2025-02-16 20:14 | ECG_ITS ---
APPROVED REPORT Exam: Resting ECG HR:114 bpm ECG Measurements Heart Rate 114 AXES QRSd 85 QRS 55 QT 367 T 53 QTc 435 Conclusion A-nohemi RVR Electronically signed by : KATY BROTHERS, 02/17/2025 22:32:16
[2025-02-16] MEDS: ONDANSETRON 4MG/2ML VIAL 4 MG IV ×2 (20:26→21:53)
[2025-02-16] MEDS: DEXAMETHASONE 4MG/ML 5ML MDV 10 MG IV (20:26)
[2025-02-16 20:31] LABS: Alanine Aminotransferase 25 U/L (12-78); Albumin Level 4.1 g/dl (3.5-5.0); Albumin/Globulin Ratio 1.5 (1.1-1.8); Alkaline Phosphatase 102 U/L (38-126); Anion Gap 10.8 mEq/L (5-15); Aspartate Amino Transferase 26 U/L (14-36); Bilirubin,Total 0.8 mg/dl (0.2-1.3); Blood Urea Nitrogen 11 mg/dl (7-17); Carbon Dioxide 29 mmol/L (22.0-30.0); Chloride 103 mmol/L (98-107); Creatinine Clearance Estimated 77 mL/min (50-200); Estimated Glomerular Filt Rate 56 ml/min (>60); GFR (African American) 68 ML/MIN (>60); Globulin 2.8 g/dL (1.3-3.2); Glucose 111 mg/dl (74-100); Magnesium 1.5 mg/dl (1.6-2.3); Potassium 3.8 mmoL/L (3.5-5.1); Sodium 139 mmol/L (136-145); Total Protein,Serum 6.9 g/dl (6.3-8.2)
[2025-02-16 20:32] LABS: Adenovirus,PCR Not Detected (NotDetected); Bordetella Pertussis Not Detected (NotDetected); Chlamydophila Pneumoniae, PCR Not Detected (NotDetected); Coronavirus 19, PCR Not Detected (NotDetected); Coronavirus 229E Not Detected (NotDetected); Coronavirus NL63 Not Detected (NotDetected); Coronavirus OC43 Not Detected (NotDetected); Coronovirus HKU1,PCR Not Detected (NotDetected); Human Metapneumovirus Not Detected (NotDetected); Influenza A, PCR Not Detected (NotDetected); Influenza AH1, 2009 Not Detected (NotDetected); Influenza AH1, PCR Not Detected (NotDetected); Influenza AH3,PCR Not Detected (NotDetected); Influenza B, PCR Not Detected (NotDetected); Mycoplasma Pneumoniae, PCR Not Detected (NotDetected); Parainfluenza 1, PCR Not Detected (NotDetected); Parainfluenza 2, PCR Not Detected (NotDetected); Parainfluenza 3, PCR Not Detected (NotDetected); Parainfluenza 4, PCR Not Detected (NotDetected); Respiratory Syncytial Virus Not Detected (NotDetected); Rhinovirus/Enterovirus Not Detected (NotDetected)
[2025-02-16] MEDS: IPRATROPIUM/ALBUTEROL 3 ML NEB IH (20:32)
[2025-02-16 20:40] LABS: VBG Base Excess 0.9 mmol/L (-2.4-2.3); VBG HCO3 27.3 mmol/L (23-30); VBG Oxygen Saturation 66.3 % (50-70); VBG PO2 40.4 mmol/L (28-40)
[2025-02-16 20:43] LABS: NT Pro Brain Natriuretic Pep. 2880 pg/mL (0-125)
[2025-02-16 20:44] LABS: Lactate Venous 2.2 mmol/L (0.4-2.0); VBG PCO2 56.3 mmol/L (35-51)
[2025-02-16 20:48] LABS: Procalcitonin 0.042 ng/mL (0.0-2.0); Troponin I < 0.01 ng/ml (0.00-0.034)
[2025-02-16 20:51] LABS: Basophils % 0.3 % (0.1-2.0); Eosinophils # 0.3 K/mm3 (0.0-0.4); Eosinophils % 2.9 % (0.1-12.0); Hematocrit 34.8 % (37.0-47.0); Hemoglobin 10.5 g/dL (12.2-16.2); Lymphocytes # 2.5 K/mm3 (0.7-4.5); Lymphocytes % 28.2 % (10-50); Mean Corpuscular HGB Conc 30.2 g/dL (31.8-35.4); Mean Corpuscular Hemoglobin 27.7 pg (27.0-31.2); Mean Corpuscular Volume 91.8 fl (81-99); Mean Platelet Volume 10.7 fl (7.4-10.4); Monocytes # 0.5 K/mm3 (0.1-1.0); Monocytes % 5.6 % (1.7-9.3); Neutrophils # 5.6 K/mm3 (1.8-7.8); Neutrophils % 62.7 % (37.0-80.0); Platelet Count 323 K/mm3 (142-424); Red Blood Count 3.79 M/mm3 (4.20-5.40); Red Cell Distribution Width 20.1 % (11.5-17.5); White Blood Count 8.9 K/mm3 (4.8-10.8)
[2025-02-16] MEDS: 0.9 % SODIUM CHLORIDE 50 ML VIAL IV (20:56)
[2025-02-16] MEDS: IOPAMIDOL-370 (76%);100ML BOTTLE 70 ML IV (20:56)
[2025-02-16] MEDS: SODIUM CHLORIDE 0.9% 10ML SYR (RAD ONLY) 10 ML IV (20:56)
[2025-02-16] MEDS: FUROSEMIDE 40MG/4ML VIAL 80 MG IV (21:09)
[2025-02-16 21:15] VITALS: RESP 16; RESP 24; O2SAT 96
[2025-02-16] MEDS: dilTIAZem 25MG/5ML VIAL 20 MG IV (21:22)
[2025-02-16] MEDS: MAGNESIUM SULFATE IN WATER 2 GM/50 ML PIGGYBACK IV (21:22)
[2025-02-16] MEDS: HYDROMORPHONE 2MG/ML SYRINGE 0.5 MG IV (21:53)
--- NOTE | 2025-02-16 22:34 | PC.NURSE ---
report received from LAITH Reeves
[2025-02-16 22:35] VITALS: PULSE 97
[2025-02-16 22:44] VITALS: BP 132/80; PULSE 95; RESP 24; TEMP 36.8; O2SAT 95
[2025-02-16 23:00] VITALS: BMI 34.1
--- NOTE | 2025-02-16 23:12 | PC.NURSE ---
Patient arrived from ED to ICU unit via stretcher @22:57
[2025-02-16 23:15] VITALS: BP 105/70; PULSE 113; RESP 18; O2SAT 90
[2025-02-16 23:15] LABS: VBG Base Excess -4.3 mmol/L (-2.4-2.3); VBG HCO3 23.3 mmol/L (23-30); VBG Oxygen Saturation 25.2 % (50-70); VBG PH 7.23 mmol/L (7.31-7.41); VBG PO2 21.4 mmol/L (28-40)
[2025-02-16 23:16] LABS: Lactate Venous 3.6 mmol/L (0.4-2.0); VBG PCO2 57.1 mmol/L (35-51)
[2025-02-16 23:18] VITALS: PULSE 64; RESP 17; O2SAT 76
[2025-02-16 23:42] LABS: POC Glucose,Bedside 167 (70-110)
[2025-02-16 23:50] LABS: Troponin I < 0.01 ng/ml (0.00-0.034)
[2025-02-17] VITALS (41 sets, daily range): BP systolic 83–157; BP diastolic 40–137; PULSE 70–139; RESP 6–29; TEMP 36.6–37; O2SAT 81–100; BMI 34.1
[2025-02-17 00:42] LABS: Reflex Lactic Add Lactic Reflex
[2025-02-17 01:24] LABS: Microscopic, Urine URINE MICROSCOPIC (MICROSCOPIC)
--- NOTE | 2025-02-17 01:31 | P.HP_ITS ---
<Statement entered by Chandler Cody MD - 02/18/25 00:18> Rounded on patient after nurse practitioner. Personally examined and interviewed patient. Agree with exam findings and care plan as documented. Requiring ICU level care with BiPAP. Not responding initially, pulmonology consulted to assist with adjustments to pressure settings for improved ventilation given hypercarbia. Patient does complain of having had a bloody bowel movement. Holding blood thinners. Hemoglobin with mild anemia at 10. White cell count within normal range at 9. BNP elevated at 2800. Kidney function at baseline with creatinine 1.0. Aggressively diuresing. History of Present Illness *Admission Date: 02/16/25 *Reason for visit:: Hypoxia difficulty breathing rapid heart rate *History of present illness: This 64-year-old female has a very complicated medical history. Began to have more difficulty breathing and came to the ER for chest pain. Patient was found to be in atrial fibs with a rapid ventricular response. Cardizem was given and the rate did slow down.. Patient was also on BiPAP transition down to nasal cannula but noted decline in respiratory status per ABG and placed back on BiPAP in the unit.. Patient told nurse that she is post be on CPAP at home but does not wear. Per patient's last note in October was discharged with calcium channel clifton diltiazem. Patient had no memory of that and has not been taking any. Present respiratory difficulty not able to wean to nasal cannula must be related to pulmonary effusions bilateral. Plan to continue pulmonary toileting nebulizer treatments and keep on BiPAP as we need to review being able to wean if possible CT of chest done< No central or segmental pulmonary arterial embolism identified. 2. Bilateral pleural effusions with compressive subsegmental atelectasis. 3. Air trapping with underlying emphysematous changes. 4. Stable pulmonary nodules. Patient also noted for her atrial fibs not being on diltiazem. And no sign that she followed up with cardiology after being prescribed that medicine. Review of last cardiology note from August 2024 also gives a history of CVA. But in talking with the patient do not see any acute sign of stroke or deficit. [facility] Disclaimer: The information contained in this section may have been updated after the patient was seen, as this information can be updated by other users. Medical History Hypocalcemia Hypokalemia Acidosis, lactic GI bleed Noncompliance with medication regimen Tobacco dependence in remission Pancreas divisum of wainwright pancreas Encounter for pre-operative cardiovascular clearance Orthopnea CHF (congestive heart failure) Pancreatitis Nausea vomiting and diarrhea Exhausted vascular access Rib fractures Chronic hypoxemic respiratory failure Coronary artery disease COPD (chronic obstructive pulmonary disease) HLD (hyperlipidemia) Diabetes Anxiety and depression TIA (transient ischemic attack) History of stroke History of multiple cerebrovascular accidents (CVAs) History of class III angina pectoris Typical angina Dyspnea History of pancreatitis History of CVA (cerebrovascular accident) Surgical History History of biliary duct stent placement History of hysterectomy History of cholecystectomy History of coronary artery stent placement Family History Other Family history of cancer Family history of diabetes mellitus Social History Smoking Status: Former smoker tobacco type: cigarettes packs per day: 1 second hand exposure: No alcohol intake: never counseling provided: none substance use type: marijuana and crack/cocaine current occupational status: other Travel in the last 8 weeks: None household members: significant other housing: house marital status: single number of children: 2 current occupational exposures/hazards: No caffeine: Yes Have you lived/traveled outside [place] in past 30 days?: No Contact w/someone who lives/traveled outside US past 30 days?: No Exposure to someone with infectious disease in past 14 days?: No Do you have a fever (greater than 100.4 F or 38 C)?: No Have you tested positive for COVID-19: No Exposed to someone with COVID-19 in past 14 days?: No Do you have a sore throat?: No Do you have a cough?: No Do you have any weakness?: No Do you have any diarrhea?: No Are you experiencing any unusual bleeding?: No Do you have any muscle aches/pain?: No Do you have any abdominal pain?: No Are you experiencing loss of taste or smell?: No Other Medical History Have you received the Flu Vaccine for this season: Yes Have you received the Pneumonia Vaccine: Yes Review of Systems Review of Systems Review of systems:: pertinent systems reviewed and negative unless documented below Review of systems (narrative): Patient is morbidly obese and not in very good physical shape, has a right chest Port-A-Cath. Patient states this is for chronic pancreatitis but is used for other things Constitutional Constitutional: Reports as per HPI, Reports body ache(s), Reports fatigue, Reports frequent falls and Reports weakness Eyes Eyes: Reports as per HPI ENT Ears, Nose, Mouth, and Throat: Reports nasal congestion and Reports neck pain Comments: No acute signs of upper respiratory infection at this time *Cardiovascular Cardiovascular: Reports as per HPI, Reports dyspnea, Reports dyspnea on exertion and Reports irregular heart rhythm Comments: Patient is in atrial fibs on the monitor *Respiratory Respiratory: Reports dyspnea and Reports dyspnea on exertion *Gastrointestinal Gastrointestinal: Reports as per HPI Comments: Generalized obesity with left upper quadrant tenderness to palpation *Genitourinary Genitourinary: Reports as per HPI *Musculoskeletal Musculoskeletal: Reports abnormal gait, Reports arthralgias, Reports atrophy, Reports neck pain and Reports stiffness Integumentary/Breasts Skin/Breast: Reports as per HPI *Neurologic Neurologic: Reports abnormal gait, Reports frequent falls and Reports weakness Psychiatric Psychiatric: Reports as per HPI Comments: Patient is very pleasant giving a good history very cooperative Endocrine Endocrine: Reports fatigue Hematologic/Lymphatic Hematologic/Lymphatic: Reports as per HPI Allergic/Immunologic Allergic/Immunologic: Reports as per HPI Meds Home Medications and Allergies Home Medications ?Medication ?Instructions ?Recorded ?Confirmed ?Type omeprazole 40 mg capsule,delayed 40 mg PO DAILY 04/08/23 02/17/25 History release albuterol sulfate 90 mcg/actuation 2 inh inhalation Q4HP PRN 06/14/24 02/17/25 Rx aerosol inhaler Shortness Of Breath Or Wheezing #6.7 grams ticagrelor 90 mg tablet (Brilinta) 90 mg PO BID 08/22/24 02/17/25 History trazodone 100 mg tablet 100 mg PO HS 08/22/24 02/17/25 History diltiazem HCl 180 mg 180 mg PO DAILY #30 caps 08/23/24 12/16/24 Rx capsule,extended release 24 hr duloxetine 60 mg capsule,delayed 60 mg PO BID 90 days #180 caps 09/23/24 02/17/25 Rx release potassium chloride 10 mEq 10 meq PO DAILY #90 tabs 09/23/24 02/17/25 Rx tablet,extended release magnesium oxide 400 mg PO BID #180 tabs 10/15/24 02/17/25 Rx metformin 1,000 mg tablet 1,000 mg PO BIDWMEAL #60 tabs 11/10/24 02/17/25 Rx nitroglycerin 0.4 mg sublingual 0.4 mg sublingual Q5MINP PRN chest 11/19/24 02/17/25 Rx tablet pain #10 tabs ranolazine 500 mg tablet,extended 500 mg PO BID 30 days #60 tabs 11/19/24 02/17/25 Rx release,12 hr gabapentin 600 mg tablet 600 mg PO BID #60 tabs 12/16/24 02/17/25 Rx ropinirole 0.25 mg tablet 0.25 mg PO HS #30 tabs 12/16/24 02/17/25 Rx montelukast 10 mg tablet 10 mg PO HS #30 tabs 01/07/25 02/17/25 Rx ferrous sulfate 325 mg (65 mg 325 mg PO BID #60 tabs 01/20/25 02/17/25 Rx iron) tablet atorvastatin 40 mg tablet 40 mg PO HS #90 tabs 02/07/25 02/17/25 Rx metoprolol succinate 50 mg See Rx Instructions .Route 02/07/25 02/17/25 Rx tablet,extended release 24 hr .COMPLEX #90 tabs furosemide 20 mg tablet 20 mg PO DAILY #30 tabs 02/15/25 02/17/25 Rx levothyroxine 100 mcg tablet 100 mcg PO DAILYDM #90 tabs 02/15/25 02/17/25 Rx albuterol sulfate 2.5 mg/3 mL 2.5 mg (3 mL) inhalation Q6H #180 02/16/25 02/17/25 Rx (0.083 %) solution for nebulization mL alprazolam 1 mg tablet 1 mg PO TID PRN Anxiety 02/17/25 02/17/25 History polyethylene glycol 3350 17 17 g PO DAILY PRN Constipation 02/17/25 02/17/25 History gram/dose oral powder (Miralax) quetiapine 50 mg tablet 50 mg PO HS 02/17/25 02/17/25 History rivaroxaban 20 mg tablet (Xarelto) 20 mg PO DAILY 02/17/25 02/17/25 History New Prescriptions to Start Prescriptions: Allergies Allergy/AdvReac Type Severity Reaction Status Date / Time codeine (CODEINE) Allergy Intermediate N/V Verified 02/16/25 23:55 ketorolac (KETOROLAC) Allergy Intermediate Hives Verified 02/16/25 23:55 meperidine (MEPERIDINE) Allergy Intermediate Hives Verified 02/16/25 23:55 tramadol (TRAMADOL) Allergy Intermediate Hives Verified 02/16/25 23:55 verapamil Allergy Mild Unknown Verified 02/16/25 23:55 allergy reaction ciprofloxacin AdvReac Severe Interacts Verified 02/16/25 23:55 with cymbalta Exam Data for Last 24 hours Vital signs and Labs for Last 24 Hours: Temp Pulse Resp BP Pulse Ox O2 Del Method O2 Flow Rate 98.2 F 97 H 16 120/77 95 BiPAP 3 02/16/25 22:44 02/17/25 00:00 02/17/25 00:00 02/17/25 00:00 02/17/25 00:11 02/17/25 00:11 02/16/25 23:15 FiO2 50 02/17/25 00:11 Laboratory Results - last 24 hr 02/16/25 20:13: WBC 8.9, RBC 3.79 L, Hgb 10.5 L, Hct 34.8 L, MCV 91.8, MCH 27.7, MCHC 30.2 L, RDW 20.1 H, Plt Count 323, MPV 10.7 H, Neut % (Auto) 62.7, Lymph % (Auto) 28.2, Dewitt % (Auto) 5.6, Eos % (Auto) 2.9, Baso % (Auto) 0.3, Neut # (Auto) 5.6, Lymph # (Auto) 2.5, Dewitt # (Auto) 0.5, Eos # (Auto) 0.3, Baso # (Auto) 0.0, Sodium 139, Potassium 3.8, Chloride 103, Carbon Dioxide 29, Anion Gap 10.8, BUN 11, Creatinine 1.00, Estimated Creat Clear 77, Estimated GFR 56 L, Est GFR ( Amer) 68, Glucose 111 H, Calcium 9.0, Magnesium 1.5 L, Total Bilirubin 0.8, AST 26, ALT 25, Alkaline Phosphatase 102, Troponin I < 0.01, NT-Pro-B Natriuret Pep 2880 H, Total Protein 6.9, Albumin 4.1, Globulin 2.8, Albumin/Globulin Ratio 1.5, Procalcitonin 0.042 02/16/25 20:14: VBG pH 7.30 L, VBG pCO2 56.3 H, VBG pO2 40.4 H, VBG HCO3 27.3, VBG Total CO2 29.0 H, VBG O2 Saturation 66.3, VBG Base Excess 0.9, VBG Lactic Acid 2.2 H 02/16/25 20:26: Chlamy pneumoniae PCR Not detected, Adenovirus (PCR) Not detected, B. pertussis DNA (PCR) Not detected, Coronavirus OC43 (PCR) Not detected, Coronavirus HKU1 (PCR) Not detected, Coronavirus 229E (PCR) Not detected, SARS-CoV-2 (PCR) Not detected, Coronavirus NL63 (PCR) Not detected, Human Metapneumovir PCR Not detected, Influenza A (H1) PCR Not detected, Influ A (H1N1/09) PCR Not detected, Influenza A (H3) PCR Not detected, Influenza Type A (PCR) Not detected, Influenza Type B (PCR) Not detected, M. pneumoniae (PCR) Not detected, Parainfluenza 1 (PCR) Not detected, Parainfluenza 2 (PCR) Not detected, Parainfluenza 3 (PCR) Not detected, Parainfluenza 4 (PCR) Not detected, RSV (PCR) Not detected, Entero/Rhino (PCR) Not detected 02/16/25 23:00: VBG pH 7.23 L, VBG pCO2 57.1 H, VBG pO2 21.4 L, VBG HCO3 23.3, VBG Total CO2 25.0, VBG O2 Saturation 25.2 L, VBG Base Excess -4.3 L, VBG Lactic Acid 3.6 H 02/16/25 23:12: Troponin I < 0.01 02/16/25 23:36: POC Glucose 167 H I & O for Last 24 hours: Intake & Output 02/14/25 02/15/25 02/16/25 02/17/25 05:59 05:59 05:59 05:59 Output Total 1300 / 1300 Balance -1300 / -1300 Weight 212 lb 6.4 oz Radiology Reports for the Last 24 Hours: CT scan showing bilateral pleural effusions right greater than left Constitutional Constitutional: mild distress, morbidly obese, chronically ill appearing and cooperative Comments: Requiring oxygen now requiring BiPAP to maintain proper pH *Routine HEENT Exam Head: Present normocephalic and atraumatic Eye: Present EOMI, PERRL and normal accommodation ENT: Present mucous membranes moist, oropharynx clear, nares patent and external ear normal Comments: No deficits for HEENT found no signs of sore throat. No discharge or postnasal drip inside of oral cavity tongue is kind of beefy red *Routine Neck Exam Neck: Present supple and full ROM Comments: Patient has generalized tenderness to her neck but is able to move it without really any decrease in range of motion Routine Chest/Breast/Axilla Exam Comments: No signs of any type of chest wall injury able to take a deep breath expanding both sides of the chest equally *Routine Respiratory Exam Respiratory: Present patient mechanically ventilated (Requiring BiPAP), rhonchi, wheezes, normal respiratory effort, able to speak in complete sentences and symmetric chest movement Comments: Patient is able to talk while wearing the BiPAP, wheezing rattling heard in posterior and lateral aspect of right lung *Routine Cardiovascular Exam Cardiovascular: Present Normal S1, tachycardia and irregular rhythm Comments: Patient's heart rate staying 100-1 20 still in A-fib *Routine Abdominal Exam Abdominal: Present soft, normoactive bowel sounds and obese Comments: Very large abdomen but no signs of any significant discomfort on palpation *Routine Rectal Exam Rectal:: deferred *Routine Genitalia Exam Genitalia:: deferred *Routine Extremities Exam Extremities: Present cyanosis, full ROM and normal capillary refill Comments: Did not find any signs of skin breakdown or ulcers Routine Back/Spine/Pelvis Exam Comments: Patient's back showed no significant injuries able to sit up and help me to move her she is able to twist and turn [id number] did not stand her during exam *Routine Skin Exam Skin: Present intact, dry and warm *Routine Neurological Exam Neurological: Present alert, oriented X3, CN II-XII intact, normal tone, vision grossly intact and hearing grossly intact Comments: Patient shows no significant neurological deficits during this exam Routine Psychiatric Exam Psychiatric: Present normal affect, normal thought process, cooperative, good insight and good judgment H&P: Result Impressions 1. Atrial fibs with rapid rate ventricular response with decrease in oxygenation requiring BiPAP 2. COPD with exacerbation 3. Anxiety depression 4. Type 2 diabetes 5. Hypothyroidism, chronic pancreatitis intermittent, and restless leg syndrome. 6. Long history of chronic pain used to have implanted pain pump Imaging and Cardiology CT scan - chest: Status: image reviewed by me Additional comments: Bilateral pleural effusions right greater than left Assessment and Plan *Assessment and plan (1) Atrial fibrillation with rapid ventricular response: Status: Acute Category: Medical Code(s): I48.91 - Unspecified atrial fibrillation (2) Acute exacerbation of CHF (congestive heart failure): Status: Acute Qualifiers: Heart failure type: unspecified Qualified Code(s): I50.9 - Heart failure, unspecified Category: Medical Code(s): I50.9 - Heart failure, unspecified (3) Acute on chronic respiratory failure with hypoxia and hypercapnia: Status: Acute Category: Medical Code(s): J96.21 - Acute and chronic respiratory failure with hypoxia; J96.22 - Acute and chronic respiratory failure with hypercapnia (4) Bilateral pleural effusion: Status: Acute Category: Medical Code(s): J90 - Pleural effusion, not elsewhere classified (5) Hypomagnesemia: Status: Acute Category: Medical Code(s): E83.42 - Hypomagnesemia (6) Hypothyroidism: Status: Acute Qualifiers: Hypothyroidism type: unspecified Qualified Code(s): E03.9 - Hypothyroidism, unspecified Category: Medical Code(s): E03.9 - Hypothyroidism, unspecified (7) Pulmonary nodules: Status: Acute Category: Medical Code(s): R91.8 - Other nonspecific abnormal finding of lung field (8) Chronic pancreatitis: Status: Acute Qualifiers: Pancreatitis type: unspecified pancreatitis type Qualified Code(s): K86.1 - Other chronic pancreatitis Category: Medical Code(s): K86.1 - Other chronic pancreatitis (9) Low back pain: Status: Acute Qualifiers: Back pain laterality: right Chronicity: chronic Sciatica laterality: sciatica of right side Sciatica presence: with sciatica Qualified Code(s): M54.41 - Lumbago with sciatica, right side; G89.29 - Other chronic pain Category: Medical Code(s): M54.50 - Low back pain, unspecified (10) Morbid obesity: Status: Chronic Category: Medical Code(s): E66.01 - Morbid (severe) obesity due to excess calories Plan 1. Will place patient in the unit since for using BiPAP and her respiratory status is still fragile.. The atrial fibs is now in rate controlled. Cardiology be consulted to look at her present medications see if this can still be maintained as outpatient. 2. 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 Patient stated that she has lost 60 pounds from her highest weight. Says that she has smoked for more than 40 years but stopped about 5 years ago. Will continue to use antibiotics. And pulmonary toileting to try to open up her lungs. See if we can wean her back to at least nasal cannula. And then work with her if she is going to be able to try to go home to being able to use her CPAP at night whether or not she needs home oxygen case management will be notified of these problems. 3. History has from old notes a history of CVA, can find no sign of that at the present time. Also history of chronic pancreatitis with a port that is been in place per the patient for about 5 years. Checking back through her labs only found levels into the 300s of lipase most of the time normal
[2025-02-17] MEDS: HYDROMORPHONE 2MG/ML SYRINGE 0.5 MG IV ×3 (01:37→20:21)
[2025-02-17 02:01] LABS: Appearance,Urine CLEAR (Clear); Bilirubin,Urine Negative (Negative); Blood, Urine Negative (Negative); Color,Urine YELLOW (Yellow); Glucose,Urine (UA) Negative (Negative); Ketones,Urine Negative (Negative); Leukocyte Esterase,Urine Negative (Negative); Nitrate,Urine Negative (Negative); PH,Urine 5.5 (5.0-8.5); Protein,Urine Negative (Negative); Specific Gravity, Urine 1.015 (1.005-1.030); Urobilinogen,Urine 0.2 EU/dl (0.2)
[2025-02-17] MEDS: IPRATROPIUM/ALBUTEROL 3 ML NEB IH ×4 (02:03→18:04)
[2025-02-17 02:16] LABS: Bacteria,Urine Trace /lpf; WBC,Urine Occasional #/hpf (0-3)
[2025-02-17] MEDS: TRAZODONE 50MG TABLET 100 MG PO ×2 (02:44→20:07)
[2025-02-17] MEDS: QUETIAPINE 25MG TABLET 50 MG PO (02:44)
[2025-02-17] MEDS: ROPINIROLE HCL 0.25 MG TABLET PO ×2 (03:02→20:09)
[2025-02-17 03:19] LABS: Reflex Lactic (2 hrs) Add Lactic Reflex
[2025-02-17 03:52] LABS: Basophils % 0.2 % (0.1-2.0); Eosinophils % 0.1 % (0.1-12.0); Hematocrit 34.6 % (37.0-47.0); Hemoglobin 10.6 g/dL (12.2-16.2); Lymphocytes # 0.8 K/mm3 (0.7-4.5); Lymphocytes % 8.9 % (10-50); Mean Corpuscular HGB Conc 30.6 g/dL (31.8-35.4); Mean Corpuscular Volume 91.5 fl (81-99); Mean Platelet Volume 10.7 fl (7.4-10.4); Monocytes # 0.1 K/mm3 (0.1-1.0); Monocytes % 0.7 % (1.7-9.3); Neutrophils # 8.2 K/mm3 (1.8-7.8); Neutrophils % 89.7 % (37.0-80.0); Platelet Count 328 K/mm3 (142-424); Red Blood Count 3.78 M/mm3 (4.20-5.40); Red Cell Distribution Width 19.9 % (11.5-17.5); White Blood Count 9.1 K/mm3 (4.8-10.8)
[2025-02-17 03:56] LABS: Albumin Level 4.4 g/dl (3.5-5.0); Chloride 94 mmol/L (98-107); Sodium 136 mmol/L (136-145)
[2025-02-17 03:57] LABS: Potassium 4.2 mmoL/L (3.5-5.1)
[2025-02-17 03:59] LABS: Alanine Aminotransferase 32 U/L (12-78); Albumin/Globulin Ratio 1.5 (1.1-1.8); Anion Gap 17.2 mEq/L (5-15); Aspartate Amino Transferase 27 U/L (14-36); Bilirubin,Total 0.6 mg/dl (0.2-1.3); Blood Urea Nitrogen 12 mg/dl (7-17); Carbon Dioxide 29 mmol/L (22.0-30.0); Cholesterol 134 mg/dl (140-200); Creatinine Clearance Estimated 86 mL/min (50-200); Estimated Glomerular Filt Rate 56 ml/min (>60); GFR (African American) 68 ML/MIN (>60); Globulin 2.9 g/dL (1.3-3.2); Total Protein,Serum 7.3 g/dl (6.3-8.2); Triglycerides 96 mg/dl (30-150); VLDL Cholesterol 19 mg/dL (0-40)
[2025-02-17 04:00] LABS: Alkaline Phosphatase 125 U/L (38-126); Calcium 8.4 mg/dl (8.4-10.2); Chol/HDL Ratio 1.9 (1-3.5); Glucose 186 mg/dl (74-100); HDL Cholesterol 70 mg/dl (40-60); Magnesium 1.7 mg/dl (1.6-2.3)
[2025-02-17 04:05] LABS: Lactic Acid Follow up (RFLX 2) 3.4 mmol/L (0.7-2.1)
[2025-02-17 04:10] LABS: Direct LDL Cholesterol 44.76 mg/dL (100-129)
[2025-02-17 04:19] LABS: Troponin I < 0.01 ng/ml (0.00-0.034)
--- NOTE | 2025-02-17 06:38 | ECG_ITS ---
APPROVED REPORT Exam: Resting ECG HR:87 bpm ECG Measurements Heart Rate 87 AXES QRSd 85 QRS 59 QT 392 T 66 QTc 436 Conclusion ATRIAL FLUTTER/TACHYCARDIA NONSPECIFIC ST & T-WAVE ABNORMALITY ABNORMAL RHYTHM ECG UNCONFIRMED REPORT Electronically signed by : Oskar Eugene MD 02/18/2025 08:51:34
[2025-02-17 06:40] LABS: VBG Base Excess 4.6 mmol/L (-2.4-2.3); VBG HCO3 31.2 mmol/L (23-30); VBG PH 7.29 mmol/L (7.31-7.41); VBG PO2 27.2 mmol/L (28-40); VBG Total CO2 33.2 mmol/L (23-27)
[2025-02-17 06:45] LABS: Lactate Venous 3.1 mmol/L (0.4-2.0); VBG PCO2 66.4 mmol/L (35-51)
--- NOTE | 2025-02-17 06:53 | PC.NURSE ---
Increased Bipap settings to 18/8, 22,80%. Will follow up with VBG in 1hr.
[2025-02-17 06:56] LABS: POC Glucose,Bedside 150 (70-110)
[2025-02-17] MEDS: LEVOTHYROXINE 100MCG (0.1MG) TAB 100 MCG PO (06:59)
--- NOTE | 2025-02-17 07:44 | CA_ITS ---
APPROVED REPORT EXAM: Comprehensive 2D, Doppler, and color-flow Echocardiogram Club Manager: Carlita Cannon CRT Ht: 5 ft 5 in Wt: 212lbs BSA: 2.03 BP: 120/77 mmHg Indications: Congestive Heart Failure, Atrial Fibrillation, Diabetes, CAD, Hyperlipidemia, Pleural Effusion, stents, ex smoker 2D Dimensions Left Atrium 5.50 cm LVEF (Carter's) 69.60 % RVID Base (AP4) 2.27 cm (M/F) 2.5-4.1 LV Volume 73.60 mL LVOT 1.97 cm (M/F) 1.5-2.5 LA Volume 87.30 mL LA Volume Index 43.00 mL/m2 (M/F) 16-34 EF AP4 61.30 % EF AP2 69.4 % EF BP 69.6 % GL Strain -11.5 % M-Mode Dimensions RVDd 3.13 cm (0.9-2.6) LVDd 4.58 cm (3.5-5.7) Ao Diam 3.81 cm (2.0-3.7) LVDs 2.49 cm (3.5-5.7) IVSd 1.57 cm (0.6-1.1) PWd 1.04 cm (0.6-1.1) EF (Teich) 77.10% FS 45.60% EDV (Teich) 96.30 mL TAPSE 1.92 (<1.7) ESV (Teich) 22.10 mL LV Diastology E Decel Time 167 (160-240 msec) E/A Ratio 5.05 MED E' 5.9 (>= 7 cm/sec) MED A' 2.50 cm/s E'/MED E' Ratio 21.07 (<= 14) LAT E' 9.2 (>= 10 cm/sec) LAT A' 4.70 cm/s E/LAT E' Ratio 13.51 (<= 14) Aortic Valve AoV Peak Saad. 158.0 (50-130 cm/s) AO Peak GR. 10.10 mmHg Mitral Valve MV E Max Saad. 124.0 (40-130 cm/s) MV A Velocity 25.0 (40-130 cm/s) E/A Ratio 5.05 MV Decel. Time 167 (160-240 ms) Tricuspid Valve TR P. Velocity 363.00 cm/s RAP Estimate 10.00 mmHg RVSP 62.70 mmHg Left Ventricle The left ventricle is normal size. The left ventricular systolic function is normal. The left ventricular ejection fraction is within the normal range. There is increased LV wall thickness. Diastolic function is indeterminate. There is normal LV segmental wall motion. LVEF is 60%. Right Ventricle Right ventricle is mildly dilated. Right ventricle is mildly hypokinetic. Atria The left atrium is moderately dilated. Right atrium is moderately dilated. There is no Doppler evidence of interatrial shunt. Aortic Valve The aortic valve is mildly thickened. There is no aortic valvular stenosis. Trace aortic regurgitation. Mitral Valve The mitral valve is normal in structure. No evidence of mitral valve stenosis. Mild mitral regurgitation. Tricuspid Valve Tricuspid valve is grossly normal in structure and function. Mild tricuspid regurgitation. RVSP is 30-35 mmHg. Pulmonic Valve The pulmonary valve is normal in structure. Trace pulmonic regurgitation. Great Vessels The aortic root is normal in size. The ascending aorta is normal in size. IVC is normal in size and collapses >50% with inspiration. Pericardium There is no pericardial effusion. Other Information Study Quality: Fair Conclusion Normal LV systolic function. Mild RV dilation with mild reduction in RV function. Biatrial dilation. Mild MR, mild TR. RVSP 30-35 mmHg. Electronically signed by : Porsha Torres MD 02/17/2025 12:16:05
[2025-02-17] MEDS: METOPROLOL TARTRATE 25MG TABLET 25 MG PO (08:05)
--- NOTE | 2025-02-17 10:01 | P.CONS_ITS ---
History of Present Illness History of present illness: Ms. Arteaga is a 64-year-old female presented to the ER with worsening respiratory distress also found to be in A-fib RVR received Cardizem and heart rate pulmonary was called for further evaluation and management. Patient admits around [id number] smoking history last moved around 1999. Admits prior history of COPD. Admits using ambulation therapies 4 times a day on a scheduled basis. Patient also admits history of chronic hypoxic respiratory failure using oxygen supplementation to 2.5 L continuously. She also admits history of sleep apnea however has not been compliant with her CPAP therapy for the last 2 years. [facility] Disclaimer: The information contained in this section may have been updated after the patient was seen, as this information can be updated by other users. Medical History (Updated 02/17/25 @ 11:26 by Charlotte Aleman MD) Multiple lung nodules on CT Pulmonary emphysema Hypocalcemia Hypokalemia Acidosis, lactic GI bleed Noncompliance with medication regimen Tobacco dependence in remission Pancreas divisum of [place] pancreas Encounter for pre-operative cardiovascular clearance Orthopnea CHF (congestive heart failure) Pancreatitis Nausea vomiting and diarrhea Exhausted vascular access Rib fractures Chronic hypoxemic respiratory failure Coronary artery disease COPD (chronic obstructive pulmonary disease) HLD (hyperlipidemia) Diabetes Anxiety and depression TIA (transient ischemic attack) History of stroke History of multiple cerebrovascular accidents (CVAs) History of class III angina pectoris Typical angina Dyspnea History of pancreatitis History of CVA (cerebrovascular accident) Surgical History History of biliary duct stent placement History of hysterectomy History of cholecystectomy History of coronary artery stent placement Family History Other Family history of cancer Family history of diabetes mellitus Social History Smoking Status: Former smoker tobacco type: cigarettes packs per day: 1 second hand exposure: No alcohol intake: never counseling provided: none substance use type: marijuana and crack/cocaine current occupational status: other Travel in the last 8 weeks: None household members: significant other housing: house marital status: single number of children: 2 current occupational exposures/hazards: No caffeine: Yes Have you lived/traveled outside [place] in past 30 days?: No Contact w/someone who lives/traveled outside US past 30 days?: No Exposure to someone with infectious disease in past 14 days?: No Do you have a fever (greater than 100.4 F or 38 C)?: No Have you tested positive for COVID-19: No Exposed to someone with COVID-19 in past 14 days?: No Do you have a sore throat?: No Do you have a cough?: No Do you have any weakness?: No Do you have any diarrhea?: No Are you experiencing any unusual bleeding?: No Do you have any muscle aches/pain?: No Do you have any abdominal pain?: No Are you experiencing loss of taste or smell?: No Review of Systems Constitutional Constitutional: Reports fatigue and Reports weakness Eyes Eyes: Denies eye discharge, Denies dry eyes, Denies irritation and Denies itchy eyes ENT Ears, Nose, Mouth, and Throat: Denies epistaxis, Denies facial pain, Denies lip swelling and Denies throat swelling *Cardiovascular Cardiovascular: Reports dyspnea, Reports dyspnea on exertion and Reports orthopnea *Respiratory Respiratory: Denies change in phlegm color, Reports chest congestion, Reports cough, Reports dyspnea, Reports dyspnea on exertion, Denies excessive phlegm production, Denies hemoptysis, Denies pain on inspiration, Denies pain with cough and Denies wheezing *Gastrointestinal Gastrointestinal: Reports abdominal pain, Denies belching and Denies cramping *Musculoskeletal Musculoskeletal: Reports abnormal gait *Neurologic Neurologic: Reports abnormal gait and Reports weakness Psychiatric Psychiatric: Denies homicidal ideation and Denies suicidal ideation Endocrine Endocrine: Reports fatigue and Denies heat intolerance Hematologic/Lymphatic Hematologic/Lymphatic: Denies easy bleeding and Denies lymphadenopathy Allergic/Immunologic Allergic/Immunologic: Denies itchy eyes, Denies lip swelling, Denies throat swelling and Denies wheezing Pulmonology Exam Inpatient Vital signs and Labs for Last 24 Hours: Temp Pulse Resp BP Pulse Ox O2 Del Method O2 Flow Rate 97.9 F 128 H 20 94/63 L 94 L Nasal Cannula 4 02/17/25 08:01 02/17/25 08:01 02/17/25 08:01 02/17/25 08:01 02/17/25 08:01 02/17/25 08:01 02/17/25 08:01 FiO2 25 02/17/25 08:40 Laboratory Results - last 24 hr 02/16/25 00:44: Urine Color Yellow, Urine Appearance Clear, Urine pH 5.5, Ur Specific [place] 1.015, Urine Protein Negative, Urine Glucose (UA) Negative, Urine Ketones Negative, Urine Blood Negative, Urine Nitrate Negative, Urine Bilirubin Negative, Urine Urobilinogen 0.2, Ur Leukocyte Esterase Negative, Urine WBC Occasional, Ur Squamous Epith Cells 3-5, Urine Bacteria Trace 02/16/25 20:13: WBC 8.9, RBC 3.79 L, Hgb 10.5 L, Hct 34.8 L, MCV 91.8, MCH 27.7, MCHC 30.2 L, RDW 20.1 H, Plt Count 323, MPV 10.7 H, Neut % (Auto) 62.7, Lymph % (Auto) 28.2, [place] % (Auto) 5.6, Eos % (Auto) 2.9, Baso % (Auto) 0.3, Neut # (Auto) 5.6, Lymph # (Auto) 2.5, [place] # (Auto) 0.5, Eos # (Auto) 0.3, Baso # (Auto) 0.0, Sodium 139, Potassium 3.8, Chloride 103, Carbon Dioxide 29, Anion Gap 10.8, BUN 11, Creatinine 1.00, Estimated Creat Clear 77, Estimated GFR 56 L, Est GFR ( Amer) 68, Glucose 111 H, Calcium 9.0, Magnesium 1.5 L, Total Bilirubin 0.8, AST 26, ALT 25, Alkaline Phosphatase 102, Troponin I < 0.01, N T-Pro-B Natriuret Pep 2880 H, Total Protein 6.9, Albumin 4.1, Globulin 2.8, Albumin/Globulin Ratio 1.5, Procalcitonin 0.042 02/16/25 20:14: VBG pH 7.30 L, VBG pCO2 56.3 H, VBG pO2 40.4 H, VBG HCO3 27.3, V BG Total CO2 29.0 H, VBG O2 Saturation 66.3, VBG Base Excess 0.9, VBG Lactic Acid 2.2 H 02/16/25 20:26: Chlamy pneumoniae PCR Not detected, Adenovirus (PCR) Not detected, B. pertussis DNA (PCR) Not detected, Coronavirus OC43 (PCR) Not detected, Coronavirus HKU1 (PCR) Not detected, Coronavirus 229E (PCR) Not detected, SARS-CoV-2 (PCR) Not detected, Coronavirus NL63 (PCR) Not detected, Human Metapneumovir PCR Not detected, Influenza A (H1) PCR Not detected, Influ A (H1N1/09) PCR Not detected, Influenza A (H3) PCR Not detected, Influenza Type A (PCR) Not detected, Influenza Type B (PCR) Not detected, M. pneumoniae (PCR) Not detected, Parainfluenza 1 (PCR) Not detected, Parainfluenza 2 (PCR) Not detected, Parainfluenza 3 (PCR) Not detected, Parainfluenza 4 (PCR) Not detected, RSV (PCR) Not detected, Entero/Rhino (PCR) Not detected 02/16/25 23:00: VBG pH 7.23 L, VBG pCO2 57.1 H, VBG pO2 21.4 L, VBG HCO3 23.3, VBG Total CO2 25.0, VBG O2 Saturation 25.2 L, VBG Base Excess -4.3 L, VBG Lactic Acid 3.6 H 02/16/25 23:12: Troponin I < 0.01 02/16/25 23:36: POC Glucose 167 H 02/17/25 01:08: Lactate 3.0 H 02/17/25 03:36: WBC 9.1, RBC 3.78 L, Hgb 10.6 L, Hct 34.6 L, MCV 91.5, MCH 28.0, MCHC 30.6 L, RDW 19.9 H, Plt Count 328, MPV 10.7 H, Neut % (Auto) 89.7 H, Lymph % (Auto) 8.9 L, [place] % (Auto) 0.7 L, Eos % (Auto) 0.1, Baso % (Auto) 0.2, Neut # (Auto) 8.2 H, Lymph # (Auto) 0.8, [place] # (Auto) 0.1, Eos # (Auto) 0.0, Baso # (Auto) 0.0, Sodium 136, Potassium 4.2, Chloride 94 L, Carbon Dioxide 29, Anion Gap 17.2 H, BUN 12, Creatinine 1.00, Estimated Creat Clear 86, Estimated GFR 56 L, Est GFR ( Amer) 68, Glucose 186 H D, Lactate 3.4 H, Calcium 8.4, M agnesium 1.7 D, Total Bilirubin 0.6, AST 27, ALT 32 D, Alkaline Phosphatase 125, Troponin I < 0.01, Total Protein 7.3, Albumin 4.4, Globulin 2.9, Albumin/Globulin Ratio 1.5, Triglycerides 96, Cholesterol 134 L, LDL Cholesterol Direct 44.76 L, VLDL Cholesterol 19, HDL Cholesterol 70 H, Cholesterol/HDL Ratio 1.9 02/17/25 06:00: VBG pH 7.29 L, VBG pCO2 66.4 H, VBG pO2 27.2 L, VBG HCO3 31.2 H, VBG Total CO2 33.2 H, VBG O2 Saturation 39.0 L, VBG Base Excess 4.6 H, VBG Lactic Acid 3.1 H 02/17/25 06:48: POC Glucose 150 H I & O for Labs for Last 24 Hours: Intake & Output 02/14/25 02/15/25 02/16/25 02/17/25 23:59 23:59 23:59 23:59 Intake Total 240 / 240 Output Total 600 / 600 1600 / 1600 Balance -600 / -600 -1360 / -1360 Weight 212 lb 6.4 oz 212 lb 6.399 oz Constitutional: Present moderate distress Head: Present normocephalic and atraumatic ENT: Present normal exam, normal oropharynx and mucous membranes moist Neck: Present normal inspection and full ROM Respiratory: Present prolonged expiratory phase, normal respiratory effort and able to speak in complete sentences; Absent respiratory distress, wheezes or crackles Cardiac: Present S1/S2, Tachycardia and radial pulses present GI: Present soft and distention; Absent tenderness or guarding Rectal (female): Present deferred (female): Present deferred Skin: Present intact; Absent cyanosis or jaundice Neuro: Present alert, awake and oriented x 3 Extremities: Present normal inspection; Absent clubbing or cyanosis Psychiatric: Present normal affect and cooperative Meds Home Medications and Allergies Home Medications ?Medication ?Instructions ?Recorded ?Confirmed ?Type omeprazole 40 mg capsule,delayed 40 mg PO DAILY 04/08/23 02/17/25 History release ticagrelor 90 mg tablet (Brilinta) 90 mg PO BID 08/22/24 02/17/25 History trazodone 100 mg tablet 100 mg PO HS 08/22/24 02/17/25 History duloxetine 60 mg capsule,delayed 60 mg PO BID 90 days #180 caps 09/23/24 02/17/25 Rx release potassium chloride 10 mEq 10 meq PO DAILY #90 tabs 09/23/24 02/17/25 Rx tablet,extended release magnesium oxide 400 mg PO BID #180 tabs 10/15/24 02/17/25 Rx metformin 1,000 mg tablet 1,000 mg PO BIDWMEAL #60 tabs 11/10/24 02/17/25 Rx nitroglycerin 0.4 mg sublingual 0.4 mg sublingual Q5MINP PRN chest 11/19/24 02/17/25 Rx tablet pain #10 tabs ranolazine 500 mg tablet,extended 500 mg PO BID 30 days #60 tabs 11/19/24 02/17/25 Rx release,12 hr gabapentin 600 mg tablet 600 mg PO BID #60 tabs 12/16/24 02/17/25 Rx ropinirole 0.25 mg tablet 0.25 mg PO HS #30 tabs 12/16/24 02/17/25 Rx montelukast 10 mg tablet 10 mg PO HS #30 tabs 01/07/25 02/17/25 Rx ferrous sulfate 325 mg (65 mg 325 mg PO BID #60 tabs 01/20/25 02/17/25 Rx iron) tablet atorvastatin 40 mg tablet 40 mg PO HS #90 tabs 02/07/25 02/17/25 Rx furosemide 20 mg tablet 20 mg PO DAILY #30 tabs 02/15/25 02/17/25 Rx levothyroxine 100 mcg tablet 100 mcg PO DAILYDM #90 tabs 02/15/25 02/17/25 Rx albuterol sulfate 2.5 mg/3 mL 2.5 mg (3 mL) inhalation Q6H #180 02/16/25 02/17/25 Rx (0.083 %) solution for nebulization mL alprazolam 1 mg tablet 1 mg PO TIDP PRN Anxiety 02/17/25 02/17/25 History metoprolol succinate 50 mg 50 mg PO DAILY 02/17/25 02/17/25 History tablet,extended release 24 hr polyethylene glycol 3350 17 17 g PO DAILY PRN Constipation 02/17/25 02/17/25 History gram/dose oral powder (Miralax) quetiapine 50 mg tablet 50 mg PO HS 02/17/25 02/17/25 History rivaroxaban 20 mg tablet (Xarelto) 20 mg PO QPMWITHMEAL 02/17/25 02/17/25 History New Prescriptions to Start Prescriptions: Allergies Allergy/AdvReac Type Severity Reaction Status Date / Time codeine (CODEINE) Allergy Intermediate N/V Verified 02/16/25 23:55 ketorolac (KETOROLAC) Allergy Intermediate Hives Verified 02/16/25 23:55 meperidine (MEPERIDINE) Allergy Intermediate Hives Verified 02/16/25 23:55 tramadol (TRAMADOL) Allergy Intermediate Hives Verified 02/16/25 23:55 verapamil Allergy Mild Unknown Verified 02/16/25 23:55 allergy reaction ciprofloxacin AdvReac Severe Interacts Verified 02/16/25 23:55 with cymbalta Results Laboratory Findings 02/17/25 03:36 02/17/25 03:36 Abnormal lab findings: Abnormal Labs 02/16/25 02/16/25 02/16/25 20:13 20:14 23:00 RBC 3.79 L Hgb 10.5 L Hct 34.8 L MCHC 30.2 L RDW 20.1 H MPV 10.7 H Neut % (Auto) Lymph % (Auto) [place] % (Auto) Neut # (Auto) VBG pH 7.30 L 7.23 L VBG pCO2 56.3 H 57.1 H VBG pO2 40.4 H 21.4 L VBG HCO3 VBG Total CO2 29.0 H VBG O2 Saturation 25.2 L VBG Base Excess -4.3 L VBG Lactic Acid 2.2 H 3.6 H Chloride Anion Gap Estimated GFR 56 L Glucose 111 H POC Glucose Lactate Magnesium 1.5 L NT-Pro-B Natriuret Pep 2880 H Cholesterol LDL Cholesterol Direct HDL Cholesterol 02/16/25 02/17/25 02/17/25 23:36 01:08 03:36 RBC 3.78 L Hgb 10.6 L Hct 34.6 L MCHC 30.6 L RDW 19.9 H MPV 10.7 H Neut % (Auto) 89.7 H Lymph % (Auto) 8.9 L [place] % (Auto) 0.7 L Neut # (Auto) 8.2 H VBG pH VBG pCO2 VBG pO2 VBG HCO3 VBG Total CO2 VBG O2 Saturation VBG Base Excess VBG Lactic Acid Chloride 94 L Anion Gap 17.2 H Estimated GFR 56 L Glucose 186 H D POC Glucose 167 H Lactate 3.0 H 3.4 H Magnesium NT-Pro-B Natriuret Pep Cholesterol 134 L LDL Cholesterol Direct 44.76 L HDL Cholesterol 70 H 02/17/25 02/17/25 06:00 06:48 RBC Hgb Hct MCHC RDW MPV Neut % (Auto) Lymph % (Auto) [place] % (Auto) Neut # (Auto) VBG pH 7.29 L VBG pCO2 66.4 H VBG pO2 27.2 L VBG HCO3 31.2 H VBG Total CO2 33.2 H VBG O2 Saturation 39.0 L VBG Base Excess 4.6 H VBG Lactic Acid 3.1 H Chloride Anion Gap Estimated GFR Glucose POC Glucose 150 H Lactate Magnesium NT-Pro-B Natriuret Pep Cholesterol LDL Cholesterol Direct HDL Cholesterol Assessment and Plan *Assessment and plan (1) Acute on chronic respiratory failure with hypoxia and hypercapnia: Status: Acute Category: Medical Code(s): J96.21 - Acute and chronic respiratory failure with hypoxia; J96.22 - Acute and chronic respiratory failure with hypercapnia (2) Bilateral pleural effusion: Status: Acute Category: Medical Code(s): J90 - Pleural effusion, not elsewhere classified (3) Pulmonary emphysema: Status: Acute Category: Medical Code(s): J43.9 - Emphysema, unspecified (4) Multiple lung nodules on CT: Status: Acute Category: Medical Code(s): R91.8 - Other nonspecific abnormal finding of lung field Plan Ms. Arteaga is a 64-year-old female presented to the ER with worsening respiratory distress also found to be in A-fib RVR received [facility] pulmonary was called for further evaluation and management. Patient admits around [id number] smoking history last smoked around 2019. Admits prior history of COPD. Admits using ambulation therapies 4 times a day on a scheduled basis. Patient also admits history of chronic hypoxic respiratory failure using oxygen supplementation to 2.5 L continuously. She also admits history of sleep apnea however has not been compliant with her CPAP therapy for the last 2 years. CTA upon admission significant emphysematous changes, bilateral groundglass opacities and bilateral pleural effusions mild to moderate on the right side and mild on the left side. No pulmonary embolism noted. Patient also noted to have 1 cm right major intrafissural nodule and 0.6 cm right middle lobe nodule. Complains of respiratory viral PCR panel negative. No evidence of leukocytosis. Afebrile. Blood gas upon admission mild hypercarbic respiratory failure venous blood gas 7.30 with a pCO2 56.3. Blood gas from this morning 7.40 with a pCO2 41.4. Elevated lactate. Currently receiving nebulization therapies and diuretics. Patient also complains history of chronic pancreatitis abdominal pain and requesting pain medications Plan: Wean BiPAP to nasal cannula to maintain O2 saturation of 90% and above. Currently on 1 L nasal cannula. Follow-up with VBG in 4 hours. No need for noninvasive ventilator therapy tonight. DuoNebs every 6 hours on a scheduled basis No need for antibiotics or steroids at this point of time # For the noted intrafissural and pulmonary lung nodules that have been stable for the last 6 months since August 2024 will follow with a 9-month CT scan to be scheduled for October 2025, will schedule that as an outpatient basis
--- NOTE | 2025-02-17 10:05 | PC.NURSE ---
RESP CARE NOTE: Pt oxygen decreased to 1 lpm, per Dr Aleman bedside verbal order. SpO2 remains at 96%, we will continue to monitor and adjust oxygen to maintain SPO2 above 90%.
[2025-02-17 10:13] LABS: VBG Base Excess 0.2 mmol/L (-2.4-2.3); VBG Oxygen Saturation 93.2 % (50-70); VBG PCO2 41.4 mmol/L (35-51); VBG PO2 69.7 mmol/L (28-40); VBG Total CO2 26.3 mmol/L (23-27)
[2025-02-17 10:18] LABS: Lactate Venous 3.7 mmol/L (0.4-2.0)
--- NOTE | 2025-02-17 10:24 | HMH.PHAINT1 ---
Pharmacy Intervention Comments: HOME MEDICATION LIST VERIFIED USING LIST FROM OUTAPTIENT PHARMACY, PRIMARY OFFICE AND PT INTERVIEW
[2025-02-17] MEDS: FAMOTIDINE 20MG/2ML VIAL 20 MG IV ×2 (10:25→20:08)
[2025-02-17] MEDS: SODIUM CHLORIDE 0.9% 10ML VIAL 8 ML IV (10:25)
[2025-02-17] MEDS: DULOXETINE 30MG CAPSULE.DR 60 MG PO ×2 (10:26→20:07)
[2025-02-17] MEDS: GABAPENTIN 600MG TABLET 600 MG PO ×2 (10:26→20:07)
[2025-02-17] MEDS: OXYCODONE 5MG W/APAP 325MG TABLET 1 EACH PO ×3 (10:26→22:22)
[2025-02-17] MEDS: RANOLAZINE 500MG ER TABLET 500 MG PO ×2 (10:26→18:55)
[2025-02-17 12:03] LABS: POC Glucose,Bedside 176 (70-110)
[2025-02-17] MEDS: ALPRAZolam 0.5MG TABLET 1 MG PO ×2 (12:23→22:22)
[2025-02-17] MEDS: METOPROLOL SUCCINATE XL 50MG TABLET 50 MG PO ×2 (12:24→14:19)
--- NOTE | 2025-02-17 13:03 | EXP.CARD.CON ---
History of Present Illness History of Present Illness Consult date: 02/17/25 Requesting physician: Chandler Cody Consult reason: atrial fibrillation Chief complaint: abdominal pain, BRBPR, weakness, SOA History of present illness: 64-year-old white female established patient of our office who has not been to see us in over 1 year currently admitted to the emergency room for CHF exacerbation and acute rectal bleeding. We are consulted given her cardiac history. She does have a history of CAD status post stenting greater than 1 year ago, chronic rate controlled A-fib, COPD on 2.5 L O2 at home, pancreatic divisum with frequent pancreatic issues and chronic pain, history of GI bleeding status post hemorrhoidal banding approximately 1 month ago. Patient presented to the emergency room with initial complaint of abdominal pain and bloody stools. ER workup revealed she was SOA, had lactic acid 4.6, hemoglobin 10.6, creatinine 1.0, troponin normal x 2, proBNP 2880, CT chest was negative for PE but positive for small to moderate size bilateral pleural effusions. She required Bipap use and was given 80 mg of Lasix in the ER and diuresed 2.2 L. She was admitted overnight for further workup and management. This morning last set of vitals are BP 80 over 70s, heart rate 104, O2 is 91% on 4 L but she is also requiring use of BiPAP at times. Her last echo in October showed normal BiV function with LVH 1.[address] abdomen here shows possible bleeding in the sigmoid colon and possible low-grade ileus or enteritis. Patient complains of left upper quadrant abdominal pain near splenic flexure. Home medicine list indicates she is on Xarelto 20 and Brilinta 90 mg twice daily. [facility] Disclaimer: The information contained in this section may have been updated after the patient was seen, as this information can be updated by other users. Medical History Multiple lung nodules on CT Pulmonary emphysema Hypocalcemia Hypokalemia Acidosis, lactic GI bleed Noncompliance with medication regimen Tobacco dependence in remission Pancreas divisum of [place] pancreas Encounter for pre-operative cardiovascular clearance Orthopnea CHF (congestive heart failure) Pancreatitis Nausea vomiting and diarrhea Exhausted vascular access Rib fractures Chronic hypoxemic respiratory failure Coronary artery disease COPD (chronic obstructive pulmonary disease) HLD (hyperlipidemia) Diabetes Anxiety and depression TIA (transient ischemic attack) History of stroke History of multiple cerebrovascular accidents (CVAs) History of class III angina pectoris Typical angina Dyspnea History of pancreatitis History of CVA (cerebrovascular accident) Surgical History History of biliary duct stent placement History of hysterectomy History of cholecystectomy History of coronary artery stent placement Family History Other Family history of cancer Family history of diabetes mellitus Social History Smoking Status: Former smoker tobacco type: cigarettes packs per day: 1 second hand exposure: No alcohol intake: never counseling provided: none substance use type: marijuana and crack/cocaine current occupational status: other Travel in the last 8 weeks: None household members: significant other housing: house marital status: single number of children: 2 current occupational exposures/hazards: No caffeine: Yes Have you lived/traveled outside [place] in past 30 days?: No Contact w/someone who lives/traveled outside US past 30 days?: No Exposure to someone with infectious disease in past 14 days?: No Do you have a fever (greater than 100.4 F or 38 C)?: No Have you tested positive for COVID-19: No Exposed to someone with COVID-19 in past 14 days?: No Do you have a sore throat?: No Do you have a cough?: No Do you have any weakness?: No Do you have any diarrhea?: No Are you experiencing any unusual bleeding?: No Do you have any muscle aches/pain?: No Do you have any abdominal pain?: No Are you experiencing loss of taste or smell?: No Review of Systems Constitutional Constitutional: Reports frequent falls and Reports weakness Eyes Eyes: Denies loss of vision ENT Ears, Nose, Mouth, and Throat: Denies hearing loss *Cardiovascular Cardiovascular: Denies chest pain and Reports dyspnea *Respiratory Respiratory: Denies cough and Reports dyspnea *Gastrointestinal Gastrointestinal: Reports abdominal pain, Reports change in stool character, Reports hematochezia, Denies nausea and Denies vomiting *Musculoskeletal Musculoskeletal: Reports abnormal gait Integumentary/Breasts Skin/Breast: Denies changing lesions *Neurologic Neurologic: Reports abnormal gait, Reports frequent falls, Denies loss of vision and Reports weakness Exam Data for Last 24 hours Vital signs and Labs for Last 24 Hours: Temp Pulse Resp BP Pulse Ox O2 Del Method O2 Flow Rate 98.6 F 98 H 21 133/69 90 L Nasal Cannula 2 02/17/25 12:00 02/17/25 12:00 02/17/25 12:00 02/17/25 12:00 02/17/25 12:00 02/17/25 12:00 02/17/25 12:00 FiO2 25 02/17/25 08:40 Laboratory Results - last 24 hr 02/16/25 00:44: Urine Color Yellow, Urine Appearance Clear, Urine pH 5.5, Ur Specific [place] 1.015, Urine Protein Negative, Urine Glucose (UA) Negative, Urine Ketones Negative, Urine Blood Negative, Urine Nitrate Negative, Urine Bilirubin Negative, Urine Urobilinogen 0.2, Ur Leukocyte Esterase Negative, Urine WBC Occasional, Ur Squamous Epith Cells 3-5, Urine Bacteria Trace 02/16/25 20:13: WBC 8.9, RBC 3.79 L, Hgb 10.5 L, Hct 34.8 L, MCV 91.8, MCH 27.7, MCHC 30.2 L, RDW 20.1 H, Plt Count 323, MPV 10.7 H, Neut % (Auto) 62.7, Lymph % (Auto) 28.2, [place] % (Auto) 5.6, Eos % (Auto) 2.9, Baso % (Auto) 0.3, Neut # (Auto) 5.6, Lymph # (Auto) 2.5, [place] # (Auto) 0.5, Eos # (Auto) 0.3, Baso # (Auto) 0.0, Sodium 139, Potassium 3.8, Chloride 103, Carbon Dioxide 29, Anion Gap 10.8, BUN 11, Creatinine 1.00, Estimated Creat Clear 77, Estimated GFR 56 L, Est GFR ( Amer) 68, Glucose 111 H, Calcium 9.0, Magnesium 1.5 L, Total Bilirubin 0.8, AST 26, ALT 25, Alkaline Phosphatase 102, Troponin I < 0.01, NT-Pro-B Natriuret Pep 2880 H, Total Protein 6.9, Albumin 4.1, Globulin 2.8, Albumin/Globulin Ratio 1.5, Procalcitonin 0.042 02/16/25 20:14: VBG pH 7.30 L, VBG pCO2 56.3 H, VBG pO2 40.4 H, VBG HCO3 27.3, VBG Total CO2 29.0 H, VBG O2 Saturation 66.3, VBG Base Excess 0.9, VBG Lactic Acid 2.2 H 02/16/25 20:26: Chlamy pneumoniae PCR Not detected, Adenovirus (PCR) Not detected, B. pertussis DNA (PCR) Not detected, Coronavirus OC43 (PCR) Not detected, Coronavirus HKU1 (PCR) Not detected, Coronavirus 229E (PCR) Not detected, SARS-CoV-2 (PCR) Not detected, Coronavirus NL63 (PCR) Not detected, Human Metapneumovir PCR Not detected, Influenza A (H1) PCR Not detected, Influ A (H1N1/09) PCR Not detected, Influenza A (H3) PCR Not detected, Influenza Type A (PCR) Not detected, Influenza Type B (PCR) Not detected, M. pneumoniae (PCR) Not detected, Parainfluenza 1 (PCR) Not detected, Parainfluenza 2 (PCR) Not detected, Parainfluenza 3 (PCR) Not detected, Parainfluenza 4 (PCR) Not detected, RSV (PCR) Not detected, Entero/Rhino (PCR) Not detected 02/16/25 23:00: VBG pH 7.23 L, VBG pCO2 57.1 H, VBG pO2 21.4 L, VBG HCO3 23.3, VBG Total CO2 25.0, VBG O2 Saturation 25.2 L, VBG Base Excess -4.3 L, VBG Lactic Acid 3.6 H 02/16/25 23:12: Troponin I < 0.01 02/16/25 23:36: POC Glucose 167 H 02/17/25 01:08: Lactate 3.0 H 02/17/25 03:36: WBC 9.1, RBC 3.78 L, Hgb 10.6 L, Hct 34.6 L, MCV 91.5, MCH 28.0, MCHC 30.6 L, RDW 19.9 H, Plt Count 328, MPV 10.7 H, Neut % (Auto) 89.7 H, Lymph % (Auto) 8.9 L, [place] % (Auto) 0.7 L, Eos % (Auto) 0.1, Baso % (Auto) 0.2, Neut # (Auto) 8.2 H, Lymph # (Auto) 0.8, [place] # (Auto) 0.1, Eos # (Auto) 0.0, Baso # (Auto) 0.0, Sodium 136, Potassium 4.2, Chloride 94 L, Carbon Dioxide 29, Anion Gap 17.2 H, BUN 12, Creatinine 1.00, Estimated Creat Clear 86, Estimated GFR 56 L, Est GFR ( Amer) 68, Glucose 186 H D, Lactate 3.4 H, Calcium 8.4, Magnesium 1.7 D, Total Bilirubin 0.6, AST 27, ALT 32 D, Alkaline Phosphatase 125, Troponin I < 0.01, Total Protein 7.3, Albumin 4.4, Globulin 2.9, Albumin/Globulin Ratio 1.5, Triglycerides 96, Cholesterol 134 L, LDL Cholesterol Direct 44.76 L, VLDL Cholesterol 19, HDL Cholesterol 70 H, Cholesterol/HDL Ratio 1.9 02/17/25 06:00: VBG pH 7.29 L, VBG pCO2 66.4 H, VBG pO2 27.2 L, VBG HCO3 31.2 H, VBG Total CO2 33.2 H, VBG O2 Saturation 39.0 L, VBG Base Excess 4.6 H, VBG Lactic Acid 3.1 H 02/17/25 06:48: POC Glucose 150 H 02/17/25 10:09: VBG pH 7.40, VBG pCO2 41.4, VBG pO2 69.7 H, VBG HCO3 25.0, VBG Total CO2 26.3, VBG O2 Saturation 93.2 H, VBG Base Excess 0.2, VBG Lactic Acid 3.7 H 02/17/25 11:55: POC Glucose 176 H I & O for Last 24 hours: Intake & Output 02/14/25 02/15/25 02/16/25 02/17/25 23:59 23:59 23:59 23:59 Intake Total 240 / 240 Output Total 600 / 600 1999 Balance -600 / -600 -1760 / -1760 Weight 212 lb 6.4 oz 212 lb 6.399 oz Constitutional Constitutional: no acute distress, obese and cooperative *Routine HEENT Exam Eye: Present PERRL *Routine Respiratory Exam Respiratory: Present CTA bilaterally; Absent accessory muscle use, wheezes or crackles *Routine Cardiovascular Exam Cardiovascular: Present RRR, Normal S1 and Normal S2; Absent murmur, gallop or rubs *Routine Abdominal Exam Abdominal: Present soft Comments: LUQ pain to palpation *Routine Extremities Exam Extremities: Present pulses intact; Absent cyanosis or edema *Routine Skin Exam Skin: Present intact; Absent erythema or wounds *Routine Neurological Exam Neurological: Present alert and oriented X3 Routine Psychiatric Exam Psychiatric: Present cooperative Meds Home Medications and Allergies Home Medications ?Medication ?Instructions ?Recorded ?Confirmed ?Type omeprazole 40 mg capsule,delayed 40 mg PO DAILY 04/08/23 02/17/25 History release ticagrelor 90 mg tablet (Brilinta) 90 mg PO BID 08/22/24 02/17/25 History trazodone 100 mg tablet 100 mg PO HS 08/22/24 02/17/25 History duloxetine 60 mg capsule,delayed 60 mg PO BID 90 days #180 caps 09/23/24 02/17/25 Rx release potassium chloride 10 mEq 10 meq PO DAILY #90 tabs 09/23/24 02/17/25 Rx tablet,extended release magnesium oxide 400 mg PO BID #180 tabs 10/15/24 02/17/25 Rx metformin 1,000 mg tablet 1,000 mg PO BIDWMEAL #60 tabs 11/10/24 02/17/25 Rx nitroglycerin 0.4 mg sublingual 0.4 mg sublingual Q5MINP PRN chest 11/19/24 02/17/25 Rx tablet pain #10 tabs ranolazine 500 mg tablet,extended 500 mg PO BID 30 days #60 tabs 11/19/24 02/17/25 Rx release,12 hr gabapentin 600 mg tablet 600 mg PO BID #60 tabs 12/16/24 02/17/25 Rx ropinirole 0.25 mg tablet 0.25 mg PO HS #30 tabs 12/16/24 02/17/25 Rx montelukast 10 mg tablet 10 mg PO HS #30 tabs 01/07/25 02/17/25 Rx ferrous sulfate 325 mg (65 mg 325 mg PO BID #60 tabs 01/20/25 02/17/25 Rx iron) tablet atorvastatin 40 mg tablet 40 mg PO HS #90 tabs 02/07/25 02/17/25 Rx furosemide 20 mg tablet 20 mg PO DAILY #30 tabs 02/15/25 02/17/25 Rx levothyroxine 100 mcg tablet 100 mcg PO DAILYDM #90 tabs 02/15/25 02/17/25 Rx albuterol sulfate 2.5 mg/3 mL 2.5 mg (3 mL) inhalation Q6H #180 02/16/25 02/17/25 Rx (0.083 %) solution for nebulization mL alprazolam 1 mg tablet 1 mg PO TIDP PRN Anxiety 02/17/25 02/17/25 History metoprolol succinate 50 mg 50 mg PO DAILY 02/17/25 02/17/25 History tablet,extended release 24 hr polyethylene glycol 3350 17 17 g PO DAILY PRN Constipation 02/17/25 02/17/25 History gram/dose oral powder (Miralax) quetiapine 50 mg tablet 50 mg PO HS 02/17/25 02/17/25 History rivaroxaban 20 mg tablet (Xarelto) 20 mg PO QPMWITHMEAL 02/17/25 02/17/25 History New Prescriptions to Start Prescriptions: Allergies Allergy/AdvReac Type Severity Reaction Status Date / Time codeine (CODEINE) Allergy Intermediate N/V Verified 02/16/25 23:55 ketorolac (KETOROLAC) Allergy Intermediate Hives Verified 02/16/25 23:55 meperidine (MEPERIDINE) Allergy Intermediate Hives Verified 02/16/25 23:55 tramadol (TRAMADOL) Allergy Intermediate Hives Verified 02/16/25 23:55 verapamil Allergy Mild Unknown Verified 02/16/25 23:55 allergy reaction ciprofloxacin AdvReac Severe Interacts Verified 02/16/25 23:55 with cymbalta Assessment and Plan *Assessment and plan (1) Acute on chronic heart failure with preserved ejection fraction (HFpEF): Status: Acute Category: Medical Code(s): I50.33 - Acute on chronic diastolic (congestive) heart failure (2) Atrial fibrillation with rapid ventricular response: Status: Acute Category: Medical Code(s): I48.91 - Unspecified atrial fibrillation (3) Bright red blood per rectum: Status: Resolved Category: Medical Code(s): K62.5 - Hemorrhage of anus and rectum Plan A-fib RVR - known long standing peristant A-fib, exacerbated in setting of acute GI bleed and HFpef with resp failure - rate improving with resp improvement - continue home dose Toprol XL 50mg daily - change Xarelto to Lovenox given c/o BRBPR Acute on Chronic HFpEF - ProBNP 2k, pleural effusions on CT - ECHO 10/2024 showed nml Bi-V function, LVH 1.3, biatrial dilation - repeat ECHO here today - no change - diuresed 2.2L here with 80mg lasix - she takes Furosemide 20mg at home, will change to 40mg BID - add SGLT2 later - possible colitis on CT and cannot give with active infection CAD - hx of CARLOS, last was >1 year ago per patient - pt denies anginal CP but has anginal equivalent CELESTE - Trop here is neg x2 - EKG - a-fib - ECHO - nml BIV function, no WMA - DC Brilinta due to active GI bleeding - Cont Lovenox, BB, Statin GI bleeding - pt presented with BRBPR - Hgb 10 - s/p hemorrhoidal banding approx 1 mo ago - CT abdomen - possible bleeding in sigmoid colon, possible low grade ileus or enteritis, pt has LUQ pain - DC Brilinta, change Xarelto to Lovenox, consider GI consult Pulm Fibrosis/COPD - on 2.5L baseline - requiring 4L and Bipap here - diurese pleural effusions - nebs/tx per Pulm Chronic Pain - pancreatic divisum - cont home meds
--- NOTE | 2025-02-17 13:19 | CARE MANAGER ---
Patient had requested to speak to SW and/or managed care analyst. Patient voiced concerns with current living situation. She states her house needs to be sprayed for bugs and her boyfriend will not get it done. There is no air conditioning. She has tried getting section 8 housing but her voucher before she could find anywhere. We reviewed the resource list in the patient folder and discussed community action.
[2025-02-17 14:17] LABS: Reflex Lactic Add Lactic Reflex
[2025-02-17 14:38] LABS: Lactate Venous 1.9 mmol/L (0.4-2.0); VBG Base Excess 4.8 mmol/L (-2.4-2.3); VBG Oxygen Saturation 63.7 % (50-70); VBG PH 7.38 mmol/L (7.31-7.41); VBG PO2 36.3 mmol/L (28-40); VBG Total CO2 31.6 mmol/L (23-27)
[2025-02-17 14:41] LABS: VBG PCO2 52.1 mmol/L (35-51)
[2025-02-17 15:08] LABS: Lactic Acid Follow Up (RFLX 1) 1.4 mmol/L (0.7-2.1)
[2025-02-17] MEDS: FUROSEMIDE 40MG/4ML VIAL 40 MG IV (16:14)
[2025-02-17] MEDS: METFORMIN 500MG TABLET 1000 MG PO (16:31)
[2025-02-17 16:57] LABS: POC Glucose,Bedside 129 (70-110)
[2025-02-17] MEDS: ENOXAPARIN 100MG/ML SYRINGE 95 MG SUBCUT (18:59)
--- NOTE | 2025-02-17 19:19 | PC.NURSE ---
at approx 1545 SRNA entered pt room. pt was noted to be awake and lying in the bed and was noted to have Smoke from electronic cigarette coming from her mouth. pt was noted to then place the vape in her bag. Shayla Shirley from pt experience was notified of situation, pt admitted to Shayla Shirley that was using in her room. pt was advised that we are a smoke free facility and was offered a nicotine patch. pt refused nicotine patch and acknowledged that she is unable to use a vape while a patient.
--- NOTE | 2025-02-17 19:25 | EXP.ACUTE.PN ---
Subjective *Date: 02/17/25 *Time: 12:23 Interval history: Alert and oriented on rounds. Irritable however. Complaining of her pain. Waxing and waning with various staff. 1 moment will be histrionic, angry, crying, the next moment is appreciative for care and positive to staff. Risk and patient experience consulted to assist with care. Patient denies nausea or vomiting. Showing improvement with respiratory support. Medical Exam Vital signs and Labs for Last 24 Hours: Vital Signs Temp Pulse Pulse Resp BP BP Pulse Ox 02/17/25 19:16 02/17/25 19:15 93 L 02/17/25 18:03 90 21 157/137 H 82 L 02/17/25 17:01 90 18 126/77 95 02/17/25 17:00 02/17/25 16:01 105 H 15 122/85 93 L 02/17/25 16:00 95 H 02/17/25 15:39 101 H 96 02/17/25 15:00 92 H 14 98/54 L 88 L 02/17/25 14:55 02/17/25 14:00 104 H 16 109/59 L 86 L 02/17/25 13:22 70 02/17/25 13:22 70 02/17/25 13:10 02/17/25 13:01 100 H 14 91/62 L 95 02/17/25 12:00 98 H 90 L 02/17/25 12:00 122 H 02/17/25 12:00 98.6 F 98 H 21 133/69 90 L 02/17/25 11:50 02/17/25 11:00 129 H 21 109/85 L 90 L 02/17/25 10:45 93 L 02/17/25 10:30 97 H 18 99/71 L 90 L 02/17/25 10:00 110 H 20 83/40 L 90 L 02/17/25 09:00 139 H 18 140/95 H 95 02/17/25 09:00 02/17/25 08:40 02/17/25 08:01 97.9 F 128 H 20 94/63 L 94 L 02/17/25 08:00 128 H 94 L 02/17/25 08:00 109 H 02/17/25 07:02 104 H 29 H 86/71 L 91 L 02/17/25 07:00 02/17/25 06:31 86 02/17/25 06:31 123 H 02/17/25 06:31 97 02/17/25 06:31 02/17/25 06:00 91 H 6 L 102/70 L 97 02/17/25 05:00 02/17/25 05:00 83 12 104/74 L 96 02/17/25 04:00 97.9 F 118 H 12 107/79 L 96 02/17/25 04:00 02/17/25 03:15 107 H 25 H 99 02/17/25 03:02 137/95 H 02/17/25 03:00 112 H 26 H 92 L 02/17/25 02:45 111 H 18 97 02/17/25 02:07 02/17/25 02:03 99 H 02/17/25 02:03 102 H 02/17/25 02:00 103 H 17 118/97 H 94 L 02/17/25 01:00 93 H 17 136/92 H 100 02/17/25 01:00 02/17/25 00:11 95 02/17/25 00:11 02/17/25 00:00 97 H 16 120/77 94 L 02/16/25 23:18 64 17 76 L 02/16/25 23:15 113 H 18 105/70 L 90 L 02/16/25 23:00 02/16/25 22:44 98.2 F 95 H 24 132/80 02/16/25 22:35 97 H 02/16/25 22:25 02/16/25 22:16 02/16/25 21:15 96 02/16/25 21:15 02/16/25 20:10 98.4 F 120 H 24 94/51 L 90 L O2 Del Method O2 Flow Rate FiO2 02/17/25 19:16 Nasal Cannula 5 02/17/25 19:15 Nasal Cannula 5 02/17/25 18:03 Nasal Cannula 2 02/17/25 17:01 Nasal Cannula 2 02/17/25 17:00 Nasal Cannula 5 02/17/25 16:01 Nasal Cannula 2 02/17/25 16:00 02/17/25 15:39 Nasal Cannula 5 02/17/25 15:00 Non-Rebreather 5 02/17/25 14:55 Nasal Cannula 5 02/17/25 14:00 Nasal Cannula 5 02/17/25 13:22 02/17/25 13:22 02/17/25 13:10 Nasal Cannula 02/17/25 13:01 Nasal Cannula 2 02/17/25 12:00 Nasal Cannula 2 02/17/25 12:00 02/17/25 12:00 Nasal Cannula 2 02/17/25 11:50 Nasal Cannula 02/17/25 11:00 Nasal Cannula 1 02/17/25 10:45 Nasal Cannula 1 02/17/25 10:30 Nasal Cannula 1 02/17/25 10:00 BiPAP 02/17/25 09:00 BiPAP 02/17/25 09:00 BiPAP 02/17/25 08:40 25 02/17/25 08:01 Nasal Cannula 4 02/17/25 08:00 Nasal Cannula 4 02/17/25 08:00 02/17/25 07:02 Nasal Cannula 4 02/17/25 07:00 Nasal Cannula 4 02/17/25 06:31 02/17/25 06:31 02/17/25 06:31 BiPAP 40 02/17/25 06:31 40 02/17/25 06:00 BiPAP 02/17/25 05:00 BiPAP 02/17/25 05:00 BiPAP 02/17/25 04:00 BiPAP 02/17/25 04:00 BiPAP 40 02/17/25 03:15 BiPAP 02/17/25 03:02 02/17/25 03:00 02/17/25 02:45 02/17/25 02:07 50 02/17/25 02:03 02/17/25 02:03 02/17/25 02:00 BiPAP 02/17/25 01:00 BiPAP 02/17/25 01:00 Nasal Cannula 4 02/17/25 00:11 BiPAP 02/17/25 00:11 50 02/17/25 00:00 BiPAP 02/16/25 23:18 02/16/25 23:15 Nasal Cannula 3 02/16/25 23:00 Nasal Cannula 4 02/16/25 22:44 BiPAP 02/16/25 22:35 02/16/25 22:25 Nasal Cannula 4 02/16/25 22:16 50 02/16/25 21:15 BiPAP 02/16/25 21:15 30 02/16/25 20:10 Room Air, Nasal Cannula 3 Intake and Output 02/17/25 02/17/25 02/17/25 07:59 15:59 23:59 Intake Total 780 / 1200 420 / 1200 Output Total 1599 400 / 2000 Balance -1600 / -800 380 / -800 420 / -800 Intake: Intake, Oral Amount 780 / 1200 420 / 1200 Output: Output, Urine Amount 1599 400 / 2000 Other: Number of Unmeasured Voids 0 Weight 96.343 kg Patient Weight 02/17/25 23:59 Weight 96.343 kg Laboratory Results - last 24 hr 02/16/25 00:44: Urine Color Yellow, Urine Appearance Clear, Urine pH 5.5, Ur Specific [place] 1.015, Urine Protein Negative, Urine Glucose (UA) Negative, Urine Ketones Negative, Urine Blood Negative, Urine Nitrate Negative, Urine Bilirubin Negative, Urine Urobilinogen 0.2, Ur Leukocyte Esterase Negative, Urine WBC Occasional, Ur Squamous Epith Cells 3-5, Urine Bacteria Trace 02/16/25 20:13: WBC 8.9, RBC 3.79 L, Hgb 10.5 L, Hct 34.8 L, MCV 91.8, MCH 27.7, MCHC 30.2 L, RDW 20.1 H, Plt Count 323, MPV 10.7 H, Neut % (Auto) 62.7, Lymph % (Auto) 28.2, [place] % (Auto) 5.6, Eos % (Auto) 2.9, Baso % (Auto) 0.3, Neut # (Auto) 5.6, Lymph # (Auto) 2.5, [place] # (Auto) 0.5, Eos # (Auto) 0.3, Baso # (Auto) 0.0, Sodium 139, Potassium 3.8, Chloride 103, Carbon Dioxide 29, Anion Gap 10.8, BUN 11, Creatinine 1.00, Estimated Creat Clear 77, Estimated GFR 56 L, Est GFR ( Amer) 68, Glucose 111 H, Calcium 9.0, Magnesium 1.5 L, Total Bilirubin 0.8, AST 26, ALT 25, Alkaline Phosphatase 102, Troponin I < 0.01, NT-Pro-B Natriuret Pep 2880 H, Total Protein 6.9, Albumin 4.1, Globulin 2.8, Albumin/Globulin Ratio 1.5, Procalcitonin 0.042 02/16/25 20:14: VBG pH 7.30 L, VBG pCO2 56.3 H, VBG pO2 40.4 H, VBG HCO3 27.3, VBG Total CO2 29.0 H, VBG O2 Saturation 66.3, VBG Base Excess 0.9, VBG Lactic Acid 2.2 H 02/16/25 20:26: Chlamy pneumoniae PCR Not detected, Adenovirus (PCR) Not detected, B. pertussis DNA (PCR) Not detected, Coronavirus OC43 (PCR) Not detected, Coronavirus HKU1 (PCR) Not detected, Coronavirus 229E (PCR) Not detected, SARS-CoV-2 (PCR) Not detected, Coronavirus NL63 (PCR) Not detected, Human Metapneumovir PCR Not detected, Influenza A (H1) PCR Not detected, Influ A (H1N1/09) PCR Not detected, Influenza A (H3) PCR Not detected, Influenza Type A (PCR) Not detected, Influenza Type B (PCR) Not detected, M. pneumoniae (PCR) Not detected, Parainfluenza 1 (PCR) Not detected, Parainfluenza 2 (PCR) Not detected, Parainfluenza 3 (PCR) Not detected, Parainfluenza 4 (PCR) Not detected, RSV (PCR) Not detected, Entero/Rhino (PCR) Not detected 02/16/25 23:00: VBG pH 7.23 L, VBG pCO2 57.1 H, VBG pO2 21.4 L, VBG HCO3 23.3, VBG Total CO2 25.0, VBG O2 Saturation 25.2 L, VBG Base Excess -4.3 L, VBG Lactic Acid 3.6 H 02/16/25 23:12: Troponin I < 0.01 02/16/25 23:36: POC Glucose 167 H 02/17/25 01:08: Lactate 3.0 H 02/17/25 03:36: WBC 9.1, RBC 3.78 L, Hgb 10.6 L, Hct 34.6 L, MCV 91.5, MCH 28.0, MCHC 30.6 L, RDW 19.9 H, Plt Count 328, MPV 10.7 H, Neut % (Auto) 89.7 H, Lymph % (Auto) 8.9 L, [place] % (Auto) 0.7 L, Eos % (Auto) 0.1, Baso % (Auto) 0.2, Neut # (Auto) 8.2 H, Lymph # (Auto) 0.8, [place] # (Auto) 0.1, Eos # (Auto) 0.0, Baso # (Auto) 0.0, Sodium 136, Potassium 4.2, Chloride 94 L, Carbon Dioxide 29, Anion Gap 17.2 H, BUN 12, Creatinine 1.00, Estimated Creat Clear 86, Estimated GFR 56 L, Est GFR ( Amer) 68, Glucose 186 H D, Lactate 3.4 H, Calcium 8.4, Magnesium 1.7 D, Total Bilirubin 0.6, AST 27, ALT 32 D, Alkaline Phosphatase 125, Troponin I < 0.01, Total Protein 7.3, Albumin 4.4, Globulin 2.9, Albumin/Globulin Ratio 1.5, Triglycerides 96, Cholesterol 134 L, LDL Cholesterol Direct 44.76 L, VLDL Cholesterol 19, HDL Cholesterol 70 H, Cholesterol/HDL Ratio 1.9 02/17/25 06:00: VBG pH 7.29 L, VBG pCO2 66.4 H, VBG pO2 27.2 L, VBG HCO3 31.2 H, VBG Total CO2 33.2 H, VBG O2 Saturation 39.0 L, VBG Base Excess 4.6 H, VBG Lactic Acid 3.1 H 02/17/25 06:48: POC Glucose 150 H 02/17/25 10:09: VBG pH 7.40, VBG pCO2 41.4, VBG pO2 69.7 H, VBG HCO3 25.0, VBG Total CO2 26.3, VBG O2 Saturation 93.2 H, VBG Base Excess 0.2, VBG Lactic Acid 3.7 H 02/17/25 11:55: POC Glucose 176 H 02/17/25 14:30: VBG pH 7.38, VBG pCO2 52.1 H, VBG pO2 36.3, VBG HCO3 30.0, VBG Total CO2 31.6 H, VBG O2 Saturation 63.7, VBG Base Excess 4.8 H, VBG Lactic Acid 1.9, Lactate 1.4 02/17/25 16:44: POC Glucose 129 H I & O for Labs for Last 24 Hours: Intake & Output 02/14/25 02/15/25 02/16/25 02/17/25 23:59 23:59 23:59 23:59 Intake Total 1200 / 1200 Output Total 600 / 600 1999 Balance -600 / -600 -800 / -800 Weight 96.343 kg 96.343 kg Constitutional: Present mild distress, morbidly obese, chronically ill appearing and agitated Head: Present atraumatic and normocephalic ENT: Present normal exam Neck: Present normal inspection Respiratory: Present crackles (bases), distant breath sounds, diminished air movement and normal respiratory effort; Absent rhonchi or wheezes Comment:: ribs TTP Right chest mid axillary line Cardiac: Present Irregularly Regular and Tachycardia GI: Present soft, tenderness (LUQ) and normal bowel sounds; Absent distention Extremities: Present normal inspection and full ROM; Absent tenderness Skin: Present intact; Absent erythema Neuro: Present Grossly Intact, alert, awake, oriented x 3 and moves all extremities Assessment and Plan *Assessment and plan (1) Atrial fibrillation with rapid ventricular response: Status: Acute Category: Medical Code(s): I48.91 - Unspecified atrial fibrillation (2) Acute exacerbation of CHF (congestive heart failure): Status: Acute Qualifiers: Heart failure type: unspecified Qualified Code(s): I50.9 - Heart failure, unspecified Category: Medical Code(s): I50.9 - Heart failure, unspecified (3) Acute on chronic respiratory failure with hypoxia and hypercapnia: Status: Acute Category: Medical Code(s): J96.21 - Acute and chronic respiratory failure with hypoxia; J96.22 - Acute and chronic respiratory failure with hypercapnia (4) Bilateral pleural effusion: Status: Acute Category: Medical Code(s): J90 - Pleural effusion, not elsewhere classified (5) Hypomagnesemia: Status: Acute Category: Medical Code(s): E83.42 - Hypomagnesemia (6) Hypothyroidism: Status: Acute Qualifiers: Hypothyroidism type: unspecified Qualified Code(s): E03.9 - Hypothyroidism, unspecified Category: Medical Code(s): E03.9 - Hypothyroidism, unspecified (7) Pulmonary nodules: Status: Acute Category: Medical Code(s): R91.8 - Other nonspecific abnormal finding of lung field (8) Chronic pancreatitis: Status: Acute Qualifiers: Pancreatitis type: unspecified pancreatitis type Qualified Code(s): K86.1 - Other chronic pancreatitis Category: Medical Code(s): K86.1 - Other chronic pancreatitis (9) Low back pain: Status: Acute Qualifiers: Back pain laterality: right Chronicity: chronic Sciatica laterality: sciatica of right side Sciatica presence: with sciatica Qualified Code(s): M54.41 - Lumbago with sciatica, right side; G89.29 - Other chronic pain Category: Medical Code(s): M54.50 - Low back pain, unspecified (10) Morbid obesity: Status: Chronic Category: Medical Code(s): E66.01 - Morbid (severe) obesity due to excess calories Plan 64-year-old female with history of obesity, chronic pancreas this pancreas divisum, A-fib, HFpEF, hypothyroid, tobacco use disorder and COPD. Also has severe anxiety and diabetes. Presented with chest discomfort, shortness of breath, found to have hypercapnia, A-fib with RVR, acute on chronic respiratory failure and acute on chronic heart failure. Admitted for further management. Tolerating BiPAP with good response. Pulmonology and cardiology assisting with care. Continues to require inpatient management. Problems addressed as follows: A-fib RVR Acute on chronic HFpEF - known long standing peristant A-fib, rate worse at this time. Increase metoprolol to 50 mg succinate twice daily. -Cardiology consulted to assist with care, appreciate their recommendations. Will hold Xarelto at this time given concern for possible GI bleed. Patient has history of bleeding hemorrhoids but said she is passing blood. Transition to Lovenox 1 mg/kg twice daily due to shorter duration of action. -Echo obtained in October showing normal BiV function with LVH and biatrial dilation. Repeat echo pending. -Cardiology recommends adding an SGLT2 later, will hold at this time. Continue diuresis with Lasix 40 mg twice daily. -With history of CAD, will hold Brilinta in the setting of possible lower GI bleed. Continue statin Acute on chronic respiratory failure with hypercapnia Pulmonary fibrosis with COPD -Pulmonology consulted and assisting with care. Blood gas showing improvement, pH improved from 7.29-7.36. Will continue BiPAP this evening due to increasing CO2 with nap. Reevaluate in the morning. Goal sats greater 90%. Currently on 4 L. - Continue DuoNebs every 6 hours scheduled. No indication for antibiotics or steroids at this time. GI bleeding Abdominal pain Chronic pancreatitis - pt presented with BRBPR. Holding her Xarelto. Transition to Lovenox. Status post hemorrhoidal banding a month ago. Hemoglobin 10.6. No active bleeding at this time. Repeat CBC, CMP, magnesium ordered for the morning. - CT abdomen in October that showed some possible bleeding in her sigmoid colon along with history of hemorrhoids. Will monitor closely. -Low threshold for repeat CT of abdomen. -Repeat lipase ordered for the morning. -Patient complaining of significant pain, initiated on oxycodone 10 and Dilaudid 0.5. Monitor for toxicity and oversedation. Full code Lovenox Cardiac diet
[2025-02-17] MEDS: QUETIAPINE 100MG TABLET 50 MG PO (20:07)
[2025-02-17] MEDS: ATORVASTATIN 40MG TABLET 40 MG PO (20:07)
[2025-02-17] MEDS: PANTOPRAZOLE 40MG TABLET 40 MG PO (20:09)
[2025-02-17 21:08] LABS: POC Glucose,Bedside 137 (70-110)
[2025-02-18] VITALS (31 sets, daily range): BP systolic 80–128; BP diastolic 42–92; PULSE 65–117; RESP 6–25; TEMP 36.4–37.1; O2SAT 90–100; BMI 34.2
[2025-02-18] MEDS: IPRATROPIUM/ALBUTEROL 3 ML NEB IH ×5 (00:04→23:43)
[2025-02-18] MEDS: HYDROMORPHONE 2MG/ML SYRINGE 0.5 MG IV (04:06)
[2025-02-18] MEDS: OXYCODONE 5MG W/APAP 325MG TABLET 1 EACH PO ×2 (05:56→21:13)
[2025-02-18 06:09] LABS: Basophils % 0.2 % (0.1-2.0); Eosinophils # 0.2 K/mm3 (0.0-0.4); Eosinophils % 1.5 % (0.1-12.0); Hematocrit 34.4 % (37.0-47.0); Hemoglobin 10.3 g/dL (12.2-16.2); Lymphocytes % 29.4 % (10-50); Mean Corpuscular HGB Conc 29.9 g/dL (31.8-35.4); Mean Corpuscular Hemoglobin 27.3 pg (27.0-31.2); Mean Corpuscular Volume 91.2 fl (81-99); Mean Platelet Volume 10.9 fl (7.4-10.4); Monocytes # 0.7 K/mm3 (0.1-1.0); Monocytes % 5.4 % (1.7-9.3); Neutrophils # 8.6 K/mm3 (1.8-7.8); Neutrophils % 63.1 % (37.0-80.0); Platelet Count 382 K/mm3 (142-424); Red Blood Count 3.77 M/mm3 (4.20-5.40); Red Cell Distribution Width 19.8 % (11.5-17.5); White Blood Count 13.6 K/mm3 (4.8-10.8)
[2025-02-18] MEDS: ENOXAPARIN 100MG/ML SYRINGE 95 MG SUBCUT (06:10)
[2025-02-18 06:22] LABS: Alanine Aminotransferase 46 U/L (12-78); Albumin Level 4.6 g/dl (3.5-5.0); Albumin/Globulin Ratio 1.7 (1.1-1.8); Alkaline Phosphatase 91 U/L (38-126); Anion Gap 12.5 mEq/L (5-15); Aspartate Amino Transferase 50 U/L (14-36); Bilirubin,Total 0.5 mg/dl (0.2-1.3); Blood Urea Nitrogen 22 mg/dl (7-17); Calcium 8.4 mg/dl (8.4-10.2); Carbon Dioxide 34 mmol/L (22.0-30.0); Chloride 95 mmol/L (98-107); Creatinine Clearance Estimated 67 mL/min (50-200); Estimated Glomerular Filt Rate 41 ml/min (>60); GFR (African American) 50 ML/MIN (>60); Globulin 2.7 g/dL (1.3-3.2); Glucose 131 mg/dl (74-100); Magnesium 1.9 mg/dl (1.6-2.3); Potassium 4.5 mmoL/L (3.5-5.1); Sodium 137 mmol/L (136-145); Total Protein,Serum 7.3 g/dl (6.3-8.2)
[2025-02-18 06:28] LABS: POC Glucose,Bedside 124 (70-110)
[2025-02-18 06:54] LABS: ABG Base Excess 5.2 mmol/L (-2.4-2.3); ABG HCO3 31.5 mmhg (22.0-26.0); ABG Oxygen Saturation 90 % (90-100); ABG PH 7.31 mmol/L (7.35-7.45); ABG TCO2 33.5 mmhg (23-27)
[2025-02-18 06:57] LABS: Oxygen 5LPM %
[2025-02-18 06:58] LABS: ABG PCO2 64.6 mmhg (35.0-45.0); Source R BRACHIAL
[2025-02-18] MEDS: RANOLAZINE 500MG ER TABLET 500 MG PO ×2 (07:35→16:39)
[2025-02-18] MEDS: METFORMIN 500MG TABLET 1000 MG PO ×2 (07:35→16:39)
[2025-02-18] MEDS: LEVOTHYROXINE 100MCG (0.1MG) TAB 100 MCG PO (07:35)
[2025-02-18 07:37] LABS: Lipase 627 U/L (23-300)
[2025-02-18] MEDS: DULOXETINE 30MG CAPSULE.DR 60 MG PO (08:35)
[2025-02-18] MEDS: GABAPENTIN 600MG TABLET 600 MG PO ×2 (08:35→20:02)
[2025-02-18] MEDS: FAMOTIDINE 20MG/2ML VIAL 20 MG IV ×2 (08:35→20:02)
[2025-02-18] MEDS: FUROSEMIDE 40MG/4ML VIAL 40 MG IV ×2 (08:35→15:10)
[2025-02-18] MEDS: NICOTINE 21MG/24HR PATCH 21 MG TD (08:53)
[2025-02-18] MEDS: METOPROLOL SUCCINATE XL 100MG TABLET 100 MG PO (08:53)
--- NOTE | 2025-02-18 10:12 | P.PN_ITS ---
Subjective *Date: 02/18/25 *Time: 11:56 Interval history: No acute respiratory vents overnight. Patient denies any new respiratory complaints Pulmonology Exam Inpatient Vital signs and Labs for Last 24 Hours: Temp Pulse Resp BP Pulse Ox O2 Del Method O2 Flow Rate 97.5 F L 95 H 24 90/60 L 94 L Nasal Cannula 5 02/18/25 08:28 02/18/25 09:04 02/18/25 09:04 02/18/25 09:04 02/18/25 09:04 02/18/25 09:04 02/18/25 09:04 FiO2 25 02/17/25 08:40 Laboratory Results - last 24 hr 02/17/25 10:09: VBG pH 7.40, VBG pCO2 41.4, VBG pO2 69.7 H, VBG HCO3 25.0, VBG Total CO2 26.3, VBG O2 Saturation 93.2 H, VBG Base Excess 0.2, VBG Lactic Acid 3.7 H 02/17/25 11:55: POC Glucose 176 H 02/17/25 14:30: VBG pH 7.38, VBG pCO2 52.1 H, VBG pO2 36.3, VBG HCO3 30.0, VBG Total CO2 31.6 H, VBG O2 Saturation 63.7, VBG Base Excess 4.8 H, VBG Lactic Acid 1.9, Lactate 1.4 02/17/25 16:44: POC Glucose 129 H 02/17/25 20:59: POC Glucose 137 H 02/18/25 05:34: WBC 13.6 H D, RBC 3.77 L, Hgb 10.3 L, Hct 34.4 L, MCV 91.2, MCH 27.3, MCHC 29.9 L, RDW 19.8 H, Plt Count 382, MPV 10.9 H, Neut % (Auto) 63.1, Lymph % (Auto) 29.4, [place] % (Auto) 5.4, Eos % (Auto) 1.5, Baso % (Auto) 0.2, Neut # (Auto) 8.6 H, Lymph # (Auto) 4.0, [place] # (Auto) 0.7, Eos # (Auto) 0.2, Baso # (Auto) 0.0, Sodium 137, Potassium 4.5, Chloride 95 L, Carbon Dioxide 34 H , Anion Gap 12.5, BUN 22 H D, Creatinine 1.30 H D, Estimated Creat Clear 67, Estimated GFR 41 L, Est GFR ( Amer) 50 L D, Glucose 131 H, Calcium 8.4, Magnesium 1.9 D, Total Bilirubin 0.5, AST 50 H D, ALT 46 D, Alkaline Phosphatase 91, Total Protein 7.3, Albumin 4.6, Globulin 2.7, Albumin/Globulin Ratio 1.7, Lipase 627 H 02/18/25 06:20: POC Glucose 124 H 02/18/25 06:44: Specimen Source R brachial, O2 % 5lpm, ABG pH 7.31 L, ABG pCO2 64.6 H, ABG pO2 67.0 L, ABG HCO3 31.5 H, ABG Total CO2 33.5 H, ABG O2 Saturation 90, ABG Base Excess 5.2 H Temp Pulse Resp BP Pulse Ox O2 Del Method O2 Flow Rate 97.9 F 128 H 20 94/63 L 94 L Nasal Cannula 4 02/17/25 08:01 02/17/25 08:01 02/17/25 08:01 02/17/25 08:01 02/17/25 08:01 02/17/25 08:01 02/17/25 08:01 FiO2 25 02/17/25 08:40 Laboratory Results - last 24 hr 02/16/25 00:44: Urine Color Yellow, Urine Appearance Clear, Urine pH 5.5, Ur Specific [place] 1.015, Urine Protein Negative, Urine Glucose (UA) Negative, Urine Ketones Negative, Urine Blood Negative, Urine Nitrate Negative, Urine Bilirubin Negative, Urine Urobilinogen 0.2, Ur Leukocyte Esterase Negative, Urine WBC Occasional, Ur Squamous Epith Cells 3-5, Urine Bacteria Trace 02/16/25 20:13: WBC 8.9, RBC 3.79 L, Hgb 10.5 L, Hct 34.8 L, MCV 91.8, MCH 27.7, MCHC 30.2 L, RDW 20.1 H, Plt Count 323, MPV 10.7 H, Neut % (Auto) 62.7, Lymph % (Auto) 28.2, [place] % (Auto) 5.6, Eos % (Auto) 2.9, Baso % (Auto) 0.3, Neut # (Auto) 5.6, Lymph # (Auto) 2.5, [place] # (Auto) 0.5, Eos # (Auto) 0.3, Baso # (Auto) 0.0, Sodium 139, Potassium 3.8, Chloride 103, Carbon Dioxide 29, Anion Gap 10.8, BUN 11, Creatinine 1.00, Estimated Creat Clear 77, Estimated GFR 56 L, Est GFR ( Amer) 68, Glucose 111 H, Calcium 9.0, Magnesium 1.5 L, Total Bilirubin 0.8, AST 26, ALT 25, Alkaline Phosphatase 102, Troponin I < 0.01, NT-Pro-B Natriuret Pep 2880 H, Total Protein 6.9, Albumin 4.1, Globulin 2.8, Albumin/Globulin Ratio 1.5, Procalcitonin 0.042 02/16/25 20:14: VBG pH 7.30 L, VBG pCO2 56.3 H, VBG pO2 40.4 H, VBG HCO3 27.3, VBG Total CO2 29.0 H, VBG O2 Saturation 66.3, VBG Base Excess 0.9, VBG Lactic Acid 2.2 H 02/16/25 20:26: Chlamy pneumoniae PCR Not detected, Adenovirus (PCR) Not detected, B. pertussis DNA (PCR) Not detected, Coronavirus OC43 (PCR) Not detected, Coronavirus HKU1 (PCR) Not detected, Coronavirus 229E (PCR) Not detected, SARS-CoV-2 (PCR) Not detected, Coronavirus NL63 (PCR) Not detected, Human Metapneumovir PCR Not detected, Influenza A (H1) PCR Not detected, Influ A (H1N1/09) PCR Not detected, Influenza A (H3) PCR Not detected, Influenza Type A (PCR) Not detected, Influenza Type B (PCR) Not detected, M. pneumoniae (PCR) Not detected, Parainfluenza 1 (PCR) Not detected, Parainfluenza 2 (PCR) Not detected, Parainfluenza 3 (PCR) Not detected, Parainfluenza 4 (PCR) Not detected, RSV (PCR) Not detected, Entero/Rhino (PCR) Not detected 02/16/25 23:00: VBG pH 7.23 L, VBG pCO2 57.1 H, VBG pO2 21.4 L, VBG HCO3 23.3, VBG Total CO2 25.0, VBG O2 Saturation 25.2 L, VBG Base Excess -4.3 L, VBG Lactic Acid 3.6 H 02/16/25 23:12: Troponin I < 0.01 02/16/25 23:36: POC Glucose 167 H 02/17/25 01:08: Lactate 3.0 H 02/17/25 03:36: WBC 9.1, RBC 3.78 L, Hgb 10.6 L, Hct 34.6 L, MCV 91.5, MCH 28.0, MCHC 30.6 L, RDW 19.9 H, Plt Count 328, MPV 10.7 H, Neut % (Auto) 89.7 H, Lymph % (Auto) 8.9 L, [place] % (Auto) 0.7 L, Eos % (Auto) 0.1, Baso % (Auto) 0.2, Neut # (Auto) 8.2 H, Lymph # (Auto) 0.8, [place] # (Auto) 0.1, Eos # (Auto) 0.0, Baso # (Auto) 0.0, Sodium 136, Potassium 4.2, Chloride 94 L, Carbon Dioxide 29, Anion Gap 17.2 H, BUN 12, Creatinine 1.00, Estimated Creat Clear 86, Estimated GFR 56 L, Est GFR ( Amer) 68, Glucose 186 H D, Lactate 3.4 H, Calcium 8.4, Magnesium 1.7 D, Total Bilirubin 0.6, AST 27, ALT 32 D, Alkaline Phosphatase 125, Troponin I < 0.01, Total Protein 7.3, Albumin 4.4, Globulin 2.9, Albumin/Globulin Ratio 1.5, Triglycerides 96, Cholesterol 134 L, LDL Cholesterol Direct 44.76 L, VLDL Cholesterol 19, HDL Cholesterol 70 H, Cholesterol/HDL Ratio 1.9 02/17/25 06:00: VBG pH 7.29 L, VBG pCO2 66.4 H, VBG pO2 27.2 L, VBG HCO3 31.2 H, VBG Total CO2 33.2 H, VBG O2 Saturation 39.0 L, VBG Base Excess 4.6 H, VBG Lactic Acid 3.1 H 02/17/25 06:48: POC Glucose 150 H I & O for Labs for Last 24 Hours: Intake & Output 02/15/25 02/16/25 02/17/25 02/18/25 23:59 23:59 23:59 23:59 Intake Total 1640 / 1640 690 / 690 Output Total 600 / 600 2700 / 2700 200 / 200 Balance -600 / -600 -1060 / -1060 490 / 490 Weight 212 lb 6.4 oz 212 lb 6.399 oz 213 lb Intake & Output 02/14/25 02/15/25 02/16/25 02/17/25 23:59 23:59 23:59 23:59 Intake Total 240 / 240 Output Total 600 / 600 1600 / 1600 Balance -600 / -600 -1360 / -1360 Weight 212 lb 6.4 oz 212 lb 6.399 oz Constitutional: Present moderate distress Head: Present normocephalic and atraumatic ENT: Present normal exam, normal oropharynx and mucous membranes moist Neck: Present normal inspection and full ROM Respiratory: Present prolonged expiratory phase, normal respiratory effort and able to speak in complete sentences; Absent respiratory distress, wheezes or crackles Cardiac: Present S1/S2, Tachycardia and radial pulses present GI: Present soft and distention; Absent tenderness or guarding Rectal (female): Present deferred (female): Present deferred Skin: Present intact; Absent cyanosis or jaundice Neuro: Present alert, awake and oriented x 3 Extremities: Present normal inspection; Absent clubbing or cyanosis Psychiatric: Present normal affect and cooperative Assessment and Plan *Assessment and plan (1) Acute on chronic respiratory failure with hypoxia and hypercapnia: Status: Acute Category: Medical Code(s): J96.21 - Acute and chronic respiratory failure with hypoxia; J96.22 - Acute and chronic respiratory failure with hypercapnia (2) Bilateral pleural effusion: Status: Acute Category: Medical Code(s): J90 - Pleural effusion, not elsewhere classified (3) Pulmonary emphysema: Status: Acute Category: Medical Code(s): J43.9 - Emphysema, unspecified (4) Multiple lung nodules on CT: Status: Acute Category: Medical Code(s): R91.8 - Other nonspecific abnormal finding of lung field Plan Ms. Arteaga is a 64-year-old female presented to the ER with worsening respiratory distress also found to be in A-fib RVR received Cardizem, pulmonary was called for further evaluation and management. Patient admits around [id number] smoking history last smoked around 2019. Admits prior history of COPD. Admits using ambulation therapies 4 times a day on a scheduled basis. Patient also admits history of chronic hypoxic respiratory failure using oxygen supplementation to 2.5 L continuously. She also admits history of sleep apnea however has not been compliant with her CPAP therapy for the last 2 years. CTA upon admission significant emphysematous changes, bilateral groundglass opacities and bilateral pleural effusions mild to moderate on the right side and mild on the left side. No pulmonary embolism noted. Patient also noted to have 1 cm right major intrafissural nodule and 0.6 cm right middle lobe nodule. Complains of respiratory viral PCR panel negative. No evidence of leukocytosis. Afebrile. Blood gas upon admission mild hypercarbic respiratory failure venous blood gas 7.30 with a pCO2 56.3. Blood gas from this morning 7.40 with a pCO2 41.4. Elevated lactate. Currently receiving nebulization therapies and diuretics. Patient also complains history of chronic pancreatitis abdominal pain and requesting pain medications. Interval update: No acute respiratory events overnight. ABG from this morning showed mild hypercarbic respiratory failure while not using her NIV overnight. She does have a history of sleep apnea. Afebrile. Hemodynamically stable. Slight worsening leukocytosis. Will monitor. Pro-[place]ak[place] within normal limits at 0.042 Plan: Continue nasal cannula oxygen supplementation to maintain O2 saturation goal of 90% and above DuoNebs every 6 hours on a scheduled basis No need for antibiotics or steroids at this point of time Will obtain polysomnography testing from [facility]. # For the noted intrafissural and pulmonary lung nodules that have been stable for the last 6 months since August 2024 will follow with a 9-month CT scan to be scheduled for October 2025, will schedule that as an outpatient basis
--- NOTE | 2025-02-18 10:13 | XR_ITS ---
FINAL REPORT CLINICAL HISTORY: Hypoxia COMPARISON: 10/28/2024 FINDINGS: A single frontal view of the chest was obtained. No acute pulmonary opacity is present. There is no evidence of effusion or pneumothorax. Mediastinum is unremarkable. A right chest port is present with the tip in the SVC. There are multiple old right rib fractures. Heart size is enlarged, stable. IMPRESSION: No acute findings. Reviewed, Interpreted and Dictated by Suha Bond MD Transcribed by Felicita Lopez Authenticated and [facility]
[2025-02-18 11:04] LABS: Hemoglobin A1C 6.2 % (4.0-6.0)
[2025-02-18 11:29] LABS: POC Glucose,Bedside 132 (70-110)
[2025-02-18] MEDS: ALPRAZolam 0.5MG TABLET 1 MG PO (12:07)
--- NOTE | 2025-02-18 13:01 | EXP.CARD.PN ---
Subjective Subjective Date: 02/18/25 Time: 09:30 Interval history: No further bleeding overnight Off bipap ECHO unchanged from prior Exam Data for Last 24 hours Vital signs and Labs for Last 24 Hours: Temp Pulse Resp BP Pulse Ox O2 Del Method O2 Flow Rate 97.9 F 116 H 18 108/81 L 94 L Nasal Cannula 4 02/18/25 12:00 02/18/25 12:00 02/18/25 12:00 02/18/25 12:00 02/18/25 12:00 02/18/25 12:00 02/18/25 12:00 FiO2 02/17/25 08:40 Laboratory Results - last 24 hr 02/17/25 14:30: VBG pH 7.38, VBG pCO2 52.1 H, VBG pO2 36.3, VBG HCO3 30.0, VBG Total CO2 31.6 H, VBG O2 Saturation 63.7, VBG Base Excess 4.8 H, VBG Lactic Acid 1.9, Lactate 1.4 02/17/25 16:44: POC Glucose 129 H 02/17/25 20:59: POC Glucose 137 H 02/18/25 05:34: WBC 13.6 H D, RBC 3.77 L, Hgb 10.3 L, Hct 34.4 L, MCV 91.2, MCH 27.3, MCHC 29.9 L, RDW 19.8 H, Plt Count 382, MPV 10.9 H, Neut % (Auto) 63.1, Lymph % (Auto) 29.4, [place] % (Auto) 5.4, Eos % (Auto) 1.5, Baso % (Auto) 0.2, Neut # (Auto) 8.6 H, Lymph # (Auto) 4.0, [place] # (Auto) 0.7, Eos # (Auto) 0.2, Baso # (Auto) 0.0, Sodium 137, Potassium 4.5, Chloride 95 L, Carbon Dioxide 34 H, Anion Gap 12.5, BUN 22 H D, Creatinine 1.30 H D, Estimated Creat Clear 67, Estimated GFR 41 L, Est GFR ( Amer) 50 L D, Glucose 131 H, Hemoglobin A1c 6.2 H, Calcium 8.4, Magnesium 1.9 D, Total Bilirubin 0.5, AST 50 H D, ALT 46 D, Alkaline Phosphatase 91, Total Protein 7.3, Albumin 4.6, Globulin 2.7, Albumin/Globulin Ratio 1.7, Lipase 627 H 02/18/25 06:20: POC Glucose 124 H 02/18/25 06:44: Specimen Source R brachial, O2 % 5lpm, ABG pH 7.31 L, ABG pCO2 64.6 H, ABG pO2 67.0 L, ABG HCO3 31.5 H, ABG Total CO2 33.5 H, ABG O2 Saturation 90, ABG Base Excess 5.2 H 02/18/25 11:22: POC Glucose 132 H Temp Pulse Resp BP Pulse Ox O2 Del Method O2 Flow Rate 98.6 F 98 H 21 133/69 90 L Nasal Cannula 2 02/17/25 12:00 02/17/25 12:00 02/17/25 12:00 02/17/25 12:00 02/17/25 12:00 02/17/25 12:00 02/17/25 12:00 FiO2 25 02/17/25 08:40 Laboratory Results - last 24 hr 02/16/25 00:44: Urine Color Yellow, Urine Appearance Clear, Urine pH 5.5, Ur Specific [place] 1.015, Urine Protein Negative, Urine Glucose (UA) Negative, Urine Ketones Negative, Urine Blood Negative, Urine Nitrate Negative, Urine Bilirubin Negative, Urine Urobilinogen 0.2, Ur Leukocyte Esterase Negative, Urine WBC Occasional, Ur Squamous Epith Cells 3-5, Urine Bacteria Trace 02/16/25 20:13: WBC 8.9, RBC 3.79 L, Hgb 10.5 L, Hct 34.8 L, MCV 91.8, MCH 27.7, MCHC 30.2 L, RDW 20.1 H, Plt Count 323, MPV 10.7 H, Neut % (Auto) 62.7, Lymph % (Auto) 28.2, [place] % (Auto) 5.6, Eos % (Auto) 2.9, Baso % (Auto) 0.3, Neut # (Auto) 5.6, Lymph # (Auto) 2.5, [place] # (Auto) 0.5, Eos # (Auto) 0.3, Baso # (Auto) 0.0, Sodium 139, Potassium 3.8, Chloride 103, Carbon Dioxide 29, Anion Gap 10.8, BUN 11, Creatinine 1.00, Estimated Creat Clear 77, Estimated GFR 56 L, Est GFR ( Amer) 68, Glucose 111 H, Calcium 9.0, Magnesium 1.5 L, Total Bilirubin 0.8, AST 26, ALT 25, Alkaline Phosphatase 102, Troponin I < 0.01, NT-Pro-B Natriuret Pep 2880 H, Total Protein 6.9, Albumin 4.1, Globulin 2.8, Albumin/Globulin Ratio 1.5, Procalcitonin 0.042 02/16/25 20:14: VBG pH 7.30 L, VBG pCO2 56.3 H, VBG pO2 40.4 H, VBG HCO3 27.3, VBG Total CO2 29.0 H, VBG O2 Saturation 66.3, VBG Base Excess 0.9, VBG Lactic Acid 2.2 H 02/16/25 20:26: Chlamy pneumoniae PCR Not detected, Adenovirus (PCR) Not detected, B. pertussis DNA (PCR) Not detected, Coronavirus OC43 (PCR) Not detected, Coronavirus HKU1 (PCR) Not detected, Coronavirus 229E (PCR) Not detected, SARS-CoV-2 (PCR) Not detected, Coronavirus NL63 (PCR) Not detected, Human Metapneumovir PCR Not detected, Influenza A (H1) PCR Not detected, Influ A (H1N1/09) PCR Not detected, Influenza A (H3) PCR Not detected, Influenza Type A (PCR) Not detected, Influenza Type B (PCR) Not detected, M. pneumoniae (PCR) Not detected, Parainfluenza 1 (PCR) Not detected, Parainfluenza 2 (PCR) Not detected, Parainfluenza 3 (PCR) Not detected, Parainfluenza 4 (PCR) Not detected, RSV (PCR) Not detected, Entero/Rhino (PCR) Not detected 02/16/25 23:00: VBG pH 7.23 L, VBG pCO2 57.1 H, VBG pO2 21.4 L, VBG HCO3 23.3, VBG Total CO2 25.0, VBG O2 Saturation 25.2 L, VBG Base Excess -4.3 L, VBG Lactic Acid 3.6 H 02/16/25 23:12: Troponin I < 0.01 02/16/25 23:36: POC Glucose 167 H 02/17/25 01:08: Lactate 3.0 H 02/17/25 03:36: WBC 9.1, RBC 3.78 L, Hgb 10.6 L, Hct 34.6 L, MCV 91.5, MCH 28.0, MCHC 30.6 L, RDW 19.9 H, Plt Count 328, MPV 10.7 H, Neut % (Auto) 89.7 H, Lymph % (Auto) 8.9 L, [place] % (Auto) 0.7 L, Eos % (Auto) 0.1, Baso % (Auto) 0.2, Neut # (Auto) 8.2 H, Lymph # (Auto) 0.8, [place] # (Auto) 0.1, Eos # (Auto) 0.0, Baso # (Auto) 0.0, Sodium 136, Potassium 4.2, Chloride 94 L, Carbon Dioxide 29, Anion Gap 17.2 H, BUN 12, Creatinine 1.00, Estimated Creat Clear 86, Estimated GFR 56 L, Est GFR ( Amer) 68, Glucose 186 H D, Lactate 3.4 H, Calcium 8.4, Magnesium 1.7 D, Total Bilirubin 0.6, AST 27, ALT 32 D, Alkaline Phosphatase 125, Troponin I < 0.01, Total Protein 7.3, Albumin 4.4, Globulin 2.9, Albumin/Globulin Ratio 1.5, Triglycerides 96, Cholesterol 134 L, LDL Cholesterol Direct 44.76 L, VLDL Cholesterol 19, HDL Cholesterol 70 H, Cholesterol/HDL Ratio 1.9 02/17/25 06:00: VBG pH 7.29 L, VBG pCO2 66.4 H, VBG pO2 27.2 L, VBG HCO3 31.2 H, VBG Total CO2 33.2 H, VBG O2 Saturation 39.0 L, VBG Base Excess 4.6 H, VBG Lactic Acid 3.1 H 02/17/25 06:48: POC Glucose 150 H 02/17/25 10:09: VBG pH 7.40, VBG pCO2 41.4, VBG pO2 69.7 H, VBG HCO3 25.0, VBG Total CO2 26.3, VBG O2 Saturation 93.2 H, VBG Base Excess 0.2, VBG Lactic Acid 3.7 H 02/17/25 11:55: POC Glucose 176 H I & O for Last 24 hours: Intake & Output 02/15/25 02/16/25 02/17/25 02/18/25 23:59 23:59 23:59 23:59 Intake Total 1640 / 1640 930 / 930 Output Total 600 / 600 2700 / 2700 1900 / 1900 Balance -600 / -600 -1060 / -1060 -970 / -970 Weight 212 lb 6.4 oz 212 lb 6.399 oz 213 lb Intake & Output 02/14/25 02/15/25 02/16/25 02/17/25 23:59 23:59 23:59 23:59 Intake Total 240 / 240 Output Total 600 / 600 1999 Balance -600 / -600 -1760 / -1760 Weight 212 lb 6.4 oz 212 lb 6.399 oz Constitutional Constitutional: no acute distress, obese and cooperative *Routine HEENT Exam Eye: Present PERRL *Routine Respiratory Exam Respiratory: Present CTA bilaterally; Absent accessory muscle use, wheezes or crackles *Routine Cardiovascular Exam Cardiovascular: Present RRR, Normal S1 and Normal S2; Absent murmur, gallop or rubs *Routine Abdominal Exam Abdominal: Present soft Comments: LUQ pain to palpation *Routine Extremities Exam Extremities: Present pulses intact; Absent cyanosis or edema *Routine Skin Exam Skin: Present intact; Absent erythema or wounds *Routine Neurological Exam Neurological: Present alert and oriented X3 Routine Psychiatric Exam Psychiatric: Present cooperative Progress Note: A&P Assessment and plan (1) Acute on chronic respiratory failure with hypoxia and hypercapnia: Status: Acute (2) Bilateral pleural effusion: Status: Acute (3) Pulmonary emphysema: Status: Acute (4) Multiple lung nodules on CT: Status: Acute (5) Atrial fibrillation with rapid ventricular response: Status: Acute Assessment and Plan Assessment and Plan for All Diagnoses:: A-fib RVR - known long standing peristant A-fib, exacerbated in setting of acute GI bleed and HFpef with resp failure - rate improving with resp improvement - continue home dose Toprol XL 50mg daily - 02/18 Rate controlled. No further GI bleeding, will resume Xarelto but at 15mg dose with ASA 81mg daily Acute on Chronic HFpEF - ProBNP 2k, pleural effusions on CT - ECHO 10/2024 showed nml Bi-V function, LVH 1.3, biatrial dilation - repeat ECHO here today - no change - diuresed 2.2L here with 80mg lasix - she takes Furosemide 20mg at home, will change to 40mg BID - add SGLT2 later - possible colitis on CT and cannot give with active infection 02/18: euvolemic CAD - hx of CARLOS, last was >1 year ago per patient - pt denies anginal CP but has anginal equivalent CELESTE - Trop here is neg x2 - EKG - a-fib - ECHO - nml BIV function, no WMA - DC Brilinta due to active GI bleeding - Cont Lovenox, BB, Statin - 02/18 - No further bleeding. Will add ASA 81mg daily GI bleeding - pt presented with BRBPR - Hgb 10 - s/p hemorrhoidal banding approx 1 mo ago - CT abdomen in Oct - possible bleeding in sigmoid colon, possible low grade ileus or enteritis, pt has LUQ pain - 02/18 - no further bleeding. Resume ASA 81 and Xarelto 15 Pulm Fibrosis/COPD - on 2.5L baseline - requiring 4L and Bipap here - diurese pleural effusions - nebs/tx per Pulm Chronic Pain - pancreatic divisum - cont home meds 02/18 CV stable/improving. Try resuming ASA 81mg and Xarelto at 15mg dose. Monitor for further GI bleeding. She is diuresed back to baseline. Labs indicate acute pancreatitis which is likely was prompted her ED visit. She still has LUQ tenderness on exam - will defer to Hospitalist. She needs OP f/u with us in 1-2 weeks post discharge.
[2025-02-18] MEDS: ASPIRIN EC 81MG TABLET 81 MG PO (13:19)
--- NOTE | 2025-02-18 13:58 | CARE MANAGER ---
Patient is not sure where her CPAP is and previously got it from [facility] [place]. [facility]btained previous sleep study and sent new order to [facility]. Patient agreeable. Discussed with Dr. Cody and Dr. Aleman.
--- NOTE | 2025-02-18 13:59 | PC.NURSE ---
Report given to LAITH Henriquez
--- NOTE | 2025-02-18 14:25 | PC.NURSE ---
arrived by w/c from ICU
[2025-02-18] MEDS: RIVAROXABAN 15MG TABLET 15 MG PO (16:39)
[2025-02-18 16:55] LABS: POC Glucose,Bedside 101 (70-110)
--- NOTE | 2025-02-18 18:03 | PC.NURSE ---
Student nurse Lidia provided care under my supervision this shift.
--- NOTE | 2025-02-18 18:04 | PC.NURSE ---
patient is a/o x4 and remains on 3LNC. patient medications and vape are locked up in patient drawer. bed alarm in place. call light within reach. no further requests at this time.
--- NOTE | 2025-02-18 18:19 | PC.NURSE ---
patient O2 dropped to 86% on 3LNC while sleeping. notified RT and they requested she be placed on 4LNC while sleeping.
--- NOTE | 2025-02-18 18:56 | EXP.ACUTE.PN ---
Subjective *Date: 02/18/25 *Time: 20:19 Interval history: Alert and oriented on rounds to verbal stimuli but dozes easily. Appears somewhat oversedated on pain medication. Still complains of some pain however does not appear uncomfortable and dozes easily while talking. On 5 L oxygen while sleeping. Weaned to 3 L while awake. No nausea or vomiting. Tolerating p.o. intake. Afebrile. Heart rate in the 90s on morning rounds. Medical Exam Vital signs and Labs for Last 24 Hours: Vital Signs Temp Pulse Pulse Resp BP BP Pulse Ox 02/18/25 18:48 02/18/25 18:32 102 H 02/18/25 18:32 98 H 02/18/25 17:49 100 H 02/18/25 17:00 02/18/25 16:00 92 L 02/18/25 16:00 98.0 F 108 H 20 106/68 L 92 L 02/18/25 15:00 02/18/25 14:00 104 H 18 104/72 L 96 02/18/25 13:00 02/18/25 13:00 108 H 18 107/76 L 92 L 02/18/25 12:00 97.9 F 116 H 18 108/81 L 94 L 02/18/25 12:00 105 H 02/18/25 11:17 96 02/18/25 11:16 117 H 02/18/25 11:16 117 H 02/18/25 11:00 02/18/25 11:00 101 H 18 110/75 90 L 02/18/25 10:01 82 18 122/86 93 L 02/18/25 09:04 95 H 24 90/60 L 94 L 02/18/25 09:00 02/18/25 08:28 97.5 F L 117 H 18 119/92 H 92 L 02/18/25 08:26 02/18/25 08:00 101 H 02/18/25 07:00 85 20 106/86 L 95 02/18/25 06:13 02/18/25 06:00 117/87 02/18/25 06:00 98 H 6 L 117/87 93 L 02/18/25 05:45 24 02/18/25 05:30 13 02/18/25 05:15 14 02/18/25 05:00 95 H 12 124/76 92 L 02/18/25 04:26 02/18/25 04:11 95 H 02/18/25 04:00 98.7 F 87 19 102/61 L 94 L 02/18/25 04:00 02/18/25 03:00 80/58 L 02/18/25 03:00 86 13 80/58 L 96 02/18/25 02:06 02/18/25 02:01 87 10 L 96 02/18/25 02:00 92 H 12 83/42 L 96 02/18/25 01:00 92 H 21 128/86 94 L 02/18/25 01:00 02/18/25 00:04 91 H 02/18/25 00:04 97 H 02/18/25 00:00 97.6 F 65 25 H 109/82 L 100 02/18/25 00:00 02/18/25 00:00 102 H 02/17/25 23:00 02/17/25 23:00 75 12 118/80 98 02/17/25 22:00 82 8 L 134/81 97 02/17/25 21:01 103 H 17 83/63 L 94 L 02/17/25 21:00 102 H 16 81 L 02/17/25 21:00 02/17/25 20:00 02/17/25 20:00 111 H 02/17/25 20:00 87 19 92/70 L 92 L 02/17/25 19:16 02/17/25 19:15 93 L 02/17/25 19:00 106 H 23 92 L O2 Del Method O2 Flow Rate 02/18/25 18:48 Nasal Cannula 3 02/18/25 18:32 02/18/25 18:32 02/18/25 17:49 02/18/25 17:00 Nasal Cannula 3 02/18/25 16:00 Nasal Cannula 4 02/18/25 16:00 3 02/18/25 15:00 Nasal Cannula 3 02/18/25 14:00 Nasal Cannula 3 02/18/25 13:00 Nasal Cannula 3 02/18/25 13:00 Nasal Cannula 3 02/18/25 12:00 Nasal Cannula 3 02/18/25 12:00 02/18/25 11:17 Nasal Cannula 2 02/18/25 11:16 02/18/25 11:16 02/18/25 11:00 Nasal Cannula 2 02/18/25 11:00 Nasal Cannula 2 02/18/25 10:01 Nasal Cannula 5 02/18/25 09:04 Nasal Cannula 5 02/18/25 09:00 Nasal Cannula 5 02/18/25 08:28 Nasal Cannula 5 02/18/25 08:26 Nasal Cannula 5 02/18/25 08:00 02/18/25 07:00 Nasal Cannula 5 02/18/25 06:13 Nasal Cannula 5 02/18/25 06:00 02/18/25 06:00 02/18/25 05:45 02/18/25 05:30 02/18/25 05:15 02/18/25 05:00 Nasal Cannula 5 02/18/25 04:26 Nasal Cannula 5 02/18/25 04:11 02/18/25 04:00 Nasal Cannula 5 02/18/25 04:00 Nasal Cannula 6 02/18/25 03:00 02/18/25 03:00 Nasal Cannula 5 02/18/25 02:06 Nasal Cannula 5 02/18/25 02:01 02/18/25 02:00 Nasal Cannula 5 02/18/25 01:00 Nasal Cannula 5 02/18/25 01:00 Nasal Cannula 5 02/18/25 00:04 02/18/25 00:04 02/18/25 00:00 Nasal Cannula 5 02/18/25 00:00 Nasal Cannula 5 02/18/25 00:00 02/17/25 23:00 Nasal Cannula 6 02/17/25 23:00 Nasal Cannula 6 02/17/25 22:00 Nasal Cannula 4 02/17/25 21:01 Nasal Cannula 4 02/17/25 21:00 02/17/25 21:00 Nasal Cannula 6 02/17/25 20:00 Nasal Cannula 6 02/17/25 20:00 02/17/25 20:00 Nasal Cannula 4 02/17/25 19:16 Nasal Cannula 5 02/17/25 19:15 Nasal Cannula 5 02/17/25 19:00 Intake and Output 02/18/25 02/18/25 02/18/25 07:59 15:59 23:59 Intake Total 420 / 1350 510 / 1350 420 / 1350 Output Total 200 / 2700 1700 / 2700 800 / 2700 Balance 220 / -1350 -1190 / -1350 -380 / -1350 Intake: Intake, Oral Amount 420 / 1350 510 / 1350 420 / 1350 Output: Output, Urine Amount 200 / 2700 1700 / 2700 800 / 2700 Other: Number of Voids 1 Number of Unmeasured Voids 1 1 Number of Bowel Movements 1 Weight 96.615 kg 96.61 kg Patient Weight 02/18/25 23:59 Weight 96.61 kg Laboratory Results - last 24 hr 02/17/25 20:59: POC Glucose 137 H 02/18/25 05:34: WBC 13.6 H D, RBC 3.77 L, Hgb 10.3 L, Hct 34.4 L, MCV 91.2, MCH 27.3, MCHC 29.9 L, RDW 19.8 H, Plt Count 382, MPV 10.9 H, Neut % (Auto) 63.1, Lymph % (Auto) 29.4, [place] % (Auto) 5.4, Eos % (Auto) 1.5, Baso % (Auto) 0.2, Neut # (Auto) 8.6 H, Lymph # (Auto) 4.0, [place] # (Auto) 0.7, Eos # (Auto) 0.2, Baso # (Auto) 0.0, Sodium 137, Potassium 4.5, Chloride 95 L, Carbon Dioxide 34 H, Anion Gap 12.5, BUN 22 H D, Creatinine 1.30 H D, Estimated Creat Clear 67, Estimated GFR 41 L, Est GFR ( Amer) 50 L D, Glucose 131 H, Hemoglobin A1c 6.2 H, Calcium 8.4, Magnesium 1.9 D, Total Bilirubin 0.5, AST 50 H D, ALT 46 D, Alkaline Phosphatase 91, Total Protein 7.3, Albumin 4.6, Globulin 2.7, Albumin/Globulin Ratio 1.7, Lipase 627 H 02/18/25 06:20: POC Glucose 124 H 02/18/25 06:44: Specimen Source R brachial, O2 % 5lpm, ABG pH 7.31 L, ABG pCO2 64.6 H, ABG pO2 67.0 L, ABG HCO3 31.5 H, ABG Total CO2 33.5 H, ABG O2 Saturation 90, ABG Base Excess 5.2 H 02/18/25 11:22: POC Glucose 132 H 02/18/25 16:38: POC Glucose 101 I & O for Labs for Last 24 Hours: Intake & Output 02/15/25 02/16/25 02/17/25 02/18/25 23:59 23:59 23:59 23:59 Intake Total 1640 / 1640 1350 / 1350 Output Total 600 / 600 2700 / 2700 2700 / 2700 Balance -600 / -600 -1060 / -1060 -1350 / -1350 Weight 96.343 kg 96.343 kg 96.61 kg Constitutional: Present no acute distress, morbidly obese, chronically ill appearing and agitated Head: Present atraumatic and normocephalic ENT: Present normal exam Neck: Present normal inspection Respiratory: Present distant breath sounds, diminished air movement and normal respiratory effort; Absent rhonchi, wheezes or crackles Comment:: ribs TTP Right chest mid axillary line Cardiac: Present Irregularly Regular and Tachycardia GI: Present soft, tenderness (LUQ, mild) and normal bowel sounds; Absent distention Extremities: Present normal inspection and full ROM; Absent tenderness Skin: Present intact; Absent erythema Neuro: Present Grossly Intact, alert, awake, oriented x 3 and moves all extremities Assessment and Plan *Assessment and plan (1) Atrial fibrillation with rapid ventricular response: Status: Acute Category: Medical Code(s): I48.91 - Unspecified atrial fibrillation (2) Acute exacerbation of CHF (congestive heart failure): Status: Acute Qualifiers: Heart failure type: unspecified Qualified Code(s): I50.9 - Heart failure, unspecified Category: Medical Code(s): I50.9 - Heart failure, unspecified (3) Acute on chronic respiratory failure with hypoxia and hypercapnia: Status: Acute Category: Medical Code(s): J96.21 - Acute and chronic respiratory failure with hypoxia; J96.22 - Acute and chronic respiratory failure with hypercapnia (4) Bilateral pleural effusion: Status: Acute Category: Medical Code(s): J90 - Pleural effusion, not elsewhere classified (5) Hypomagnesemia: Status: Acute Category: Medical Code(s): E83.42 - Hypomagnesemia (6) Hypothyroidism: Status: Acute Qualifiers: Hypothyroidism type: unspecified Qualified Code(s): E03.9 - Hypothyroidism, unspecified Category: Medical Code(s): E03.9 - Hypothyroidism, unspecified (7) Pulmonary nodules: Status: Acute Category: Medical Code(s): R91.8 - Other nonspecific abnormal finding of lung field (8) Chronic pancreatitis: Status: Acute Qualifiers: Pancreatitis type: unspecified pancreatitis type Qualified Code(s): K86.1 - Other chronic pancreatitis Category: Medical Code(s): K86.1 - Other chronic pancreatitis (9) Low back pain: Status: Acute Qualifiers: Back pain laterality: right Chronicity: chronic Sciatica laterality: sciatica of right side Sciatica presence: with sciatica Qualified Code(s): M54.41 - Lumbago with sciatica, right side; G89.29 - Other chronic pain Category: Medical Code(s): M54.50 - Low back pain, unspecified (10) Morbid obesity: Status: Chronic Category: Medical Code(s): E66.01 - Morbid (severe) obesity due to excess calories Plan 64-year-old female with history of obesity, chronic pancreas this pancreas divisum, A-fib, HFpEF, hypothyroid, tobacco use disorder and COPD. Also has severe anxiety and diabetes. Presented with chest discomfort, shortness of breath, found to have hypercapnia, A-fib with RVR, acute on chronic respiratory failure and acute on chronic heart failure. Admitted for further management. Will continue to manage and initiate CPAP overnight due to sleep apnea. Discussed case with pulmonology, had sleep study done several years ago with severe sleep apnea (AHI greater than 70). Pulmonology and cardiology assisting with care. Anticipate discharge tomorrow. Problems addressed as follows: A-fib RVR Acute on chronic HFpEF - known long standing peristant A-fib, rate somewhat improved at 90 this morning. Continue metoprolol succinate 50 mg twice daily. - Cardiology consulted to assist with care, appreciate their recommendations. Will hold Xarelto at this time given concern for possible GI bleed. Patient has history of bleeding hemorrhoids but said she is passing blood. Transition to Lovenox 1 mg/kg twice daily due to shorter duration of action. Consider resuming Xarelto at discharge. Recommend discontinuing antiplatelet therapy as it has been well over a year since heart cath. -Echo obtained in October showing normal BiV function with LVH and biatrial dilation. Repeat echo pending. -Cardiology recommends adding an SGLT2 later, will hold at this time. Continue diuresis with Lasix 40 mg twice daily. -With history of CAD, will hold Brilinta in the setting of possible lower GI bleed. Continue statin -BUN 22, creatinine 1.3. Repeat CBC, CMP, magnesium ordered for the morning. Acute on chronic respiratory failure with hypercapnia Pulmonary fibrosis with COPD Severe sleep apnea -Pulmonology consulted and assisting with care. Patient's overnight hypoxia and hypercapnia likely secondary to her sleep apnea. Review of sleep study from several years ago shows severe sleep apnea. CPAP tonight per pulmonology recommendations. Monitor for tolerance. Anticipate discharge tomorrow. On 3 L nasal cannula during the day. -Will sats greater 90%. - Continue DuoNebs every 6 hours scheduled. No indication for antibiotics or steroids at this time. GI bleeding Abdominal pain Chronic pancreatitis - pt presented with BRBPR. Holding her Xarelto. Transition to Lovenox. Status post hemorrhoidal banding a month ago. Hemoglobin 10.6. No active bleeding at this time. -Lipase elevated at 627. Does have some mild acute on chronic pancreatitis. Pain regimen decreased due to oversedation. Continue oxycodone 5 mg every 6 hours, monitor for toxicity -Low threshold for repeat CT of abdomen. Full code Lovenox Cardiac diet
[2025-02-18] MEDS: TRAZODONE 50MG TABLET 100 MG PO (20:02)
[2025-02-18] MEDS: PANTOPRAZOLE 40MG TABLET 40 MG PO (20:02)
[2025-02-18] MEDS: ATORVASTATIN 40MG TABLET 40 MG PO (20:02)
[2025-02-18] MEDS: SODIUM CHLORIDE 0.9% 10ML VIAL 8 ML IV (20:02)
[2025-02-18] MEDS: QUETIAPINE 100MG TABLET 50 MG PO (20:13)
[2025-02-18 20:24] LABS: POC Glucose,Bedside 96 (70-110)
[2025-02-18 21:23] LABS: VBG HCO3 29.2 mmol/L (23-30); VBG Oxygen Saturation 52.1 % (50-70); VBG PH 7.32 mmol/L (7.31-7.41); VBG PO2 32.4 mmol/L (28-40)
[2025-02-18 21:26] LABS: Lactate Venous 2.6 mmol/L (0.4-2.0); VBG PCO2 58.2 mmol/L (35-51)
[2025-02-19] VITALS: PULSE 100
[2025-02-19 01:23] LABS: Reflex Lactic Add Lactic Reflex
[2025-02-19 01:50] LABS: Lactic Acid Follow Up (RFLX 1) 1.9 mmol/L (0.7-2.1)
[2025-02-19 04:00] VITALS: BP 93/55; PULSE 100; PULSE 91; RESP 16; TEMP 36.8; O2SAT 95; BMI 33.7
--- NOTE | 2025-02-19 06:00 | PC.NURSE ---
remained on 3L NC t/o night, minus wearing the CPAP. patient had an incontinent liquid BM in bed, took shower. hard to arouse at times.
[2025-02-19 06:26] LABS: Basophils % 0.3 % (0.1-2.0); Eosinophils # 0.4 K/mm3 (0.0-0.4); Eosinophils % 3.8 % (0.1-12.0); Hematocrit 31.1 % (37.0-47.0); Hemoglobin 9.7 g/dL (12.2-16.2); Lymphocytes # 2.8 K/mm3 (0.7-4.5); Lymphocytes % 25.4 % (10-50); Mean Corpuscular HGB Conc 31.2 g/dL (31.8-35.4); Mean Corpuscular Hemoglobin 28.5 pg (27.0-31.2); Mean Corpuscular Volume 91.5 fl (81-99); Mean Platelet Volume 10.3 fl (7.4-10.4); Monocytes # 0.6 K/mm3 (0.1-1.0); Monocytes % 5.4 % (1.7-9.3); Neutrophils % 64.7 % (37.0-80.0); Platelet Count 324 K/mm3 (142-424); Red Cell Distribution Width 19.5 % (11.5-17.5); White Blood Count 10.8 K/mm3 (4.8-10.8)
[2025-02-19 06:29] VITALS: PULSE 95; PULSE 97
[2025-02-19] MEDS: IPRATROPIUM/ALBUTEROL 3 ML NEB IH ×2 (06:30→10:47)
[2025-02-19 06:36] LABS: Alanine Aminotransferase 34 U/L (12-78); Albumin Level 3.7 g/dl (3.5-5.0); Albumin/Globulin Ratio 1.4 (1.1-1.8); Alkaline Phosphatase 118 U/L (38-126); Anion Gap 8.1 mEq/L (5-15); Aspartate Amino Transferase 26 U/L (14-36); Bilirubin,Total 0.5 mg/dl (0.2-1.3); Blood Urea Nitrogen 31 mg/dl (7-17); Calcium 8.5 mg/dl (8.4-10.2); Carbon Dioxide 37 mmol/L (22.0-30.0); Chloride 94 mmol/L (98-107); Creatinine Clearance Estimated 78 mL/min (50-200); Estimated Glomerular Filt Rate 50 ml/min (>60); GFR (African American) 61 ML/MIN (>60); Globulin 2.7 g/dL (1.3-3.2); Glucose 112 mg/dl (74-100); Potassium 4.1 mmoL/L (3.5-5.1); Sodium 135 mmol/L (136-145); Total Protein,Serum 6.4 g/dl (6.3-8.2)
[2025-02-19 06:44] LABS: Magnesium 1.5 mg/dl (1.6-2.3)
[2025-02-19 08:00] VITALS: BP 95/67; PULSE 100; PULSE 105; RESP 19; TEMP 36.6; O2SAT 93
[2025-02-19] MEDS: METFORMIN 500MG TABLET 1000 MG PO (09:06)
[2025-02-19] MEDS: DULOXETINE 30MG CAPSULE.DR 60 MG PO (09:06)
[2025-02-19] MEDS: LEVOTHYROXINE 100MCG (0.1MG) TAB 100 MCG PO (09:07)
[2025-02-19] MEDS: METOPROLOL SUCCINATE XL 100MG TABLET 100 MG PO (09:07)
[2025-02-19] MEDS: GABAPENTIN 600MG TABLET 600 MG PO (09:07)
[2025-02-19] MEDS: MAGNESIUM SULFATE IN WATER 2 GM/50 ML PIGGYBACK IV ×2 (09:08→09:59)
[2025-02-19] MEDS: ASPIRIN EC 81MG TABLET 81 MG PO (09:08)
[2025-02-19] MEDS: RANOLAZINE 500MG ER TABLET 500 MG PO (09:08)
[2025-02-19] MEDS: FUROSEMIDE 40MG/4ML VIAL 40 MG IV (09:09)
[2025-02-19] MEDS: FAMOTIDINE 20MG/2ML VIAL 20 MG IV (09:09)
[2025-02-19] MEDS: NICOTINE 21MG/24HR PATCH 21 MG TD (09:09)
--- NOTE | 2025-02-19 09:35 | EXP.DC.SUM ---
General Admission date:: 02/16/25 Discharge date: 02/19/25 HPI HPI HPI: This 64-year-old female has a very complicated medical history. Began to have more difficulty breathing and came to the ER for chest pain. Patient was found to be in atrial fibs with a rapid ventricular response. Cardizem was given and the rate did slow down.. Patient was also on BiPAP transition down to nasal cannula but noted decline in respiratory status per ABG and placed back on BiPAP in the unit.. Patient told nurse that she is post be on CPAP at home but does not wear. Per patient's last note in October was discharged with calcium channel clifton diltiazem. Patient had no memory of that and has not been taking any. Present respiratory difficulty not able to wean to nasal cannula must be related to pulmonary effusions bilateral. Plan to continue pulmonary toileting nebulizer treatments and keep on BiPAP as we need to review being able to wean if possible CT of chest done< No central or segmental pulmonary arterial embolism identified. 2. Bilateral pleural effusions with compressive subsegmental atelectasis. 3. Air trapping with underlying emphysematous changes. 4. Stable pulmonary nodules. Patient also noted for her atrial fibs not being on diltiazem. And no sign that she followed up with cardiology after being prescribed that medicine. Review of last cardiology note from August 2024 also gives a history of CVA. But in talking with the patient do not see any acute sign of stroke or deficit. Hospital Course Hospital Course Hospital Course: 64-year-old female with history of obesity, chronic pancreas this pancreas divisum, A-fib, HFpEF, hypothyroid, tobacco use disorder and COPD. Also has severe anxiety and diabetes. Presented with chest discomfort, shortness of breath, found to have hypercapnia, A-fib with RVR, acute on chronic respiratory failure and acute on chronic heart failure. Admitted for further management. Blood gas improved with noninvasive positive pressure ventilation. Monitored with CPAP overnight prior to discharge home. Patient tolerated for part of the night. Strongly encouraged to wear when she gets home. High risk for readmission if she does not wear her sleeping device. New order sent to her [facility] for new AutoPap. Pulmonology and cardiology assisted with care during admission. Recommend follow-up with pulmonology and cardiology as an outpatient. Tolerating p.o. intake and otherwise showing improvement from her pancreatitis. A-fib better controlled. Problems addressed as follows: A-fib RVR Acute on chronic HFpEF -Patient is known history of longstanding persistent A-fib. Rate was somewhat elevated on admission. Improved with adjustment of her metoprolol dose. Will continue metoprolol succinate 100 mg daily. Cardiology consulted and assisted with care. Initially recommended holding Xarelto due to concern for some GI bleed. Xarelto has been resumed due to her risk for CVA with her A-fib. Resume Xarelto 15 mg daily and aspirin 81 mg daily. Discontinued antiplatelet therapy. Echo obtained in October showing normal BiV function with LVH and biatrial dilation. Repeat echo with stable findings. Cardiology recommends adding an SGLT2 later, will hold at this time. Responded well to IV diuresis during admission. Transition to 40 mg p.o. daily at discharge as she appears euvolemic at this time. Continue statin therapy at discharge. Kidney function at baseline BUN 31, creatinine 1.1. Acute on chronic respiratory failure with hypercapnia Pulmonary fibrosis with COPD Severe sleep apnea -Pulmonology consulted and assisting with care. Patient's overnight hypoxia and hypercapnia likely secondary to her sleep apnea. Polysomnography testing and titration study performed in 2017 reviewed, patient had severe sleep apnea with AHI of 79. Titration study with a pressure of 20 resulted in AHI of 23 with prominent hypopneas with a total of 2 obstructive apnea events at that pressure. Tolerated CPAP reported the night prior to discharge. Recommend continuing CPAP on discharge with auto CPAP at 8-22 and oxygen supplementation at 2 L. Baseline oxygen at discharge during the day. Continue DuoNebs and inhalers at discharge. GI bleeding Abdominal pain Chronic pancreatitis - pt presented with BRBPR. Initially held Xarelto. Hemoglobin stable at approximately 10. No active signs of bleeding during admission. Patient also found to have mild acute on chronic pancreatitis with lipase elevated at 600. Pain improved with opiates. Continue short course of oxycodone at discharge for severe breakthrough pain. Tolerating p.o. intake without worsening pain. Advance to regular diet. Continue home regimen for hypothyroid with 100 mcg levothyroxine daily Continue home gabapentin regimen with 600 mg twice daily Continue home Cymbalta 60 mg twice daily for mood -Continue home alprazolam for anxiety. -Continue Seroquel 50 mg nightly for mood and sleep Total time spent on discharge 32 minutes in counseling, documentation, chart review, and direct care with patient. Exam Data for Last 24 hours Vital signs and Labs for Last 24 Hours: Temp Pulse Resp BP Pulse Ox O2 Del Method O2 Flow Rate 97.9 F 105 H 19 95/67 L 93 L Nasal Cannula 3 02/19/25 08:00 02/19/25 08:00 02/19/25 08:00 02/19/25 08:00 02/19/25 08:00 02/19/25 09:00 02/19/25 09:00 FiO2 28 02/18/25 22:00 Laboratory Results - last 24 hr 02/18/25 05:34: Hemoglobin A1c 6.2 H 02/18/25 11:22: POC Glucose 132 H 02/18/25 16:38: POC Glucose 101 02/18/25 18:55: VBG pH 7.32, VBG pCO2 58.2 H, VBG pO2 32.4, VBG HCO3 29.2, VBG Total CO2 31.0 H, VBG O2 Saturation 52.1, VBG Base Excess 3.0 H, VBG Lactic Acid 2.6 H 02/18/25 20:17: POC Glucose 96 02/19/25 01:30: Lactate 1.9 02/19/25 06:20: WBC 10.8, RBC 3.40 L, Hgb 9.7 L, Hct 31.1 L, MCV 91.5, MCH 28.5, MCHC 31.2 L, RDW 19.5 H, Plt Count 324, MPV 10.3, Neut % (Auto) 64.7, Lymph % (Auto) 25.4, [place] % (Auto) 5.4, Eos % (Auto) 3.8, Baso % (Auto) 0.3, Neut # (Auto) 7.0, Lymph # (Auto) 2.8, [place] # (Auto) 0.6, Eos # (Auto) 0.4, Baso # (Auto) 0.0, Sodium 135 L, Potassium 4.1, Chloride 94 L, Carbon Dioxide 37 H, Anion Gap 8.1, BUN 31 H D, Creatinine 1.10 H, Estimated Creat Clear 78, Estimated GFR 50 L, Est GFR ( Amer) 61 D, Glucose 112 H, Calcium 8.5, Magnesium 1.5 L D, Total Bilirubin 0.5, AST 26 D, ALT 34 D, Alkaline Phosphatase 118, Total Protein 6.4, Albumin 3.7 D, Globulin 2.7, Albumin/Globulin Ratio 1.4 I & O for Last 24 hours: Intake & Output 02/16/25 02/17/25 02/18/25 02/19/25 23:59 23:59 23:59 23:59 Intake Total 1640 / 1640 1470 / 1590 120 / 120 Output Total 600 / 600 2700 / 2700 2700 / 2700 650 / 650 Balance -600 / -600 -1060 / -1060 -1230 / -1110 -530 / -530 Weight 96.343 kg 96.343 kg 96.61 kg 95.1 kg Microbiology Reports for the Last 24 Hours: Microbiology 02/16/25 23:10 Anus CRE Surveillance Culture - Final Constitutional Constitutional: no acute distress, obese, chronically ill appearing and cooperative *Routine HEENT Exam Head: Present normocephalic Eye: Present EOMI and PERRL ENT: Present mucous membranes moist *Routine Neck Exam Neck: Present supple; Absent lymphadenopathy *Routine Respiratory Exam Respiratory: Present prolonged expiratory phase and wheezes; Absent rhonchi or crackles *Routine Cardiovascular Exam Cardiovascular: Present RRR *Routine Abdominal Exam Abdominal: Present soft and normoactive bowel sounds; Absent tenderness *Routine Rectal Exam Patient deferred: visual exam *Routine Exam Patient deferred: external exam *Routine Extremities Exam Extremities: Absent cyanosis, clubbing or edema *Routine Skin Exam Skin: Present warm; Absent rash *Routine Neurological Exam Neurological: Present alert, oriented X3 and moving all extremities; Absent altered mental status Results Data Completed and Pending Labs on day of discharge: Labs from last 24 hours 02/19/25 02/19/25 02/18/25 06:20 01:30 20:17 WBC 10.8 RBC 3.40 L Hgb 9.7 L Hct 31.1 L MCV 91.5 MCH 28.5 MCHC 31.2 L RDW 19.5 H Plt Count 324 MPV 10.3 Neut % (Auto) 64.7 Lymph % (Auto) 25.4 [place] % (Auto) 5.4 Eos % (Auto) 3.8 Baso % (Auto) 0.3 Neut # (Auto) 7.0 Lymph # (Auto) 2.8 [place] # (Auto) 0.6 Eos # (Auto) 0.4 Baso # (Auto) 0.0 VBG pH VBG pCO2 VBG pO2 VBG HCO3 VBG Total CO2 VBG O2 Saturation VBG Base Excess VBG Lactic Acid Sodium 135 L Potassium 4.1 Chloride 94 L Carbon Dioxide 37 H Anion Gap 8.1 BUN 31 H D Creatinine 1.10 H Estimated Creat Clear 78 Estimated GFR 50 L Est GFR ( Amer) 61 D Glucose 112 H POC Glucose 96 Hemoglobin A1c Lactate 1.9 Calcium 8.5 Magnesium 1.5 L D Total Bilirubin 0.5 AST 26 D ALT 34 D Alkaline Phosphatase 118 Total Protein 6.4 Albumin 3.7 D Globulin 2.7 Albumin/Globulin Ratio 1.4 02/18/25 02/18/25 02/18/25 18:55 16:38 11:22 WBC RBC Hgb Hct MCV MCH MCHC RDW Plt Count MPV Neut % (Auto) Lymph % (Auto) [place] % (Auto) Eos % (Auto) Baso % (Auto) Neut # (Auto) Lymph # (Auto) [place] # (Auto) Eos # (Auto) Baso # (Auto) VBG pH 7.32 VBG pCO2 58.2 H VBG pO2 32.4 VBG HCO3 29.2 VBG Total CO2 31.0 H VBG O2 Saturation 52.1 VBG Base Excess 3.0 H VBG Lactic Acid 2.6 H Sodium Potassium Chloride Carbon Dioxide Anion Gap BUN Creatinine Estimated Creat Clear Estimated GFR Est GFR ( Amer) Glucose POC Glucose 101 132 H Hemoglobin A1c Lactate Calcium Magnesium Total Bilirubin AST ALT Alkaline Phosphatase Total Protein Albumin Globulin Albumin/Globulin Ratio 02/18/25 05:34 WBC RBC Hgb Hct MCV MCH MCHC RDW Plt Count MPV Neut % (Auto) Lymph % (Auto) [place] % (Auto) Eos % (Auto) Baso % (Auto) Neut # (Auto) Lymph # (Auto) [place] # (Auto) Eos # (Auto) Baso # (Auto) VBG pH VBG pCO2 VBG pO2 VBG HCO3 VBG Total CO2 VBG O2 Saturation VBG Base Excess VBG Lactic Acid Sodium Potassium Chloride Carbon Dioxide Anion Gap BUN Creatinine Estimated Creat Clear Estimated GFR Est GFR ( Amer) Glucose POC Glucose Hemoglobin A1c 6.2 H Lactate Calcium Magnesium Total Bilirubin AST ALT Alkaline Phosphatase Total Protein Albumin Globulin Albumin/Globulin Ratio DS: Diagnosis Discharge Diagnosis (1) Atrial fibrillation with rapid ventricular response: Status: Acute Code(s): I48.91 - Unspecified atrial fibrillation (2) Acute exacerbation of CHF (congestive heart failure): Status: Acute Code(s): I50.9 - Heart failure, unspecified Qualifiers: Heart failure type: unspecified Qualified Code(s): I50.9 - Heart failure, unspecified (3) Acute on chronic respiratory failure with hypoxia and hypercapnia: Status: Acute Code(s): J96.21 - Acute and chronic respiratory failure with hypoxia; J96.22 - Acute and chronic respiratory failure with hypercapnia (4) Bilateral pleural effusion: Status: Acute Code(s): J90 - Pleural effusion, not elsewhere classified (5) Hypomagnesemia: Status: Acute Code(s): E83.42 - Hypomagnesemia (6) Hypothyroidism: Status: Acute Code(s): E03.9 - Hypothyroidism, unspecified Qualifiers: Hypothyroidism type: unspecified Qualified Code(s): E03.9 - Hypothyroidism, unspecified (7) Pulmonary nodules: Status: Acute Code(s): R91.8 - Other nonspecific abnormal finding of lung field (8) Chronic pancreatitis: Status: Acute Code(s): K86.1 - Other chronic pancreatitis Qualifiers: Pancreatitis type: unspecified pancreatitis type Qualified Code(s): K86.1 - Other chronic pancreatitis (9) Low back pain: Status: Acute Code(s): M54.50 - Low back pain, unspecified Qualifiers: Back pain laterality: right Chronicity: chronic Sciatica laterality: sciatica of right side Sciatica presence: with sciatica Qualified Code(s): M54.41 - Lumbago with sciatica, right side; G89.29 - Other chronic pain (10) Morbid obesity: Status: Chronic Code(s): E66.01 - Morbid (severe) obesity due to excess calories Meds Home Medications and Allergies Home Medications ?Medication ?Instructions ?Recorded ?Confirmed ?Type trazodone 100 mg tablet 100 mg PO HS 08/22/24 02/17/25 History duloxetine 60 mg capsule,delayed 60 mg PO BID 90 days #180 caps 09/23/24 02/17/25 Rx release potassium chloride 10 mEq 10 meq PO DAILY #90 tabs 09/23/24 02/17/25 Rx tablet,extended release magnesium oxide 400 mg PO BID #180 tabs 10/15/24 02/17/25 Rx metformin 1,000 mg tablet 1,000 mg PO BIDWMEAL #60 tabs 11/10/24 02/17/25 Rx nitroglycerin 0.4 mg sublingual 0.4 mg sublingual Q5MINP PRN chest 11/19/24 02/17/25 Rx tablet pain #10 tabs ranolazine 500 mg tablet,extended 500 mg PO BID 30 days #60 tabs 11/19/24 02/17/25 Rx release,12 hr gabapentin 600 mg tablet 600 mg PO BID #60 tabs 12/16/24 02/17/25 Rx ropinirole 0.25 mg tablet 0.25 mg PO HS #30 tabs 12/16/24 02/17/25 Rx montelukast 10 mg tablet 10 mg PO HS #30 tabs 01/07/25 02/17/25 Rx ferrous sulfate 325 mg (65 mg 325 mg PO BID #60 tabs 01/20/25 02/17/25 Rx iron) tablet atorvastatin 40 mg tablet 40 mg PO HS #90 tabs 02/07/25 02/17/25 Rx levothyroxine 100 mcg tablet 100 mcg PO DAILYDM #90 tabs 02/15/25 02/17/25 Rx albuterol sulfate 2.5 mg/3 mL 2.5 mg (3 mL) inhalation Q6H #180 02/16/25 02/17/25 Rx (0.083 %) solution for nebulization mL alprazolam 1 mg tablet 1 mg PO TIDP PRN Anxiety 02/17/25 02/17/25 History polyethylene glycol 3350 17 17 g PO DAILY PRN Constipation 02/17/25 02/17/25 History gram/dose oral powder (Miralax) quetiapine 50 mg tablet 50 mg PO HS 02/17/25 02/17/25 History aspirin 81 mg tablet,delayed 81 mg PO DAILY 30 days #30 tabs 02/19/25 Rx release furosemide 20 mg tablet 40 mg (2 x 20 mg) PO DAILY 30 days 02/19/25 Rx #60 tabs metoprolol succinate 100 mg 100 mg PO DAILY 30 days #30 tabs 02/19/25 Rx tablet,extended release 24 hr oxycodone-acetaminophen 5 mg-325 1 tab PO Q6HP PRN Severe Pain 02/19/25 Rx mg tablet (7-10) 2 days #5 tabs pantoprazole 40 mg tablet,delayed 40 mg PO HS 30 days #30 tabs 02/19/25 Rx release rivaroxaban 15 mg tablet (Xarelto) 15 mg PO QPMWITHMEAL 30 days #30 02/19/25 Rx tabs New Prescriptions to Start Prescriptions: aspirin Glo,Chandler furosemide Glo,Chandler metoprolol succinate Glo,Chandler oxycodone-acetaminophen Glo,Chandler pantoprazole Glo,Chandler rivaroxaban [Xarelto] Chandler Cody Allergies Allergy/AdvReac Type Severity Reaction Status Date / Time codeine (CODEINE) Allergy Intermediate N/V Verified 02/16/25 23:55 ketorolac (KETOROLAC) Allergy Intermediate Hives Verified 02/16/25 23:55 meperidine (MEPERIDINE) Allergy Intermediate Hives Verified 02/16/25 23:55 tramadol (TRAMADOL) Allergy Intermediate Hives Verified 02/16/25 23:55 verapamil Allergy Mild Unknown Verified 02/16/25 23:55 allergy reaction ciprofloxacin AdvReac Severe Interacts Verified 02/16/25 23:55 with cymbalta Discharge Plan Disposition Patient Disposition: Home, Self-Care Condition: Fair Follow up Plan Follow up with: Charlotte Aleman MD [Physician] - Enter time for follow up Juan C Colón MD [Primary Care Provider] - 02/28/25 8:30 am Prescriptions/Medication Reconciliation: New metoprolol succinate 100 mg Tablet Extended Release 24 Hr 100 mg PO DAILY 30 Days Qty: 30 0RF oxycodone-acetaminophen 5-325 mg Tablet 1 tab PO Q6HP PRN (Reason: Severe Pain (7-10)) 2 Days Qty: 5 0RF Xarelto 15 mg Tablet 15 mg PO QPMWITHMEAL 30 Days Qty: 30 0RF aspirin 81 mg Tablet,Delayed Release (Dr/Ec) 81 mg PO DAILY 30 Days Qty: 30 0RF pantoprazole 40 mg Tablet,Delayed Release (Dr/Ec) 40 mg PO HS 30 Days Qty: 30 0RF Continued duloxetine 60 mg capsule,delayed release(DR/EC) 60 mg PO BID 90 Days Qty: 180 1RF potassium chloride 10 mEq tablet extended release 10 meq PO DAILY Qty: 90 1RF magnesium oxide 400 mg magnesium tablet 400 mg PO BID Qty: 180 3RF metformin 1,000 mg tablet 1,000 mg PO BIDWMEAL Qty: 60 2RF nitroglycerin 0.4 mg tablet, sublingual 0.4 mg sublingual Q5MINP PRN (Reason: chest pain) Qty: 10 5RF Rx Instructions: do not exceed 3 doses per episode ranolazine 500 mg tablet extended release 12 hr 500 mg PO BID 30 Days Qty: 60 10RF montelukast 10 mg tablet 10 mg PO HS Qty: 30 2RF ferrous sulfate 325 mg (65 mg iron) tablet 325 mg PO BID Qty: 60 0RF atorvastatin 40 mg tablet 40 mg PO HS Qty: 90 3RF levothyroxine 100 mcg tablet 100 mcg PO DAILYDM Qty: 90 1RF albuterol sulfate 2.5 mg /3 mL (0.083 %) solution for nebulization 2.5 mg inhalation Q6H Qty: 180 12RF trazodone 100 mg tablet 100 mg PO HS gabapentin 600 mg tablet 600 mg PO BID Qty: 60 5RF ropinirole 0.25 mg tablet 0.25 mg PO HS Qty: 30 5RF polyethylene glycol 3350 [Miralax] 17 gram/dose powder 17 g PO DAILY PRN (Reason: Constipation) quetiapine 50 mg tablet 50 mg PO HS alprazolam 1 mg tablet 1 mg PO TIDP PRN (Reason: Anxiety) Patient Comments: take 1 tablet(1 mg) orally three times a day as needed As Needed for Anxiety; will need office visit Changed furosemide 20 mg tablet 40 mg PO DAILY 30 Days Qty: 60 1RF Discontinued omeprazole 40 mg capsule,delayed release(DR/EC) 40 mg PO DAILY Brilinta 90 mg tablet 90 mg PO BID metoprolol succinate 50 mg tablet extended release 24 hr 50 mg PO DAILY Rx Instructions: TAKE 1 TABLET(50 mg) orally daily for High Blood Pressure Problem Reconciliation Problems Reviewed?: Yes Patient Discharge Instructions ACTIVITY: Continue current activity DIET: continue same diet Patient Instructions: DI for Heart Failure, DI for Hypomagnesemia Print Language: Uzbek Providers Primary Care Provider: Juan C Colón Admit Provider: Chandler Cody Attending Provider: Chandler Cody
[2025-02-19 10:46] VITALS: O2SAT 81
[2025-02-21 05:23] LABS: POC Glucose,Bedside 124 (70-110)
--- NOTE | 2025-02-21 10:51 | SW/DCPLANNER ---
Spoke with patient on the phone. Patient stated that she isnt doing well. Patient stated that she is aware of her appointment but she has felt bad to call and schedule her pulmology appointment. Patient stated that she is going today to get her new medicine picked up. Patient stated that she has no concern or questions at this time. Raymond Yougner
== END 2025-02-19 13:12 | disposition home or self-care (01) ==
LOC: ER 21:22 → ICU 02-17 06:22 → 2ND 02-18 14:21
PROVIDERS: Internal Medicine Pulmonary Disease; Nurse Practitioner Family; Physician Assistant; Admitting Provider Internal Medicine Adolescent Medicine; Emergency Provider Emergency Medicine; PCP Family Medicine; Visit Provider Internal Medicine Adolescent Medicine
DX: I50.33 Acute on chronic diastolic (congestive) heart failure (principal); J96.22 Acute and chronic respiratory failure with hypercapnia; I48.20 Chronic atrial fibrillation, unspecified; I25.119 Atherosclerotic heart disease of native coronary artery with unspecified angina pectoris; J96.21 Acute and chronic respiratory failure with hypoxia; J84.10 Pulmonary fibrosis, unspecified; J44.1 Chronic obstructive pulmonary disease with (acute) exacerbation; J90 Pleural effusion, not elsewhere classified; E11.69 Type 2 diabetes mellitus with other specified complication; E83.42 Hypomagnesemia; E03.9 Hypothyroidism, unspecified; K86.1 Other chronic pancreatitis; M54.41 Lumbago with sciatica, right side; G89.29 Other chronic pain; K62.5 Hemorrhage of anus and rectum; F32.A Depression, unspecified; E66.01 Morbid (severe) obesity due to excess calories; T46.1X6A Underdosing of calcium-channel blockers, initial encounter; Z91.148 Patient's other noncompliance with medication regimen for other reason; E78.5 Hyperlipidemia, unspecified; F41.9 Anxiety disorder, unspecified; J98.11 Atelectasis; G47.33 Obstructive sleep apnea (adult) (pediatric); Z68.33 Body mass index [BMI] 33.0-33.9, adult; R26.9 Unspecified abnormalities of gait and mobility; F17.290 Nicotine dependence, other tobacco product, uncomplicated; R91.8 Other nonspecific abnormal finding of lung field; F12.90 Cannabis use, unspecified, uncomplicated; G25.81 Restless legs syndrome; F14.10 Cocaine abuse, uncomplicated; Z91.198 Patient's noncompliance with other medical treatment and regimen for other reason; Z79.899 Other long term (current) drug therapy; Z79.84 Long term (current) use of oral hypoglycemic drugs; Z79.82 Long term (current) use of aspirin; Z79.891 Long term (current) use of opiate analgesic; Z79.01 Long term (current) use of anticoagulants; Z88.6 Allergy status to analgesic agent; Z88.1 Allergy status to other antibiotic agents; Z88.5 Allergy status to narcotic agent; Z71.6 Tobacco abuse counseling; Z71.88 Encounter for counseling for socioeconomic factors; Z90.49 Acquired absence of other specified parts of digestive tract; Z86.73 Personal history of transient ischemic attack (TIA), and cerebral infarction without residual deficits; Z90.79 Acquired absence of other genital organ(s); Z95.5 Presence of coronary angioplasty implant and graft; Z80.9 Family history of malignant neoplasm, unspecified; Z83.3 Family history of diabetes mellitus; Z59.11 Inadequate housing environmental temperature; Z59.19 Other inadequate housing; Z91.81 History of falling; Z95.828 Presence of other vascular implants and grafts; Z79.890 Hormone replacement therapy; Z99.81 Dependence on supplemental oxygen
CPT/HCPCS: 71045; 71275; 80053; 80061; 81001; 82803; 82962; 83036; 83605; 83690; 83735; 83880; 84145; 84484; 85025; 87081; 87633; 93005; 93306; 94640; 94660; 94761; 99291; G0378; J1100; J1171; J1642; J1650; J1940; J2405; J3475; J7620; Q9967; S0028

== ENCOUNTER 2025-05-25 21:23 | Observation (INO) | payer MEDICARE, MEDICAID, SELFPAY ==
--- NOTE | 2025-05-25 20:51 | CT_ITS ---
PROCEDURE INFORMATION: Exam: CTA Abdomen and Pelvis With Contrast Exam date and time: 05/25/2025 9:14 PM Age: 64 years old Clinical indication: Other: Brbpr TECHNIQUE: Imaging protocol: Computed tomographic angiography of the abdomen and pelvis with contrast. Exam focused on the arteries. 3D rendering (Not supervised by radiologist): MIP and/or 3D reconstructed images were created by the technologist. Radiation optimization: All CT scans at this facility use at least one of these dose optimization techniques: automated exposure control; mA and/or kV adjustment per patient size (includes targeted exams where dose is matched to clinical indication); or iterative reconstruction. Contrast material: ISOVUE; Contrast volume: 80 ml; Contrast route: INTRAVENOUS (IV); COMPARISON: CT ANGIO ABDOMEN PELVIS 10/31/2024 3:12 PM FINDINGS: Tubes, catheters and devices: Implanted neural stimulation device with leads extending to T12. Aorta: Moderate calcific atherosclerotic disease of the abdominal aorta without aneurysmal dilatation is present. Celiac trunk and mesenteric arteries: No occlusion or significant stenosis. Renal arteries: No occlusion or significant stenosis. Right iliac arteries: No occlusion or significant stenosis. Left iliac arteries: No occlusion or significant stenosis. Liver: There is diffuse hypoattenuation of the liver compatible with moderate hepatic steatosis. Gallbladder and biliary ducts: There are surgical clips within the gallbladder fossa. Pancreas: Unremarkable. No mass. No ductal dilation. Spleen: Multiple benign-appearing calcific densities of the spleen. Adrenal glands: Unremarkable. No mass. Kidneys and ureters: Right renal Bosniak 1 cystic lesion that is homogeneous and fluid density (-9-20 HU), no septations or calcifications, having enamorado smooth and thin. Measurement is 3.1 Stomach and bowel: Diverticula are scattered throughout the colon without inflammatory changes. Appendix: No evidence of appendicitis. Intraperitoneal space: Unremarkable. No free air. No significant fluid collection. Lymph nodes: Unremarkable. No enlarged lymph nodes. Urinary bladder: Unremarkable. No mass. Reproductive: The uterus appears surgically absent. Bones/joints: Two screw fusion of the right SI joint. Moderate osteophytosis and degenerative changes involve the bilateral femoroacetabular joints. Moderate loss of intervertebral disc space with degenerative changes involving lower thoracic and lumbar spine. Soft tissues: Mucosal enhancement of the rectum and perianal mucosa suggesting hemorrhoids. Other findings: cm. No follow-up recommended. IMPRESSION: Mucosal enhancement of the rectum and anal mucosa suggesting hemorrhoids.
[2025-05-25 20:53] VITALS: BP 110/87; PULSE 104; RESP 20; TEMP 37.2; O2SAT 94; BMI 36.9
[2025-05-25 21:16] LABS: Basophils % 0.4 % (0.1-2.0); Eosinophils # 0.2 Kmm3 (0.0-0.4); Eosinophils % 2.4 % (0.1-12.0); Hematocrit 37.7 % (37.0-47.0); Hemoglobin 11.8 g/dL (12.2-16.2); Immature Granulocytes # 0.03 10^3uL; Immature Granulocytes % 0.3 %; Lymphocytes # 3.2 K/mm3 (0.7-4.5); Lymphocytes % 32.8 % (10-50); Mean Corpuscular HGB Conc 31.3 g/dL (31.8-35.4); Mean Corpuscular Hemoglobin 29.1 pg (27.0-31.2); Mean Corpuscular Volume 93.1 fl (81-99); Mean Platelet Volume 11.1 fl (7.4-10.4); Monocytes # 0.6 K/mm3 (0.1-1.0); Monocytes % 5.8 % (1.7-9.3); Neutrophils # 5.6 K/mm3 (1.8-7.8); Neutrophils % 58.3 % (37.0-80.0); Nucleated Red Blood Cells # 0 10^3/uL; Nucleated Red Blood Cells % 0 %; Platelet Count 305 K/mm3 (142-424); Red Blood Count 4.05 M/mm3 (4.20-5.40); Red Cell Distribution Width 15.6 % (11.5-17.5); Red Cell Distribution Width-SD 52.5 fL; White Blood Count 9.6 K/mm3 (4.8-10.8)
[2025-05-25 21:21] LABS: Lipase 115 U/L (23-300)
[2025-05-25 21:23] LABS: Alanine Aminotransferase 12 U/L (12-78); Albumin Level 4.3 g/dl (3.5-5.0); Albumin/Globulin Ratio 1.4 (1.1-1.8); Alkaline Phosphatase 97 U/L (38-126); Anion Gap 13.4 mEq/L (5-15); Aspartate Amino Transferase 18 U/L (14-36); Bilirubin,Total 0.6 mg/dl (0.2-1.3); Blood Urea Nitrogen 18 mg/dl (7-17); Calcium 9.4 mg/dl (8.4-10.2); Carbon Dioxide 30 mmol/L (22.0-30.0); Chloride 100 mmol/L (98-107); Creatinine Clearance Estimated 82 mL/min (50-200); Estimated Glomerular Filt Rate 56 ml/min (>60); GFR (African American) 68 ML/MIN (>60); Glucose 129 mg/dl (74-100); Lactic Acid 1.3 mmol/L (0.7-2.1); Potassium 4.4 mmoL/L (3.5-5.1); Sodium 139 mmol/L (136-145); Total Protein,Serum 7.3 g/dl (6.3-8.2)
[2025-05-25 21:24] LABS: Activated Partial Thrombo Time 25.3 seconds (22.8-30.6); INR 1.09 (0.9-1.1)
[2025-05-25] MEDS: IOPAMIDOL-370 (76%);100ML BOTTLE 80 ML IV (21:24)
[2025-05-25] MEDS: 0.9 % SODIUM CHLORIDE 50 ML VIAL IV (21:24)
[2025-05-25] MEDS: SODIUM CHLORIDE 0.9% 10ML SYR (RAD ONLY) 10 ML IV (21:24)
--- OUTSIDE RECORDS SUMMARY | 2025-05-25 21:31 | XMS_ITS | Patient Health Record ---
Author Organization [facility] [place] Address [address] [place] [address] Care Team Providers Care Group Teacher Name Role Phone ANGELINA BOWIE Primary Care Provider [phone] Reason For Referral No Information Plan Of Treatment No Information
--- OUTSIDE RECORDS SUMMARY | 2025-05-25 21:31 | XMS_ITS | Clinical Summary ---
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 Name Role Phone Sami Rasheed MD Unavailable [ ] Conditions or Problems Problem Name Problem Code Onset Date Status Entry Date Provider Comment Standard Description Annotate Chronic mastoiditis, bilateral 64079814 (SNOMED CT) Active Courtney Gordon Chronic mastoiditis Acute mastoiditis, bilateral, without complications H70.003 (ICD-10-CM ) Active Courtney Gordon Acute mastoiditis without complications , bilateral Benign Essential Hypertension [id number] (SNOMED CT) Active Courtney Gordon Benign hypertension Medications Medication Instructions Start Date Stop Date Generic Name ND Provider MEDROL 4 MG TBPK tapering METHYLPREDNISOLONE [id number] Jorge Mckeon ACIDOPHILUS CAPS LACTOBACILLUS [id number] Jorge Mckeon CEFDINIR 300 MG CAPS twice daily CEFDINIR [id number] Jorge Mckeon PERCOCET 5-325 MG TABS 1-2 tablets every 4 hours as needed OXYCODONE-ACETAMINOP HEN [id number] Jorge Mckeon Medications Administered No information available. Allergies, Adverse Reactions, Alerts Allergy Name Reaction Description Start Date Severity Statu s Provider KETOROLAC TROMETHAMINE Moderate Active Jorge S TRAMADOL HCL Moderate Active Luigi s S MEPERIDINE HCL Moderate Active Maria Ines les S CODEINE SULFATE Moderate Active Sandy rles S CIPRO Moderate Active Jorge S Results No information available. Plan of Care No information available. Procedures No information available. Vital Signs No information available. Immunizations No information available. Advance Directives No information available.
--- OUTSIDE RECORDS SUMMARY | 2025-05-25 21:31 | XMS_ITS | Clinical Summary ---
Author Organization [facility] Address [address] [place] [address] Phone Care Team Providers Care Site Auditor Name Role Phone Unavailable Primary Care Provider Unavailabl e Allergies Active Allergy Reactions Criticality Noted Date Comments Codeine 05/09/2010 Meperidine Medications oxycodone (OXY-IR) 15 mg immediate release tablet Take 15 mg by mouth every 4 hours as needed for Pain. Active cefTRIAXone (ROCEPHIN) 250 mg injection Inject 250 mg into the muscle. X1 250 mg 0 08/12/2011 Active promethazine (PHENERGAN) 25 mg tablet Take 1 Tab by mouth 4 times daily as needed for Nausea. 30 Tab 5 08/16/2011 Active citalopram (CELEXA) 10 mg tabletIndications :Chronic pancreatitis (HCC),Abdominal pain, other specified site,Anxiety state, unspecified Take 1 Tab by mouth daily. 30 Tab 2 10/29/2011 Active trazodone (DESYREL) 150 mg tabletIndications :Chronic pancreatitis (HCC),Anxiety state, unspecified Take 1 Tab by mouth nightly. 30 Tab 2 10/29/2011 Active Active Problems Problem Noted Date Diagnosed Date Unspecified essential hypertension Chronic airway obstruction, not elsewhere classi fied Anxiety state, unspecified Insomnia, unspecified Esophageal reflux Clubbing of fingers Lung nodules Immunizations Immunization Administration Dates Next Due Influenza Vaccine, Unspecified Formulation 09/16 Surgical History Surgery Date Site/Laterality Comments HYSTERECTOMY 1992 PANCREAS SURGERY stents placed x8 CHOLECYSTECTOMY TUNNELED VENOUS PORT PLACEMENT APPENDECTOMY TONSILLECTOMY Medical History Medical History Date Comments Hypertension Depression Pancreatitis Chronic back pain Anxiety Family History Medical History Relation Name Comments Cancer Mother breast Cancer Paternal Grandmother breast Relation Name Status Comments Mother Paternal Grandmother Social History Tobacco Use Types Packs/Day Years Used Date Smoking Tobacco: Every Day Cigarettes Smokeless Tobacco: Never Alcohol Use Standard Drinks/Week Comments No 0 (1 standard drink = 0.6 oz pur e alcohol) Comments No Sex and Gender Information Value Date Recorded Sex Assigned at Not on file Legal Sex Female 10:04 AM EDT Gender Identity Not on file Sexual Orientation Not on file Obstetrics History Last Filed Vital Signs Vital Sign Reading Time Taken Comments Blood Pressure 142/80 08/12/2011 11:51 AM EDT Pulse 60 08/12/2011 11:51 AM EDT Temperature 37.1 C (98.7 F) 08/12/2011 11:51 AM EDT Respiratory Rate 18 08/06/2011 12:2 4 PM EDT Oxygen Saturation 90% 08/06/2011 12: 24 PM EDT Inhaled Oxygen Concentration - - Weight 100.4 kg (221 lb 6.4 oz) 011 11:51 AM EDT Height 165.1 cm (5' 5 ) 08/02/2011 6:07 PM EDT Body Mass Index 36.84 08/02/2011 6:07 PM EDT Plan of Treatment Health Maintenance Due Date Last Done Comments Wellness Exam Medicare 1963 DTaP/TDaP/Td (1 - Tdap) 1979 Pneumococcal Vaccine 50+ (1 of 2 - PCV) 1979 Cervical Cancer Screening 1981 Pap Smear 1981 HPV/Pap Cotest 1990 Breast Cancer Screening 2000 Cologuard 2005 Colon Cancer Screening 2005 Colonoscopy 2005 FIT 2005 Sigmoidoscopy 2005 Virtual Colonography 2005 Zoster (1 of 2) 2010 RSV or 60+ (1 - Ris k 60-74 years 1-dose series) 2020 COVID-19 Vaccine (1 - 2023-2 5 season) 2024 Influenza Vaccine (Season Ended) 2025 09/16/20 08 Hepatitis C Screening Completed 08/12/2011 Hepatitis B Vaccine Aged Out No longe r eligible based on patient's age to complete this topic Meningococcal B Vaccine Aged Out No l onger eligible based on patient's age to complete this topic Procedures Procedure Name Priority Date/Time Associated Diagnosis Comments ACUTE HEPATITIS PANEL Routine 08/12/2011 12:19 PM EDT Possible exposure to STD from Last 3 Months or Most Recently Relevant to Health Maintenance Results * ACUTE HEPATITIS PANEL (08/12/2011 12:19 PM EDT) Hep Bs Ag Negative Negative [facility] Hep B Core IgM Negative Negative [facility] Hep A IgM Negative Negative [facility] Hep C Ab Negative Negative [facility] Blood specimen (specimen) UPPER LIMB STRUCTURE / Unknown 08/12/2011 12:19 PM EDT 08/12/2011 9:31 PM EDT us Juan C Mcmanus MD CHEMISTRY ORDERABLES Edit ed [facility] [address] [place] [address] from Last 3 Months or Most Recently Relevant to Health Maintenance Insurance MEDICARE [place] PART A AND B MEDICAID [place] Member Subscriber Plan / Payer (Ef fective 2011-Present) Name:Linda Arteaga Relation to Subscriber:Self Name:Linda Arteaga Payer ID:Not on file Group ID:Not on file Type:Not on file Address: [address] [place] [id number] [place] [address] MED[id number]
--- OUTSIDE RECORDS SUMMARY | 2025-05-25 21:31 | XMS_ITS ---
Author Organization Unknown [facility]REATMENT PLAN [facility] Start Date Provider Encounter for Check-up [id number] [facility]
--- OUTSIDE RECORDS SUMMARY | 2025-05-25 21:31 | XMS_ITS | Clinical Summary ---
Author Organization Healthcare Address [address] [place] [address] Care Team Providers Care Pharmaceutical Specialty Representative Name Role Phone Oskar Donovan MD Primary Care Provider [phone] Medications No known medications Active Problems No known active problems Immunizations Immunization Administration Dates Next Due Influenza, injectable, quadrivalent, preservativ e free 09/23/2018 Family History Medical History Relation Name Comments Asthma Father Diabetes Father Heart disease Father Hypercholesterolemia Father Cervical cancer Mother Osteoporosis Mother Alcohol abuse Other 1 Cancer Other 2 Hypertension Other 3 Relation Name Status Comments Father Mother Other 1 Other 2 Other 3 Social History Tobacco Use Types Packs/Day Years Used Date Smoking Tobacco: Every Day Alcohol Use Standard Drinks/Week Comments No 0 (1 standard drink = 0.6 oz pure alcohol) Alcoholic Drinks/day: Never Drank Alcohol Comments Unknown Sex and Gender Information Value Date Recorded Sex Assigned at Not on file Legal Sex Female 7:44 PM EDT Gender Identity Not on file Sexual Orientation Not on file Last Filed Vital Signs Vital Sign Reading Time Taken Comments Blood Pressure 134/65 04/11/2022 8:05 PM EDT Pulse 76 04/11/2022 8:05 PM EDT Temperature 37 C (98.6 F) 04/11/2022 8:05 PM EDT Respiratory Rate 18 04/11/2022 8:05 PM EDT Oxygen Saturation 98% 04/11/2022 8:05 PM EDT Inhaled Oxygen Concentration - - Weight 105 kg (231 lb 7.7 oz) 04/11/2022 6:41 PM EDT Height 165.1 cm (5' 5 ) 12/14/2019 11:49 AM EST Body Mass Index 38.52 12/14/2019 11:49 AM EST Plan of Treatment Health Maintenance Due Date Last Done Comments [facility]-Depression Screening 1960 [facility]-Medicare Annual Wellness (AWV) 1960 [facility]-Infant/Child/Adol SDOH Screenings 1960 [facility]- SDOH Screenings 1978 [facility]-Adult SDOH Screenings 1978 [facility]-DTaP,Tdap,and Td Vaccines (1 - Tdap) 1979 CT Colonography 2005 Colonoscopy 2005 FIT-DNA 2005 FIT 2005 Sigmoidoscopy 2005 [facility]-Breast Cancer Screening 2010 [facility]-Zoster Vaccines (1 of 2) 2010 [facility]-Pneumococcal Vaccine: 50+ Years (2 of 2 - PCV) 09/15/2016 09/15/2015 FOBT 07/29/2021 07/29/2020, 07/24/2020 [facility]-Colorectal Cancer Screening 07/29/2021 [id number] Vaccine ( - season) 2024 10/09/2021, 02/02/2021 [facility]-Influenza Vaccine (Season Ended) 2025 08/18/2020, 09/23/2018, 09/15/2015, Additional history exists [facility]-RSV Vaccine: 60+ Years or (1 - 1-dose 75+ series) 2035 [facility]-HIV Screening Completed 04/11/2022, 01/02/2021 [facility]-Hepatitis C Screening Completed 04/11/2022 HPV Vaccines Aged Out No longer eligi ble based on patient's age to complete this topic [facility]-HIB Vaccines Aged Out No longer e ligible based on patient's age to complete this topic [facility]-Hepatitis A Vaccines Aged Out No longer eligible based on patient's age to complete this topic [facility]-IPV Vaccines Aged Out No longer e ligible based on patient's age to complete this topic [facility]-Rotavirus Vaccines Aged Out No lo nger eligible based on patient's age to complete this topic Procedures Procedure Name Priority Date/Time Associated Diagnosis Comments HEPATITIS C ANTIBODY - ED W/REFLEX TO HCV QUANT PCR STAT 04/11/2022 6:36 PM EDT HIV 1/2 ANTIBODY/ANTIGEN SCREEN WITH REFLEX TO HIV I/II DIFFERENTIATION STAT 04/11/2022 6:36 PM EDT from Last 3 Months or Most Recently Relevant to Health Maintenance Results * HIV 1 & 2 Antibody/Antigen Screen (04/11/2022 6:36 PM EDT) HIV 1 & 2 Antibody/Anti gen Screen Nonreactive Nonreactive 04/11/2022 9:55 PM EDT [facility] Blood Venous blood specimen / Unknown Venipuncture / Unknown 04/11/2022 6:36 PM EDT 04/11/2022 6:43 PM EDT Leland Miller MD LAB BLOOD ORDERABLES Final Resul t Performing Organization Address City/[facility] Co de Phone Number [facility] [address] [place] [address] * [place] Hepatitis C Antibody (04/11/2022 6:36 PM EDT) Hepatitis C Antibody Negative Negative 04/11/2022 9:56 PM EDT [facility] Blood Venous blood specimen / Unknown Venipuncture / Unknown 04/11/2022 6:36 PM EDT 04/11/2022 6:43 PM EDT Leland Miller MD LAB BLOOD ORDERABLES Final Resul t Performing Organization Address City/[facility] Co de Phone Number [facility] [address] [place] [address] from Last 3 Months or Most Recently Relevant to Health Maintenance Insurance [facility] MEDICARE Care Teams Pharmaceutical Specialty Representative Relationship Specialty Start Date End Date Oskar Donovan MD [address] [place] [address] PCP - General 04/13/21
--- OUTSIDE RECORDS SUMMARY | 2025-05-25 21:31 | XMS_ITS | Continuity of Care Document ---
Author Organization [facility] Address [address] [address] Care Team Providers Care Promotions Producer Name Role Phone RADHA GALLO Referring Provider Assessment No assessment recorded. Plan of Treatment Reminders Order Date Submit Date Provider Last Modified By Organization Details Last Modified Time Details Appointments MENTAL NEW 60 2024 10:00A M BRYNN CARLSON Not available Not available Not available Establish ed Visit 30 min 2024 02:00P M CECIL WEEKS Not available Not available Not available Lab TSH + free T4, serum [address] (Laboratory), [address] [place], [address], 05/12/2025 08:04:34 lipid panel, serum 2024 025 [facility] (Laboratory), [place], [address], 05/05/2025 17:25:45 iron + TIBC + ferritin, serum [address] (Laboratory), [place], [address], 05/12/2025 08:04:35 CBC w/ auto diff 2024 025 [facility] (Laboratory), [address] [place], [address], 05/05/2025 17:09:33 vitamin B12 + folate, serum or blood [address] (Laboratory), [address] [place], [address], 05/12/2025 08:04:35 hemoglobi n A1C/hemog lobin total, QN, blood [address] (Laboratory), [address] [place], [address], 05/12/2025 08:04:34 amylase + lipase, serum [address] (Laboratory), [address] [place], [address], 05/12/2025 08:04:34 CMP, serum or plasma 2024 025 [facility] (Laboratory), [address] [place], [address], 05/05/2025 17:25:43 vitamin D, 25-hydrox y, total, serum [address] [place] [address] (Laboratory), [address] [place], [address], 05/12/2025 08:04:34 Referral gastroent erologist referral 2024 025 MELISSA Redd MD, [address], [place], [address], 05/10/2025 08:34:37 behaviora [facility] referral [address] [place] [address] [facility], [address] [place], [address], 05/13/2025 08:31:15 Procedures None recorded. Surgeries None recorded. Imaging CT, abdomen + pelvis, w/ contrast 2024 025 [id number] [facility] (Scheduling), [address] [place], [address], 05/06/2025 08:54:22 LDCT, chest, for lung cancer screening 2024 025 [facility] (Scheduling), [address] [place], [address], 05/12/2025 08:04:25 Medication Orders None recorded. Patient TargetsNo targets recorded. Patient InstructionsNo instructions recorded. Reason for Referral Behavioral Health Referral f or Mixed anxiety and depressive disorder Referring Physician: Radha Gallo Family Medicine, Encounter Date: 05/05/2025 Microbiology Director Referral for Pancreas divisum Referring Physician: Radha Gallo [facility] Medicine, Encounter Date: 05/05/2025 Results Created Date Observation Date Name Description Value Unit Range Abnormal Flag Note LastModifiedBy Organization Detail LastModifiedTime 05/05/2005/05/2025 CT ABD/p [place] W IV and oral co [facility] [address] [place] [address] Phone: Fax: Name: ANDREW BEJARANO Exam Date: 05/05/20 : 1959 Age 64 years Gender : F Access ion: [id number] Physic melodie: RADHA YEH Facili ty: [facility] Facili ty HSV: Outpat ient Exam: CT ABD/PE LVIS W IV AND ORAL CO FINAL REPORT TECHNI QUE: null CLINIC AL HISTOR Y: Pain with bowel moveme nts / diarrh ea x1 day / hx pancre atitis / pain stimul ator / pelvis repair COMPAR CORNELIUS: null FINDIN GS: CT abdome n and pelvis with IV contra st. COMPAR CORNELIUS: CT abdome n and pelvis dated 5 at 20:03 EDT FINDIN GS: Partia lly visual ized lung bases are unrema rkable . Liver is enlarg ed with right lobe measur ing 19.2 cm. Likely hepati c steato sis. Cholec ystect jeannie. Spleni c granul omas presen t. Atroph ic pancre as. Normal adrena l glands . Symmet kristin renal enhanc ement. Right renal cystic lesion measur ing 2.8 cm, stable . No hydron ephros is. Append ix is not seen. No right lower quadra nt or perice alex inflam matory change s. Mild distal coloni c divert iculos is withou t eviden ce of divert iculit is. No bowel obstru ction. No mesent andres or retrop eriton eal lympha denopa thy. Modera te aortoi liac athero sclero tic vascul ar calcif icatio ns. Normal appear ance of the urinar y bladde r. No adnexa l mass. Small fat contai samira umbili alex hernia . Spinal stimul ator pump lead extend s throug h the lumbar and lower thorac ic spine. Fixati on hardwa re presen t within the sacroi liac joint on the right. Advanc ed degene rative change s of the right hip. No acute fractu re or suspic ious bone lesion identi fied. IMPRES CORINNE: IMPRES CORINNE: 1. No cause for patien t's sympto ms identi fied. No bowel obstru ction or eviden ce of divert iculit is. 2. Hepato megaly . Authisaias ticclaude d and Electr onical ly Signed by Forrest Randall MD on 2024 06:49: 00 PMEAST LINWOOD Dictat ed By: Forrest Randall Transc ribed By: Transc ribed On: 05/05/20 6:49 PM Electr onical ly signed by: Forrest Randall 05/05/20 Thank you for referr ing ANDREW BEJARANO to [facility]. Legall y win العلي by BARBARA Woo MD 05-05 18:49: 00 CC'ed Logic: Orderi ng Provid er: DENNY GARCIA CC Provid er: LEO Monroe ing Provid er: DENNY GARCIA Referr ing Provid er: DENNY GARCIA Admitt ing Provid er: DENNY [email or web address] [facility] (Radiology) [address] [place], [address], 05/06/2025 12:40:28 05/05/2005/05/2025 CT, abdom en + pelvi s, w/ contr ast No observ ation record ed. [facility] (Radiology) [address] [place], [address], 05/06/2025 12:41:26 05/05/20 25 05/05/2025 CT, abdom en + pelvi s, w/ contr ast No observ ation record ed. [facility] (Radiology) [address] [place], [address], 05/06/2025 12:41:26 Result Notes None recorded. Problems Name Problem SNOMED Code Status Onset Date Resolution Date Notes Provider Name and Address Organization Details Recorded Time Essential hypertension 59443431 Active 2024 Hussain Card null, [place] - [facility] [place] 15:08:24 Prediabetes 663731922 Active 2024 Hussain Card null, [place] [facility] [place] 15:08:43 Mixed anxiety and depressive disorder 471696295 Active 2024 Hussain Card null, [place] [facility] [place] 15:09:02 Hyperthyroidis m 82040574 Active 2024 Hussain Card null, [place] [facility] [place] [facility] [place] 15:09:26 Pancreas divisum 58255030 Active 2024 Hussain Card null, [place] - [facility] [place] & [place] 5 15:09:59 Problem Notes None recorded. Procedures Surgical History Date Name Laterality Status Provider Name and Address Organization Details Recorded Time Tubal Ligation completed Hussain Card [place] [facility] & [place] 05/05/2025 15:21:17 hysterectomy completed Hussain Card [place] [facility] & [place] 05/05/2025 15:21:24 insertion of infusion pump beneath skin completed Hussain LOPEZ [facility] & [place] 05/05/2025 15:22:02 placement of stent in coronary artery completed Hussain MOORE [facility] & [place] 05/05/2025 15:22:18 appendectomy completed Hussain MOORE [facility] & [place] 05/05/2025 15:22:36 cholecystectomy completed Hussain MOORE [facility] & [place] 05/05/2025 15:22:46 Imaging Results None recorded. Procedure Notes None recorded. Medical Equipment None Reported. Allergies Allergen ID Allergen Name Allergen Category Reaction Reaction Severity Criticality Documentation Date Start Date Code Code System Note Provider Name and Address Organization Details Recorded Time 150316 tramadol medicatio n Not available Not available Not available 05/05/2025 89275 RxNorm TERESA Barney [facility] & [place] 5 15:01:58 522160 Cipro medicatio n Not available Not available Not available 05/05/2025 97737 3 RxNorm TERESA Barney [facility] & [place] 5 15:02:09 908133 Demerol medicatio n Not available Not available Not available 05/05/2025 73216 1 RxNorm TERESA Barney [facility] & [place] 5 15:03:24 Medications Name Sig Start Date Stop Date Status Note LastModified by Organization Details LastModified Time amoxicillin 500 mg capsule Take one capsule by mouth three times a day until gone. 05/05 completed Not Available Not Available Not Available atorvastati n 40 mg tablet TAKE ONE TABLET BY MOUTH AT BEDTIME NIGHTLY active Not Available Not Available No t Available nystatin 100,000 unit/mL oral suspension swish, gargle and swallow 4 mL orally four times a day for 10 days active Not Available Not Available No t Available gabapentin 600 mg tablet TAKE 1 TABLET(60 0 mg) orally twice a day active Not Available Not Available No t Available albuterol sulfate 2.5 mg/3 mL (0.083 %) solution for nebulizatio n use 1 vial 2.5 mg (3 mL) via nebulizer every 6 hours active Not Available Not Available No t Available diltiazem CD 180 mg capsule,ext ended release 24 hr TAKE 1 CAPSULE(1 80 mg) orally daily 05/05 completed Not Available Not Available Not Available alprazolam 1 mg tablet take 1 tablet(1 mg) orally three times a day as needed As Needed for Anxiety; will need office visit active Not Available Not Available No t Available Lidocaine Viscous 2 % mucosal solution Apply 2 ml/thin film to affected area every 4 hours as needed for pain. active Not Available Not Available No t Available metoprolol succinate ER 50 mg tablet,exte nded release 24 hr TAKE 1 TABLET(50 mg) orally daily for High Blood Pressure active Not Available Not Available No t Available promethazin e 12.5 mg tablet take 1 tablet ORAL route every 6 hours Take as needed for nausea. active Not Available Not Available No t Available metoprolol succinate ER 100 mg tablet,exte nded release 24 hr TAKE ONE TABLET BY MOUTH DAILY 05/05 completed Not Available Not Available Not Available penicillin V potassium 500 mg tablet TAKE ONE TABLET BY MOUTH FOUR TIMES DAILY FOR SEVEN DAYS 05/05 completed Not Available Not Available Not Available potassium chloride ER 10 mEq tablet,exte nded release take 1 tablet(10 mEq )orally daily active Not Available Not Available No t Available sulfamethox azole 800 mg-trimetho prim 160 mg tablet take 1 tab orally twice a day 05/05 completed Not Available Not Available Not Available omeprazole 40 mg capsule,del ayed release Take 1 capsule by mouth Daily. Take a half hour before breakfast and dinner active Not Available Not Available No t Available levothyroxi ne 100 mcg tablet Take 1 tablet every day by oral route. active Not Available Not Available No t Available oxycodone-a cetaminophe n 5 mg-325 mg tablet take 1 tablet ORAL route every 4-6 hours 05/05 completed Not Available Not Available Not Available alprazolam 0.5 mg tablet As Needed for anxiety; TAKE one TABLET 3 TIMES DAILY for 7 days, one TABLET 2 TIMES DAILY for 7 days, one TAB DAILY for 7 days then stop 05/05 completed Not Available Not Available Not Available magnesium oxide 400 mg (241.3 mg magnesium) tablet take 1 tablet(40 0 mg) orally twice a day active Not Available Not Available No t Available trazodone 100 mg tablet TAKE ONE TABLET BY MOUTH DAILY active Not Available Not Available No t Available ropinirole 0.25 mg tablet TAKE 1 TABLET(0. 25 mg) orally at bedtime nightly active Not Available Not Available No t Available cephalexin 500 mg capsule TAKE 1 CAPSULE(5 00 mg) orally every 8 hours for 10 days 05/05 completed Not Available Not Available Not Available pantoprazol e 40 mg tablet,vaishali yed release Take 1 tablet every day by oral route. active Not Available Not Available No t Available metformin 1,000 mg tablet TAKE 1 TABLET(10 00 mg) orally 2 times per day with meals active Not Available Not Available No t Available triamcinolo ne acetonide 0.1 % topical ointment APPLY TOPICALLY 4 TIMES A DAY, APPLY TO LESIONS ON SCALP NEEDED active Not Available Not Available No t Available promethazin e 25 mg tablet TAKE ONE TABLET BY MOUTH THREE TIMES DAILY NEEDED FOR NAUSEA AND FOR VOMITING active Not Available Not Available No t Available nitroglycer in 0.4 mg sublingual tablet DISSOLVE 1 TABLET UNDER THE TONGUE EVERY 5 MINUTES NEEDED FOR CHEST PAIN. DO NOT EXCEED A TOTAL OF 3 DOSES IN 15 MINUTES. active Not Available Not Available No t Available montelukast 10 mg tablet take 1 tablet(10 mg) orally at bedtime nightly active Not Available Not Available No t Available furosemide 20 mg tablet TAKE TWO TABLETS BY MOUTH DAILY active Not Available Not Available No t Available metoprolol succinate ER 25 mg tablet,exte nded release 24 hr take 1 tablet(25 mg) orally daily active Not Available Not Available No t Available methylpredn isolone 4 mg tablets in a dose pack take as directed on package active Not Available Not Available No t Available albuterol sulfate HFA 90 mcg/actuati on aerosol inhaler inhale 2 puffs every 4 hours as needed As Needed for Shortness Of Breath Or Wheezing active Not Available Not Available No t Available verapamil ER 120 mg 24 hr capsule,ext ended release take 1 capsule(1 20 mg) orally daily active Not Available Not Available No t Available oxycodone 5 mg tablet take 1 tablet(5 mg) orally every 8 hours As Needed for pain 05/05 completed Not Available Not Available Not Available azithromyci n 500 mg tablet TAKE ONE TABLET BY MOUTH DAILY FOR THREE DAYS 05/05 completed Not Available Not Available Not Available Premarin 0.3 mg tablet take 1 tablet(0. 3 mg) orally daily; cyclicall y active Not Available Not Available No t Available duloxetine 60 mg capsule,del ayed release take 1 capsule(6 0 mg) orally twice a day for 90 days active Not Available Not Available No t Available ranolazine ER 500 mg tablet,exte nded release,12 hr TAKE ONE TABLET BY MOUTH TWICE DAILY FOR 30 DAYS active Not Available Not Available No t Available quetiapine 50 mg tablet take 1 tablet(50 mg) orally at bedtime nightly active Not Available Not Available No t Available cholecalcif marshal (vitamin D3) 1,250 mcg (50,000 unit) capsule TAKE ONE CAPSULE BY MOUTH EVERY WEEK FOR 56 DAYS active Not Available Not Available No t Available FeroSul 325 mg (65 mg iron) tablet take 1 tablet(32 5 mg) orally twice a day active Not Available Not Available No t Available Brilinta 90 mg tablet take 1 tablet by mouth twice a day for Heart disease/b lood thinner 05/05 completed Not Available Not Available Not Available Xarelto 15 mg tablet TAKE ONE TABLET BY MOUTH EVERY EVENING WITH MEAL 05/05 completed Not Available Not Available Not Available Xarelto 20 mg tablet TAKE 1 TABLET orally daily must administe r with evening meal active Not Available Not Available No t Available oxygen 2.5 liters per day 23/06 active Not Available Not Available No t Available Vitals Date Recorded Body height Body mass index (BMI) Body weight Body temperature Oxygen saturation Oxygen saturation in Arterial blood by Pulse oximetry Heart rate Respiratory rate Systolic blood pressure Diastolic blood pressure Provider Name and Address Organization Details Last Updated DateTime 5 167.64 cm 31.5 kg/m2 83983.5 1 g 98.4 [degF] 94 % 94 % 72 /min 18 /min 135 mm[Hg] 83 mm[Hg] Hussain Hackett [facility] & [place] 15:01:22 Social History Question Answer Notes LastModified by Organizat ion Details LastModified Time Tobacco Smoking Status Former Smoker TERESA Barney [facility] & [place] 05/05/2025 15:13:37 Do You Have An Advance Directive? No [email or web address] Information n ot available 05/05/2025 Do You Wear A Helmet When Biking? Yes Information not available 05/05/2025 Are You Blind Or Do You Have Difficulty Seeing? No [email or web address] Information n ot available 05/05/2025 What Is Your Level Of Caffeine Consumption? Moderate [email or web address] Information not available 05/05/2025 In The 14 Days Before Symptom Onset, Have You Had Close Contact With A Laboratory-confirm ed COVID-19 While That Case Was Ill? No [email or web address] Information n ot available 05/05/2025 In The 14 Days Before Symptom Onset, Have You Had Close Contact With A Person Who Is Under Investigation For COVID-19 While That Person Was Ill? No [email or web address] Information not available 05/05/2025 Have You Been To An Area Known To Be High Risk For COVID-19? No [email or web address] Information not available 05/05/2025 Are You Deaf Or Do You Have Serious Difficulty Hearing? No [email or web address] Information not available 05/05/2025 What Type Of Diet Are You Following? REGULAR [email or web address] Information n ot available 05/05/2025 Have You Processed Blood Or Body Fluids From An Ebola Virus Disease Patient Without Appropriate PPE? No [email or web address] Information not available 05/05/2025 Do You Reside In Or Have You Traveled To An Area Where Ebola Virus Transmission Is Active? No Information not available 05/05/2025 Have There Been Any Changes To Your Family Or Social Situation? No [email or web address] Information no t available 05/05/2025 What Is The Fluoride Status Of Your Home? Unknown [email or web address] Information not available 05/05/2025 When Did You Quit Smoking? 1-5yearssince lastcigarette [email or web address] Information not available 05/05/2025 Are There Any Guns Present In Your Home? No [email or web address] Information not available 05/05/2025 Have You Recently Or Are You Planning To Travel To An Area With Zika Virus? No [email or web address] Information not available 05/05/2025 Do You Use Insect Repellent Routinely? Yes [email or web address] Information not available 05/05/2025 Do You Feel Safe At Home? Yes Information not available 05/05/2025 Do You Have A Medical Power Of Data Abstractor? No [email or web address] Information not available 05/05/2025 What Was The Date Of Your Most Recent Tobacco Screening? 05/05/2025 [email or web address] Information not available 05/05/2025 What Is Your Current Pack Years? 10packyears Information not available 05/05/2025 Do You Have Any Pets? No Information not available 05/05/2025 What Is Your Relationship Status? [email or web address] Information not available 05/05/2025 Do You Use Your Seat Belt Or Car Seat Routinely? Yes [email or web address] Information not available 05/05/2025 Do You Have Smoke And Carbon Monoxide Detectors In Your Home? Yes [email or web address] Information not available 05/05/2025 At What Age Did You Start Smoking Tobacco? 20 [email or web address] Information not available 05/05/2025 Are You Passively Exposed To Smoke? No Information no t available 05/05/2025 How Much Tobacco Do You Smoke? No [email or web address] Information not available 05/05/2025 What Types Of Sporting Activities Do You Participate In? None, Cant Breath Or Move Much [email or web address] Information not available 05/05/2025 Do You Use Sunscreen Routinely? Yes [email or web address] Information not available 05/05/2025 Has Tobacco Cessation Counseling Been Provided? Yes [email or web address] Information not available 05/05/2025 On What Date Was Tobacco Cessation Counseling Provided? 05/05/2025 [email or web address] Information not available 05/05/2025 How Many Years Have You Smoked Tobacco? 40 [email or web address] Information not available 05/05/2025 Do You Have Difficulty Walking Or Climbing Stairs? No [email or web address] Information not available 05/05/2025 Are You Currently In School? No [email or web address] Information not available 05/05/2025 Sex: Unknown Functional Status Question Answer Note LastModified by Organizat ion Details LastModified Time Do you use any illicit or recreational drugs? No [email or web address] Information not available 05/05/2025 Do you or have you ever used any other forms of tobacco or nicotine? No [email or web address] Information not available 05/05/2025 What is your level of alcohol consumption? None [email or web address] Information not available 05/05/2025 Are you currently employed? No [email or web address] Information not available 05/05/2025 Do you have transportation difficulties? No [email or web address] Information not available 05/05/2025 Are you able to walk? YESWOREST [email or web address] Information not available 05/05/2025 Do you have difficulty doing errands alone? No [email or web address] Information not available 05/05/2025 Are you able to care for yourself? Yes [email or web address] Information not available 05/05/2025 Do you have difficulty dressing or bathing? No [email or web address] Information not available 05/05/2025 What is your exercise level? None [email or web address] Information not available 05/05/2025 Mental Status Question Answer Note LastModified by Organizat ion Details LastModified Time Do you feel stressed (tense, restless, nervous, or anxious, or unable to sleep at night)? [id number] [email or web address] Information not available 05/05/2025 Do you have difficulty concentrating, remembering or making decisions? No Information no t available 05/05/2025 Family History Nothing Reported. Medical History No medical history recorded. Gynecological HistoryNo gynecological history recorded. Obstetrics History GPAL:G 0 P 0 0 0 0 Immunizations Vaccine Type Date Status Note Provider Nam e and Address Organization Details Recorded Time COVID-19, mRNA, LNP-S, PF, 100 mcg/0.5mL dose or 50 mcg/0.25mL dose 1 completed Hussain cuellar, [place] - [facility] [place] 05/05/2025 15:01:45 COVID-19 vaccine, vector-nr, rS-Ad26, PF, 0.5 mL 1 completed Hussain cuellar, [place] - [facility] [place] & [place] 05/05/2025 15:01:45 COVID-19, mRNA, LNP-S, PF, 50 mcg/0.5 mL 4 completed Hussain cuellar, [place] [facility] [place] 05/05/2025 15:01:45 pneumococcal polysaccharide PPV23 5 completed Hussain Card null, [place] - [facility] - [place] & [place] 05/05/2025 15:01:45 Influenza, split virus, trivalent, PF 4 completed Hussain cuellar, [place] [facility] [place] & [place] 05/05/2025 15:01:45 Influenza, split virus, quadrivalent, PF 0 completed Hussain Card null, [place] - [facility] - [place] & [place] 05/05/2025 15:01:45 Influenza, split virus, quadrivalent, PF 2 completed Hussain Card null, [place] - [facility] - [place] & [place] 05/05/2025 15:01:45 Influenza, split virus, quadrivalent, PF 5 completed Hussain Card null, [place] - [facility] & [place] 05/05/2025 15:01:45 Influenza, split virus, quadrivalent, PF 8 completed Hussain Card null, [place] - [facility] & [place] 05/05/2025 15:01:45 Past Encounters Encounter ID Performer Location Encounter Start Date Encounter Closed Date Diagnosis/Indication Diagnosis SNOMED-CT Code Diagnosis ICD10 Code Diagnosis Note [id number] CECIL WEEKS [facility] [address] [id number] 05/05/2025 14:06:57 05/06/2025 09:24:24 Hyperthyroidism 93694510 E05.90 history of hyperthyro idawaiting lab resultsest ablishing baseline for ptcurrentl y on levothyrox ine from previous PCPwill reassess pending results Mixed anxi ety and depressive disorder 898166165 F41.8 pt wants behavioral health to followrefe rral sentreport s history of previously taking Valium and xanaxrepor ts that she has taken xanax for the last 35+ years Pancreas divisum 4227581 9 Q45.3 history of congenital pancreas malformati onawaiting lab resultsPE showed epigastric tenderness with rebound tenderness has seen Dr. Rubin erazo for GI issues at [facility] [place] in [place] for last 25 yearsdue to transporta tion needs, [place] equ[place] referral for GI closer to homereferr al sent Prediabetes 278952078 R7 3.03 history of prediabete sawaiting lab results Screening for malignant neoplasm of lung 089698492 Z12.2 history of smokingqui t 5 years agosent order for LDCT Pain assoc iated with defecation 932992431 R19.8 PE showed epigastric pain with rebound tenderness reports pain with BM5-6 episodes of diarrheaCT scan orderedawa iting lab resultsf/u with office or ER if symptoms worsen or persist Hyperlipid emia screening 570980965 Z13.220 history of smokingest ablishing baseline for ptawaiting lab resultscur rently on a statin Screening for osteoporosis 801600331 Z13.820 establishi ng baseline for pta[facility]ing lab results Iron defic iency screening 033224021 Z13.0 establishi ng baseline for ptawaiting lab resultsrep orts B12 injections in past have helped her Essential hypertension [id number] I10 recheck at next visit; will address if reading is high on next visitcurre ntly on metoprolol also follows cardiology Health Concerns Section Related Observation LastModified by Organization Detai ls LastModified Time None Recorded Concern Status LastModified by Organization Details LastModified Time None Recorded Payers Encounter Date Sequence Insurance Name Policy Number Policy Ayala Covered Member ID Ayala Member ID Guarantor Name 05/05/2025 2 [place] [employer] - FFS/TRADITIO NAL Andrew Bejarano [id number] Andrew Bejarano 05/05/2025 1 [id number] (MEDICARE REPLACEMENT/ ADVANTAGE - HMO) Andrew Bejarano [id number] Andrew Bejarano Notes Date Note Type Note Provider Name and Address Organization Details Recorded Time 05/05/2025 text/html 64 y/o female wi th history of HTN, hyperthyroidism, anxiety, depression, congenital pancreas malformation, and prediabetes presents to clinic for establishment of care and new complaints of diarrhea associated with abdominal pain. Reports that she was seeing Dr. Juan C Colón but no longer is able to see him due to their practice relocating. Reports that this morning she woke up with diarrhea and has experienced approximately 5-6 loose bowel movements. Reports that she is experiencing pain with her BM. Denies fever, chills, and bloody stools. Reports history of diverticulitis for which she was hospitalized for approximately 1 week last year due to flare up. Reports that she experiences crampy sensation during her flares. Reports that she sees a GI doctor in [place], Dr. Rubin Kearney, at [facility] for the past 25 years. Reports that she wants to keep seeing him but also due to her current transportation situation has difficulty making it to [place] and would like to have someplace closer for care. Reports that she receives a colonoscopy every 2 years. Reports history of anxiety and depression. 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 Reports that she was prescribed Valium at an early age and was switched to Xanax and has been taking it for 35+ years. Reports that she would like to see a specialist for her condition. Reports that she has went from 260 to 195 pounds intentionally and would like to lose another 30 pounds. Reports history of smoking and recently quit 5 years ago. Reports history of receiving vitamin B12 injections in the past and believes those would help her in the future. Denies CP, SOB, fever, chills, vision abnormalities, sore throat, coughing, and muscular pain. CECIL WEEKS [address] [place] [address], [id number] 05/05/2025 17:11:46 OBGyn Episode No OBEpisode recorded.
--- OUTSIDE RECORDS SUMMARY | 2025-05-25 21:31 | XMS_ITS | Data Portability ---
Author Organization [facility] & Antonia TERRY ADMIN Address [address] [place] [id number] Care Team Providers Care Regional Marketing Director Name Role Phone RADHA GALLO Referring Provider [...] TSH + free T4, serum [address] (Laboratory), [address] [place], [address], 05/12/2025 08:04:34 lipid panel, serum 2024 025 [facility] (Laboratory), [address] [place], [address], 05/05/2025 17:25:45 iron + TIBC + ferritin, serum [address] (Laboratory), [address] [place], [address], 05/12/2025 08:04:35 CBC w/ auto diff 2024 025 [facility] (Laboratory), [address] [place], [address], 05/05/2025 17:09:33 vitamin B12 + folate, serum or blood [address] (Laboratory), [address] [place], [address], 05/12/2025 08:04:35 hemoglobi n A1C/hemog lobin total, QN, blood [address] (Laboratory), [address] [place], [address], 05/12/2025 08:04:34 amylase + lipase, serum [address] (Laboratory), [address] [place], [address], 05/12/2025 08:04:34 CMP, serum or plasma 2024 025 [facility] (Laboratory), [address] [place], [address], 05/05/2025 17:25:43 vitamin D, 25-hydrox y, total, serum [address] (Laboratory), [address] [place], [address], 05/12/2025 08:04:34 Referral gastroent erologist referral 2024 025 MELISSA Redd MD, [address], [place], [address], 05/10/2025 08:34:37 behaviora health referral 2024 025 [place] [address] [facility], [address] [place], [address], 05/13/2025 08:31:15 Procedures None recorded. Surgeries None recorded. Imaging CT, abdomen + pelvis, w/ contrast 2024 025 [facility] (Scheduling), [address] [place], [address], 05/06/2025 08:54:22 LDCT, chest, for lung cancer screening [id number] [place] [address] (Scheduling), [address] [place], [address], 05/12/2025 08:04:25 Medication Orders None recorded. Patient TargetsNo targets recorded. Patient InstructionsNo instructions recorded. Reason for Referral Behavioral Health Referral f or Mixed anxiety and depressive disorder Referring Physician: Radha Gallo [facility] Medicine, Encounter Date: 05/05/2025 Evs Manager Referral for Pancreas divisum Referring Physician: Radha Gallo [facility] Medicine, Encounter Date: 05/05/2025 Results Created Date Observation Date Name Description Value Unit Range Abnormal Flag Note LastModifiedBy Organization Detail LastModifiedTime 05/05/2005/05/2025 CBC AUTO W DIFF WBC 10.3 10 4.5-11 .5 Not Available [facility] (Lab Registration) [address] [place], [address], 05/05/2025 17:09:32 05/05/2005/05/2025 CBC AUTO W DIFF RBC 4.76 10 4.25-5 .57 Not Available [facility] (Lab Registration) [address] [place], [address], 05/05/2025 17:09:32 05/05/2005/05/2025 CBC AUTO W DIFF HGB 15.1 g/dL 12.0-1 5.7 Not Available [facility] (Lab Registration) [address] [place], [address], 05/05/2025 17:09:32 05/05/20 25 05/05/2025 CBC AUTO W DIFF HCT 44.2 % 36.0-4 7.0 Not Available [facility] (Lab Registration) [address] [place], [address], 05/05/2025 17:09:32 05/05/20 25 05/05/2025 CBC AUTO W DIFF MCV 92.9 fL 80-95 Not Available [facility] (Lab Registration) [address] [place], [address], 05/05/2025 17:09:32 05/05/20 25 05/05/2025 CBC AUTO W DIFF MCH 31.7 pg 27.0-3 4.0 Not Available [facility] (Lab Registration) [address] [place], [address], 05/05/2025 17:09:32 05/05/20 25 05/05/2025 CBC AUTO W DIFF MCHC 34.2 g/dL 32.0-3 6.0 Not Available [facility] (Lab Registration) [address] [place], [address], 05/05/2025 17:09:32 05/05/20 25 05/05/2025 CBC AUTO W DIFF platelet count 332 10 150-45 0 Not Available [facility] (Lab Registration) [address] [place], [address], 05/05/2025 17:09:32 05/05/20 25 05/05/2025 CBC AUTO W DIFF RDW 15.5 % 12.3-1 5.1 high Not Available [facility] (Lab Registration) [address] [place], [address], 05/05/2025 17:09:32 05/05/20 25 05/05/2025 CBC AUTO W DIFF MPV 11.1 fL 7.4-10 .4 high Not Available [facility] (Lab Registration) [address] [place], [address], 05/05/2025 17:09:32 05/05/20 25 05/05/2025 CBC AUTO W DIFF granulocyte% 63.1 % 40-75 Not Available [facility] (Lab Registration) [address] [place], [address], 05/05/2025 17:09:32 05/05/20 25 05/05/2025 CBC AUTO W DIFF lymphocyte% 27.7 % 15-57 Not Available [facility] (Lab Registration) [address] [place], [address], 05/05/2025 17:09:32 05/05/20 25 05/05/2025 CBC AUTO W DIFF monocyte% 6.0 % 4.0-12 .0 Not Available [facility] (Lab Registration) [address] [place], [address], 05/05/2025 17:09:32 05/05/20 25 05/05/2025 CBC AUTO W DIFF eosinophil% 2.2 % 0.0-4. 0 Not Available [facility] (Lab Registration) [address] [place], [address], 05/05/2025 17:09:32 05/05/20 25 05/05/2025 CBC AUTO W DIFF basophil% 0.6 % 0.0-1. 0 Not Available [facility] (Lab Registration) [address] [place], [address], 05/05/2025 17:09:32 05/05/20 25 05/05/2025 CBC AUTO W DIFF immature granulocytes % 0.4 % 0.0-0. 8 Not Available [facility] (Lab Registration) [address] [place], [address], 05/05/2025 17:09:32 05/05/20 25 05/05/2025 CBC AUTO W DIFF granulocyte# 6.52 10 Not Available [facility] (Lab Registration) [address] [place], [address], 05/05/2025 17:09:32 05/05/20 25 05/05/2025 CBC AUTO W DIFF lymphocyte# 2.86 10 Not Available [facility] (Lab Registration) [address] [place], [address], 05/05/2025 17:09:32 05/05/20 25 05/05/2025 CBC AUTO W DIFF monocyte# 0.62 10 Not Available [facility] (Lab Registration) [address] [place], [address], 05/05/2025 17:09:32 05/05/20 25 05/05/2025 CBC AUTO W DIFF eosinophil# 0.23 10 Not Available [facility] (Lab Registration) [address] [place], [address], 05/05/2025 17:09:32 05/05/20 25 05/05/2025 CBC AUTO W DIFF basophil# 0.06 10 Not Available [facility] (Lab Registration) [address] [place], [address], 05/05/2025 17:09:32 05/05/20 25 05/05/2025 CBC AUTO W DIFF immature granulocytes # 0.04 10 Not Available [facility] (Lab Registration) [address] [place], [address], 05/05/2025 17:09:32 05/05/20 25 05/05/2025 CBC AUTO W DIFF manual differential NO Not Available [facility] (Lab Registration) [address] [place], [address], 05/05/2025 17:09:32 05/05/20 25 05/05/2025 CBC AUTO W DIFF note Unles s other sanchez noted testi ng perfo rmed at: [facility] [address] [place] [address] [phone] Bernard erazo MD CLIA: [id number] Not Available [facility] (Lab Registration) [address] [place], [address], 05/05/2025 17:09:32 05/05/20 25 05/05/2025 HEMOG LOBIN A1C glycosylated hemoglobin A1C 6.4 % 4.5-6. 2 high Not Available [facility] (Lab Registration) [address], [place], [address], 05/05/2025 17:10:39 05/05/20 25 05/05/2025 HEMOG LOBIN A1C estimated average glucose 137 mg/dL 82-131 high Not Available [facility] (Lab Registration) [address] [place], [address], 05/05/2025 17:10:39 05/05/20 25 05/05/2025 HEMOG LOBIN A1C note Unles s other sanchez noted testi ng perfo rmed at: [facility] [address] [place] [address] [phone] Bernard erazo MD CLIA: [id number] Not Available [facility] (Lab Registration) [address] [place], [address], 05/05/2025 17:10:39 05/05/20 25 05/05/2025 IRON/ TIBC/ %SAT (IRON STUDI ES) iron 43 ug/dL 35-150 Not Available [facility] (Lab Registration) [address] [place], [address], 05/05/2025 17:10:40 05/05/20 25 05/05/2025 IRON/ TIBC/ %SAT (IRON STUDI ES) total iron bind cap (TIBC) 387 ug/dL 250-45 0 Not Available [facility] (Lab Registration) [address] [place], [address], 05/05/2025 17:10:40 05/05/20 25 05/05/2025 IRON/ TIBC/ %SAT (IRON STUDI ES) % saturation 11 % 15-55 low Not Available [facility] (Lab Registration) [address] [place], [address], 05/05/2025 17:10:40 05/05/20 25 05/05/2025 IRON/ TIBC/ %SAT (IRON STUDI ES) note Unles s other sanchez noted testi ng perfo rmed at: [facility] [address] [place] [phone] Bernard erazo MD CLIA: [id number] Not Available [facility] (Lab Registration) [address] , [place], [address], 05/05/2025 17:10:40 05/05/20 25 05/05/2025 THYRO ID STIMU LATIN G HORMO NE thyroid stimulating hormone 1.09 mIU/m L 0.34-4 .80 Not Available [facility] (Lab Registration) [address], [place], [address], 05/05/2025 17:24:39 05/05/20 25 05/05/2025 THYRO ID STIMU LATIN G HORMO NE note Cindy erazo other sanchez noted testi ng perfo rmed at: [facility] [address] [place] [phone] Bernard erazo MD CLIA: [id number] Not Available [facility] (Lab Registration) [address], [place], [address], 05/05/2025 17:24:39 05/05/20 25 05/05/2025 T4 FREE T4,free 1.00 NG/dL 0.76-1 .46 Effec tive today 013 new Refer ence Range . Not Available [facility] (Lab Registration) [address] [place], [address], 05/05/2025 17:24:40 05/05/20 25 05/05/2025 T4 FREE note Cindy erazo other sanchez noted testi ng perfo rmed at: [facility] [address] [place] [address] [phone] Bernard erazo MD CLIA: [id number] Not Available [facility] (Lab Registration) [address] [place], [address], 05/05/2025 17:24:40 05/05/20 25 05/05/2025 AMYLA SE amylase 66 U/L 25-115 Not Available [facility] (Lab Registration) [address] [place], [address], 05/05/2025 17:25:41 05/05/20 25 05/05/2025 AMYLA SE note Unles s other sanchez noted testi ng perfo rmed at: [facility] [address] [place] [address] [phone] Bernard erazo MD CLIA: [id number] Not Available [facility] (Lab Registration) [address] [place], [address], 05/05/2025 17:25:41 05/05/20 25 05/05/2025 LIPAS E lipase 64 U/L 16-77 Not Available [facility] (Lab Registration) [address] [place], [address], 05/05/2025 17:25:42 05/05/20 25 05/05/2025 LIPAS E note Unles s other sanchez noted testi ng perfo rmed at: [facility] [address] [place] [address] [phone] Bernard erazo MD CLIA: [id number] Not Available [facility] (Lab Registration) [address] [place], [address], 05/05/2025 17:25:42 05/05/20 25 05/05/2025 COMP METAB OLIC PANEL sodium 139 mmol/ L 136-14 5 Not Available [facility] (Lab Registration) [address] [place], [address], 05/05/2025 17:25:43 05/05/20 25 05/05/2025 COMP METAB OLIC PANEL potassium 4.1 mmol/ L 3.5-5. 1 Not Available [facility] (Lab Registration) [address] [place], [address], 05/05/2025 17:25:43 05/05/20 25 05/05/2025 COMP METAB OLIC PANEL chloride 102 mmol/ L 98-107 Not Available [facility] (Lab Registration) [address] [place], [address], 05/05/2025 17:25:43 05/05/20 25 05/05/2025 COMP METAB OLIC PANEL carbon dioxide 29 mmol/ L 21-32 Not Available [facility] (Lab Registration) [address] [place], [address], 05/05/2025 17:25:43 05/05/20 25 05/05/2025 COMP METAB OLIC PANEL anion gap 8.0 Not Available [facility] (Lab Registration) [address] [place], [address], 05/05/2025 17:25:43 05/05/20 25 05/05/2025 COMP METAB OLIC PANEL glucose 110 mg/dL 70-110 Not Available [facility] (Lab Registration) [address] [place], [address], 05/05/2025 17:25:43 05/05/20 25 05/05/2025 COMP METAB OLIC PANEL blood urea nitrogen 15 mg/dL 7-18 Not Available [facility] (Lab Registration) [address] [place], [address], 05/05/2025 17:25:43 05/05/20 25 05/05/2025 COMP METAB OLIC PANEL creatinine 1.2 mg/dL 0.6-1. 0 high Not Available [facility] (Lab Registration) [address] [place], [address], 05/05/2025 17:25:43 05/05/20 25 05/05/2025 COMP METAB OLIC PANEL BUN/creatini ne ratio 12.5 9-21 Not Available [facility] (Lab Registration) [address], [place], [address], 05/05/2025 17:25:43 05/05/20 25 05/05/2025 COMP METAB OLIC PANEL estimated glom filtration rate 51 mL/mi n >60- low GFR LIMIT ATION : The eGFR equat ion CKD-E PI 2020 is not appli cable for pedia tric patie nts or great er than 90 years of age. The follo wing condi tions may alter the GFR resul t: extre mes in body size, malnu triti on or obesi ty, skele sean muscl e disea se, parap legia or quadr ipleg ia, veget doreen diet or rapid ly lemus ing kiney funct ion. Not Available [facility] (Lab Registration) [address], [place], [address], 05/05/2025 17:25:43 05/05/20 25 05/05/2025 COMP METAB OLIC PANEL osmolality (calculated) 291 mOsm/ kg 275-30 1 OSMOL ALITY IS A CALCU LATIO N UTILI ZING THE SERUM /PLAS MA SODIU M, GLUCO SE AND UREA NITRO GEN (BUN) LEVEL S. FOR THE MOST ACCUR ATE RESUL T A MEASU RED SERUM OSMOL ALITY IS SUGGE STED. Not Available [facility] (Lab Registration) [address] [place], [address], 05/05/2025 17:25:43 05/05/20 25 05/05/2025 COMP METAB OLIC PANEL total protein 8.0 g/dL 6.4-8. 2 Not Available [facility] (Lab Registration) [address] [place], [address], 05/05/2025 17:25:43 05/05/20 25 05/05/2025 COMP METAB OLIC PANEL albumin 3.9 g/dL 3.4-5. 0 Not Available [facility] (Lab Registration) [address] [place], [address], 05/05/2025 17:25:43 05/05/20 25 05/05/2025 COMP METAB OLIC PANEL calcium 8.9 mg/dL 8.5-10 .1 Not Available [facility] (Lab Registration) [address] [place], [address], 05/05/2025 17:25:43 05/05/20 25 05/05/2025 COMP METAB OLIC PANEL corrected calcium 9.0 mg/dL 8.5-10 .1 Not Available [facility] (Lab Registration) [address] [place], [address], 05/05/2025 17:25:43 05/05/20 25 05/05/2025 COMP METAB OLIC PANEL bilirubin total 0.5 mg/dL 0.4-1. 5 Not Available [facility] (Lab Registration) [address] [place], [address], 05/05/2025 17:25:43 05/05/20 25 05/05/2025 COMP METAB OLIC PANEL AST (SGOT) 18 U/L 15-37 Not Available [facility] (Lab Registration) [address] [place], [address], 05/05/2025 17:25:43 05/05/20 25 05/05/2025 COMP METAB OLIC PANEL ALT (SGPT) 12 U/L 12-78 Not Available [facility] (Lab Registration) [address] [place], [address], 05/05/2025 17:25:43 05/05/20 25 05/05/2025 COMP METAB OLIC PANEL alk phosphatase 136 U/L 53-141 Not Available [facility] (Lab Registration) [address] [place], [address], 05/05/2025 17:25:43 05/05/20 25 05/05/2025 COMP METAB OLIC PANEL note Unles s other sanchez noted testi ng [facility]fo [facility]med [facility] [address] [address] [phone] Bernard erazo MD CLIA: [id number] Not Available [facility] (Lab Registration) [address] [place], [address], 05/05/2025 17:25:43 05/05/20 25 05/05/2025 LIPID PANEL triglyceride 419 mg/dL 20-200 high The Natio nal Elsie stero l Educa tion Progr am (NCEP ) has set the follo wing guide lines for Fasti ng Trigl yceri philippe: JUANITA L: <150 mg/dL BORDE RLINE HIGH: 150 - 199 mg/dL HIGH: 200 - 499 mg/dL VERY HIGH: > or =500 mg/dL Not Available [facility] (Lab Registration) [address] [place], [address], 05/05/2025 17:25:45 05/05/20 25 05/05/2025 LIPID PANEL cholesterol 164 mg/dL 0-200 The Natio nal Elsie stero l Educa tion Progr am (NCEP ) has set the follo wing guide lines for Fasti ng Elsie stero l: ARIA ABLE: <200 mg/dL BORDE RLINE HIGH: 200 - 239 mg/dL HIGH: > or =240 mg/dL Not Available [facility] (Lab Registration) [address] [place], [address], 05/05/2025 17:25:45 05/05/20 25 05/05/2025 LIPID PANEL HDL cholesterol 56 mg/dL 60- low The Natio nal Elsie stero l Educa tion Progr am (NCEP ) has set the follo wing guide lines for Fasti ng HDL Elsie stero l: LOW HDL: <40 mg/dL JUANITA L: 40 - 60 mg/dL ARIA ABLE: >60 mg/dL Not Available [facility] (Lab Registration) [address] [place], [address], 05/05/2025 17:25:45 05/05/20 25 05/05/2025 LIPID PANEL LDL calculated TNP mg/dL 100- LDL is calcu ated and inval id when TRIG are >400 mg/dL . The Natio nal Elsie stero l Educa tion Progr am (NCEP ) has set the follo wing guide lines for Fasti ng LDL Elsie stero l: OPTIM AL: < 100 mg/dL LOW RISK: 100 - 129 mg/dL BORDE RLINE HIGH: 130 - 159 mg/dL HIGH: 160 - 189 mg/dL VERY HIGH: > or = 190 mg/dL Not Available [facility] (Lab Registration) [address] , [place], [address], 05/05/2025 17:25:45 05/05/20 25 05/05/2025 LIPID PANEL chol/HDL ratio 3 -5 Not Available [facility] (Lab Registration) [address] [place], [address], 05/05/2025 17:25:45 05/05/20 25 05/05/2025 LIPID PANEL note Ilsaes s other sanchez noted testi ng perfo rmed at: [facility] [address] [place] [address] [phone] Bernard erazo MD CLIA: [id number] Not Available [facility] (Lab Registration) [address] [place], [address], 05/05/2025 17:25:45 05/05/20 25 05/05/2025 VITAM IN D TOTAL (D2+D 3) vitamin D25 (D2+D3) 11.6 NG/mL 30-100 low Not Available [facility] (Lab Registration) [address] [place], [address], 05/05/2025 17:25:47 05/05/20 25 05/05/2025 VITAM IN D TOTAL (D2+D 3) note Unles s other sanchez noted testi ng perfo rmed at: [facility] [address] [place] [address] [phone] Bernard erazo MD CLIA: [id number] Not Available [facility] (Lab Registration) [address], [place], [address], 05/05/2025 17:25:47 05/05/20 25 05/05/2025 HILLARY TIN ferritin 35 NG/mL 8-388 Not Available [facility] (Lab Registration) [address], [place], [address], 05/05/2025 17:25:48 05/05/20 25 05/05/2025 HILLARY TIN note Unles s other sanchez noted testi ng perfo rmed at: [facility] [address] [place] [address] [phone] Bernard erazo MD CLIA: [id number] Not Available [facility] (Lab Registration) [address] [place], [address], 05/05/2025 17:25:48 05/05/20 25 05/05/2025 VITAM IN B12 vitamin B12 247 pg/mL 193-98 6 Not Available [facility] (Lab Registration) [address], [place], [address], 05/05/2025 17:25:49 05/05/20 25 05/05/2025 VITAM IN B12 folate (folic acid), serum 17.2 NG/mL 8.6-58 .9 Not Available [facility] (Lab Registration) [address] [place], [address], 05/05/2025 17:25:49 05/05/20 25 05/05/2025 VITAM IN B12 note Unles s other sanchez noted testi ng perfo rmed at: [facility] [address] [place] [address] [phone] Bernard erazo MD CLIA: [id number] Not Available [facility] (Lab Registration) [address] [place], [address], 05/05/2025 17:25:49 05/05/2005/05/2025 CT ABD/p [place] W IV and oral co [facility] [address] [place] [address] Phone: Fax: Name: ANDREW BEJARANO Exam Date: 05/05/20 : 1959 Age 64 years Gender : F Access ion: [id number] Physic melodie: RADHA YEH Facili ty: [facility] Facili ty HSV: Outpat ient Exam: [...] divert iculit is. 2. Hepato megaly . Authen ticate d and Electr onical ly Signed by Forrest Randall MD on 2024 06:49: 00 PMEAST LINWOOD Dictat ed By: Forrest Randall Transc ribed By: Transc ribed On: 05/05/20 6:49 PM Electr onical ly signed by: Forrest Randall 05/05/20 Thank you for referr ing ANDRWE BEJARANO to [facility]. Legall y authen ticate d by BARBARA Woo MD 05-05 18:49: 00 CC'ed Logic: Orderi ng Provid er: DENNY GARCIA CC Provid er: LEO RODRIGUEZ Attend ing Provid er: DENNY GARCIA Referr ing Provid er: DENNY GARCIA Admitt ing Provid er: DENNY [email or web address] [facility] (Radiology) [address] , [place], [address], 05/06/2025 12:40:28 05/05/2005/05/2025 CT, abdom en + pelvi s, w/ contr ast No observ ation record ed. [facility] (Radiology) [address] [place], [address], 05/06/2025 12:41:26 05/05/20 25 05/05/2025 CT, abdom en + pelvi s, w/ contr ast No observ ation record ed. [facility] (Radiology) [address] [place], [address], 05/06/2025 12:41:26 Result Notes None recorded. Problems Name Problem SNOMED Code Status Onset Date Resolution Date Notes Provider Name and Address Organization Details Recorded Time Essential hypertension 41144154 Active 2024 Hussain Card null, [place] - [facility] - [place] 15:08:24 Prediabetes 240605337 Active 2024 Hussain Card [place] [facility] [place] 15:08:43 Mixed anxiety and depressive disorder 691566396 Active 2024 Hussain Card [place] [facility] [place] 15:09:02 Hyperthyroidis m 27717760 Active 2024 Hussain Card [place] [facility] [place] 15:09:26 Pancreas divisum 45005641 Active 2024 Hussain Card [place], [place] [facility] [place] 15:09:59 Problem Notes None recorded. Procedures Surgical History Date Name Laterality Status Provider Name and Address Organization Details Recorded Time Tubal Ligation completed Hussain Card [place] [facility] [place] 05/05/2025 15:21:17 hysterectomy completed Hussain Card [place] [facility] [place] 05/05/2025 15:21:24 insertion of infusion pump beneath skin completed Hussain Card [place] [facility] [place] 05/05/2025 15:22:02 placement of stent in coronary artery completed Hussain Card [place] - [facility] & [place] 05/05/2025 15:22:18 appendectomy completed Hussain Card [place] [facility] [place] 05/05/2025 15:22:36 cholecystectomy completed Hussain Card [place] [facility] [place] 05/05/2025 15:22:46 Imaging Results None recorded. Procedure Notes None recorded. Medical Equipment None Reported. Allergies Allergen ID Allergen Name Allergen Category Reaction Reaction Severity Criticality Documentation Date Start Date Code Code System Note Provider Name and Address Organization Details Recorded Time 719682 tramadol medicatio n Not available Not available Not available 05/05/2025 85192 RxNorm Hussain Card null, [place] - [place] [facility] & [place] 5 15:01:58 765654 Cipro medicatio n Not available Not available Not available 05/05/202518211 3 RxNorm TERESA Barney [facility] & [place] 5 15:02:09 466557 Demerol medicatio n Not available Not available Not available 05/05/2025 77037 1 RxNorm TERESA Barney [facility] & [place] 5 15:03:24 Medications Name Sig Start Date [...] and Address Organization Details Last Updated DateTime 167.64 cm 31.5 kg/m2 29369.5 1 g 98.4 [degF] 94 % 94 % 72 /min 18 /min 135 mm[Hg] 83 mm[Hg] Hussain Card [facility] & [place] 15:01:22 Social History Question Answer Notes LastModified by [employer] ion Details LastModified Time Tobacco Smoking Status Former Smoker Hussain Card [facility], [facility] & [place] 05/05/2025 15:13:37 Do You Have An Advance Directive? No [email or web address] Information n ot available 05/05/2025 Do You Wear A Helmet When Biking? Yes [email or web address] Information not available 05/05/2025 Are You Blind Or Do You Have Difficulty Seeing? No [email or web address] Information n ot available 05/05/2025 What Is Your Level Of Caffeine Consumption? Moderate [email or web address] Information not available 05/05/2025 In The 14 Days Before Symptom Onset, Have You Had Close Contact With A Laboratory-confirm ed COVID-19 While That Case Was Ill? No [email or web address] Information n ot available 05/05/2025 In The 14 Days Before Symptom Onset, Have You Had Close Contact With A Person Who Is Under Investigation For COVID-19 While That Person Was Ill? No [email or web address] Information not available 05/05/2025 Have You Been To An Area Known To Be High Risk For COVID-19? No [email or web address] Information not available 05/05/2025 Are You Deaf Or Do You Have Serious Difficulty Hearing? No [email or web address] Information not available 05/05/2025 What Type Of Diet Are You Following? REGULAR Information n ot available 05/05/2025 Have You Processed Blood Or Body Fluids From An Ebola Virus Disease Patient Without Appropriate PPE? No [email or web address] Information not available 05/05/2025 Do You Reside In Or Have You Traveled To An Area Where Ebola Virus Transmission Is Active? No Information not available 05/05/2025 Have There Been Any Changes To Your Family Or Social Situation? No [email or web address] Information no t available 05/05/2025 What Is The Fluoride Status Of Your Home? Unknown [email or web address] Information not available 05/05/2025 When Did You Quit Smoking? 1-5yearssince lastcigarette Information not available 05/05/2025 Are There Any Guns Present In Your Home? No [email or web address] Information not available 05/05/2025 Have You Recently Or Are You Planning To Travel To An Area With Zika Virus? No [email or web address] Information not available 05/05/2025 Do You Use Insect Repellent Routinely? Yes [email or web address] Information not available 05/05/2025 Do You Feel Safe At Home? Yes [email or web address] Information not available 05/05/2025 Do You Have A Medical Power Of Waste Baler? No [email or web address] Information not available 05/05/2025 What Was The Date Of Your Most Recent Tobacco Screening? 05/05/2025 [email or web address] Information not available 05/05/2025 What Is Your Current Pack Years? 10packyears Information not available 05/05/2025 Do You Have Any Pets? No [email or web address] Information not available 05/05/2025 What Is Your Relationship Status? [email or web address] Information not available 05/05/2025 Do You Use Your Seat Belt Or Car Seat Routinely? Yes [email or web address] Information not available 05/05/2025 Do You Have Smoke And Carbon Monoxide Detectors In Your Home? Yes [email or web address] Information not available 05/05/2025 At What Age Did You Start Smoking Tobacco? 20 [email or web address] Information not available 05/05/2025 Are You Passively Exposed To Smoke? No [email or web address] Information no t available 05/05/2025 How Much Tobacco Do You Smoke? No [email or web address] Information not available 05/05/2025 What Types Of Sporting Activities Do You Participate In? None, Cant Breath Or Move Much [email or web address] Information not available 05/05/2025 Do You Use Sunscreen Routinely? Yes [email or web address] Information not available 05/05/2025 Has Tobacco Cessation Counseling Been Provided? Yes [email or web address] Information not available 05/05/2025 On What Date Was Tobacco Cessation Counseling Provided? 05/05/2025 [email or web address] Information not available 05/05/2025 How Many Years Have You Smoked Tobacco? 40 [email or web address] Information not available 05/05/2025 Do You Have Difficulty Walking Or Climbing Stairs? No [email or web address] Information not available 05/05/2025 Are You Currently In School? No [email or web address] Information not available 05/05/2025 Sex: Unknown Functional Status Question Answer Note LastModified by Organizat ion Details LastModified Time Do you use any illicit or recreational drugs? No [email or web address] Information not available 05/05/2025 Do you or have you ever used any other forms of tobacco or nicotine? No Information not available 05/05/2025 What is your level of alcohol consumption? None [email or web address] Information not available 05/05/2025 Are you currently employed? No [email or web address] Information not available 05/05/2025 Do you have transportation difficulties? No [email or web address] Information not available 05/05/2025 Are you able to walk? YESWOREST Information not available 05/05/2025 Do you have difficulty doing errands alone? No [email or web address] Information not available 05/05/2025 Are you able to care for yourself? Yes [email or web address] Information not available 05/05/2025 Do you have difficulty dressing or bathing? No [email or web address] Information not available 05/05/2025 What is your exercise level? None [email or web address] Information not available 05/05/2025 Mental Status Question Answer Note LastModified by Organizat ion Details LastModified Time Do you feel stressed (tense, restless, nervous, or anxious, or unable to sleep at night)? [id number] [email or web address] Information not available 05/05/2025 Do you have difficulty concentrating, remembering or making decisions? No [email or web address] Information no t available 05/05/2025 Family History Nothing Reported. Medical History No medical history recorded. Gynecological HistoryNo gynecological history recorded. Obstetrics History GPAL:G 0 P 0 0 0 0 Immunizations Vaccine Type Date Status Note Provider Nam e and Address Organization Details Recorded Time COVID-19, mRNA, LNP-S, PF, 100 mcg/0.5mL dose or 50 mcg/0.25mL dose 1 completed Hussain Card null, [place] - [facility] & [place] 05/05/2025 15:01:45 COVID-19 vaccine, vector-nr, rS-Ad26, PF, 0.5 mL 1 completed Hussain Card null, [place] - [facility] [place] 05/05/2025 15:01:45 COVID-19, mRNA, LNP-S, PF, 50 mcg/0.5 mL 4 completed Hussain Card null, [place] - [facility] [place] 05/05/2025 15:01:45 pneumococcal polysaccharide PPV23 5 completed Hussain Card null, [place] - [facility] [place] 05/05/2025 15:01:45 Influenza, split virus, trivalent, PF 4 completed Hussain Card null, [place] - [facility] [place] 05/05/2025 15:01:45 Influenza, split virus, quadrivalent, PF 0 completed Hussain Card null, [place] - [facility] [place] 05/05/2025 15:01:45 Influenza, split virus, quadrivalent, PF 2 completed Hussain Card null, [place] - [facility] [place] 05/05/2025 15:01:45 Influenza, split virus, quadrivalent, PF 5 completed Hussain Card null, [place] - [facility] [place] 05/05/2025 15:01:45 Influenza, split virus, quadrivalent, PF 8 completed Hussain Card null, [place] - [facility] [place] 05/05/2025 15:01:45 Past Encounters Encounter ID Performer Location Encounter Start Date Encounter Closed Date Diagnosis/Indication Diagnosis SNOMED-CT Code Diagnosis ICD10 Code Diagnosis Note [id number] CECIL WEEKS [facility] [place] [address] [facility] [id number] 05/05/2025 14:06:57 05/06/2025 09:24:24 Hyperthyroidism 48236722 E05.90 history of hyperthyro idawaiting lab resultsest ablishing baseline for ptcurrentl y on levothyrox ine from previous PCPwill reassess pending results Mixed anxi ety and depressive disorder 006688269 F41.8 pt wants behavioral health to followrefe rral sentreport s history of previously taking Valium and xanaxrepor ts that she has taken xanax for the last 35+ years Pancreas divisum [id number] 9 Q45.3 history of congenital pancreas malformati onawaiting lab resultsPE showed epigastric tenderness with rebound tenderness has seen Dr. Rubin Arenas s for GI issues at [facility] in [place] for last 25 yearsdue to transporta tion needs, [place] equ[place] referral for GI closer to homereferr al sent Prediabetes 337218343 R7 3.03 history of prediabete sawaiting lab results Screening for malignant neoplasm of lung 274711589 Z12.2 history of smokingqui t 5 years agosent order for LDCT Pain assoc iated with defecation 214446099 R19.8 PE showed epigastric pain with rebound tenderness reports pain with BM5-6 episodes of diarrheaCT scan orderedawa iting lab resultsf/u with office or ER if symptoms worsen or persist Hyperlipid emia screening 674261732 Z13.220 history of smokingest ablishing baseline for ptawaiting lab resultscur rently on a statin Screening for osteoporosis 947167204 Z13.820 establishi ng baseline for ptawaiting lab results Iron defic iency screening 069993555 Z13.0 establishi ng baseline for ptawaiting lab resultsrep orts B12 injections in past have helped her Essential hypertension 72121653 I10 recheck at next visit; will address if reading is high on next visitcurre ntly on metoprolol also follows cardiology Health Concerns Section Related Observation LastModified by Organization Detai ls LastModified Time None Recorded Concern Status LastModified by Organization Details LastModified Time None Recorded Advance Directives Directive N: Payers Insurance Date Sequence Insurance Name Policy Number Policy Ayala Covered Member ID Ayala Member ID Guarantor Name 05/05/2025 1 [employer] (MEDICARE REPLACEMENT/ ADVANTAGE - HMO) Andrew Carlson Chandler [id number] Andrew Carlson Chandler 05/05/2025 [employer] (MEDICARE REPLACEMENT/ ADVANTAGE - PPO) Andrew Carlson Chandler [id number] Andrew Aldo Chandler 05/05/2025 1 [employer] (PPO) Andrew Carlson Chandler [id number] Andrew Carlson Chandler 05/05/2025 2 MEDICAID-[facility] CHOICES - FFS/TRADITIO NAL Andrew Carlson Chandler [id number] Andrew Aldo Chandler Notes Date Note Type Note Provider Name [...] that she sees a GI doctor in [place], Dr. Rubin Kearney, at [facility] for the past 25 years. Reports that she wants to keep seeing him but also due to her current transportation situation has difficulty making it to [place] and would like to have someplace closer [...] throat, coughing, and muscular pain. CECIL WEEKS [address] [place] [address], [phone], [facility] & [place] 05/05/2025 17:11:46 OBGyn Episode No OBEpisode recorded.
[2025-05-25] MEDS: ONDANSETRON 4MG/2ML VIAL 4 MG IV (21:58)
[2025-05-25] MEDS: PANTOPRAZOLE 40MG VIAL 40 MG IV (21:58)
[2025-05-25] MEDS: MORPHINE 4MG/ML SYRINGE 4 MG IV (21:58)
--- NOTE | 2025-05-25 21:58 | HMH.EDGENADL ---
Discharge Plan Disposition Patient Disposition: Admitted Condition: Good Clinical Impressions Clinical Impression: UTI (urinary tract infection), Hemorrhoids, BRBPR (bright red blood per rectum), Abdominal cramping Discharge ED Provider: Grisel Worthington General Adult HPI General Chief complaint: Abdominal Pain Stated complaint: GI Bleed Time Seen by Provider: 05/25/25 21:27 Mode of Arrival: EMS Source of Information: Patient and EMS Description of Symptoms (Recalled from ER Triage Doc. by RN): Pt states that while using the bathroom, she had one episode of bright red blood whenever wiping. pt denies black tarry stool. pt c/o abd pain that feels like cramping. pt has hx of pancreatitis. pt reports taking Xarelo for afib. History of Present Illness HPI narrative: This patient is a 64-year-old female with a history of hemorrhoids requiring banding, hypertension, hyperlipidemia, TIA, diverticulosis, anxiety/depression, prior CVA, atrial fibrillation on Xarelto, CAD status post stenting, CHF, and prior bouts of pancreatitis presenting to the emergency department for evaluation with concern for lower abdominal cramping and bright red blood per rectum when wiping. She notes that this happened this evening. She denies any other concerns such as vomiting, melena, blood in the toilet, or blood in her underwear. She states that she only had bright red blood when she wiped twice this evening. She called EMS and arrives hemodynamically stable. She still is complaining of significant lower abdominal cramping at this time. Of note, she was admitted in October of last year with concern for bright red blood per rectum, at which point sigmoidectomy showed that she had hemorrhoids that were banded. She was discharged home in stable condition Related Data Home Medications ?Medication ?Instructions ?Recorded ?Confirmed trazodone 100 mg tablet 100 mg PO HS 08/22/24 05/12/25 rivaroxaban 20 mg tablet (Xarelto) 20 mg PO 05/12/25 05/12/25 Previous Rx's ?Medication ?Instructions ?Recorded ranolazine 500 mg tablet,extended 500 mg PO BID 30 days #60 tabs 11/19/24 release,12 hr atorvastatin 40 mg tablet 40 mg PO HS #90 tabs 02/07/25 levothyroxine 100 mcg tablet 100 mcg PO DAILYDM #90 tabs 02/15/25 albuterol sulfate 2.5 mg/3 mL 2.5 mg (3 mL) inhalation Q6H #180 02/16/25 (0.083 %) solution for nebulization mL aspirin 81 mg tablet,delayed 81 mg PO DAILY 30 days #30 tabs 02/19/25 release furosemide 20 mg tablet 40 mg (2 x 20 mg) PO DAILY 30 days 02/19/25 #60 tabs quetiapine 50 mg tablet 50 mg PO HS #30 tabs 03/14/25 pantoprazole 40 mg tablet,delayed 40 mg PO HS 30 days #30 tabs 04/06/25 release montelukast 10 mg tablet 10 mg PO HS #30 tabs 04/13/25 potassium chloride 10 mEq 10 meq PO DAILY #90 tabs 04/13/25 tablet,extended release duloxetine 60 mg capsule,delayed 60 mg PO BID 90 days #180 caps 04/18/25 release ferrous sulfate 325 mg (65 mg 325 mg PO BID #60 tabs 04/18/25 iron) tablet metformin 1,000 mg tablet 1,000 mg PO BIDWMEAL #60 tabs 04/18/25 gabapentin 600 mg tablet See Rx Instructions .Route 05/11/25 .COMPLEX #60 tabs metoprolol succinate 25 mg 25 mg PO DAILY #30 tabs 05/12/25 tablet,extended release 24 hr verapamil 120 mg 24 hr 120 mg PO DAILY #30 caps 05/12/25 capsule,extended release ropinirole 0.25 mg tablet See Rx Instructions .Route 05/19/25 .COMPLEX #30 tabs cefdinir 300 mg capsule 300 mg PO BID 10 days #20 caps 05/25/25 hydrocortisone acetate 25 mg 25 mg [place] DAILY PRN hemorrhoids #24 05/25/25 rectal suppository (Anusol-HC) ea ondansetron 4 mg disintegrating 4 mg PO Q8H PRN nausea and 05/25/25 tablet vomiting 4 days #12 tabs polyethylene glycol 3350 17 17 g PO DAILY PRN constiptation 05/25/25 gram/dose oral powder (Miralax) #510 grams Allergies Allergy/AdvReac Type Severity Reaction Status Date / Time codeine (CODEINE) Allergy Intermediate N/V Verified 05/12/25 14:21 ketorolac (KETOROLAC) Allergy Intermediate Hives Verified 05/12/25 14:21 meperidine (MEPERIDINE) Allergy Intermediate Hives Verified 05/12/25 14:21 tramadol (TRAMADOL) Allergy Intermediate Hives Verified 05/12/25 14:21 verapamil Allergy Mild Unknown Verified 05/12/25 14:21 allergy reaction ciprofloxacin AdvReac Severe Interacts Verified 05/12/25 14:21 with cymbalta PFSCOX BRANSON Disclaimer: The information contained in this section may have been updated after the patient was seen, as this information can be updated by other users. Medical History Multiple lung nodules on CT Pulmonary emphysema Hypocalcemia Hypokalemia Acidosis, lactic GI bleed Noncompliance with medication regimen Tobacco dependence in remission Pancreas divisum of [place] pancreas Encounter for pre-operative cardiovascular clearance Orthopnea CHF (congestive heart failure) Pancreatitis Nausea vomiting and diarrhea Exhausted vascular access Rib fractures Chronic hypoxemic respiratory failure Coronary artery disease COPD (chronic obstructive pulmonary disease) HLD (hyperlipidemia) Diabetes Anxiety and depression TIA (transient ischemic attack) History of stroke History of multiple cerebrovascular accidents (CVAs) History of class III angina pectoris Typical angina Dyspnea History of pancreatitis History of CVA (cerebrovascular accident) Surgical History History of biliary duct stent placement History of hysterectomy History of cholecystectomy History of coronary artery stent placement Family History Other Family history of cancer Family history of diabetes mellitus Social History Smoking Status: Never smoker second hand exposure: No alcohol intake: never counseling provided: none substance use type: marijuana and crack/cocaine current occupational status: other Travel in the last 8 weeks?: None household members: significant other housing: house marital status: single number of children: 2 current occupational exposures/hazards: No caffeine: Yes Have you lived/traveled outside [place] in past 30 days?: No Contact w/someone who lives/traveled outside [place] past 30 days?: No Exposure to someone with infectious disease in past 14 days?: No Do you have a fever (greater than 100.4 F or 38 C)?: No Have you tested positive for COVID-19?: No Exposed to someone with COVID-19 in past 14 days?: No Do you have a sore throat?: No Do you have a cough?: No Do you have any weakness?: No Do you have any diarrhea?: No Are you experiencing any unusual bleeding?: No Do you have any muscle aches/pain?: No Do you have any abdominal pain?: No Are you experiencing loss of taste or smell?: No Other Medical History Have you received the Flu Vaccine for this season: No Have you received the Pneumonia Vaccine: No ROS Obtained: Yes All systems reviewed & no additional complaints except as documented Physical Exam General General appearance: alert, in no apparent distress and obese Head Head exam: atraumatic and normocephalic Eye Eye exam: Present normal appearance, PERRL and EOMI ENT ENT exam: Present normal exam, normal oropharynx, mucous membranes moist and normal external ear exam Neck Neck exam: Present normal inspection, full ROM and trachea midline; Absent tenderness Chest Chest inspection: Present normal inspection and symmetric chest wall rise; Absent tenderness Respiratory Respiratory exam: Present normal lung sounds bilaterally; Absent respiratory distress, wheezes, stridor or accessory muscle use Cardiovascular Cardiovascular exam: Present regular rate and irregular rhythm Abdominal Exam Abdominal exam: Present soft and tenderness (Lower abdomen); Absent distention, guarding, rebound or rigidity Extremities Exam Extremities exam: Present normal inspection, full ROM and normal capillary refill; Absent tenderness or edema Back Exam Back exam: Present normal inspection and full ROM; Absent tenderness Neurological Exam Neurological exam: Present alert, oriented X3, CN II-XII intact and normal gait; Absent motor sensory deficit Psychiatric Psychiatric exam: Present normal affect and normal mood Skin Skin exam: Present warm and dry Medical Decision Making Medical Records Medical records reviewed: Yes I reviewed the patient's medical records. Screening: Per USPSTF and CDC recommendations, given the prevalence of disease in our region, it is our hospital?s policy to screen for HIV and viral Hepatitis for all patients aged 18 and over and those with ongoing risk factors. [place] Inquiry Pt receiving controlled substance: No Vital Signs: 05/25/25 20:53 05/25/25 22:03 05/25/25 22:49 Temperature 99 F Temperature Source Oral Pulse Rate 87 Pulse Rate [Left Radial] 104 H Pulse Rate [Orthostatic Lying] Pulse Rate [Orthostatic Sitting] Pulse Rate [Orthostatic Standing] Respiratory Rate 20 Blood Pressure 145/98 H Blood Pressure [Left Arm] 110/87 Blood Pressure [Orthostatic Lying Left Arm] Blood Pressure [Orthostatic Sitting Left Arm] Blood Pressure [Orthostatic Standing] Blood Pressure Mean 113 Blood Pressure Mean [Left Arm] 94 Blood Pressure Source Automatic Cuff Blood Pressure Source [Left Arm] Automatic Cuff 02 Sat by Pulse Oximetry 94 L 95 Oxygen Delivery Method Room Air Nasal Cannula Oxygen Flow Rate (LPM) 2 05/25/25 22:49 05/25/25 23:01 05/26/25 00:00 Temperature Temperature Source Pulse Rate 104 H 100 H Pulse Rate [Left Radial] Pulse Rate [Orthostatic Lying] 106 H Pulse Rate [Orthostatic Sitting] 96 H Pulse Rate [Orthostatic Standing] 98 H Respiratory Rate Blood Pressure 124/78 116/74 Blood Pressure [Left Arm] Blood Pressure [Orthostatic Lying Left Arm] 143/122 H Blood Pressure [Orthostatic Sitting Left Arm] 143/11 H Blood Pressure [Orthostatic Standing] 159/141 H Blood Pressure Mean 93 88 Blood Pressure Mean [Left Arm] Blood Pressure Source Blood Pressure Source [Left Arm] 02 Sat by Pulse Oximetry 95 97 Oxygen Delivery Method Nasal Cannula Nasal Cannula Oxygen Flow Rate (LPM) 2 2 Lab Data Lab results reviewed: Yes I reviewed the patient's lab results. Lab Results 05/25/25 20:56: WBC 9.6, RBC 4.05 L, Hgb 11.8 L, Hct 37.7, MCV 93.1, MCH 29.1, MCHC 31.3 L, RDW 15.6, Plt Count 305, MPV 11.1 H, Neut % (Auto) 58.3, Lymph % (Auto) 32.8, Bradley % (Auto) 5.8, Eos % (Auto) 2.4, Baso % (Auto) 0.4, Neut # (Auto) 5.6, Lymph # (Auto) 3.2, Bradley # (Auto) 0.6, Eos # (Auto) 0.2, Baso # (Auto) 0.0, PT 12.0, INR 1.09, APTT 25.3, Sodium 139, Potassium 4.4, Chloride 100, Carbon Dioxide 30, Anion Gap 13.4, BUN 18 H, Creatinine 1.00, Estimated Creat Clear 82, Estimated GFR 56 L, Est GFR ( Amer) 68, Glucose 129 H, Lactate 1.3, Calcium 9.4, Total Bilirubin 0.6, AST 18, ALT 12, Alkaline Phosphatase 97, Total Protein 7.3, Albumin 4.3, Globulin 3.0, Albumin/Globulin Ratio 1.4, Lipase 115 05/25/25 22:33: Urine Color Yellow, Urine Appearance Slightly cloudy, Urine pH 6.0, Ur Specific Mitchell <= 1.005, Urine Protein Negative, Urine Glucose (UA) Negative, Urine Ketones Negative, Urine Blood Trace-l, Urine Nitrate Negative, Urine Bilirubin Negative, Urine Urobilinogen 0.2, Ur Leukocyte Esterase Trace, Urine RBC 50-100, Urine WBC 50-100, Ur Squamous Epith Cells 20-50, Urine Bacteria 4+, Urine Yeast 1+ 05/25/25 20:56 05/25/25 20:56 Orders (Tests/Meds): ED MEDICATIONS Generic Name Dose Route Start Last Admin Trade Name Fretucker PRN Reason Stop Dose Admin Sodium Chloride 10 ml 05/25/25 21:50 Sodium Chloride 0.9% 10ml Vial IV 06/24/25 21:49 NEEDED PRN dilute protonix Discontinued Medications Generic Name Dose Route Start Last Admin Trade Name Adam PRN Reason Stop Dose Admin Dicyclomine HCl 20 mg 05/25/25 23:08 05/25/25 23:14 Dicyclomine 10mg Capsule PO 05/25/25 23:09 20 mg ONCE ONE Administration Fluconazole 200 mg 05/25/25 23:17 05/25/25 23:46 Fluconazole 200mg Tablet PO 05/25/25 23:18 200 mg ONCE ONE Administration Ceftriaxone Sodium 2 gm/ 100 mls @ 200 mls/hr 05/25/25 23:16 05/25/25 23:40 Sodium Chloride IV 05/25/25 23:45 200 mls/hr ONCE ONE Administration Iopamidol 80 ml 05/25/25 21:23 05/25/25 21:24 Iopamidol-370 (76%);100ml Bottle IV 05/25/25 21:24 80 ml ONCE ONE Administration Metoclopramide HCl 10 mg 05/25/25 23:31 05/25/25 23:47 Metoclopramide Hcl 10mg/2ml Vial IVP 05/25/25 23:32 10 mg ONCE ONE Administration Morphine Sulfate 4 mg 05/25/25 21:50 05/25/25 21:58 Morphine 4mg/Ml Syringe IV 05/25/25 21:51 4 mg ONCE ONE Administration Ondansetron HCl 4 mg 05/25/25 21:50 05/25/25 21:58 Ondansetron 4mg/2ml Vial IV 05/25/25 21:51 4 mg ONCE ONE Administration Pantoprazole Sodium 40 mg 05/25/25 21:50 05/25/25 21:58 Pantoprazole 40mg Vial IV 05/25/25 21:51 40 mg ONCE ONE Administration Sodium Chloride 50 ml 05/25/25 21:23 05/25/25 21:24 0.9 % Sodium Chloride 50 Ml Vial IV 05/25/25 21:24 50 ml ONCE ONE Administration Sodium Chloride 10 ml 05/25/25 21:23 05/25/25 21:24 Sodium Chloride 0.9% 10ml Syr (Rad Only) IV 05/25/25 21:24 10 ml ONCE ONE Administration ORDERS Category Date Time Status CT angio abd/pel - GI Bleed Stat Cat Scan 05/25/25 20:51 Completed Complete Blood Count Auto Diff Stat Lab 05/25/25 20:56 Completed Comprehensive Metabolic Panel Stat Lab 05/25/25 20:56 Completed Lactic Acid Stat Lab 05/25/25 20:56 Completed Lipase Stat Lab 05/25/25 20:56 Completed PT INR [Prothrombin Time INR] Stat Lab 05/25/25 20:56 Completed PTT [Activated Partial Thrombo Time] Stat Lab 05/25/25 20:56 Completed UA [Urinalysis and Microscopic] Stat Lab 05/25/25 22:33 Completed UA [Urinalysis and Microscopic] Stat Lab 05/25/25 23:09 Ordered Urine Culture Stat Micro 05/25/25 22:33 Received Urine Culture(cathed specimen) Stat Micro 05/25/25 23:09 Ordered Medical Decision Narrative: In summary, this patient is a 64-year-old female presenting to the Emergency Department for evaluation of bright red blood per rectum when she wipes. Differential diagnoses considered include but are not limited to hemorrhoidal bleed, anal fissure, diverticular bleed. Ruling out the most morbid conditions drove assessment. It should be noted patient's history includes extensive cardiovascular history, hypertension, hyperlipidemia, obesity as detailed in HPI which may or may not be at goal therapy. This complicates all aspects of care by increasing patient's risk for morbidity. I reviewed patient's past medical records and noted evaluations by GI with sigmoidectomy requiring hemorrhoid banding as detailed in HPI. On exam, the patient is sitting upright in no acute distress with reassuring vitals on cardiac telemetry. She is hemodynamically stable. She has some mild lower abdominal tenderness but no rebound, guarding, or rigidity. Digital rectal exam demonstrates brown stool with no blood, no melena at this time. Workup included CBC, CMP, lipase, lactic acid, urinalysis, coags, CTA GI bleed protocol. She was given IV morphine, Zofran, PPI for symptomatic improvement. I independently interpreted CT scan prior to the radiologist read and noted no obvious acute contrast extravasation, no diverticulitis or other acute colonic inflammation. Please see their read for final interpretation. They noted she does have hemorrhoids. Labs were obtained that demonstrated reassuring CBC with actually improved anemia from prior lab evaluations. Chemistry is reassuring with negative lactic acid, no ALYSE, reassuring liver enzymes. Urinalysis is grossly contaminated with squamous cells but does have significant mount of white blood cells, bacteria, and yeast. Patient refuses a cath specimen to get a clean urine specimen for accurate analysis, so I am electing to treat at this time in the setting of pelvic pain. I administered IV Rocephin, and given 1+ yeast I gave her oral fluconazole.. On reassessment, patient had no improvement after administration of interventions above. She continues to cry and complain of severe pain. I tried Bentyl and Reglan in hopes of getting the patient home, but she continues to cry in significant pain.. She states it is 6 out of 10. She states she does not feel comfortable going home. I feel she likely has social reasons for not wanting to go home. Ultimately, she continues to complain of severe pelvic pain. Given this, I had an interactive discussion with the hospitalist who admitted the patient in stable condition Critical Care Critical Care Time Critical Care Time: No
[2025-05-25 22:03] VITALS: BP 145/98; PULSE 87; O2SAT 95
--- NOTE | 2025-05-25 22:18 | PC.NURSE ---
pt aware of need for urine sample, pt stated that she was unable to void at this time.
--- NOTE | 2025-05-25 22:22 | PC.NURSE ---
pt still unable to void at this time. pt aware of pending test, pt refuses straight cath at this time
--- NOTE | 2025-05-25 22:27 | PC.NURSE ---
pt ambulatory with slow steady gait to restroom to attempt to provide urine for testing.
[2025-05-25 22:36] LABS: Microscopic, Urine URINE MICROSCOPIC (MICROSCOPIC)
[2025-05-25 22:38] LABS: Bilirubin,Urine Negative (Negative); Blood, Urine TRACE-L (Negative); Color,Urine YELLOW (Yellow); Glucose,Urine (UA) Negative (Negative); Ketones,Urine Negative (Negative); Leukocyte Esterase,Urine TRACE (Negative); Nitrate,Urine Negative (Negative); Protein,Urine Negative (Negative); Specific Gravity, Urine <= 1.005 (1.005-1.030); Urobilinogen,Urine 0.2 EU/dl (0.2)
[2025-05-25 22:39] LABS: Appearance,Urine Slightly Cloudy (Clear)
[2025-05-25 22:49] VITALS: BP 143/11; BP 143/122; BP 159/141; PULSE 106; PULSE 96; PULSE 98
[2025-05-25 23:01] VITALS: BP 124/78; PULSE 104; O2SAT 95
[2025-05-25 23:04] LABS: Bacteria,Urine 4+ /lpf; RBC,Urine 50-100 #/hpf (0-3); Squamous Epithelial Cell,Urine 20-50 #/hpf (0-5); WBC,Urine 50-100 #/hpf (0-3); Yeast,Urine 1+ /lpf
[2025-05-25] MEDS: DICYCLOMINE 10MG CAPSULE 20 MG PO (23:14)
[2025-05-25] MEDS: CEFTRIAXONE SODIUM 2 GM in 0.9 % SODIUM CHLORIDE 100 ML IV (23:40)
[2025-05-25] MEDS: FLUCONAZOLE 200MG TABLET 200 MG PO (23:46)
[2025-05-25] MEDS: METOCLOPRAMIDE HCL 10MG/2ML VIAL 10 MG IVP (23:47)
[2025-05-26] VITALS: BP 116/74; PULSE 100; O2SAT 97
--- NOTE | 2025-05-26 00:02 | PC.NURSE ---
pt aware of need for straight cath urine sample. pt refused at this time.
[2025-05-26 00:26] VITALS: BP 116/74; PULSE 95; RESP 20; TEMP 37.1
--- NOTE | 2025-05-26 00:26 | PC.NURSE ---
Report called to [facility], 2nd floor RN
--- NOTE | 2025-05-26 00:52 | PC.NURSE ---
Patient arrived to floor via wheelchair from ED at 00:50.
[2025-05-26 00:59] VITALS: BP 130/96; PULSE 68; TEMP 37; O2SAT 93; BMI 33.8
--- NOTE | 2025-05-26 01:24 | P.HP_ITS ---
<Statement entered by Chandler Cody MD - 05/26/25 16:00> Rounded on patient after nurse practitioner. Personally examined and interviewed patient. Agree with exam findings and care plan as documented. History of Present Illness *Admission Date: 05/26/25 *Reason for visit:: Rectal bleeding *History of present illness: Ms. Arteaga is a 64-year-old female presents to ER for evaluation of rectal bleeding. Patient has a past medical history of diabetes mellitus, hypertension, hyperlipidemia, COPD, A-fib, hypothyroidism, chronic pancreatitis, CHF, pulmonary emphysema, and hemorrhoids. Patient reports bright red blood in her stools. She states this has happened before and she thought it was either an internal hemorrhoid rupture or fissure. She states she did have to go to the OR at one point and have hemorrhoids cauterized. She reports cramping abdominal pain that is exacerbated by walking. She reports the pain is a 6 out of 10. She reports nausea but denies vomiting. She reports lightheadedness due to starting new beta-clifton. She denies fever/chills, cough, congestion, runny nose, chest pain, emesis, headache, dizziness, or syncope. [facility] Disclaimer: The information contained in this section may have been updated after the patient was seen, as this information can be updated by other users. Medical History Multiple lung nodules on CT Pulmonary emphysema Hypocalcemia Hypokalemia Acidosis, lactic GI bleed Noncompliance with medication regimen Tobacco dependence in remission Pancreas divisum of agdaagux pancreas Encounter for pre-operative cardiovascular clearance Orthopnea CHF (congestive heart failure) Pancreatitis Nausea vomiting and diarrhea Exhausted vascular access Rib fractures Chronic hypoxemic respiratory failure Coronary artery disease COPD (chronic obstructive pulmonary disease) HLD (hyperlipidemia) Diabetes Anxiety and depression TIA (transient ischemic attack) History of stroke History of multiple cerebrovascular accidents (CVAs) History of class III angina pectoris Typical angina Dyspnea History of pancreatitis History of CVA (cerebrovascular accident) Surgical History History of biliary duct stent placement History of hysterectomy History of cholecystectomy History of coronary artery stent placement Family History Other Family history of cancer Family history of diabetes mellitus Social History Smoking Status: Never smoker second hand exposure: No alcohol intake: never counseling provided: none substance use type: marijuana and crack/cocaine current occupational status: other Travel in the last 8 weeks?: None household members: significant other housing: house marital status: single number of children: 2 current occupational exposures/hazards: No caffeine: Yes Have you lived/traveled outside [place] in past 30 days?: No Contact w/someone who lives/traveled outside [place] past 30 days?: No Exposure to someone with infectious disease in past 14 days?: No Do you have a fever (greater than 100.4 F or 38 C)?: No Have you tested positive for COVID-19?: No Exposed to someone with COVID-19 in past 14 days?: No Do you have a sore throat?: No Do you have a cough?: No Do you have any weakness?: No Do you have any diarrhea?: No Are you experiencing any unusual bleeding?: No Do you have any muscle aches/pain?: No Do you have any abdominal pain?: No Are you experiencing loss of taste or smell?: No Other Medical History Have you received the Flu Vaccine for this season: No Have you received the Pneumonia Vaccine: No Review of Systems Constitutional Constitutional: Denies chills, Denies fever(s) and Denies headache(s) ENT Ears, Nose, Mouth, and Throat: Denies dizziness and Denies headache(s) *Cardiovascular Cardiovascular: Denies chest pain and Reports dyspnea (chronic) *Respiratory Respiratory: Denies cough and Reports dyspnea (chronic) *Gastrointestinal Gastrointestinal: Denies abdominal pain, Denies constipation, Reports cramping, Reports hematochezia, Reports nausea and Denies vomiting *Genitourinary Genitourinary: Reports pelvic pain *Musculoskeletal Musculoskeletal: Reports system reviewed and no additional complaints, except as documented *Neurologic Neurologic: Denies dizziness and Denies headache(s) Meds Home Medications and Allergies Home Medications ?Medication ?Instructions ?Recorded ?Confirmed ?Type trazodone 100 mg tablet 100 mg PO HS 08/22/24 History ranolazine 500 mg tablet,extended 500 mg PO BID 30 day s #60 tabs 11/19/24 05/26/25 Rx release,12 hr atorvastatin 40 mg tablet 40 mg PO HS #90 tabs 5 05/26/25 Rx levothyroxine 100 mcg tablet 100 mcg PO DAILYDM #90 ta bs 02/15/25 05/26/25 Rx albuterol sulfate 2.5 mg/3 mL 2.5 mg (3 mL) inhalation Q6H #180 02/16/25 05/26/25 Rx (0.083 %) solution for nebulization mL aspirin 81 mg tablet,delayed 81 mg PO DAILY 30 days #3 0 tabs 02/19/25 05/26/25 Rx release furosemide 20 mg tablet 40 mg (2 x 20 mg) PO DAILY 3 0 days 02/19/25 05/26/25 Rx #60 tabs quetiapine 50 mg tablet 50 mg PO HS #30 tabs 5 05/26/25 Rx pantoprazole 40 mg tablet,delayed 40 mg PO HS 30 days #30 tabs 04/06/25 05/26/25 Rx release montelukast 10 mg tablet 10 mg PO HS #30 tabs 5 05/26/25 Rx potassium chloride 10 mEq 10 meq PO DAILY #90 tabs 05/26/25 Rx tablet,extended release duloxetine 60 mg capsule,delayed 60 mg PO BID 90 days #180 caps 04/18/25 05/26/25 Rx release ferrous sulfate 325 mg (65 mg 325 mg PO BID #60 tabs 0 04/18/25 05/26/25 Rx iron) tablet metformin 1,000 mg tablet 1,000 mg PO BIDWMEAL #60 tab s 04/18/25 05/26/25 Rx rivaroxaban 20 mg tablet (Xarelto) 20 mg PO HS 5 05/26/25 History verapamil 120 mg 24 hr 120 mg PO DAILY #30 caps 11/2405/26/25 Rx capsule,extended release cefdinir 300 mg capsule 300 mg PO BID 10 days #20 ca ps 05/25/25 Rx hydrocortisone acetate 25 mg 25 mg IA DAILY PRN hemorr hoids #24 05/25/25 Rx rectal suppository (Anusol-HC) ea ondansetron 4 mg disintegrating 4 mg PO Q8H PRN nausea and 05/25/25 Rx tablet vomiting 4 days #12 tabs polyethylene glycol 3350 17 17 g PO DAILY PRN constipt ation 05/25/25 Rx gram/dose oral powder (Miralax) #510 grams alprazolam 0.5 mg tablet 1 mg PO TID PRN Anxiety 05/0205/26/25 History cholecalciferol (vitamin D3) 1,250 1,250 mcg PO WEEKLY 05/26/25 05/26/25 History mcg (50,000 unit) capsule gabapentin 600 mg tablet 600 mg PO BID 05/26/2505/26 History magnesium oxide 400 mg (241.3 mg 400 mg PO HS 05/26/25 05/26/25 History magnesium) tablet metoprolol succinate 25 mg 12.5 mg PO DAILY 05/26/25 0 05/26/25 History tablet,extended release 24 hr promethazine 12.5 mg tablet 12.5 mg PO Q6HP PRN Nausea And 05/26/25 05/26/25 History Vomiting ropinirole 0.25 mg tablet 0.25 mg PO HS 05/26/2505/26 History New Prescriptions to Start Prescriptions: cefdinir Grisel Worthington hydrocortisone acetate [Anusol-HC] Grisel Worthington ondansetron Grisel Worthington polyethylene glycol 3350 [Miralax] Grisel Worthington Allergies Allergy/AdvReac Type Severity Reaction Status Date / Time codeine (CODEINE) Allergy Intermediate N/V Verified 05/12/25 14:21 ketorolac (KETOROLAC) Allergy Intermediate Hives Verified 05/12/25 14:21 meperidine (MEPERIDINE) Allergy Intermediate Hives Verified 05/12/25 14:21 tramadol (TRAMADOL) Allergy Intermediate Hives Verified 05/12/25 14:21 verapamil Allergy Mild Unknown Verified 05/12/25 14:21 allergy reaction ciprofloxacin AdvReac Severe Interacts Verified 05/12/25 14:21 with cymbalta Exam Data for Last 24 hours Vital signs and Labs for Last 24 Hours: Temp Pulse Resp BP Pulse Ox O2 Del Method O2 Flow Rate 98.6 F 68 20 130/96 H 93 L Nasal Cannula 2 05/26/25 00:59 05/26/25 00:59 05/26/25 00:26 05/26/25 00:59 05/26/25 00:59 05/26/25 00:59 05/26/25 00:59 Laboratory Results - last 24 hr 05/25/25 20:56: WBC 9.6, RBC 4.05 L, Hgb 11.8 L, Hct 37.7, MCV 93.1, MCH 29.1, MCHC 31.3 L, RDW 15.6, Plt Count 305, MPV 11.1 H, Neut % (Auto) 58.3, Lymph % (Auto) 32.8, [place] % (Auto) 5.8, Eos % (Auto) 2.4, Baso % (Auto) 0.4, Neut # (Auto) 5.6, Lymph # (Auto) 3.2, [place] # (Auto) 0.6, Eos # (Auto) 0.2, Baso # (Auto) 0.0, PT 12.0, INR 1.09, APTT 25.3, Sodium 139, Potassium 4.4, Chloride 100, Carbon Dioxide 30, Anion Gap 13.4, BUN 18 H, Creatinine 1.00, Estimated Cr eat Clear 82, Estimated GFR 56 L, Est GFR ( Amer) 68, Glucose 129 H, Lactate 1.3, Calcium 9.4, Total Bilirubin 0.6, AST 18, ALT 12, Alkaline Phosph atase 97, Total Protein 7.3, Albumin 4.3, Globulin 3.0, Albumin/Globulin Ratio 1.4, Lipase 115 05/25/25 22:33: Urine Color Yellow, Urine Appearance Slightly cloudy, Urine pH 6.0, Ur Specific [place] <= 1.005, Urine Protein Negative, Urine Glucose (UA) Negative, Urine Ketones Negative, Urine Blood Trace-l, Urine Nitrate Negative, Urine Bilirubin Negative, Urine Urobilinogen 0.2, Ur Leukocyte Esterase Trace, Urine RBC 50-100, Urine WBC 50-100, Ur Squamous Epith Cells 20-50, Urine Bacteria 4+, Urine Yeast 1+ I & O for Last 24 hours: Intake & Output 05/23/25 05/24/25 05/25/25 05/26/25 23:59 23:59 23:59 23:59 Weight 91.626 kg 95.164 kg *Routine HEENT Exam Head: Present normocephalic and atraumatic Eye: Present EOMI and PERRL ENT: Present mucous membranes moist and oropharynx clear *Routine Neck Exam Neck: Present supple and full ROM *Routine Respiratory Exam Respiratory: Present wheezes (expiratory), normal respiratory effort and symmetric chest movement; Absent respiratory distress *Routine Cardiovascular Exam Cardiovascular: Present RRR, Normal S1 and Normal S2 *Routine Abdominal Exam Abdominal: Present soft and normoactive bowel sounds; Absent tenderness or distended *Routine Rectal Exam Rectal:: deferred *Routine Genitalia Exam Genitalia:: deferred *Routine Extremities Exam Extremities: Present full ROM, pulses intact and normal capillary refill *Routine Skin Exam Skin: Present intact, dry and warm *Routine Neurological Exam Neurological: Present alert, oriented X3 and CN II-XII intact Assessment and Plan *Assessment and plan (1) Abdominal cramping: Status: Acute Category: Medical Code(s): R10.9 - Unspecified abdominal pain Plan: Dicyclomine 10 mg 3 times daily [place] 5/325 mg 1 tab p.o. every 4 hours as needed for moderate pain (2) BRBPR (bright red blood per rectum): Status: Acute Category: Medical Code(s): K62.5 - Hemorrhage of anus and rectum Plan: Hemoglobin 11.8/hematocrit 37.7 Monitor H&H (3) Hemorrhoids: Status: Acute Category: Medical Code(s): K64.9 - Unspecified hemorrhoids Plan: Consider outpatient consult with general surgery Monitor H&H Encouraged high-fiber diet Patient not complaining of any rectal pain (4) UTI (urinary tract infection): Status: Acute Category: Medical Code(s): N39.0 - Urinary tract infection, site not specified Plan: Patient received Rocephin 1 g in the ER Urine specimen contaminated Repeat urine specimen with catheterized sample Follow urine culture and add antibiotics if indicated (5) COPD (chronic obstructive pulmonary disease): Status: Chronic Qualifiers: COPD type: unspecified COPD Qualified Code(s): J44.9 - Chronic obstructive pulmonary disease, unspecified Category: Medical Code(s): J44.9 - Chronic obstructive pulmonary disease, unspecified Plan: Continue breathing treatments as needed Continue supplemental oxygen as needed to maintain SpO2 88 to 92% (6) Diabetes mellitus: Status: Chronic Qualifiers: Diabetes mellitus type: type 2 Diabetes mellitus [facility] insulin use: 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
[2025-05-26] MEDS: MAGNESIUM OXIDE 400MG TABLET 400 MG PO (02:45)
[2025-05-26] MEDS: FERROUS SULFATE 325MG TABLET 325 MG PO ×2 (02:45→08:42)
[2025-05-26] MEDS: RANOLAZINE 500MG ER TABLET 500 MG PO (02:45)
[2025-05-26] MEDS: PATIENT'S OWN HOME MEDICATION (Rivaroxaban [Xarelto] 20 mg tablet) 20 EACH PO (02:45)
[2025-05-26] MEDS: GABAPENTIN 600MG TABLET 600 MG PO (02:45)
[2025-05-26] MEDS: ATORVASTATIN 40MG TABLET 40 MG PO (02:45)
[2025-05-26] MEDS: ROPINIROLE HCL 0.25 MG TABLET PO (02:45)
[2025-05-26] MEDS: PATIENT'S OWN HOME MEDICATION (Quetiapine 50 mg tablet) 50 EACH PO (02:45)
[2025-05-26] MEDS: HYDROCODONE/APAP 5/325 MG TABLET 1 TAB PO (02:50)
[2025-05-26] MEDS: MONTELUKAST SODIUM 10MG TAB 10 MG PO (02:50)
[2025-05-26] MEDS: PANTOPRAZOLE 40MG TABLET 40 MG PO (02:50)
[2025-05-26] MEDS: ONDANSETRON 4MG/2ML VIAL 4 MG IV (02:50)
[2025-05-26 04:00] VITALS: BP 111/58; PULSE 98; RESP 17; TEMP 36.5; O2SAT 92; BMI 33.7
--- NOTE | 2025-05-26 04:32 | PC.NURSE ---
Blue bags and trashes were taken out at this time 0432. Patient's call light is within reach and pt does not need anything
[2025-05-26 05:08] LABS: Basophils % 0.5 % (0.1-2.0); Eosinophils # 0.2 Kmm3 (0.0-0.4); Eosinophils % 2.6 % (0.1-12.0); Hematocrit 33.1 % (37.0-47.0); Immature Granulocytes # 0.04 10^3uL; Immature Granulocytes % 0.5 %; Lymphocytes # 2.6 K/mm3 (0.7-4.5); Lymphocytes % 30.7 % (10-50); Mean Corpuscular HGB Conc 30.8 g/dL (31.8-35.4); Mean Corpuscular Hemoglobin 28.9 pg (27.0-31.2); Mean Corpuscular Volume 93.8 fl (81-99); Mean Platelet Volume 10.7 fl (7.4-10.4); Monocytes # 0.6 K/mm3 (0.1-1.0); Monocytes % 6.6 % (1.7-9.3); Neutrophils # 5.1 K/mm3 (1.8-7.8); Neutrophils % 59.1 % (37.0-80.0); Nucleated Red Blood Cells # 0 10^3/uL; Nucleated Red Blood Cells % 0 %; Platelet Count 235 K/mm3 (142-424); Red Blood Count 3.53 M/mm3 (4.20-5.40); Red Cell Distribution Width 15.5 % (11.5-17.5); Red Cell Distribution Width-SD 52.8 fL; White Blood Count 8.5 K/mm3 (4.8-10.8)
[2025-05-26 05:12] LABS: Hemoglobin 10.4 g/dL (12.2-16.2)
[2025-05-26 05:18] LABS: Chloride 101 mmol/L (98-107); Potassium 3.4 mmoL/L (3.5-5.1); Sodium 139 mmol/L (136-145)
[2025-05-26 05:21] LABS: Anion Gap 11.4 mEq/L (5-15); Blood Urea Nitrogen 15 mg/dl (7-17); Carbon Dioxide 30 mmol/L (22.0-30.0); Creatinine Clearance Estimated 85 mL/min (50-200); Estimated Glomerular Filt Rate 63 ml/min (>60); GFR (African American) 76 ML/MIN (>60); Glucose 118 mg/dl (74-100)
[2025-05-26 05:30] LABS: POC Glucose,Bedside 106 (70-110)
[2025-05-26 05:47] LABS: Microscopic,Cath URINE MICROSCOPIC (MICROSCOPIC)
[2025-05-26 05:50] LABS: Appearance,Urine/Cath CLEAR (Clear); Bilirubin,Cath Negative (Negative); Blood, Urine/Cath Negative (Negative); Color,Urine/Cath YELLOW (Yellow); Glucose,Urine/Cath (UA) Negative (Negative); Ketones,Urine/Cath Negative (Negative); Leukocyte Esterase,Cath Negative (Negative); Nitrate,Cath Negative (Negative); Protein,Urine/Cath Negative (Negative); Specific Gravity, Urine/Cath <= 1.005 (1.005-1.030); Urobilinogen,Cath 0.2 EU/dl (0.2)
[2025-05-26 06:02] LABS: Bacteria,Urine/Cath TRACE /lpf
[2025-05-26 06:03] LABS: WBC,Urine/Cath Occasional #/hpf (0-3)
--- NOTE | 2025-05-26 06:32 | PC.NURSE ---
Ice filled and table is wiped. call light within reach, patient does not need anything at this time. [id number]
[2025-05-26 08:00] VITALS: BP 98/72; PULSE 89; RESP 17; TEMP 36.5; O2SAT 90
--- NOTE | 2025-05-26 08:09 | HMH.PHAINT1 ---
Pharmacy Intervention Comments: HOME MEDICATION LIST VERIFIED USING LIST FROM OUTPATIENT PHARMACY
[2025-05-26] MEDS: POTASSIUM CHLORIDE 20MEQ TAB 40 MEQ PO (08:39)
[2025-05-26] MEDS: DULOXETINE 30MG CAPSULE.DR 60 MG PO (08:41)
[2025-05-26] MEDS: VERAPAMIL SR 120MG TABLET 120 MG PO (08:43)
[2025-05-26] MEDS: LEVOTHYROXINE 100MCG (0.1MG) TAB 100 MCG PO (08:43)
[2025-05-26] MEDS: DOXYLAMINE 10MG/PYRIDOXINE 10MG TABLET 1 TAB PO (08:43)
[2025-05-26] MEDS: ASPIRIN EC 81MG TABLET 81 MG PO (08:43)
[2025-05-26] MEDS: FUROSEMIDE 40 MG TABLET PO (08:43)
[2025-05-26] MEDS: POTASSIUM CHLORIDE 10MEQ TABLET.ER 10 MEQ PO (08:44)
[2025-05-26 12:07] LABS: POC Glucose,Bedside 137 (70-110)
--- NOTE | 2025-05-26 13:17 | EXP.DC.SUM ---
General Admission date:: 05/26/25 Discharge date: 05/26/25 HPI HPI HPI: Ms. Arteaga is a 64-year-old female presents to ER for evaluation of rectal bleeding. Patient has a past medical history of diabetes mellitus, hypertension, hyperlipidemia, COPD, A-fib, hypothyroidism, chronic pancreatitis, CHF, pulmonary emphysema, and hemorrhoids. Patient reports bright red blood in her stools. She states this has happened before and she thought it was either an internal hemorrhoid rupture or fissure. She states she did have to go to the OR at one point and have hemorrhoids cauterized. She reports cramping abdominal pain that is exacerbated by walking. She reports the pain is a 6 out of 10. She reports nausea but denies vomiting. She reports lightheadedness due to starting new beta-clifton. She denies fever/chills, cough, congestion, runny nose, chest pain, emesis, headache, dizziness, or syncope. Hospital Course Hospital Course Hospital Course: 64-year-old female with history of chronic respiratory failure on 2 L, neuropathy, hypertension, HFpEF. Presented with abdominal pain. Also had some bright red blood per rectum. Previous admission for similar symptoms, scope found bleeding hemorrhoids. Hemorrhoids were banded. Hemoglobin remained stable during this admission. Recommend follow-up with GI as an outpatient for further evaluation of hemorrhoids. Urine culture obtained along with urinalysis concerning for UTI. Patient's pain doing better by morning and stable on baseline oxygen. Urine suggestive of UTI. Initiated on ceftriaxone. White count remained stable at 8.5 on morning of discharge. Discharge home with close follow-up with PCP for reevaluation. Urine culture still pending at discharge. Resume home meds at discharge. Exam Data for Last 24 hours Vital signs and Labs for Last 24 Hours: Temp Pulse Resp BP Pulse Ox O2 Del Method O2 Flow Rate 97.7 F 89 17 98/72 L 90 L Room Air 2 05/26/25 08:00 05/26/25 08:00 05/26/25 08:00 05/26/25 08:00 05/26/25 08:00 05/26/25 11:00 05/26/25 08:00 Laboratory Results - last 24 hr 05/25/25 20:56: WBC 9.6, RBC 4.05 L, Hgb 11.8 L, Hct 37.7, MCV 93.1, MCH 29.1, MCHC 31.3 L, RDW 15.6, Plt Count 305, MPV 11.1 H, Neut % (Auto) 58.3, Lymph % (Auto) 32.8, Ceiba % (Auto) 5.8, Eos % (Auto) 2.4, Baso % (Auto) 0.4, Neut # (Auto) 5.6, Lymph # (Auto) 3.2, Ceiba # (Auto) 0.6, Eos # (Auto) 0.2, Baso # (Auto) 0.0, PT 12.0, INR 1.09, APTT 25.3, Sodium 139, Potassium 4.4, Chloride 100, Carbon Dioxide 30, Anion Gap 13.4, BUN 18 H, Creatinine 1.00, Estimated Creat Clear 82, Estimated GFR 56 L, Est GFR ( Amer) 68, Glucose 129 H, Lactate 1.3, Calcium 9.4, Total Bilirubin 0.6, AST 18, ALT 12, Alkaline Phosphatase 97, Total Protein 7.3, Albumin 4.3, Globulin 3.0, Albumin/Globulin Ratio 1.4, Lipase 115 05/25/25 22:33: Urine Color Yellow, Urine Appearance Slightly cloudy, Urine pH 6.0, Ur Specific Lincoln <= 1.005, Urine Protein Negative, Urine Glucose (UA) Negative, Urine Ketones Negative, Urine Blood Trace-l, Urine Nitrate Negative, Urine Bilirubin Negative, Urine Urobilinogen 0.2, Ur Leukocyte Esterase Trace, Urine RBC 50-100, Urine WBC 50-100, Ur Squamous Epith Cells 20-50, Urine Bacteria 4+, Urine Yeast 1+ 05/26/25 05:01: WBC 8.5, RBC 3.53 L, Hgb 10.4 L D, Hct 33.1 L, MCV 93.8, MCH 28.9, MCHC 30.8 L, RDW 15.5, Plt Count 235, MPV 10.7 H, Neut % (Auto) 59.1, Lymph % (Auto) 30.7, Ceiba % (Auto) 6.6, Eos % (Auto) 2.6, Baso % (Auto) 0.5, Neut # (Auto) 5.1, Lymph # (Auto) 2.6, Ceiba # (Auto) 0.6, Eos # (Auto) 0.2, Baso # (Auto) 0.0, Sodium 139, Potassium 3.4 L D, Chloride 101, Carbon Dioxide 30, Anion Gap 11.4, BUN 15, Creatinine 0.90, Estimated Creat Clear 85, Estimated GFR 63, Est GFR ( Amer) 76, Glucose 118 H, Calcium 8.0 L 05/26/25 05:22: POC Glucose 106 05/26/25 05:38: Urine Color Yellow, Urine Appearance Clear, Urine pH 6.0, Ur Specific Lincoln <= 1.005, Urine Protein Negative, Urine Glucose (UA) Negative, Urine Ketones Negative, Urine Blood Negative, Urine Nitrate Negative, Urine Bilirubin Negative, Urine Urobilinogen 0.2, Ur Leukocyte Esterase Negative, Urine RBC None, Urine WBC Occasional, Ur Squamous Epith Cells None, Urine Bacteria Trace 05/26/25 11:48: POC Glucose 137 H I & O for Last 24 hours: Intake & Output 05/23/25 05/24/25 05/25/25 05/26/25 23:59 23:59 23:59 23:59 Intake Total 480 / 480 Balance 480 / 480 Weight 91.626 kg 95.164 kg Constitutional Constitutional: no acute distress, obese, chronically ill appearing and cooperative *Routine HEENT Exam Head: Present normocephalic Eye: Present EOMI and PERRL ENT: Present mucous membranes moist *Routine Neck Exam Neck: Present supple; Absent lymphadenopathy *Routine Respiratory Exam Respiratory: Present prolonged expiratory phase and wheezes; Absent rhonchi or crackles *Routine Cardiovascular Exam Cardiovascular: Present RRR *Routine Abdominal Exam Abdominal: Present soft, normoactive bowel sounds and tenderness (mild lower abdomen) *Routine Rectal Exam Patient deferred: visual exam *Routine Exam Patient deferred: external exam *Routine Extremities Exam Extremities: Absent cyanosis, clubbing or edema *Routine Skin Exam Skin: Present warm; Absent rash *Routine Neurological Exam Neurological: Present alert, oriented X3 and moving all extremities; Absent altered mental status Results Data Completed and Pending Labs on day of discharge: Labs from last 24 hours 05/26/25 05/26/25 05/26/25 11:48 05:38 05:22 WBC RBC Hgb Hct MCV MCH MCHC RDW Plt Count MPV Neut % (Auto) Lymph % (Auto) Ceiba % (Auto) Eos % (Auto) Baso % (Auto) Neut # (Auto) Lymph # (Auto) Ceiba # (Auto) Eos # (Auto) Baso # (Auto) PT INR APTT Sodium Potassium Chloride Carbon Dioxide Anion Gap BUN Creatinine Estimated Creat Clear Estimated GFR Est GFR ( Amer) Glucose POC Glucose 137 H 106 Lactate Calcium Total Bilirubin AST ALT Alkaline Phosphatase Total Protein Albumin Globulin Albumin/Globulin Ratio Lipase Urine Color Yellow Urine Appearance Clear Urine pH 6.0 Ur Specific Lincoln <= 1.005 Urine Protein Negative Urine Glucose (UA) Negative Urine Ketones Negative Urine Blood Negative Urine Nitrate Negative Urine Bilirubin Negative Urine Urobilinogen 0.2 Ur Leukocyte Esterase Negative Urine RBC None Urine WBC Occasional Ur Squamous Epith Cells None Urine Bacteria Trace Urine Yeast 05/26/25 05/25/25 05/25/25 05:01 22:33 20:56 WBC 8.5 9.6 RBC 3.53 L 4.05 L Hgb 10.4 L D 11.8 L Hct 33.1 L 37.7 MCV 93.8 93.1 MCH 28.9 29.1 MCHC 30.8 L 31.3 L RDW 15.5 15.6 Plt Count 235 305 MPV 10.7 H 11.1 H Neut % (Auto) 59.1 58.3 Lymph % (Auto) 30.7 32.8 Ceiba % (Auto) 6.6 5.8 Eos % (Auto) 2.6 2.4 Baso % (Auto) 0.5 0.4 Neut # (Auto) 5.1 5.6 Lymph # (Auto) 2.6 3.2 Ceiba # (Auto) 0.6 0.6 Eos # (Auto) 0.2 0.2 Baso # (Auto) 0.0 0.0 PT 12.0 INR 1.09 APTT 25.3 Sodium 139 139 Potassium 3.4 L D 4.4 Chloride 101 100 Carbon Dioxide 30 30 Anion Gap 11.4 13.4 BUN 15 18 H Creatinine 0.90 1.00 Estimated Creat Clear 85 82 Estimated GFR 63 56 L Est GFR ( Amer) 76 68 Glucose 118 H 129 H POC Glucose Lactate 1.3 Calcium 8.0 L 9.4 Total Bilirubin 0.6 AST 18 ALT 12 Alkaline Phosphatase 97 Total Protein 7.3 Albumin 4.3 Globulin 3.0 Albumin/Globulin Ratio 1.4 Lipase 115 Urine Color Yellow Urine Appearance Slightly cloudy Urine pH 6.0 Ur Specific Lincoln <= 1.005 Urine Protein Negative Urine Glucose (UA) Negative Urine Ketones Negative Urine Blood Trace-l Urine Nitrate Negative Urine Bilirubin Negative Urine Urobilinogen 0.2 Ur Leukocyte Esterase Trace Urine RBC 50-100 Urine WBC 50-100 Ur Squamous Epith Cells 20-50 Urine Bacteria 4+ Urine Yeast 1+ DS: Diagnosis Discharge Diagnosis (1) Abdominal cramping: Status: Acute Code(s): R10.9 - Unspecified abdominal pain (2) BRBPR (bright red blood per rectum): Status: Acute Code(s): K62.5 - Hemorrhage of anus and rectum (3) Hemorrhoids: Status: Acute Code(s): K64.9 - Unspecified hemorrhoids (4) UTI (urinary tract infection): Status: Acute Code(s): N39.0 - Urinary tract infection, site not specified (5) COPD (chronic obstructive pulmonary disease): Status: Chronic Code(s): J44.9 - Chronic obstructive pulmonary disease, unspecified Qualifiers: COPD type: unspecified COPD Qualified Code(s): J44.9 - Chronic obstructive pulmonary disease, unspecified (6) Diabetes mellitus: Status: Chronic Code(s): E11.9 - Type 2 diabetes mellitus without complications Qualifiers: Diabetes mellitus complication status: without complication Diabetes mellitus nursing home insulin use: without nursing home use Diabetes mellitus type: type 2 Qualified Code(s): E11.9 - Type 2 diabetes mellitus without complications Meds Home Medications and Allergies Home Medications ?Medication ?Instructions ?Recorded ?Confirmed ?Type trazodone 100 mg tablet 100 mg PO HS 08/22/24 05/26/25 History ranolazine 500 mg tablet,extended 500 mg PO BID 30 days #60 tabs 11/19/24 05/26/25 Rx release,12 hr atorvastatin 40 mg tablet 40 mg PO HS #90 tabs 02/07/25 05/26/25 Rx levothyroxine 100 mcg tablet 100 mcg PO DAILYDM #90 tabs 02/15/25 05/26/25 Rx aspirin 81 mg tablet,delayed 81 mg PO DAILY 30 days #30 tabs 02/19/25 05/26/25 Rx release furosemide 20 mg tablet 40 mg (2 x 20 mg) PO DAILY 30 days 02/19/25 05/26/25 Rx #60 tabs quetiapine 50 mg tablet 50 mg PO HS #30 tabs 03/14/25 05/26/25 Rx pantoprazole 40 mg tablet,delayed 40 mg PO HS 30 days #30 tabs 04/06/25 05/26/25 Rx release montelukast 10 mg tablet 10 mg PO HS #30 tabs 04/13/25 05/26/25 Rx potassium chloride 10 mEq 10 meq PO DAILY #90 tabs 04/13/25 05/26/25 Rx tablet,extended release duloxetine 60 mg capsule,delayed 60 mg PO BID 90 days #180 caps 04/18/25 05/26/25 Rx release ferrous sulfate 325 mg (65 mg 325 mg PO BID #60 tabs 04/18/25 05/26/25 Rx iron) tablet metformin 1,000 mg tablet 1,000 mg PO BIDWMEAL #60 tabs 04/18/25 05/26/25 Rx rivaroxaban 20 mg tablet (Xarelto) 20 mg PO QPMWITHMEAL 05/12/25 05/26/25 History verapamil 120 mg 24 hr 120 mg PO DAILY #30 caps 05/12/25 05/26/25 Rx capsule,extended release cefdinir 300 mg capsule 300 mg PO BID 10 days #20 caps 05/25/25 Rx hydrocortisone acetate 25 mg 25 mg [place] DAILY PRN hemorrhoids #24 05/25/25 Rx rectal suppository (Anusol-HC) ea ondansetron 4 mg disintegrating 4 mg PO Q8H PRN nausea and 05/25/25 Rx tablet vomiting 4 days #12 tabs polyethylene glycol 3350 17 17 g PO DAILY PRN constiptation 05/25/25 Rx gram/dose oral powder (Miralax) #510 grams cholecalciferol (vitamin D3) 1,250 1,250 mcg PO WEEKLY 05/26/25 05/26/25 History mcg (50,000 unit) capsule gabapentin 600 mg tablet 600 mg PO BID 05/26/25 05/26/25 History magnesium oxide 400 mg (241.3 mg 400 mg PO BID 05/26/25 05/26/25 History magnesium) tablet metoprolol succinate 25 mg 25 mg PO DAILY 05/26/25 05/26/25 History tablet,extended release 24 hr promethazine 12.5 mg tablet 12.5 mg PO Q6HP PRN Nausea And 05/26/25 05/26/25 History Vomiting ropinirole 0.25 mg tablet 0.25 mg PO HS 05/26/25 05/26/25 History levofloxacin 750 mg tablet 750 mg PO DAILY 5 days #5 tabs 05/29/25 Rx New Prescriptions to Start Prescriptions: cefdinir Grisel Worthington hydrocortisone acetate [Anusol-HC] Grisel Worthington levofloxacin Chandler Cody ondansetron Grisel Worthington polyethylene glycol 3350 [Miralax] Grisel Worthington Allergies Allergy/AdvReac Type Severity Reaction Status Date / Time codeine (CODEINE) Allergy Intermediate N/V Verified 05/12/25 14:21 ketorolac (KETOROLAC) Allergy Intermediate Hives Verified 05/12/25 14:21 meperidine (MEPERIDINE) Allergy Intermediate Hives Verified 05/12/25 14:21 tramadol (TRAMADOL) Allergy Intermediate Hives Verified 05/12/25 14:21 verapamil Allergy Mild Unknown Verified 05/12/25 14:21 allergy reaction ciprofloxacin AdvReac Severe Interacts Verified 05/12/25 14:21 with cymbalta Discharge Plan Disposition Patient Disposition: Home, Self-Care Condition: Good Follow up Plan Follow up with: David Lion II, MD [Staff Physician, Gastroenterology] - 06/27/25 10:15 am Provider,MD Samuel [Primary Care Provider, Medical] - Enter time for follow up Referral Note: Please call PCP for follow up appointment Prescriptions/Medication Reconciliation: New hydrocortisone acetate [Anusol-HC] 25 mg suppository 25 mg [place] DAILY PRN (Reason: hemorrhoids) Qty: 24 0RF polyethylene glycol 3350 [Miralax] 17 gram/dose powder 17 g PO DAILY PRN (Reason: constiptation) Qty: 510 0RF ondansetron 4 mg tablet,disintegrating 4 mg PO Q8H PRN (Reason: nausea and vomiting) 4 Days Qty: 12 0RF cefdinir 300 mg capsule 300 mg PO BID 10 Days Qty: 20 0RF levofloxacin 750 mg tablet 750 mg PO DAILY 5 Days Qty: 5 0RF Continued Xarelto 20 mg tablet 20 mg PO QPMWITHMEAL verapamil 120 mg capsule,ext rel. pellets 24 hr 120 mg PO DAILY Qty: 30 3RF ranolazine 500 mg tablet extended release 12 hr 500 mg PO BID 30 Days Qty: 60 10RF atorvastatin 40 mg tablet 40 mg PO HS Qty: 90 3RF levothyroxine 100 mcg tablet 100 mcg PO DAILYDM Qty: 90 1RF quetiapine 50 mg tablet 50 mg PO HS Qty: 30 2RF pantoprazole 40 mg tablet,delayed release (DR/EC) 40 mg PO HS 30 Days Qty: 30 0RF montelukast 10 mg tablet 10 mg PO HS Qty: 30 2RF potassium chloride 10 mEq tablet extended release 10 meq PO DAILY Qty: 90 0RF duloxetine 60 mg capsule,delayed release(DR/EC) 60 mg PO BID 90 Days Qty: 180 0RF ferrous sulfate 325 mg (65 mg iron) tablet 325 mg PO BID Qty: 60 0RF metformin 1,000 mg tablet 1,000 mg PO BIDWMEAL Qty: 60 0RF trazodone 100 mg tablet 100 mg PO HS magnesium oxide 400 mg (241.3 mg magnesium) tablet 400 mg PO BID gabapentin 600 mg tablet 600 mg PO BID Rx Instructions: TAKE 1 TABLET(600 mg) orally twice a day ropinirole 0.25 mg tablet 0.25 mg PO HS metoprolol succinate 25 mg tablet extended release 24 hr 25 mg PO DAILY promethazine 12.5 mg tablet 12.5 mg PO Q6HP PRN (Reason: Nausea And Vomiting) Patient Comments: take 1 tablet ORAL route every 6 hours Take as needed for nausea. cholecalciferol (vitamin D3) 1,250 mcg (50,000 unit) capsule 1,250 mcg PO WEEKLY Rx Instructions: PT TAKES OF FRIDAYS aspirin 81 mg Tablet,Delayed Release (Dr/Ec) 81 mg PO DAILY 30 Days Qty: 30 0RF furosemide 20 mg tablet 40 mg PO DAILY 30 Days Qty: 60 1RF Problem Reconciliation Problems Reviewed?: Yes Patient Discharge Instructions ACTIVITY: Continue current activity DIET: continue same diet Patient Instructions: DI for Hemorrhoids, DI for Urinary Tract Infection (UTI), DI for Abdominal Pain-Adult Print Language: Tamazight Providers Primary Care Provider: Provider,Referral Admit Provider: Chandler Cody Attending Provider: Chandler Cody
--- NOTE | 2025-05-26 13:40 | SW/DCPLANNER ---
Spoke with patient about home health services once she is medically stable and ready for discharge. Patient voiced that she is not interested in home health services at the time due to she has to move and she wants to get moved and settled into her new place. Raymond Younger
--- NOTE | 2025-05-26 15:50 | HMH.OTEV ---
OT Inpatient Evaluation Rehab OT IP Evaluation Start: 05/26/25 08:14 Freq: ONCE Status: Active Protocol: Document 05/26/25 15:44 KILEY (Rec: 05/26/25 15:50 KILEY [id number]) Rehab OT IP Assessment Subjective History PER HPI narrative: This patient is a 64-year-old female with a history of hemorrhoids requiring banding, hypertension, hyperlipidemia, TIA, diverticulosis, anxiety/depression , prior CVA, atrial fibrillation on Xarelto, CAD status post stenting, CHF, and prior bouts of pancreatitis presenting to the emergency department for evaluation with concern for lower abdominal cramping and bright red blood per rectum when wiping. She notes that this happened this evening. She denies any other concerns such as vomiting, melena, blood in the toilet, or blood in her underwear. She states that she only had bright red blood when she wiped twice this evening. She called EMS and arrives hemodynamically stable. She still is complaining of significant lower abdominal cramping at this time. Of note, she was admitted in October of last year with concern for bright red blood per rectum, at which point sigmoidectomy showed that she had hemorrhoids that were banded. She was discharged home in stable condition Subjective Home health could work. Pt was sitting in chair when therapy arrived. Pt agreed to engage in initial OT eval. Pt orient x3. Pt lives with partner in home with 3 steps in back with hand rails. pt reports they are ind in ADLs and partner completed IADLs. pt reports they still drive. pt reports they are normally on 2-2 1/2 L O@, currently on 2L O2. Pt reports they have shower chair and grab bars . Pt reports they needed to go to bathroom. Pt completed a sit to stand transfer from chair with SBA and walker. Pt then completed functional mobility task of 10 feet to toilet with SBA and walker. Pt then sat on toilet and was ind in toileting tasks and hygiene. Pt then completed sit to stand transfer with walker from toilet and completed functional mobility task of 10 ft with walker back to chair and sat down. Pt demo good endurance and activity tolerance. Pt left with call light and all other needs within reach. Pt did reports hx of 2 falls in past month. Objective Patient Orientation Person,Place,Birthday Right Upper WFL Extremity Gross ROM Left Upper Extremity WFL Gross ROM Transfer Training Sit/Stand Transfer Assist Level Supervision/Stand by Chair Transfer Supervision/Stand by Ability Chair Transfer Sit to/from Ambulatory Technique Chair Transfer Rolling Walker Assistive Devices Performing Toilet Standby Assistance Hygiene Ability Overall Commode/ Standby Assistance Toilet Transfer Ability Commode/Toilet Sit to/from Ambulatory Transfer Technique Commode/Toilet Grab Bars Transfer Assistive Devices Decrease in No Endurance Rehab OT IP prob,goals,plan Problems Date of Evaluation: 05/26/25 Rehab Potential Rehab Potential Innapropriate for Skilled Therapy Discharge Plan OT Discharge Plan At this time, pt is at baseline and would not benefit from skilled acute OT services and interventions while at [facility]. Pt could benefit from OT services to address concerns with safety in home and functional mobility. Eval Complexity Eval Charge Codes 21425 - Moderate Complexity PHYSICIAN CERTIFICATION: I certify the specified therapy services for Linda Arteaga are required, authorized, and reviewed every 30 days.
--- NOTE | 2025-05-27 10:13 | SW/DCPLANNER ---
Spoke with patient on the phone. Patient stated that she is doing good. Patient stated that she is aware of her upcoming appointments. Patient stated that she was able to get her new medicine picked up from [facility]. Patient stated that she has no concerns or questions Raymond Younger
--- NOTE | 2025-05-28 08:08 | PC.NURSE ---
urine culture results forwarded to hospitalist.
== END 2025-05-26 16:00 | disposition home or self-care (01) ==
LOC: ER 05-26 → 2ND 05-26 00:25
PROVIDERS: Nurse Practitioner Family; Admitting Provider Internal Medicine Adolescent Medicine; Emergency Provider Emergency Medicine; Visit Provider Internal Medicine Adolescent Medicine
DX: K62.5 Hemorrhage of anus and rectum (principal); K64.9 Unspecified hemorrhoids; N39.0 Urinary tract infection, site not specified; J44.9 Chronic obstructive pulmonary disease, unspecified; E78.5 Hyperlipidemia, unspecified; E03.9 Hypothyroidism, unspecified; I48.91 Unspecified atrial fibrillation; I11.0 Hypertensive heart disease with heart failure; I50.30 Unspecified diastolic (congestive) heart failure; I25.118 Atherosclerotic heart disease of native coronary artery with other forms of angina pectoris; E11.40 Type 2 diabetes mellitus with diabetic neuropathy, unspecified; E66.9 Obesity, unspecified; F41.8 Other specified anxiety disorders; J96.10 Chronic respiratory failure, unspecified whether with hypoxia or hypercapnia; F17.201 Nicotine dependence, unspecified, in remission; K86.1 Other chronic pancreatitis; Z86.73 Personal history of transient ischemic attack (TIA), and cerebral infarction without residual deficits; Z79.899 Other long term (current) drug therapy; Z79.01 Long term (current) use of anticoagulants; Z79.84 Long term (current) use of oral hypoglycemic drugs; Z79.890 Hormone replacement therapy; Z95.5 Presence of coronary angioplasty implant and graft; Z88.8 Allergy status to other drugs, medicaments and biological substances; Z88.5 Allergy status to narcotic agent; Z88.1 Allergy status to other antibiotic agents; Z68.33 Body mass index [BMI] 33.0-33.9, adult; Z79.82 Long term (current) use of aspirin; Z90.49 Acquired absence of other specified parts of digestive tract
CPT/HCPCS: 96374; 96375; 96376; 74174; 80048; 80053; 81001; 82962; 83605; 83690; 85025; 85610; 85730; 87086; 87088; 87186; 97166; G0378; J0696; J1642; J2270; J2405; J2470; J2765; Q9967

== ENCOUNTER 2025-06-23 12:11 | Outpatient (POV) | payer MEDICARE, MEDICAID, SELFPAY ==
--- OUTSIDE RECORDS SUMMARY | 2025-06-23 12:19 | XMS_ITS | Patient Health Record ---
Author Organization [facility] Address [address] [place] [address] Care Team Providers Care Rabbit Breeder Name Role Phone ANGELINA BOWIE Primary Care Provider [phone] Reason For Referral No Information Plan Of Treatment No Information
--- OUTSIDE RECORDS SUMMARY | 2025-06-23 12:19 | XMS_ITS | Clinical Summary ---
Author Organization [facility] Address [address] [place] [address] Phone Care Team Providers Care Motor Racer Name Role Phone Sami Rasheed MD Unavailable [ ] Conditions or Problems Problem Name Problem Code Onset Date Status Entry Date Provider Comment Standard Description Annotate Chronic mastoiditis, bilateral 52918903 (SNOMED CT) Active Courtney Gordon Chronic mastoiditis Acute mastoiditis, bilateral, without complications H70.003 (ICD-10-CM ) Active Courtney Gordon Acute mastoiditis without complications , bilateral Benign Essential Hypertension 33838051 (SNOMED CT) Active Courtney Gordon Benign hypertension Medications Medication Instructions Start Date Stop Date Generic Name ND Provider MEDROL 4 MG TBPK tapering METHYLPREDNISOLONE [id number] Jorge Mckeon ACIDOPHILUS CAPS LACTOBACILLUS [id number] Jorge Mckeon CEFDINIR 300 MG CAPS twice daily CEFDINIR [id number] Jorge Mckeon PERCOCET 5-325 MG TABS 1-2 tablets every 4 hours as needed OXYCODONE-ACETAMINOP HEN [id number] Jorge Mckeon Medications Administered No information available. [...]
--- OUTSIDE RECORDS SUMMARY | 2025-06-23 12:19 | XMS_ITS | Clinical Summary ---
Author Organization [facility] Address [address] [id number] Care Team Providers Care Crater And Packer Name Role Phone Juan C Colón MD Primary Care Provider [phone] Allergies Active Allergy Reactions Criticality Noted Date Comments Ciprofloxacin GI Intolerance Low 07/24/2020 Can't take with cymbalta Meperidine Hives,GI Intolerance Low 05/11/2014 Ketorolac Tromethamine Hives,GI Intolerance Low Tramadol Hives,GI Intolerance Low 05/11/2014 Medications DULoxetine (CYMBALTA) 60 MG capsule Take 1 capsule by mouth 2 (Two) Times a Day. Active ALPRAZolam (XANAX) 1 MG tablet Take 1 tablet by mouth 2 (Two) Times a Day As Needed for Anxiety. Active montelukast (SINGULAIR) 10 MG tablet Take 1 tablet by mouth Every Night. 4 Active atorvastatin (LIPITOR) 40 MG tablet Take 1 tablet by mouth Every Night. 30 tablet 7 Active budesonide-form oterol (SYMBICORT) 160-4.5 MCG/ACT inhaler Inhale 2 puffs As Needed. Active albuterol (PROVENTIL) (2.5 MG/3ML) 0.083% nebulizer solution Take 2.5 mg by nebulization Every 6 (Six) Hours As Needed for Wheezing. Active albuterol sulfate HFA 108 (90 Base) MCG/ACT inhaler Inhale 2 puffs Every 4 (Four) Hours As Needed for Wheezing. Active lisinopril (PRINIVIL,ZESTR IL) 5 MG tablet Take 1 tablet by mouth Daily. 0 Active metoprolol succinate XL (TOPROL-XL) 25 MG 24 hr tablet Take 0.5 tablets by mouth Daily. Active acetaminophen (TYLENOL) 325 MG tablet Take 2 tablets by mouth Every 6 (Six) Hours As Needed for Mild Pain . 0 Active traZODone (DESYREL) 100 MG tablet Take 1 tablet by mouth Every Night. 30 tablet 0 Active docusate sodium 100 MG capsuleIndicati ons:Constipatio n Take 100 mg by mouth 2 (Two) Times a Day As Needed for Constipation. Indications: Constipation 0 Active lactulose (CHRONULAC) 10 GM/15ML solution Take 30 mL by mouth Daily. 150 mL 0 Active Additional Information Patient taking differently:20 g OralDaily PRN, Informant: Self, Reported on 02/17/2024 polyethylene glycol (MIRALAX) 17 g packet Take 17 g by mouth Daily. 0 Active Additional Information Patient taking differently:17 g OralDaily PRN, constipation, Informant: Self, Reported on 02/17/2024 metFORMIN ER (GLUCOPHAGE-XR) 500 MG 24 hr tablet Take 1 tablet by mouth Daily With Breakfast. 3 Active gabapentin (NEURONTIN) 600 MG tablet Take 1 tablet by mouth 2 (Two) Times a Day. 3 Active QUEtiapine (SEROquel) 50 MG tablet Take 1 tablet by mouth Every Night. 3 Active Xarelto 20 MG tablet Take 1 tablet by mouth Daily With Dinner. Pt to hold (1) week prior to procedure per Dr. Kearney 3 Active rOPINIRole (REQUIP) 0.25 MG tablet Take 1 tablet by mouth Every Night. 3 Active Brilinta 90 MG tablet tablet Take 1 tablet by mouth 2 (Two) Times a Day. Pt to hold (1) week prior to procedure per Dr. Kearney 3 Active levothyroxine (SYNTHROID, LEVOTHROID) 100 MCG tablet Take 1 tablet by mouth Every Morning. 30 tablet 3 3 Active naloxone (NARCAN) 4 MG/0.1ML nasal spray Call 911. Don't prime. [place] in 1 nostril for overdose. Repeat in 2-3 minutes in other nostril if no or minimal breathing/respon siveness. 2 each 3 Active sodium-potassiu m-magnesium sulfates (Suprep Bowel Prep Kit) 17.5-3.13-1.6 GM/177ML solution oral solution Take 2 bottles by mouth Take As Directed. Do not eat the day before your procedure. If you didn't receive instructions call [phone]. 354 mL 4 Active promethazine (PHENERGAN) 25 MG tablet TAKE ONE TABLET BY MOUTH THREE TIMES DAILY NEEDED FOR NAUSEA AND FOR VOMITING 4 Active Premarin 0.3 MG tablet take 1 tablet by mouth daily for Hormone Replacement 4 Active potassium chloride 10 MEQ CR tablet Take 1 tablet by mouth Daily. 3 Active omeprazole (priLOSEC) 40 MG capsule Take 1 capsule by mouth Daily. Take a half hour before breakfast and dinner 30 capsule 11 4 Active Active Problems Problem Noted Date Diagnosed Date Special screening for malignant neoplasms, colon 12/17/2023 Dysphagia 12/17/2023 History of heart artery stent 12/17/2023 Acute renal failure, unspecified acute renal lacey lure type 04/28/2023 Morbidly obese 09/18/2019 Gastroesophageal reflux disease without esophagi tis 05/10/2019 Esophageal dysphagia 05/10/2019 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 05/10/2019 Gastroparesis 05/10/2019 Steatorrhea, pancreatic 05/10/2019 Hematochezia 05/10/2019 History of colonic polyps 05/10/2019 History of ERCP 05/10/2019 COPD (chronic obstructive pulmonary disease) 01/2017 Acute on chronic respiratory failure with hypoxe leah 08/02/2017 Paroxysmal atrial fibrillation 07/31/2017 Overview (07/31/2017): Newly diagnosed 07/31/2017 CHADSVasc = 2 (HTN, essential) Chronic pancreatitis 07/31/2017 Overview (07/31/2017): Followed by Dr. Kearney Recent ERCP, data deficit Essential hypertension 07/31/2017 Tobacco abuse 07/31/2017 Atrial fibrillation with rapid ventricular respo nse 07/31/2017 Leukocytosis 07/31/2017 Abdominal pain 07/31/2017 Resolved Problems Problem Noted Date Diagnosed Date Resolved Date Intractable abdominal pain 07/31/2020 0 08/02/2020 Immunizations Immunization Administration Dates Next Due Fluzone (or Fluarix & Flulav al for VFC) >6mos 08/30/2022,08/18/2020,09/23/2018,09/15 Influenza, Unspecified 2008 Pneumococcal Polysaccharide (PPSV23) 09/15/2015 Family History Medical History Relation Name Comments Colon cancer Neg Hx Colon polyps Neg Hx Social History Tobacco Use Types Packs/Day Years Used Date Smoking Tobacco: Former Cigarettes 0.3 45 0 12/01/1975 - 12/01/2020 Smokeless Tobacco: Never Tobacco Cessation:Counseling Given: Not Answered Comments:weaning off Alcohol Use Standard Drinks/Week Comments No 0 (1 standard drink = 0.6 oz pur e alcohol) AUDIT-C Answer Date Recorded Q1: How often do you have a drink containing alcohol? Never 04/28/2023 Q2: How many drinks containi ng alcohol do you have on a typical day when you are drinking? Patient does not drink Q3: How often do you have si x or more drinks on one occasion? Never 04/28/2023 Abuse Screen Answer Date Recorded Feels Unsafe at Home or Work/School no 02/17/2024 Feels Threatened by Someone no 01/29 Does Anyone Try to Keep You From Having Contact with Others or Doing Things Outside Your Home? no 02/17/2024 Physical Signs of Abuse Present no 02/17/2024 Housing Stability Answer Date Recorded Current Living Arrangements Not on file 03/2024 Potentially Unsafe Housing Conditions Not on grisel e 05/05/2024 Family and Community Support Answer Jag e Recorded Help with Day-to-Day Activities Not on file 09/08/2023 Lonely or Isolated Not on file 09/08/2023 Employment Answer Date Recorded Do you want help finding or keeping work or a laura b? Not on file 09/08/2023 Disabilities Answer Date Recorded Concentrating, Remembering, or Making Decisions Difficulty Not on file 05/05/2024 Doing Errands Independently Difficulty Not on fi le 05/05/2024 Education Answer Date Recorded Help with school or training? Not on file Preferred Language Sierra Leonean 02/17/2024 Comments No Sex and Gender Information Value Date Recorded Sex Assigned at Not on file Legal Sex Female 10:08 AM EDT Gender Identity Not on file Sexual Orientation Not on file Last Filed Vital Signs Vital Sign Reading Time Taken Comments Blood Pressure 133/93 05/06/2023 4:28 PM EDT Pulse 95 05/06/2023 2:43 PM EDT Temperature 36.5 C (97.7 F) 05/06/2023 4:28 PM EDT Respiratory Rate 14 05/06/2023 4:28 PM EDT Oxygen Saturation 96% 05/06/2023 7:33 AM EDT Inhaled Oxygen Concentration - - Weight 98.2 kg (216 lb 7.9 oz) 02/17/2024 9:09 A M EDT Height 167.6 cm (5' 6 ) 02/17/2024 9:09 AM EDT Body Mass Index 34.94 02/17/2024 9:09 AM EDT Plan of Treatment Upcoming Encounters Date Type Department Care Team (Late st Contact Info) Description 08/18/2025 1:30 PM EDT Office Visit [facility] [address] [facility] [address] [place] [address] Kerry Monae APRN [address] [facility] [address] [place] [address] Health Maintenance Due Date Last Done Comments Annual Gynecologic Pelvic an d Breast Exam 1960 DIABETIC EYE EXAM 1970 DIABETIC FOOT EXAM 1970 URINE MICROALBUMIN-CREATININ E RATIO (uACR) 1970 TDAP/TD VACCINES (1 - Tdap) 1979 MAMMOGRAM 2000 COLOGUARD 2005 COLON CANCER SCREENING 5 YEA R SIGMOIDOSCOPY 2005 CT COLONOGRAPHY 2005 FIT Testing (1 year) 2005 ZOSTER VACCINE (1 of 2) 2010 Pneumococcal Vaccine 50+ (2 of 2 - PCV) 09/15/2016 09/15/2015 ANNUAL WELLNESS VISIT 07/24/2017 HEMOGLOBIN A1C 01/29/2018 08/01/2017 FECAL OCCULT BLOOD TEST 07/29/2021 07/29/20 20, 07/24/2020, 06/05/2018, Additional history exists COVID-19 Vaccine (2023-2 5 season) 2024 10/09/2021, 02/02/2021 INFLUENZA VACCINE 08/31/2025 08/30/2022, , 09/23/2018, Additional history exists COLONOSCOPY 04/05/2034 04/05/2024, 12/25/2021 COLORECTAL CANCER SCREENING 04/05/2034 HEPATITIS C SCREENING Completed 04/11/2022 Medical Devices Implanted Type Area Clean Rice Grader And Reel Tender Device Identifier Shelf Expiration Date Model / Serial / Lot Pain Pump Pain Pump Procedures Procedure Name Priority Date/Time Associated Diagnosis Comments SCANNED - COLONOSCOPY 04/05/2024 POCT OCCULT BLOOD STOOL STAT 07/29/2020 7:04 PM EDT HEMOGLOBIN A1C Routine 08/01/2017 5:10 AM EDT from Last 3 Months or Most Recently Relevant to Health Maintenance Results * Colonoscopy, Scan (04/05/2024) us Rubin Kearney MD CHART REVIEW T ABS Final Result * POC Occult Blood Stool (07/29/2020 7:04 PM EDT) Fecal Occult Blood Negative Negative [facility] Lot Number [id number] 1R [facility] Expiration Date 06/21 [facility] DEVELOPER LOT NUMBER [id number] [facility] DEVELOPER EXPIRATION DATE 05/23 [facility] Positive Control Positive Positive [facility] Negative Control Negative Negative [facility] Stool Specimen from rectum / Unknown 07/29/2020 7:04 PM EDT us Cheko Galdamez MD POINT OF CARE TEST ORDERABLES Final Result [facility]
[address] [place] [address], * (ABNORMAL) Hemoglobin A1c (08/01/2017 5:10 AM EDT) Hemoglobin A1C 6.30(H) 4.80 - 5.60 % 08/01/2017 8:00 AM EDT [facility] Blood 08/01/2017 5:10 AM EDT 08/01/2017 5:26 AM EDT Narrative [facility] - 08/01/2017 8:00 AM EDT The [employer] recommends maintenance of Hemoglobin A1C at 7.0% or lower. Goals for Hemoglobin A1C reduction may need to be modified if hypoglycemia is a problem. us Lili Mandujano II, DO LAB BLOOD ORDERABLES Elodia agustin Result [facility]
[address] [place] [address], from Last 3 Months or Most Recently Relevant to Health Maintenance Insurance MEDICAID [employer] MEDICARE ADVANTAGE PPO Advance Directives * CPR (Attempt to Resuscitate) (Latest Code Status on File) Date Activated Date Inactivated Comments 04/29/2023 8:39 AM 05/06/2023 7:45 PM Question Answer Comments Code Status (Patient has no pulse and is not breathing): CPR (Attempt to Resuscitate) Medical Interventions (Patie nt has pulse or is breathing): Full Support Level Of Support Discussed With: Patient Release to patient: Routine Release * CPR (Attempt to Resuscitate) Date Activated Date Inactivated Comments 07/30/2020 12:14 AM 08/02/2020 3:02 PM Question Answer Comments Code Status (Patient has no pulse and is not breathing): CPR (Attempt to Resuscitate) Medical Interventions (Patie nt has pulse or is breathing): Full Level Of Support Discussed With: Patient * CPR (Attempt to Resuscitate) Date Activated Date Inactivated Comments 06/14/2019 8:10 PM 06/17/2019 5:17 PM Question Answer Comments Code Status (Patient has no pulse and is not breathing): CPR (Attempt to Resuscitate) Medical Interventions (Patie nt has pulse or is breathing): Full Level Of Support Discussed With: Patient * Full Code Date Activated Date Inactivated Comments 07/31/2017 9:25 AM 08/04/2017 3:38 PM Care Teams Crater And Packer Relationship Specialty Start Date End Date Juan C Colón MD [address] [place] [id number] PCP - General Family Medicine 04/30/23
--- OUTSIDE RECORDS SUMMARY | 2025-06-23 12:19 | XMS_ITS | Data Portability ---
Author Organization [facility] & [place] [facility] ADMIN Address [address] [place] [id number] Care Team Providers Care Outreach Counselor Name Role Phone RADHA GALLO Referring Provider Assessment No assessment recorded. Plan of Treatment Reminders Order Date Submit Date Provider Last Modified By Organization Details Last Modified Time Details Appointments MENTAL HEALTH 60 2024 02:00P M BRYNN CARLSON Not available Not available Not available Establish ed Visit 30 min 2024 02:00P M CECIL WEEKS Not available Not available Not available MENTAL HEALTH 60 2024 02:00P M BRYNN CARLSON Not available Not available Not available Lab TSH + free T4, serum [address] (Laboratory), [address] [place], [address], 05/12/2025 08:04:34 lipid panel, serum 2024 025 [facility] (Laboratory), [address] [place], [address], 05/05/2025 17:25:45 iron + TIBC + ferritin, serum [address] (Laboratory), [address] [place], [address], 05/12/2025 08:04:35 CBC w/ auto diff 2024 025 [facility] (Laboratory), [address] [place], [address], 05/05/2025 17:09:33 vitamin B12 + folate, serum or blood [address] [place] [address] (Laboratory), [address] [place], [address], 05/12/2025 08:04:35 hemoglobi n A1C/hemog lobin total, QN, blood [email or web address] (Laboratory), [address] [place], [address], 05/12/2025 08:04:34 amylase + lipase, serum [address] [place] [address] (Laboratory), [address] [place], [address], 05/12/2025 08:04:34 CMP, serum or plasma [address] [place] [address] (Laboratory), [address] [place], [address], 05/05/2025 17:25:43 vitamin D, 25-hydrox y, total, serum [address] [place] [address] (Laboratory), [address] [place], [address], 05/12/2025 08:04:34 Referral gastroent erologist referral 2024 025 [email or web address] Deangelo Redd MD, [address] [place], [place], [address], 06/06/2025 08:36:02 behaviora [facility] referral 2024 025 [email or web address] Abraham Kulkarni [facility], [address] [place], [id number], 06/06/2025 08:36:15 Procedures None recorded. Surgeries None recorded. Imaging CT, abdomen + pelvis, w/ contrast 2024 025 [id number] [facility] (Scheduling), [address] [place], [address], 05/06/2025 08:54:22 LDCT, chest, for lung cancer screening 2024 025 [email or web address] [facility] (Scheduling), [address] [place], [address], 05/12/2025 08:04:25 Medication Orders None recorded. Patient TargetsNo targets recorded. Patient InstructionsNo instructions recorded. 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 Pancreas divisum Referring Physician: Radha Gallo [facility] Patricia, Encounter Date: 05/05/2025 Results Created Date Observation Date Name Description Value Unit Range Abnormal Flag Note LastModifiedBy Organization Detail LastModifiedTime 05/05/2005/05/2025 CBC AUTO W DIFF WBC 10.3 10 4.5-11 .5 Not Available [facility] (Lab Registration) [address] [place], [address], 05/05/2025 17:09:32 05/05/20 25 05/05/2025 CBC AUTO W DIFF RBC 4.76 10 4.25-5 .57 Not Available [facility] (Lab Registration) [place], [address], 05/05/2025 17:09:32 05/05/20 25 05/05/2025 CBC AUTO W DIFF HGB 15.1 g/dL 12.0-1 5.7 Not Available [facility] (Lab Registration) [address] [place], [address], 05/05/2025 17:09:32 05/05/20 25 05/05/2025 CBC AUTO W DIFF HCT 44.2 % 36.0-4 7.0 Not Available [facility] (Lab Registration) [address] [place], [address], 05/05/2025 17:09:32 05/05/20 25 05/05/2025 CBC AUTO W DIFF MCV 92.9 fL 80-95 Not Available [facility] (Lab Registration) [address] [place], [address], 05/05/2025 17:09:32 05/05/20 25 05/05/2025 CBC AUTO W DIFF MCH 31.7 pg 27.0-3 4.0 Not Available [facility] (Lab Registration) [address] [place], [address], 05/05/2025 17:09:32 05/05/20 25 05/05/2025 CBC AUTO W DIFF MCHC 34.2 g/dL 32.0-3 6.0 Not Available [facility] (Lab Registration) [address] [place], [address], 05/05/2025 17:09:32 05/05/20 25 05/05/2025 CBC AUTO W DIFF platelet count 332 10 150-45 0 Not Available [facility] (Lab Registration) [address] [place], [address], 05/05/2025 17:09:32 05/05/20 25 05/05/2025 CBC AUTO W DIFF RDW 15.5 % 12.3-1 5.1 high Not Available [facility] (Lab Registration) [address] [place], [address], 05/05/2025 17:09:32 05/05/20 25 05/05/2025 CBC AUTO W DIFF MPV 11.1 fL 7.4-10 .4 high Not Available [facility] (Lab Registration) [address] [place], [address], 05/05/2025 17:09:32 05/05/20 25 05/05/2025 CBC AUTO W DIFF granulocyte% 63.1 % 40-75 Not Available [facility] (Lab Registration) [address] [place], [address], 05/05/2025 17:09:32 05/05/20 25 05/05/2025 CBC AUTO W DIFF lymphocyte% 27.7 % 15-57 Not Available [facility] (Lab Registration) [address] [place], [address], 05/05/2025 17:09:32 05/05/20 25 05/05/2025 CBC AUTO W DIFF monocyte% 6.0 % 4.0-12 .0 Not Available [facility] (Lab Registration) [address] [place], [address], 05/05/2025 17:09:32 05/05/2005/05/2025 CBC AUTO W DIFF eosinophil% 2.2 % 0.0-4. 0 Not Available [facility] (Lab Registration) [address] [place], [address], 05/05/2025 17:09:32 05/05/20 25 05/05/2025 CBC AUTO W DIFF basophil% 0.6 % 0.0-1. 0 Not Available [facility] (Lab Registration) [address] [place], [address], 05/05/2025 17:09:32 05/05/2005/05/2025 CBC AUTO W DIFF immature granulocytes % 0.4 % 0.0-0. 8 Not Available [facility] (Lab Registration) [address] [place], [address], 05/05/2025 17:09:32 05/05/2005/05/2025 CBC AUTO W DIFF granulocyte# 6.52 10 Not Available [facility] (Lab Registration) [address] [place], [address], 05/05/2025 17:09:32 05/05/20 25 05/05/2025 CBC AUTO W DIFF lymphocyte# 2.86 10 Not Available [facility] (Lab Registration) [address], [place], [address], 05/05/2025 17:09:32 05/05/20 25 05/05/2025 CBC AUTO W DIFF monocyte# 0.62 10 Not Available [facility] (Lab Registration) [address] [place], [address], 05/05/2025 17:09:32 05/05/20 25 05/05/2025 CBC AUTO W DIFF eosinophil# 0.23 10 Not Available [facility] (Lab Registration) [address] [place], [address], 05/05/2025 17:09:32 05/05/20 25 05/05/2025 CBC AUTO W DIFF basophil# 0.06 10 Not Available [facility] (Lab Registration) [address] [place], [address], 05/05/2025 17:09:32 05/05/20 25 05/05/2025 CBC AUTO W DIFF immature granulocytes # 0.04 10 Not Available [facility] (Lab Registration) [address], [place], [address], 05/05/2025 17:09:32 05/05/20 25 05/05/2025 CBC AUTO W DIFF manual differential NO Not Available [facility] (Lab Registration) [address] [place], [address], 05/05/2025 17:09:32 05/05/20 25 05/05/2025 CBC AUTO W DIFF note Unles s other sanchez noted testi ng perfo rmed at: [facility] [address] [place] [address] [phone] Bernard erazo MD CLIA: [id number] Not Available [facility] (Lab Registration) [address] [place], [address], 05/05/2025 17:09:32 05/05/20 25 05/05/2025 HEMOG LOBIN A1C glycosylated hemoglobin A1C 6.4 % 4.5-6. 2 high Not Available [facility] (Lab Registration) [address] [place], [address], 05/05/2025 17:10:39 05/05/20 25 05/05/2025 HEMOG LOBIN A1C estimated average glucose 137 mg/dL 82-131 high Not Available [facility] (Lab Registration) [address] [place], [address], 05/05/2025 17:10:39 05/05/20 25 05/05/2025 HEMOG LOBIN A1C note Unles s other sanchez noted testi ng perfo rmed at: [facility] [address] [place] [address] [phone] Bernard erazo MD CLIA: [id number] Not Available [facility] (Lab Registration) [address] [place], [address], 05/05/2025 17:10:39 05/05/20 25 05/05/2025 IRON/ TIBC/ %SAT (IRON STUDI ES) iron 43 ug/dL 35-150 Not Available [facility] (Lab Registration) [address] [place], [address], 05/05/2025 17:10:40 05/05/20 25 05/05/2025 IRON/ TIBC/ %SAT (IRON STUDI ES) total iron bind cap (TIBC) 387 ug/dL 250-45 0 Not Available [facility] (Lab Registration) [address] [place], [address], 05/05/2025 17:10:40 05/05/20 25 05/05/2025 IRON/ TIBC/ %SAT (IRON STUDI ES) % saturation 11 % 15-55 low Not Available [facility] (Lab Registration) [address] [place], [address], 05/05/2025 17:10:40 05/05/20 25 05/05/2025 IRON/ TIBC/ %SAT (IRON STUDI ES) note Cindy s other sanchez noted testi ng perfo rmed at: [facility] [address] [place] [address] [phone] Bernard erazo MD CLIA: [id number] Not Available [facility] (Lab Registration) [address], [place], [address], 05/05/2025 17:10:40 05/05/20 25 05/05/2025 THYRO ID STIMU LATIN G HORMO NE thyroid stimulating hormone 1.09 mIU/m L 0.34-4 .80 Not Available [facility] (Lab Registration) [address] [place], [address], 05/05/2025 17:24:39 05/05/20 25 05/05/2025 THYRO ID STIMU LATIN G HORMO NE note Cindy erazo other sanchez noted testi ng perfo rmed at: [facility] [address] [place] [address] [phone] Bernard erazo MD CLIA: [id number] Not Available [facility] (Lab Registration) [address] [place], [address], 05/05/2025 17:24:39 05/05/20 25 05/05/2025 T4 FREE T4,free 1.00 NG/dL 0.76-1 .46 Effec tive today 013 new Refer ence Range . Not Available [facility] (Lab Registration) [address] [place], [address], 05/05/2025 17:24:40 05/05/20 25 05/05/2025 T4 FREE note Cindy erazo other sanchez noted testi ng perfo rmed at: [facility] [address] [place] [address] [phone] Bernard erazo MD CLIA: [id number] Not Available [facility] (Lab Registration) [address] [place], [address], 05/05/2025 17:24:40 05/05/20 25 05/05/2025 AMYLA SE amylase 66 U/L 25-115 Not Available [facility] (Lab Registration) [address] [place], [address], 05/05/2025 17:25:41 05/05/20 25 05/05/2025 AMYLA SE note Unles s other sanchez noted testi ng perfo [facility]med [facility] [address] [place] [address] [phone] Bernard erazo MD CLIA: [id number] Not Available [facility] (Lab Registration) [address] [place], [address], 05/05/2025 17:25:41 05/05/20 25 05/05/2025 LIPAS E lipase 64 U/L 16-77 Not Available [facility] (Lab Registration) [address] [place], [address], 05/05/2025 17:25:42 05/05/20 25 05/05/2025 LIPAS E note Unles s other sanchez noted testi ng perfo [facility]med [facility] [address] [place] [address] [phone] Bernard erazo MD CLIA: [id number] Not Available [facility] (Lab Registration) [address] [place], [address], 05/05/2025 17:25:42 05/05/20 25 05/05/2025 COMP METAB OLIC PANEL sodium 139 mmol/ L 136-14 5 Not Available [facility] (Lab Registration) [address] [place], [address], 05/05/2025 17:25:43 05/05/20 25 05/05/2025 COMP METAB OLIC PANEL potassium 4.1 mmol/ L 3.5-5. 1 Not Available [facility] (Lab Registration) [address] [place], [address], 05/05/2025 17:25:43 05/05/20 25 05/05/2025 COMP METAB OLIC PANEL chloride 102 mmol/ L 98-107 Not Available [facility] (Lab Registration) [address] [place], [address], 05/05/2025 17:25:43 05/05/20 25 05/05/2025 COMP METAB OLIC PANEL carbon dioxide 29 mmol/ L 21-32 Not Available [facility] (Lab Registration) [address] [place], [address], 05/05/2025 17:25:43 05/05/20 25 05/05/2025 COMP METAB OLIC PANEL anion gap 8.0 Not Available [facility] (Lab Registration) [address] [place], [address], 05/05/2025 17:25:43 05/05/20 25 05/05/2025 COMP METAB OLIC PANEL glucose 110 mg/dL 70-110 Not Available [facility] (Lab Registration) [address] [place], [address], 05/05/2025 17:25:43 05/05/20 25 05/05/2025 COMP METAB OLIC PANEL blood urea nitrogen 15 mg/dL 7-18 Not Available [facility] (Lab Registration) [address] [place], [address], 05/05/2025 17:25:43 05/05/20 25 05/05/2025 COMP METAB OLIC PANEL creatinine 1.2 mg/dL 0.6-1. 0 high Not Available [facility] (Lab Registration) [address] [place], [address], 05/05/2025 17:25:43 05/05/20 25 05/05/2025 COMP METAB OLIC PANEL BUN/creatini ne ratio 12.5 9-21 Not Available [facility] (Lab Registration) [address], [place], [address], 05/05/2025 17:25:43 05/05/20 25 05/05/2025 COMP METAB [...] parap legia or quadr ipleg ia, veget droeen diet or rapid ly lemus ing kiney funct ion. Not Available [facility] (Lab Registration) [address], [place], [address], 05/05/2025 17:25:43 05/05/20 25 05/05/2025 COMP METAB OLIC PANEL osmolality (calculated) 291 mOsm/ kg 275-30 1 OSMOL ALITY IS A CALCU LATIO N UTILI ZING THE SERUM /PLAS MA SODIU M, GLUCO SE AND UREA NITRO GEN (BUN) LEVEL S. FOR THE MOST ACCUR ATE RESUL T A MEASU RED SERUM OSMOL ALITY IS SUGGE STED. Not Available [facility] (Lab Registration) [address], [place], [address], 05/05/2025 17:25:43 05/05/20 25 05/05/2025 COMP METAB OLIC PANEL total protein 8.0 g/dL 6.4-8. 2 Not Available [facility] (Lab Registration) [address], [place], [address], 05/05/2025 17:25:43 05/05/20 25 05/05/2025 COMP METAB OLIC PANEL albumin 3.9 g/dL 3.4-5. 0 Not Available [facility] (Lab Registration) [address] [place], [address], 05/05/2025 17:25:43 05/05/20 25 05/05/2025 COMP METAB OLIC PANEL calcium 8.9 mg/dL 8.5-10 .1 Not Available [facility] (Lab Registration) [address] [place], [address], 05/05/2025 17:25:43 05/05/20 25 05/05/2025 COMP METAB OLIC PANEL corrected calcium 9.0 mg/dL 8.5-10 .1 Not Available [facility] (Lab Registration) [address] [place], [address], 05/05/2025 17:25:43 05/05/20 25 05/05/2025 COMP METAB OLIC PANEL bilirubin total 0.5 mg/dL 0.4-1. 5 Not Available [facility] (Lab Registration) [address] [place], [address], 05/05/2025 17:25:43 05/05/20 25 05/05/2025 COMP METAB OLIC PANEL AST (SGOT) 18 U/L 15-37 Not Available [facility] (Lab Registration) [address] [place], [address], 05/05/2025 17:25:43 05/05/20 25 05/05/2025 COMP METAB OLIC PANEL ALT (SGPT) 12 U/L 12-78 Not Available [facility] (Lab Registration) [address] [place], [address], 05/05/2025 17:25:43 05/05/20 25 05/05/2025 COMP METAB OLIC PANEL alk phosphatase 136 U/L 53-141 Not Available [facility] (Lab Registration) [address] [place], [address], 05/05/2025 17:25:43 05/05/20 25 05/05/2025 COMP METAB OLIC PANEL note Unles s other sanchez noted testi ng perfo rmed at: [facility] [address] [place] [address] [phone] Bernard erazo MD CLIA: [id number] Not Available [facility] (Lab Registration) [address] [place], [address], 05/05/2025 17:25:43 05/05/20 25 05/05/2025 LIPID PANEL triglyceride 419 mg/dL 20-200 high The Natio nal Elsie stero l Educa tion Progr am (NCEP ) has set the follo wing guide lines for Fasti ng Trigl yceri philippe: JUANITA L: <150 mg/dL BORDE RLINE HIGH: 150 - 199 mg/dL HIGH: 200 - 499 mg/dL VERY HIGH: > or =500 mg/dL Not Available [facility] (Lab Registration) [address] [place], [address], 05/05/2025 17:25:45 05/05/20 25 05/05/2025 LIPID PANEL cholesterol 164 mg/dL 0-200 The Natio nal Elsie stero l Educa tion Progr am (NCEP ) has set the follo wing guide lines for Fasti ng Elsie stero l: ARIA ABLE: <200 mg/dL BORDE RLINE HIGH: 200 - 239 mg/dL HIGH: > or =240 mg/dL Not Available [facility] (Lab Registration) [address] [place], [address], 05/05/2025 17:25:45 05/05/20 25 05/05/2025 LIPID PANEL HDL cholesterol 56 mg/dL 60- low The Natio nal Elsie stero l Educa tion Progr am (NCEP ) has set the follo wing guide lines for Fasti ng HDL Elsie stero l: LOW HDL: <40 mg/dL JUANITA L: 40 - 60 mg/dL ARIA ABLE: >60 mg/dL Not Available [facility] (Lab Registration) [address], [place], [address], 05/05/2025 17:25:45 05/05/20 25 05/05/2025 LIPID PANEL [...] > or = 190 mg/dL Not Available [facility] (Lab Registration) [address], [place], [address], 05/05/2025 17:25:45 05/05/20 25 05/05/2025 LIPID PANEL chol/HDL ratio 3 -5 Not Available [facility] (Lab Registration) [address], [place], [address], 05/05/2025 17:25:45 05/05/20 25 05/05/2025 LIPID PANEL note Unles s other sanchez noted testi ng perfo rmed at: [facility] [address] [place] [address] [phone] Bernard erazo MD CLIA: [id number] Not Available [facility] (Lab Registration) [address], [place], [address], 05/05/2025 17:25:45 05/05/20 25 05/05/2025 VITAM IN D TOTAL (D2+D 3) vitamin D25 (D2+D3) 11.6 NG/mL 30-100 low Not Available [facility] (Lab Registration) [address], [place], [address], 05/05/2025 17:25:47 05/05/20 25 05/05/2025 VITAM IN D TOTAL (D2+D 3) note Cindy s other sanchez noted testi ng perfo rmed at: [facility] [address] [place] [address] [phone] Bernard erazo MD CLIA: [id number] Not Available [facility] (Lab Registration) [address] [place], [address], 05/05/2025 17:25:47 05/05/20 25 05/05/2025 HILLARY TIN ferritin 35 NG/mL 8-388 Not Available [facility] (Lab Registration) [address] [place], [address], 05/05/2025 17:25:48 05/05/20 25 05/05/2025 HILLARY TIN note Cindy erazo other sanchez noted testi ng perfo rmed at: [facility] [address] [place] [address] [phone] Bernard erazo MD CLIA: [id number] Not Available [facility] (Lab Registration) [address] [place], [address], 05/05/2025 17:25:48 05/05/20 25 05/05/2025 VITAM IN B12 vitamin B12 247 pg/mL 193-98 6 Not Available [facility] (Lab Registration) [address] [place], [address], 05/05/2025 17:25:49 05/05/20 25 05/05/2025 VITAM IN B12 folate (folic acid), serum 17.2 NG/mL 8.6-58 .9 Not Available [facility] (Lab Registration) [address] [place], [address], 05/05/2025 17:25:49 05/05/20 25 05/05/2025 VITAM IN B12 note Cindy s other sanchez noted testi ng perfo rmed at: [facility] [address] [place] [address] [phone] Bernard erazo MD CLIA: [id number] Not Available [facility] (Lab Registration) [address] [place], [address], 05/05/2025 17:25:49 05/05/20 25 05/05/2025 CT ABD/p [place] W IV and oral co [facility] Hospit [facility] [address] [place] [address] Phone: Fax: Name: ANDRWE BEJARANO Exam Date: 05/05/20 : 1959 Age 64 years Gender : F Access ion: [id number] Physic melodie: RADHA YEH Facili ty: [facility] Facili ty HSV: Outpat ient [...] you for referr ing ANDREW BEJARANO to [facility] Hospit [facility]. Legall y authen ticate d by BARBARA Woo MD 05-05 18:49: 00 CC'ed Logic: Orderi ng Provid er: DENNY GARCIA CC Provid er: LEO RODRIGUEZ Attend ing Provid er: DENNY GARCIA Referr ing Provid er: DENNY GARCIA Admitt ing Provid er: DENNY [email or web address] [facility] (Radiology) [address] [place] [address] [place], [address], 05/06/2025 12:40:28 05/05/20 25 05/05/2025 CT, abdom en + pelvi s, w/ contr ast No observ ation record ed. [facility] (Radiology) [address] [place] [address] [place], [address], 05/06/2025 12:41:26 05/05/20 25 05/05/2025 CT, abdom en + pelvi s, w/ contr ast No observ ation record ed. [facility] (Radiology) [address] [place] [address] , [place], [address], 05/06/2025 12:41:26 Result Notes None recorded. Problems Name Problem SNOMED Code Status Onset Date Resolution Date Notes Provider Name and Address Organization Details Recorded Time Essential hypertension 10283948 Active 2024 Hussain Card null, [place] - [facility] [place] 15:08:24 Prediabetes 520270010 Active 2024 Hussain Card [place], [place] [facility] [place] 15:08:43 Mixed anxiety and depressive disorder 071020982 Active 2024 Hussain Card [place], [place] - [facility] [place] 15:09:02 Hyperthyroidis m 11580873 Active 2024 Hussain Card [place], [place] - [facility] [place] 15:09:26 Pancreas divisum 52204851 Active 2024 Hussain Card null, [place] - [facility] [place] 15:09:59 Problem Notes None recorded. Procedures Surgical History Date Name Laterality Status Provider Name and Address Organization Details Recorded Time Tubal Ligation completed Hussain Card [place] - [facility] [place] 05/05/2025 15:21:17 hysterectomy completed Hussain Card [place] - [facility] [place] 05/05/2025 15:21:24 insertion of infusion pump beneath skin completed Hussain Card [place] - [facility] [place] 05/05/2025 15:22:02 placement of stent in coronary artery completed Hussain Card [place] - [facility] [place] 05/05/2025 15:22:18 appendectomy completed Hussain Card [place] - [facility] [place] 05/05/2025 15:22:36 cholecystectomy completed Hussain Card [place] - [facility] [place] 05/05/2025 15:22:46 Imaging Results None recorded. Procedure Notes None recorded. Medical Equipment None Reported. Allergies Allergen ID Allergen Name Allergen Category Reaction Reaction Severity Criticality Documentation Date Start Date Code Code System Note Provider Name and Address Organization Details Recorded Time 421011 tramadol medicatio n Not available Not available Not available 05/05/2025 40182 RxNorm TERESA Barney [facility] [place] 15:01:58 764977 Cipro medicatio n Not available Not available Not available 05/05/2025 10110 3 RxNorm TERESA Barney [facility] [place] 15:02:09 807127 Demerol medicatio n Not available Not available Not available 05/05/2025 75865 1 RxNorm TERESA Barney [facility] [place] 15:03:24 Medications Name Sig Start Date Stop Date Status Note LastModified by Organization Details LastModified Time quetiapine 25 mg tablet Take 1/2 (12.5 mg) tablet in the morning and 1 tablet (25 mg) at bedtime. active Not Available Not Available No t Available amoxicillin 500 mg capsule Take one capsule by mouth three times a day until gone. 05/05 completed Not Available Not Available Not Available atorvastati n 40 mg tablet TAKE 1 TABLET(40 mg) orally at bedtime nightly active Not [...] Not Available Not Available No t Available hydrocortis one acetate 25 mg rectal suppository use 1 supposito ry(25 mg) rectally daily As Needed for hemorrhoi ds active Not Available Not Available No t [...] Not Available Not Available No t Available levofloxaci n 750 mg tablet take 1 tablet(75 0 mg) orally daily for 5 days active Not Available Not Available No t Available methylpredn isolone 4 mg tablets in a dose pack take as directed on package active Not Available Not Available No t Available albuterol sulfate HFA 90 mcg/actuati on aerosol inhaler inhale 2 puffs every 4 hours as needed As Needed for Shortness Of Breath Or Wheezing active Not Available Not Available No t Available ondansetron 4 mg disintegrat ing tablet place 1 tablet(4 mg) on tongue and let dissolve every 8 hours As Needed for nausea and vomiting for 4 days active Not Available Not Available No t Available cefdinir 300 mg capsule take 1 capsule(3 00 mg) orally twice a day for 10 days active Not [...] FeroSul 325 mg (65 mg iron) tablet TAKE 1 TABLET(32 5 mg) orally twice a day active [...] Pulse oximetry Heart rate Respiratory rate Systolic And Diastolic Provider Name and Address Organization Details Last Updated DateTime 167.64 cm 31.5 kg/m2 19821.5 1 g 98.4 [degF] 94 % 94 % 72 /min 18 /min 135/83 mm[Hg] Hussain LOPEZ [facility] [place] 15:01:22 Social History Question Answer Notes LastModified by Organizat ion Details LastModified Time Tobacco Smoking Status Former Smoker TERESA Barney [facility] [place] 05/05/2025 15:13:37 Do You Have An Advance Directive? No [email or web address] Information n ot available 05/05/2025 Do You Wear A Helmet When Biking? Yes [email or web address] Information not available 05/05/2025 Are You Blind Or Do You Have Difficulty Seeing? No [email or web address] Information n ot available 05/05/2025 What Is Your Level Of Caffeine Consumption? Moderate [email or web address] Information not available 05/05/2025 In The 14 Days Before Symptom Onset, Have You Had Close Contact With A Laboratory-confirm ed COVID-19 While That Case Was Ill? No Information n ot available 05/05/2025 In The 14 Days Before Symptom Onset, Have You Had Close Contact With A Person Who Is Under Investigation For COVID-19 While That Person Was Ill? No [email or web address] Information not available 05/05/2025 Have You Been To An Area Known To Be High Risk For COVID-19? No [email or web address] Information not available 05/05/2025 Are You Deaf Or Do You Have Serious Difficulty Hearing? No [email or web address] Information not available 05/05/2025 What Type Of Diet Are You Following? REGULAR [email or web address] Information n ot available 05/05/2025 Have You Processed Blood Or Body Fluids From An Ebola Virus Disease Patient Without Appropriate PPE? No Information not available 05/05/2025 Do You Reside In Or Have You Traveled To An Area Where Ebola Virus Transmission Is Active? No [email or web address] Information not available 05/05/2025 Have There Been Any Changes To Your Family Or Social Situation? No [email or web address] Information no t available 05/05/2025 What Is The Fluoride Status Of Your Home? Unknown [email or web address] Information not available 05/05/2025 When Did You Quit Smoking? 1-5yearssince lastcigarette [email or web address] Information not available 05/05/2025 Are There Any Guns Present In Your Home? No [email or web address] Information not available 05/05/2025 Have You Recently Or Are You Planning To Travel To An Area With Zika Virus? No [email or web address] Information not available 05/05/2025 Do You Use Insect Repellent Routinely? Yes [email or web address] Information not available 05/05/2025 Do You Feel Safe At Home? Yes Information not available 05/05/2025 Do You Have A Medical Power Of Fbi Investigator? No [email or web address] Information not available 05/05/2025 What Was The Date Of Your Most Recent Tobacco Screening? 05/05/2025 [email or web address] Information not available 05/05/2025 What Is Your Current Pack Years? 10packyears [email or web address] Information not available 05/05/2025 Do You Have Any Pets? No akkxsptz30 Information not available 05/05/2025 What Is Your Relationship Status? [email or web address] Information not available 05/05/2025 Do You Use Your Seat Belt Or Car Seat Routinely? Yes [email or web address] Information not available 05/05/2025 Do You Have Smoke And Carbon Monoxide Detectors In Your Home? Yes [email or web address] Information not available 05/05/2025 At What Age Did You Start Smoking Tobacco? 20 mkhedltx97 Information not available 05/05/2025 Are You Passively Exposed To Smoke? No [email or web address] Information no t available 05/05/2025 How Much Tobacco Do You Smoke? No Information not available 05/05/2025 What Types Of Sporting Activities Do You Participate In? None, Cant Breath Or Move Much [email or web address] Information not available 05/05/2025 Do You Use Sunscreen Routinely? Yes [email or web address] Information not available 05/05/2025 Has Tobacco Cessation Counseling Been Provided? Yes kyptvzly08 Information not available 05/05/2025 On What Date Was Tobacco Cessation Counseling Provided? 05/05/2025 [email or web address] Information not available 05/05/2025 How Many Years Have You Smoked Tobacco? 40 hdbooqwe50 Information not available 05/05/2025 Do You Have Difficulty Walking Or Climbing Stairs? No [email or web address] Information not available 05/05/2025 Are You Currently In School? No [email or web address] Information not available 05/05/2025 Sex: Unknown Functional Status Question Answer Note LastModified by Organizat ion Details LastModified Time Do you use any illicit or recreational drugs? No [email or web address] Information not available 05/05/2025 Do you or have you ever used any other forms of tobacco or nicotine? No [email or web address] Information not available 05/05/2025 What is your level of alcohol consumption? None Information not available 05/05/2025 Are you currently employed? No rvtvmnwe83 Information not available 05/05/2025 Do you have transportation difficulties? No ttlubugc27 Information not available 05/05/2025 Are you able to walk? YESWOREST Information not available 05/05/2025 Do you have difficulty doing errands alone? No mifcswih22 Information not available 05/05/2025 Are you able to care for yourself? Yes [email or web address] Information not available 05/05/2025 Do you have difficulty dressing or bathing? No [email or web address] Information not available 05/05/2025 What is your exercise level? None [email or web address] Information not available 05/05/2025 Mental Status Question Answer Note LastModified by Organizat ion Details LastModified Time Do you feel stressed (tense, restless, nervous, or anxious, or unable to sleep at night)? [id number] [email or web address] Information not available 05/05/2025 Do you have difficulty concentrating, remembering or making decisions? No [email or web address] Information no t available 05/05/2025 Family History Nothing Reported. Medical History No medical history recorded. Gynecological HistoryNo gynecological history recorded. Obstetrics History GPAL:G 0 P 0 0 0 0 Immunizations Vaccine Type Date Status Note Provider Nam e and Address Organization Details Recorded Time COVID-19, mRNA, LNP-S, PF, 100 mcg/0.5mL dose or 50 mcg/0.25mL dose 1 completed Hussain cuellar, [place] - [facility] [place] 05/05/2025 15:01:45 COVID-19 vaccine, vector-nr, rS-Ad26, PF, 0.5 mL 1 completed Hussain Card null, [place] - [facility] - [place] & [place] 05/05/2025 15:01:45 COVID-19, mRNA, LNP-S, PF, 50 mcg/0.5 mL 4 completed Hussain cuellar, [place] - [facility] [place] 05/05/2025 15:01:45 pneumococcal polysaccharide PPV23 5 completed Hussain cuellar, [place] - [facility] [place] 05/05/2025 15:01:45 Influenza, split virus, trivalent, PF 4 completed Hussain Card null, [place] - [facility] [place] 05/05/2025 15:01:45 Influenza, split virus, quadrivalent, PF 0 completed Hussain Pradoles null, [place] - [facility] [place] 05/05/2025 15:01:45 Influenza, split virus, quadrivalent, PF 2 completed Hussain Card null, [place] - [facility] [place] 05/05/2025 15:01:45 Influenza, split virus, quadrivalent, PF 5 completed Hussain Card null, [place] - [facility] [place] 05/05/2025 15:01:45 Influenza, split virus, quadrivalent, PF 8 completed Hussain Card null, [place] - [facility] [place] 05/05/2025 15:01:45 Past Encounters Encounter ID Performer Location Encounter Start Date Encounter Closed Date Diagnosis/Indication Diagnosis SNOMED-CT Code Diagnosis ICD10 Code Diagnosis Note [id number] CECIL WEEKS 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 Rubin Arenas s for GI issues at [facility] in [place] for last 25 yearsdue to transporta tion needs, [place] equested referral for GI closer to homereferr al sent Prediabetes 797469279 R7 3.03 history of prediabete sawaiting lab results Screening for malignant neoplasm of lung 727909300 Z12.2 history of smokingqui t 5 years agosent order for LDCT Pain assoc iated with defecation 345662587 R19.8 PE showed epigastric pain with rebound tenderness reports pain with BM5-6 episodes of diarrheaCT scan orderedawa iting lab resultsf/u with office or ER if symptoms worsen or persist Hyperlipid emia screening 464560665 Z13.220 history of smokingest ablishing baseline for ptawaiting lab resultscur rently on a statin Screening for osteoporosis 275233065 Z13.820 establishi ng baseline for ptawaiting lab results Iron defic iency screening 951533391 Z13.0 establishi ng baseline for ptawaiting lab resultsrep orts B12 injections in past have helped her Essential hypertension 30271408 I10 recheck at next visit; will address if reading is high on next visitcurre ntly on metoprolol also follows cardiology [id number] ABRAHAM KULKARNI, PMHNP [facility] at [facility] [address] [place] [id number] 06/09/2025 10:02:32 06/09/2025 11:07:54 Health Concerns Section Related Observation LastModified by Organization Detai ls LastModified Time None Recorded Concern Status LastModified by Organization Details LastModified Time None Recorded Advance Directives Directive N: Payers Insurance Date Sequence Insurance Name Policy Number Policy Ayala Covered Member ID Ayala Member ID Guarantor Name 06/06/2025 1 [employer] (MEDICARE REPLACEMENT/ ADVANTAGE - HMO) Andrew Bejarano [id number] Andrew Bejarano 06/06/2025 [employer] (MEDICARE REPLACEMENT/ ADVANTAGE - PPO) Andrew Bejarano [id number] Andrew Bejarano 05/05/2025 1 [employer] (PPO) Andrew Bejarano [id number] Andrew Bejarano 06/06/2025 2 [place] [employer] CHOICES - FFS/TRADITIO NAL Andrew Bejarano [id number] Andrew Bejarano Notes Date Note Type Note Provider Name and Address Organization Details Recorded Time 05/05/2025 text/html ROS as noted in the HPI 64 y/o female with history of HTN, hyperthyroidism, anxiety, depression, congenital [...] that she sees a GI doctor in [place], Dr. Rubin Kearney, at [facility] for the past 25 years. Reports that she wants to keep seeing him but also due to her current transportation situation has difficulty making it to [place] and would like to have someplace closer [...] throat, coughing, and muscular pain. CECIL WEEKS [address] [facility], [place], [address], [facility] [place] 05/05/2025 17:11:46 OBGyn Episode No OBEpisode recorded.
--- OUTSIDE RECORDS SUMMARY | 2025-06-23 12:19 | XMS_ITS | Continuity of Care Document ---
Author Organization [facility] Address [address] [address] Care Team Providers Care Toll Line Mechanic Name Role Phone RADHA GALLO Referring Provider [phone] Assessment No assessment recorded. Plan of Treatment Reminders Order Date Submit Date Provider Last Modified By Organization Details Last Modified Time Details Appointments MENTAL HEALTH 60 2024 02:00P M BRYNN CARLSON Not available Not available Not available Establish ed Visit 30 min 2024 02:00P M CECIL WEEKS Not available Not available Not available MENTAL HEALTH 60 2024 02:00P BRYNN GALVEZ Not available Not available Not available Lab TSH + free T4, serum [address] (Laboratory), [address] [place], [address], 05/12/2025 08:04:34 lipid panel, serum 2024 025 [facility] (Laboratory), [address] [place], [address], 05/05/2025 17:25:45 iron + TIBC + ferritin, serum [address] (Laboratory), [address] [place], [address], 05/12/2025 08:04:35 CBC w/ auto diff 2024 025 [facility] (Laboratory), [address] [place], [address], 05/05/2025 17:09:33 vitamin B12 + folate, serum or blood [address] (Laboratory), [address] [place], [address], 05/12/2025 08:04:35 hemoglobi n A1C/hemog lobin total, QN, blood [address] (Laboratory), [address] [place], [address], 05/12/2025 08:04:34 amylase + lipase, serum [address] [place] [address] (Laboratory), [address] [place], [address], 05/12/2025 08:04:34 CMP, serum or plasma 2024 025 [facility] (Laboratory), [address] [place], [address], 05/05/2025 17:25:43 vitamin D, 25-hydrox y, total, serum [address] [place] [address] (Laboratory), [address] [place], [address], 05/12/2025 08:04:34 Referral gastroent erologist referral 2024 025 [email or web address] Deangelo Redd MD, [address], [place], [address], 06/06/2025 08:36:02 behaviora [facility] referral 2024 025 [email or web address] [facility] [address] [place], [address], 06/06/2025 08:36:15 Procedures None recorded. Surgeries None recorded. Imaging CT, abdomen + pelvis, w/ contrast 2024 025 [id number] [facility] (Scheduling), [address] [place], [address], 05/06/2025 08:54:22 LDCT, chest, for lung cancer screening 2024 025 [email or web address] [facility] (Scheduling), [address] [place], [address], 05/12/2025 08:04:25 Medication Orders None recorded. Patient TargetsNo targets recorded. Patient InstructionsNo instructions recorded. Reason for Referral Behavioral Health Referral f or Mixed anxiety and depressive disorder Referring Physician: Radha Gallo [facility], Encounter Date: 05/05/2025 University Manager Referral for Pancreas divisum Referring Physician: Radha Gallo [facility], Encounter Date: 05/05/2025 Results Created Date Observation Date Name Description Value Unit Range Abnormal Flag Note LastModifiedBy Organization Detail LastModifiedTime 05/05/2005/05/2025 CBC AUTO W DIFF WBC 10.3 10 4.5-11 .5 Not Available [facility] (Lab Registration) [place], [address], 05/05/2025 17:09:32 05/05/20 25 05/05/2025 CBC AUTO W DIFF RBC 4.76 10 4.25-5 .57 Not Available [facility] (Lab Registration) [address] [place], [address], 05/05/2025 17:09:32 05/05/20 25 05/05/2025 CBC AUTO W DIFF HGB 15.1 g/dL 12.0-1 5.7 Not Available [facility] (Lab Registration) [address] [place], [address], 05/05/2025 17:09:32 05/05/20 25 05/05/2025 CBC AUTO W DIFF HCT 44.2 % 36.0-4 7.0 Not Available [facility] (Lab Registration) [address] [place], [address], 05/05/2025 17:09:32 05/05/20 25 05/05/2025 CBC AUTO W DIFF MCV 92.9 fL 80-95 Not Available [facility] (Lab Registration) [address] [place], [address], 05/05/2025 17:09:32 05/05/20 25 05/05/2025 CBC AUTO W DIFF MCH 31.7 pg 27.0-3 4.0 Not Available [facility] (Lab Registration) [address] [place], [address], 05/05/2025 17:09:32 05/05/20 25 05/05/2025 CBC AUTO W DIFF MCHC 34.2 g/dL 32.0-3 6.0 Not Available [facility] (Lab Registration) [address] [place], [address], 05/05/2025 17:09:32 05/05/20 25 05/05/2025 CBC AUTO W DIFF platelet count 332 10 150-45 0 Not Available [facility] (Lab Registration) [address] [place], [address], 05/05/2025 17:09:32 05/05/20 25 05/05/2025 CBC AUTO W DIFF RDW 15.5 % 12.3-1 5.1 high Not Available [facility] (Lab Registration) [address] [place], [address], 05/05/2025 17:09:32 05/05/20 25 05/05/2025 CBC AUTO W DIFF MPV 11.1 fL 7.4-10 .4 high Not Available [facility] (Lab Registration) [address] [place], [address], 05/05/2025 17:09:32 05/05/20 25 05/05/2025 CBC AUTO W DIFF granulocyte% 63.1 % 40-75 Not Available [facility] (Lab Registration) [address] [place], [address], 05/05/2025 17:09:32 05/05/20 25 05/05/2025 CBC AUTO W DIFF lymphocyte% 27.7 % 15-57 Not Available [facility] (Lab Registration) [address] [place], [address], 05/05/2025 17:09:32 05/05/20 25 05/05/2025 CBC AUTO W DIFF monocyte% 6.0 % 4.0-12 .0 Not Available [facility] (Lab Registration) [address] [place], [address], 05/05/2025 17:09:32 05/05/20 25 05/05/2025 CBC AUTO W DIFF eosinophil% 2.2 % 0.0-4. 0 Not Available [facility] (Lab Registration) [address] [place], [address], 05/05/2025 17:09:32 05/05/20 25 05/05/2025 CBC AUTO W DIFF basophil% 0.6 % 0.0-1. 0 Not Available [facility] (Lab Registration) [address] [place], [address], 05/05/2025 17:09:32 05/05/20 25 05/05/2025 CBC AUTO W DIFF immature granulocytes % 0.4 % 0.0-0. 8 Not Available [facility] (Lab Registration) [address] [place], [address], 05/05/2025 17:09:32 05/05/20 25 05/05/2025 CBC AUTO W DIFF granulocyte# 6.52 10 Not Available [facility] (Lab Registration) [address] [place], [address], 05/05/2025 17:09:32 05/05/20 25 05/05/2025 CBC AUTO W DIFF lymphocyte# 2.86 10 Not Available [facility] (Lab Registration) [address] [place], [address], 05/05/2025 17:09:32 05/05/20 25 05/05/2025 CBC AUTO W DIFF monocyte# 0.62 10 Not Available [facility] (Lab Registration) [address] [place], [address], 05/05/2025 17:09:32 05/05/20 25 05/05/2025 CBC AUTO W DIFF eosinophil# 0.23 10 Not Available [facility] (Lab Registration) [address] [place], [address], 05/05/2025 17:09:32 05/05/20 25 05/05/2025 CBC AUTO W DIFF basophil# 0.06 10 Not Available [facility] (Lab Registration) [address] [place], [address], 05/05/2025 17:09:32 05/05/20 25 05/05/2025 CBC AUTO W DIFF immature granulocytes # 0.04 10 Not Available [facility] (Lab Registration) [address] [place], [address], 05/05/2025 17:09:32 05/05/20 25 05/05/2025 CBC AUTO W DIFF manual differential NO Not Available [facility] (Lab Registration) [address] [place], [address], 05/05/2025 17:09:32 05/05/20 25 05/05/2025 CBC AUTO W DIFF note Unles s other sanchez noted testi ng perfo rmed at: [facility] [place] [address] [phone] Bernard erazo MD CLIA: [id number] Not Available [facility] (Lab Registration) [address] [place], [address], 05/05/2025 17:09:32 05/05/20 25 05/05/2025 HEMOG LOBIN A1C glycosylated hemoglobin A1C 6.4 % 4.5-6. 2 high Not Available [facility] (Lab Registration) [address] [place], [address], 05/05/2025 17:10:39 05/05/20 25 05/05/2025 HEMOG LOBIN A1C estimated average glucose 137 mg/dL 82-131 high Not Available [facility] (Lab Registration) [address] [place], [address], 05/05/2025 17:10:39 05/05/20 25 05/05/2025 HEMOG LOBIN A1C note Unles s other sanchez noted testi ng perfo rmed at: [facility] [address] [place] [address] [phone] Bernard erazo MD CLIA: [id number] Not Available [facility] (Lab Registration) [address] [place], [address], 05/05/2025 17:10:39 05/05/20 25 05/05/2025 IRON/ TIBC/ %SAT (IRON STUDI ES) iron 43 ug/dL 35-150 Not Available [facility] (Lab Registration) [address] [place], [address], 05/05/2025 17:10:40 05/05/20 25 05/05/2025 IRON/ TIBC/ %SAT (IRON STUDI ES) total iron bind cap (TIBC) 387 ug/dL 250-45 0 Not Available [facility] (Lab Registration) [address] [place], [address], 05/05/2025 17:10:40 05/05/20 25 05/05/2025 IRON/ TIBC/ %SAT (IRON STUDI ES) % saturation 11 % 15-55 low Not Available [facility] (Lab Registration) [address], [place], [address], 05/05/2025 17:10:40 05/05/20 25 05/05/2025 IRON/ TIBC/ %SAT (IRON STUDI ES) note Cindy s other sanchez noted testi ng perfo rmed at: [facility] [address] [place] [address] [phone] Bernard erazo MD CLIA: [id number] Not Available [facility] (Lab Registration) [address], [place], [address], 05/05/2025 17:10:40 05/05/20 25 05/05/2025 THYRO ID STIMU LATIN G HORMO NE thyroid stimulating hormone 1.09 mIU/m L 0.34-4 .80 Not Available [facility] (Lab Registration) [address], [place], [address], 05/05/2025 17:24:39 05/05/20 25 05/05/2025 THYRO ID STIMU LATIN G HORMO NE note Cindy erazo other sanchez noted testi ng perfo rmed at: [facility] [address] [place] [address] [phone] Bernard erazo MD CLIA: [id number] Not Available [facility] (Lab Registration) [address], [place], [address], 05/05/2025 17:24:39 05/05/20 25 05/05/2025 T4 FREE T4,free 1.00 NG/dL 0.76-1 .46 Effec tive today 013 new Refer ence Range . Not Available [facility] (Lab Registration) [address], [place], [address], 05/05/2025 17:24:40 05/05/20 25 05/05/2025 T4 FREE note Cindy s other sanchez noted testi ng perfo rmed at: [facility] [address] [place] [address] [phone] Bernard erazo MD CLIA: [id number] Not Available [facility] (Lab Registration) [address] [place], [address], 05/05/2025 17:24:40 05/05/20 25 05/05/2025 AMYLA SE amylase 66 U/L 25-115 Not Available [facility] (Lab Registration) [address] [place], [address], 05/05/2025 17:25:41 05/05/20 25 05/05/2025 AMYLA SE note Unles s other sanchez noted testi ng perfo rmed at: [facility] [address] [place] [address] [phone] Bernard erazo MD CLIA: [id number] Not Available [facility] (Lab Registration) [address] [place], [address], 05/05/2025 17:25:41 05/05/20 25 05/05/2025 LIPAS E lipase 64 U/L 16-77 Not Available [facility] (Lab Registration) [address] [place], [address], 05/05/2025 17:25:42 05/05/20 25 05/05/2025 LIPAS E note Unles s other sanchez noted testi ng perfo rmed at: [facility] [address] [place] [address] [phone] Bernard erazo MD CLIA: [id number] Not Available [facility] (Lab Registration) [address] [place], [address], 05/05/2025 17:25:42 05/05/20 25 05/05/2025 COMP METAB OLIC PANEL sodium 139 mmol/ L 136-14 5 Not Available [facility] (Lab Registration) [address] [place], [address], 05/05/2025 17:25:43 05/05/20 25 05/05/2025 COMP METAB OLIC PANEL potassium 4.1 mmol/ L 3.5-5. 1 Not Available [facility] (Lab Registration) [address] [place], [address], 05/05/2025 17:25:43 05/05/20 25 05/05/2025 COMP METAB OLIC PANEL chloride 102 mmol/ L 98-107 Not Available [facility] (Lab Registration) [address] [place], [address], 05/05/2025 17:25:43 05/05/20 25 05/05/2025 COMP METAB OLIC PANEL carbon dioxide 29 mmol/ L 21-32 Not Available [facility] (Lab Registration) [address] [place], [address], 05/05/2025 17:25:43 05/05/20 25 05/05/2025 COMP METAB OLIC PANEL anion gap 8.0 Not Available [facility] (Lab Registration) [address] [place], [address], 05/05/2025 17:25:43 05/05/20 25 05/05/2025 COMP METAB OLIC PANEL glucose 110 mg/dL 70-110 Not Available [facility] (Lab Registration) [address] [place], [address], 05/05/2025 17:25:43 05/05/20 25 05/05/2025 COMP METAB OLIC PANEL blood urea nitrogen 15 mg/dL 7-18 Not Available [facility] (Lab Registration) [address] [place], [address], 05/05/2025 17:25:43 05/05/20 25 05/05/2025 COMP METAB OLIC PANEL creatinine 1.2 mg/dL 0.6-1. 0 high Not Available [facility] (Lab Registration) [address], [place], [address], 05/05/2025 17:25:43 05/05/2005/05/2025 COMP METAB OLIC PANEL BUN/creatini ne ratio 12.5 9-21 Not Available [facility] (Lab Registration) [address], [place], [address], 05/05/2025 17:25:43 05/05/20 25 05/05/2025 COMP METAB [...] lemus ing kiney funct ion. Not Available [facility] (Lab Registration) [address], [place], [address], 05/05/2025 17:25:43 05/05/20 25 05/05/2025 COMP METAB OLIC PANEL osmolality (calculated) 291 mOsm/ kg 275-30 1 OSMOL ALITY IS A CALCU LATIO N UTILI ZING THE SERUM /PLAS MA SODIU M, GLUCO SE AND UREA NITRO GEN (BUN) LEVEL S. FOR THE MOST ACCUR ATE RESUL T A MEASU RED SERUM OSMOL ALITY IS SUGGE STED. Not Available [facility] (Lab Registration) [address], [place], [address], 05/05/2025 17:25:43 05/05/2005/05/2025 COMP METAB OLIC PANEL total protein 8.0 g/dL 6.4-8. 2 Not Available [facility] (Lab Registration) [address], [place], [address], 05/05/2025 17:25:43 05/05/20 25 05/05/2025 COMP METAB OLIC PANEL albumin 3.9 g/dL 3.4-5. 0 Not Available [facility] (Lab Registration) [address] [place], [address], 05/05/2025 17:25:43 05/05/20 25 05/05/2025 COMP METAB OLIC PANEL calcium 8.9 mg/dL 8.5-10 .1 Not Available [facility] (Lab Registration) [address] [place], [address], 05/05/2025 17:25:43 05/05/20 25 05/05/2025 COMP METAB OLIC PANEL corrected calcium 9.0 mg/dL 8.5-10 .1 Not Available [facility] (Lab Registration) [address] [place], [address], 05/05/2025 17:25:43 05/05/20 25 05/05/2025 COMP METAB OLIC PANEL bilirubin total 0.5 mg/dL 0.4-1. 5 Not Available [facility] (Lab Registration) [address] [place], [address], 05/05/2025 17:25:43 05/05/20 25 05/05/2025 COMP METAB OLIC PANEL AST (SGOT) 18 U/L 15-37 Not Available [facility] (Lab Registration) [address] [place], [address], 05/05/2025 17:25:43 05/05/20 25 05/05/2025 COMP METAB OLIC PANEL ALT (SGPT) 12 U/L 12-78 Not Available [facility] (Lab Registration) [address] [place], [address], 05/05/2025 17:25:43 05/05/20 25 05/05/2025 COMP METAB OLIC PANEL alk phosphatase 136 U/L 53-141 Not Available [facility] (Lab Registration) [address] [place], [address], 05/05/2025 17:25:43 05/05/20 25 05/05/2025 COMP METAB OLIC PANEL note Unles s other sanchez noted testi ng perfo rmed at: [facility] [address] [place] [address] [phone] Bernard erazo MD CLIA: [id number] Not Available [facility] (Lab Registration) [address] [place], [address], 05/05/2025 17:25:43 05/05/20 25 05/05/2025 LIPID PANEL triglyceride 419 mg/dL 20-200 high The Natio nal Elsie stero l Educa tion Progr am (NCEP ) has set the follo wing guide lines for Fasti ng Trigl yceri philippe: JUANITA L: <150 mg/dL BORDE RLINE HIGH: 150 - 199 mg/dL HIGH: 200 - 499 mg/dL VERY HIGH: > or =500 mg/dL Not Available [facility] (Lab Registration) [address] , [place], [address], 05/05/2025 17:25:45 05/05/20 25 05/05/2025 LIPID PANEL cholesterol 164 mg/dL 0-200 The Natio nal Elsie stero l Educa tion Progr am (NCEP ) has set the follo wing guide lines for Fasti ng Elsie stero l: ARIA ABLE: <200 mg/dL BORDE RLINE HIGH: 200 - 239 mg/dL HIGH: > or =240 mg/dL Not Available [facility] (Lab Registration) [address], [place], [address], 05/05/2025 17:25:45 05/05/20 25 05/05/2025 LIPID PANEL HDL cholesterol 56 mg/dL 60- low The Natio nal Elsie stero l Educa tion Progr am (NCEP ) has set the follo wing guide lines for Fasti ng HDL Elsie stero l: LOW HDL: <40 mg/dL JUANITA L: 40 - 60 mg/dL ARIA ABLE: >60 mg/dL Not Available [facility] (Lab Registration) [address], [place], [address], 05/05/2025 17:25:45 05/05/20 25 05/05/2025 LIPID PANEL [...] > or = 190 mg/dL Not Available [facility] (Lab Registration) [address], [place], [address], 05/05/2025 17:25:45 05/05/20 25 05/05/2025 LIPID PANEL chol/HDL ratio 3 -5 Not Available [facility] (Lab Registration) [address], [place], [address], 05/05/2025 17:25:45 05/05/20 25 05/05/2025 LIPID PANEL note Unles s other sanchez noted testi ng perfo rmed at: [facility] [address] [place] [address] [phone] Bernard erazo MD CLIA: [id number] Not Available [facility] (Lab Registration) [address], [place], [address], 05/05/2025 17:25:45 05/05/20 25 05/05/2025 VITAM IN D TOTAL (D2+D 3) vitamin D25 (D2+D3) 11.6 NG/mL 30-100 low Not Available [facility] (Lab Registration) [address] [place], [address], 05/05/2025 17:25:47 05/05/20 25 05/05/2025 VITAM IN D TOTAL (D2+D 3) note Cindy hatfield sanchez noted testi ng perfo rmed at: [facility] [address] [place] [address] [phone] Bernard erazo MD CLIA: [id number] Not Available [facility] (Lab Registration) [address] [place], [address], 05/05/2025 17:25:47 05/05/20 25 05/05/2025 HILLARY TIN ferritin 35 NG/mL 8-388 Not Available [facility] (Lab Registration) [address] [place], [address], 05/05/2025 17:25:48 05/05/20 25 05/05/2025 HILLARY TIN note Cindy hatfield sanchez noted testi ng perfo rmed at: [facility] [address] [place] [address] [phone] Bernard erazo MD CLIA: [id number] Not Available [facility] (Lab Registration) [address] [place], [address], 05/05/2025 17:25:48 05/05/20 25 05/05/2025 VITAM IN B12 vitamin B12 247 pg/mL 193-98 6 Not Available [facility] (Lab Registration) [address] [place], [address], 05/05/2025 17:25:49 05/05/20 25 05/05/2025 VITAM IN B12 folate (folic acid), serum 17.2 NG/mL 8.6-58 .9 Not Available [facility] (Lab Registration) [address] [place], [address], 05/05/2025 17:25:49 05/05/20 25 05/05/2025 VITAM IN B12 note Cindy erazo other sanchez noted testi ng perfo rmed at: [facility] [address] [facility] [place] [address] [phone] Bernard erazo MD CLIA: [id number] Not Available [facility] (Lab Registration) [address] [place], [address], 05/05/2025 17:25:49 05/05/20 25 05/05/2025 CT ABD/p [place] W IV [facility] [address] Phone: Fax: Name: ANDREW BEJARANO Exam Date: 05/05/20 : 1959 Age 64 years Gender : F Access ion: [id number] Physic melodie: RADHA YEH Facili ty: [...] you for referr ing ANDREW BEJARANO to [facility]. Legall y authen ticate d by BARBARA Woo MD 05-05 18:49: 00 CC'ed Logic: Orderi ng Provid er: DENNY GARCIA CC Provid er: LEO RODRIGUEZ Attend ing Provid er: DENNY GARCIA Referr ing Provid er: DENNY GARCIA Admitt ing Provid er: DENNY [email or web address] [facility] (Radiology) [address], [place], [address], 05/06/2025 12:40:28 05/05/20 25 05/05/2025 CT, abdom en + pelvi s, w/ contr ast No observ ation record ed. [facility] (Radiology) [address] [place], [address], 05/06/2025 12:41:26 05/05/20 25 05/05/2025 CT, abdom en + pelvi s, w/ contr ast No observ ation record ed. [facility] (Radiology) [address] , [place], [address], 05/06/2025 12:41:26 Result Notes None recorded. Problems Name Problem SNOMED Code Status Onset Date Resolution Date Notes Provider Name and Address Organization Details Recorded Time Essential hypertension 50676941 Active 2024 Hussain Card null, [place] - [facility] [place] [facility] [place] 15:08:24 Prediabetes 739313601 Active 2024 Hussain Card [place] [facility] [place] 15:08:43 Mixed anxiety and depressive disorder 100546906 Active 2024 Hussain Card [place], [place] [facility] [place] 15:09:02 Hyperthyroidis m 96292648 Active 2024 Hussain Card [place] [facility] [place] 15:09:26 Pancreas divisum 07084065 Active 2024 Hussain Card [place], [place] [facility] [place] 15:09:59 Problem Notes None recorded. Procedures Surgical History Date Name Laterality Status Provider Name and Address Organization Details Recorded Time Tubal Ligation completed Hussain Card [place] [facility] [place] 05/05/2025 15:21:17 hysterectomy completed Hussain Card [place] [facility] [place] 05/05/2025 15:21:24 insertion of infusion pump beneath skin completed Hussain Card [place] [facility] [place] 05/05/2025 15:22:02 placement of stent in coronary artery completed Hussain Card [place] [facility] [place] 05/05/2025 15:22:18 appendectomy completed Hussain Card [place] [facility] [place] 05/05/2025 15:22:36 cholecystectomy completed Hussain Card [place] [facility] [place] 05/05/2025 15:22:46 Imaging Results None recorded. Procedure Notes None recorded. Medical Equipment None Reported. Allergies Allergen ID Allergen Name Allergen Category Reaction Reaction Severity Criticality Documentation Date Start Date Code Code System Note Provider Name and Address Organization Details Recorded Time 198314 tramadol medicatio n Not available Not available Not available 05/05/2025 93670 RxNorm TERESA Barney [facility] & [place] 15:01:58 120356 Cipro medicatio n Not available Not available Not available 05/05/2025 95586 3 RxNorm TERESA Barney [facility] & [place] 15:02:09 440032 Demerol medicatio n Not available Not available Not available 05/05/2025 87262 1 RxNorm TERESA Barney [facility] & [place] 15:03:24 Medications Name Sig Start Date Stop [...] Last Updated DateTime 167.64 cm 31.5 kg/m2 15908.5 1 g 98.4 [degF] 94 % 94 % 72 /min 18 /min 135/83 mm[Hg] Hussain LOPEZ [facility] & [place] 15:01:22 Social History Question Answer Notes LastModified by Organizat ion Details LastModified Time Tobacco Smoking Status Former Smoker TERESA Barney [facility] & [place] 05/05/2025 15:13:37 Do You Have An Advance Directive? No [email or web address] Information n ot available 05/05/2025 Do You Wear A Helmet When Biking? Yes [email or web address] Information not available 05/05/2025 Are You Blind Or Do You Have Difficulty Seeing? No [email or web address] Information n ot available 05/05/2025 What Is Your Level Of Caffeine Consumption? Moderate [email or web address] Information not available 05/05/2025 In The 14 Days Before Symptom Onset, Have You Had Close Contact With A Laboratory-confirm ed COVID-19 While That Case Was Ill? No Information n ot available 05/05/2025 In The 14 Days Before Symptom Onset, Have You Had Close Contact With A Person Who Is Under Investigation For COVID-19 While That Person Was Ill? No Information not available 05/05/2025 Have You Been To An Area Known To Be High Risk For COVID-19? No [email or web address] Information not available 05/05/2025 Are You Deaf Or Do You Have Serious Difficulty Hearing? No [email or web address] Information not available 05/05/2025 What Type Of Diet Are You Following? REGULAR [email or web address] Information n ot available 05/05/2025 Have You Processed Blood Or Body Fluids From An Ebola Virus Disease Patient Without Appropriate PPE? No [email or web address] Information not available 05/05/2025 Do You Reside In Or Have You Traveled To An Area Where Ebola Virus Transmission Is Active? No [email or web address] Information not available 05/05/2025 Have There Been Any Changes To Your Family Or Social Situation? No Information no t available 05/05/2025 What Is The Fluoride Status Of Your Home? Unknown [email or web address] Information not available 05/05/2025 When Did You Quit Smoking? 1-5yearssince lastcigarette Information not available 05/05/2025 Are There Any Guns Present In Your Home? No [email or web address] Information not available 05/05/2025 Have You Recently Or Are You Planning To Travel To An Area With Zika Virus? No [email or web address] Information not available 05/05/2025 Do You Use Insect Repellent Routinely? Yes [email or web address] Information not available 05/05/2025 Do You Feel Safe At Home? Yes [email or web address] Information not available 05/05/2025 Do You Have A Medical Power Of Cardiology Consultant? No [email or web address] Information not available 05/05/2025 What Was The Date Of Your Most Recent Tobacco Screening? 05/05/2025 [email or web address] Information not available 05/05/2025 What Is Your Current Pack Years? 10packyears [email or web address] Information not available 05/05/2025 Do You Have Any Pets? No [email or web address] Information not available 05/05/2025 What Is Your Relationship Status? [email or web address] Information not available 05/05/2025 Do You Use Your Seat Belt Or Car Seat Routinely? Yes [email or web address] Information not available 05/05/2025 Do You Have Smoke And Carbon Monoxide Detectors In Your Home? Yes [email or web address] Information not available 05/05/2025 At What Age Did You Start Smoking Tobacco? 20 [email or web address] Information not available 05/05/2025 Are You Passively Exposed To Smoke? No [email or web address] Information no t available 05/05/2025 How Much Tobacco Do You Smoke? No [email or web address] Information not available 05/05/2025 What Types Of Sporting Activities Do You Participate In? None, Cant Breath Or Move Much [email or web address] Information not available 05/05/2025 Do You Use Sunscreen Routinely? Yes [email or web address] Information not available 05/05/2025 Has Tobacco Cessation Counseling Been Provided? Yes [email or web address] Information not available 05/05/2025 On What Date Was Tobacco Cessation Counseling Provided? 05/05/2025 [email or web address] Information not available 05/05/2025 How Many Years Have You Smoked Tobacco? 40 [email or web address] Information not available 05/05/2025 Do You Have Difficulty Walking Or Climbing Stairs? No Information not available 05/05/2025 Are You Currently In School? No [email or web address] Information not available 05/05/2025 Sex: Unknown Functional Status Question Answer Note LastModified by Organizat ion Details LastModified Time Do you use any illicit or recreational drugs? No [email or web address] Information not available 05/05/2025 Do you or have you ever used any other forms of tobacco or nicotine? No [email or web address] Information not available 05/05/2025 What is your level of alcohol consumption? None [email or web address] Information not available 05/05/2025 Are you currently employed? No [email or web address] Information not available 05/05/2025 Do you have transportation difficulties? No [email or web address] Information not available 05/05/2025 Are you able to walk? YESWOREST [email or web address] Information not available 05/05/2025 Do you have difficulty doing errands alone? No [email or web address] Information not available 05/05/2025 Are you able to care for yourself? Yes [email or web address] Information not available 05/05/2025 Do you have difficulty dressing or bathing? No [email or web address] Information not available 05/05/2025 What is your exercise level? None [email or web address] Information not available 05/05/2025 Mental Status Question Answer Note LastModified by Organizat ion Details LastModified Time Do you feel stressed (tense, restless, nervous, or anxious, or unable to sleep at night)? [id number] [email or web address] Information not available 05/05/2025 Do you have difficulty concentrating, remembering or making decisions? No [email or web address] Information no t available 05/05/2025 Family History Nothing Reported. Medical History No medical history recorded. Gynecological HistoryNo gynecological history recorded. Obstetrics History GPAL:G 0 P 0 0 0 0 Immunizations Vaccine Type Date Status Note Provider Nam e and Address Organization Details Recorded Time COVID-19, mRNA, LNP-S, PF, 100 mcg/0.5mL dose or 50 mcg/0.25mL dose 1 completed Hussain cuellar, [place] - [facility] & [place] 05/05/2025 15:01:45 COVID-19 vaccine, vector-nr, rS-Ad26, PF, 0.5 mL 1 completed Hussain Card null, [place] - [facility] & [place] 05/05/2025 15:01:45 COVID-19, mRNA, LNP-S, PF, 50 mcg/0.5 mL 4 completed Hussain Card null, [place] - [facility] & [place] 05/05/2025 15:01:45 pneumococcal polysaccharide PPV23 5 completed Hussain cuellar, [place] - [facility] & [place] 05/05/2025 15:01:45 Influenza, split virus, trivalent, PF 4 completed Hussani Card null, [place] - [facility] & [place] 05/05/2025 15:01:45 Influenza, split virus, quadrivalent, PF 0 completed Hussain Card null, [place] - [facility] [place] & [place] 05/05/2025 15:01:45 Influenza, split virus, quadrivalent, PF 2 completed Hussain Card null, [place] [facility] [place] & [place] 05/05/2025 15:01:45 Influenza, split virus, quadrivalent, PF 5 completed Hussain Card null, [place] [facility] [place] 05/05/2025 15:01:45 Influenza, split virus, quadrivalent, PF 8 completed Hussain Card null, [place] [facility] [place] 05/05/2025 15:01:45 Past Encounters Encounter ID Performer Location Encounter Start Date Encounter Closed Date Diagnosis/Indication Diagnosis SNOMED-CT Code Diagnosis ICD10 Code Diagnosis Note [id number] CECIL WEEKS [facility] [address] [id number] 05/05/2025 14:06:57 05/06/2025 09:24:24 Hyperthyroidism 58304789 E05.90 history of hyperthyro idawaiting lab resultsest ablishing baseline for ptcurrentl y on levothyrox ine from previous PCPwill reassess pending results Mixed anxi ety and depressive disorder 027979832 F41.8 pt wants behavioral health to followrefe rral sentreport s history of previously taking Valium and xanaxrepor ts that she has taken xanax for the last 35+ years Pancreas divisum [id number] 9 Q45.3 history of congenital pancreas malformati onawaiting lab resultsPE showed epigastric tenderness with rebound tenderness has seen Dr. Rubin Arenas s for GI issues at [facility] in [place] for last 25 yearsdue to transporta tion needs, [place] equested referral for GI closer to homereferr al sent Prediabetes 136738928 R7 3.03 history of prediabete sawaiting lab results Screening for malignant neoplasm of lung 810339256 Z12.2 history of smokingqui t 5 years agosent order for LDCT Pain assoc iated with defecation 630503121 R19.8 PE showed epigastric pain with rebound tenderness reports pain with BM5-6 episodes of diarrheaCT scan orderedawa iting lab resultsf/u with office or ER if symptoms worsen or persist Hyperlipid emia screening 734395741 Z13.220 history of smokingest ablishing baseline for ptawaiting lab resultscur rently on a statin Screening for osteoporosis [id number] Z13.820 establishi ng baseline for ptawaiting lab results Iron defic iency screening 032101800 Z13.0 establishi ng baseline for ptawaiting lab resultsrep orts B12 injections in past have helped her Essential hypertension 02222075 I10 recheck at next visit; will address [...] HEALTH CHOICES - FFS/TRADITIO NAL Andrew Bejarano [id number] Andrew Bejarano 05/05/2025 1 [employer] (MEDICARE REPLACEMENT/ ADVANTAGE - HMO) Andrew Bejarano [id number] Andrew Bejarano Notes Date Note Type Note [...] that she sees a GI doctor in [place], Dr. Rubin Kearney, at [facility] for the past 25 years. Reports that she wants to keep seeing him but also due to her current transportation situation has difficulty making it to [place] and would like to have someplace closer [...] throat, coughing, and muscular pain. CECIL WEEKS [address] [place] [address], [id number], [facility] [place] 05/05/2025 17:11:46 OBGyn Episode No OBEpisode recorded.
--- OUTSIDE RECORDS SUMMARY | 2025-06-23 12:19 | XMS_ITS | Clinical Summary ---
Author Organization [facility] Address [address] [place] [address] Phone Care Team Providers Care Insurance Underwriting Assistant Name Role Phone Unavailable Primary Care Provider [...] - 2023-2 5 season) 2024 Influenza Vaccine (#1) 2025 2008 Hepatitis C Screening Completed 08/12/2011 Hepatitis B [...] PM EDT) Hep Bs Ag Negative Negative [facility] Hep B Core IgM Negative Negative [facility] Hep A IgM Negative Negative [facility] Hep C Ab Negative Negative [facility] Blood specimen (specimen) UPPER LIMB STRUCTURE / Unknown 08/12/2011 12:19 PM EDT 08/12/2011 9:31 PM EDT us Juan C Mcmanus MD CHEMISTRY ORDERABLES Edit ed [facility] [address] [place] [address] from Last 3 Months or Most Recently Relevant to Health Maintenance Insurance MEDICARE [place] PART A AND B MEDICAID [place] Member Subscriber Plan / Payer (Ef fective 2011-Present) Name:Linda Arteaga Relation to Subscriber:Self Name:Linda Arteaga Payer ID:Not on file Group ID:Not on file Type:Not on file Address: [address] [place] [id number] [place] [address] MEDICAID [place]
--- OUTSIDE RECORDS SUMMARY | 2025-06-23 12:20 | XMS_ITS | Clinical Summary ---
Author Organization Healthcare Address [address] [place] [address] Care Team Providers Care Management Consulting Name Role Phone Oskar Donovan MD Primary Care Provider [phone] Medications No known medications Active Problems No [...] 07/29/2021 07/29/2020, 07/24/2020 [facility]-Colorectal Cancer Screening 07/29/2021 SCT-HHLSG-13 Vaccine (3 - season) 2024 10/09/2021, 02/02/2021 [facility]-Influenza Vaccine (#1) 08/01/202508/18, 09/23/2018, 09/15/2015, Additional history exists [facility]-RSV Vaccine: [...] ORDERABLES Final Resul t Performing Organization Address City/[facility] Co de Phone Number HEALTHCARE LAB [address] [place] [address] * [place] Hepatitis C Antibody (04/11/2022 6:36 PM EDT) Hepatitis C Antibody Negative Negative 04/11/2022 9:56 PM EDT HEALTHCARE LAB Blood Venous blood specimen / Unknown Venipuncture / Unknown 04/11/2022 6:36 PM EDT 04/11/2022 6:43 PM EDT Leland Miller MD LAB BLOOD ORDERABLES Final Resul t Performing Organization Address City/[facility] Co de Phone Number HEALTHCARE LAB [address] [place] [address] from Last 3 Months or Most Recently Relevant to Health Maintenance Insurance [facility] MEDICARE Care Teams Management Consulting Relationship Specialty Start Date End Date Oskar Donovan MD [address] [place] [address] PCP - General 04/13/21
--- NOTE | 2025-06-23 16:00 | EXP.PAIN.SOA ---
[facility] Disclaimer: The information contained in this section may have been updated after the patient was seen, as this information can be updated by other users. Medical History Internal hemorrhoid, bleeding Multiple falls Pancreatic divisum Afib Esophageal dilatation Multiple lung nodules on CT Pulmonary emphysema Hypocalcemia Hypokalemia Acidosis, lactic GI bleed Noncompliance with medication regimen Tobacco dependence in remission Pancreas divisum of wrangell pancreas Encounter for pre-operative cardiovascular clearance Orthopnea CHF (congestive heart failure) Pancreatitis Nausea vomiting and diarrhea Exhausted vascular access Rib fractures Chronic hypoxemic respiratory failure Coronary artery disease COPD (chronic obstructive pulmonary disease) HLD (hyperlipidemia) Diabetes Anxiety and depression TIA (transient ischemic attack) History of stroke History of multiple cerebrovascular accidents (CVAs) History of class III angina pectoris Typical angina Dyspnea History of pancreatitis History of CVA (cerebrovascular accident) Surgical History History of banding of hemorrhoid History of biliary duct stent placement History of hysterectomy History of cholecystectomy History of coronary artery stent placement Family History Other Family history of cancer Family history of diabetes mellitus Social History Smoking Status: Current some day smoker tobacco type: e-cigarettes years smoked: 45 how long ago did patient quit smokin years ago quit status: quit date established second hand exposure: No alcohol intake: never counseling provided: none substance use type: marijuana and crack/cocaine current occupational status: other Travel in the last 8 weeks?: None household members: significant other housing: house marital status: number of children: 2 current occupational exposures/hazards: No caffeine: Yes Have you lived/traveled outside US in past 30 days?: No Contact w/someone who lives/traveled outside US past 30 days?: No Exposure to someone with infectious disease in past 14 days?: No Do you have a fever (greater than 100.4 F or 38 C)?: No Have you tested positive for COVID-19?: No Exposed to someone with COVID-19 in past 14 days?: No Do you have a sore throat?: No Do you have a cough?: No Do you have shortness of breath?: No Do you have a headache?: No Do you have any weakness?: No Are you experiencing any nausea/vomitting?: No Do you have any diarrhea?: No Are you experiencing any unusual bleeding?: No Do you have any muscle aches/pain?: No Do you have any abdominal pain?: No Are you experiencing loss of taste or smell?: No PM Subjective & Objective Subjective Subjective:: Patient did arrive today late for her original appointment. Patient did talk to our legal receptionist and explained that she would be late and should arrive around 1145 however patient did not officially arrive to our office until closer to 1215. Patient did walk back without notifying staff that she was present. She was counseled by our signin staff that she did need to contact our office through the phone located at the waiting room and wait for staff to walk back with her. It is my understanding that patient was upset by this comment. Patient was also under the misunderstanding that we were doing a pump refill today and she was counseled that she does get those at home with the [facility] nurse. Patient then had conversations with our medical billing manager regarding her frustrations as well as being late for this appointment. I did go to see the patient however at this time she was very visibly upset and emotional and did state that she did not want to speak to anyone else and wanted to go home. Patient did state that she would reach out to Dr. Emmanuel. I did associate professor of counseling her that that was perfectly fine and to let us know in future. I did request that staff cancel out this appointment however we are not documenting on what occurred. Pain at rest (0-10 scale): 0 Objective Objective:: Not assessed Has patient had previous pain injection?: No Conservative treatment options previously tried: Home exercise plan Length of treatment: Unknown Meds Home Medications and Allergies Home Medications ?Medication ?Instructions ?Recorded ?Confirmed ?Type trazodone 100 mg tablet 100 mg PO HS 08/22/24 06/23/25 History ranolazine 500 mg tablet,extended 500 mg PO BID 30 days #60 tabs 11/19/24 06/23/25 Rx release,12 hr atorvastatin 40 mg tablet 40 mg PO HS #90 tabs 02/07/25 06/23/25 Rx levothyroxine 100 mcg tablet 100 mcg PO DAILYDM #90 tabs 02/15/25 06/23/25 Rx furosemide 20 mg tablet 40 mg (2 x 20 mg) PO DAILY 30 days 02/19/25 06/23/25 Rx #60 tabs pantoprazole 40 mg tablet,delayed 40 mg PO HS 30 days #30 tabs 04/06/25 06/23/25 Rx release montelukast 10 mg tablet 10 mg PO HS #30 tabs 04/13/25 06/23/25 Rx potassium chloride 10 mEq 10 meq PO DAILY #90 tabs 04/13/25 06/23/25 Rx tablet,extended release duloxetine 60 mg capsule,delayed 60 mg PO BID 90 days #180 caps 04/18/25 06/23/25 Rx release metformin 1,000 mg tablet 1,000 mg PO BIDWMEAL #60 tabs 04/18/25 06/23/25 Rx rivaroxaban 20 mg tablet (Xarelto) 20 mg PO QPMWITHMEAL 05/12/25 06/23/25 History hydrocortisone acetate 25 mg 25 mg WI DAILY PRN hemorrhoids #24 05/25/25 06/23/25 Rx rectal suppository (Anusol-HC) ea ondansetron 4 mg disintegrating 4 mg PO Q8H PRN nausea and 05/25/25 06/23/25 Rx tablet vomiting 4 days #12 tabs polyethylene glycol 3350 17 17 g PO DAILY PRN constiptation 05/25/25 06/23/25 Rx gram/dose oral powder (Miralax) #510 grams cholecalciferol (vitamin D3) 1,250 1,250 mcg PO WEEKLY 05/26/25 06/23/25 History mcg (50,000 unit) capsule gabapentin 600 mg tablet 600 mg PO BID 05/26/25 06/23/25 History magnesium oxide 400 mg (241.3 mg 400 mg PO BID 05/26/25 06/23/25 History magnesium) tablet ropinirole 0.25 mg tablet 0.25 mg PO HS 05/26/25 06/23/25 History ferrous sulfate 325 mg (65 mg 325 mg PO BID #60 tabs 06/08/25 06/23/25 Rx iron) tablet quetiapine 25 mg tablet 25 mg PO DAILY 06/09/25 06/23/25 History alprazolam 1 mg tablet 1 mg PO BID Anxiety #60 tabs 06/23/25 06/23/25 Rx mupirocin 2 % topical ointment 1 applic topical TID #22 grams 06/23/25 06/23/25 Rx promethazine 12.5 mg tablet 12.5 mg PO Q6HP PRN Nausea And 06/23/25 06/23/25 Rx Vomiting #60 tabs verapamil 120 mg tablet,extended 120 mg PO BID 06/23/25 06/23/25 History release New Prescriptions to Start Prescriptions: Allergies Allergy/AdvReac Type Severity Reaction Status Date / Time codeine (CODEINE) Allergy Intermediate N/V Verified 06/23/25 13:14 ketorolac (KETOROLAC) Allergy Intermediate Hives Verified 06/23/25 13:14 meperidine (MEPERIDINE) Allergy Intermediate Hives Verified 06/23/25 13:14 tramadol (TRAMADOL) Allergy Intermediate Hives Verified 06/23/25 13:14 ciprofloxacin AdvReac Severe Interacts Verified 06/23/25 13:14 with cymbalta Assessment and Plan *Assessment and plan (1) Low back pain: Status: Acute Qualifiers: Back pain laterality: right Chronicity: chronic Sciatica laterality: sciatica of right side Sciatica presence: with sciatica Qualified Code(s): M54.41 - Lumbago with sciatica, right side; G89.29 - Other chronic pain Category: Medical Code(s): M54.50 - Low back pain, unspecified
--- NOTE | 2025-06-23 16:13 | PC.NURSE ---
Pt arrived for her appt at approx 1210, called from pain management waiting room to notify that she was here for appt. Pt had previously called and notified staff she would be a few minutes late. Pt appt was scheduled for 1145. Pt arrived in pain management clinic area with her granddaughter unaccompanied by staff. Pain management staff member had pt go to room 12. Registration staff member notified me that pt became upset and told her to get out of her room when she notified pt that she does need to wait in the waiting room to be escorted to pain management area by staff as it is a locked area. Staff member was in room when I went to speak with pt to try to try to speak to pt regarding why she was upset and to discuss the situation. Pt was at that time asking staff member about getting her pain pump refilled today. Pt stated that is what she had asked for when she made the appointment. I began asking pt about her home refill status, pt stated she had already cancelled her appt with Chanelle because she was coming here to be seen. Pt stated she thought she should be seen in the office r/t her pain. Explained to pt that she could still be seen in our office at anytime and still continue to get her pain pump filled at home. I offered call Chanelle to arrange an appointment for her as we would not be able to fill her pump today. Pt stated no I have Chanelle's number and she has mine. Pt was upset over not being able to get her pump filled in office today, pt stated she didn't even know why she was here she should just leave. Pt was upset that she had been told she was late and that she should not have come back to the area without staff. Pt stated she felt like staff was trying to argue with her. I explained to pt I only wanted to have a discussion about the conversation she had and try to sort things out. Pt reported she was going to call Dr. Emmanuel, stated to her granddaughter they should just leave. I asked pt if she would still want to see provider Grisel Rangel APRN. Provider was entering room at that time. Pt stated no I do not want to talk to anyone else. Provider WALTER Campbell did enter room to try to speak with pt, she states she was also told by pt she did not want to speak to anyone else. Did contact Dr. Emmanuel front office director in [place] to notify her pt may be calling to make an appointment at their location.
== END 2025-06-23 23:59 | disposition home or self-care (01) ==
LOC: SC.PAIN 12:12
PROVIDERS: PCP Family Medicine; Visit Provider Nurse Practitioner Family
DX: M54.41 Lumbago with sciatica, right side (principal); G89.29 Other chronic pain

== ENCOUNTER 2025-06-27 21:04 | Emergency (ER) | payer MEDICARE, MEDICAID, SELFPAY ==
[2025-06-27] VITALS (7 sets, daily range): BP systolic 107–126; BP diastolic 68–92; PULSE 65–95; RESP 12–20; TEMP 36.6–36.9; O2SAT 90–93; BMI 35.5
--- NOTE | 2025-06-27 21:09 | CT_ITS ---
PROCEDURE INFORMATION: Exam: CT Abdomen And Pelvis With Contrast Exam date and time: 06/27/2025 10:13 PM Age: 64 years old Clinical indication: Abdominal pain; Additional info: Panceatic divisum, epigastric pain TECHNIQUE: Imaging protocol: Computed tomography of the abdomen and pelvis with contrast. Total images: 334 Radiation optimization: All CT scans at this facility use at least one of these dose optimization techniques: automated exposure control; mA and/or kV adjustment per patient size (includes targeted exams where dose is matched to clinical indication); or iterative reconstruction. Contrast material: ISOVUE; Contrast volume: 75 ml; Contrast route: IV; COMPARISON: CT ANGIO ABD/PEL - GI BLEED 05/25/2025 9:14 PM FINDINGS: Tubes, catheters and devices: Intrathecal catheter with generator implanted in the subcutaneous tissues of the right flank. Lungs: Bibasilar interstitial coarsening resembling fibrosis. Mild emphysematous changes. No airspace consolidation. Heart: Normal heart size. Coronary arteries: Coronary artery calcifications. Liver: Mild hepatomegaly at 19 cm. Hepatic steatosis. Normal contour. No discrete mass. Gallbladder and biliary ducts: Status post cholecystectomy. No biliary ductal dilatation. Pancreas: Mild pancreatic atrophy. No mass or acute pancreatitis. Spleen: Calcified splenic granuloma. No splenomegaly. Adrenal glands: Normal. No mass. Kidneys and ureters: No hydronephrosis or nephrolithiasis. 3 cm right renal cyst. No ureteral stones. Stomach and bowel: Fluid distended stomach. Unremarkable duodenum. No ileus or bowel obstruction. Limited bowel wall assessment. Unremarkable small bowel. Ivpz-bu-yubeapmb diverticulosis of the descending and sigmoid colon without acute diverticulitis. Unremarkable rectum. Appendix: Nonvisualized appendix. No evidence for appendicitis. Intraperitoneal space: No ascites. No free air. Vasculature: Moderate atherosclerotic vascular disease. Nonaneurysmal abdominal aorta. Major abdominal vessels enhance appropriately. Pelvic phleboliths. Lymph nodes: Unremarkable. No enlarged lymph nodes. Urinary bladder: Unremarkable as visualized. Reproductive: Status post hysterectomy. No pelvic mass. Bones/joints: Osteopenia. Moderate degenerative changes throughout the thoracolumbar spine greatest at L5-S1. Moderate to severe degenerative change right hip. No acute osseous abnormality. Soft tissues: Small fat containing umbilical hernia. Diastasis of the rectus fascia. Calcified gluteal injection granulomas. IMPRESSION: 1. No acute intra-abdominal or pelvic process. 2. Multiple chronic and incidental findings. COMMENTS: Consistent with the [employer]'s Incidental Findings Committee white paper (J Am Adela Radiol 2018): Any incidental renal lesion less than 1 cm or classified as too small to characterize, or any incidental cystic renal lesion characterized as simple-appearing, is likely benign. No follow-up imaging is recommended for these lesions per consensus recommendations based on imaging criteria.
--- NOTE | 2025-06-27 21:14 | HMH.EDGENADL ---
Discharge Plan Disposition Patient Disposition: Home, Self-Care Prescriptions Prescriptions: New sulfamethoxazole-trimethoprim 800-160 mg tablet 1 tab PO BID 7 Days Qty: 14 0RF oxycodone 5 mg tablet 5 mg PO Q8H PRN (Reason: pain) Qty: 12 0RF No Action Xarelto 20 mg tablet 20 mg PO QPMWITHMEAL quetiapine 25 mg tablet 25 mg PO DAILY verapamil 120 mg tablet extended release 120 mg PO BID alprazolam 1 mg tablet 1 mg PO BID Qty: 60 1RF mupirocin 2 % ointment 1 applic topical TID Qty: 22 1RF promethazine 12.5 mg tablet 12.5 mg PO Q6HP PRN (Reason: Nausea And Vomiting) Qty: 60 0RF ranolazine 500 mg tablet extended release 12 hr 500 mg PO BID 30 Days Qty: 60 10RF atorvastatin 40 mg tablet 40 mg PO HS Qty: 90 3RF levothyroxine 100 mcg tablet 100 mcg PO DAILYDM Qty: 90 1RF pantoprazole 40 mg tablet,delayed release (DR/EC) 40 mg PO HS 30 Days Qty: 30 0RF montelukast 10 mg tablet 10 mg PO HS Qty: 30 2RF potassium chloride 10 mEq tablet extended release 10 meq PO DAILY Qty: 90 0RF duloxetine 60 mg capsule,delayed release(DR/EC) 60 mg PO BID 90 Days Qty: 180 0RF metformin 1,000 mg tablet 1,000 mg PO BIDWMEAL Qty: 60 0RF ferrous sulfate 325 mg (65 mg iron) tablet 325 mg PO BID Qty: 60 0RF trazodone 100 mg tablet 100 mg PO HS hydrocortisone acetate [Anusol-HC] 25 mg suppository 25 mg [place] DAILY PRN (Reason: hemorrhoids) Qty: 24 0RF polyethylene glycol 3350 [Miralax] 17 gram/dose powder 17 g PO DAILY PRN (Reason: constiptation) Qty: 510 0RF ondansetron 4 mg tablet,disintegrating 4 mg PO Q8H PRN (Reason: nausea and vomiting) 4 Days Qty: 12 0RF magnesium oxide 400 mg (241.3 mg magnesium) tablet 400 mg PO BID gabapentin 600 mg tablet 600 mg PO BID Rx Instructions: TAKE 1 TABLET(600 mg) orally twice a day ropinirole 0.25 mg tablet 0.25 mg PO HS cholecalciferol (vitamin D3) 1,250 mcg (50,000 unit) capsule 1,250 mcg PO WEEKLY Rx Instructions: PT TAKES OF FRIDAYS furosemide 20 mg tablet 40 mg PO DAILY 30 Days Qty: 60 1RF Activity Restrictions/Add. Instructions Additional Instructions/Restrictions: Please follow-up with your primary care provider. Please return to the emergency department if you develop any new or worsening symptoms or become concerned for your health. I sent antibiotics and pain medications to your pharmacy. Take as needed. Please follow-up with your PCP. Clinical Impressions Clinical Impression: UTI (urinary tract infection), Diarrhea, Chronic pancreatitis Instructions Patient Instructions: DI for Acute Abdominal Pain Print Language Print Language: Armenian Discharge ED Provider: Tramaine Liu General Adult HPI <Nicolas Armendariz MD - Last Filed: 06/27/25 22:58> General Chief complaint: Abdominal Pain Stated complaint: abd pain Time Seen by Provider: 06/27/25 21:14 Mode of Arrival: EMS Source of Information: Patient and EMS Description of Symptoms (Recalled from ER Triage Doc. by RN): Hx chronic pancreatitis, nausea and diarrhea the last few days with upper abdominal pain. History of Present Illness HPI narrative: Patient is a 64-year-old female with past medical history of pancreatic divisum at , chronic pancreatitis not on chronic opiates who presents emergency department for evaluation of epigastric pain. Patient has chronic epigastric pain at baseline but has gotten particularly worse over the last 24 hours. There is associated nausea without vomiting. She has chronic black stool at baseline given that that she takes iron that is unchanged. No dysuria. No chest pain no lower abdominal pain past abdominal surgical history of previous appendectomy previous cholecystectomy previous hysterectomy. No other acute complaints at this time. Please note that above description of symptoms, in this electronic medical record under categorization of recalled from ER triage doctor by RN are reflective of an initial nursing assessment, however, is not reflective of my full history and physical exam that was personally taken and clarified. Consequentially, this preceding description of symptoms, which may include the patient's categorized chief complaint in the EMR, do not reflect my personal clinical impression, and the ultimate description of history of present illness and patient stated complaints should be deferred to this section of the note. Unless stated otherwise or congruent with this section of the note, additional signs, symptoms, or incongruence should be interpreted as inaccurate with my clinical impression. Related Data Home Medications ?Medication ?Instructions ?Recorded ?Confirmed trazodone 100 mg tablet 100 mg PO HS 08/22/24 06/27/25 rivaroxaban 20 mg tablet (Xarelto) 20 mg PO QPMWITHMEAL 05/12/25 06/27/25 cholecalciferol (vitamin D3) 1,250 1,250 mcg PO WEEKLY 05/26/25 06/27/25 mcg (50,000 unit) capsule gabapentin 600 mg tablet 600 mg PO BID 05/26/25 06/27/25 magnesium oxide 400 mg (241.3 mg 400 mg PO BID 05/26/25 06/27/25 magnesium) tablet ropinirole 0.25 mg tablet 0.25 mg PO HS 05/26/25 06/27/25 quetiapine 25 mg tablet 25 mg PO DAILY 06/09/25 06/27/25 verapamil 120 mg tablet,extended 120 mg PO BID 06/23/25 06/27/25 release Previous Rx's ?Medication ?Instructions ?Recorded ranolazine 500 mg tablet,extended 500 mg PO BID 30 days #60 tabs 11/19/24 release,12 hr atorvastatin 40 mg tablet 40 mg PO HS #90 tabs 02/07/25 levothyroxine 100 mcg tablet 100 mcg PO DAILYDM #90 tabs 02/15/25 furosemide 20 mg tablet 40 mg (2 x 20 mg) PO DAILY 30 days 02/19/25 #60 tabs pantoprazole 40 mg tablet,delayed 40 mg PO HS 30 days #30 tabs 04/06/25 release montelukast 10 mg tablet 10 mg PO HS #30 tabs 04/13/25 potassium chloride 10 mEq 10 meq PO DAILY #90 tabs 04/13/25 tablet,extended release duloxetine 60 mg capsule,delayed 60 mg PO BID 90 days #180 caps 04/18/25 release metformin 1,000 mg tablet 1,000 mg PO BIDWMEAL #60 tabs 04/18/25 hydrocortisone acetate 25 mg 25 mg [place] DAILY PRN hemorrhoids #24 05/25/25 rectal suppository (Anusol-HC) ea ondansetron 4 mg disintegrating 4 mg PO Q8H PRN nausea and 05/25/25 tablet vomiting 4 days #12 tabs polyethylene glycol 3350 17 17 g PO DAILY PRN constiptation 05/25/25 gram/dose oral powder (Miralax) #510 grams ferrous sulfate 325 mg (65 mg 325 mg PO BID #60 tabs 06/08/25 iron) tablet alprazolam 1 mg tablet 1 mg PO BID Anxiety #60 tabs 06/23/25 mupirocin 2 % topical ointment 1 applic topical TID #22 grams 06/23/25 promethazine 12.5 mg tablet 12.5 mg PO Q6HP PRN Nausea And 06/23/25 Vomiting #60 tabs oxycodone 5 mg tablet 5 mg PO Q8H PRN pain #12 tabs 06/27/25 sulfamethoxazole 800 1 tab PO BID 7 days #14 tabs 06/27/25 mg-trimethoprim 160 mg tablet Allergies Allergy/AdvReac Type Severity Reaction Status Date / Time codeine (CODEINE) Allergy Intermediate N/V Verified 06/23/25 13:14 ketorolac (KETOROLAC) Allergy Intermediate Hives Verified 06/23/25 13:14 meperidine (MEPERIDINE) Allergy Intermediate Hives Verified 06/23/25 13:14 tramadol (TRAMADOL) Allergy Intermediate Hives Verified 06/23/25 13:14 ciprofloxacin AdvReac Severe Interacts Verified 06/23/25 13:14 with cymbalta [facility] [place] <Nicolas Armendariz MD - Last Filed: 06/27/25 22:58> [facility] [place] Disclaimer: The information contained in this section may have been updated after the patient was seen, as this information can be updated by other users. Medical History Internal hemorrhoid, bleeding Multiple falls Pancreatic divisum Afib Esophageal dilatation Multiple lung nodules on CT Pulmonary emphysema Hypocalcemia Hypokalemia Acidosis, lactic GI bleed Noncompliance with medication regimen Tobacco dependence in remission Pancreas divisum of platinum pancreas Encounter for pre-operative cardiovascular clearance Orthopnea CHF (congestive heart failure) Pancreatitis Nausea vomiting and diarrhea Exhausted vascular access Rib fractures Chronic hypoxemic respiratory failure Coronary artery disease COPD (chronic obstructive pulmonary disease) HLD (hyperlipidemia) Diabetes Anxiety and depression TIA (transient ischemic attack) History of stroke History of multiple cerebrovascular accidents (CVAs) History of class III angina pectoris Typical angina Dyspnea History of pancreatitis History of CVA (cerebrovascular accident) Surgical History History of banding of hemorrhoid History of biliary duct stent placement History of hysterectomy History of cholecystectomy History of coronary artery stent placement Family History Other Family history of cancer Family history of diabetes mellitus Social History Smoking Status: Unknown if ever smoked years smoked: 45 how long ago did patient quit smokin years ago quit status: quit date established second hand exposure: No alcohol intake: never counseling provided: none substance use type: marijuana and crack/cocaine current occupational status: other Travel in the last 8 weeks?: None household members: significant other housing: house marital status: number of children: 2 current occupational exposures/hazards: No caffeine: Yes Have you lived/traveled outside [place] in past 30 days?: No Contact w/someone who lives/traveled outside US past 30 days?: No Exposure to someone with infectious disease in past 14 days?: No Do you have a fever (greater than 100.4 F or 38 C)?: No Have you tested positive for COVID-19?: No Exposed to someone with COVID-19 in past 14 days?: No Do you have a sore throat?: No Do you have a cough?: No Do you have any weakness?: No Do you have any diarrhea?: No Are you experiencing any unusual bleeding?: No Do you have any muscle aches/pain?: No Do you have any abdominal pain?: No Are you experiencing loss of taste or smell?: No Other Medical History Have you received the Flu Vaccine for this season: No Have you received the Pneumonia Vaccine: No <Nicolas Armendariz MD - Last Filed: 06/27/25 22:58> ROS Obtained: Yes Systems reviewed as appropriate & no additional complaints except as documented Physical Exam <Nicolas Armendariz MD - Last Filed: 06/27/25 22:58> General General appearance: alert Comment: Appearing uncomfortable in bed Head Head exam: atraumatic and normocephalic Eye Eye exam: Present PERRL and EOMI ENT ENT exam: Present mucous membranes moist Neck Neck exam: Present normal inspection Chest Chest inspection: Present normal inspection and symmetric chest wall rise Respiratory Respiratory exam: Present normal lung sounds bilaterally; Absent respiratory distress Cardiovascular Cardiovascular exam: Present regular rate and normal rhythm Abdominal Exam Abdominal exam: Present soft and tenderness (Mild, epigastric) Extremities Exam Extremities exam: Present normal inspection Neurological Exam Neurological exam: Present alert and oriented X3 Psychiatric Psychiatric exam: Present normal affect Skin Skin exam: Present warm and dry Medical Decision Making <Nicolas Armendariz MD - Last Filed: 06/27/25 22:58> Medical Records Screening: Per USPSTF and CDC recommendations, given the prevalence of disease in our region, it is our hospital?s policy to screen for HIV and viral Hepatitis for all patients aged 18 and over and those with ongoing risk factors. [place] Inquiry Pt receiving controlled substance: No Vital Signs: 06/27/25 21:04 06/27/25 22:01 06/27/25 22:22 Temperature 98.5 F Temperature Source Oral Pulse Rate 78 79 Pulse Rate [Radial] 95 H Respiratory Rate 20 19 12 Blood Pressure 117/88 117/73 Blood Pressure [Right Arm] 124/92 H Blood Pressure Mean 89 Blood Pressure Mean [Right Arm] 102 Blood Pressure Source [Right Arm] Automatic Cuff Blood Pressure Position [Right Arm] Sitting 02 Sat by Pulse Oximetry 93 L 90 L 90 L Oxygen Delivery Method Nasal Cannula Oxygen Flow Rate (LPM) 2.5 2.5 06/27/25 22:30 06/27/25 23:00 06/27/25 23:30 Temperature Temperature Source Pulse Rate 65 65 74 Pulse Rate [Radial] Respiratory Rate 18 17 15 Blood Pressure 107/68 L 114/81 126/80 Blood Pressure [Right Arm] Blood Pressure Mean 81 92 89 Blood Pressure Mean [Right Arm] Blood Pressure Source [Right Arm] Blood Pressure Position [Right Arm] 02 Sat by Pulse Oximetry 91 L 90 L 90 L Oxygen Delivery Method Oxygen Flow Rate (LPM) 3 3 3 06/27/25 23:52 Temperature 98 F Temperature Source Pulse Rate 74 Pulse Rate [Radial] Respiratory Rate 15 Blood Pressure 126/80 Blood Pressure [Right Arm] Blood Pressure Mean Blood Pressure Mean [Right Arm] Blood Pressure Source [Right Arm] Blood Pressure Position [Right Arm] 02 Sat by Pulse Oximetry Oxygen Delivery Method Nasal Cannula Oxygen Flow Rate (LPM) 3 Lab Data Lab Results 06/27/25 21:05: Urine Color Dark yellow, Urine Appearance Cloudy, Urine pH 6.0, Ur Specific [place] >= 1.030, Urine Protein Trace, Urine Glucose (UA) Negative, Urine Ketones Negative, Urine Blood 1+ A, Urine Nitrate Positive A, Urine Bilirubin Negative, Urine Urobilinogen 0.2, Ur Leukocyte Esterase 2+ A, Urine RBC 10-20, Urine WBC 20-50, Ur Squamous Epith Cells 5-10, Calcium Oxalate Crystal 1+, Amorphous Sediment 1+, Urine Bacteria 2+ 06/27/25 21:35: WBC 7.0, RBC 4.06 L, Hgb 12.2, Hct 39.0, MCV 96.1, MCH 30.0, MCHC 31.3 L, RDW 15.1, Plt Count 268, MPV 11.2 H, Neut % (Auto) 58.7, Lymph % (Auto) 30.9, [place] % (Auto) 6.7, Eos % (Auto) 3.0, Baso % (Auto) 0.4, Neut # (Auto) 4.1, Lymph # (Auto) 2.2, [place] # (Auto) 0.5, Eos # (Auto) 0.2, Baso # (Auto) 0.0, Sodium 136, Potassium 3.6, Chloride 99, Carbon Dioxide 30, Anion Gap 10.6, BUN 15, Creatinine 1.00, Estimated Creat Clear 90, Estimated GFR 56 L, Est GFR ( Amer) 68, Glucose 152 H, Calcium 8.6, Total Bilirubin 0.7, AST 24, ALT 13, Alkaline Phosphatase 94, Troponin I < 0.01, Total Protein 7.3, Albumin 3.6, Globulin 3.7 H, Albumin/Globulin Ratio 1.0 L, Lipase 68 06/27/25 21:35 06/27/25 21:35 Orders (Tests/Meds): ED MEDICATIONS Discontinued Medications Generic Name Dose Route Start Last Admin Trade Name Freq PRN Reason Stop Dose Admin Acetaminophen 1,000 mg 06/27/25 21:18 06/27/25 21:49 Acetaminophen 1,000mg/100ml Vial IV 06/27/25 21:19 1,000 mg ONCE ONE Administration Heparin Sodium (Porcine) 300 unit 06/28/25 00:02 06/28/25 00:15 Heparin Lock Flush 500 Units/5ml Syr IV 06/28/25 00:03 300 unit ONCE ONE Administration Hydromorphone HCl 0.5 mg 06/27/25 22:05 06/27/25 22:17 Hydromorphone 2mg/Ml Syringe IV 06/27/25 22:06 0.5 mg ONCE ONE Administration Lactated Ringer's 1,000 mls @ 999 mls/hr 06/27/25 21:09 06/27/25 21:48 Lactated Ringer's 1000 Ml Bag IV 06/27/25 22:09 999 mls/hr .Q1H1M ONE Administration Ceftriaxone Sodium 1 gm/ 50 mls @ 100 mls/hr 06/27/25 22:00 06/27/25 22:17 Sodium Chloride IV 07/07/25 21:59 100 mls/hr Q24H CRISTOPHER Administration Iopamidol 75 ml 06/27/25 22:20 06/27/25 22:20 Iopamidol-370 (76%);100ml Bottle IV 06/27/25 22:21 75 ml ONCE ONE Administration Morphine Sulfate 4 mg 06/27/25 21:09 06/27/25 21:49 Morphine 4mg/Ml Syringe IV 06/27/25 21:10 4 mg ONCE ONE Administration Ondansetron HCl 4 mg 06/27/25 21:09 06/27/25 21:49 Ondansetron 4mg/2ml Vial IV 06/27/25 21:10 4 mg ONCE ONE Administration Oxycodone HCl 5 mg 06/27/25 23:35 06/28/25 00:15 Oxycodone 5mg Immediate Release Tablet PO 06/27/25 23:36 5 mg ONCE ONE Administration Sodium Chloride 10 ml 06/27/25 22:20 06/27/25 22:21 Sodium Chloride 0.9% 10ml Syr (Rad Only) IV 07/27/25 22:19 10 ml NEEDED PRN Administration Maintain IV Site ORDERS Category Date Time Status CT abdomen pelvis w con Stat Cat Scan 06/27/25 21:09 Completed CBC w/Auto Diff [Complete Blood Count Auto Diff] Stat Lab 06/27/25 21:35 Completed CMP [Comprehensive Metabolic Panel] Stat Lab 06/27/25 21:35 Completed Lipase Stat Lab 06/27/25 21:35 Completed Trop I [Troponin I] Stat Lab 06/27/25 21:35 Completed UA [Urinalysis and Microscopic] Stat Lab 06/27/25 21:05 Completed Urine Culture Stat Micro 06/27/25 21:05 Received ECG Data Tracing #1: Independently inter by me rate of 78, rhythm is regular, axis is normal, no ST elevation in anatomical contiguous leads, QTc 442. Medical Decision Narrative: In summary patient is 64-year-old female past medical history described above who presents emergency department for evaluation of epigastric pain in the setting of chronic pancreatitis. Patient is hemodynamically stable nontoxic-appearing upon arrival, afebrile. Differential diagnosis includes pancreatic pseudocyst, acute pancreatitis, obstructive hepatopathy, atypical ACS, among others. Workup we conducted with hematologic labs, CT abdomen pelvis IV contrast, urinalysis, EKG, troponin. Initial inventions include multimodal pain control, crystalloid bolus, Zofran. Hematologic labs reviewed by me and are nonactionable no significant leukocytosis no transfusable anemia, no ALYSE or critical electrolyte abnormality, lipase normal initial troponin undetectably low. Urinalysis interpreted by me and consistent with infection for which ceftriaxone will be administered. CT imaging conducted and pending at time of transfer of care to the oncoming physician, Dr. Liu. <Tramaine Liu MD - Last Filed: 06/28/25 01:05> Vital Signs: 06/27/25 21:04 06/27/25 22:01 06/27/25 22:22 Temperature 98.5 F Temperature Source Oral Pulse Rate 78 79 Pulse Rate [Radial] 95 H Respiratory Rate 20 19 12 Blood Pressure 117/88 117/73 Blood Pressure [Right Arm] 124/92 H Blood Pressure Mean 89 Blood Pressure Mean [Right Arm] 102 Blood Pressure Source [Right Arm] Automatic Cuff Blood Pressure Position [Right Arm] Sitting 02 Sat by Pulse Oximetry 93 L 90 L 90 L Oxygen Delivery Method Nasal Cannula Oxygen Flow Rate (LPM) 2.5 2.5 06/27/25 22:30 06/27/25 23:00 06/27/25 23:30 Temperature Temperature Source Pulse Rate 65 65 74 Pulse Rate [Radial] Respiratory Rate 18 17 15 Blood Pressure 107/68 L 114/81 126/80 Blood Pressure [Right Arm] Blood Pressure Mean 81 92 89 Blood Pressure Mean [Right Arm] Blood Pressure Source [Right Arm] Blood Pressure Position [Right Arm] 02 Sat by Pulse Oximetry 91 L 90 L 90 L Oxygen Delivery Method Oxygen Flow Rate (LPM) 3 3 3 06/27/25 23:52 Temperature 98 F Temperature Source Pulse Rate 74 Pulse Rate [Radial] Respiratory Rate 15 Blood Pressure 126/80 Blood Pressure [Right Arm] Blood Pressure Mean Blood Pressure Mean [Right Arm] Blood Pressure Source [Right Arm] Blood Pressure Position [Right Arm] 02 Sat by Pulse Oximetry Oxygen Delivery Method Nasal Cannula Oxygen Flow Rate (LPM) 3 Lab Data Lab Results 06/27/25 21:05: Urine Color Dark yellow, Urine Appearance Cloudy, Urine pH 6.0, Ur Specific [place] >= 1.030, Urine Protein Trace, Urine Glucose (UA) Negative, Urine Ketones Negative, Urine Blood 1+ A, Urine Nitrate Positive A, Urine Bilirubin Negative, Urine Urobilinogen 0.2, Ur Leukocyte Esterase 2+ A, Urine RBC 10-20, Urine WBC 20-50, Ur Squamous Epith Cells 5-10, Calcium Oxalate Crystal 1+, Amorphous Sediment 1+, Urine Bacteria 2+ 06/27/25 21:35: WBC 7.0, RBC 4.06 L, Hgb 12.2, Hct 39.0, MCV 96.1, MCH 30.0, MCHC 31.3 L, RDW 15.1, Plt Count 268, MPV 11.2 H, Neut % (Auto) 58.7, Lymph % (Auto) 30.9, [place] % (Auto) 6.7, Eos % (Auto) 3.0, Baso % (Auto) 0.4, Neut # (Auto) 4.1, Lymph # (Auto) 2.2, [place] # (Auto) 0.5, Eos # (Auto) 0.2, Baso # (Auto) 0.0, Sodium 136, Potassium 3.6, Chloride 99, Carbon Dioxide 30, Anion Gap 10.6, BUN 15, Creatinine 1.00, Estimated Creat Clear 90, Estimated GFR 56 L, Est GFR ( Amer) 68, Glucose 152 H, Calcium 8.6, Total Bilirubin 0.7, AST 24, ALT 13, Alkaline Phosphatase 94, Troponin I < 0.01, Total Protein 7.3, Albumin 3.6, Globulin 3.7 H, Albumin/Globulin Ratio 1.0 L, Lipase 68 Orders (Tests/Meds): ED MEDICATIONS Discontinued Medications Generic Name Dose Route Start Last Admin Trade Name Freq PRN Reason Stop Dose Admin Acetaminophen 1,000 mg 06/27/25 21:18 06/27/25 21:49 Acetaminophen 1,000mg/100ml Vial IV 06/27/25 21:19 1,000 mg ONCE ONE Administration Heparin Sodium (Porcine) 300 unit 06/28/25 00:02 06/28/25 00:15 Heparin Lock Flush 500 Units/5ml Syr IV 06/28/25 00:03 300 unit ONCE ONE Administration Hydromorphone HCl 0.5 mg 06/27/25 22:05 06/27/25 22:17 Hydromorphone 2mg/Ml Syringe IV 06/27/25 22:06 0.5 mg ONCE ONE Administration Lactated Ringer's 1,000 mls @ 999 mls/hr 06/27/25 21:09 06/27/25 21:48 Lactated Ringer's 1000 Ml Bag IV 06/27/25 22:09 999 mls/hr .Q1H1M ONE Administration Ceftriaxone Sodium 1 gm/ 50 mls @ 100 mls/hr 06/27/25 22:00 06/27/25 22:17 Sodium Chloride IV 07/07/25 21:59 100 mls/hr Q24H CRISTOPHER Administration Iopamidol 75 ml 06/27/25 22:20 06/27/25 22:20 Iopamidol-370 (76%);100ml Bottle IV 06/27/25 22:21 75 ml ONCE ONE Administration Morphine Sulfate 4 mg 06/27/25 21:09 06/27/25 21:49 Morphine 4mg/Ml Syringe IV 06/27/25 21:10 4 mg ONCE ONE Administration Ondansetron HCl 4 mg 06/27/25 21:09 06/27/25 21:49 Ondansetron 4mg/2ml Vial IV 06/27/25 21:10 4 mg ONCE ONE Administration Oxycodone HCl 5 mg 06/27/25 23:35 06/28/25 00:15 Oxycodone 5mg Immediate Release Tablet PO 06/27/25 23:36 5 mg ONCE ONE Administration Sodium Chloride 10 ml 06/27/25 22:20 06/27/25 22:21 Sodium Chloride 0.9% 10ml Syr (Rad Only) IV 07/27/25 22:19 10 ml NEEDED PRN Administration Maintain IV Site ORDERS Category Date Time Status CT abdomen pelvis w con Stat Cat Scan 06/27/25 21:09 Completed CBC w/Auto Diff [Complete Blood Count Auto Diff] Stat Lab 06/27/25 21:35 Completed CMP [Comprehensive Metabolic Panel] Stat Lab 06/27/25 21:35 Completed Lipase Stat Lab 06/27/25 21:35 Completed Trop I [Troponin I] Stat Lab 06/27/25 21:35 Completed UA [Urinalysis and Microscopic] Stat Lab 06/27/25 21:05 Completed Urine Culture Stat Micro 06/27/25 21:05 Received Medical Decision Narrative: In summary patient is 64-year-old female past medical history described above who presents emergency department for evaluation of epigastric pain in the setting of chronic pancreatitis. Patient is hemodynamically stable nontoxic-appearing upon arrival, afebrile. Differential diagnosis includes pancreatic pseudocyst, acute pancreatitis, obstructive hepatopathy, atypical ACS, among others. Workup we conducted with hematologic labs, CT abdomen pelvis IV contrast, urinalysis, EKG, troponin. Initial inventions include multimodal pain control, crystalloid bolus, Zofran. Hematologic labs reviewed by me and are nonactionable no significant leukocytosis no transfusable anemia, no ALYSE or critical electrolyte abnormality, lipase normal initial troponin undetectably low. Urinalysis interpreted by me and consistent with infection for which ceftriaxone will be administered. CT imaging conducted and pending at time of transfer of care to the oncoming physician, Dr. Liu. Noe JUAREZ: I assumed care of the patient at the time of handoff from the prior provider. On reassessment patient remains hemodynamically stable, continues to ask for pain meds. CT imaging was independently interpreted by me, I see mild enteritis. It was read as negative by radiology. Certainly no evidence of acute pancreatic inflammation. No evidence of kidney stone. Interactive discussion was had with patient regarding her presentation. She reports she is in a lot of pain and would prefer to be admitted. Given she has a UTI that we can treat at home that may be contributing to her symptoms, I think trial of home pain meds and antibiotics may be able to prevent admission. Patient was agreeable to plan and was discharged with Bactrim and pain control. Critical Care <Nicolas Armendariz MD - Last Filed: 06/27/25 22:58> Critical Care Time Critical Care Time: No
[2025-06-27 21:17] LABS: Microscopic, Urine URINE MICROSCOPIC (MICROSCOPIC)
[2025-06-27 21:25] LABS: Bilirubin,Urine Negative (Negative); Glucose,Urine (UA) Negative (Negative); Ketones,Urine Negative (Negative); Leukocyte Esterase,Urine 2+ (Negative); PH,Urine 6.0 (5.0-8.5); Protein,Urine TRACE (Negative); Specific Gravity, Urine >= 1.030 (1.005-1.030); Urobilinogen,Urine 0.2 EU/dl (0.2)
--- OUTSIDE RECORDS SUMMARY | 2025-06-27 21:33 | XMS_ITS | Data Portability ---
Author Organization [facility] & [place] [facility] ADMIN Address [address] [place] [id number] Care Team Providers Care Director Communications Name Role Phone RADHA GALLO Referring Provider [...] TSH + free T4, serum [address] (Laboratory), [address] [place], [address], 05/12/2025 08:04:34 lipid panel, serum 2024 025 [facility] (Laboratory), [address] [place], [address], 05/05/2025 17:25:45 iron + TIBC + ferritin, serum [address] (Laboratory), [address] [place], [address], 05/12/2025 08:04:35 CBC w/ auto diff 2024 025 [facility] (Laboratory), [address] [place], [address], 05/05/2025 17:09:33 vitamin B12 + folate, serum or blood [address] [place] [address] (Laboratory), [address] [place], [address], 05/12/2025 08:04:35 hemoglobi n A1C/hemog lobin total, QN, blood [email or web address] (Laboratory), [address] [place], [address], 05/12/2025 08:04:34 amylase + lipase, serum [address] [place] [address] (Laboratory), [address] [place], [address], 05/12/2025 08:04:34 CMP, serum or plasma [address] [place] [address] (Laboratory), [address] [place], [address], 05/05/2025 17:25:43 vitamin D, 25-hydrox y, total, serum [address] [place] [address] (Laboratory), [address] [place], [address], 05/12/2025 08:04:34 Referral gastroent erologist referral 2024 025 [email or web address] Deangelo Redd MD, [address] [place], [place], [address], 06/06/2025 08:36:02 behaviora [facility] referral 2024 025 [email or web address] Abraham Kulkarni [facility], [address] [place], [phone], 06/06/2025 08:36:15 Procedures None recorded. Surgeries None recorded. Imaging CT, abdomen + pelvis, w/ contrast 2024 025 [id number] [facility] (Scheduling), [address] [place], [address], 05/06/2025 08:54:22 LDCT, chest, for lung cancer screening 2024 025 [email or web address] [facility] (Scheduling), [address] [place], [address], 05/12/2025 08:04:25 Medication Orders None recorded. Patient TargetsNo targets recorded. Patient InstructionsNo instructions recorded. 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 Pancreas divisum Referring Physician: Radha Gallo [facility] Patricia, Encounter Date: 05/05/2025 Results Created Date Observation Date Name Description Value Unit Range Abnormal Flag Note LastModifiedBy Organization Detail LastModifiedTime 05/05/2005/05/2025 CBC AUTO W DIFF WBC 10.3 10 4.5-11 .5 Not Available [facility] (Lab Registration) [address] [place], [address], 05/05/2025 17:09:32 05/05/20 25 05/05/2025 CBC AUTO W DIFF RBC 4.76 10 4.25-5 .57 Not Available [facility] (Lab Registration) [place], [address], 05/05/2025 17:09:32 05/05/20 25 05/05/2025 CBC AUTO W DIFF HGB 15.1 g/dL 12.0-1 5.7 Not Available [facility] (Lab Registration) [address] [place], [address], 05/05/2025 17:09:32 05/05/20 25 05/05/2025 CBC AUTO W DIFF HCT 44.2 % 36.0-4 7.0 Not Available [facility] (Lab Registration) [address] [place], [address], 05/05/2025 17:09:32 05/05/20 25 05/05/2025 CBC AUTO W DIFF MCV 92.9 fL 80-95 Not Available [facility] (Lab Registration) [address] [place], [address], 05/05/2025 17:09:32 05/05/20 25 05/05/2025 CBC AUTO W DIFF MCH 31.7 pg 27.0-3 4.0 Not Available [facility] (Lab Registration) [address] [place], [address], 05/05/2025 17:09:32 05/05/20 25 05/05/2025 CBC AUTO W DIFF MCHC 34.2 g/dL 32.0-3 6.0 Not Available [facility] (Lab Registration) [address] [place], [address], 05/05/2025 17:09:32 05/05/20 25 05/05/2025 CBC AUTO W DIFF platelet count 332 10 150-45 0 Not Available [facility] (Lab Registration) [address] [place], [address], 05/05/2025 17:09:32 05/05/20 25 05/05/2025 CBC AUTO W DIFF RDW 15.5 % 12.3-1 5.1 high Not Available [facility] (Lab Registration) [address] [place], [address], 05/05/2025 17:09:32 05/05/20 25 05/05/2025 CBC AUTO W DIFF MPV 11.1 fL 7.4-10 .4 high Not Available [facility] (Lab Registration) [address] [place], [address], 05/05/2025 17:09:32 05/05/20 25 05/05/2025 CBC AUTO W DIFF granulocyte% 63.1 % 40-75 Not Available [facility] (Lab Registration) [address] [place], [address], 05/05/2025 17:09:32 05/05/20 25 05/05/2025 CBC AUTO W DIFF lymphocyte% 27.7 % 15-57 Not Available [facility] (Lab Registration) [address] [place], [address], 05/05/2025 17:09:32 05/05/20 25 05/05/2025 CBC AUTO W DIFF monocyte% 6.0 % 4.0-12 .0 Not Available [facility] (Lab Registration) [address] [place], [address], 05/05/2025 17:09:32 05/05/2005/05/2025 CBC AUTO W DIFF eosinophil% 2.2 % 0.0-4. 0 Not Available [facility] (Lab Registration) [address] [place], [address], 05/05/2025 17:09:32 05/05/20 25 05/05/2025 CBC AUTO W DIFF basophil% 0.6 % 0.0-1. 0 Not Available [facility] (Lab Registration) [address] [place], [address], 05/05/2025 17:09:32 05/05/2005/05/2025 CBC AUTO W DIFF immature granulocytes % 0.4 % 0.0-0. 8 Not Available [facility] (Lab Registration) [address] [place], [address], 05/05/2025 17:09:32 05/05/2005/05/2025 CBC AUTO W DIFF granulocyte# 6.52 10 Not Available [facility] (Lab Registration) [address] [place], [address], 05/05/2025 17:09:32 05/05/20 25 05/05/2025 CBC AUTO W DIFF lymphocyte# 2.86 10 Not Available [facility] (Lab Registration) [address], [place], [address], 05/05/2025 17:09:32 05/05/20 25 05/05/2025 CBC AUTO W DIFF monocyte# 0.62 10 Not Available [facility] (Lab Registration) [address] [place], [address], 05/05/2025 17:09:32 05/05/20 25 05/05/2025 CBC AUTO W DIFF eosinophil# 0.23 10 Not Available [facility] (Lab Registration) [address] [place], [address], 05/05/2025 17:09:32 05/05/20 25 05/05/2025 CBC AUTO W DIFF basophil# 0.06 10 Not Available [facility] (Lab Registration) [address] [place], [address], 05/05/2025 17:09:32 05/05/20 25 05/05/2025 CBC AUTO W DIFF immature granulocytes # 0.04 10 Not Available [facility] (Lab Registration) [address], [place], [address], 05/05/2025 17:09:32 05/05/20 25 05/05/2025 CBC AUTO W DIFF manual differential NO Not Available [facility] (Lab Registration) [address] [place], [address], 05/05/2025 17:09:32 05/05/20 25 05/05/2025 CBC AUTO W DIFF note Unles s other sanchez noted testi ng perfo rmed at: [facility] [address] [place] [address] [phone] Bernard erazo MD CLIA: [id number] Not Available [facility] (Lab Registration) [address] [place], [address], 05/05/2025 17:09:32 05/05/20 25 05/05/2025 HEMOG LOBIN A1C glycosylated hemoglobin A1C 6.4 % 4.5-6. 2 high Not Available [facility] (Lab Registration) [address] [place], [address], 05/05/2025 17:10:39 05/05/20 25 05/05/2025 HEMOG LOBIN A1C estimated average glucose 137 mg/dL 82-131 high Not Available [facility] (Lab Registration) [address] [place], [address], 05/05/2025 17:10:39 05/05/20 25 05/05/2025 HEMOG LOBIN A1C note Unles s other sanchez noted testi ng perfo rmed at: [facility] [address] [place] [address] [phone] Bernard erazo MD CLIA: [id number] Not Available [facility] (Lab Registration) [address] [place], [address], 05/05/2025 17:10:39 05/05/20 25 05/05/2025 IRON/ TIBC/ %SAT (IRON STUDI ES) iron 43 ug/dL 35-150 Not Available [facility] (Lab Registration) [address] [place], [address], 05/05/2025 17:10:40 05/05/20 25 05/05/2025 IRON/ TIBC/ %SAT (IRON STUDI ES) total iron bind cap (TIBC) 387 ug/dL 250-45 0 Not Available [facility] (Lab Registration) [address] [place], [address], 05/05/2025 17:10:40 05/05/20 25 05/05/2025 IRON/ TIBC/ %SAT (IRON STUDI ES) % saturation 11 % 15-55 low Not Available [facility] (Lab Registration) [address] [place], [address], 05/05/2025 17:10:40 05/05/20 25 05/05/2025 IRON/ TIBC/ %SAT (IRON STUDI ES) note Cindy s other sanchez noted testi ng perfo rmed at: [facility] [address] [place] [address] [phone] Bernard erazo MD CLIA: [id number] Not Available [facility] (Lab Registration) [address], [place], [address], 05/05/2025 17:10:40 05/05/20 25 05/05/2025 THYRO ID STIMU LATIN G HORMO NE thyroid stimulating hormone 1.09 mIU/m L 0.34-4 .80 Not Available [facility] (Lab Registration) [address] [place], [address], 05/05/2025 17:24:39 05/05/20 25 05/05/2025 THYRO ID STIMU LATIN G HORMO NE note Cindy erazo other sanchez noted testi ng perfo rmed at: [facility] [address] [place] [address] [phone] Bernard erazo MD CLIA: [id number] Not Available [facility] (Lab Registration) [address] [place], [address], 05/05/2025 17:24:39 05/05/20 25 05/05/2025 T4 FREE T4,free 1.00 NG/dL 0.76-1 .46 Effec tive today 013 new Refer ence Range . Not Available [facility] (Lab Registration) [address] [place], [address], 05/05/2025 17:24:40 05/05/20 25 05/05/2025 T4 FREE note Cindy erazo other sanchez noted testi ng perfo rmed at: [facility] [address] [place] [address] [phone] Bernard erazo MD CLIA: [id number] Not Available [facility] (Lab Registration) [address] [place], [address], 05/05/2025 17:24:40 05/05/20 25 05/05/2025 AMYLA SE amylase 66 U/L 25-115 Not Available [facility] (Lab Registration) [address] [place], [address], 05/05/2025 17:25:41 05/05/20 25 05/05/2025 AMYLA SE note Unles s other sanchez noted testi ng perfo rmed at: [facility] [address] [place] [address] [phone] Bernard erazo MD CLIA: [id number] Not Available [facility] (Lab Registration) [address] [place], [address], 05/05/2025 17:25:41 05/05/20 25 05/05/2025 LIPAS E lipase 64 U/L 16-77 Not Available [facility] (Lab Registration) [address] [place], [address], 05/05/2025 17:25:42 05/05/20 25 05/05/2025 LIPAS E note Unles s other sanchez noted testi ng perfo rmed at: [facility] [address] [place] [address] [phone] Bernard erazo MD CLIA: [id number] Not Available [facility] (Lab Registration) [address] [place], [address], 05/05/2025 17:25:42 05/05/20 25 05/05/2025 COMP METAB OLIC PANEL sodium 139 mmol/ L 136-14 5 Not Available [facility] (Lab Registration) [address] [place], [address], 05/05/2025 17:25:43 05/05/20 25 05/05/2025 COMP METAB OLIC PANEL potassium 4.1 mmol/ L 3.5-5. 1 Not Available [facility] (Lab Registration) [address] [place], [address], 05/05/2025 17:25:43 05/05/20 25 05/05/2025 COMP METAB OLIC PANEL chloride 102 mmol/ L 98-107 Not Available [facility] (Lab Registration) [address] [place], [address], 05/05/2025 17:25:43 05/05/20 25 05/05/2025 COMP METAB OLIC PANEL carbon dioxide 29 mmol/ L 21-32 Not Available [facility] (Lab Registration) [address] [place], [address], 05/05/2025 17:25:43 05/05/20 25 05/05/2025 COMP METAB OLIC PANEL anion gap 8.0 Not Available [facility] (Lab Registration) [address] [place], [address], 05/05/2025 17:25:43 05/05/20 25 05/05/2025 COMP METAB OLIC PANEL glucose 110 mg/dL 70-110 Not Available [facility] (Lab Registration) [address] [place], [address], 05/05/2025 17:25:43 05/05/20 25 05/05/2025 COMP METAB OLIC PANEL blood urea nitrogen 15 mg/dL 7-18 Not Available [facility] (Lab Registration) [address] [place], [address], 05/05/2025 17:25:43 05/05/20 25 05/05/2025 COMP METAB OLIC PANEL creatinine 1.2 mg/dL 0.6-1. 0 high Not Available [facility] (Lab Registration) [address] [place], [address], 05/05/2025 17:25:43 05/05/20 25 05/05/2025 COMP METAB OLIC PANEL BUN/creatini ne ratio 12.5 9-21 Not Available [facility] (Lab Registration) [address], [place], [address], 05/05/2025 17:25:43 05/05/20 25 05/05/2025 COMP METAB [...] lemus ing kiney funct ion. Not Available [facility] (Lab Registration) [address], [place], [address], 05/05/2025 17:25:43 05/05/20 25 05/05/2025 COMP METAB OLIC PANEL osmolality (calculated) 291 mOsm/ kg 275-30 1 OSMOL ALITY IS A CALCU LATIO N UTILI ZING THE SERUM /PLAS MA SODIU M, GLUCO SE AND UREA NITRO GEN (BUN) LEVEL S. FOR THE MOST ACCUR ATE RESUL T A MEASU RED SERUM OSMOL ALITY IS SUGGE STED. Not Available [facility] (Lab Registration) [address], [place], [address], 05/05/2025 17:25:43 05/05/20 25 05/05/2025 COMP METAB OLIC PANEL total protein 8.0 g/dL 6.4-8. 2 Not Available [facility] (Lab Registration) [address], [place], [address], 05/05/2025 17:25:43 05/05/20 25 05/05/2025 COMP METAB OLIC PANEL albumin 3.9 g/dL 3.4-5. 0 Not Available [facility] (Lab Registration) [address] [place], [address], 05/05/2025 17:25:43 05/05/20 25 05/05/2025 COMP METAB OLIC PANEL calcium 8.9 mg/dL 8.5-10 .1 Not Available [facility] (Lab Registration) [address] [place], [address], 05/05/2025 17:25:43 05/05/20 25 05/05/2025 COMP METAB OLIC PANEL corrected calcium 9.0 mg/dL 8.5-10 .1 Not Available [facility] (Lab Registration) [address] [place], [address], 05/05/2025 17:25:43 05/05/20 25 05/05/2025 COMP METAB OLIC PANEL bilirubin total 0.5 mg/dL 0.4-1. 5 Not Available [facility] (Lab Registration) [address] [place], [address], 05/05/2025 17:25:43 05/05/20 25 05/05/2025 COMP METAB OLIC PANEL AST (SGOT) 18 U/L 15-37 Not Available [facility] (Lab Registration) [address] [place], [address], 05/05/2025 17:25:43 05/05/20 25 05/05/2025 COMP METAB OLIC PANEL ALT (SGPT) 12 U/L 12-78 Not Available [facility] (Lab Registration) [address] [place], [address], 05/05/2025 17:25:43 05/05/20 25 05/05/2025 COMP METAB OLIC PANEL alk phosphatase 136 U/L 53-141 Not Available [facility] (Lab Registration) [address] [place], [address], 05/05/2025 17:25:43 05/05/20 25 05/05/2025 COMP METAB OLIC PANEL note Unles s other sanchez noted testi ng perfo rmed at: [facility] [address] [place] [address] [phone] Bernard erazo MD CLIA: [id number] Not Available [facility] (Lab Registration) [address] [place], [address], 05/05/2025 17:25:43 05/05/20 25 05/05/2025 LIPID PANEL triglyceride 419 mg/dL 20-200 high The Natio nal Elsie stero l [employer]ca tion Progr am (NCEP ) has set the follo wing guide lines for Fasti ng Trigl yceri philippe: JUANITA L: <150 mg/dL BORDE RLINE HIGH: 150 - 199 mg/dL HIGH: 200 - 499 mg/dL VERY HIGH: > or =500 mg/dL Not Available [facility] (Lab Registration) [address] , [place], [address], 05/05/2025 17:25:45 05/05/20 25 05/05/2025 LIPID PANEL cholesterol 164 mg/dL 0-200 The Natio nal Elsie [employer] l [employer]ca tion Progr am (NCEP ) has set the follo wing guide lines for Fasti ng Elsie stero l: ARIA ABLE: <200 mg/dL BORDE RLINE HIGH: 200 - 239 mg/dL HIGH: > or =240 mg/dL Not Available [facility] (Lab Registration) [address] [place], [address], 05/05/2025 17:25:45 05/05/20 25 05/05/2025 LIPID PANEL HDL cholesterol 56 mg/dL 60- low The Natio nal Elsie [employer] l [employer]ca tion Progr am (NCEP ) has set the follo wing guide lines for Fasti ng HDL Elsie stero l: LOW HDL: <40 mg/dL JUANITA L: 40 - 60 mg/dL ARIA ABLE: >60 mg/dL Not Available [facility] (Lab Registration) [address], [place], [address], 05/05/2025 17:25:45 05/05/20 25 05/05/2025 LIPID PANEL [...] > or = 190 mg/dL Not Available [facility] (Lab Registration) [address], [place], [address], 05/05/2025 17:25:45 05/05/20 25 05/05/2025 LIPID PANEL chol/HDL ratio 3 -5 Not Available [facility] (Lab Registration) [address], [place], [address], 05/05/2025 17:25:45 05/05/20 25 05/05/2025 LIPID PANEL note Unles s other sanchez noted testi ng perfo rmed at: [facility] [address] [place] [address] [phone] Bernard erazo MD CLIA: [id number] Not Available [facility] (Lab Registration) [address], [place], [address], 05/05/2025 17:25:45 05/05/20 25 05/05/2025 VITAM IN D TOTAL (D2+D 3) vitamin D25 (D2+D3) 11.6 NG/mL 30-100 low Not Available [facility] (Lab Registration) [address], [place], [address], 05/05/2025 17:25:47 05/05/20 25 05/05/2025 VITAM IN D TOTAL (D2+D 3) note Cindy s other sanchez noted testi ng perfo rmed at: [facility] [address] [place] [address] [phone] Bernard erazo MD CLIA: [id number] Not Available [facility] (Lab Registration) [address] [place], [address], 05/05/2025 17:25:47 05/05/20 25 05/05/2025 HILLARY TIN ferritin 35 NG/mL 8-388 Not Available [facility] (Lab Registration) [address] [place], [address], 05/05/2025 17:25:48 05/05/20 25 05/05/2025 HILLARY TIN note Cindy erazo other sanchez noted testi ng perfo rmed at: [facility] [address] [place] [address] [phone] Bernard erazo MD CLIA: [id number] Not Available [facility] (Lab Registration) [address] [place], [address], 05/05/2025 17:25:48 05/05/20 25 05/05/2025 VITAM IN B12 vitamin B12 247 pg/mL 193-98 6 Not Available [facility] (Lab Registration) [address] [place], [address], 05/05/2025 17:25:49 05/05/20 25 05/05/2025 VITAM IN B12 folate (folic acid), serum 17.2 NG/mL 8.6-58 .9 Not Available [facility] (Lab Registration) [address] [place], [address], 05/05/2025 17:25:49 05/05/20 25 05/05/2025 VITAM IN B12 note Cindy s other sanchez noted testi ng perfo rmed at: [facility] [address] [place] [address] [phone] Bernard erazo MD CLIA: [id number] Not Available [facility] (Lab Registration) [address] [place], [address], 05/05/2025 17:25:49 05/05/20 25 05/05/2025 CT ABD/p [place] W IV and oral co [facility] [address] [place] [address] Phone: Fax: Name: ANDREW BEJARANO Exam Date: 05/05/20 : 1959 Age 64 years Gender : F Access ion: [id number] Physic melodie: RADHA YEH Facili ty: [facility] Facili ty HSV: Outpat ient Exam: [...] you for referr ing ANDREW BEJARANO to [facility]. Legall y authen ticate d by BARBARA Woo MD 05-05 18:49: 00 CC'ed Logic: Orderi ng Provid er: DENNY GARCIA CC Provid er: LEO RODRIGUEZ Attend ing Provid er: DENNY GARCIA Referr ing Provid er: DENNY GARCIA Admitt ing Provid er: DENNY [email or web address] [facility] (Radiology) [address] [place] [address] [place], [address], 05/06/2025 12:40:28 05/05/20 25 05/05/2025 CT, abdom en + pelvi s, w/ contr ast No observ ation record ed. [facility] (Radiology) [address] [place] [address] [place], [address], 05/06/2025 12:41:26 05/05/20 25 05/05/2025 CT, abdom en + pelvi s, w/ contr ast No observ ation record ed. [facility] (Radiology) [address] [place] [address] , [place], [address], 05/06/2025 12:41:26 Result Notes None recorded. Problems Name Problem SNOMED Code Status Onset Date Resolution Date Notes Provider Name and Address Organization Details Recorded Time Essential hypertension 73019382 Active 2024 Hussain Card null, [place] - [facility] & [place] 15:08:24 Prediabetes 586484107 Active 2024 Hussain Card null, [place] [facility] & [place] 15:08:43 Mixed anxiety and depressive disorder 920946399 Active 2024 Hussain Card null, [place] [facility] & [place] 15:09:02 Hyperthyroidis m 29269121 Active 2024 Hussain Card null, [place] [facility] & [place] 15:09:26 Pancreas divisum 01756730 Active 2024 Hussain Card null, [place] [facility] & [place] 15:09:59 Problem Notes None recorded. Procedures Surgical History Date Name Laterality Status Provider Name and Address Organization Details Recorded Time Tubal Ligation completed Hussain Card [place] [facility] & [place] 05/05/2025 15:21:17 hysterectomy completed Hussain Card [place] [facility] & [place] 05/05/2025 15:21:24 insertion of infusion pump beneath skin completed Hussain Card [place] [facility] & [place] 05/05/2025 15:22:02 placement of stent in coronary artery completed Hussain Card [place] [facility] [place] 05/05/2025 15:22:18 appendectomy completed Hussain Card [place] [facility] & [place] 05/05/2025 15:22:36 cholecystectomy completed Hussain Card [place] - [facility] & [place] 05/05/2025 15:22:46 Imaging Results None recorded. Procedure Notes None recorded. Medical Equipment None Reported. Allergies Allergen ID Allergen Name Allergen Category Reaction Reaction Severity Criticality Documentation Date Start Date Code Code System Note Provider Name and Address Organization Details Recorded Time 253175 tramadol medicatio n Not available Not available Not available 05/05/2025 39188 RxNorm TERESA Barney [facility] & [place] 15:01:58 434827 Cipro medicatio n Not available Not available Not available 05/05/2025 54677 3 RxNorm TERESA Barney [facility] & [place] 15:02:09 711462 Demerol medicatio n Not available Not available Not available 05/05/2025 94801 1 RxNorm TERESA Barney [facility] & [place] 15:03:24 Medications Name Sig Start Date Stop [...] Available Not Available alprazolam 1 mg tablet TAKE 1 TABLET(1 MG) orally twice a day for Anxiety active Not Available Not Available No t [...] t Available promethazin e 12.5 mg tablet TAKE 1 TABLET(12 .5 mg) orally every 6 hours as needed As Needed for Nausea And Vomiting active Not Available Not Available No t [...] Not Available Not Available No t Available mupirocin 2 % topical ointment APPLY 1 applicATI ON topically three times a day active Not Available Not Available [...] release take 1 capsule(1 20 mg) orally twice a day active Not Available Not Available No t Available buspirone 15 mg tablet TAKE ONE TABLET BY MOUTH THREE TIMES DAILY active Not Available Not Available No [...] Updated DateTime 5 167.64 cm 31.5 kg/m2 51163.5 1 g 98.4 [degF] 94 % 94 % 72 /min 18 /min 135/83 mm[Hg] Hussain Card [place] - [facility] - [place] & [place] 5 15:01:22 Social History Question Answer Notes LastModified by Organizat ion Details LastModified Time Tobacco Smoking Status Former Smoker Hussain Card [facility], [place] - [facility] & [place] 05/05/2025 15:13:37 Do You Have An Advance Directive? No [email or web address] Information n ot available 05/05/2025 Do You Wear A Helmet When Biking? Yes [email or web address] Information not available 05/05/2025 Are You Blind Or Do You Have Difficulty Seeing? No [email or web address] Information n ot available 05/05/2025 What Is Your Level Of Caffeine Consumption? Moderate [email or web address] Information not available 05/05/2025 In The 14 Days Before Symptom Onset, Have You Had Close Contact With A Laboratory-confirm ed COVID-19 While That Case Was Ill? No Information n ot available 05/05/2025 In The 14 Days Before Symptom Onset, Have You Had Close Contact With A Person Who Is Under Investigation For COVID-19 While That Person Was Ill? No [email or web address] Information not available 05/05/2025 Have You Been To An Area Known To Be High Risk For COVID-19? No [email or web address] Information not available 05/05/2025 Are You Deaf Or Do You Have Serious Difficulty Hearing? No [email or web address] Information not available 05/05/2025 What Type Of Diet Are You Following? REGULAR [email or web address] Information n ot available 05/05/2025 Have You Processed Blood Or Body Fluids From An Ebola Virus Disease Patient Without Appropriate PPE? No [email or web address] Information not available 05/05/2025 Do You Reside In Or Have You Traveled To An Area Where Ebola Virus Transmission Is Active? No [email or web address] Information not available 05/05/2025 Have There Been Any Changes To Your Family Or Social Situation? No [email or web address] Information no t available 05/05/2025 What Is The Fluoride Status Of Your Home? Unknown [email or web address] Information not available 05/05/2025 When Did You Quit Smoking? 1-5yearssince lastcigarette [email or web address] Information not available 05/05/2025 Are There Any Guns Present In Your Home? No Information not available 05/05/2025 Have You Recently Or Are You Planning To Travel To An Area With Zika Virus? No [email or web address] Information not available 05/05/2025 Do You Use Insect Repellent Routinely? Yes [email or web address] Information not available 05/05/2025 Do You Feel Safe At Home? Yes [email or web address] Information not available 05/05/2025 Do You Have A Medical Power Of Hand Engraver? No [email or web address] Information not available 05/05/2025 What Was The Date Of Your Most Recent Tobacco Screening? 05/05/2025 [email or web address] Information not available 05/05/2025 What Is Your Current Pack Years? 10packyears [email or web address] Information not available 05/05/2025 Do You Have Any Pets? No [email or web address] Information not available 05/05/2025 What Is Your Relationship Status? Information not available 05/05/2025 Do You Use Your Seat Belt Or Car Seat Routinely? Yes [email or web address] Information not available 05/05/2025 Do You Have Smoke And Carbon Monoxide Detectors In Your Home? Yes [email or web address] Information not available 05/05/2025 At What Age Did You Start Smoking Tobacco? 20 [email or web address] Information not available 05/05/2025 Are You Passively Exposed To Smoke? No [email or web address] Information no t available 05/05/2025 How Much Tobacco Do You Smoke? No [email or web address] Information not available 05/05/2025 What Types Of Sporting Activities Do You Participate In? None, Cant Breath Or Move Much [email or web address] Information not available 05/05/2025 Do You Use Sunscreen Routinely? Yes [email or web address] Information not available 05/05/2025 Has Tobacco Cessation Counseling Been Provided? Yes [email or web address] Information not available 05/05/2025 On What Date Was Tobacco Cessation Counseling Provided? 05/05/2025 [email or web address] Information not available 05/05/2025 How Many Years Have You Smoked Tobacco? 40 [email or web address] Information not available 05/05/2025 Do You Have Difficulty Walking Or Climbing Stairs? No [email or web address] Information not available 05/05/2025 Are You Currently In School? No [email or web address] Information not available 05/05/2025 Sex: Unknown Functional Status Question Answer Note LastModified by Organizat ion Details LastModified Time Do you use any illicit or recreational drugs? No [email or web address] Information not available 05/05/2025 Do you or have you ever used any other forms of tobacco or nicotine? No Information not available 05/05/2025 What is your level of alcohol consumption? None [email or web address] Information not available 05/05/2025 Are you currently employed? No [email or web address] Information not available 05/05/2025 Do you have transportation difficulties? No Information not available 05/05/2025 Are you able to walk? YESWOREST [email or web address] Information not available 05/05/2025 Do you have difficulty doing errands alone? No [email or web address] Information not available 05/05/2025 Are you able to care for yourself independently? Yes [email or web address] Information not available 05/05/2025 Do you have difficulty dressing, bathing, grooming, or toileting? No [email or web address] Information not available 05/05/2025 What is your exercise level? None [email or web address] Information not available 05/05/2025 Mental Status Question Answer Note LastModified by Organizat ion Details LastModified Time Do you feel stressed (tense, restless, nervous, or anxious, or unable to sleep at night)? [id number] [email or web address] Information not available 05/05/2025 Do you have difficulty concentrating, remembering or making decisions? No [email or web address] Information no t available 05/05/2025 Family History Nothing Reported. Medical History No medical history recorded. Gynecological HistoryNo gynecological history recorded. Obstetrics History GPAL:G 0 P 0 0 0 0 Immunizations Vaccine Type Date Status Note Provider Nam e and Address Organization Details Recorded Time COVID-19, mRNA, LNP-S, PF, 100 mcg/0.5mL dose or 50 mcg/0.25mL dose 1 completed Hussain cuellar, [place] - [facility] - [place] & [place] 05/05/2025 15:01:45 COVID-19 vaccine, vector-nr, rS-Ad26, PF, 0.5 mL 1 completed Hussain Card null, [place] - [facility] - [place] & [place] 05/05/2025 15:01:45 COVID-19, mRNA, LNP-S, PF, 50 mcg/0.5 mL 4 completed Hussain Card null, [place] - [facility] - [place] & [place] 05/05/2025 15:01:45 pneumococcal polysaccharide PPV23 5 completed Hussain Card null, [place] - [facility] & [place] 05/05/2025 15:01:45 Influenza, split virus, trivalent, PF 4 completed Hussain Card null, [place] - [facility] - [place] & [place] 05/05/2025 15:01:45 Influenza, split virus, quadrivalent, PF 0 completed Hussain Card null, [place] - [facility] - [place] & [place] 05/05/2025 15:01:45 Influenza, split virus, quadrivalent, PF 2 completed Hussain Card null, [place] - [facility] & [place] 05/05/2025 15:01:45 Influenza, split virus, quadrivalent, PF 5 completed Hussain Card null, [place] - [facility] & [place] 05/05/2025 15:01:45 Influenza, split virus, quadrivalent, PF 8 completed Hussain Card null, [place] - [facility] & [place] 05/05/2025 15:01:45 Past Encounters Encounter ID Performer Location Encounter Start Date Encounter Closed Date Diagnosis/Indication Diagnosis SNOMED-CT Code Diagnosis ICD10 Code Diagnosis Note [id number] CECIL WEEKS [facility] [address] [place] [id number] 05/05/2025 14:06:57 05/06/2025 09:24:24 Hyperthyroidism 76296762 E05.90 history of hyperthyro idawaiting lab resultsest ablishing baseline for ptcurrentl y on levothyrox ine from previous PCPwill reassess pending results 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 Rubin Arenas s for GI issues at [facility] in [place] for last 25 yearsdue to transporta tion needs, unable to make trip to [facility] equested referral for GI closer to homereferr al sent Prediabetes 607913747 R7 3.03 history of prediabete sawaiting lab results Screening for malignant neoplasm of lung 944625211 Z12.2 history of smokingqui t 5 years agosent order for LDCT Pain assoc iated with defecation 199974917 R19.8 PE showed epigastric pain with rebound tenderness reports pain with BM5-6 episodes of diarrheaCT scan orderedawa iting lab resultsf/u with office or ER if symptoms worsen or persist Hyperlipid emia screening 717054301 Z13.220 history of smokingest ablishing baseline for ptawaiting lab resultscur rently on a statin Screening for osteoporosis 885309409 Z13.820 establishi ng baseline for ptawaiting lab results Iron defic iency screening 186590574 Z13.0 establishi ng baseline for ptawaiting lab resultsrep orts B12 injections in past have helped her Essential hypertension 87659923 I10 recheck at next visit; will address if reading is high on next visitcurre ntly on metoprolol also follows cardiology [id number] ABRAHAM KULKARNI, PMHNP [facility] at [facility] [address] [place] [id number] 06/09/2025 10:02:32 06/09/2025 11:07:54 Health Concerns Section Related Observation LastModified by Organization Detai ls LastModified Time None Recorded Concern Status LastModified by Organization Details LastModified Time None Recorded Advance Directives Directive N: Payers Insurance Date Sequence Insurance Name Policy Number Policy Ayala Covered Member ID Ayala Member ID Guarantor Name 06/27/2025 1 [employer] (MEDICARE REPLACEMENT/ ADVANTAGE - HMO) Andrew Bejarano [id number] Andrew Bejarano 06/06/2025 [employer] (MEDICARE REPLACEMENT/ ADVANTAGE - PPO) Andrew Bejarano [id number] Andrew Bejarano 05/05/2025 1 [employer] (PPO) Andrew Bejarano [id number] Andrew Bejarano 06/06/2025 2 [place] [employer] CHO[employer] - FFS/TRADITIO NAL Andrew Bejarano [id number] Andrew Bejarano OBGyn Episode No OBEpisode recorded.
--- OUTSIDE RECORDS SUMMARY | 2025-06-27 21:33 | XMS_ITS | Patient Health Record ---
Author Organization [facility] [place] Address [address] [place] [address] Care Team Providers Care Product Safety Administrator Name Role Phone ANGELINA BOWIE Primary Care Provider Reason For Referral No Information Plan Of Treatment No Information
--- OUTSIDE RECORDS SUMMARY | 2025-06-27 21:33 | XMS_ITS | Continuity of Care Document ---
Author Organization [facility] Address [address] [address] Care Team Providers Care Extermination Supervisor Name Role Phone RADHA GALLO Referring Provider [...] TSH + free T4, serum [address] (Laboratory), [address] [place], [address], 05/12/2025 08:04:34 lipid panel, serum 2024 025 [facility] (Laboratory), [address] [place], [address], 05/05/2025 17:25:45 iron + TIBC + ferritin, serum [address] (Laboratory), [address] [place], [address], 05/12/2025 08:04:35 CBC w/ auto diff 2024 025 [facility] (Laboratory), [address] [place], [address], 05/05/2025 17:09:33 vitamin B12 + folate, serum or blood [address] (Laboratory), [address] [place], [address], 05/12/2025 08:04:35 hemoglobi n A1C/hemog lobin total, QN, blood [address] (Laboratory), [address] [place], [address], 05/12/2025 08:04:34 amylase + lipase, serum [address] [place] [address] (Laboratory), [address] [place], [address], 05/12/2025 08:04:34 CMP, serum or plasma 2024 025 [facility] (Laboratory), [address] [place], [address], 05/05/2025 17:25:43 vitamin D, 25-hydrox y, total, serum [address] [place] [address] (Laboratory), [address] [place], [address], 05/12/2025 08:04:34 Referral gastroent erologist referral 2024 025 Deangelo Redd MD, [address], [place], [address], 06/06/2025 08:36:[address] [facility] referral 2024 025 [id number] [facility] [address] [place], [address], 06/06/2025 08:36:15 Procedures None recorded. Surgeries None recorded. Imaging CT, abdomen + pelvis, w/ contrast 2024 025 [id number] [facility] (Scheduling), [address] [place], [address], 05/06/2025 08:54:22 LDCT, chest, for lung cancer screening 2024 025 [id number] [facility] (Scheduling), [address] [place], [address], 05/12/2025 08:04:25 Medication Orders None recorded. Patient TargetsNo targets recorded. Patient InstructionsNo instructions recorded. Reason for Referral Behavioral Health Referral f or Mixed anxiety and depressive disorder Referring Physician: Radha Gallo [facility], Encounter Date: 05/05/2025 [place] Referral for Pancreas divisum Referring Physician: Radha Gallo [facility], Encounter Date: 05/05/2025 Results Created Date Observation Date Name Description Value Unit Range Abnormal Flag Note LastModifiedBy Organization Detail LastModifiedTime 05/05/2005/05/2025 CBC AUTO W DIFF WBC 10.3 10 4.5-11 .5 Not Available [facility] (Lab Registration) [place], [address], 05/05/2025 17:09:32 05/05/20 25 05/05/2025 CBC AUTO W DIFF RBC 4.76 10 4.25-5 .57 Not Available [facility] (Lab Registration) [address] [place], [address], 05/05/2025 17:09:32 05/05/20 25 05/05/2025 CBC AUTO W DIFF HGB 15.1 g/dL 12.0-1 5.7 Not Available [facility] (Lab Registration) [address] [place], [address], 05/05/2025 17:09:32 05/05/20 25 05/05/2025 CBC AUTO W DIFF HCT 44.2 % 36.0-4 7.0 Not Available [facility] (Lab Registration) [address] [place], [address], 05/05/2025 17:09:32 05/05/20 25 05/05/2025 CBC AUTO W DIFF MCV 92.9 fL 80-95 Not Available [facility] (Lab Registration) [address] [place], [address], 05/05/2025 17:09:32 05/05/20 25 05/05/2025 CBC AUTO W DIFF MCH 31.7 pg 27.0-3 4.0 Not Available [facility] (Lab Registration) [address] [place], [address], 05/05/2025 17:09:32 05/05/20 25 05/05/2025 CBC AUTO W DIFF MCHC 34.2 g/dL 32.0-3 6.0 Not Available [facility] (Lab Registration) [address] [place], [address], 05/05/2025 17:09:32 05/05/20 25 05/05/2025 CBC AUTO W DIFF platelet count 332 10 150-45 0 Not Available [facility] (Lab Registration) [address] [place], [address], 05/05/2025 17:09:32 05/05/20 25 05/05/2025 CBC AUTO W DIFF RDW 15.5 % 12.3-1 5.1 high Not Available [facility] (Lab Registration) [address] [place], [address], 05/05/2025 17:09:32 05/05/20 25 05/05/2025 CBC AUTO W DIFF MPV 11.1 fL 7.4-10 .4 high Not Available [facility] (Lab Registration) [address] [place], [address], 05/05/2025 17:09:32 05/05/20 25 05/05/2025 CBC AUTO W DIFF granulocyte% 63.1 % 40-75 Not Available [facility] (Lab Registration) [address] [place], [address], 05/05/2025 17:09:32 05/05/20 25 05/05/2025 CBC AUTO W DIFF lymphocyte% 27.7 % 15-57 Not Available [facility] (Lab Registration) [address] [place], [address], 05/05/2025 17:09:32 05/05/20 25 05/05/2025 CBC AUTO W DIFF monocyte% 6.0 % 4.0-12 .0 Not Available [facility] (Lab Registration) [address] [place], [address], 05/05/2025 17:09:32 05/05/20 25 05/05/2025 CBC AUTO W DIFF eosinophil% 2.2 % 0.0-4. 0 Not Available [facility] (Lab Registration) [address] [place], [address], 05/05/2025 17:09:32 05/05/20 25 05/05/2025 CBC AUTO W DIFF basophil% 0.6 % 0.0-1. 0 Not Available [facility] (Lab Registration) [address] [place], [address], 05/05/2025 17:09:32 05/05/20 25 05/05/2025 CBC AUTO W DIFF immature granulocytes % 0.4 % 0.0-0. 8 Not Available [facility] (Lab Registration) [address] [place], [address], 05/05/2025 17:09:32 05/05/20 25 05/05/2025 CBC AUTO W DIFF granulocyte# 6.52 10 Not Available [facility] (Lab Registration) [address] [place], [address], 05/05/2025 17:09:32 05/05/20 25 05/05/2025 CBC AUTO W DIFF lymphocyte# 2.86 10 Not Available [facility] (Lab Registration) [address] [place], [address], 05/05/2025 17:09:32 05/05/20 25 05/05/2025 CBC AUTO W DIFF monocyte# 0.62 10 Not Available [facility] (Lab Registration) [address] [place], [address], 05/05/2025 17:09:32 05/05/20 25 05/05/2025 CBC AUTO W DIFF eosinophil# 0.23 10 Not Available [facility] (Lab Registration) [address] [place], [address], 05/05/2025 17:09:32 05/05/20 25 05/05/2025 CBC AUTO W DIFF basophil# 0.06 10 Not Available [facility] (Lab Registration) [address] [place], [address], 05/05/2025 17:09:32 05/05/20 25 05/05/2025 CBC AUTO W DIFF immature granulocytes # 0.04 10 Not Available [facility] (Lab Registration) [address] [place], [address], 05/05/2025 17:09:32 05/05/20 25 05/05/2025 CBC AUTO W DIFF manual differential NO Not Available [facility] (Lab Registration) [address] [place], [address], 05/05/2025 17:09:32 05/05/20 25 05/05/2025 CBC AUTO W DIFF note Unles s other sanchez noted testi ng perfo rmed at: [facility] [address] [facility] [place] [address] [phone] Bernard erazo MD CLIA: [id number] Not Available [facility] (Lab Registration) [address] [place], [address], 05/05/2025 17:09:32 05/05/20 25 05/05/2025 HEMOG LOBIN A1C glycosylated hemoglobin A1C 6.4 % 4.5-6. 2 high Not Available [facility] (Lab Registration) [address] [place], [address], 05/05/2025 17:10:39 05/05/20 25 05/05/2025 HEMOG LOBIN A1C estimated average glucose 137 mg/dL 82-131 high Not Available [facility] (Lab Registration) [address] [place], [address], 05/05/2025 17:10:39 05/05/20 25 05/05/2025 HEMOG LOBIN A1C note Unles s other sanchez noted testi ng perfo rmed at: [facility] [address] [facility] [place] [address] [phone] Bernard erazo MD CLIA: [id number] Not Available [facility] (Lab Registration) [address] [place], [address], 05/05/2025 17:10:39 05/05/20 25 05/05/2025 IRON/ TIBC/ %SAT (IRON STUDI ES) iron 43 ug/dL 35-150 Not Available [facility] (Lab Registration) [address] [place], [address], 05/05/2025 17:10:40 05/05/20 25 05/05/2025 IRON/ TIBC/ %SAT (IRON STUDI ES) total iron bind cap (TIBC) 387 ug/dL 250-45 0 Not Available [facility] (Lab Registration) [address] [place], [address], 05/05/2025 17:10:40 05/05/20 25 05/05/2025 IRON/ TIBC/ %SAT (IRON STUDI ES) % saturation 11 % 15-55 low Not Available [facility] (Lab Registration) [address], [place], [address], 05/05/2025 17:10:40 05/05/20 25 05/05/2025 IRON/ TIBC/ %SAT (IRON STUDI ES) note Cindy s other sanchez noted testi ng perfo rmed at: [facility] [address] [place] [address] [phone] Bernard erazo MD CLIA: [id number] Not Available [facility] (Lab Registration) [address], [place], [address], 05/05/2025 17:10:40 05/05/20 25 05/05/2025 THYRO ID STIMU LATIN G HORMO NE thyroid stimulating hormone 1.09 mIU/m L 0.34-4 .80 Not Available [facility] (Lab Registration) [address], [place], [address], 05/05/2025 17:24:39 05/05/20 25 05/05/2025 THYRO ID STIMU LATIN G HORMO NE note Cindy erazo other sanchez noted testi ng perfo rmed at: [facility] [address] [place] [address] [phone] Bernard erazo MD CLIA: [id number] Not Available [facility] (Lab Registration) [address], [place], [address], 05/05/2025 17:24:39 05/05/20 25 05/05/2025 T4 FREE T4,free 1.00 NG/dL 0.76-1 .46 Effec tive today 013 new Refer ence Range . Not Available [facility] (Lab Registration) [address], [place], [address], 05/05/2025 17:24:40 05/05/20 25 05/05/2025 T4 FREE note Cindy s other sanchez noted testi ng perfo rmed at: [facility] [address] [place] [address] [phone] Bernard erazo MD CLIA: [id number] Not Available [facility] (Lab Registration) [address] [place], [address], 05/05/2025 17:24:40 05/05/20 25 05/05/2025 AMYLA SE amylase 66 U/L 25-115 Not Available [facility] (Lab Registration) [address] [place], [address], 05/05/2025 17:25:41 05/05/20 25 05/05/2025 AMYLA SE note Unles s other sanchez noted testi ng perfo rmed at: [facility] [address] [place] [address] [phone] Bernard erazo MD CLIA: [id number] Not Available [facility] (Lab Registration) [address] [place], [address], 05/05/2025 17:25:41 05/05/20 25 05/05/2025 LIPAS E lipase 64 U/L 16-77 Not Available [facility] (Lab Registration) [address] [place], [address], 05/05/2025 17:25:42 05/05/20 25 05/05/2025 LIPAS E note Unles s other sanchez noted testi ng perfo rmed at: [facility] [address] [place] [address] [phone] Bernard erazo MD CLIA: [id number] Not Available [facility] (Lab Registration) [address] [place], [address], 05/05/2025 17:25:42 05/05/20 25 05/05/2025 COMP METAB OLIC PANEL sodium 139 mmol/ L 136-14 5 Not Available [facility] (Lab Registration) [address] [place], [address], 05/05/2025 17:25:43 05/05/20 25 05/05/2025 COMP METAB OLIC PANEL potassium 4.1 mmol/ L 3.5-5. 1 Not Available [facility] (Lab Registration) [address] [place], [address], 05/05/2025 17:25:43 05/05/20 25 05/05/2025 COMP METAB OLIC PANEL chloride 102 mmol/ L 98-107 Not Available [facility] (Lab Registration) [address] [place], [address], 05/05/2025 17:25:43 05/05/20 25 05/05/2025 COMP METAB OLIC PANEL carbon dioxide 29 mmol/ L 21-32 Not Available [facility] (Lab Registration) [address] [place], [address], 05/05/2025 17:25:43 05/05/20 25 05/05/2025 COMP METAB OLIC PANEL anion gap 8.0 Not Available [facility] (Lab Registration) [address] [place], [address], 05/05/2025 17:25:43 05/05/20 25 05/05/2025 COMP METAB OLIC PANEL glucose 110 mg/dL 70-110 Not Available [facility] (Lab Registration) [address] [place], [address], 05/05/2025 17:25:43 05/05/20 25 05/05/2025 COMP METAB OLIC PANEL blood urea nitrogen 15 mg/dL 7-18 Not Available [facility] (Lab Registration) [address] [place], [address], 05/05/2025 17:25:43 05/05/20 25 05/05/2025 COMP METAB OLIC PANEL creatinine 1.2 mg/dL 0.6-1. 0 high Not Available [facility] (Lab Registration) [address], [place], [address], 05/05/2025 17:25:43 05/05/2005/05/2025 COMP METAB OLIC PANEL BUN/creatini ne ratio 12.5 9-21 Not Available [facility] (Lab Registration) [address], [place], [address], 05/05/2025 17:25:43 05/05/20 25 05/05/2025 COMP METAB [...] lemus ing kiney funct ion. Not Available [facility] (Lab Registration) [address], [place], [address], 05/05/2025 17:25:43 05/05/20 25 05/05/2025 COMP METAB OLIC PANEL osmolality (calculated) 291 mOsm/ kg 275-30 1 OSMOL ALITY IS A CALCU LATIO N UTILI ZING THE SERUM /PLAS MA SODIU M, GLUCO SE AND UREA NITRO GEN (BUN) LEVEL S. FOR THE MOST ACCUR ATE RESUL T A MEASU RED SERUM OSMOL ALITY IS SUGGE STED. Not Available [facility] (Lab Registration) [address], [place], [address], 05/05/2025 17:25:43 05/05/2005/05/2025 COMP METAB OLIC PANEL total protein 8.0 g/dL 6.4-8. 2 Not Available [facility] (Lab Registration) [address], [place], [address], 05/05/2025 17:25:43 05/05/20 25 05/05/2025 COMP METAB OLIC PANEL albumin 3.9 g/dL 3.4-5. 0 Not Available [facility] (Lab Registration) [address] [place], [address], 05/05/2025 17:25:43 05/05/20 25 05/05/2025 COMP METAB OLIC PANEL calcium 8.9 mg/dL 8.5-10 .1 Not Available [facility] (Lab Registration) [address] [place], [address], 05/05/2025 17:25:43 05/05/20 25 05/05/2025 COMP METAB OLIC PANEL corrected calcium 9.0 mg/dL 8.5-10 .1 Not Available [facility] (Lab Registration) [address] [place], [address], 05/05/2025 17:25:43 05/05/20 25 05/05/2025 COMP METAB OLIC PANEL bilirubin total 0.5 mg/dL 0.4-1. 5 Not Available [facility] (Lab Registration) [address] [place], [address], 05/05/2025 17:25:43 05/05/20 25 05/05/2025 COMP METAB OLIC PANEL AST (SGOT) 18 U/L 15-37 Not Available [facility] (Lab Registration) [address] [place], [address], 05/05/2025 17:25:43 05/05/20 25 05/05/2025 COMP METAB OLIC PANEL ALT (SGPT) 12 U/L 12-78 Not Available [facility] (Lab Registration) [address] [place], [address], 05/05/2025 17:25:43 05/05/20 25 05/05/2025 COMP METAB OLIC PANEL alk phosphatase 136 U/L 53-141 Not Available [facility] (Lab Registration) [address] [place], [address], 05/05/2025 17:25:43 05/05/20 25 05/05/2025 COMP METAB OLIC PANEL note Unles s other sanchez noted testi ng perfo rmed at: [facility] [address] [place] [address] [phone] Bernard erazo MD CLIA: [id number] Not Available [facility] (Lab Registration) [address] , [place], [address], 05/05/2025 17:25:43 05/05/20 25 05/05/2025 LIPID PANEL triglyceride 419 mg/dL 20-200 high The Natio nal Elsie stero l Educa tion Progr am (NCEP ) has set the follo wing guide lines for Fasti ng Trigl yceri philippe: JUANITA L: <150 mg/dL BORDE RLINE HIGH: 150 - 199 mg/dL HIGH: 200 - 499 mg/dL VERY HIGH: > or =500 mg/dL Not Available [facility] (Lab Registration) [address] , [place], [address], 05/05/2025 17:25:45 05/05/20 25 05/05/2025 LIPID PANEL cholesterol 164 mg/dL 0-200 The Natio nal Elsie stero l Educa tion Progr am (NCEP ) has set the follo wing guide lines for Fasti ng Elsie stero l: ARIA ABLE: <200 mg/dL BORDE RLINE HIGH: 200 - 239 mg/dL HIGH: > or =240 mg/dL Not Available [facility] (Lab Registration) [address], [place], [address], 05/05/2025 17:25:45 05/05/20 25 05/05/2025 LIPID PANEL HDL cholesterol 56 mg/dL 60- low The Natio nal Elsie stero l Educa tion Progr am (NCEP ) has set the follo wing guide lines for Fasti ng HDL Elsie stero l: LOW HDL: <40 mg/dL JUANITA L: 40 - 60 mg/dL ARIA ABLE: >60 mg/dL Not Available [facility] (Lab Registration) [address], [place], [address], 05/05/2025 17:25:45 05/05/20 25 05/05/2025 LIPID PANEL [...] > or = 190 mg/dL Not Available [facility] (Lab Registration) [address], [place], [address], 05/05/2025 17:25:45 05/05/20 25 05/05/2025 LIPID PANEL chol/HDL ratio 3 -5 Not Available [facility] (Lab Registration) [address], [place], [address], 05/05/2025 17:25:45 05/05/20 25 05/05/2025 LIPID PANEL note Unles s other sanchez noted testi ng perfo rmed at: [facility] [address] [place] [address] [phone] Bernard erazo MD CLIA: [id number] Not Available [facility] (Lab Registration) [address], [place], [address], 05/05/2025 17:25:45 05/05/20 25 05/05/2025 VITAM IN D TOTAL (D2+D 3) vitamin D25 (D2+D3) 11.6 NG/mL 30-100 low Not Available [facility] (Lab Registration) [address] [place], [address], 05/05/2025 17:25:47 05/05/20 25 05/05/2025 VITAM IN D TOTAL (D2+D 3) note Cindy hatfield sanchez noted testi ng perfo rmed at: [facility] [address] [place] [phone] Bernard erazo MD CLIA: [id number] Not Available [facility] (Lab Registration) [address] [place], [address], 05/05/2025 17:25:47 05/05/20 25 05/05/2025 HILLARY TIN ferritin 35 NG/mL 8-388 Not Available [facility] (Lab Registration) [address] [place], [address], 05/05/2025 17:25:48 05/05/20 25 05/05/2025 HILLARY TIN note Cindy hatfield sanchez noted testi ng perfo rmed at: [facility] [address] [place] [phone] Bernard erazo MD CLIA: [id number] Not Available [facility] (Lab Registration) [address] [place], [address], 05/05/2025 17:25:48 05/05/20 25 05/05/2025 VITAM IN B12 vitamin B12 247 pg/mL 193-98 6 Not Available [facility] (Lab Registration) [address] [place], [address], 05/05/2025 17:25:49 05/05/20 25 05/05/2025 VITAM IN B12 folate (folic acid), serum 17.2 NG/mL 8.6-58 .9 Not Available [facility] (Lab Registration) [address] [place], [address], 05/05/2025 17:25:49 05/05/20 25 05/05/2025 VITAM IN B12 note Cindy erazo other sanchez noted testi ng perfo rmed at: [facility] [address] [place] [address] [phone] Bernard erazo MD CLIA: [id number] Not Available [facility] (Lab Registration) [address] [place], [address], 05/05/2025 17:25:49 05/05/20 25 05/05/2025 CT ABD/p [place] W IV and [facility] [address] [facility] [place] [address] Phone: Fax: Name: ANDREW BEJARANO Exam Date: 05/05/20 : 1959 Age 64 years Gender : F Access ion: [id number] Physic melodie: RADHA YEH Facili ty: [facility] Facili ty HSV: Outpat ient Exam: CT [...] you for referr ing ANDREW BEJARANO to [facility]. Legall y authen ticate d by BARBARA Woo MD 05-05 18:49: 00 CC'ed Logic: Orderi ng Provid er: DENNY GACRIA CC Provid er: LEO RODRIGUEZ Attend ing Provid er: DENNY GARCIA Referr ing Provid er: DENNY GARCIA Admitt ing Provid er: DENNY [email or web address] [facility] (Radiology) [address], [place], [address], 05/06/2025 12:40:28 05/05/20 25 05/05/2025 CT, abdom en + pelvi s, w/ contr ast No observ ation record ed. [facility] (Radiology) [address] [place], [address], 05/06/2025 12:41:26 05/05/20 25 05/05/2025 CT, abdom en + pelvi s, w/ contr ast No observ ation record ed. [facility] (Radiology) [address] , [place], [address], 05/06/2025 12:41:26 Result Notes None recorded. Problems Name Problem SNOMED Code Status Onset Date Resolution Date Notes Provider Name and Address Organization Details Recorded Time Essential hypertension 71070884 Active 2024 Hussain Card null, [place] [facility] [place] 15:08:24 Prediabetes 232570622 Active 2024 Hussain Card [place] [facility] [place] 15:08:43 Mixed anxiety and depressive disorder 733752635 Active 2024 Hussain Card [place] [facility] [place] 15:09:02 Hyperthyroidis m 70899158 Active 2024 Hussain Card [place] [facility] [place] 15:09:26 Pancreas divisum 87880088 Active 2024 Hussain Card [place], [place] [facility] [place] 15:09:59 Problem Notes None recorded. Procedures Surgical History Date Name Laterality Status Provider Name and Address Organization Details Recorded Time Tubal Ligation completed Hussain Card [place] [facility] [place] 05/05/2025 15:21:17 hysterectomy completed Hussain Card [place] [facility] [place] 05/05/2025 15:21:24 insertion of infusion pump beneath skin completed Hussain Card [place] [facility] [place] 05/05/2025 15:22:02 placement of stent in coronary artery completed Hussain Card [place] [facility] [place] 05/05/2025 15:22:18 appendectomy completed Hussain Card [place] [facility] [place] 05/05/2025 15:22:36 cholecystectomy completed Hussain Card [place] [facility] [place] 05/05/2025 15:22:46 Imaging Results None recorded. Procedure Notes None recorded. Medical Equipment None Reported. Allergies Allergen ID Allergen Name Allergen Category Reaction Reaction Severity Criticality Documentation Date Start Date Code Code System Note Provider Name and Address Organization Details Recorded Time 154865 tramadol medicatio n Not available Not available Not available 05/05/2025 98158 RxNorm TERESA Barney [facility] & [place] 15:01:58 245208 Cipro medicatio n Not available Not available Not available 05/05/2025 50738 3 RxNorm TERESA [facility] & [place] 15:02:09 173126 Demerol medicatio n Not available Not available Not available 05/05/2025 06842 1 RxNorm TERESA Barney [facility] & [place] 15:03:24 Medications Name Sig Start Date Stop [...] Updated DateTime 5 167.64 cm 31.5 kg/m2 68383.5 1 g 98.4 [degF] 94 % 94 % 72 /min 18 /min 135/83 mm[Hg] Hussain MOORE - [place] - [place] 5 15:01:22 Social History Question Answer Notes LastModified by Organizat ion Details LastModified Time Tobacco Smoking Status Former Smoker Hussain Card [facility], [facility] & [place] 05/05/2025 15:13:37 Do You Have An Advance Directive? No [email or web address] Information n ot available 05/05/2025 Do You Wear A Helmet When Biking? Yes [email or web address] Information not available 05/05/2025 Are You Blind Or Do You Have Difficulty Seeing? No [email or web address] Information n ot available 05/05/2025 What Is Your Level Of Caffeine Consumption? Moderate [email or web address] Information not available 05/05/2025 In The 14 Days Before Symptom Onset, Have You Had Close Contact With A Laboratory-confirm ed COVID-19 While That Case Was Ill? No Information n ot available 05/05/2025 In The 14 Days Before Symptom Onset, Have You Had Close Contact With A Person Who Is Under Investigation For COVID-19 While That Person Was Ill? No [email or web address] Information not available 05/05/2025 Have You Been To An Area Known To Be High Risk For COVID-19? No [email or web address] Information not available 05/05/2025 Are You Deaf Or Do You Have Serious Difficulty Hearing? No [email or web address] Information not available 05/05/2025 What Type Of Diet Are You Following? REGULAR [email or web address] Information n ot available 05/05/2025 Have You Processed Blood Or Body Fluids From An Ebola Virus Disease Patient Without Appropriate PPE? No [email or web address] Information not available 05/05/2025 Do You Reside In Or Have You Traveled To An Area Where Ebola Virus Transmission Is Active? No [email or web address] Information not available 05/05/2025 Have There Been Any Changes To Your Family Or Social Situation? No [email or web address] Information no t available 05/05/2025 What Is The Fluoride Status Of Your Home? Unknown [email or web address] Information not available 05/05/2025 When Did You Quit Smoking? 1-5yearssince lastcigarette [email or web address] Information not available 05/05/2025 Are There Any Guns Present In Your Home? No [email or web address] Information not available 05/05/2025 Have You Recently Or Are You Planning To Travel To An Area With Zika Virus? No [email or web address] Information not available 05/05/2025 Do You Use Insect Repellent Routinely? Yes [email or web address] Information not available 05/05/2025 Do You Feel Safe At Home? Yes [email or web address] Information not available 05/05/2025 Do You Have A Medical Power Of Table Attendant? No [email or web address] Information not available 05/05/2025 What Was The Date Of Your Most Recent Tobacco Screening? 05/05/2025 [email or web address] Information not available 05/05/2025 What Is Your Current Pack Years? 10packyears [email or web address] Information not available 05/05/2025 Do You Have Any Pets? No [email or web address] Information not available 05/05/2025 What Is Your Relationship Status? [email or web address] Information not available 05/05/2025 Do You Use Your Seat Belt Or Car Seat Routinely? Yes Information not available 05/05/2025 Do You Have Smoke And Carbon Monoxide Detectors In Your Home? Yes Information not available 05/05/2025 At What Age Did You Start Smoking Tobacco? 20 [email or web address] Information not available 05/05/2025 Are You Passively Exposed To Smoke? No [email or web address] Information no t available 05/05/2025 How Much Tobacco Do You Smoke? No [email or web address] Information not available 05/05/2025 What Types Of Sporting Activities Do You Participate In? None, Cant Breath Or Move Much [email or web address] Information not available 05/05/2025 Do You Use Sunscreen Routinely? Yes [email or web address] Information not available 05/05/2025 Has Tobacco Cessation Counseling Been Provided? Yes [email or web address] Information not available 05/05/2025 On What Date Was Tobacco Cessation Counseling Provided? 05/05/2025 [email or web address] Information not available 05/05/2025 How Many Years Have You Smoked Tobacco? 40 Information not available 05/05/2025 Do You Have Difficulty Walking Or Climbing Stairs? No [email or web address] Information not available 05/05/2025 Are You Currently In School? No [email or web address] Information not available 05/05/2025 Sex: Unknown Functional Status Question Answer Note LastModified by Organizat ion Details LastModified Time Do you use any illicit or recreational drugs? No [email or web address] Information not available 05/05/2025 Do you or have you ever used any other forms of tobacco or nicotine? No [email or web address] Information not available 05/05/2025 What is your level of alcohol consumption? None [email or web address] Information not available 05/05/2025 Are you currently employed? No [email or web address] Information not available 05/05/2025 Do you have transportation difficulties? No [email or web address] Information not available 05/05/2025 Are you able to walk? YESWOREST [email or web address] Information not available 05/05/2025 Do you have difficulty doing errands alone? No [email or web address] Information not available 05/05/2025 Are you able to care for yourself independently? Yes [email or web address] Information not available 05/05/2025 Do you have difficulty dressing, bathing, grooming, or toileting? No [email or web address] Information not available 05/05/2025 What is your exercise level? None [email or web address] Information not available 05/05/2025 Mental Status Question Answer Note LastModified by Organizat ion Details LastModified Time Do you feel stressed (tense, restless, nervous, or anxious, or unable to sleep at night)? [id number] [email or web address] Information not available 05/05/2025 Do you have difficulty concentrating, remembering or making decisions? No [email or web address] Information no t available 05/05/2025 Family History Nothing Reported. Medical History No medical history recorded. Gynecological HistoryNo gynecological history recorded. Obstetrics History GPAL:G 0 P 0 0 0 0 Immunizations Vaccine Type Date Status Note Provider Nam e and Address Organization Details Recorded Time COVID-19, mRNA, LNP-S, PF, 100 mcg/0.5mL dose or 50 mcg/0.25mL dose 1 completed Hussain cuellar, [place] - [facility] [place] & [place] 05/05/2025 15:01:45 COVID-19 vaccine, vector-nr, rS-Ad26, PF, 0.5 mL 1 completed Hussain Card null, [place] - [facility] [place] 05/05/2025 15:01:45 COVID-19, mRNA, LNP-S, PF, 50 mcg/0.5 mL 4 completed Hussain cuellar, [place] - [facility] [place] 05/05/2025 15:01:45 pneumococcal polysaccharide PPV23 5 completed Hussain Card null, [place] - [facility] [place] 05/05/2025 15:01:45 Influenza, split virus, trivalent, PF 4 completed Hussain Card null, [place] - [facility] [place] 05/05/2025 15:01:45 Influenza, split virus, quadrivalent, PF 0 completed Hussain Card null, [place] - [facility] [place] 05/05/2025 15:01:45 Influenza, split virus, quadrivalent, PF 2 completed Hussain Pradoles null, [place] - [facility] [place] 05/05/2025 15:01:45 Influenza, split virus, quadrivalent, PF 5 completed Hussain Card null, [place] - [facility] [place] 05/05/2025 15:01:45 Influenza, split virus, quadrivalent, PF 8 completed Hussain Card null, [place] - [facility] [place] 05/05/2025 15:01:45 Past Encounters Encounter ID Performer Location Encounter Start Date Encounter Closed Date Diagnosis/Indication Diagnosis SNOMED-CT Code Diagnosis ICD10 Code Diagnosis Note [id number] CECIL WEEKS [facility] [address] [facility] [id number] 1 05/05/2025 14:06:57 05/06/2025 09:24:24 Hyperthyroidism 46864380 E05.90 history of hyperthyro idawaiting lab resultsest ablishing baseline for ptcurrentl y on levothyrox ine from previous PCPwill reassess pending results 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 Rubin erazo for GI issues at [facility] in [place] for last 25 yearsdue to transporta tion needs, unable to make trip to [facility] equested referral for GI closer to homereferr al sent Prediabetes 412583224 R7 3.03 history of prediabete sawaiting lab results Screening for malignant neoplasm of lung 633503275 Z12.2 history of smokingqui t 5 years agosent order for LDCT Pain assoc iated with defecation 197084858 R19.8 PE showed epigastric pain with rebound tenderness reports pain with BM5-6 episodes of diarrheaCT scan orderedawa iting lab resultsf/u with office or ER if symptoms worsen or persist Hyperlipid emia screening 739266953 Z13.220 history of smokingest ablishing baseline for ptawaiting lab resultscur rently on a statin Screening for osteoporosis 144594909 Z13.820 establishi ng baseline for ptawaiting lab results Iron defic iency screening 117806139 Z13.0 establishi ng baseline for ptawaiting lab resultsrep orts B12 injections in past have helped her Essential hypertension 11268710 I10 recheck at next visit; will address [...] HEALTH CHOICES - FFS/TRADITIO NAL Andrew Bejarano [id number] Andrew Bejarano 05/05/2025 1 [employer] (MEDICARE REPLACEMENT/ ADVANTAGE - HMO) Andrew Bejarano [id number] Andrew Bejarano OBGyn Episode No OBEpisode recorded.
--- OUTSIDE RECORDS SUMMARY | 2025-06-27 21:33 | XMS_ITS | Clinical Summary ---
Author Organization Healthcare Address [address] [place] [address] Care Team Providers Care Metal Refiner Name Role Phone Oskar Donovan MD Primary Care Provider [phone] Medications No known medications Active Problems No [...] 07/29/2021 07/29/2020, 07/24/2020 [facility]-Colorectal Cancer Screening 07/29/2021 [id number] Vaccine (3 - season) 2024 10/09/2021, 02/02/2021 [...] ORDERABLES Final Resul t Performing Organization Address City/[facility] Co de Phone Number HEALTHCARE [facility] [address] [place] [address] * [place] Hepatitis C Antibody (04/11/2022 6:36 PM EDT) Hepatitis C Antibody Negative Negative 04/11/2022 9:56 PM EDT HEALTHCARE LAB Blood Venous blood specimen / Unknown Venipuncture / Unknown 04/11/2022 6:36 PM EDT 04/11/2022 6:43 PM EDT Leland Miller MD LAB BLOOD ORDERABLES Final Resul t Performing Organization Address City/[facility] Co de Phone Number HEALTHCARE [facility] [address] [place] [address] from Last 3 Months or Most Recently Relevant to Health Maintenance Insurance [facility] MEDICARE Care Teams Metal Refiner Relationship Specialty Start Date End Date Oskar Donovan MD [address] [place] [address] PCP - General 04/13/21
--- OUTSIDE RECORDS SUMMARY | 2025-06-27 21:33 | XMS_ITS | Clinical Summary ---
Author Organization [facility] Address [address] [id number] Care Team Providers Care Siding Coreboard Inspector Name Role Phone Juan C Colón MD Primary Care Provider [phone] Allergies Active Allergy Reactions Criticality Noted Date [...] MG/0.1ML nasal spray Call 911. Don't prime. [place] in 1 nostril for overdose. Repeat in 2-3 minutes in other nostril if no or minimal breathing/respon siveness. 2 each 3 Active sodium-potassiu m-magnesium sulfates (Suprep Bowel Prep Kit) 17.5-3.13-1.6 GM/177ML solution oral solution Take 2 bottles by mouth Take As Directed. Do not eat the day before your procedure. If you didn't receive instructions call [phone]. 354 mL 4 Active promethazine (PHENERGAN) 25 [...] or training? Not on file Preferred Language Montenegrin 02/17/2024 Comments No Sex and Gender Information [...] Description 08/18/2025 1:30 PM EDT Office Visit [facility] [address] [facility] [address] [place] [address] Kerry Monae APRN [address] [facility] [address] [place] [address] Health Maintenance Due Date Last Done Comments [...] Completed 04/11/2022 Medical Devices Implanted Type Area Bell Spinner Sousaphones Device Identifier Shelf Expiration Date Model / [...] PM EDT) Fecal Occult Blood Negative Negative [facility] Lot Number [id number] [facility] Expiration Date 06/21 [facility] DEVELOPER LOT NUMBER [id number] [facility] DEVELOPER EXPIRATION DATE 05/23 [facility] Positive Control Positive Positive [facility] Negative Control Negative Negative [facility] Stool Specimen from rectum / Unknown 07/29/2020 7:04 PM EDT us Cheko Galdamez MD POINT OF CARE TEST ORDERABLES Final Result [facility]
[address] [place] [address], * (ABNORMAL) Hemoglobin A1c (08/01/2017 5:10 AM EDT) Hemoglobin A1C 6.30(H) 4.80 - 5.60 % 08/01/2017 8:00 AM EDT [facility] Blood 08/01/2017 5:10 AM EDT 08/01/2017 5:26 AM EDT Narrative [facility] - 08/01/2017 8:00 AM EDT The [place] [employer] recommends maintenance of Hemoglobin A1C at 7.0% or lower. Goals for Hemoglobin A1C reduction may need to be modified if hypoglycemia is a problem. us Lili Mandujano II, DO LAB BLOOD ORDERABLES Elodia agustin Result [facility]
[address] [place] [address], from Last 3 Months or Most Recently [...] 9:25 AM 08/04/2017 3:38 PM Care Teams Siding Coreboard Inspector Relationship Specialty Start Date End Date Juan C Colón MD [address] [place] [id number] PCP - General Family Medicine 04/30/23
--- OUTSIDE RECORDS SUMMARY | 2025-06-27 21:33 | XMS_ITS | Clinical Summary ---
Author Organization [facility] Address [address] [place] [address] Phone Care Team Providers Care Aerospace Technician Name Role Phone Sami Rasheed MD Unavailable [ ] Conditions or Problems Problem Name Problem Code Onset Date Status Entry Date Provider Comment Standard Description Annotate Chronic mastoiditis, bilateral 44945242 (SNOMED CT) Active Courtney Gordon Chronic mastoiditis Acute mastoiditis, bilateral, without complications H70.003 (ICD-10-CM ) Active Courtney Gordon Acute mastoiditis without complications , bilateral Benign Essential Hypertension 84929441 (SNOMED CT) Active Courtney Gordon Benign hypertension Medications Medication Instructions Start Date Stop Date Generic Name ND Provider MEDROL 4 MG TBPK tapering METHYLPREDNISOLONE [id number] Jorge Mckeon ACIDOPHILUS CAPS LACTOBACILLUS [id number] Jorge Mckeon CEFDINIR 300 MG CAPS twice daily CEFDINIR [id number] Jorge Mckeon PERCOCET 5-325 MG TABS 1-2 tablets every 4 hours as needed OXYCODONE-ACETAMINOP HEN [id number] Jorge Mckeon Medications Administered No information available. [...]
--- OUTSIDE RECORDS SUMMARY | 2025-06-27 21:33 | XMS_ITS | Clinical Summary ---
Author Organization [facility] Address [address] [place] [address] Phone Care Team Providers Care Sales Representative [facility] Name Role Phone Unavailable Primary Care Provider [...] Mcmanus MD CHEMISTRY ORDERABLES Edit ed [facility] [address] [place] [address] from Last 3 Months or Most Recently Relevant to Health Maintenance Insurance MEDICARE [place] PART A AND B MEDICAID [place] Member Subscriber Plan / Payer (Ef fective 2011-Present) Name:Linda Arteaga Relation to Subscriber:Self Name:Linda Arteaga Payer ID:Not on file Group ID:Not on file Type:Not on file Address: [address] [place] [id number] [place] [address] [place]
[2025-06-27 21:41] LABS: Color,Urine Dark Yellow (Yellow)
[2025-06-27 21:44] LABS: WBC,Urine 20-50 #/hpf (0-3)
--- NOTE | 2025-06-27 21:44 | ECG_ITS ---
APPROVED REPORT Exam: Resting ECG HR:78 bpm ECG Measurements Heart Rate 78 AXES ME 235 P 72 QRSd 97 QRS 76 QT 409 T 74 QTc 442 Conclusion SINUS RHYTHM WITH FIRST DEGREE AV BLOCK ABNORMAL ECG UNCONFIRMED REPORT Electronically signed by : KIN DILLARD, 06/28/2025 03:50:12
[2025-06-27 21:46] LABS: Amorphous Sediment,Urine 1+ /lpf; Bacteria,Urine 2+ /lpf; Calcium Oxalate Crystals,Urine 1+ /lpf
[2025-06-27] MEDS: LACTATED RINGERS 1000ML 1,000 ML 999 ML IV (21:48)
[2025-06-27] MEDS: ACETAMINOPHEN 1,000MG/100ML VIAL 1000 MG IV (21:49)
[2025-06-27] MEDS: MORPHINE 4MG/ML SYRINGE 4 MG IV (21:49)
[2025-06-27] MEDS: ONDANSETRON 4MG/2ML VIAL 4 MG IV (21:49)
[2025-06-27 21:57] LABS: Chloride 99 mmol/L (98-107)
[2025-06-27 21:58] LABS: Albumin Level 3.6 g/dl (3.5-5.0); Potassium 3.6 mmoL/L (3.5-5.1); Sodium 136 mmol/L (136-145)
[2025-06-27 22:01] LABS: Alanine Aminotransferase 13 U/L (12-78); Albumin/Globulin Ratio 1.0 (1.1-1.8); Alkaline Phosphatase 94 U/L (38-126); Anion Gap 10.6 mEq/L (5-15); Aspartate Amino Transferase 24 U/L (14-36); Bilirubin,Total 0.7 mg/dl (0.2-1.3); Blood Urea Nitrogen 15 mg/dl (7-17); Carbon Dioxide 30 mmol/L (22.0-30.0); Creatinine Clearance Estimated 90 mL/min (50-200); Creatinine,Serum 1.00 mg/dl (0.52-1.04); Estimated Glomerular Filt Rate 56 ml/min (>60); GFR (African American) 68 ML/MIN (>60); Globulin 3.7 g/dL (1.3-3.2); Total Protein,Serum 7.3 g/dl (6.3-8.2)
[2025-06-27 22:02] LABS: Calcium 8.6 mg/dl (8.4-10.2); Glucose 152 mg/dl (74-100)
[2025-06-27 22:05] LABS: Hematocrit 39.0 % (37.0-47.0); Hemoglobin 12.2 g/dL (12.2-16.2); Immature Granulocytes % 0.3 %; Mean Corpuscular HGB Conc 31.3 g/dL (31.8-35.4); Mean Corpuscular Hemoglobin 30.0 pg (27.0-31.2); Mean Corpuscular Volume 96.1 fl (81-99); Nucleated Red Blood Cells % 0 %; Platelet Count 268 K/mm3 (142-424); Red Blood Count 4.06 M/mm3 (4.20-5.40); Red Cell Distribution Width-SD 52.2 fL; White Blood Count 7.0 K/mm3 (4.8-10.8)
[2025-06-27 22:17] LABS: Lipase 68 U/L (23-300)
[2025-06-27] MEDS: HYDROMORPHONE 2MG/ML SYRINGE 0.5 MG IV (22:17)
[2025-06-27] MEDS: CEFTRIAXONE 1 GM 1 GM in 0.9 % SODIUM CHLORIDE 50 ML IV (22:17)
[2025-06-27] MEDS: IOPAMIDOL-370 (76%);100ML BOTTLE 75 ML IV (22:20)
[2025-06-27] MEDS: SODIUM CHLORIDE 0.9% 10ML SYR (RAD ONLY) 10 ML IV (22:21)
[2025-06-27 22:54] LABS: Troponin I < 0.01 ng/ml (0.00-0.034)
[2025-06-28] MEDS: OXYCODONE 5MG IMMEDIATE RELEASE TABLET 5 MG PO (00:15)
== END 2025-06-28 00:26 | disposition home or self-care (01) ==
PROVIDERS: Emergency Medicine; Emergency Provider Emergency Medicine; PCP Family Medicine
DX: R10.13 Epigastric pain (principal); N39.0 Urinary tract infection, site not specified; R19.7 Diarrhea, unspecified; K86.1 Other chronic pancreatitis; E78.5 Hyperlipidemia, unspecified
CPT/HCPCS: 74177; 80053; 81001; 83690; 84484; 85025; 87086; 93005; 96361; 96374; 96375; 99285; J0131; J0696; J1171; J1642; J2270; J2405; J7120; Q9967

== ENCOUNTER 2025-07-25 00:20 | Observation (INO) | payer MEDICARE, MEDICAID, SELFPAY ==
[2025-07-25] VITALS (14 sets, daily range): BP systolic 96–155; BP diastolic 43–105; PULSE 76–111; RESP 16–24; TEMP 36.2–36.9; O2SAT 90–98; BMI 30.7; BMI 33.3
--- NOTE | 2025-07-25 00:15 | HMH.EDGENADL ---
Discharge Plan Disposition Patient Disposition: Admitted Condition: Good Clinical Impressions Clinical Impression: Chronic pancreatitis, UTI (urinary tract infection) Discharge ED Provider: Tramaine Liu General Adult HPI General Chief complaint: Abdominal Pain Stated complaint: Pancreatic Pain Time Seen by Provider: 07/25/25 00:21 History of Present Illness HPI narrative: 84-year-old female with history of chronic pancreatitis due to pancreatic divisum, COPD on nasal cannula at baseline, hypertension, diabetes presents for epigastric pain. She reports severe epigastric pain shooting to her back with associated nausea vomiting over the last 2 days. She reports that she has been able unable to eat anything. She reports that her pancreatitis is due to pancreatic divisum. She has had a cholecystectomy. She denies any urinary symptoms. Denies any fever at home. Patient reports that she feels like she needs to be admitted because her pain is so bad. She also reports that she has bedbugs and cockroaches in her home. Related Data Home Medications ?Medication ?Instructions ?Recorded ?Confirmed rivaroxaban 20 mg tablet (Xarelto) 20 mg PO QPMWITHMEAL 05/12/25 06/27/25 cholecalciferol (vitamin D3) 1,250 1,250 mcg PO WEEKLY 05/26/25 06/27/25 mcg (50,000 unit) capsule gabapentin 600 mg tablet 600 mg PO BID 05/26/25 06/27/25 magnesium oxide 400 mg (241.3 mg 400 mg PO BID 05/26/25 06/27/25 magnesium) tablet ropinirole 0.25 mg tablet 0.25 mg PO HS 05/26/25 06/27/25 quetiapine 25 mg tablet 25 mg PO DAILY 06/09/25 06/27/25 verapamil 120 mg tablet,extended 120 mg PO BID 06/23/25 06/27/25 release Previous Rx's ?Medication ?Instructions ?Recorded atorvastatin 40 mg tablet 40 mg PO HS #90 tabs 02/07/25 levothyroxine 100 mcg tablet 100 mcg PO DAILYDM #90 tabs 02/15/25 furosemide 20 mg tablet 40 mg (2 x 20 mg) PO DAILY 30 days 02/19/25 #60 tabs pantoprazole 40 mg tablet,delayed 40 mg PO HS 30 days #30 tabs 04/06/25 release potassium chloride 10 mEq 10 meq PO DAILY #90 tabs 04/13/25 tablet,extended release duloxetine 60 mg capsule,delayed 60 mg PO BID 90 days #180 caps 04/18/25 release metformin 1,000 mg tablet 1,000 mg PO BIDWMEAL #60 tabs 04/18/25 hydrocortisone acetate 25 mg 25 mg RI DAILY PRN hemorrhoids #24 05/25/25 rectal suppository (Anusol-HC) ea ondansetron 4 mg disintegrating 4 mg PO Q8H PRN nausea and 05/25/25 tablet vomiting 4 days #12 tabs polyethylene glycol 3350 17 17 g PO DAILY PRN constiptation 05/25/25 gram/dose oral powder (Miralax) #510 grams mupirocin 2 % topical ointment 1 applic topical TID #22 grams 06/23/25 promethazine 12.5 mg tablet 12.5 mg PO Q6HP PRN Nausea And 06/23/25 Vomiting #60 tabs oxycodone 5 mg tablet 5 mg PO Q8H PRN pain #12 tabs 06/27/25 sulfamethoxazole 800 1 tab PO BID 7 days #14 tabs 06/27/25 mg-trimethoprim 160 mg tablet ferrous sulfate 325 mg (65 mg 325 mg PO BID #60 tabs 07/08/25 iron) tablet trazodone 100 mg tablet 100 mg PO HS #90 tabs 07/08/25 montelukast 10 mg tablet 10 mg PO HS #30 tabs 07/18/25 ranolazine 500 mg tablet,extended 500 mg PO BID 30 days #60 tabs 07/18/25 release,12 hr alprazolam 1 mg tablet 1 mg PO BID Anxiety #60 tabs 07/22/25 Allergies Allergy/AdvReac Type Severity Reaction Status Date / Time codeine (CODEINE) Allergy Intermediate N/V Verified 06/23/25 13:14 ketorolac (KETOROLAC) Allergy Intermediate Hives Verified 06/23/25 13:14 meperidine (MEPERIDINE) Allergy Intermediate Hives Verified 06/23/25 13:14 tramadol (TRAMADOL) Allergy Intermediate Hives Verified 06/23/25 13:14 ciprofloxacin AdvReac Severe Interacts Verified 06/23/25 13:14 with cymbalta [facility] Disclaimer: The information contained in this section may have been updated after the patient was seen, as this information can be updated by other users. Medical History Internal hemorrhoid, bleeding Multiple falls Pancreatic divisum Afib Esophageal dilatation Multiple lung nodules on CT Pulmonary emphysema Hypocalcemia Hypokalemia Acidosis, lactic GI bleed Noncompliance with medication regimen Tobacco dependence in remission Pancreas divisum of [place] pancreas Encounter for pre-operative cardiovascular clearance Orthopnea CHF (congestive heart failure) Pancreatitis Nausea vomiting and diarrhea Exhausted vascular access Rib fractures Chronic hypoxemic respiratory failure Coronary artery disease COPD (chronic obstructive pulmonary disease) HLD (hyperlipidemia) Diabetes Anxiety and depression TIA (transient ischemic attack) History of stroke History of multiple cerebrovascular accidents (CVAs) History of class III angina pectoris Typical angina Dyspnea History of pancreatitis History of CVA (cerebrovascular accident) Surgical History History of banding of hemorrhoid History of biliary duct stent placement History of hysterectomy History of cholecystectomy History of coronary artery stent placement Family History Other Family history of cancer Family history of diabetes mellitus Social History Smoking Status: Current every day smoker tobacco type: e-cigarettes years smoked: 45 how long ago did patient quit smokin years ago quit status: quit date established second hand exposure: No alcohol intake: never counseling provided: none substance use type: marijuana and crack/cocaine current occupational status: other Travel in the last 8 weeks?: None household members: significant other housing: house marital status: number of children: 2 current occupational exposures/hazards: No caffeine: Yes Other Medical History Have you received the Flu Vaccine for this season: No Have you received the Pneumonia Vaccine: No ROS Obtained: Yes All systems reviewed & no additional complaints except as documented Physical Exam General General appearance: alert Comment: Crying Head Head exam: atraumatic and normocephalic Eye Eye exam: Present normal appearance, PERRL and EOMI ENT ENT exam: Present normal oropharynx and normal external ear exam Neck Neck exam: Present normal inspection and full ROM Chest Chest inspection: Present normal inspection and symmetric chest wall rise; Absent tenderness Respiratory Respiratory exam: Present normal lung sounds bilaterally; Absent respiratory distress Cardiovascular Cardiovascular exam: Present regular rate and normal rhythm Abdominal Exam Abdominal exam: Present soft and tenderness (Epigastric); Absent distention or guarding Extremities Exam Extremities exam: Present normal inspection; Absent edema or joint swelling Back Exam Back exam: Present normal inspection; Absent tenderness Neurological Exam Neurological exam: Present alert and oriented X3; Absent motor sensory deficit Psychiatric Psychiatric exam: Present anxious (crying) Skin Skin exam: Present warm, dry and normal color Lymphatic Lymphatic Findings: no adenopathy Medical Decision Making Medical Records Medical records reviewed: Yes I reviewed the patient's medical records. Screening: Per USPSTF and CDC recommendations, given the prevalence of disease in our region, it is our hospital?s policy to screen for HIV and viral Hepatitis for all patients aged 18 and over and those with ongoing risk factors. Delroy Inquiry Pt receiving controlled substance: No Delroy was queried for this patient: No Vital Signs: 07/25/25 00:20 07/25/25 01:59 07/25/25 02:31 Temperature 98.4 F Temperature Source Oral Pulse Rate 95 H 91 H Pulse Rate [Radial] 88 Respiratory Rate 18 Blood Pressure 134/93 H 111/72 Blood Pressure [Right Arm] 134/104 H Blood Pressure Mean [Right Arm] 114 Blood Pressure Position Blood Pressure Position [Right Arm] Sitting 02 Sat by Pulse Oximetry 98 90 L 93 L Oxygen Delivery Method Nasal Cannula Nasal Cannula Nasal Cannula Oxygen Flow Rate (LPM) 2.5 4 4 07/25/25 03:00 07/25/25 03:31 07/25/25 04:30 Temperature Temperature Source Pulse Rate 76 82 Pulse Rate [Radial] Respiratory Rate Blood Pressure 112/58 L 153/105 H 138/97 H Blood Pressure [Right Arm] Blood Pressure Mean [Right Arm] Blood Pressure Position Blood Pressure Position [Right Arm] 02 Sat by Pulse Oximetry 90 L 95 98 Oxygen Delivery Method Nasal Cannula Oxygen Flow Rate (LPM) 4 07/25/25 05:04 07/25/25 05:45 Temperature 98.4 F Temperature Source Oral Pulse Rate 111 H 106 H Pulse Rate [Radial] Respiratory Rate 16 Blood Pressure 150/93 H 127/97 H Blood Pressure [Right Arm] Blood Pressure Mean [Right Arm] Blood Pressure Position Sitting Blood Pressure Position [Right Arm] 02 Sat by Pulse Oximetry 90 L Oxygen Delivery Method Nasal Cannula Nasal Cannula Oxygen Flow Rate (LPM) 4 4 Lab Data Lab results reviewed: Yes I reviewed the patient's lab results. Lab Results 07/25/25 00:10: Sodium 141, Potassium 4.0, Chloride 101, Carbon Dioxide 30, Anion Gap 14.0, BUN 10, Creatinine 1.10 H, Estimated Creat Clear 70, Estimated GFR 50 L, Est GFR ( Amer) 61, Glucose 91, Calcium 8.3 L, Phosphorus 4.3, Magnesium 1.2 L, Total Bilirubin 0.8, AST 23, ALT 46, Alkaline Phosphatase 95, Troponin I < 0.01, Total Protein 6.9, Albumin 4.0, Globulin 2.9, Albumin/Globulin Ratio 1.4, Lipase 138, Urine Color Sharkey, Urine Appearance Cloudy, Urine pH 6.0, Ur Specific Zirconia >= 1.030, Urine Protein Trace, Urine Glucose (UA) Negative, Urine Ketones Negative, Urine Blood 1+ A, Urine Nitrate Positive A, Urine Bilirubin Negative, Urine Urobilinogen 0.2, Ur Leukocyte Esterase Negative, Urine RBC Tntc, Urine Bacteria 4+ 07/25/25 00:23: WBC 8.8, RBC 4.20, Hgb 12.5, Hct 40.1, MCV 95.5, MCH 29.8, MCHC 31.2 L, RDW 15.8, Plt Count 330, MPV 9.9, Neut % (Auto) 56.2, Lymph % (Auto) 33.1, Towner % (Auto) 7.5, Eos % (Auto) 2.4, Baso % (Auto) 0.5, Neut # (Auto) 5.0, Lymph # (Auto) 2.9, Towner # (Auto) 0.7, Eos # (Auto) 0.2, Baso # (Auto) 0.0, Lactate 1.7 07/25/25 00:23 07/25/25 00:10 Orders (Tests/Meds): ED MEDICATIONS Generic Name Dose Route Start Last Admin Trade Name Freq PRN Reason Stop Dose Admin Acetaminophen 650 mg 07/25/25 05:27 Acetaminophen 325mg Tab PO 08/24/25 05:26 Q4HP PRN Fever or Mild Pain (1-3) Hydromorphone HCl 0.5 mg 07/25/25 05:27 Hydromorphone 2mg/Ml Syringe IV 08/24/25 05:26 Q4HP PRN Severe Pain (7-10) Meropenem 1 gm/ Sodium 100 mls @ 100 mls/hr 07/25/25 05:30 Chloride IV 08/04/25 05:29 Q12H [facility] Insulin Human Lispro 0 unit 07/25/25 06:00 Humalog 100 Units/Ml 10ml Vial (Ssi) SUBCUT 08/24/25 05:59 ACHS [facility] Protocol Ondansetron HCl 4 mg 07/25/25 05:27 Ondansetron 4mg/2ml Vial IV 08/24/25 05:26 Q8HP PRN Nausea Sodium Chloride 10 ml 07/25/25 01:51 07/25/25 01:52 Sodium Chloride 0.9% 10ml Syr (Rad Only) IV 08/24/25 01:50 10 ml NEEDED PRN Administration Maintain IV Site Discontinued Medications Generic Name Dose Route Start Last Admin Trade Name Freq PRN Reason Stop Dose Admin Acetaminophen 1,000 mg 07/25/25 00:16 07/25/25 00:33 Acetaminophen 1,000mg/100ml Vial IV 07/25/25 00:17 1,000 mg ONCE ONE Administration Hydromorphone HCl 1 mg 07/25/25 00:16 07/25/25 00:34 Hydromorphone 2mg/Ml Syringe IV 07/25/25 00:17 1 mg ONCE ONE Administration Hydromorphone HCl 0.25 mg 07/25/25 05:19 07/25/25 05:30 Hydromorphone 2mg/Ml Syringe IV 07/25/25 05:20 0.25 mg ONCE ONE Administration Sodium Chloride 1,000 mls @ 999 mls/hr 07/25/25 00:30 07/25/25 02:32 Sod Chlor 0.9% 1000ml Bag IV 07/25/25 01:30 Infused .Q1H1M CRISTOPHER Infusion Magnesium Sulfate 2 gm in 50 mls @ 150 mls/hr 07/25/25 01:08 07/25/25 01:57 Magnesium Sulfate 2gm/50ml Premix IV 07/25/25 01:27 Infused ONCE ONE Infusion Magnesium Sulfate 2 gm in 50 mls @ 150 mls/hr 07/25/25 01:08 07/25/25 01:58 Magnesium Sulfate 2gm/50ml Premix IV 07/25/25 01:27 Infused ONCE ONE Infusion Ceftriaxone Sodium 1 gm/ 50 mls @ 100 mls/hr 07/25/25 01:18 07/25/25 02:57 Sodium Chloride IV 07/25/25 01:47 Infused ONCE ONE Infusion Iopamidol 75 ml 07/25/25 01:51 07/25/25 01:52 Iopamidol-370 (76%);100ml Bottle IV 07/25/25 01:52 75 ml ONCE ONE Administration Ondansetron HCl 4 mg 07/25/25 00:16 07/25/25 00:33 Ondansetron 4mg/2ml Vial IV 07/25/25 00:17 4 mg ONCE ONE Administration ORDERS Category Date Time Status CT abdomen pelvis w con Stat Cat Scan 07/25/25 00:20 Completed Basic Metabolic Panel [facility] Lab 07/26/25 06:00 Ordered CBC w/Auto Diff [Complete Blood Count Auto Diff] Stat Lab 07/25/25 00:23 Completed CMP [Comprehensive Metabolic Panel] Stat Lab 07/25/25 00:10 Completed Complete Blood Count Auto Diff [facility] Lab 07/26/25 06:00 Ordered Lactic Acid Stat Lab 07/25/25 00:23 Completed Lipase Stat Lab 07/25/25 00:10 Completed Magnesium Stat Lab 07/25/25 00:10 Completed Phosphorous Stat Lab 07/25/25 00:10 Completed Trop I [Troponin I] Stat Lab 07/25/25 00:10 Completed UA [Urinalysis and Microscopic] Stat Lab 07/25/25 00:10 Completed Blood Culture Stat Micro 07/25/25 02:09 Received Urine Culture Stat Micro 07/25/25 00:10 Received Medical Decision Narrative: 64-year-old female with history of chronic pancreatitis, COPD on home O2 at baseline, hypertension, hyperlipidemia presents for 2 days of severe epigastric pain, nausea vomiting, poor p.o. intake. History was obtained via interactive discussion with patient. On arrival, patient is [afebrile, hemodynamically stable, satting appropriately, alert, oriented x4, GCS 15], moving all extremities spontaneously. Full physical exam performed and significant for epigastric tenderness Differential includes but is not limited to chronic pancreatitis, necrotizing pancreatitis, pseudocyst, gastritis, gastroenteritis, ACS, malingering. Patient was given 1 L IV fluid bolus, Dilaudid, Zofran for symptomatic management and correction of underlying abnormalities. Workup initiated including CBC CMP lipase mag Phos UA CT abdomen pelvis IV contrast. On re-evaluation, patient sleeping comfortably Laboratory workup independently interpreted by me and significant for negative lipase, no significant leukocytosis, creatinine near baseline, hypomagnesemia noted, negative initial troponin (1 troponin will suffice given duration of symptoms and low concern for cardiac pathology). Imaging independently interpreted by me and significant for no evidence of acute pancreatitis, bowel obstruction or other acute pathology. See radiology read for full review of final results. EKG independently interpreted by me and significant for sinus rhythm, ventricular rate of 83, occasional supraventricular richer complexes noted. No ST changes. 0117. Patient is placed in ED observation status for assessment of pain, necessity of IV pain medications, p.o. challenge. After period of observation of several hours, patient is awake, interactive, complaining of severe pain. She attempted to drink some liquids and eat crackers but was unsuccessful. Given this, patient was deemed appropriate for admission for chronic pancreatitis and UTI. Procedures Risk/Benefits of Procedure(s) Were Explained: Yes Critical Care Critical Care Time Critical Care Time: No
--- NOTE | 2025-07-25 00:20 | CT_ITS ---
PROCEDURE INFORMATION: Exam: CT Abdomen And Pelvis With Contrast Exam date and time: 07/25/2025 1:37 AM Age: 64 years old Clinical indication: Abdominal pain; Additional info: Chronic pancreatitis TECHNIQUE: Imaging protocol: Computed tomography of the abdomen and pelvis with contrast. Radiation optimization: All CT scans at this facility use at least one of these dose optimization techniques: automated exposure control; mA and/or kV adjustment per patient size (includes targeted exams where dose is matched to clinical indication); or iterative reconstruction. Contrast material: ISOVUE; Contrast volume: 75 ml; Contrast route: IV; COMPARISON: CT ABDOMEN PELVIS W CON 06/27/2025 10:13 PM FINDINGS: Liver: Normal. No mass. Gallbladder and biliary ducts: Cholecystectomy. Pancreas: Normal. No ductal dilation. Spleen: Normal. No splenomegaly. Adrenal glands: Normal. No mass. Kidneys and ureters: Normal. No hydronephrosis. Stomach and bowel: Diverticulosis colon. Appendix: No evidence of appendicitis. Intraperitoneal space: Unremarkable. No free air. No significant fluid collection. Vasculature: Unremarkable. No abdominal aortic aneurysm. Lymph nodes: Unremarkable. No enlarged lymph nodes. Urinary bladder: Unremarkable as visualized. Reproductive: Unremarkable as visualized. Bones/joints: Atherosclerosis particularly of the left common iliac origin. Soft tissues: Unremarkable. IMPRESSION: No acute findings.
--- NOTE | 2025-07-25 00:24 | ECG_ITS ---
APPROVED REPORT Exam: Resting ECG HR:83 bpm ECG Measurements Heart Rate 83 AXES TN 200 P 80 QRSd 90 QRS 35 QT 387 T 47 QTc 427 Conclusion SINUS RHYTHM WITH FREQUENT SUPRAVENTRICULAR PREMATURE COMPLEXES ABNORMAL RHYTHM ECG UNCONFIRMED REPORT Electronically signed by : KIN DILLARD, 07/25/2025 23:07:26
[2025-07-25 00:28] LABS: Microscopic, Urine URINE MICROSCOPIC (MICROSCOPIC)
--- OUTSIDE RECORDS SUMMARY | 2025-07-25 00:30 | XMS_ITS | Clinical Summary ---
Author Organization [facility] Address [address] [place] [address] Phone Care Team Providers Care Municipal Firefighter Name Role Phone Sami Rasheed MD Unavailable [ ] Conditions or Problems Problem Name Problem Code Onset Date Status Entry Date Provider Comment Standard Description Annotate Chronic mastoiditis, bilateral 31302852 (SNOMED CT) Active Courtney Gordon Chronic mastoiditis Acute mastoiditis, bilateral, without complications H70.003 (ICD-10-CM ) Active Courtney Gordon Acute mastoiditis without complications , bilateral Benign Essential Hypertension 24938644 (SNOMED CT) Active Courtney Gordon Benign hypertension Medications Medication Instructions Start Date Stop Date Generic Name ND Provider MEDROL 4 MG TBPK tapering METHYLPREDNISOLONE [id number] Jorge Mckeon ACIDOPHILUS CAPS LACTOBACILLUS 11312234506 Jorge Mckeon CEFDINIR 300 MG CAPS twice daily CEFDINIR [id number] Jorge Mckeon PERCOCET 5-325 MG TABS 1-2 tablets every 4 hours as needed OXYCODONE-ACETAMINOP HEN [id number] Jorge Mckeon Medications Administered No information available. [...]
--- OUTSIDE RECORDS SUMMARY | 2025-07-25 00:31 | XMS_ITS | Clinical Summary ---
Author Organization [facility] Address [address] [id number] Care Team Providers Care Round Cutter Operator Name Role Phone Juan C Colón MD Primary Care Provider [phone] Allergies Active Allergy Reactions Criticality Noted Date [...] MG/0.1ML nasal spray Call 911. Don't prime. Commerce in 1 nostril for overdose. Repeat in 2-3 minutes in other nostril if no or minimal breathing/respon siveness. 2 each 3 Active sodium-potassiu m-magnesium sulfates (Suprep Bowel Prep Kit) 17.5-3.13-1.6 GM/177ML solution oral solution Take 2 bottles by mouth Take As Directed. Do not eat the day before your procedure. If you didn't receive instructions call [phone]. 354 mL 4 Active promethazine (PHENERGAN) 25 [...] or training? Not on file Preferred Language Citizen Of [place] 02/17/2024 Comments No Sex and Gender Information [...] Description 08/18/2025 1:30 PM EDT Office Visit [facility] [address] [facility] [address] [place] [address] Kerry Monae APRN [address] [facility] [address] [place] [address] Health Maintenance Due Date Last Done Comments [...] Completed 04/11/2022 Medical Devices Implanted Type Area Insulation Helper Device Identifier Shelf Expiration Date Model / [...] PM EDT) Fecal Occult Blood Negative Negative [facility] Lot Number [id number] [facility] Expiration Date 06/21 [facility] DEVELOPER LOT NUMBER [id number] [facility] DEVELOPER EXPIRATION DATE 05/23 [facility] Positive Control Positive Positive [facility] Negative Control Negative Negative [facility] Stool Specimen from rectum / Unknown 07/29/2020 7:04 PM EDT us Cheko Galdamez MD POINT OF CARE TEST ORDERABLES Final Result [facility]
[address] [place] [address], * (ABNORMAL) Hemoglobin A1c (08/01/2017 5:10 AM EDT) Hemoglobin A1C 6.30(H) 4.80 - 5.60 % 08/01/2017 8:00 AM EDT [facility] Blood 08/01/2017 5:10 AM EDT 08/01/2017 5:26 AM EDT Narrative [facility] - 08/01/2017 8:00 AM EDT The [place] [employer] recommends maintenance of Hemoglobin A1C at 7.0% or lower. Goals for Hemoglobin A1C reduction may need to be modified if hypoglycemia is a problem. Lili Mandujano II, DO LAB BLOOD ORDERABLES Elodia agustin Result [facility]
[address] [place] [address], from Last 3 Months or Most Recently Relevant to Health Maintenance Insurance [place] [address] [place] [address] MEDICARE ADVANTAGE [employer] [facility] HMO Advance Directives * CPR (Attempt to Resuscitate) [...] 9:25 AM 08/04/2017 3:38 PM Care Teams Round Cutter Operator Relationship Specialty Start Date End Date Juan C Colón MD [address] [place] [id number] PCP - General Family Medicine 04/30/23
--- OUTSIDE RECORDS SUMMARY | 2025-07-25 00:31 | XMS_ITS | Patient Health Record ---
Author Organization [facility] Address [address] [place] [address] Care Team Providers Care Bucket Hooker Name Role Phone ANGELINA BOWIE Primary Care Provider Reason For Referral No Information Plan Of Treatment No Information
--- OUTSIDE RECORDS SUMMARY | 2025-07-25 00:31 | XMS_ITS | Clinical Summary ---
Author Organization [facility] Address [address] [place] [address] Phone Care Team Providers Care Supervisor Publications Production Name Role Phone Unavailable Primary Care Provider [...] C Mcmanus MD CHEMISTRY ORDERABLES Edit ed [facility] [address] [place] [address] from Last 3 Months or Most Recently Relevant to Health Maintenance Insurance MEDICARE [place] PART A AND B MEDICAID [place] Member Subscriber Plan / Payer (Ef fective 2011-Present) Name:Linda Arteaga Relation to Subscriber:Self Name:Linda Arteaga Payer ID:Not on file Group ID:Not on file Type:Not on file Address: [address] [place] [id number] [place] [address] [place]
--- OUTSIDE RECORDS SUMMARY | 2025-07-25 00:31 | XMS_ITS | Clinical Summary ---
Author Organization [facility] Address [address] [place] [address] Care Team Providers Care Professor Of Fine Art Name Role Phone Oskar Donovan MD Primary Care Provider [phone] Medications No known medications Active Problems No [...] 07/29/2021 07/29/2020, 07/24/2020 [facility]-Colorectal Cancer Screening 07/29/2021 [id number] Vaccine (3 - season) 2024 10/09/2021, 02/02/2021 [...] ORDERABLES Final Resul t Performing Organization Address City/[facility] Co de Phone Number HEALTHCARE [facility] [address] [place] [address] * [place] Hepatitis C Antibody (04/11/2022 6:36 PM EDT) Hepatitis C Antibody Negative Negative 04/11/2022 9:56 PM EDT [facility] Blood Venous blood specimen / Unknown Venipuncture / Unknown 04/11/2022 6:36 PM EDT 04/11/2022 6:43 PM EDT Leland Miller MD LAB BLOOD ORDERABLES Final Resul t Performing Organization Address City/[facility] Co de Phone Number HEALTH[facility]ARE [facility] [address] [place] [address] from Last 3 Months or Most Recently Relevant to Health Maintenance Insurance [facility] MEDICARE Care Teams Professor Of Fine Art Relationship Specialty Start Date End Date Oskar Donovan MD [address] [place] [address] PCP - General 04/13/21
[2025-07-25] MEDS: ACETAMINOPHEN 1,000MG/100ML VIAL 1000 MG IV (00:33)
[2025-07-25] MEDS: 0.9 % SODIUM CHLORIDE 1000ML 1,000 ML 999 ML IV (00:33)
[2025-07-25] MEDS: ONDANSETRON 4MG/2ML VIAL 4 MG IV (00:33)
[2025-07-25 00:34] LABS: Hematocrit 40.1 % (37.0-47.0); Hemoglobin 12.5 g/dL (12.2-16.2); Immature Granulocytes % 0.3 %; Mean Corpuscular HGB Conc 31.2 g/dL (31.8-35.4); Mean Corpuscular Hemoglobin 29.8 pg (27.0-31.2); Mean Corpuscular Volume 95.5 fl (81-99); Nucleated Red Blood Cells % 0 %; Platelet Count 330 K/mm3 (142-424); Red Blood Count 4.20 M/mm3 (4.20-5.40); Red Cell Distribution Width-SD 55.3 fL; White Blood Count 8.8 K/mm3 (4.8-10.8)
[2025-07-25] MEDS: HYDROMORPHONE 2MG/ML SYRINGE 1 MG IV (00:34)
[2025-07-25 00:39] LABS: Alanine Aminotransferase 46 U/L (12-78); Albumin Level 4.0 g/dl (3.5-5.0); Albumin/Globulin Ratio 1.4 (1.1-1.8); Alkaline Phosphatase 95 U/L (38-126); Anion Gap 14.0 mEq/L (5-15); Aspartate Amino Transferase 23 U/L (14-36); Bilirubin,Total 0.8 mg/dl (0.2-1.3); Blood Urea Nitrogen 10 mg/dl (7-17); Calcium 8.3 mg/dl (8.4-10.2); Carbon Dioxide 30 mmol/L (22.0-30.0); Chloride 101 mmol/L (98-107); Creatinine Clearance Estimated 70 mL/min (50-200); Creatinine,Serum 1.10 mg/dl (0.52-1.04); Estimated Glomerular Filt Rate 50 ml/min (>60); GFR (African American) 61 ML/MIN (>60); Globulin 2.9 g/dL (1.3-3.2); Glucose 91 mg/dl (74-100); Lipase 138 U/L (23-300); Magnesium 1.2 mg/dl (1.6-2.3); Phosphorous 4.3 mg/dl (2.5-4.5); Potassium 4.0 mmoL/L (3.5-5.1); Sodium 141 mmol/L (136-145); Total Protein,Serum 6.9 g/dl (6.3-8.2)
[2025-07-25 00:41] LABS: Bilirubin,Urine Negative (Negative); Color,Urine ORANGE (Yellow); Glucose,Urine (UA) Negative (Negative); Ketones,Urine Negative (Negative); Leukocyte Esterase,Urine Negative (Negative); PH,Urine 6.0 (5.0-8.5); Protein,Urine TRACE (Negative); Specific Gravity, Urine >= 1.030 (1.005-1.030); Urobilinogen,Urine 0.2 EU/dl (0.2)
--- NOTE | 2025-07-25 00:49 | PC.NURSE ---
Pt ask to speak with doctor to report I'm infested with bed bugs and cock roaches Pt to be de-con according to hospital policy.
[2025-07-25 00:56] LABS: Bacteria,Urine 4+ /lpf; RBC,Urine TNTC #/hpf (0-3)
[2025-07-25 00:57] LABS: Troponin I < 0.01 ng/ml (0.00-0.034)
[2025-07-25] MEDS: MAGNESIUM SULFATE IN WATER 2 GM/50 ML PIGGYBACK IV ×2 (01:23→01:24)
--- NOTE | 2025-07-25 01:33 | PC.NURSE ---
radiology contacted and made aware that patient is ready to go to scan at this time.
[2025-07-25] MEDS: SODIUM CHLORIDE 0.9% 10ML SYR (RAD ONLY) 10 ML IV (01:52)
[2025-07-25] MEDS: IOPAMIDOL-370 (76%);100ML BOTTLE 75 ML IV (01:52)
[2025-07-25] MEDS: CEFTRIAXONE 1 GM 1 GM in 0.9 % SODIUM CHLORIDE 50 ML IV (02:11)
--- NOTE | 2025-07-25 05:17 | PC.NURSE ---
ED provider at the bedside updating pt on POC
[2025-07-25] MEDS: HYDROMORPHONE 2MG/ML SYRINGE 0.25 MG IV (05:30)
--- NOTE | 2025-07-25 05:41 | PC.NURSE ---
Report given to LAITH Phipps
--- NOTE | 2025-07-25 05:50 | P.HP_ITS ---
<Statement entered by Alan Corcoran MD - 07/27/25 15:39> Personally evaluated patient and agree with the plan of care as outlined by the REMITTANCE CLERK. History of Present Illness *Admission Date: 07/25/25 *Reason for visit:: Abdominal pain *History of present illness: This is a 64-year-old female with a past medical history of chronic pancreatitis, COPD on nasal cannula at baseline, hypertension, diabetes who presents emergency department today with complaints of epigastric pain nausea vomiting the last 2 days.? She reports that she has had difficulty keeping things down recently.? States that she thinks it is related to her chronic pancreatitis.? States that she feels so poorly that she has not been able to get up and get around.? Denies any fever.? Denies any urinary symptoms.? She does endorse infestation of cockroaches and bedbugs. Emergency department workup notable for acute cystitis with nitrite positive, leuk esterase, bacteria.? CT abdomen pelvis negative.? Labs otherwise were unremarkable.? Patient states that she feels poorly enough that she thinks that she needs to be admitted.? Given this shared decision making with the ER provider and patient it was felt she would benefit from hospitalization. [facility] Disclaimer: The information contained in this section may have been updated after the patient was seen, as this information can be updated by other users. Medical History Internal hemorrhoid, bleeding Multiple falls Pancreatic divisum Afib Esophageal dilatation Multiple lung nodules on CT Pulmonary emphysema Hypocalcemia Hypokalemia Acidosis, lactic GI bleed Noncompliance with medication regimen Tobacco dependence in remission Pancreas divisum of [place] pancreas Encounter for pre-operative cardiovascular clearance Orthopnea CHF (congestive heart failure) Pancreatitis Nausea vomiting and diarrhea Exhausted vascular access Rib fractures Chronic hypoxemic respiratory failure Coronary artery disease COPD (chronic obstructive pulmonary disease) HLD (hyperlipidemia) Diabetes Anxiety and depression TIA (transient ischemic attack) History of stroke History of multiple cerebrovascular accidents (CVAs) History of class III angina pectoris Typical angina Dyspnea History of pancreatitis History of CVA (cerebrovascular accident) Surgical History History of banding of hemorrhoid History of biliary duct stent placement History of hysterectomy History of cholecystectomy History of coronary artery stent placement Family History Other Family history of cancer Family history of diabetes mellitus Social History Smoking Status: Current every day smoker tobacco type: e-cigarettes years smoked: 45 how long ago did patient quit smokin years ago quit status: quit date established second hand exposure: No alcohol intake: never counseling provided: none substance use type: marijuana and crack/cocaine current occupational status: other Travel in the last 8 weeks?: None household members: significant other housing: house marital status: number of children: 2 current occupational exposures/hazards: No caffeine: Yes Other Medical History Have you received the Flu Vaccine for this season: No Have you received the Pneumonia Vaccine: No Review of Systems Review of Systems Review of systems:: pertinent systems reviewed and negative unless documented below Review of systems (narrative): Negative except for HPI Meds Home Medications and Allergies Home Medications ?Medication ?Instructions ?Recorded ?Confirmed ?Type atorvastatin 40 mg tablet 40 mg PO HS #90 tabs 5 06/27/25 Rx levothyroxine 100 mcg tablet 100 mcg PO DAILYDM #90 ta bs 02/15/25 06/27/25 Rx furosemide 20 mg tablet 40 mg (2 x 20 mg) PO DAILY 3 0 days 02/19/25 06/27/25 Rx #60 tabs pantoprazole 40 mg tablet,delayed 40 mg PO HS 30 days #30 tabs 04/06/25 06/27/25 Rx release potassium chloride 10 mEq 10 meq PO DAILY #90 tabs 06/27/25 Rx tablet,extended release duloxetine 60 mg capsule,delayed 60 mg PO BID 90 days #180 caps 04/18/25 06/27/25 Rx release metformin 1,000 mg tablet 1,000 mg PO BIDWMEAL #60 tab s 04/18/25 06/27/25 Rx rivaroxaban 20 mg tablet (Xarelto) 20 mg PO QPMWITHMEA L 05/12/25 06/27/25 History hydrocortisone acetate 25 mg 25 mg CA DAILY PRN hemorr hoids #24 05/25/25 06/27/25 Rx rectal suppository (Anusol-HC) ea ondansetron 4 mg disintegrating 4 mg PO Q8H PRN nausea and 05/25/25 06/27/25 Rx tablet vomiting 4 days #12 tabs polyethylene glycol 3350 17 17 g PO DAILY PRN constipt ation 05/25/25 06/27/25 Rx gram/dose oral powder (Miralax) #510 grams cholecalciferol (vitamin D3) 1,250 1,250 mcg PO WEEKLY 05/26/25 06/27/25 History mcg (50,000 unit) capsule gabapentin 600 mg tablet 600 mg PO BID 05/26/2506/27 History magnesium oxide 400 mg (241.3 mg 400 mg PO BID 5 06/27/25 History magnesium) tablet ropinirole 0.25 mg tablet 0.25 mg PO HS 05/26/2506/27 History quetiapine 25 mg tablet 25 mg PO DAILY 06/09/2506/01 History mupirocin 2 % topical ointment 1 applic topical TID #2 2 grams 06/23/25 06/27/25 Rx promethazine 12.5 mg tablet 12.5 mg PO Q6HP PRN Nausea And 06/23/25 06/27/25 Rx Vomiting #60 tabs verapamil 120 mg tablet,extended 120 mg PO BID 5 06/27/25 History release oxycodone 5 mg tablet 5 mg PO Q8H PRN pain #12 tab s 06/27/25 Rx sulfamethoxazole 800 1 tab PO BID 7 days #14 tabs 06/27/25 Rx mg-trimethoprim 160 mg tablet ferrous sulfate 325 mg (65 mg 325 mg PO BID #60 tabs 0 07/08/25 Rx iron) tablet trazodone 100 mg tablet 100 mg PO HS #90 tabs Rx montelukast 10 mg tablet 10 mg PO HS #30 tabs 5 Rx ranolazine 500 mg tablet,extended 500 mg PO BID 30 day s #60 tabs 07/18/25 Rx release,12 hr alprazolam 1 mg tablet 1 mg PO BID Anxiety #60 tabs 07/22/25 Rx New Prescriptions to Start Prescriptions: Allergies Allergy/AdvReac Type Severity Reaction Status Date / Time codeine (CODEINE) Allergy Intermediate N/V Verified 06/23/25 13:14 ketorolac (KETOROLAC) Allergy Intermediate Hives Verified 06/23/25 13:14 meperidine (MEPERIDINE) Allergy Intermediate Hives Verified 06/23/25 13:14 tramadol (TRAMADOL) Allergy Intermediate Hives Verified 06/23/25 13:14 ciprofloxacin AdvReac Severe Interacts Verified 06/23/25 13:14 with cymbalta Exam Data for Last 24 hours Vital signs and Labs for Last 24 Hours: Temp Pulse Resp BP Pulse Ox O2 Del Method O2 Flow Rate 98.4 F 106 H 16 127/97 H 90 L Nasal Cannula 4 07/25/25 05:45 07/25/25 05:45 07/25/25 05:45 07/25/25 05:45 07/25/25 05:04 07/25/25 05:45 07/25/25 05:45 Laboratory Results - last 24 hr 07/25/25 00:10: Sodium 141, Potassium 4.0, Chloride 101, Carbon Dioxide 30, Anion Gap 14.0, BUN 10, Creatinine 1.10 H, Estimated Creat Clear 70, Estimated GFR 50 L, Est GFR ( Amer) 61, Glucose 91, Calcium 8.3 L, Phosphorus 4.3, Magnesium 1.2 L, Total Bilirubin 0.8, AST 23, ALT 46, Alkaline Phosphatase 95, Troponin I < 0.01, Total Protein 6.9, Albumin 4.0, Globulin 2.9, Albumin/Globulin Ratio 1.4, Lipase 138, Urine Color [place], Urine Appearance Cloudy, Urine pH 6.0, Ur Specific [place] >= 1.030, Urine Protein Trace, Urine Glucose (UA) Negative, Urine Ketones Negative, Urine Blood 1+ A, Urine Nitrate Positive A, Urine Bilirubin Negative, Urine Urobilinogen 0.2, Ur Leukocyte Esterase Negative, Urine RBC Tntc, Urine Bacteria 4+ 07/25/25 00:23: WBC 8.8, RBC 4.20, Hgb 12.5, Hct 40.1, MCV 95.5, MCH 29.8, MCHC 31.2 L, RDW 15.8, Plt Count 330, MPV 9.9, Neut % (Auto) 56.2, Lymph % (Auto) 33.1, [place] % (Auto) 7.5, Eos % (Auto) 2.4, Baso % (Auto) 0.5, Neut # (Auto) 5.0, Lymph # (Auto) 2.9, [place] # (Auto) 0.7, Eos # (Auto) 0.2, Baso # (Auto) 0.0, Lactate 1.7 I & O for Last 24 hours: Intake & Output 07/22/25 07/23/25 07/24/25 07/25/25 23:59 23:59 23:59 23:59 Intake Total 1150 / 1150 Balance 1150 / 1150 Weight 86.183 kg Constitutional Constitutional: no acute distress *Routine HEENT Exam Head: Present normocephalic and atraumatic Eye: Present EOMI and PERRL ENT: Present mucous membranes moist and oropharynx clear *Routine Neck Exam Neck: Present supple and full ROM *Routine Respiratory Exam Respiratory: Present wheezes (expiratory), normal respiratory effort and symmetric chest movement; Absent respiratory distress *Routine Cardiovascular Exam Cardiovascular: Present RRR, Normal S1 and Normal S2 *Routine Abdominal Exam Abdominal: Present soft and normoactive bowel sounds; Absent tenderness or distended *Routine Rectal Exam Rectal:: deferred *Routine Genitalia Exam Genitalia:: deferred *Routine Extremities Exam Extremities: Present full ROM, pulses intact and normal capillary refill *Routine Skin Exam Skin: Present intact, dry and warm *Routine Neurological Exam Neurological: Present alert, oriented X3 and CN II-XII intact Assessment and Plan *Assessment and plan (1) Chronic pancreatitis: Status: Acute Category: Medical Code(s): K86.1 - Other chronic pancreatitis (2) UTI (urinary tract infection): Status: Acute Category: Medical Code(s): N39.0 - Urinary tract infection, site not specified (3) Abdominal cramping: Status: Acute Category: Medical Code(s): R10.9 - Unspecified abdominal pain (4) Hypothyroidism: Status: Acute Qualifiers: Hypothyroidism type: unspecified Qualified Code(s): E03.9 - Hypothyroidism, unspecified Category: Medical Code(s): E03.9 - Hypothyroidism, unspecified (5) PAF (paroxysmal atrial fibrillation): Status: Acute Category: Medical Code(s): I48.0 - Paroxysmal atrial fibrillation (6) Diabetes mellitus: Status: Chronic Qualifiers: Diabetes mellitus type: type 2 Diabetes mellitus fci insulin use: without ordinary seaman use Diabetes mellitus complication status: without complication Qualified Code(s): E11.9 - Type 2 diabetes mellitus without complications Category: Medical Code(s): E11.9 - Type 2 diabetes mellitus without complications Plan #Acute cystitis Prior history of ESBL organism.? Sensitive to meropenem and ertapenem.? Will initiate meropenem in the acute setting. Follow-up urine culture #Abdominal pain #Chronic pancreatitis No acute chronic pancreatitis noted on imaging. Lipase negative. Patient does have chronic pancreatitis from pancreatic divisum. Continue multimodal pain medication and antiemetics as needed #DM 2 Hold metformin, initiate insulin via sliding scale #Paroxysmal A-fib Continue metoprolol and Xarelto Continue verapamil #COPD Not in exacerbation at this time.? Continue patient's home oxygen. Bronchodilators as needed #Hypertension #Hyperlipidemia #CAD Continue home medications once reconciled #Hypothyroidism Continue levothyroxine
--- NOTE | 2025-07-25 05:55 | PC.NURSE ---
0541recieved report from CABLE STRANDERLAITH Martin. Ms. Arteaga is coming to the Floor via stretcher. Right Chest port is accessed. Pt has just had her teeth pulled. L upper Quadrant pain is the Reason for Admission. Desire Triplett RN.
[2025-07-25 06:29] LABS: POC Glucose,Bedside 95 (70-110)
[2025-07-25] MEDS: HYDROMORPHONE 2MG/ML SYRINGE 0.5 MG IV (08:41)
--- NOTE | 2025-07-25 10:05 | HMH.PTEV ---
Physical Therapy Evaluation Rehab PT IP Evaluation Start: 07/25/25 06:48 Freq: ONCE Status: Active Protocol: Document 07/25/25 09:53 ANNALISE (Rec: 07/25/25 10:03 ANNALISE [id number]) Subjective/History History History Per H&P: This is a 64-year-old female with a past medical history of chronic pancreatitis, COPD on nasal cannula at baseline, hypertension, diabetes who presents emergency department today with complaints of epigastric pain nausea vomiting the last 2 days.? She reports that she has had difficulty keeping things down recently.? States that she thinks it is related to her chronic pancreatitis.? States that she feels so poorly that she has not been able to get up and get around.? Denies any fever.? Denies any urinary symptoms.? She does endorse infestation of cockroaches and bedbugs. Emergency department workup notable for acute cystitis with nitrite positive, leuk esterase, bacteria.? CT abdomen pelvis negative.? Labs otherwise were unremarkable.? Patient states that she feels poorly enough that she thinks that she needs to be admitted.? Given this shared decision making with the ER provider and patient it was felt she would benefit from hospitalization. Subjective Subjective Pt lethargic throughout subjective hx taking. Pt reports she lives with her boyfriend in a single- story home without stairs to enter. Pt reports she uses a RW. [facility] How much help from another person do you currently need... Turning from your A little back to your side while in a flat bed without using bedrails? Moving from lying on A little back to sitting on the side of a flat bed without using bedrails? Moving to and from a A little bed to a chair ( including a wheelchair)? Standing up from a A little chair using your arms? (e.g., wheelchair, bedside chair) Walking in hospital A little room? Climbing 3-5 steps A little with a railing? Mobility Score 18 Mobility Level [facility] Mobility 6 Walk 10 steps or more Mobility Calculator Rehab PT IP Eval Objective Appearance Patient Behavior Appropriate,Cooperative Patient Orientation Person Difficulty following mild instructions Speech Pattern Clear Ambulation Patient Able to Yes Ambulate Ambulation Observation IP General Gait Wide Based Gait Pattern Observation Ambulation Distance 20 (feet) Ambulation Assistive Rolling Walker Device Ambulation Ability Minimal x 1 (25% assist) Balance Ability to Arise Able, uses arms to help Sitting Balance Steady, safe Standing Balance Unsteady Transfers Bed Transfer Ability Supervision/Stand by Sit to Stand Bed Contact Guard/Hand Hold Transfer Ability Rehab PT IP prob,goals,plan Problems Date of Evaluation: 07/25/25 PT IP Problems Bed Mobility,Transfers,Gait,Balance,Self care,Safety Rehab Potential Rehab Potential Good Plan PT Intervention Plan Bed Mobility,Transfers,Gait,Balance,Self care,Safety, Therapeutic Exercise Other Intervention 1-2 times Plan PT Plan Frequency Daily Duration LOS Discharge Goals Bed Transfer Ability Independent Sit to Stand Chair Independent Transfer Ability Ambulation Assistive Rolling Walker Device Ambulation Distance 10 (feet) Discharge Plan PT Discharge Plan Mobility likely effected by pt's current cognitive state. Pt was lethargic. PT recommending short-term rehabilitation stay upon d/c from [facility]. However, if pt's mobility improves while at [facility], pt may be appropriate to d/c home with OP PT. Pt would benefit from skilled PT while at [facility] to prevent further functional decline and maximize safety with mobility. Eval Complexity Eval Charge Codes 57275 - Moderate Complexity PHYSICIAN CERTIFICATION: I certify the specified therapy services for Linad Arteaga are required, authorized, and reviewed every 30 days.
[2025-07-25 10:24] LABS: Benzodiazepines Screen,Urine Positive ng/ml (<200)
[2025-07-25 10:25] LABS: Amphetamine/Metha Screen,Urine Negative ng/ml (<1000)
[2025-07-25 10:26] LABS: Barbiturates Screen,Urine Negative ng/ml (<200); Methadone Screen,Urine Negative ng/ml (<300)
[2025-07-25 10:28] LABS: Opiate Screen,Urine Negative ng/ml (<300)
[2025-07-25 10:29] LABS: Phencyclidine Screen,Urine Negative ng/ml (<25)
[2025-07-25] MEDS: GABAPENTIN 600MG TABLET 600 MG PO (11:06)
[2025-07-25] MEDS: LEVOTHYROXINE 100MCG (0.1MG) TAB 100 MCG PO (11:06)
[2025-07-25] MEDS: RANOLAZINE 500MG ER TABLET 500 MG PO (11:06)
[2025-07-25] MEDS: FERROUS SULFATE 325MG TABLET 325 MG PO (11:06)
[2025-07-25] MEDS: POTASSIUM CHLORIDE 10MEQ TABLET.ER 10 MEQ PO (11:06)
[2025-07-25] MEDS: FUROSEMIDE 20MG TABLET 20 MG PO (11:06)
[2025-07-25] MEDS: LIPASE/PROTEASE/AMYLASE 1 EACH CAPSULE.DR 2 EACH PO ×2 (11:37→17:17)
--- NOTE | 2025-07-25 11:49 | HMH.OTEV ---
OT Inpatient Evaluation Rehab OT IP Evaluation Start: 07/25/25 07:55 Freq: ONCE Status: Active Protocol: Document 07/25/25 11:18 [facility] (Rec: 07/25/25 11:[address] [facility] [id number]) Rehab OT IP Assessment Subjective History Per H&P: This is a 64-year-old female with a past medical history of chronic pancreatitis, COPD on nasal cannula at baseline, hypertension, diabetes who presents emergency department today with complaints of epigastric pain nausea vomiting the last 2 days.? She reports that she has had difficulty keeping things down recently.? States that she thinks it is related to her chronic pancreatitis.? States that she feels so poorly that she has not been able to get up and get around.? Denies any fever.? Denies any urinary symptoms.? She does endorse infestation of cockroaches and bedbugs. Subjective Pt very lethargic throughout subjective hx taking. Pt reports she lives with her boyfriend in a single- story home without stairs to enter. Pt reports she uses a RW. She claims she is normally independent with all ADLs and IADLs. Pt also still drives Objective Patient Orientation Person,Place,Birthday Right Upper Min Limitation <25% Extremity Gross ROM Left Upper Extremity Min Limitation <25% Gross ROM Shoulder ROM Muscle Weakness Limitations Elbow ROM Muscle Weakness Limitations Wrist Limitations of Muscle Weakness Range of Motion Bed Mobility bed mobility-scooting,bed mobility - supine/sit Assist Level Contact Guard/Hand Hold Transfer Training Sit/Stand Transfer Assist Level Minimal x 1 (25% assist) Lower Body Dressing Standby Assistance Ability Rehab OT IP prob,goals,plan Problems Date of Evaluation: 07/25/25 OT IP Problems Bed Mobility,Transfers,Balance,Self care,Safety Rehab Potential Rehab Potential Good Equipment Needs Assistive Devices Rolling / Wheeled Walker Plan OT intervention Plan Bed Mobility,Transfers,Balance,Self care,Safety, Therapeutic Exercise OT Plan Frequency Daily Duration LOS Discharge Goals Bed Mobility Ability Standby Assistance Sit to Stand Chair Contact Guard/Hand Hold Transfer Ability Chair Transfer Contact Guard/Hand Hold Ability Chair Transfer Sit to/from Ambulatory Technique Chair Transfer Rolling Walker Assistive Devices Lower Body Dressing Standby Assistance Ability Upper Body Dressing Standby Assistance Ability Performing Toilet Standby Assistance Hygiene Ability Overall Commode/ Standby Assistance Toilet Transfer Ability Commode/Toilet Sit to/from Ambulatory Transfer Technique Discharge Plan OT Discharge Plan Pt will continue to be seen for OT services while at [facility]. OT recommending short-term rehabilitation stay upon d/c from [facility]. However, if pt's functional ability improves while at [facility], pt may be appropriate to d/c home with OP PT. Eval Complexity Eval Charge Codes 08113 - Moderate Complexity PHYSICIAN CERTIFICATION: I certify the specified therapy services for Linda Arteaga are required, authorized, and reviewed every 30 days.
--- NOTE | 2025-07-25 11:53 | EXP.DC.SUM ---
General Admission date:: 07/25/25 Discharge date: 07/25/25 HPI HPI HPI: This is a 64-year-old female with a past medical history of chronic pancreatitis, COPD on nasal cannula at baseline, hypertension, diabetes who presents emergency department today with complaints of epigastric pain nausea vomiting the last 2 days.? She reports that she has had difficulty keeping things down recently.? States that she thinks it is related to her chronic pancreatitis.? States that she feels so poorly that she has not been able to get up and get around.? Denies any fever.? Denies any urinary symptoms.? She does endorse infestation of cockroaches and bedbugs. Emergency department workup notable for acute cystitis with nitrite positive, leuk esterase, bacteria.? CT abdomen pelvis negative.? Labs otherwise were unremarkable.? Patient states that she feels poorly enough that she thinks that she needs to be admitted.? Given this shared decision making with the ER provider and patient it was felt she would benefit from hospitalization. Hospital Course Hospital Course Hospital Course: Ms. Arteaga is a 64-year-old woman admitted to the hospital for abdominal pain, nausea, vomiting. She has a history of chronic pancreatitis due to pancreatic divisum. Workup for pancreatitis was unremarkable, no acute on chronic pancreatitis noted on imaging, lipase WNL. She sees GI at [facility] in [place]. She states she has seen them for close to 40 years. Urine was found to be positive for urinary tract infection. Urine culture pending. Discussed with patient the need for close PCP and GI follow-up. Patient states she has chronic abdominal pain due to her pancreatitis. Discharged home on oral pain medication, follow-up with PCP made for further pain control recommendations. Initiated Creon with meals. Patient states that she has tried Creon before and it has not helped. Discussed with patient trying Creon again to see if it helps with abdominal pain. Patient able to tolerate a p.o. diet without issues. Plan of care was as follows: #Chronic pancreatitis #Abdominal pain ? Patient has long history with chronic pancreatitis, sees [facility] GI but has not followed up in well. Patient states she has tried multiple medications for her abdominal pain. Pancreatitis workup grossly normal, lipase normal, LFTs within normal limits. Patient had abdomen/pelvis CT which showed no acute findings. Abdomen/pelvis CTA in May 2025 showed no mesenteric stenosis. Patient does complain of abdominal pain, but is not tender to palpation. Patient has tolerated a p.o. diet with no nausea/vomiting. Patient states the only thing that helps her pain is Dilaudid and Percocet. Discussed with patient trying Creon before meals, and seeing her PCP after discharge for a better medication regimen. ? Patient had a EGD and colonoscopy in October 2024. Workup for celiac was negative. GI consulted, recommendations . ? Patient should continue pantoprazole 40 mg daily, Zofran 4 mg and promethazine 12.5 mg as needed for nausea at discharge. #Urinary tract infection ? Patient was found to have a urinary tract infection. Patient denies lower abdominal pain, dysuria, urinary frequency. Patient started on Levaquin 750 daily. Urine culture pending. ? Patient discharged home on for UTI. #Atrial fibrillation #Hypertension ? Patient should continue verapamil 120 mg twice daily, furosemide 20 mg daily, Xarelto 20 mg daily, ranolazine 500 mg twice daily, atorvastatin 40 mg daily #Mood disorder: Patient should continue quetiapine 25 mg daily, duloxetine 60 mg daily, Xanax 1 mg twice daily #Diabetes mellitus, type II: Continue metformin 1000 mg twice daily #Hypothyroidism: Continue levothyroxine 100 mcg daily #Chronic anemia: Continue iron 325 mg twice daily #Insomnia: Continue trazodone 100 mg at bedtime and Requip 0.25 mg at bedtime Total time spent on discharge 32 minutes in counseling, documentation, chart review, and direct care with patient. Exam Data for Last 24 hours Vital signs and Labs for Last 24 Hours: Temp Pulse Resp BP Pulse Ox O2 Del Method O2 Flow Rate 97.5 F L 94 H 21 155/88 H 92 L Nasal Cannula 4 07/25/25 07:53 07/25/25 07:53 07/25/25 07:53 07/25/25 07:53 07/25/25 07:53 07/25/25 09:00 07/25/25 09:00 Laboratory Results - last 24 hr 07/25/25 00:10: Sodium 141, Potassium 4.0, Chloride 101, Carbon Dioxide 30, Anion Gap 14.0, BUN 10, Creatinine 1.10 H, Estimated Creat Clear 70, Estimated GFR 50 L, Est GFR ( Amer) 61, Glucose 91, Calcium 8.3 L, Phosphorus 4.3, Magnesium 1.2 L, Total Bilirubin 0.8, AST 23, ALT 46, Alkaline Phosphatase 95, Troponin I < 0.01, Total Protein 6.9, Albumin 4.0, Globulin 2.9, Albumin/Globulin Ratio 1.4, Lipase 138, Urine Color [place], Urine Appearance Cloudy, Urine pH 6.0, Ur Specific [place] >= 1.030, Urine Protein Trace, Urine Glucose (UA) Negative, Urine Ketones Negative, Urine Blood 1+ A, Urine Nitrate Positive A, Urine Bilirubin Negative, Urine Urobilinogen 0.2, Ur Leukocyte Esterase Negative, Urine RBC Tntc, Urine Bacteria 4+, Urine Opiates Screen Negative, Urine Methadone Screen Negative, Ur Barbituates Screen Negative, Ur Phencyclidine Scrn Negative, Ur Amphetamines Screen Negative, U Benzodiazepines Scrn Positive H, Urine Cocaine Screen Negative, U Marijuana (THC) Screen Positive H 07/25/25 00:23: WBC 8.8, RBC 4.20, Hgb 12.5, Hct 40.1, MCV 95.5, MCH 29.8, MCHC 31.2 L, RDW 15.8, Plt Count 330, MPV 9.9, Neut % (Auto) 56.2, Lymph % (Auto) 33.1, [place] % (Auto) 7.5, Eos % (Auto) 2.4, Baso % (Auto) 0.5, Neut # (Auto) 5.0, Lymph # (Auto) 2.9, [place] # (Auto) 0.7, Eos # (Auto) 0.2, Baso # (Auto) 0.0, Lactate 1.7 07/25/25 06:19: POC Glucose 95 I & O for Last 24 hours: Intake & Output 07/22/25 07/23/25 07/24/25 07/25/25 23:59 23:59 23:59 23:59 Intake Total 1150 / 1150 Output Total 0 / 0 Balance 1150 / 1150 Weight 93.894 kg Constitutional Constitutional: no acute distress, obese and chronically ill appearing *Routine HEENT Exam Head: Present normocephalic Eye: Present PERRL ENT: Present mucous membranes moist and other *Routine Neck Exam Neck: Present supple; Absent lymphadenopathy *Routine Respiratory Exam Respiratory: Present CTA bilaterally, able to speak in complete sentences and symmetric chest movement; Absent wheezes or crackles *Routine Cardiovascular Exam Cardiovascular: Present RRR, Normal S1 and Normal S2; Absent murmur *Routine Abdominal Exam Abdominal: Present soft, normoactive bowel sounds and obese; Absent tenderness or distended *Routine Extremities Exam Extremities: Present pulses intact and normal capillary refill; Absent edema *Routine Skin Exam Skin: Present intact and dry; Absent rash *Routine Neurological Exam Neurological: Present oriented X3 and normal speech Results Data Completed and Pending Labs on day of discharge: Labs from last 24 hours 07/25/25 07/25/25 07/25/25 06:19 00:23 00:10 WBC 8.8 RBC 4.20 Hgb 12.5 Hct 40.1 MCV 95.5 MCH 29.8 MCHC 31.2 L RDW 15.8 Plt Count 330 MPV 9.9 Neut % (Auto) 56.2 Lymph % (Auto) 33.1 [place] % (Auto) 7.5 Eos % (Auto) 2.4 Baso % (Auto) 0.5 Neut # (Auto) 5.0 Lymph # (Auto) 2.9 [place] # (Auto) 0.7 Eos # (Auto) 0.2 Baso # (Auto) 0.0 Sodium 141 Potassium 4.0 Chloride 101 Carbon Dioxide 30 Anion Gap 14.0 BUN 10 Creatinine 1.10 H Estimated Creat Clear 70 Estimated GFR 50 L Est GFR ( Amer) 61 Glucose 91 POC Glucose 95 Lactate 1.7 Calcium 8.3 L Phosphorus 4.3 Magnesium 1.2 L Total Bilirubin 0.8 AST 23 ALT 46 Alkaline Phosphatase 95 Troponin I < 0.01 Total Protein 6.9 Albumin 4.0 Globulin 2.9 Albumin/Globulin Ratio 1.4 Lipase 138 Urine Color [place] Urine Appearance Cloudy Urine pH 6.0 Ur Specific [place] >= 1.030 Urine Protein Trace Urine Glucose (UA) Negative Urine Ketones Negative Urine Blood 1+ A Urine Nitrate Positive A Urine Bilirubin Negative Urine Urobilinogen 0.2 Ur Leukocyte Esterase Negative Urine RBC Tntc Urine Bacteria 4+ Urine Opiates Screen Negative Urine Methadone Screen Negative Ur Barbituates Screen Negative Ur Phencyclidine Scrn Negative Ur Amphetamines Screen Negative U Benzodiazepines Scrn Positive H Urine Cocaine Screen Negative U Marijuana (THC) Screen Positive H DS: Diagnosis Discharge Diagnosis (1) Chronic pancreatitis: Status: Acute Code(s): K86.1 - Other chronic pancreatitis (2) UTI (urinary tract infection): Status: Acute Code(s): N39.0 - Urinary tract infection, site not specified (3) Abdominal cramping: Status: Acute Code(s): R10.9 - Unspecified abdominal pain (4) Hypothyroidism: Status: Acute Code(s): E03.9 - Hypothyroidism, unspecified Qualifiers: Hypothyroidism type: unspecified Qualified Code(s): E03.9 - Hypothyroidism, unspecified (5) PAF (paroxysmal atrial fibrillation): Status: Acute Code(s): I48.0 - Paroxysmal atrial fibrillation (6) Diabetes mellitus: Status: Chronic Code(s): E11.9 - Type 2 diabetes mellitus without complications Qualifiers: Diabetes mellitus complication status: without complication Diabetes mellitus superintendent terminal insulin use: without mcfp use Diabetes mellitus type: type 2 Qualified Code(s): E11.9 - Type 2 diabetes mellitus without complications Meds Home Medications and Allergies Home Medications ?Medication ?Instructions ?Recorded ?Confirmed ?Type atorvastatin 40 mg tablet 40 mg PO HS #90 tabs 02/07/25 07/25/25 Rx pantoprazole 40 mg tablet,delayed 40 mg PO HS 30 days #30 tabs 04/06/25 07/25/25 Rx release potassium chloride 10 mEq 10 meq PO DAILY #90 tabs 04/13/25 07/25/25 Rx tablet,extended release duloxetine 60 mg capsule,delayed 60 mg PO BID 90 days #180 caps 04/18/25 07/25/25 Rx release metformin 1,000 mg tablet 1,000 mg PO BIDWMEAL #60 tabs 04/18/25 07/25/25 Rx rivaroxaban 20 mg tablet (Xarelto) 20 mg PO QPMWITHMEAL 05/12/25 07/25/25 History polyethylene glycol 3350 17 17 g PO DAILY PRN constiptation 05/25/25 07/25/25 Rx gram/dose oral powder (Miralax) #510 grams cholecalciferol (vitamin D3) 1,250 1,250 mcg PO FR 05/26/25 07/25/25 History mcg (50,000 unit) capsule gabapentin 600 mg tablet 600 mg PO BID 05/26/25 07/25/25 History magnesium oxide 400 mg (241.3 mg 400 mg PO BID 05/26/25 07/25/25 History magnesium) tablet ropinirole 0.25 mg tablet 0.25 mg PO HS 05/26/25 07/25/25 History quetiapine 25 mg tablet 25 mg PO DAILY 06/09/25 07/25/25 History promethazine 12.5 mg tablet 12.5 mg PO Q6HP PRN Nausea And 06/23/25 07/25/25 Rx Vomiting #60 tabs verapamil 120 mg tablet,extended 120 mg PO BID 06/23/25 07/25/25 History release ferrous sulfate 325 mg (65 mg 325 mg PO BID #60 tabs 07/08/25 07/25/25 Rx iron) tablet trazodone 100 mg tablet 100 mg PO HS #90 tabs 07/08/25 07/25/25 Rx montelukast 10 mg tablet 10 mg PO HS #30 tabs 07/18/25 07/25/25 Rx ranolazine 500 mg tablet,extended 500 mg PO BID 30 days #60 tabs 07/18/25 07/25/25 Rx release,12 hr alprazolam 1 mg tablet 1 mg PO BID 07/25/25 07/25/25 History cefdinir 300 mg capsule 300 mg PO BID 4 days #8 caps 07/25/25 Rx dicyclomine 10 mg capsule 40 mg (4 x 10 mg) PO QID PRN 07/25/25 Rx abdominal pain #30 caps furosemide 20 mg tablet 20 mg PO DAILY 07/25/25 07/25/25 History levothyroxine 100 mcg tablet 100 mcg PO DAILY 07/25/25 07/25/25 History [id number] 2 cap PO AC 30 days #180 caps 07/25/25 Rx 36,000-114,000-180,000 unit capsule,delay rel (Creon) ondansetron 4 mg disintegrating 4 mg PO Q8HP PRN nausea and 07/25/25 07/25/25 History tablet vomiting oxycodone 5 mg tablet 7.5 mg (1.5 x 5 mg) PO Q6H PRN 07/25/25 Rx pain 3 days #18 tabs New Prescriptions to Start Prescriptions: cefdinir Jewell,Alan dicyclomine Alan Corcoran [id number] [Creon] Jewell,Alan oxycodone Jewell,Alan Allergies Allergy/AdvReac Type Severity Reaction Status Date / Time codeine (CODEINE) Allergy Intermediate N/V Verified 06/23/25 13:14 ketorolac (KETOROLAC) Allergy Intermediate Hives Verified 06/23/25 13:14 meperidine (MEPERIDINE) Allergy Intermediate Hives Verified 06/23/25 13:14 tramadol (TRAMADOL) Allergy Intermediate Hives Verified 06/23/25 13:14 ciprofloxacin AdvReac Severe Interacts Verified 06/23/25 13:14 with cymbalta Discharge Plan Disposition Patient Disposition: Home, Self-Care Condition: Fair Follow up Plan Follow up with: Rubin Kearney MD [Referring, Medical] - 1 week Juan C Colón MD [Staff Physician, Family Practice] - 1 week Prescriptions/Medication Reconciliation: New oxycodone 5 mg tablet 7.5 mg PO Q6H PRN (Reason: pain) 3 Days Qty: 18 0RF dicyclomine 10 mg capsule 40 mg PO QID PRN (Reason: abdominal pain) Qty: 30 0RF Creon 36,000-114,000- 180,000 unit Capsule,Delayed Release(Dr/Ec) 2 cap PO AC 30 Days Qty: 180 0RF cefdinir 300 mg capsule 300 mg PO BID 4 Days Qty: 8 0RF Continued Xarelto 20 mg tablet 20 mg PO QPMWITHMEAL quetiapine 25 mg tablet 25 mg PO DAILY verapamil 120 mg tablet extended release 120 mg PO BID promethazine 12.5 mg tablet 12.5 mg PO Q6HP PRN (Reason: Nausea And Vomiting) Qty: 60 0RF atorvastatin 40 mg tablet 40 mg PO HS Qty: 90 3RF pantoprazole 40 mg tablet,delayed release (DR/EC) 40 mg PO HS 30 Days Qty: 30 0RF potassium chloride 10 mEq tablet extended release 10 meq PO DAILY Qty: 90 0RF duloxetine 60 mg capsule,delayed release(DR/EC) 60 mg PO BID 90 Days Qty: 180 0RF metformin 1,000 mg tablet 1,000 mg PO BIDWMEAL Qty: 60 0RF ferrous sulfate 325 mg (65 mg iron) tablet 325 mg PO BID Qty: 60 0RF trazodone 100 mg tablet 100 mg PO HS Qty: 90 0RF montelukast 10 mg tablet 10 mg PO HS Qty: 30 2RF ranolazine 500 mg tablet extended release 12 hr 500 mg PO BID 30 Days Qty: 60 10RF polyethylene glycol 3350 [Miralax] 17 gram/dose powder 17 g PO DAILY PRN (Reason: constiptation) Qty: 510 0RF magnesium oxide 400 mg (241.3 mg magnesium) tablet 400 mg PO BID gabapentin 600 mg tablet 600 mg PO BID ropinirole 0.25 mg tablet 0.25 mg PO HS cholecalciferol (vitamin D3) 1,250 mcg (50,000 unit) capsule 1,250 mcg PO FR alprazolam 1 mg tablet 1 mg PO BID levothyroxine 100 mcg tablet 100 mcg PO DAILY furosemide 20 mg tablet 20 mg PO DAILY ondansetron 4 mg tablet,disintegrating 4 mg PO Q8HP PRN (Reason: nausea and vomiting) Problem Reconciliation Problems Reviewed?: Yes Patient Discharge Instructions ACTIVITY: Continue current activity DIET: continue same diet Patient Instructions: DI for Pancreatitis, DI for Urinary Tract Infection (UTI) Print Language: Serbian Providers Primary Care Provider: Provider,Referral Admit Provider: Olu Ulrich Attending Provider: Olu Ulrich
--- NOTE | 2025-07-25 13:39 | DIET.NUTRFU ---
Spoke to patient, had all her top teeth pulled for dentures. Her mouth still in pain. Having trouble with sandwich upon visit and agreed to try a ground diet to help po diet. She also indicated it was going to be a while before she could get dentures in place. Suggested high protein foods and supplements that would be easier to consume. Diet order updated
--- NOTE | 2025-07-25 14:02 | CARE MANAGER ---
Spoke with patient regarding discharge plan. Patient stated that she is not interested in SNF at time of discharge. May be agreeable to HH, but will think about it tonight. Plan to speak with her again in the morning.
--- NOTE | 2025-07-25 21:07 | PC.NURSE ---
Patient requested snack and pepsi, sitting up in bed, waiting for significant other to arrive to take patient home.
--- NOTE | 2025-07-27 10:31 | SW/DCPLANNER ---
Phoned patient x2. No answer and left message with name and a call back number each time. Raymond Younger
== END 2025-07-25 20:54 | disposition home or self-care (01) ==
LOC: ER 00:28 → 2ND 05:31
PROVIDERS: Admitting Provider Internal Medicine; Emergency Provider Emergency Medicine; Visit Provider Internal Medicine
DX: K86.1 Other chronic pancreatitis (principal); N30.00 Acute cystitis without hematuria; E03.9 Hypothyroidism, unspecified; I48.0 Paroxysmal atrial fibrillation; E11.9 Type 2 diabetes mellitus without complications; I25.118 Atherosclerotic heart disease of native coronary artery with other forms of angina pectoris; E78.5 Hyperlipidemia, unspecified; J43.9 Emphysema, unspecified; I11.0 Hypertensive heart disease with heart failure; I50.9 Heart failure, unspecified; J96.11 Chronic respiratory failure with hypoxia; F41.9 Anxiety disorder, unspecified; G47.00 Insomnia, unspecified; F17.290 Nicotine dependence, other tobacco product, uncomplicated; E66.9 Obesity, unspecified; F39 Unspecified mood [affective] disorder; D53.9 Nutritional anemia, unspecified; F32.A Depression, unspecified; Z68.33 Body mass index [BMI] 33.0-33.9, adult; Z88.1 Allergy status to other antibiotic agents; Z88.5 Allergy status to narcotic agent; Z88.6 Allergy status to analgesic agent; Z86.73 Personal history of transient ischemic attack (TIA), and cerebral infarction without residual deficits; Z95.5 Presence of coronary angioplasty implant and graft; Z79.01 Long term (current) use of anticoagulants; Z79.899 Other long term (current) drug therapy; Z79.84 Long term (current) use of oral hypoglycemic drugs; Z79.890 Hormone replacement therapy
CPT/HCPCS: 74177; 80053; 80307; 81001; 82962; 83605; 83690; 83735; 84100; 84484; 85025; 87040; 87086; 93005; 96365; 96367; 96374; 96375; 96376; 97162; 97166; 99285; G0378; J0131; J0696; J1171; J2405; J3475; J7030; Q9967

== ENCOUNTER 2025-10-14 14:08 | Inpatient (IN) | payer MEDICARE, MEDICAID, SELFPAY ==
[2025-10-14] VITALS (20 sets, daily range): BP systolic 98–158; BP diastolic 67–134; PULSE 11–132; RESP 13–23; TEMP 36.9–37; O2SAT 86–100; BMI 32.3
--- NOTE | 2025-10-14 14:41 | ED_ITS ---
<Statement entered by Jean Lawrence DO - 10/15/25 01:09> I was consulted by the STERLING, and we discussed the complexity of problems being addressed. I approved the treatment and management plan for this patient's care in the emergency department, thus performing a substantive portion of the medical decision making. Jean Lawrence DO This is Dr. Lawrence. I did independently evaluate this patient at the time of shift change. Patient had a period of hypoxia after receiving Dilaudid in the emergency department. Mr. Echeverria had ordered a VBG which resulted showing that she had a pCO2 elevated higher than 60 as well as a pH of 7.25. When I evaluated the patient she had nearly absent breath sounds in her bilateral lung garcia. I felt that this clinical picture in conjunction with her VBG was most likely secondary to a COPD exacerbation with profound bronchoconstriction. Therefore we treated the patient with steroids as well as DuoNebs and placed the patient on BiPAP. Patient was ultimately admitted to the hospital medicine service for COPD exacerbation with acute hypercapnic respiratory failure. Discharge Plan Disposition Patient Disposition: Admitted Condition: Fair Clinical Impressions Clinical Impression: COPD exacerbation, Acute and chronic respiratory failure with hypoxia Chronic pancreatitis Qualifiers: Pancreatitis type: unspecified pancreatitis type Qualified Code(s): K86.1 - Other chronic pancreatitis Discharge ED Provider: Ifeanyi Britton Adult HPI <CECIL Cano - Last Filed: 10/14/25 18:55> General Chief complaint: Abdominal Pain Stated complaint: Pain abd/back, double pnuemonia, COPD Time Seen by Provider: 10/14/25 14:26 Mode of Arrival: Wheelchair Source of Information: Patient and Relative Description of Symptoms (Recalled from ER Triage Doc. by RN): abdominal pain thats started since this morning. stated born with pancreatic issues. was in [facility] recently for double pneumonia and has been on 3l since. feels it may be coming back History of Present Illness HPI narrative: 65-year-old female presents the emergency department with left upper quadrant abdominal pain nausea, this started this morning she also endorses subjective fever and chills no recorded Tmax, patient is on 3 L nasal cannula endorses cough and shortness of breath, was recently admitted to , for double pneumonia , was on 6 L nasal cannula, reduced to 3 L nasal cannula currently, denies any chest pain, denies any constipation diarrhea, does endorse no appetite today, no episodes of vomiting thus far, denies any urinary symptomatology. Patient is a former smoker denies any alcohol or drug use, other past medical history consistent with pancreatic divisum's/chronic pancreatitis, anemia, hypothyroidism, pulmonary nodules, HFpEF, hemorrhoids, T2DM, AVN of the right femoral head, obesity, TAMIKA/MDD, hyperlipidemia, COPD, PAF, on anticoagulation therapy with Xarelto, hypertension, CAD status post 5 stents, RLS. Initial triage vitals are unremarkable. Please note that above description of symptoms, in this electronic medical record under categorization of recalled from ER triage doctor by RN are reflective of an initial nursing assessment, however, is not reflective of my full history and physical exam that was personally taken and clarified. Consequentially, this preceding description of symptoms, which may include the patient's categorized chief complaint in the EMR, do not reflect my personal clinical impression, and the ultimate description of history of present illness and patient stated complaints should be deferred to this section of the note. Unless stated otherwise or congruent with this section of the note, additional signs, symptoms, or incongruence should be interpreted as inaccurate with my clinical impression. Onset (ago): hour(s) Related Data Home Medications ?Medication ?Instructions ?Recorded ?Confirmed rivaroxaban 20 mg tablet (Xarelto) 20 mg PO QPMWITHMEA L 05/12/25 07/25/25 cholecalciferol (vitamin D3) 1,250 1,250 mcg PO FR 07/25/25 mcg (50,000 unit) capsule gabapentin 600 mg tablet 600 mg PO BID 05/26/2507/25 ropinirole 0.25 mg tablet 0.25 mg PO HS 05/26/2507/25 verapamil 120 mg tablet,extended 120 mg PO BID 5 07/25/25 release furosemide 20 mg tablet 20 mg PO DAILY 07/25/2507/02 levothyroxine 100 mcg tablet 100 mcg PO DAILY 07/25/25 07/25/25 ondansetron 4 mg disintegrating 4 mg PO Q8HP PRN nause a and 07/25/25 07/25/25 tablet vomiting Previous Rx's ?Medication ?Instructions ?Recorded atorvastatin 40 mg tablet 40 mg PO HS #90 tabs 5 pantoprazole 40 mg tablet,delayed 40 mg PO HS 30 days #30 tabs 04/06/25 release potassium chloride 10 mEq 10 meq PO DAILY #90 tabs tablet,extended release duloxetine 60 mg capsule,delayed 60 mg PO BID 90 days #180 caps 04/18/25 release polyethylene glycol 3350 17 17 g PO DAILY PRN constipt ation 05/25/25 gram/dose oral powder (Miralax) #510 grams promethazine 12.5 mg tablet 12.5 mg PO Q6HP PRN Nausea And 06/23/25 Vomiting #60 tabs trazodone 100 mg tablet 100 mg PO HS #90 tabs montelukast 10 mg tablet 10 mg PO HS #30 tabs 5 ranolazine 500 mg tablet,extended 500 mg PO BID 30 day s #60 tabs 07/18/25 release,12 hr cefdinir 300 mg capsule 300 mg PO BID 4 days #8 caps 07/25/25 dicyclomine 10 mg capsule 40 mg (4 x 10 mg) PO QID PRN 07/25/25 abdominal pain #30 caps zibafl-ralwualz-mpfrhru 2 cap PO AC 30 days #180 cap s 07/25/25 (pork)36,000-114,000-180k unit capsule,del rel (Creon) oxycodone 5 mg tablet 7.5 mg (1.5 x 5 mg) PO Q6H P RN 07/25/25 pain 3 days #18 tabs magnesium oxide 400 mg (241.3 mg 400 mg PO BID #60 tab s 08/26/25 magnesium) tablet ropinirole 0.25 mg tablet 0.25 mg PO HS #30 tabs 09/22 ferrous sulfate 325 mg (65 mg 325 mg PO BID #60 tabs 1 iron) tablet metformin 1,000 mg tablet 1,000 mg PO BIDWMEAL #60 tab s 09/26/25 quetiapine 50 mg tablet (Seroquel) 50 mg PO DAILY #90 tabs 09/26/25 alprazolam 1 mg tablet 1 mg PO BID PRN anxiety #30 tabs 10/12/25 Allergies Allergy/AdvReac Type Severity Reaction Status Date / Time codeine (CODEINE) Allergy Intermediate N/V Verified 06/23/25 13:14 ketorolac (KETOROLAC) Allergy Intermediate Hives Verified 06/23/25 13:14 meperidine (MEPERIDINE) Allergy Intermediate Hives Verified 06/23/25 13:14 tramadol (TRAMADOL) Allergy Intermediate Hives Verified 06/23/25 13:14 ciprofloxacin AdvReac Severe Interacts Verified 06/23/25 13:14 with cymbalta [facility] <CECIL Cano - Last Filed: 10/14/25 18:55> [facility] Disclaimer: The information contained in this section may have been updated after the patient was seen, as this information can be updated by other users. Medical History Internal hemorrhoid, bleeding Multiple falls Pancreatic divisum Afib Esophageal dilatation Multiple lung nodules on CT Pulmonary emphysema Hypocalcemia Hypokalemia Acidosis, lactic GI bleed Noncompliance with medication regimen Tobacco dependence in remission Pancreas divisum of [place] pancreas Encounter for pre-operative cardiovascular clearance Orthopnea CHF (congestive heart failure) Pancreatitis Nausea vomiting and diarrhea Exhausted vascular access Rib fractures Chronic hypoxemic respiratory failure Coronary artery disease COPD (chronic obstructive pulmonary disease) HLD (hyperlipidemia) Diabetes Anxiety and depression TIA (transient ischemic attack) History of stroke History of multiple cerebrovascular accidents (CVAs) History of class III angina pectoris Typical angina Dyspnea History of pancreatitis History of CVA (cerebrovascular accident) Surgical History History of banding of hemorrhoid History of biliary duct stent placement History of hysterectomy History of cholecystectomy History of coronary artery stent placement Family History Other Family history of cancer Family history of diabetes mellitus Social History Smoking Status: Current every day smoker tobacco type: e-cigarettes years smoked: 45 how long ago did patient quit smokin years ago quit status: quit date established second hand exposure: No alcohol intake: never counseling provided: none substance use type: marijuana and crack/cocaine current occupational status: retired, disabled and other Travel in the last 8 weeks?: None household members: significant other housing: house marital status: number of children: 2 current occupational exposures/hazards: No caffeine: Yes Have you lived/traveled outside [place] in past 30 days?: No Contact w/someone who lives/traveled outside US past 30 days?: No Exposure to someone with infectious disease in past 14 days?: No Do you have a fever (greater than 100.4 F or 38 C)?: No Have you tested positive for COVID-19?: No Exposed to someone with COVID-19 in past 14 days?: No Do you have a sore throat?: No Do you have a cough?: No Do you have any weakness?: No Do you have any diarrhea?: No Are you experiencing any unusual bleeding?: No Do you have any muscle aches/pain?: No Do you have any abdominal pain?: No Are you experiencing loss of taste or smell?: No Other Medical History Have you received the Flu Vaccine for this season: No Have you received the Pneumonia Vaccine: No <CECIL Cano - Last Filed: 10/14/25 18:55> ROS Obtained: Yes All systems reviewed & no additional complaints except as documented Physical Exam <CECIL Cano - Last Filed: 10/14/25 18:55> General General appearance: alert and in no apparent distress Comment: Uncomfortable appearing female Head Head exam: atraumatic and normocephalic Eye Eye exam: Present PERRL and EOMI ENT ENT exam: Present mucous membranes moist Neck Neck exam: Present normal inspection Chest Chest inspection: Present normal inspection and symmetric chest wall rise Respiratory Respiratory exam: Present other (Minimal crackles noted throughout bilateral lung garcia/poor inspiratory and expiratory phase, with poor air movement throughout.); Absent normal lung sounds bilaterally, respiratory distress, wheezes or stridor Cardiovascular Cardiovascular exam: Present regular rate and normal rhythm Abdominal Exam Abdominal exam: Present soft and tenderness; Absent guarding, rebound or rigidity Extremities Exam Extremities exam: Present normal inspection Neurological Exam Neurological exam: Present alert and oriented X3 Psychiatric Psychiatric exam: Present normal affect Skin Skin exam: Present warm and dry Medical Decision Making <CECIL Cano - Last Filed: 10/14/25 18:55> Medical Records Medical records reviewed: Yes I reviewed the patient's medical records. Screening: Per USPSTF and CDC recommendations, given the prevalence of disease in our region, it is our hospital?s policy to screen for HIV and viral Hepatitis for all patients aged 18 and over and those with ongoing risk factors. Delroy Inquiry Pt receiving controlled substance: Yes Delroy was queried for this patient: No Reason not queried -: Emergent pt cond-no time Risks and benefits of using a controlled substance: were discussed with pt by me Vital Signs: 10/14/25 14:20 10/14/25 14:21 10/14/25 14:30 Temperature 98.4 F Temperature Source Oral Pulse Rate 132 H 74 Pulse Rate [Right Brachial] 77 Respiratory Rate 20 Blood Pressure 142/108 H 135/95 H Blood Pressure [Right Arm] 142/108 H Blood Pressure Mean [Right Arm] 119 Blood Pressure Source Blood Pressure Source [Right Arm] Automatic Cuff Blood Pressure Position [Right Arm] Sitting 02 Sat by Pulse Oximetry 90 L 97 100 Oxygen Delivery Method Nasal Cannula Nasal Cannula Nasal Cannula Oxygen Flow Rate (LPM) 3 3 3 Fraction of Inspired Oxygen 10/14/25 15:00 10/14/25 15:30 10/14/25 15:56 Temperature Temperature Source Pulse Rate 69 71 125 H Pulse Rate [Right Brachial] Respiratory Rate Blood Pressure 158/93 H 158/134 H 107/67 L Blood Pressure [Right Arm] Blood Pressure Mean [Right Arm] Blood Pressure Source Blood Pressure Source [Right Arm] Blood Pressure Position [Right Arm] 02 Sat by Pulse Oximetry 100 94 L 94 L Oxygen Delivery Method Nasal Cannula Nasal Cannula Oxygen Flow Rate (LPM) 3 3 Fraction of Inspired Oxygen 10/14/25 16:01 10/14/25 16:30 10/14/25 17:01 Temperature Temperature Source Pulse Rate 125 H 87 102 H Pulse Rate [Right Brachial] Respiratory Rate Blood Pressure 119/79 121/80 118/81 Blood Pressure [Right Arm] Blood Pressure Mean [Right Arm] Blood Pressure Source Blood Pressure Source [Right Arm] Blood Pressure Position [Right Arm] 02 Sat by Pulse Oximetry 86 L 86 L 91 L Oxygen Delivery Method Nasal Cannula Nasal Cannula BiPAP Oxygen Flow Rate (LPM) 6 6 Fraction of Inspired Oxygen 10/14/25 17:24 10/14/25 17:30 10/14/25 18:59 Temperature 98.6 F Temperature Source Oral Pulse Rate 82 108 H Pulse Rate [Right Brachial] Respiratory Rate 20 Blood Pressure 117/82 99/79 L Blood Pressure [Right Arm] Blood Pressure Mean [Right Arm] Blood Pressure Source Automatic Cuff Blood Pressure Source [Right Arm] Blood Pressure Position [Right Arm] 02 Sat by Pulse Oximetry 95 Oxygen Delivery Method Room Air BiPAP Oxygen Flow Rate (LPM) Fraction of Inspired Oxygen 35 Lab Data Lab results reviewed: Yes I reviewed the patient's lab results. Lab Results 10/14/25 14:15: Urine Color Yellow, Urine Appearance Clear, Urine pH 8.0, Ur Specific [place] 1.020, Urine Protein Negative, Urine Glucose (UA) Negative, Urine Ketones Negative, Urine Blood Negative, Urine Nitrate Negative, Urine Bilirubin Negative, Urine Urobilinogen 0.2, Ur Leukocyte Esterase Negative, Urine RBC None, Urine WBC None, Ur Squamous Epith Cells Occasional, Urine Bacteria Trace 10/14/25 14:59: WBC 9.4, RBC 4.06 L, Hgb 12.2, Hct 38.5, MCV 94.8, MCH 30.0, M CHC 31.7 L, RDW 15.2, Plt Count 305, MPV 10.4, Neut % (Auto) 67.7, Lymph % (Auto) 23.6, [place] % (Auto) 5.2, Eos % (Auto) 2.8, Baso % (Auto) 0.4, Neut # (Auto) 6.3, Lymph # (Auto) 2.2, [place] # (Auto) 0.5, Eos # (Auto) 0.3, Baso # (Auto) 0.0, Sodium 134 L, Potassium 4.2, Chloride 101, Carbon Dioxide 28, Anion Gap 9.2, BUN 14, Creatinine 1.00, Estimated Creat Clear 80, Estimated GFR 56 L, Est GFR ( Amer) 67, Glucose 113 H, Calcium 8.8, Magnesium 1.6, Total Bilirubin 0.6, AST 25, ALT 16, Alkaline Phosphatase 97, Troponin I < 0.01, N T-Pro-B Natriuret Pep 740 H, Total Protein 7.0, Albumin 3.8, Globulin 3.2, Albumin/Globulin Ratio 1.2, Lipase 102 10/14/25 15:16: Lactate 0.8 10/14/25 16:32: VBG pH 7.25 L, VBG pCO2 62.2 H, VBG pO2 48.8 H, VBG HCO3 26.7, V BG Total CO2 28.6 H, VBG O2 Saturation 76.8 H, VBG Base Excess -0.6, VBG Lactic Acid 0.8 10/14/25 17:16: Specimen Source Left radial, O2 % 35% + 10l neb, ABG pH 7.24 L*, ABG pCO2 63.1 H, ABG pO2 172.3 H, ABG HCO3 26.6 H, ABG Total CO2 28.6 H, ABG O2 Saturation 99, ABG Base Excess -0.7, Wili Test Acceptable, Vent Rate 18 10/14/25 14:59 10/14/25 14:59 Orders (Tests/Meds): ED MEDICATIONS Generic Name Dose Route Start Last Admin Trade Name Freq PRN Reason Stop Dose Admin Acetaminophen 650 mg 10/14/25 17:06 Acetaminophen 325mg Tab PO 11/13/25 17:05 Q4HP PRN Fever or Mild Pain (1-3) Albuterol Sulfate 2.5 mg 10/14/25 19:51 Albuterol 0.083% 2.5 Mg/3 Ml Neb 11/13/25 19:50 Q2HP PRN Shortness Of Breath Albuterol/Ipratropium 3 ml 10/15/25 00:00 10/14/25 23:06 Ipratropium/Albuterol 3 Ml Neb IH 11/14/25 00:00 3 ml Q6RT CRISTOPHER Administration Enoxaparin Sodium 40 mg 10/15/25 09:00 Enoxaparin 40mg/0.4ml Syringe SUBCUT 11/14/25 08:59 DAILY CRISTOPHER Hydromorphone HCl 0.5 mg 10/14/25 20:03 Hydromorphone 2mg/Ml Syringe IV 11/13/25 20:02 Q4HP PRN Severe Pain (7-10) Ceftriaxone Sodium 1 gm/ 50 mls @ 100 mls/hr 10/14/25 20:15 10/14/25 23:30 Sodium Chloride IV 10/24/25 20:14 Infused Q24H CRISTOPHER Infusion Azithromycin 500 mg/ Sodium 250 mls @ 250 mls/hr 10/14/25 20:15 10/14/25 22:23 Chloride IV 10/24/25 20:14 Infused Q24H CRISTOPHER Infusion Insulin Human Lispro 0 unit 10/14/25 21:00 10/14/25 21:18 Humalog 100 Units/Ml 10ml Vial (Ssi) SUBCUT 11/13/25 20:59 Not Given ACHS CRISTOPHER Protocol Nicotine 21 mg 10/14/25 17:06 Nicotine 21mg/24hr Patch TD 11/13/25 17:05 DAILYP PRN Nicotine Cravings Oxycodone HCl 5 mg 10/14/25 20:01 10/14/25 20:40 Oxycodone 5mg Immediate Release Tablet PO 11/13/25 20:00 5 mg Q6HP PRN Administration Severe Pain (7-10) Pantoprazole Sodium 40 mg 10/14/25 21:00 10/14/25 20:40 Pantoprazole 40mg Tablet PO 11/13/25 20:59 40 mg HS CRISTOPHER Administration Discontinued Medications Generic Name Dose Route Start Last Admin Trade Name Freq PRN Reason Stop Dose Admin Acetaminophen 500 mg 10/14/25 16:32 10/14/25 16:44 Acetaminophen 500mg Tab PO 10/14/25 16:33 500 mg ONCE ONE Administration Albuterol/Ipratropium 6 ml 10/14/25 16:50 10/14/25 17:20 Ipratropium/Albuterol 3 Ml Neb IH 10/14/25 16:51 6 ml ONCE ONE Administration Hydromorphone HCl 0.5 mg 10/14/25 14:49 10/14/25 15:03 Hydromorphone 2mg/Ml Syringe IV 10/14/25 14:50 0.5 mg ONCE ONE Administration Hydromorphone HCl 0.5 mg 10/14/25 15:21 10/14/25 15:30 Hydromorphone 2mg/Ml Syringe IV 10/14/25 15:22 0.5 mg ONCE ONE Administration Iopamidol 80 ml 10/14/25 15:38 10/14/25 15:39 Iopamidol-370 (76%);100ml Bottle IV 10/14/25 15:39 80 ml ONCE ONE Administration Methylprednisolone Sodium Succinate 125 mg 10/14/25 16:51 10/14/25 16:59 Methylprednisolone Sod Succ 125mg Vial IV 10/14/25 16:52 125 mg ONCE ONE Administration Ondansetron HCl 4 mg 10/14/25 14:49 10/14/25 15:03 Ondansetron 4mg/2ml Vial IV 10/14/25 14:50 4 mg ONCE ONE Administration Sodium Chloride 50 ml 10/14/25 15:38 10/14/25 15:40 0.9 % Sodium Chloride 50 Ml Vial IV 10/14/25 15:39 50 ml ONCE ONE Administration Sodium Chloride 10 ml 10/14/25 15:38 10/14/25 15:39 Sodium Chloride 0.9% 10ml Syr (Rad Only) IV 10/14/25 15:39 10 ml ONCE ONE Administration ORDERS Category Date Time Status CT abdomen pelvis w con Stat Cat Scan 10/14/25 14:[address] angio chest PE protocol Stat Cat Scan 10/14/25 14:46 Completed XR chest portable Stat Exams 10/14/25 14:47 Completed Complete Blood Count Auto Diff AMLAB Lab 10/15/25 06:00 Ordered Complete Blood Count Auto Diff Stat Lab 10/14/25 14:59 Completed Comprehensive Metabolic Panel AMLAB Lab 10/15/25 06:00 Ordered Comprehensive Metabolic Panel Stat Lab 10/14/25 14:59 Completed Lactic Acid Stat Lab 10/14/25 15:16 Completed Lipase Stat Lab 10/14/25 14:59 Completed Magnesium AMLAB Lab 10/15/25 06:00 Ordered Magnesium Stat Lab 10/14/25 14:59 Completed NT Pro Brain Natriuretic Pep. Stat Lab 10/14/25 14:59 Completed Troponin I Q3H Lab 10/14/25 19:32 Completed Troponin I Q3H Lab 10/14/25 22:41 Completed Troponin I Stat Lab 10/14/25 14:59 Completed Urinalysis and Microscopic Stat Lab 10/14/25 14:15 Completed Blood Culture Stat Micro 10/14/25 15:19 Received ABG [Arterial Blood Gas] Stat RT 10/14/25 17:16 Results VBG [Venous Blood Gas] Stat RT 10/14/25 16:32 Completed Medical Decision Narrative: 65-year-old female presents the emergency department with abdominal pain, nausea, for 1 day, shortness of breath for several days, see HPI for detailed past medical history, differential diagnose include but not limited to, pneumonia, acute UTI, pancreatitis, bowel obstruction, cardiac arrhythmia, electrolyte disturbance, PE, diverticulitis, colitis, ileitis, acute pyelonephritis, among others. I discussed this patient's case with the attending physician as well as the attending physician Dr. Lawrence he saw and examined the patient as well. Will obtain basic laboratory studies, EKG, CT ab pelvis with contrast, VBG, CTA chest without contrast PE protocol, CXR, lactic acid level, lipase level magnesium level proBNP troponin urinalysis, blood cultures, will give 0.5 mg IV Dilaudid for pain and 4 mg of Zofran for nausea. CBC is unremarkable hemoglobin hematocrit are stable. UA is unremarkable. Patient is requesting more pain medications per nursing staff, will give additional dose of 0.5 mg IV Dilaudid. I was consulted by the STERLING, and we discussed the complexity of the problems being addressed. I approve the treatment and management plan for this patient's care in the emergency department, thus performing a substantive portion of the medical decision making. Patient's care was transferred to the oncoming physician, Dr. Lawrence, pending completion of his workup. Ifeanyi Britton MD Lipase within normal limits, CMP is unremarkable, with the exception of a mild hyponatremia 134. No lactic acidosis. Troponin is less than 0.01, proBNP is mildly elevated at 740. I reviewed the patient's chest x-ray along the corresponding radiologic report no acute cardiopulmonary process. I reviewed the patient's CTA chest with and without contrast PE protocol, along with the corresponding radiologic report, no evidence for PE on this exam chronic lung changes without evidence of pneumonia, moderate cardiomegaly mild adenopathy consider benign reactive. I reviewed the patient's CT abdomen pelvis with contrast along the corresponding radiologic report, no acute intra-abdominal process. Patient still complaining of some pain via nursing staff. Patient has had some waxing and waning oxygen requirement here in the emergency department currently requiring 6 L nasal cannula, several episodes of drowsiness and oxygen desaturation thus we will hold off on narcotic pain medication at this time. At this time we will attempt with nonnarcotic pain medication with 500 mg p.o. Tylenol. VBG is notable for pH 7.25, pCO2 is mildly elevated at 62.2, and bicarb is within normal limits, because of the patient's respiratory acidosis and worsening oxygen requirement and previous history of discharge from OSH with pneumonia, will place the patient on BiPAP, and will give 6 mm DuoNeb as well as 125 mg IV methylprednisone for COPD exacerbation. I discussed this patient's case with the attending physician Dr. Cody at approximately 4:58 PM, patient is accepted for admission for COPD exacerbation and acute hypoxemic hypercapnic respiratory failure, he would likely obtain ABG prior to admission. Will obtain ABG. I discussed need for admission with the patient family at the bedside patient and family are in agreement with current admission plan/treatment plan. ABG is notable for acidotic pH of 7.24, pCO2 was elevated at 60.1, bicarb is elevated at 26 point <Ifeanyi Britton MD - Last Filed: 10/14/25 15:23> Vital Signs: 10/14/25 14:20 10/14/25 14:21 10/14/25 14:30 Temperature 98.4 F Temperature Source Oral Pulse Rate 132 H 74 Pulse Rate [Right Brachial] 77 Respiratory Rate 20 Blood Pressure 142/108 H 135/95 H Blood Pressure [Right Arm] 142/108 H Blood Pressure Mean [Right Arm] 119 Blood Pressure Source Blood Pressure Source [Right Arm] Automatic Cuff Blood Pressure Position [Right Arm] Sitting 02 Sat by Pulse Oximetry 90 L 97 100 Oxygen Delivery Method Nasal Cannula Nasal Cannula Nasal Cannula Oxygen Flow Rate (LPM) 3 3 3 Fraction of Inspired Oxygen 10/14/25 15:00 10/14/25 15:30 10/14/25 15:56 Temperature Temperature Source Pulse Rate 69 71 125 H Pulse Rate [Right Brachial] Respiratory Rate Blood Pressure 158/93 H 158/134 H 107/67 L Blood Pressure [Right Arm] Blood Pressure Mean [Right Arm] Blood Pressure Source Blood Pressure Source [Right Arm] Blood Pressure Position [Right Arm] 02 Sat by Pulse Oximetry 100 94 L 94 L Oxygen Delivery Method Nasal Cannula Nasal Cannula Oxygen Flow Rate (LPM) 3 3 Fraction of Inspired Oxygen 10/14/25 16:01 10/14/25 16:30 10/14/25 17:01 Temperature Temperature Source Pulse Rate 125 H 87 102 H Pulse Rate [Right Brachial] Respiratory Rate Blood Pressure 119/79 121/80 118/81 Blood Pressure [Right Arm] Blood Pressure Mean [Right Arm] Blood Pressure Source Blood Pressure Source [Right Arm] Blood Pressure Position [Right Arm] 02 Sat by Pulse Oximetry 86 L 86 L 91 L Oxygen Delivery Method Nasal Cannula Nasal Cannula BiPAP Oxygen Flow Rate (LPM) 6 6 Fraction of Inspired Oxygen 10/14/25 17:24 10/14/25 17:30 10/14/25 18:59 Temperature 98.6 F Temperature Source Oral Pulse Rate 82 108 H Pulse Rate [Right Brachial] Respiratory Rate 20 Blood Pressure 117/82 99/79 L Blood Pressure [Right Arm] Blood Pressure Mean [Right Arm] Blood Pressure Source Automatic Cuff Blood Pressure Source [Right Arm] Blood Pressure Position [Right Arm] 02 Sat by Pulse Oximetry 95 Oxygen Delivery Method Room Air BiPAP Oxygen Flow Rate (LPM) Fraction of Inspired Oxygen 35 Lab Data Lab Results 10/14/25 14:15: Urine Color Yellow, Urine Appearance Clear, Urine pH 8.0, Ur Specific [place] 1.020, Urine Protein Negative, Urine Glucose (UA) Negative, Urine Ketones Negative, Urine Blood Negative, Urine Nitrate Negative, Urine Bilirubin Negative, Urine Urobilinogen 0.2, Ur Leukocyte Esterase Negative, Urine RBC None, Urine WBC None, Ur Squamous Epith Cells Occasional, Urine Bacteria Trace 10/14/25 14:59: WBC 9.4, RBC 4.06 L, Hgb 12.2, Hct 38.5, MCV 94.8, MCH 30.0, M CHC 31.7 L, RDW 15.2, Plt Count 305, MPV 10.4, Neut % (Auto) 67.7, Lymph % (Auto) 23.6, [place]ner % (Auto) 5.2, Eos % (Auto) 2.8, Baso % (Auto) 0.4, Neut # (Auto) 6.3, Lymph # (Auto) 2.2, [place] # (Auto) 0.5, Eos # (Auto) 0.3, Baso # (Auto) 0.0, Sodium 134 L, Potassium 4.2, Chloride 101, Carbon Dioxide 28, Anion Gap 9.2, BUN 14, Creatinine 1.00, Estimated Creat Clear 80, Estimated GFR 56 L, Est GFR ( Amer) 67, Glucose 113 H, Calcium 8.8, Magnesium 1.6, Total Bilirubin 0.6, AST 25, ALT 16, Alkaline Phosphatase 97, Troponin I < 0.01, N T-Pro-B Natriuret Pep 740 H, Total Protein 7.0, Albumin 3.8, Globulin 3.2, Albumin/Globulin Ratio 1.2, Lipase 102 10/14/25 15:16: Lactate 0.8 10/14/25 16:32: VBG pH 7.25 L, VBG pCO2 62.2 H, VBG pO2 48.8 H, VBG HCO3 26.7, V BG Total CO2 28.6 H, VBG O2 Saturation 76.8 H, VBG Base Excess -0.6, VBG Lactic Acid 0.8 10/14/25 17:16: Specimen Source Left radial, O2 % 35% + 10l neb, ABG pH 7.24 L*, ABG pCO2 63.1 H, ABG pO2 172.3 H, ABG HCO3 26.6 H, ABG Total CO2 28.6 H, ABG O2 Saturation 99, ABG Base Excess -0.7, Wili Test Acceptable, Vent Rate 18 Orders (Tests/Meds): ED MEDICATIONS Generic Name Dose Route Start Last Admin Trade Name Freq PRN Reason Stop Dose Admin Acetaminophen 650 mg 10/14/25 17:06 Acetaminophen 325mg Tab PO 11/13/25 17:05 Q4HP PRN Fever or Mild Pain (1-3) Albuterol Sulfate 2.5 mg 10/14/25 19:51 Albuterol 0.083% 2.5 Mg/3 Ml Neb 11/13/25 19:50 Q2HP PRN Shortness Of Breath Albuterol/Ipratropium 3 ml 10/15/25 00:00 10/14/25 23:06 Ipratropium/Albuterol 3 Ml Neb IH 11/14/25 00:00 3 ml Q6RT CRISTOPHER Administration Enoxaparin Sodium 40 mg 10/15/25 09:00 Enoxaparin 40mg/0.4ml Syringe SUBCUT 11/14/25 08:59 DAILY CRISTOPHER Hydromorphone HCl 0.5 mg 10/14/25 20:03 Hydromorphone 2mg/Ml Syringe IV 11/13/25 20:02 Q4HP PRN Severe Pain (7-10) Ceftriaxone Sodium 1 gm/ 50 mls @ 100 mls/hr 10/14/25 20:15 10/14/25 23:30 Sodium Chloride IV 10/24/25 20:14 Infused Q24H CRISTOPHER Infusion Azithromycin 500 mg/ Sodium 250 mls @ 250 mls/hr 10/14/25 20:15 10/14/25 22:23 Chloride IV 10/24/25 20:14 Infused Q24H CRISTOPHER Infusion Insulin Human Lispro 0 unit 10/14/25 21:00 10/14/25 21:18 Humalog 100 Units/Ml 10ml Vial (Ssi) SUBCUT 11/13/25 20:59 Not Given ACHS CRISTOPHER Protocol Nicotine 21 mg 10/14/25 17:06 Nicotine 21mg/24hr Patch TD 11/13/25 17:05 DAILYP PRN Nicotine Cravings Oxycodone HCl 5 mg 10/14/25 20:01 10/14/25 20:40 Oxycodone 5mg Immediate Release Tablet PO 11/13/25 20:00 5 mg Q6HP PRN Administration Severe Pain (7-10) Pantoprazole Sodium 40 mg 10/14/25 21:00 10/14/25 20:40 Pantoprazole 40mg Tablet PO 11/13/25 20:59 40 mg HS CRISTOPHER Administration Discontinued Medications Generic Name Dose Route Start Last Admin Trade Name Freq PRN Reason Stop Dose Admin Acetaminophen 500 mg 10/14/25 16:32 10/14/25 16:44 Acetaminophen 500mg Tab PO 10/14/25 16:33 500 mg ONCE ONE Administration Albuterol/Ipratropium 6 ml 10/14/25 16:50 10/14/25 17:20 Ipratropium/Albuterol 3 Ml Neb IH 10/14/25 16:51 6 ml ONCE ONE Administration Hydromorphone HCl 0.5 mg 10/14/25 14:49 10/14/25 15:03 Hydromorphone 2mg/Ml Syringe IV 10/14/25 14:50 0.5 mg ONCE ONE Administration Hydromorphone HCl 0.5 mg 10/14/25 15:21 10/14/25 15:30 Hydromorphone 2mg/Ml Syringe IV 10/14/25 15:22 0.5 mg ONCE ONE Administration Iopamidol 80 ml 10/14/25 15:38 10/14/25 15:39 Iopamidol-370 (76%);100ml Bottle IV 10/14/25 15:39 80 ml ONCE ONE Administration Methylprednisolone Sodium Succinate 125 mg 10/14/25 16:51 10/14/25 16:59 Methylprednisolone Sod Succ 125mg Vial IV 10/14/25 16:52 125 mg ONCE ONE Administration Ondansetron HCl 4 mg 10/14/25 14:49 10/14/25 15:03 Ondansetron 4mg/2ml Vial IV 10/14/25 14:50 4 mg ONCE ONE Administration Sodium Chloride 50 ml 10/14/25 15:38 10/14/25 15:40 0.9 % Sodium Chloride 50 Ml Vial IV 10/14/25 15:39 50 ml ONCE ONE Administration Sodium Chloride 10 ml 10/14/25 15:38 10/14/25 15:39 Sodium Chloride 0.9% 10ml Syr (Rad Only) IV 10/14/25 15:39 10 ml ONCE ONE Administration ORDERS Category Date Time Status CT abdomen pelvis w con Stat Cat Scan 10/14/25 14:[address] angio chest PE protocol Stat Cat Scan 10/14/25 14:46 Completed XR chest portable Stat Exams 10/14/25 14:47 Completed Complete Blood Count Auto Diff AMLAB Lab 10/15/25 06:00 Ordered Complete Blood Count Auto Diff Stat Lab 10/14/25 14:59 Completed Comprehensive Metabolic Panel AMLAB Lab 10/15/25 06:00 Ordered Comprehensive Metabolic Panel Stat Lab 10/14/25 14:59 Completed Lactic Acid Stat Lab 10/14/25 15:16 Completed Lipase Stat Lab 10/14/25 14:59 Completed Magnesium AMLAB Lab 10/15/25 06:00 Ordered Magnesium Stat Lab 10/14/25 14:59 Completed NT Pro Brain Natriuretic Pep. Stat Lab 10/14/25 14:59 Completed Troponin I Q3H Lab 10/14/25 19:32 Completed Troponin I Q3H Lab 10/14/25 22:41 Completed Troponin I Stat Lab 10/14/25 14:59 Completed Urinalysis and Microscopic Stat Lab 10/14/25 14:15 Completed Blood Culture Stat Micro 10/14/25 15:19 Received ABG [Arterial Blood Gas] Stat RT 10/14/25 17:16 Results VBG [Venous Blood Gas] Stat RT 10/14/25 16:32 Completed Medical Decision Narrative: 65-year-old female presents the emergency department with abdominal pain, nausea, for 1 day, shortness of breath for several days, see HPI for detailed past medical history, differential diagnose include but not limited to, pneumonia, acute UTI, pancreatitis, bowel obstruction, cardiac arrhythmia, electrolyte disturbance, PE, diverticulitis, colitis, ileitis, acute pyelonephritis, among others. I discussed this patient's case with the attending physician Will obtain basic laboratory studies, EKG, CT ab pelvis with contrast, CTA chest without contrast PE protocol, CXR, lactic acid level, lipase level magnesium level proBNP troponin urinalysis, blood cultures, will give 0.5 mg IV Dilaudid for pain and 4 mg of Zofran for nausea. CBC is unremarkable hemoglobin hematocrit are stable. UA is unremarkable. Patient is requesting more pain medications per nursing staff, will give additional dose of 0.5 mg IV Dilaudid. I was consulted by the STERLING, and we discussed the complexity of the problems being addressed. I approve the treatment and management plan for this patient's care in the emergency department, thus performing a substantive portion of the medical decision making. Patient's care was transferred to the oncoming physician, Dr. Lawrence, pending completion of his workup. Ifeanyi Britton MD <Jean Lawrence, DO - Last Filed: 10/15/25 01:10> Vital Signs: 10/14/25 14:20 10/14/25 14:21 10/14/25 14:30 Temperature 98.4 F Temperature Source Oral Pulse Rate 132 H 74 Pulse Rate [Right Brachial] 77 Respiratory Rate 20 Blood Pressure 142/108 H 135/95 H Blood Pressure [Right Arm] 142/108 H Blood Pressure Mean [Right Arm] 119 Blood Pressure Source Blood Pressure Source [Right Arm] Automatic Cuff Blood Pressure Position [Right Arm] Sitting 02 Sat by Pulse Oximetry 90 L 97 100 Oxygen Delivery Method Nasal Cannula Nasal Cannula Nasal Cannula Oxygen Flow Rate (LPM) 3 3 3 Fraction of Inspired Oxygen 10/14/25 15:00 10/14/25 15:30 10/14/25 15:56 Temperature Temperature Source Pulse Rate 69 71 125 H Pulse Rate [Right Brachial] Respiratory Rate Blood Pressure 158/93 H 158/134 H 107/67 L Blood Pressure [Right Arm] Blood Pressure Mean [Right Arm] Blood Pressure Source Blood Pressure Source [Right Arm] Blood Pressure Position [Right Arm] 02 Sat by Pulse Oximetry 100 94 L 94 L Oxygen Delivery Method Nasal Cannula Nasal Cannula Oxygen Flow Rate (LPM) 3 3 Fraction of Inspired Oxygen 10/14/25 16:01 10/14/25 16:30 10/14/25 17:01 Temperature Temperature Source Pulse Rate 125 H 87 102 H Pulse Rate [Right Brachial] Respiratory Rate Blood Pressure 119/79 121/80 118/81 Blood Pressure [Right Arm] Blood Pressure Mean [Right Arm] Blood Pressure Source Blood Pressure Source [Right Arm] Blood Pressure Position [Right Arm] 02 Sat by Pulse Oximetry 86 L 86 L 91 L Oxygen Delivery Method Nasal Cannula Nasal Cannula BiPAP Oxygen Flow Rate (LPM) 6 6 Fraction of Inspired Oxygen 10/14/25 17:24 10/14/25 17:30 10/14/25 18:59 Temperature 98.6 F Temperature Source Oral Pulse Rate 82 108 H Pulse Rate [Right Brachial] Respiratory Rate 20 Blood Pressure 117/82 99/79 L Blood Pressure [Right Arm] Blood Pressure Mean [Right Arm] Blood Pressure Source Automatic Cuff Blood Pressure Source [Right Arm] Blood Pressure Position [Right Arm] 02 Sat by Pulse Oximetry 95 Oxygen Delivery Method Room Air BiPAP Oxygen Flow Rate (LPM) Fraction of Inspired Oxygen 35 Lab Data Lab Results 10/14/25 14:15: Urine Color Yellow, Urine Appearance Clear, Urine pH 8.0, Ur Specific [place] 1.020, Urine Protein Negative, Urine Glucose (UA) Negative, Urine Ketones Negative, Urine Blood Negative, Urine Nitrate Negative, Urine Bilirubin Negative, Urine Urobilinogen 0.2, Ur Leukocyte Esterase Negative, Urine RBC None, Urine WBC None, Ur Squamous Epith Cells Occasional, Urine Bacteria Trace 10/14/25 14:59: WBC 9.4, RBC 4.06 L, Hgb 12.2, Hct 38.5, MCV 94.8, MCH 30.0, M CHC 31.7 L, RDW 15.2, Plt Count 305, MPV 10.4, Neut % (Auto) 67.7, Lymph % (Auto) 23.6, [place] % (Auto) 5.2, Eos % (Auto) 2.8, Baso % (Auto) 0.4, Neut # (Auto) 6.3, Lymph # (Auto) 2.2, [place] # (Auto) 0.5, Eos # (Auto) 0.3, Baso # (Auto) 0.0, Sodium 134 L, Potassium 4.2, Chloride 101, Carbon Dioxide 28, Anion Gap 9.2, BUN 14, Creatinine 1.00, Estimated Creat Clear 80, Estimated GFR 56 L, Est GFR ( Amer) 67, Glucose 113 H, Calcium 8.8, Magnesium 1.6, Total Bilirubin 0.6, AST 25, ALT 16, Alkaline Phosphatase 97, Troponin I < 0.01, N T-Pro-B Natriuret Pep 740 H, Total Protein 7.0, Albumin 3.8, Globulin 3.2, Albumin/Globulin Ratio 1.2, Lipase 102 10/14/25 15:16: Lactate 0.8 10/14/25 16:32: VBG pH 7.25 L, VBG pCO2 62.2 H, VBG pO2 48.8 H, VBG HCO3 26.7, V BG Total CO2 28.6 H, VBG O2 Saturation 76.8 H, VBG Base Excess -0.6, VBG Lactic Acid 0.8 10/14/25 17:16: Specimen Source Left radial, O2 % 35% + 10l neb, ABG pH 7.24 L*, ABG pCO2 63.1 H, ABG pO2 172.3 H, ABG HCO3 26.6 H, ABG Total CO2 28.6 H, ABG O2 Saturation 99, ABG Base Excess -0.7, Wili Test Acceptable, Vent Rate 18 Orders (Tests/Meds): ED MEDICATIONS Generic Name Dose Route Start Last Admin Trade Name Freq PRN Reason Stop Dose Admin Acetaminophen 650 mg 10/14/25 17:06 Acetaminophen 325mg Tab PO 11/13/25 17:05 Q4HP PRN Fever or Mild Pain (1-3) Albuterol Sulfate 2.5 mg 10/14/25 19:51 Albuterol 0.083% 2.5 Mg/3 Ml [facility] 11/13/25 19:50 Q2HP PRN Shortness Of Breath Albuterol/Ipratropium 3 ml 10/15/25 00:00 10/14/25 23:06 Ipratropium/Albuterol 3 Ml [facility] 11/14/25 00:00 3 ml Q6RT CRISTOPHER Administration Enoxaparin Sodium 40 mg 10/15/25 09:00 Enoxaparin 40mg/0.4ml Syringe SUBCUT 11/14/25 08:59 DAILY CRISTOPHER Hydromorphone HCl 0.5 mg 10/14/25 20:03 Hydromorphone 2mg/Ml Syringe IV 11/13/25 20:02 Q4HP PRN Severe Pain (7-10) Ceftriaxone Sodium 1 gm/ 50 mls @ 100 mls/hr 10/14/25 20:15 10/14/25 23:30 Sodium Chloride IV 10/24/25 20:14 Infused Q24H CRISTOPHER Infusion Azithromycin 500 mg/ Sodium 250 mls @ 250 mls/hr 10/14/25 20:15 10/14/25 22:23 Chloride IV 10/24/25 20:14 Infused Q24H CRISTOPHER Infusion Insulin Human Lispro 0 unit 10/14/25 21:00 10/14/25 21:18 Humalog 100 Units/Ml 10ml Vial (Ssi) SUBCUT 11/13/25 20:59 Not Given ACHS CRISTOPHER Protocol Nicotine 21 mg 10/14/25 17:06 Nicotine 21mg/24hr Patch TD 11/13/25 17:05 DAILYP PRN Nicotine Cravings Oxycodone HCl 5 mg 10/14/25 20:01 10/14/25 20:40 Oxycodone 5mg Immediate Release Tablet PO 11/13/25 20:00 5 mg Q6HP PRN Administration Severe Pain (7-10) Pantoprazole Sodium 40 mg 10/14/25 21:00 10/14/25 20:40 Pantoprazole 40mg Tablet PO 11/13/25 20:59 40 mg HS CRISTOPHER Administration Discontinued Medications Generic Name Dose Route Start Last Admin Trade Name Freq PRN Reason Stop Dose Admin Acetaminophen 500 mg 10/14/25 16:32 10/14/25 16:44 Acetaminophen 500mg Tab PO 10/14/25 16:33 500 mg ONCE ONE Administration Albuterol/Ipratropium 6 ml 10/14/25 16:50 10/14/25 17:20 Ipratropium/Albuterol 3 Ml Neb IH 10/14/25 16:51 6 ml ONCE ONE Administration Hydromorphone HCl 0.5 mg 10/14/25 14:49 10/14/25 15:03 Hydromorphone 2mg/Ml Syringe IV 10/14/25 14:50 0.5 mg ONCE ONE Administration Hydromorphone HCl 0.5 mg 10/14/25 15:21 10/14/25 15:30 Hydromorphone 2mg/Ml Syringe IV 10/14/25 15:22 0.5 mg ONCE ONE Administration Iopamidol 80 ml 10/14/25 15:38 10/14/25 15:39 Iopamidol-370 (76%);100ml Bottle IV 10/14/25 15:39 80 ml ONCE ONE Administration Methylprednisolone Sodium Succinate 125 mg 10/14/25 16:51 10/14/25 16:59 Methylprednisolone Sod Succ 125mg Vial IV 10/14/25 16:52 125 mg ONCE ONE Administration Ondansetron HCl 4 mg 10/14/25 14:49 10/14/25 15:03 Ondansetron 4mg/2ml Vial IV 10/14/25 14:50 4 mg ONCE ONE Administration Sodium Chloride 50 ml 10/14/25 15:38 10/14/25 15:40 0.9 % Sodium Chloride 50 Ml Vial IV 10/14/25 15:39 50 ml ONCE ONE Administration Sodium Chloride 10 ml 10/14/25 15:38 10/14/25 15:39 Sodium Chloride 0.9% 10ml Syr (Rad Only) IV 10/14/25 15:39 10 ml ONCE ONE Administration ORDERS Category Date Time Status CT abdomen pelvis w con Stat Cat Scan 10/14/25 14:[address] angio chest PE protocol Stat Cat Scan 10/14/25 14:46 Completed XR chest portable Stat Exams 10/14/25 14:47 Completed Complete Blood Count Auto Diff AMLAB Lab 10/15/25 06:00 Ordered Complete Blood Count Auto Diff Stat Lab 10/14/25 14:59 Completed Comprehensive Metabolic Panel AMLAB Lab 10/15/25 06:00 Ordered Comprehensive Metabolic Panel Stat Lab 10/14/25 14:59 Completed Lactic Acid Stat Lab 10/14/25 15:16 Completed Lipase Stat Lab 10/14/25 14:59 Completed Magnesium AMLAB Lab 10/15/25 06:00 Ordered Magnesium Stat Lab 10/14/25 14:59 Completed NT Pro Brain Natriuretic Pep. Stat Lab 10/14/25 14:59 Completed Troponin I Q3H Lab 10/14/25 19:32 Completed Troponin I Q3H Lab 10/14/25 22:41 Completed Troponin I Stat Lab 10/14/25 14:59 Completed Urinalysis and Microscopic Stat Lab 10/14/25 14:15 Completed Blood Culture Stat Micro 10/14/25 15:19 Received ABG [Arterial Blood Gas] Stat RT 10/14/25 17:16 Results VBG [Venous Blood Gas] Stat RT 10/14/25 16:32 Completed ECG Data Tracing #1: I reviewed this ECG and interpreted as documented below: EKG personally interpreted by me demonstrates normal sinus rhythm at a rate of 73 bpm, normal axis, no [place] prolongation, narrow QRS, no QTc prolongation. No ST elevation or depression. No overt signs of ischemia or arrhythmia. Critical Care <CECIL Cano - Last Filed: 10/14/25 18:55> Critical Care Time Critical Care Time: Yes Attestation: On 10/14/25, the high probability of a clinically significant, sudden or life threatening deterioration of the following system(s) required my full and direct attention, intervention and personal management. The time I documented below is in addition to time spent performing reported procedures but includes the following listed in this critical care notation. Total Time Total Critical Care Time: 30 <Jean Lawrence DO - Last Filed: 10/15/25 01:10> Total Time Total Critical Care Time: 43
--- NOTE | 2025-10-14 14:46 | CT_ITS ---
FINAL REPORT TECHNIQUE: Postcontrast axial images of the chest were performed in a CTA protocol. This study was performed with techniques to keep radiation doses as low as reasonably achievable, (ALARA). Individualized dose reduction technique using automated exposure control or adjustment of mA and/or kV according to the patient's size were employed. CLINICAL HISTORY: Dyspnea, cough, recent hx of PNA COMPARISON: No prior exam was submitted for comparison. FINDINGS: The heart is moderately enlarged. No pleural or pericardial effusion is identified. The thoracic aorta is normal in caliber with no focal aneurysm or dissection identified. There is no filling defect to suggest pulmonary embolism. There is chronic scarring in the right greater than left lungs. There is mild dependent atelectasis, right greater than left. There is no consolidation to indicate pneumonia. Scattered, mildly enlarged lymph nodes are seen. There is a partially calcified, right paratracheal lymph node measuring up to 16 mm. There is a right infrahilar lymph node measuring 14 mm. The images of the upper abdomen demonstrate a right renal cyst. IMPRESSION: No evidence for PE on this exam. Chronic lung changes without evidence of pneumonia. Moderate cardiomegaly. Mild adenopathy, considered benign reactive. Reviewed, Interpreted and Dictated by Suha Bond MD Transcribed by Zuly Fowler Authenticated and [facility]
--- NOTE | 2025-10-14 14:46 | CT_ITS ---
FINAL REPORT TECHNIQUE: After the administration of intravenous contrast, axial images were obtained through the abdomen and pelvis by computed tomography. This study was performed with technique to keep radiation doses as low as reasonably achievable, (ALARA). Individualized dose reduction techniques using automated exposure control or adjustment of the MA and/or KV according to the patient's size were employed. CLINICAL HISTORY: hx of pancreatitis, N, LUQ pain COMPARISON: No prior exams submitted for comparison. FINDINGS: Abdomen: The liver is normal in size and attenuation. Patient is status postcholecystectomy. The spleen is unremarkable. The adrenals are normal. The pancreas is unremarkable. There is a 34 mm right renal cyst. Otherwise, the kidneys enhance appropriately. The aorta is normal in caliber. There is no free fluid or adenopathy. There is a small umbilical hernia. No evidence of bowel obstruction. Pelvis: There is moderate sigmoid diverticulosis. The appendix is not identified and was likely removed at time of hysterectomy. The urinary bladder is unremarkable. There is no free fluid or adenopathy. Pelvic floor prolapse is noted. IMPRESSION: No acute intra-abdominal process. Reviewed, Interpreted and Dictated by Suha Bond MD Transcribed by Zuly Fowler Authenticated and [facility]
--- NOTE | 2025-10-14 14:47 | XR_ITS ---
FINAL REPORT TECHNIQUE: Single view chest CLINICAL HISTORY: SOA, cough, congestion COMPARISON: 02/18/2025 FINDINGS: A single view of the chest was obtained. The heart is enlarged. A right chest port is in place. The lungs are clear. There is no pneumothorax. IMPRESSION: No acute cardiopulmonary process. Reviewed, Interpreted and Dictated by Suha Bond MD Transcribed by Zuly Fowler Authenticated and [facility]
[2025-10-14 14:51] LABS: Microscopic, Urine URINE MICROSCOPIC (MICROSCOPIC)
[2025-10-14 14:54] LABS: Bilirubin,Urine Negative (Negative); Color,Urine YELLOW (Yellow); Glucose,Urine (UA) Negative (Negative); Ketones,Urine Negative (Negative); Leukocyte Esterase,Urine Negative (Negative); PH,Urine 8.0 (5.0-8.5); Protein,Urine Negative (Negative); Specific Gravity, Urine 1.020 (1.005-1.030); Urobilinogen,Urine 0.2 EU/dl (0.2)
[2025-10-14] MEDS: ONDANSETRON 4MG/2ML VIAL 4 MG IV (15:03)
[2025-10-14] MEDS: HYDROMORPHONE 2MG/ML SYRINGE 0.5 MG IV ×2 (15:03→15:30)
[2025-10-14 15:04] LABS: Bacteria,Urine Trace /lpf; Squamous Epithelial Cell,Urine Occasional #/hpf (0-5)
[2025-10-14 15:11] LABS: Hematocrit 38.5 % (37.0-47.0); Hemoglobin 12.2 g/dL (12.2-16.2); Immature Granulocytes % 0.3 %; Mean Corpuscular HGB Conc 31.7 g/dL (31.8-35.4); Mean Corpuscular Hemoglobin 30.0 pg (27.0-31.2); Mean Corpuscular Volume 94.8 fl (81-99); Nucleated Red Blood Cells % 0 %; Platelet Count 305 K/mm3 (142-424); Red Blood Count 4.06 M/mm3 (4.20-5.40); Red Cell Distribution Width-SD 53.0 fL; White Blood Count 9.4 K/mm3 (4.8-10.8)
--- NOTE | 2025-10-14 15:15 | ECG_ITS ---
APPROVED REPORT Exam: Resting ECG HR:73 bpm ECG Measurements Heart Rate 73 AXES DE 184 P 61 QRSd 85 QRS 62 QT 434 T 64 QTc 460 Conclusion SINUS RHYTHM NORMAL ECG UNCONFIRMED REPORT Normal sinus rhythm. No ST elevation or depression. QTc of 460 Electronically signed by : AKSHAT PERKINS, 10/15/2025 07:01:55
[2025-10-14 15:27] LABS: Alanine Aminotransferase 16 U/L (12-78); Albumin Level 3.8 g/dl (3.5-5.0); Albumin/Globulin Ratio 1.2 (1.1-1.8); Alkaline Phosphatase 97 U/L (38-126); Anion Gap 9.2 mEq/L (5-15); Aspartate Amino Transferase 25 U/L (14-36); Bilirubin,Total 0.6 mg/dl (0.2-1.3); Blood Urea Nitrogen 14 mg/dl (7-17); Calcium 8.8 mg/dl (8.4-10.2); Carbon Dioxide 28 mmol/L (22.0-30.0); Chloride 101 mmol/L (98-107); Creatinine Clearance Estimated 80 mL/min (50-200); Creatinine,Serum 1.00 mg/dl (0.52-1.04); Estimated Glomerular Filt Rate 56 ml/min (>60); GFR (African American) 67 ML/MIN (>60); Globulin 3.2 g/dL (1.3-3.2); Glucose 113 mg/dl (74-100); Lipase 102 U/L (23-300); Magnesium 1.6 mg/dl (1.6-2.3); Potassium 4.2 mmoL/L (3.5-5.1); Sodium 134 mmol/L (136-145); Total Protein,Serum 7.0 g/dl (6.3-8.2)
[2025-10-14] MEDS: SODIUM CHLORIDE 0.9% 10ML SYR (RAD ONLY) 10 ML IV (15:39)
[2025-10-14] MEDS: IOPAMIDOL-370 (76%);100ML BOTTLE 80 ML IV (15:39)
[2025-10-14 15:40] LABS: NT Pro Brain Natriuretic Pep. 740 pg/mL (0-125); Troponin I < 0.01 ng/ml (0.00-0.034)
[2025-10-14] MEDS: 0.9 % SODIUM CHLORIDE 50 ML VIAL IV (15:40)
[2025-10-14 16:39] LABS: Lactate Venous 0.8 mmol/L (0.4-2.0); VBG HCO3 26.7 mmol/L (23-30); VBG PH 7.25 mmol/L (7.31-7.41); VBG PO2 48.8 mmol/L (28-40)
[2025-10-14 16:42] LABS: VBG PCO2 62.2 mmol/L (35-51)
--- NOTE | 2025-10-14 16:43 | PC.NURSE ---
VBG RESULTS RECEIVED, PT NAME AND R/N. DR BURT NOTIFIED
[2025-10-14] MEDS: ACETAMINOPHEN 500MG TAB 500 MG PO (16:44)
[2025-10-14] MEDS: METHYLPREDNISOLONE SOD SUCC 125MG VIAL 125 MG IV (16:59)
--- NOTE | 2025-10-14 17:10 | EXP.HP ---
History of Present Illness *Admission Date: 10/14/25 *Reason for visit:: dyspnea [facility] Disclaimer: The information contained in this section may have been updated after the patient was seen, as this information can be updated by other users. Medical History Internal hemorrhoid, bleeding Multiple falls Pancreatic divisum Afib Esophageal dilatation Multiple lung nodules on CT Pulmonary emphysema Hypocalcemia Hypokalemia Acidosis, lactic GI bleed Noncompliance with medication regimen Tobacco dependence in remission Pancreas divisum of [place] pancreas Encounter for pre-operative cardiovascular clearance Orthopnea CHF (congestive heart failure) Pancreatitis Nausea vomiting and diarrhea Exhausted vascular access Rib fractures Chronic hypoxemic respiratory failure Coronary artery disease COPD (chronic obstructive pulmonary disease) HLD (hyperlipidemia) Diabetes Anxiety and depression TIA (transient ischemic attack) History of stroke History of multiple cerebrovascular accidents (CVAs) History of class III angina pectoris Typical angina Dyspnea History of pancreatitis History of CVA (cerebrovascular accident) Surgical History History of banding of hemorrhoid History of biliary duct stent placement History of hysterectomy History of cholecystectomy History of coronary artery stent placement Family History Other Family history of cancer Family history of diabetes mellitus Social History (Updated 07/25/25 @ 06:30 by Jennfier Weber RN) Smoking Status: Current every day smoker tobacco type: e-cigarettes years smoked: 45 how long ago did patient quit smokin years ago quit status: quit date established second hand exposure: No alcohol intake: never counseling provided: none substance use type: marijuana and crack/cocaine current occupational status: retired, disabled and other Travel in the last 8 weeks?: None household members: significant other housing: house marital status: number of children: 2 current occupational exposures/hazards: No caffeine: Yes Have you lived/traveled outside [place] in past 30 days?: No Contact w/someone who lives/traveled outside US past 30 days?: No Exposure to someone with infectious disease in past 14 days?: No Do you have a fever (greater than 100.4 F or 38 C)?: No Have you tested positive for COVID-19?: No Exposed to someone with COVID-19 in past 14 days?: No Do you have a sore throat?: No Do you have a cough?: No Do you have any weakness?: No Do you have any diarrhea?: No Are you experiencing any unusual bleeding?: No Do you have any muscle aches/pain?: No Do you have any abdominal pain?: No Are you experiencing loss of taste or smell?: No Other Medical History Have you received the Flu Vaccine for this season: No Have you received the Pneumonia Vaccine: No Meds Home Medications and Allergies Home Medications ?Medication ?Instructions ?Recorded ?Confirmed ?Type atorvastatin 40 mg tablet 40 mg PO HS #90 tabs 02/07/25 07/25/25 Rx pantoprazole 40 mg tablet,delayed 40 mg PO HS 30 days #30 tabs 04/06/25 07/25/25 Rx release potassium chloride 10 mEq 10 meq PO DAILY #90 tabs 04/13/25 07/25/25 Rx tablet,extended release duloxetine 60 mg capsule,delayed 60 mg PO BID 90 days #180 caps 04/18/25 07/25/25 Rx release rivaroxaban 20 mg tablet (Xarelto) 20 mg PO QPMWITHMEAL 05/12/25 07/25/25 History polyethylene glycol 3350 17 17 g PO DAILY PRN constiptation 05/25/25 07/25/25 Rx gram/dose oral powder (Miralax) #510 grams cholecalciferol (vitamin D3) 1,250 1,250 mcg PO FR 05/26/25 07/25/25 History mcg (50,000 unit) capsule gabapentin 600 mg tablet 600 mg PO BID 05/26/25 07/25/25 History ropinirole 0.25 mg tablet 0.25 mg PO HS 05/26/25 07/25/25 History promethazine 12.5 mg tablet 12.5 mg PO Q6HP PRN Nausea And 06/23/25 07/25/25 Rx Vomiting #60 tabs verapamil 120 mg tablet,extended 120 mg PO BID 06/23/25 07/25/25 History release trazodone 100 mg tablet 100 mg PO HS #90 tabs 07/08/25 07/25/25 Rx montelukast 10 mg tablet 10 mg PO HS #30 tabs 07/18/25 07/25/25 Rx ranolazine 500 mg tablet,extended 500 mg PO BID 30 days #60 tabs 07/18/25 07/25/25 Rx release,12 hr cefdinir 300 mg capsule 300 mg PO BID 4 days #8 caps 07/25/25 Rx dicyclomine 10 mg capsule 40 mg (4 x 10 mg) PO QID PRN 07/25/25 Rx abdominal pain #30 caps furosemide 20 mg tablet 20 mg PO DAILY 07/25/25 07/25/25 History levothyroxine 100 mcg tablet 100 mcg PO DAILY 07/25/25 07/25/25 History aiiwhp-ozvpomik-sgbtyum 2 cap PO AC 30 days #180 caps 07/25/25 Rx (pork)36,000-114,000-180k unit capsule,del rel (Creon) ondansetron 4 mg disintegrating 4 mg PO Q8HP PRN nausea and 07/25/25 07/25/25 History tablet vomiting oxycodone 5 mg tablet 7.5 mg (1.5 x 5 mg) PO Q6H PRN 07/25/25 Rx pain 3 days #18 tabs magnesium oxide 400 mg (241.3 mg 400 mg PO BID #60 tabs 08/26/25 Rx magnesium) tablet ropinirole 0.25 mg tablet 0.25 mg PO HS #30 tabs 09/22/25 Rx ferrous sulfate 325 mg (65 mg 325 mg PO BID #60 tabs 09/26/25 Rx iron) tablet metformin 1,000 mg tablet 1,000 mg PO BIDWMEAL #60 tabs 09/26/25 Rx quetiapine 50 mg tablet (Seroquel) 50 mg PO DAILY #90 tabs 09/26/25 Rx alprazolam 1 mg tablet 1 mg PO BID PRN anxiety #30 tabs 10/12/25 10/12/25 Rx New Prescriptions to Start Prescriptions: Allergies Allergy/AdvReac Type Severity Reaction Status Date / Time codeine (CODEINE) Allergy Intermediate N/V Verified 06/23/25 13:14 ketorolac (KETOROLAC) Allergy Intermediate Hives Verified 06/23/25 13:14 meperidine (MEPERIDINE) Allergy Intermediate Hives Verified 06/23/25 13:14 tramadol (TRAMADOL) Allergy Intermediate Hives Verified 06/23/25 13:14 ciprofloxacin AdvReac Severe Interacts Verified 06/23/25 13:14 with cymbalta Exam Data for Last 24 hours Vital signs and Labs for Last 24 Hours: Temp Pulse Resp BP Pulse Ox O2 Del Method O2 Flow Rate 98.4 F 87 20 121/80 86 L Nasal Cannula 6 10/14/25 14:21 10/14/25 16:30 10/14/25 14:21 10/14/25 16:30 10/14/25 16:30 10/14/25 16:30 10/14/25 16:30 Laboratory Results - last 24 hr 10/14/25 14:15: Urine Color Yellow, Urine Appearance Clear, Urine pH 8.0, Ur Specific [place] 1.020, Urine Protein Negative, Urine Glucose (UA) Negative, Urine Ketones Negative, Urine Blood Negative, Urine Nitrate Negative, Urine Bilirubin Negative, Urine Urobilinogen 0.2, Ur Leukocyte Esterase Negative, Urine RBC None, Urine WBC None, Ur Squamous Epith Cells Occasional, Urine Bacteria Trace 10/14/25 14:59: WBC 9.4, RBC 4.06 L, Hgb 12.2, Hct 38.5, MCV 94.8, MCH 30.0, MCHC 31.7 L, RDW 15.2, Plt Count 305, MPV 10.4, Neut % (Auto) 67.7, Lymph % (Auto) 23.6, [place] % (Auto) 5.2, Eos % (Auto) 2.8, Baso % (Auto) 0.4, Neut # (Auto) 6.3, Lymph # (Auto) 2.2, [place] # (Auto) 0.5, Eos # (Auto) 0.3, Baso # (Auto) 0.0, Sodium 134 L, Potassium 4.2, Chloride 101, Carbon Dioxide 28, Anion Gap 9.2, BUN 14, Creatinine 1.00, Estimated Creat Clear 80, Estimated GFR 56 L, Est GFR ( Amer) 67, Glucose 113 H, Calcium 8.8, Magnesium 1.6, Total Bilirubin 0.6, AST 25, ALT 16, Alkaline Phosphatase 97, Troponin I < 0.01, NT-Pro-B Natriuret Pep 740 H, Total Protein 7.0, Albumin 3.8, Globulin 3.2, Albumin/Globulin Ratio 1.2, Lipase 102 10/14/25 15:16: Lactate 0.8 10/14/25 16:32: VBG pH 7.25 L, VBG pCO2 62.2 H, VBG pO2 48.8 H, VBG HCO3 26.7, VBG Total CO2 28.6 H, VBG O2 Saturation 76.8 H, VBG Base Excess -0.6, VBG Lactic Acid 0.8 I & O for Last 24 hours: Intake & Output 10/11/25 10/12/25 10/13/25 10/14/25 23:59 23:59 23:59 23:59 Weight 90.718 kg
[2025-10-14 17:18] LABS: ABG HCO3 26.6 mmhg (22.0-26.0); ABG PH 7.24 mmol/L (7.35-7.45); ABG PO2 172.3 mmhg (80-100); ABG TCO2 28.6 mmhg (23-27)
[2025-10-14] MEDS: IPRATROPIUM/ALBUTEROL 3 ML NEB 6 ML IH (17:20)
[2025-10-14 17:21] LABS: Source Left Radial
[2025-10-14 17:23] LABS: ABG PCO2 63.1 mmhg (35.0-45.0)
--- NOTE | 2025-10-14 17:31 | PC.NURSE ---
[facility] NOTIFIED OF ADMISSION
--- NOTE | 2025-10-14 17:44 | PC.NURSE ---
called to give report on patient. room is not available at this time. will call back
--- NOTE | 2025-10-14 18:58 | PC.NURSE ---
report called to darwin chacko
--- NOTE | 2025-10-14 19:06 | PC.NURSE ---
190 pt arrived on unit with ER staff
[2025-10-14 20:04] LABS: Troponin I < 0.01 ng/ml (0.00-0.034)
--- NOTE | 2025-10-14 20:30 | P.HP_ITS ---
<Statement entered by Chandler Cody MD - 10/15/25 12:22> Rounded on patient after nurse practitioner. Personally examined and interviewed patient. Agree with exam findings and care plan as documented. History of Present Illness *Admission Date: 10/14/25 *Reason for visit:: Shortness of breath *History of present illness: 65-year-old female patient with history of COPD as well as congestive heart failure presents to the ER with complaints of shortness of breath and nonproductive cough. She also reports chills and bodyaches. Denies chest pain. Has had symptoms for a couple of days. Reports that she was recently admitted at [facility] for double pneumonia . Initial O2 sat was 97% on 3 L. She does wear 2 to 3 L nasal cannula at home. Blood gas did show a respiratory acidosis. She was placed on BiPAP in the ER and is tolerating that. She does use CPAP at home however she reports a recent change in insurance and she has had trouble getting a CPAP machine. She also complains of abdominal pain. She does have a history of chronic pancreatitis. Pain is in the epigastric area. States this is about her baseline, maybe a little worse. In the ER she received 2 doses of hydromorphone, Zofran, nebulizer and steroid. [facility] Disclaimer: The information contained in this section may have been updated after the patient was seen, as this information can be updated by other users. Medical History Internal hemorrhoid, bleeding Multiple falls Pancreatic divisum Afib Esophageal dilatation Multiple lung nodules on CT Pulmonary emphysema Hypocalcemia Hypokalemia Acidosis, lactic GI bleed Noncompliance with medication regimen Tobacco dependence in remission Pancreas divisum of [place] pancreas Encounter for pre-operative cardiovascular clearance Orthopnea CHF (congestive heart failure) Pancreatitis Nausea vomiting and diarrhea Exhausted vascular access Rib fractures Chronic hypoxemic respiratory failure Coronary artery disease COPD (chronic obstructive pulmonary disease) HLD (hyperlipidemia) Diabetes Anxiety and depression TIA (transient ischemic attack) History of stroke History of multiple cerebrovascular accidents (CVAs) History of class III angina pectoris Typical angina Dyspnea History of pancreatitis History of CVA (cerebrovascular accident) Surgical History History of banding of hemorrhoid History of biliary duct stent placement History of hysterectomy History of cholecystectomy History of coronary artery stent placement Family History Other Family history of cancer Family history of diabetes mellitus Social History Smoking Status: Current every day smoker tobacco type: e-cigarettes years smoked: 45 how long ago did patient quit smokin years ago quit status: quit date established second hand exposure: No alcohol intake: never counseling provided: none substance use type: marijuana and crack/cocaine current occupational status: retired, disabled and other Travel in the last 8 weeks?: None household members: significant other housing: house marital status: number of children: 2 current occupational exposures/hazards: No caffeine: Yes Have you lived/traveled outside US in past 30 days?: No Contact w/someone who lives/traveled outside US past 30 days?: No Exposure to someone with infectious disease in past 14 days?: No Do you have a fever (greater than 100.4 F or 38 C)?: No Have you tested positive for COVID-19?: No Exposed to someone with COVID-19 in past 14 days?: No Do you have a sore throat?: No Do you have a cough?: No Do you have any weakness?: No Do you have any diarrhea?: No Are you experiencing any unusual bleeding?: No Do you have any muscle aches/pain?: No Do you have any abdominal pain?: No Are you experiencing loss of taste or smell?: No Other Medical History Have you received the Flu Vaccine for this season: Yes Have you received the Pneumonia Vaccine: Yes Review of Systems Constitutional Constitutional: Reports body ache(s), Reports chills and Denies fever(s) Eyes Eyes: Reports system reviewed and no additional complaints, except as documented ENT Ears, Nose, Mouth, and Throat: Reports system reviewed and no additional complaints, except as documented *Cardiovascular Cardiovascular: Denies chest pain, Reports dyspnea and Denies leg edema *Respiratory Respiratory: Reports cough, Reports dyspnea and Denies excessive phlegm production *Gastrointestinal Gastrointestinal: Reports abdominal pain (Epigastric pain going through to her back.), Denies diarrhea, Reports nausea and Denies vomiting *Genitourinary Genitourinary: Denies difficulty voiding and Denies dysuria *Musculoskeletal Musculoskeletal: Denies back pain *Neurologic Neurologic: Denies abnormal speech and Denies confusion Psychiatric Psychiatric: Denies confusion Meds Home Medications and Allergies Home Medications ?Medication ?Instructions ?Recorded ?Confirmed ?Type atorvastatin 40 mg tablet 40 mg PO HS #90 tabs 5 07/25/25 Rx pantoprazole 40 mg tablet,delayed 40 mg PO HS 30 days #30 tabs 04/06/25 07/25/25 Rx release potassium chloride 10 mEq 10 meq PO DAILY #90 tabs 07/25/25 Rx tablet,extended release duloxetine 60 mg capsule,delayed 60 mg PO BID 90 days #180 caps 04/18/25 07/25/25 Rx release rivaroxaban 20 mg tablet (Xarelto) 20 mg PO QPMWITHMEA L 05/12/25 07/25/25 History polyethylene glycol 3350 17 17 g PO DAILY PRN constipt ation 05/25/25 07/25/25 Rx gram/dose oral powder (Miralax) #510 grams cholecalciferol (vitamin D3) 1,250 1,250 mcg PO FR 07/25/25 History mcg (50,000 unit) capsule gabapentin 600 mg tablet 600 mg PO BID 05/26/2507/25 History ropinirole 0.25 mg tablet 0.25 mg PO HS 05/26/2507/25 History promethazine 12.5 mg tablet 12.5 mg PO Q6HP PRN Nausea And 06/23/25 07/25/25 Rx Vomiting #60 tabs verapamil 120 mg tablet,extended 120 mg PO BID 5 07/25/25 History release trazodone 100 mg tablet 100 mg PO HS #90 tabs 07/25/25 Rx montelukast 10 mg tablet 10 mg PO HS #30 tabs 5 07/25/25 Rx ranolazine 500 mg tablet,extended 500 mg PO BID 30 day s #60 tabs 07/18/25 07/25/25 Rx release,12 hr cefdinir 300 mg capsule 300 mg PO BID 4 days #8 caps 07/25/25 Rx dicyclomine 10 mg capsule 40 mg (4 x 10 mg) PO QID PRN 07/25/25 Rx abdominal pain #30 caps furosemide 20 mg tablet 20 mg PO DAILY 07/25/25 08/2 04/24 History levothyroxine 100 mcg tablet 100 mcg PO DAILY 07/25/25 07/25/25 History fzzldf-dokyrwkt-xkhcpdz 2 cap PO AC 30 days #180 cap s 07/25/25 Rx (pork)36,000-114,000-180k unit capsule,del rel (Creon) ondansetron 4 mg disintegrating 4 mg PO Q8HP PRN nause a and 07/25/25 07/25/25 History tablet vomiting oxycodone 5 mg tablet 7.5 mg (1.5 x 5 mg) PO Q6H P RN 07/25/25 Rx pain 3 days #18 tabs magnesium oxide 400 mg (241.3 mg 400 mg PO BID #60 tab s 08/26/25 Rx magnesium) tablet ropinirole 0.25 mg tablet 0.25 mg PO HS #30 tabs 09/22 Rx ferrous sulfate 325 mg (65 mg 325 mg PO BID #60 tabs 1 Rx iron) tablet metformin 1,000 mg tablet 1,000 mg PO BIDWMEAL #60 tab s 09/26/25 Rx quetiapine 50 mg tablet (Seroquel) 50 mg PO DAILY #90 tabs 09/26/25 Rx alprazolam 1 mg tablet 1 mg PO BID PRN anxiety #30 tabs 10/12/25 10/12/25 Rx New Prescriptions to Start Prescriptions: Allergies Allergy/AdvReac Type Severity Reaction Status Date / Time codeine (CODEINE) Allergy Intermediate N/V Verified 06/23/25 13:14 ketorolac (KETOROLAC) Allergy Intermediate Hives Verified 06/23/25 13:14 meperidine (MEPERIDINE) Allergy Intermediate Hives Verified 06/23/25 13:14 tramadol (TRAMADOL) Allergy Intermediate Hives Verified 06/23/25 13:14 ciprofloxacin AdvReac Severe Interacts Verified 06/23/25 13:14 with cymbalta Exam Data for Last 24 hours Vital signs and Labs for Last 24 Hours: Temp Pulse Resp BP Pulse Ox O2 Del Method O2 Flow Rate 98.6 F 110 H 22 120/80 88 L Nasal Cannula 6 10/14/25 18:59 10/14/25 20:00 10/14/25 20:00 10/14/25 20:00 10/14/25 20:00 10/14/25 20:00 10/14/25 20:00 FiO2 35 10/14/25 17:24 Laboratory Results - last 24 hr 10/14/25 14:15: Urine Color Yellow, Urine Appearance Clear, Urine pH 8.0, Ur Specific [place] 1.020, Urine Protein Negative, Urine Glucose (UA) Negative, Urine Ketones Negative, Urine Blood Negative, Urine Nitrate Negative, Urine Bilirubin Negative, Urine Urobilinogen 0.2, Ur Leukocyte Esterase Negative, Urine RBC None, Urine WBC None, Ur Squamous Epith Cells Occasional, Urine Bacteria Trace 10/14/25 14:59: WBC 9.4, RBC 4.06 L, Hgb 12.2, Hct 38.5, MCV 94.8, MCH 30.0, MCHC 31.7 L, RDW 15.2, Plt Count 305, MPV 10.4, Neut % (Auto) 67.7, Lymph % (Auto) 23.6, [place] % (Auto) 5.2, Eos % (Auto) 2.8, Baso % (Auto) 0.4, Neut # (Auto) 6.3, Lymph # (Auto) 2.2, [place] # (Auto) 0.5, Eos # (Auto) 0.3, Baso # (Auto) 0.0, Sodium 134 L, Potassium 4.2, Chloride 101, Carbon Dioxide 28, Anion Gap 9.2, BUN 14, Creatinine 1.00, Estimated Creat Clear 80, Estimated GFR 56 L, Est GFR ( Amer) 67, Glucose 113 H, Calcium 8.8, Magnesium 1.6, Total Bilirubin 0.6, AST 25, ALT 16, Alkaline Phosphatase 97, Troponin I < 0.01, NT-Pro-B Natriuret Pep 740 H, Total Protein 7.0, Albumin 3.8, Globulin 3.2, Albumin/Globulin Ratio 1.2, Lipase 102 10/14/25 15:16: Lactate 0.8 10/14/25 16:32: VBG pH 7.25 L, VBG pCO2 62.2 H, VBG pO2 48.8 H, VBG HCO3 26.7, VBG Total CO2 28.6 H, VBG O2 Saturation 76.8 H, VBG Base Excess -0.6, VBG Lactic Acid 0.8 10/14/25 17:16: Specimen Source Left radial, O2 % 35% + 10l neb, ABG pH 7.24 L*, ABG pCO2 63.1 H, ABG pO2 172.3 H, ABG HCO3 26.6 H, ABG Total CO2 28.6 H, ABG O2 Saturation 99, ABG Base Excess -0.7, Wili Test Acceptable, Vent Rate 18 10/14/25 19:32: Troponin I < 0.01 I & O for Last 24 hours: Intake & Output 10/11/25 10/12/25 10/13/25 10/14/25 23:59 23:59 23:59 23:59 Weight 90.718 kg Constitutional Constitutional: mild distress *Routine HEENT Exam Head: Present normocephalic and atraumatic Eye: Present PERRL ENT: Present mucous membranes moist *Routine Neck Exam Neck: Present supple *Routine Respiratory Exam Respiratory: Present decreased breath sounds; Absent normal respiratory effort *Routine Cardiovascular Exam Cardiovascular: Present Normal S1, Normal S2 and irregularly irregular *Routine Abdominal Exam Abdominal: Present soft, normoactive bowel sounds and tenderness (Epigastric tenderness to palpation) *Routine Rectal Exam Rectal:: deferred *Routine Genitalia Exam Genitalia:: deferred *Routine Extremities Exam Extremities: Present pulses intact; Absent edema *Routine Skin Exam Skin: Present dry and warm *Routine Neurological Exam Neurological: Present alert, oriented X3 and moving all extremities Assessment and Plan *Assessment and plan (1) Acute on chronic respiratory failure with hypoxia and hypercapnia: Status: Acute Category: Medical Code(s): J96.21 - Acute and chronic respiratory failure with hypoxia; J96.22 - Acute and chronic respiratory failure with hypercapnia (2) COPD exacerbation: Status: Acute Category: Medical Code(s): J44.1 - Chronic obstructive pulmonary disease with (acute) exacerbation (3) Chronic pancreatitis: Status: Acute Qualifiers: Pancreatitis type: unspecified pancreatitis type Qualified Code(s): K86.1 - Other chronic pancreatitis Category: Medical Code(s): K86.1 - Other chronic pancreatitis (4) PAF (paroxysmal atrial fibrillation): Status: Acute Category: Medical Code(s): I48.0 - Paroxysmal atrial fibrillation (5) (HFpEF) heart failure with preserved ejection fraction: Status: Acute Qualifiers: Heart failure chronicity: chronic Qualified Code(s): I50.32 - Chronic diastolic (congestive) heart failure Category: Medical Code(s): I50.30 - Unspecified diastolic (congestive) heart failure (6) Diabetes mellitus: Status: Chronic Qualifiers: Diabetes mellitus complication status: without complication Diabetes mellitus fci insulin use: without terminal press operator use Diabetes mellitus type: type 2 Qualified Code(s): E11.9 - Type 2 diabetes mellitus without complications Category: Medical Code(s): E11.9 - Type 2 diabetes mellitus without complications (7) Hyperlipidemia: Status: Chronic Qualifiers: Hyperlipidemia type: mixed hyperlipidemia Qualified Code(s): E78.2 - Mixed hyperlipidemia Category: Medical Code(s): E78.5 - Hyperlipidemia, unspecified (8) Hypertension: Status: Chronic Qualifiers: Hypertension type: essential hypertension Qualified Code(s): I10 - Essential (primary) hypertension Category: Medical Code(s): I10 - Essential (primary) hypertension Plan 65-year-old female patient presents to the ER with shortness of breath. Workup revealed hypercapnic respiratory failure. She does have chronic hypoxic respiratory failure for which she uses 3 L of oxygen by nasal cannula at home. She also has history of FLACO and has been noncompliant with her CPAP. She states she has had a change in insurance and is unable to get a machine. After treatment with steroids and nebulizers she was then placed on BiPAP. Case was discussed by Dr. Cody with the ER physician, Dr. Cody agreed to admit this patient for further treatment. She will be admitted to the ICU and we will continue BiPAP as well as nebulizers. Will monitor blood gases and adjust BiPAP accordingly. Imaging does not show evidence of pneumonia however since she is in the ICU for a COPD exacerbation we will give Rocephin and Zithromax. She does have a recent hospitalization so more broad coverage was considered however she does not appear toxic so we will hold off on that. Chronic pancreatitis?patient does have history of chronic pancreatitis it does not appear she is on pancreatic enzymes any longer. She takes gabapentin as well as Xanax at home. She has received 2 doses of Dilaudid here in the ER. She is asking again for pain medication. Discussed with her the effect that can have on her respiratory status. And she states that she will not wear her BiPAP unless she gets pain medicine. I did order as needed oxy IR and will have Dilaudid available as well. Monitor for sedation. Atrial fib?patient is on Xarelto and that will be continued once meds are verified. Monitor on telemetry and pulse oximetry. Currently heart rate is about 110. HFpEF?echo from January 2025 shows normal LV systolic function. Mild RV dilation with mild reduction in RV function. Biatrial dilation. RVSP of 30 to 35%. Currently BNP is slightly elevated at 740 but no findings of congestive heart failure on exam. Imaging does not show evidence of acute decompensation. Will likely be able to resume home diuretics in the morning. Diabetes mellitus?metformin will be held. Will provide sliding scale insulin coverage. She is currently NPO. Hypertension and hyperlipidemia?will resume home meds once verified. Currently blood pressure is stable.
[2025-10-14] MEDS: AZITHROMYCIN 500 MG in 0.9 % SODIUM CHLORIDE 250 ML 250 MG IV (20:36)
[2025-10-14] MEDS: OXYCODONE 5MG IMMEDIATE RELEASE TABLET 5 MG PO (20:40)
[2025-10-14] MEDS: PANTOPRAZOLE 40MG TABLET 40 MG PO (20:40)
[2025-10-14 21:11] LABS: POC Glucose,Bedside 150 gm/dL (70-110)
[2025-10-14 22:50] LABS: Lactate Venous 1.5 mmol/L (0.4-2.0); VBG HCO3 23.6 mmol/L (23-30); VBG PH 7.25 mmol/L (7.31-7.41); VBG PO2 46.5 mmol/L (28-40)
[2025-10-14 22:56] LABS: VBG PCO2 55.5 mmol/L (35-51)
[2025-10-14] MEDS: IPRATROPIUM/ALBUTEROL 3 ML NEB IH (23:06)
--- NOTE | 2025-10-14 23:06 | PC.NURSE ---
WALTER Gilbert notified of VBG results.
[2025-10-14 23:08] LABS: Troponin I < 0.01 ng/ml (0.00-0.034)
[2025-10-15] VITALS (39 sets, daily range): BP systolic 80–144; BP diastolic 38–114; PULSE 45–140; RESP 13–27; TEMP 36.5–37.2; O2SAT 85–100; BMI 32.3
[2025-10-15] MEDS: HYDROMORPHONE 2MG/ML SYRINGE 0.5 MG IV ×4 (01:25→16:54)
[2025-10-15] MEDS: OXYCODONE 5MG IMMEDIATE RELEASE TABLET 5 MG PO (02:40)
[2025-10-15 02:48] LABS: Lactate Venous 2.0 mmol/L (0.4-2.0); VBG HCO3 24.9 mmol/L (23-30); VBG PH 7.30 mmol/L (7.31-7.41); VBG PO2 42.4 mmol/L (28-40)
[2025-10-15 02:51] LABS: VBG PCO2 51.9 mmol/L (35-51)
[2025-10-15] MEDS: ONDANSETRON 4MG/2ML VIAL 4 MG IV (05:25)
[2025-10-15 06:01] LABS: POC Glucose,Bedside 157 gm/dL (70-110)
[2025-10-15] MEDS: IPRATROPIUM/ALBUTEROL 3 ML NEB IH ×3 (06:01→18:27)
[2025-10-15] MEDS: humaLOG 100 UNITS/ML 10ML VIAL (SSI) SUBCUT (06:03)
--- NOTE | 2025-10-15 06:32 | PC.NURSE ---
Vitals stable. BiPAP worn the majority of the night. On 6L when BiPAP is off. Pt complained of 7-9/10 stabbing pain in abdomen multiple times. Dilaudid 0.5 mg given x2. Oxycodone 5 mg given x2. Increased nausea this morning around 0500. 4 mg zofran given.
[2025-10-15 07:14] LABS: VBG HCO3 25.5 mmol/L (23-30); VBG PCO2 49.4 mmol/L (35-51); VBG PH 7.33 mmol/L (7.31-7.41); VBG PO2 57.8 mmol/L (28-40)
[2025-10-15 07:15] LABS: Lactate Venous 2.1 mmol/L (0.4-2.0)
[2025-10-15 07:36] LABS: Hematocrit 37.7 % (37.0-47.0); Hemoglobin 11.5 g/dL (12.2-16.2); Immature Granulocytes % 0.5 %; Mean Corpuscular HGB Conc 30.5 g/dL (31.8-35.4); Mean Corpuscular Hemoglobin 29.6 pg (27.0-31.2); Mean Corpuscular Volume 96.9 fl (81-99); Nucleated Red Blood Cells % 0 %; Platelet Count 303 K/mm3 (142-424); Red Blood Count 3.89 M/mm3 (4.20-5.40); Red Cell Distribution Width-SD 53.4 fL; White Blood Count 11.8 K/mm3 (4.8-10.8)
--- NOTE | 2025-10-15 07:48 | PC.NURSE ---
Pt called out for pain medication. The only med that I could give was tylenol and pt was educated on when other meds could be given. She refused the tylenol.
[2025-10-15 07:51] LABS: Alanine Aminotransferase 18 U/L (12-78); Albumin Level 3.9 g/dl (3.5-5.0); Albumin/Globulin Ratio 1.3 (1.1-1.8); Alkaline Phosphatase 88 U/L (38-126); Anion Gap 10.3 mEq/L (5-15); Aspartate Amino Transferase 23 U/L (14-36); Bilirubin,Total 0.5 mg/dl (0.2-1.3); Blood Urea Nitrogen 13 mg/dl (7-17); Calcium 8.6 mg/dl (8.4-10.2); Carbon Dioxide 25 mmol/L (22.0-30.0); Chloride 102 mmol/L (98-107); Creatinine Clearance Estimated 81 mL/min (50-200); Creatinine,Serum 1.00 mg/dl (0.52-1.04); Estimated Glomerular Filt Rate 56 ml/min (>60); GFR (African American) 67 ML/MIN (>60); Globulin 2.9 g/dL (1.3-3.2); Glucose 146 mg/dl (74-100); Magnesium 1.6 mg/dl (1.6-2.3); Potassium 4.3 mmoL/L (3.5-5.1); Sodium 133 mmol/L (136-145); Total Protein,Serum 6.8 g/dl (6.3-8.2)
[2025-10-15] MEDS: HYDROMORPHONE 2MG/ML SYRINGE 1 MG IV (08:25)
[2025-10-15] MEDS: OXYCODONE 5MG IMMEDIATE RELEASE TABLET 10 MG PO ×3 (08:52→21:33)
[2025-10-15] MEDS: MAGNESIUM OXIDE 400MG TABLET 400 MG PO ×2 (09:13→21:23)
[2025-10-15] MEDS: QUETIAPINE 25MG TABLET 50 MG PO (09:14)
[2025-10-15] MEDS: LEVOTHYROXINE 100MCG (0.1MG) TAB 100 MCG PO (09:14)
[2025-10-15] MEDS: GABAPENTIN 600MG TABLET 600 MG PO ×2 (09:16→21:23)
--- NOTE | 2025-10-15 09:58 | [facility].PHAAMS2 ---
- Antimicrobial Stewardship Review culture & sensitivity review Stewardship interventions: culture & sensitivity review (CULTURES PENDING, CONTINUE CURRENT.)
[2025-10-15 10:54] LABS: POC Glucose,Bedside 141 gm/dL (70-110)
[2025-10-15] MEDS: ACETAMINOPHEN 325MG TAB 650 MG PO (10:57)
[2025-10-15] MEDS: LIPASE/PROTEASE/AMYLASE 1 EACH CAPSULE.DR PO ×2 (11:02→16:41)
[2025-10-15 11:16] LABS: Reflex Lactic Add Lactic Reflex
[2025-10-15] MEDS: POLYETHYLENE GLYCOL 3350 17 GM PACKET PO (16:41)
--- NOTE | 2025-10-15 18:28 | P.PN_ITS ---
Subjective *Date: 10/15/25 *Time: 21:20 Interval history: Complaining of significant abdominal pain. Blood gas this morning improved. Alert and oriented x 3. Tachycardic and tachypneic because of pain. Denies nausea. No bowel movement in 3 days. Medical Exam Vital signs and Labs for Last 24 Hours: Vital Signs Temp Pulse Pulse Resp BP BP Pulse Ox 10/15/25 18:00 76 16 140/87 94 L 10/15/25 17:00 108 H 19 109/81 L 95 10/15/25 17:00 10/15/25 16:00 98.9 F 111 H 18 144/86 H 92 L 10/15/25 16:00 10/15/25 16:00 90 10/15/25 15:00 10/15/25 14:00 92 H 16 126/94 H 96 10/15/25 14:00 10/15/25 13:00 10/15/25 12:00 120 H 20 135/80 92 L 10/15/25 12:00 110 H 10/15/25 11:07 122 H 10/15/25 11:07 129 H 10/15/25 11:07 92 L 10/15/25 11:00 10/15/25 10:01 105 H 20 100/73 L 92 L 10/15/25 09:05 90 L 10/15/25 09:00 10/15/25 08:11 96 10/15/25 08:00 98.4 F 116 H 21 105/66 L 96 10/15/25 07:51 140 H 10/15/25 07:01 80 14 106/67 L 90 L 10/15/25 06:54 75 18 84/38 L 92 L 10/15/25 06:46 10/15/25 06:02 87 10/15/25 06:02 79 10/15/25 06:02 97 10/15/25 06:00 97 H 20 107/82 L 90 L 10/15/25 05:41 94 L 10/15/25 05:00 10/15/25 05:00 73 18 107/75 L 10/15/25 04:00 82 20 114/78 94 L 10/15/25 04:00 74 10/15/25 04:00 97.9 F 82 16 104/79 L 90 L 10/15/25 03:02 92 L 10/15/25 03:01 87 19 103/68 L 95 10/15/25 02:30 10/15/25 02:21 10/15/25 02:01 86 22 112/86 96 10/15/25 01:00 10/15/25 01:00 85 27 H 117/81 93 L 10/15/25 00:52 91 H 10/15/25 00:00 97 10/15/25 00:00 98.3 F 90 13 101/74 L 90 L 10/14/25 23:36 90 L 10/14/25 23:07 117 H 10/14/25 23:07 116 H 10/14/25 23:07 10/14/25 23:07 95 10/14/25 23:00 110 H 18 98/78 L 95 10/14/25 23:00 115 H 20 98/78 L 95 10/14/25 23:00 10/14/25 22:00 13 98/77 L 94 L 10/14/25 21:00 10/14/25 21:00 118 H 23 128/79 90 L 10/14/25 20:00 110 H 10/14/25 20:00 110 H 22 120/80 88 L 10/14/25 20:00 90 L 10/14/25 20:00 13 10/14/25 19:15 88 L 10/14/25 19:13 11 L 18 120/80 91 L 10/14/25 18:59 98.6 F 108 H 20 99/79 L O2 Del Method O2 Flow Rate FiO2 10/15/25 18:00 Nasal Cannula 6 10/15/25 17:00 Nasal Cannula 6 10/15/25 17:00 Nasal Cannula 6 10/15/25 16:00 Nasal Cannula 6 10/15/25 16:00 Nasal Cannula 6 10/15/25 16:00 10/15/25 15:00 Nasal Cannula 6 10/15/25 14:00 Nasal Cannula 6 10/15/25 14:00 Nasal Cannula 6 10/15/25 13:00 Nasal Cannula 6 10/15/25 12:00 Nasal Cannula 6 10/15/25 12:00 10/15/25 11:07 10/15/25 11:07 10/15/25 11:07 Nasal Cannula 6 10/15/25 11:00 Nasal Cannula 6 10/15/25 10:01 Nasal Cannula 6 10/15/25 09:05 Nasal Cannula 6 10/15/25 09:00 Nasal Cannula 6 10/15/25 08:11 Nasal Cannula 6 10/15/25 08:00 Room Air 10/15/25 07:51 10/15/25 07:01 Nasal Cannula 6 10/15/25 06:54 Non-Rebreather 6 10/15/25 06:46 Nasal Cannula 6 10/15/25 06:02 10/15/25 06:02 10/15/25 06:02 Nasal Cannula 6 10/15/25 06:00 Nasal Cannula 6 10/15/25 05:41 Nasal Cannula 6 10/15/25 05:00 Room Air 10/15/25 05:00 BiPAP 10/15/25 04:00 Nasal Cannula 6 10/15/25 04:00 10/15/25 04:00 BiPAP 10/15/25 03:02 BiPAP 10/15/25 03:01 BiPAP 10/15/25 02:30 35 10/15/25 02:21 BiPAP 10/15/25 02:01 BiPAP 10/15/25 01:00 BiPAP 10/15/25 01:00 BiPAP 10/15/25 00:52 10/15/25 00:00 BiPAP 35 10/15/25 00:00 BiPAP 10/14/25 23:36 BiPAP 10/14/25 23:07 10/14/25 23:07 10/14/25 23:07 35 10/14/25 23:07 BiPAP 35 10/14/25 23:00 BiPAP 10/14/25 23:00 BiPAP 10/14/25 23:00 BiPAP 10/14/25 22:00 BiPAP 10/14/25 21:00 BiPAP 10/14/25 21:00 Nasal Cannula 6 10/14/25 20:00 10/14/25 20:00 Nasal Cannula 6 10/14/25 20:00 Nasal Cannula 6 10/14/25 20:00 10/14/25 19:15 Nasal Cannula 6 10/14/25 19:13 Nasal Cannula 6 10/14/25 18:59 BiPAP Intake and Output 10/15/25 10/15/25 10/15/25 07:59 15:59 23:59 Intake Total 0 / 1611 899 / 1611 712 / 1611 Output Total 0 / 300 300 / 300 Balance 0 1311 599 / 1311 712 / 1311 Intake: Intake, Oral Amount 0 156 899 / 1561 662 / 1561 Intake, Total IV Amount 50 / 50 Ceftriaxone Sodium 1 gm In 0.9 50 / 50 % Sodium Chloride 50 ml @ 100 mls/hr IV Q24H [facility] Rx#:[id number] Output: Output, Urine Amount 0 / 300 300 / 300 Other: Number of Unmeasured Voids 1 Weight 91.217 kg Patient Weight 10/15/25 23:59 Weight 91.217 kg Laboratory Results - last 24 hr 10/14/25 19:32: Troponin I < 0.01 10/14/25 20:58: POC Glucose 150 H 10/14/25 22:41: VBG pH 7.25 L, VBG pCO2 55.5 H, VBG pO2 46.5 H, VBG HCO3 23.6, VBG Total CO2 25.3, VBG O2 Saturation 75.2 H, VBG Base Excess -3.7 L, VBG Lactic Acid 1.5, Troponin I < 0.01 10/15/25 02:32: VBG pH 7.30 L, VBG pCO2 51.9 H, VBG pO2 42.4 H, VBG HCO3 24.9, VBG Total CO2 26.5, VBG O2 Saturation 74.9 H, VBG Base Excess -1.5, VBG Lactic Acid 2.0 10/15/25 05:54: POC Glucose 157 H 10/15/25 06:00: VBG pH 7.33, VBG pCO2 49.4, VBG pO2 57.8 H, VBG HCO3 25.5, VBG Total CO2 27.0, VBG O2 Saturation 88.6 H, VBG Base Excess -0.5, VBG Lactic Acid 2.1 H 10/15/25 06:55: WBC 11.8 H D, RBC 3.89 L, Hgb 11.5 L, Hct 37.7, MCV 96.9, MCH 29.6, MCHC 30.5 L, RDW 15.1, Plt Count 303, MPV 10.2, Neut % (Auto) 84.8 H, Lymph % (Auto) 13.4, [place] % (Auto) 1.1 L, Eos % (Auto) 0.0 L, Baso % (Auto) 0.2, Neut # (Auto) 10.0 H, Lymph # (Auto) 1.6, [place] # (Auto) 0.1, Eos # (Auto) 0.0, Baso # (Auto) 0.0, Sodium 133 L, Potassium 4.3, Chloride 102, Carbon Dioxide 25, Anion Gap 10.3, BUN 13, Creatinine 1.00, Estimated Creat Clear 81, Estimated GFR 56 L, Est GFR ( Amer) 67, Glucose 146 H D, Calcium 8.6, Magnesium 1.6, Total Bilirubin 0.5, AST 23, ALT 18, Alkaline Phosphatase 88, Total Protein 6.8, Albumin 3.9, Globulin 2.9, Albumin/Globulin Ratio 1.3 10/15/25 10:46: POC Glucose 141 H I & O for Labs for Last 24 Hours: Intake & Output 10/12/25 10/13/25 10/14/25 10/15/25 23:59 23:59 23:59 23:59 Intake Total 300 / 300 1611 / 1611 Output Total 0 / 0 300 / 300 Balance 300 / 300 1311 / 1311 Weight 90.718 kg 91.217 kg Microbiology Reports for the Last 24 Hours: Microbiology 10/14/25 15:19 Blood Blood Culture - Preliminary NO GROWTH AFTER 24 HOURS 10/14/25 14:59 Blood Blood Culture - Preliminary NO GROWTH AFTER 24 HOURS Constitutional: Present moderate distress, obese, chronically ill appearing and agitated Head: Present atraumatic and normocephalic ENT: Present normal exam Neck: Present normal inspection Respiratory: Present distant breath sounds, diminished air movement and normal respiratory effort; Absent rhonchi, wheezes or crackles Comment:: ribs TTP Right chest mid axillary line Cardiac: Present Irregularly Regular and Tachycardia GI: Present soft, tenderness (Epigastric and left upper quadrant) and normal bowel sounds; Absent distention Extremities: Present normal inspection and full ROM; Absent tenderness Skin: Present intact; Absent erythema Neuro: Present Grossly Intact, alert, awake, oriented x 3 and moves all extremities Assessment and Plan *Assessment and plan (1) Acute on chronic respiratory failure with hypoxia and hypercapnia: Status: Acute Category: Medical Code(s): J96.21 - Acute and chronic respiratory failure with hypoxia; J96.22 - Acute and chronic respiratory failure with hypercapnia (2) COPD exacerbation: Status: Acute Category: Medical Code(s): J44.1 - Chronic obstructive pulmonary disease with (acute) exacerbation (3) Chronic pancreatitis: Status: Acute Qualifiers: Pancreatitis type: unspecified pancreatitis type Qualified Code(s): K86.1 - Other chronic pancreatitis Category: Medical Code(s): K86.1 - Other chronic pancreatitis (4) PAF (paroxysmal atrial fibrillation): Status: Acute Category: Medical Code(s): I48.0 - Paroxysmal atrial fibrillation (5) (HFpEF) heart failure with preserved ejection fraction: Status: Acute Qualifiers: Heart failure chronicity: chronic Qualified Code(s): I50.32 - Chronic diastolic (congestive) heart failure Category: Medical Code(s): I50.30 - Unspecified diastolic (congestive) heart failure (6) Diabetes mellitus: Status: Chronic Qualifiers: Diabetes mellitus complication status: without complication Diabetes mellitus alf insulin use: without termite control representative use Diabetes mellitus type: type 2 Qualified Code(s): E11.9 - Type 2 diabetes mellitus without co mplications Category: Medical Code(s): E11.9 - Type 2 diabetes mellitus without complications (7) Hyperlipidemia: Status: Chronic Qualifiers: Hyperlipidemia type: mixed hyperlipidemia Qualified Code(s): E78.2 - Mixed hyperlipidemia Category: Medical Code(s): E78.5 - Hyperlipidemia, unspecified (8) Hypertension: Status: Chronic Qualifiers: Hypertension type: essential hypertension Qualified Code(s): I10 - Essential (primary) hypertension Category: Medical Code(s): I10 - Essential (primary) hypertension Plan 65-year-old female patient presents to the ER with shortness of breath. Workup revealed hypercapnic respiratory failure. She does have chronic hypoxic respiratory failure for which she uses 3 L of oxygen by nasal cannula at home. She also has history of FLACO and has been noncompliant with her CPAP. She states she has had a change in insurance and is unable to get a machine. After treatment with steroids and nebulizers she was then placed on BiPAP. Did well overnight. Blood gas normalized this morning. Continues to have significant pain. Continues to require inpatient management for chronic pancreatitis. Problems addressed as follows: Chronic pancreatitis?patient does have history of chronic pancreatitis it does not appear she is on pancreatic enzymes any longer. She takes gabapentin as well as Xanax at home. - Continue Dilaudid 0.5 mg every 4 hours. Administered additional one-time dose of Dilaudid 1 mg this morning due to severity of pain, monitor for toxicity - Lipase level ordered for the morning. White count 11.8. Kidney function normal with BUN 13, creatinine 1. Liver enzymes normal. - CBC, CMP, magnesium ordered for the morning Atrial fib? Continue Xarelto 20 mg nightly, continue verapamil 120 mg twice daily HFpEF?echo from January 2025 shows normal LV systolic function. Mild RV dilation with mild reduction in RV function. Biatrial dilation. RVSP of 30 to 35%. Currently BNP is slightly elevated at 740 but no findings of congestive heart f ailure on exam. Imaging does not show evidence of acute decompensation. Will likely be able to resume home diuretics in the morning. Continue Cymbalta 60 mg twice daily, Continue ceftriaxone and azithromycin daily.. Coverage for possible infection pending culture results. Hypothyroid: Levothyroxine 100 mcg daily Tobacco use disorder: Continue nicotine patch 21 mg daily Continue Seroquel 50 mg daily Continue trazodone 100 mg nightly Continue ropinirole 0.25 mg nightly Diabetes mellitus?metformin will be held. Will provide sliding scale insulin coverage. Advance to full liquid diet Full code
[2025-10-15 20:48] LABS: POC Glucose,Bedside 129 gm/dL (70-110)
[2025-10-15] MEDS: SENNOSIDES 8.6MG/DOCUSATE 50MG TABLET 1 TAB PO (21:22)
[2025-10-15] MEDS: PANTOPRAZOLE 40MG TABLET 40 MG PO (21:23)
[2025-10-15] MEDS: TRAZODONE 50MG TABLET 100 MG PO (21:23)
[2025-10-15] MEDS: ROPINIROLE HCL 0.25 MG TABLET PO (21:23)
[2025-10-15] MEDS: AZITHROMYCIN 500 MG in 0.9 % SODIUM CHLORIDE 250 ML 250 MG IV (21:24)
--- NOTE | 2025-10-15 22:35 | PC.NURSE ---
At 2202 Patients oxygen saturation was staying low 80s, Tried to wake patient up to get her to take deep breaths, she would wake up for a few seconds and then go back to sleep. At 2234 Patient respirations were at 7 and oxygen was 78. Patient was switched over to NRB at 15L Hospitalist was called and she ordered narcan to give the patient plus start iv fluids due to patient being hypotensive. Narcan was administered patient oxygen came back up and patient respirations were back up to 18. Hospitalist had a talk with patient. Hospitalist wants patient to be back on the bipap. VBG was ordered. Hospitalist is also going to put in an order for narcan PRN incase its needed and also decreasing the hydrocodone down from 10 to 5mg. Hospitalist is also going to obtain a urine drug screen
[2025-10-15] MEDS: NALOXONE 0.4MG/ML VIAL 0.4 MG IV (22:38)
[2025-10-15] MEDS: 0.9 % SODIUM CHLORIDE 1000ML 500 ML 999 ML IV (22:44)
[2025-10-15 23:10] LABS: Lactate Venous 1.9 mmol/L (0.4-2.0); VBG HCO3 28.0 mmol/L (23-30); VBG PH 7.24 mmol/L (7.31-7.41); VBG PO2 25.7 mmol/L (28-40)
[2025-10-15 23:13] LABS: VBG PCO2 66.5 mmol/L (35-51)
[2025-10-15 23:35] LABS: Amphetamine/Metha Screen,Urine Negative ng/ml (<1000)
[2025-10-15 23:36] LABS: Barbiturates Screen,Urine Negative ng/ml (<200); Benzodiazepines Screen,Urine Positive ng/ml (<200)
[2025-10-15 23:38] LABS: Methadone Screen,Urine Negative ng/ml (<300)
[2025-10-15 23:39] LABS: Opiate Screen,Urine Positive ng/ml (<300); Phencyclidine Screen,Urine Negative ng/ml (<25)
--- NOTE | 2025-10-15 23:44 | PC.NURSE ---
Patients purse was placed in a belongings bag and wrapped up and placed inside another belongings bag and tied up and placed in the closet in the patient room. Patient was made aware of this due to patient needing to be narcan it was for the safety of her and the staff
--- NOTE | 2025-10-15 23:50 | PC.NURSE ---
patients oxygen turned down from 6 liters nasal cannula to 3 liters patient oxygen saturation is 95%
[2025-10-16] VITALS (48 sets, daily range): BP systolic 71–116; BP diastolic 43–77; PULSE 72–118; RESP 10–24; TEMP 36.6–36.9; O2SAT 71–100; BMI 34.0
--- NOTE | 2025-10-16 00:36 | PC.NURSE ---
Patient was placed back on the bipap at this time. Will recheck vbg at 0300.
[2025-10-16] MEDS: IPRATROPIUM/ALBUTEROL 3 ML NEB IH ×4 (00:38→18:40)
[2025-10-16 03:04] LABS: Lactate Venous 0.9 mmol/L (0.4-2.0); VBG HCO3 26.6 mmol/L (23-30); VBG PH 7.26 mmol/L (7.31-7.41); VBG PO2 48.3 mmol/L (28-40)
[2025-10-16 03:06] LABS: VBG PCO2 60.2 mmol/L (35-51)
[2025-10-16] MEDS: HYDROMORPHONE 2MG/ML SYRINGE 0.5 MG IV (04:44)
--- NOTE | 2025-10-16 05:53 | PC.NURSE ---
Pt requested to take off bipap and apply nasal cannula at 0355 this AM
[2025-10-16] MEDS: LEVOTHYROXINE 100MCG (0.1MG) TAB 100 MCG PO (06:02)
[2025-10-16] MEDS: OXYCODONE 5MG IMMEDIATE RELEASE TABLET 5 MG PO (06:02)
[2025-10-16] MEDS: LIPASE/PROTEASE/AMYLASE 1 EACH CAPSULE.DR PO ×3 (06:04→17:03)
[2025-10-16 06:16] LABS: POC Glucose,Bedside 131 gm/dL (70-110)
[2025-10-16 07:30] LABS: Lactate Venous 1.5 mmol/L (0.4-2.0); VBG HCO3 26.6 mmol/L (23-30); VBG PH 7.26 mmol/L (7.31-7.41); VBG PO2 47.6 mmol/L (28-40)
[2025-10-16 07:33] LABS: VBG PCO2 61.0 mmol/L (35-51)
[2025-10-16 07:51] LABS: Hematocrit 35.6 % (37.0-47.0); Hemoglobin 10.5 g/dL (12.2-16.2); Immature Granulocytes % 0.6 %; Mean Corpuscular HGB Conc 29.5 g/dL (31.8-35.4); Mean Corpuscular Hemoglobin 29.0 pg (27.0-31.2); Mean Corpuscular Volume 98.3 fl (81-99); Nucleated Red Blood Cells % 0 %; Platelet Count 279 K/mm3 (142-424); Red Blood Count 3.62 M/mm3 (4.20-5.40); Red Cell Distribution Width-SD 55.1 fL; White Blood Count 10.5 K/mm3 (4.8-10.8)
[2025-10-16 08:06] LABS: Alanine Aminotransferase 16 U/L (12-78); Albumin Level 3.4 g/dl (3.5-5.0); Albumin/Globulin Ratio 1.2 (1.1-1.8); Alkaline Phosphatase 72 U/L (38-126); Anion Gap 6.0 mEq/L (5-15); Aspartate Amino Transferase 22 U/L (14-36); Bilirubin,Total 0.4 mg/dl (0.2-1.3); Blood Urea Nitrogen 9 mg/dl (7-17); Calcium 8.0 mg/dl (8.4-10.2); Carbon Dioxide 30 mmol/L (22.0-30.0); Chloride 101 mmol/L (98-107); Creatinine Clearance Estimated 85 mL/min (50-200); Creatinine,Serum 0.90 mg/dl (0.52-1.04); Estimated Glomerular Filt Rate 63 ml/min (>60); GFR (African American) 76 ML/MIN (>60); Globulin 2.8 g/dL (1.3-3.2); Glucose 135 mg/dl (74-100); Lipase 80 U/L (23-300); Magnesium 1.8 mg/dl (1.6-2.3); Potassium 4.0 mmoL/L (3.5-5.1); Sodium 133 mmol/L (136-145); Total Protein,Serum 6.2 g/dl (6.3-8.2)
--- NOTE | 2025-10-16 08:36 | PC.NURSE ---
THIS MORNING WHILE MD WAS ROUNDING PT WAS FOUND TO BE CLUTCHING HER VAPE IN HER BED AFTER IT WAS TAKEN LAST NIGHT BY NURSING STAFF. MD TOOK VAPE PEN FROM PATIENT AND IT WAS LOCKED IN THE NARCOTICS BOX IN THE MED ROOM.
--- NOTE | 2025-10-16 09:47 | HMH.PHAAMS2 ---
- Antimicrobial Stewardship Review culture & sensitivity review Stewardship interventions: culture & sensitivity review (NO GROWTH IN BLOOD CX.), IV to PO conversion
[2025-10-16] MEDS: MAGNESIUM OXIDE 400MG TABLET 400 MG PO ×2 (10:00→20:14)
[2025-10-16] MEDS: GABAPENTIN 600MG TABLET 600 MG PO ×2 (10:00→20:58)
[2025-10-16] MEDS: QUETIAPINE 25MG TABLET 50 MG PO (10:00)
[2025-10-16] MEDS: SENNOSIDES 8.6MG/DOCUSATE 50MG TABLET 1 TAB PO ×2 (10:00→20:13)
--- NOTE | 2025-10-16 10:12 | PC.NURSE ---
PATIENT REPORTS THE LAST THING SHE REMEMBERS LAST NIGHT WAS ME TELLING HER DARLINE BEFORE I LEFT. I EDUCATED HER ON EVENTS OVERNIGHT AND WHY HER PAIN MED ORDERS WERE CHANGED. SHE WAS VERY ANXIOUS AND TEARFUL.
--- NOTE | 2025-10-16 11:22 | PC.NURSE ---
PT ASKED IF SHE COULD HAVE HER PAIN BOX THIS RN ASKED WHAT SHE MEANT AND IT WAS DISCOVERED THAT PATIENT HAS AN IMPLANTED PAIN PUMP IN HER RIGHT LOWER BACK. THIS RN EDUCATED THAT I WOULD HAVE TO CHECK WITH THE MD BEFORE SHE COULD BOLUS HERSELF. SHE STARTED TO GET UPSET AND ASKED FOR AMA PAPERS. THIS RN CALLED MD NAIR AND INFORMED HIM OF PAIN PUMP AND HER WANTING TO LEAVE. MD STATED THAT SHE WAS ALLOWED TO BOLUS HERSELF WITH HER PAIN PUMP. A BOLUS WAS DELIVERED AT 1115 THIS AM. AND PT WAS PLACED BACK ON BIPAP PER MD.
[2025-10-16 11:29] LABS: POC Glucose,Bedside 93 gm/dL (70-110)
[2025-10-16 14:06] LABS: POC Glucose,Bedside 118 gm/dL (70-110)
[2025-10-16 15:52] LABS: POC Glucose,Bedside 104 gm/dL (70-110)
[2025-10-16 16:03] LABS: Lactate Venous 0.8 mmol/L (0.4-2.0); VBG HCO3 27.1 mmol/L (23-30); VBG PH 7.31 mmol/L (7.31-7.41); VBG PO2 45.2 mmol/L (28-40)
[2025-10-16 16:05] LABS: VBG PCO2 55.6 mmol/L (35-51)
--- NOTE | 2025-10-16 17:05 | EXP.ACUTE.PN ---
Subjective *Date: 10/16/25 *Time: 17:44 Interval history: Overnight Ms. Arteaga became more sedate and hypopneic. Respiratory rate dropped below 10. Blood gases obtained showing worsening respiratory acidosis. Due to her oversedation, 1 dose of Narcan was administered. She improved and her respiratory status. Was placed back on BiPAP. Significant changes made to patient's pain regimen at that time. It was also noted that she was utilizing a vape pen and did not want to give it to staff. UDS obtained and found to be positive for benzodiazepines, opiates, cocaine, THC. Strong concern patient has been using additional substances while admitted and question if her vape pen is THC or nicotine. Has shown improvement in mentation with use of BiPAP. Will complain of pain and then fall right asleep. Blood pressure remained stable. Afebrile. No nausea or vomiting. On morning rounds, requesting something for pain. I informed her that she would no longer be getting any IV pain medications. She had her vape pen in her hand at that time and I requested she let me take it. It was locked in our controlled medication box in the ICU. Patient fell back asleep after rounds. Medical Exam Vital signs and Labs for Last 24 Hours: Vital Signs Temp Pulse Pulse Resp BP Pulse Ox O2 Del Method 10/16/25 16:00 98.1 F 10/16/25 16:00 80 10/16/25 16:00 97 BiPAP 10/16/25 16:00 89 14 91/61 L 96 BiPAP 10/16/25 15:00 BiPAP 10/16/25 14:05 78 14 106/69 L 97 BiPAP 10/16/25 14:00 96 BiPAP 10/16/25 14:00 78 14 92 L 10/16/25 14:00 106/69 L 10/16/25 13:45 91 H 18 96 10/16/25 13:30 77 11 L 96 10/16/25 13:25 80 14 96 10/16/25 13:25 102/66 L 10/16/25 13:15 84 18 96 10/16/25 13:00 78 14 96 10/16/25 13:00 87/60 L 10/16/25 13:00 BiPAP 10/16/25 12:45 89 14 97 10/16/25 12:30 104 H 15 99 10/16/25 12:15 84 10 L 95 10/16/25 12:13 82 18 86/68 L 96 BiPAP 10/16/25 12:09 86/56 L 10/16/25 12:09 78 16 98 10/16/25 12:09 85 86/56 L 96 BiPAP 10/16/25 12:07 75 11 L 98 10/16/25 12:07 71/48 L 10/16/25 12:05 72 13 100 10/16/25 12:05 77/48 L 10/16/25 12:01 81 13 100 10/16/25 12:01 81/49 L 10/16/25 12:00 83 14 99 10/16/25 12:00 90 10/16/25 11:45 86 16 100 10/16/25 11:39 88 10/16/25 11:39 87 10/16/25 11:39 10/16/25 11:30 92 H 18 99 10/16/25 11:25 97.9 F 10/16/25 11:20 BiPAP 10/16/25 11:01 98 H 16 108/59 L 96 Nasal Cannula 10/16/25 09:00 Nasal Cannula 10/16/25 08:05 BiPAP 10/16/25 08:00 90 10/16/25 08:00 BiPAP 10/16/25 08:00 98.4 F 91 H 20 110/77 99 BiPAP 10/16/25 07:39 10/16/25 07:00 90 16 102/73 L 95 Nasal Cannula 10/16/25 06:35 Nasal Cannula 10/16/25 06:00 117 H 24 112/76 92 L Nasal Cannula 10/16/25 05:46 101 H 10/16/25 05:46 95 H 10/16/25 05:46 93 L Nasal Cannula 10/16/25 05:00 Nasal Cannula 10/16/25 04:18 92 H 10/16/25 04:00 98.1 F 82 116/74 99 Nasal Cannula 10/16/25 03:30 93 H 98 10/16/25 03:00 BiPAP 10/16/25 02:00 98 BiPAP 10/16/25 02:00 89 115/76 78 L BiPAP 10/16/25 01:45 107/67 L 10/16/25 01:00 84 99/63 L 71 L BiPAP 10/16/25 01:00 BiPAP 10/16/25 00:41 79 10/16/25 00:40 10/16/25 00:39 77 10/16/25 00:12 98.3 F 86 94/59 L 91 L Nasal Cannula 10/16/25 00:00 92 L Nasal Cannula 10/16/25 00:00 78 10/15/25 23:53 76 95 10/15/25 23:50 80/50 L 10/15/25 23:50 84 97 10/15/25 23:46 79 100 10/15/25 23:46 89/54 L 10/15/25 23:45 88 100 10/15/25 23:31 133/114 H 10/15/25 23:31 64 85 L 10/15/25 23:30 107 H 90 L 10/15/25 23:21 105/75 L 10/15/25 23:20 87 92 L 10/15/25 23:16 82 88 L 10/15/25 23:00 Nasal Cannula 10/15/25 22:02 45 L 23 97/71 L 88 L Nasal Cannula 10/15/25 21:00 Nasal Cannula 10/15/25 20:10 97.7 F 15 102/80 L 87 L Nasal Cannula 10/15/25 20:00 130 H 96 Nasal Cannula 10/15/25 20:00 120 H 10/15/25 18:41 Nasal Cannula 10/15/25 18:39 Nasal Cannula 10/15/25 18:38 108 H 10/15/25 18:37 110 H 10/15/25 18:00 76 16 140/87 94 L Nasal Cannula O2 Flow Rate FiO2 10/16/25 16:00 10/16/25 16:00 10/16/25 16:00 40 10/16/25 16:00 40 10/16/25 15:00 10/16/25 14:05 40 10/16/25 14:00 10/16/25 14:00 10/16/25 14:00 10/16/25 13:45 10/16/25 13:30 10/16/25 13:25 10/16/25 13:25 10/16/25 13:15 10/16/25 13:00 10/16/25 13:00 10/16/25 13:00 10/16/25 12:45 10/16/25 12:30 10/16/25 12:15 10/16/25 12:13 40 10/16/25 12:09 10/16/25 12:09 10/16/25 12:09 40 10/16/25 12:07 10/16/25 12:07 10/16/25 12:05 10/16/25 12:05 10/16/25 12:01 10/16/25 12:01 10/16/25 12:00 10/16/25 12:00 10/16/25 11:45 10/16/25 11:39 10/16/25 11:39 10/16/25 11:39 40 10/16/25 11:30 10/16/25 11:25 10/16/25 11:20 10/16/25 11:01 5 10/16/25 09:00 5 10/16/25 08:05 10/16/25 08:00 10/16/25 08:00 10/16/25 08:00 40 10/16/25 07:39 40 10/16/25 07:00 5 10/16/25 06:35 5 10/16/25 06:00 5 10/16/25 05:46 10/16/25 05:46 10/16/25 05:46 5 10/16/25 05:00 5 10/16/25 04:18 10/16/25 04:00 3 10/16/25 03:30 10/16/25 03:00 10/16/25 02:00 10/16/25 02:00 10/16/25 01:45 10/16/25 01:00 10/16/25 01:00 10/16/25 00:41 10/16/25 00:40 35 10/16/25 00:39 10/16/25 00:12 3 10/16/25 00:00 3 10/16/25 00:00 10/15/25 23:53 10/15/25 23:50 10/15/25 23:50 10/15/25 23:46 10/15/25 23:46 10/15/25 23:45 10/15/25 23:31 10/15/25 23:31 10/15/25 23:30 10/15/25 23:21 10/15/25 23:20 10/15/25 23:16 10/15/25 23:00 6 10/15/25 22:02 6 10/15/25 21:00 6 10/15/25 20:10 6 10/15/25 20:00 6 10/15/25 20:00 10/15/25 18:41 6 10/15/25 18:39 6 10/15/25 18:38 10/15/25 18:37 10/15/25 18:00 6 Intake and Output 10/16/25 10/16/25 10/16/25 07:59 15:59 23:59 Intake Total 840 / 1260 420 / 1260 Output Total 1100 / 1900 800 / 1900 Balance -260 / -640 -380 / -640 Intake: Intake, Oral Amount 840 / 1260 420 / 1260 Intake, Total IV Amount 0 / 0 0.9 % Sodium Chloride 1000ML 0 / 0 500 ml @ 999 mls/hr IV .Q31M ONE Rx#:[id number] Output: Output, Urine Amount 1100 / 1900 800 / 1900 Other: Number of Voids 1 Number of Unmeasured Voids 0 Weight 96.207 kg Patient Weight 10/16/25 23:59 Weight 96.207 kg Laboratory Results - last 24 hr 10/15/25 20:42: POC Glucose 129 H 10/15/25 23:08: Urine Opiates Screen Positive H, Urine Methadone Screen Negative, Ur Barbituates Screen Negative, Ur Phencyclidine Scrn Negative, Ur Amphetamines Screen Negative, U Benzodiazepines Scrn Positive H, Urine Cocaine Screen Positive H, U Marijuana (THC) Screen Positive H 10/15/25 23:09: VBG pH 7.24 L, VBG pCO2 66.5 H, VBG pO2 25.7 L, VBG HCO3 28.0, VBG Total CO2 30.0 H, VBG O2 Saturation 44.4 L, VBG Base Excess 0.6, VBG Lactic Acid 1.9 10/16/25 03:00: VBG pH 7.26 L, VBG pCO2 60.2 H, VBG pO2 48.3 H, VBG HCO3 26.6, VBG Total CO2 28.4 H, VBG O2 Saturation 80.4 H, VBG Base Excess -0.4, VBG Lactic Acid 0.9 10/16/25 06:08: POC Glucose 131 H 10/16/25 07:03: WBC 10.5, RBC 3.62 L, Hgb 10.5 L, Hct 35.6 L, MCV 98.3, MCH 29.0, MCHC 29.5 L, RDW 15.2, Plt Count 279, MPV 9.9, Neut % (Auto) 54.7, Lymph % (Auto) 35.3, Creek % (Auto) 6.5, Eos % (Auto) 2.6, Baso % (Auto) 0.3, Neut # (Auto) 5.7, Lymph # (Auto) 3.7, Creek # (Auto) 0.7, Eos # (Auto) 0.3, Baso # (Auto) 0.0, Sodium 133 L, Potassium 4.0, Chloride 101, Carbon Dioxide 30, Anion Gap 6.0, BUN 9 D, Creatinine 0.90, Estimated Creat Clear 85, Estimated GFR 63, Est GFR ( Amer) 76, Glucose 135 H, Calcium 8.0 L, Magnesium 1.8 D, Total Bilirubin 0.4, AST 22, ALT 16, Alkaline Phosphatase 72, Total Protein 6.2 L, Albumin 3.4 L D, Globulin 2.8, Albumin/Globulin Ratio 1.2, Lipase 80 10/16/25 07:23: VBG pH 7.26 L, VBG pCO2 61.0 H, VBG pO2 47.6 H, VBG HCO3 26.6, VBG Total CO2 28.4 H, VBG O2 Saturation 79.6 H, VBG Base Excess -0.5, VBG Lactic Acid 1.5 10/16/25 11:04: POC Glucose 93 10/16/25 13:59: POC Glucose 118 H 10/16/25 15:42: POC Glucose 104 10/16/25 15:55: VBG pH 7.31, VBG pCO2 55.6 H, VBG pO2 45.2 H, VBG HCO3 27.1, VBG Total CO2 28.8 H, VBG O2 Saturation 80.2 H, VBG Base Excess 0.7, VBG Lactic Acid 0.8 I & O for Labs for Last 24 Hours: Intake & Output 10/13/25 10/14/25 10/15/2525 23:59 23:59 23:59 23:59 Intake Total 300 / 300 2127.4 / 2367.4 1260 / 1260 Output Total 0 / 0 1000 / 1000 1900 / 1900 Balance 300 / 300 1127.4 / 1367.4 -640 / -640 Weight 90.718 kg 91.217 kg 96.207 kg Microbiology Reports for the Last 24 Hours: Microbiology 10/14/25 15:19 Blood Blood Culture - Preliminary NO GROWTH AFTER 48 HOURS 10/14/25 14:59 Blood Blood Culture - Preliminary NO GROWTH AFTER 48 HOURS Constitutional: Present mild distress, obese, chronically ill appearing and agitated Head: Present atraumatic and normocephalic ENT: Present normal exam Neck: Present normal inspection Respiratory: Present distant breath sounds, diminished air movement and normal respiratory effort; Absent rhonchi, wheezes or crackles Comment:: ribs TTP Right chest mid axillary line Cardiac: Present Regular Rate and Irregularly Regular GI: Present soft, tenderness (Improving epigastric and left upper quadrant) and normal bowel sounds; Absent distention Extremities: Present normal inspection and full ROM; Absent tenderness Skin: Present intact; Absent erythema Neuro: Present Grossly Intact, alert, awake and moves all extremities Comment:: Awoken to answer questions appropriately. Promptly goes back to sleep. Oriented to self and place Assessment and Plan *Assessment and plan (1) Acute on chronic respiratory failure with hypoxia and hypercapnia: Status: Acute Category: Medical Code(s): J96.21 - Acute and chronic respiratory failure with hypoxia; J96.22 - Acute and chronic respiratory failure with hypercapnia (2) COPD exacerbation: Status: Acute Category: Medical Code(s): J44.1 - Chronic obstructive pulmonary disease with (acute) exacerbation (3) Chronic pancreatitis: Status: Acute Qualifiers: Pancreatitis type: unspecified pancreatitis type Qualified Code(s): K86.1 - Other chronic pancreatitis Category: Medical Code(s): K86.1 - Other chronic pancreatitis (4) PAF (paroxysmal atrial fibrillation): Status: Acute Category: Medical Code(s): I48.0 - Paroxysmal atrial fibrillation (5) (HFpEF) heart failure with preserved ejection fraction: Status: Acute Qualifiers: Heart failure chronicity: chronic Qualified Code(s): I50.32 - Chronic diastolic (congestive) heart failure Category: Medical Code(s): I50.30 - Unspecified diastolic (congestive) heart failure (6) Diabetes mellitus: Status: Chronic Qualifiers: Diabetes mellitus complication status: without complication Diabetes mellitus long term care phlebotomist insulin use: without long term care phlebotomist use Diabetes mellitus type: type 2 Qualified Code(s): E11.9 - Type 2 diabetes mellitus without complications Category: Medical Code(s): E11.9 - Type 2 diabetes mellitus without complications (7) Hyperlipidemia: Status: Chronic Qualifiers: Hyperlipidemia type: mixed hyperlipidemia Qualified Code(s): E78.2 - Mixed hyperlipidemia Category: Medical Code(s): E78.5 - Hyperlipidemia, unspecified (8) Hypertension: Status: Chronic Qualifiers: Hypertension type: essential hypertension Qualified Code(s): I10 - Essential (primary) hypertension Category: Medical Code(s): I10 - Essential (primary) hypertension Plan 65-year-old female patient presents to the ER with shortness of breath. Workup revealed hypercapnic respiratory failure. She does have chronic hypoxic respiratory failure for which she uses 3 L of oxygen by nasal cannula at home. She also has history of FLACO and has been noncompliant with her CPAP. She states she has had a change in insurance and is unable to get a machine. After treatment with steroids and nebulizers she was then placed on BiPAP. Initially did well first night of admission on BiPAP. Had to go back on BiPAP last night due to recurrence of hypercapnia. Likely secondary to oversedation from polypharmacy. Patient complaining of pain again this morning overdosed off quickly when denied giving her IV pain medication. Did receive 1 dose of Narcan overnight due to oversedation. Continues to require patient management. Will have pulmonology evaluate patient in the morning. Problems addressed as follows: Chronic pancreatitis ?patient does have history of chronic pancreatitis it does not appear she is on pancreatic enzymes any longer. She takes gabapentin as well as Xanax at home. - Discontinue Dilaudid. Continue oxycodone 7-1/2 mg every 6 hours for severe breakthrough pain. Informed patient there would be no additional medications in between. Of note, she reports that she has a bupivacaine pain pump and asked if she could give herself bolus doses. Informed her this would be okay at this time. Tolerating p.o. intake. White count normal at 7.5. Kidney function normal with BUN 9, creatinine 0.9. Lipase normal at 80. - CBC, CMP, magnesium ordered for the morning Acute hypercapnic respiratory failure: Secondary to oversedation. Tolerates BiPAP. Continue BiPAP at night. Blood gas showed improvement today with pH initially 7.2, improved to 7.31 after wearing BiPAP for several hours. With pulmonology evaluate in the morning. Patient supposed to wear BiPAP at home but does not have device due to change in insurance. Will attempt to facilitate getting device prior to discharge home Atrial fib? Continue Xarelto 20 mg nightly, continue verapamil 120 mg twice daily HFpEF?echo from January 2025 shows normal LV systolic function. Mild RV dilation with mild reduction in RV function. Biatrial dilation. RVSP of 30 to 35%. Currently BNP is slightly elevated at 740 but no findings of congestive heart failure on exam. Imaging does not show evidence of acute decompensation. Will likely be able to resume home diuretics in the morning. Continue Cymbalta 60 mg twice daily, Continue ceftriaxone and azithromycin daily.. Coverage for possible infection pending culture results. If remain negative tomorrow, will wean antibiotics Hypothyroid: Levothyroxine 100 mcg daily Tobacco use disorder: Continue nicotine patch 21 mg daily Continue Seroquel 50 mg daily Continue trazodone 100 mg nightly Continue ropinirole 0.25 mg nightly Diabetes mellitus?metformin will be held. Will provide sliding scale insulin coverage. Advance to low-fat bland diet Full code
--- NOTE | 2025-10-16 17:37 | PC.NURSE ---
PT USED HER PAIN PUMP BOLUS AT THIS TIME
[2025-10-16] MEDS: OXYCODONE 5MG IMMEDIATE RELEASE TABLET 7.5 MG PO (17:38)
[2025-10-16] MEDS: AZITHROMYCIN 500 MG in 0.9 % SODIUM CHLORIDE 250 ML 250 MG IV (20:12)
[2025-10-16] MEDS: ROPINIROLE HCL 0.25 MG TABLET PO (20:13)
[2025-10-16] MEDS: PANTOPRAZOLE 40MG TABLET 40 MG PO (20:14)
[2025-10-16] MEDS: TRAZODONE 50MG TABLET 100 MG PO (20:14)
[2025-10-16 20:15] LABS: POC Glucose,Bedside 177 gm/dL (70-110)
[2025-10-16] MEDS: humaLOG 100 UNITS/ML 10ML VIAL (SSI) SUBCUT (20:56)
[2025-10-16 21:03] LABS: POC Glucose,Bedside 180 gm/dL (70-110)
--- NOTE | 2025-10-16 23:08 | PC.NURSE ---
At approximately 2100 pt was adamant that she needed her pain medication. Pt stated that she never took it at 1738, and she must have been asleep when they gave it to her. Pt called family and preceded to tell them we were holding all of her medications, that we had taken the pain pump bolus. Myself and Mounika OZUNA, educated patient on the PRN time of the medication, the importance of adhering to the scheduled minimum time set by doctors. Educated on the lower bp of 78/48 and that opiates would make it worse causing to be Narcaned again, and that the pain pump bolus machine was on the bed side table within her reach. Pt was adamant that she wanted to speak to another nurse and a doctor. Mela Seay RN went in the room and addressed the same issue of pain medication not being available until 1138pm, by readjusting self, watching a movie. Provider was notified of situation that had happened, and that she was wanting to speak with her. When the provider came to unit pt was asleep.
[2025-10-17] VITALS (22 sets, daily range): BP systolic 83–112; BP diastolic 41–77; PULSE 74–122; RESP 10–25; TEMP 36.7–36.8; O2SAT 85–97; BMI 34.0
[2025-10-17] MEDS: IPRATROPIUM/ALBUTEROL 3 ML NEB IH ×2 (00:09→06:01)
[2025-10-17] MEDS: OXYCODONE 5MG IMMEDIATE RELEASE TABLET 7.5 MG PO ×2 (00:11→08:24)
--- NOTE | 2025-10-17 04:26 | PC.NURSE ---
At 0400 pt used call light asking for pain medication. Upon looking at the MAR pt is unable to receive pain medication until 0615. Myself and Mounika OZUNA educated patient on the schedule of pain medication, and that we must follow the provider's orders. Educated patient on turning, watching tv and trying holistic methods of pain management. Pt became upset and started to cry, pt asked to speak to provider. Provider in room at this time.
[2025-10-17 05:45] LABS: POC Glucose,Bedside 133 gm/dL (70-110)
[2025-10-17 06:04] LABS: Hematocrit 35.6 % (37.0-47.0); Hemoglobin 10.5 g/dL (12.2-16.2); Immature Granulocytes % 0.2 %; Mean Corpuscular HGB Conc 29.5 g/dL (31.8-35.4); Mean Corpuscular Hemoglobin 29.2 pg (27.0-31.2); Mean Corpuscular Volume 98.9 fl (81-99); Nucleated Red Blood Cells % 0 %; Platelet Count 265 K/mm3 (142-424); Red Blood Count 3.60 M/mm3 (4.20-5.40); Red Cell Distribution Width-SD 55.7 fL; White Blood Count 8.3 K/mm3 (4.8-10.8)
[2025-10-17 06:25] LABS: Alanine Aminotransferase 13 U/L (12-78); Albumin Level 3.0 g/dl (3.5-5.0); Albumin/Globulin Ratio 1.1 (1.1-1.8); Alkaline Phosphatase 89 U/L (38-126); Anion Gap 5.8 mEq/L (5-15); Aspartate Amino Transferase 17 U/L (14-36); Bilirubin,Total 0.4 mg/dl (0.2-1.3); Blood Urea Nitrogen 13 mg/dl (7-17); Calcium 8.1 mg/dl (8.4-10.2); Carbon Dioxide 32 mmol/L (22.0-30.0); Chloride 103 mmol/L (98-107); Creatinine Clearance Estimated 77 mL/min (50-200); Creatinine,Serum 1.10 mg/dl (0.52-1.04); Estimated Glomerular Filt Rate 50 ml/min (>60); GFR (African American) 60 ML/MIN (>60); Globulin 2.7 g/dL (1.3-3.2); Glucose 125 mg/dl (74-100); Potassium 4.8 mmoL/L (3.5-5.1); Sodium 136 mmol/L (136-145); Total Protein,Serum 5.7 g/dl (6.3-8.2)
--- NOTE | 2025-10-17 06:49 | ECG_ITS ---
APPROVED REPORT Exam: Resting ECG HR:75 bpm ECG Measurements Heart Rate 75 AXES NV 184 P 92 QRSd 86 QRS 50 QT 401 T 54 QTc 430 Conclusion SINUS RHYTHM WITH SINUS ARRHYTHMIA NORMAL ECG UNCONFIRMED REPORT Electronically signed by : Oskar Eugene MD 10/18/2025 15:07:09
--- NOTE | 2025-10-17 06:57 | PC.NURSE ---
pt called out complaining of chest pain rating 06/09 around 0645. pt reports its not radiating and gets worse with a deep breath. Pt does report some nausea. EKG obtained showing sinus rhythm w/ sinus arrhythmia. Provider Anuj WATSON notified and to bedside. No new orders at this time.
[2025-10-17] MEDS: LEVOTHYROXINE 100MCG (0.1MG) TAB 100 MCG PO (07:02)
[2025-10-17] MEDS: LIPASE/PROTEASE/AMYLASE 1 EACH CAPSULE.DR PO ×3 (07:02→16:47)
[2025-10-17] MEDS: QUETIAPINE 25MG TABLET 50 MG PO (08:18)
[2025-10-17] MEDS: SENNOSIDES 8.6MG/DOCUSATE 50MG TABLET 1 TAB PO ×2 (08:18→21:20)
[2025-10-17] MEDS: GABAPENTIN 600MG TABLET 600 MG PO ×2 (08:18→21:20)
[2025-10-17] MEDS: MAGNESIUM OXIDE 400MG TABLET 400 MG PO ×2 (08:18→21:20)
--- NOTE | 2025-10-17 08:39 | [facility].PHAAMS2 ---
- Antimicrobial Stewardship Review IV to PO conversion Stewardship interventions: IV to PO conversion Comments: PATIENT ON ABX 48 HRS, TOLERATING PO INTAKE, AFEBRILE OVER 24 HRS, WHITE COUNT NORMALIZED AT 8300.
--- NOTE | 2025-10-17 08:42 | HMH.PHAAMS2 ---
- Antimicrobial Stewardship Review culture & sensitivity review Stewardship interventions: culture & sensitivity review Comments: EMPERIC THERAPY FOR COPD EXACERBATION, BLOOD CX CONTINUE TO SHOW NO GROWTH, NO SPUTUM ORDERED.
--- NOTE | 2025-10-17 09:30 | EXP.PULM.CON ---
History of Present Illness History of present illness: Ms. Arteaga is a 65-year-old female greater than [id number] smoking history smoked around 1999 prior history of COPD, chronic hypoxic respiratory failure 2.5 L nasal cannula self-reported consult reported history of sleep apnea noncompliant with her CPAP therapy as per the patient, last seen in the hospital January 2025 found to be having hypercarbic respiratory failure needing noninvasive ventilatory therapy,Discharge patient on auto CPAP at 8-22 and oxygen supplementation at 2 L at this point of time. [facility] Disclaimer: The information contained in this section may have been updated after the patient was seen, as this information can be updated by other users. Medical History (Updated 10/17/25 @ 15:56 by Charlotte Aleman MD) FLACO (obstructive sleep apnea) Diarrhea BRBPR (bright red blood per rectum) Hypomagnesemia Atrial fibrillation with rapid ventricular response Myofascial pain on right side Right hip pain Internal hemorrhoid, bleeding Multiple falls Pancreatic divisum Afib Esophageal dilatation Multiple lung nodules on CT Pulmonary emphysema Hypocalcemia Hypokalemia Acidosis, lactic GI bleed Noncompliance with medication regimen Tobacco dependence in remission Pancreas divisum of [place] pancreas Encounter for pre-operative cardiovascular clearance Orthopnea CHF (congestive heart failure) Pancreatitis Nausea vomiting and diarrhea Exhausted vascular access Rib fractures Chronic hypoxemic respiratory failure Coronary artery disease COPD (chronic obstructive pulmonary disease) HLD (hyperlipidemia) Diabetes Anxiety and depression TIA (transient ischemic attack) History of stroke History of multiple cerebrovascular accidents (CVAs) History of class III angina pectoris Typical angina Dyspnea History of pancreatitis History of CVA (cerebrovascular accident) Surgical History History of banding of hemorrhoid History of biliary duct stent placement History of hysterectomy History of cholecystectomy History of coronary artery stent placement Family History Other Family history of cancer Family history of diabetes mellitus Social History Smoking Status: Current every day smoker tobacco type: e-cigarettes years smoked: 45 how long ago did patient quit smokin years ago quit status: quit date established second hand exposure: No alcohol intake: never counseling provided: none substance use type: marijuana and crack/cocaine current occupational status: retired, disabled and other Travel in the last 8 weeks?: None household members: significant other housing: house marital status: number of children: 2 current occupational exposures/hazards: No caffeine: Yes Have you lived/traveled outside [place] in past 30 days?: No Contact w/someone who lives/traveled outside US past 30 days?: No Exposure to someone with infectious disease in past 14 days?: No Do you have a fever (greater than 100.4 F or 38 C)?: No Have you tested positive for COVID-19?: No Exposed to someone with COVID-19 in past 14 days?: No Do you have a sore throat?: No Do you have a cough?: No Do you have any weakness?: No Do you have any diarrhea?: No Are you experiencing any unusual bleeding?: No Do you have any muscle aches/pain?: No Do you have any abdominal pain?: No Are you experiencing loss of taste or smell?: No Review of Systems Constitutional Constitutional: Reports anorexia, Reports body ache(s) and Reports fatigue Eyes Eyes: Denies eye discharge, Denies dry eyes, Denies irritation and Denies itchy eyes ENT Ears, Nose, Mouth, and Throat: Denies epistaxis, Denies facial pain, Denies lip swelling and Denies throat swelling *Cardiovascular Cardiovascular: Reports dyspnea and Reports dyspnea on exertion *Respiratory Respiratory: Reports change in phlegm color, Reports chest congestion, Reports cough, Reports dyspnea, Reports dyspnea on exertion, Reports excessive phlegm production, Denies hemoptysis, Denies pain on inspiration, Denies pain with cough and Denies wheezing *Gastrointestinal Gastrointestinal: Denies abdominal pain, Denies belching and Denies cramping *Musculoskeletal Musculoskeletal: Reports back pain, Reports myalgias and Reports other (No small joint swelling or Pain) *Neurologic Neurologic: Denies abnormal speech and Denies confusion Psychiatric Psychiatric: Denies confusion Endocrine Endocrine: Reports fatigue and Denies heat intolerance Hematologic/Lymphatic Hematologic/Lymphatic: Denies easy bleeding and Denies lymphadenopathy Allergic/Immunologic Allergic/Immunologic: Denies itchy eyes, Denies lip swelling, Denies throat swelling and Denies wheezing Pulmonology Exam Inpatient Vital signs and Labs for Last 24 Hours: Temp Pulse Resp BP Pulse Ox O2 Del Method O2 Flow Rate 98.3 F 98 H 13 92/58 L 91 L Nasal Cannula 2 10/17/25 08:13 10/17/25 08:13 10/17/25 08:13 10/17/25 08:13 10/17/25 08:31 10/17/25 08:31 10/17/25 08:31 FiO2 40 10/17/25 02:27 Laboratory Results - last 24 hr 10/16/25 11:04: POC Glucose 93 10/16/25 13:59: POC Glucose 118 H 10/16/25 15:42: POC Glucose 104 10/16/25 15:55: VBG pH 7.31, VBG pCO2 55.6 H, VBG pO2 45.2 H, VBG HCO3 27.1, VBG Total CO2 28.8 H, VBG O2 Saturation 80.2 H, VBG Base Excess 0.7, VBG Lactic Acid 0.8 10/16/25 20:08: POC Glucose 177 H 10/16/25 20:56: POC Glucose 180 H 10/17/25 05:38: WBC 8.3, RBC 3.60 L, Hgb 10.5 L, Hct 35.6 L, MCV 98.9, MCH 29.2, MCHC 29.5 L, RDW 15.3, Plt Count 265, MPV 10.2, Neut % (Auto) 58.7, Lymph % (Auto) 30.4, Carver % (Auto) 6.9, Eos % (Auto) 3.3, Baso % (Auto) 0.5, Neut # (Auto) 4.9, Lymph # (Auto) 2.5, Carver # (Auto) 0.6, Eos # (Auto) 0.3, Baso # (Auto) 0.0, Sodium 136, Potassium 4.8, Chloride 103, Carbon Dioxide 32 H, Anion Gap 5.8, BUN 13 D, Creatinine 1.10 H D, Estimated Creat Clear 77, Estimated GFR 50 L, Est GFR ( Amer) 60 D, Glucose 125 H, Calcium 8.1 L, Total Bilirubin 0.4, AST 17, ALT 13, Alkaline Phosphatase 89, Total Protein 5.7 L, Albumin 3.0 L D, Globulin 2.7, Albumin/Globulin Ratio 1.1 10/17/25 05:39: POC Glucose 133 H I & O for Labs for Last 24 Hours: Intake & Output 10/14/25 10/15/25 10/16/25 10/17/25 23:59 23:59 23:59 23:59 Intake Total 300 / 300 2127.4 / 2367.4 1800 / 1800 500 / 500 Output Total 0 / 0 1000 / 1000 2700 / 2700 800 / 800 Balance 300 / 300 1127.4 / 1367.4 -900 / -900 -300 / -300 Weight 200 lb 201 lb 1.6 oz 212 lb 1.6 oz 211 lb 10.3 oz Microbiology Reports for the Last 24 Hours: Microbiology 10/14/25 15:19 Blood Blood Culture - Preliminary NO GROWTH AFTER 48 HOURS 10/14/25 14:59 Blood Blood Culture - Preliminary NO GROWTH AFTER 48 HOURS Constitutional: Present moderate distress Head: Present normocephalic and atraumatic ENT: Present normal exam, normal oropharynx and mucous membranes moist Neck: Present normal inspection and full ROM Respiratory: Present prolonged expiratory phase, normal respiratory effort and able to speak in complete sentences; Absent respiratory distress, wheezes or crackles Cardiac: Present S1/S2, Tachycardia and radial pulses present GI: Present soft and distention; Absent tenderness or guarding Rectal (female): Present deferred (female): Present deferred Skin: Present intact; Absent cyanosis or jaundice Neuro: Present alert, awake and oriented x 3 Extremities: Present normal inspection; Absent clubbing or cyanosis Psychiatric: Present normal affect and cooperative Meds Home Medications and Allergies Home Medications ?Medication ?Instructions ?Recorded ?Confirmed ?Type atorvastatin 40 mg tablet 40 mg PO HS #90 tabs 02/07/25 10/15/25 Rx pantoprazole 40 mg tablet,delayed 40 mg PO HS 30 days #30 tabs 04/06/25 10/15/25 Rx release potassium chloride 10 mEq 10 meq PO DAILY #90 tabs 04/13/25 10/15/25 Rx tablet,extended release duloxetine 60 mg capsule,delayed 60 mg PO BID 90 days #180 caps 04/18/25 10/15/25 Rx release rivaroxaban 20 mg tablet (Xarelto) 20 mg PO QPMWITHMEAL 05/12/25 10/15/25 History gabapentin 600 mg tablet 600 mg PO BID 05/26/25 10/15/25 History ropinirole 0.25 mg tablet 0.25 mg PO HS 05/26/25 10/15/25 History verapamil 120 mg tablet,extended 120 mg PO BID 06/23/25 10/15/25 History release trazodone 100 mg tablet 100 mg PO HS #90 tabs 07/08/25 10/15/25 Rx montelukast 10 mg tablet 10 mg PO HS #30 tabs 07/18/25 10/15/25 Rx levothyroxine 100 mcg tablet 100 mcg PO DAILY 07/25/25 10/15/25 History magnesium oxide 400 mg (241.3 mg 400 mg PO BID #60 tabs 08/26/25 10/15/25 Rx magnesium) tablet ferrous sulfate 325 mg (65 mg 325 mg PO BID #60 tabs 09/26/25 10/15/25 Rx iron) tablet metformin 1,000 mg tablet 1,000 mg PO BIDWMEAL #60 tabs 09/26/25 10/15/25 Rx quetiapine 50 mg tablet (Seroquel) 50 mg PO DAILY #90 tabs 09/26/25 10/15/25 Rx alprazolam 1 mg tablet 1 mg PO BIDP PRN anxiety 10/15/25 10/15/25 History ajcbuj-yjuqncpm-pgouxqf(pork)12,000-38,000-60,000 1 cap PO AC 10/15/25 10/15/25 History unit capsule,del rel (Creon) metoprolol succinate 25 mg 12.5 mg PO DAILY 10/15/25 10/15/25 History tablet,extended release 24 hr polyethylene glycol 3350 17 17 g PO DAILYP PRN constiptation 10/15/25 10/15/25 History gram/dose oral powder (Miralax) ranolazine 500 mg tablet,extended 500 mg PO BID 10/15/25 10/15/25 History release,12 hr New Prescriptions to Start Prescriptions: Allergies Allergy/AdvReac Type Severity Reaction Status Date / Time codeine (CODEINE) Allergy Intermediate N/V Verified 06/23/25 13:14 ketorolac (KETOROLAC) Allergy Intermediate Hives Verified 06/23/25 13:14 meperidine (MEPERIDINE) Allergy Intermediate Hives Verified 06/23/25 13:14 tramadol (TRAMADOL) Allergy Intermediate Hives Verified 06/23/25 13:14 ciprofloxacin AdvReac Severe Interacts Verified 06/23/25 13:14 with cymbalta Results Laboratory Findings 10/17/25 05:38 10/17/25 05:38 ABG ABG pH 7.24 mmol/L (7.35-7.45) L* 10/14/25 17:16 ABG pCO2 63.1 mmhg (35.0-45.0) H 10/14/25 17:16 ABG pO2 172.3 mmhg (80-100) H 10/14/25 17:16 ABG O2 Saturation 99 % (90-100) 10/14/25 17:16 Abnormal lab findings: Abnormal Labs 10/14/25 10/14/25 10/14/25 14:59 16:32 17:16 WBC RBC 4.06 L Hgb Hct MCHC 31.7 L Neut % (Auto) Carver % (Auto) Eos % (Auto) Neut # (Auto) ABG pH 7.24 L* ABG pCO2 63.1 H ABG pO2 172.3 H ABG HCO3 26.6 H ABG Total CO2 28.6 H VBG pH 7.25 L VBG pCO2 62.2 H VBG pO2 48.8 H VBG Total CO2 28.6 H VBG O2 Saturation 76.8 H VBG Base Excess VBG Lactic Acid Sodium 134 L Carbon Dioxide Creatinine Estimated GFR 56 L Glucose 113 H POC Glucose Calcium NT-Pro-B Natriuret Pep 740 H Total Protein Albumin Urine Opiates Screen U Benzodiazepines Scrn Urine Cocaine Screen U Marijuana (THC) Screen 10/14/25 10/14/25 10/15/25 20:58 22:41 02:32 WBC RBC Hgb Hct MCHC Neut % (Auto) Carver % (Auto) Eos % (Auto) Neut # (Auto) ABG pH ABG pCO2 ABG pO2 ABG HCO3 ABG Total CO2 VBG pH 7.25 L 7.30 L VBG pCO2 55.5 H 51.9 H VBG pO2 46.5 H 42.4 H VBG Total CO2 VBG O2 Saturation 75.2 H 74.9 H VBG Base Excess -3.7 L VBG Lactic Acid Sodium Carbon Dioxide Creatinine Estimated GFR Glucose POC Glucose 150 H Calcium NT-Pro-B Natriuret Pep Total Protein Albumin Urine Opiates Screen U Benzodiazepines Scrn Urine Cocaine Screen U Marijuana (THC) Screen 10/15/25 10/15/25 10/15/25 05:54 06:00 06:55 WBC 11.8 H D RBC 3.89 L Hgb 11.5 L Hct MCHC 30.5 L Neut % (Auto) 84.8 H Carver % (Auto) 1.1 L Eos % (Auto) 0.0 L Neut # (Auto) 10.0 H ABG pH ABG pCO2 ABG pO2 ABG HCO3 ABG Total CO2 VBG pH VBG pCO2 VBG pO2 57.8 H VBG Total CO2 VBG O2 Saturation 88.6 H VBG Base Excess VBG Lactic Acid 2.1 H Sodium 133 L Carbon Dioxide Creatinine Estimated GFR 56 L Glucose 146 H D POC Glucose 157 H Calcium NT-Pro-B Natriuret Pep Total Protein Albumin Urine Opiates Screen U Benzodiazepines Scrn Urine Cocaine Screen U Marijuana (THC) Screen 10/15/25 10/15/25 10/15/25 10:46 20:42 23:08 WBC RBC Hgb Hct MCHC Neut % (Auto) Carver % (Auto) Eos % (Auto) Neut # (Auto) ABG pH ABG pCO2 ABG pO2 ABG HCO3 ABG Total CO2 VBG pH VBG pCO2 VBG pO2 VBG Total CO2 VBG O2 Saturation VBG Base Excess VBG Lactic Acid Sodium Carbon Dioxide Creatinine Estimated GFR Glucose POC Glucose 141 H 129 H Calcium NT-Pro-B Natriuret Pep Total Protein Albumin Urine Opiates Screen Positive H U Benzodiazepines Scrn Positive H Urine Cocaine Screen Positive H U Marijuana (THC) Screen Positive H 10/15/25 10/16/25 10/16/25 23:09 03:00 06:08 WBC RBC Hgb Hct MCHC Neut % (Auto) Carver % (Auto) Eos % (Auto) Neut # (Auto) ABG pH ABG pCO2 ABG pO2 ABG HCO3 ABG Total CO2 VBG pH 7.24 L 7.26 L VBG pCO2 66.5 H 60.2 H VBG pO2 25.7 L 48.3 H VBG Total CO2 30.0 H 28.4 H VBG O2 Saturation 44.4 L 80.4 H VBG Base Excess VBG Lactic Acid Sodium Carbon Dioxide Creatinine Estimated GFR Glucose POC Glucose 131 H Calcium NT-Pro-B Natriuret Pep Total Protein Albumin Urine Opiates Screen U Benzodiazepines Scrn Urine Cocaine Screen U Marijuana (THC) Screen 10/16/25 10/16/25 10/16/25 07:03 07:23 13:59 WBC RBC 3.62 L Hgb 10.5 L Hct 35.6 L MCHC 29.5 L Neut % (Auto) Carver % (Auto) Eos % (Auto) Neut # (Auto) ABG pH ABG pCO2 ABG pO2 ABG HCO3 ABG Total CO2 VBG pH 7.26 L VBG pCO2 61.0 H VBG pO2 47.6 H VBG Total CO2 28.4 H VBG O2 Saturation 79.6 H VBG Base Excess VBG Lactic Acid Sodium 133 L Carbon Dioxide Creatinine Estimated GFR Glucose 135 H POC Glucose 118 H Calcium 8.0 L NT-Pro-B Natriuret Pep Total Protein 6.2 L Albumin 3.4 L D Urine Opiates Screen U Benzodiazepines Scrn Urine Cocaine Screen U Marijuana (THC) Screen 10/16/25 10/16/25 10/16/25 15:55 20:08 20:56 WBC RBC Hgb Hct MCHC Neut % (Auto) Carver % (Auto) Eos % (Auto) Neut # (Auto) ABG pH ABG pCO2 ABG pO2 ABG HCO3 ABG Total CO2 VBG pH VBG pCO2 55.6 H VBG pO2 45.2 H VBG Total CO2 28.8 H VBG O2 Saturation 80.2 H VBG Base Excess VBG Lactic Acid Sodium Carbon Dioxide Creatinine Estimated GFR Glucose POC Glucose 177 H 180 H Calcium NT-Pro-B Natriuret Pep Total Protein Albumin Urine Opiates Screen U Benzodiazepines Scrn Urine Cocaine Screen U Marijuana (THC) Screen 10/17/25 10/17/25 05:38 05:39 WBC RBC 3.60 L Hgb 10.5 L Hct 35.6 L MCHC 29.5 L Neut % (Auto) Carver % (Auto) Eos % (Auto) Neut # (Auto) ABG pH ABG pCO2 ABG pO2 ABG HCO3 ABG Total CO2 VBG pH VBG pCO2 VBG pO2 VBG Total CO2 VBG O2 Saturation VBG Base Excess VBG Lactic Acid Sodium Carbon Dioxide 32 H Creatinine 1.10 H D Estimated GFR 50 L Glucose 125 H POC Glucose 133 H Calcium 8.1 L NT-Pro-B Natriuret Pep Total Protein 5.7 L Albumin 3.0 L D Urine Opiates Screen U Benzodiazepines Scrn Urine Cocaine Screen U Marijuana (THC) Screen Assessment and Plan *Assessment and plan (1) COPD exacerbation: Status: Acute Category: Medical Code(s): J44.1 - Chronic obstructive pulmonary disease with (acute) exacerbation (2) Acute on chronic respiratory failure with hypoxia and hypercapnia: Status: Acute Category: Medical Code(s): J96.21 - Acute and chronic respiratory failure with hypoxia; J96.22 - Acute and chronic respiratory failure with hypercapnia (3) FLACO (obstructive sleep apnea): Status: Acute Category: Medical Code(s): G47.33 - Obstructive sleep apnea (adult) (pediatric) Plan Ms. Arteaga is a 65-year-old female greater than [id number] smoking history smoked around 1999 prior history of COPD, chronic hypoxic respiratory failure 2.5 L nasal cannula self-reported consult reported history of sleep apnea noncompliant with her CPAP therapy as per the patient, last seen in the hospital January 2025 found to be having hypercarbic respiratory failure needing noninvasive ventilatory therapy,Discharge patient on auto CPAP at 8-22 and oxygen supplementation at 2 L at this point of time. Polysomnography testing [facility] [address] of [address]0 CT upon admission bilateral diffuse ground glass opacities. Emphysematous changes. Lower lobe airspace disease/possible atelectasis ABG on admission hypercarbic resp failure 7.24, 66.5. Comprehensive respiratory viral PCR panel negative. Current receiving ceftriaxone azithromycin along with DuoNebs every 6 hours on scheduled basis On examination not appear to be in any respiratory distress. No significant wheezing noted on auscultation. Patient presentation is concerning for COPD exacerbation. However she does have underlying untreated sleep apnea that may be contributing to her worsening hypercarbic respiratory failure at this point of time Plan: Initiate Trelegy 100 inhaler along with DuoNebs 4 times daily as needed Continue ceftriaxone and azithromycin, antibiotics can be weaned to cefdinir to complete a total of 5-day course Continue prednisone 40 mg daily or equivalent to complete a total of 5-day course Continue oxygen supplementation to maintain O2 saturation goal of 90% and above Initiate CPAP for sleep apnea - auto CPAP 8-22 with O2 supplementation at 2 L NC # Thank you for involving pulmonary in this patient care. Will follow the patient in pulmonary clinic 1 to 2 weeks postdischarge.
--- NOTE | 2025-10-17 10:17 | PC.NURSE ---
RESP CARE NOTE: Per Dr Aleman, patient to be placed on CPAP of 16 cmH2O with 28% oxygen bled in at night.
[2025-10-17 10:28] LABS: Adenovirus,PCR Not Detected (NotDetected); Chlamydophila Pneumoniae, PCR Not Detected (NotDetected); Coronavirus 19, PCR Not Detected (NotDetected); Coronovirus HKU1,PCR Not Detected (NotDetected); Influenza A, PCR Not Detected (NotDetected); Influenza AH1, 2009 Not Detected (NotDetected); Influenza AH1, PCR Not Detected (NotDetected); Influenza AH3,PCR Not Detected (NotDetected); Influenza B, PCR Not Detected (NotDetected); Mycoplasma Pneumoniae, PCR Not Detected (NotDetected); Parainfluenza 1, PCR Not Detected (NotDetected); Parainfluenza 2, PCR Not Detected (NotDetected); Parainfluenza 3, PCR Not Detected (NotDetected); Parainfluenza 4, PCR Not Detected (NotDetected)
--- NOTE | 2025-10-17 10:52 | ECG_ITS ---
APPROVED REPORT Exam: Resting ECG HR:112 bpm ECG Measurements Heart Rate 112 AXES QRSd 87 QRS 51 QT 359 T 86 QTc 425 Conclusion ATRIAL FLUTTER/TACHYCARDIA WITH RAPID VENTRICULAR RESPONSE NONSPECIFIC T-WAVE ABNORMALITY ABNORMAL RHYTHM ECG UNCONFIRMED REPORT Electronically signed by : Oskar Eugene MD 10/18/2025 15:07:00
[2025-10-17 11:02] LABS: POC Glucose,Bedside 117 gm/dL (70-110)
[2025-10-17] MEDS: METOPROLOL TARTRATE 5MG/5ML VIAL 5 MG IV (11:50)
--- NOTE | 2025-10-17 13:36 | P.PN_ITS ---
Subjective *Date: 10/17/25 *Time: 19:39 Interval history: No acute events overnight. Wore her BiPAP. Sleeping initially on exam. Evaluated her after breakfast, tolerating nutrition well. Continues to complain of pain. Pain not made worse or better by eating. Evaluated her several times through the morning and she would be sleeping comfortably. Stable on 3 L oxygen at this time. Afebrile. No nausea or vomiting Medical Exam Vital signs and Labs for Last 24 Hours: Vital Signs Temp Pulse Resp BP Pulse Ox O2 Del Method O2 Flow Rate 10/17/25 13:00 Nasal Cannula 4 10/17/25 12:00 98.0 F 95 H 10 L 98/74 L 92 L Nasal Cannula 5 10/17/25 12:00 108 H 10/17/25 11:00 Nasal Cannula 4 10/17/25 10:00 76 14 112/75 92 L Nasal Cannula 2 10/17/25 09:00 Nasal Cannula 2 10/17/25 08:31 91 L Nasal Cannula 2 10/17/25 08:13 98.3 F 98 H 13 92/58 L 94 L Nasal Cannula 2 10/17/25 08:00 86 10/17/25 07:00 Nasal Cannula 10/17/25 06:02 76 10/17/25 06:02 74 10/17/25 06:02 94 L Nasal Cannula 2 10/17/25 06:00 79 11 L 97 10/17/25 05:53 80 10/17/25 05:14 Nasal Cannula 10/17/25 05:00 75 14 97/69 L 95 10/17/25 04:01 92 H 11 L 83/45 L 92 L 10/17/25 04:00 101 H 10/17/25 03:31 Nasal Cannula 10/17/25 03:30 120 H 25 H 85 L 10/17/25 03:00 102 H 18 106/77 L 95 10/17/25 02:27 10/17/25 02:00 104 H 21 110/72 93 L 10/17/25 02:00 95 BiPAP 10/17/25 01:06 BiPAP 10/17/25 01:00 122 H 15 94/65 L 93 L 10/17/25 00:58 95 H 14 103/66 L 93 L 10/17/25 00:16 94 L BiPAP 10/17/25 00:16 10/17/25 00:10 90 10/17/25 00:10 95 H 10/17/25 00:10 94 L Nasal Cannula 4 10/17/25 00:00 106 H 10/17/25 00:00 96 H 12 86/61 L 92 L 10/16/25 23:01 108 H 17 108/66 L 90 L 10/16/25 23:00 Nasal Cannula 4 10/16/25 22:00 103 H 11 L 94/63 L 90 L 10/16/25 21:01 118 H 20 78/53 L 94 L 10/16/25 21:00 Nasal Cannula 4 10/16/25 20:27 94 L Nasal Cannula 10/16/25 20:15 98.3 F 95 H 11 L 86 L 10/16/25 20:00 97 H 10/16/25 20:00 99 H 12 82/43 L 92 L 10/16/25 19:00 92 H 12 85/55 L 91 L 10/16/25 18:41 83 10/16/25 18:41 86 10/16/25 18:41 95 Nasal Cannula 3 10/16/25 18:38 Nasal Cannula 3 10/16/25 18:13 94 L Nasal Cannula 4 10/16/25 18:01 111 H 21 111/73 97 Nasal Cannula 5 10/16/25 17:00 Nasal Cannula 5 10/16/25 16:00 98.1 F 10/16/25 16:00 80 10/16/25 16:00 97 BiPAP 10/16/25 16:00 89 14 91/61 L 96 BiPAP 10/16/25 15:00 BiPAP 10/16/25 14:05 78 14 106/69 L 97 BiPAP 10/16/25 14:00 96 BiPAP 10/16/25 14:00 78 14 92 L 10/16/25 14:00 106/69 L 10/16/25 13:45 91 H 18 96 FiO2 10/17/25 13:00 10/17/25 12:00 10/17/25 12:00 10/17/25 11:00 10/17/25 10:00 10/17/25 09:00 10/17/25 08:31 10/17/25 08:13 10/17/25 08:00 10/17/25 07:00 10/17/25 06:02 10/17/25 06:02 10/17/25 06:02 10/17/25 06:00 10/17/25 05:53 10/17/25 05:14 10/17/25 05:00 10/17/25 04:01 10/17/25 04:00 10/17/25 03:31 10/17/25 03:30 10/17/25 03:00 10/17/25 02:27 40 10/17/25 02:00 10/17/25 02:00 10/17/25 01:06 10/17/25 01:00 10/17/25 00:58 10/17/25 00:16 40 10/17/25 00:16 40 10/17/25 00:10 10/17/25 00:10 10/17/25 00:10 10/17/25 00:00 10/17/25 00:00 10/16/25 23:01 10/16/25 23:00 10/16/25 22:00 10/16/25 21:01 10/16/25 21:00 10/16/25 20:27 10/16/25 20:15 10/16/25 20:00 10/16/25 20:00 10/16/25 19:00 10/16/25 18:41 10/16/25 18:41 10/16/25 18:41 10/16/25 18:38 10/16/25 18:13 10/16/25 18:01 10/16/25 17:00 10/16/25 16:00 10/16/25 16:00 10/16/25 16:00 40 10/16/25 16:00 40 10/16/25 15:00 10/16/25 14:05 40 10/16/25 14:00 10/16/25 14:00 10/16/25 14:00 10/16/25 13:45 Intake and Output 10/16/25 10/17/25 10/17/25 23:59 07:59 15:59 Intake Total 540 / 1800 500 / 500 Output Total 800 / 2700 800 / 800 0 / 800 Balance -260 / -900 -800 / -300 500 / -300 Intake: Intake, Oral Amount 240 / 1500 500 / 500 Intake, Total IV Amount 300 / 300 Azithromycin 500 mg In 0.9 % 250 / 250 Sodium Chloride 250 ml @ 250 mls/hr IV Q24H [facility] Rx#:[id number] Ceftriaxone Sodium 1 gm In 0.9 50 / 50 % Sodium Chloride 50 ml @ 100 mls/hr IV Q24H [facility] Rx#:[id number] Output: Output, Urine Amount 800 / 2700 800 / 800 0 / 800 Other: Number of Voids 1 Number of Unmeasured Voids 2 Weight 96 kg Patient Weight 10/17/25 23:59 Weight 96 kg Laboratory Results - last 24 hr 10/16/25 13:59: POC Glucose 118 H 10/16/25 15:42: POC Glucose 104 10/16/25 15:55: VBG pH 7.31, VBG pCO2 55.6 H, VBG pO2 45.2 H, VBG HCO3 27.1, VBG Total CO2 28.8 H, VBG O2 Saturation 80.2 H, VBG Base Excess 0.7, VBG Lactic Acid 0.8 10/16/25 20:08: POC Glucose 177 H 10/16/25 20:56: POC Glucose 180 H 10/17/25 05:38: WBC 8.3, RBC 3.60 L, Hgb 10.5 L, Hct 35.6 L, MCV 98.9, MCH 29.2, MCHC 29.5 L, RDW 15.3, Plt Count 265, MPV 10.2, Neut % (Auto) 58.7, Lymph % (Auto) 30.4, [place] % (Auto) 6.9, Eos % (Auto) 3.3, Baso % (Auto) 0.5, Neut # (Aut o) 4.9, Lymph # (Auto) 2.5, [place] # (Auto) 0.6, Eos # (Auto) 0.3, Baso # (Auto) 0.0, Sodium 136, Potassium 4.8, Chloride 103, Carbon Dioxide 32 H, Anion Gap 5.8, BUN 13 D, Creatinine 1.10 H D, Estimated Creat Clear 77, Estimated GFR 50 L, Est GFR ( Amer) 60 D, Glucose 125 H, Calcium 8.1 L, Total Bilirubin 0.4, AST 17, ALT 13, Alkaline Phosphatase 89, Total Protein 5.7 L, Albumin 3.0 L D, Globulin 2.7, Albumin/Globulin Ratio 1.1 11/17/25 05:39: POC Glucose 133 H 10/17/25 09:47: Chlamy pneumoniae PCR Not detected, Adenovirus (PCR) Not detected, B. pertussis DNA (PCR) Not detected, Coronavirus OC43 (PCR) Not detected, Coronavirus HKU1 (PCR) Not detected, Coronavirus 229E (PCR) Not detected, SARS-CoV-2 (PCR) Not detected, Coronavirus NL63 (PCR) Not detected, Human Metapneumovir PCR Not detected, Influenza A (H1) PCR Not detected, Influ A (H1N1/09) PCR Not detected, Influenza A (H3) PCR Not detected, Influenza Type A (PCR) Not detected, Influenza Type B (PCR) Not detected, M. pneumoniae (PCR) Not detected, Parainfluenza 1 (PCR) Not detected, Parainfluenza 2 (PCR) Not detected, Parainfluenza 3 (PCR) Not detected, Parainfluenza 4 (PCR) Not detected, RSV (PCR) Not detected, Entero/Rhino (PCR) Not detected 10/17/25 10:42: POC Glucose 117 H I & O for Labs for Last 24 Hours: Intake & Output 10/14/25 10/15/25 10/16/25 10/17/25 23:59 23:59 23:59 23:59 Intake Total 300 / 300 2127.4 / 2367.4 1800 / 1800 500 / 500 Output Total 0 / 0 1000 / 1000 2700 / 2700 800 / 800 Balance 300 / 300 1127.4 / 1367.4 -900 / -900 -300 / -300 Weight 90.718 kg 91.217 kg 96.207 kg 96 kg Microbiology Reports for the Last 24 Hours: Microbiology 10/14/25 15:19 Blood Blood Culture - Preliminary NO GROWTH AFTER 48 HOURS 10/14/25 14:59 Blood Blood Culture - Preliminary NO GROWTH AFTER 48 HOURS Constitutional: Present no acute distress, obese, chronically ill appearing and agitated Head: Present atraumatic and normocephalic ENT: Present normal exam Neck: Present normal inspection Respiratory: Present distant breath sounds, diminished air movement and normal respiratory effort; Absent rhonchi, wheezes or crackles Comment:: ribs TTP Right chest mid axillary line Cardiac: Present Regular Rate and Irregularly Regular GI: Present soft, tenderness (Improving epigastric and left upper quadrant) and normal bowel sounds; Absent distention Extremities: Present normal inspection and full ROM; Absent tenderness Skin: Present intact; Absent erythema Neuro: Present Grossly Intact, alert, awake and moves all extremities Comment:: Awoken to answer questions appropriately. Promptly goes back to sleep. Oriented to self and place Assessment and Plan *Assessment and plan (1) Acute on chronic respiratory failure with hypoxia and hypercapnia: Status: Acute Category: Medical Code(s): J96.21 - Acute and chronic respiratory failure with hypoxia; J96.22 - Acute and chronic respiratory failure with hypercapnia (2) COPD exacerbation: Status: Acute Category: Medical Code(s): J44.1 - Chronic obstructive pulmonary disease with (acute) exacerbation (3) Chronic pancreatitis: Status: Acute Qualifiers: Pancreatitis type: unspecified pancreatitis type Qualified Code(s): K86.1 - Other chronic pancreatitis Category: Medical Code(s): K86.1 - Other chronic pancreatitis (4) PAF (paroxysmal atrial fibrillation): Status: Acute Category: Medical Code(s): I48.0 - Paroxysmal atrial fibrillation (5) (HFpEF) heart failure with preserved ejection fraction: Status: Acute Qualifiers: Heart failure chronicity: chronic Qualified Code(s): I50.32 - Chronic diastolic (congestive) heart failure Category: Medical Code(s): I50.30 - Unspecified diastolic (congestive) heart failure (6) Diabetes mellitus: Status: Chronic Qualifiers: Diabetes mellitus type: type 2 Diabetes mellitus tail puller insulin use: without halfway use Diabetes mellitus complication status: without complication Qualified Code(s): E11.9 - Type 2 diabetes mellitus without complications Category: Medical Code(s): E11.9 - Type 2 diabetes mellitus without complications (7) Hyperlipidemia: Status: Chronic Qualifiers: Hyperlipidemia type: mixed hyperlipidemia Qualified Code(s): E78.2 - Mixed hyperlipidemia Category: Medical Code(s): E78.5 - Hyperlipidemia, unspecified (8) Hypertension: Status: Chronic Qualifiers: Hypertension type: essential hypertension Qualified Code(s): I10 - Essential (primary) hypertension Category: Medical Code(s): I10 - Essential (primary) hypertension Plan 65-year-old female patient presents to the ER with shortness of breath. Workup revealed hypercapnic respiratory failure. She does have chronic hypoxic res piratory failure for which she uses 3 L of oxygen by nasal cannula at home. She also has history of FLACO and has been noncompliant with her CPAP. She states she has had a change in insurance and is unable to get a machine. After treatment with steroids and nebulizers she was then placed on BiPAP. Initially did well first night of admission on BiPAP. Had to go back on BiPAP last night due to re currence of hypercapnia. Likely secondary to oversedation from polypharmacy. Patient complaining of pain again this morning overdosed off quickly when denied giving her IV pain medication. Did receive 1 dose of Narcan overnight on 10/15 due to oversedation. No further episodes of oversedation. Weaning opiates. Pulmonology evaluating today. Anticipate discharge tomorrow. Problems addressed as follows: Chronic pancreatitis ?patient does have history of chronic pancreatitis it does not appear she is on pancreatic enzymes any longer. She takes gabapentin as well as Xanax at home. -Weaning oxycodone to 5 mg 4 times a day as needed. Discussed pain control goals with patient. She is disappointed with the wean however pain is not made worse by eating and likely has a somatic component. No indication for GI consult inpatient given normal lipase and normal liver enzymes as well as tolerance of p.o. intake. Will need follow-up with her outpatient GI that she is well-established with. - Of note, she reports that she has a bupivacaine pain pump and asked if she could give herself bolus doses. Informed her this would be okay at this time. Tolerating p.o. intake. - White count normal at 8.3, hemoglobin 10. Kidney function stable with BUN 13, creatinine 1.1. Liver enzymes totally normal with bilirubin 0.4, AST 17, ALT 13. - CBC, CMP, magnesium ordered for the morning Acute hypercapnic respiratory failure: Secondary to oversedation. Tolerates BiPAP. Continue BiPAP at night. - Evaluated by pulmonology today, recommend continuing Trelegy 100 inhaler and DuoNebs 4 times a day as needed. Has completed 3 days of 500 mg azithromycin. Today will be day 4 of ceftriaxone. Needs 5 days total antibiotics, consider completion prior to discharge home tomorrow or transition to cefdinir to complete 5-day course at discharge. Continue prednisone 40 mg daily for 5 days. Continue O2 supplementation for goal sats greater 90%. Needs to be initiated on CPAP at discharge with auto CPAP 8-22 with O2 supplementation at 2 L. Follow-up with pulmonology in 1 to 2 weeks. -Blood cultures remain negative along with urine cultures. Atrial fib? Continue Xarelto 20 mg nightly, continue verapamil 120 mg twice daily HFpEF?echo from January 2025 shows normal LV systolic function. Mild RV dilation with mild reduction in RV function. Biatrial dilation. RVSP of 30 to 35%. Currently BNP is slightly elevated at 740 but no findings of congestive heart failure on exam. Imaging does not show evidence of acute decompensation. Will likely be able to resume home diuretics in the morning. Continue Cymbalta 60 mg twice daily, Hypothyroid: Levothyroxine 100 mcg daily Tobacco use disorder: Continue nicotine patch 21 mg daily Continue Seroquel 50 mg daily Continue trazodone 100 mg nightly Continue ropinirole 0.25 mg nightly Diabetes mellitus?metformin will be held. Will provide sliding scale insulin coverage. Advance to low-fat bland diet Full code
--- NOTE | 2025-10-17 15:25 | CARE MANAGER ---
Spoke with patient regarding need for C-Pap vs Bi-PAP. She stated that she was unsure of which machine she had in the past. I spoke with Marlo and verified C-Pap in the past. Dr. Aleman gave settings of C-PAP 07/22 and 2L O2 at HS. I have reached out to [facility].
[2025-10-17 16:49] LABS: POC Glucose,Bedside 117 gm/dL (70-110)
--- NOTE | 2025-10-17 17:56 | PC.NURSE ---
arrived by w/c from ICU
[2025-10-17] MEDS: OXYCODONE 5MG IMMEDIATE RELEASE TABLET 5 MG PO (18:01)
[2025-10-17 20:53] LABS: POC Glucose,Bedside 109 gm/dL (70-110)
[2025-10-17] MEDS: AZITHROMYCIN 250MG TABLET 500 MG PO (21:20)
[2025-10-17] MEDS: TRAZODONE 50MG TABLET 100 MG PO (21:20)
[2025-10-17] MEDS: PANTOPRAZOLE 40MG TABLET 40 MG PO (21:20)
[2025-10-17] MEDS: ROPINIROLE HCL 0.25 MG TABLET PO (21:20)
[2025-10-18] VITALS: BP 101/71; PULSE 88; RESP 14; TEMP 37; O2SAT 95
[2025-10-18] MEDS: OXYCODONE 5MG IMMEDIATE RELEASE TABLET 5 MG PO ×2 (00:18→06:39)
[2025-10-18 04:00] VITALS: BP 90/55; PULSE 103; RESP 12; TEMP 36.9; O2SAT 100; BMI 33.7
[2025-10-18 05:35] LABS: POC Glucose,Bedside 100 gm/dL (70-110)
[2025-10-18 05:41] LABS: Hematocrit 38.0 % (37.0-47.0); Immature Granulocytes % 0.4 %; Mean Corpuscular HGB Conc 30.8 g/dL (31.8-35.4); Mean Corpuscular Hemoglobin 30.2 pg (27.0-31.2); Mean Corpuscular Volume 98.2 fl (81-99); Nucleated Red Blood Cells % 0 %; Platelet Count 293 K/mm3 (142-424); Red Blood Count 3.87 M/mm3 (4.20-5.40); Red Cell Distribution Width-SD 55.5 fL; White Blood Count 9.2 K/mm3 (4.8-10.8)
[2025-10-18 05:52] LABS: Alanine Aminotransferase 15 U/L (12-78); Albumin Level 3.4 g/dl (3.5-5.0); Albumin/Globulin Ratio 1.2 (1.1-1.8); Alkaline Phosphatase 111 U/L (38-126); Anion Gap 7.0 mEq/L (5-15); Aspartate Amino Transferase 21 U/L (14-36); Bilirubin,Total 0.4 mg/dl (0.2-1.3); Blood Urea Nitrogen 14 mg/dl (7-17); Calcium 8.3 mg/dl (8.4-10.2); Carbon Dioxide 36 mmol/L (22.0-30.0); Chloride 99 mmol/L (98-107); Creatinine Clearance Estimated 84 mL/min (50-200); Creatinine,Serum 1.00 mg/dl (0.52-1.04); Estimated Glomerular Filt Rate 56 ml/min (>60); GFR (African American) 67 ML/MIN (>60); Globulin 2.8 g/dL (1.3-3.2); Glucose 103 mg/dl (74-100); Potassium 5.0 mmoL/L (3.5-5.1); Sodium 137 mmol/L (136-145); Total Protein,Serum 6.2 g/dl (6.3-8.2)
[2025-10-18] MEDS: ALBUTEROL 0.083% 2.5 MG/3 ML NEB IH (06:09)
[2025-10-18] MEDS: FLUTICASONE/UMECLIDIN/VILANTER 100/62.5/25MCG INHALER 1 PUFF IH (06:09)
[2025-10-18 06:10] VITALS: PULSE 82; PULSE 84
[2025-10-18] MEDS: LEVOTHYROXINE 100MCG (0.1MG) TAB 100 MCG PO (06:39)
[2025-10-18] MEDS: LIPASE/PROTEASE/AMYLASE 1 EACH CAPSULE.DR PO ×2 (06:39→10:55)
[2025-10-18 06:48] LABS: Hemoglobin 11.7 g/dL (12.2-16.2)
[2025-10-18 07:29] VITALS: BP 155/89; PULSE 99; RESP 18; TEMP 36.8; O2SAT 92
[2025-10-18] MEDS: SENNOSIDES 8.6MG/DOCUSATE 50MG TABLET 1 TAB PO (08:07)
[2025-10-18] MEDS: QUETIAPINE 25MG TABLET 50 MG PO (08:07)
[2025-10-18] MEDS: GABAPENTIN 600MG TABLET 600 MG PO (08:08)
[2025-10-18] MEDS: MAGNESIUM OXIDE 400MG TABLET 400 MG PO (08:08)
--- NOTE | 2025-10-18 08:32 | [facility].PHAAMS2 ---
- Antimicrobial Stewardship Review culture & sensitivity review Stewardship interventions: culture & sensitivity review (CULTURES NEGATIVE. CONTINUING ABX TOTAL OF 5 DAYS. ASHOK.)
--- NOTE | 2025-10-18 09:35 | P.PN_ITS ---
Subjective *Date: 10/18/25 *Time: 10:48 Interval history: No acute respiratory vents overnight. Continue to remain on home oxygen supplementation patient admits she is weak and not ready to be discharged. Pulmonology Exam Inpatient Vital signs and Labs for Last 24 Hours: Temp Pulse Resp BP Pulse Ox O2 Del Method O2 Flow Rate 98.3 F 99 H 18 155/89 H 92 L Nasal Cannula 3 10/18/25 07:29 10/18/25 07:29 10/18/25 07:29 10/18/25 07:29 10/18/25 07:29 10/18/25 08:51 10/18/25 08:51 FiO2 40 10/17/25 02:27 Laboratory Results - last 24 hr 10/17/25 09:47: Chlamy pneumoniae PCR Not detected, Adenovirus (PCR) Not detected, B. pertussis DNA (PCR) Not detected, Coronavirus OC43 (PCR) Not detected, Coronavirus HKU1 (PCR) Not detected, Coronavirus 229E (PCR) Not detected, SARS-CoV-2 (PCR) Not detected, Coronavirus NL63 (PCR) Not detected, Human Metapneumovir PCR Not detected, Influenza A (H1) PCR Not detected, Influ A (H1N1/09) PCR Not detected, Influenza A (H3) PCR Not detected, Influenza Type A (PCR) Not detected, Influenza Type B (PCR) Not detected, M. pneumoniae (PCR) Not detected, Parainfluenza 1 (PCR) Not detected, Parainfluenza 2 (PCR) Not detected, Parainfluenza 3 (PCR) Not detected, Parainfluenza 4 (PCR) Not detected, RSV (PCR) Not detected, Entero/Rhino (PCR) Not detected 10/17/25 10:42: POC Glucose 117 H 10/17/25 16:42: POC Glucose 117 H 10/17/25 20:46: POC Glucose 109 10/18/25 05:25: WBC 9.2, RBC 3.87 L, Hgb 11.7 L D, Hct 38.0, MCV 98.2, MCH 30.2, MCHC 30.8 L, RDW 15.4, Plt Count 293, MPV 10.2, Neut % (Auto) 54.6, Lymph % (Auto) 31.9, [place] % (Auto) 8.5, Eos % (Auto) 4.2, Baso % (Auto) 0.4, Neut # (Auto) 5.0, Lymph # (Auto) 2.9, [place] # (Auto) 0.8, Eos # (Auto) 0.4, Baso # (Auto) 0.0, Sodium 137, Potassium 5.0, Chloride 99, Carbon Dioxide 36 H, Anion Gap 7.0, BUN 14, Creatinine 1.00, Estimated Creat Clear 84, Estimated GFR 56 L, Est GFR ( Amer) 67, Glucose 103 H, Calcium 8.3 L, Total Bilirubin 0.4, AST 21, ALT 15, Alkaline Phosphatase 111, Total Protein 6.2 L, Albumin 3.4 L D, Globulin 2.8, Albumin/Globulin Ratio 1.2 10/18/25 05:28: POC Glucose 100 Temp Pulse Resp BP Pulse Ox O2 Del Method O2 Flow Rate 98.3 F 98 H 13 92/58 L 91 L Nasal Cannula 2 10/17/25 08:13 10/17/25 08:13 10/17/25 08:13 10/17/25 08:13 10/17/25 08:31 10/17/25 08:31 10/17/25 08:31 FiO2 40 10/17/25 02:27 Laboratory Results - last 24 hr 10/16/25 11:04: POC Glucose 93 10/16/25 13:59: POC Glucose 118 H 10/16/25 15:42: POC Glucose 104 10/16/25 15:55: VBG pH 7.31, VBG pCO2 55.6 H, VBG pO2 45.2 H, VBG HCO3 27.1, VBG Total CO2 28.8 H, VBG O2 Saturation 80.2 H, VBG Base Excess 0.7, VBG Lactic Acid 0.8 10/16/25 20:08: POC Glucose 177 H 10/16/25 20:56: POC Glucose 180 H 10/17/25 05:38: WBC 8.3, RBC 3.60 L, Hgb 10.5 L, Hct 35.6 L, MCV 98.9, MCH 29.2, MCHC 29.5 L, RDW 15.3, Plt Count 265, MPV 10.2, Neut % (Auto) 58.7, Lymph % (Auto) 30.4, [place] % (Auto) 6.9, Eos % (Auto) 3.3, Baso % (Auto) 0.5, Neut # (Auto) 4.9, Lymph # (Auto) 2.5, [place] # (Auto) 0.6, Eos # (Auto) 0.3, Baso # (Auto) 0.0, Sodium 136, Potassium 4.8, Chloride 103, Carbon Dioxide 32 H, Anion Gap 5.8, BUN 13 D, Creatinine 1.10 H D, Estimated Creat Clear 77, Estimated GFR 50 L, Est GFR ( Amer) 60 D, Glucose 125 H, Calcium 8.1 L, Total Bilirubin 0.4, AST 17, ALT 13, Alkaline Phosphatase 89, Total Protein 5.7 L, Albumin 3.0 L D, Globulin 2.7, Albumin/Globulin Ratio 1.1 10/17/25 05:39: POC Glucose 133 H I & O for Labs for Last 24 Hours: Intake & Output 10/15/25 10/16/25 10/17/25 10/18/25 23:59 23:59 23:59 23:59 Intake Total 2127.4 / 2367.4 1800 / 1800 790 / 1270 480 / 480 Output Total 1000 / 1000 2700 / 2700 800 / 800 500 / 500 Balance 1127.4 / 1367.4 -900 / -900 -10 / 470 -20 / -20 Weight 201 lb 1.6 oz 212 lb 1.6 oz 211 lb 10.3 oz 209 lb 9 oz Intake & Output 10/14/25 10/15/25 10/16/25 10/17/25 23:59 23:59 23:59 23:59 Intake Total 300 / 300 2127.4 / 2367.4 1800 / 1800 500 / 500 Output Total 0 / 0 1000 / 1000 2700 / 2700 800 / 800 Balance 300 / 300 1127.4 / 1367.4 -900 / -900 -300 / -300 Weight 200 lb 201 lb 1.6 oz 212 lb 1.6 oz 211 lb 10.3 oz Microbiology Reports for the Last 24 Hours: Microbiology 10/14/25 15:19 Blood Blood Culture - Preliminary NO GROWTH AFTER 48 HOURS 10/14/25 14:59 Blood Blood Culture - Preliminary NO GROWTH AFTER 48 HOURS Constitutional: Present moderate distress Head: Present normocephalic and atraumatic ENT: Present normal exam, normal oropharynx and mucous membranes moist Neck: Present normal inspection and full ROM Respiratory: Present prolonged expiratory phase, normal respiratory effort and able to speak in complete sentences; Absent respiratory distress, wheezes or cradle placer ckles Cardiac: Present S1/S2, Tachycardia and radial pulses present GI: Present soft and distention; Absent tenderness or guarding Rectal (female): Present deferred (female): Present deferred Skin: Present intact; Absent cyanosis or jaundice Neuro: Present alert, awake and oriented x 3 Extremities: Present normal inspection; Absent clubbing or cyanosis Psychiatric: Present normal affect and cooperative Assessment and Plan *Assessment and plan (1) COPD exacerbation: Status: Acute Category: Medical Code(s): J44.1 - Chronic obstructive pulmonary disease with (acute) exacerbation (2) Acute on chronic respiratory failure with hypoxia and hypercapnia: Status: Acute Category: Medical Code(s): J96.21 - Acute and chronic respiratory failure with hypoxia; J96.22 - Acute and chronic respiratory failure with hypercapnia (3) FLACO (obstructive sleep apnea): Status: Acute Category: Medical Code(s): G47.33 - Obstructive sleep apnea (adult) (pediatric) Plan Ms. Arteaga is a 65-year-old female greater than [id number] smoking history smoked around 1999 prior history of COPD, chronic hypoxic respiratory failure 2.5 L nasal cannula self-reported consult reported history of sleep apnea noncompliant with her CPAP therapy as per the patient, last seen in the hospital January 2025 found to be having hypercarbic respiratory failure needing n oninvasive ventilatory therapy,Discharge patient on auto CPAP at 8-22 and oxygen supplementation at 2 L at this point of time. Polysomnography testing [facility] [address] of [address]0 CT upon admission bilateral diffuse ground glass opacities. Emphysematous changes. Lower lobe airspace disease/possible atelectasis ABG on admission hypercarbic resp failure 7.24, 66.5. Comprehensive respiratory viral PCR panel negative. Current receiving ceftriaxone azithromycin along with DuoNebs every 6 hours on scheduled basis On examination not appear to be in any respiratory distress. No significant wheezing noted on auscultation. Patient presentation is concerning for COPD exacerbation. However she does have underlying untreated sleep apnea that may be contributing to her worsening hypercarbic respiratory failure at this point of time. Interval update: No acute respiratory events overnight. Pending discharge CPAP therapy for her sleep apnea. Admits she is weak and not ready to be discharged from patient standpoint. Pending PT OT evaluation. Plan: Continue Trelegy 100 inhaler along with DuoNebs 4 times daily as needed Continue ceftriaxone and azithromycin, antibiotics can be weaned to cefdinir to complete a total of 5-day course Continue prednisone 40 mg daily or equivalent to complete a total of 5-day course Continue oxygen supplementation to maintain O2 saturation goal of 90% and above Initiate CPAP for sleep apnea - auto CPAP 8 with O2 supplementation at 2 L NC upon discharge # Thank you for involving pulmonary in this patient care. Will follow the krupa quigley in pulmonary clinic 1 to 2 weeks postdischarge.
[2025-10-18 12:00] VITALS: BP 130/82; PULSE 84; RESP 19; TEMP 36.8; O2SAT 94
--- NOTE | 2025-10-18 12:47 | EXP.DC.SUM ---
General Admission date:: 10/14/25 HPI HPI HPI: 65-year-old female patient with history of COPD as well as congestive heart failure presents to the ER with complaints of shortness of breath and nonproductive cough. She also reports chills and bodyaches. Denies chest pain. Has had symptoms for a couple of days. Reports that she was recently admitted at [facility] [place] for double pneumonia . Initial O2 sat was 97% on 3 L. She does wear 2 to 3 L nasal cannula at home. Blood gas did show a respiratory acidosis. She was placed on BiPAP in the ER and is tolerating that. She does use CPAP at home however she reports a recent change in insurance and she has had trouble getting a CPAP machine. She also complains of abdominal pain. She does have a history of chronic pancreatitis. Pain is in the epigastric area. States this is about her baseline, maybe a little worse. In the ER she received 2 doses of hydromorphone, Zofran, nebulizer and steroid. Hospital Course Hospital Course Hospital Course: Linda Arteaga 65-year-old female patient presents to the ER with shortness of breath. Workup revealed hypercapnic respiratory failure. She does have chronic hypoxic respiratory failure for which she uses 3 L of oxygen by nasal cannula at home. She also has history of FLACO and has been noncompliant with her CPAP. She states she has had a change in insurance and is unable to get a machine. After treatment with steroids and nebulizers she was then placed on BiPAP. Obstructive sleep apnea Acute hypercapnic respiratory failure: Secondary to oversedation. ? Patient gradually improved with BiPAP for hypercapnia, then transition to CPAP nightly. ? Pulmonology consulted, recommended Trelegy 100 and weaning antibiotics to cefdinir 300mg BID and prednisone 40 mg for total of 5 days. Recommended CPAP nightly?auto CPAP 07/22 with 2 L. ? Patient will crop picker her CPAP machine from [employer] [facility] on Friday. Chronic pancreatitis ? Patient does have history of chronic pancreatitis it does not appear she is on pancreatic enzymes any longer. She takes gabapentin as well as Xanax at home. - Weaning oxycodone to 5 mg 4 times a day as needed. Discussed pain control goals with patient. She is disappointed with the wean however pain is not made worse by eating and likely has a somatic component. No indication for GI consult inpatient given normal lipase and normal liver enzymes as well as tolerance of p.o. intake. - Referred to GI for further evaluation and management. Atrial fib? Continue Xarelto 20 mg nightly, continue verapamil 120 mg twice daily Continue Cymbalta 60 mg twice daily, Hypothyroid: Levothyroxine 100 mcg daily Tobacco use disorder: Continue nicotine patch 21 mg daily Continue Seroquel 50 mg daily Continue trazodone 100 mg nightly Continue ropinirole 0.25 mg nightly Diabetes mellitus?continue home regimen. Exam Data for Last 24 hours Vital signs and Labs for Last 24 Hours: Temp Pulse Resp BP Pulse Ox O2 Del Method O2 Flow Rate 98.3 F 84 19 130/82 94 L Nasal Cannula 3 10/18/25 12:00 10/18/25 12:00 10/18/25 12:00 10/18/25 12:00 10/18/25 12:00 10/18/25 12:00 10/18/25 08:51 FiO2 40 10/17/25 02:27 Laboratory Results - last 24 hr 10/17/25 16:42: POC Glucose 117 H 10/17/25 20:46: POC Glucose 109 10/18/25 05:25: WBC 9.2, RBC 3.87 L, Hgb 11.7 L D, Hct 38.0, MCV 98.2, MCH 30.2, MCHC 30.8 L, RDW 15.4, Plt Count 293, MPV 10.2, Neut % (Auto) 54.6, Lymph % (Auto) 31.9, [place] % (Auto) 8.5, Eos % (Auto) 4.2, Baso % (Auto) 0.4, Neut # (Auto) 5.0, Lymph # (Auto) 2.9, [place] # (Auto) 0.8, Eos # (Auto) 0.4, Baso # (Auto) 0.0, Sodium 137, Potassium 5.0, Chloride 99, Carbon Dioxide 36 H, Anion Gap 7.0, BUN 14, Creatinine 1.00, Estimated Creat Clear 84, Estimated GFR 56 L, Est GFR ( Amer) 67, Glucose 103 H, Calcium 8.3 L, Total Bilirubin 0.4, AST 21, ALT 15, Alkaline Phosphatase 111, Total Protein 6.2 L, Albumin 3.4 L D, Globulin 2.8, Albumin/Globulin Ratio 1.2 10/18/25 05:28: POC Glucose 100 I & O for Last 24 hours: Intake & Output 10/15/25 10/16/25 10/17/25 10/18/25 23:59 23:59 23:59 23:59 Intake Total 2127.4 / 2367.4 1800 / 1800 790 / 1270 910 / 910 Output Total 1000 / 1000 2700 / 2700 800 / 800 500 / 500 Balance 1127.4 / 1367.4 -900 / -900 -10 / 470 410 / 410 Weight 91.217 kg 96.207 kg 96 kg 95.056 kg Constitutional Constitutional: no acute distress and chronically ill appearing *Routine HEENT Exam Head: Present normocephalic Eye: Present EOMI and PERRL ENT: Present mucous membranes moist *Routine Neck Exam Neck: Present supple; Absent lymphadenopathy *Routine Respiratory Exam Respiratory: Present CTA bilaterally *Routine Cardiovascular Exam Cardiovascular: Present RRR *Routine Abdominal Exam Abdominal: Present soft and normoactive bowel sounds; Absent tenderness *Routine Extremities Exam Extremities: Absent cyanosis, clubbing or edema *Routine Skin Exam Skin: Present warm; Absent rash *Routine Neurological Exam Neurological: Present alert and oriented X3 Results Data Completed and Pending Labs on day of discharge: Labs from last 24 hours 10/18/25 10/18/25 10/17/25 05:28 05:25 20:46 WBC 9.2 RBC 3.87 L Hgb 11.7 L D Hct 38.0 MCV 98.2 MCH 30.2 MCHC 30.8 L RDW 15.4 Plt Count 293 MPV 10.2 Neut % (Auto) 54.6 Lymph % (Auto) 31.9 [place] % (Auto) 8.5 Eos % (Auto) 4.2 Baso % (Auto) 0.4 Neut # (Auto) 5.0 Lymph # (Auto) 2.9 [place] # (Auto) 0.8 Eos # (Auto) 0.4 Baso # (Auto) 0.0 Sodium 137 Potassium 5.0 Chloride 99 Carbon Dioxide 36 H Anion Gap 7.0 BUN 14 Creatinine 1.00 Estimated Creat Clear 84 Estimated GFR 56 L Est GFR ( Amer) 67 Glucose 103 H POC Glucose 100 109 Calcium 8.3 L Total Bilirubin 0.4 AST 21 ALT 15 Alkaline Phosphatase 111 Total Protein 6.2 L Albumin 3.4 L D Globulin 2.8 Albumin/Globulin Ratio 1.2 10/17/25 16:42 WBC RBC Hgb Hct MCV MCH MCHC RDW Plt Count MPV Neut % (Auto) Lymph % (Auto) [place] % (Auto) Eos % (Auto) Baso % (Auto) Neut # (Auto) Lymph # (Auto) [place] # (Auto) Eos # (Auto) Baso # (Auto) Sodium Potassium Chloride Carbon Dioxide Anion Gap BUN Creatinine Estimated Creat Clear Estimated GFR Est GFR ( Amer) Glucose POC Glucose 117 H Calcium Total Bilirubin AST ALT Alkaline Phosphatase Total Protein Albumin Globulin Albumin/Globulin Ratio Preliminary micro results at discharge 10/14/25 15:19 Blood Culture - Preliminary Blood NO GROWTH AFTER 48 HOURS 10/14/25 14:59 Blood Culture - Preliminary Blood NO GROWTH AFTER 48 HOURS DS: Diagnosis Discharge Diagnosis (1) COPD exacerbation: Status: Acute Code(s): J44.1 - Chronic obstructive pulmonary disease with (acute) exacerbation (2) Acute on chronic respiratory failure with hypoxia and hypercapnia: Status: Acute Code(s): J96.21 - Acute and chronic respiratory failure with hypoxia; J96.22 - Acute and chronic respiratory failure with hypercapnia (3) FLACO (obstructive sleep apnea): Status: Acute Code(s): G47.33 - Obstructive sleep apnea (adult) (pediatric) Meds Home Medications and Allergies Home Medications ?Medication ?Instructions ?Recorded ?Confirmed ?Type atorvastatin 40 mg tablet 40 mg PO HS #90 tabs 02/07/25 10/15/25 Rx pantoprazole 40 mg tablet,delayed 40 mg PO HS 30 days #30 tabs 04/06/25 10/15/25 Rx release potassium chloride 10 mEq 10 meq PO DAILY #90 tabs 04/13/25 10/15/25 Rx tablet,extended release duloxetine 60 mg capsule,delayed 60 mg PO BID 90 days #180 caps 04/18/25 10/15/25 Rx release rivaroxaban 20 mg tablet (Xarelto) 20 mg PO QPMWITHMEAL 05/12/25 10/15/25 History gabapentin 600 mg tablet 600 mg PO BID 05/26/25 10/15/25 History ropinirole 0.25 mg tablet 0.25 mg PO HS 05/26/25 10/15/25 History verapamil 120 mg tablet,extended 120 mg PO BID 06/23/25 10/15/25 History release trazodone 100 mg tablet 100 mg PO HS #90 tabs 07/08/25 10/15/25 Rx montelukast 10 mg tablet 10 mg PO HS #30 tabs 07/18/25 10/15/25 Rx levothyroxine 100 mcg tablet 100 mcg PO DAILY 07/25/25 10/15/25 History magnesium oxide 400 mg (241.3 mg 400 mg PO BID #60 tabs 08/26/25 10/15/25 Rx magnesium) tablet ferrous sulfate 325 mg (65 mg 325 mg PO BID #60 tabs 09/26/25 10/15/25 Rx iron) tablet metformin 1,000 mg tablet 1,000 mg PO BIDWMEAL #60 tabs 09/26/25 10/15/25 Rx quetiapine 50 mg tablet (Seroquel) 50 mg PO DAILY #90 tabs 09/26/25 10/15/25 Rx alprazolam 1 mg tablet 1 mg PO BIDP PRN anxiety 10/15/25 10/15/25 History ehhbal-rzzxrvrl-ckgvawa(pork)12,000-38,000-60,000 1 cap PO AC 10/15/25 10/15/25 History unit capsule,del rel (Creon) metoprolol succinate 25 mg 12.5 mg PO DAILY 10/15/25 10/15/25 History tablet,extended release 24 hr polyethylene glycol 3350 17 17 g PO DAILYP PRN constiptation 10/15/25 10/15/25 History gram/dose oral powder (Miralax) ranolazine 500 mg tablet,extended 500 mg PO BID 10/15/25 10/15/25 History release,12 hr cefdinir 300 mg capsule 300 mg PO BID 1 day #2 caps 10/18/25 Rx fluticasone fur. 100 mcg-umeclid 1 inh inhalation DAILY #60 ea 10/18/25 Rx 62.5 mcg-vilant 25 mcg inhalat.powder (Trelegy Ellipta) prednisone 20 mg tablet 40 mg (2 x 20 mg) PO DAILY 3 days 10/18/25 Rx #6 tabs New Prescriptions to Start Prescriptions: cefdinir Jewell,Alan [id number] [Trelegy Ellipta] JewellAlan John Allergies Allergy/AdvReac Type Severity Reaction Status Date / Time codeine (CODEINE) Allergy Intermediate N/V Verified 06/23/25 13:14 ketorolac (KETOROLAC) Allergy Intermediate Hives Verified 06/23/25 13:14 meperidine (MEPERIDINE) Allergy Intermediate Hives Verified 06/23/25 13:14 tramadol (TRAMADOL) Allergy Intermediate Hives Verified 06/23/25 13:14 ciprofloxacin AdvReac Severe Interacts Verified 06/23/25 13:14 with cymbalta Discharge Plan Disposition Patient Disposition: Home, Self-Care Condition: Fair Discharge Order Discharge Orders: Discharge Order (Routine); Ordered 10/18/25 Ordered By: Alan Corcoran Follow up Plan Follow up with: Juan C Colón MD [Primary Care Provider, Family Practice] - 10/26/25 9:40 am Marley Herrnig APRN [Nurse Practitioner, Gastroenterology] - 2 weeks Prescriptions/Medication Reconciliation: New Trelegy Ellipta 100-62.5-25 mcg Blister With Device 1 inh inhalation DAILY Qty: 60 0RF prednisone 20 mg Tablet 40 mg PO DAILY 3 Days Qty: 6 0RF cefdinir 300 mg capsule 300 mg PO BID 1 Days Qty: 2 0RF Continued Xarelto 20 mg tablet 20 mg PO QPMWITHMEAL verapamil 120 mg tablet extended release 120 mg PO BID atorvastatin 40 mg tablet 40 mg PO HS Qty: 90 3RF pantoprazole 40 mg tablet,delayed release (DR/EC) 40 mg PO HS 30 Days Qty: 30 0RF potassium chloride 10 mEq tablet extended release 10 meq PO DAILY Qty: 90 0RF duloxetine 60 mg capsule,delayed release(DR/EC) 60 mg PO BID 90 Days Qty: 180 0RF trazodone 100 mg tablet 100 mg PO HS Qty: 90 0RF montelukast 10 mg tablet 10 mg PO HS Qty: 30 2RF magnesium oxide 400 mg (241.3 mg magnesium) tablet 400 mg PO BID Qty: 60 3RF quetiapine [Seroquel] 50 mg tablet 50 mg PO DAILY Qty: 90 3RF ferrous sulfate 325 mg (65 mg iron) tablet 325 mg PO BID Qty: 60 0RF metformin 1,000 mg tablet 1,000 mg PO BIDWMEAL Qty: 60 0RF gabapentin 600 mg tablet 600 mg PO BID ropinirole 0.25 mg tablet 0.25 mg PO HS levothyroxine 100 mcg tablet 100 mcg PO DAILY alprazolam 1 mg tablet 1 mg PO BIDP PRN (Reason: anxiety) metoprolol succinate 25 mg tablet extended release 24 hr 12.5 mg PO DAILY ranolazine 500 mg tablet extended release 12 hr 500 mg PO BID Creon 12,000-38,000 -60,000 unit capsule,delayed release(DR/EC) 1 cap PO AC polyethylene glycol 3350 [Miralax] 17 gram/dose powder 17 g PO DAILYP PRN (Reason: constiptation) Problem Reconciliation Problems Reviewed?: Yes Patient Discharge Instructions Patient Instructions: Chronic Pancreatitis Print Language: Romansh Providers Primary Care Provider: Juan C Colón Admit Provider: Chandler Cody Attending Provider: Chandler Cody
[2025-10-18 16:13] LABS: POC Glucose,Bedside 109 gm/dL (70-110)
[2025-10-19 15:42] LABS: POC Glucose,Bedside 143 gm/dL (70-110)
--- NOTE | 2025-10-20 10:54 | SW/DCPLANNER ---
Spoke with patient on the phone. Patient stated that she is in bad shape. Patient stated that she is aware of her upcoming appointments. Patient stated that her new medicine was brought to her room. Patient stated that she has no concerns or questions at this time. Raymond Younger
== END 2025-10-18 14:09 | disposition home or self-care (01) | DRG 189 ==
LOC: ER 17:05 → ICU 17:41 → 2ND 10-17 17:13
PROVIDERS: Internal Medicine Pulmonary Disease; Nurse Practitioner Acute Care; Physician Assistant; Admitting Provider Internal Medicine Adolescent Medicine; Emergency Provider Student in an Organized Health Care Education/Training Program; PCP Family Medicine; Visit Provider Internal Medicine Adolescent Medicine
DX: J96.02 Acute respiratory failure with hypercapnia (principal); J44.1 Chronic obstructive pulmonary disease with (acute) exacerbation; K86.1 Other chronic pancreatitis; Q45.3 Other congenital malformations of pancreas and pancreatic duct; I50.32 Chronic diastolic (congestive) heart failure; J96.11 Chronic respiratory failure with hypoxia; G47.33 Obstructive sleep apnea (adult) (pediatric); I11.0 Hypertensive heart disease with heart failure; E03.9 Hypothyroidism, unspecified; E11.9 Type 2 diabetes mellitus without complications; I48.0 Paroxysmal atrial fibrillation; E78.2 Mixed hyperlipidemia; I25.10 Atherosclerotic heart disease of native coronary artery without angina pectoris; F17.290 Nicotine dependence, other tobacco product, uncomplicated; T40.2X5A Adverse effect of other opioids, initial encounter; Z91.198 Patient's noncompliance with other medical treatment and regimen for other reason; Z95.5 Presence of coronary angioplasty implant and graft; Z79.85 Long-term (current) use of injectable non-insulin antidiabetic drugs; Z79.01 Long term (current) use of anticoagulants; Z79.890 Hormone replacement therapy; Z79.899 Other long term (current) drug therapy; Z88.5 Allergy status to narcotic agent; Z88.6 Allergy status to analgesic agent; Z88.1 Allergy status to other antibiotic agents; Z88.8 Allergy status to other drugs, medicaments and biological substances
CPT/HCPCS: 0223U; 36415; 36600; 71045; 71275; 74177; 80053; 80307; 81001; 82803; 82962; 83605; 83690; 83735; 83880; 84484; 85025; 87040; 93005; 94640; 94660; 94761; 99285; J0456; J0696; J1171; J1642; J2312; J2405; J2919; J7030; J7050; Q9967

== ENCOUNTER 2025-11-03 12:07 | Emergency (ER) | payer MEDICARE, MEDICAID, SELFPAY ==
--- OUTSIDE RECORDS SUMMARY | 2025-09-30 20:51 | XMS_ITS | Encounter Summary ---
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 Procedures [place] OFFICE/OUTPATIENT NEW MODERATE MDM 45 MINUTES Baylee Sesay PA-C [address] [facility] [address] [place] [address] Phone: tel: fax: Rubin Kearney MD [address] [facility] [address] [place] [address] Phone: tel: fax: Referral ID Status Reason Start Date Expiration Date Visits Requested Visits Authorized [id number] Authorized Specialty Services Required 10/05/2025 01/04/2027 1 [...] Atrial fibrillation with rapid ventricular response Procedures [place] OFFICE/OUTPATIENT NEW MODERATE MDM 45 MINUTES Sabrina Stephens MD [facility] [address] [address] Phone: tel: fax: Referral ID Status Reason Start Date Expiration Date Visits Requested Visits Authorized [id number] Pending Review Specialty Services Required 10/03/2025 01/02/2027 999 999 Reason for Visit * Reason Comments Abdominal Pain * Auth/Cert Specialty Diagnoses / Procedures Referred By Carlyn t Referred To Contact Diagnoses COPD exacerbation Referral ID Status Reason Start Date Expiration Date Visits Re quested Visits Authorized [id number] 1 1 Encounter Details Date Type Department Care Team (Late st Contact Info) Description 09/30/2025 9:51 PM EDT - 10/05/2025 6:18 PM EST Hospital Encounter [address] [place] [address] Orlando Anthony MD [address] [place] [address] [place] [address] Franklin Thorpe MD [address] [address] Roc Malcolm MD [address] [address] Sabrina Stephens MD [address] [address] Trudy Bolanos, [address] [address] Pneumonia of both lower lobes due to [...] care, and heating? Not very hard 10/02/2025 [facility] [place] [facility] Occup[facility] - Occupational Stress [...] things needed for daily living? No 10/02/2025 [facility] Utilities Answer Date Recorded In the [...] GED or equivalent No 10/02/2025 Preferred Language Latvian 10/02/2025 PHQ-2 Answer Date Recorded Patient Health [...] 9:59 PM EDT Shayla Head RN * [place] Suicide Severity Rating Scale (Screener/Recent Self-Report) Question [...] from the original note were not included. [facility] Medicine Services ELOPEMENT AGAINST MEDICAL ADVICE [...] treatment after discharge. Follow-up provider: MICHAEL COLÓN [[id number]] Reason/Clinical Findings: Below baseline ambulation and ADLs Describe mobility limitations that make leaving home difficult: Impaired mobility, gait, strength, and endurance Nursing/Therapeutic Services Requested: [facility]irement [facility] Therapy Occupational Therapy care home orders: COPD management PT orders: Gait Training [...] Everywhere. * Chronic Obstructive Pulmonary Disease Exacerbation (Latvian) * Aspirin and Your Heart: What to Know (Latvian) * Pancrelipase Capsules (Latvian) * Thiamine Tablets (Latvian) * Prednisone Tablets (Latvian) * Community-Acquired Pneumonia Adult (Latvian) documented in this encounter Medications at Time [...] by provider Daily. 30 patch 10/06/2025 pancrelipase, Oop-Cfjl-Eutd, (CREON) 130[address] units capsule delayed-release particles capsule Take 1 [...] from the original note were not included. [facility] Medicine Services PROGRESS NOTE Patient Name: [...] MRSA Screen, PCR (Inpatient) - Swab, Nares [[id number]] (Abnormal) Collected: 10/01/25 1036 Lab Status: Final [...] MD 10/03/2025 3:55 PM EST Workstation ID: [id number] FL Limited Ugi For Mbs Reflux Single-Contrast [...] MD 10/03/2025 3:55 PM EST Workstation ID: [id number] Results for orders placed during the hospital [...] Daily nicotine, 1 patch, Transdermal, Q24H pancrelipase (Mgm-Sdgv-Zxre), 12,000 units of lipase, Oral, TID With [...] as an outpatient -PPI twice daily -Creon -MANAGER [employer] INSURANCE followed, placed on mechanical ground textures, thin [...] determinent of health information and explained the [facility] phone number and explained to call them for apartments. Row Name 10/03/25 1343 Plan Plan home with HH Patient/Family in Agreement with Plan yes Plan Comments CM spoke with patient over the phone. Patient agrees to HH at [place]. CM informed the nurse that [employer] in [facility] is a resource the patient can contact for housing and rental assistance. CM spoke with Kirstie at [facility] and nurse is to call Kirstie at [phone] when patient is discharged. CM will continue [...] from the original note were not included. [facility] Medicine Services PROGRESS NOTE Patient Name: [...] MRSA Screen, PCR (Inpatient) - Swab, Nares [[id number]] (Abnormal) Collected: 10/01/25 1036 Lab Status: Final [...] Daily nicotine, 1 patch, Transdermal, Q24H pancrelipase (Ucu-Vzvo-Ttib), 12,000 units of lipase, Oral, TID With [...] from the original note were not included. [facility] Medicine Services PROGRESS NOTE Patient Name: [...] MRSA Screen, PCR (Inpatient) - Swab, Nares [[id number]] (Abnormal) Collected: 10/01/25 1036 Lab Status: Final [...] MD 10/01/2025 6:55 AM EDT Workstation ID: [id number] CT Abdomen Pelvis With Contrast Result Date: [...] MD 09/30/2025 11:57 PM EDT Workstation ID: [id number] CT Angiogram Chest Pulmonary Embolism Result Date: [...] MD 09/30/2025 11:54 PM EDT Workstation ID: [id number] XR Chest 1 View Result Date: 09/30/2025 [...] MD 09/30/2025 10:38 PM EDT Workstation ID: [id number] Results for orders placed during the hospital [...] Daily nicotine, 1 patch, Transdermal, Q24H pancrelipase (Bti-Ltub-Azht), 12,000 units of lipase, Oral, TID With [...] Roc Malcolm MD 10/02/25 * Harley Kaminski, [facility] - 10/01/2025 8:43 PM EDT Pharmacy to [...] from the original note were not included. [facility] Medicine Services ADMISSION FOLLOW-UP NOTE Patient admitted after midnight, H&P by my partner performed earlier on today's date reviewed. Interim findings, labs, and charting also reviewed. [facility] Hospital Problem List has been managed [...] from the original note were not included. [facility] Medicine Services HISTORY AND PHYSICAL Patient Name: Linda Arteaga : 1960 Primary Care Physician: Michael Colón MD Date of admission: 09/30/2025 Subjective Subjective Chief Complaint: Multiple complaints HPI: Linda Arteaga is a 65 y.o. female with a past medical history of chronic pancreatitis with portin place, HTN, A fib on xarelto, COPD on 3 L NC, GERD who presented to [facility] with SOB and abdominal pain. Patient [...] PORT REMOVAL; Surgeon: Tha Sanchez MD; Location: [facility]; Service: General; Laterality: N/A; Family History: family [...] omeprazole, polyethyleneglycol, potassium chloride, promethazine, rOPINIRole, rivaroxaban, kavnbo-motqomqgy-lbmgbutur sulfates, ticagrelor, and traZODone Allergies Allergen Reactions [...] Date/Time Respiratory Panel PCR w/COVID-19(SARS-CoV-2) CHRISTINA/JUANA/BELEN/PAD/COR/TYRA In-House, PALLET REPAIRER Swab in UTM/VTM, 2 HR TAT - Swab, Nasopharynx [[id number]] (Normal) Collected: 10/01/25 0007 Lab Status: Final [...] MD 09/30/2025 11:57 PM EDT Workstation ID: [id number] CT Angiogram Chest Pulmonary Embolism Result Date: [...] MD 09/30/2025 11:54 PM EDT Workstation ID: [id number] XR Chest 1 View Result Date: 09/30/2025 [...] MD 09/30/2025 10:38 PM EDT Workstation ID: [id number] Results for orders placed during the hospital [...] 3 L NC, GERD who presented to [facility] with SOB and abdominal pain. Acute [...] information. Patient understands to reach out to vehicle refinisher via nursing staff to have it completed. * Abdulkadir Noguera APRN - 10/01/2025 12:38 PM EDTAssociated Order(s): Inpatient Gastroenterology Consult [facility]: Inpatient Gastroenterology Consult Inpatient Gastroenterology Consult [...] of breath, abdominal pain and melena to [facility] 10/01/2025. Patient reports, that she experienced [...] PORT REMOVAL; Surgeon: Tha Sanchez MD; Location: [facility]; Service: General; Laterality: N/A; FAM HX: Family [...] MD 10/01/2025 6:55 AM EDT Workstation ID: [id number] CT Abdomen Pelvis With Contrast Result Date: [...] MD 09/30/2025 11:57 PM EDT Workstation ID: [id number] CT Angiogram Chest Pulmonary Embolism Result Date: [...] MD 09/30/2025 11:54 PM EDT Workstation ID: [id number] XR Chest 1 View Result Date: 09/30/2025 [...] MD 09/30/2025 10:38 PM EDT Workstation ID: [id number] ASSESSMENTS/PLANS 1. Concerns for gastrointestinal bleeding, melanotic [...] skin issues arise. * Marissa Flowers, MS CCC-MANAGER LIFE INSURANCE - 10/03/2025 11:03 AM EST Goal Outcome Evaluation: Plan of Care Reviewed With: patient MBS completed. Anticipated Discharge Disposition (MANAGER LIFE INSURANCE): No further MANAGER LIFE INSURANCE services warranted [employer]GER [employer] Swallowing Diagnosis: functional oral phase, functional pharyngeal [...] with home health * Rissa Hidalgo, MS CCC-MANAGER LIFE INSURANCE - 10/02/2025 11:01 AM EST Goal Outcome Evaluation: Plan of Care Reviewed With: patient Anticipated Discharge Disposition (MANAGER LIFE INSURANCE): home [employer]GER [employer] Swallowing Diagnosis: mild, oral dysphagia, R/O pharyngeal dysphagia, suspected esophageal dysphagia (10/02/25 0909) documented in this encounter ED Notes * Dorina Shetty RN - 10/01/2025 5:20 AM EDT fresh foods technician spoke with MD Thorpe regarding 4G not [...] NRB 10L. Unit changed to 4G per Bird Tender. Attempted nursing report to 4G. 4G Charge RNstated that they don't typically take pts on NRB. fresh foods technician Kylie notified who notified [employer]. fresh foods technician attempting to contact admitting MD at this [...] PORT REMOVAL; Surgeon: Tha Sanchez MD; Location: [facility]; Service: General; Laterality: N/A; FAMILY HISTORY Family [...] 09/30/25 Respiratory Panel PCR w/COVID-19(SARS-CoV-2) CHRISTINA/JUANA/BELEN/PAD/COR/TYRA In-House, PALLET REPAIRER Swab in UTM/VTM, 2 HR TAT - [...] MD 09/30/2025 11:57 PM EDT Workstation ID: [id number] CT Angiogram Chest Pulmonary Embolism Result Date: [...] MD 09/30/2025 11:54 PM EDT Workstation ID: [id number] XR Chest 1 View Result Date: 09/30/2025 [...] MD 09/30/2025 10:38 PM EDT Workstation ID: [id number] Telemetry Scan Final Result ECG 12 Lead [...] Procedures Respiratory Panel PCR w/COVID-19(SARS-CoV-2) CHRISTINA/JUANA/BELEN/PAD/COR/TYRA In-House, PALLET REPAIRER Swab in UTM/VTM, 2 HR TAT - [...] occasional PVCs at a rate of 73, [id number], normal axis, no STEMI [AC] 2212 Administering [...] Respiratory Panel PCR w/COVID-19(SARS-CoV-2) CHRISTINA/JUANA/BELEN/PAD/COR/TYRA In- House, PALLET REPAIRER Swab in UTM/VTM, 2 HR TAT - [...] of Care: Telemetry [5] Diagnosis: COPD exacerbation [[id number]] Admitting Physician: FRANKLIN THORPE [[id number]] Attending Physician: FRANKLIN THORPE [[id number]] Is patient appropriate for Inpatient Observation Unit?: Yes [1] Please note that portions of this note were completed with a voice recognition program. Note Disclaimer: At [facility], we believe that sharing information builds trust and better relationships. You are receiving this note because you recently visited [facility]. It is possible you will [...] orders for discharge. Spoke to liaison for [facility] to advise of discharge today. Spoke with patient at bedside regarding discharge plan who indicates she does not have an Oxygen tank to travel home and her fiance will not be able to bring one. No other needs verbalized. Called patient DME provider, Deyanira, who will have tank delievered to patient room today. Patient plan is to discharge home with [facility] today via car with family to transport. Selected Continued Care - Admitted Since 09/30/2025 Destination No services have been selected for the patient. Durable Medical Equipment Coordination complete. Service Provider Services Address Phone Fax Patient Preferred [facility] [address], [facility] [address] [phone] -- Dialysis/Infusion No services have been selected for the patient. Home Medical Care Coordination complete. Service Provider Services Address Phone Fax Patient Preferred [facility] Home Rehabilitation, Home Nursing [address], [address], [facility] [address] [phone] -- Therapy No services have been selected for the patient. Community & DME No services have been selected for the patient. Community Resources No active community resources. Final Discharge Disposition Code: 06 - home with home health care * Case Management/Social Work - Courtney Dalton RN - 10/04/2025 3:51 PM EST Continued Stay Note [place] Patient Name: Linda Arteaga Today's Date: 10/04/2025 Admit Date: 09/30/2025 Plan: update Discharge Plan Row Name 10/04/25 4710 Plan Plan update Patient/Family in Agreement with Plan yes Plan Comments Spoke with patient at bedside this morning who reports she is feeling better every day. CM advised will contact [facility] when she is discharged home, patient verbalizes understanding and agreement with plan. CM following. Patient plan is to discharge home with [facility] via car with her daughter to transport. [...] the phone. Patient agrees to HH at [place]. CM informed the nurse that [employer] in [facility] is a resource the patient can contact for housing and rental assistance. CM spoke with Kirstie at [facility] and nurse is to call Kirstie at [phone] when patient is discharged. CM will continue to follow. Final Discharge Disposition Code 06 - home with home health care Discharge Codes No documentation. Expected Discharge Date and Time Expected Discharge Date Expected Discharge Time Oct 04, 2025 Marilyn Wetzel, LAITH * MBS/VFSS/SANDRA - Marissa Flowers MS [facility]-MANAGER LIFE INSURANCE - 10/03/2025 11:04 AM EST Images from [...] PORT REMOVAL; Surgeon: Tha Sanchez MD; Location: [facility]; Service: General; Laterality: N/A; MANAGER [employer] INS[employer]ANCE Recommendation and Plan Recommended discharge disposition is based on the functional assessment performed by PT/OT/Speech therapy (as applicable) and may not reflect the medical necessity determined by your provider or services covered by an individual patient's insurance plan or patient resource. [employer]GER [employer] Swallowing Diagnosis: functional oral phase, functional pharyngeal phase, suspected esophageal dysphagia (10/03/25999) MANAGER [employer] INS[employer] Diet Recommendation: mechanical ground textures, thin liquids, other (see comments) (can adjustsolids to pt preference. Ground current preference r/t edentulous state.) (10/03/25 1000) Recommended Precautions and Strategies: reflux precautions (10/03/25999) [employer]NAGER [employer] Rec. for Method of Medication Administration: as tolerated (10/03/25999) Monitor for Signs of Aspiration: no problems identified requiring continued intervention (10/03/25 1000) Recommended Diagnostics: No further MANAGER [employer] INSUR[employer] services recommended (10/03/25 1000) Swallow Criteria for Skilled Therapeutic Interventions Met: no problems identified which require skilled intervention (10/03/25 1000) Anticipated Discharge Disposition (MANAGER LIFE INSURANCE): No further MANAGER LIFE INSURANCE services warranted (10/03/25 1000) Therapy Frequency (Swallow): evaluation only (10/03/25 1000) SWALLOW EVALUATION (Last 72 Hours) MANAGER [employer] INS[employer] Adult Swallow Evaluation Row Name 10/03/25 1000 10/02/25 0946 Rehab Evaluation Document Type discharge evaluation/summary -SM [...] options;Oral care recommendations and rationale;Aspiration precautions - MANAGER [employer] Evaluation Clinical Impression MANAGER [employer] Swallowing Diagnosis functional oral phase;functional pharyngeal phase;suspected esophageal dysphagia - mild;oral dysphagia;R/O pharyngeal dysphagia;suspected esophageal dysphagia - Functional Impact -- risk of aspiration/pneumonia - Rehab Potential/Prognosis, Swallowing -- good, to achieve stated therapy goals - Swallow Criteria for Skilled Therapeutic Interventions Met no problems identified which require skilled intervention - demonstrates skilled criteria - Recommendations Therapy Frequency (Swallow) evaluation only - -- MANAGER [employer] INSURANCE Diet Recommendation mechanical ground textures;thin liquids;other (see comments) can adjust solids to pt preference. Ground current preference r/t edentulous state. - mechanical ground textures;thin liquids - Recommended Diagnostics No further MANAGER LIFE INSURANCE services recommended - VFSS (MBS);with esophageal screen - Recommended Precautions and Strategies reflux precautions - upright posture during/after eating;small bites of food and sips of liquid;general aspiration precautions;reflux precautions - Oral Care Recommendations -- Oral Care BID/PRN;Toothbrush - MANAGER [employer] INSUR[employer] Rec. for Method of Medication Administration as tolerated - meds whole;with thin liquids;withpuree;as tolerated - Monitor for Signs of Aspiration no problems identified requiring continued intervention - yes;notify MANAGER LIFE INSURANCE if any concerns -CH Anticipated Discharge Disposition (MANAGER [employer] INSURANCE) No further MANAGER LIFE INSURANCE services warranted - home -CH Demonstrates Need for Referral to Another Service -- gastroenterology;dedicated esophageal assessment - User Emerson (r) = Recorded By, (t) = Taken By, (c) = Cosigned By Initials Name Effective Dates Marissa Cerda MS CCC-MANAGER LIFE INSURANCE 12/20/24 - iRssa Hidalgo MS CCC-MANAGER LIFE INSURANCE 12/20/24 - EDUCATION The patient has been educated in the following areas: Dysphagia (Swallowing Impairment) Modified Diet Instruction. Time Calculation: Time Calculation- MANAGER LIFE INSURANCE Row Name 10/03/25 1104 Time Calculation- MANAGER LIFE INSURANCE MANAGER LIFE INSURANCE Start Time 1000 -SM MANAGER [employer] INSURANCE Received On 10/03/25 - Untimed Charges 16558-SR Motion Fluoro Eval Swallow Minutes 42 -SM Total Minutes Untimed Charges Total Minutes 42 -SM Total Minutes 42 -SM User Emerson (r) = Recorded By, (t) = Taken By, (c) = Cosigned By Initials Name Provider Type Marissa Cerda MS CCC-MANAGER LIFE INSURANCE Speech and Language Pathologist Therapy Charges for Today Code Description Service Date Service Provider Modifiers Qty [id number] HC ST MOTION FLUORO EVAL SWALLOW 3 10/03/2025 Marissa Flowers MS CCC-MANAGER LIFE INSURANCE GN 1 Marissa Flowers MS CCC-MANAGER LIFE INSURANCE 10/03/2025 * Therapy Evaluation - Ekta Worthington, [...] PORT REMOVAL; Surgeon: Tha Sanchez MD; Location: [facility]; Service: General; Laterality: N/A; General Information Row Name 10/02/25 1559 Physical Therapy Time and Intention Document Type evaluation -LO Mode of Treatment physical therapy - Row Name 10/02/25 1553 General Information Patient Profile Reviewed yes -LO Prior Level of Function independent:;all household mobility;community mobility;gait;transfer;driving Has a rollator but reports did not need an AD at home. baseline 2.5 liters of O2 -LO Existing Precautions/Restrictions fall;oxygen therapy device and L/min -LO Barriers to Rehab medically complex -LO Row Name 10/02/25 6527 Living Environment Current Living Arrangements home -LO People in Home significant other - Row Name 10/02/25 1559 Home Main Entrance Number of Stairs, Main Entrance two -LO Stair Railings, Main Entrance railings on both sides of stairs -LO Row Name 10/02/25 1506 Stairs Within Home, Primary Number of Stairs, [...] Provider Type Ekta Armstrong PT Physical Therapist Mobility Row Name 10/02/25 1601 Bed Mobility Bed Mobility supine-sit -LO Supine-Sit Deer (Bed Mobility) supervision -LO Assistive Device (Bed Mobility) bed rails;head of bed elevated -LO Comment, (Bed Mobility) no physical assistance required, good sequencing -LO Row Name 10/02/25 1601 Transfers Comment, (Transfers) EOB> stand> recliner> stand> commode in BR> stand> recliner;CGA for all transfers for steadiness -LO Row Name 10/02/25 1601 Bed-Chair Transfer Bed-Chair Deer (Transfers) contact guard;verbal cues -LO Assistive Device (Bed-Chair Transfers) walker, front-wheeled -LO Row Name 10/02/25 1601 Sit-Stand Transfer Sit-Stand Deer (Transfers) contact guard;verbal cues -LO Assistive Device (Sit-Stand Transfers) other (see comments) none -LO Row Name 10/02/25 1601 Gait/Stairs (Locomotion) Deer Level (Gait) contact guard -LO Assistive Device (Gait) other (see comments) none -LO Distance in Feet (Gait) 12 +12 -LO Deviations/Abnormal Patterns (Gait) bilateral deviations;stride length decreased -LO Bilateral Gait Deviations forward flexed posture -LO Deer Level (Stairs) not tested -LO Comment, (Gait/Stairs) [...] to right;scooting;sit to supine;supine to sit -LO Deer Level/Cues Needed (Bed Mobility Goal 1, PT) independent -LO Time Frame (Bed Mobility Goal 1, PT) short term goal (STG);5 days - Row Name 10/02/25 1609 Transfer Goal 1 (PT) Activity/Assistive Device (Transfer Goal 1, PT) krb-qp-pbkpo/lwiet-bw-gav;eho-ja-jwqox/idsuu-zx-hei;car transfer -LO Deer Level/Cues Needed (Transfer Goal 1, PT) independent -LO Time Frame (Transfer Goal 1, PT) medical terminologist goal (LTG);10 days - Row Name 10/02/25 1609 Gait Training Goal 1 (PT) Activity/Assistive Device (Gait Training Goal 1, PT) gait (walking locomotion);decrease fall risk;increase endurance/gait distance;improve balance and speed -LO Deer Level (Gait Training Goal 1, PT) independent -LO Distance (Gait Training Goal 1, PT) 50 -LO Time Frame (Gait Training Goal 1, PT) medical terminologist goal (LTG);10 days - Row Name 10/02/25 1606 Balance Goal 1 (PT) Activity/Assistive Device (Balance Goal) standing static balance;standing dynamic balance;unsupported -LO Deer Level/Cues Needed (Balance Goal 1, PT) independent -LO Time Frame (Balance Goal 1, PT) long-term goal (LTG);2 weeks - Row Name 10/02/25 1603 Stairs Goal 1 (PT) Activity/Assistive Device (Stairs Goal 1, PT) ascending stairs;descending stairs;decrease fall risk;improve balance and speed -LO Deer Level/Cues Needed (Stairs Goal 1, PT) independent -LO Number of Stairs (Stairs Goal 1, PT) 2 -LO Time Frame (Stairs Goal 1, PT) [facility] goal (LTG);10 days - Row Name 10/02/25 1605 Therapy Assessment/Plan (PT) Planned Therapy Interventions (PT) balance training;bed mobility training;gait training;home exercise program;stair training;patient/family education;neuromuscular re-education;strengthening;transfertraining - User Emerson (r) = Recorded By, (t) = Taken By, (c) = Cosigned By Initials Name Provider Type Ekta Armstrong, PT Physical Therapist Clinical Impression Row Name 10/02/25 1604 Pain Pretreatment Pain Rating 7/10 -LO Posttreatment Pain Rating 0/10 - no pain -LO Pain Side/Orientation generalized;left -LO Pain Management Interventions premedicated for activity -LO Response to Pain Interventions activity participation with tolerable pain -LO Pre/Posttreatment Pain Comment 7/10 pain initially, RN admin pain meds and pain 0/10 by end of session - Row Name 10/02/25 1603 Plan of Care Review Plan of Care Reviewed With patient -LO Outcome Evaluation PT eval completed. Patient presenting with deficits in general BLE strength , standing dynamic balance, and functional endurance effecting functional mobility below baseline. Patient will benefit from skilled IP PT services to address impairments for return to [place]. Recommend home with assist and HHPT at [place]. - Row Name 10/02/25 1605 Therapy Assessment/Plan [...] Nurse Physical Therapy Education Title: PT OT MANAGER LIFE INSURANCE Therapies (Done) Topic: Physical Therapy (Done) Point: [...] Recommend home with assist and HHPT at [place]. Time Calculation: PT Evaluation Complexity History, PT [...] Re-Cert Due Date 10/12/25 - Timed Charges 87015 - Gait Training Minutes 8 -LO 44102 - PT Therapeutic Activity Minutes 10 -LO [...] Description Service Date Service Provider Modifiers Qty [id number] HC PT THERAPEUTIC ACT EA 15 MIN 10/02/2025 Ekta Worthington, PT GP 1 [id number] HC PT EVAL LOW COMPLEXITY 4 10/02/2025 [...] PORT REMOVAL; Surgeon: Tha Sanchez MD; Location: [facility]; Service: General; Laterality: N/A; General Information Row [...] Bed Mobility Bed Mobility supine-sit -TYE Supine-Sit Deer (Bed Mobility) supervision - Assistive Device (Bed Mobility) bed rails;head of bed elevated - Comment, (Bed Mobility) Pt completed without difficulty, HOB raised - Row Name 10/02/25 160 Transfers Transfers sit-stand transfer;toilet transfer - Row Name 10/02/25 160 Sit-Stand Transfer Sit-Stand Deer (Transfers) contact guard;verbal cues - Comment, (Sit-Stand Transfer) no AD - Row Name 10/02/25 160 Toilet Transfer Type (Toilet Transfer) stand pivot/stand step;stand-sit;sit-stand - Deer Level (Toilet Transfer) supervision - Assistive Device (Toilet Transfer) commode;grab bars/safety frame - Row Name 10/02/25 160 Functional Mobility Functional Mobility- Comment Defer to PT for details - Row Name 10/02/25 160 Activities of Daily Living BADL Assessment/Intervention lower body dressing;grooming;toileting - Row Name 10/02/25 160 Hygiene Care Oral Care patient refused intervention - Row Name 10/02/25 160 Lower Body Dressing Assessment/Training Deer Level (Lower Body Dressing) don;socks;set up -TYE Position (Lower Body Dressing) edge of bed sitting - Row Name 10/02/25 160 Grooming Assessment/Training Deer Level (Grooming) wash face, hands;set up -TYE Position (Grooming) supported sitting - Row Name 10/02/25 160 Toileting Assessment/Training Deer Level (Toileting) adjust/manage clothing;perform perineal hygiene;supervision - Assistive Devices (Toileting) commode;grab bar/safety frame -TYE Position (Toileting) unsupported sitting;supported standing -TYE User Emerson (r) = Recorded By, (t) = Taken By, (c) = Cosigned By Initials Name Provider Type Moni Glass OT Occupational Therapist Obj/Interventions [facility] Name 10/02/25 1608 Sensory Assessment (Somatosensory) Sensory Assessment (Somatosensory) UE sensation intact -[facility] Name 10/02/25 1608 Vision Assessment/Intervention Visual Impairment/Limitations WFL;corrective lenses for distance;corrective lenses for reading -[facility] Name 10/02/25 1608 Range of Motion Comprehensive General Range of Motion bilateral upper extremity ROM WFL -[facility] Name 10/02/25 1608 Strength Comprehensive (MMT) Comment, General Manual Muscle Testing (MMT) Assessment BUE strength grossly 4/5 -[facility] Name 10/02/25 1608 Balance Balance Assessment sitting [...] Type Moni Glass OT Occupational Therapist Goals/Plan [facility] Name 10/02/25 1615 Transfer Goal 1 (OT) Activity/Assistive Device (Transfer Goal 1, OT) tin-rj-pijoc/nsoci-lf-qbw;rpr-kg-qfgmy/qraiz-ei-sqz;toilet -TYE Deer Level/Cues Needed (Transfer Goal 1, OT) supervision required -TYE Time Frame (Transfer Goal 1, OT) [facility] goal (LTG);10 days -TYE Progress/Outcome (Transfer Goal 1, OT) new goal -[facility] Name 10/02/25 1615 Toileting Goal 1 (OT) Activity/Device (Toileting Goal 1, OT) adjust/manage clothing;perform perineal hygiene;commode;grabbar/safety frame -TYE Deer Level/Cues Needed (Toileting Goal 1, OT) standby assist -TYE Time Frame (Toileting Goal 1, OT) short term goal (STG);1 week -TYE Progress/Outcome (Toileting Goal 1, OT) new goal -TYE Row Name 10/02/251614 Grooming Goal 1 (OT) Activity/Device (Grooming Goal 1, OT) hair care;oral care;wash face, hands -TYE Deer (Grooming Goal 1, OT) standby assist -TYE [...] exercise or physical activity utilized;premedicated for activity -TYE Response to Pain Interventions activity participation with [...] Nurse Occupational Therapy Education Title: PT OT [employer] Therapies (In Progress) Topic: Occupational Therapy (In [...] Due Date -- 10/12/25 -TYE Timed Charges 73140 - Gait Training Minutes 8 -LO -- [...] Description Service Date Service Provider Modifiers Qty [id number] HC OT EVAL LOW COMPLEXITY 4 10/02/2025 Moni Padron OT GO 1 Moni Padron OT 10/02/2025 * Therapy Evaluation - Rissa Hidalgo MS CCC-[employer] - 10/02/2025 11:00 AM EST Images from the original note were not included. Acute Care - Speech Language Pathology Swallow Initial Evaluation [facility] Clinical Swallow Evaluation Patient Name: Linda Arteaga [...] PORT REMOVAL; Surgeon: Tha Sanchez MD; Location: [facility]; Service: General; Laterality: N/A; [employer] Recommendation and Plan Recommended discharge disposition is based on the functional assessment performed by PT/OT/Speech therapy (as applicable) and may not reflect the medical necessity determined by your provider or services covered by an individual patient's insurance plan or patient resource. [employer] Swallowing Diagnosis: mild, oral dysphagia, R/O pharyngeal dysphagia, suspected esophageal dysphagia (10/02/25939) [employer] Diet Recommendation: mechanical ground textures, thin liquids (10/02/25939) Recommended Precautions and Strategies: upright posture during/after eating, small bites of food and sips of liquid, general aspiration precautions, reflux precautions (10/02/25939) [employer] Rec. for Method of Medication Administration: meds whole, with thin liquids, with puree, as tolerated (10/02/25939) Monitor for Signs of Aspiration: yes, notify [employer] if any concerns (10/02/25939) Recommended Diagnostics: VFSS (MBS), with esophageal screen (10/02/25939) Swallow Criteria for Skilled Therapeutic Interventions Met: demonstrates skilled criteria () Anticipated Discharge Disposition ([employer]): home (10/02/25939) Rehab Potential/Prognosis, Swallowing: good, to achieve stated therapy goals (10/02/25939) Oral Care Recommendations: Oral Care BID/PRN, Toothbrush (10/02/25939) Demonstrates Need for Referral to Another Service: gastroenterology, dedicated esophageal assessment (10/02/25939) SWALLOW EVALUATION (Last 72 Hours) [employer] Adult Swallow Evaluation Row Name 10/02/25939 Rehab [...] options;Oral care recommendations and rationale;Aspiration precautions - [employer] Evaluation Clinical Impression [employer] Swallowing Diagnosis mild;oral dysphagia;R/O pharyngeal dysphagia;suspected esophageal dysphagia - Functional Impact risk of aspiration/pneumonia - Rehab Potential/Prognosis, Swallowing good, to achieve stated therapy goals - Swallow Criteria for Skilled Therapeutic Interventions Met demonstrates skilled criteria - Recommendations [employer] Diet Recommendation mechanical ground textures;thin liquids - Recommended Diagnostics VFSS (MBS);with esophageal screen - Recommended Precautions and Strategies upright posture during/after eating;small bites of food and sips of liquid;general aspiration precautions;reflux precautions - Oral Care Recommendations Oral Care BID/PRN;Toothbrush - [employer] Rec. for Method of Medication Administration meds whole;with thin liquids;with puree;as tolerated - Monitor for Signs of Aspiration yes;notify [employer] if any concerns - Anticipated Discharge Disposition ([employer]) home - Demonstrates Need for Referral to Another Service gastroenterology;dedicated esophageal assessment - User Emerson (r) = Recorded By, (t) = Taken By, (c) = Cosigned By Initials Name Effective Dates Rissa Hidalgo, [facility]-MANAGER [employer] 12/20/24 - EDUCATION The patient has been educated in the following areas: Dysphagia (Swallowing Impairment) Oral Care/Hydration Modified Diet Instruction. Time Calculation: Time Calculation- [employer] Row Name 10/02/25 1059 Time Calculation- [facility] MA[employer]GER [employer] Start Time 0940 -CH [employer]GER [employer] Received On 10/02/25 - Untimed Charges [employer] Eval/Re-eval ST Eval Oral Pharyng Swallow - 29359 - 89837-AO Eval Oral Pharyng Swallow Minutes 55 -CH Total Minutes Untimed Charges Total Minutes 55 -CH Total Minutes 55 -CH User Emerson (r) = Recorded By, (t) = Taken By, (c) = Cosigned By Initials Name Provider Type Rissa Forte MS CCC-[employer]NAGER [employer] Speech and Language Pathologist Therapy Charges for Today Code Description Service Date Service Provider Modifiers Qty [id number] HC ST EVAL ORAL PHARYNG SWALLOW 4 10/02/2025 Rissa Hidalgo MS CCC-[employer] GN 1 MS RUBINA Diaz 10/02/2025 * Case Management/Social Work - Maura Calvillo RN - 10/02/2025 10:38 AM EST Discharge Planning Assessment [facility] Patient Name: Linda Arteaga Today's Date: 10/02/2025 Admit Date: 09/30/2025 Plan: Home Discharge Needs Assessment Row Name 10/02/25 1032 Living Environment People in Home significant other Name(s) of People in Home RICHELLE CARO Significant Other [phone] Current Living Arrangements home Potentially Unsafe Housing Conditions none In the past 12 months has the electric, gas, oil, or water [employer] threatened to shut off services in your [...] with patient at bedside. Patient lives in [facility] with her significant other, Richelle. Patient states that she is independent with all activites of daily living. DME: walker, wheelchair, and home oxygen (through [employer]). Patient on 2.5L NC continuous at home, currently on 4LNC. PCP: Dr. Michael Colón. Patient denies any home health use/needs. Pharmacy: [facility] in [place]. Patient states she has transportation home when she is medically ready. CM verified primary insurance as [employer] Medicare Replacement and secondary [place] Medicaid. 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 Result may be falsely elevated. Blood Venipuncture / Unknown 10/05/2025 5:17 PM EST 10/05/2025 5:25 PM EST Baylee Sesay PA-C LAB BLOOD ORDERABLES Fi nal Result Performing Organization Address City/[facility]/ZIP Co de Phone Number [facility]
[address] [place] [address], * (ABNORMAL) POC Glucose Once (10/05/2025 3:51 PM EST) Glucose 139(H) 70 - 130 mg/dL 10/05/2025 3:54 PM EST [facility] Comment:Serial Number: [id number]: [id number] Blood 10/05/2025 3:51 PM EST 10/05/2025 3:54 PM EST Trudy Bolanos DO POINT OF CARE TEST ORD ERABLES Final Result Performing Organization Address [facility] Co de Phone Number [facility]
[address] [place] [address], * Magnesium (10/05/2025 3:37 PM EST) Magnesium 1.6 1.6 - 2.4 mg/dL 10/05/2025 4:34 PM EST [facility] Blood Venipuncture / Unknown 10/05/2025 3:37 PM EST 10/05/2025 4:06 PM EST Roc Malcolm MD LAB BLOOD ORDERABLES Final Resul t Performing Organization Address [facility]/ZIP Co de Phone Number [facility]
[address] [place] [address], * (ABNORMAL) Basic Metabolic Panel (10/05/2025 3:37 PM EST) [facility] Glucose 124(H) 65 - 99 mg/dL 10/05/2025 4:34 PM [facility] BUN 30.5(H) 8.0 - 23.0 mg/dL 10/05/2025 4:34 PM [facility] Creatinine 1.07(H) 0.57 - 1.00 mg/dL 10/05/2025 4:34 PM [facility] Sodium 139 136 - 145 mmol/L 10/05/2025 4:34 PM [facility] Potassium 5.5(H) 3.5 - 5.2 mmol/L 10/05/2025 4:34 PM [facility] Comment:Specimen hemolyzed. Result may be falsely elevated. Chloride 99 98 - 107 mmol/L 10/05/2025 4:34 PM [facility] CO2 33.3(H) 22.0 - 29.0 mmol/L 10/05/2025 4:34 PM [facility] Calcium 8.8 8.6 - 10.5 mg/dL 10/05/2025 4:34 PM [facility] BUN/Creatinine Ratio 28.5(H) 7.0 - 25.0 10/05/2025 4:34 PM [facility] Anion Gap 6.7 5.0 - 15.0 mmol/L 10/05/2025 4:34 PM [facility] eGFR 57.8(L) >60.0 mL/min/1.7 3 10/05/2025 4:34 PM [facility] Blood Venipuncture / Unknown 10/05/2025 3:37 PM EST 10/05/2025 4:06 PM EST [facility]ORATORY - 10/05/2025 4:34 PM EST [...] ORDERABLES Final Resul t Performing Organization Address City/[facility] Co de Phone Number [facility]
[address] [place] [address], * POC Glucose Once (10/05/2025 10:55 AM EST) Glucose 116 70 - 130 mg/dL 10/05/2025 10:58 AM EST [facility] Comment:Serial Number: [id number]: [id number] Blood 10/05/2025 10:5 5 AM EST 10/05/2025 10:58 AM EST Trudy Bolanos DO POINT OF CARE TEST ORD ERABLES Final Result Performing Organization Address [facility] de Phone Number [facility]
[address] [place] [address], * Telemetry Scan (10/05/2025 9:42 AM EST) [facility] ECG ORDERABLES Final Result * POC Glucose Once (10/05/2025 7:06 AM EST) Glucose 84 70 - 130 mg/dL 10/05/2025 7:18 AM EST [facility] Comment:Serial Number: [id number]: [id number] Blood 10/05/2025 7:06 AM EST 10/05/2025 7:18 AM EST Trudy Bolanos DO POINT OF CARE TEST ORD ERABLES Final Result Performing Organization Address [facility] de Phone Number [facility]
[address] [place] [address], * (ABNORMAL) POC Glucose Once (10/04/2025 8:29 PM EST) Glucose 144(H) 70 - 130 mg/dL 10/04/2025 8:30 PM EST [facility] Comment:Serial Number: [id number]: [id number] Blood 10/04/2025 8:29 PM EST 10/04/2025 8:30 PM EST us Roc Malcolm MD POINT OF CARE TEST ORDERABLES Fi nal Result Performing Organization Address [facility] de Phone Number [facility]
[address] [place] [address], * (ABNORMAL) POC Glucose Once (10/04/2025 3:59 PM EST) Glucose 168(H) 70 - 130 mg/dL 10/04/2025 4:04 PM EST [facility] Comment:Serial Number: [id number]: [id number] Blood 10/04/2025 3:59 PM EST 10/04/2025 4:04 PM EST us Roc Malcolm MD POINT OF CARE TEST ORDERABLES Fi nal Result Performing Organization Address [facility] Co de Phone Number [facility]
[address] [place] [address], * POC Glucose Once (10/04/2025 11:11 AM EST) Glucose 100 70 - 130 mg/dL 10/04/2025 11:14 AM EST [facility] Comment:Serial Number: [id number]: [id number] Blood 10/04/2025 11:1 1 AM EST 10/04/2025 11:14 AM EST Roc Malcolm MD POINT OF CARE TEST ORDERABLES Fi nal Result Performing Organization Address City/[facility]/ZIP Co de Phone Number [facility]
[address] [place] [address], * (ABNORMAL) POC Glucose Once (10/04/2025 7:07 AM EST) Glucose 156(H) 70 - 130 mg/dL 10/04/2025 7:20 AM EST [facility] Comment:Serial Number: [id number]: [id number] Blood 10/04/2025 7:07 AM EST 10/04/2025 7:20 AM EST Roc Malcolm MD POINT OF CARE TEST ORDERABLES Fi nal Result Performing Organization Address [facility] Co de Phone Number [facility]
[address] [place] [address], * Telemetry Scan (10/04/2025 2:38 AM EST) [facility] Onbase ECG ORDERABLES Final Result * POC Glucose Once (10/03/2025 8:24 PM EST) Glucose 129 70 - 130 mg/dL 10/03/2025 8:26 PM EST [facility] Comment:Serial Number: [id number]: [id number] Blood 10/03/2025 8:24 PM EST 10/03/2025 8:26 PM EST Sabrina Stephens MD POINT OF CARE TEST ORDERABLES F inal Result Performing Organization Address City/[facility]/ZIP Co de Phone Number [facility]
[address] [place] [address], * POC Glucose Once (10/03/2025 3:49 PM EST) Glucose 115 70 - 130 mg/dL 10/03/2025 3:58 PM EST [facility] Comment:Serial Number: [id number]: [id number] Blood 10/03/2025 3:49 PM EST 10/03/2025 3:58 PM EST us Sabrina Stephens MD POINT OF CARE TEST ORDERABLES F inal Result Performing Organization Address City/[facility]/ZIP Co de Phone Number [facility]
[address] [place] [address], * POC Glucose Once (10/03/2025 11:16 AM EST) Glucose 118 70 - 130 mg/dL 10/03/2025 11:20 AM EST [facility] Comment:Serial Number: [id number]: [id number] Blood 10/03/2025 11:1 6 AM EST 10/03/2025 11:20 AM EST us Sabrina Stephens MD POINT OF CARE TEST ORDERABLES F inal Result Performing Organization Address City/[facility] Co de Phone Number [facility]
[address] [place] [address], * [place] Limited Ugi For Mbs Reflux [...] MD 10/03/2025 3:55 PM EST Workstation ID: [id number] Sheila 10/03/2025 3:55 PM EST [place] VIDEO [...] MD 10/03/2025 3:55 PM EST Workstation ID: [id number] Roc Malcolm MD IMG FLUOROSCOPY ORDERABLES Final [...] MD 10/03/2025 3:55 PM EST Workstation ID: [id number] Narrative 10/03/2025 3:55 PM EST [place] VIDEO [...] MD 10/03/2025 3:55 PM EST Workstation ID: [id number] Roc Malcolm MD IMG FLUOROSCOPY ORDERABLES Final Result * Magnesium (10/03/2025 7:25 AM EST) Magnesium 1.6 1.6 - 2.4 mg/dL 10/03/2025 8:17 AM EST [facility] Blood Venipuncture / Unknown 10/03/2025 7:25 AM EST 10/03/2025 7:44 AM EST us Roc Malcolm MD LAB BLOOD ORDERABLES Final Resul t [facility]
[address] [place] [address], * (ABNORMAL) Basic Metabolic Panel (10/03/2025 7:25 AM EST) Glucose 92 65 - 99 mg/dL 10/03/2025 8:17 AM EST [facility] BUN 21.2 8.0 - 23.0 mg/dL 10/03/2025 8:17 AM EST [facility] Creatinine 0.88 0.57 - 1.00 mg/dL 10/03/2025 8:17 AM EST [facility] Sodium 139 136 - 145 mmol/L 10/03/2025 8:17 AM EST [facility] Potassium 4.4 3.5 - 5.2 mmol/L 10/03/2025 8:17 AM EST [facility] Chloride 103 98 - 107 mmol/L 10/03/2025 8:17 AM [facility] CO2 26.0 22.0 - 29.0 mmol/L 10/03/2025 8:17 AM EST [facility] Calcium 8.5(L) 8.6 - 10.5 mg/dL 10/03/2025 8:17 AM [facility] BUN/Creatinine Ratio 24.1 7.0 - 25.0 10/03/2025 8:17 AM [facility] Anion Gap 10.0 5.0 - 15.0 mmol/L 10/03/2025 8:17 AM [facility] eGFR 73.0 >60.0 mL/min/1.7 3 10/03/2025 8:17 AM [facility] Blood Venipuncture / Unknown 10/03/2025 7:25 AM EST 10/03/2025 7:44 AM EST [facility]ORATORY - 10/03/2025 8:17 AM EST [...] MD LAB BLOOD ORDERABLES Final Resul t [facility]
[address] [place] [address], * Hemoglobin & Hematocrit, Blood (10/03/2025 7:25 AM EST) Hemoglobin 13.0 12.0 - 15.9 g/dL 10/03/2025 8:01 AM EST [facility] Hematocrit 42.2 34.0 - 46.6 % 10/03/2025 8:01 AM EST [facility] Blood Venipuncture / Unknown 10/03/2025 7:25 AM EST 10/03/2025 7:44 AM EST Roc Malcolm MD LAB BLOOD ORDERABLES Final Resul t Performing Organization Address City/[facility]/ZIP Co de Phone Number [facility]
[address] [place] [address], * POC Glucose Once (10/03/2025 7:05 AM EST) Glucose 94 70 - 130 mg/dL 10/03/2025 7:07 AM EST [facility] Comment:Serial Number: [id number]: [id number] Blood 10/03/2025 7:05 AM EST 10/03/2025 7:07 AM EST Sabrina Stephens MD POINT OF CARE TEST ORDERABLES F inal Result Performing Organization Address City/[facility]/ZIP Co de Phone Number [facility]
[address] [place] [address], * (ABNORMAL) POC Glucose Once (10/02/2025 8:18 PM EST) Glucose 143(H) 70 - 130 mg/dL 10/02/2025 8:20 PM EST [facility] Comment:Serial Number: [id number]: [id number] Blood 10/02/2025 8:18 PM EST 10/02/2025 8:20 PM EST Roc Malcolm MD POINT OF CARE TEST ORDERABLES Fi nal Result Performing Organization Address City/[facility] Co de Phone Number [facility]
[address] [place] [address], * (ABNORMAL) POC Glucose Once (10/02/2025 4:26 PM EST) Glucose 166(H) 70 - 130 mg/dL 10/02/2025 4:30 PM EST [facility] Comment:Serial Number: [id number]: [id number] Blood 10/02/2025 4:26 PM EST 10/02/2025 4:30 PM EST Roc Malcolm MD POINT OF CARE TEST ORDERABLES Fi nal Result Performing Organization Address [facility] Co de Phone Number [facility]
[address] [place] [address], * ECG 12 Lead QT Measurement (10/02/2025 [...] ECG ORDERABLES Final Result Performing Organization Address City/[facility] Co de Phone Number ECG * (ABNORMAL) POC Glucose Once (10/02/2025 11:17 AM EST) Glucose 144(H) 70 - 130 mg/dL 10/02/2025 11:24 AM EST [facility] Comment:Serial Number: [id number]: [id number] Blood 10/02/2025 11:1 7 AM EST 10/02/2025 11:24 AM EST Roc Malcolm MD POINT OF CARE TEST ORDERABLES Fi nal Result Performing Organization Address City/[facility] Co de Phone Number [facility]
[address] [place] [address], * (ABNORMAL) POC Glucose Once (10/02/2025 7:21 AM EST) Glucose 148(H) 70 - 130 mg/dL 10/02/2025 7:23 AM EST [facility] Comment:Serial Number: [id number]: [id number] Blood 10/02/2025 7:21 AM EST 10/02/2025 7:23 AM EST Roc Malcolm MD POINT OF CARE TEST ORDERABLES Fi nal Result Performing Organization Address [facility]/ZIP Co de Phone Number [facility]
[address] [place] [address], * Hemoglobin & Hematocrit, Blood (10/02/2025 4:16 AM EST) Pathologist [facility] Hemoglobin 12.8 12.0 - 15.9 g/dL 10/02/2025 5:00 AM EST [facility] Hematocrit 40.6 34.0 - 46.6 % 10/02/2025 5:00 AM EST [facility] Blood Venipuncture / Unknown 10/02/2025 4:16 AM EST 10/02/2025 4:34 AM EST Franklin Thorpe MD LAB BLOOD ORDERABLES Final Re sult Performing Organization Address City/[facility]/ZIP Co de Phone Number [facility]
[address] [place] [address], * (ABNORMAL) CBC Auto Differential (10/02/2025 4:16 AM EST) WBC 12.58(H) 3.40 - 10.80 10*3/mm3 10/02/2025 5:00 AM EST [facility] RBC 4.30 3.77 - 5.28 10*6/mm3 10/02/2025 5:00 AM EST [facility] Hemoglobin 12.8 12.0 - 15.9 g/dL 10/02/2025 5:00 AM [facility] Hematocrit 40.6 34.0 - 46.6 % 10/02/2025 5:00 AM [facility] MCV 94.4 79.0 - 97.0 fL 10/02/2025 5:00 AM [facility] MCH 29.8 26.6 - 33.0 pg 10/02/2025 5:00 AM [facility] MCHC 31.5 31.5 - 35.7 g/dL 10/02/2025 5:00 AM [facility] RDW 14.9 12.3 - 15.4 % 10/02/2025 5:00 AM [facility] RDW-SD 52.0 37.0 - 54.0 fl 10/02/2025 5:00 AM [facility] MPV 12.0 6.0 - 12.0 fL 10/02/2025 5:00 AM [facility] Platelets 215 140 - 450 10*3/mm3 10/02/2025 5:00 AM [facility] Neutrophil % 77.8(H) 42.7 - 76.0 % 10/02/2025 5:00 AM [facility] Lymphocyte % 15.6(L) 19.6 - 45.3 % 10/02/2025 5:00 AM [facility] Monocyte % 5.4 5.0 - 12.0 % 10/02/2025 5:00 AM [facility] Eosinophil % 0.6 0.3 - 6.2 % 10/02/2025 5:00 AM [facility] Basophil % 0.2 0.0 - 1.5 % 10/02/2025 5:00 AM [facility] Immature Grans % 0.4 0.0 - 0.5 % 10/02/2025 5:00 AM [facility] Neutrophils, Absolute 9.80(H) 1.70 - 7.00 10*3/mm3 10/02/2025 5:00 AM [facility] Lymphocytes, Absolute 1.96 0.70 - 3.10 10*3/mm3 10/02/2025 5:00 AM EST [facility] Monocytes, Absolute 0.68 0.10 - 0.90 10*3/mm3 10/02/2025 5:00 AM EST [facility] Eosinophils, Absolute 0.07 0.00 - 0.40 10*3/mm3 10/02/2025 5:00 AM EST [facility] Basophils, Absolute 0.02 0.00 - 0.20 10*3/mm3 10/02/2025 5:00 AM EST [facility] Immature Grans, Absolute 0.05 0.00 - 0.05 10*3/mm3 10/02/2025 5:00 AM EST [facility] nRBC 0.0 0.0 - 0.2 /100 WBC 10/02/2025 5:00 AM EST [facility] Blood Venipuncture / Unknown 10/02/2025 4:16 AM EST 10/02/2025 4:34 AM EST Roc Malcolm MD LAB BLOOD ORDERABLES Final Resul t Performing Organization Address [facility] Co de Phone Number [facility]
[address] [place] [address], * (ABNORMAL) Heparin Anti-Xa (10/02/2025 4:16 AM EST) Heparin Anti-Xa (UFH) 0.10(L) 0.30 - 0.70 IU/ml 10/02/2025 5:04 AM EST [facility] Blood Venipuncture / Unknown 10/02/2025 4:16 AM EST 10/02/2025 4:35 AM EST [place] [facility] LAB BLOOD ORDERABLES Final Res ult Performing Organization Address City/[facility]/ZIP Co de Phone Number [facility]
[address] [place] [address], [place] [phone] * (ABNORMAL) C-reactive Protein (10/02/2025 4:16 AM EST) C-Reactive Protein 0.95(H) 0.00 - 0.50 mg/dL 10/02/2025 4:53 AM EST [facility] Blood Venipuncture / Unknown 10/02/2025 4:16 AM EST 10/02/2025 4:30 AM EST Roc Malcolm MD LAB BLOOD ORDERABLES Final Resul t Performing Organization Address City/[facility]/ZIP Co de Phone Number [facility]
[address] [place] [address], * Phosphorus (10/02/2025 4:16 AM EST) Phosphorus 4.2 2.5 - 4.5 mg/dL 10/02/2025 6:14 AM EST [facility] Blood Venipuncture / Unknown 10/02/2025 4:16 AM EST 10/02/2025 4:30 AM EST Roc Malcolm MD LAB BLOOD ORDERABLES Final Resul t Performing Organization Address City/[facility] Co de Phone Number [facility]
[address] [place] [address], * Magnesium (10/02/2025 4:16 AM EST) Magnesium 2.1 1.6 - 2.4 mg/dL 10/02/2025 4:53 AM EST [facility] Blood Venipuncture / Unknown 10/02/2025 4:16 AM EST 10/02/2025 4:30 AM EST us Roc Malcolm MD LAB BLOOD ORDERABLES Final Resul t Performing Organization Address City/[facility]/ZIP Co de Phone Number [facility]
[address] [place] [address], * (ABNORMAL) Basic Metabolic Panel (10/02/2025 4:16 AM EST) Glucose 111(H) 65 - 99 mg/dL 10/02/2025 4:53 AM EST [facility] BUN 13.2 8.0 - 23.0 mg/dL 10/02/2025 4:53 AM EST [facility] Creatinine 0.87 0.57 - 1.00 mg/dL 10/02/2025 4:53 AM EST [facility] Sodium 139 136 - 145 mmol/L 10/02/2025 4:53 AM EST [facility] Potassium 3.9 3.5 - 5.2 mmol/L 10/02/2025 4:53 AM EST [facility] Comment:Specimen hemolyzed. Result may be falsely elevated. Chloride 101 98 - 107 mmol/L 10/02/2025 4:53 AM [facility] CO2 26.5 22.0 - 29.0 mmol/L 10/02/2025 4:53 AM [facility] Calcium 8.5(L) 8.6 - 10.5 mg/dL 10/02/2025 4:53 AM [facility] BUN/Creatinine Ratio 15.2 7.0 - 25.0 10/02/2025 4:53 AM [facility] Anion Gap 11.5 5.0 - 15.0 mmol/L 10/02/2025 4:53 AM [facility] eGFR 74.0 >60.0 mL/min/1.7 3 10/02/2025 4:53 AM [facility] Blood Venipuncture / Unknown 10/02/2025 4:16 AM EST 10/02/2025 4:30 AM EST [facility] - 10/02/2025 4:53 AM EST [...] ORDERABLES Final Resul t Performing Organization Address [facility] Co de Phone Number [facility]
[address] [place] [address], * (ABNORMAL) POC Glucose Once (10/01/2025 10:36 PM EDT) Glucose 201(H) 70 - 130 mg/dL 10/01/2025 10:38 PM EDT [facility] Comment:Serial Number: [id number] Blood 10/01/2025 10:3 6 PM EDT 10/01/2025 10:38 PM EDT us Roc Malcolm MD POINT OF CARE TEST ORDERABLES Fi nal Result Performing Organization Address [facility] de Phone Number [facility]
[address] [place] [address], * (ABNORMAL) aPTT (10/01/2025 7:37 PM EDT) PTT 20.3(L) 60.0 - 90.0 seconds 10/01/2025 8:48 PM EDT [facility] Blood Venipuncture / Unknown 10/01/2025 7:37 PM EDT 10/01/2025 7:52 PM EDT Narrative [facility] - 10/01/2025 8:48 PM EDT PTT = The equivalent PTT values for the therapeutic range of heparin levels at 0.3 to 0.5 U/ml are 60 to 70 seconds. us Roc Malcolm MD LAB BLOOD ORDERABLES Final Resul t Performing Organization Address [facility] Co de Phone Number [facility]
[address] [place] [address], * Protime-INR (10/01/2025 7:37 PM EDT) Protime 13.9 12.2 - 15.3 Seconds 10/01/2025 8:23 PM EDT [facility] INR 1.01 0.89 - 1.12 10/01/2025 8:23 PM EDT [facility] Blood Venipuncture / Unknown 10/01/2025 7:37 PM EDT 10/01/2025 7:52 PM EDT Roc Malcolm MD LAB BLOOD ORDERABLES Final Resul t Performing Organization Address [facility] Co de Phone Number [facility]
[address] [place] [address], * (ABNORMAL) Heparin Anti-Xa (10/01/2025 7:37 PM EDT) Pathologist [facility] Heparin Anti-Xa (UFH) 0.10(L) 0.30 - 0.70 IU/ml 10/01/2025 8:24 PM EDT [facility] Blood Venipuncture / Unknown 10/01/2025 7:37 PM EDT 10/01/2025 7:52 PM EDT Roc Malcolm MD LAB BLOOD ORDERABLES Final Resul t Performing Organization Address [facility] Co de Phone Number [facility]
[address] [place] [address], * (ABNORMAL) POC Glucose Once (10/01/2025 5:44 PM EDT) Glucose 155(H) 70 - 130 mg/dL 10/01/2025 5:46 PM EDT [facility] Comment:Serial Number: [id number] Blood 10/01/2025 5:44 PM EDT 10/01/2025 5:46 PM EDT Roc Malcolm MD POINT OF CARE TEST ORDERABLES Fi nal Result [facility]
[address] [place] [address], * (ABNORMAL) CBC Auto Differential (10/01/2025 4:19 PM EDT) WBC 7.28 3.40 - 10.80 10*3/mm3 10/01/2025 8:07 PM EDT [facility] RBC 4.56 3.77 - 5.28 10*6/mm3 10/01/2025 8:07 PM EDT [facility] Hemoglobin 13.4 12.0 - 15.9 g/dL 10/01/2025 8:07 PM EDT [facility] Hematocrit 44.5 34.0 - 46.6 % 10/01/2025 8:07 PM EDT [facility] MCV 97.6(H) 79.0 - 97.0 fL 10/01/2025 8:07 PM EDT [facility] MCH 29.4 26.6 - 33.0 pg 10/01/2025 8:07 PM EDT [facility] MCHC 30.1(L) 31.5 - 35.7 g/dL 10/01/2025 8:07 PM EDT [facility] RDW 15.2 12.3 - 15.4 % 10/01/2025 8:07 PM EDT [facility] RDW-SD 54.5(H) 37.0 - 54.0 fl 10/01/2025 8:07 PM EDT [facility] MPV 12.1(H) 6.0 - 12.0 fL 10/01/2025 8:07 PM EDT [facility] Platelets 217 140 - 450 10*3/mm3 10/01/2025 8:07 PM EDT [facility] Neutrophil % 88.1(H) 42.7 - 76.0 % 10/01/2025 8:07 PM EDT [facility] Lymphocyte % 10.3(L) 19.6 - 45.3 % 10/01/2025 8:07 PM EDT [facility] Monocyte % 1.1(L) 5.0 - 12.0 % 10/01/2025 8:07 PM EDT [facility] Eosinophil % 0.0(L) 0.3 - 6.2 % 10/01/2025 [facility] Basophil % 0.1 0.0 - 1.5 % 10/01/2025 8:07 PM EDT [facility] Immature Grans % 0.4 0.0 - 0.5 % 10/01/2025 8:07 PM T [facility] Neutrophils, Absolute 6.41 1.70 - 7.00 10*3/mm3 10/01/2025 8:07 [facility] Lymphocytes, Absolute 0.75 0.70 - 3.10 10*3/mm3 10/01/2025 8:07 [facility] Monocytes, Absolute 0.08(L) 0.10 - 0.90 10*3/mm3 10/01/2025 8:07 PM [facility] Eosinophils, Absolute 0.00 0.00 - 0.40 10*3/mm3 10/01/2025 8:07 PM [facility] Basophils, Absolute 0.01 0.00 - 0.20 10*3/mm3 10/01/2025 8:07 PM [facility] Immature Grans, Absolute 0.03 0.00 - 0.05 10*3/mm3 10/01/2025 8:07 PM EDT [facility] nRBC 0.3(H) 0.0 - 0.2 /100 WBC 10/01/2025 8:07 PM EDT [facility] Blood Venipuncture / Unknown 10/01/2025 4:19 PM EDT 10/01/2025 4:47 PM EDT us Roc Malcolm MD LAB BLOOD ORDERABLES Final Resul t Performing Organization Address City/[facility]/ZIP Co de Phone Number [facility]
[address] [place] [address], * Hemoglobin & Hematocrit, Blood (10/01/2025 4:19 PM EDT) Hemoglobin 13.7 12.0 - 15.9 g/dL 10/01/2025 4:53 PM EDT [facility] Hematocrit 44.4 34.0 - 46.6 % 10/01/2025 4:53 PM EDT [facility] Blood Venipuncture / Unknown 10/01/2025 4:19 PM EDT 10/01/2025 4:47 PM EDT us Franklin Thorpe MD LAB BLOOD ORDERABLES Final Re sult Performing Organization Address [facility] Co de Phone Number [facility]
[address] [place] [address], * Potassium (10/01/2025 4:19 PM EDT) Potassium 4.1 3.5 - 5.2 mmol/L 10/01/2025 5:10 PM EDT [facility] Comment:Specimen hemolyzed. Result may be falsely elevated. Blood Venipuncture / Unknown 10/01/2025 4:19 PM EDT 10/01/2025 4:49 PM EDT us Franklin Thorpe MD LAB BLOOD ORDERABLES Final Re sult Performing Organization Address City/[facility]/ZIP Co de Phone Number [facility]
[address] [place] [address], * ECG 12 Lead QT Measurement (10/01/2025 [...] Anterior leads Confirmed by JANN MILAN MD ([id number]) on 10/02/2025 10:44:28 AM Referred By: Confirmed By: JANN MILAN MD Procedure Note Jann Milan MD - 10/02/2025 Test Reason : [...] Anterior leads Confirmed by JANN MILAN MD ([id number]) on 10/02/2025 10:44:28 AM Referred By: Confirmed By: JANN MILAN MD Roc Malcolm MD ECG ORDERABLES Final Result ECG * (ABNORMAL) POC Glucose Once (10/01/2025 11:41 AM EDT) Glucose 151(H) 70 - 130 mg/dL 10/01/2025 11:43 AM EDT [facility] Comment:Serial Number: [id number] Blood 10/01/2025 11:4 1 AM EDT 10/01/2025 11:43 AM EDT us Roc Malcolm MD POINT OF CARE TEST ORDERABLES Fi nal Result Performing Organization Address [facility] Co de Phone Number [facility]
[address] [place] [address], * (ABNORMAL) MRSA Screen, PCR (Inpatient) - Swab, Nares (10/01/2025 10:36 AM EDT) MRSA PCR Positive(A ) Negative CEPHEID GENEXPERT 10/01/2025 12:07 PM EDT [facility] Swab Structure of anterior naris / Unknown Collection / Unknown 10/01/2025 10:36 AM EDT 10/01/2025 10:36 AM EDT Narrative [facility] - 10/01/2025 12:07 PM EDT The negative predictive value of this diagnostic test is high and should only be used to consider de-escalating anti-MRSA therapy. A positive result may indicate colonization with MRSA and must be correlated clinically. us Roc Malcolm MD MICROBIOLOGY - GENERAL ORDERABLE S Final Result Performing Organization Address [facility] Co de Phone Number [facility]
[address] [place] [address], * (ABNORMAL) Blood Gas, Arterial With Co-Ox (10/01/2025 9:07 AM EDT) Site Left Brachial 10/01/2025 9:07 AM EDT [facility] THER[facility] Wili's Test N/A 10/01/2025 9:07 AM EDT [facility] THERAP[facility] pH, Arterial 7.339(L) 7.350 - 7.450 pH units 10/01/2025 9:07 AM [facility] Comment:84 Value below refer ence range pCO2, Arterial 55.2(H) 35.0 - 45.0 mm Hg 10/01/2025 9:07 AM [facility] Comment:83 Value above refer ence range pO2, Arterial 86.8 83.0 - 108.0 mm Hg 10/01/2025 9:07 AM T [facility] HCO3, Arterial 29.6(H) 20.0 - 26.0 mmol/L 10/01/2025 9:07 AM [facility] Base Excess, Arterial 2.6(H) 0.0 - 2.0 mmol/L 10/01/2025 9:07 AM [facility] Hemoglobin, Blood Gas 13.7(L) 14 - 18 g/dL 10/01/2025 9:07 AM [facility] Hematocrit, Blood Gas 42.1 38.0 - 51.0 % 10/01/2025 9:07 AM [facility] Oxyhemoglobin 93.6(L) 94 - 99 % 10/01/2025 9:07 AM [facility] Comment:84 Value below refer ence range Methemoglobin 0.20 0.00 - 1.50 % 10/01/2025 9:07 AM [facility] Carboxyhemoglobin 2.5(H) 0 - 2 % 9:07 AM [facility] Comment:83 Value above refer ence range CO2 Content 31.3 22 - 33 mmol/L 10/01/2025 9:07 AM [facility] TH[facility] Temperature 37.0 10/01/2025 9:07 AM [facility] Barometric Pressure for Blood Gas 10/01/2025 9:07 AM [facility] Comment:N/A Modality BiPap 10/01/2025 9:07 AM [facility] FIO2 45 % 10/01/2025 9:07 AM EDT [facility] Ventilator Mode BiPAP 9:07 AM EDT [facility] IPAP 16 cm H2O 10/01/2025 9:07 AM EDT [facility] Comment:Meter: [id number] [employer] Toilet Water Maker: [id number] EPAP 6 cm H2O 10/01/2025 9:07 AM EDT [facility] THERAP[facility] pH, Temp Corrected 7.339 pH Units 2024 9:07 AM EDT [facility] pCO2, Temperature Corrected 55.2(H) 35 - 45 mm Hg 10/01/2025 9:07 AM EDT [facility] pO2, Temperature Corrected 86.8 83 - 108 mm Hg 10/01/2025 9:07 AM EDT [facility] THERAPY Arterial Blood 10/01/2025 9: 07 AM EDT 10/01/2025 9:07 AM EDT Roc Malcolm MD LAB BLOOD ORDERABLES Final Resul t [facility]
[address] * S. Pneumo Ag Urine or CSF - Urine, Urine, Clean Catch (10/01/2025 6:39 AM EDT) Strep Pneumo Ag Negative Negative 10/01/2025 12:48 PM EDT [facility] Urine Urine specimen obtained by clean catch procedure / Unknown Collection / Unknown 10/01/2025 6:39 AM EDT 10/01/2025 9:50 AM EDT Roc Malcolm MD MICROBIOLOGY - GENERAL ORDERABLE S Final Result [facility]
[address] [phone] * Legionella Antigen, Urine - Urine, Urine, Clean Catch (10/01/2025 6:39 AM EDT) LEGIONELLA ANTIGEN, URINE Negative Negative 10/01/2025 12:47 PM EDT [facility] Urine Urine specimen obtained by clean catch procedure / Unknown Collection / Unknown 10/01/2025 6:39 AM EDT 10/01/2025 9:50 AM EDT Roc Malcolm MD MICROBIOLOGY - GENERAL ORDERABLE S Final Result [facility]
[address] [place] [address], [place] [phone] * (ABNORMAL) Urinalysis, Microscopic Only - Urine, Clean Catch (10/01/2025 6:39 AM EDT) RBC, UA 0-2 None Seen, 0-2 /HPF 10/01/2025 7:36 AM EDT [facility] WBC, UA 21-50(A) None Seen, 0-2 /HPF 10/01/2025 7:36 AM EDT [facility] Bacteria, UA None Seen None Seen /HPF 10/01/2025 7:36 AM EDT [facility] Squamous Epithelial Cells, UA 0-2 None Seen, 0-2 /HPF 10/01/2025 7:36 AM EDT [facility] Hyaline Casts, UA 3-6 None Seen /LPF 10/01/2025 7:36 AM EDT [facility] Methodology Automated Microscopy 10/01/2025 7:36 AM EDT [facility] Urine Urine specimen obtained by clean catch procedure / Unknown Collection / Unknown 10/01/2025 6:39 AM EDT 10/01/2025 7:05 AM EDT Franklin Thorpe MD URINE ORDERABLES Final Result [facility]
[address] [place] [address], [place] [phone] * Fentanyl, Urine - Urine, Clean Catch (10/01/2025 6:39 AM EDT) Fentanyl, Urine Negative Negative 10/01/2025 10:01 AM EDT [facility] Urine Urine specimen obtained by clean catch procedure / Unknown Collection / Unknown 10/01/2025 6:39 AM EDT 10/01/2025 7:05 AM EDT [facility] - 10/01/2025 10:01 AM EDT [...] Roc Malcolm MD URINE ORDERABLES Final Result [facility]
[address] [place] [address], * (ABNORMAL) Urine Drug Screen - Urine, Clean Catch (10/01/2025 6:39 AM EDT) Pathologist [facility] THC, Screen, Urine Positive(A) Negative 10/01 7:19 AM EDT [facility] Phencyclidine (PCP), Urine Negative Negative 10/01/2025 7:19 AM EDT [facility] Cocaine Screen, Urine Positive(A) Negative 10/01/2025 7:19 AM EDT [facility] Methamphetamine, Ur Negative Negative 10/01/2025 7:19 AM EDT [facility] Opiate Screen Positive(A) Negative 10/01/2025 7:19 AM EDT [facility] Amphetamine Screen, Urine Negative Negative 10/01/2025 7:19 AM EDT [facility] Benzodiazepine Screen, Urine Positive(A) Negative 10/01/2025 7:19 AM EDT [facility] Tricyclic Antidepressants Screen Negative Negative 10/01/2025 7:19 AM EDT [facility] Methadone Screen, Urine Negative Negative 10/01/2025 7:19 AM EDT [facility] Barbiturates Screen, Urine Negative Negative 10/01/2025 7:19 AM EDT [facility] Oxycodone Screen, Urine Negative Negative 10/01/2025 7:19 AM EDT [facility] Buprenorphine, Screen, Urine Negative Negative 10/01/2025 7:19 AM EDT [facility] Urine Urine specimen obtained by clean catch procedure / Unknown Collection / Unknown 10/01/2025 6:39 AM EDT 10/01/2025 7:05 AM EDT [facility] - 10/01/2025 7:19 AM EDT [...] Roc Malcolm MD URINE ORDERABLES Final Result [facility]
[address] [place] [address], * (ABNORMAL) Urinalysis With Microscopic If Indicated (No Culture) - Urine, Clean Catch (10/01/2025 6:39 AM EDT) Color, UA Yellow Yellow, Straw 10/01/2025 7:36 AM EDT [facility] Appearance, UA Clear Clear 10/01/2025 7:36 AM EDT [facility] pH, UA <=5.0 5.0 - 8.0 10/01/2025 7:36 AM EDT [facility] Specific [place], UA >1.030(H) 1.005 - 1.030 10/01/2025 7:36 AM EDT [facility] Glucose, UA Negative Negative 10/01/2025 7:36 AM EDT [facility] Ketones, UA Negative Negative 10/01/2025 7:36 AM EDT [facility] Bilirubin, UA Negative Negative 10/01/2025 7:36 AM EDT [facility] Blood, UA Negative Negative 10/01/2025 7:36 AM EDT [facility] Protein, UA Negative Negative 10/01/2025 7:36 AM EDT [facility] Leuk Esterase, UA Moderate (2+)(A) Negative 10/01/2025 7:36 AM EDT [facility] Nitrite, UA Negative Negative 10/01/2025 7:36 AM EDT [facility] Urobilinogen, UA 0.2 E.U./dL 0.2 - 1.0 E.U./dL 10/01/2025 7:36 AM EDT [facility] Urine Urine specimen obtained by clean catch procedure / Unknown Collection / Unknown 10/01/2025 6:39 AM EDT 10/01/2025 7:05 AM EDT us Franklin Thorpe MD URINE ORDERABLES Final Result [facility]
[address] [place] [address], * XR Chest 1 View (10/01/2025 6:18 AM EDT) Anatomical Region Laterality Modality Body N/A Radiographic Nancy ging 10/01/2025 6:54 AM EDT Impressions 10/01/2025 6:55 AM EDT Impression: Increasing diffuse interstitial opacities suspicious for pulmonary edema. Infectious process is possible. Electronically Signed: Rusty Larry MD 10/01/2025 6:55 AM EDT Workstation ID: [id number] Narrative 10/01/2025 6:55 AM EDT XR CHEST [...] MD 10/01/2025 6:55 AM EDT Workstation ID: [id number] Franklin Thorpe MD IMG DIAGNOSTIC IMAGING ORDERA BLES Final Result * (ABNORMAL) C-reactive Protein (10/01/2025 6:14 AM EDT) C-Reactive Protein 1.89(H) 0.00 - 0.50 mg/dL 10/01/2025 11:58 AM EDT [facility] Blood Venipuncture / Unknown 10/01/2025 6:14 AM EDT 10/01/2025 6:21 AM EDT Roc Malcolm MD LAB BLOOD ORDERABLES Final Resul t Performing Organization Address [facility] Co de Phone Number [facility]
[address] [place] [address], * proBNP (10/01/2025 6:14 AM EDT) proBNP 319.0 0.0 - 900.0 pg/mL 10/01/2025 8:26 AM EDT [facility] Blood Venipuncture / Unknown 10/01/2025 6:14 AM EDT 10/01/2025 6:21 AM EDT Narrative [facility] - 10/01/2025 8:26 AM EDT This [...] ORDERABLES Final Resul t Performing Organization Address [facility] Co de Phone Number [facility]
[address] [place] [address], * (ABNORMAL) Phosphorus (10/01/2025 6:14 AM EDT) Phosphorus 5.7(H) 2.5 - 4.5 mg/dL 10/01/2025 8:26 AM EDT [facility] Blood Venipuncture / Unknown 10/01/2025 6:14 AM EDT 10/01/2025 6:21 AM EDT us Roc Malcolm MD LAB BLOOD ORDERABLES Final Resul t Performing Organization Address City/[facility]/ZIP Co de Phone Number [facility]
[address] [place] [address], * Scan Slide (10/01/2025 6:14 AM EDT) RBC Morphology Normal Normal 10/01/2025 7:25 AM EDT [facility] WBC Morphology Normal Normal 10/01/2025 7:25 AM EDT [facility] Platelet Morphology Normal Normal 10/01/2025 7:25 AM EDT [facility] Blood Venipuncture / Unknown 10/01/2025 6:14 AM EDT 10/01/2025 6:21 AM EDT us Franklin Thorpe MD LAB BLOOD ORDERABLES Final Re sult Performing Organization Address [facility] Co de Phone Number [facility]
[address] [place] [address], * Magnesium (10/01/2025 6:14 AM EDT) Pathologist [facility] Magnesium 1.9 1.6 - 2.4 mg/dL 10/01/2025 6:59 AM EDT [facility] Blood Venipuncture / Unknown 10/01/2025 6:14 AM EDT 10/01/2025 6:21 AM EDT us Franklin Thorpe MD LAB BLOOD ORDERABLES Final Re sult Performing Organization Address City/[facility]/ZIP Co de Phone Number [facility]
[address] [place] [address], * (ABNORMAL) Basic Metabolic Panel (10/01/2025 6:14 AM EDT) Glucose 124(H) 65 - 99 mg/dL 10/01/2025 6:57 AM EDT [facility] BUN 15.5 8.0 - 23.0 mg/dL 10/01/2025 6:57 AM T [facility] Creatinine 1.16(H) 0.57 - 1.00 mg/dL 10/01/2025 6:57 AM T [facility] Sodium 137 136 - 145 mmol/L 10/01/2025 6:57 AM T [facility] Potassium 3.7 3.5 - 5.2 mmol/L 10/01/2025 6:57 AM EDT [facility] Chloride 95(L) 98 - 107 mmol/L 10/01/2025 6:57 AM EDT [facility] CO2 26.5 22.0 - 29.0 mmol/L 10/01/2025 6:57 AM [facility] Calcium 8.5(L) 8.6 - 10.5 mg/dL 10/01/2025 6:57 AM [facility] BUN/Creatinine Ratio 13.4 7.0 - 25.0 10/01/2025 6:57 AM T [facility] Anion Gap 15.5(H) 5.0 - 15.0 mmol/L 10/01/2025 6:57 AM [facility] eGFR 52.4(L) >60.0 mL/min/1.7 3 10/01/2025 6:57 AM [facility] Blood Venipuncture / Unknown 10/01/2025 6:14 AM EDT 10/01/2025 6:21 AM EDT [facility] LABORATORY - 10/01/2025 6:57 AM EDT [...] MD LAB BLOOD ORDERABLES Final Re sult [facility]
[address] [id number], * (ABNORMAL) CBC Auto Differential (10/01/2025 6:14 AM EDT) WBC 10.60 3.40 - 10.80 10*3/mm3 10/01/2025 7:25 AM EDT [facility] RBC 4.79 3.77 - 5.28 10*6/mm3 10/01/2025 7:25 AM EDT [facility] Hemoglobin 14.6 12.0 - 15.9 g/dL 10/01/2025 7:25 AM EDT [facility] Hematocrit 45.3 34.0 - 46.6 % 10/01/2025 7:25 AM EDT [facility] MCV 94.6 79.0 - 97.0 fL 10/01/2025 7:25 AM EDT [facility] MCH 30.5 26.6 - 33.0 pg 10/01/2025 7:25 AM EDT [facility] MCHC 32.2 31.5 - 35.7 g/dL 10/01/2025 7:25 AM EDT [facility] RDW 14.7 12.3 - 15.4 % 10/01/2025 7:25 AM EDT [facility] RDW-SD 51.4 37.0 - 54.0 fl 10/01/2025 7:25 AM EDT [facility] MPV 11.3 6.0 - 12.0 fL 10/01/2025 7:25 AM EDT [facility] Platelets 218 140 - 450 10*3/mm3 10/01/2025 7:25 AM EDT [facility] Neutrophil % 82.9(H) 42.7 - 76.0 % 10/01/2025 7:25 AM EDT [facility] Lymphocyte % 13.6(L) 19.6 - 45.3 % 10/01/2025 7:25 AM EDT [facility] Monocyte % 2.1(L) 5.0 - 12.0 % 10/01/2025 7:25 AM EDT [facility] Eosinophil % 0.7 0.3 - 6.2 % 10/01/2025 7:25 AM EDT [facility] Basophil % 0.3 0.0 - 1.5 % 10/01/2025 7:25 AM EDT [facility] Immature Grans % 0.4 0.0 - 0.5 % 10/01/2025 7:25 AM EDT [facility] Neutrophils, Absolute 8.80(H) 1.70 - 7.00 10*3/mm3 10/01/2025 7:25 AM EDT [facility] Lymphocytes, Absolute 1.44 0.70 - 3.10 10*3/mm3 10/01/2025 7:25 AM EDT [facility] Monocytes, Absolute 0.22 0.10 - 0.90 10*3/mm3 10/01/2025 7:25 AM EDT [facility] Eosinophils, Absolute 0.07 0.00 - 0.40 10*3/mm3 10/01/2025 7:25 AM EDT [facility] Basophils, Absolute 0.03 0.00 - 0.20 10*3/mm3 10/01/2025 7:25 AM EDT [facility] Immature Grans, Absolute 0.04 0.00 - 0.05 10*3/mm3 10/01/2025 7:25 AM EDT [facility] nRBC 0.0 0.0 - 0.2 /100 WBC 10/01/2025 7:25 AM [facility] Blood Venipuncture / Unknown 10/01/2025 6:14 AM EDT 10/01/2025 6:21 AM EDT us Franklin Thorpe MD LAB BLOOD ORDERABLES Final Re sult [facility]
[address] [place] [address], * Lactic Acid, Plasma (10/01/2025 6:13 AM EDT) [facility] Lactate 1.8 0.5 - 2.0 mmol/L 10/01/2025 6:57 AM EDT [facility] Comment:Falsely depressed re sults may occur on samples drawn from patients receiving N-Acetylcysteine (NAC) or Metamizole. Blood Venipuncture / Unknown 10/01/2025 6:13 AM EDT 10/01/2025 6:21 AM EDT us Franklin Thorpe MD LAB BLOOD ORDERABLES Final Re sult Performing Organization Address [facility] Co de Phone Number [facility]
[address] [place] [address], * (ABNORMAL) POC Glucose Once (10/01/2025 5:58 AM EDT) [facility] Glucose 132(H) 70 - 130 mg/dL 10/01/2025 6:00 AM EDT [facility] Comment:Serial Number: [id number] Blood 10/01/2025 5:58 AM EDT 10/01/2025 6:00 AM EDT us Franklin Thorpe MD POINT OF CARE TEST ORDERABLES Final Result Performing Organization Address [facility] Co de Phone Number [facility]
[address] [place] [address], * (ABNORMAL) Blood Gas, Arterial With Co-Ox (10/01/2025 4:49 AM EDT) [facility] Site Left Radial 10/01/2025 4:51 AM EDT [facility] THERAPY Wili's Test N/A 10/01/2025 4:51 AM [facility] THERAP[facility] pH, Arterial 7.316(L) 7.350 - 7.450 pH units 10/01/2025 4:51 AM [facility] Comment:84 Value below refer ence range pCO2, Arterial 61.8(H) 35.0 - 45.0 mm Hg 10/01/2025 4:51 AM [facility] Comment:83 Value above refer ence range pO2, Arterial 70.8(L) 83.0 - 108.0 mm Hg 10/01/2025 4:51 AM [facility] Comment:84 Value below refer ence range HCO3, Arterial 31.5(H) 20.0 - 26.0 mmol/L 10/01/2025 4:51 AM [facility] THERAP[facility] Base Excess, Arterial 3.6(H) 0.0 - 2.0 mmol/L 10/01/2025 4:51 AM [facility] THERAP[facility] Hemoglobin, Blood Gas 13.7(L) 14 - 18 g/dL 10/01/2025 4:51 AM [facility] THER[facility] Hematocrit, Blood Gas 42.0 38.0 - 51.0 % 10/01/2025 4:51 AM [facility] Oxyhemoglobin 88.8(L) 94 - 99 % 10/01/2025 4:51 AM [facility] Comment:84 Value below refer ence range Methemoglobin 0.30 0.00 - 1.50 % 10/01/2025 4:51 AM [facility] Carboxyhemoglobin 3.7(H) 0 - 2 % 025 4:51 AM [facility] Comment:83 Value above refer ence range CO2 Content 33.4(H) 22 - 33 mmol/L 10/01/2025 4:51 AM [facility] THERAP[facility] Temperature 37.0 10/01/2025 4:51 AM [facility] THER[facility] Barometric Pressure for Blood Gas 10/01/2025 4:51 AM EDT [facility] Comment:N/A Modality PRB 10/01/2025 4:51 AM EDT [facility] THERAP[facility] FIO2 80 % 10/01/2025 4:51 AM EDT [facility] THERAP[facility] Rate 0 Breaths/ minute 10/01/2025 4:51 AM EDT [facility] THERAPY PIP 0 cmH2O 10/01/2025 4:51 AM EDT [facility] Comment:Meter: [id number] Perf[employer] Toilet Water Maker: [id number] IPAP 0 cm H2O 10/01/2025 4:51 AM EDT [facility] THERAP[facility] EPAP 0 cm H2O 10/01/2025 4:51 AM EDT [facility] THERAPY pH, Temp Corrected 7.316 pH Units 2024 4:51 AM EDT [facility] THERAPY pCO2, Temperature Corrected 61.8(H) 35 - 45 mm Hg 10/01/2025 4:51 AM EDT [facility] THERAPY pO2, Temperature Corrected 70.8(L) 83 - 108 mm Hg 10/01/2025 4:51 AM EDT [facility] THER[facility] Arterial Blood 10/01/2025 4: 49 AM EDT 10/01/2025 4:49 AM EDT us Franklin Thorpe MD LAB BLOOD ORDERABLES Final Re sult [facility] THERAPY
[address] * Respiratory Panel PCR w/COVID-19(SARS-CoV-2) CHRISTINA/JUANA/BELEN/PAD/COR/TYRA In-House, [employer] Swab in UTM/VTM, 2 HR TAT - Swab, Nasopharynx (10/01/2025 12:07 AM EDT) ADENOVIRUS, PCR Not Detected Not Detected [facility] 10/01/2025 1:35 AM EDT [facility] Coronavirus 229E Not Detected Not Detected [facility] 10/01/2025 1:35 AM EDT [facility] Coronavirus HKU1 Not Detected Not Detected [facility] 10/01/2025 1:35 AM EDT [facility] Coronavirus NL63 Not Detected Not Detected [facility] 10/01/2025 1:35 AM EDT [facility] Coronavirus OC43 Not Detected Not Detected [facility] 10/01/2025 1:35 AM EDT [facility] COVID19 Not Detected Not Detected - Ref. Range [facility] 10/01/2025 1:35 AM EDT [facility] Human Metapneumovirus Not Detected Not Detected [facility] 10/01/2025 1:35 AM EDT [facility] Human Rhinovirus/Enterov irus Not Detected Not Detected [facility] 10/01/2025 1:35 AM EDT [facility] Influenza A PCR Not Detected Not Detected [facility] 10/01/2025 1:35 AM EDT [facility] Influenza B PCR Not Detected Not Detected [facility] 10/01/2025 1:35 AM EDT [facility] Parainfluenza Virus 1 Not Detected Not Detected [facility] 10/01/2025 1:35 AM EDT [facility] Parainfluenza Virus 2 Not Detected Not Detected [facility] 10/01/2025 1:35 AM EDT [facility] Parainfluenza Virus 3 Not Detected Not Detected [facility] 10/01/2025 1:35 AM EDT [facility] Parainfluenza Virus 4 Not Detected Not Detected [facility] 10/01/2025 1:35 AM EDT [facility] RSV, PCR Not Detected Not Detected [facility] 10/01/2025 1:35 AM EDT [facility] Bordetella pertussis pcr Not Detected Not Detected [facility] 10/01/2025 1:35 AM EDT [facility] Bordetella parapertussis PCR Not Detected Not Detected [facility] 10/01/2025 1:35 AM EDT [facility] Chlamydophila pneumoniae PCR Not Detected Not Detected [facility] 10/01/2025 1:35 AM EDT [facility] Mycoplasma pneumo by PCR Not Detected Not Detected [facility] 10/01/2025 1:35 AM EDT [facility] Swab Nasopharyngeal structure / Unknown Collection / Unknown 10/01/2025 12:07 AM EDT 10/01/2025 12:35 AM EDT [facility] LABORATORY - 10/01/2025 1:35 AM EDT [...] MICROBIOLOGY - GENERAL ORDERA BLES Final Result [facility]
[address] [place] [address], * High Sensitivity Troponin T 1Hr (09/30/2025 11:49 PM EDT) HS Troponin T 10 <14 ng/L 10/01/2025 12:21 AM EDT [facility] Troponin T Numeric Delta 1 Abnormal if >/=3 ng/L 10/01/2025 12:21 AM EDT [facility] Blood Port / Unknown 09/30/2025 11 :49 PM EDT 10/01/2025 12:01 AM EDT [facility] LABORATORY - 10/01/2025 12:21 AM EDT [...] MD LAB BLOOD ORDERABLES Final Re sult [facility]
[address] [place] [address], * CT Abdomen Pelvis With Contrast (09/30/2025 11:48 PM EDT) Anatomical Region Laterality Modality Abdomen, Pelvis N/A Computed Tomogra phy 09/30/2025 11:5 4 PM EDT Impressions 09/30/2025 11:57 PM EDT Impression: 1.No acute abdominal or pelvic abnormality. 2.Interval resolution of hepatic steatosis. 3.Colonic diverticulosis. 4.Atherosclerosis. 5.Severe right hip DJD. Electronically Signed: Abraham Stephen MD 09/30/2025 11:57 PM EDT Workstation ID: [id number] Narrative 09/30/2025 11:[address] ABDOMEN [...] MD 09/30/2025 11:57 PM EDT Workstation ID: [id number] us Orlando Anthony MD IM CT ORDERABLES [...] MD 09/30/2025 11:54 PM EDT Workstation ID: [id number] Sheila 09/30/2025 11:[address] ANGIOGRAM [...] MD 09/30/2025 11:54 PM EDT Workstation ID: [id number] us Orlando Anthony MD IMG CT ORDERABLES Final Resul t * XR Chest 1 View (09/30/2025 10:22 PM EDT) Anatomical Region Laterality Modality Body N/A Radiographic Nancy ging 09/30/2025 10:3 7 PM EDT Impressions 09/30/2025 10:38 PM EDT Impression: 1.Emphysema. No acute cardiopulmonary abnormality. Electronically Signed: Abraham Espinosa MD 09/30/2025 10:38 PM EDT Workstation ID: [id number] Narrative 09/30/2025 10:38 PM EDT XR CHEST [...] MD 09/30/2025 10:38 PM EDT Workstation ID: [id number] Orlando Anthony MD IMG DIAGNOSTIC IMAGING ORDERA BLES Final Result * Telemetry Scan (09/30/2025 10:21 PM EDT) [facility] ECG ORDERABLES Final Result * ECG 12 [...] QT has lengthened Confirmed by ORLANDO ANTHONY ([id number]) on 10/05/2025 3:23:50 AM Referred By: OSWALDO JUAREZ Confirmed By: ORLANDO ANTHONY Procedure Note [...] QT has lengthened Confirmed by ORLANDO ANTHONY ([id number]) on 10/05/2025 3:23:50 AM Referred By: OSWALDO JUAREZ Confirmed By: ORLANDO ANTHONY us Orlando Anthony MD ECG ORDERABLES Final Result ECG * (ABNORMAL) Blood Gas, Venous With Co-Ox (09/30/2025 10:11 PM EDT) Site Nurse/Dr Mcintosh 09/30/2025 10:12 PM EDT [facility] pH, Venous 7.377 7.310 - 7.410 pH Units 09/30/2025 10:12 PM EDT [facility] pCO2, Venous 54.0(H) 41.0 - 51.0 mm Hg 09/30/2025 10:12 PM EDT [facility] Comment:83 Value above refer ence range pO2, Venous 33.4 27.0 - 53.0 mm Hg 09/30/2025 10:12 PM EDT [facility] HCO3, Venous 31.7(H) 22.0 - 28.0 mmol/L 09/30/2025 10:12 PM EDT [facility] Base Excess, Venous 5.1(H) -2.0 - 2.0 mmol/L 09/30/2025 10:12 PM EDT [facility] Hemoglobin, Blood Gas 13.8(L) 14 - 18 g/dL 09/30/2025 10:12 PM EDT [facility] Oxyhemoglobin Venous 57.5 % 09/02 10:12 PM EDT [facility] Methemoglobin Venous 0.5 % 09/02 10:12 PM EDT [facility] Carboxyhemoglobin Venous 6.7 % 09/30/2025 10:12 PM EDT [facility] Comment:83 Value above refer ence range CO2 Content 33.4(H) 22 - 33 mmol/L 09/30/2025 10:12 PM EDT [facility] Temperature 37.0 09/30/2025 10:12 PM EDT [facility] Barometric Pressure for Blood Gas 09/30/2025 10:12 PM EDT [facility] Comment:N/A Modality Nasal Cannula 09/30/2025 10:12 PM EDT [facility] FIO2 40 % 09/30/2025 10:12 PM EDT [facility] Rate 0 Breaths/ minute 09/30/2025 10:12 PM EDT [facility] PIP 0 cmH2O 09/30/2025 10:12 PM EDT [facility] Comment:Meter: [id number] Per[employer] Toilet Water Maker: [id number] IPAP 0 cm H2O 09/30/2025 10:12 PM EDT [facility] EPAP 0 cm H2O 09/30/2025 10:12 PM EDT [facility] Venous Blood 09/30/2025 10:1 1 PM EDT 09/30/2025 10:11 PM EDT us Orlando Anthony MD LAB BLOOD ORDERABLES Final Re sult [facility]
[address] * BNP (09/30/2025 10:03 PM EDT) proBNP 300.0 0.0 - 900.0 pg/mL 09/30/2025 11:16 PM EDT [facility] Blood Venipuncture / Unknown 09/30/2025 10:03 PM EDT 09/30/2025 10:17 PM EDT Narrative [facility] - 09/30/2025 11:16 PM EDT This [...] ORDERABLES Final Re sult Performing Organization Address City/[facility]/ZIP Co de Phone Number [facility]
[address] [place] [address], [place] [phone] * (ABNORMAL) Magnesium (09/30/2025 10:03 PM EDT) [facility] Magnesium 1.3(L) 1.6 - 2.4 mg/dL 09/30/2025 11:16 PM EDT [facility] Blood Venipuncture / Unknown 09/30/2025 10:03 PM EDT 09/30/2025 10:17 PM EDT us Orlando Anthony MD LAB BLOOD ORDERABLES Final Re sult [facility]
[address] [place] [address], [place] [phone] * (ABNORMAL) CBC Auto Differential (09/30/2025 10:03 PM EDT) WBC 11.01(H) 3.40 - 10.80 10*3/mm3 09/30/2025 10:20 PM EDT [facility] RBC 4.35 3.77 - 5.28 10*6/mm3 09/30/2025 10:20 PM EDT [facility] Hemoglobin 13.0 12.0 - 15.9 g/dL 09/30/2025 10:20 PM EDT [facility] Hematocrit 40.5 34.0 - 46.6 % 09/30/2025 10:20 PM EDT [facility] MCV 93.1 79.0 - 97.0 fL 09/30/2025 10:20 PM EDT [facility] MCH 29.9 26.6 - 33.0 pg 09/30/2025 10:20 PM EDT [facility] MCHC 32.1 31.5 - 35.7 g/dL 09/30/2025 10:20 PM EDT [facility] RDW 14.8 12.3 - 15.4 % 09/30/2025 10:20 PM EDT [facility] RDW-SD 51.1 37.0 - 54.0 fl 09/30/2025 10:20 PM EDT [facility] MPV 11.3 6.0 - 12.0 fL 09/30/2025 10:20 PM EDT [facility] Platelets 232 140 - 450 10*3/mm3 09/30/2025 10:20 PM EDT [facility] Neutrophil % 69.3 42.7 - 76.0 % 09/30/2025 10:20 PM EDT [facility] Lymphocyte % 21.9 19.6 - 45.3 % 09/30/2025 10:20 PM EDT [facility] Monocyte % 5.2 5.0 - 12.0 % 09/30/2025 10:20 PM EDT [facility] Eosinophil % 2.7 0.3 - 6.2 % 09/30/2025 10:20 PM EDT [facility] Basophil % 0.5 0.0 - 1.5 % 09/30/2025 10:20 PM EDT [facility] Immature Grans % 0.4 0.0 - 0.5 % 09/30/2025 10:20 PM EDT [facility] Neutrophils, Absolute 7.63(H) 1.70 - 7.00 10*3/mm3 09/30/2025 10:20 PM EDT [facility] Lymphocytes, Absolute 2.41 0.70 - 3.10 10*3/mm3 09/30/2025 10:20 PM EDT [facility] Monocytes, Absolute 0.57 0.10 - 0.90 10*3/mm3 09/30/2025 10:20 PM EDT [facility] Eosinophils, Absolute 0.30 0.00 - 0.40 10*3/mm3 09/30/2025 10:20 PM EDT [facility] Basophils, Absolute 0.06 0.00 - 0.20 10*3/mm3 09/30/2025 10:20 PM EDT [facility] Immature Grans, Absolute 0.04 0.00 - 0.05 10*3/mm3 09/30/2025 10:20 PM EDT [facility] nRBC 0.0 0.0 - 0.2 /100 WBC 09/30/2025 10:20 PM EDT [facility] Blood Venipuncture / Unknown 09/30/2025 10:03 PM EDT 09/30/2025 10:17 PM EDT us Orlando Anthony MD LAB BLOOD ORDERABLES Final Re sult [facility]
[address] [place] [address], * High Sensitivity Troponin T (09/30/2025 10:03 PM EDT) HS Troponin T 9 <14 ng/L 09/30/2025 10:42 PM EDT [facility] Blood Venipuncture / Unknown 09/30/2025 10:03 PM EDT 09/30/2025 10:17 PM EDT Narrative [facility] - 09/30/2025 10:42 PM EDT High [...] ORDERABLES Final Re sult Performing Organization Address [facility] Co de Phone Number [facility]
[address] [place] [address], * (ABNORMAL) Lipase (09/30/2025 10:03 PM EDT) Lipase 73(H) 13 - 60 U/L 09/30/2025 10:42 PM EDT [facility] Blood Venipuncture / Unknown 09/30/2025 10:03 PM EDT 09/30/2025 10:17 PM EDT Orlando Anthony MD LAB BLOOD ORDERABLES Final Re sult Performing Organization Address [facility] Co de Phone Number [facility]
[address] [place] [address], [place] [phone] * (ABNORMAL) Comprehensive Metabolic Panel (09/30/2025 10:03 PM EDT) Glucose 104(H) 65 - 99 mg/dL 09/30/2025 10:42 PM EDT [facility] BUN 18.6 8.0 - 23.0 mg/dL 09/30/2025 10:42 PM EDT [facility] Creatinine 1.29(H) 0.57 - 1.00 mg/dL 09/30/2025 10:42 PM [facility] Sodium 137 136 - 145 mmol/L 09/30/2025 10:42 PM [facility] Potassium 3.2(L) 3.5 - 5.2 mmol/L 09/30/2025 10:42 PM [facility] Chloride 95(L) 98 - 107 mmol/L 09/30/2025 10:42 PM [facility] CO2 28.8 22.0 - 29.0 mmol/L 09/30/2025 10:42 PM [facility] Calcium 8.5(L) 8.6 - 10.5 mg/dL 09/30/2025 10:42 PM [facility] Total Protein 6.9 6.0 - 8.5 g/dL 09/30/2025 10:42 PM [facility] Albumin 3.9 3.5 - 5.2 g/dL 09/30/2025 10:42 PM [facility] ALT (SGPT) 6 1 - 33 U/L 09/30/2025 10:42 PM [facility] AST (SGOT) 15 1 - 32 U/L 09/30/2025 10:42 PM [facility] Alkaline Phosphatase 89 39 - 117 U/L 09/30/2025 10:42 PM [facility] Total Bilirubin 0.5 0.0 - 1.2 mg/dL 09/30/2025 10:42 PM [facility] Globulin 3.0 gm/dL 09/30/2025 10:42 PM [facility] Comment:Calculated Result A/G Ratio 1.3 g/dL 09/30/2025 10:42 PM [facility] BUN/Creatinine Ratio 14.4 7.0 - 25.0 09/30/2025 10:42 PM [facility] Anion Gap 13.2 5.0 - 15.0 mmol/L 09/30/2025 10:42 PM [facility] eGFR 46.2(L) >60.0 mL/min/1.7 3 09/30/2025 10:42 PM EDT [facility] Blood Venipuncture / Unknown 09/30/2025 10:03 PM EDT 09/30/2025 10:17 PM EDT Narrative [facility] - 09/30/2025 10:42 PM EDT GFR [...] MD LAB BLOOD ORDERABLES Final Re sult [facility]
[address] [place] [address], [place] [phone] documented in this encounter Visit Diagnoses Diagnosis [...] On 10/03/25 at 1130, For 1 dose, ([facility]) Shake well before administration. Given 10/03/2025 10:43 AM EST 20 mL barium sulfate (VARIBAR THIN LIQUID) oral suspension 100 mL 100 mL, Oral, Once in Imaging, On 10/03/25 at 1130, For 1 dose, ([facility]) Shake well before administration. Given 10/03/2025 10:43 [...] 10/02/2025 5:25 AM EST 4,000 Units heparin 74499 units/250 mL (100 units/mL) in 0.45 % [...] mg/dL - 7 units & Call Provider ([facility]) Caution: Look alike/sound alike drug alert([facility]) Given 10/04/2025 5:06 PM EST 2 Units [...] tablet 100 mcg 100 mcg, Oral, Every Lathe Sander, First dose on Fri10/01/25 at 0600, Take [...] Pain Score of 7-10, CPOT 5-8 pancrelipase (Kie-Mcii-Fzcv) (CREON) capsule 12,000 units of lipase 12,000 [...] 5-8 0805 (Given - Provider: Clotilde Breen, Government Relations Analyst) 0905 (Given - Provider: Clotilde Breen, Government Relations Analyst) 0836 (Given - Provider: Caitlyn Breen, LAITH) atorvastatin (LIPITOR) tablet 40 mg 40 mg, Oral, Nightly, First dose on 10/01/25 at 2100, Avoid grapefruit juice. 2108 (Given - Provider: No Neal, LAITH) 2151 (Given - Provider: Arvin Edwards, LAITH) barium sulfate (VARIBAR PUDDING) oral paste 20 mL (COMPLETED) 20 mL, Oral, Once in Imaging, On 10/03/25 at 1130, For 1 dose, ([facility]) Shake well before administration. 1043 (Given - Provider: Rozina Rowland) barium sulfate (VARIBAR THIN LIQUID) oral suspension 100 mL (COMPLETED) 100 mL, Oral, Once in Imaging, On 10/03/25 at 1130, For 1 dose, ([facility]) Shake well before administration. 1043 (Given - Provider: Rozina Rowland) budesonide-formoterol (SYMBICORT) 160-4.5 MCG/ACT inhaler 2 puff 2 puff, Inhalation, 2 Times Daily - RT, First dose on 10/01/25 at 0930, Include Respiratory Treatment Education (SP) Shake well. Rinse mouth after use, do not swallow water. Send aerosols to pharmacy in ziplock bag for proper disposal. 0943 (Given - Provider: Yudy Morin, SAND TESTER)192 (Given - Provider: Vickey Nolan, SAND TESTER)2129 (Canceled Entry - Provider: Vickey Nolan SAND TESTER) 0843 (Given - Provider: Yudy Morin, SAND TESTER)1950 (Given - Provider: Sarah Ny, SAND TESTER)2129 (Canceled Entry - Provider: Sarah Ny, SAND TESTER - Comment: previously given) 0838 (Given - [...] Pneumonia 08 (Given - Provider: Clotilde Breen, Government Relations Analyst)2108 (Given - Provider: No Neal, LAITH) 904 (Given - Provider: Clotilde Breen, Government Relations Analyst) DULoxetine (CYMBALTA) DR capsule 60 mg 60 [...] capsule. 08 (Given - Provider: Clotilde Breen, Government Relations Analyst)2108 (Given - Provider: No Neal RN) 09 (Given - Provider: Clotilde Breen, Government Relations Analyst)2150 (Given - Provider: Arvin Edwards RN) 0836 (Given - Provider: Caitlyn Breen RN) furosemide (LASIX) tablet 20 mg 20 mg, Oral, Daily, First dose on 10/02/25 at 1145, On hold since Fri10/04/2025 at 1546 until manually unheld 0852 (Unheld by provider - Provider: Sabrina Stephens MD)1152 (Given - Provider: Clotilde Breen, Government Relations Analyst) 0904 (Given - Provider: Clotilde Breen, Government Relations Analyst)1546 (Held by provider - Provider: Roc Malcolm MD - Reason: Abnormal Vitals) 0900 (Dose Auto Held - Provider: Roc Malcolm MD)2023 (Unheld by provider - Provider: Automatic Discharge Provider) gabapentin (NEURONTIN) capsule 600 mg 600 mg, Oral, Every 12 Hours Scheduled, First dose (after last modification) on 10/02/25 at 1200, (TREVOR) 08 (Given - Provider: Clotilde Breen Government Relations Analyst)2108 (Given - Provider: No Neal, LAITH) 0902 (Given - Provider: Clotilde Breen, Government Relations Analyst)2148 (Given - Provider: Arvin Edwards RN) 0836 (Given - Provider: Caitlyn Breen RN) guaiFENesin (MUCINEX) 12 hr tablet 1,200 mg 1,200 mg, Oral, Every 12 Hours Scheduled, First dose on 10/01/25 at 0900, Caution: Look alike/sound alike drug alert Do not crush, split, or chew. 0804 (Given - Provider: Clotilde Breen, Government Relations Analyst)210 (Given - Provider: No Neal RN) 09 (Given - Provider: Clotilde Breen, Government Relations Analyst)214 (Given - Provider: Arvin Edwards RN) 0836 [...] mg/dL - 7 units & Call Provider ([facility]) Caution: Look alike/sound alike drug alert([facility]) 0748 (Not Given - Provider: Megan Hahn [...] Education 0943 (Given - Provider: Yudy Morin, SAND TESTER)1310 (Not Given - Provider: Yudy Morin SAND TESTER - Reason: Patient not available)1610 (Given - Provider: Yudy Morin SAND TESTER)1926 (Given - Provider: Vickey Nolan SAND TESTER)2030 (Canceled Entry - Provider: Vickey Nolan SAND TESTER) 0842 (Given - Provider: Yudy Morin RRT)1324 (Not Given - Provider: Yudy Morin RRT - Reason: Patient/family refused - Comment: pt sweating clammy and sick to stomach rn notified)1504 (Given - Provider: Jose Murray SAND TESTER)1630 (Canceled Entry - Provider: Jose Murray RRT)1950 (Given - Provider: Sarah Ny RRT) 0840 (Given - Provider: Bashir Martinez RRT)1328 (Not Given - Provider: Bashir Martinez RRT - Reason: Patient/family refused)1539 (Given - Provider: Bashir Martinez RRT) levothyroxine (SYNTHROID, LEVOTHROID) tablet 100 mcg 100 mcg, Oral, Every Lathe Sander, First dose on 10/01/25 at 0600, Take [...] Stephens MD)1152 (Given - Provider: Clotilde Breen, Government Relations Analyst) 0905 (Given - Provider: Clotilde Breen, Government Relations Analyst)1546 (Held by provider - Provider: Roc Malcolm [...] magnesium. 08 (Given - Provider: Clotilde Breen, Government Relations Analyst)2123 (Given - Provider: No Neal, LAITH) 902 (Given - Provider: Clotilde Breen, Government Relations Analyst)2151 (Given - Provider: Arvin Edwards, LAITH) 0836 (Given - Provider: Caitlyn Breen, RN) methylPREDNISolone sodium succinate (SOLU-Medrol) injection 40 mg (CANCELED) 40 mg, Intravenous, Every 24 Hours, First dose on 10/01/25 at 0915, Caution: Look alike/sound alike drug alert 0803 (Given - Provider: Clotilde Breen, Government Relations Analyst) metoprolol succinate XL (TOPROL-XL) 24 hr tablet [...] Student) 09 (Given - Provider: Clotilde Breen, Government Relations Analyst) 0836 (Given - Provider: Caitlyn Breen, RN) [...] Patient/family refused) 0906 (Not Given - Provider: Cltoilde Breen, Government Relations Analyst - Reason: Patient/family refused) 0839 (Not Given - Provider: Caitlyn Breen RN - Reason: Patient/family refused) pancrelipase (Pci-Bsql-Kugq) (CREON) capsule 12,000 units of lipase 12,000 units of lipase, Oral, 3 Times Daily With Meals, First dose on Fri10/01/25 at 1800, Give with meals. Swallow whole. Do not crush or chew capsule. For tube administration: may open capsules and add to juice. 0807 (Given - Provider: Clotilde Breen, Government Relations Analyst)1152 (Given - Provider: Clotilde Breen, Government Relations Analyst)1712 (Given - Provider: Megan Hahn, LAITH) 0904 (Given - Provider: Clotilde Breen, Government Relations Analyst)1218 (Given - Provider: Megan Hahn, RN)1706 (Given [...] Bleed 0803 (Given - Provider: Clotilde Breen, Government Relations Analyst)2123 (Given - Provider: No Neal RN) 0906 (Given - Provider: Clotilde Breen, Government Relations Analyst)215 (Given - Provider: Arvin Edwards RN) 0836 [...] MD) 09 (Given - Provider: Clotilde Breen, Government Relations Analyst) QUEtiapine (SEROquel) tablet 50 mg 50 mg, [...] chew. 08 (Given - Provider: Clotilde Breen, Government Relations Analyst)2124 (Given - Provider: No Neal RN) 09 (Given - Provider: Clotilde Breen, Government Relations Analyst)214 (Given - Provider: Arvin Edwards, RN) 0836 [...] 0900 0810 (Given - Provider: Clotilde Breen, Government Relations Analyst)212 (Given - Provider: No Neal RN) 1113 [...] minutes. 08 (Given - Provider: Clotilde Breen, Government Relations Analyst) 905 (Given - Provider: Clotilde Breen, Government Relations Analyst) 0836 (Given - Provider: Caitlyn Breen RN) [...] juice. 08 (Given - Provider: Clotilde Breen, Government Relations Analyst)2108 (Given - Provider: No Neal RN) 09 (Given - Provider: Clotilde Breen, Government Relations Analyst)2149 (Given - Provider: Arvin Edwards, RN - [...] for injection by adding 1 mL of patient financial specialist-supplied sterile diluent or sterile water for injection [...] 5-8 0803 (Given - Provider: Clotilde Breen, Government Relations Analyst)1151 (Given - Provider: Clotilde Breen, Government Relations Analyst)1849 (Given - Provider: Megan Hahn RN) 0333 (Given - Provider: No Neal RN)0911 (Given - Provider: Clotilde Breen, Government Relations Analyst)1518 (Given - Provider: Clotilde Breen, Government Relations Analyst)1939 (Given - Provider: Arvin Edwards RN) 0017 [...] Protocol Open Order & Select [facility] Electrolyte Replacement Protocol Algorithm to View Details [...] documented as of this encounter Care Teams Social Problems Specialist Relationship Specialty Start Date End Date Michael Colón MD [address] [place] [id number] PCP - General Family Medicine 04/30/23 documented as of this encounter
--- OUTSIDE RECORDS SUMMARY | 2025-10-19 14:14 | XMS_ITS | Encounter Summary ---
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 Name Role Phone Juan C Colón MD Primary Care Provider [phone] Reason for Visit * Reason Comments Shortness of Breath Encounter Details Date Type Department Care Team (Late st Contact Info) Description 10/19/2025 2:14 PM EST - 10/19/2025 5:38 PM [facility] Emergency [facility] EMERGENCY DEPARTMENT [address] [place] [address] Orlando Vallejo, [address] [place] [address] Acute on chronic heart failure, unspecified heart failure type (Primary Dx); Dyspnea and respiratory abnormalities; Chronic pancreatitis, unspecified pancreatitis type Discharge Disposition: Home or Self Care Social History Tobacco Use Types Packs/Day Years Used Date Smoking Tobacco: Former Cigarettes 0.3 45 0 12/01/1975 - 12/01/2020 Passive Smoke Exposure: Never Smokeless Tobacco: Never Comments:weaning off Alcohol Use Standard Drinks/Week Comments [...] care, and heating? Not very hard 10/02/2025 [facility] - Occupational Stress Questionnaire Answer Date Recorded [...] things needed for daily living? No 10/02/2025 [facility] Utilities Answer Date Recorded In the past 12 months has th [employer] electric, gas, oil, or water company threatened [...] GED or equivalent No 10/02/2025 Preferred Language Nauruan 10/02/2025 PHQ-2 Answer Date Recorded Patient Health Questionnaire-2 Score 0 10/02/2025 Comments No Sex and Gender Information Value Date Recorded Sex Assigned at Not on file Legal Sex Female 10:08 AM EDT Gender Identity Not on file Sexual Orientation Not on file documented as of this encounter Last Filed Vital Signs Vital Sign Reading Time Taken Comments Blood Pressure 127/116 10/19/2025 5:00 PM EST Pulse 93 10/19/2025 5:00 PM EST Temperature 36.2 C (97.2 F) 10/19/2025 4:34 PM EST Respiratory Rate 16 10/19/2025 4:33 PM EST Oxygen Saturation 94% 10/19/2025 5:00 PM EST Inhaled Oxygen Concentration - - Weight 95 kg (209 lb 7 oz) 10/19/2025 4:34 PM ES T Height 167.6 cm (5' 5.98 ) 10/19/2025 4:34 PM ES T Body Mass Index 33.82 10/19/2025 4:34 PM EST documented in this encounter Functional Status * Calculated C-SSRS Risk Score (Lifetime/Recent) Answer Date of Assessment Author No Risk Indicated 10/19/2025 4:35 PM EST Tonya Dobbs RN * [place] Suicide Severity Rating Scale (Screener/Recent Self-Report) Question Answer Date of Assessment Author 1. Wish to be (Past 1 Month) No 025 4:35 PM Melissa Deluna RN 2. Non-Specific Active Suici willy Thoughts (Past 1 Month) No 10/19/2025 4:35 PM Earnestine Deluna RN 6. Suicidal Behavior (Lifetime) No 5 4:35 PM Melissa Deluna RN documented as of this encounter Discharge Instructions * Attachments The following attachments cannot be sent through Care Everywhere. * Heart Failure Medicines (Nauruan) * Chronic Pancreatitis (Nauruan) * Shortness of Breath Adult Esvk-wy-Uele (Nauruan) * Living With COPD (Nauruan) documented in this encounter Medications at Time of Discharge acetaminophen (TYLENOL) 325 MG tablet Take 2 tablets by mouth Every 6 (Six) Hours As Needed for Mild Pain . 0 albuterol (PROVENTIL) (2.5 MG/3ML) 0.083% nebulizer solution [...] 1 tablet by mouth Daily. 30 tablet 5 atorvastatin (LIPITOR) 40 MG tablet Take 1 tablet by mouth Every Night. 30 tablet 7 dicyclomine (BENTYL) 10 MG capsule Take 1 capsule by mouth 3 (Three) Times a Day As Needed (abdominal cramping). 15 capsule 5 docusate sodium 100 MG capsuleIndications: Constipation Take 100 mg by mouth 2 (Two) Times a Day As Needed for Constipation. Indications: Constipation 0 DULoxetine (CYMBALTA) 60 MG capsule Take 1 [...] mouth 2 (Two) Times a Day. 3 levothyroxine (SYNTHROID, LEVOTHROID) 100 MCG tablet Take 1 tablet by mouth Every Morning. 30 tablet 3 3 lisinopril (PRINIVIL,ZESTRIL) 5 MG tablet Take 1 tablet by mouth Daily. 5 magnesium oxide (MAG-OX) 400 MG tablet Take 1 tablet by mouth 2 (Two) Times a Day. metFORMIN (GLUCOPHAGE) 1000 MG tablet Take 1 tablet by mouth 2 (Two) Times a Day With Meals. metoprolol succinate XL (TOPROL-XL) 25 MG 24 hr tablet Take 0.5 tablets by mouth Daily. 15 tablet 5 montelukast (SINGULAIR) 10 MG tablet Take 1 tablet by mouth Every Night. 4 nicotine (NICODERM CQ) 14 MG/24HR patch Place 1 patch on the skin as directed by provider Daily. 30 patch 5 ondansetron ODT (ZOFRAN-ODT) 4 MG disintegrating tablet Take 1 tablet by mouth 4 (Four) Times a Day As Needed for Nausea or Vomiting. 15 tablet 5 pancrelipase, Xkm-Buht-Lrzx, (CREON) 59232-94844 units capsule delayed-release particles capsule Take 1 capsule by mouth 3 (Three) Times a Day With Meals. 90 capsule 5 pantoprazole (PROTONIX) 40 MG EC tablet Take 1 tablet by mouth 2 (Two) Times a Day. 60 tablet 5 polyethylene glycol (MIRALAX) 17 g packet Take 17 g by mouth Daily. 0 potassium chloride 10 MEQ CR tablet Take 1 tablet by mouth Daily. 3 QUEtiapine (SEROquel) 50 MG tablet Take 1 tablet by mouth Every Night. 3 ranolazine (RANEXA) 500 MG 12 hr tablet Take 1 tablet by mouth 2 (Two) Times a Day. rOPINIRole (REQUIP) 0.25 MG tablet Take 1 tablet by mouth Every Night. 3 thiamine (VITAMIN B1) 100 MG tablet Take 1 tablet by mouth Daily. 30 tablet 5 traZODone (DESYREL) 100 MG tablet Take 1 tablet by mouth Every Night. 30 tablet 0 verapamil SR (CALAN-SR) 120 MG CR tablet Take 1 tablet by mouth 2 (Two) Times a Day. Xarelto 20 MG tablet Take 1 tablet by mouth Daily With Dinner. Pt to hold (1) week prior to procedure per Dr. Kearney 3 documented as of this encounter ED Notes * Orlando Vallejo DO - 10/19/2025 2:26 PM EST Images from the original note were not included. EMERGENCY DEPARTMENT ENCOUNTER Pt Name: Linda Arteaga Birthdate: 1960 Date of evaluation: 10/19/2025 Provider: Orlando Vallejo DO CHIEF COMPLAINT Chief Complaint Patient presents with Shortness of Breath HPI Stated Reason for Visit: pt arrived via ems from home, pt was seen yester at [facility] and dx with pneumonia, pt is here for carla, and cp. pt wears 3l nc baseline. Pt has hx of pancreatits.History Obtained From: EMS HISTORY OF PRESENT ILLNESS (Location/Symptom, Timing/Onset, Context/Setting, Quality, Duration, Modifying Factors, Severity.) Linda Arteaga is a 65 y.o. female who presents to the emergency department via [facility] secondary to concern for shortness of breath, generalized abdominal pain with a history of chronic recurrent pancreatitis, also underlying COPD. She notes she was just recently in the hospital at [facility] diagnosed with possible pneumonia, pancreatitis and was, sent home yesterday. She has continued epigastric pain, which she notes is chronic in nature. No vomiting, no diarrhea. She believes she has had some previous issues with COPD deformation, possible pneumonia, she believes she wassent home on antibiotics but she is unsure. She states today she started noticing some shortness of breath, denies abdominal pain, intermittent chest pain with a history of atrial fibrillation. She been compliant with her medications. Wears 3 L nasal cannula at baseline. Follows with behavior support specialist at [facility]. Denies any other acute systemic complaints Nursing notes were reviewed. PAST MEDICAL HISTORY Past Medical History: Diagnosis [...] one-sided weakness Supplemental oxygen dependent 2-3L NC SURGICAL HISTORY Past Surgical History: Procedure Laterality Date APPENDECTOMY CHOLECYSTECTOMY COLONOSCOPY CORONARY ANGIOPLASTY WITH STENT PLACEMENT x5 total; most recent 3 stents in 2019 - per pt. ENDOSCOPY HYSTERECTOMY PAIN PUMP INSERTION/REVISION right lower back PANCREAS SURGERY PORTACATH PLACEMENT TONSILLECTOMY VENOUS ACCESS DEVICE (PORT) REMOVAL N/A 04/29/2023 Procedure: PORT REMOVAL; Surgeon: Tha Sanchez MD; Location: [facility]; Service: General; Laterality: N/A; CURRENT MEDICATIONS Current Facility-Administered Medications: furosemide (LASIX) injection 60 mg, 60 mg, Intravenous, Once, Orlando Vallejo, DO sodium chloride 0.9 % flush 10 mL, 10 mL, Intravenous, PRN, Orlando Vallejo, DO Current Outpatient Medications: acetaminophen (TYLENOL) 325 MG tablet, Take 2 tablets by mouth Every 6 (Six) Hours As Needed for Mild Pain ., Disp: , Rfl: albuterol (PROVENTIL) (2.5 MG/3ML) 0.083% nebulizer solution, Take 2.5 mg by nebulization Every 6 (Six) Hours As Needed for Wheezing., Disp: , Rfl: albuterol sulfate HFA 108 (90 Base) MCG/ACT inhaler, Inhale 2 puffs Every 4 (Four) Hours As Needed for Wheezing., Disp: , Rfl: ALPRAZolam (XANAX) 1 MG tablet, Take 1 tablet by mouth 2 (Two) Times a Day As Needed for Anxiety., Disp: , Rfl: aspirin 81 MG EC tablet, Take 1 tablet by mouth Daily., Disp: 30 tablet, Rfl: 0 atorvastatin (LIPITOR) 40 MG tablet, Take 1 tablet by mouth Every Night., Disp: 30 tablet, Rfl: 0 dicyclomine (BENTYL) 10 MG capsule, Take 1 capsule by mouth 3 (Three) Times a Day As Needed (abdominal cramping)., Disp: 15 capsule, Rfl: 0 docusate sodium 100 MG capsule, Take 100 mg by mouth 2 (Two) Times a Day As Needed for Constipation. Indications: Constipation, Disp: , Rfl: DULoxetine (CYMBALTA) 60 MG capsule, Take 1 capsule by mouth 2 (Two) Times a Day., Disp: , Rfl: ferrous sulfate 324 (65 Fe) MG tablet delayed-release EC tablet, Take 1 tablet by mouth 2 (Two) Times a Day With Meals., Disp: , Rfl: [Paused] furosemide (LASIX) 20 MG tablet, Take 1 tablet by mouth Daily., Disp: , Rfl: gabapentin (NEURONTIN) 600 MG tablet, Take 1 tablet by mouth 2 (Two) Times a Day., Disp: , Rfl: levothyroxine (SYNTHROID, LEVOTHROID) 100 MCG tablet, Take 1 tablet by mouth Every Morning., Disp: 30 tablet, Rfl: 3 [Paused] lisinopril (PRINIVIL,ZESTRIL) 5 MG tablet, Take 1 tablet by mouth Daily., Disp: , Rfl: magnesium oxide (MAG-OX) 400 MG tablet, Take 1 tablet by mouth 2 (Two) Times a Day., Disp: , Rfl: metFORMIN (GLUCOPHAGE) 1000 MG tablet, Take 1 tablet by mouth 2 (Two) Times a Day With Meals., Disp: , Rfl: metoprolol succinate XL (TOPROL-XL) 25 MG 24 hr tablet, Take 0.5 tablets by mouth Daily., Disp: 15 tablet, Rfl: 0 montelukast (SINGULAIR) 10 MG tablet, Take 1 tablet by mouth Every Night., Disp: , Rfl: nicotine (NICODERM CQ) 14 MG/24HR patch, Place 1 patch on the skin as directed by provider Daily., Disp: 30 patch, Rfl: 0 ondansetron ODT (ZOFRAN-ODT) 4 MG disintegrating tablet, Take 1 tablet by mouth 4 (Four) Times a Day As Needed for Nausea or Vomiting., Disp: 15 tablet, Rfl: 0 pancrelipase, Dry-Fama-Obws, (CREON) 33675-94078 units capsule delayed-release particles capsule, Take 1 capsule by mouth 3 (Three) Times a Day With Meals., Disp: 90 capsule, Rfl: 0 pantoprazole (PROTONIX) 40 MG EC tablet, Take 1 tablet by mouth 2 (Two) Times a Day., Disp: 60 tablet, Rfl: 0 polyethylene glycol (MIRALAX) 17 g packet, Take 17 g by mouth Daily., Disp: , Rfl: [Paused] potassium chloride 10 MEQ CR tablet, Take 1 tablet by mouth Daily., Disp: , Rfl: QUEtiapine (SEROquel) 50 MG tablet, Take 1 tablet by mouth Every Night., Disp: , Rfl: ranolazine (RANEXA) 500 MG 12 hr tablet, Take 1 tablet by mouth 2 (Two) Times a Day., Disp: , Rfl: rOPINIRole (REQUIP) 0.25 MG tablet, Take 1 tablet by mouth Every Night., Disp: , Rfl: thiamine (VITAMIN B1) 100 MG tablet, Take 1 tablet by mouth Daily., Disp: 30 tablet, Rfl: 0 traZODone (DESYREL) 100 MG tablet, Take 1 tablet by mouth Every Night., Disp: 30 tablet, Rfl: 0 verapamil SR (CALAN-SR) 120 MG CR tablet, Take 1 tablet by mouth 2 (Two) Times a Day., Disp: , Rfl: Xarelto 20 MG tablet, Take 1 tablet by mouth Daily With Dinner. Pt to hold (1) week prior to procedure per Dr. Kearney, Disp: , Rfl: ALLERGIES Codeine, Ciprofloxacin, Demerol [meperidine], Toradol [ketorolac tromethamine], and Tramadol FAMILY HISTORY Family History Problem Relation Name [...] a month Sexual activity: Defer PHYSICAL EXAM Vitals: 10/19/25 1530 10/19/25 1630 10/19/25 1633 10/19/25 1634 BP: (!) 143/118 115/91 Pulse: 97 96 Resp: 16 Temp: 97.2 ??F (36.2 ??C) SpO2: 94% 90% Weight: 95 kg (209 lb 7 oz) Height: 167.6 cm (65.98 ) Physical Exam General : Patient is awake, alert, oriented, in no acute distress, nontoxic appearing, anxious HEENT: Pupils are equally round, EOMI, conjunctivae clear Neck: Neck is supple, full range of motion, trachea midline Cardiac: Heart irregularly irregular rhythm, no murmurs, rubs, or gallops Lungs: Lungs decreased breath sound bilaterally, no acute respiratory distress, saturations in the mid 90s on 3 L nasal cannula Chest wall: There is no tenderness to palpation over the chest wall or over ribs Abdomen: Abdomen is soft, nondistended. There is tenderness along the epigastric region, even with light palpation no focal tenderness is noted, bowel present throughout. Musculoskeletal: No peripheral edema, 5 out of 5 strength in all 4 extremities. No focal muscle deficits are appreciated Neuro: Motor intact, sensory intact, level of consciousness is normal, GCS 15 Dermatology: Skin is warm and dry DIAGNOSTIC RESULTS EKG: All EKGs are interpreted by the Emergency Department Physician who either signs or Co-signs this chart in the absence of a contact center specialist. ECG 12 Lead Dyspnea Preliminary Result Test Reason : Dyspnea Blood Pressure : */* mmHG Vent. Rate : 81 BPM Atrial Rate : 75 BPM P-R Int : * ms QRS Dur : 80 ms QT Int : 408 ms P-R-T Axes : * 30 32 degrees QTcB Int : 473 ms Atrial fibrillation Nonspecific ST and T wave abnormality Abnormal ECG When compared with ECG of 19-Oct-2025 14:30, No significant change was found Referred By: ED Confirmed By: ECG 12 Lead Dyspnea Final Result Test Reason : Dyspnea Blood Pressure : */* mmHG Vent. Rate : 90 BPM Atrial Rate : 375 BPM P-R Int : * ms QRS Dur : 82 ms QT Int : 386 ms P-R-T Axes : * 29 43 degrees QTcB Int : 472 ms Atrial fibrillation Nonspecific ST and T wave abnormality Abnormal ECG When compared with ECG of 02-Oct-2025 12:36, No significant change was found Confirmed by ORLANDO VALLEJO MD ([id number]) on 10/19/2025 2:31:27 PM Referred By: ED Confirmed By: ORLANDO VALLEJO MD RADIOLOGY: [x] Radiologist's Report Reviewed: CT Abdomen Pelvis Without Contrast Final Result Impression: 1.No acute process identified. Electronically Signed: Gerardo Larkin MD 10/19/2025 4:21 PM EST Workstation ID: [id number] CT Chest Without Contrast Diagnostic Final Result Impression: 1.No acute process identified. Electronically Signed: Gerardo Larkin MD 10/19/2025 4:21 PM EST Workstation ID: [id number] XR Chest 1 View Final Result Impression: Cardiomegaly. No acute radiographic abnormality is identified. Electronically Signed: Yonny Pritchard MD 10/19/2025 3:27 PM EST Workstation ID: [id number] I ordered and independently reviewed the above noted radiographic studies. I viewed images of chest x-ray which showed mild cardiomegaly without signs of effusion or pneumonia per my independent interpretation. See radiologist's dictation for official interpretation. LABS: I have reviewed and interpreted all of the currently available lab results from this visit (if applicable): Results for orders placed or performed during the hospital encounter of 10/19/25 ECG 12 Lead Dyspnea Collection Time: 10/19/25 2:30 PM Result Value Ref Range QT Interval 386 ms QTC Interval 472 ms Comprehensive Metabolic Panel Collection Time: 10/19/25 2:51 PM Specimen: Blood Result Value Ref Range Glucose 110 (H) 65 - 99 mg/dL BUN 18.4 8.0 - 23.0 mg/dL Creatinine 0.90 0.57 - 1.00 mg/dL Sodium 141 136 - 145 mmol/L Potassium 4.0 3.5 - 5.2 mmol/L Chloride 102 98 - 107 mmol/L CO2 31.8 (H) 22.0 - 29.0 mmol/L Calcium 8.7 8.6 - 10.5 mg/dL Total Protein 6.4 6.0 - 8.5 g/dL Albumin 3.6 3.5 - 5.2 g/dL ALT (SGPT) 13 1 - 33 U/L AST (SGOT) 18 1 - 32 U/L Alkaline Phosphatase 96 39 - 117 U/L Total Bilirubin 0.5 0.0 - 1.2 mg/dL Globulin 2.8 gm/dL A/G Ratio 1.3 g/dL BUN/Creatinine Ratio 20.4 7.0 - 25.0 Anion Gap 7.2 5.0 - 15.0 mmol/L eGFR 71.1 >60.0 mL/min/1.73 BNP Collection Time: 10/19/25 2:51 PM Specimen: Blood Result Value Ref Range proBNP 2,235.0 (H) 0.0 - 900.0 pg/mL High Sensitivity Troponin T Collection Time: 10/19/25 2:51 PM Specimen: Blood Result Value Ref Range HS Troponin T 12 <14 ng/L Lipase Collection Time: 10/19/25 2:51 PM Specimen: Blood Result Value Ref Range Lipase 22 13 - 60 U/L CBC Auto Differential Collection Time: 10/19/25 2:51 PM Specimen: Blood Result Value Ref Range WBC 12.20 (H) 3.40 - 10.80 10*3/mm3 RBC 4.01 3.77 - 5.28 10*6/mm3 Hemoglobin 12.2 12.0 - 15.9 g/dL Hematocrit 38.7 34.0 - 46.6 % MCV 96.5 79.0 - 97.0 fL MCH 30.4 26.6 - 33.0 pg MCHC 31.5 31.5 - 35.7 g/dL RDW 15.3 12.3 - 15.4 % RDW-SD 54.1 (H) 37.0 - 54.0 fl MPV 10.3 6.0 - 12.0 fL Platelets 310 140 - 450 10*3/mm3 Neutrophil % 64.6 42.7 - 76.0 % Lymphocyte % 27.2 19.6 - 45.3 % Monocyte % 4.9 (L) 5.0 - 12.0 % Eosinophil % 2.7 0.3 - 6.2 % Basophil % 0.2 0.0 - 1.5 % Immature Grans % 0.4 0.0 - 0.5 % Neutrophils, Absolute 7.87 (H) 1.70 - 7.00 10*3/mm3 Lymphocytes, Absolute 3.32 (H) 0.70 - 3.10 10*3/mm3 Monocytes, Absolute 0.60 0.10 - 0.90 10*3/mm3 Eosinophils, Absolute 0.33 0.00 - 0.40 10*3/mm3 Basophils, Absolute 0.03 0.00 - 0.20 10*3/mm3 Immature Grans, Absolute 0.05 0.00 - 0.05 10*3/mm3 nRBC 0.0 0.0 - 0.2 /100 WBC Green Top (Gel) Collection Time: 10/19/25 2:51 PM Result Value Ref Range Extra Tube Hold for add-ons. Lavender Top Collection Time: 10/19/25 2:51 PM Result Value Ref Range Extra Tube hold for add-on Gold Top - SST Collection Time: 10/19/25 2:51 PM Result Value Ref Range Extra Tube Hold for add-ons. Juárez Top Collection Time: 10/19/25 2:51 PM Result Value Ref Range Extra Tube Hold for add-ons. Light Blue Top Collection Time: 10/19/25 2:51 PM Result Value Ref Range Extra Tube Hold for add-ons. ECG 12 Lead Dyspnea Collection Time: 10/19/25 4:15 PM Result Value Ref Range QT Interval 408 ms QTC Interval 473 ms If labs were ordered, I independently reviewed the results and considered them in treating the patient. EMERGENCY DEPARTMENT COURSE and DIFFERENTIAL DIAGNOSIS/MDM: Vitals: OF 16:49 EST BP - 115/91 HR - 96 TEMP - 97.2 ??F (36.2 ??C) O2 SATS - 90% Orders placed during this visit: Orders Placed This Encounter Procedures XR Chest [address] Abdomen Pelvis Without Contrast CT Chest Without Contrast Diagnostic [place] Draw Comprehensive Metabolic Panel BNP High Sensitivity Troponin T Lipase Urinalysis With Microscopic If Indicated (No Culture) - Urine, Clean Catch CBC Auto Differential Continuous Pulse Oximetry Vital Signs Oxygen Therapy- Nasal Cannula; Titrate 1-6 LPM Per SpO2; 90 - 95% ECG 12 Lead Dyspnea Insert Peripheral IV CBC & Differential Green Top (Gel) Lavender Top Gold Top - SST Juárez Top Light Blue Top All labs have been independently reviewed by me. All radiology studies have been reviewed by me andthe radiologist dictating the report. All EKG's have been independently viewed and interpreted by me. Discussion below represents my analysis of pertinent findings related to patient's condition, differential diagnosis, treatment plan and final disposition. Differential diagnosis: The differential diagnosis associated with the patient's presentation includes: Chronic A-fib, COPDexacerbation, pneumonia, CHF, chronic abdominal pain, pancreatitis, electrolyte dysfunction Additional sources Discussed/ obtained information from independent historians: [] Spouse [] Parent [] Family member [] Friend [x] EMS -parents EMS [] Other: External (non-ED) record review: [x] Inpatient record: Patient's hospitalization from the end of August where she was seen in treated for COPD exacerbation, electrolyte dysfunction, had metabolic encephalopathy secondary to possible polysubstance abuse and metabolic derangements. [] Office record: [] Outpatient record: [] Prior Outpatient labs: [] Prior Outpatient radiology: [] Primary Care record: [] Outside ED record: [] Other: Patient's care impacted by: [] Diabetes [] Hypertension [] CHF [] Hyperlipidemia [] Coronary Artery Disease [x] COPD [] Cancer [] Tobacco Abuse [x] Substance Abuse [] Other: Care significantly affected by Social Determinants of Health (housing and economic circumstances, unemployment) [] Yes [x] No If yes, Patient's care significantly limited by Social Determinants of Health including: [] Inadequate housing [] Low income [] Alcoholism and drug addiction in family [] Problems related to primary support group [] Unemployment [] Problems related to employment [] Other Social Determinants of Health: MEDICATIONS ADMINISTERED IN ED: Medications sodium chloride 0.9 % flush 10 mL (has no administration in time range) furosemide (LASIX) injection 60 mg (has no administration in time range) droperidol (INAPSINE) injection 2.5 mg (2.5 mg Intravenous Given 10/19/25 1517) This is a 65-year-old female multiple chronic comorbidities presents secondary to generalized abdominal pain, shortness of breath and intermittent chest pain. She is multiple significant chronic comorbidities and was just discharged from a outside hospital yesterday with a presumptive diagnosis of pneumonia with chronic pancreatitis. She is nontoxic-appearing on my initial assessment, stable vital signs on initial examination. CBC blood count 12 with stable H&H, troponin is 12 with a normallipase, BNP is slightly elevated at 2200. She is on Lasix and has been holding it while she has been watching her daily weights. We discussed she may need to initiate a small dose of her diuretic to help with some of her dyspnea. Her kidney function liver function and electrolytes are normal. CT ofthe chest abdomen and pelvis without acute thoracic or abdominal/pelvic pathology, no pneumonia, effusion. On reassessment patient is resting comfortably. She states she has an appointment coming up with her GI specialist Dr. Arenas which she will maintain, will we will treat symptomatically for chronic pancreatitis, bowel rest for a few days, use of breathing treatments and oxygen which she has at home, having her follow-up with her PCP, GI specialist in a few days for reevaluation, returnto the ED with any worsening symptoms or further concerns. I had a discussion with the patient/family regarding diagnosis, diagnostic results, treatment plan,and medications. The patient/family indicated understanding of these instructions. I spent adequatetime at the bedside preceding discharge necessary to personally discuss the aftercare instructions, giving patient education, providing explanations of the results of our evaluations/findings, and mydecision making to assure that the patient/family understand the plan of care. Time was allotted toanswer questions at that time and throughout the ED course. Emphasis was placed on timely follow-upafter discharge. I also discussed the potential for the development of an acute emergent condition requiring further evaluation, admission, or even surgical intervention. I discussed that we found nothing during the visit today indicating the need for further workup, admission, or the presence of an unstable medical condition. I encouraged the patient to return to the emergency department immediately for ANY concerns, worsening, new complaints, or if symptoms persist and unable to seek follow-up in a timely fashion. The patient/family expressed understanding and agreement with this plan. The patient will follow-up with their PCP in 1-2 days for reevaluation. PROCEDURES: Procedures CRITICAL CARE TIME Total Critical Care time was 0 minutes, excluding separately reportable procedures. There was a high probability of clinically significant/life threatening deterioration in the patient's condition which required my urgent intervention. FINAL IMPRESSION 1. Acute on chronic heart failure, unspecified heart failure type 2. Dyspnea and respiratory abnormalities 3. Chronic pancreatitis, unspecified pancreatitis type DISPOSITION/PLAN ED Disposition ED Disposition Discharge Condition Stable Comment -- PATIENT REFERRED TO: Rubin Kearney MD [address] [facility] [address] [facility] [id number] Schedule an appointment as soon as possible for a visit Your GI specialist as planned for EGD Juan C Colón MD [phone] [facility] [address] In 2 days [facility] EMERGENCY DEPARTMENT [address] [facility] [address] If symptoms worsen DISCHARGE MEDICATIONS: Medication List PAUSE taking these medications furosemide 20 MG tablet Wait to take this until your doctor or other care provider tells you to start again. Commonly known as: LASIX lisinopril 5 MG tablet Wait to take this until your doctor or other care provider tells you to start again. Commonly known as: PRINIVIL,ZESTRIL Take 1 tablet by mouth Daily. potassium chloride 10 MEQ CR tablet Wait to take this until your doctor or other care provider tells you to start again. START taking these medications dicyclomine 10 MG capsule Commonly known as: BENTYL Take 1 capsule by mouth 3 (Three) Times a Day As Needed (abdominal cramping). ondansetron ODT 4 MG disintegrating tablet Commonly known as: ZOFRAN-ODT Take 1 tablet by mouth 4 (Four) Times a Day As Needed for Nausea or Vomiting. CONTINUE taking these medications acetaminophen 325 MG tablet Commonly known as: TYLENOL Take 2 tablets by mouth Every 6 (Six) Hours As Needed for Mild Pain . * albuterol (2.5 MG/3ML) 0.083% nebulizer solution Commonly known as: PROVENTIL * albuterol sulfate HFA 108 (90 Base) MCG/ACT inhaler Commonly known as: PROVENTIL HFA;VENTOLIN HFA;PROAIR HFA ALPRAZolam 1 MG tablet Commonly known as: XANAX aspirin 81 MG EC tablet Take 1 tablet by mouth Daily. atorvastatin 40 MG tablet Commonly known as: LIPITOR Take 1 tablet by mouth Every Night. docusate sodium 100 MG capsule Take 100 mg by mouth 2 (Two) Times a Day As Needed for Constipation. Indications: Constipation DULoxetine 60 MG capsule Commonly known as: CYMBALTA ferrous sulfate 324 (65 Fe) MG tablet delayed-release EC tablet gabapentin 600 MG tablet Commonly known as: NEURONTIN levothyroxine 100 MCG tablet Commonly known as: SYNTHROID, LEVOTHROID Take 1 tablet by mouth Every Morning. magnesium oxide 400 MG tablet Commonly known as: MAG-OX metFORMIN 1000 MG tablet Commonly known as: GLUCOPHAGE metoprolol succinate XL 25 MG 24 hr tablet Commonly known as: TOPROL-XL Take 0.5 tablets by mouth Daily. montelukast 10 MG tablet Commonly known as: SINGULAIR nicotine 14 MG/24HR patch Commonly known as: NICODERM CQ Place 1 patch on the skin as directed by provider Daily. pancrelipase (Jlb-Nhyd-Pyjg) 58529-90818 units capsule delayed-release particles capsule Commonly known as: CREON Take 1 capsule by mouth 3 (Three) Times a Day With Meals. pantoprazole 40 MG EC tablet Commonly known as: PROTONIX Take 1 tablet by mouth 2 (Two) Times a Day. polyethylene glycol 17 g packet Commonly known as: MIRALAX Take 17 g by mouth Daily. QUEtiapine 50 MG tablet Commonly known as: SEROquel ranolazine 500 MG 12 hr tablet Commonly known as: RANEXA rOPINIRole 0.25 MG tablet Commonly known as: REQUIP thiamine 100 MG tablet Commonly known as: VITAMIN B1 Take 1 tablet by mouth Daily. traZODone 100 MG tablet Commonly known as: DESYREL Take 1 tablet by mouth Every Night. verapamil SR 120 MG CR tablet Commonly known as: CALAN-SR Xarelto 20 MG tablet Generic drug: rivaroxaban * This list has 2 medication(s) that are the same as other medications prescribed for you. Read thedirections carefully, and ask your doctor or other care provider to review them with you. Where to Get Your Medications These medications were sent to [facility] - [place] [phone] [place] [phone] [address] dicyclomine 10 MG capsule ondansetron ODT 4 MG disintegrating tablet Comment: Please note this report has been produced using speech recognition software. Orlando Vallejo DO Attending Emergency Physician Orlando Vallejo DO 10/19/25 1640 documented in this encounter Plan of Treatment Not on file documented as of this encounter Procedures Procedure Name Priority Date/Time Associated Diagnosis Comments ECG 12-LEAD STAT 10/19/2025 4:[address] CHEST WO CONTRAST DIAGNOSTIC STAT 10/19/2025 4:[address] ABDOMEN PELVIS WO CONTRAST STAT 10/19/2025 4:07 PM EST JUÁREZ TOP STAT 10/19/2025 2:51 PM EST GOLD TOP - SST STAT 10/19/2025 2:51 PM EST DK GREEN TOP STAT 10/19/2025 2:51 PM EST CBC WITH AUTO DIFFERENTIAL STAT 10/19/2025 2:51 PM EST LAVENDER TOP STAT 10/19/2025 2:51 PM EST LIGHT BLUE TOP STAT 10/19/2025 2:51 PM EST RAINBOW DRAW STAT 10/19/2025 2:51 PM EST TROPONIN STAT 10/19/2025 2:51 PM EST CBC AND DIFFERENTIAL STAT 10/19/2025 2:51 PM EST B-TYPE NATRIURETIC PEPTIDE STAT 10/19/2025 2:51 PM EST LIPASE STAT 10/19/2025 2:51 PM EST COMPREHENSIVE METABOLIC PANEL STAT 10/19/2025 2:51 PM EST XR CHEST 1 VW STAT 10/19/2025 2:50 PM EST ECG 12-LEAD STAT 10/19/2025 2:30 PM EST documented in this encounter Results * ECG 12 Lead Dyspnea (10/19/2025 4:15 PM EST) Pathologist [facility] QT Interval 408 ms ECG QTC Interval 473 ms ECG 10/19/2025 4:15 PM EST 10/21/2025 6:37 AM EST Narrative ECG - 10/21/2025 6:37 AM EST Test Reason : Dyspnea Blood Pressure : */* mmHG Vent. Rate : 81 BPM Atrial Rate : 75 BPM P-R Int : * ms QRS Dur : 80 ms QT Int : 408 ms P-R-T Axes : * 30 32 degrees QTcB Int : 473 ms Atrial fibrillation Nonspecific ST and T wave abnormality Abnormal ECG When compared with ECG of 19-Oct-2025 14:30, No significant change was found Confirmed by Alan Quintana ([id number]) on 10/21/2025 6:37:50 AM Referred By: ED Confirmed By: Alan Quintana Procedure Note Alan Quintana MD - 10/21/2025 Test Reason : Dyspnea Blood Pressure : */* mmHG Vent. Rate : 81 BPM Atrial Rate : 75 BPM P-R Int : * ms QRS Dur : 80 ms QT Int : 408 ms P-R-T Axes : * 30 32 degrees QTcB Int : 473 ms Atrial fibrillation Nonspecific ST and T wave abnormality Abnormal ECG When compared with ECG of 19-Oct-2025 14:30, No significant change was found Confirmed by Alan Quintana ([id number]) on 10/21/2025 6:37:50 AM Referred By: ED Confirmed By: Alan Quintana us Orlando Vallejo DO ECG ORDERABLES Final Re sult ECG * CT Chest Without Contrast Diagnostic (10/19/2025 4:07 PM EST) Anatomical Region Laterality Modality Chest N/A Computed Tomogra phy 10/19/2025 4:14 PM EST Impressions 10/19/2025 4:21 PM EST Impression: 1.No acute process identified. Electronically Signed: Gerardo Larkin MD 10/19/2025 4:21 PM EST Workstation ID: [id number] Narrative 10/19/2025 4:[address] CHEST WO CONTRAST DIAGNOSTIC, CT ABDOMEN PELVIS WO CONTRAST Date of Exam: 10/19/2025 3:52 PM EST Indication: sob, b/l PNA. Pain, history pancreatitis Comparison: CT pulmonary angiogram 09/30/2025, CT abdomen pelvis with contrast 09/30/2025 Technique: Axial CT images were obtained of the chest abdomen and pelvis without contrast administration. Reconstructed coronal and sagittal images were also obtained. Automated exposure control and iterative construction methods were used. Findings: CT CHEST: MEDIASTINUM: Unremarkable. Aortic and heart size are normal. No mass nor pericardial effusion. CORONARY ARTERIES: There is calcified atherosclerotic disease. LUNGS: Lungs are clear. No consolidation. No significant nodule. Similar moderate emphysema. PLEURAL SPACE: No effusion, mass, nor pneumothorax. LYMPH NODES: No pathologically enlarged thoracic nodes. CT ABDOMEN AND PELVIS: LIVER: Unremarkable parenchyma without focal lesion. BILIARY/GALLBLADDER: Cholecystectomy SPLEEN: Unremarkable PANCREAS: Unremarkable ADRENAL: Unremarkable KIDNEYS: Unremarkable parenchyma with no solid mass identified. Similar simple right renal cyst. No obstruction. No calculus identified. GASTROINTESTINAL/MESENTERY: No evidence of obstruction nor inflammation. AORTA/IVC: Normal caliber. RETROPERITONEUM/LYMPH NODES: Unremarkable REPRODUCTIVE: Hysterectomy BLADDER: Unremarkable OSSEUS STRUCTURES: No acute process identified Procedure Note Gerardo Larkin MD - 10/19/2025 CT CHEST WO CONTRAST DIAGNOSTIC, CT ABDOMEN PELVIS WO CONTRAST Date of Exam: 10/19/2025 3:52 PM EST Indication: sob, b/l PNA. Pain, history pancreatitis Comparison: CT pulmonary angiogram 09/30/2025, CT abdomen pelvis withcontrast 09/30/2025 Technique: Axial CT images were obtained of the chest abdomen and pelviswithout contrast administration. Reconstructed coronal and sagittalimages were also obtained. Automated exposure control and iterativeconstruction methods were used. Findings: CT CHEST: MEDIASTINUM: Unremarkable. Aortic and heart size are normal. No mass norpericardial effusion. CORONARY ARTERIES: There is calcified atherosclerotic disease. LUNGS: Lungs are clear. No consolidation. No significant nodule. Similarmoderate emphysema. PLEURAL SPACE: No effusion, mass, nor pneumothorax. LYMPH NODES: No pathologically enlarged thoracic nodes. CT ABDOMEN AND PELVIS: LIVER: Unremarkable parenchyma without focal lesion. BILIARY/GALLBLADDER: Cholecystectomy SPLEEN: Unremarkable PANCREAS: Unremarkable ADRENAL: Unremarkable KIDNEYS: Unremarkable parenchyma with no solid mass identified. Similarsimple right renal cyst. No obstruction. No calculus identified. GASTROINTESTINAL/MESENTERY: No evidence of obstruction norinflammation. AORTA/IVC: Normal caliber. RETROPERITONEUM/LYMPH NODES: Unremarkable REPRODUCTIVE: Hysterectomy BLADDER: Unremarkable OSSEUS STRUCTURES: No acute process identified IMPRESSION: Impression: 1.No acute process identified. Electronically Signed: Gerardo Larkin MD 10/19/2025 4:21 PM EST Workstation ID: [id number] Orlando Vallejo DO [facility] CT ORDERABLES Final Result * CT Abdomen Pelvis Without Contrast (10/19/2025 4:07 PM EST) Anatomical Region Laterality Modality Abdomen, Pelvis N/A Computed Tomogra phy 10/19/2025 4:14 PM EST Impressions 10/19/2025 4:21 PM EST Impression: 1.No acute process identified. Electronically Signed: Gerardo Larkin MD 10/19/2025 4:21 PM EST Workstation ID: [id number] Narrative 10/19/2025 4:[address] CHEST WO CONTRAST DIAGNOSTIC, CT ABDOMEN PELVIS WO CONTRAST Date of Exam: 10/19/2025 3:52 PM EST Indication: sob, b/l PNA. Pain, history pancreatitis Comparison: CT pulmonary angiogram 09/30/2025, CT abdomen pelvis with contrast 09/30/2025 Technique: Axial CT images were obtained of the chest abdomen and pelvis without contrast administration. Reconstructed coronal and sagittal images were also obtained. Automated exposure control and iterative construction methods were used. Findings: CT CHEST: MEDIASTINUM: Unremarkable. Aortic and heart size are normal. No mass nor pericardial effusion. CORONARY ARTERIES: There is calcified atherosclerotic disease. LUNGS: Lungs are clear. No consolidation. No significant nodule. Similar moderate emphysema. PLEURAL SPACE: No effusion, mass, nor pneumothorax. LYMPH NODES: No pathologically enlarged thoracic nodes. CT ABDOMEN AND PELVIS: LIVER: Unremarkable parenchyma without focal lesion. BILIARY/GALLBLADDER: Cholecystectomy SPLEEN: Unremarkable PANCREAS: Unremarkable ADRENAL: Unremarkable KIDNEYS: Unremarkable parenchyma with no solid mass identified. Similar simple right renal cyst. No obstruction. No calculus identified. GASTROINTESTINAL/MESENTERY: No evidence of obstruction nor inflammation. AORTA/IVC: Normal caliber. RETROPERITONEUM/LYMPH NODES: Unremarkable REPRODUCTIVE: Hysterectomy BLADDER: Unremarkable OSSEUS STRUCTURES: No acute process identified Procedure Note Gerardo Larkin MD - 10/19/2025 CT CHEST WO CONTRAST DIAGNOSTIC, CT ABDOMEN PELVIS WO CONTRAST Date of Exam: 10/19/2025 3:52 PM EST Indication: sob, b/l PNA. Pain, history pancreatitis Comparison: CT pulmonary angiogram 09/30/2025, CT abdomen pelvis withcontrast 09/30/2025 Technique: Axial CT images were obtained of the chest abdomen and pelviswithout contrast administration. Reconstructed coronal and sagittalimages were also obtained. Automated exposure control and iterativeconstruction methods were used. Findings: CT CHEST: MEDIASTINUM: Unremarkable. Aortic and heart size are normal. No mass norpericardial effusion. CORONARY ARTERIES: There is calcified atherosclerotic disease. LUNGS: Lungs are clear. No consolidation. No significant nodule. Similarmoderate emphysema. PLEURAL SPACE: No effusion, mass, nor pneumothorax. LYMPH NODES: No pathologically enlarged thoracic nodes. CT ABDOMEN AND PELVIS: LIVER: Unremarkable parenchyma without focal lesion. BILIARY/GALLBLADDER: Cholecystectomy SPLEEN: Unremarkable PANCREAS: Unremarkable ADRENAL: Unremarkable KIDNEYS: Unremarkable parenchyma with no solid mass identified. Similarsimple right renal cyst. No obstruction. No calculus identified. GASTROINTESTINAL/MESENTERY: No evidence of obstruction norinflammation. AORTA/IVC: Normal caliber. RETROPERITONEUM/LYMPH NODES: Unremarkable REPRODUCTIVE: Hysterectomy BLADDER: Unremarkable OSSEUS STRUCTURES: No acute process identified IMPRESSION: Impression: 1.No acute process identified. Electronically Signed: Gerardo Larkin MD 10/19/2025 4:21 PM EST Workstation ID: [id number] us Orlando Vallejo DO [facility] CT ORDERABLES Final Result * (ABNORMAL) CBC Auto Differential (10/19/2025 2:51 PM EST) WBC 12.20(H) 3.40 - 10.80 10*3/mm3 10/19/2025 3:06 PM [facility] RBC 4.01 3.77 - 5.28 10*6/mm3 10/19/2025 3:06 PM EST [facility] Hemoglobin 12.2 12.0 - 15.9 g/dL 10/19/2025 3:06 PM [facility] Hematocrit 38.7 34.0 - 46.6 % 10/19/2025 3:06 PM [facility] MCV 96.5 79.0 - 97.0 fL 10/19/2025 3:06 PM [facility] MCH 30.4 26.6 - 33.0 pg 10/19/2025 3:06 PM [facility] MCHC 31.5 31.5 - 35.7 g/dL 10/19/2025 3:06 PM [facility] RDW 15.3 12.3 - 15.4 % 10/19/2025 3:06 PM [facility] RDW-SD 54.1(H) 37.0 - 54.0 fl 10/19/2025 3:06 PM [facility] MPV 10.3 6.0 - 12.0 fL 10/19/2025 3:06 PM [facility] Platelets 310 140 - 450 10*3/mm3 10/19/2025 3:06 PM [facility] Neutrophil % 64.6 42.7 - 76.0 % 10/19/2025 3:06 PM [facility] Lymphocyte % 27.2 19.6 - 45.3 % 10/19/2025 3:06 PM [facility] Monocyte % 4.9(L) 5.0 - 12.0 % 10/19/2025 3:06 PM [facility] Eosinophil % 2.7 0.3 - 6.2 % 10/19/2025 3:06 PM [facility] Basophil % 0.2 0.0 - 1.5 % 10/19/2025 3:06 PM [facility] Immature Grans % 0.4 0.0 - 0.5 % 10/19/2025 3:06 PM [facility] Neutrophils, Absolute 7.87(H) 1.70 - 7.00 10*3/mm3 10/19/2025 3:06 PM [facility] Lymphocytes, Absolute 3.32(H) 0.70 - 3.10 10*3/mm3 10/19/2025 3:06 PM [facility] Monocytes, Absolute 0.60 0.10 - 0.90 10*3/mm3 10/19/2025 3:06 PM [facility] Eosinophils, Absolute 0.33 0.00 - 0.40 10*3/mm3 10/19/2025 3:06 PM [facility] Basophils, Absolute 0.03 0.00 - 0.20 10*3/mm3 10/19/2025 3:06 PM EST [facility] Immature Grans, Absolute 0.05 0.00 - 0.05 10*3/mm3 10/19/2025 3:06 PM EST [facility] nRBC 0.0 0.0 - 0.2 /100 WBC 10/19/2025 3:06 PM EST [facility] Blood Venipuncture / Unknown 10/19/2025 2:51 PM EST 10/19/2025 3:01 PM EST us Orlando Vallejo DO LAB BLOOD ORDERABLES Fin al Result Performing Organization Address City/[facility]/ZIP Co de Phone Number [facility]
[address] [place] [address], * Light Blue Top (10/19/2025 2:51 PM EST) Extra Tube Hold for add-ons. 10/19/2025 3:15 PM EST [facility] Comment:Auto resulted Blood Venipuncture / Unknown 10/19/2025 2:51 PM EST 10/19/2025 3:01 PM EST us Orlando Vallejo DO LAB BLOOD ORDER ONLY Fin al Result [facility]
[address] [place] [address], [place] [phone] * Juárez Top (10/19/2025 2:51 PM EST) Extra Tube Hold for add-ons. 10/19/2025 3:15 PM EST [facility] Comment:Auto resulted. Blood Venipuncture / Unknown 10/19/2025 2:51 PM EST 10/19/2025 3:01 PM EST us Orlando Vallejo DO LAB BLOOD ORDER ONLY Fin al Result Performing Organization Address [facility] de Phone Number [facility]
[address] [place] [address], * Gold Top - SST (10/19/2025 2:51 PM EST) Extra Tube Hold for add-ons. 10/19/2025 3:15 PM EST [facility] Comment:Auto resulted. Blood Venipuncture / Unknown 10/19/2025 2:51 PM EST 10/19/2025 3:01 PM EST us Orlando Vallejo DO LAB BLOOD ORDER ONLY Fin al Result Performing Organization Address [facility] Phone Number [facility]
[address] [place] [address], * Lavender Top (10/19/2025 2:51 PM EST) Extra Tube hold for add-on 10/19/2025 3:15 PM EST [facility] Comment:Auto resulted Blood Venipuncture / Unknown 10/19/2025 2:51 PM EST 10/19/2025 3:01 PM EST us Orlando Vallejo DO LAB BLOOD ORDER ONLY Fin al Result Performing Organization Address City/[facility] de Phone Number [facility]
[address] [place] [address], * Green Top (Gel) (10/19/2025 2:51 PM EST) Extra Tube Hold for add-ons. 10/19/2025 3:00 PM EST [facility] Comment:Auto resulted. Blood Venipuncture / Unknown 10/19/2025 2:51 PM EST 10/19/2025 3:00 PM EST [facility] LAB BLOOD ORDER ONLY Fin al Result Performing Organization Address City/[facility] Co de Phone Number [facility]
[address] [place] [address], * Lipase (10/19/2025 2:51 PM EST) Lipase 22 13 - 60 U/L 10/19/2025 3:29 PM EST [facility] Blood Venipuncture / Unknown 10/19/2025 2:51 PM EST 10/19/2025 3:00 PM EST [facility]ABLES Fin al Result Performing Organization Address [facility] de Phone Number [facility]
[address] [place] [address], * High Sensitivity Troponin T (10/19/2025 2:51 PM EST) Pathologist [facility] HS Troponin T 12 <14 ng/L 10/19/2025 3:29 PM EST [facility] Blood Venipuncture / Unknown 10/19/2025 2:51 PM EST 10/19/2025 3:00 PM EST Narrative [facility] - 10/19/2025 3:29 PM EST High Sensitive Troponin T Reference Range: <14.0 [...] due to an underlying chronic condition. Orlando [facility] LAB BLOOD ORDERABLES Fin al Result Performing Organization Address [facility] de Phone Number [facility]
[address] [place] [address], * (ABNORMAL) BNP (10/19/2025 2:51 PM EST) Pathologist [facility] proBNP 2,235.0(H) 0.0 - 900.0 pg/mL 10/19/2025 3:29 PM EST [facility] Blood Venipuncture / Unknown 10/19/2025 2:51 PM EST 10/19/2025 3:00 PM EST [facility] - 10/19/2025 3:29 PM EST This assay is used as an aid [...] Positive >1800 Juárez 300-1800 Negative <300 us Orlando Vallejo DO LAB BLOOD ORDERABLES Fin al Result [facility]
[address] [place] [address], * (ABNORMAL) Comprehensive Metabolic Panel (10/19/2025 2:51 PM EST) [facility] Glucose 110(H) 65 - 99 mg/dL 10/19/2025 3:31 PM EST [facility] BUN 18.4 8.0 - 23.0 mg/dL 10/19/2025 3:31 PM EST [facility] Creatinine 0.90 0.57 - 1.00 mg/dL 10/19/2025 3:31 PM EST [facility] Sodium 141 136 - 145 mmol/L 10/19/2025 3:31 PM EST [facility] Potassium 4.0 3.5 - 5.2 mmol/L 10/19/2025 3:31 PM [facility] Comment:Specimen hemolyzed. Result may be falsely elevated. Chloride 102 98 - 107 mmol/L 10/19/2025 3:31 PM [facility] CO2 31.8(H) 22.0 - 29.0 mmol/L 10/19/2025 3:31 PM [facility] Calcium 8.7 8.6 - 10.5 mg/dL 10/19/2025 3:31 PM [facility] Total Protein 6.4 6.0 - 8.5 g/dL 10/19/2025 3:31 PM [facility] Albumin 3.6 3.5 - 5.2 g/dL 10/19/2025 3:31 PM [facility] ALT (SGPT) 13 1 - 33 U/L 10/19/2025 3:31 PM [facility] AST (SGOT) 18 1 - 32 U/L 10/19/2025 3:31 PM [facility] Alkaline Phosphatase 96 39 - 117 U/L 10/19/2025 3:31 PM [facility] Total Bilirubin 0.5 0.0 - 1.2 mg/dL 10/19/2025 3:31 PM [facility] Globulin 2.8 gm/dL 10/19/2025 3:31 PM [facility] Comment:Calculated Result A/G Ratio 1.3 g/dL 10/19/2025 3:31 PM [facility] BUN/Creatinine Ratio 20.4 7.0 - 25.0 10/19/2025 3:31 PM [facility] Anion Gap 7.2 5.0 - 15.0 mmol/L 10/19/2025 3:31 PM [facility] eGFR 71.1 >60.0 mL/min/1.7 3 10/19/2025 3:31 PM [facility] Blood Venipuncture / Unknown 10/19/2025 2:51 PM EST 10/19/2025 3:00 PM EST Narrative [facility] - 10/19/2025 3:31 PM EST GFR Categories in Chronic Kidney [...] include race as a factor us Orlando Vallejo DO LAB BLOOD ORDERABLES Fin al Result [facility]
[address] [place] [address], * XR Chest 1 View (10/19/2025 2:50 PM EST) Anatomical Region Laterality Modality Body N/A Radiographic Nancy ging 10/19/2025 2:59 PM EST Impressions 10/19/2025 3:27 PM EST Impression: Cardiomegaly. No acute radiographic abnormality is identified. Electronically Signed: Yonny Pritchard MD 10/19/2025 3:27 PM EST Workstation ID: [id number] Narrative 10/19/2025 3:27 PM EST XR CHEST 1 VW Date of Exam: 10/19/2025 2:37 PM EST Indication: CHF/COPD protocol. Comparison: 10/01/2025 Findings: Right chest wall Port-A-Cath is present. The lungs appear adequately aerated without consolidation or mass. No pleural effusion or pneumothorax is identified. Cardiac silhouette is enlarged. Pulmonary vasculature appears unremarkable. No acute or suspicious osseous lesion is identified. Cervical spine fusion hardware is present. Chronic right-sided rib fracture deformities are seen. Procedure Note Yonny Pritchard MD - 10/19/2025 XR CHEST 1 VW Date of Exam: 10/19/2025 2:37 PM EST Indication: CHF/COPD protocol. Comparison: 10/01/2025 Findings: Right chest wall Port-A-Cath is present. The lungs appear adequatelyaerated without consolidation or mass. No pleural effusion or pneumothoraxis identified. Cardiac silhouette is enlarged. Pulmonary vasculatureappears unremarkable. No acute or suspicious osseous lesion is identified. Cervical spine fusion hardware ispresent. Chronic right-sided rib fracture deformities are seen. IMPRESSION: Impression: Cardiomegaly. No acute radiographic abnormality is identified. Electronically Signed: Yonny Pritchard MD 10/19/2025 3:27 PM EST Workstation ID: [id number] us Orlando Vallejo DO IMG DIAGNOSTIC IMAGING O RDERABLES Final Result * ECG 12 Lead Dyspnea (10/19/2025 2:30 PM EST) QT Interval 386 ms BH ECG QTC Interval 472 ms ECG 10/19/2025 2:30 PM EST 10/19/2025 2:31 PM EST Narrative ECG - 10/19/2025 2:31 PM EST Test Reason : Dyspnea Blood Pressure : */* mmHG Vent. Rate : 90 BPM Atrial Rate : 375 BPM P-R Int : * ms QRS Dur : 82 ms QT Int : 386 ms P-R-T Axes : * 29 43 degrees QTcB Int : 472 ms Atrial fibrillation Nonspecific ST and T wave abnormality Abnormal ECG When compared with ECG of 02-Oct-2025 12:36, No significant change was found Confirmed by ORLANDO VALLEJO MD ([id number]) on 10/19/2025 2:31:27 PM Referred By: ED Confirmed By: ORLANDO VALLEJO MD Procedure Note Orlando Vallejo DO - 10/19/2025 Test Reason : Dyspnea Blood Pressure : */* mmHG Vent. Rate : 90 BPM Atrial Rate : 375 BPM P-R Int : * ms QRS Dur : 82 ms QT Int : 386 ms P-R-T Axes : * 29 43 degrees QTcB Int : 472 ms Atrial fibrillation Nonspecific ST and T wave abnormality Abnormal ECG When compared with ECG of 02-Oct-2025 12:36, No significant change was found Confirmed by ORLANDO VALLEJO MD ([id number]) on 10/19/2025 2:31:27 PM Referred By: ED Confirmed By: ORLANDO VALLEJO MD Orlando Vallejo DO ECG ORDERABLES Final Re sult BH ECG documented in this encounter Visit Diagnoses Diagnosis Acute on chronic heart failure, unspecified heart failure type- Primary Dyspnea and respiratory abnormalities Chronic pancreatitis, unspecified pancreatitis type documented in this encounter Administered Medications Inactive Administered Medications - up to 3 most recent administrations Medication Order MAR Action Action Date Dose Rate Site droperidol (INAPSINE) injection 2.5 mg 2.5 mg, Intravenous, Once, On Fri10/19/25 at 1444, For 1 dose Given 10/19/2025 3:17 PM EST 2.5 mg furosemide (LASIX) injection 60 mg 60 mg, Intravenous, Once, On Fri10/19/25 at 1555, For 1 dose, Hold for SBP less than 100, DBP less than 60 Given 10/19/2025 5:27 PM EST 60 mg heparin injection 500 Units 500 Units (5 mL), Intravenous, As Needed, Line Care, Prior to De-Accessing Port, Starting on Fri10/19/25 at 1721 Given 10/19/2025 5:33 PM EST 500 Units sodium chloride 0.9 % flush 10 mL 10 mL, Intravenous, As Needed, Line Care, Starting on Fri10/19/25 at 1426 documented in this encounter Active and Recently Administered Medications Times are shown in EST. Scheduled Medication Order 10/17/2025 10/18/2025 10/19/2025 droperidol (INAPSINE) injection 2.5 mg (COMPLETED) 2.5 mg, Intravenous, Once, On Fri10/19/25 at 1444, For 1 dose 1517 (Given - Provid er: Melissa Dobbs RN) furosemide (LASIX) injection 60 mg (COMPLETED) 60 mg, Intravenous, Once, On Fri10/19/25 at 1555, For 1 dose, Hold for SBP less than 100, DBP less than 60 1727 (Given - Provid er: Melissa Dobbs RN) PRN Medication Order 10/17/2025 10/18/2025 10/19/2025 heparin injection 500 Units 500 Units (5 mL), Intravenous, As Needed, Line Care, Prior to De-Accessing Port, Starting on Fri10/19/25 at 1721 1733 (Given - Provid er: Melissa Dobbs RN) sodium chloride 0.9 % flush 10 mL 10 mL, Intravenous, As Needed, Line Care, Starting on Fri10/19/25 at 1426 documented in this encounter Additional Health Concerns Infection Onset Date Last Indicated Resolved Time 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
[2025-11-03] VITALS (8 sets, daily range): BP systolic 108–133; BP diastolic 77–96; PULSE 64–115; RESP 9–20; TEMP 36.6–36.9; O2SAT 90–100; BMI 30.7
--- NOTE | 2025-11-03 11:51 | ECG_ITS ---
APPROVED REPORT Exam: Resting ECG HR:102 bpm ECG Measurements Heart Rate 102 AXES QRSd 91 QRS 62 QT 366 T 66 QTc 425 Conclusion ATRIAL FIBRILLATION WITH RAPID VENTRICULAR RESPONSE MINIMAL ST DEPRESSION [0.025+ mV ST DEPRESSION] ABNORMAL RHYTHM ECG UNCONFIRMED REPORT A-fib with RVR. No ST elevation or depression. QTc 425 Electronically signed by : AKSHAT PERKINS, 11/04/2025 07:30:22
--- NOTE | 2025-11-03 12:03 | XR_ITS ---
FINAL REPORT CLINICAL HISTORY: chest pain, shortness of breath COMPARISON: 12/14/2024 FINDINGS: SINGLE VIEW CHEST There is mild cardiomegaly. Right chest port tip terminates in the SVC. The mediastinum is unremarkable. There are mild chronic changes at the bases. There is no pneumothorax. There are multiple healed fracture deformities involving the right 4th, 5th, 6th, and 7th ribs. IMPRESSION: No acute process. Reviewed, Interpreted and Dictated by Diogo Rose MD Transcribed by Thea Rojo Authenticated and [facility]
--- NOTE | 2025-11-03 12:03 | CT_ITS ---
FINAL REPORT TECHNIQUE: Axial images of the abdomen and pelvis was performed using CTA protocol. Reconstructed images were obtained and reviewed. This study was performed with techniques to keep radiation doses as low as reasonably achievable, (ALARA). Individualized dose reduction techniques using automated exposure control or adjustment of mA and/or kV according to the patient's size were employed. CLINICAL HISTORY: Dark, tarry stools COMPARISON: 10/14/2025 FINDINGS: There are ground glass opacities at the bases with associated bibasilar atelectasis. The liver parenchyma is homogeneous. The gallbladder is surgically absent. The spleen, pancreas, and adrenals are unremarkable. There is a benign-appearing cyst in the right kidney measuring 3.2 cm in diameter. Streak artifact is seen arising from intrathecal pump in the superior right gluteal region. There is abnormal mucosal thickening and soft tissue stranding surrounding diverticuli in the distal descending colon well-seen on images 115-125 of series 4 consistent with acute diverticulitis. There is high density throughout the transverse and descending colon. This density appears to reside in the lumen of the colon. No precontrast images were obtained. Findings are favored to be related to enteric contrast rather than active hemorrhage. The celiac axis, SMA, and MATA are patent. The aorta is normal in caliber. There is dense vascular calcification of the common iliac arteries bilaterally with stenosis measuring approximately 80%. IMPRESSION: Stranding surrounding distal descending colon diverticuli, probably due to acute diverticulitis. Contrast in the lumen of the bowel, favor this contrast is related to enteric contrast rather than acute hemorrhage. Reviewed, Interpreted and Dictated by Diogo Rose MD Transcribed by Thea Rojo Authenticated and [facility]
--- NOTE | 2025-11-03 12:07 | [facility].EDGENADL ---
Discharge Plan Disposition Patient Disposition: Home, Self-Care Prescriptions Prescriptions: New amoxicillin-pot clavulanate 875-125 mg tablet 1 tab PO TID Qty: 15 0RF No Action Xarelto 20 mg tablet 20 mg PO QPMWITHMEAL metoprolol succinate 25 mg tablet extended release 24 hr 12.5 mg PO DAILY Qty: 90 3RF verapamil 120 mg tablet extended release 120 mg PO BID Qty: 60 3RF promethazine 25 mg tablet 25 mg PO TID Qty: 90 0RF alprazolam 1 mg tablet 1 mg PO TID PRN (Reason: anxiety) Qty: 90 3RF dicyclomine 20 mg tablet 20 mg PO TID Qty: 90 3RF Trelegy Ellipta 200-62.5-25 mcg blister with device 1 inh inhalation DAILY Qty: 60 12RF atorvastatin 40 mg tablet 40 mg PO HS Qty: 90 3RF pantoprazole 40 mg tablet,delayed release (DR/EC) 40 mg PO HS 30 Days Qty: 30 0RF potassium chloride 10 mEq tablet extended release 10 meq PO DAILY Qty: 90 0RF duloxetine 60 mg capsule,delayed release(DR/EC) 60 mg PO BID 90 Days Qty: 180 0RF trazodone 100 mg tablet 100 mg PO HS Qty: 90 0RF montelukast 10 mg tablet 10 mg PO HS Qty: 30 2RF magnesium oxide 400 mg (241.3 mg magnesium) tablet 400 mg PO BID Qty: 60 3RF quetiapine [Seroquel] 50 mg tablet 50 mg PO DAILY Qty: 90 3RF ferrous sulfate 325 mg (65 mg iron) tablet 325 mg PO BID Qty: 60 0RF metformin 1,000 mg tablet 1,000 mg PO BIDWMEAL Qty: 60 0RF gabapentin 600 mg tablet 600 mg PO BID ropinirole 0.25 mg tablet 0.25 mg PO HS levothyroxine 100 mcg tablet 100 mcg PO DAILY ranolazine 500 mg tablet extended release 12 hr 500 mg PO BID Creon 12,000-38,000 -60,000 unit capsule,delayed release(DR/EC) 1 cap PO AC polyethylene glycol 3350 [Miralax] 17 gram/dose powder 17 g PO DAILYP PRN (Reason: constiptation) Trelegy Ellipta 100-62.5-25 mcg Blister With Device 1 inh inhalation DAILY Qty: 60 0RF prednisone 20 mg Tablet 40 mg PO DAILY 3 Days Qty: 6 0RF Referrals Follow up/Referrals: David Lion II, MD [Staff Physician, Gastroenterology] - See instructions Juan C Colón MD [Primary Care Provider, Family Practice] - See instructions Clinical Impressions Clinical Impression: Acute diverticulitis Instructions Patient Instructions: DI for Acute Abdominal Pain, DI for Gastrointestinal Bleeding Print Language Print Language: Italian Discharge ED Provider: Ifeanyi Britton General Adult HPI <Ifeanyi Britton MD - Last Filed: 11/03/25 15:40> General Chief complaint: Abdominal Pain Stated complaint: black tarry stool, A-Fib RVR Time Seen by Provider: 11/03/25 12:07 Mode of Arrival: EMS Source of Information: Patient and EMS Description of Symptoms (Recalled from ER Triage Doc. by RN): Pt comes from home today via [facility] for evaluation of rectal bleeding that started 2 days ago. Pt states stool is dark in color, and comes gushing out whenever she stands. Pt reports having n/v. EMS states patient has a hx of a-fib, copd, pancreatitis History of Present Illness HPI narrative: Linda Arteaga is a 65y female with a history of internal hemorrhoids status post banding in October 2024, A-fib on Xarelto and recently taken off Brilinta for GI bleed, COPD on 3 L nasal cannula at baseline who presents to the emergency department for complaints of dark runny stools and chest pain. Patient states that started yesterday, whenever she stands up, she has black runny stools. She also states that she is having midsternal chest pain and upper abdominal pain that radiates to her back and feels like her pancreatic divisum is acting up again. She states that whenever her pancreas acts up, her stool gets dark. Related Data Home Medications ?Medication ?Instructions ?Recorded ?Confirmed rivaroxaban 20 mg tablet (Xarelto) 20 mg PO QPMWITHMEAL 05/12/25 10/15/25 gabapentin 600 mg tablet 600 mg PO BID 05/26/25 10/15/25 ropinirole 0.25 mg tablet 0.25 mg PO HS 05/26/25 10/15/25 levothyroxine 100 mcg tablet 100 mcg PO DAILY 07/25/25 10/15/25 pjdrjl-zfbycbgd-hckzrzm(pork)12,000-38,000-60,000 1 cap PO AC 10/15/25 10/15/25 unit capsule,del rel (Creon) polyethylene glycol 3350 17 17 g PO DAILYP PRN constiptation 10/15/25 10/15/25 gram/dose oral powder (Miralax) ranolazine 500 mg tablet,extended 500 mg PO BID 10/15/25 10/15/25 release,12 hr Previous Rx's ?Medication ?Instructions ?Recorded atorvastatin 40 mg tablet 40 mg PO HS #90 tabs 02/07/25 pantoprazole 40 mg tablet,delayed 40 mg PO HS 30 days #30 tabs 04/06/25 release potassium chloride 10 mEq 10 meq PO DAILY #90 tabs 04/13/25 tablet,extended release duloxetine 60 mg capsule,delayed 60 mg PO BID 90 days #180 caps 04/18/25 release trazodone 100 mg tablet 100 mg PO HS #90 tabs 07/08/25 montelukast 10 mg tablet 10 mg PO HS #30 tabs 07/18/25 magnesium oxide 400 mg (241.3 mg 400 mg PO BID #60 tabs 08/26/25 magnesium) tablet ferrous sulfate 325 mg (65 mg 325 mg PO BID #60 tabs 09/26/25 iron) tablet metformin 1,000 mg tablet 1,000 mg PO BIDWMEAL #60 tabs 09/26/25 quetiapine 50 mg tablet (Seroquel) 50 mg PO DAILY #90 tabs 09/26/25 fluticasone fur. 100 mcg-umeclid 1 inh inhalation DAILY #60 ea 10/18/25 62.5 mcg-vilant 25 mcg inhalat.powder (Trelegy Ellipta) prednisone 20 mg tablet 40 mg (2 x 20 mg) PO DAILY 3 days 10/18/25 #6 tabs alprazolam 1 mg tablet 1 mg PO TID PRN anxiety #90 tabs 10/26/25 dicyclomine 20 mg tablet 20 mg PO TID #90 tabs 10/26/25 fluticasone fur. 200 mcg-umeclid 1 inh inhalation DAILY #60 ea 10/26/25 62.5 mcg-vilant 25 mcg inhalat.powder (Trelegy Ellipta) metoprolol succinate 25 mg 12.5 mg (1/2 x 25 mg) PO DAILY #90 10/26/25 tablet,extended release 24 hr tabs promethazine 25 mg tablet 25 mg PO TID #90 tabs 10/26/25 verapamil 120 mg tablet,extended 120 mg PO BID #60 tabs 10/26/25 release amoxicillin 875 mg-potassium 1 tab PO TID #15 tabs 11/03/25 clavulanate 125 mg tablet Allergies Allergy/AdvReac Type Severity Reaction Status Date / Time codeine (CODEINE) Allergy Intermediate N/V Verified 10/26/25 10:26 ketorolac (KETOROLAC) Allergy Intermediate Hives Verified 10/26/25 10:26 meperidine (MEPERIDINE) Allergy Intermediate Hives Verified 10/26/25 10:26 tramadol (TRAMADOL) Allergy Intermediate Hives Verified 10/26/25 10:26 ciprofloxacin AdvReac Severe Interacts Verified 10/26/25 10:26 with cymbalta [facility] <Ifeanyi Britton MD - Last Filed: 11/03/25 15:40> [facility] Disclaimer: The information contained in this section may have been updated after the patient was seen, as this information can be updated by other users. Medical History FLACO (obstructive sleep apnea) Diarrhea BRBPR (bright red blood per rectum) Hypomagnesemia Atrial fibrillation with rapid ventricular response Myofascial pain on right side Right hip pain Internal hemorrhoid, bleeding Multiple falls Pancreatic divisum Afib Esophageal dilatation Multiple lung nodules on CT Pulmonary emphysema Hypocalcemia Hypokalemia Acidosis, lactic GI bleed Noncompliance with medication regimen Tobacco dependence in remission Pancreas divisum of [place] pancreas Encounter for pre-operative cardiovascular clearance Orthopnea CHF (congestive heart failure) Pancreatitis Nausea vomiting and diarrhea Exhausted vascular access Rib fractures Chronic hypoxemic respiratory failure Coronary artery disease COPD (chronic obstructive pulmonary disease) HLD (hyperlipidemia) Diabetes Anxiety and depression TIA (transient ischemic attack) History of stroke History of multiple cerebrovascular accidents (CVAs) History of class III angina pectoris Typical angina Dyspnea History of pancreatitis History of CVA (cerebrovascular accident) Surgical History History of banding of hemorrhoid History of biliary duct stent placement History of hysterectomy History of cholecystectomy History of coronary artery stent placement Family History Other Family history of cancer Family history of diabetes mellitus Social History Smoking Status: Current every day smoker tobacco type: e-cigarettes years smoked: 45 how long ago did patient quit smokin years ago quit status: quit date established second hand exposure: No alcohol intake: never counseling provided: none substance use type: marijuana and crack/cocaine current occupational status: retired, disabled and other Travel in the last 8 weeks?: None household members: significant other housing: house marital status: number of children: 2 current occupational exposures/hazards: No caffeine: Yes Have you lived/traveled outside [place] in past 30 days?: No Contact w/someone who lives/traveled outside US past 30 days?: No Exposure to someone with infectious disease in past 14 days?: No Do you have a fever (greater than 100.4 F or 38 C)?: No Have you tested positive for COVID-19?: No Exposed to someone with COVID-19 in past 14 days?: No Do you have a sore throat?: No Do you have a cough?: No Do you have any weakness?: No Do you have any diarrhea?: No Are you experiencing any unusual bleeding?: No Do you have any muscle aches/pain?: No Do you have any abdominal pain?: No Are you experiencing loss of taste or smell?: No Other Medical History Have you received the Flu Vaccine for this season: No Have you received the Pneumonia Vaccine: No <Ifeanyi Britton MD - Last Filed: 11/03/25 15:40> ROS Obtained: Yes Systems reviewed as appropriate & no additional complaints except as documented Physical Exam <Ifeanyi Britton MD - Last Filed: 11/03/25 15:40> General General appearance: alert and in no apparent distress Comment: Tearful Head Head exam: atraumatic Eye Eye exam: Present normal appearance ENT ENT exam: Present normal external ear exam Neck Neck exam: Present full ROM Chest Chest inspection: Present symmetric chest wall rise Respiratory Respiratory exam: Present normal lung sounds bilaterally; Absent respiratory distress, wheezes or stridor Cardiovascular Cardiovascular exam: Present regular rate and normal rhythm Abdominal Exam Abdominal exam: Present soft, tenderness (epigastric) and guarding (voluntary); Absent distention or rigidity Extremities Exam Extremities exam: Present normal inspection Back Exam Back exam: Present normal inspection Neurological Exam Neurological exam: Present alert and oriented X3 Psychiatric Psychiatric exam: Present normal affect Skin Skin exam: Present warm and dry Medical Decision Making <Ifeanyi Britton MD - Last Filed: 11/03/25 15:40> Medical Records Screening: Per USPSTF and CDC recommendations, given the prevalence of disease in our region, it is our hospital?s policy to screen for HIV and viral Hepatitis for all patients aged 18 and over and those with ongoing risk factors. [place] Inquiry Pt receiving controlled substance: No Vital Signs: 11/03/25 11:52 11/03/25 12:00 11/03/25 12:03 Temperature 98.5 F Temperature Source Oral Pulse Rate 103 H Pulse Rate [Right] 109 H Respiratory Rate 20 16 Blood Pressure 126/96 H Blood Pressure [Right Arm] 129/84 Blood Pressure Mean [Right Arm] 99 Blood Pressure Source Blood Pressure Source [Right Arm] Automatic Cuff Blood Pressure Position Blood Pressure Position [Right Arm] Sitting 02 Sat by Pulse Oximetry 100 93 L Oxygen Delivery Method Room Air Nasal Cannula Oxygen Flow Rate (LPM) 3 11/03/25 12:30 11/03/25 13:00 11/03/25 13:30 Temperature Temperature Source Pulse Rate 92 H 115 H 81 Pulse Rate [Right] Respiratory Rate 15 11 L 9 L Blood Pressure 108/87 L 117/77 113/79 Blood Pressure [Right Arm] Blood Pressure Mean [Right Arm] Blood Pressure Source Blood Pressure Source [Right Arm] Blood Pressure Position Blood Pressure Position [Right Arm] 02 Sat by Pulse Oximetry 92 L 93 L 94 L Oxygen Delivery Method Oxygen Flow Rate (LPM) 11/03/25 14:00 11/03/25 14:30 11/03/25 16:47 Temperature 98 F Temperature Source Oral Pulse Rate 78 75 64 Pulse Rate [Right] Respiratory Rate 14 9 L 16 Blood Pressure 110/82 126/91 H 133/92 H Blood Pressure [Right Arm] Blood Pressure Mean [Right Arm] Blood Pressure Source Automatic Cuff Blood Pressure Source [Right Arm] Blood Pressure Position Sitting Blood Pressure Position [Right Arm] 02 Sat by Pulse Oximetry 94 L 90 L Oxygen Delivery Method Nasal Cannula Oxygen Flow Rate (LPM) 3 Lab Data Lab Results 11/03/25 12:05: WBC 10.5, RBC 4.16 L, Hgb 12.7, Hct 40.4, MCV 97.1, MCH 30.5, MCHC 31.4 L, RDW 15.7, Plt Count 294, MPV 10.2, Neut % (Auto) 73.4, Lymph % (Auto) 18.9, [place] % (Auto) 5.3, Eos % (Auto) 1.7, Baso % (Auto) 0.4, Neut # (Auto) 7.7, Lymph # (Auto) 2.0, [place] # (Auto) 0.6, Eos # (Auto) 0.2, Baso # (Auto) 0.0, PT 11.8, INR 1.07, APTT 30.9 H, Sodium 142, Potassium 4.1, Chloride 102, Carbon Dioxide 27, Anion Gap 17.1 H, BUN 11, Creatinine 1.10 H, Estimated Creat Clear 69, Estimated GFR 50 L, Est GFR ( Amer) 60, Glucose 127 H, Calcium 8.6, Total Bilirubin 0.5, AST 18, ALT 15, Alkaline Phosphatase 96, Troponin I < 0.01, NT-Pro-B Natriuret Pep 1090 H, Total Protein 7.2, Albumin 4.0, Globulin 3.2, Albumin/Globulin Ratio 1.3, Lipase 77 11/03/25 15:19: Urine Color Yellow, Urine Appearance Clear, Urine pH 6.0, Ur Specific [place] 1.020, Urine Protein Negative, Urine Glucose (UA) Negative, Urine Ketones Negative, Urine Blood Negative, Urine Nitrate Negative, Urine Bilirubin Negative, Urine Urobilinogen 0.2, Ur Leukocyte Esterase 1+ A, Urine RBC Occasional, Urine WBC 10-20, Ur Squamous Epith Cells Occasional, Urine Bacteria 2+, Urine Opiates Screen Negative, Urine Methadone Screen Negative, Ur Barbituates Screen Negative, Ur Phencyclidine Scrn Negative, Ur Amphetamines Screen Negative, U Benzodiazepines Scrn Positive H, Urine Cocaine Screen Positive H, U Marijuana (THC) Screen Positive H 11/03/25 12:05 11/03/25 12:05 Orders (Tests/Meds): ED MEDICATIONS Discontinued Medications Generic Name Dose Route Start Last Admin Trade Name Freq PRN Reason Stop Dose Admin Heparin Sodium (Porcine) 300 unit 11/03/25 16:36 11/03/25 16:47 Heparin Lock Flush 500 Units/5ml Syr IV 11/03/25 16:37 300 units ONCE ONE Administration Hydromorphone HCl 1 mg 11/03/25 12:03 11/03/25 12:28 Hydromorphone 2mg/Ml Syringe IV 11/03/25 12:04 1 mg ONCE ONE Administration Iopamidol 80 ml 11/03/25 12:43 11/03/25 12:47 Iopamidol-370 (76%);100ml Bottle IV 11/03/25 12:44 80 ml ONCE ONE Administration Naloxone HCl 0.4 mg 11/03/25 14:39 11/03/25 14:52 Naloxone 0.4mg/Ml Vial IV 11/03/25 14:40 0.4 mg ONCE ONE Administration Promethazine HCl 12.5 mg 11/03/25 12:03 11/03/25 12:29 Promethazine Hcl 25mg/Ml 1ml Vial IV 11/03/25 12:04 12.5 mg ONCE ONE Administration Sodium Chloride 25 ml 11/03/25 12:03 11/03/25 12:29 Sodium Chloride 0.9% 25ml Bag IV 11/03/25 12:04 25 ml ONCE ONE Administration Sodium Chloride 40 ml 11/03/25 12:43 11/03/25 12:46 0.9 % Sodium Chloride 50 Ml Vial IV 11/03/25 12:44 40 ml ONCE ONE Administration Sodium Chloride 10 ml 11/03/25 12:43 11/03/25 12:46 Sodium Chloride 0.9% 10ml Syr (Rad Only) IV 11/03/25 12:44 10 ml ONCE ONE Administration ORDERS Category Date Time Status CT angio abd/pel - GI Bleed Stat Cat Scan 11/03/25 12:03 Completed CXR --portable [XR chest portable] Stat Exams 11/03/25 12:03 Completed BNP [NT Pro Brain Natriuretic Pep.] Stat Lab 11/03/25 12:05 Completed CBC w/Auto Diff [Complete Blood Count Auto Diff] Stat Lab 11/03/25 12:05 Completed CMP [Comprehensive Metabolic Panel] Stat Lab 11/03/25 12:05 Completed Lipase Stat Lab 11/03/25 12:05 Completed PT INR [Prothrombin Time INR] Stat Lab 11/03/25 12:05 Completed PTT [Activated Partial Thrombo Time] Stat Lab 11/03/25 12:05 Completed Troponin I Stat Lab 11/03/25 12:05 Completed UA [Urinalysis and Microscopic] Stat Lab 11/03/25 15:19 Completed UDS [Drug Screen,Urine] Stat Lab 11/03/25 15:19 Completed Urine Culture Stat Micro 11/03/25 15:19 Received ECG Data Tracing #1: I reviewed this ECG and interpreted as documented below: A-fib with RVR with a ventricular rate of [address] elevation or depression. QTc normal at 425. Medical Decision Narrative: Linda Arteaga is a 65y female with a history of internal hemorrhoids status post banding in October 2024, A-fib on Xarelto and recently taken off Brilinta for GI bleed, COPD on 3 L nasal cannula at baseline who presents to the emergency department for complaints of dark runny stools and chest pain. Patient states that started yesterday, whenever she stands up, she has black runny stools. She also states that she is having midsternal chest pain and upper abdominal pain that radiates to her back and feels like her pancreatic divisum is acting up again. She states that whenever her pancreas acts up, her stool gets dark. On arrival, patient blood pressure 108/87, heart rate 92 and irregular on the monitor. Pulse ox 92 on baseline 3 L nasal cannula. Breathing comfortably on room air. Physical exam, stated above, revealed nontoxic-appearing female in no respiratory distress. She is alert and answering questions appropriately. She has upper abdominal tenderness in the epigastric region without peritonitis. There is voluntary guarding. Cardiopulmonary exam is unremarkable. The remainder of her physical exam is grossly unremarkable. Differential diagnosis includes, but is not limited to: Acute on chronic pancreatitis, diverticulitis, gastritis, ACS, pneumonia, among others. The most morbid conditions were considered and workup was based on these. EKG showed A-fib with RVR with a rate of 102 bpm but no ischemic changes. She spontaneously converted to normal sinus rhythm throughout her stay in the emergency department. Left her study showed no leukocytosis, no anemia, INR normal at 1.07, PTT very mildly elevated at 30.9. Electrolytes within normal limits. Creatinine near baseline of 1.10. BUN normal at 11. Mildly elevated anion gap of 17.1. Glucose normal at 127. Liver enzymes and bilirubin within normal limits. Troponin less than 0.01. NT proBNP is chronically elevated and baseline of 1090. Lipase normal at 77. Urinalysis is pending at this time. Patient did receive 1 mg of Dilaudid and 12.5 mg of Phenergan. Patient had episodes of severe drowsiness and apnea and hypoxia was placed on nonrebreather. Oxygenation had improved. Considered Narcan initially, however oxygenation and breathing had improved after nonrebreather. She had further episode of hypoxia and drowsiness and 0.4 mg of Narcan were given. Patient will wake and have a conversation prior to administration of Narcan and states that she took a Xanax before coming to the emergency department and I do feel that this is contributing significantly to her drowsy state. Will continue to monitor. Chest x-ray interpreted by me personally. No focal consolidation, no pneumothorax, no widened mediastinum, no enlargement of the cardiac silhouette. Unremarkable chest x-ray. See radiology report for details. CT imaging was interpreted by me personally. There is stranding surrounding the distal descending colon consistent with acute diverticulitis. There is contrast in the lumen of the bowel, however this is favored to be related to enteric contrast rather than acute hemorrhage. See radiology report for details. I did discuss patient's case with Dr. Lion with gastroenterology and he agrees that she is appropriate for outpatient follow-up and treatment of her diverticulitis. At this time, patient's care was handed off to the oncoming physician, Dr. Mckeon, pending period of observation and return to her baseline mental status and normal 3 L nasal cannula oxygenation. <Caroline Mckeon, DO - Last Filed: 11/03/25 21:30> Vital Signs: 11/03/25 11:52 11/03/25 12:00 11/03/25 12:03 Temperature 98.5 F Temperature Source Oral Pulse Rate 103 H Pulse Rate [Right] 109 H Respiratory Rate 20 16 Blood Pressure 126/96 H Blood Pressure [Right Arm] 129/84 Blood Pressure Mean [Right Arm] 99 Blood Pressure Source Blood Pressure Source [Right Arm] Automatic Cuff Blood Pressure Position Blood Pressure Position [Right Arm] Sitting 02 Sat by Pulse Oximetry 100 93 L Oxygen Delivery Method Room Air Nasal Cannula Oxygen Flow Rate (LPM) 3 11/03/25 12:30 11/03/25 13:00 11/03/25 13:30 Temperature Temperature Source Pulse Rate 92 H 115 H 81 Pulse Rate [Right] Respiratory Rate 15 11 L 9 L Blood Pressure 108/87 L 117/77 113/79 Blood Pressure [Right Arm] Blood Pressure Mean [Right Arm] Blood Pressure Source Blood Pressure Source [Right Arm] Blood Pressure Position Blood Pressure Position [Right Arm] 02 Sat by Pulse Oximetry 92 L 93 L 94 L Oxygen Delivery Method Oxygen Flow Rate (LPM) 11/03/25 14:00 11/03/25 14:30 11/03/25 16:47 Temperature 98 F Temperature Source Oral Pulse Rate 78 75 64 Pulse Rate [Right] Respiratory Rate 14 9 L 16 Blood Pressure 110/82 126/91 H 133/92 H Blood Pressure [Right Arm] Blood Pressure Mean [Right Arm] Blood Pressure Source Automatic Cuff Blood Pressure Source [Right Arm] Blood Pressure Position Sitting Blood Pressure Position [Right Arm] 02 Sat by Pulse Oximetry 94 L 90 L Oxygen Delivery Method Nasal Cannula Oxygen Flow Rate (LPM) 3 Lab Data Lab Results 11/03/25 12:05: WBC 10.5, RBC 4.16 L, Hgb 12.7, Hct 40.4, MCV 97.1, MCH 30.5, MCHC 31.4 L, RDW 15.7, Plt Count 294, MPV 10.2, Neut % (Auto) 73.4, Lymph % (Auto) 18.9, [place] % (Auto) 5.3, Eos % (Auto) 1.7, Baso % (Auto) 0.4, Neut # (Auto) 7.7, Lymph # (Auto) 2.0, [place] # (Auto) 0.6, Eos # (Auto) 0.2, Baso # (Auto) 0.0, PT 11.8, INR 1.07, APTT 30.9 H, Sodium 142, Potassium 4.1, Chloride 102, Carbon Dioxide 27, Anion Gap 17.1 H, BUN 11, Creatinine 1.10 H, Estimated Creat Clear 69, Estimated GFR 50 L, Est GFR ( Amer) 60, Glucose 127 H, Calcium 8.6, Total Bilirubin 0.5, AST 18, ALT 15, Alkaline Phosphatase 96, Troponin I < 0.01, NT-Pro-B Natriuret Pep 1090 H, Total Protein 7.2, Albumin 4.0, Globulin 3.2, Albumin/Globulin Ratio 1.3, Lipase 77 11/03/25 15:19: Urine Color Yellow, Urine Appearance Clear, Urine pH 6.0, Ur Specific [place] 1.020, Urine Protein Negative, Urine Glucose (UA) Negative, Urine Ketones Negative, Urine Blood Negative, Urine Nitrate Negative, Urine Bilirubin Negative, Urine Urobilinogen 0.2, Ur Leukocyte Esterase 1+ A, Urine RBC Occasional, Urine WBC 10-20, Ur Squamous Epith Cells Occasional, Urine Bacteria 2+, Urine Opiates Screen Negative, Urine Methadone Screen Negative, Ur Barbituates Screen Negative, Ur Phencyclidine Scrn Negative, Ur Amphetamines Screen Negative, U Benzodiazepines Scrn Positive H, Urine Cocaine Screen Positive H, U Marijuana (THC) Screen Positive H Orders (Tests/Meds): ED MEDICATIONS Discontinued Medications Generic Name Dose Route Start Last Admin Trade Name Freq PRN Reason Stop Dose Admin Heparin Sodium (Porcine) 300 unit 11/03/25 16:36 11/03/25 16:47 Heparin Lock Flush 500 Units/5ml Syr IV 11/03/25 16:37 300 units ONCE ONE Administration Hydromorphone HCl 1 mg 11/03/25 12:03 11/03/25 12:28 Hydromorphone 2mg/Ml Syringe IV 11/03/25 12:04 1 mg ONCE ONE Administration Iopamidol 80 ml 11/03/25 12:43 11/03/25 12:47 Iopamidol-370 (76%);100ml Bottle IV 11/03/25 12:44 80 ml ONCE ONE Administration Naloxone HCl 0.4 mg 11/03/25 14:39 11/03/25 14:52 Naloxone 0.4mg/Ml Vial IV 11/03/25 14:40 0.4 mg ONCE ONE Administration Promethazine HCl 12.5 mg 11/03/25 12:03 11/03/25 12:29 Promethazine Hcl 25mg/Ml 1ml Vial IV 11/03/25 12:04 12.5 mg ONCE ONE Administration Sodium Chloride 25 ml 11/03/25 12:03 11/03/25 12:29 Sodium Chloride 0.9% 25ml Bag IV 11/03/25 12:04 25 ml ONCE ONE Administration Sodium Chloride 40 ml 11/03/25 12:43 11/03/25 12:46 0.9 % Sodium Chloride 50 Ml Vial IV 11/03/25 12:44 40 ml ONCE ONE Administration Sodium Chloride 10 ml 11/03/25 12:43 11/03/25 12:46 Sodium Chloride 0.9% 10ml Syr (Rad Only) IV 11/03/25 12:44 10 ml ONCE ONE Administration ORDERS Category Date Time Status CT angio abd/pel - GI Bleed Stat Cat Scan 11/03/25 12:03 Completed CXR --portable [XR chest portable] Stat Exams 11/03/25 12:03 Completed BNP [NT Pro Brain Natriuretic Pep.] Stat Lab 11/03/25 12:05 Completed CBC w/Auto Diff [Complete Blood Count Auto Diff] Stat Lab 11/03/25 12:05 Completed CMP [Comprehensive Metabolic Panel] Stat Lab 11/03/25 12:05 Completed Lipase Stat Lab 11/03/25 12:05 Completed PT INR [Prothrombin Time INR] Stat Lab 11/03/25 12:05 Completed PTT [Activated Partial Thrombo Time] Stat Lab 11/03/25 12:05 Completed Troponin I Stat Lab 11/03/25 12:05 Completed UA [Urinalysis and Microscopic] Stat Lab 11/03/25 15:19 Completed UDS [Drug Screen,Urine] Stat Lab 11/03/25 15:19 Completed Urine Culture Stat Micro 11/03/25 15:19 Received Medical Decision Narrative: Linda Arteaga is a 65y female with a history of internal hemorrhoids status post banding in October 2024, A-fib on Xarelto and recently taken off Brilinta for GI bleed, COPD on 3 L nasal cannula at baseline who presents to the emergency department for complaints of dark runny stools and chest pain. Patient states that started yesterday, whenever she stands up, she has black runny stools. She also states that she is having midsternal chest pain and upper abdominal pain that radiates to her back and feels like her pancreatic divisum is acting up again. She states that whenever her pancreas acts up, her stool gets dark. On arrival, patient blood pressure 108/87, heart rate 92 and irregular on the monitor. Pulse ox 92 on baseline 3 L nasal cannula. Breathing comfortably on room air. Physical exam, stated above, revealed nontoxic-appearing female in no respiratory distress. She is alert and answering questions appropriately. She has upper abdominal tenderness in the epigastric region without peritonitis. There is voluntary guarding. Cardiopulmonary exam is unremarkable. The remainder of her physical exam is grossly unremarkable. Differential diagnosis includes, but is not limited to: Acute on chronic pancreatitis, diverticulitis, gastritis, ACS, pneumonia, among others. The most morbid conditions were considered and workup was based on these. EKG showed A-fib with RVR with a rate of 102 bpm but no ischemic changes. She spontaneously converted to normal sinus rhythm throughout her stay in the emergency department. Left her study showed no leukocytosis, no anemia, INR normal at 1.07, PTT very mildly elevated at 30.9. Electrolytes within normal limits. Creatinine near baseline of 1.10. BUN normal at 11. Mildly elevated anion gap of 17.1. Glucose normal at 127. Liver enzymes and bilirubin within normal limits. Troponin less than 0.01. NT proBNP is chronically elevated and baseline of 1090. Lipase normal at 77. Urinalysis is pending at this time. Patient did receive 1 mg of Dilaudid and 12.5 mg of Phenergan. Patient had episodes of severe drowsiness and apnea and hypoxia was placed on nonrebreather. Oxygenation had improved. Considered Narcan initially, however oxygenation and breathing had improved after nonrebreather. She had further episode of hypoxia and drowsiness and 0.4 mg of Narcan were given. Patient will wake and have a conversation prior to administration of Narcan and states that she took a Xanax before coming to the emergency department and I do feel that this is contributing significantly to her drowsy state. Will continue to monitor. Chest x-ray interpreted by me personally. No focal consolidation, no pneumothorax, no widened mediastinum, no enlargement of the cardiac silhouette. Unremarkable chest x-ray. See radiology report for details. CT imaging was interpreted by me personally. There is stranding surrounding the distal descending colon consistent with acute diverticulitis. There is contrast in the lumen of the bowel, however this is favored to be related to enteric contrast rather than acute hemorrhage. See radiology report for details. I did discuss patient's case with Dr. Lion with gastroenterology and he agrees that she is appropriate for outpatient follow-up and treatment of her diverticulitis. At this time, patient's care was handed off to the oncoming physician, Dr. Mckeon, pending period of observation and return to her baseline mental status and normal 3 L nasal cannula oxygenation. DO Linda: On my assessment, the patient is saturating well on baseline oxygen of 3 L nasal cannula. She is awake, alert, and oriented x 4. She has been tolerant of oral intake and ambulatory here in the emergency department. She reports significant improvement in her abdominal pain. She feels comfortable with discharge home. I discussed plan of treatment with antibiotics and outpatient GI follow-up. I encouraged her to return if her symptoms worsen or she develops fever. I also discussed a soft diet for the next 48 hours, and she may progress as tolerated at home. Critical Care <Ifeanyi Britton MD - Last Filed: 11/03/25 15:40> Critical Care Time Critical Care Time: Yes Attestation: On 11/03/25, the high probability of a clinically significant, sudden or life threatening deterioration of the following system(s) required my full and direct attention, intervention and personal management. The time I documented below is in addition to time spent performing reported procedures but includes the following listed in this critical care notation. Total Time Total Critical Care Time: 35
[2025-11-03 12:14] LABS: Hematocrit 40.4 % (37.0-47.0); Hemoglobin 12.7 g/dL (12.2-16.2); Immature Granulocytes % 0.3 %; Mean Corpuscular HGB Conc 31.4 g/dL (31.8-35.4); Mean Corpuscular Hemoglobin 30.5 pg (27.0-31.2); Mean Corpuscular Volume 97.1 fl (81-99); Nucleated Red Blood Cells % 0 %; Platelet Count 294 K/mm3 (142-424); Red Blood Count 4.16 M/mm3 (4.20-5.40); Red Cell Distribution Width-SD 56.7 fL; White Blood Count 10.5 K/mm3 (4.8-10.8)
--- OUTSIDE RECORDS SUMMARY | 2025-11-03 12:16 | XMS_ITS | Encounter Summary ---
[facility] Address [address] [place] [address] Care Team Providers Care Vertical Lathe Operator Name Role Phone Juan C Colón MD Primary Care Provider [phone] Reason for Visit * Reason Onset Date Comments [facility] 10/04/2025 Encounter Details Date Type Department Care Team (Late st Contact Info) Description 10/04/2025 Telephone [facility] GA[facility] [address] [place] [address] Rubin Lozoya MD [address] [place] [address] [facility] Social History Tobacco Use Types Packs/Day Years [...] care, and heating? Not very hard 10/02/2025 [facility] - Occupational Stress [...] things needed for daily living? No 10/02/2025 [facility] Utilities Answer Date Recorded In the past 12 months has [facility] Codefied, gas, oil, or water [employer] threatened to shut off services in your [...] GED or equivalent No 10/02/2025 Preferred Language Chinese 10/02/2025 PHQ-2 Answer Date Recorded Patient Health Questionnaire-2 Score 0 10/02/2025 Comments No Sex and Gender Information Value Date Recorded Sex Assigned at Not on file Legal Sex Female 10:08 AM EDT Gender Identity Not on file Sexual Orientation Not on file documented as of this encounter Miscellaneous Notes * Telephone Encounter - Ofelia Ham MA - 10/10/2025 2:23 PM EST Pt is scheduled for EGD on 11-30-2025 * Telephone Encounter - Shannon Frias - 10/04/2025 10:29 AM EST Provider: DEVORA Caller: Linda Arteaga Relationship to Patient: Self Reason for Call: PATIENT IS CURRENTLY IN THE HOSPITAL AND IS WANTING TO KNOW IF SHE HAS TO HAVE HERESOPHAGUS STRETCHED, IF DR. LOZOYA CAN DO IT WHILE SHE IS THERE. SHE HAS BEEN IN THE HOSPITAL SINCE FRIDAY, [facility] ROOM [address]. PATIENT STATES THAT SHE HAD SWALLOW STUDY DONE YESTERDAY. PATIENT WENT TO THE HOSPITAL FOR RECTAL BLEEDING. SHE ALSO HAVE PNA. SHE IS CHOKING WHEN SHE IT SWALLOWING MEAT. 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
--- OUTSIDE RECORDS SUMMARY | 2025-11-03 12:16 | XMS_ITS | Clinical Summary ---
Author Organization [facility] Address [address] [place] [address] Phone Care Team Providers Care Senior Information Security Consultant Name Role Phone Sami Rasheed MD Unavailable [ ] Conditions or Problems Problem Name Problem Code Onset Date Status Entry Date Provider Comment Standard Description Annotate Chronic mastoiditis, bilateral 95209172 (SNOMED CT) Active Courtney Gordon Chronic mastoiditis Acute mastoiditis, bilateral, without complications H70.003 (ICD-10-CM ) Active Courtney Gordon Acute mastoiditis without complications , bilateral Benign Essential Hypertension 10471957 (SNOMED CT) Active Courtney Gordon Benign hypertension Medications Medication Instructions Start Date Stop Date Generic Name ND Provider MEDROL 4 MG TBPK tapering METHYLPREDNISOLONE [id number] Jorge Mckeon ACIDOPHILUS CAPS LACTOBACILLUS [id number] Jorge Mckeon CEFDINIR 300 MG CAPS twice daily CEFDINIR [id number] Jorge Mckeon PERCOCET 5-325 MG TABS 1-2 tablets every 4 hours as needed OXYCODONE-ACETAMINOP HEN [id number] Jorge Mckeon Medications Administered No information available. [...]
[2025-11-03 12:17] LABS: Chloride 102 mmol/L (98-107)
--- OUTSIDE RECORDS SUMMARY | 2025-11-03 12:17 | XMS_ITS | Clinical Summary ---
[facility] Address [address] [place] [address] Care Team Providers Care Boiler Riveter Name Role Phone Juan C Colón MD Primary Care Provider [phone] Allergies Active Allergy Reactions Criticality Noted Date Comments Ciprofloxacin GI Intolerance Low 07/24/2020 Can't take with cymbalta Codeine Nausea And Vomiting High 05/09/2010 Meperidine Hives,GI Intolerance Low 05/11/2014 Ketorolac Tromethamine [...] Take 1 tablet by mouth Every Night. 05/11/20 14 Active atorvastatin (LIPITOR) 40 MG tablet Take 1 tablet by mouth Every Night. 30 tablet 08/04/20 17 Active albuterol (PROVENTIL) (2.5 MG/3ML) 0.083% nebulizer solution Take 2.5 mg by nebulization Every 6 (Six) Hours As Needed for Wheezing. Active albuterol sulfate HFA 108 (90 Base) MCG/ACT inhaler Inhale 2 puffs Every 4 (Four) Hours As Needed for Wheezing. Active acetaminophen (TYLENOL) 325 MG tablet Take 2 tablets by mouth Every 6 (Six) Hours As Needed for Mild Pain . 08/02/20 Active traZODone (DESYREL) 100 MG tablet Take 1 tablet by mouth Every Night. 30 tablet 08/02/20 Active docusate sodium 100 MG capsuleIndication s:Constipation Take 100 mg by mouth 2 (Two) Times a Day As Needed for Constipation. Indications: Constipation 08/02/20 Active polyethylene glycol (MIRALAX) 17 g packet Take 17 g by mouth Daily. 08/03/20 Active gabapentin (NEURONTIN) 600 MG tablet Take 1 tablet by mouth 2 (Two) Times a Day. 04/07/20 Active QUEtiapine (SEROquel) 50 MG tablet Take 1 tablet by mouth Every Night. 02/21/20 Active Xarelto 20 MG tablet Take 1 tablet by mouth Daily With Dinner. Pt to hold (1) week prior to procedure per Dr. Kearney 04/08/20 Active rOPINIRole (REQUIP) 0.25 MG tablet Take 1 tablet by mouth Every Night. 04/07/20 Active levothyroxine (SYNTHROID, LEVOTHROID) 100 MCG tablet Take 1 tablet by mouth Every Morning. 30 tablet 3 05/07/20 Active potassium chloride 10 MEQ CR tablet Take 1 tablet by mouth Daily. 11/28/20 Active ferrous sulfate 324 (65 Fe) MG tablet delayed-release EC tablet Take 1 tablet by mouth 2 (Two) Times a Day With Meals. Active furosemide (LASIX) 20 MG tablet Take 1 tablet by mouth Daily. Active metFORMIN (GLUCOPHAGE) 1000 MG tablet Take 1 tablet by mouth 2 (Two) Times a Day With Meals. Active magnesium oxide (MAG-OX) 400 MG tablet Take 1 tablet by mouth 2 (Two) Times a Day. Active verapamil SR (CALAN-SR) 120 MG CR tablet Take 1 tablet by mouth 2 (Two) Times a Day. Active ranolazine (RANEXA) 500 MG 12 hr tablet Take 1 tablet by mouth 2 (Two) Times a Day. Active lisinopril (PRINIVIL,ZESTRIL ) 5 MG tablet Take 1 tablet by mouth Daily. 10/05/20 Active metoprolol succinate XL (TOPROL-XL) 25 MG 24 hr tablet Take 0.5 tablets by mouth Daily. 15 tablet 10/06/20 25 Active aspirin 81 MG EC tablet Take 1 tablet by mouth Daily. 30 tablet 10/06/20 25 Active nicotine (NICODERM CQ) 14 MG/24HR patch Place 1 patch on the skin as directed by provider Daily. 30 patch 10/06/20 25 Active pancrelipase, Nup-Ybod-Olwi, (CREON) 52815-29006 units capsule delayed-release particles capsule Take 1 capsule by mouth 3 (Three) Times a Day With Meals. 90 capsule 10/05/20 25 Active thiamine (VITAMIN B1) 100 MG tablet Take 1 tablet by mouth Daily. 30 tablet 10/05/20 25 Active pantoprazole (PROTONIX) 40 MG EC tablet Take 1 tablet by mouth 2 (Two) Times a Day. 60 tablet 10/05/20 25 Active dicyclomine (BENTYL) 10 MG capsule Take 1 capsule by mouth 3 (Three) Times a Day As Needed (abdominal cramping). 15 capsule 10/19/20 25 Active ondansetron ODT (ZOFRAN-ODT) 4 MG disintegrating tablet Take 1 tablet by mouth 4 (Four) Times a Day As Needed for Nausea or Vomiting. 15 tablet 10/19/20 25 Active metoprolol succinate XL (TOPROL-XL) 25 MG 24 hr tablet Take 1 tablet by mouth Daily. Discontinu ed(Stop Taking at Discharge) omeprazole (priLOSEC) 40 MG capsule Take 1 capsule by mouth Daily. Take a half hour before breakfast and dinner 30 capsule 11 10/15/20 24 Discontinu ed(Stop Taking at Discharge) pantoprazole (PROTONIX) 40 MG EC tablet Take 1 tablet by mouth Daily. Discontinu ed(Stop Taking at Discharge) predniSONE (DELTASONE) 20 MG tablet Take 1 tablet by mouth Daily With Breakfast for 1 dose. 1 tablet 10/06/20 25 Active Problems Problem Noted Date Diagnosed Date COPD exacerbation 10/01/2025 Respiratory failure 10/01/2025 Special screening for malignant neoplasms, colon 12/17/2023 [...] Date Intractable abdominal pain 07/31/2020 0 08/02/2020 Encounters Date Type Department Care Team Description 10/19/2025 2:14 PM EST - 10/19/2025 5:38 PM EST Emergency [facility] [address] [place] [address] Tim Vallejo DO Acute on chronic heart failure, unspecified heart failure type (Primary Dx); Dyspnea and respiratory abnormalities; Chronic pancreatitis, unspecified pancreatitis type Discharge Disposition: Home or Self Care 10/19/2025 Travel 10/04/2025 Telephone [facility] [address] [facility] [address] [place] [address] Rubin Kearney MD [facility] 09/30/2025 9:51 PM EDT - 10/05/2025 6:18 PM EST Hospital Encounter [facility] [address]G [address] [place] [address] Tim Anthony MD Sanchez, MD Rocio Santiago Ann, MD Emsalem, Rabie, MD Gilbert, Trudy Hebert, DO Pneumonia of both lower lobes due to infectious organism (Primary Dx); Acute on chronic hypoxic respiratory failure; Epigastric abdominal pain; Dysphagia, unspecified type; Acute on chronic respiratory failure with hypoxemia; Chronic obstructive pulmonary disease with acute exacerbation; Esophageal dysphagia; Essential hypertension; Morbidly obese; Paroxysmal atrial fibrillation; Atrial fibrillation with rapid ventricular response; 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 Not very hard 10/02/2025 [facility] - Occupational Stress [...] things needed for daily living? No 10/02/2025 [facility] Utilities Answer Date Recorded In the past 12 months has [employer] electric, gas, oil, or water company threatened [...] GED or equivalent No 10/02/2025 Preferred Language Nigerien 10/02/2025 PHQ-2 Answer Date Recorded Patient Health [...] Mass Index 33.82 10/19/2025 4:34 PM EST Plan of Treatment Health Maintenance Due Date Last Done Comments DXA SCAN 1960 DIABETIC EYE EXAM 1970 DIABETIC FOOT [...] 07/24/2020, 06/05/2018, Additional history exists COVID-19 Vaccine (3 - 2023-2 5 season) 2025 10/21/2024, 10/09/2021, 02/02/2021 COLONOSCOPY 04/05/2034 04/05/2024, 12/25/2021 COLORECTAL CANCER SCREENING 04/05/2034 HEPATITIS C SCREENING Completed 04/11/2022 INFLUENZA VACCINE Completed 10/05/2025, , 08/30/2022, Additional history exists Medical Devices Implanted Type Area Edge Sawyer Device Identifier Shelf Expiration Date Model / Serial / Lot Pain Pump Pain Pump Procedures Procedure Name Priority Date/Time Associated Diagnosis Comments ECG 12-LEAD STAT 10/19/2025 4:[address] CHEST WO CONTRAST DIAGNOSTIC STAT 10/19/2025 4:[address] ABDOMEN PELVIS WO CONTRAST STAT 10/19/2025 4:07 PM EST LIGHT BLUE TOP STAT 10/19/2025 2:51 PM EST JUÁREZ TOP STAT 10/19/2025 2:51 PM EST GOLD TOP - SST STAT 10/19/2025 2:51 PM EST LAVENDER TOP STAT 10/19/2025 2:51 PM EST DK GREEN TOP STAT 10/19/2025 2:51 PM EST CBC AND DIFFERENTIAL STAT 10/19/2025 2:51 PM EST CBC WITH AUTO DIFFERENTIAL STAT 10/19/2025 2:51 PM EST LIPASE STAT 10/19/2025 2:51 PM EST TROPONIN STAT 10/19/2025 2:51 PM EST B-TYPE NATRIURETIC PEPTIDE STAT 10/19/2025 2:51 PM EST COMPREHENSIVE METABOLIC PANEL STAT 10/19/2025 2:51 PM EST RAINBOW DRAW STAT 10/19/2025 2:51 PM EST XR CHEST 1 VW STAT 10/19/2025 2:50 PM EST ECG 12-LEAD STAT 10/19/2025 2:30 PM EST POTASSIUM STAT 10/05/2025 5:17 PM EST POCT [...] SPEECH SINGLE-CONTRAST Routine 10/03/2025 10:44 AM EST MAGNESIUM Routine 10/03/2025 7:25 AM EST BASIC METABOLIC PANEL Routine 10/03/2025 7:25 AM EST HEMOGLOBIN AND HEMATOCRIT, BLOOD Routine 10/03/2025 7:25 AM EST POCT GLUCOSE FINGERSTICK Routine 10/03/2025 7:05 AM EST POCT GLUCOSE FINGERSTICK Routine 10/02/2025 8:18 PM EST POCT GLUCOSE FINGERSTICK Routine 10/02/2025 4:26 PM EST ECG 12-LEAD Routine 10/02/2025 12:36 PM EST POCT GLUCOSE FINGERSTICK Routine 10/02/2025 11:17 AM EST POCT GLUCOSE FINGERSTICK Routine 10/02/2025 7:21 AM EST CBC AND DIFFERENTIAL Urgent 10/02/2025 4:16 AM EST HEMOGLOBIN AND HEMATOCRIT, BLOOD Timed 10/02/2025 4:16 AM EST CBC WITH AUTO DIFFERENTIAL Urgent 10/02/2025 4:16 AM EST C-REACTIVE PROTEIN Routine 10/02/2025 4: 16 AM EST PHOSPHORUS Routine 10/02/2025 4:16 AM EST MAGNESIUM Routine 10/02/2025 4:16 AM EST BASIC METABOLIC PANEL Routine 10/02/2025 4:16 AM EST HEPARIN ANTI XA Timed 10/02/2025 4:16 AM EST POCT GLUCOSE FINGERSTICK Routine 10/01/2025 10:36 PM EDT APTT STAT 10/01/2025 7:37 PM EDT PROTIME-INR STAT 10/01/2025 7:37 PM EDT HEPARIN ANTI XA STAT 10/01/2025 7:37 PM EDT POCT GLUCOSE FINGERSTICK Routine 10/01/2025 5:44 PM EDT CBC AND DIFFERENTIAL STAT 10/01/2025 4:19 PM EDT CBC WITH AUTO DIFFERENTIAL STAT 10/01/2025 4:19 PM EDT HEMOGLOBIN AND HEMATOCRIT, BLOOD Timed 10/01/2025 4:19 PM EDT POTASSIUM Timed 10/01/2025 4:19 PM EDT ECG 12-LEAD Routine 10/01/2025 12:00 PM EDT POCT GLUCOSE FINGERSTICK Routine 10/01/2025 11:41 AM EDT MRSA DNA PROBE Urgent 10/01/2025 10:36 AM EDT BLOOD GAS, ARTERIAL W/CO-OXIMETRY Routine 10/01/2025 9:07 AM EDT URINALYSIS, MICROSCOPIC ONLY STAT 10/01/2025 6:39 AM EDT FENTANYL, URINE Routine 10/01/2025 6:39 AM EDT URINE DRUG SCREEN Add-On 10/01/2025 6:3 9 AM EDT URINALYSIS W/ MICROSCOPIC IF INDICATED (NO CULTURE) STAT 10/01/2025 6:39 AM EDT STREP PNEUMO AG, URINE OR CSF Add-On 10/01/2025 6:39 AM EDT LEGIONELLA ANTIGEN, URINE Add-On 10/01/2025 6:39 AM EDT XR CHEST 1 VW STAT 10/01/2025 6:18 AM EDT C-REACTIVE PROTEIN Add-On 10/01/2025 6: 14 AM EDT PROBNP Add-On 10/01/2025 6:14 AM EDT PHOSPHORUS Add-On 10/01/2025 6:14 AM EDT SCAN SLIDE Urgent 10/01/2025 6:14 AM EDT MAGNESIUM Urgent 10/01/2025 6:14 AM EDT BASIC METABOLIC PANEL Urgent 10/01/2025 6:14 AM EDT CBC WITH AUTO DIFFERENTIAL Urgent 10/01/2025 6:14 AM EDT LACTIC ACID, PLASMA STAT 10/01/2025 6 :13 AM EDT POCT GLUCOSE FINGERSTICK Routine 10/01/2025 5:58 AM EDT BLOOD GAS, ARTERIAL W/CO-OXIMETRY Routine 10/01/2025 4:49 AM EDT RESPIRATORY PANEL PCR W/ COVID-19 (SARS-COV-2), ANALYSIS MANAGER SWAB IN UTM/VTP, 2 HR TAT STAT 10/01/2025 12:07 AM EDT HIGH SENSITIVITIY TROPONIN T 1HR STAT 09/30/2025 11:[address] ABDOMEN PELVIS W CONTRAST STAT 09/30/2025 11:[address] ANGIOGRAM CHEST PULMONARY EMBOLISM STAT 09/30/2025 11:48 PM EDT XR CHEST 1 VW STAT 09/30/2025 10:22 PM EDT SCANNED - TELEMETRY 09/30/2025 1 0:21 PM EDT ECG 12-LEAD STAT 09/30/2025 10:15 PM EDT BLOOD GAS, VENOUS W/CO-OXIMETRY STAT 09/30/2025 10:11 PM EDT CBC AND DIFFERENTIAL STAT 09/30/2025 10:03 PM EDT B-TYPE NATRIURETIC PEPTIDE STAT 09/30/2025 10:03 PM EDT MAGNESIUM STAT 09/30/2025 10:03 PM EDT CBC WITH AUTO DIFFERENTIAL STAT 09/30/2025 10:03 PM EDT TROPONIN STAT 09/30/2025 10:03 PM EDT LIPASE STAT 09/30/2025 10:03 PM EDT COMPREHENSIVE METABOLIC PANEL STAT 09/30/2025 10:03 PM EDT SCANNED - COLONOSCOPY 04/05/2024 POCT OCCULT BLOOD STOOL STAT 07/29/2020 7:04 PM EDT HEMOGLOBIN A1C Routine 08/01/2017 5:10 AM EDT from Last 3 Months or Most Recently Relevant to Health Maintenance Results * ECG 12 Lead Dyspnea (10/19/2025 4:15 PM EST) Only the most recent of5 resultswithin the time period is included. QT Interval 408 ms BH ECG QTC Interval 473 ms ECG 10/19/2025 [...] By: ED Confirmed By: Alan Quintana us Tim Vallejo DO ECG ORDERABLES Final Re sult ECG * CT Chest Without Contrast Diagnostic (10/19/2025 4:07 PM EST) Anatomical Region Laterality Modality Chest N/A Computed Tomogra phy 10/19/2025 4:14 PM EST Impressions 10/19/2025 4:21 PM EST Impression: 1.No acute process identified. Electronically Signed: Gerardo Larkin MD 10/19/2025 4:21 PM EST Workstation ID: [id number] Narrative 10/19/2025 4:[address] CHEST [...] MD 10/19/2025 4:21 PM EST Workstation ID: [id number] Tim Vallejo DO IMG CT ORDERABLES Final Result * CT Abdomen Pelvis Without Contrast (10/19/2025 4:07 PM EST) Anatomical Region Laterality Modality Abdomen, Pelvis N/A Computed Tomogra phy 10/19/2025 4:14 PM EST Impressions 10/19/2025 4:21 PM EST Impression: 1.No acute process identified. Electronically Signed: Gerardo Larkin MD 10/19/2025 4:21 PM EST Workstation ID: [id number] Narrative 10/19/2025 4:[address] CHEST [...] MD 10/19/2025 4:21 PM EST Workstation ID: [id number] Tim Vallejo DO G CT ORDERABLES Final Result * Juárez Top (10/19/2025 2:51 PM EST) Extra Tube Hold for add-ons. 10/19/2025 3:15 PM EST [facility] Comment:Auto resulted. Blood Venipuncture / Unknown 10/19/2025 2:51 PM EST 10/19/2025 3:01 PM EST Tim Vallejo LAB BLOOD ORDER ONLY Fin al Result Performing Organization Address [facility] de Phone Number [facility]
[address] [place] [address], * Gold Top - SST (10/19/2025 2:51 PM EST) Extra Tube Hold for add-ons. 10/19/2025 3:15 PM EST [facility] Comment:Auto resulted. Blood Venipuncture / Unknown 10/19/2025 2:51 PM EST 10/19/2025 3:01 PM EST Tim Vallejo LAB BLOOD ORDER ONLY Fin al Result Performing Organization Address [facility] de Phone Number [facility]
[address] [place] [address], * Green Top (Gel) (10/19/2025 2:51 PM EST) Extra Tube Hold for add-ons. 10/19/2025 3:00 PM EST [facility] Comment:Auto resulted. Blood Venipuncture / Unknown 10/19/2025 2:51 PM EST 10/19/2025 3:00 PM EST Tim Vallejo LAB BLOOD ORDER ONLY Fin al Result Performing Organization Address [facility] de Phone Number [facility]
[address] [place] [address], * (ABNORMAL) CBC Auto Differential (10/19/2025 2:51 PM EST) Only the most recent of5 resultswithin the time period is included. WBC 12.20(H) 3.40 - 10.80 10*3/mm3 10/19/2025 3:06 PM EST [facility] RBC 4.01 3.77 - 5.28 10*6/mm3 10/19/2025 3:06 PM [facility] Hemoglobin 12.2 12.0 - 15.9 g/dL 10/19/2025 3:06 PM [facility] Hematocrit 38.7 34.0 - 46.6 % 10/19/2025 3:06 PM [facility] MCV 96.5 79.0 - 97.0 fL 10/19/2025 3:06 PM [facility] MCH 30.4 26.6 - 33.0 pg 10/19/2025 3:06 PM [facility] MCHC 31.5 31.5 - 35.7 g/dL 10/19/2025 3:06 PM [facility] RDW 15.3 12.3 - 15.4 % 10/19/2025 3:06 PM [facility] RDW-SD 54.1(H) 37.0 - 54.0 fl 10/19/2025 3:06 PM [facility] MPV 10.3 6.0 - 12.0 fL 10/19/2025 3:06 PM [facility] Platelets 310 140 - 450 10*3/mm3 10/19/2025 3:06 PM [facility] Neutrophil % 64.6 42.7 - 76.0 % 10/19/2025 3:06 PM [facility] Lymphocyte % 27.2 19.6 - 45.3 % 10/19/2025 3:06 PM [facility] Monocyte % 4.9(L) 5.0 - 12.0 % 10/19/2025 3:06 PM [facility] Eosinophil % 2.7 0.3 - 6.2 % 10/19/2025 3:06 PM [facility] Basophil % 0.2 0.0 - 1.5 % 10/19/2025 3:06 PM [facility] Immature Grans % 0.4 0.0 - 0.5 % 10/19/2025 3:06 PM [facility] Neutrophils, Absolute 7.87(H) 1.70 - 7.00 10*3/mm3 10/19/2025 3:06 PM EST [facility] Lymphocytes, Absolute 3.32(H) 0.70 - 3.10 10*3/mm3 10/19/2025 3:06 PM EST [facility] Monocytes, Absolute 0.60 0.10 - 0.90 10*3/mm3 10/19/2025 3:06 PM EST [facility] Eosinophils, Absolute 0.33 0.00 - 0.40 10*3/mm3 10/19/2025 3:06 PM [facility] Basophils, Absolute 0.03 0.00 - 0.20 10*3/mm3 10/19/2025 3:06 PM EST [facility] Immature Grans, Absolute 0.05 0.00 - 0.05 10*3/mm3 10/19/2025 3:06 PM [facility] nRBC 0.0 0.0 - 0.2 /100 WBC 10/19/2025 3:06 PM EST [facility] Blood Venipuncture / Unknown 10/19/2025 2:51 PM EST 10/19/2025 3:01 PM EST [facility] LAB BLOOD ORDERABLES Fin al Result [facility]
[address] [place] [address], * Lavender Top (10/19/2025 2:51 PM EST) Extra Tube hold for add-on 10/19/2025 3:15 PM EST [facility] Comment:Auto resulted Blood Venipuncture / Unknown 10/19/2025 2:51 PM EST 10/19/2025 3:01 PM EST Tim Vallejo LAB BLOOD ORDER ONLY Fin al Result [facility]
[address] [place] [address], * Light Blue Top (10/19/2025 2:51 PM EST) Pathologist [facility] Extra Tube Hold for add-ons. 10/19/2025 3:15 PM EST [facility] Comment:Auto resulted Blood Venipuncture / Unknown 10/19/2025 2:51 PM EST 10/19/2025 3:01 PM EST us Tim Vallejo DO LAB BLOOD ORDER ONLY Fin al Result Performing Organization Address [facility] de Phone Number [facility]
[address] [place] [address], * High Sensitivity Troponin T (10/19/2025 2:51 PM EST) Only the most recent of2 resultswithin the time period is included. [facility] HS Troponin T 12 <14 ng/L 10/19/2025 3:29 PM EST [facility] Blood Venipuncture / Unknown 10/19/2025 2:51 PM EST 10/19/2025 3:00 PM EST Narrative [facility] - 10/19/2025 3:29 PM EST High [...] due to an underlying chronic condition. us Tim Vallejo DO LAB BLOOD ORDERABLES Fin al Result Performing Organization Address City/[facility]/ZIP Co de Phone Number [facility]
[address] [place] [address], * (ABNORMAL) BNP (10/19/2025 2:51 PM EST) Only the most recent of2 resultswithin the time period is included. proBNP 2,235.0(H) 0.0 - 900.0 pg/mL 10/19/2025 3:29 PM EST [facility] Blood Venipuncture / Unknown 10/19/2025 2:51 PM EST 10/19/2025 3:00 PM EST Narrative [facility] - 10/19/2025 3:29 PM EST This [...] >75 Positive >1800 Juárez 300-1800 Negative <300 Tim Vallejo [employer] LAB BLOOD ORDERABLES Fin al Result Performing Organization Address City/[facility]/ZIP Co de Phone Number [facility]
[address] [place] [address], [place] [phone] * Lipase (10/19/2025 2:51 PM EST) Only the most recent of2 resultswithin the time period is included. Lipase 22 13 - 60 U/L 10/19/2025 3:29 PM EST [facility] Blood Venipuncture / Unknown 10/19/2025 2:51 PM EST 10/19/2025 3:00 PM EST Tim Vallejo [facility] LAB BLOOD ORDERABLES Fin al Result Performing Organization Address City/[facility]/ZIP Co de Phone Number [facility]
[address] [place] [address], [place] [phone] * (ABNORMAL) Comprehensive Metabolic Panel (10/19/2025 2:51 PM EST) Only the most recent of2 resultswithin the time period is included. Glucose 110(H) 65 - 99 mg/dL 10/19/2025 3:31 PM EST [facility] BUN 18.4 8.0 - 23.0 mg/dL 10/19/2025 3:31 PM EST [facility] Creatinine 0.90 0.57 - 1.00 mg/dL 10/19/2025 3:31 PM EST [facility] Sodium 141 136 - 145 mmol/L 10/19/2025 3:31 PM EST [facility] Potassium 4.0 3.5 - 5.2 mmol/L 10/19/2025 3:31 PM [facility] Comment:Specimen hemolyzed. Result may be falsely elevated. Chloride 102 98 - 107 mmol/L 10/19/2025 3:31 PM EST [facility] CO2 31.8(H) 22.0 - 29.0 mmol/L 10/19/2025 3:31 PM EST [facility] Calcium 8.7 8.6 - 10.5 mg/dL 10/19/2025 3:31 PM [facility] Total Protein 6.4 6.0 - 8.5 g/dL 10/19/2025 3:31 PM EST [facility] Albumin 3.6 3.5 - 5.2 g/dL 10/19/2025 3:31 PM [facility] ALT (SGPT) 13 1 - 33 U/L 10/19/2025 3:31 PM [facility] AST (SGOT) 18 1 - 32 U/L 10/19/2025 3:31 PM [facility] Alkaline Phosphatase 96 39 - 117 U/L 10/19/2025 3:31 PM [facility] Total Bilirubin 0.5 0.0 - 1.2 mg/dL 10/19/2025 3:31 PM [facility] Globulin 2.8 gm/dL 10/19/2025 3:31 PM EST [facility] Comment:Calculated Result A/G Ratio 1.3 g/dL 10/19/2025 3:31 PM EST [facility] BUN/Creatinine Ratio 20.4 7.0 - 25.0 10/19/2025 3:31 PM EST [facility] Anion Gap 7.2 5.0 - 15.0 mmol/L 10/19/2025 3:31 PM EST [facility] eGFR 71.1 >60.0 mL/min/1.7 3 10/19/2025 3:31 PM EST [facility] Blood Venipuncture / Unknown 10/19/2025 2:51 PM EST 10/19/2025 3:00 PM EST Narrative [facility] - 10/19/2025 3:31 PM EST GFR [...] not include race as a factor us Tim Vallejo DO LAB BLOOD ORDERABLES Fin al Result [facility]
[address] [place] [address], * XR Chest 1 View (10/19/2025 2:50 PM EST) Only the most recent of3 resultswithin the time period is included. Anatomical Region Laterality Modality Body N/A Radiographic Nancy ging 10/19/2025 2:59 PM EST Impressions 10/19/2025 3:27 PM EST Impression: Cardiomegaly. No acute radiographic abnormality is identified. Electronically Signed: Yonny Pritchard MD 10/19/2025 3:27 PM EST Workstation ID: [id number] Narrative 10/19/2025 3:27 PM EST XR CHEST [...] MD 10/19/2025 3:27 PM EST Workstation ID: [id number] Tim Vallejo DO IMG DIAGNOSTIC IMAGING O RDERABLES Final Result * (ABNORMAL) Potassium (10/05/2025 5:17 PM EST) Only the most recent of2 resultswithin the time period is included. Potassium 5.8(H) 3.5 - 5.2 mmol/L 10/05/2025 5:50 PM EST [facility] Comment:Specimen hemolyzed. Result may be falsely elevated. Blood Venipuncture / Unknown 10/05/2025 5:17 PM EST 10/05/2025 5:25 PM EST us Baylee Sesay PA-C LAB BLOOD ORDERABLES Fi nal Result Performing Organization Address [facility] Co de Phone Number [facility]
[address] [place] [address], * (ABNORMAL) POC Glucose Once (10/05/2025 3:51 PM EST) Only the most recent of19 resultswithin the time period is included. Glucose 139(H) 70 - 130 mg/dL 10/05/2025 3:54 PM EST [facility] Comment:Serial Number: [id number]: [id number] Blood 10/05/2025 3:51 PM EST 10/05/2025 3:54 PM EST Trudy Bolanos DO POINT OF CARE TEST ORD ERABLES Final Result Performing Organization Address [facility] Co de Phone Number [facility]
[address] [place] [address], * Magnesium (10/05/2025 3:37 PM EST) Only the most recent of5 resultswithin the time period is included. Magnesium 1.6 1.6 - 2.4 mg/dL 10/05/2025 4:34 PM EST [facility] Blood Venipuncture / Unknown 10/05/2025 3:37 PM EST 10/05/2025 4:06 PM EST Virgie Chan MD LAB BLOOD ORDERABLES Final Resul t Performing Organization Address [facility] Co de Phone Number [facility]
[address] [place] [address], * (ABNORMAL) Basic Metabolic Panel (10/05/2025 3:37 PM EST) Only the most recent of4 resultswithin the time period is included. Glucose 124(H) 65 - 99 mg/dL 10/05/2025 4:34 PM [facility] BUN 30.5(H) 8.0 - 23.0 mg/dL 10/05/2025 4:34 PM [facility] Creatinine 1.07(H) 0.57 - 1.00 mg/dL 10/05/2025 4:34 PM [facility] [facility] Sodium 139 136 - 145 mmol/L 10/05/2025 4:34 PM [facility] Potassium 5.5(H) 3.5 - 5.2 mmol/L 10/05/2025 4:34 PM [facility] Comment:Specimen hemolyzed. Result may be falsely elevated. Chloride 99 98 - 107 mmol/L 10/05/2025 4:34 PM [facility] CO2 33.3(H) 22.0 - 29.0 mmol/L 10/05/2025 4:34 PM [facility] Calcium 8.8 8.6 - 10.5 mg/dL 10/05/2025 4:34 PM [facility] BUN/Creatinine Ratio 28.5(H) 7.0 - 25.0 10/05/2025 4:34 PM [facility] Anion Gap 6.7 5.0 - 15.0 mmol/L 10/05/2025 4:34 PM [facility] eGFR 57.8(L) >60.0 mL/min/1.7 3 10/05/2025 4:34 PM [facility] Blood Venipuncture / Unknown 10/05/2025 3:37 PM EST 10/05/2025 4:06 PM EST [facility] - 10/05/2025 4:34 PM EST [...] not include race as a factor us Virgie Chan MD LAB BLOOD ORDERABLES Final Resul t [facility]
[address] [place] [address], * Telemetry Scan (10/05/2025 9:42 AM EST) Only the most recent of3 resultswithin the time period is included. [facility] Onbase ECG ORDERABLES Final Result * FL Limited Ugi For Mbs Reflux [...] MD 10/03/2025 3:55 PM EST Workstation ID: [id number] Narrative 10/03/2025 3:55 PM EST [place] VIDEO [...] MD 10/03/2025 3:55 PM EST Workstation ID: [id number] Virgie Chan MD IMG FLUOROSCOPY ORDERABLES Final Result * [...] MD 10/03/2025 3:55 PM EST Workstation ID: [id number] Sheila 10/03/2025 3:55 PM EST [place] VIDEO [...] MD 10/03/2025 3:55 PM EST Workstation ID: [id number] us Virgie Chan MD IMG FLUOROSCOPY ORDERABLES Final Result * Hemoglobin & Hematocrit, Blood (10/03/2025 7:25 AM EST) Only the most recent of3 resultswithin the time period is included. Hemoglobin 13.0 12.0 - 15.9 g/dL 10/03/2025 8:01 AM EST [facility] Hematocrit 42.2 34.0 - 46.6 % 10/03/2025 8:01 AM EST [facility] Blood Venipuncture / Unknown 10/03/2025 7:25 AM EST 10/03/2025 7:44 AM EST us Virgie Chan MD LAB BLOOD ORDERABLES Final Resul t [facility]
[address] [place] [address], * (ABNORMAL) Heparin Anti-Xa (10/02/2025 4:16 AM EST) Only the most recent of2 resultswithin the time period is included. Heparin Anti-Xa (UFH) 0.10(L) 0.30 - 0.70 IU/ml 10/02/2025 5:04 AM EST [facility] Blood Venipuncture / Unknown 10/02/2025 4:16 AM EST 10/02/2025 4:35 AM EST [place] RPH LAB BLOOD ORDERABLES Final Res ult Performing Organization Address City/[facility] Co de Phone Number [facility]
[address] [place] [address], * (ABNORMAL) C-reactive Protein (10/02/2025 4:16 AM EST) Only the most recent of2 resultswithin the time period is included. C-Reactive Protein 0.95(H) 0.00 - 0.50 mg/dL 10/02/2025 4:53 AM EST [facility] Blood Venipuncture / Unknown 10/02/2025 4:16 AM EST 10/02/2025 4:30 AM EST Virgie Chan MD LAB BLOOD ORDERABLES Final Resul t Performing Organization Address [facility] Co de Phone Number [facility]
[address] [place] [address], * Phosphorus (10/02/2025 4:16 AM EST) Only the most recent of2 resultswithin the time period is included. Phosphorus 4.2 2.5 - 4.5 mg/dL 10/02/2025 6:14 AM EST [facility] Blood Venipuncture / Unknown 10/02/2025 4:16 AM EST 10/02/2025 4:30 AM EST Virgie Chan MD LAB BLOOD ORDERABLES Final Resul t Performing Organization Address [facility] de Phone Number [facility]
[address] [place] [address], * (ABNORMAL) aPTT (10/01/2025 7:37 PM EDT) PTT 20.3(L) 60.0 - 90.0 seconds 10/01/2025 8:48 PM EDT [facility] Blood Venipuncture / Unknown 10/01/2025 7:37 PM EDT 10/01/2025 7:52 PM EDT Narrative [facility] - 10/01/2025 8:48 PM EDT PTT = The equivalent PTT values for the therapeutic range of heparin levels at 0.3 to 0.5 U/ml are 60 to 70 seconds. us Virgie Chan MD LAB BLOOD ORDERABLES Final Resul t Performing Organization Address [facility] de Phone Number [facility]
[address] [place] [address], * Protime-INR (10/01/2025 7:37 PM EDT) Protime 13.9 12.2 - 15.3 Seconds 10/01/2025 8:23 PM EDT [facility] INR 1.01 0.89 - 1.12 10/01/2025 8:23 PM EDT [facility] Blood Venipuncture / Unknown 10/01/2025 7:37 PM EDT 10/01/2025 7:52 PM EDT us Virgie Chan MD LAB BLOOD ORDERABLES Final Resul t Performing Organization Address [facility] de Phone Number [facility]
[address] [place] [address], * (ABNORMAL) MRSA Screen, PCR (Inpatient) - Swab, Nares (10/01/2025 10:36 AM EDT) MRSA PCR Positive(A ) Negative CEPHEID GENEXPERT 10/01/2025 12:07 PM EDT [facility] Swab Structure of anterior naris / Unknown Collection / Unknown 10/01/2025 10:36 AM EDT 10/01/2025 10:36 AM EDT Sheila [facility] - 10/01/2025 12:07 PM EDT The negative predictive value of this diagnostic test is high and should only be used to consider de-escalating anti-MRSA therapy. A positive result may indicate colonization with MRSA and must be correlated clinically. Virgie Chan MD MICROBIOLOGY - GENERAL ORDERABLE S Final Result [facility]
[address] [place] [address], * (ABNORMAL) Blood Gas, Arterial With Co-Ox (10/01/2025 9:07 AM EDT) Only the most recent of2 resultswithin the time period is included. Site Left Brachial 10/01/2025 9:07 AM EDT [facility] Wili's Test N/A 10/01/2025 9:07 AM EDT [facility] pH, Arterial 7.339(L) 7.350 - 7.450 pH units 10/01/2025 9:07 AM EDT [facility] Comment:84 Value below refer ence range pCO2, Arterial 55.2(H) 35.0 - 45.0 mm Hg 10/01/2025 9:07 AM EDT [facility] Comment:83 Value above refer ence range pO2, Arterial 86.8 83.0 - 108.0 mm Hg 10/01/2025 9:07 AM EDT [facility] HCO3, Arterial 29.6(H) 20.0 - 26.0 mmol/L 10/01/2025 9:07 AM EDT [facility] Base Excess, Arterial 2.6(H) 0.0 - 2.0 mmol/L 10/01/2025 9:07 AM EDT [facility] Hemoglobin, Blood Gas 13.7(L) 14 - 18 g/dL 10/01/2025 9:07 AM EDT [facility] Hematocrit, Blood Gas 42.1 38.0 - 51.0 % 10/01/2025 9:07 AM EDT [facility] Oxyhemoglobin 93.6(L) 94 - 99 % 10/01/2025 9:07 AM EDT [facility] Comment:84 Value below refer ence range Methemoglobin 0.20 0.00 - 1.50 % 10/01/2025 9:07 AM EDT [facility] Carboxyhemoglobin 2.5(H) 0 - 2 % 025 9:07 AM T [facility] Comment:83 Value above refer ence range CO2 Content 31.3 22 - 33 mmol/L 10/01/2025 9:07 AM EDT [facility] Temperature 37.0 10/01/2025 9:07 AM [facility] Barometric Pressure for Blood Gas 10/01/2025 9:07 AM T [facility] Comment:N/A Modality BiPap 10/01/2025 9:07 AM [facility]ER[facility] FIO2 45 % 10/01/2025 9:07 AM [facility] THER[facility] Ventilator Mode BiPAP 9:07 AM [facility] THER[facility] IPAP 16 cm H2O 10/01/2025 9:07 AM [facility] Comment:Meter: [id number] Technical Support Analyst: [id number] EPAP 6 cm H2O 10/01/2025 9:07 AM [facility] THER[facility] pH, Temp Corrected 7.339 pH Units 2024 9:07 AM [facility] THER[facility] pCO2, Temperature Corrected 55.2(H) 35 - 45 mm Hg 10/01/2025 9:07 AM T [facility] pO2, Temperature Corrected 86.8 83 - 108 mm Hg 10/01/2025 9:07 AM [facility] Arterial Blood 10/01/2025 9: 07 AM EDT 10/01/2025 9:07 AM EDT Virgie Chan MD LAB BLOOD ORDERABLES Final Resul t Performing Organization Address [facility] Co de Phone Number [facility]
[address] [place] [address], * (ABNORMAL) Urinalysis, Microscopic Only - Urine, Clean Catch (10/01/2025 6:39 AM EDT) RBC, UA 0-2 None Seen, 0-2 /HPF 10/01/2025 7:36 AM EDT [facility] WBC, UA 21-50(A) None Seen, 0-2 /HPF 10/01/2025 7:36 AM EDT [facility] Bacteria, UA None Seen None Seen /HPF 10/01/2025 7:36 AM EDT [facility] Squamous Epithelial Cells, UA 0-2 None Seen, 0-2 /HPF 10/01/2025 7:36 AM EDT [facility] Hyaline Casts, UA 3-6 None Seen /LPF 10/01/2025 7:36 AM EDT [facility] Methodology Automated Microscopy 10/01/2025 7:36 AM EDT [facility] Urine Urine specimen obtained by clean catch procedure / Unknown Collection / Unknown 10/01/2025 6:39 AM EDT 10/01/2025 7:05 AM EDT us Franklin Thorpe MD URINE ORDERABLES Final Result Performing Organization Address [facility] de Phone Number [facility]
[address] [place] [address], * (ABNORMAL) Urinalysis With Microscopic If Indicated (No Culture) - Urine, Clean Catch (10/01/2025 6:39 AM EDT) Color, UA Yellow Yellow, Straw 10/01/2025 7:36 AM EDT [facility] Appearance, UA Clear Clear 10/01/2025 7:36 AM EDT [facility] pH, UA <=5.0 5.0 - 8.0 10/01/2025 7:36 AM EDT [facility] Specific [place], UA >1.030(H) 1.005 - 1.030 10/01/2025 7:36 AM EDT [facility] Glucose, UA Negative Negative 10/01/2025 7:36 AM EDT [facility] Ketones, UA Negative Negative 10/01/2025 7:36 AM EDT [facility] Bilirubin, UA Negative Negative 10/01/2025 7:36 AM EDT [facility] Blood, UA Negative Negative 10/01/2025 7:36 AM EDT [facility] Protein, UA Negative Negative 10/01/2025 7:36 AM EDT [facility] Leuk Esterase, UA Moderate (2+)(A) Negative 10/01/2025 7:36 AM EDT [facility] Nitrite, UA Negative Negative 10/01/2025 7:36 AM EDT [facility] Urobilinogen, UA 0.2 E.U./dL 0.2 - 1.0 E.U./dL 10/01/2025 7:36 AM EDT [facility] Urine Urine specimen obtained by clean catch procedure / Unknown Collection / Unknown 10/01/2025 6:39 AM EDT 10/01/2025 7:05 AM EDT Franklin Thorpe MD URINE ORDERABLES Final Result [facility]
[address] [place] [address], * S. Pneumo Ag Urine or CSF - Urine, Urine, Clean Catch (10/01/2025 6:39 AM EDT) Strep Pneumo Ag Negative Negative 10/01/2025 12:48 PM EDT [facility] Urine Urine specimen obtained by clean catch procedure / Unknown Collection / Unknown 10/01/2025 6:39 AM EDT 10/01/2025 9:50 AM EDT us Virgie Chan MD MICROBIOLOGY - GENERAL ORDERABLE S Final Result [facility]
[address] [place] [address], * (ABNORMAL) Urine Drug Screen - Urine, Clean Catch (10/01/2025 6:39 AM EDT) THC, Screen, Urine Positive(A) Negative 10/01 7:19 AM EDT [facility] Phencyclidine (PCP), Urine Negative Negative 10/01/2025 7:19 AM EDT [facility] Cocaine Screen, Urine Positive(A) Negative 10/01/2025 7:19 AM EDT [facility] Methamphetamine, Ur Negative Negative 10/01/2025 7:19 AM EDT [facility] Opiate Screen Positive(A) Negative 10/01/2025 7:19 AM EDT [facility] Amphetamine Screen, Urine Negative Negative 10/01/2025 7:19 AM EDT [facility] Benzodiazepine Screen, Urine Positive(A) Negative 10/01/2025 7:19 AM EDT [facility] Tricyclic Antidepressants Screen Negative Negative 10/01/2025 7:19 AM EDT [facility] Methadone Screen, Urine Negative Negative 10/01/2025 7:19 AM EDT [facility] Barbiturates Screen, Urine Negative Negative 10/01/2025 7:19 AM EDT [facility] Oxycodone Screen, Urine Negative Negative 10/01/2025 7:19 AM EDT [facility] Buprenorphine, Screen, Urine Negative Negative 10/01/2025 7:19 AM EDT [facility] Urine Urine specimen obtained by clean catch procedure / Unknown Collection / Unknown 10/01/2025 6:39 AM EDT 10/01/2025 7:05 AM EDT Narrative [facility] - 10/01/2025 7:19 AM EDT Cutoff [...] test, particularly when unconfirmed results are used. us Virgie Chan MD URINE ORDERABLES Final Result [facility]
[address] [place] [address], [place] [phone] * Legionella Antigen, Urine - Urine, Urine, Clean Catch (10/01/2025 6:39 AM EDT) LEGIONELLA ANTIGEN, URINE Negative Negative 10/01/2025 12:47 PM EDT [facility] Urine Urine specimen obtained by clean catch procedure / Unknown Collection / Unknown 10/01/2025 6:39 AM EDT 10/01/2025 9:50 AM EDT us Virgie Chan MD MICROBIOLOGY - GENERAL ORDERABLE S Final Result [facility]
[address] [place] [address], [place] [phone] * Fentanyl, Urine - Urine, Clean Catch (10/01/2025 6:39 AM EDT) Fentanyl, Urine Negative Negative 10/01/2025 10:01 AM EDT [facility] Urine Urine specimen obtained by clean catch procedure / Unknown Collection / Unknown 10/01/2025 6:39 AM EDT 10/01/2025 7:05 AM EDT [facility] - 10/01/2025 10:01 AM EDT [...] test, particularly when unconfirmed results are used. us Virgie Chan MD URINE ORDERABLES Final Result Performing Organization Address [facility] Co de Phone Number [facility]
[address] [place] [address], * proBNP (10/01/2025 6:14 AM EDT) [facility] proBNP 319.0 0.0 - 900.0 pg/mL 10/01/2025 8:26 AM EDT [facility] Blood Venipuncture / Unknown 10/01/2025 6:14 AM EDT 10/01/2025 6:21 AM EDT [facility] - 10/01/2025 8:26 AM EDT This [...] Positive >1800 Juárez 300-1800 Negative <300 us Virgie Chan MD LAB BLOOD ORDERABLES Final Resul t Performing Organization Address [facility] Co de Phone Number [facility]
[address] [place] [address], * Scan Slide (10/01/2025 6:14 AM EDT) [facility] RBC Morphology Normal Normal 10/01/2025 7:25 AM EDT [facility] WBC Morphology Normal Normal 10/01/2025 7:25 AM EDT [facility] Platelet Morphology Normal Normal 10/01/2025 7:25 AM EDT [facility] Blood Venipuncture / Unknown 10/01/2025 6:14 AM EDT 10/01/2025 6:21 AM EDT Franklin Thorpe MD LAB BLOOD ORDERABLES Final Re sult Performing Organization Address [facility] de Phone Number [facility]
[address] [place] [address], * Lactic Acid, Plasma (10/01/2025 6:13 AM EDT) [facility] Lactate 1.8 0.5 - 2.0 mmol/L 10/01/2025 6:57 AM EDT [facility] Comment:Falsely depressed re sults may occur on samples drawn from patients receiving N-Acetylcysteine (NAC) or Metamizole. Blood Venipuncture / Unknown 10/01/2025 6:13 AM EDT 10/01/2025 6:21 AM EDT us Franklin Thorpe MD LAB BLOOD ORDERABLES Final Re sult Performing Organization Address [facility]/ZIP Co de Phone Number [facility]
[address] [place] [address], [place] [phone] * Respiratory Panel PCR w/COVID-19(SARS-CoV-2) CHRISTINA/JUANA/BELEN/PAD/COR/TYRA In-House, ANALYSIS MANAGER Swab in UTM/VTM, 2 HR TAT - Swab, Nasopharynx (10/01/2025 12:07 AM EDT) [facility] ADENOVIRUS, PCR Not Detected Not Detected BIOFIRE TORCH 10/01/2025 1:35 AM EDT [facility] Coronavirus 229E Not Detected Not Detected BIOFIRE TOR 10/01/2025 1:35 AM EDT [facility] Coronavirus HKU1 Not Detected Not Detected BIOFIRE TOR 10/01/2025 1:35 AM EDT [facility] Coronavirus NL63 Not Detected Not Detected BIOFIRE TOR 10/01/2025 1:35 AM EDT [facility] Coronavirus OC43 Not Detected Not Detected BIOFIRE TOR 10/01/2025 1:35 AM EDT [facility] COVID19 Not Detected Not Detected - Ref. Range BIOFIRE TOR 10/01/2025 1:35 AM EDT [facility] Human Metapneumovirus Not Detected Not Detected BIOFIRE TOR 10/01/2025 1:35 AM EDT [facility] Human Rhinovirus/Enterov irus Not Detected Not Detected BIOFIRE TOR 10/01/2025 1:35 AM EDT [facility] Influenza A PCR Not Detected Not Detected BIOFIRE TOR 10/01/2025 1:35 AM EDT [facility] Influenza B PCR Not Detected Not Detected BIOFIRE TOR 10/01/2025 1:35 AM EDT [facility] Parainfluenza Virus 1 Not Detected Not Detected BIOFIRE TOR 10/01/2025 1:35 AM EDT [facility] Parainfluenza Virus 2 Not Detected Not Detected BIOFIRE TOR 10/01/2025 1:35 AM EDT [facility] Parainfluenza Virus 3 Not Detected Not Detected BIOFIRE TOR 10/01/2025 1:35 AM EDT [facility] Parainfluenza Virus 4 Not Detected Not Detected BIOFIRE TOR 10/01/2025 1:35 AM EDT [facility] RSV, PCR Not Detected Not Detected BIOFIRE TOR 10/01/2025 1:35 AM EDT [facility] Bordetella pertussis pcr Not Detected Not Detected BIOFIRE TOR 10/01/2025 1:35 AM EDT [facility] Bordetella parapertussis PCR Not Detected Not Detected BIOFIRE TOR 10/01/2025 1:35 AM EDT [facility] Chlamydophila pneumoniae PCR Not Detected Not Detected [facility] 10/01/2025 1:35 AM EDT [facility] Mycoplasma pneumo by PCR Not Detected Not Detected [facility] 10/01/2025 1:35 AM EDT [facility] Swab Nasopharyngeal structure / Unknown Collection / Unknown 10/01/2025 12:07 AM EDT 10/01/2025 12:35 AM EDT [facility] - 10/01/2025 1:35 AM EDT [...] antibiotic de-escalation to target atypical bacterial infection. Tim Anthony MD MICROBIOLOGY - GENERAL ORDERA [facility] Final Result [facility]
[address] [place] [address], * High Sensitivity Troponin T 1Hr (09/30/2025 11:49 PM EDT) HS Troponin T 10 <14 ng/L 10/01/2025 12:21 AM EDT [facility] Troponin T Numeric Delta 1 Abnormal if >/=3 ng/L 10/01/2025 12:21 AM EDT [facility] Blood Port / Unknown 09/30/2025 11 :49 PM EDT 10/01/2025 12:01 AM EDT [facility] - 10/01/2025 12:21 AM EDT [...] due to an underlying chronic condition. us Tim Anthony MD LAB BLOOD ORDERABLES Final Re sult [facility]
[address] [place] [address], * CT Angiogram Chest Pulmonary Embolism (09/30/2025 [...] MD 09/30/2025 11:54 PM EDT Workstation ID: [id number] Narrative 09/30/2025 11:[address] ANGIOGRAM CHEST [...] MD 09/30/2025 11:54 PM EDT Workstation ID: [id number] us Tim Anthony MD IM CT ORDERABLES Final Resul t * CT Abdomen Pelvis With Contrast (09/30/2025 11:48 PM EDT) Anatomical Region Laterality Modality Abdomen, Pelvis N/A Computed Tomogra phy 09/30/2025 11:5 4 PM EDT Impressions 09/30/2025 11:57 PM EDT Impression: 1.No acute abdominal or pelvic abnormality. 2.Interval resolution of hepatic steatosis. 3.Colonic diverticulosis. 4.Atherosclerosis. 5.Severe right hip DJD. Electronically Signed: Abraham Stephen MD 09/30/2025 11:57 PM EDT Workstation ID: [id number] Narrative 09/30/2025 11:[address] ABDOMEN [...] 5.Severe right hip DJD. Electronically Signed: Abraham Setphen MD 09/30/2025 11:57 PM EDT Workstation ID: [id number] us Tim Anthony MD IMG CT ORDERABLES Final Resul t * (ABNORMAL) Blood Gas, Venous With Co-Ox (09/30/2025 10:11 PM EDT) Site Nurse/Dr Mcintosh 09/30/2025 10:12 PM EDT [facility] pH, Venous 7.377 7.310 - 7.410 pH Units 09/30/2025 10:12 PM EDT [facility] pCO2, Venous 54.0(H) 41.0 - 51.0 mm Hg 09/30/2025 10:12 PM EDT [facility] Comment:83 Value above refer ence range pO2, Venous 33.4 27.0 - 53.0 mm Hg 09/30/2025 10:12 PM EDT [facility] HCO3, Venous 31.7(H) 22.0 - 28.0 mmol/L 09/30/2025 10:12 PM EDT [facility] Base Excess, Venous 5.1(H) -2.0 - 2.0 mmol/L 09/30/2025 10:12 PM EDT [facility] Hemoglobin, Blood Gas 13.8(L) 14 - 18 g/dL 09/30/2025 10:12 PM EDT [facility] Oxyhemoglobin Venous 57.5 % 09/02 10:12 PM EDT [facility] Methemoglobin Venous 0.5 % 09/02 10:12 PM EDT [facility] Carboxyhemoglobin Venous 6.7 % 09/30/2025 10:12 PM EDT [facility] Comment:83 Value above refer ence range CO2 Content 33.4(H) 22 - 33 mmol/L 09/30/2025 10:12 PM EDT [facility] Temperature 37.0 09/30/2025 10:12 PM EDT [facility] Barometric Pressure for Blood Gas 09/30/2025 10:12 PM EDT [facility] Comment:N/A Modality Nasal Cannula 09/30/2025 10:12 PM EDT [facility] FIO2 40 % 09/30/2025 10:12 PM EDT [facility] Rate 0 Breaths/ minute 09/30/2025 10:12 PM EDT [facility] PIP 0 cmH2O 09/30/2025 10:12 PM EDT [facility] Comment:Meter: [id number] Technical Support Analyst: [id number] IPAP 0 cm H2O 09/30/2025 10:12 PM EDT [facility] EPAP 0 cm H2O 09/30/2025 10:12 PM EDT [facility] Venous Blood 09/30/2025 10:1 1 PM EDT 09/30/2025 10:11 PM EDT Tim Anthony MD LAB BLOOD ORDERABLES Final Re sult [facility]
[address] [place] [address], * Colonoscopy, Scan (04/05/2024) Rubin Kearney MD CHART REVIEW T ABS Final Result * POC Occult Blood Stool (07/29/2020 7:04 PM EDT) Fecal Occult Blood Negative Negative [facility] Lot Number [id number] [place] [address] LABORATORY Expiration Date 06/21 [facility] DEVELOPER LOT NUMBER [id number] [facility] DEVELOPER EXPIRATION DATE 05/23 [facility] Positive Control Positive Positive [facility] Negative Control Negative Negative [facility] Stool Specimen from rectum / Unknown 07/29/2020 7:04 PM EDT Cheko Galdamez MD POINT OF CARE TEST ORDERABLES Final Result Performing Organization Address [facility] de Phone Number [facility]
[address] [place] [address], * (ABNORMAL) Hemoglobin A1c (08/01/2017 5:10 AM EDT) Hemoglobin A1C 6.30(H) 4.80 - 5.60 % 08/01/2017 8:00 AM EDT [facility] Blood 08/01/2017 5:10 AM EDT 08/01/2017 5:26 AM EDT Narrative [facility] - 08/01/2017 8:00 AM EDT [employer] [place] [employer] recommends maintenance of Hemoglobin A1C at 7.0% or lower. Goals for Hemoglobin A1C reduction may need to be modified if hypoglycemia is a problem. Lili Mandujano II, LAB BLOOD ORDERABLES Elodia l Result [facility]
[address] [place] [address], from Last 3 Months or Most Recently Relevant to Health Maintenance Additional Health Concerns Infection Onset Date Last Indicated MRSA 10/01/2025 10/01/2025 Insurance MEDICAID [employer] MEDICARE ADVANTAGE SNP HMO Advance Directives Documents on File Type Date Recorded Patient Staff Midwife/Apprenticeship Director Expl anation LIVING WILL - SCAN 10/04/2025 5:07 PM STEPHANIE NG WILL DIRECTIVE, BHLEX, 10/04/2025 * CPR (Attempt to Resuscitate) (Latest Code Status on File) Date Activated Date Inactivated Comments 10/01/2025 8:07 AM 10/05/2025 8:24 PM Question Answer Comments Code Status (Patient has no pulse and is not breathing): CPR (Attempt to Resuscitate) Medical Interventions (Patie nt has pulse or is breathing): Full Support Level Of Support Discussed With: Patient * CPR (Attempt to Resuscitate) Date Activated Date Inactivated Comments 04/29/2023 8:39 [...] Comments 07/31/2017 9:25 AM 08/04/2017 3:38 PM Healthcare Agents on File Name Relationship Healthcare Agent Relationshi p Communication Maurizio Mcbride [facility] Surrogate Carolina Mcbride [facility]ate Health Care Surrogate Care Teams Boiler Riveter Relationship Specialty Start Date End Date Juan C Colón MD [address] [place] [address] PCP - General Family Medicine 04/30/23
--- OUTSIDE RECORDS SUMMARY | 2025-11-03 12:17 | XMS_ITS | Clinical Summary ---
Author Organization Healthcare Address [address] [place] [address] Care Team Providers Care Cleaner Touch Up Worker Name Role Phone Oskar Donovan MD Primary Care Provider [phone] Medications No known medications Active Problems No [...] Health Maintenance Due Date Last Done Comments [facility]-Bone Density Scan 1960 [facility]-Depression Screening 1960 [facility]-Medicare Annual Wellness (AWV) [...] 07/29/2021 07/29/2020, 07/24/2020 [facility]-Colorectal Cancer Screening 07/29/2021 [id number] Vaccine (3 - season) 2025 10/09/2021, 02/02/2021 [facility]-Influenza Vaccine (#1) 08/01/202508/18, 09/23/2018, 09/15/2015, Additional history exists [facility]-RSV Vaccine: 60+ Years or (1 - 1-dose 75+ series) 2035 [facility]-Hepatitis C Screening Completed 04/11/2022 HPV Vaccines [...] QUANT PCR STAT 04/11/2022 6:36 PM EDT from Last 3 Months or Most Recently Relevant to Health Maintenance Results * [place] Hepatitis C Antibody (04/11/2022 6:36 PM EDT) Hepatitis C Antibody Negative Negative 04/11/2022 9:56 PM EDT [facility] Blood Venous blood specimen / Unknown Venipuncture / Unknown 04/11/2022 6:36 PM EDT 04/11/2022 6:43 PM EDT us Leland Miller MD LAB BLOOD ORDERABLES Final Resul t [facility] [address] [place] [address] from Last 3 Months or Most Recently Relevant to Health Maintenance Insurance Care Teams Cleaner Touch Up Worker Relationship Specialty Start Date End Date Oskar Donovan MD [address] [place] [address] PCP - General 04/13/21
--- OUTSIDE RECORDS SUMMARY | 2025-11-03 12:17 | XMS_ITS | Encounter Summary ---
[facility] Address [address] [place] [address] Care Team Providers Care Middle School French Teacher Name Role Phone Juan C Colón MD Primary Care Provider [phone] Encounter Details Date Type Department Care Team (Latest Contact Info) Description 09/30/2025 Travel Social History Tobacco Use Types Packs/Day Years Used Date Smoking Tobacco: Former Cigarettes 0.3 45 0 12/01/1975 - 12/01/2020 Smokeless Tobacco: Never Comments:weaning off Alcohol Use [...] more drinks on one occasion? Never 10/01/2025 Abuse Screen Answer Date Recorded Feels Unsafe at Home or Work/School no 10/01/2025 Feels Threatened by Someone no 12/2024 Does Anyone Try to Keep You From Having Contact with Others or Doing Things Outside Your Home? no 10/01/2025 Physical Signs of Abuse Present no 10/01/2025 Housing Stability Answer Date Recorded Current Living Arrangements home 12/2024 Potentially Unsafe Housing Conditions Not on grisel e 10/01/2025 Family and Community Support Answer Jag e Recorded Help with Day-to-Day Activities Not on file 09/08/2023 Lonely or Isolated Not on file 09/08/2023 Employment Answer Date Recorded Do you want help finding or keeping work or a laura b? Not on file 09/08/2023 Disabilities Answer Date Recorded Difficulty Concentrating, Remembering or Making Decisions no 10/01/2025 Difficulty Managing Errands Independently yes 10/01/2025 Education Answer Date Recorded Help with school or training? Not on file Preferred Language Greek 02/17/2024 Comments No Sex and Gender Information Value Date Recorded Sex Assigned at Not on file Legal Sex Female 10:08 AM EDT Gender Identity Not on file Sexual Orientation Not on file documented as of this encounter Functional Status * Calculated C-SSRS Risk Score (Lifetime/Recent) Answer Date of Assessment Author No Risk Indicated 09/30/2025 9:59 PM EDT Shayla Head RN * [place] Suicide Severity Rating Scale (Screener/Recent Self-Report) Question Answer Date of Assessment Author 1. Wish to be (Past 1 Month) No 025 9:59 PM EDT Nicho Head RN 2. Non-Specific Active Suici willy Thoughts (Past 1 Month) No 09/30/2025 9:59 PM EDT Nicho Head, RN 6. Suicidal Behavior (Lifetime) No 9:59 PM EDT Nicho Head RN documented as of this encounter Plan of Treatment Not on file documented as of this encounter Visit Diagnoses Not on filedocumented in this encounter Care Teams Middle School French Teacher Relationship Specialty Start Date End Date Juan C Colón MD [address] [place] [address] [id number] PCP - General Family Medicine 04/30/23 documented as of this encounter
--- OUTSIDE RECORDS SUMMARY | 2025-11-03 12:17 | XMS_ITS | Clinical Summary ---
Author Organization [facility] Address [address] [place] [address] Phone Care Team Providers Care Metal Stamping Machine Operator Name Role Phone Unavailable Primary Care Provider [...] FIT 2005 Sigmoidoscopy 2005 Virtual Colonography 2005 RSV or 60+ (1 - Ris k 50-74 years 1-dose series) 2010 Zoster (1 of 2) 2010 COVID-19 Vaccine (1 - 2024-2 6 season) 2025 Influenza Vaccine (#1) 2025 2008 Bone Density Screening 2025 Hepatitis C Screening Completed 08/12/2011 Hepatitis B [...] 12:19 PM EDT 08/12/2011 9:31 PM EDT Juan C Mcmanus MD CHEMISTRY ORDERABLES Edit ed Performing Organization Address City/State/[facility] Co de Phone Number [facility] [address] [place] [address] from Last 3 Months or Most Recently Relevant to Health Maintenance Insurance MEDICARE [place] PART A [place] B MEDICAID [place] PART A [place] B [place]ICAID [place] Member Subscriber Plan / Payer (Ef fective 2011-Present) Name:Linda Arteaga Relation to Subscriber:Self Name:Arteaga Linda R Payer ID:Not on file Group ID:Not on file Type:Not on file Address: [address] [place] [id number]
--- OUTSIDE RECORDS SUMMARY | 2025-11-03 12:17 | XMS_ITS | Encounter Summary ---
[facility] Address [address] [place] [address] Care Team Providers Care Slip Presser Name Role Phone Juan C Colón MD Primary Care Provider [phone] Encounter Details Date Type Department Care Team (Latest Contact Info) Description 10/19/2025 Travel Social History Tobacco Use Types Packs/Day [...] care, and heating? Not very hard 10/02/2025 [facility] of Occupat ional Health - Occupational Stress [...] things needed for daily living? No 10/02/2025 [facility] Utilities Answer Date Recorded In the past 12 months has [employer] electric, gas, oil, or water company threatened [...] GED or equivalent No 10/02/2025 Preferred Language Chadian 10/02/2025 PHQ-2 Answer Date Recorded Patient Health [...] Author No Risk Indicated 10/19/2025 4:35 PM Tonya Deluna RN * [place] Suicide Severity Rating Scale (Screener/Recent Self-Report) Question Answer Date of Assessment Author 1. Wish to be (Past 1 Month) No 025 4:35 PM Melissa Deluna RN 2. Non-Specific Active Suici willy Thoughts (Past 1 Month) No 10/19/2025 4:35 PM Earnestine Deluna RN 6. 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
--- OUTSIDE RECORDS SUMMARY | 2025-11-03 12:17 | XMS_ITS | Patient Health Record ---
Author Organization [facility] [place] Address [address] [place] [address] Care Team Providers Care Cigar Roller Name Role Phone ANGELINA BOWIE Primary Care Provider Reason For Referral No Information Plan Of Treatment No Information
[2025-11-03 12:18] LABS: Albumin Level 4.0 g/dl (3.5-5.0); Potassium 4.1 mmoL/L (3.5-5.1); Sodium 142 mmol/L (136-145)
[2025-11-03 12:21] LABS: Alanine Aminotransferase 15 U/L (12-78); Albumin/Globulin Ratio 1.3 (1.1-1.8); Alkaline Phosphatase 96 U/L (38-126); Anion Gap 17.1 mEq/L (5-15); Aspartate Amino Transferase 18 U/L (14-36); Bilirubin,Total 0.5 mg/dl (0.2-1.3); Blood Urea Nitrogen 11 mg/dl (7-17); Calcium 8.6 mg/dl (8.4-10.2); Carbon Dioxide 27 mmol/L (22.0-30.0); Creatinine Clearance Estimated 69 mL/min (50-200); Creatinine,Serum 1.10 mg/dl (0.52-1.04); Estimated Glomerular Filt Rate 50 ml/min (>60); GFR (African American) 60 ML/MIN (>60); Globulin 3.2 g/dL (1.3-3.2); Glucose 127 mg/dl (74-100); Lipase 77 U/L (23-300); Total Protein,Serum 7.2 g/dl (6.3-8.2)
[2025-11-03 12:23] LABS: Activated Partial Thrombo Time 30.9 seconds (22.8-30.6); INR 1.07 (0.9-1.1); Prothrombin Time 11.8 seconds (10.1-12.5)
[2025-11-03] MEDS: HYDROMORPHONE 2MG/ML SYRINGE 1 MG IV (12:28)
[2025-11-03] MEDS: PROMETHAZINE HCL 25MG/ML 1ML VIAL 12.5 MG IV (12:29)
[2025-11-03] MEDS: SODIUM CHLORIDE 0.9% 25ML BAG 25 ML IV (12:29)
[2025-11-03 12:31] LABS: NT Pro Brain Natriuretic Pep. 1090 pg/mL (0-125)
[2025-11-03 12:46] LABS: Troponin I < 0.01 ng/ml (0.00-0.034)
[2025-11-03] MEDS: 0.9 % SODIUM CHLORIDE 50 ML VIAL 40 ML IV (12:46)
[2025-11-03] MEDS: SODIUM CHLORIDE 0.9% 10ML SYR (RAD ONLY) 10 ML IV (12:46)
[2025-11-03] MEDS: IOPAMIDOL-370 (76%);100ML BOTTLE 80 ML IV (12:47)
--- NOTE | 2025-11-03 13:07 | PC.NURSE ---
Pt noted to have an oxygen saturation of 68% on the monitor with a good pleth. This RN to bedside to assess patient. Pt noted to be drowsy and o2 remained in the mid 70s. Pt Placed on a NRB at 15L. Tobi JUAREZ notified and to bedside to evaluate patient.
--- NOTE | 2025-11-03 13:36 | PC.NURSE ---
Pt transitioned back to nasal cannula at 3L per provider request.
--- NOTE | 2025-11-03 14:08 | PC.NURSE ---
Pt placed back onto NRB at 15L due to oxygen saturation of 83%. Pt still drowsy at this time. Provider notified.
[2025-11-03] MEDS: NALOXONE 0.4MG/ML VIAL 0.4 MG IV (14:52)
--- NOTE | 2025-11-03 14:54 | PC.NURSE ---
Tobi cortés to bedside
[2025-11-03 15:23] LABS: Microscopic, Urine URINE MICROSCOPIC (MICROSCOPIC)
[2025-11-03 15:32] LABS: Bilirubin,Urine Negative (Negative); Color,Urine YELLOW (Yellow); Glucose,Urine (UA) Negative (Negative); Ketones,Urine Negative (Negative); Leukocyte Esterase,Urine 1+ (Negative); PH,Urine 6.0 (5.0-8.5); Protein,Urine Negative (Negative); Specific Gravity, Urine 1.020 (1.005-1.030); Urobilinogen,Urine 0.2 EU/dl (0.2)
[2025-11-03 15:52] LABS: Barbiturates Screen,Urine Negative ng/ml (<200)
[2025-11-03 15:53] LABS: Benzodiazepines Screen,Urine Positive ng/ml (<200)
[2025-11-03 15:54] LABS: Amphetamine/Metha Screen,Urine Negative ng/ml (<1000)
[2025-11-03 15:55] LABS: Methadone Screen,Urine Negative ng/ml (<300)
[2025-11-03 15:57] LABS: Opiate Screen,Urine Negative ng/ml (<300)
[2025-11-03 15:58] LABS: Phencyclidine Screen,Urine Negative ng/ml (<25)
[2025-11-03 16:12] LABS: Bacteria,Urine 2+ /lpf; RBC,Urine Occasional #/hpf (0-3); Squamous Epithelial Cell,Urine Occasional #/hpf (0-5)
== END 2025-11-03 17:43 | disposition home or self-care (01) ==
PROVIDERS: Emergency Provider Student in an Organized Health Care Education/Training Program; PCP Family Medicine
DX: R07.9 Chest pain, unspecified (principal); I48.91 Unspecified atrial fibrillation; R09.02 Hypoxemia; R10.10 Upper abdominal pain, unspecified; K57.32 Diverticulitis of large intestine without perforation or abscess without bleeding; J44.9 Chronic obstructive pulmonary disease, unspecified; F17.210 Nicotine dependence, cigarettes, uncomplicated; Z99.81 Dependence on supplemental oxygen
CPT/HCPCS: 71045; 74174; 80053; 80307; 81001; 83690; 83880; 84484; 85025; 85610; 85730; 87086; 93005; 96374; 96375; 99285; J1171; J1642; J2312; J2550; Q9967

== ENCOUNTER 2025-11-04 13:20 | Emergency (ER) | payer MEDICARE, MEDICAID, SELFPAY ==
--- OUTSIDE RECORDS SUMMARY | 2025-09-30 20:51 | XMS_ITS | Encounter Summary ---
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 Procedures MO OFFICE/OUTPATIENT NEW MODERATE MDM 45 MINUTES Baylee Sesay PA-C [address] [facility] [address] [place] [address] Phone: tel: fax: Rubin Kearney MD [address] [facility] [address] [place] [address] Phone: tel: fax: Referral ID Status Reason Start Date Expiration Date Visits Requested Visits Authorized [id number] Authorized Specialty Services Required 10/05/2025 01/04/2027 1 1 * Home Health (Routine) - Pending Review Specialty Diagnoses / Procedures Referred By Contfernando t Referred To Contact Home Health Services Diagnoses Acute on chronic hypoxic respiratory failure Acute on chronic respiratory failure with hypoxemia Chronic obstructive pulmonary disease with acute exacerbation Esophageal dysphagia Essential hypertension Morbidly obese Paroxysmal atrial fibrillation Atrial fibrillation with rapid ventricular response Procedures MO OFFICE/OUTPATIENT NEW MODERATE MDM 45 MINUTES Sabrina Stephens MD [facility] [address] [address] Phone: tel: fax: Referral ID Status Reason Start Date Expiration Date Visits Requested Visits Authorized [id number] Pending Review Specialty Services Required 10/03/2025 01/02/2027 999 999 Reason for Visit * Reason Comments Abdominal Pain * Auth/Cert Specialty Diagnoses / Procedures Referred By Carlyn t Referred To Contact Diagnoses COPD exacerbation Referral ID Status Reason Start Date Expiration Date Visits Re quested Visits Authorized [id number] 1 1 Encounter Details Date Type Department Care Team (Late st Contact Info) Description 09/30/2025 9:51 PM EDT - 10/05/2025 6:18 PM EST Hospital Encounter [address] [place] [address] Orlando Anthony MD [address] [place] [address] Attn: [place] [address] Franklin Thorpe MD [address] [address] Roc Malcolm MD [address] [address] Sabrina Stephens MD [address] [address] Trudy Bolanos, [address] [address] Pneumonia of both lower lobes due to infectious organism (Primary Dx); Acute on chronic hypoxic respiratory failure; Epigastric abdominal pain; Dysphagia, unspecified type; Acute on chronic respiratory failure with hypoxemia; Chronic obstructive pulmonary disease with acute exacerbation; Esophageal dysphagia; Essential hypertension; Morbidly obese; Paroxysmal atrial fibrillation; Atrial fibrillation with rapid ventricular response; 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 Discharge Disposition: Left Against Medical Advice Social History Tobacco Use Types Packs/Day Years Used Date Smoking Tobacco: Former Cigarettes 0.3 45 0 12/01/1975 - 12/01/2020 Passive Smoke Exposure: Never Smokeless Tobacco: Never Tobacco Cessation:Counseling Given: No Comments:weaning off Alcohol Use Standard Drinks/Week Comments Never 0 (1 standard drink = 0.6 oz pur e alcohol) AUDIT-C Answer Date Recorded Q1: How often do you have a drink containing alcohol? Never 10/01/2025 Q2: How many drinks containi ng alcohol do you have on a typical day when you are drinking? Patient does not drink Q3: How often do you have si x or more drinks on one occasion? Never 10/01/2025 Overall Financial Resource Strain (CARDIA) Answe r Date Recorded How hard is it for you to pa y for the very basics like food, housing, medical care, and heating? Not very hard 10/02/2025 [facility] - Occupational Stress Questionnaire Answer Date Recorded Do you feel stress - tense, restless, nervous, or anxious, or unable to sleep at night because your mind is troubled all the time - these days? Only a little 10/02/2025 Exercise Vital Sign Answer Date Recorde d On average, how many days pe r week do you engage in moderate to strenuous exercise (like a brisk walk)? Patient declined On average, how many minutes do you engage in exercise at this level? Patient declined 10/02/2025 Hunger Vital Sign Answer Date Recorded Within the past 12 months, y ou worried that your food would run out before you got the money to buy more. Never true 10/02/20 25 Within the past 12 months, t he food you bought just didn't last and you didn't have money to get more. Never true 10/02/2025 PRAPARE - Transportation Answer Date Re corded In the past 12 months, has l ack of transportation kept you from medical appointments or from getting medications? No 01/2025 In the past 12 months, has l ack of transportation kept you from meetings, work, or from getting things needed for daily living? No 10/02/2025 [facility] Utilities Answer Date Recorded In the past 12 months has th e electric, gas, oil, or water company threatened to shut off services in your home? No 10/02/2025 Abuse Screen Answer Date Recorded Feels Unsafe at Home or Work/School no 10/01/2025 Feels Threatened by Someone no 12/2024 Does Anyone Try to Keep You From Having Contact with Others or Doing Things Outside Your Home? no 10/01/2025 Physical Signs of Abuse Present no 10/01/2025 Housing Stability Answer Date Recorded Current Living Arrangements home 01/2025 Potentially Unsafe Housing Conditions none 10/02/2025 Family and Community Support Answer Jag e Recorded If for any reason you need h elp with day-to-day activities such as bathing, preparing meals, shopping, managing finances, etc., do you get the help you need? I get all the help I need 10/02/2025 How often do you feel lonely or isolated from those around you? Rarely 10/02/2025 Employment Answer Date Recorded Do you want help finding or keeping work or a job? I do not need or want help 10/02/2025 Disabilities Answer Date Recorded Difficulty Concentrating, Remembering or Making Decisions no 10/01/2025 Difficulty Managing Errands Independently yes 10/01/2025 Education Answer Date Recorded Do you want help with school or training? For example, starting or completing job training or getting a high school diploma, GED or equivalent No 10/02/2025 Preferred Language [place] 10/02/2025 PHQ-2 Answer Date Recorded Patient Health Questionnaire-2 Score 0 10/02/2025 Comments No Sex and Gender Information Value Date Recorded Sex Assigned at Not on file Legal Sex Female 10:08 AM EDT Gender Identity Not on file Sexual Orientation Not on file documented as of this encounter Last Filed Vital Signs Vital Sign Reading Time Taken Comments Blood Pressure 116/75 10/05/2025 10:40 AM EST Pulse 80 10/05/2025 3:39 PM EST Temperature 36.8 C (98.3 F) 10/05/2025 10:40 AM EST Respiratory Rate 17 10/05/2025 3:39 PM EST Oxygen Saturation 97% 10/05/2025 9:00 AM EST Inhaled Oxygen Concentration - - Weight 92.7 kg (204 lb 4.8 oz) 10/01/2025 5:52 A M EDT Height 167.6 cm (5' 6 ) 09/30/2025 9:56 PM EDT Body Mass Index 32.97 09/30/2025 9:56 PM EDT documented in this encounter Functional Status * Over the past 2 weeks, how often have you been bothered by any of the following problems? Question Answer Date of Assessment Author Patient Health Questionnaire -2 Score 0 10/02/2025 10:41 AM EST Maura Calvillo RN * Calculated C-SSRS Risk Score (Lifetime/Recent) Answer Date of Assessment Author No Risk Indicated 09/30/2025 9:59 PM EDT Shayla Head RN * [place] Suicide Severity Rating Scale (Screener/Recent Self-Report) Question Answer Date of Assessment Author 1. Wish to be (Past 1 Month) No 025 9:59 PM EDT Nicho Head RN 2. Non-Specific Active Suici willy Thoughts (Past 1 Month) No 09/30/2025 9:59 PM EDT Nicho Head RN 6. Suicidal Behavior (Lifetime) No 9:59 PM EDT Nicho Head RN * Question Answer Date of Assessment Author Little interest or pleasure in doing things Not at all 10/02/2025 10:41 AM Maura Cannon RN Feeling down, depressed, or hopeless Not at all 10/02/2025 10:41 AM Maura Cannon RN documented as of this encounter Discharge Summaries * Baylee Sesay PA-C - 10/05/2025 6:04 PM EST Images from the original note were not included. [facility] Medicine Services ELOPEMENT AGAINST MEDICAL ADVICE Patient Name: Linda Arteaga : 1960 Date of Admission: 09/30/2025 Date of Elopement: 10/05/2025 Primary Care Physician: Michael Colón MD Consults Date and Time Order Name Status Description 10/01/2025 3:00 AM Inpatient Gastroenterology Consult Completed Hospital Course Presenting Problem: COPD exacerbation [J44.1] Respiratory failure [J96.90] Active Hospital Problems Diagnosis POA ??? COPD exacerbation [J44.1] Yes ??? Respiratory failure [J96.90] Yes Resolved Hospital Problems No resolved problems to display. Hospital Course: Linda Arteaga is a 65 y.o. female with history of chronic pancreatitis, COPD on 2.5 L nasal cannula baseline, A-fib on Xarelto, prior CVA, CAD status post PCI, HTN, HLD, CKD, anxiety, FLACO noncompliant with CPAP, hypothyroidism, GERD, chronic pain, prior tobacco use disorder, polysubstance use disorder (THC, cocaine), obesity, who presented for evaluation of SOA, abdominal pain, melena. She was managed with BiPAP (weaned to baseline O2) and completed a course of ceftriaxone and doxycycline for multifocal pneumonia. During the admission, she had an episode of toxic and metabolic encephalopathy attributed to polysubstance use and metabolic derangements, which resolved with supportive care. She was evaluated for gastrointestinal bleeding due to melena and abdominal pain; hemoglobin remained stable, and GI recommended outpatient EGD, with inpatient management including PPI and serial monitoring. Acute on chronic pancreatitis was managed symptomatically, and Creon was increased for ongoing steatorrhea. Electrolyte disturbances (hypokalemia, hypomagnesemia) and risk for refeeding syndrome were addressed with replacement and thiamine supplementation. Her antihypertensives (lisinopril, furosemide) were held due to hypotension and acute kidney injury, which improved with IV fluids. Xarelto was temporarily held for concern of GI bleeding and later resumed; she was transitioned off heparin drip back to Xarelto prior to discharge. Discharge cancelled 10/05/25 due to K+ 5.5 --> 5.8. Recommended patient stay overnight for cardiac monitoring due to risk of cardiac arrhythmia and potential a/w hyperkalemia. Patient states she understands the risks. Patient left AMA prior to completion of evaluation and management Day of Discharge HPI: Patient seen and examined this morning. No visitors at bedside. Weaned to baseline 2.5 L NC withoutdifficulty. Labs resulted this afternoon with K+ 5.5 and 5.8 on subsequent STAT repeat. Discussed need for cardiac monitoring inpatient due to risk of cardiac arrhythmia and potential a/w hyperkalemia. Patient states she understands these risks and would like to proceed with going home. Vital Signs: Temp: [98.1 ??F (36.7 ??C)-98.8 ??F (37.1 ??C)] 98.3 ??F (36.8 ??C) Heart Rate: [62-95] 80 Resp: [14-20] 17 BP: (88-125)/(57-97) 116/75 Physical Exam (if applicable): Constitutional: Chronically ill appearing female sitting on EOB in NAD Respiratory: Diminished BS bilaterally, nonlabored respirations on 2.5 L NC Cardiovascular: RRR, no murmurs Gastrointestinal: Positive bowel sounds, soft, nontender, nondistended Musculoskeletal: No bilateral ankle edema Psychiatric: Appropriate affect, cooperative Neurologic: Alert, oriented, ORELLANA spontaneously, speech clear Skin: No rashes on exposed skin Discharge Details Discharge Disposition: Patient left AMA prior to completion of evaluation and management, therefore discharge planning remains incomplete Follow up with PCP and GI previously arranged. No future appointments. Additional Instructions for the Follow-ups that You Need to Schedule Ambulatory Referral to Home Health As directed Face to Face Visit Date: 10/03/2025 Follow-up provider for Plan of Care?: I treated the patient in an acute care facility and will not continue treatment after discharge. Follow-up provider: MICHAEL COLÓN [[id number]] Reason/Clinical Findings: Below baseline ambulation and ADLs Describe mobility limitations that make leaving home difficult: Impaired mobility, gait, strength, and endurance Nursing/Therapeutic Services Requested: Long Term Physical Therapy Occupational Therapy detention orders: COPD management PT orders: Gait Training Therapeutic exercise Transfer training Strengthening Home safety assessment Weight Bearing Status: Full Weight Bearing Occupational orders: Activities of daily living Home safety assessment Strengthening Baylee Sesay PA-C 10/05/25 Cosigned by Trudy Bolanos DO at 10/05/2025 7:14 PM EST Associated attestation - Trudy Bolanos, DO - 10/05/2025 7:14 PM EST I have reviewed this documentation and agree. documented in this encounter Discharge Instructions * Attachments The following attachments cannot be sent through Care Everywhere. * Chronic Obstructive Pulmonary Disease Exacerbation ([place]) * Aspirin and Your Heart: What to Know ([place]) * Pancrelipase Capsules ([place]) * Thiamine Tablets ([place]) * Prednisone Tablets ([place]) * Community-Acquired Pneumonia Adult ([place]) documented in this encounter Medications at Time of Discharge acetaminophen (TYLENOL) 325 MG tablet Take 2 tablets by mouth Every 6 (Six) Hours As Needed for Mild Pain . 08/02/2020 albuterol (PROVENTIL) (2.5 MG/3ML) 0.083% nebulizer solution Take 2.5 mg by nebulization Every 6 (Six) Hours As Needed for Wheezing. albuterol sulfate HFA 108 (90 Base) MCG/ACT inhaler Inhale 2 puffs Every 4 (Four) Hours As Needed for Wheezing. ALPRAZolam (XANAX) 1 MG tablet Take 1 tablet by mouth 2 (Two) Times a Day As Needed for Anxiety. aspirin 81 MG EC tablet Take 1 tablet by mouth Daily. 30 tablet 10/06/2025 atorvastatin (LIPITOR) 40 MG tablet Take 1 tablet by mouth Every Night. 30 tablet 08/04/2017 docusate sodium 100 MG capsuleIndicatio ns:Constipation Take 100 mg by mouth 2 (Two) Times a Day As Needed for Constipation. Indications: Constipation 08/02/2020 DULoxetine (CYMBALTA) 60 MG capsule Take 1 capsule by mouth 2 (Two) Times a Day. ferrous sulfate 324 (65 Fe) MG tablet delayed-release EC tablet Take 1 tablet by mouth 2 (Two) Times a Day With Meals. furosemide (LASIX) 20 MG tablet Take 1 tablet by mouth Daily. gabapentin (NEURONTIN) 600 MG tablet Take 1 tablet by mouth 2 (Two) Times a Day. 04/07/2023 levothyroxine (SYNTHROID, LEVOTHROID) 100 MCG tablet Take 1 tablet by mouth Every Morning. 30 tablet 3 05/07/2023 lisinopril (PRINIVIL,ZESTRI L) 5 MG tablet Take 1 tablet by mouth Daily. 10/05/2025 magnesium oxide (MAG-OX) 400 MG tablet Take 1 tablet by mouth 2 (Two) Times a Day. metFORMIN (GLUCOPHAGE) 1000 MG tablet Take 1 tablet by mouth 2 (Two) Times a Day With Meals. metoprolol succinate XL (TOPROL-XL) 25 MG 24 hr tablet Take 0.5 tablets by mouth Daily. 15 tablet 10/06/2025 montelukast (SINGULAIR) 10 MG tablet Take 1 tablet by mouth Every Night. 05/11/2014 nicotine (NICODERM CQ) 14 MG/24HR patch Place 1 patch on the skin as directed by provider Daily. 30 patch 10/06/2025 pancrelipase, Cmp-Ezsb-Srmm, (CREON) 02625-29957 units capsule delayed-release particles capsule Take 1 capsule by mouth 3 (Three) Times a Day With Meals. 90 capsule 10/05/2025 pantoprazole (PROTONIX) 40 MG EC tablet Take 1 tablet by mouth 2 (Two) Times a Day. 60 tablet 10/05/2025 polyethylene glycol (MIRALAX) 17 g packet Take 17 g by mouth Daily. 08/03/2020 potassium chloride 10 MEQ CR tablet Take 1 tablet by mouth Daily. 11/28/2023 QUEtiapine (SEROquel) 50 MG tablet Take 1 tablet by mouth Every Night. 02/20/2023 ranolazine (RANEXA) 500 MG 12 hr tablet Take 1 tablet by mouth 2 (Two) Times a Day. rOPINIRole (REQUIP) 0.25 MG tablet Take 1 tablet by mouth Every Night. 04/07/2023 thiamine (VITAMIN B1) 100 MG tablet Take 1 tablet by mouth Daily. 30 tablet 10/05/2025 traZODone (DESYREL) 100 MG tablet Take 1 tablet by mouth Every Night. 30 tablet 08/02/2020 verapamil SR (CALAN-SR) 120 MG CR tablet Take 1 tablet by mouth 2 (Two) Times a Day. Xarelto 20 MG tablet Take 1 tablet by mouth Daily With Dinner. Pt to hold (1) week prior to procedure per Dr. Kearney 04/08/2023 predniSONE (DELTASONE) 20 MG tablet Take 1 tablet by mouth Daily With Breakfast for 1 dose. 1 tablet 10/06/2025 documented as of this encounter Progress Notes * Trudy Bolanos DO - 10/05/2025 1:11 PM EST Enter Query Response Below Query Response: PNA, unsure if bacterial Electronically signed by Trudy Bolanos DO, 10/05/25, 1:11 PM EST. If applicable, please update the problem list. * Roc Malcolm MD - 10/04/2025 9:24 AM EST Images from the original note were not included. [facility] Medicine Services PROGRESS NOTE Patient Name: Linda Arteaga : 1960 Date of Admission: 09/30/2025 Primary Care Physician: Michael Colón MD Subjective Subjective CC: COPD exacerbation HPI: Weaned to 3L NC. Had BM. Shortness of breath improving, cough starting to improve. Reports epigastric pain. No nausea or vomiting. Tolerating diet. Objective Objective Vital Signs: Temp: [97.7 ??F (36.5 ??C)-98.2 ??F (36.8 ??C)] 98 ??F (36.7 ??C) Heart Rate: [80-109] 92 Resp: [18-22] 18 BP: (97-127)/(85-103) 97/85 Flow (L/min) (Oxygen Therapy): [2.5-4] 4 Physical Exam: Constitutional: No acute distress, awake, alert, obese HENT: NCAT, mucous membranes moist Respiratory: Diminished in the bilateral bases, otherwise clear, respiratory effort normal Cardiovascular: IRIR, HR 90s Gastrointestinal: Positive bowel sounds, soft, nontender, nondistended Musculoskeletal: No bilateral ankle edema Psychiatric: Appropriate affect, cooperative Neurologic: Oriented x 3, strength symmetric in all extremities, Cranial Nerves grossly intact to confrontation, speech clear Skin: No rashes Results Reviewed: LAB RESULTS: Lab 10/03/25 0725 10/02/25 0416 10/01/25 1937 10/01/25 1619 10/01/25 0614 10/01/25 0613 09/30/25 2349 09/30/25 2203 WBC -- 12.58* -- 7.28 10.60 -- -- 11.01* HEMOGLOBIN 13.0 12.8 12.8 -- 13.4 13.7 14.6 -- -- 13.0 HEMATOCRIT 42.2 40.6 40.6 -- 44.5 44.4 45.3 -- -- 40.5 PLATELETS -- 215 -- 217 218 -- -- 232 NEUTROS ABS -- 9.80* -- 6.41 8.80* -- -- 7.63* IMMATURE GRANS (ABS) -- 0.05 -- 0.03 0.04 -- -- 0.04 LYMPHS ABS -- 1.96 -- 0.75 1.44 -- -- 2.41 MONOS ABS -- 0.68 -- 0.08* 0.22 -- -- 0.57 EOS ABS -- 0.07 -- 0.00 0.07 -- -- 0.30 MCV -- 94.4 -- 97.6* 94.6 -- -- 93.1 CRP -- 0.95* -- -- 1.89* -- -- -- LACTATE -- -- -- -- -- 1.8 -- -- PROTIME -- -- 13.9 -- -- -- -- -- APTT -- -- 20.3* -- -- -- -- -- HSTROP T -- -- -- -- -- -- 10 9 Lab 10/03/25 0725 10/02/25 0416 10/01/25 1619 10/01/25 0614 09/30/25 2203 SODIUM 139 139 -- 137 137 POTASSIUM 4.4 3.9 4.1 3.7 3.2* CHLORIDE 103 101 -- 95* 95* CO2 26.0 26.5 -- 26.5 28.8 ANION GAP 10.0 11.5 -- 15.5* 13.2 BUN 21.2 13.2 -- 15.5 18.6 CREATININE 0.88 0.87 -- 1.16* 1.29* EGFR 73.0 74.0 -- 52.4* 46.2* GLUCOSE 92 111* -- 124* 104* CALCIUM 8.5* 8.5* -- 8.5* 8.5* MAGNESIUM 1.6 2.1 -- 1.9 1.3* PHOSPHORUS -- 4.2 -- 5.7* -- Lab 09/30/25 2203 TOTAL PROTEIN 6.9 ALBUMIN 3.9 GLOBULIN 3.0 ALT (SGPT) 6 AST (SGOT) 15 BILIRUBIN 0.5 ALK PHOS 89 LIPASE 73* Lab 10/01/25 1937 10/01/25 0614 09/30/25 2349 09/30/25 2203 PROBNP -- 319.0 -- 300.0 HSTROP T -- -- 10 9 PROTIME 13.9 -- -- -- INR 1.01 -- -- -- Lab 10/01/25 0907 10/01/25 0449 09/30/25 2211 PH, ARTERIAL 7.339* 7.316* -- PCO2, ARTERIAL 55.2* 61.8* -- PO2 ART 86.8 70.8* -- FIO2 45 80 40 HCO3 ART 29.6* 31.5* -- BASE EXCESS ART 2.6* 3.6* -- CARBOXYHEMOGLOBIN 2.5* 3.7* -- CARBOXYHEMOGLOBIN (VENOUS) -- -- 6.7 Brief Urine Lab Results (Last result in the past 365 days) Color Clarity Blood Leuk Est Nitrite Protein CREAT Urine HCG 10/01/25 0639 Yellow Clear Negative Moderate (2+) Negative Negative Microbiology Results Abnormal Procedure Component Value - Date/Time MRSA Screen, PCR (Inpatient) - Swab, Nares [[id number]] (Abnormal) Collected: 10/01/25 1036 Lab Status: Final result Specimen: Swab from Nares Updated: 10/01/25 1207 MRSA PCR Positive Narrative: The negative predictive value of this diagnostic test is high and should only be used to consider de-escalating anti-MRSA therapy. A positive result may indicate colonization with MRSA and must be correlated clinically. FL Video Swallow With Speech Single Contrast Result Date: 10/03/2025 FL VIDEO SWALLOW W SPEECH SINGLE-CONTRAST, FL LIMITED UGI FOR MBS REFLUX SINGLE- CONTRAST Date of Exam: 10/03/2025 10:12 AM EST Indication: dysphagia. Comparison: None available. Technique: The speech pathologist administered food and/or liquid mixed with barium to the patient with cine/video imaging. Imaging assistance was provided to the speech pathologist and an image was saved. Fluoroscopic Time: 30 seconds Number of Images: 9 associated fluoroscopic loops were saved Findings: No aspiration was seen during fluoroscopic guided modified barium swallowing series. A limited view of the esophagus with the patient in the seated lateral position demonstrated a prominent cricopharyngeus muscle, and mild gastroesophageal reflux to the level of the midesophagus. There was no evidence of a focal esophageal stricture. Please see speech therapy report for full details and recommendations. Impression: Impression: Fluoroscopy provided for a modified barium swallow, and limited upper GI series. No aspiration was seen during swallowing evaluation. Limited upper GI series demonstrated mildgastroesophageal reflux, and a prominent cricopharyngeus muscle. Please see speech therapy report for full details and recommendations. Report dictated by: Maru Lim PA-c I have personally reviewed this case and agree with the findings above: Electronically Signed: Primo Randall MD 10/03/2025 3:55 PM EST Workstation ID: [id number] FL Limited Ugi For Mbs Reflux Single-Contrast Result Date: 10/03/2025 FL VIDEO SWALLOW W SPEECH SINGLE-CONTRAST, FL LIMITED UGI FOR MBS REFLUX SINGLE- CONTRAST Date of Exam: 10/03/2025 10:12 AM EST Indication: dysphagia. Comparison: None available. Technique: The speech pathologist administered food and/or liquid mixed with barium to the patient with cine/video imaging. Imaging assistance was provided to the speech pathologist and an image was saved. Fluoroscopic Time: 30 seconds Number of Images: 9 associated fluoroscopic loops were saved Findings: No aspiration was seen during fluoroscopic guided modified barium swallowing series. A limited view of the esophagus with the patient in the seated lateral position demonstrated a prominent cricopharyngeus muscle, and mild gastroesophageal reflux to the level of the midesophagus. There was no evidence of a focal esophageal stricture. Please see speech therapy report for full details and recommendations. Impression: Impression: Fluoroscopy provided for a modified barium swallow, and limited upper GI series. No aspiration was seen during swallowing evaluation. Limited upper GI series demonstrated mildgastroesophageal reflux, and a prominent cricopharyngeus muscle. Please see speech therapy report for full details and recommendations. Report dictated by: Maru Lim PA-c I have personally reviewed this case and agree with the findings above: Electronically Signed: Primo aRndall MD 10/03/2025 3:55 PM EST Workstation ID: [id number] Results for orders placed during the hospital encounter of 07/31/17 Transthoracic Echocardiogram 2D Complete 08/01/2017 2:29 PM Interpretation Summary ?? Left ventricular systolic function is normal. Estimated EF = 65%. ?? Left ventricular wall thickness is consistent with mild concentric hypertrophy. ?? The cardiac valves are anatomically and functionally normal. ?? Calculated right ventricular systolic pressure from tricuspid regurgitation is 38 mmHg. I have personally reviewed the therapy plans: [] PT/OT/ ST Therapy Plans Current medications: Scheduled Meds:aspirin, 81 mg, Oral, Daily atorvastatin, 40 mg, Oral, Nightly budesonide-formoterol, 2 puff, Inhalation, BID - RT cefTRIAXone, 2,000 mg, Intravenous, Q24H DULoxetine, 60 mg, Oral, Q12H [Held by provider] furosemide, 20 mg, Oral, Daily gabapentin, 600 mg, Oral, Q12H guaiFENesin, 1,200 mg, Oral, Q12H insulin lispro, 2-7 Units, Subcutaneous, 4x Daily AC & at Bedtime ipratropium-albuterol, 3 mL, Nebulization, 4x Daily - RT levothyroxine, 100 mcg, Oral, Q AM [Held by provider] lisinopril, 5 mg, Oral, Daily magnesium oxide, 400 mg, Oral, BID metoprolol succinate XL, 12.5 mg, Oral, Daily nicotine, 1 patch, Transdermal, Q24H pancrelipase ([id number]-Cafl-[id number]), 12,000 units of lipase, Oral, TID With Meals pantoprazole, 40 mg, Intravenous, Q12H [START ON 10/05/2025] predniSONE, 20 mg, Oral, Daily With Breakfast predniSONE, 40 mg, Oral, Daily With Breakfast QUEtiapine, 50 mg, Oral, Nightly ranolazine, 500 mg, Oral, BID rivaroxaban, 20 mg, Oral, Daily With Dinner sodium chloride, 10 mL, Intravenous, Q12H thiamine (B-1) IV, 200 mg, Intravenous, Daily traZODone, 100 mg, Oral, Nightly verapamil SR, 120 mg, Oral, BID Continuous Infusions:lactated ringers, 50 mL/hr PRN Meds:. acetaminophen OR acetaminophen OR acetaminophen ALPRAZolam senna-docusate sodium AND polyethylene glycol AND bisacodyl AND bisacodyl Calcium Replacement - Follow Nurse / BPA Driven Protocol dextrose dextrose glucagon (human recombinant) HYDROmorphone Magnesium Standard Dose Replacement - Follow Nurse / BPA Driven Protocol naloxone nitroglycerin oxyCODONE Phosphorus Replacement - Follow Nurse / BPA Driven Protocol Potassium Replacement - Follow Nurse / BPA Driven Protocol sodium chloride sodium chloride Assessment & Plan Assessment & Plan Active Hospital Problems Diagnosis POA COPD exacerbation [J44.1] Yes Respiratory failure [J96.90] Yes Resolved Hospital Problems No resolved problems to display. Brief Hospital Course to date: Linda Arteaga is a 65 y.o. female with history of chronic pancreatitis, COPD on 3 L nasal cannula baseline, A-fib on Xarelto, prior CVA, CAD status post PCI, HTN, HLD, CKD, anxiety, FLACO noncompliant with CPAP, hypothyroidism, GERD, chronic pain, prior tobacco use disorder, polysubstance use disorder (THC, cocaine), obesity, who presented for evaluation of SOA, abdominal pain, melena. CTA chest w no evidence of PE, but did show patchy bilateral airspace disease - possible multifocal PNA, CAD. CT a/p with contrast showed no acute abnormality, did show colonic diverticulosis, atherosclerosis, DJD. Admission labs notable for negative respiratory PCR, UDS positive for THC, cocaine, opiates, b enzodiazepines, WBC 11, lipase 73, proBNP 300, HS troponin 9 --> 10, Cr 1.29, K 3.2, Mg 1.3, ABG7.3/61/70. This patient's problems and plans were partially entered by my partner and updated as appropriate by me 10/04/25. COPD w exacerbation Multifocal PNA Acute on chronic hypoxic respiratory failure improving FLACO non-compliant w CPAP -S/p BiPAP -Wean O2 support as tolerated, goal sats 88-92% -Continue inhaler equivalents, scheduled DuoNebs -Continue steroids -Continue mucinex, IS, OPEP -CTX, doxy to complete course; MRSA screen+, but pt already significantly improved and doxy does have some coverage; suspect MRSA colonization Combined toxic and metabolic encephalopathy, resolved -In setting of above + polysubtance use -UDS positive for THC, cocaine, opiates, benzodiazepines -Treat as above + supportive care Concern for GIB with melanotic stool, resolved Acute on chronic pancreatitis History of esophageal stricture, Almaguer's esophagus Abdominal pain in setting of above + cocaine use (possible low-level ischemia) -GI consulted and recommended EGD as an outpatient -PPI twice daily -Creon -FRUIT CHECKER followed, placed on mechanical ground textures, thin liquids A fib -Continue Xarelto -Metoprolol, Verapamil Elevated Cr in setting of CKD -Prior Cr 0.97 in 2022; on admission was 1.29--> 1 after IVF -Monitor Hypokalemia, hypomagnesemia Risk for refeeding syndrome -Replace per protocol -Empiric thiamine Prolonged QT in setting of electrolyte derangements, resolved -Replaced electrolytes, repeat QTc 472 on 10/02 HTN, now with hypotension -Hold Lasix, lisinopril -Will give small amount of IVF today DM2-SSI, glucose checks, hypoglycemia protocol Tobacco use disorder-NRT, counseled on cessation HLD-statin CAD status post PCI-continue ASA Hypothyroidism-continue Synthroid Mood disorder-resume duloxetine, trazodone, cymbalta given Qtc now normalized Chronic pain-given AMS, hold off on gabapentin Expected Discharge Location and Transportation: Home with home health, potentially tomorrow if BP improved Expected Discharge Expected Discharge Date: 10/04/2025; Expected Discharge Time: VTE Prophylaxis: Pharmacologic & mechanical VTE prophylaxis orders are present. AM-PAC 6 Clicks Score (PT): 17 (10/04/25 0800) CODE STATUS: Code Status and Medical Interventions: CPR (Attempt to Resuscitate); Full Support Ordered at: 10/01/25 0807 Code Status (Patient has no pulse and is not breathing): CPR (Attempt to Resuscitate) Medical Interventions (Patient has pulse or is breathing): Full Support Level Of Support Discussed With: Patient Roc Malcolm MD 10/04/25 * Riddhi Can MSW - 10/03/2025 3:15 PM EST Continued Stay Note Shaista Patient Name: Linda Arteaga Today's Date: 10/03/2025 Admit Date: 09/30/2025 Plan: home with Discharge Plan Row Name 10/03/25 1514 Plan Plan Comments Met with the patient and gave her the socil determinent of health information and explained the [facility] phone number and explained to call them for apartments. Row Name 10/03/25 1343 Plan Plan home with HH Patient/Family in Agreement with Plan yes Plan Comments CM spoke with patient over the phone. Patient agrees to HH at [place]. CM informed the nurse that [facility] in [facility] is a resource the patient can contact for housing and rental assistance. CM spoke with Kirstie at [facility] and nurse is to call Kirstie at [phone] when patient is discharged. CM will continue to follow. Final Discharge Disposition Code 06 - home with home health care Discharge Codes No documentation. Expected Discharge Date and Time Expected Discharge Date Expected Discharge Time Oct 04, 2025 FERNANDO Panchal * Britney Morrell RD - 10/03/2025 1:00 PM EST Nutrition Services Patient Name: Linda Arteaga Date of : 1960 Admit Date: 09/30/2025 Patient screened for possible pressure injury. Chart reviewed. No pressure injury stage 2 or greater noted per documentation at this time. RDN following per protocol. Available via consult, thank you. Electronically signed by: Britney Morrell RD 10/03/25 13:01 EST * Sabrina Stephens MD - 10/03/2025 8:48 AM EST Images from the original note were not included. [facility] Medicine Services PROGRESS NOTE Patient Name: Linda Arteaga : 1960 Date of Admission: 09/30/2025 Primary Care Physician: Michael Colón MD Subjective Subjective CC: COPD exacerbation HPI: Weaned to 4L NC. Reports feeling dramatically better today. Patient had swallow study with pending results this morning Objective Objective Vital Signs: Temp: [97.9 ??F (36.6 ??C)-98.5 ??F (36.9 ??C)] (P) 98.5 ??F (36.9 ??C) Heart Rate: [78-136] (P) 92 Resp: [16-20] (P) 18 BP: (103-131)/(70-93) (P) 101/73 Flow (L/min) (Oxygen Therapy): [4] (P) 4 Physical Exam: Constitutional: No acute distress, awake, alert HENT: NCAT, mucous membranes moist Respiratory: Improved aeration, scattered wheezing, respiratory effort normal Cardiovascular: IRIR, HR 100 Gastrointestinal: Positive bowel sounds, soft, nontender, nondistended Musculoskeletal: No bilateral ankle edema Psychiatric: Appropriate affect, cooperative Neurologic: Oriented x 3, strength symmetric in all extremities, Cranial Nerves grossly intact to confrontation, speech clear Skin: No rashes Results Reviewed: LAB RESULTS: Lab 10/03/25 0725 10/02/25 0416 10/01/25 1937 10/01/25 1619 10/01/25 0614 10/01/25 0613 09/30/25 2349 09/30/25 2203 WBC -- 12.58* -- 7.28 10.60 -- -- 11.01* HEMOGLOBIN 13.0 12.8 12.8 -- 13.4 13.7 14.6 -- -- 13.0 HEMATOCRIT 42.2 40.6 40.6 -- 44.5 44.4 45.3 -- -- 40.5 PLATELETS -- 215 -- 217 218 -- -- 232 NEUTROS ABS -- 9.80* -- 6.41 8.80* -- -- 7.63* IMMATURE GRANS (ABS) -- 0.05 -- 0.03 0.04 -- -- 0.04 LYMPHS ABS -- 1.96 -- 0.75 1.44 -- -- 2.41 MONOS ABS -- 0.68 -- 0.08* 0.22 -- -- 0.57 EOS ABS -- 0.07 -- 0.00 0.07 -- -- 0.30 MCV -- 94.4 -- 97.6* 94.6 -- -- 93.1 CRP -- 0.95* -- -- 1.89* -- -- -- LACTATE -- -- -- -- -- 1.8 -- -- PROTIME -- -- 13.9 -- -- -- -- -- APTT -- -- 20.3* -- -- -- -- -- HSTROP T -- -- -- -- -- -- 10 9 Lab 10/03/25 0725 10/02/25 0416 10/01/25 1619 10/01/25 0614 09/30/25 220 SODIUM 139 139 -- 137 137 POTASSIUM 4.4 3.9 4.1 3.7 3.2* CHLORIDE 103 101 -- 95* 95* CO2 26.0 26.5 -- 26.5 28.8 ANION GAP 10.0 11.5 -- 15.5* 13.2 BUN 21.2 13.2 -- 15.5 18.6 CREATININE 0.88 0.87 -- 1.16* 1.29* EGFR 73.0 74.0 -- 52.4* 46.2* GLUCOSE 92 111* -- 124* 104* CALCIUM 8.5* 8.5* -- 8.5* 8.5* MAGNESIUM 1.6 2.1 -- 1.9 1.3* PHOSPHORUS -- 4.2 -- 5.7* -- Lab 09/30/25 2203 TOTAL PROTEIN 6.9 ALBUMIN 3.9 GLOBULIN 3.0 ALT (SGPT) 6 AST (SGOT) 15 BILIRUBIN 0.5 ALK PHOS 89 LIPASE 73* Lab 10/01/25 1937 10/01/25 0614 09/30/25 2349 09/30/25 2203 PROBNP -- 319.0 -- 300.0 HSTROP T -- -- 10 9 PROTIME 13.9 -- -- -- INR 1.01 -- -- -- Lab 10/01/25 0907 10/01/25 0449 09/30/25 2211 PH, ARTERIAL 7.339* 7.316* -- PCO2, ARTERIAL 55.2* 61.8* -- PO2 ART 86.8 70.8* -- FIO2 45 80 40 HCO3 ART 29.6* 31.5* -- BASE EXCESS ART 2.6* 3.6* -- CARBOXYHEMOGLOBIN 2.5* 3.7* -- CARBOXYHEMOGLOBIN (VENOUS) -- -- 6.7 Brief Urine Lab Results (Last result in the past 365 days) Color Clarity Blood Leuk Est Nitrite Protein CREAT Urine HCG 10/01/25 0639 Yellow Clear Negative Moderate (2+) Negative Negative Microbiology Results Abnormal Procedure Component Value - Date/Time MRSA Screen, PCR (Inpatient) - Swab, Nares [[id number]] (Abnormal) Collected: 10/01/25 1036 Lab Status: Final result Specimen: Swab from Nares Updated: 10/01/25 1207 MRSA PCR Positive Narrative: The negative predictive value of this diagnostic test is high and should only be used to consider de-escalating anti-MRSA therapy. A positive result may indicate colonization with MRSA and must be correlated clinically. No radiology results from the last 24 hrs Results for orders placed during the hospital encounter of 07/31/17 Transthoracic Echocardiogram 2D Complete 08/01/2017 2:29 PM Interpretation Summary ?? Left ventricular systolic function is normal. Estimated EF = 65%. ?? Left ventricular wall thickness is consistent with mild concentric hypertrophy. ?? The cardiac valves are anatomically and functionally normal. ?? Calculated right ventricular systolic pressure from tricuspid regurgitation is 38 mmHg. I have personally reviewed the therapy plans: [] PT/OT/ ST Therapy Plans Current medications: Scheduled Meds:aspirin, 81 mg, Oral, Daily atorvastatin, 40 mg, Oral, Nightly budesonide-formoterol, 2 puff, Inhalation, BID - RT cefTRIAXone, 2,000 mg, Intravenous, Q24H doxycycline, 100 mg, Oral, Q12H DULoxetine, 60 mg, Oral, Q12H [Held by provider] furosemide, 20 mg, Oral, Daily gabapentin, 600 mg, Oral, Q12H guaiFENesin, 1,200 mg, Oral, Q12H insulin lispro, 2-7 Units, Subcutaneous, 4x Daily AC & at Bedtime ipratropium-albuterol, 3 mL, Nebulization, 4x Daily - RT levothyroxine, 100 mcg, Oral, Q AM [Held by provider] lisinopril, 5 mg, Oral, Daily magnesium oxide, 400 mg, Oral, BID pharmacy consult - MTM, , Not Applicable, Daily methylPREDNISolone sodium succinate, 40 mg, Intravenous, Q24H metoprolol succinate XL, 12.5 mg, Oral, Daily nicotine, 1 patch, Transdermal, Q24H pancrelipase ([id number]), 12,000 units of lipase, Oral, TID With Meals pantoprazole, 40 mg, Intravenous, Q12H [Held by provider] predniSONE, 40 mg, Oral, Daily With Breakfast QUEtiapine, 50 mg, Oral, Nightly ranolazine, 500 mg, Oral, BID rivaroxaban, 20 mg, Oral, Daily With Dinner sodium chloride, 10 mL, Intravenous, Q12H thiamine (B-1) IV, 200 mg, Intravenous, Daily traZODone, 100 mg, Oral, Nightly verapamil SR, 120 mg, Oral, BID Continuous Infusions:Pharmacy To Dose:, PRN Meds:. acetaminophen OR acetaminophen OR acetaminophen ALPRAZolam senna-docusate sodium AND polyethylene glycol AND bisacodyl AND bisacodyl Calcium Replacement - Follow Nurse / BPA Driven Protocol dextrose dextrose glucagon (human recombinant) HYDROmorphone Magnesium Standard Dose Replacement - Follow Nurse / BPA Driven Protocol naloxone nitroglycerin oxyCODONE Pharmacy To Dose: Phosphorus Replacement - Follow Nurse / BPA Driven Protocol Potassium Replacement - Follow Nurse / BPA Driven Protocol sodium chloride sodium chloride Assessment & Plan Assessment & Plan Active Hospital Problems Diagnosis POA COPD exacerbation [J44.1] Yes Respiratory failure [J96.90] Yes Resolved Hospital Problems No resolved problems to display. Brief Hospital Course to date: Linda Arteaga is a 65 y.o. female with history of chronic pancreatitis, COPD on 3 L nasal cannula baseline, A-fib on Xarelto, prior CVA, CAD status post PCI, HTN, HLD, CKD, anxiety, FLACO noncompliant with CPAP, hypothyroidism, GERD, chronic pain, prior tobacco use disorder, polysubstance use disorder (THC, cocaine), obesity, who presented for evaluation of SOA, abdominal pain, melena. CTA chest w no evidence of PE, but did show patchy bilateral airspace disease - possible multifocal PNA, CAD. CT a/p with contrast showed no acute abnormality, did show colonic diverticulosis, atherosclerosis, DJD. Admission labs notable for negative respiratory PCR, UDS positive for THC, cocaine, opiates, b enzodiazepines, WBC 11, lipase 73, proBNP 300, HS troponin 9 --> 10, Cr 1.29, K 3.2, Mg 1.3, ABG7.3/61/70. Patient is new to me today. COPD w exacerbation Multifocal PNA Acute on chronic hypoxic respiratory failure improving FLACO non-compliant w CPAP -S/p BiPAP -On 4 L of nasal cannula this morning. -Wean O2 support as tolerated, goal sats 88-92% -Continue inhaler equivalents, scheduled DuoNebs -Continue steroids -Continue mucinex, IS, OPEP -Continue CTX, doxy to complete course; MRSA screen+, but pt already significantly improved and doxy does have some coverage; suspect MRSA colonization -Swallow study with pending results. Combined toxic and metabolic encephalopathy, resolved -In setting of above + polysubtance use -UDS positive for THC, cocaine, opiates, benzodiazepines -Treat as above + supportive care Concern for GIB with melanotic stool, resolved Acute on chronic pancreatitis History of esophageal stricture, Almaguer's esophagus Abdominal pain in setting of above + cocaine use (possible low-level ischemia) -GI consulted and recommended EGD as an outpatient -PPI twice daily - Patient had swallow study with pending results this morning. -Creon A fib -On heparin drip, change back to Xarelto today -Metoprolol, Verapamil Elevated Cr in setting of CKD -Prior Cr 0.97 in 2022; on admission was 1.29--> 1 after IVF -Monitor Hypokalemia, hypomagnesemia Risk for refeeding syndrome -Replace per protocol -Empiric thiamine Prolonged QT in setting of electrolyte derangements, resolved -Replaced electrolytes, repeat QTc 472 on 10/02 HTN -Holding lisinopril given elevated creatinine, blood pressure controlled without it currently DM2-SSI, glucose checks, hypoglycemia protocol Tobacco use disorder-NRT, counseled on cessation HLD-statin CAD status post PCI-continue ASA Hypothyroidism-continue Synthroid Mood disorder-resume duloxetine, trazodone, cymbalta given Qtc now normalized Chronic pain-given AMS, hold off on gabapentin Expected Discharge Location and Transportation: Home with home health care pending clinical course and swallow study. Expected Discharge Expected Discharge Date: 10/04/2025; Expected Discharge Time: VTE Prophylaxis: Pharmacologic & mechanical VTE prophylaxis orders are present. AM-PAC 6 Clicks Score (PT): 17 (10/02/251999) CODE STATUS: Code Status and Medical Interventions: CPR (Attempt to Resuscitate); Full Support Ordered at: 10/01/25 0807 Code Status (Patient has no pulse and is not breathing): CPR (Attempt to Resuscitate) Medical Interventions (Patient has pulse or is breathing): Full Support Level Of Support Discussed With: Patient Sabrina Stephens MD 10/03/25 * Carmen Milner MS, RD,TRENT - 10/02/2025 11:06 AM EST Nutrition Services Patient Name: Linda Arteaga Date of : 1960 Admit Date: 09/30/2025 Pt screened per protocol for potential pressure injury. No WOC consult at this time - message sent to RN, plan to assess and determine if need for WOC consult is appropriate. RD will complete nutrition assessment with identification of Stg II PI or greater. Will continue to monitor per protocol. Please consult with urgent nutrition related needs. Thanks. Electronically signed by: Carmen Milner MS, RD,TRENT 10/02/25 11:06 EST * Roc Malcolm MD - 10/02/2025 8:34 AM EST Images from the original note were not included. [facility] Medicine Services PROGRESS NOTE Patient Name: Linda Artegaa : 1960 Date of Admission: 09/30/2025 Primary Care Physician: Michael Colón MD Subjective Subjective CC: COPD exacerbation HPI: Weaned to 4L NC. Reports feeling dramatically better today. Still w SOA, cough. Some chest soreness. No N/V. Abdominal pain back to baseline. Didn't sleep last night. Has her chronic back pain. No BM. No bleeding. Objective Objective Vital Signs: Temp: [97.9 ??F (36.6 ??C)-98.9 ??F (37.2 ??C)] 97.9 ??F (36.6 ??C) Heart Rate: [71-136] 109 Resp: [16-24] 16 BP: (102-121)/(58-88) 113/84 Flow (L/min) (Oxygen Therapy): [4-6] 4 Physical Exam: Constitutional: No acute distress, awake, alert HENT: NCAT, mucous membranes moist Respiratory: Improved aeration, scattered wheezing, respiratory effort normal Cardiovascular: IRIR, HR 100 Gastrointestinal: Positive bowel sounds, soft, nontender, nondistended Musculoskeletal: No bilateral ankle edema Psychiatric: Appropriate affect, cooperative Neurologic: Oriented x 3, strength symmetric in all extremities, Cranial Nerves grossly intact to confrontation, speech clear Skin: No rashes Results Reviewed: LAB RESULTS: Lab 10/02/25 0416 10/01/25 1937 10/01/25 1619 10/01/25 0614 10/01/25 0613 09/30/25 2349 09/30/25 2203 WBC 12.58* -- 7.28 10.60 -- -- 11.01* HEMOGLOBIN 12.8 12.8 -- 13.4 13.7 14.6 -- -- 13.0 HEMATOCRIT 40.6 40.6 -- 44.5 44.4 45.3 -- -- 40.5 PLATELETS 215 -- 217 218 -- -- 232 NEUTROS ABS 9.80* -- 6.41 8.80* -- -- 7.63* IMMATURE GRANS (ABS) 0.05 -- 0.03 0.04 -- -- 0.04 LYMPHS ABS 1.96 -- 0.75 1.44 -- -- 2.41 MONOS ABS 0.68 -- 0.08* 0.22 -- -- 0.57 EOS ABS 0.07 -- 0.00 0.07 -- -- 0.30 MCV 94.4 -- 97.6* 94.6 -- -- 93.1 CRP 0.95* -- -- 1.89* -- -- -- LACTATE -- -- -- -- 1.8 -- -- PROTIME -- 13.9 -- -- -- -- -- APTT -- 20.3* -- -- -- -- -- HSTROP T -- -- -- -- -- 10 9 Lab 10/02/25 0416 10/01/25 1619 10/01/25 0614 09/30/25 2203 SODIUM 139 -- 137 137 POTASSIUM 3.9 4.1 3.7 3.2* CHLORIDE 101 -- 95* 95* CO2 26.5 -- 26.5 28.8 ANION GAP 11.5 -- 15.5* 13.2 BUN 13.2 -- 15.5 18.6 CREATININE 0.87 -- 1.16* 1.29* EGFR 74.0 -- 52.4* 46.2* GLUCOSE 111* -- 124* 104* CALCIUM 8.5* -- 8.5* 8.5* MAGNESIUM 2.1 -- 1.9 1.3* PHOSPHORUS 4.2 -- 5.7* -- Lab 09/30/25 2203 TOTAL PROTEIN 6.9 ALBUMIN 3.9 GLOBULIN 3.0 ALT (SGPT) 6 AST (SGOT) 15 BILIRUBIN 0.5 ALK PHOS 89 LIPASE 73* Lab 10/01/25 1937 10/01/25 0614 09/30/25 2349 09/30/25 2203 PROBNP -- 319.0 -- 300.0 HSTROP T -- -- 10 9 PROTIME 13.9 -- -- -- INR 1.01 -- -- -- Lab 10/01/25 0907 10/01/25 0449 09/30/25 2211 PH, ARTERIAL 7.339* 7.316* -- PCO2, ARTERIAL 55.2* 61.8* -- PO2 ART 86.8 70.8* -- FIO2 45 80 40 HCO3 ART 29.6* 31.5* -- BASE EXCESS ART 2.6* 3.6* -- CARBOXYHEMOGLOBIN 2.5* 3.7* -- CARBOXYHEMOGLOBIN (VENOUS) -- -- 6.7 Brief Urine Lab Results (Last result in the past 365 days) Color Clarity Blood Leuk Est Nitrite Protein CREAT Urine HCG 10/01/25 0639 Yellow Clear Negative Moderate (2+) Negative Negative Microbiology Results Abnormal Procedure Component Value - Date/Time MRSA Screen, PCR (Inpatient) - Swab, Nares [[id number]] (Abnormal) Collected: 10/01/25 1036 Lab Status: Final result Specimen: Swab from Nares Updated: 10/01/25 1207 MRSA PCR Positive Narrative: The negative predictive value of this diagnostic test is high and should only be used to consider de-escalating anti-MRSA therapy. A positive result may indicate colonization with MRSA and must be correlated clinically. XR Chest 1 View Result Date: 10/01/2025 XR CHEST 1 VW Date of Exam: 10/01/2025 6:06 AM EDT Indication: hypoxia. Comparison: CT chest and chest radiograph 09/30/2025 Findings: Right chest port catheter tip terminates near cavoatrial junction. Mild cardiomegaly. Slightly prominent indistinct central vasculature with diffuse increased interstitial opacities radiographically increased from prior comparison. No significant pleural effusion. No pneumothorax. Degenerative related osseous change. Impression: Impression: Increasing diffuse interstitial opacities suspicious for pulmonary edema. Infectious process is possible. Electronically Signed: Rusty Larry MD 10/01/2025 6:55 AM EDT Workstation ID: [id number] CT Abdomen Pelvis With Contrast Result Date: 09/30/2025 CT ABDOMEN PELVIS W CONTRAST Date of Exam: 09/30/2025 10:55 PM EDT Indication: epigastric abd pain.Comparison: 05/05/2023. Technique: Axial CT images were obtained of the abdomen and pelvis following the uneventful intravenous administration of iodinated contrast. Reconstructed coronal and sagittal images were also obtained. Automated exposure control and iterative construction methods were used. Findings: Findings in the chest discussed in a separate report. Interval resolution of previously seen hepatic steatosis. Stable cholecystectomy. The bile ducts, pancreas, spleen, stomach and duodenumappear unremarkable. Adrenal glands are normal. Left kidney is normal. There is a simple cyst at the right kidney measuring 34 mm, unchanged. No hydronephrosis. Urinary bladder is nondistended. Patient is status post hysterectomy. Ovaries are not seen. Appendix is not seen. There is colonic diverticulosis. No small bowel distention. Moderate atherosclerosis. No aneurysm. No ascites, pneumoperitoneum or lymphadenopathy. There is a pain pump in the right flank soft tissues. There is an arthrodesis device at the right SI joint. There is severe productive DJD at the right hip and minimal disease of the left hip. There are moderate spinal degenerative changes. No acute osseous abnormality. Impression: Impression: 1.No acute abdominal or pelvic abnormality. 2.Interval resolution of hepatic steatosis. 3.Colonic diverticulosis. 4.Atherosclerosis. 5.Severe right hip DJD. Electronically Signed: Abraham Stephen MD 09/30/2025 11:57 PM EDT Workstation ID: [id number] CT Angiogram Chest Pulmonary Embolism Result Date: 09/30/2025 CT ANGIOGRAM CHEST PULMONARY EMBOLISM Date of Exam: 09/30/2025 10:55 PM EDT Indication: chest pain.Comparison: Chest radiograph 09/30/[address] 04/28/2023. Technique: Axial CT images were obtained of the chest after the uneventful intravenous administration of iodinated contrast utilizing pulmonary embolism protocol. In addition, a 3-D volume rendered image was created for interpretation.Reconstructed coronal and sagittal images were also obtained. Automated exposure control and iterative construction methods were used. Findings: The thyroid, trachea and esophagus appear within normal limits. Heart size is normal. There are coronary stents and coronary artery calcifications. Mild aortic atherosclerosis. There are calcified mediastinal granulomas. There is no evidence of pulmonaryembolism. No pericardial effusion or mediastinal lymphadenopathy. The lungs are hypoinflated. Thereappears to be interlobular septal thickening and patchy bilateral airspace disease along with peribronchial thickening. These findings could be due to pulmonary edema or multifocal pneumonia. Evaluation is somewhat limited due to expiratory phase required for this type of exam. No acute findings inthe superficial soft tissues. No acute findings in the upper abdomen. Patient is status post cholecystectomy. No acute osseous abnormality. There are mild thoracic degenerative changes. There are old healed right-sided rib fractures. Impression: Impression: 1.No evidence of pulmonary embolism. 2.Hypoinflated lungs with interlobularseptal thickening and patchy bilateral airspace disease. This could be due to pulmonary edema or multifocal pneumonia. 3.Coronary artery disease. Electronically Signed: Abraham Stephen MD 09/30/2025 11:54 PM EDT Workstation ID: [id number] XR Chest 1 View Result Date: 09/30/2025 XR CHEST 1 VW Date of Exam: 09/30/2025 10:13 PM EDT Indication: epigastric abd pain. Comparison: 05/04/2023 Findings: Right chest wall port distal lead tip overlying the right atrium. Enlarged cardiac silhouette. Low lung volumes. Emphysema. No focal airspace opacity, pleural effusion, or pneumothorax. Healed right rib fractures. No acute bone abnormality. Impression: Impression: 1.Emphysema. No acute cardiopulmonary abnormality. Electronically Signed: Abraham Espinosa MD 09/30/2025 10:38 PM EDT Workstation ID: [id number] Results for orders placed during the hospital encounter of 07/31/17 Transthoracic Echocardiogram 2D Complete 08/01/2017 2:29 PM Interpretation Summary ?? Left ventricular systolic function is normal. Estimated EF = 65%. ?? Left ventricular wall thickness is consistent with mild concentric hypertrophy. ?? The cardiac valves are anatomically and functionally normal. ?? Calculated right ventricular systolic pressure from tricuspid regurgitation is 38 mmHg. I have personally reviewed the therapy plans: [] PT/OT/ ST Therapy Plans Current medications: Scheduled Meds:aspirin, 81 mg, Oral, Daily atorvastatin, 40 mg, Oral, Nightly budesonide-formoterol, 2 puff, Inhalation, BID - RT cefTRIAXone, 2,000 mg, Intravenous, Q24H doxycycline, 100 mg, Oral, Q12H DULoxetine, 60 mg, Oral, Q12H [Held by provider] furosemide, 20 mg, Oral, Daily gabapentin, 600 mg, Oral, Q12H guaiFENesin, 1,200 mg, Oral, Q12H insulin lispro, 2-7 Units, Subcutaneous, 4x Daily AC & at Bedtime ipratropium-albuterol, 3 mL, Nebulization, 4x Daily - RT levothyroxine, 100 mcg, Oral, Q AM [Held by provider] lisinopril, 5 mg, Oral, Daily magnesium oxide, 400 mg, Oral, BID pharmacy consult - MTM, , Not Applicable, Daily methylPREDNISolone sodium succinate, 40 mg, Intravenous, Q24H metoprolol succinate XL, 12.5 mg, Oral, Daily nicotine, 1 patch, Transdermal, Q24H pancrelipase (Kur-Ruoc-Hkbs), 12,000 units of lipase, Oral, TID With Meals pantoprazole, 40 mg, Intravenous, Q12H [Held by provider] predniSONE, 40 mg, Oral, Daily With Breakfast QUEtiapine, 50 mg, Oral, Nightly ranolazine, 500 mg, Oral, BID rivaroxaban, 20 mg, Oral, Daily With Dinner sodium chloride, 10 mL, Intravenous, Q12H thiamine (B-1) IV, 200 mg, Intravenous, Daily traZODone, 100 mg, Oral, Nightly verapamil SR, 120 mg, Oral, BID Continuous Infusions:Pharmacy To Dose:, PRN Meds:. acetaminophen OR acetaminophen OR acetaminophen ALPRAZolam senna-docusate sodium AND polyethylene glycol AND bisacodyl AND bisacodyl Calcium Replacement - Follow Nurse / BPA Driven Protocol dextrose dextrose glucagon (human recombinant) HYDROmorphone Magnesium Standard Dose Replacement - Follow Nurse / BPA Driven Protocol naloxone nitroglycerin oxyCODONE Pharmacy To Dose: Phosphorus Replacement - Follow Nurse / BPA Driven Protocol Potassium Replacement - Follow Nurse / BPA Driven Protocol sodium chloride sodium chloride Assessment & Plan Assessment & Plan Active Hospital Problems Diagnosis POA COPD exacerbation [J44.1] Yes Respiratory failure [J96.90] Yes Resolved Hospital Problems No resolved problems to display. Brief Hospital Course to date: Linda Arteaga is a 65 y.o. female with history of chronic pancreatitis, COPD on 3 L nasal cannula baseline, A-fib on Xarelto, prior CVA, CAD status post PCI, HTN, HLD, CKD, anxiety, FLACO noncompliant with CPAP, hypothyroidism, GERD, chronic pain, prior tobacco use disorder, polysubstance use disorder (THC, cocaine), obesity, who presented for evaluation of SOA, abdominal pain, melena. CTA chest w no evidence of PE, but did show patchy bilateral airspace disease - possible multifocal PNA, CAD. CT a/p with contrast showed no acute abnormality, did show colonic diverticulosis, atherosclerosis, DJD. Admission labs notable for negative respiratory PCR, UDS positive for THC, cocaine, opiates, b enzodiazepines, WBC 11, lipase 73, proBNP 300, HS troponin 9 --> 10, Cr 1.29, K 3.2, Mg 1.3, ABG7.3/61/70. COPD w exacerbation Multifocal PNA Acute on chronic hypoxic respiratory failure FLACO non-compliant w CPAP -S/p BiPAP -Wean O2 support as tolerated, goal sats 88-92% -Continue inhaler equivalents, scheduled DuoNebs -Continue steroids -Continue mucinex, IS, OPEP -Continue CTX, doxy to complete course; MRSA screen+, but pt already significantly improved and doxy does have some coverage; suspect MRSA colonization Combined toxic and metabolic encephalopathy, resolved -In setting of above + polysubtance use -UDS positive for THC, cocaine, opiates, benzodiazepines -Treat as above + supportive care Concern for GIB with melanotic stool, resolved Acute on chronic pancreatitis History of esophageal stricture, Almaguer's esophagus Abdominal pain in setting of above + cocaine use (possible low-level ischemia) -GI consulted -PPI twice daily -S/p LR IVF -Creon A fib -On heparin drip, change back to Xarelto today -Metoprolol, Verapamil Elevated Cr in setting of CKD -Prior Cr 0.97 in 2022; on admission was 1.29--> 1 after IVF -Monitor Hypokalemia, hypomagnesemia Risk for refeeding syndrome -Replace per protocol -Empiric thiamine Prolonged QT in setting of electrolyte derangements, resolved -Replaced electrolytes, repeat QTc 472 on 10/02 HTN -Holding lisinopril given elevated creatinine, blood pressure controlled without it currently DM2-SSI, glucose checks, hypoglycemia protocol Tobacco use disorder-NRT, counseled on cessation HLD-statin CAD status post PCI-continue ASA Hypothyroidism-continue Synthroid Mood disorder-resume duloxetine, trazodone, cymbalta given Qtc now normalized Chronic pain-given AMS, hold off on gabapentin Expected Discharge Location and Transportation: tbd Expected Discharge Expected discharge date/ time has not been documented. VTE Prophylaxis: Pharmacologic & mechanical VTE prophylaxis orders are present. AM-PAC 6 Clicks Score (PT): 17 (10/02/25 0800) CODE STATUS: Code Status and Medical Interventions: CPR (Attempt to Resuscitate); Full Support Ordered at: 10/01/25 0807 Code Status (Patient has no pulse and is not breathing): CPR (Attempt to Resuscitate) Medical Interventions (Patient has pulse or is breathing): Full Support Level Of Support Discussed With: Patient Roc Malcolm MD 10/02/25 * Harley Kaminski, [facility] - 10/01/2025 8:43 PM EDT Pharmacy to Dose Heparin Infusion Note Linda Arteaga is a 65 y.o. female receiving heparin infusion. Therapy for (VTE/Cardiac): Cardiac Patient Weight: 92.7 kg Initial Bolus (Y/N): No Any Bolus (Y/N): Yes Signs or Symptoms of Bleeding: Originally had complaints of melena but it has now resolved and H/H stable. No overt s/sx of bleeding. Cardiac or Other (Not VTE) Initial rate: 12 units/kg/hr (Max 1,000 units/hr) Anti-Xa Bolus Dose Infusion Hold Time Infusion Rate Change (units/kg/hr) Repeat Anti-Xa < 0.11 50 units/kg (4000 units Max) None Increase by 3 units/kg/hr 6 hours 0.11- 0.19 25 units/kg (2000 units Max) None Increase by 2 units/kg/hr 6 hours 0.2 - 0.29 0 None Increase by 1 units/kg/hr 6 hours 0.3 - 0.5 0 None No Change 6 hours (after 2 consecutive levels in range check qAM) 0.51 - 0.6 0 None Decrease by 1 units/kg/hr 6 hours 0.61 - 0.8 0 30 minutes Decrease by 2 units/kg/hr 6 hours 0.81 - 1 0 60 minutes Decrease by 3 units/kg/hr 6 hours >1 0 Hold After Anti-Xa less than 0.5 decrease previous rate by 4 units/kg/hr Every 2 hours until Anti-Xa less than 0.5 then when infusion restarts in 6 hours Results from last 7 days Lab Units 10/01/25 1937 10/01/25 1619 10/01/25 0614 09/30/25 2203 INR 1.01 -- -- -- HEMOGLOBIN g/dL -- 13.4 13.7 14.6 13.0 HEMATOCRIT % -- 44.5 44.4 45.3 40.5 PLATELETS 10*3/mm3 -- 217 218 232 Date Time Anti-Xa Current Rate (units/kg/hr) Bolus (units) Rate Change (units/kg/hr) New Rate (units/kg/hr) Repeat Anti-Xa Comments / Pump Check 10/01 2030 0.10 NEW -- +10 11 300 BABAK Kaminski RPH 10/01/2025 20:32 EDT * Roc Malcolm MD - 10/01/2025 8:12 AM EDT Images from the original note were not included. [facility] Medicine Services ADMISSION FOLLOW-UP NOTE Patient admitted after midnight, H&P by my partner performed earlier on today's date reviewed. Interim findings, labs, and charting also reviewed. The [facility] Hospital Problem List has been managed and updated to include any new diagnoses: Active Hospital Problems Diagnosis POA COPD exacerbation [J44.1] Yes Resolved Hospital Problems No resolved problems to display. ADDITIONAL PLAN: - detailed assessment and plan from admission reviewed - patient seen and examined. Patient awakens to voice and answers questions appropriately. Orientedto self, hospital, 2024, and reason for presentation to hospital. Does fall asleep after answering each question. Follows all commands. Asking for pain medication for epigastric abdominal pain. 65-year-old female with history of chronic pancreatitis, COPD on 3 L nasal cannula baseline, A-fib on Xarelto, prior CVA, CAD status post PCI, HTN, HLD, CKD, anxiety, FLACO noncompliant with CPAP, hypothyroidism, GERD, chronic pain, prior tobacco use disorder, polysubstance use disorder (THC, cocaine), obesity, who presented for evaluation of SOA, abdominal pain, melena. CTA chest w no evidence of PE, but did show patchy bilateral airspace disease - possible multifocal PNA, CAD. CT a/p with contrast showed no acute abnormality, did show colonic diverticulosis, atherosclerosis, DJD. Admission labs notable for negative respiratory PCR, UDS positive for THC, cocaine, opiates, benzodiazepines, WBC 11, lipase 73, proBNP 300, HS troponin 9 --> 10, Cr 1.29, K 3.2, Mg 1.3, ABG 7.3/61/70. COPD w exacerbation Multifocal PNA Acute on chronic hypoxic respiratory failure FLACO non-compliant w CPAP -On BiPAP, wean as tolerated -Wean O2 support as tolerated, goal sats 88-92% -Continue inhaler equivalents, scheduled DuoNebs -Continue steroids -Continue mucinex, IS, OPEP -Continue CTX, doxy to complete course Combined toxic and metabolic encephalopathy -In setting of above + polysubtance use -UDS positive for THC, cocaine, opiates, benzodiazepines -Treat as above + supportive care Concern for GIB with melanotic stool Acute on chronic pancreatitis History of esophageal stricture, Almaguer's esophagus Abdominal pain in setting of above + cocaine use (possible low-level ischemia) -GI consulted -PPI twice daily -Serial H&H -Trend CRP -LR IVF Elevated Cr in setting of CKD -Prior Cr 0.97 in 2022; on admission was 1.29--> 1 after IVF -Monitor Hypokalemia, hypomagnesemia Risk for refeeding syndrome -Replace per protocol -Added phosphorus on the a.m. labs -Empiric thiamine Prolonged QT in setting of electrolyte derangements -Replaced electrolytes, monitor Qtc HTN -Holding lisinopril given elevated creatinine, blood pressure controlled without it currently -Holding metoprolol given cocaine use; discussed w pt DM2-SSI, glucose checks, hypoglycemia protocol Tobacco use disorder-NRT, counseled on cessation HLD-statin CAD status post PCI-holding Xarelto given concern for GIB; continue ASA Hypothyroidism-continue Synthroid Mood disorder-hold duloxetine, trazodone, cymbalta given prolonged QT Chronic pain-given AMS, hold off on gabapentin Pharmacy consulted for med rec Expected Discharge Expected discharge date/ time has not been documented. Roc Malcolm MD 10/01/25 documented in this encounter H&P Notes * Franklin Thorpe MD - 10/01/2025 1:57 AM EDT Images from the original note were not included. [facility] Medicine Services HISTORY AND PHYSICAL Patient Name: Linda Arteaga : 1960 Primary Care Physician: Michael Colón MD Date of admission: 09/30/2025 Subjective Subjective Chief Complaint: Multiple complaints HPI: Linda Arteaga is a 65 y.o. female with a past medical history of chronic pancreatitis with portin place, HTN, A fib on xarelto, COPD on 3 L NC, GERD who presented to [facility] with SOB and abdominal pain. Patient states that she develop abd pain today described as sharp and epigastric, no N/V, this was associated with multiple bowel movements which she described as black and tarry. Regarding SOB, thishas been going on for a week with a nonproductive cough. She denies fever or chills. She denies NSAID use but does take Xarelto for A. Fib. Upon arrival, pt was HDS, afebrile and but was requiring 5-6 L NC. Labs remarkable for K 3.2, Cr 1.29, Mag 1.3, WBC 11.01, Lipase 73, CT PE with patchy airspace disease consistent with pneumonia. CT abdomen pelvis unremarkable. VBG appeared compensated. She received DuoNeb x 2 for symptomatic relief, dexamethasone, ceftriaxone, and doxycycline, and dilaudid. No bowel movement reported since arriving to the ED. Prior to admission, pt was requesting additional pain medications. Personal History Past Medical History: Diagnosis Date A-fib Anxiety ARF (acute renal failure) Arthritis CAD (coronary artery disease) stents x 5 per pt COPD (chronic obstructive pulmonary disease) home 02 at 2.5-3L at all time Diabetes mellitus Disease of thyroid gland Elevated cholesterol GERD (gastroesophageal reflux disease) Hypertension Internal hemorrhoids Pancreatitis Pacreatic divisum PONV (postoperative nausea and vomiting) Sleep apnea uses CPAP occasionally Stroke 2018 or 2019 per pt, no residual one-sided weakness Supplemental oxygen dependent 2-3L NC Past Surgical History: Procedure Laterality Date APPENDECTOMY CHOLECYSTECTOMY COLONOSCOPY CORONARY ANGIOPLASTY WITH STENT PLACEMENT x5 total; most recent 3 stents in 2019 - per pt. ENDOSCOPY HYSTERECTOMY PAIN PUMP INSERTION/REVISION right lower back PANCREAS SURGERY PORTACATH PLACEMENT TONSILLECTOMY VENOUS ACCESS DEVICE (PORT) REMOVAL N/A 04/29/2023 Procedure: PORT REMOVAL; Surgeon: Tha Sanchez MD; Location: REPLACED BY [facility]; Service: General; Laterality: N/A; Family History: family history is not on file. Social History: reports that she quit smoking about 4 years ago. Her smoking use included cigarettes. She started smoking about 49 years ago. She has a 11.3 pack-year smoking history. She has never used smokeless tobacco. She reports that she does not drink alcohol and does not use drugs. Social History Social History Narrative Not on file Medications: Available home medication information reviewed. ALPRAZolam, DULoxetine, QUEtiapine, acetaminophen, albuterol, albuterol sulfate HFA, atorvastatin, budesonide-formoterol, docusate sodium, estrogens (conjugated), gabapentin, lactulose, levothyroxine, lisinopril, metFORMIN ER, metoprolol succinate XL, montelukast, naloxone, omeprazole, polyethyleneglycol, potassium chloride, promethazine, rOPINIRole, rivaroxaban, ipooov-ylilwhncb-cljldcjzb sulfates, ticagrelor, and traZODone Allergies Allergen Reactions Ciprofloxacin GI Intolerance Can't take with cymbalta Demerol [Meperidine] Hives and GI Intolerance Toradol [Ketorolac Tromethamine] Hives and GI Intolerance Tramadol Hives and GI Intolerance Objective Objective Vital Signs: Temp: [98.2 ??F (36.8 ??C)] 98.2 ??F (36.8 ??C) Heart Rate: [69-81] 70 Resp: [20] 20 BP: (105-147)/(56-104) 117/80 Flow (L/min) (Oxygen Therapy): [5-25] 6 Physical Exam Constitutional: Appearance: She is obese. She is ill-appearing. HENT: Head: Normocephalic. Mouth/Throat: Pharynx: Oropharynx is clear. Eyes: Extraocular Movements: Extraocular movements intact. Cardiovascular: Rate and Rhythm: Normal rate and regular rhythm. Pulmonary: Effort: Pulmonary effort is normal. Breath sounds: Wheezing present. Abdominal: General: There is no distension. Palpations: Abdomen is soft. Tenderness: There is abdominal tenderness (epigastric TTP). There is no guarding. Musculoskeletal: Right lower leg: No edema. Left lower leg: No edema. Skin: General: Skin is warm. Neurological: Mental Status: Mental status is at baseline. Psychiatric: Mood and Affect: Mood normal. Behavior: Behavior normal. Result Review: I have personally reviewed the results from the time of this admission to 10/01/2025 05:38 EDT and agree with these findings: [x] Laboratory list / accordion [] Microbiology [x] Radiology [] EKG/Telemetry [] Cardiology/Vascular [] Pathology [x] Old records [] Other: Most notable findings include: hypokalemia, PNA, chronic pancreatitis LAB RESULTS: Lab 09/30/252202 WBC 11.01* HEMOGLOBIN 13.0 HEMATOCRIT 40.5 PLATELETS 232 NEUTROS ABS 7.63* IMMATURE GRANS (ABS) 0.04 LYMPHS ABS 2.41 MONOS ABS 0.57 EOS ABS 0.30 MCV 93.1 Lab 09/30/252202 SODIUM 137 POTASSIUM 3.2* CHLORIDE 95* CO2 28.8 ANION GAP 13.2 BUN 18.6 CREATININE 1.29* EGFR 46.2* GLUCOSE 104* CALCIUM 8.5* MAGNESIUM 1.3* Lab 09/30/252202 TOTAL PROTEIN 6.9 ALBUMIN 3.9 GLOBULIN 3.0 ALT (SGPT) 6 AST (SGOT) 15 BILIRUBIN 0.5 ALK PHOS 89 LIPASE 73* Lab 09/30/25 2349 09/30/253 PROBNP -- 300.0 HSTROP T 10 9 Lab 10/01/25 0449 09/30/251 PH, ARTERIAL 7.316* -- PCO2, ARTERIAL 61.8* -- PO2 ART 70.8* -- FIO2 80 40 HCO3 ART 31.5* -- BASE EXCESS ART 3.6* -- CARBOXYHEMOGLOBIN 3.7* -- CARBOXYHEMOGLOBIN (VENOUS) -- 6.7 Microbiology Results (last 10 days) Procedure Component Value - Date/Time Respiratory Panel PCR w/COVID-19(SARS-CoV-2) CHRISTINA/JUANA/BELEN/PAD/COR/TYRA In-House, [employer] Swab in UTM/VTM, 2 HR TAT - Swab, Nasopharynx [[id number]] (Normal) Collected: 10/01/25 0007 Lab Status: Final result Specimen: Swab from Nasopharynx Updated: 10/01/25 0135 ADENOVIRUS, PCR Not Detected Coronavirus 229E Not Detected Coronavirus HKU1 Not Detected Coronavirus NL63 Not Detected Coronavirus OC43 Not Detected COVID19 Not Detected Human Metapneumovirus Not Detected Human Rhinovirus/Enterovirus Not Detected Influenza A PCR Not Detected Influenza B PCR Not Detected Parainfluenza Virus 1 Not Detected Parainfluenza Virus 2 Not Detected Parainfluenza Virus 3 Not Detected Parainfluenza Virus 4 Not Detected RSV, PCR Not Detected Bordetella pertussis pcr Not Detected Bordetella parapertussis PCR Not Detected Chlamydophila pneumoniae PCR Not Detected Mycoplasma pneumo by PCR Not Detected Narrative: In the setting of a positive respiratory panel with a viral infection PLUS a negative procalcitoninwithout other underlying concern for bacterial infection, consider observing off antibiotics or discontinuation of antibiotics and continue supportive care. If the respiratory panel is positive for atypical bacterial infection (Bordetella pertussis, Chlamydophila pneumoniae, or Mycoplasma pneumoniae), consider antibiotic de-escalation to target atypical bacterial infection. CT Abdomen Pelvis With Contrast Result Date: 09/30/2025 CT ABDOMEN PELVIS W CONTRAST Date of Exam: 09/30/2025 10:55 PM EDT Indication: epigastric abd pain.Comparison: 05/05/2023. Technique: Axial CT images were obtained of the abdomen and pelvis following the uneventful intravenous administration of iodinated contrast. Reconstructed coronal and sagittal images were also obtained. Automated exposure control and iterative construction methods were used. Findings: Findings in the chest discussed in a separate report. Interval resolution of previously seen hepatic steatosis. Stable cholecystectomy. The bile ducts, pancreas, spleen, stomach and duodenumappear unremarkable. Adrenal glands are normal. Left kidney is normal. There is a simple cyst at the right kidney measuring 34 mm, unchanged. No hydronephrosis. Urinary bladder is nondistended. Patient is status post hysterectomy. Ovaries are not seen. Appendix is not seen. There is colonic diverticulosis. No small bowel distention. Moderate atherosclerosis. No aneurysm. No ascites, pneumoperitoneum or lymphadenopathy. There is a pain pump in the right flank soft tissues. There is an arthrodesis device at the right SI joint. There is severe productive DJD at the right hip and minimal disease of the left hip. There are moderate spinal degenerative changes. No acute osseous abnormality. Impression: Impression: 1.No acute abdominal or pelvic abnormality. 2.Interval resolution of hepatic steatosis. 3.Colonic diverticulosis. 4.Atherosclerosis. 5.Severe right hip DJD. Electronically Signed: Abraham Stephen MD 09/30/2025 11:57 PM EDT Workstation ID: [id number] CT Angiogram Chest Pulmonary Embolism Result Date: 09/30/2025 CT ANGIOGRAM CHEST PULMONARY EMBOLISM Date of Exam: 09/30/2025 10:55 PM EDT Indication: chest pain.Comparison: Chest radiograph 09/30/[address] 04/28/2023. Technique: Axial CT images were obtained of the chest after the uneventful intravenous administration of iodinated contrast utilizing pulmonary embolism protocol. In addition, a 3-D volume rendered image was created for interpretation.Reconstructed coronal and sagittal images were also obtained. Automated exposure control and iterative construction methods were used. Findings: The thyroid, trachea and esophagus appear within normal limits. Heart size is normal. There are coronary stents and coronary artery calcifications. Mild aortic atherosclerosis. There are calcified mediastinal granulomas. There is no evidence of pulmonaryembolism. No pericardial effusion or mediastinal lymphadenopathy. The lungs are hypoinflated. Thereappears to be interlobular septal thickening and patchy bilateral airspace disease along with peribronchial thickening. These findings could be due to pulmonary edema or multifocal pneumonia. Evaluation is somewhat limited due to expiratory phase required for this type of exam. No acute findings inthe superficial soft tissues. No acute findings in the upper abdomen. Patient is status post cholecystectomy. No acute osseous abnormality. There are mild thoracic degenerative changes. There are old healed right-sided rib fractures. Impression: Impression: 1.No evidence of pulmonary embolism. 2.Hypoinflated lungs with interlobularseptal thickening and patchy bilateral airspace disease. This could be due to pulmonary edema or multifocal pneumonia. 3.Coronary artery disease. Electronically Signed: Abraham Stephen MD 09/30/2025 11:54 PM EDT Workstation ID: [id number] XR Chest 1 View Result Date: 09/30/2025 XR CHEST 1 VW Date of Exam: 09/30/2025 10:13 PM EDT Indication: epigastric abd pain. Comparison: 05/04/2023 Findings: Right chest wall port distal lead tip overlying the right atrium. Enlarged cardiac silhouette. Low lung volumes. Emphysema. No focal airspace opacity, pleural effusion, or pneumothorax. Healed right rib fractures. No acute bone abnormality. Impression: Impression: 1.Emphysema. No acute cardiopulmonary abnormality. Electronically Signed: Abraham Espinosa MD 09/30/2025 10:38 PM EDT Workstation ID: [id number] Results for orders placed during the hospital encounter of 07/31/17 Transthoracic Echocardiogram 2D Complete 08/01/2017 2:29 PM Interpretation Summary ?? Left ventricular systolic function is normal. Estimated EF = 65%. ?? Left ventricular wall thickness is consistent with mild concentric hypertrophy. ?? The cardiac valves are anatomically and functionally normal. ?? Calculated right ventricular systolic pressure from tricuspid regurgitation is 38 mmHg. Assessment & Plan Assessment & Plan COPD exacerbation Linda Arteaga is a 65 y.o. female with a past medical history of chronic pancreatitis with portin place, HTN, A fib on xarelto, COPD on 3 L NC, GERD who presented to [facility] with SOB and abdominal pain. Acute on chronic pancreatitis Presents with one day of ABD pain, epigastric, similar to prior episode of pancreatitis, has port in place Lipase 73 Continue symptomatic management w/ pain control, anti emetics and IVF Advance diet as tolerated over the next few days Concern for upper GI bleed H/o esophageal stricture/Almaguer's esophagus Hgb 13 on arrival and HD stable Reported multiple episodes of black stools prior to admission IV PPI ordered Serial H/H GI consult NPO COPD exacerbation One week of SOB with nonproductive cough, mild wheezing on exam CT chest with patchy b/l airspace disease concerning for PNA Continue supplemental oxygen, titrate down as able Continue prednisone 40 mg daily CAP coverage with Ceftriaxone and Doxycyline Pulmonary toilet Metabolic encephalopathy Addendum: After admission, ABG ordered to evaluated for CO2 narcosis/FLACO, pH 7.316/CO2 61/HCO3 31 and pt placed on BIPAP. Repeat ABG ordered for 8 AM. Pt remains HD stable, oxygenating ok, mentation improving. Low threshold for escalation of care if not improving. Pt signed out to Day team to follow. ?ALYSE No recent baseline Cr to compare, last one in 2022 Cr 0.97 Cr 1.29 on admission Received fluids Recheck Cr in the AM Hypokalemia Hypomagnesemia Monitor and replace Mood disorder Continue home duloxetine, quetiapine, prn xanax Chronic pain Home gabapentin and trazodone Close monitor for medication side effects Hypothyroidism Continue home levothyroxine HTN Hold home lisinopril d/t altered kidney function DM FSBG and SSI HLD Continue statin Atrial fibrillation CAD s/p PCI Hold Xarelto for now d/t concern of GI bleed Continue metoprolol Prolonged Qtc Closely monitor, avoid Qtc prolonged meds FLACO CPAP nightly Tobacco use disorder Nicotine replacement Obesity BMI 32 - complicates care Full updated Med Rec with Pharmacy in the AM VTE Prophylaxis: Pharmacologic & mechanical VTE prophylaxis orders are present. CODE STATUS: There are no questions and answers to display. Expected Discharge Expected discharge date/ time has not been documented. Franklin Thorpe MD 10/01/25 documented in this encounter Consult Notes * Ifeanyi Chawla - 10/04/2025 4:52 PM EST Completed living will with pt. Copy in chart; faxed to HIM. * Miguel Gunter - 10/02/2025 10:46 AM ESTAssociated Order(s): IP CONSULT TO ADVANCE CARE PLANNING Seeing patient per Advance Care Planning consult. Gave patient requested Living Will information. Patient understands to reach out to wafer production worker via nursing staff to have it completed. * Abdulkadir Noguera APRN - 10/01/2025 12:38 PM EDTAssociated Order(s): Inpatient Gastroenterology Consult [facility] Group: Inpatient Gastroenterology Consult Inpatient Gastroenterology Consult Consult performed by: Abdulkadir Noguera APRN Consult ordered by: Franklin Thorpe MD Reason for consult: concern for GI bleed, melena Referring Provider: No ref. provider found PCP: Michael Colón MD Chief Complaint: Epigastristric pain and melena History of present illness: 65-year-old female with history of chronic pancreatitis, COPD on 3 L. A-fib on Xarelto, CKD, hypertension, esophageal stricture, Almaguer's esophagus with 1 day history of shortness of breath, abdominal pain and melena to [facility] 10/01/2025. Patient reports, that she experienced a rather acute onset of left upper quadrant epigastric pain that has lasted the last 24 hours with accompanying dark stools. Patient reports constitutional symptoms including fever, chills, weight loss she reports that this is partially intentional. Does not endorse any nausea or vomiting; does endorse ongoing steatorrhea for which she is on Creon. Does report history of prior Almaguer's esophagus with most recent EGD being with Dr. Arenas'kacey within the last year. Does report ongoing dysphagia to both solids and intermittently to liquids though she doesnot endorse any odynophagia. On arrival to ED CTA chest with no evidence of PE although presence of patchy bilateral airspace disease possible pneumonia. Pelvis imaging with contrast showed no acute abnormality presence of knowncolonic diverticulosis. UDS positive for THC, cocaine, opiates, benzodiazepines. WBC 11, lipase 73, creatinine 1.29, K3.2, mag 1.3, 7.3/61/70. Endoscopy, Int (04/05/2024) Colonoscopy, Scan (04/05/2024) Allergies: Ciprofloxacin, Demerol [meperidine], Toradol [ketorolac tromethamine], and Tramadol Scheduled Meds: aspirin, 81 mg, Oral, Daily atorvastatin, 40 mg, Oral, Nightly budesonide-formoterol, 2 puff, Inhalation, BID - RT cefTRIAXone, 2,000 mg, Intravenous, Q24H doxycycline, 100 mg, Oral, Q12H [Held by provider] DULoxetine, 60 mg, Oral, Q12H [Held by provider] gabapentin, 600 mg, Oral, Q12H guaiFENesin, 1,200 mg, Oral, Q12H insulin regular, 2-7 Units, Subcutaneous, Q6H ipratropium-albuterol, 3 mL, Nebulization, 4x Daily - RT levothyroxine, 100 mcg, Oral, Q AM [Held by provider] lisinopril, 5 mg, Oral, Daily methylPREDNISolone sodium succinate, 40 mg, Intravenous, Q24H [Held by provider] metoprolol succinate XL, 12.5 mg, Oral, Daily nicotine, 1 patch, Transdermal, Q24H pantoprazole, 40 mg, Intravenous, Q12H [Held by provider] predniSONE, 40 mg, Oral, Daily With Breakfast [Held by provider] QUEtiapine, 50 mg, Oral, Nightly [Held by provider] rivaroxaban, 20 mg, Oral, Daily With Dinner sodium chloride, 10 mL, Intravenous, Q12H thiamine (B-1) IV, 200 mg, Intravenous, Daily [Held by provider] traZODone, 100 mg, Oral, Nightly Infusions: lactated ringers, 75 mL/hr, Last Rate: 75 mL/hr (10/01/25 1201) Pharmacy Consult, Pharmacy To Dose:, PRN Meds: acetaminophen OR acetaminophen OR acetaminophen ALPRAZolam senna-docusate sodium AND polyethylene glycol AND bisacodyl AND bisacodyl Calcium Replacement - Follow Nurse / BPA Driven Protocol dextrose dextrose glucagon (human recombinant) HYDROmorphone Magnesium Standard Dose Replacement - Follow Nurse / BPA Driven Protocol naloxone nitroglycerin Pharmacy Consult Pharmacy To Dose: Phosphorus Replacement - Follow Nurse / BPA Driven Protocol Potassium Replacement - Follow Nurse / BPA Driven Protocol sodium chloride sodium chloride Home Meds: Medications Prior to Admission Medication Sig Dispense Refill Last Dose/Taking ALPRAZolam (XANAX) 1 MG tablet Take 1 tablet by mouth 2 (Two) Times a Day As Needed for Anxiety. Taking As Needed atorvastatin (LIPITOR) 40 MG tablet Take 1 tablet by mouth Every Night. 30 tablet 0 Taking DULoxetine (CYMBALTA) 60 MG capsule Take 1 capsule by mouth 2 (Two) Times a Day. Taking ferrous sulfate 324 (65 Fe) MG tablet delayed-release EC tablet Take 1 tablet by mouth 2 (Two) Times a Day With Meals. Taking furosemide (LASIX) 20 MG tablet Take 1 tablet by mouth Daily. Taking gabapentin (NEURONTIN) 600 MG tablet Take 1 tablet by mouth 2 (Two) Times a Day. Taking levothyroxine (SYNTHROID, LEVOTHROID) 100 MCG tablet Take 1 tablet by mouth Every Morning. 30 tablet 3 Taking magnesium oxide (MAG-OX) 400 MG tablet Take 1 tablet by mouth 2 (Two) Times a Day. Taking metFORMIN (GLUCOPHAGE) 1000 MG tablet Take 1 tablet by mouth 2 (Two) Times a Day With Meals. Taking montelukast (SINGULAIR) 10 MG tablet Take 1 tablet by mouth Every Night. Taking omeprazole (priLOSEC) 40 MG capsule Take 1 capsule by mouth Daily. Take a half hour before breakfast and dinner 30 capsule 11 Taking pantoprazole (PROTONIX) 40 MG EC tablet Take 1 tablet by mouth Daily. Taking potassium chloride 10 MEQ CR tablet Take 1 tablet by mouth Daily. Taking QUEtiapine (SEROquel) 50 MG tablet Take 1 tablet by mouth Every Night. Taking rOPINIRole (REQUIP) 0.25 MG tablet Take 1 tablet by mouth Every Night. Taking traZODone (DESYREL) 100 MG tablet Take 1 tablet by mouth Every Night. 30 tablet 0 Taking verapamil SR (CALAN-SR) 120 MG CR tablet Take 1 tablet by mouth 2 (Two) Times a Day. Taking Xarelto 20 MG tablet Take 1 tablet by mouth Daily With Dinner. Pt to hold (1) week prior to procedure per Dr. Kearney Taking acetaminophen (TYLENOL) 325 MG tablet Take 2 tablets by mouth Every 6 (Six) Hours As Needed for Mild Pain . Unknown albuterol (PROVENTIL) (2.5 MG/3ML) 0.083% nebulizer solution Take 2.5 mg by nebulization Every 6 (Six) Hours As Needed for Wheezing. Unknown albuterol sulfate HFA 108 (90 Base) MCG/ACT inhaler Inhale 2 puffs Every 4 (Four) Hours As Needed for Wheezing. Unknown docusate sodium 100 MG capsule Take 100 mg by mouth 2 (Two) Times a Day As Needed for Constipation.Indications: Constipation Unknown metoprolol succinate XL (TOPROL-XL) 25 MG 24 hr tablet Take 1 tablet by mouth Daily. polyethylene glycol (MIRALAX) 17 g packet Take 17 g by mouth Daily. (Patient taking differently: Take 17 g by mouth Daily As Needed (constipation).) ranolazine (RANEXA) 500 MG 12 hr tablet Take 1 tablet by mouth 2 (Two) Times a Day. ROS: Review of Systems Constitutional: Positive for chills and fever. Negative for activity change, appetite change, diaphoresis, fatigue and unexpected weight change. HENT: Positive for trouble swallowing. Negative for sore throat and voice change. Eyes: Negative. Respiratory: Positive for shortness of breath. Negative for apnea, cough, choking, chest tightness,wheezing and stridor. Cardiovascular: Negative for chest pain, palpitations and leg swelling. Gastrointestinal: Positive for abdominal pain and blood in stool. Negative for abdominal distention, anal bleeding, constipation, diarrhea, nausea, rectal pain and vomiting. Left upper quadrant epigastric pain without rebound tenderness Endocrine: Negative. Genitourinary: Negative. Musculoskeletal: Negative. Skin: Negative. Allergic/Immunologic: Negative. Neurological: Lethargic, falls asleep mid conversation Hematological: Negative for adenopathy. Does not bruise/bleed easily. Psychiatric/Behavioral: Negative. All other systems reviewed and are negative. PAST MED HX: Past Medical History: Diagnosis Date A-fib Anxiety ARF (acute renal failure) Arthritis CAD (coronary artery disease) stents x 5 per pt COPD (chronic obstructive pulmonary disease) home 02 at 2.5-3L at all time Diabetes mellitus Disease of thyroid gland Elevated cholesterol GERD (gastroesophageal reflux disease) Hypertension Internal hemorrhoids Pancreatitis Pacreatic divisum PONV (postoperative nausea and vomiting) Sleep apnea uses CPAP occasionally Stroke 2018 or 2019 per pt, no residual one-sided weakness Supplemental oxygen dependent 2-3L NC PAST SURG HX: Past Surgical History: Procedure Laterality Date APPENDECTOMY CHOLECYSTECTOMY COLONOSCOPY CORONARY ANGIOPLASTY WITH STENT PLACEMENT x5 total; most recent 3 stents in 2019 - per pt. ENDOSCOPY HYSTERECTOMY PAIN PUMP INSERTION/REVISION right lower back PANCREAS SURGERY PORTACATH PLACEMENT TONSILLECTOMY VENOUS ACCESS DEVICE (PORT) REMOVAL N/A 04/29/2023 Procedure: PORT REMOVAL; Surgeon: Tha Sanchez MD; Location: REPLACED BY [facility]; Service: General; Laterality: N/A; FAM HX: Family History Problem Relation Name Age of Onset Colon polyps Neg Hx Colon cancer Neg Hx SOC HX: Social History Socioeconomic History Marital status: Tobacco Use Smoking status: Former Current packs/day: 0.00 Average packs/day: 0.3 packs/day for 45.0 years (11.3 ttl pk-yrs) Types: Cigarettes Start date: 12/01/1975 Quit date: 12/01/2020 Years since quittin.8 Passive exposure: Never Smokeless tobacco: Never Tobacco comments: weaning off Vaping Use Vaping status: Every Day Substances: Nicotine Devices: Pre-filled pod Substance and Sexual Activity Alcohol use: Never Drug use: Yes Types: Crack cocaine Comment: sometimes not even twice a month Sexual activity: Defer PHYSICAL EXAM BP 128/76 (BP Location: Right arm, Patient Position: Lying) Pulse 71 Temp 97.7 ??F (36.5 ??C) (Oral) Resp 16 Ht 167.6 cm (66 ) Wt 92.7 kg (204 lb 4.8 oz) SpO2 92% BMI 32.97 kg/m?? Wt Readings from Last 3 Encounters: 10/01/25 92.7 kg (204 lb 4.8 oz) 02/17/24 98.2 kg (216 lb 7.9 oz) 04/29/23 109 kg (241 lb) ,body mass index is 32.97 kg/m??. Physical Exam Vitals and nursing note reviewed. Constitutional: General: She is not in acute distress. Appearance: Normal appearance. She is normal weight. She is ill-appearing. She is not toxic-appearing. HENT: Head: Normocephalic and atraumatic. Eyes: General: No scleral icterus. Extraocular Movements: Extraocular movements intact. Conjunctiva/sclera: Conjunctivae normal. Pupils: Pupils are equal, round, and reactive to light. Cardiovascular: Rate and Rhythm: Normal rate and regular rhythm. Pulses: Normal pulses. Heart sounds: Normal heart sounds. Pulmonary: Effort: No respiratory distress. Breath sounds: Normal breath sounds. Comments: Increased work of breathing, no adventitious lung sounds, equal bilateral chest expansion Abdominal: General: Abdomen is flat. Bowel sounds are normal. There is distension. Palpations: Abdomen is soft. There is no mass. Tenderness: There is abdominal tenderness. There is no guarding or rebound. Hernia: No hernia is present. Skin: General: Skin is warm and dry. Coloration: Skin is not jaundiced or pale. Neurological: General: No focal deficit present. Mental Status: She is alert and oriented to person, place, and time. Comments: Lethargic on exam Psychiatric: Mood and Affect: Mood normal. Behavior: Behavior normal. Thought Content: Thought content normal. Judgment: Judgment normal. Results Review: I reviewed the patient's new clinical results. I reviewed the patient's new imaging results and agree with the interpretation. I reviewed the patient's other test results and agree with the interpretation I personally viewed and interpreted the patient's EKG/Telemetry data Lab Results Component Value Date WBC 10.60 10/01/2025 HGB 14.6 10/01/2025 HGB 13.0 09/30/2025 HGB 9.1 (L) 02/17/2024 HCT 45.3 10/01/2025 MCV 94.6 10/01/2025 PLT 218 10/01/2025 Lab Results Component Value Date INR 1.01 02/17/2024 INR 1.01 07/24/2020 INR 0.99 07/31/2017 Lab Results Component Value Date GLUCOSE 124 (H) 10/01/2025 BUN 15.5 10/01/2025 CREATININE 1.16 (H) 10/01/2025 EGFRIFNONA 49 (L) 04/11/2022 EGFRIFAFRI 59 (L) 04/11/2022 BCR 13.4 10/01/2025 NA 137 10/01/2025 K 3.7 10/01/2025 CO2 26.5 10/01/2025 CALCIUM 8.5 (L) 10/01/2025 ALBUMIN 3.9 09/30/2025 ALKPHOS 89 09/30/2025 BILITOT 0.5 09/30/2025 ALT 6 09/30/2025 AST 15 09/30/2025 XR Chest 1 View Result Date: 10/01/2025 XR CHEST 1 VW Date of Exam: 10/01/2025 6:06 AM EDT Indication: hypoxia. Comparison: CT chest and chest radiograph 09/30/2025 Findings: Right chest port catheter tip terminates near cavoatrial junction. Mild cardiomegaly. Slightly prominent indistinct central vasculature with diffuse increased interstitial opacities radiographically increased from prior comparison. No significant pleural effusion. No pneumothorax. Degenerative related osseous change. Impression: Increasing diffuse interstitial opacities suspicious for pulmonary edema. Infectious process is possible. Electronically Signed: Rusty Larry MD 10/01/2025 6:55 AM EDT Workstation ID: [id number] CT Abdomen Pelvis With Contrast Result Date: 09/30/2025 CT ABDOMEN PELVIS W CONTRAST Date of Exam: 09/30/2025 10:55 PM EDT Indication: epigastric abd pain.Comparison: 05/05/2023. Technique: Axial CT images were obtained of the abdomen and pelvis following the uneventful intravenous administration of iodinated contrast. Reconstructed coronal and sagittal images were also obtained. Automated exposure control and iterative construction methods were used. Findings: Findings in the chest discussed in a separate report. Interval resolution of previously seen hepatic steatosis. Stable cholecystectomy. The bile ducts, pancreas, spleen, stomach and duodenumappear unremarkable. Adrenal glands are normal. Left kidney is normal. There is a simple cyst at the right kidney measuring 34 mm, unchanged. No hydronephrosis. Urinary bladder is nondistended. Patient is status post hysterectomy. Ovaries are not seen. Appendix is not seen. There is colonic diverticulosis. No small bowel distention. Moderate atherosclerosis. No aneurysm. No ascites, pneumoperitoneum or lymphadenopathy. There is a pain pump in the right flank soft tissues. There is an arthrodesis device at the right SI joint. There is severe productive DJD at the right hip and minimal disease of the left hip. There are moderate spinal degenerative changes. No acute osseous abnormality. Impression: 1.No acute abdominal or pelvic abnormality. 2.Interval resolution of hepatic steatosis.3.Colonic diverticulosis. 4.Atherosclerosis. 5.Severe right hip DJD. Electronically Signed: Abraham Stephen MD 09/30/2025 11:57 PM EDT Workstation ID: [id number] CT Angiogram Chest Pulmonary Embolism Result Date: 09/30/2025 CT ANGIOGRAM CHEST PULMONARY EMBOLISM Date of Exam: 09/30/2025 10:55 PM EDT Indication: chest pain.Comparison: Chest radiograph 09/30/[address] 04/28/2023. Technique: Axial CT images were obtained of the chest after the uneventful intravenous administration of iodinated contrast utilizing pulmonary embolism protocol. In addition, a 3-D volume rendered image was created for interpretation.Reconstructed coronal and sagittal images were also obtained. Automated exposure control and iterative construction methods were used. Findings: The thyroid, trachea and esophagus appear within normal limits. Heart size is normal. There are coronary stents and coronary artery calcifications. Mild aortic atherosclerosis. There are calcified mediastinal granulomas. There is no evidence of pulmonaryembolism. No pericardial effusion or mediastinal lymphadenopathy. The lungs are hypoinflated. Thereappears to be interlobular septal thickening and patchy bilateral airspace disease along with peribronchial thickening. These findings could be due to pulmonary edema or multifocal pneumonia. Evaluation is somewhat limited due to expiratory phase required for this type of exam. No acute findings inthe superficial soft tissues. No acute findings in the upper abdomen. Patient is status post cholecystectomy. No acute osseous abnormality. There are mild thoracic degenerative changes. There are old healed right-sided rib fractures. Impression: 1.No evidence of pulmonary embolism. 2.Hypoinflated lungs with interlobular septal thickening and patchy bilateral airspace disease. This could be due to pulmonary edema or multifocal pneumonia. 3.Coronary artery disease. Electronically Signed: Abraham Stephen MD 09/30/2025 11:54 PM EDT Workstation ID: [id number] XR Chest 1 View Result Date: 09/30/2025 XR CHEST 1 VW Date of Exam: 09/30/2025 10:13 PM EDT Indication: epigastric abd pain. Comparison: 05/04/2023 Findings: Right chest wall port distal lead tip overlying the right atrium. Enlarged cardiac silhouette. Low lung volumes. Emphysema. No focal airspace opacity, pleural effusion, or pneumothorax. Healed right rib fractures. No acute bone abnormality. Impression: 1.Emphysema. No acute cardiopulmonary abnormality. Electronically Signed: Abraham Espinosa MD 09/30/2025 10:38 PM EDT Workstation ID: [id number] ASSESSMENTS/PLANS 1. Concerns for gastrointestinal bleeding, melanotic stools, hemoglobin stable 2. Acute epigastric pain 3. GERD, esophagitis presence not specified 4. History of Almaguer's esophagus, most recent EGD with dilation in [address] Arenas's 5. Polysubstance use, THC, cocaine, opiates, and benzos. 6. COPD exacerbation 7. History of chronic pancreatitis, exocrine pancreatic insufficiency, on Creon Linda Arteaga is a 65 y.o. female who presents to hospital with shortness of breath is found tohave a COPD exacerbation and findings concerning for multifocal pneumonia. GI consult received for concerns of epigastric pain as well as dark stools. By time of GI evaluation, hemoglobin has stabilized and patient does not report any further dark stools. At present, recommend supportive care with twice daily PPI while inpatient; tentatively plan for outpatient EGD unless worsening symptoms whilehospitalized at which time we will pursue an inpatient scope. >>> Okay for diet from GI standpoint >>> Pantoprazole 40 mg twice daily >>> Monitor H&H transfuse per protocol >>> GERD dietary modifications; Ensure head of bed is elevated greater than 30 degrees at all times-sit upright for 2 hours following meals. >>> Given ongoing steatorrhea, will increase Creon and evaluate response >>> Tentatively plan for outpatient EGD at discharge I discussed the patient's findings and my recommendations with patient and consulting provider Abdulkadir Noguera APRN 10/01/25 12:38 EDT Cosigned by Cheko Enrique MD at 10/01/2025 4:43 PM EDT Associated attestation - Cheko Enrique MD - 10/01/2025 4:43 PM EDT I have reviewed this documentation and agree. documented in this encounter Nursing Notes * Carmen Ruffin RN - 10/04/2025 8:30 AM EST Prevention of Pressure Injury (POPI) screening: For early detection and prevention of pressure injuries for at risk patients. Low Werner Scale Score <=16 Current Werner Scale Score: Sensory Perception: (P) 3-->slightly limited Moisture: (P) 4-->rarely moist Activity: (P) 2-->chairfast Mobility: (P) 2-->very limited Nutrition: (P) 3-->adequate Friction and Shear: (P) 2-->potential problem Werner Score: (P) 16 (10/04/25 0800) Length of stay: 3 day(s) Head-to-toe assessment performed: with nurse. Skin clean, dry, and intact without any discolorationor wounds noted. Assisted in applying Allevyn to heels and foam pads to 02 tubing, secured with pink tape. Discussed pressure relief with patient, she was able to turn in bed, encouraged her to be sure to turn Q2 hours to off load bony prominences. Specialty support surface: Isotour Pressure Injury Prevention Protocol (initiate for Werner Score of 18 or less): *Keep skin dry, turn q 2 hr, keep heels elevated and offloaded with offloading heel boots. *Apply Allevyn prevention dressings to heel and sacrum (teal wipes and barrier film spray preferred) *Follow C.A.R.E protocol if medical devices (Bipap, garcia, Ng tube, etc) are being used. *Reduce layers under patient (one sheet as drawsheet and two incontinence pads) to allow ISIDRO to improve microclimate *Raise knee-gatch before elevating HOB to reduce shearing Please contact WOC if new skin issues arise. * Marissa Flowers, MS CCC-FRUIT CHECKER - 10/03/2025 11:03 AM EST Goal Outcome Evaluation: Plan of Care Reviewed With: patient MBS completed. Anticipated Discharge Disposition (FRUIT CHECKER): No further FRUIT CHECKER services warranted FRUIT CHECKER Swallowing Diagnosis: functional oral phase, functional pharyngeal phase, suspected esophageal dysphagia (10/03/25 1000) * Ekta Worthington, PT - 10/02/2025 2:01 PM EST Goal Outcome Evaluation: Plan of Care Reviewed With: patient Outcome Evaluation: PT eval completed. Patient presenting with deficits in general BLE strength , standing dynamic balance, and functional endurance effecting functional mobility below baseline. Patient will benefit from skilled IP PT services to address impairments for return to PLOF. Recommend home with assist and HHPT at dc. Anticipated Discharge Disposition (PT): home with assist, home with home health * Moni Padron, OT - 10/02/2025 2:00 PM EST Goal Outcome Evaluation: Plan of Care Reviewed With: patient Outcome Evaluation: OT eval completed. Pt presents below baseline for ADL performance, with generalized weakness, SOA, and mild balance deficits. Pt donned socks with AREVALO at EOB, ambulated to bathroomwithout AD with CGA, completed toileting with SUP. IP OT services warranted. Recommend home with assist and HHOT at discharge. Anticipated Discharge Disposition (OT): home with assist, home with home health * Rissa Hidalgo, MS CCC-FRUIT CHECKER - 10/02/2025 11:01 AM EST Goal Outcome Evaluation: Plan of Care Reviewed With: patient Anticipated Discharge Disposition (FRUIT CHECKER): home FRUIT CHECKER Swallowing Diagnosis: mild, oral dysphagia, R/O pharyngeal dysphagia, suspected esophageal dysphagia (10/02/25 0947) documented in this encounter ED Notes * Dorina Shetty RN - 10/01/2025 5:20 AM EDT merchandise manager spoke with MD Thorpe regarding [facility] not taking this patient d/t her being on NRB and askedif there was an alternative supplemental O2 method that could be attempted, to which he responded that he did not understand the hesitation for them to take the patient and also said he did not feel she was appropriate to be on high-flow NC but she did not meet critical care criteria, said he wouldspeak with [facility]S and [facility] himself to determine next steps. Maurilio came to ED and assessed patient again, ordered ABG and said if ABG results indicated stability in patient condition that he would order high-flow. Following ABG results showing increased CO2 and decreased pH levels, Maurilio ordered BiPAP. [facility] charge called ED charge, with [facility] involved in telephone conversation, and said that the BiPAP must be initiated in the ED and to monitor the patient for at least 30 min and that she could proceed to be transported to IP floor as long as she did not require 100% FiO2 on the BiPAP. [facility] called EDcharge following this conversation and said monitoring for 15 min would be appropriate and if she co uld maintain SpO2 >92% on less than 100% FiO2 then the patient could be transported to IP room. * Nicho Head RN - 10/01/2025 3:55 AM EDT Attempted nursing report to 2F.. 2F requested pt get put on high flow nasal cannula. Admitting MD stated that pt does not need high flow nasal cannula and wants pt moved to a floor that would be finewith NRB 10L. Unit changed to 4G per Flying Instructor. Attempted nursing report to 4G. 4G Charge RNstated that they don't typically take pts on NRB. merchandise manager Kylie notified who notified Flying Instructor. merchandise manager attempting to contact admitting MD at this time. * Nicho Head RN - 09/30/2025 11:46 PM EDT This RN came out to nursing station noting monitor alarm. Noted pt O2 Sat at 74%. RABIA Cam already at bedside on this RN arrival to pt room. O2 increased to 8L simple mask without improvement. O2 increased to 10L without improvement. MD Anthony called to bedside while placing NRB at 15L. O2 sats improved to 75%. O2 increased to 25L with sats improving to 87% and then up to 95%. O2 titrated down to 15L with pt sats staying at 95%. Titrated down to 10L with O2 staying at 94%. Pt to stay on NRB at this time until pain medication wears off. * Orlando Anthony MD - 09/30/2025 9:55 PM EDT EMERGENCY DEPARTMENT ENCOUNTER Name: Linda Arteaga Date of encounter: 09/30/2025 PCP: Michael Colón MD : 1960 Room Number: HPI: Independent Historians: Patient and EMS A complete HPI/ROS/PMH/PSH/SH/FH are unobtainable due to: Significant abdominal pain Linda Arteaga is a 65 y.o. female with a past medical history as noted below who presents complaining of epigastric abdominal pain. States that her epigastric abdominal pain began this morning and feels similar to chronic pancreatitis in the past, radiating to her back. States that she has feltmore generally weak and lethargic. EMS denies any change in mental status. On chronic 3 L nasal cannula in the setting of COPD. Review of prior external notes (non-ED) -and- Review of prior external test results outside of thisencounter: Hospital medicine discharge summary from 05/06/2023 notable for past medical history of chronic pancreatitis with port in place, hypertension, atrial fibrillation on Xarelto, COPD on 2.5 to 3 L at baseline, and GERD. Admitted at that time with concern for port cellulitis. Port was removed and grew MSSA. PAST MEDICAL HISTORY Past Medical History: Diagnosis Date A-fib Anxiety ARF (acute renal failure) Arthritis CAD (coronary artery disease) stents x 5 per pt COPD (chronic obstructive pulmonary disease) home 02 at 2.5-3L at all time Diabetes mellitus Disease of thyroid gland Elevated cholesterol GERD (gastroesophageal reflux disease) Hypertension Internal hemorrhoids Pancreatitis Pacreatic divisum PONV (postoperative nausea and vomiting) Sleep apnea uses CPAP occasionally Stroke 2018 or 2019 per pt, no residual one-sided weakness Supplemental oxygen dependent 2-3L NC PAST SURGICAL HISTORY Past Surgical History: Procedure Laterality Date APPENDECTOMY CHOLECYSTECTOMY COLONOSCOPY CORONARY ANGIOPLASTY WITH STENT PLACEMENT x5 total; most recent 3 stents in 2019 - per pt. ENDOSCOPY HYSTERECTOMY PAIN PUMP INSERTION/REVISION right lower back PANCREAS SURGERY PORTACATH PLACEMENT TONSILLECTOMY VENOUS ACCESS DEVICE (PORT) REMOVAL N/A 04/29/2023 Procedure: PORT REMOVAL; Surgeon: Tha Sanchez MD; Location: REPLACED BY [facility]; Service: General; Laterality: N/A; FAMILY HISTORY Family History Problem Relation Name Age of Onset Colon polyps Neg Hx Colon cancer Neg Hx SOCIAL HISTORY Social History Socioeconomic History Marital status: Tobacco Use Smoking status: Former Current packs/day: 0.00 Average packs/day: 0.3 packs/day for 45.0 years (11.3 ttl pk-yrs) Types: Cigarettes Start date: 12/01/1975 Quit date: 12/01/2020 Years since quittin.8 Smokeless tobacco: Never Tobacco comments: weaning off Vaping Use Vaping status: Every Day Substances: Nicotine Devices: Pre-filled pod Substance and Sexual Activity Alcohol use: No Drug use: No Sexual activity: Defer ALLERGIES Allergies Allergen Reactions Ciprofloxacin GI Intolerance Can't take with cymbalta Demerol [Meperidine] Hives and GI Intolerance Toradol [Ketorolac Tromethamine] Hives and GI Intolerance Tramadol Hives and GI Intolerance PHYSICAL EXAM I have reviewed the triage vital signs and nursing notes. ED Triage Vitals Temp Pulse Resp BP SpO2 -- -- -- -- -- Temp src Heart Rate Source Patient Position BP Location FiO2 (%) -- -- -- -- -- Physical Exam Vitals and nursing note reviewed. Constitutional: General: She is in acute distress. Appearance: She is ill-appearing. She is not toxic-appearing. HENT: Head: Normocephalic and atraumatic. Right Ear: External ear normal. Left Ear: External ear normal. Nose: Nose normal. Mouth/Throat: Mouth: Mucous membranes are moist. Pharynx: Oropharynx is clear. Eyes: Extraocular Movements: Extraocular movements intact. Pupils: Pupils are equal, round, and reactive to light. Cardiovascular: Rate and Rhythm: Normal rate and regular rhythm. Pulses: Normal pulses. Heart sounds: Normal heart sounds. Pulmonary: Effort: Pulmonary effort is normal. No respiratory distress. Breath sounds: Normal breath sounds. Abdominal: General: There is no distension. Palpations: Abdomen is soft. Tenderness: There is abdominal tenderness (Epigastric). There is no guarding or rebound. Musculoskeletal: General: No signs of injury. Normal range of motion. Cervical back: Neck supple. Skin: General: Skin is warm and dry. Neurological: General: No focal deficit present. Mental Status: She is alert and oriented to person, place, and time. Mental status is at baseline. Cranial Nerves: No cranial nerve deficit. Sensory: No sensory deficit. Motor: No weakness. Results LAB RESULTS Labs from Hospital Encounter 09/30/25 Respiratory Panel PCR w/COVID-19(SARS-CoV-2) CHRISTINA/JUANA/BELEN/PAD/COR/TYRA In-House, [employer]OCK [employer] Swab in UTM/VTM, 2 HR TAT - Swab, Nasopharynx Specimen: Nasopharynx; Swab Result Value Ref Range ADENOVIRUS, PCR Not Detected Not Detected Coronavirus 229E Not Detected Not Detected Coronavirus HKU1 Not Detected Not Detected Coronavirus NL63 Not Detected Not Detected Coronavirus OC43 Not Detected Not Detected COVID19 Not Detected Not Detected - Ref. Range Human Metapneumovirus Not Detected Not Detected Human Rhinovirus/Enterovirus Not Detected Not Detected Influenza A PCR Not Detected Not Detected Influenza B PCR Not Detected Not Detected Parainfluenza Virus 1 Not Detected Not Detected Parainfluenza Virus 2 Not Detected Not Detected Parainfluenza Virus 3 Not Detected Not Detected Parainfluenza Virus 4 Not Detected Not Detected RSV, PCR Not Detected Not Detected Bordetella pertussis pcr Not Detected Not Detected Bordetella parapertussis PCR Not Detected Not Detected Chlamydophila pneumoniae PCR Not Detected Not Detected Mycoplasma pneumo by PCR Not Detected Not Detected Comprehensive Metabolic Panel Specimen: Blood Result Value Ref Range Glucose 104 (H) 65 - 99 mg/dL BUN 18.6 8.0 - 23.0 mg/dL Creatinine 1.29 (H) 0.57 - 1.00 mg/dL Sodium 137 136 - 145 mmol/L Potassium 3.2 (L) 3.5 - 5.2 mmol/L Chloride 95 (L) 98 - 107 mmol/L CO2 28.8 22.0 - 29.0 mmol/L Calcium 8.5 (L) 8.6 - 10.5 mg/dL Total Protein 6.9 6.0 - 8.5 g/dL Albumin 3.9 3.5 - 5.2 g/dL ALT (SGPT) 6 1 - 33 U/L AST (SGOT) 15 1 - 32 U/L Alkaline Phosphatase 89 39 - 117 U/L Total Bilirubin 0.5 0.0 - 1.2 mg/dL Globulin 3.0 gm/dL A/G Ratio 1.3 g/dL BUN/Creatinine Ratio 14.4 7.0 - 25.0 Anion Gap 13.2 5.0 - 15.0 mmol/L eGFR 46.2 (L) >60.0 mL/min/1.73 Lipase Specimen: Blood Result Value Ref Range Lipase 73 (H) 13 - 60 U/L High Sensitivity Troponin T Specimen: Blood Result Value Ref Range HS Troponin T 9 <14 ng/L CBC Auto Differential Specimen: Blood Result Value Ref Range WBC 11.01 (H) 3.40 - 10.80 10*3/mm3 RBC 4.35 3.77 - 5.28 10*6/mm3 Hemoglobin 13.0 12.0 - 15.9 g/dL Hematocrit 40.5 34.0 - 46.6 % MCV 93.1 79.0 - 97.0 fL MCH 29.9 26.6 - 33.0 pg MCHC 32.1 31.5 - 35.7 g/dL RDW 14.8 12.3 - 15.4 % RDW-SD 51.1 37.0 - 54.0 fl MPV 11.3 6.0 - 12.0 fL Platelets 232 140 - 450 10*3/mm3 Neutrophil % 69.3 42.7 - 76.0 % Lymphocyte % 21.9 19.6 - 45.3 % Monocyte % 5.2 5.0 - 12.0 % Eosinophil % 2.7 0.3 - 6.2 % Basophil % 0.5 0.0 - 1.5 % Immature Grans % 0.4 0.0 - 0.5 % Neutrophils, Absolute 7.63 (H) 1.70 - 7.00 10*3/mm3 Lymphocytes, Absolute 2.41 0.70 - 3.10 10*3/mm3 Monocytes, Absolute 0.57 0.10 - 0.90 10*3/mm3 Eosinophils, Absolute 0.30 0.00 - 0.40 10*3/mm3 Basophils, Absolute 0.06 0.00 - 0.20 10*3/mm3 Immature Grans, Absolute 0.04 0.00 - 0.05 10*3/mm3 nRBC 0.0 0.0 - 0.2 /100 WBC Blood Gas, Venous With Co-Ox Specimen: Venous Blood Result Value Ref Range Site Nurse/Dr Draw pH, Venous 7.377 7.310 - 7.410 pH Units pCO2, Venous 54.0 (H) 41.0 - 51.0 mm Hg pO2, Venous 33.4 27.0 - 53.0 mm Hg HCO3, Venous 31.7 (H) 22.0 - 28.0 mmol/L Base Excess, Venous 5.1 (H) -2.0 - 2.0 mmol/L Hemoglobin, Blood Gas 13.8 (L) 14 - 18 g/dL Oxyhemoglobin Venous 57.5 % Methemoglobin Venous 0.5 % Carboxyhemoglobin Venous 6.7 % CO2 Content 33.4 (H) 22 - 33 mmol/L Temperature 37.0 Barometric Pressure for Blood Gas Modality Nasal Cannula FIO2 40 % Rate 0 Breaths/minute PIP 0 cmH2O IPAP 0 cm H2O EPAP 0 cm H2O Magnesium Specimen: Blood Result Value Ref Range Magnesium 1.3 (L) 1.6 - 2.4 mg/dL BNP Specimen: Blood Result Value Ref Range proBNP 300.0 0.0 - 900.0 pg/mL High Sensitivity Troponin T 1Hr Specimen: Blood Result Value Ref Range HS Troponin T 10 <14 ng/L Troponin T Numeric Delta 1 Abnormal if >/=3 ng/L RADIOLOGY CT Abdomen Pelvis With Contrast Result Date: 09/30/2025 CT ABDOMEN PELVIS W CONTRAST Date of Exam: 09/30/2025 10:55 PM EDT Indication: epigastric abd pain.Comparison: 05/05/2023. Technique: Axial CT images were obtained of the abdomen and pelvis following the uneventful intravenous administration of iodinated contrast. Reconstructed coronal and sagittal images were also obtained. Automated exposure control and iterative construction methods were used. Findings: Findings in the chest discussed in a separate report. Interval resolution of previously seen hepatic steatosis. Stable cholecystectomy. The bile ducts, pancreas, spleen, stomach and duodenumappear unremarkable. Adrenal glands are normal. Left kidney is normal. There is a simple cyst at the right kidney measuring 34 mm, unchanged. No hydronephrosis. Urinary bladder is nondistended. Patient is status post hysterectomy. Ovaries are not seen. Appendix is not seen. There is colonic diverticulosis. No small bowel distention. Moderate atherosclerosis. No aneurysm. No ascites, pneumoperitoneum or lymphadenopathy. There is a pain pump in the right flank soft tissues. There is an arthrodesis device at the right SI joint. There is severe productive DJD at the right hip and minimal disease of the left hip. There are moderate spinal degenerative changes. No acute osseous abnormality. Impression: Impression: 1.No acute abdominal or pelvic abnormality. 2.Interval resolution of hepatic steatosis. 3.Colonic diverticulosis. 4.Atherosclerosis. 5.Severe right hip DJD. Electronically Signed: Abraham Stephen MD 09/30/2025 11:57 PM EDT Workstation ID: [id number] CT Angiogram Chest Pulmonary Embolism Result Date: 09/30/2025 CT ANGIOGRAM CHEST PULMONARY EMBOLISM Date of Exam: 09/30/2025 10:55 PM EDT Indication: chest pain.Comparison: Chest radiograph 09/30/[address] 04/28/2023. Technique: Axial CT images were obtained of the chest after the uneventful intravenous administration of iodinated contrast utilizing pulmonary embolism protocol. In addition, a 3-D volume rendered image was created for interpretation.Reconstructed coronal and sagittal images were also obtained. Automated exposure control and iterative construction methods were used. Findings: The thyroid, trachea and esophagus appear within normal limits. Heart size is normal. There are coronary stents and coronary artery calcifications. Mild aortic atherosclerosis. There are calcified mediastinal granulomas. There is no evidence of pulmonaryembolism. No pericardial effusion or mediastinal lymphadenopathy. The lungs are hypoinflated. Thereappears to be interlobular septal thickening and patchy bilateral airspace disease along with peribronchial thickening. These findings could be due to pulmonary edema or multifocal pneumonia. Evaluation is somewhat limited due to expiratory phase required for this type of exam. No acute findings inthe superficial soft tissues. No acute findings in the upper abdomen. Patient is status post cholecystectomy. No acute osseous abnormality. There are mild thoracic degenerative changes. There are old healed right-sided rib fractures. Impression: Impression: 1.No evidence of pulmonary embolism. 2.Hypoinflated lungs with interlobularseptal thickening and patchy bilateral airspace disease. This could be due to pulmonary edema or multifocal pneumonia. 3.Coronary artery disease. Electronically Signed: Abraham Stephen MD 09/30/2025 11:54 PM EDT Workstation ID: [id number] XR Chest 1 View Result Date: 09/30/2025 XR CHEST 1 VW Date of Exam: 09/30/2025 10:13 PM EDT Indication: epigastric abd pain. Comparison: 05/04/2023 Findings: Right chest wall port distal lead tip overlying the right atrium. Enlarged cardiac silhouette. Low lung volumes. Emphysema. No focal airspace opacity, pleural effusion, or pneumothorax. Healed right rib fractures. No acute bone abnormality. Impression: Impression: 1.Emphysema. No acute cardiopulmonary abnormality. Electronically Signed: Abraham Espinosa MD 09/30/2025 10:38 PM EDT Workstation ID: [id number] Telemetry Scan Final Result ECG 12 Lead Chest Pain Preliminary Result Test Reason : Chest Pain Blood Pressure : */* mmHG Vent. Rate : 73 BPM Atrial Rate : 73 BPM P-R Int : 192 ms QRS Dur : 94 ms QT Int : 474 ms P-R-T Axes : 73 42 60 degrees QTcB Int : 522 ms Poor data quality, interpretation may be adversely affected Sinus rhythm with occasional premature ventricular complexes T wave abnormality, consider anterior ischemia Prolonged QT Abnormal ECG When compared with ECG of 17-Feb-2024 09:47, Sinus rhythm has replaced Atrial flutter ST no longer elevated in Inferior leads T wave inversion now evident in Anterior leads QT has lengthened Referred By: ED Confirmed By: ORDERS PLACED DURING THIS VISIT: Orders Placed This Encounter Procedures Respiratory Panel PCR w/COVID-19(SARS-CoV-2) [facility]RISTINA/JUANA/BELEN/PAD/COR/TYRA In-House, [employer] Swab in UTM/VTM, 2 HR TAT - Swab, Nasopharynx XR Chest [address] Angiogram Chest Pulmonary Embolism CT Abdomen Pelvis With Contrast Comprehensive Metabolic Panel Lipase Urinalysis With Microscopic If Indicated (No Culture) - Urine, Clean Catch High Sensitivity Troponin T CBC Auto Differential Blood Gas, Venous -With Co-Ox Panel: Yes Blood Gas, Venous With Co-Ox Magnesium BNP High Sensitivity Troponin T 1Hr Hemoglobin & Hematocrit, Blood CBC Auto Differential Basic Metabolic Panel NPO Diet NPO Type: Strict NPO Vital Signs Intake & Output Weigh Patient Oral Care Place Sequential Compression Device Maintain Sequential Compression Device Maintain IV Access Telemetry - Place Orders & Notify Provider of Results When Patient Experiences Acute Chest Pain, Dysrhythmia or Respiratory Distress May Be Off Telemetry for Tests Notify Provider (With Default Parameters) Inpatient Gastroenterology Consult Incentive Spirometry POC Glucose 4x Daily Before Meals & at Bedtime ECG 12 Lead Chest Pain Telemetry Scan Access Port Insert Peripheral IV Initiate Observation Status CBC & Differential MEDICATIONS GIVEN IN ER Medications ALPRAZolam (XANAX) tablet 0.5 mg (has no administration in time range) atorvastatin (LIPITOR) tablet 40 mg (has no administration in time range) DULoxetine (CYMBALTA) DR capsule 60 mg (has no administration in time range) gabapentin (NEURONTIN) capsule 600 mg (has no administration in time range) levothyroxine (SYNTHROID, LEVOTHROID) tablet 100 mcg (has no administration in time range) lisinopril (PRINIVIL,ZESTRIL) tablet 5 mg (has no administration in time range) metoprolol succinate XL (TOPROL-XL) 24 hr tablet 12.5 mg (has no administration in time range) QUEtiapine (SEROquel) tablet 50 mg (has no administration in time range) traZODone (DESYREL) tablet 100 mg (has no administration in time range) rivaroxaban (XARELTO) tablet 20 mg ( Oral Dose Auto Held 10/09/25 1800) sodium chloride 0.9 % flush 10 mL (has no administration in time range) sodium chloride 0.9 % flush 10 mL (has no administration in time range) sodium chloride 0.9 % infusion 40 mL (has no administration in time range) nitroglycerin (NITROSTAT) SL tablet 0.4 mg (has no administration in time range) Potassium Replacement - Follow Nurse / BPA Driven Protocol (has no administration in time range) Magnesium Standard Dose Replacement - Follow Nurse / BPA Driven Protocol (has no administration in time range) Phosphorus Replacement - Follow Nurse / BPA Driven Protocol (has no administration in time range) Calcium Replacement - Follow Nurse / BPA Driven Protocol (has no administration in time range) acetaminophen (TYLENOL) tablet 650 mg (has no administration in time range) Or acetaminophen (TYLENOL) 160 MG/5ML oral solution 650 mg (has no administration in time range) Or acetaminophen (TYLENOL) suppository 650 mg (has no administration in time range) sennosides-docusate (PERICOLACE) 8.6-50 MG per tablet 2 tablet (has no administration in time range) And polyethylene glycol (MIRALAX) packet 17 g (has no administration in time range) And bisacodyl (DULCOLAX) EC tablet 5 mg (has no administration in time range) And bisacodyl (DULCOLAX) suppository 10 mg (has no administration in time range) pantoprazole (PROTONIX) injection 80 mg (has no administration in time range) And pantoprazole (PROTONIX) injection 40 mg (has no administration in time range) Pharmacy To Dose: Ceftriaxone (has no administration in time range) doxycycline (MONODOX) capsule 100 mg (has no administration in time range) predniSONE (DELTASONE) tablet 40 mg (has no administration in time range) dextrose (GLUTOSE) oral gel 15 g (has no administration in time range) dextrose (D50W) (25 g/50 mL) IV injection 25 g (has no administration in time range) glucagon (GLUCAGEN) injection 1 mg (has no administration in time range) insulin regular (humuLIN R,novoLIN R) injection 2-7 Units (has no administration in time range) HYDROmorphone (DILAUDID) injection 0.5 mg (has no administration in time range) lactated ringers infusion (has no administration in time range) cefTRIAXone (ROCEPHIN) 2,000 mg in sodium chloride 0.9 % 100 mL MBP (has no administration in time range) sodium chloride 0.9 % bolus 500 mL (0 mL Intravenous Stopped 09/30/252353) HYDROmorphone (DILAUDID) injection 0.5 mg (0.5 mg Intravenous Given 09/30/252203) ondansetron (ZOFRAN) injection 4 mg (4 mg Intravenous Given 09/30/252203) ipratropium-albuterol (DUO-NEB) nebulizer solution 6 mL (6 mL Nebulization Given 09/30/252206) magnesium sulfate 2g/50 mL (PREMIX) infusion (0 g Intravenous Stopped 09/30/252353) HYDROmorphone (DILAUDID) injection 0.5 mg (0.5 mg Intravenous Given 09/30/252320) iopamidol (ISOVUE-370) 76 % injection 100 mL (100 mL Intravenous Given 09/30/252308) cefTRIAXone (ROCEPHIN) 2,000 mg in sodium chloride 0.9 % 100 mL MBP (0 mg Intravenous Stopped 10/01/25 0122) doxycycline (VIBRAMYCIN) 100 mg in sodium chloride 0.9 % 100 mL MBP (0 mg Intravenous Stopped 10/01/25 0302) dexAMETHasone (DECADRON) injection 10 mg (10 mg Intravenous Given 10/01/25 0210) PROCEDURES Procedures PROGRESS, DATA ANALYSIS, CONSULTS, AND MEDICAL DECISION MAKING All labs, radiology studies, and EKG's have been independently viewed and interpreted by me. Discussion below represents my analysis of pertinent findings related to patient's condition, differentialdiagnosis, treatment plan and final disposition. My differential diagnosis includes but is not limited to chronic pancreatitis, bowel obstruction, mesenteric ischemia, ACS, pneumonia, pulmonary embolism. ED Course as of 10/01/25324Sep 30, [id number] On arrival, patient was normotensive, nontachycardic, afebrile, satting in the 80s on her baseline 3 L nasal cannula. Titrated up to 5 L nasal cannula. Appears to be in significant distress withepigastric tenderness. [AC] 2211 pH, Venous: 7.377 wnl [AC] 2211 pCO2, Venous(!): 54.0 Compensated hypercarbia [AC] 2211 ECG 12 Lead Chest Pain Independently interpreted by me, revealing a sinus rhythm with occasional PVCs at a rate of 73, [id number], normal axis, no STEMI [AC] 2212 Administering 2 g of magnesium for prolonged QTc in the setting of patient requiring antiemetics [AC] 2220 WBC(!): 11.01 Mild leukocytosis [AC] 2245 Creatinine(!): 1.29 Independently interpreted by me, similar to prior [AC] 224 Lipase(!): 73 Chronically elevated, similar to prior [AC] 224 HS Troponin T: 9 Normal, delta pending [AC] 2245 ALT (SGPT): 6 Normal [AC] 2245 AST (SGOT): 15 Normal [AC] 2245 Total Bilirubin: 0.5 Normal [AC] 2245 XR Chest 1 View Independently interpreted by me, revealing no acute cardiopulmonary pathology [AC] 2344 Magnesium(!): 1.3 Hypomagnesemic, repleted IV already [AC] 2344 proBNP: 300.0 Normal [AC] 234 I was called to patient's bedside after she had a desaturation event. This was after administering Dilaudid. She had tolerated the 0.5 mg well however had a recurrence of her pain and was redosed. She was somnolent but arousable and responded to painful stimuli. Placed on nonrebreather and hadimprovement, was able to be titrated back down [AC] Sat Oct 01, [address] Abdomen Pelvis With Contrast Independently interpreted by me, revealing no acute intra-abdominal pathology [AC] 0002 CT Angiogram Chest Pulmonary Embolism Independently interpreted by me, revealing of patchy bilateral airspace disease, likely representing pneumonia [AC] 0003 Initiated on broad-spectrum antibiotics for bilateral pneumonia. Will use doxycycline given prolonged QTc and azithromycin as a QTc prolonging agent [AC] 0023 Troponin T Numeric Delta: 1 No delta [AC] 0127 Patient titrated back down to 6 L nasal cannula [AC] 0127 Discussed case and presentation with hospitalist Dr. Thorpe for admission in setting of bilateral pneumonia and acute on chronic hypoxic respiratory failure [AC] 0142 Respiratory Panel PCR w/COVID-19(SARS-CoV-2) [facility]STINA/JUANA/BELEN/PAD/COR/TYRA In- House, [employer] Swab in UTM/VTM, 2 HR TAT - Swab, Nasopharynx Negative [AC] ED Course User Index [AC] Orlando Anthony MD OF 03:25 EDT VITALS: BP - 110/85 HR - 69 TEMP - 98.2 ??F (36.8 ??C) (Oral) O2 SATS - 93% DIAGNOSIS Final diagnoses: Pneumonia of both lower lobes due to infectious organism Acute on chronic hypoxic respiratory failure Epigastric abdominal pain DISPOSITION ED Disposition ED Disposition Decision to Admit Condition -- Comment Level of Care: Telemetry [5] Diagnosis: COPD exacerbation [[id number]] Admitting Physician: FRANKLIN THORPE [[id number]] Attending Physician: FRANKLIN THORPE [[id number]] Is patient appropriate for Inpatient Observation Unit?: Yes [1] Please note that portions of this note were completed with a voice recognition program. Note Disclaimer: At [facility], we believe that sharing information builds trust and better relationships. You are receiving this note because you recently visited [facility]. It is possible you will see health information before a provider has talked with you about it. This kind of information can be easy to misunderstand. To help you fully understand what it means for your health, we urge you to discuss this note with your provider. Orlando Anthony MD 10/01/255 documented in this encounter Miscellaneous Notes * Case Management/Social Work - Courtney Dalton RN - 10/05/2025 1:54 PM EST Case Management Discharge Note Final Note: Elliot has orders for discharge. Spoke to liaison for [facility] to advise of discharge today. Spoke with patient at bedside regarding discharge plan who indicates she does not have an Oxygen tank to travel home and her fiance will not be able to bring one. No other needs verbalized. Called patient DME provider, Deyanira, who will have tank delievered to patient room today. Patient plan is to discharge home with [facility] today via car with family to transport. Selected Continued Care - Admitted Since 09/30/2025 Destination No services have been selected for the patient. Durable Medical Equipment Coordination complete. Service Provider Services Address Phone Fax Patient Preferred [facility] Oxygen Equipment and Accessories [address], [facility] [address] [phone] -- Dialysis/Infusion No services have been selected for the patient. Home Medical Care Coordination complete. Service Provider Services Address Phone Fax Patient Preferred [facility] Home Rehabilitation, Home Nursing [address], [address], [facility] [address] [phone] -- Therapy No services have been selected for the patient. Community & DME No services have been selected for the patient. Community Resources No active community resources. Final Discharge Disposition Code: 06 - home with home health care * Case Management/Social Work - Courtney Dalton RN - 10/04/2025 3:51 PM EST Continued Stay Note [place] Patient Name: Linda Arteaga Today's Date: 10/04/2025 Admit Date: 09/30/2025 Plan: update Discharge Plan Row Name 10/04/25 7420 Plan Plan update Patient/Family in Agreement with Plan yes Plan Comments Spoke with patient at bedside this morning who reports she is feeling better every day. CM advised will contact [facility] when she is discharged home, patient verbalizes understanding and agreement with plan. CM following. Patient plan is to discharge home with [facility] via car with her daughter to transport. Final Discharge Disposition Code 06 - home with home health care Discharge Codes No documentation. Expected Discharge Date and Time Expected Discharge Date Expected Discharge Time Oct 04, 2025 Courtney Dalton RN * Case Management/Social Work - Marilyn Wetzel RN - 10/03/2025 1:55 PM EST Continued Stay Note [place] Patient Name: Linda Arteaga Today's Date: 10/03/2025 Admit Date: 09/30/2025 Plan: home with Discharge Plan Row Name 10/03/25 1343 Plan Plan home with Patient/Family in Agreement with Plan yes Plan Comments CM spoke with patient over the phone. Patient agrees to HH at [place]. CM informed the nurse that [facility] in [facility] is a resource the patient can contact for housing and rental assistance. CM spoke with Kirstie at [facility] and nurse is to call Kirstie at [phone] when patient is discharged. CM will continue to follow. Final Discharge Disposition Code 06 - home with home health care Discharge Codes No documentation. Expected Discharge Date and Time Expected Discharge Date Expected Discharge Time Oct 04, 2025 Marilyn Wetzel, LAITH * MBS/VFSS/SANDRA - Marissa Flowers MS [facility]-FRUIT CHECKER - 10/03/2025 11:04 AM EST Images from the original note were not included. Acute Care - Speech Language Pathology Swallow Initial Evaluation [facility] Modified Barium Swallow Study (MBS) Patient Name: Linda Arteaga : 1960 Today's Date: 10/03/2025 Admit Date: 09/30/2025 Visit Dx: ICD-10-CM ICD-9-CM 1. Pneumonia of both lower lobes due to infectious organism J18.9 486 2. Acute on chronic hypoxic respiratory failure J96.21 518.84 799.02 3. Epigastric abdominal pain R10.13 789.06 4. 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 Gastroparesis Steatorrhea, pancreatic Hematochezia History of colonic polyps History of ERCP Morbidly obese Acute renal failure, unspecified acute renal failure type Special screening for malignant neoplasms, colon Dysphagia History of heart artery stent COPD exacerbation Respiratory failure Past Medical History: Diagnosis Date A-fib Anxiety ARF (acute renal failure) Arthritis CAD (coronary artery disease) stents x 5 per pt COPD (chronic obstructive pulmonary disease) home 02 at 2.5-3L at all time Diabetes mellitus Disease of thyroid gland Elevated cholesterol GERD (gastroesophageal reflux disease) Hypertension Internal hemorrhoids Pancreatitis Pacreatic divisum PONV (postoperative nausea and vomiting) Sleep apnea uses CPAP occasionally Stroke 2018 or 2019 per pt, no residual one-sided weakness Supplemental oxygen dependent 2-3L NC Past Surgical History: Procedure Laterality Date APPENDECTOMY CHOLECYSTECTOMY COLONOSCOPY CORONARY ANGIOPLASTY WITH STENT PLACEMENT x5 total; most recent 3 stents in 2019 - per pt. ENDOSCOPY HYSTERECTOMY PAIN PUMP INSERTION/REVISION right lower back PANCREAS SURGERY PORTACATH PLACEMENT TONSILLECTOMY VENOUS ACCESS DEVICE (PORT) REMOVAL N/A 04/29/2023 Procedure: PORT REMOVAL; Surgeon: Tha Sanchez MD; Location: [facility] OR; Service: General; Laterality: N/A; FRUIT CHECKER Recommendation and Plan Recommended discharge disposition is based on the functional assessment performed by PT/OT/Speech therapy (as applicable) and may not reflect the medical necessity determined by your provider or services covered by an individual patient's insurance plan or patient resource. FRUIT CHECKER Swallowing Diagnosis: functional oral phase, functional pharyngeal phase, suspected esophageal dysphagia (10/03/25999) FRUIT CHECKER Diet Recommendation: mechanical ground textures, thin liquids, other (see comments) (can adjustsolids to pt preference. Ground current preference r/t edentulous state.) (10/03/25 1000) Recommended Precautions and Strategies: reflux precautions (10/03/25999) FRUIT CHECKER Rec. for Method of Medication Administration: as tolerated (10/03/25999) Monitor for Signs of Aspiration: no problems identified requiring continued intervention (10/03/25 1000) Recommended Diagnostics: No further FRUIT CHECKER services recommended (10/03/25 1000) Swallow Criteria for Skilled Therapeutic Interventions Met: no problems identified which require skilled intervention (10/03/25 1000) Anticipated Discharge Disposition (FRUIT CHECKER): No further FRUIT CHECKER services warranted (10/03/25 1000) Therapy Frequency (Swallow): evaluation only (10/03/25 1000) SWALLOW EVALUATION (Last 72 Hours) FRUIT CHECKER Adult Swallow Evaluation Row Name 10/03/25 1000 10/02/25 0934 Rehab Evaluation Document Type discharge evaluation/summary -SM evaluation -CH Subjective Information no complaints -SM no complaints -CH Patient Observations alert;cooperative -SM alert;cooperative;agree to therapy -CH Patient/Family/Caregiver Comments/Observations -- none present -CH Patient Effort good -SM good -CH Symptoms Noted During/After Treatment -- none - Oral Care -- oral rinse provided - General Information Patient Profile Reviewed yes -SM yes - Pertinent History Of Current Problem -- Hx CVA, CAD, polysubstance abuse, esophageal stricture withpast dilations (last one several years ago) CXR: increasing diffuse opacities, concerns for pulmonary edema v. infectious process. - Current Method of Nutrition mechanical ground textures;thin liquids -SM regular textures;thin liquids - Precautions/Limitations, Vision -- WFL;for purposes of eval -CH Precautions/Limitations, Hearing -- WFL;for purposes of eval -CH Prior Level of Function-Communication -- WFL - Prior Level of Function-Swallowing -- soft to chew - Plans/Goals Discussed with -- patient;agreed upon - Barriers to Rehab -- none identified - Patient's Goals for Discharge -- return home;return to all previous roles/activities - Pain Pretreatment Pain Rating 0/10 - no pain -SM 0/10 - no pain - Posttreatment Pain Rating 0/10 - no pain -SM 0/10 - no pain - Oral Motor Structure and Function Dentition Assessment -- missing teeth;other (see comments);upper dentures/partial in place no lowerteeth, no denture plate. - Secretion Management -- WNL/WFL - Mucosal Quality -- moist, healthy - Volitional Swallow -- WFL - Oral Musculature and Cranial Nerve Assessment Oral Motor General Assessment -- L - General Eating/Swallowing Observations Respiratory Support Currently in Use -- nasal cannula - O2 Liters -- 3L - Eating/Swallowing Skills -- self-fed;appropriate self-feeding skills observed - Positioning During Eating -- upright 90 degree;upright in bed - Utensils Used spoon;cup;straw -SM spoon;cup;straw - Consistencies Trialed thin liquids;pureed;regular textures -SM ice chips;thin liquids;pureed;regular textures - Pre SpO2 (%) -- 95 -CH Post SpO2 (%) -- 94 -CH Clinical Swallow Eval Oral Prep Phase -- impaired - Oral Transit -- WFL - Oral Residue -- WFL - Pharyngeal Phase -- no overt signs/symptoms of pharyngeal impairment - Esophageal Phase -- suspected esophageal impairment - Oral Prep Concerns Oral Prep Concerns -- inefficient mastication;other (see comments) d/t missing dentition, recently had lowers pulled, has no lower plate yet - Inefficient Mastication -- regular consistencies - Esophageal Phase Concerns Esophageal Phase Concerns -- sensation of material sticking - Sensation of Material Sticking -- all consistencies;other (see comments) hx dilation - MBS/VFSS Interpretation Oral Prep Phase WFL -SM -- Oral Transit Phase WFL -SM -- Oral Residue WFL -SM -- Oral Phase, Comment Prolonged mastication/manipulation 2' partially edentulous - -- Initiation of Pharyngeal Swallow Pharyngeal Phase functional pharyngeal phase of swallowing - -- Pharyngeal Phase, Comment Prominent cricopharyngeus with trace retention intermittently of thin liquids. Solid bolus passed through without difficulty. - -- Esophageal Phase Esophageal Phase esophageal retention with retrograde flow below PES - -- Esophageal Phase, Comment Pt's symptoms likely related to known GERD. - -- Swallowing Quality of Life Assessment Education and counseling provided -- Signs of aspiration;Risks of aspiration;Safest diet options;Oral care recommendations and rationale;Aspiration precautions - FRUIT CHECKER Evaluation Clinical Impression FRUIT CHECKER Swallowing Diagnosis functional oral phase;functional pharyngeal phase;suspected esophageal dysphagia - mild;oral dysphagia;R/O pharyngeal dysphagia;suspected esophageal dysphagia - Functional Impact -- risk of aspiration/pneumonia - Rehab Potential/Prognosis, Swallowing -- good, to achieve stated therapy goals - Swallow Criteria for Skilled Therapeutic Interventions Met no problems identified which require skilled intervention - demonstrates skilled criteria - Recommendations Therapy Frequency (Swallow) evaluation only - -- FRUIT CHECKER Diet Recommendation mechanical ground textures;thin liquids;other (see comments) can adjust solids to pt preference. Ground current preference r/t edentulous state. - mechanical ground textures;thin liquids - Recommended Diagnostics No further FRUIT CHECKER services recommended - VFSS (MBS);with esophageal screen - Recommended Precautions and Strategies reflux precautions - upright posture during/after eating;small bites of food and sips of liquid;general aspiration precautions;reflux precautions - Oral Care Recommendations -- Oral Care BID/PRN;Toothbrush - FRUIT CHECKER Rec. for Method of Medication Administration as tolerated - meds whole;with thin liquids;withpuree;as tolerated - Monitor for Signs of Aspiration no problems identified requiring continued intervention - yes;notify FRUIT CHECKER if any concerns -CH Anticipated Discharge Disposition (FRUIT CHECKER) No further FRUIT CHECKER services warranted - home -CH Demonstrates Need for Referral to Another Service -- gastroenterology;dedicated esophageal assessment - User Emerson (r) = Recorded By, (t) = Taken By, (c) = Cosigned By Initials Name Effective Dates Marissa Cerda MS CCC-FRUIT CHECKER 12/20/24 - Rissa Hidalgo MS CCC-FRUIT CHECKER 12/20/24 - EDUCATION The patient has been educated in the following areas: Dysphagia (Swallowing Impairment) Modified Diet Instruction. Time Calculation: Time Calculation- FRUIT CHECKER Row Name 10/03/25 1104 Time Calculation- FRUIT CHECKER FRUIT CHECKER Start Time 1000 -SM FRUIT CHECKER Received On 10/03/25 - Untimed Charges 07710-OB Motion Fluoro Eval Swallow Minutes 42 -SM Total Minutes Untimed Charges Total Minutes 42 -SM Total Minutes 42 -SM User Emerson (r) = Recorded By, (t) = Taken By, (c) = Cosigned By Initials Name Provider Type Marissa Cerda MS CCC-FRUIT CHECKER Speech and Language Pathologist Therapy Charges for Today Code Description Service Date Service Provider Modifiers Qty [id number] HC ST MOTION FLUORO EVAL SWALLOW 3 10/03/2025 Marissa Flowers MS CCC-FRUIT CHECKER GN 1 Marissa Flowers MS CCC-FRUIT CHECKER 10/03/2025 * Therapy Evaluation - Ekta Worthington, PT - 10/02/2025 2:01 PM EST Images from the original note were not included. Patient Name: Linda Arteaga : 1960 Today's Date: 10/02/2025 Admit Date: 09/30/2025 Visit Dx: ICD-10-CM ICD-9-CM 1. Pneumonia of both lower lobes due to infectious organism J18.9 486 2. Acute on chronic hypoxic respiratory failure J96.21 518.84 799.02 3. Epigastric abdominal pain R10.13 789.06 4. 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 Gastroparesis Steatorrhea, pancreatic Hematochezia History of colonic polyps History of ERCP Morbidly obese Acute renal failure, unspecified acute renal failure type Special screening for malignant neoplasms, colon Dysphagia History of heart artery stent COPD exacerbation Respiratory failure Past Medical History: Diagnosis Date A-fib Anxiety ARF (acute renal failure) Arthritis CAD (coronary artery disease) stents x 5 per pt COPD (chronic obstructive pulmonary disease) home 02 at 2.5-3L at all time Diabetes mellitus Disease of thyroid gland Elevated cholesterol GERD (gastroesophageal reflux disease) Hypertension Internal hemorrhoids Pancreatitis Pacreatic divisum PONV (postoperative nausea and vomiting) Sleep apnea uses CPAP occasionally Stroke 2018 or 2019 per pt, no residual one-sided weakness Supplemental oxygen dependent 2-3L NC Past Surgical History: Procedure Laterality Date APPENDECTOMY CHOLECYSTECTOMY COLONOSCOPY CORONARY ANGIOPLASTY WITH STENT PLACEMENT x5 total; most recent 3 stents in 2019 - per pt. ENDOSCOPY HYSTERECTOMY PAIN PUMP INSERTION/REVISION right lower back PANCREAS SURGERY PORTACATH PLACEMENT TONSILLECTOMY VENOUS ACCESS DEVICE (PORT) REMOVAL N/A 04/29/2023 Procedure: PORT REMOVAL; Surgeon: Tha Sanchez MD; Location: [facility]PLAC[facility]; Service: General; Laterality: N/A; General Information Row Name 10/02/25 1559 Physical Therapy Time and Intention Document Type evaluation -LO Mode of Treatment physical therapy - Row Name 10/02/25 1557 General Information Patient Profile Reviewed yes -LO Prior Level of Function independent:;all household mobility;community mobility;gait;transfer;driving Has a rollator but reports did not need an AD at home. baseline 2.5 liters of O2 -LO Existing Precautions/Restrictions fall;oxygen therapy device and L/min -LO Barriers to Rehab medically complex -LO Row Name 10/02/25 6950 Living Environment Current Living Arrangements home -LO People in Home significant other - Row Name 10/02/25 1559 Home Main Entrance Number of Stairs, Main Entrance two -LO Stair Railings, Main Entrance railings on both sides of stairs -LO Row Name 10/02/25 2258 Stairs Within Home, Primary Number of Stairs, Within Home, Primary none -LO Row Name 10/02/25 1559 Cognition Orientation Status (Cognition) oriented x 3 -LO Row Name 10/02/25 1559 Safety Issues/Impairments Affecting Functional Mobility Safety Issues Affecting Function (Mobility) at risk behavior observed;awareness of need for assistance;insight into deficits/self-awareness;judgment;safety precaution awareness -LO Impairments Affecting Function (Mobility) balance;endurance/activity tolerance;pain;strength;shortness of breath -LO User Emerson (r) = Recorded By, (t) = Taken By, (c) = Cosigned By Initials Name Provider Type Ekta Armstrogn PT Physical Therapist Mobility Row Name 10/02/25 1601 Bed Mobility Bed Mobility supine-sit -LO Supine-Sit [place] (Bed Mobility) supervision -LO Assistive Device (Bed Mobility) bed rails;head of bed elevated -LO Comment, (Bed Mobility) no physical assistance required, good sequencing -LO Row Name 10/02/25 1601 Transfers Comment, (Transfers) EOB> stand> recliner> stand> commode in BR> stand> recliner;CGA for all transfers for steadiness -LO Row Name 10/02/25 1601 Bed-Chair Transfer Bed-Chair [place] (Transfers) contact guard;verbal cues -LO Assistive Device (Bed-Chair Transfers) walker, front-wheeled -LO Row Name 10/02/25 1601 Sit-Stand Transfer Sit-Stand [place] (Transfers) contact guard;verbal cues -LO Assistive Device (Sit-Stand Transfers) other (see comments) none -LO Row Name 10/02/25 1601 Gait/Stairs (Locomotion) Fingal Level (Gait) contact guard -LO Assistive Device (Gait) other (see comments) none -LO Distance in Feet (Gait) 12 +12 -LO Deviations/Abnormal Patterns (Gait) bilateral deviations;stride length decreased -LO Bilateral Gait Deviations forward flexed posture -LO [place]ingal Level (Stairs) not tested -LO Comment, (Gait/Stairs) Ambulates without AD with CGA. One self corrected loss of balance noted whenentering bathroom. -LO User Emerson (r) = Recorded By, (t) = Taken By, (c) = Cosigned By Initials Name Provider Type Ekta Armstrong PT Physical Therapist Obj/Interventions Row Name 10/02/25 1604 Range of Motion Comprehensive General Range of Motion bilateral lower extremity ROM WFL - Row Name 10/02/25 1604 Strength Comprehensive (MMT) General Manual Muscle Testing (MMT) Assessment lower extremity strength deficits identified - Comment, General Manual Muscle Testing (MMT) Assessment BLE grossly 4/5 - Row Name 10/02/25 1604 Motor Skills Motor Skills functional endurance -LO Functional Endurance fair, reduced from basline. Requiring 4.5 liters of O2 for activity ( comparedto 2.5 liters at home) - Row Name 10/02/25 1604 Balance Balance Assessment sitting static balance;sitting dynamic balance;standing static balance;standing dynamic balance -LO Static Sitting Balance contact guard -LO Dynamic Sitting Balance contact guard -LO Position, Sitting Balance unsupported;sitting edge of bed -LO Static Standing Balance contact guard -LO Dynamic Standing Balance minimal assist;contact guard -LO Position/Device Used, Standing Balance other (see comments) none -LO Comment, Balance CGA no AD for safety in standing - Row Name 10/02/25 1604 Sensory Assessment (Somatosensory) Sensory Assessment (Somatosensory) LE sensation intact -LO User Emerson (r) = Recorded By, (t) = Taken By, (c) = Cosigned By Initials Name Provider Type Ekta Armstrong, PT Physical Therapist Goals/Plan Row Name 10/02/25 1609 Bed Mobility Goal 1 (PT) Activity/Assistive Device (Bed Mobility Goal 1, PT) rolling to left;rolling to right;scooting;sit to supine;supine to sit -LO [place]ingal Level/Cues Needed (Bed Mobility Goal 1, PT) independent -LO Time Frame (Bed Mobility Goal 1, PT) short term goal (STG);5 days - Row Name 10/02/25 1609 Transfer Goal 1 (PT) Activity/Assistive Device (Transfer Goal 1, PT) [id number]-tz-ygqka/tjaib-sx-exg;tva-ds-xilbi/fqmlp-rd-gld;car transfer -LO [place]al Level/Cues Needed (Transfer Goal 1, PT) independent -LO Time Frame (Transfer Goal 1, PT) novelties sales representative goal (LTG);10 days - Row Name 10/02/25 1609 Gait Training Goal 1 (PT) Activity/Assistive Device (Gait Training Goal 1, PT) gait (walking locomotion);decrease fall risk;increase endurance/gait distance;improve balance and speed -LO Fingal Level (Gait Training Goal 1, PT) independent -LO Distance (Gait Training Goal 1, PT) 50 -LO Time Frame (Gait Training Goal 1, PT) novelties sales representative goal (LTG);10 days - Row Name 10/02/25 1605 Balance Goal 1 (PT) Activity/Assistive Device (Balance Goal) standing static balance;standing dynamic balance;unsupported -LO [place]al Level/Cues Needed (Balance Goal 1, PT) independent -LO Time Frame (Balance Goal 1, PT) long-term goal (LTG);2 weeks - Row Name 10/02/25 1608 Stairs Goal 1 (PT) Activity/Assistive Device (Stairs Goal 1, PT) ascending stairs;descending stairs;decrease fall risk;improve balance and speed -LO [place]al Level/Cues Needed (Stairs Goal 1, PT) independent -LO Number of Stairs (Stairs Goal 1, PT) 2 -LO Time Frame (Stairs Goal 1, PT) long-term goal (LTG);10 days - Row Name 10/02/25 1602 Therapy Assessment/Plan (PT) Planned Therapy Interventions (PT) balance training;bed mobility training;gait training;home exercise program;stair training;patient/family education;neuromuscular re-education;strengthening;transfertraining - User Emerson (r) = Recorded By, (t) = Taken By, (c) = Cosigned By Initials Name Provider Type Ekta Armstrong, PT Physical Therapist Clinical Impression Row Name 10/02/25 1600 Pain Pretreatment Pain Rating 7/10 -LO Posttreatment Pain Rating 0/10 - no pain -LO Pain Side/Orientation generalized;left -LO Pain Management Interventions premedicated for activity -LO Response to Pain Interventions activity participation with tolerable pain -LO Pre/Posttreatment Pain Comment 7/10 pain initially, RN admin pain meds and pain 0/10 by end of session - Row Name 10/02/25 1602 Plan of Care Review Plan of Care Reviewed With patient -LO Outcome Evaluation PT eval completed. Patient presenting with deficits in general BLE strength , standing dynamic balance, and functional endurance effecting functional mobility below baseline. Patient will benefit from skilled IP PT services to address impairments for return to [place]. Recommend [place] with [place] - Row Name 10/02/25 1605 Therapy Assessment/Plan (PT) Patient/Family Therapy Goals Statement (PT) home -LO Rehab Potential (PT) good -LO Criteria for Skilled Interventions Met (PT) yes;meets criteria;skilled treatment is necessary -LO Therapy Frequency (PT) daily -LO Predicted Duration of Therapy Intervention (PT) 2w -LO Row Name 10/02/25 1605 Vital Signs Pretreatment Heart Rate (beats/min) 124 -LO Intratreatment Heart Rate (beats/min) 141 -LO Posttreatment Heart Rate (beats/min) 114 -LO Pre SpO2 (%) 94 -LO O2 Delivery Pre Treatment supplemental O2 -LO Intra SpO2 (%) 90 -LO O2 Delivery Intra Treatment supplemental O2 -LO Post SpO2 (%) 90 -LO O2 Delivery Post Treatment supplemental O2 -LO Pre Patient Position Supine -LO Intra Patient Position Standing -LO Post Patient Position Sitting -LO Row Name 10/02/25 1605 Positioning and Restraints Pre-Treatment Position in bed -LO Post Treatment Position chair -LO In Chair notified nsg;reclined;call light within reach;encouraged to call for assist;exit alarm on;waffle cushion -LO User Emerson (r) = Recorded By, (t) = Taken By, (c) = Cosigned By Initials Name Provider Type LO Ekta Worthington, PT Physical Therapist Outcome Measures Row Name 10/02/25 1610 10/02/25 0800 How much help from another person do you currently need... Turning from your back to your side while in flat bed without using bedrails? 3 -LO 3 -VS Moving from lying on back to sitting on the side of a flat bed without bedrails? 3 -LO 3 -VS Moving to and from a bed to a chair (including a wheelchair)? 3 -LO 3 -VS Standing up from a chair using your arms (e.g., wheelchair, bedside chair)? 3 - LO 3 -VS Climbing 3-5 steps with a railing? 2 -LO 2 -VS To walk in hospital room? 3 -LO 3 -VS AM-PAC 6 Clicks Score (PT) 17 -LO 17 -VS Highest Level of Mobility Goal Stand (1 or More Minutes)-5 -LO Stand (1 or More Minutes)-5 -VS Row Name 10/02/25 1610 Functional Assessment Outcome Measure Options AM-PAC 6 Clicks Basic Mobility (PT) -LO User Emerson (r) = Recorded By, (t) = Taken By, (c) = Cosigned By Initials Name Provider Type Ekta Worthington, PT Physical Therapist VS Bertha Hunter RN Registered Nurse Physical Therapy Education Title: PT OT FRUIT CHECKER Therapies (Done) Topic: Physical Therapy (Done) Point: Mobility training (Done) Learning Progress Summary Patient Acceptance, E, VU,NR by at 10/02/2025 1401 Comment: PT POC Point: Home exercise program (Done) Learning Progress Summary Patient Acceptance, E, VU,NR by at 10/02/2025 1401 Comment: PT POC Point: Body mechanics (Done) Learning Progress Summary Patient Acceptance, E, VU,NR by at 10/02/2025 140 Comment: PT POC Point: Precautions (Done) Learning Progress Summary Patient Acceptance, E, VU,NR by at 10/02/2025 1401 Comment: PT POC User Emerson Initials Effective Dates Name Provider Type Discipline 05/16/21 - Ekta Worthington, PT Physical Therapist PT PT Recommendation and Plan Recommended discharge disposition is based on the functional assessment performed by PT/OT/Speech therapy (as applicable) and may not reflect the medical necessity determined by your provider or services covered by an individual patient's insurance plan or patient resource. Planned Therapy Interventions (PT): balance training, bed mobility training, gait training, home exercise program, stair training, patient/family education, neuromuscular re-education, strengthening,transfer training Therapy Frequency (PT): daily Outcome Evaluation: PT eval completed. Patient presenting with deficits in general BLE strength , standing dynamic balance, and functional endurance effecting functional mobility below baseline. Patient will benefit from skilled IP PT services to address impairments for return to PLOF. Recommend home with assist and [facility] [place] [facility] Time Calculation: PT Evaluation Complexity History, PT Evaluation Complexity: 1-2 personal factors and/or comorbidities Examination of Body Systems (PT Eval Complexity): 1-2 elements Clinical Presentation (PT Evaluation Complexity): evolving Clinical Decision Making (PT Evaluation Complexity): low complexity Overall Complexity (PT Evaluation Complexity): low complexity PT Charges Row Name 10/02/25 1401 Time Calculation Start Time 1401 -LO PT Received On 10/02/25 - PT Goal Re-Cert Due Date 10/12/25 - Timed Charges 89953 - Gait Training Minutes 8 -LO 45813 - PT Therapeutic Activity Minutes 10 -LO Untimed Charges PT Eval/Re-eval Minutes 48 -LO Total Minutes Timed Charges Total Minutes 18 -LO Untimed Charges Total Minutes 48 -LO Total Minutes 66 -LO User Emerson (r) = Recorded By, (t) = Taken By, (c) = Cosigned By Initials Name Provider Type LO Ekta Worthington, PT Physical Therapist Therapy Charges for Today Code Description Service Date Service Provider Modifiers Qty 46355626663 HC PT THERAPEUTIC ACT EA 15 MIN 10/02/2025 Ekta Worthington, PT GP 1 61807501361 HC PT EVAL LOW COMPLEXITY 4 10/02/2025 Ekta Worthington, PT GP 1 PT G-Codes Outcome Measure Options: AM-PAC 6 Clicks Basic Mobility (PT) AM-PAC 6 Clicks Score (PT): 17 PT Discharge Summary Anticipated Discharge Disposition (PT): home with assist, home with home health Ekta Worthington, PT 10/02/2025 * Therapy Evaluation - Moni Padron, OT - 10/02/2025 2:00 PM EST Images from the original note were not included. Patient Name: Linda Arteaga : 1960 Today's Date: 10/02/2025 Admit Date: 09/30/2025 Visit Dx: ICD-10-CM ICD-9-CM 1. Pneumonia of both lower lobes due to infectious organism J18.9 486 2. Acute on chronic hypoxic respiratory failure J96.21 518.84 799.02 3. Epigastric abdominal pain R10.13 789.06 4. 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 Gastroparesis Steatorrhea, pancreatic Hematochezia History of colonic polyps History of ERCP Morbidly obese Acute renal failure, unspecified acute renal failure type Special screening for malignant neoplasms, colon Dysphagia History of heart artery stent COPD exacerbation Respiratory failure Past Medical History: Diagnosis Date A-fib Anxiety ARF (acute renal failure) Arthritis CAD (coronary artery disease) stents x 5 per pt COPD (chronic obstructive pulmonary disease) home 02 at 2.5-3L at all time Diabetes mellitus Disease of thyroid gland Elevated cholesterol GERD (gastroesophageal reflux disease) Hypertension Internal hemorrhoids Pancreatitis Pacreatic divisum PONV (postoperative nausea and vomiting) Sleep apnea uses CPAP occasionally Stroke 2018 or 2019 per pt, no residual one-sided weakness Supplemental oxygen dependent 2-3L NC Past Surgical History: Procedure Laterality Date APPENDECTOMY CHOLECYSTECTOMY COLONOSCOPY CORONARY ANGIOPLASTY WITH STENT PLACEMENT x5 total; most recent 3 stents in 2019 - per pt. ENDOSCOPY HYSTERECTOMY PAIN PUMP INSERTION/REVISION right lower back PANCREAS SURGERY PORTACATH PLACEMENT TONSILLECTOMY VENOUS ACCESS DEVICE (PORT) REMOVAL N/A 04/29/2023 Procedure: PORT REMOVAL; Surgeon: Tha Sanchez MD; Location: REPLACED BY [facility]; Service: General; Laterality: N/A; General Information Row Name 10/02/25 1604 OT Time and Intention Document Type evaluation -TYE Mode of Treatment occupational therapy -TYE Row Name 10/02/25 1604 General Information Patient Profile Reviewed yes -TYE Prior Level of Function independent:;ADL's;bed mobility;transfer;all household mobility;community mobility;driving;shopping;max assist:;home management Ambulates without AD at baseline; spouse responsible for all HM tasks; on 2.5L baseline O2 -TYE Existing Precautions/Restrictions fall;oxygen therapy device and L/min -TYE Barriers to Rehab medically complex;previous functional deficit -TYE Row Name 10/02/25 1604 Living Environment Current Living Arrangements home -TYE People in Home significant other -TYE Row Name 10/02/25 1604 Home Main Entrance Number of Stairs, Main Entrance two -TYE Stair Railings, Main Entrance railings on both sides of stairs -TYE Row Name 10/02/25 1604 Stairs Within Home, Primary Number of Stairs, Within Home, Primary none -TYE Row Name 10/02/25 1604 Cognition Orientation Status (Cognition) oriented x 3 -TYE Row Name 10/02/25 1604 Safety Issues/Impairments Affecting Functional Mobility Safety Issues Affecting Function (Mobility) at risk behavior observed;awareness of need for assistance;insight into deficits/self-awareness;judgment;problem-solving;safety precaution awareness;safetyprecautions follow-through/compliance;sequencing abilities;other (see comments) Pt removed nasal cannula to ambulate to bathroom on room air (currently on 4.5L) - Impairments Affecting Function (Mobility) balance;endurance/activity tolerance;pain;shortness of breath;strength - User Emerson (r) = Recorded By, (t) = Taken By, (c) = Cosigned By Initials Name Provider Type Moni Glass OT Occupational Therapist Mobility/ADL's Row Name 10/02/25 1606 Bed Mobility Bed Mobility supine-sit -TYE Supine-Sit Fingal (Bed Mobility) supervision - Assistive Device (Bed Mobility) bed rails;head of bed elevated - Comment, (Bed Mobility) Pt completed without difficulty, HOB raised - Row Name 10/02/25 160 Transfers Transfers sit-stand transfer;toilet transfer - Row Name 10/02/25 160 Sit-Stand Transfer Sit-Stand Fingal (Transfers) contact guard;verbal cues - Comment, (Sit-Stand Transfer) no AD - Row Name 10/02/25 160 Toilet Transfer Type (Toilet Transfer) stand pivot/stand step;stand-sit;sit-stand - Fingal Level (Toilet Transfer) supervision - Assistive Device (Toilet Transfer) commode;grab bars/safety frame - Row Name 10/02/25 160 Functional Mobility Functional Mobility- Comment Defer to PT for details - Row Name 10/02/25 160 Activities of Daily Living BADL Assessment/Intervention lower body dressing;grooming;toileting - Row Name 10/02/25 160 Hygiene Care Oral Care patient refused intervention - Row Name 10/02/25 160 Lower Body Dressing Assessment/Training Fingal Level (Lower Body Dressing) don;socks;set up -TYE Position (Lower Body Dressing) edge of bed sitting - Row Name 10/02/25 160 Grooming Assessment/Training [place]al Level (Grooming) wash face, hands;set up -TYE Position (Grooming) supported sitting - Row Name 10/02/25 160 Toileting Assessment/Training [place] Level (Toileting) adjust/manage clothing;perform perineal hygiene;supervision - Assistive Devices (Toileting) commode;grab bar/safety frame -TYE Position (Toileting) unsupported sitting;supported standing -TYE User Emerson (r) = Recorded By, (t) = Taken By, (c) = Cosigned By Initials Name Provider Type Moni Glass OT Occupational Therapist Obj/Interventions [facility] Name 10/02/25 1608 Sensory Assessment (Somatosensory) Sensory Assessment (Somatosensory) UE sensation intact -[facility] Name 10/02/25 1608 Vision Assessment/Intervention Visual Impairment/Limitations WFL;corrective lenses for distance;corrective lenses for reading -[facility] Name 10/02/25 1608 Range of Motion Comprehensive General Range of Motion bilateral upper extremity ROM WFL -[facility] Name 10/02/25 1608 Strength Comprehensive (MMT) Comment, General Manual Muscle Testing (MMT) Assessment BUE strength grossly 4/5 -[facility] Name 10/02/25 1608 Balance Balance Assessment sitting static balance;sitting dynamic balance;standing static balance;standing dynamic balance -TYE Static Sitting Balance standby assist -TYE Dynamic Sitting Balance supervision -TYE Position, Sitting Balance unsupported;sitting edge of bed -TYE Static Standing Balance contact guard -TYE Dynamic Standing Balance minimal assist -TYE Position/Device Used, Standing Balance unsupported -TYE Balance Interventions standing;dynamic;occupation based/functional task -TYE Comment, Balance SUP for toileting tasks in standing -TYE User Emerson (r) = Recorded By, (t) = Taken By, (c) = Cosigned By Initials Name Provider Type Moni Glass OT Occupational Therapist Goals/Plan [facility] Name 10/02/25 1615 Transfer Goal 1 (OT) Activity/Assistive Device (Transfer Goal 1, OT) cuf-ud-kczfv/pxowy-oz-ymw;gho-ot-ygfws/aaygx-ln-fna;toilet -TYE Fingal Level/Cues Needed (Transfer Goal 1, OT) supervision required -TYE Time Frame (Transfer Goal 1, OT) long-term goal (LTG);10 days -TYE Progress/Outcome (Transfer Goal 1, OT) new goal -[facility] Name 10/02/25 1615 Toileting Goal 1 (OT) Activity/Device (Toileting Goal 1, OT) adjust/manage clothing;perform perineal hygiene;commode;grabbar/safety frame -TYE Fingal Level/Cues Needed (Toileting Goal 1, OT) standby assist -TYE Time Frame (Toileting Goal 1, OT) short term goal (STG);1 week -TYE Progress/Outcome (Toileting Goal 1, OT) new goal -TYE Row Name 10/02/251614 Grooming Goal 1 (OT) Activity/Device (Grooming Goal 1, OT) hair care;oral care;wash face, hands -TYE Fingal (Grooming Goal 1, OT) standby assist -TYE Time Frame (Grooming Goal 1, OT) short term goal (STG);1 week -TYE Strategies/Barriers (Grooming Goal 1, OT) standing sink side -TYE Progress/Outcome (Grooming Goal 1, OT) new goal -TYE Row Name 10/02/251614 Therapy Assessment/Plan (OT) Planned Therapy Interventions (OT) activity tolerance training;BADL retraining;functional balance retraining;occupation/activity based interventions;patient/caregiver education/training;ROM/therapeutic exercise;strengthening exercise;transfer/mobility retraining -TYE User Emerson (r) = Recorded By, (t) = Taken By, (c) = Cosigned By Initials Name Provider Type Moni Glass, OT Occupational Therapist Clinical Impression Row Name 10/02/251609 Pain Assessment Pretreatment Pain Rating 7/10 -TYE Posttreatment Pain Rating 0/10 - no pain -TYE Pain Management Interventions exercise or physical activity utilized;premedicated for activity -TEY Response to Pain Interventions activity participation with decreased pain -TYE Row Name 10/02/251609 Plan of Care Review Plan of Care Reviewed With patient -TYE Outcome Evaluation OT eval completed. Pt presents below baseline for ADL performance, with generalized weakness, SOA, and mild balance deficits. Pt donned socks with AREVALO at EOB, ambulated to bathroom without AD with CGA, completed toileting with SUP. IP OT services warranted. Recommend home with assi st and HHOT at discharge. -TYE Row Name 10/02/251609 Therapy Assessment/Plan (OT) Patient/Family Therapy Goal Statement (OT) To return to PLOF -TYE Rehab Potential (OT) good -TYE Criteria for Skilled Therapeutic Interventions Met (OT) yes;meets criteria;skilled treatment is necessary -TYE Therapy Frequency (OT) daily -TYE Predicted Duration of Therapy Intervention (OT) 10 days -TYE Row Name 10/02/251609 Therapy Plan Review/Discharge Plan (OT) Anticipated Discharge Disposition (OT) home with assist;home with home health -TYE Row Name 10/02/25 1610 Vital Signs Pre Systolic BP Rehab 103 -TYE Pre Treatment Diastolic BP 4 -TYE Pretreatment Heart Rate (beats/min) 124 -TYE Intratreatment Heart Rate (beats/min) 141 -TYE Posttreatment Heart Rate (beats/min) 114 -TYE Pre SpO2 (%) 95 -TYE O2 Delivery Pre Treatment nasal cannula -TYE Intra SpO2 (%) 90 -TYE O2 Delivery Intra Treatment nasal cannula -TYE Post SpO2 (%) 92 -TYE O2 Delivery Post Treatment nasal cannula -TYE Pre Patient Position Side Lying -TYE Intra Patient Position Standing -TYE Post Patient Position Sitting -TYE Row Name 10/02/25 1610 Positioning and Restraints Pre-Treatment Position in bed -TYE Post Treatment Position chair -TYE In Chair notified nsg;reclined;call light within reach;encouraged to call for assist;exit alarm on;waffle cushion;legs elevated -TYE User Emerson (r) = Recorded By, (t) = Taken By, (c) = Cosigned By Initials Name Provider Type Moni Glass, OT Occupational Therapist Outcome Measures Row Name 10/02/25 1616 How much help from another is currently needed... Putting on and taking off regular lower body clothing? 3 -TYE Bathing (including washing, rinsing, and drying) 3 -TYE Toileting (which includes using toilet bed hannah or urinal) 3 -TYE Putting on and taking off regular upper body clothing 3 -TYE Taking care of personal grooming (such as brushing teeth) 3 -TYE Eating meals 4 -TYE AM-PAC 6 Clicks Score (OT) 19 -TYE Row Name 10/02/25 1610 10/02/25 0800 How much help from another person do you currently need... Turning from your back to your side while in flat bed without using bedrails? 3 -LO 3 -VS Moving from lying on back to sitting on the side of a flat bed without bedrails? 3 -LO 3 -VS Moving to and from a bed to a chair (including a wheelchair)? 3 -LO 3 -VS Standing up from a chair using your arms (e.g., wheelchair, bedside chair)? 3 - LO 3 -VS Climbing 3-5 steps with a railing? 2 -LO 2 -VS To walk in hospital room? 3 -LO 3 -VS AM-PAC 6 Clicks Score (PT) 17 -LO 17 -VS Highest Level of Mobility Goal Stand (1 or More Minutes)-5 -LO Stand (1 or More Minutes)-5 -VS Row Name 10/02/25 1616 10/02/25 1610 Functional Assessment Outcome Measure Options AM-PAC 6 Clicks Daily Activity (OT) -TYE AM-PAC 6 Clicks Basic Mobility (PT)-LO User Emerson (r) = Recorded By, (t) = Taken By, (c) = Cosigned By Initials Name Provider Type Moni Glass, OT Occupational Therapist Ekta Armstrong, PT Physical Therapist Bertha Ac RN Registered Nurse Occupational Therapy Education Title: PT OT FRUIT CHECKER Therapies (In Progress) Topic: Occupational Therapy (In Progress) Point: ADL training (Done) Learning Progress Summary Patient Acceptance, E, VU by at 10/02/2025 161 Comment: OT POC; necessity of remaining on continuous supplemental O2 during activity; discharge planning Point: Precautions (Done) Learning Progress Summary Patient Acceptance, E, VU by at 10/02/20251615 Comment: OT POC; necessity of remaining on continuous supplemental O2 during activity; discharge planning User Emerson Initials Effective Dates Name Provider Type Discipline 05/16/21 - Moni Padron OT Occupational Therapist OT OT Recommendation and Plan Recommended discharge disposition is based on the functional assessment performed by PT/OT/Speech therapy (as applicable) and may not reflect the medical necessity determined by your provider or services covered by an individual patient's insurance plan or patient resource. Planned Therapy Interventions (OT): activity tolerance training, BADL retraining, functional balance retraining, occupation/activity based interventions, patient/caregiver education/training, ROM/therapeutic exercise, strengthening exercise, transfer/mobility retraining Therapy Frequency (OT): daily Plan of Care Review Plan of Care Reviewed With: patient Outcome Evaluation: OT eval completed. Pt presents below baseline for ADL performance, with generalized weakness, SOA, and mild balance deficits. Pt donned socks with AREVALO at EOB, ambulated to bathroomwithout AD with CGA, completed toileting with SUP. IP OT services warranted. Recommend home with assist and HHOT at discharge. Time Calculation: Evaluation Complexity (OT) Review Occupational Profile/Medical/Therapy History Complexity: brief/low complexity Assessment, Occupational Performance/Identification of Deficit Complexity: 1-3 performance deficits Clinical Decision Making Complexity (OT): problem focused assessment/low complexity Overall Complexity of Evaluation (OT): low complexity Time Calculation- OT Row Name 10/02/25 1401 10/02/25 1400 Time Calculation- OT OT Start Time -- 1400 -TYE OT Received On -- 10/02/25 -TYE OT Goal Re-Cert Due Date -- 10/12/25 -TYE Timed Charges 56701 - Gait Training Minutes 8 -LO -- Untimed Charges OT Eval/Re-eval Minutes -- 58 -TYE Total Minutes Timed Charges Total Minutes 8 -LO -- Untimed Charges Total Minutes -- 58 -TYE Total Minutes 8 -LO 58 -TYE User Emerson (r) = Recorded By, (t) = Taken By, (c) = Cosigned By Initials Name Provider Type Moni Glass OT Occupational Therapist Ekta Armstrong PT Physical Therapist Therapy Charges for Today Code Description Service Date Service Provider Modifiers Qty [id number] HC OT EVAL LOW COMPLEXITY 4 10/02/2025 Moni Padron OT GO 1 Moni Padron OT 10/02/2025 * Therapy Evaluation - Rissa Hidalgo MS CCC-FRUIT CHECKER - 10/02/2025 11:00 AM EST Images from the original note were not included. Acute Care - Speech Language Pathology Swallow Initial Evaluation [facility] Clinical Swallow Evaluation Patient Name: Linda Arteaga : 1960 Today's Date: 10/02/2025 Admit Date: 09/30/2025 Visit Dx: ICD-10-CM ICD-9-CM 1. Pneumonia of both lower lobes due to infectious organism J18.9 486 2. Acute on chronic hypoxic respiratory failure J96.21 518.84 799.02 3. Epigastric abdominal pain R10.13 789.06 4. 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 Gastroparesis Steatorrhea, pancreatic Hematochezia History of colonic polyps History of ERCP Morbidly obese Acute renal failure, unspecified acute renal failure type Special screening for malignant neoplasms, colon Dysphagia History of heart artery stent COPD exacerbation Respiratory failure Past Medical History: Diagnosis Date A-fib Anxiety ARF (acute renal failure) Arthritis CAD (coronary artery disease) stents x 5 per pt COPD (chronic obstructive pulmonary disease) home 02 at 2.5-3L at all time Diabetes mellitus Disease of thyroid gland Elevated cholesterol GERD (gastroesophageal reflux disease) Hypertension Internal hemorrhoids Pancreatitis Pacreatic divisum PONV (postoperative nausea and vomiting) Sleep apnea uses CPAP occasionally Stroke 2018 or 2019 per pt, no residual one-sided weakness Supplemental oxygen dependent 2-3L NC Past Surgical History: Procedure Laterality Date APPENDECTOMY CHOLECYSTECTOMY COLONOSCOPY CORONARY ANGIOPLASTY WITH STENT PLACEMENT x5 total; most recent 3 stents in 2019 - per pt. ENDOSCOPY HYSTERECTOMY PAIN PUMP INSERTION/REVISION right lower back PANCREAS SURGERY PORTACATH PLACEMENT TONSILLECTOMY VENOUS ACCESS DEVICE (PORT) REMOVAL N/A 04/29/2023 Procedure: PORT REMOVAL; Surgeon: Tha Sanchez MD; Location: REPLACED BY [facility]; Service: General; Laterality: N/A; FRUIT CHECKER Recommendation and Plan Recommended discharge disposition is based on the functional assessment performed by PT/OT/Speech therapy (as applicable) and may not reflect the medical necessity determined by your provider or services covered by an individual patient's insurance plan or patient resource. FRUIT CHECKER Swallowing Diagnosis: mild, oral dysphagia, R/O pharyngeal dysphagia, suspected esophageal dysphagia (10/02/25939) FRUIT CHECKER Diet Recommendation: mechanical ground textures, thin liquids (10/02/25939) Recommended Precautions and Strategies: upright posture during/after eating, small bites of food and sips of liquid, general aspiration precautions, reflux precautions (10/02/25939) FRUIT CHECKER Rec. for Method of Medication Administration: meds whole, with thin liquids, with puree, as tolerated (10/02/25939) Monitor for Signs of Aspiration: yes, notify FRUIT CHECKER if any concerns (10/02/25939) Recommended Diagnostics: VFSS (MBS), with esophageal screen (10/02/25939) Swallow Criteria for Skilled Therapeutic Interventions Met: demonstrates skilled criteria () Anticipated Discharge Disposition (FRUIT CHECKER): home (10/02/25939) Rehab Potential/Prognosis, Swallowing: good, to achieve stated therapy goals (10/02/25939) Oral Care Recommendations: Oral Care BID/PRN, Toothbrush (10/02/25939) Demonstrates Need for Referral to Another Service: gastroenterology, dedicated esophageal assessment (10/02/25939) SWALLOW EVALUATION (Last 72 Hours) FRUIT CHECKER Adult Swallow Evaluation Row Name 10/02/25939 Rehab Evaluation Document Type evaluation - Subjective Information no complaints -CH Patient Observations alert;cooperative;agree to therapy - Patient/Family/Caregiver Comments/Observations none present -CH Patient Effort good -CH Symptoms Noted During/After Treatment none -CH Oral Care oral rinse provided - General Information Patient Profile Reviewed yes -CH Pertinent History Of Current Problem Hx CVA, CAD, polysubstance abuse, esophageal stricture with past dilations (last one several years ago) CXR: increasing diffuse opacities, concerns for pulmonary edema v. infectious process. -CH Current Method of Nutrition regular textures;thin liquids - Precautions/Limitations, Vision WFL;for purposes of eval -CH Precautions/Limitations, Hearing WFL;for purposes of eval -CH Prior Level of Function-Communication WFL - Prior Level of Function-Swallowing soft to chew - Plans/Goals Discussed with patient;agreed upon - Barriers to Rehab none identified - Patient's Goals for Discharge return home;return to all previous roles/activities - Pain Pretreatment Pain Rating 0/10 - no pain -CH Posttreatment Pain Rating 0/10 - no pain -CH Oral Motor Structure and Function Dentition Assessment missing teeth;other (see comments);upper dentures/partial in place no lower teeth, no denture plate. -CH Secretion Management WNL/WFL -CH Mucosal Quality moist, healthy -CH Volitional Swallow WFL -CH Oral Musculature and Cranial Nerve Assessment Oral Motor General Assessment WFL -CH General Eating/Swallowing Observations Respiratory Support Currently in Use nasal cannula - O2 Liters 3L -CH Eating/Swallowing Skills self-fed;appropriate self-feeding skills observed -CH Positioning During Eating upright 90 degree;upright in bed - Utensils Used spoon;cup;straw - Consistencies Trialed ice chips;thin liquids;pureed;regular textures - Pre SpO2 (%) 95 -CH Post SpO2 (%) 94 -CH Clinical Swallow Eval Oral Prep Phase impaired -CH Oral Transit WFL -CH Oral Residue WFL -CH Pharyngeal Phase no overt signs/symptoms of pharyngeal impairment -CH Esophageal Phase suspected esophageal impairment -CH Oral Prep Concerns Oral Prep Concerns inefficient mastication;other (see comments) d/t missing dentition, recently hadlowers pulled, has no lower plate yet -CH Inefficient Mastication regular consistencies -CH Esophageal Phase Concerns Esophageal Phase Concerns sensation of material sticking -CH Sensation of Material Sticking all consistencies;other (see comments) hx dilation -CH Swallowing Quality of Life Assessment Education and counseling provided Signs of aspiration;Risks of aspiration;Safest diet options;Oral care recommendations and rationale;Aspiration precautions - FRUIT CHECKER Evaluation Clinical Impression FRUIT CHECKER Swallowing Diagnosis mild;oral dysphagia;R/O pharyngeal dysphagia;suspected esophageal dysphagia - Functional Impact risk of aspiration/pneumonia - Rehab Potential/Prognosis, Swallowing good, to achieve stated therapy goals - Swallow Criteria for Skilled Therapeutic Interventions Met demonstrates skilled criteria - Recommendations FRUIT CHECKER Diet Recommendation mechanical ground textures;thin liquids - Recommended Diagnostics VFSS (MBS);with esophageal screen - Recommended Precautions and Strategies upright posture during/after eating;small bites of food and sips of liquid;general aspiration precautions;reflux precautions - Oral Care Recommendations Oral Care BID/PRN;Toothbrush - FRUIT CHECKER Rec. for Method of Medication Administration meds whole;with thin liquids;with puree;as tolerated - Monitor for Signs of Aspiration yes;notify FRUIT CHECKER if any concerns - Anticipated Discharge Disposition (FRUIT CHECKER) home - Demonstrates Need for Referral to Another Service gastroenterology;dedicated esophageal assessment - User Emerson (r) = Recorded By, (t) = Taken By, (c) = Cosigned By Initials Name Effective Dates Rissa Hidalgo, [facility]-FRUIT CHECKER 12/20/24 - EDUCATION The patient has been educated in the following areas: Dysphagia (Swallowing Impairment) Oral Care/Hydration Modified Diet Instruction. Time Calculation: Time Calculation- FRUIT CHECKER Row Name 10/02/25 1059 Time Calculation- [facility] FRUIT CHECKER Start Time 0940 -CH FRUIT CHECKER Received On 10/02/25 - Untimed Charges FRUIT CHECKER Eval/Re-eval ST Eval Oral Pharyng Swallow - 00413 - [id number] Eval Oral Pharyng Swallow Minutes 55 -CH Total Minutes Untimed Charges Total Minutes 55 -CH Total Minutes 55 -CH User Emerson (r) = Recorded By, (t) = Taken By, (c) = Cosigned By Initials Name Provider Type Rissa Forte MS CCC-FRUIT CHECKER Speech and Language Pathologist Therapy Charges for Today Code Description Service Date Service Provider Modifiers Qty [id number] HC ST EVAL ORAL PHARYNG SWALLOW 4 10/02/2025 Rissa Hidalgo MS CCC-FRUIT CHECKER GN 1 MS RUBINA Diaz 10/02/2025 * Case Management/Social Work - Maura Calvillo RN - 10/02/2025 10:38 AM EST Discharge Planning Assessment [facility] Patient Name: Linda Arteaga Today's Date: 10/02/2025 Admit Date: 09/30/2025 Plan: Home Discharge Needs Assessment Row Name 10/02/25 1032 Living Environment People in Home significant other Name(s) of People in Home RICHELLE CARO Significant Other [phone] Current Living Arrangements home Potentially Unsafe Housing Conditions none In the past 12 months has the electric, gas, oil, or water [employer] threatened to shut off services in your home? No Primary Care Provided by self Able to Return to Prior Arrangements yes Living Arrangement Comments Patient states she is trying to find new housing and needs to find a new place soon - will send to Resource/Environmental Concerns Resource/Environmental Concerns none Transportation Concerns none Transportation Needs In the past 12 months, has lack of transportation kept you from medical appointments or from getting medications? no In the past 12 months, has lack of transportation kept you from meetings, work, or from getting things needed for daily living? No Food Insecurity Within the past 12 months, you worried that your food would run out before you got the money to buymore. Never true Within the past 12 months, the food you bought just didn't last and you didn't have money to get more. Never true Transition Planning Patient/Family Anticipates Transition to home Transportation Anticipated family or friend will provide Discharge Needs Assessment Equipment Currently Used at Home walker, rolling;wheelchair;respiratory supplies;oxygen Do you want help finding or keeping work or a job? I do not need or want help Do you want help with school or training? For example, starting or completing job training or getting a high school diploma, GED or equivalent No Discharge Plan Row Name 10/02/25 1033 Plan Plan Home Patient/Family in Agreement with Plan yes Plan Comments CM spoke with patient at bedside. Patient lives in [facility] with her significant other, Richelle. Patient states that she is independent with all activites of daily living. DME: walker, wheelchair, and home oxygen (through [employer]). Patient on 2.5L NC continuous at home, currently on 4LNC. PCP: Dr. Michael Colón. Patient denies any home health use/needs. Pharmacy: [facility] in [place]. Patient states she has transportation home when she is medically ready. CM verified primary insurance as [employer] Medicare Replacement and secondary [place] Medicaid. Patient has no steps to enter her home. When asked about environmental, resource, financial, or transport concerns patient states that she is currently looking for new housing and has not been successful. CM will send to to see if they can provide with resources. CM following Final Discharge Disposition Code 01 - home or self-care Continued Care and Services - Admitted Since 09/30/2025 No active coordination exists. Demographic Summary Row Name 10/02/25 1031 General Information Admission Type inpatient Arrived From home Preferred Language [place] Island[place] Functional Status Row Name 10/02/25 1031 Functional Status Usual Activity Tolerance moderate Current Activity Tolerance moderate Physical Activity On average, how many days per week do you engage in moderate to strenuous exercise (like a brisk walk)? Pt Declined On average, how many minutes do you engage in exercise at this level? Pt Declined Functional Status, IADL Medications independent Meal Preparation independent Housekeeping independent Laundry independent Shopping independent If for any reason you need help with day-to-day activities such as bathing, preparing meals, shopping, managing finances, etc., do you get the help you need? I get all the help I need Mental Status General Appearance WDL WDL Psychosocial No documentation. Abuse/Neglect No documentation. Legal No documentation. Substance Abuse No documentation. Patient Forms No documentation. Maura Calvillo RN documented in this encounter Plan of Treatment Scheduled Orders Name Type Priority Associated Diagnoses Orde r Schedule Respiratory Culture - Sputum, Cough Microbiology Urgent Once for 1 Occurrences starting 10/01/2025 until 10/01/2025 Scheduled Referrals Name Type Priority Associated Diagnoses Order Schedule Ambulatory Referral to Home Health Outpatient Referral Routine Acute on chronic hypoxic respiratory failure Acute on chronic respiratory failure with hypoxemia Chronic obstructive pulmonary disease with acute exacerbation Esophageal dysphagia Essential hypertension Morbidly obese Paroxysmal atrial fibrillation Atrial fibrillation with rapid ventricular response Ordered: 10/03/2025 Ambulatory Referral to Gastroenterology Outpatient Referral Routine Esophageal dysphagia 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 Ordered: 10/05/2025 documented as of this encounter Procedures Procedure Name Priority Date/Time Associated Diagnosis Comments POTASSIUM STAT 10/05/2025 5:17 PM EST POCT GLUCOSE FINGERSTICK Routine 10/05/2025 3:51 PM EST MAGNESIUM Routine 10/05/2025 3:37 PM EST BASIC METABOLIC PANEL Routine 10/05/2025 3:37 PM EST POCT GLUCOSE FINGERSTICK Routine 10/05/2025 10:55 AM EST SCANNED - TELEMETRY 10/05/2025 9 :42 AM EST POCT GLUCOSE FINGERSTICK Routine 10/05/2025 7:06 AM EST POCT GLUCOSE FINGERSTICK Routine 10/04/2025 8:29 PM EST POCT GLUCOSE FINGERSTICK Routine 10/04/2025 3:59 PM EST POCT GLUCOSE FINGERSTICK Routine 10/04/2025 11:11 AM EST POCT GLUCOSE FINGERSTICK Routine 10/04/2025 7:07 AM EST SCANNED - TELEMETRY 10/04/2025 2 :38 AM EST POCT GLUCOSE FINGERSTICK Routine 10/03/2025 8:24 PM EST POCT GLUCOSE FINGERSTICK Routine 10/03/2025 3:49 PM EST POCT GLUCOSE FINGERSTICK Routine 10/03/2025 11:16 AM EST FL LIMITED UGI FOR MBS REFLUX SINGLE-CONTRAST Routine 10/03/2025 10:44 AM EST FL VIDEO SWALLOW W SPEECH SINGLE-CONTRAST Routine 10/03/2025 10:44 AM EST HEMOGLOBIN AND HEMATOCRIT, BLOOD Routine 10/03/2025 7:25 AM EST MAGNESIUM Routine 10/03/2025 7:25 AM EST BASIC METABOLIC PANEL Routine 10/03/2025 7:25 AM EST POCT GLUCOSE FINGERSTICK Routine 10/03/2025 7:05 AM EST POCT GLUCOSE FINGERSTICK Routine 10/02/2025 8:18 PM EST POCT GLUCOSE FINGERSTICK Routine 10/02/2025 4:26 PM EST ECG 12-LEAD Routine 10/02/2025 12:36 PM EST POCT GLUCOSE FINGERSTICK Routine 10/02/2025 11:17 AM EST POCT GLUCOSE FINGERSTICK Routine 10/02/2025 7:21 AM EST HEPARIN ANTI XA Timed 10/02/2025 4:16 AM EST CBC WITH AUTO DIFFERENTIAL Urgent 10/02/2025 4:16 AM EST HEMOGLOBIN AND HEMATOCRIT, BLOOD Timed 10/02/2025 4:16 AM EST CBC AND DIFFERENTIAL Urgent 10/02/2025 4:16 AM EST C-REACTIVE PROTEIN Routine 10/02/2025 4: 16 AM EST PHOSPHORUS Routine 10/02/2025 4:16 AM EST MAGNESIUM Routine 10/02/2025 4:16 AM EST BASIC METABOLIC PANEL Routine 10/02/2025 4:16 AM EST POCT GLUCOSE FINGERSTICK Routine 10/01/2025 10:36 PM EDT HEPARIN ANTI XA STAT 10/01/2025 7:37 PM EDT APTT STAT 10/01/2025 7:37 PM EDT PROTIME-INR STAT 10/01/2025 7:37 PM EDT POCT GLUCOSE FINGERSTICK Routine 10/01/2025 5:44 PM EDT CBC WITH AUTO DIFFERENTIAL STAT 10/01/2025 4:19 PM EDT HEMOGLOBIN AND HEMATOCRIT, BLOOD Timed 10/01/2025 4:19 PM EDT CBC AND DIFFERENTIAL STAT 10/01/2025 4:19 PM EDT POTASSIUM Timed 10/01/2025 4:19 PM EDT ECG 12-LEAD Routine 10/01/2025 12:00 PM EDT POCT GLUCOSE FINGERSTICK Routine 10/01/2025 11:41 AM EDT MRSA DNA PROBE Urgent 10/01/2025 10:36 AM EDT BLOOD GAS, ARTERIAL W/CO-OXIMETRY Routine 10/01/2025 9:07 AM EDT URINALYSIS, MICROSCOPIC ONLY STAT 10/01/2025 6:39 AM EDT URINALYSIS W/ MICROSCOPIC IF INDICATED (NO CULTURE) STAT 10/01/2025 6:39 AM EDT STREP PNEUMO AG, URINE OR CSF Add-On 10/01/2025 6:39 AM EDT URINE DRUG SCREEN Add-On 10/01/2025 6:3 9 AM EDT LEGIONELLA ANTIGEN, URINE Add-On 10/01/2025 6:39 AM EDT FENTANYL, URINE Routine 10/01/2025 6:39 AM EDT XR CHEST 1 VW STAT 10/01/2025 6:18 AM EDT PROBNP Add-On 10/01/2025 6:14 AM EDT SCAN SLIDE Urgent 10/01/2025 6:14 AM EDT CBC WITH AUTO DIFFERENTIAL Urgent 10/01/2025 6:14 AM EDT C-REACTIVE PROTEIN Add-On 10/01/2025 6: 14 AM EDT PHOSPHORUS Add-On 10/01/2025 6:14 AM EDT MAGNESIUM Urgent 10/01/2025 6:14 AM EDT BASIC METABOLIC PANEL Urgent 10/01/2025 6:14 AM EDT LACTIC ACID, PLASMA STAT 10/01/2025 6 :13 AM EDT POCT GLUCOSE FINGERSTICK Routine 10/01/2025 5:58 AM EDT BLOOD GAS, ARTERIAL W/CO-OXIMETRY Routine 10/01/2025 4:49 AM EDT RESPIRATORY PANEL PCR W/ COVID-19 (SARS-COV-2), ROCK LOADER SWAB IN UTM/VTP, 2 HR TAT STAT 10/01/2025 12:07 AM EDT HIGH SENSITIVITIY TROPONIN T 1HR STAT 09/30/2025 11:[address] ANGIOGRAM CHEST PULMONARY EMBOLISM STAT 09/30/2025 11:[address] ABDOMEN PELVIS W CONTRAST STAT 09/30/2025 11:48 PM EDT XR CHEST 1 VW STAT 09/30/2025 10:22 PM EDT SCANNED - TELEMETRY 09/30/2025 1 0:21 PM EDT ECG 12-LEAD STAT 09/30/2025 10:15 PM EDT BLOOD GAS, VENOUS W/CO-OXIMETRY STAT 09/30/2025 10:11 PM EDT CBC WITH AUTO DIFFERENTIAL STAT 09/30/2025 10:03 PM EDT TROPONIN STAT 09/30/2025 10:03 PM EDT CBC AND DIFFERENTIAL STAT 09/30/2025 10:03 PM EDT B-TYPE NATRIURETIC PEPTIDE STAT 09/30/2025 10:03 PM EDT MAGNESIUM STAT 09/30/2025 10:03 PM EDT LIPASE STAT 09/30/2025 10:03 PM EDT COMPREHENSIVE METABOLIC PANEL STAT 09/30/2025 10:03 PM EDT documented in this encounter Results * (ABNORMAL) Potassium (10/05/2025 5:17 PM EST) [facility] Potassium 5.8(H) 3.5 - 5.2 mmol/L 10/05/2025 5:50 PM EST [facility] Comment:Specimen hemolyzed. Result may be falsely elevated. Blood Venipuncture / Unknown 10/05/2025 5:17 PM EST 10/05/2025 5:25 PM EST Baylee Sesay PA-C LAB BLOOD ORDERABLES Fi nal Result Performing Organization Address City/[facility]/ZIP Co de Phone Number [facility]
[address] [place] [address], * (ABNORMAL) POC Glucose Once (10/05/2025 3:51 PM EST) Glucose 139(H) 70 - 130 mg/dL 10/05/2025 3:54 PM EST [facility] Comment:Serial Number: [id number]: [id number] Blood 10/05/2025 3:51 PM EST 10/05/2025 3:54 PM EST Trudy Bolanos DO POINT OF CARE TEST ORD ERABLES Final Result Performing Organization Address [facility] Co de Phone Number [facility]
[address] [place] [address], * Magnesium (10/05/2025 3:37 PM EST) Magnesium 1.6 1.6 - 2.4 mg/dL 10/05/2025 4:34 PM EST [facility] Blood Venipuncture / Unknown 10/05/2025 3:37 PM EST 10/05/2025 4:06 PM EST Roc Malcolm MD LAB BLOOD ORDERABLES Final Resul t Performing Organization Address [facility]/ZIP Co de Phone Number [facility]
[address] [place] [address], * (ABNORMAL) Basic Metabolic Panel (10/05/2025 3:37 PM EST) [facility] Glucose 124(H) 65 - 99 mg/dL 10/05/2025 4:34 PM [facility] BUN 30.5(H) 8.0 - 23.0 mg/dL 10/05/2025 4:34 PM [facility] Creatinine 1.07(H) 0.57 - 1.00 mg/dL 10/05/2025 4:34 PM [facility] Sodium 139 136 - 145 mmol/L 10/05/2025 4:34 PM [facility] Potassium 5.5(H) 3.5 - 5.2 mmol/L 10/05/2025 4:34 PM [facility] Comment:Specimen hemolyzed. Result may be falsely elevated. Chloride 99 98 - 107 mmol/L 10/05/2025 4:34 PM [facility] CO2 33.3(H) 22.0 - 29.0 mmol/L 10/05/2025 4:34 PM [facility] Calcium 8.8 8.6 - 10.5 mg/dL 10/05/2025 4:34 PM [facility] BUN/Creatinine Ratio 28.5(H) 7.0 - 25.0 10/05/2025 4:34 PM [facility] Anion Gap 6.7 5.0 - 15.0 mmol/L 10/05/2025 4:34 PM [facility] eGFR 57.8(L) >60.0 mL/min/1.7 3 10/05/2025 4:34 PM [facility] Blood Venipuncture / Unknown 10/05/2025 3:37 PM EST 10/05/2025 4:06 PM EST [facility] - 10/05/2025 4:34 PM EST GFR Categories in Chronic Kidney Disease (CKD) GFR Category GFR (mL/min/1.73) Interpretation G1 90 or greater Normal or high (1) G2 60-89 Mild decrease (1) G3a 45-59 Mild to moderate decrease G3b 30-44 Moderate to severe decrease G4 15-29 Severe decrease G5 14 or less Kidney failure (1)In the absence of evidence of kidney disease, neither GFR category G1 or G2 fulfill the criteria for CKD. eGFR calculation 2020 CKD-EPI creatinine equation, which does not include race as a factor Roc Malcolm MD LAB BLOOD ORDERABLES Final Resul t Performing Organization Address City/[facility] Co de Phone Number [facility]
[address] [place] [address], * POC Glucose Once (10/05/2025 10:55 AM EST) Glucose 116 70 - 130 mg/dL 10/05/2025 10:58 AM EST [facility] Comment:Serial Number: [id number]: [id number] Blood 10/05/2025 10:5 5 AM EST 10/05/2025 10:58 AM EST Trudy Bolanos DO POINT OF CARE TEST ORD ERABLES Final Result Performing Organization Address [facility] de Phone Number [facility]
[address] [place] [address], * Telemetry Scan (10/05/2025 9:42 AM EST) [facility] ECG ORDERABLES Final Result * POC Glucose Once (10/05/2025 7:06 AM EST) Glucose 84 70 - 130 mg/dL 10/05/2025 7:18 AM EST [facility] Comment:Serial Number: [id number]: [id number] Blood 10/05/2025 7:06 AM EST 10/05/2025 7:18 AM EST Trudy Bolanos DO POINT OF CARE TEST ORD ERABLES Final Result Performing Organization Address [facility] de Phone Number [facility]
[address] [place] [address], * (ABNORMAL) POC Glucose Once (10/04/2025 8:29 PM EST) Glucose 144(H) 70 - 130 mg/dL 10/04/2025 8:30 PM EST [facility] Comment:Serial Number: [id number]: [id number] Blood 10/04/2025 8:29 PM EST 10/04/2025 8:30 PM EST us Roc Malcolm MD POINT OF CARE TEST ORDERABLES Fi nal Result Performing Organization Address [facility] de Phone Number [facility]
[address] [place] [address], * (ABNORMAL) POC Glucose Once (10/04/2025 3:59 PM EST) Glucose 168(H) 70 - 130 mg/dL 10/04/2025 4:04 PM EST [facility] Comment:Serial Number: [id number]: [id number] Blood 10/04/2025 3:59 PM EST 10/04/2025 4:04 PM EST us Roc Malcolm MD POINT OF CARE TEST ORDERABLES Fi nal Result Performing Organization Address [facility] Co de Phone Number [facility]
[address] [place] [address], * POC Glucose Once (10/04/2025 11:11 AM EST) Glucose 100 70 - 130 mg/dL 10/04/2025 11:14 AM EST [facility] Comment:Serial Number: [id number]: [id number] Blood 10/04/2025 11:1 1 AM EST 10/04/2025 11:14 AM EST Roc Malcolm MD POINT OF CARE TEST ORDERABLES Fi nal Result Performing Organization Address City/[facility]/ZIP Co de Phone Number [facility]
[address] [place] [address], * (ABNORMAL) POC Glucose Once (10/04/2025 7:07 AM EST) Glucose 156(H) 70 - 130 mg/dL 10/04/2025 7:20 AM EST [facility] Comment:Serial Number: [id number]: [id number] Blood 10/04/2025 7:07 AM EST 10/04/2025 7:20 AM EST Roc Malcolm MD POINT OF CARE TEST ORDERABLES Fi nal Result Performing Organization Address [facility] Co de Phone Number [facility]
[address] [place] [address], * Telemetry Scan (10/04/2025 2:38 AM EST) [facility] Onbase ECG ORDERABLES Final Result * POC Glucose Once (10/03/2025 8:24 PM EST) Glucose 129 70 - 130 mg/dL 10/03/2025 8:26 PM EST [facility] Comment:Serial Number: [id number]: [id number] Blood 10/03/2025 8:24 PM EST 10/03/2025 8:26 PM EST Sabrina Stephens MD POINT OF CARE TEST ORDERABLES F inal Result Performing Organization Address City/[facility]/ZIP Co de Phone Number [facility]
[address] [place] [address], * POC Glucose Once (10/03/2025 3:49 PM EST) Glucose 115 70 - 130 mg/dL 10/03/2025 3:58 PM EST [facility] Comment:Serial Number: [id number]: [id number] Blood 10/03/2025 3:49 PM EST 10/03/2025 3:58 PM EST us Sabrina Stephens MD POINT OF CARE TEST ORDERABLES F inal Result Performing Organization Address City/[facility]/ZIP Co de Phone Number [facility]
[address] [place] [address], * POC Glucose Once (10/03/2025 11:16 AM EST) Glucose 118 70 - 130 mg/dL 10/03/2025 11:20 AM EST [facility] Comment:Serial Number: [id number]: [id number] Blood 10/03/2025 11:1 6 AM EST 10/03/2025 11:20 AM EST us Sabrina Stephens MD POINT OF CARE TEST ORDERABLES F inal Result Performing Organization Address City/[facility] Co de Phone Number [facility]
[address] [place] [address], * FL Limited Ugi For Mbs Reflux Single-Contrast (10/03/2025 10:44 AM EST) Anatomical Region Laterality Modality Body N/A Radio Fluoroscop y 10/03/2025 11:1 1 AM EST Impressions 10/03/2025 3:55 PM EST Impression: Fluoroscopy provided for a modified barium swallow, and limited upper GI series. No aspiration was seen during swallowing evaluation. Limited upper GI series demonstrated mild gastroesophageal reflux, and a prominent cricopharyngeus muscle. Please see speech therapy report for full details and recommendations. Report dictated by: Maru Lim PA-c I have personally reviewed this case and agree with the findings above: Electronically Signed: Primo Randall MD 10/03/2025 3:55 PM EST Workstation ID: [id number] Sheila 10/03/2025 3:55 PM EST FL VIDEO SWALLOW W SPEECH SINGLE-CONTRAST, FL LIMITED UGI FOR MBS REFLUX SINGLE-CONTRAST Date of Exam: 10/03/2025 10:12 AM EST Indication: dysphagia. Comparison: None available. Technique: The speech pathologist administered food and/or liquid mixed with barium to the patient with cine/video imaging. Imaging assistance was provided to the speech pathologist and an image was saved. Fluoroscopic Time: 30 seconds Number of Images: 9 associated fluoroscopic loops were saved Findings: No aspiration was seen during fluoroscopic guided modified barium swallowing series. A limited view of the esophagus with the patient in the seated lateral position demonstrated a prominent cricopharyngeus muscle, and mild gastroesophageal reflux to the level of the midesophagus. There was no evidence of a focal esophageal stricture. Please see speech therapy report for full details and recommendations. Procedure Note Primo Randall MD - 10/03/2025 FL VIDEO SWALLOW W SPEECH SINGLE-CONTRAST, FL LIMITED UGI FOR MBS REFLUXSINGLE-CONTRAST Date of Exam: 10/03/2025 10:12 AM EST Indication: dysphagia. Comparison: None available. Technique: The speech pathologist administered food and/or liquid mixedwith barium to the patient with cine/video imaging. Imaging assistancewas provided to the speech pathologist and an image was saved. Fluoroscopic Time: 30 seconds Number of Images: 9 associated fluoroscopic loops were saved Findings: No aspiration was seen during fluoroscopic guided modified bariumswallowing series. A limited view of the esophagus with the patient in theseated lateral position demonstrated a prominent cricopharyngeus muscle,and mild gastroesophageal reflux to the level of the midesophagus. There was no evidence of a focal esophagealstricture. Please see speech therapy report for full details andrecommendations. IMPRESSION: Impression: Fluoroscopy provided for a modified barium swallow, and limited upper GIseries. No aspiration was seen during swallowing evaluation. Limited upperGI series demonstrated mild gastroesophageal reflux, and a prominentcricopharyngeus muscle. Please see speech therapy report for full details and recommendations. Report dictated by: Maru Lim PA-c I have personally reviewed this case and agree with the findings above: Electronically Signed: Primo Randall MD 10/03/2025 3:55 PM EST Workstation ID: [id number] Roc Malcolm MD IMG FLUOROSCOPY ORDERABLES Final Result * FL Video Swallow With Speech Single Contrast (10/03/2025 10:44 AM EST) Anatomical Region Laterality Modality Head and Neck N/A Radio Fluoroscop y 10/03/2025 11:1 1 AM EST Impressions 10/03/2025 3:55 PM EST Impression: Fluoroscopy provided for a modified barium swallow, and limited upper GI series. No aspiration was seen during swallowing evaluation. Limited upper GI series demonstrated mild gastroesophageal reflux, and a prominent cricopharyngeus muscle. Please see speech therapy report for full details and recommendations. Report dictated by: Maru Lim PA-c I have personally reviewed this case and agree with the findings above: Electronically Signed: Primo Randall MD 10/03/2025 3:55 PM EST Workstation ID: [id number] Narrative 10/03/2025 3:55 PM EST FL VIDEO SWALLOW W SPEECH SINGLE-CONTRAST, FL LIMITED UGI FOR MBS REFLUX SINGLE-CONTRAST Date of Exam: 10/03/2025 10:12 AM EST Indication: dysphagia. Comparison: None available. Technique: The speech pathologist administered food and/or liquid mixed with barium to the patient with cine/video imaging. Imaging assistance was provided to the speech pathologist and an image was saved. Fluoroscopic Time: 30 seconds Number of Images: 9 associated fluoroscopic loops were saved Findings: No aspiration was seen during fluoroscopic guided modified barium swallowing series. A limited view of the esophagus with the patient in the seated lateral position demonstrated a prominent cricopharyngeus muscle, and mild gastroesophageal reflux to the level of the midesophagus. There was no evidence of a focal esophageal stricture. Please see speech therapy report for full details and recommendations. Procedure Note Primo Randall MD - 10/03/2025 FL VIDEO SWALLOW W SPEECH SINGLE-CONTRAST, FL LIMITED UGI FOR MBS REFLUXSINGLE-CONTRAST Date of Exam: 10/03/2025 10:12 AM EST Indication: dysphagia. Comparison: None available. Technique: The speech pathologist administered food and/or liquid mixedwith barium to the patient with cine/video imaging. Imaging assistancewas provided to the speech pathologist and an image was saved. Fluoroscopic Time: 30 seconds Number of Images: 9 associated fluoroscopic loops were saved Findings: No aspiration was seen during fluoroscopic guided modified bariumswallowing series. A limited view of the esophagus with the patient in theseated lateral position demonstrated a prominent cricopharyngeus muscle,and mild gastroesophageal reflux to the level of the midesophagus. There was no evidence of a focal esophagealstricture. Please see speech therapy report for full details andrecommendations. IMPRESSION: Impression: Fluoroscopy provided for a modified barium swallow, and limited upper GIseries. No aspiration was seen during swallowing evaluation. Limited upperGI series demonstrated mild gastroesophageal reflux, and a prominentcricopharyngeus muscle. Please see speech therapy report for full details and recommendations. Report dictated by: Maru Lim PA-c I have personally reviewed this case and agree with the findings above: Electronically Signed: Primo Randall MD 10/03/2025 3:55 PM EST Workstation ID: [id number] Roc Malcolm MD IMG FLUOROSCOPY ORDERABLES Final Result * Magnesium (10/03/2025 7:25 AM EST) Magnesium 1.6 1.6 - 2.4 mg/dL 10/03/2025 8:17 AM EST [facility] Blood Venipuncture / Unknown 10/03/2025 7:25 AM EST 10/03/2025 7:44 AM EST us Roc Malcolm MD LAB BLOOD ORDERABLES Final Resul t [facility]
[address] [place] [address], * (ABNORMAL) Basic Metabolic Panel (10/03/2025 7:25 AM EST) Glucose 92 65 - 99 mg/dL 10/03/2025 8:17 AM EST [facility] BUN 21.2 8.0 - 23.0 mg/dL 10/03/2025 8:17 AM EST [facility] Creatinine 0.88 0.57 - 1.00 mg/dL 10/03/2025 8:17 AM EST [facility] Sodium 139 136 - 145 mmol/L 10/03/2025 8:17 AM EST [facility] Potassium 4.4 3.5 - 5.2 mmol/L 10/03/2025 8:17 AM EST [facility] Chloride 103 98 - 107 mmol/L 10/03/2025 8:17 AM [facility] CO2 26.0 22.0 - 29.0 mmol/L 10/03/2025 8:17 AM EST [facility] Calcium 8.5(L) 8.6 - 10.5 mg/dL 10/03/2025 8:17 AM [facility] BUN/Creatinine Ratio 24.1 7.0 - 25.0 10/03/2025 8:17 AM [facility] Anion Gap 10.0 5.0 - 15.0 mmol/L 10/03/2025 8:17 AM [facility] eGFR 73.0 >60.0 mL/min/1.7 3 10/03/2025 8:17 AM [facility] Blood Venipuncture / Unknown 10/03/2025 7:25 AM EST 10/03/2025 7:44 AM EST [facility] - 10/03/2025 8:17 AM EST GFR Categories in Chronic Kidney Disease (CKD) GFR Category GFR (mL/min/1.73) Interpretation G1 90 or greater Normal or high (1) G2 60-89 Mild decrease (1) G3a 45-59 Mild to moderate decrease G3b 30-44 Moderate to severe decrease G4 15-29 Severe decrease G5 14 or less Kidney failure (1)In the absence of evidence of kidney disease, neither GFR category G1 or G2 fulfill the criteria for CKD. eGFR calculation 2020 CKD-EPI creatinine equation, which does not include race as a factor Roc Malcolm MD LAB BLOOD ORDERABLES Final Resul t [facility]
[address] [place] [address], * Hemoglobin & Hematocrit, Blood (10/03/2025 7:25 AM EST) Hemoglobin 13.0 12.0 - 15.9 g/dL 10/03/2025 8:01 AM EST [facility] Hematocrit 42.2 34.0 - 46.6 % 10/03/2025 8:01 AM EST [facility] Blood Venipuncture / Unknown 10/03/2025 7:25 AM EST 10/03/2025 7:44 AM EST Roc Malcolm MD LAB BLOOD ORDERABLES Final Resul t Performing Organization Address City/[facility]/ZIP Co de Phone Number [facility]
[address] [place] [address], * POC Glucose Once (10/03/2025 7:05 AM EST) Glucose 94 70 - 130 mg/dL 10/03/2025 7:07 AM EST [facility] Comment:Serial Number: [id number]: [id number] Blood 10/03/2025 7:05 AM EST 10/03/2025 7:07 AM EST Sabrina Stephens MD POINT OF CARE TEST ORDERABLES F inal Result Performing Organization Address City/[facility]/ZIP Co de Phone Number [facility]
[address] [place] [address], * (ABNORMAL) POC Glucose Once (10/02/2025 8:18 PM EST) Glucose 143(H) 70 - 130 mg/dL 10/02/2025 8:20 PM EST [facility] Comment:Serial Number: [id number]: [id number] Blood 10/02/2025 8:18 PM EST 10/02/2025 8:20 PM EST Roc Malcolm MD POINT OF CARE TEST ORDERABLES Fi nal Result Performing Organization Address City/[facility] Co de Phone Number [facility]
[address] [place] [address], * (ABNORMAL) POC Glucose Once (10/02/2025 4:26 PM EST) Glucose 166(H) 70 - 130 mg/dL 10/02/2025 4:30 PM EST [facility] Comment:Serial Number: [id number]: [id number] Blood 10/02/2025 4:26 PM EST 10/02/2025 4:30 PM EST Roc Malcolm MD POINT OF CARE TEST ORDERABLES Fi nal Result Performing Organization Address [facility] Co de Phone Number [facility]
[address] [place] [address], * ECG 12 Lead QT Measurement (10/02/2025 12:36 PM EST) QT Interval 368 ms ECG QTC Interval 472 ms ECG 10/02/2025 12:3 6 PM EST 10/03/2025 8:27 AM EST Narrative BH ECG - 10/03/2025 8:27 AM EST Test Reason : QT Measurement Blood Pressure : */* mmHG Vent. Rate : 99 BPM Atrial Rate : 122 BPM P-R Int : * ms QRS Dur : 90 ms QT Int : 368 ms P-R-T Axes : * 57 74 degrees QTcB Int : 472 ms Atrial fibrillation with premature ventricular or aberrantly conducted complexes Abnormal ECG When compared with ECG of 01-Oct-2025 12:00, Atrial fibrillation has replaced Sinus rhythm Nonspecific T wave abnormality no longer evident in Lateral leads QT has shortened Confirmed by MD Michelle Robert ([id number]) on 10/03/2025 8:27:29 AM Referred By: ROC MALCOLM Confirmed By: Ishmael Michelle MD Procedure Note Ishmael Michelle MD - 10/03/2025 Test Reason : QT Measurement Blood Pressure : */* mmHG Vent. Rate : 99 BPM Atrial Rate : 122 BPM P-R Int : * ms QRS Dur : 90 ms QT Int : 368 ms P-R-T Axes : * 57 74 degrees QTcB Int : 472 ms Atrial fibrillation with premature ventricular or aberrantly conducted complexes Abnormal ECG When compared with ECG of 01-Oct-2025 12:00, Atrial fibrillation has replaced Sinus rhythm Nonspecific T wave abnormality no longer evident in Lateral leads QT has shortened Confirmed by MD Michelle Robert ([id number]) on 10/03/2025 8:27:29 AM Referred By: ROC MALCOLM Confirmed By: Ishmael Michelle MD Roc Malcolm MD ECG ORDERABLES Final Result Performing Organization Address City/[facility] Co de Phone Number ECG * (ABNORMAL) POC Glucose Once (10/02/2025 11:17 AM EST) Glucose 144(H) 70 - 130 mg/dL 10/02/2025 11:24 AM EST [facility] Comment:Serial Number: [id number]: [id number] Blood 10/02/2025 11:1 7 AM EST 10/02/2025 11:24 AM EST Roc Malcolm MD POINT OF CARE TEST ORDERABLES Fi nal Result Performing Organization Address City/[facility] Co de Phone Number [facility]
[address] [place] [address], * (ABNORMAL) POC Glucose Once (10/02/2025 7:21 AM EST) Glucose 148(H) 70 - 130 mg/dL 10/02/2025 7:23 AM EST [facility] Comment:Serial Number: [id number]: [id number] Blood 10/02/2025 7:21 AM EST 10/02/2025 7:23 AM EST Roc Malcolm MD POINT OF CARE TEST ORDERABLES Fi nal Result Performing Organization Address [facility]/ZIP Co de Phone Number [facility]
[address] [place] [address], * Hemoglobin & Hematocrit, Blood (10/02/2025 4:16 AM EST) Pathologist [facility] Hemoglobin 12.8 12.0 - 15.9 g/dL 10/02/2025 5:00 AM EST [facility] Hematocrit 40.6 34.0 - 46.6 % 10/02/2025 5:00 AM EST [facility] Blood Venipuncture / Unknown 10/02/2025 4:16 AM EST 10/02/2025 4:34 AM EST Franklin Thorpe MD LAB BLOOD ORDERABLES Final Re sult Performing Organization Address City/[facility]/ZIP Co de Phone Number [facility]
[address] [place] [address], * (ABNORMAL) CBC Auto Differential (10/02/2025 4:16 AM EST) WBC 12.58(H) 3.40 - 10.80 10*3/mm3 10/02/2025 5:00 AM EST [facility] RBC 4.30 3.77 - 5.28 10*6/mm3 10/02/2025 5:00 AM EST [facility] Hemoglobin 12.8 12.0 - 15.9 g/dL 10/02/2025 5:00 AM [facility] Hematocrit 40.6 34.0 - 46.6 % 10/02/2025 5:00 AM [facility] MCV 94.4 79.0 - 97.0 fL 10/02/2025 5:00 AM [facility] MCH 29.8 26.6 - 33.0 pg 10/02/2025 5:00 AM [facility] MCHC 31.5 31.5 - 35.7 g/dL 10/02/2025 5:00 AM [facility] RDW 14.9 12.3 - 15.4 % 10/02/2025 5:00 AM [facility] RDW-SD 52.0 37.0 - 54.0 fl 10/02/2025 5:00 AM [facility] MPV 12.0 6.0 - 12.0 fL 10/02/2025 5:00 AM [facility] Platelets 215 140 - 450 10*3/mm3 10/02/2025 5:00 AM [facility] Neutrophil % 77.8(H) 42.7 - 76.0 % 10/02/2025 5:00 AM [facility] Lymphocyte % 15.6(L) 19.6 - 45.3 % 10/02/2025 5:00 AM [facility] Monocyte % 5.4 5.0 - 12.0 % 10/02/2025 5:00 AM [facility] Eosinophil % 0.6 0.3 - 6.2 % 10/02/2025 5:00 AM [facility] Basophil % 0.2 0.0 - 1.5 % 10/02/2025 5:00 AM [facility] Immature Grans % 0.4 0.0 - 0.5 % 10/02/2025 5:00 AM [facility] Neutrophils, Absolute 9.80(H) 1.70 - 7.00 10*3/mm3 10/02/2025 5:00 AM [facility] Lymphocytes, Absolute 1.96 0.70 - 3.10 10*3/mm3 10/02/2025 5:00 AM EST [facility] Monocytes, Absolute 0.68 0.10 - 0.90 10*3/mm3 10/02/2025 5:00 AM EST [facility] Eosinophils, Absolute 0.07 0.00 - 0.40 10*3/mm3 10/02/2025 5:00 AM EST [facility] Basophils, Absolute 0.02 0.00 - 0.20 10*3/mm3 10/02/2025 5:00 AM EST [facility] Immature Grans, Absolute 0.05 0.00 - 0.05 10*3/mm3 10/02/2025 5:00 AM EST [facility] nRBC 0.0 0.0 - 0.2 /100 WBC 10/02/2025 5:00 AM EST [facility] Blood Venipuncture / Unknown 10/02/2025 4:16 AM EST 10/02/2025 4:34 AM EST Roc Malcolm MD LAB BLOOD ORDERABLES Final Resul t Performing Organization Address [facility] Co de Phone Number [facility]
[address] [place] [address], * (ABNORMAL) Heparin Anti-Xa (10/02/2025 4:16 AM EST) Heparin Anti-Xa (UFH) 0.10(L) 0.30 - 0.70 IU/ml 10/02/2025 5:04 AM EST [facility] Blood Venipuncture / Unknown 10/02/2025 4:16 AM EST 10/02/2025 4:35 AM EST [place] [facility] LAB BLOOD ORDERABLES Final Res ult Performing Organization Address City/[facility]/ZIP Co de Phone Number [facility]
[address] [place] [address], [place] [phone] * (ABNORMAL) C-reactive Protein (10/02/2025 4:16 AM EST) C-Reactive Protein 0.95(H) 0.00 - 0.50 mg/dL 10/02/2025 4:53 AM EST [facility] Blood Venipuncture / Unknown 10/02/2025 4:16 AM EST 10/02/2025 4:30 AM EST Roc Malcolm MD LAB BLOOD ORDERABLES Final Resul t Performing Organization Address City/[facility]/ZIP Co de Phone Number [facility]
[address] [place] [address], * Phosphorus (10/02/2025 4:16 AM EST) Phosphorus 4.2 2.5 - 4.5 mg/dL 10/02/2025 6:14 AM EST [facility] Blood Venipuncture / Unknown 10/02/2025 4:16 AM EST 10/02/2025 4:30 AM EST Roc Malcolm MD LAB BLOOD ORDERABLES Final Resul t Performing Organization Address City/[facility] Co de Phone Number [facility]
[address] [place] [address], * Magnesium (10/02/2025 4:16 AM EST) Magnesium 2.1 1.6 - 2.4 mg/dL 10/02/2025 4:53 AM EST [facility] Blood Venipuncture / Unknown 10/02/2025 4:16 AM EST 10/02/2025 4:30 AM EST us Roc Malcolm MD LAB BLOOD ORDERABLES Final Resul t Performing Organization Address City/[facility]/ZIP Co de Phone Number [facility]
[address] [place] [address], * (ABNORMAL) Basic Metabolic Panel (10/02/2025 4:16 AM EST) Glucose 111(H) 65 - 99 mg/dL 10/02/2025 4:53 AM EST [facility] BUN 13.2 8.0 - 23.0 mg/dL 10/02/2025 4:53 AM EST [facility] Creatinine 0.87 0.57 - 1.00 mg/dL 10/02/2025 4:53 AM EST [facility] Sodium 139 136 - 145 mmol/L 10/02/2025 4:53 AM EST [facility] Potassium 3.9 3.5 - 5.2 mmol/L 10/02/2025 4:53 AM EST [facility] Comment:Specimen hemolyzed. Result may be falsely elevated. Chloride 101 98 - 107 mmol/L 10/02/2025 4:53 AM [facility] CO2 26.5 22.0 - 29.0 mmol/L 10/02/2025 4:53 AM [facility] Calcium 8.5(L) 8.6 - 10.5 mg/dL 10/02/2025 4:53 AM [facility] BUN/Creatinine Ratio 15.2 7.0 - 25.0 10/02/2025 4:53 AM [facility] Anion Gap 11.5 5.0 - 15.0 mmol/L 10/02/2025 4:53 AM [facility] eGFR 74.0 >60.0 mL/min/1.7 3 10/02/2025 4:53 AM [facility] Blood Venipuncture / Unknown 10/02/2025 4:16 AM EST 10/02/2025 4:30 AM EST [facility] - 10/02/2025 4:53 AM EST GFR Categories in Chronic Kidney Disease (CKD) GFR Category GFR (mL/min/1.73) Interpretation G1 90 or greater Normal or high (1) G2 60-89 Mild decrease (1) G3a 45-59 Mild to moderate decrease G3b 30-44 Moderate to severe decrease G4 15-29 Severe decrease G5 14 or less Kidney failure (1)In the absence of evidence of kidney disease, neither GFR category G1 or G2 fulfill the criteria for CKD. eGFR calculation 2020 CKD-EPI creatinine equation, which does not include race as a factor us Roc Malcolm MD LAB BLOOD ORDERABLES Final Resul t Performing Organization Address [facility] Co de Phone Number [facility]
[address] [place] [address], * (ABNORMAL) POC Glucose Once (10/01/2025 10:36 PM EDT) Glucose 201(H) 70 - 130 mg/dL 10/01/2025 10:38 PM EDT [facility] Comment:Serial Number: [id number]: [id number] Blood 10/01/2025 10:3 6 PM EDT 10/01/2025 10:38 PM EDT us Roc Malcolm MD POINT OF CARE TEST ORDERABLES Fi nal Result Performing Organization Address [facility] de Phone Number [facility]
[address] [place] [address], * (ABNORMAL) aPTT (10/01/2025 7:37 PM EDT) PTT 20.3(L) 60.0 - 90.0 seconds 10/01/2025 8:48 PM EDT [facility] Blood Venipuncture / Unknown 10/01/2025 7:37 PM EDT 10/01/2025 7:52 PM EDT Narrative [facility] - 10/01/2025 8:48 PM EDT PTT = The equivalent PTT values for the therapeutic range of heparin levels at 0.3 to 0.5 U/ml are 60 to 70 seconds. us Roc Malcolm MD LAB BLOOD ORDERABLES Final Resul t Performing Organization Address [facility] Co de Phone Number [facility]
[address] [place] [address], * Protime-INR (10/01/2025 7:37 PM EDT) Protime 13.9 12.2 - 15.3 Seconds 10/01/2025 8:23 PM EDT [facility] INR 1.01 0.89 - 1.12 10/01/2025 8:23 PM EDT [facility] Blood Venipuncture / Unknown 10/01/2025 7:37 PM EDT 10/01/2025 7:52 PM EDT Roc Malcolm MD LAB BLOOD ORDERABLES Final Resul t Performing Organization Address [facility] Co de Phone Number [facility]
[address] [place] [address], * (ABNORMAL) Heparin Anti-Xa (10/01/2025 7:37 PM EDT) Pathologist [facility] Heparin Anti-Xa (UFH) 0.10(L) 0.30 - 0.70 IU/ml 10/01/2025 8:24 PM EDT [facility] Blood Venipuncture / Unknown 10/01/2025 7:37 PM EDT 10/01/2025 7:52 PM EDT Roc Malcolm MD LAB BLOOD ORDERABLES Final Resul t Performing Organization Address [facility] Co de Phone Number [facility]
[address] [place] [address], * (ABNORMAL) POC Glucose Once (10/01/2025 5:44 PM EDT) Glucose 155(H) 70 - 130 mg/dL 10/01/2025 5:46 PM EDT [facility] Comment:Serial Number: [id number] Blood 10/01/2025 5:44 PM EDT 10/01/2025 5:46 PM EDT Roc Malcolm MD POINT OF CARE TEST ORDERABLES Fi nal Result [facility]
[address] [place] [address], * (ABNORMAL) CBC Auto Differential (10/01/2025 4:19 PM EDT) WBC 7.28 3.40 - 10.80 10*3/mm3 10/01/2025 8:07 PM EDT [facility] RBC 4.56 3.77 - 5.28 10*6/mm3 10/01/2025 8:07 PM EDT [facility] Hemoglobin 13.4 12.0 - 15.9 g/dL 10/01/2025 8:07 PM EDT [facility] Hematocrit 44.5 34.0 - 46.6 % 10/01/2025 8:07 PM EDT [facility] MCV 97.6(H) 79.0 - 97.0 fL 10/01/2025 8:07 PM EDT [facility] MCH 29.4 26.6 - 33.0 pg 10/01/2025 8:07 PM EDT [facility] MCHC 30.1(L) 31.5 - 35.7 g/dL 10/01/2025 8:07 PM EDT [facility] RDW 15.2 12.3 - 15.4 % 10/01/2025 8:07 PM EDT [facility] RDW-SD 54.5(H) 37.0 - 54.0 fl 10/01/2025 8:07 PM EDT [facility] MPV 12.1(H) 6.0 - 12.0 fL 10/01/2025 8:07 PM EDT [facility] Platelets 217 140 - 450 10*3/mm3 10/01/2025 8:07 PM EDT [facility] Neutrophil % 88.1(H) 42.7 - 76.0 % 10/01/2025 8:07 PM EDT [facility] Lymphocyte % 10.3(L) 19.6 - 45.3 % 10/01/2025 8:07 PM EDT [facility] Monocyte % 1.1(L) 5.0 - 12.0 % 10/01/2025 8:07 PM EDT [facility] Eosinophil % 0.0(L) 0.3 - 6.2 % 10/[facility] Basophil % 0.1 0.0 - 1.5 % 10/01/2025 8:07 PM EDT [facility] Immature Grans % 0.4 0.0 - 0.5 % 10/01/2025 8:07 PM T [facility] Neutrophils, Absolute 6.41 1.70 - 7.00 10*3/mm3 10/01/2025 8:[facility] Lymphocytes, Absolute 0.75 0.70 - 3.10 10*3/mm3 10/01/2025 8:07 [facility] Monocytes, Absolute 0.08(L) 0.10 - 0.90 10*3/mm3 10/01/2025 8:07 [facility] Eosinophils, Absolute 0.00 0.00 - 0.40 10*3/mm3 10/01/2025 8:07 [facility] Basophils, Absolute 0.01 0.00 - 0.20 10*3/mm3 10/01/2025 8:07 [facility] Immature Grans, Absolute 0.03 0.00 - 0.05 10*3/mm3 10/01/2025 8:07 PM EDT [facility] nRBC 0.3(H) 0.0 - 0.2 /100 WBC 10/01/2025 8:07 PM EDT [facility] Blood Venipuncture / Unknown 10/01/2025 4:19 PM EDT 10/01/2025 4:47 PM EDT us Roc Malcolm MD LAB BLOOD ORDERABLES Final Resul t Performing Organization Address City/[facility]/ZIP Co de Phone Number [facility]
[address] [place] [address], * Hemoglobin & Hematocrit, Blood (10/01/2025 4:19 PM EDT) Hemoglobin 13.7 12.0 - 15.9 g/dL 10/01/2025 4:53 PM EDT [facility] Hematocrit 44.4 34.0 - 46.6 % 10/01/2025 4:53 PM EDT [facility] Blood Venipuncture / Unknown 10/01/2025 4:19 PM EDT 10/01/2025 4:47 PM EDT us Franklin Thorpe MD LAB BLOOD ORDERABLES Final Re sult Performing Organization Address [facility] Co de Phone Number [facility]
[address] [place] [address], * Potassium (10/01/2025 4:19 PM EDT) Potassium 4.1 3.5 - 5.2 mmol/L 10/01/2025 5:10 PM EDT [facility] Comment:Specimen hemolyzed. Result may be falsely elevated. Blood Venipuncture / Unknown 10/01/2025 4:19 PM EDT 10/01/2025 4:49 PM EDT us Franklin Thorpe MD LAB BLOOD ORDERABLES Final Re sult Performing Organization Address City/[facility]/ZIP Co de Phone Number [facility]
[address] [place] [address], * ECG 12 Lead QT Measurement (10/01/2025 12:00 PM EDT) QT Interval 508 ms ECG QTC Interval 536 ms ECG 10/01/2025 12:0 0 PM EDT 10/02/2025 10:44 AM EST Narrative ECG - 10/02/2025 10:44 AM EST Test Reason : QT Measurement Blood Pressure : */* mmHG Vent. Rate : 67 BPM Atrial Rate : 67 BPM P-R Int : 194 ms QRS Dur : 90 ms QT Int : 508 ms P-R-T Axes : 75 67 91 degrees QTcB Int : 536 ms Sinus rhythm with occasional premature ventricular complexes Prolonged QT Abnormal ECG When compared with ECG of 30-Sep-2025 22:15, (Unconfirmed) T wave inversion less evident in Anterior leads Confirmed by JANN MILAN MD ([id number]) on 10/02/2025 10:44:28 AM Referred By: Confirmed By: JANN MILAN MD Procedure Note Jnan Milan MD - 10/02/2025 Test Reason : QT Measurement Blood Pressure : */* mmHG Vent. Rate : 67 BPM Atrial Rate : 67 BPM P-R Int : 194 ms QRS Dur : 90 ms QT Int : 508 ms P-R-T Axes : 75 67 91 degrees QTcB Int : 536 ms Sinus rhythm with occasional premature ventricular complexes Prolonged QT Abnormal ECG When compared with ECG of 30-Sep-2025 22:15, (Unconfirmed) T wave inversion less evident in Anterior leads Confirmed by JANN MILAN MD ([id number]) on 10/02/2025 10:44:28 AM Referred By: Confirmed By: JANN MILAN MD Roc Malcolm MD ECG ORDERABLES Final Result ECG * (ABNORMAL) POC Glucose Once (10/01/2025 11:41 AM EDT) Glucose 151(H) 70 - 130 mg/dL 10/01/2025 11:43 AM EDT [facility] Comment:Serial Number: [id number]: [id number] Blood 10/01/2025 11:4 1 AM EDT 10/01/2025 11:43 AM EDT us Roc Malcolm MD POINT OF CARE TEST ORDERABLES Fi nal Result Performing Organization Address [facility] Co de Phone Number [facility]
[address] [place] [address], * (ABNORMAL) MRSA Screen, PCR (Inpatient) - Swab, Nares (10/01/2025 10:36 AM EDT) MRSA PCR Positive(A ) Negative CEPHEID GENEXPERT 10/01/2025 12:07 PM EDT [facility] Swab Structure of anterior naris / Unknown Collection / Unknown 10/01/2025 10:36 AM EDT 10/01/2025 10:36 AM EDT Narrative [facility] - 10/01/2025 12:07 PM EDT The negative predictive value of this diagnostic test is high and should only be used to consider de-escalating anti-MRSA therapy. A positive result may indicate colonization with MRSA and must be correlated clinically. us Roc Malcolm MD MICROBIOLOGY - GENERAL ORDERABLE S Final Result Performing Organization Address [facility] Co de Phone Number [facility]
[address] [place] [address], * (ABNORMAL) Blood Gas, Arterial With Co-Ox (10/01/2025 9:07 AM EDT) Site Left Brachial 10/01/2025 9:07 AM EDT [facility] THERAPY Wili's Test N/A 10/01/2025 9:07 AM EDT [facility] THERAPY pH, Arterial 7.339(L) 7.350 - 7.450 pH units 10/01/2025 9:07 AM [facility] THERAP[facility] Comment:84 Value below refer ence range pCO2, Arterial 55.2(H) 35.0 - 45.0 mm Hg 10/01/2025 9:07 AM [facility] THERAPY Comment:83 Value above refer ence range pO2, Arterial 86.8 83.0 - 108.0 mm Hg 10/01/2025 9:07 AM T [facility] THERAPY HCO3, Arterial 29.6(H) 20.0 - 26.0 mmol/L 10/01/2025 9:07 AM [facility] THERAPY Base Excess, Arterial 2.6(H) 0.0 - 2.0 mmol/L 10/01/2025 9:07 AM [facility] THERAPY Hemoglobin, Blood Gas 13.7(L) 14 - 18 g/dL 10/01/2025 9:07 AM [facility] THERAPY Hematocrit, Blood Gas 42.1 38.0 - 51.0 % 10/01/2025 9:07 AM [facility] THERAPY Oxyhemoglobin 93.6(L) 94 - 99 % 10/01/2025 9:07 AM [facility] THERAPY Comment:84 Value below refer ence range Methemoglobin 0.20 0.00 - 1.50 % 10/01/2025 9:07 AM [facility] THERAPY Carboxyhemoglobin 2.5(H) 0 - 2 % 9:07 AM [facility] THERAPY Comment:83 Value above refer ence range CO2 Content 31.3 22 - 33 mmol/L 10/01/2025 9:07 AM [facility] THERAPY Temperature 37.0 10/01/2025 9:07 AM [facility] THERAPY Barometric Pressure for Blood Gas 10/01/2025 9:07 AM [facility] THERAPY Comment:N/A Modality BiPap 10/01/2025 9:07 AM [facility] THERAPY FIO2 45 % 10/01/2025 9:07 AM EDT [facility] Ventilator Mode BiPAP 9:07 AM EDT [facility] IPAP 16 cm H2O 10/01/2025 9:07 AM EDT [facility] Comment:Meter: [id number] Associate Director Of Nursing: [id number] EPAP 6 cm H2O 10/01/2025 9:07 AM EDT [facility] TH[facility] pH, Temp Corrected 7.339 pH Units 2024 9:07 AM EDT [facility] THERAPY pCO2, Temperature Corrected 55.2(H) 35 - 45 mm Hg 10/01/2025 9:07 AM EDT [facility] TH[facility] pO2, Temperature Corrected 86.8 83 - 108 mm Hg 10/01/2025 9:07 AM EDT [facility] TH[facility] Arterial Blood 10/01/2025 9: 07 AM EDT 10/01/2025 9:07 AM EDT Roc Malcolm MD LAB BLOOD ORDERABLES Final Resul t [facility] TH[facility]
[address] * S. Pneumo Ag Urine or CSF - Urine, Urine, Clean Catch (10/01/2025 6:39 AM EDT) Strep Pneumo Ag Negative Negative 10/01/2025 12:48 PM EDT [facility] Urine Urine specimen obtained by clean catch procedure / Unknown Collection / Unknown 10/01/2025 6:39 AM EDT 10/01/2025 9:50 AM EDT Roc Malcolm MD MICROBIOLOGY - GENERAL ORDERABLE S Final Result [facility]
[address] [phone] * Legionella Antigen, Urine - Urine, Urine, Clean Catch (10/01/2025 6:39 AM EDT) LEGIONELLA ANTIGEN, URINE Negative Negative 10/01/2025 12:47 PM EDT [facility] Urine Urine specimen obtained by clean catch procedure / Unknown Collection / Unknown 10/01/2025 6:39 AM EDT 10/01/2025 9:50 AM EDT Roc Malcolm MD MICROBIOLOGY - GENERAL ORDERABLE S Final Result [facility]
[address] [place] [address], [place] [phone] * (ABNORMAL) Urinalysis, Microscopic Only - Urine, Clean Catch (10/01/2025 6:39 AM EDT) RBC, UA 0-2 None Seen, 0-2 /HPF 10/01/2025 7:36 AM EDT [facility] WBC, UA 21-50(A) None Seen, 0-2 /HPF 10/01/2025 7:36 AM EDT [facility] Bacteria, UA None Seen None Seen /HPF 10/01/2025 7:36 AM EDT [facility] Squamous Epithelial Cells, UA 0-2 None Seen, 0-2 /HPF 10/01/2025 7:36 AM EDT [facility] Hyaline Casts, UA 3-6 None Seen /LPF 10/01/2025 7:36 AM EDT [facility] Methodology Automated Microscopy 10/01/2025 7:36 AM EDT [facility] Urine Urine specimen obtained by clean catch procedure / Unknown Collection / Unknown 10/01/2025 6:39 AM EDT 10/01/2025 7:05 AM EDT Franklin Thorpe MD URINE ORDERABLES Final Result [facility]
[address] [place] [address], [place] [phone] * Fentanyl, Urine - Urine, Clean Catch (10/01/2025 6:39 AM EDT) Fentanyl, Urine Negative Negative 10/01/2025 10:01 AM EDT [facility] Urine Urine specimen obtained by clean catch procedure / Unknown Collection / Unknown 10/01/2025 6:39 AM EDT 10/01/2025 7:05 AM EDT [facility] - 10/01/2025 10:01 AM EDT Negative Threshold: Fentanyl 5 ng/mL The normal value for the drug tested is negative. This report includes final unconfirmed screening results to be used for medical treatment purposes only. Unconfirmed results must not be used for non-medical purposes such as employment or legal testing. Clinical consideration should be applied to any drug of abuse test, particularly when unconfirmed results are used. Roc Malcolm MD URINE ORDERABLES Final Result [facility]
[address] [place] [address], * (ABNORMAL) Urine Drug Screen - Urine, Clean Catch (10/01/2025 6:39 AM EDT) Pathologist [facility] THC, Screen, Urine Positive(A) Negative 10/01 7:19 AM EDT [facility] Phencyclidine (PCP), Urine Negative Negative 10/01/2025 7:19 AM EDT [facility] Cocaine Screen, Urine Positive(A) Negative 10/01/2025 7:19 AM EDT [facility] Methamphetamine, Ur Negative Negative 10/01/2025 7:19 AM EDT [facility] Opiate Screen Positive(A) Negative 10/01/2025 7:19 AM EDT [facility] Amphetamine Screen, Urine Negative Negative 10/01/2025 7:19 AM EDT [facility] Benzodiazepine Screen, Urine Positive(A) Negative 10/01/2025 7:19 AM EDT [facility] Tricyclic Antidepressants Screen Negative Negative 10/01/2025 7:19 AM EDT [facility] Methadone Screen, Urine Negative Negative 10/01/2025 7:19 AM EDT [facility] Barbiturates Screen, Urine Negative Negative 10/01/2025 7:19 AM EDT [facility] Oxycodone Screen, Urine Negative Negative 10/01/2025 7:19 AM EDT [facility] Buprenorphine, Screen, Urine Negative Negative 10/01/2025 7:19 AM EDT [facility] Urine Urine specimen obtained by clean catch procedure / Unknown Collection / Unknown 10/01/2025 6:39 AM EDT 10/01/2025 7:05 AM EDT [facility] - 10/01/2025 7:19 AM EDT Cutoff For Drugs Screened: Amphetamines 500 ng/ml Barbiturates 200 ng/ml Benzodiazepines 150 ng/ml Cocaine 150 ng/ml Methadone 200 ng/ml Opiates 100 ng/ml Phencyclidine 25 ng/ml THC 50 ng/ml Methamphetamine 500 ng/ml Tricyclic Antidepressants 300 ng/ml Oxycodone 100 ng/ml Buprenorphine 10 ng/ml The normal value for all drugs tested is negative. This report includes unconfirmed screening results, with the cutoff values listed, to be used for medical treatment purposes only. Unconfirmed results must not be used for non-medical purposes such as employment or legal testing. Clinical consideration should be applied to any drug of abuse test, particularly when unconfirmed results are used. Roc Malcolm MD URINE ORDERABLES Final Result [facility]
[address] [place] [address], * (ABNORMAL) Urinalysis With Microscopic If Indicated (No Culture) - Urine, Clean Catch (10/01/2025 6:39 AM EDT) Color, UA Yellow Yellow, Straw 10/01/2025 7:36 AM EDT [facility] Appearance, UA Clear Clear 10/01/2025 7:36 AM EDT [facility] pH, UA <=5.0 5.0 - 8.0 10/01/2025 7:36 AM EDT [facility] Specific [place], UA >1.030(H) 1.005 - 1.030 10/01/2025 7:36 AM EDT [facility] Glucose, UA Negative Negative 10/01/2025 7:36 AM EDT [facility] Ketones, UA Negative Negative 10/01/2025 7:36 AM EDT [facility] Bilirubin, UA Negative Negative 10/01/2025 7:36 AM EDT [facility] Blood, UA Negative Negative 10/01/2025 7:36 AM EDT [facility] Protein, UA Negative Negative 10/01/2025 7:36 AM EDT [facility] Leuk Esterase, UA Moderate (2+)(A) Negative 10/01/2025 7:36 AM EDT [facility] Nitrite, UA Negative Negative 10/01/2025 7:36 AM EDT [facility] Urobilinogen, UA 0.2 E.U./dL 0.2 - 1.0 E.U./dL 10/01/2025 7:36 AM EDT [facility] Urine Urine specimen obtained by clean catch procedure / Unknown Collection / Unknown 10/01/2025 6:39 AM EDT 10/01/2025 7:05 AM EDT us Franklin Thorpe MD URINE ORDERABLES Final Result [facility]
[address] [place] [address], * XR Chest 1 View (10/01/2025 6:18 AM EDT) Anatomical Region Laterality Modality Body N/A Radiographic Nancy ging 10/01/2025 6:54 AM EDT Impressions 10/01/2025 6:55 AM EDT Impression: Increasing diffuse interstitial opacities suspicious for pulmonary edema. Infectious process is possible. Electronically Signed: Rusty Larry MD 10/01/2025 6:55 AM EDT Workstation ID: [id number] Narrative 10/01/2025 6:55 AM EDT XR CHEST 1 VW Date of Exam: 10/01/2025 6:06 AM EDT Indication: hypoxia. Comparison: CT chest and chest radiograph 09/30/2025 Findings: Right chest port catheter tip terminates near cavoatrial junction. Mild cardiomegaly. Slightly prominent indistinct central vasculature with diffuse increased interstitial opacities radiographically increased from prior comparison. No significant pleural effusion. No pneumothorax. Degenerative related osseous change. Procedure Note Rusty Larry MD - 10/01/2025 XR CHEST 1 VW Date of Exam: 10/01/2025 6:06 AM EDT Indication: hypoxia. Comparison: CT chest and chest radiograph 09/30/2025 Findings: Right chest port catheter tip terminates near cavoatrial junction. Mildcardiomegaly. Slightly prominent indistinct central vasculature withdiffuse increased interstitial opacities radiographically increased fromprior comparison. No significant pleural effusion. No pneumothorax. Degenerative related osseous change. IMPRESSION: Impression: Increasing diffuse interstitial opacities suspicious for pulmonary edema.Infectious process is possible. Electronically Signed: Rusty Larry MD 10/01/2025 6:55 AM EDT Workstation ID: [id number] Franklin Thorpe MD IMG DIAGNOSTIC IMAGING ORDERA BLES Final Result * (ABNORMAL) C-reactive Protein (10/01/2025 6:14 AM EDT) C-Reactive Protein 1.89(H) 0.00 - 0.50 mg/dL 10/01/2025 11:58 AM EDT [facility] Blood Venipuncture / Unknown 10/01/2025 6:14 AM EDT 10/01/2025 6:21 AM EDT Roc Malcolm MD LAB BLOOD ORDERABLES Final Resul t Performing Organization Address [facility] Co de Phone Number [facility]
[address] [place] [address], * proBNP (10/01/2025 6:14 AM EDT) proBNP 319.0 0.0 - 900.0 pg/mL 10/01/2025 8:26 AM EDT [facility] Blood Venipuncture / Unknown 10/01/2025 6:14 AM EDT 10/01/2025 6:21 AM EDT Narrative [facility] - 10/01/2025 8:26 AM EDT This assay is used as an aid in the diagnosis of individuals suspected of having heart failure. It can be used as an aid in the diagnosis of acute decompensated heart failure (ADHF) in patients presenting with signs and symptoms of ADHF to the emergency department (ED). In addition, NT-proBNP of <300 pg/mL indicates ADHF is not likely. Age Range Result Interpretation NT-proBNP Concentration (pg/mL: <50 Positive >450 Juárez 300-450 Negative <300 50-75 Positive >900 Juárez 300-900 Negative <300 >75 Positive >1800 Juárez 300-1800 Negative <300 us Roc Malcolm MD LAB BLOOD ORDERABLES Final Resul t Performing Organization Address [facility] Co de Phone Number [facility]
[address] [place] [address], * (ABNORMAL) Phosphorus (10/01/2025 6:14 AM EDT) Phosphorus 5.7(H) 2.5 - 4.5 mg/dL 10/01/2025 8:26 AM EDT [facility] Blood Venipuncture / Unknown 10/01/2025 6:14 AM EDT 10/01/2025 6:21 AM EDT us Roc Malcolm MD LAB BLOOD ORDERABLES Final Resul t Performing Organization Address City/[facility]/ZIP Co de Phone Number [facility]
[address] [place] [address], * Scan Slide (10/01/2025 6:14 AM EDT) RBC Morphology Normal Normal 10/01/2025 7:25 AM EDT [facility] WBC Morphology Normal Normal 10/01/2025 7:25 AM EDT [facility] Platelet Morphology Normal Normal 10/01/2025 7:25 AM EDT [facility] Blood Venipuncture / Unknown 10/01/2025 6:14 AM EDT 10/01/2025 6:21 AM EDT us Franklin Thorpe MD LAB BLOOD ORDERABLES Final Re sult Performing Organization Address [facility] Co de Phone Number [facility]
[address] [place] [address], * Magnesium (10/01/2025 6:14 AM EDT) Pathologist [facility] Magnesium 1.9 1.6 - 2.4 mg/dL 10/01/2025 6:59 AM EDT [facility] Blood Venipuncture / Unknown 10/01/2025 6:14 AM EDT 10/01/2025 6:21 AM EDT us Franklin Thorpe MD LAB BLOOD ORDERABLES Final Re sult Performing Organization Address City/[facility]/ZIP Co de Phone Number [facility]
[address] [place] [address], * (ABNORMAL) Basic Metabolic Panel (10/01/2025 6:14 AM EDT) Glucose 124(H) 65 - 99 mg/dL 10/01/2025 6:57 AM EDT [facility] BUN 15.5 8.0 - 23.0 mg/dL 10/01/2025 6:57 AM T [facility] Creatinine 1.16(H) 0.57 - 1.00 mg/dL 10/01/2025 6:57 AM T [facility] Sodium 137 136 - 145 mmol/L 10/01/2025 6:57 AM T [facility] Potassium 3.7 3.5 - 5.2 mmol/L 10/01/2025 6:57 AM EDT [facility] Chloride 95(L) 98 - 107 mmol/L 10/01/2025 6:57 AM EDT [facility] CO2 26.5 22.0 - 29.0 mmol/L 10/01/2025 6:57 AM [facility] Calcium 8.5(L) 8.6 - 10.5 mg/dL 10/01/2025 6:57 AM [facility] BUN/Creatinine Ratio 13.4 7.0 - 25.0 10/01/2025 6:57 AM T [facility] Anion Gap 15.5(H) 5.0 - 15.0 mmol/L 10/01/2025 6:57 AM [facility] eGFR 52.4(L) >60.0 mL/min/1.7 3 10/01/2025 6:57 AM [facility] Blood Venipuncture / Unknown 10/01/2025 6:14 AM EDT 10/01/2025 6:21 AM EDT [facility] - 10/01/2025 6:57 AM EDT GFR Categories in Chronic Kidney Disease (CKD) GFR Category GFR (mL/min/1.73) Interpretation G1 90 or greater Normal or high (1) G2 60-89 Mild decrease (1) G3a 45-59 Mild to moderate decrease G3b 30-44 Moderate to severe decrease G4 15-29 Severe decrease G5 14 or less Kidney failure (1)In the absence of evidence of kidney disease, neither GFR category G1 or G2 fulfill the criteria for CKD. eGFR calculation 2020 CKD-EPI creatinine equation, which does not include race as a factor us Franklin Thorpe MD LAB BLOOD ORDERABLES Final Re sult [facility]
[address] [place] [id number], * (ABNORMAL) CBC Auto Differential (10/01/2025 6:14 AM EDT) WBC 10.60 3.40 - 10.80 10*3/mm3 10/01/2025 7:25 AM EDT [facility] RBC 4.79 3.77 - 5.28 10*6/mm3 10/01/2025 7:25 AM EDT [facility] Hemoglobin 14.6 12.0 - 15.9 g/dL 10/01/2025 7:25 AM EDT [facility] Hematocrit 45.3 34.0 - 46.6 % 10/01/2025 7:25 AM EDT [facility] MCV 94.6 79.0 - 97.0 fL 10/01/2025 7:25 AM EDT [facility] MCH 30.5 26.6 - 33.0 pg 10/01/2025 7:25 AM EDT [facility] MCHC 32.2 31.5 - 35.7 g/dL 10/01/2025 7:25 AM EDT [facility] RDW 14.7 12.3 - 15.4 % 10/01/2025 7:25 AM EDT [facility] RDW-SD 51.4 37.0 - 54.0 fl 10/01/2025 7:25 AM EDT [facility] MPV 11.3 6.0 - 12.0 fL 10/01/2025 7:25 AM EDT [facility] Platelets 218 140 - 450 10*3/mm3 10/01/2025 7:25 AM EDT [facility] Neutrophil % 82.9(H) 42.7 - 76.0 % 10/01/2025 7:25 AM EDT [facility] Lymphocyte % 13.6(L) 19.6 - 45.3 % 10/01/2025 7:25 AM EDT [facility] Monocyte % 2.1(L) 5.0 - 12.0 % 10/01/2025 7:25 AM EDT [facility] Eosinophil % 0.7 0.3 - 6.2 % 10/01/2025 7:25 AM EDT [facility] Basophil % 0.3 0.0 - 1.5 % 10/01/2025 7:25 AM EDT [facility] Immature Grans % 0.4 0.0 - 0.5 % 10/01/2025 7:25 AM EDT [facility] Neutrophils, Absolute 8.80(H) 1.70 - 7.00 10*3/mm3 10/01/2025 7:25 AM EDT [facility] Lymphocytes, Absolute 1.44 0.70 - 3.10 10*3/mm3 10/01/2025 7:25 AM EDT [facility] Monocytes, Absolute 0.22 0.10 - 0.90 10*3/mm3 10/01/2025 7:25 AM EDT [facility] Eosinophils, Absolute 0.07 0.00 - 0.40 10*3/mm3 10/01/2025 7:25 AM EDT [facility] Basophils, Absolute 0.03 0.00 - 0.20 10*3/mm3 10/01/2025 7:25 AM EDT [facility] Immature Grans, Absolute 0.04 0.00 - 0.05 10*3/mm3 10/01/2025 7:25 AM EDT [facility] nRBC 0.0 0.0 - 0.2 /100 WBC 10/01/2025 7:25 AM [facility] Blood Venipuncture / Unknown 10/01/2025 6:14 AM EDT 10/01/2025 6:21 AM EDT us Franklin Thorpe MD LAB BLOOD ORDERABLES Final Re sult [facility]
[address] [place] [address], * Lactic Acid, Plasma (10/01/2025 6:13 AM EDT) [facility] Lactate 1.8 0.5 - 2.0 mmol/L 10/01/2025 6:57 AM EDT [facility] Comment:Falsely depressed re sults may occur on samples drawn from patients receiving N-Acetylcysteine (NAC) or Metamizole. Blood Venipuncture / Unknown 10/01/2025 6:13 AM EDT 10/01/2025 6:21 AM EDT us Franklin Thorpe MD LAB BLOOD ORDERABLES Final Re sult Performing Organization Address [facility] Co de Phone Number [facility]
[address] [place] [address], * (ABNORMAL) POC Glucose Once (10/01/2025 5:58 AM EDT) [facility] Glucose 132(H) 70 - 130 mg/dL 10/01/2025 6:00 AM EDT [facility] Comment:Serial Number: [id number] Blood 10/01/2025 5:58 AM EDT 10/01/2025 6:00 AM EDT us Franklin Thorpe MD POINT OF CARE TEST ORDERABLES Final Result Performing Organization Address [facility] Co de Phone Number [facility]
[address] [place] [address], * (ABNORMAL) Blood Gas, Arterial With Co-Ox (10/01/2025 4:49 AM EDT) [facility] Site Left Radial 10/01/2025 4:51 AM EDT [facility] THERAPY Wili's Test N/A 10/01/2025 4:51 AM [facility] THERAPY pH, Arterial 7.316(L) 7.350 - 7.450 pH units 10/01/2025 4:51 AM [facility] THERAPY Comment:84 Value below refer ence range pCO2, Arterial 61.8(H) 35.0 - 45.0 mm Hg 10/01/2025 4:51 AM [facility] THERAPY Comment:83 Value above refer ence range pO2, Arterial 70.8(L) 83.0 - 108.0 mm Hg 10/01/2025 4:51 AM [facility] THERAPY Comment:84 Value below refer ence range HCO3, Arterial 31.5(H) 20.0 - 26.0 mmol/L 10/01/2025 4:51 AM [facility] THERAPY Base Excess, Arterial 3.6(H) 0.0 - 2.0 mmol/L 10/01/2025 4:51 AM [facility] THERAPY Hemoglobin, Blood Gas 13.7(L) 14 - 18 g/dL 10/01/2025 4:51 AM [facility] THERAPY Hematocrit, Blood Gas 42.0 38.0 - 51.0 % 10/01/2025 4:51 AM [facility] THERAPY Oxyhemoglobin 88.8(L) 94 - 99 % 10/01/2025 4:51 AM [facility] THERAPY Comment:84 Value below refer ence range Methemoglobin 0.30 0.00 - 1.50 % 10/01/2025 4:51 AM [facility] THERAPY Carboxyhemoglobin 3.7(H) 0 - 2 % 025 4:51 AM [facility] THERAPY Comment:83 Value above refer ence range CO2 Content 33.4(H) 22 - 33 mmol/L 10/01/2025 4:51 AM [facility] THERAPY Temperature 37.0 10/01/2025 4:51 AM [facility] Barometric Pressure for Blood Gas 10/01/2025 4:51 AM EDT [facility] Comment:N/A Modality PRB 10/01/2025 4:51 AM EDT [facility] FIO2 80 % 10/01/2025 4:51 AM EDT [facility] Rate 0 Breaths/ minute 10/01/2025 4:51 AM EDT [facility] PIP 0 cmH2O 10/01/2025 4:51 AM EDT [facility] Comment:Meter: [id number] Associate Director Of Nursing: [id number] IPAP 0 cm H2O 10/01/2025 4:51 AM EDT [facility] EPAP 0 cm H2O 10/01/2025 4:51 AM EDT [facility] pH, Temp Corrected 7.316 pH Units 2024 4:51 AM EDT [facility] pCO2, Temperature Corrected 61.8(H) 35 - 45 mm Hg 10/01/2025 4:51 AM EDT [facility] pO2, Temperature Corrected 70.8(L) 83 - 108 mm Hg 10/01/2025 4:51 AM EDT [facility] Arterial Blood 10/01/2025 4: 49 AM EDT 10/01/2025 4:49 AM EDT us Franklin Thorpe MD LAB BLOOD ORDERABLES Final Re sult [facility]
[address] * Respiratory Panel PCR w/COVID-19(SARS-CoV-2) CHRISTINA/JUANA/BELEN/PAD/COR/TYAR In-House, [employer] Swab in UTM/VTM, 2 HR TAT - Swab, Nasopharynx (10/01/2025 12:07 AM EDT) ADENOVIRUS, PCR Not Detected Not Detected BIOFIRE TORCH 10/01/2025 1:35 AM EDT [facility] Coronavirus 229E Not Detected Not Detected BIOFIRE TORCH 10/01/2025 1:35 AM EDT [facility] Coronavirus HKU1 Not Detected Not Detected [facility] 10/01/2025 1:35 AM EDT [facility] Coronavirus NL63 Not Detected Not Detected [facility] 10/01/2025 1:35 AM EDT [facility] Coronavirus OC43 Not Detected Not Detected [facility] 10/01/2025 1:35 AM EDT [facility] COVID19 Not Detected Not Detected - Ref. Range [facility] 10/01/2025 1:35 AM EDT [facility] Human Metapneumovirus Not Detected Not Detected [facility] 10/01/2025 1:35 AM EDT [facility] Human Rhinovirus/Enterov irus Not Detected Not Detected [facility] 10/01/2025 1:35 AM EDT [facility] Influenza A PCR Not Detected Not Detected [facility] 10/01/2025 1:35 AM EDT [facility] Influenza B PCR Not Detected Not Detected [facility] 10/01/2025 1:35 AM EDT [facility] Parainfluenza Virus 1 Not Detected Not Detected [facility] 10/01/2025 1:35 AM EDT [facility] Parainfluenza Virus 2 Not Detected Not Detected [facility] 10/01/2025 1:35 AM EDT [facility] Parainfluenza Virus 3 Not Detected Not Detected [facility] 10/01/2025 1:35 AM EDT [facility] Parainfluenza Virus 4 Not Detected Not Detected [facility] 10/01/2025 1:35 AM EDT [facility] RSV, PCR Not Detected Not Detected [facility] 10/01/2025 1:35 AM EDT [facility] Bordetella pertussis pcr Not Detected Not Detected [facility] 10/01/2025 1:35 AM EDT [facility] Bordetella parapertussis PCR Not Detected Not Detected [facility] 10/01/2025 1:35 AM EDT [facility] Chlamydophila pneumoniae PCR Not Detected Not Detected [facility] 10/01/2025 1:35 AM EDT [facility] Mycoplasma pneumo by PCR Not Detected Not Detected [facility] 10/01/2025 1:35 AM EDT [facility] Swab Nasopharyngeal structure / Unknown Collection / Unknown 10/01/2025 12:07 AM EDT 10/01/2025 12:35 AM EDT [facility] - 10/01/2025 1:35 AM EDT In the setting of a positive respiratory panel with a viral infection PLUS a negative procalcitonin without other underlying concern for bacterial infection, consider observing off antibiotics or discontinuation of antibiotics and continue supportive care. If the respiratory panel is positive for atypical bacterial infection (Bordetella pertussis, Chlamydophila pneumoniae, or Mycoplasma pneumoniae), consider antibiotic de-escalation to target atypical bacterial infection. Orlando Anthony MD MICROBIOLOGY - GENERAL ORDERA BLES Final Result [facility]
[address] [place] [address], * High Sensitivity Troponin T 1Hr (09/30/2025 11:49 PM EDT) HS Troponin T 10 <14 ng/L 10/01/2025 12:21 AM EDT [facility] Troponin T Numeric Delta 1 Abnormal if >/=3 ng/L 10/01/2025 12:21 AM EDT [facility] Blood Port / Unknown 09/30/2025 11 :49 PM EDT 10/01/2025 12:01 AM EDT [facility] - 10/01/2025 12:21 AM EDT High Sensitive Troponin T Reference Range: <14.0 ng/L- Negative Female for AMI <22.0 ng/L- Negative Male for AMI >=14 - Abnormal Female indicating possible myocardial injury. >=22 - Abnormal Male indicating possible myocardial injury. Clinicians would have to utilize clinical acumen, EKG, Troponin, and serial changes to determine if it is an Acute Myocardial Infarction or myocardial injury due to an underlying chronic condition. Orlando Anthony MD LAB BLOOD ORDERABLES Final Re sult [facility]
[address] [place] [address], * CT Abdomen Pelvis With Contrast (09/30/2025 11:48 PM EDT) Anatomical Region Laterality Modality Abdomen, Pelvis N/A Computed Tomogra phy 09/30/2025 11:5 4 PM EDT Impressions 09/30/2025 11:57 PM EDT Impression: 1.No acute abdominal or pelvic abnormality. 2.Interval resolution of hepatic steatosis. 3.Colonic diverticulosis. 4.Atherosclerosis. 5.Severe right hip DJD. Electronically Signed: Abraham Stephen MD 09/30/2025 11:57 PM EDT Workstation ID: [id number] Narrative 09/30/2025 11:[address] ABDOMEN PELVIS W CONTRAST Date of Exam: 09/30/2025 10:55 PM EDT Indication: epigastric abd pain. Comparison: 05/05/2023. Technique: Axial CT images were obtained of the abdomen and pelvis following the uneventful intravenous administration of iodinated contrast. Reconstructed coronal and sagittal images were also obtained. Automated exposure control and iterative construction methods were used. Findings: Findings in the chest discussed in a separate report. Interval resolution of previously seen hepatic steatosis. Stable cholecystectomy. The bile ducts, pancreas, spleen, stomach and duodenum appear unremarkable. Adrenal glands are normal. Left kidney is normal. There is a simple cyst at the right kidney measuring 34 mm, unchanged. No hydronephrosis. Urinary bladder is nondistended. Patient is status post hysterectomy. Ovaries are not seen. Appendix is not seen. There is colonic diverticulosis. No small bowel distention. Moderate atherosclerosis. No aneurysm. No ascites, pneumoperitoneum or lymphadenopathy. There is a pain pump in the right flank soft tissues. There is an arthrodesis device at the right SI joint. There is severe productive DJD at the right hip and minimal disease of the left hip. There are moderate spinal degenerative changes. No acute osseous abnormality. Procedure Note Abraham Stephen MD - 10/01/2025 CT ABDOMEN PELVIS W CONTRAST Date of Exam: 09/30/2025 10:55 PM EDT Indication: epigastric abd pain. Comparison: 05/05/2023. Technique: Axial CT images were obtained of the abdomen and pelvisfollowing the uneventful intravenous administration of iodinated contrast.Reconstructed coronal and sagittal images were also obtained. Automatedexposure control and iterative construction methods were used. Findings: Findings in the chest discussed in a separate report. Interval resolutionof previously seen hepatic steatosis. Stable cholecystectomy. The bileducts, pancreas, spleen, stomach and duodenum appear unremarkable. Adrenalglands are normal. Left kidney is normal. There is a simple cyst at the right kidney measuring 34 mm,unchanged. No hydronephrosis. Urinary bladder is nondistended. Patient isstatus post hysterectomy. Ovaries are not seen. Appendix is not seen.There is colonic diverticulosis. No small bowel distention. Moderate atherosclerosis. No aneurysm. No ascites,pneumoperitoneum or lymphadenopathy. There is a pain pump in the right flank soft tissues. There is anarthrodesis device at the right SI joint. There is severe productive DJDat the right hip and minimal disease of the left hip. There are moderatespinal degenerative changes. No acute osseous abnormality. IMPRESSION: Impression: 1.No acute abdominal or pelvic abnormality. 2.Interval resolution of hepatic steatosis. 3.Colonic diverticulosis. 4.Atherosclerosis. 5.Severe right hip DJD. Electronically Signed: Abraham Stephen MD 09/30/2025 11:57 PM EDT Workstation ID: [id number] us Orlando Anthony MD IM CT ORDERABLES Final Resul t * CT Angiogram Chest Pulmonary Embolism (09/30/2025 11:48 PM EDT) Anatomical Region Laterality Modality Chest N/A Computed Tomogra phy 09/30/2025 11:5 2 PM EDT Impressions 09/30/2025 11:54 PM EDT Impression: 1.No evidence of pulmonary embolism. 2.Hypoinflated lungs with interlobular septal thickening and patchy bilateral airspace disease. This could be due to pulmonary edema or multifocal pneumonia. 3.Coronary artery disease. Electronically Signed: Abraham Stephen MD 09/30/2025 11:54 PM EDT Workstation ID: [id number] Sheila 09/30/2025 11:[address] ANGIOGRAM CHEST PULMONARY EMBOLISM Date of Exam: 09/30/2025 10:55 PM EDT Indication: chest pain. Comparison: Chest radiograph 09/30/[address] 04/28/2023. Technique: Axial CT images were obtained of the chest after the uneventful intravenous administration of iodinated contrast utilizing pulmonary embolism protocol. In addition, a 3-D volume rendered image was created for interpretation. Reconstructed coronal and sagittal images were also obtained. Automated exposure control and iterative construction methods were used. Findings: The thyroid, trachea and esophagus appear within normal limits. Heart size is normal. There are coronary stents and coronary artery calcifications. Mild aortic atherosclerosis. There are calcified mediastinal granulomas. There is no evidence of pulmonary embolism. No pericardial effusion or mediastinal lymphadenopathy. The lungs are hypoinflated. There appears to be interlobular septal thickening and patchy bilateral airspace disease along with peribronchial thickening. These findings could be due to pulmonary edema or multifocal pneumonia. Evaluation is somewhat limited due to expiratory phase required for this type of exam. No acute findings in the superficial soft tissues. No acute findings in the upper abdomen. Patient is status post cholecystectomy. No acute osseous abnormality. There are mild thoracic degenerative changes. There are old healed right-sided rib fractures. Procedure Note Abraham Stephen MD - 09/30/2025 CT ANGIOGRAM CHEST PULMONARY EMBOLISM Date of Exam: 09/30/2025 10:55 PM EDT Indication: chest pain. Comparison: Chest radiograph 09/30/[address] 04/28/2023. Technique: Axial CT images were obtained of the chest after the uneventfulintravenous administration of iodinated contrast utilizing pulmonaryembolism protocol. In addition, a 3-D volume rendered image was createdfor interpretation. Reconstructed coronal and sagittal images were also obtained. Automated exposure controland iterative construction methods were used. Findings: The thyroid, trachea and esophagus appear within normal limits. Heart sizeis normal. There are coronary stents and coronary artery calcifications.Mild aortic atherosclerosis. There are calcified mediastinal granulomas.There is no evidence of pulmonary embolism. No pericardial effusion or mediastinal lymphadenopathy. The lungs are hypoinflated. There appears to be interlobular septalthickening and patchy bilateral airspace disease along with peribronchialthickening. These findings could be due to pulmonary edema or multifocalpneumonia. Evaluation is somewhat limited due to expiratory phase required for this type of exam. No acute findings in the superficial soft tissues. No acute findings inthe upper abdomen. Patient is status post cholecystectomy. No acuteosseous abnormality. There are mild thoracic degenerative changes. Thereare old healed right-sided rib fractures. IMPRESSION: Impression: 1.No evidence of pulmonary embolism. 2.Hypoinflated lungs with interlobular septal thickening and patchybilateral airspace disease. This could be due to pulmonary edema ormultifocal pneumonia. 3.Coronary artery disease. Electronically Signed: Abraham Stephen MD 09/30/2025 11:54 PM EDT Workstation ID: [id number] us Orlando Anthony MD IMG CT ORDERABLES Final Resul t * XR Chest 1 View (09/30/2025 10:22 PM EDT) Anatomical Region Laterality Modality Body N/A Radiographic Nancy ging 09/30/2025 10:3 7 PM EDT Impressions 09/30/2025 10:38 PM EDT Impression: 1.Emphysema. No acute cardiopulmonary abnormality. Electronically Signed: Abraham Espinosa MD 09/30/2025 10:38 PM EDT Workstation ID: [id number] Narrative 09/30/2025 10:38 PM EDT XR CHEST 1 VW Date of Exam: 09/30/2025 10:13 PM EDT Indication: epigastric abd pain. Comparison: 05/04/2023 Findings: Right chest wall port distal lead tip overlying the right atrium. Enlarged cardiac silhouette. Low lung volumes. Emphysema. No focal airspace opacity, pleural effusion, or pneumothorax. Healed right rib fractures. No acute bone abnormality. Procedure Note Abraham Espinosa MD - 09/30/2025 XR CHEST 1 VW Date of Exam: 09/30/2025 10:13 PM EDT Indication: epigastric abd pain. Comparison: 05/04/2023 Findings: Right chest wall port distal lead tip overlying the right atrium. Enlargedcardiac silhouette. Low lung volumes. Emphysema. No focal airspaceopacity, pleural effusion, or pneumothorax. Healed right rib fractures. Noacute bone abnormality. IMPRESSION: Impression: 1.Emphysema. No acute cardiopulmonary abnormality. Electronically Signed: Abraham Espinosa MD 09/30/2025 10:38 PM EDT Workstation ID: [id number] Orlando Anthony MD IMG DIAGNOSTIC IMAGING ORDERA BLES Final Result * Telemetry Scan (09/30/2025 10:21 PM EDT) [facility] ORDERABLES Final Result * ECG 12 Lead Chest Pain (09/30/2025 10:15 PM EDT) QT Interval 474 ms ECG QTC Interval 522 ms ECG 09/30/2025 10:1 5 PM EDT 10/05/2025 3:23 AM EST Narrative ECG - 10/05/2025 3:23 AM EST Test Reason : Chest Pain Blood Pressure : */* mmHG Vent. Rate : 73 BPM Atrial Rate : 73 BPM P-R Int : 192 ms QRS Dur : 94 ms QT Int : 474 ms P-R-T Axes : 73 42 60 degrees QTcB Int : 522 ms Sinus rhythm with occasional premature ventricular complexes T wave abnormality, consider anterior ischemia Prolonged QT Abnormal ECG When compared with ECG of 17-Feb-2024 09:47, Sinus rhythm has replaced Atrial flutter ST no longer elevated in Inferior leads T wave inversion now evident in Anterior leads QT has lengthened Confirmed by ORLANDO ANTHONY ([id number]) on 10/05/2025 3:23:50 AM Referred By: OWSALDO JUAREZ Confirmed By: ORLANDO ANTHONY Procedure Note Orlando Anthony MD - 10/05/2025 Test Reason : Chest Pain Blood Pressure : */* mmHG Vent. Rate : 73 BPM Atrial Rate : 73 BPM P-R Int : 192 ms QRS Dur : 94 ms QT Int : 474 ms P-R-T Axes : 73 42 60 degrees QTcB Int : 522 ms Sinus rhythm with occasional premature ventricular complexes T wave abnormality, consider anterior ischemia Prolonged QT Abnormal ECG When compared with ECG of 17-Feb-2024 09:47, Sinus rhythm has replaced Atrial flutter ST no longer elevated in Inferior leads T wave inversion now evident in Anterior leads QT has lengthened Confirmed by ORLANDO ANTHONY ([id number]) on 10/05/2025 3:23:50 AM Referred By: OSWALDO JUAREZ Confirmed By: ORLANDO ANTHONY us Orlando Anthony MD ECG ORDERABLES Final Result ECG * (ABNORMAL) Blood Gas, Venous With Co-Ox (09/30/2025 10:11 PM EDT) Site Nurse/Dr Mcintosh 09/30/2025 10:12 PM EDT [facility] pH, Venous 7.377 7.310 - 7.410 pH Units 09/30/2025 10:12 PM EDT [facility] pCO2, Venous 54.0(H) 41.0 - 51.0 mm Hg 09/30/2025 10:12 PM EDT [facility] Comment:83 Value above refer ence range pO2, Venous 33.4 27.0 - 53.0 mm Hg 09/30/2025 10:12 PM EDT [facility] HCO3, Venous 31.7(H) 22.0 - 28.0 mmol/L 09/30/2025 10:12 PM EDT [facility] Base Excess, Venous 5.1(H) -2.0 - 2.0 mmol/L 09/30/2025 10:12 PM EDT [facility] Hemoglobin, Blood Gas 13.8(L) 14 - 18 g/dL 09/30/2025 10:12 PM EDT [facility] Oxyhemoglobin Venous 57.5 % 09/02 10:12 PM EDT [facility] Methemoglobin Venous 0.5 % 09/02 10:12 PM EDT [facility] Carboxyhemoglobin Venous 6.7 % 09/30/2025 10:12 PM EDT [facility] Comment:83 Value above refer ence range CO2 Content 33.4(H) 22 - 33 mmol/L 09/30/2025 10:12 PM EDT [facility] Temperature 37.0 09/30/2025 10:12 PM EDT [facility] Barometric Pressure for Blood Gas 09/30/2025 10:12 PM EDT [facility] Comment:N/A Modality Nasal Cannula 09/30/2025 10:12 PM EDT [facility] FIO2 40 % 09/30/2025 10:12 PM EDT [facility] Rate 0 Breaths/ minute 09/30/2025 10:12 PM EDT [facility] PIP 0 cmH2O 09/30/2025 10:12 PM EDT [facility] Comment:Meter: [id number] Associate Director Of Nursing: [id number] IPAP 0 cm H2O 09/30/2025 10:12 PM EDT [facility] EPAP 0 cm H2O 09/30/2025 10:12 PM EDT [facility] Venous Blood 09/30/2025 10:1 1 PM EDT 09/30/2025 10:11 PM EDT us Orlando Anthony MD LAB BLOOD ORDERABLES Final Re sult [facility]
[address] * BNP (09/30/2025 10:03 PM EDT) proBNP 300.0 0.0 - 900.0 pg/mL 09/30/2025 11:16 PM EDT [facility] Blood Venipuncture / Unknown 09/30/2025 10:03 PM EDT 09/30/2025 10:17 PM EDT Narrative [facility] - 09/30/2025 11:16 PM EDT This assay is used as an aid in the diagnosis of individuals suspected of having heart failure. It can be used as an aid in the diagnosis of acute decompensated heart failure (ADHF) in patients presenting with signs and symptoms of ADHF to the emergency department (ED). In addition, NT-proBNP of <300 pg/mL indicates ADHF is not likely. Age Range Result Interpretation NT-proBNP Concentration (pg/mL: <50 Positive >450 Juárez 300-450 Negative <300 50-75 Positive >900 Juárez 300-900 Negative <300 >75 Positive >1800 Juárez 300-1800 Negative <300 Orlando Anthony MD LAB BLOOD ORDERABLES Final Re sult Performing Organization Address City/[facility]/ZIP Co de Phone Number [facility]
[address] [place] [address], [place] [phone] * (ABNORMAL) Magnesium (09/30/2025 10:03 PM EDT) [facility] Magnesium 1.3(L) 1.6 - 2.4 mg/dL 09/30/2025 11:16 PM EDT [facility] Blood Venipuncture / Unknown 09/30/2025 10:03 PM EDT 09/30/2025 10:17 PM EDT us Orlando Anthony MD LAB BLOOD ORDERABLES Final Re sult [facility]
[address] [place] [address], [place] [phone] * (ABNORMAL) CBC Auto Differential (09/30/2025 10:03 PM EDT) WBC 11.01(H) 3.40 - 10.80 10*3/mm3 09/30/2025 10:20 PM EDT [facility] RBC 4.35 3.77 - 5.28 10*6/mm3 09/30/2025 10:20 PM EDT [facility] Hemoglobin 13.0 12.0 - 15.9 g/dL 09/30/2025 10:20 PM EDT [facility] Hematocrit 40.5 34.0 - 46.6 % 09/30/2025 10:20 PM EDT [facility] MCV 93.1 79.0 - 97.0 fL 09/30/2025 10:20 PM EDT [facility] MCH 29.9 26.6 - 33.0 pg 09/30/2025 10:20 PM EDT [facility] MCHC 32.1 31.5 - 35.7 g/dL 09/30/2025 10:20 PM EDT [facility] RDW 14.8 12.3 - 15.4 % 09/30/2025 10:20 PM EDT [facility] RDW-SD 51.1 37.0 - 54.0 fl 09/30/2025 10:20 PM EDT [facility] MPV 11.3 6.0 - 12.0 fL 09/30/2025 10:20 PM EDT [facility] Platelets 232 140 - 450 10*3/mm3 09/30/2025 10:20 PM EDT [facility] Neutrophil % 69.3 42.7 - 76.0 % 09/30/2025 10:20 PM EDT [facility] Lymphocyte % 21.9 19.6 - 45.3 % 09/30/2025 10:20 PM EDT [facility] Monocyte % 5.2 5.0 - 12.0 % 09/30/2025 10:20 PM EDT [facility] Eosinophil % 2.7 0.3 - 6.2 % 09/30/2025 10:20 PM EDT [facility] Basophil % 0.5 0.0 - 1.5 % 09/30/2025 10:20 PM EDT [facility] Immature Grans % 0.4 0.0 - 0.5 % 09/30/2025 10:20 PM EDT [facility] Neutrophils, Absolute 7.63(H) 1.70 - 7.00 10*3/mm3 09/30/2025 10:20 PM EDT [facility] Lymphocytes, Absolute 2.41 0.70 - 3.10 10*3/mm3 09/30/2025 10:20 PM EDT [facility] Monocytes, Absolute 0.57 0.10 - 0.90 10*3/mm3 09/30/2025 10:20 PM EDT [facility] Eosinophils, Absolute 0.30 0.00 - 0.40 10*3/mm3 09/30/2025 10:20 PM EDT [facility] Basophils, Absolute 0.06 0.00 - 0.20 10*3/mm3 09/30/2025 10:20 PM EDT [facility] Immature Grans, Absolute 0.04 0.00 - 0.05 10*3/mm3 09/30/2025 10:20 PM EDT [facility] nRBC 0.0 0.0 - 0.2 /100 WBC 09/30/2025 10:20 PM EDT [facility] Blood Venipuncture / Unknown 09/30/2025 10:03 PM EDT 09/30/2025 10:17 PM EDT us Orlando Anthony MD LAB BLOOD ORDERABLES Final Re sult [facility]
[address] [place] [address], * High Sensitivity Troponin T (09/30/2025 10:03 PM EDT) HS Troponin T 9 <14 ng/L 09/30/2025 10:42 PM EDT [facility] Blood Venipuncture / Unknown 09/30/2025 10:03 PM EDT 09/30/2025 10:17 PM EDT Narrative [facility] - 09/30/2025 10:42 PM EDT High Sensitive Troponin T Reference Range: <14.0 ng/L- Negative Female for AMI <22.0 ng/L- Negative Male for AMI >=14 - Abnormal Female indicating possible myocardial injury. >=22 - Abnormal Male indicating possible myocardial injury. Clinicians would have to utilize clinical acumen, EKG, Troponin, and serial changes to determine if it is an Acute Myocardial Infarction or myocardial injury due to an underlying chronic condition. us Orlando Anthony MD LAB BLOOD ORDERABLES Final Re sult Performing Organization Address [facility] Co de Phone Number [facility]
[address] [place] [address], * (ABNORMAL) Lipase (09/30/2025 10:03 PM EDT) Lipase 73(H) 13 - 60 U/L 09/30/2025 10:42 PM EDT [facility] Blood Venipuncture / Unknown 09/30/2025 10:03 PM EDT 09/30/2025 10:17 PM EDT Orlando Anthony MD LAB BLOOD ORDERABLES Final Re sult Performing Organization Address [facility] Co de Phone Number [facility]
[address] [place] [address], [place] [phone] * (ABNORMAL) Comprehensive Metabolic Panel (09/30/2025 10:03 PM EDT) Glucose 104(H) 65 - 99 mg/dL 09/30/2025 10:42 PM EDT [facility] BUN 18.6 8.0 - 23.0 mg/dL 09/30/2025 10:42 PM EDT [facility] Creatinine 1.29(H) 0.57 - 1.00 mg/dL 09/30/2025 10:42 PM [facility] Sodium 137 136 - 145 mmol/L 09/30/2025 10:42 PM [facility] Potassium 3.2(L) 3.5 - 5.2 mmol/L 09/30/2025 10:42 PM [facility] Chloride 95(L) 98 - 107 mmol/L 09/30/2025 10:42 PM [facility] CO2 28.8 22.0 - 29.0 mmol/L 09/30/2025 10:42 PM [facility] Calcium 8.5(L) 8.6 - 10.5 mg/dL 09/30/2025 10:42 PM [facility] Total Protein 6.9 6.0 - 8.5 g/dL 09/30/2025 10:42 PM [facility] Albumin 3.9 3.5 - 5.2 g/dL 09/30/2025 10:42 PM [facility] ALT (SGPT) 6 1 - 33 U/L 09/30/2025 10:42 PM [facility] AST (SGOT) 15 1 - 32 U/L 09/30/2025 10:42 PM [facility] Alkaline Phosphatase 89 39 - 117 U/L 09/30/2025 10:42 PM [facility] Total Bilirubin 0.5 0.0 - 1.2 mg/dL 09/30/2025 10:42 PM [facility] Globulin 3.0 gm/dL 09/30/2025 10:42 PM [facility] Comment:Calculated Result A/G Ratio 1.3 g/dL 09/30/2025 10:42 PM [facility] BUN/Creatinine Ratio 14.4 7.0 - 25.0 09/30/2025 10:42 PM [facility] Anion Gap 13.2 5.0 - 15.0 mmol/L 09/30/2025 10:42 PM [facility] eGFR 46.2(L) >60.0 mL/min/1.7 3 09/30/2025 10:42 PM EDT [facility] Blood Venipuncture / Unknown 09/30/2025 10:03 PM EDT 09/30/2025 10:17 PM EDT Narrative [facility] - 09/30/2025 10:42 PM EDT GFR Categories in Chronic Kidney Disease (CKD) GFR Category GFR (mL/min/1.73) Interpretation G1 90 or greater Normal or high (1) G2 60-89 Mild decrease (1) G3a 45-59 Mild to moderate decrease G3b 30-44 Moderate to severe decrease G4 15-29 Severe decrease G5 14 or less Kidney failure (1)In the absence of evidence of kidney disease, neither GFR category G1 or G2 fulfill the criteria for CKD. eGFR calculation 2020 CKD-EPI creatinine equation, which does not include race as a factor us Orlando Anthony MD LAB BLOOD ORDERABLES Final Re sult [facility]
[address] [place] [address], [place] [phone] documented in this encounter Visit Diagnoses Diagnosis COPD exacerbation- Primary Obstructive chronic bronchitis with exacerbation Pneumonia of both lower lobes due to infectious organism Acute on chronic hypoxic respiratory failure Epigastric abdominal pain Abdominal pain, epigastric Dysphagia, unspecified type Acute on chronic respiratory failure with hypoxemia Chronic obstructive pulmonary disease with acute exacerbation Esophageal dysphagia Dysphagia, pharyngoesophageal phase Essential hypertension Unspecified essential hypertension Morbidly obese Morbid obesity Paroxysmal atrial fibrillation Atrial fibrillation Atrial fibrillation with rapid ventricular response 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 Respiratory failure Acute respiratory failure documented in this encounter Admitting Diagnoses Diagnosis COPD exacerbation Obstructive chronic bronchitis with exacerbation Respiratory failure Acute respiratory failure documented in this encounter Administered Medications Inactive Administered Medications - up to 3 most recent administrations Medication Order MAR Action Action Date Dose Rate Site acetaminophen (TYLENOL) 160 MG/5ML oral solution 650 mg 650 mg, Oral, Every 4 Hours PRN, Mild Pain, Starting on 10/01/25 at 0300, If given for fever, use fever parameter: fever greater than 100.4 F Based on patient request - if ordered for moderate or severe pain, provider allows for administration of a medication prescribed for a lower pain scale. Do not exceed 4 grams of acetaminophen in a 24 hr period. Max dose of 2gm for AST/ALT greater than 120 units/L. If given for pain, use the following pain scale: Mild Pain = Pain Score of 1-3, CPOT 1-2 Moderate Pain = Pain Score of 4-6, CPOT 3-4 Severe Pain = Pain Score of 7-10, CPOT 5-8 acetaminophen (TYLENOL) suppository 650 mg 650 mg, Rectal, Every 4 Hours PRN, Mild Pain, Starting on 10/01/25 at 0300, If given for fever, use fever parameter: fever greater than 100.4 F Based on patient request - if ordered for moderate or severe pain, provider allows for administration of a medication prescribed for a lower pain scale. Do not exceed 4 grams of acetaminophen in a 24 hr period. Max dose of 2gm for AST/ALT greater than 120 units/L. If given for pain, use the following pain scale: Mild Pain = Pain Score of 1-3, CPOT 1-2 Moderate Pain = Pain Score of 4-6, CPOT 3-4 Severe Pain = Pain Score of 7-10, CPOT 5-8 acetaminophen (TYLENOL) tablet 650 mg 650 mg, Oral, Every 4 Hours PRN, Mild Pain, Starting on 10/01/25 at 0300, If given for fever, use fever parameter: fever greater than 100.4 F Based on patient request - if ordered for moderate or severe pain, provider allows for administration of a medication prescribed for a lower pain scale. Do not exceed 4 grams of acetaminophen in a 24 hr period. Max dose of 2gm for AST/ALT greater than 120 units/L. If given for pain, use the following pain scale: Mild Pain = Pain Score of 1-3, CPOT 1-2 Moderate Pain = Pain Score of 4-6, CPOT 3-4 Severe Pain = Pain Score of 7-10, CPOT 5-8 Given 10/01/2025 9:18 PM EDT 650 mg ALPRAZolam (XANAX) tablet 0.5 mg 0.5 mg, Oral, 2 Times Daily PRN, Anxiety, Starting on 10/01/25 at 0300, (TREVOR) Caution: Look alike/sound alike drug alert. Avoid grapefruit juice Given 10/05/2025 12:15 PM EST 0.5 mg Given 10/04/2025 10:04 PM EST 0.5 mg Given 10/04/2025 3:33 AM EST 0.5 mg aspirin EC tablet 81 mg 81 mg, Oral, Daily, First dose on 10/01/25 at 1230, Do not crush or chew the capsules or tablets. The drug may not work as designed if the capsule or tablet is crushed or chewed. Swallow whole. Do not exceed 4 grams of aspirin in a 24 hr period. If given for pain, use the following pain scale: Mild Pain = Pain Score of 1-3, CPOT 1-2 Moderate Pain = Pain Score of 4-6, CPOT 3-4 Severe Pain = Pain Score of 7-10, CPOT 5-8 Given 10/05/2025 8:36 AM EST 81 mg Given 10/04/2025 9:05 AM EST 81 mg Given 10/03/2025 8:05 AM EST 81 mg atorvastatin (LIPITOR) tablet 40 mg 40 mg, Oral, Nightly, First dose on 10/01/25 at 2100, Avoid grapefruit juice. Given 10/04/2025 9:52 PM EST 40 mg Given 10/03/2025 9:09 PM EST 40 mg Given 10/02/2025 8:05 PM EST 40 mg barium sulfate (VARIBAR PUDDING) oral paste 20 mL 20 mL, Oral, Once in Imaging, On 10/03/25 at 1130, For 1 dose, ([facility]) Shake well before administration. Given 10/03/2025 10:43 AM EST 20 mL barium sulfate (VARIBAR THIN LIQUID) oral suspension 100 mL 100 mL, Oral, Once in Imaging, On 10/03/25 at 1130, For 1 dose, ([facility]) Shake well before administration. Given 10/03/2025 10:43 AM EST 100 mL bisacodyl (DULCOLAX) EC tablet 5 mg 5 mg, Oral, Daily PRN, Constipation, Use if polyethylene glycol is ineffective, Starting on 10/01/25 at 0300, Use if no bowel movement after 12 hours. Swallow whole. Do not crush, split, or chew tablet. bisacodyl (DULCOLAX) suppository 10 mg 10 mg, Rectal, Daily PRN, Constipation, Use if bisacodyl oral is ineffective, Starting on 10/01/25 at 0300, Use if no bowel movement after 12 hours. Hold for diarrhea budesonide-formoterol (SYMBICORT) 160-4.5 MCG/ACT inhaler 2 puff 2 puff, Inhalation, 2 Times Daily - RT, First dose on 10/01/25 at 0930, Include Respiratory Treatment Education (SP) Shake well. Rinse mouth after use, do not swallow water. Send aerosols to pharmacy in ziplock bag for proper disposal. Given 10/05/2025 8:38 AM EST 2 puffs Given 10/04/2025 7:50 PM EST 2 puffs Given 10/04/2025 8:43 AM EST 2 puffs cefTRIAXone (ROCEPHIN) 2,000 mg in sodium chloride 0.9 % 100 mL MBP 2,000 mg, Intravenous, at 200 mL/hr, Administer over 30 Minutes, Once, On 10/01/25 at 0019, For 1 dose, LR should be paused and flushing of the line with NS is recommended prior to and after completion of ceftriaxone infusion due to incompatibility. Do not co-adminster with calcium-containing solutions. Caution: Look alike/sound alike drug alert, Indications: PneumoniaIndications:Pneumonia New 10/01/2025 12:19 AM EDT 2,000 mg 200 mL/hr cefTRIAXone (ROCEPHIN) 2,000 mg in sodium chloride 0.9 % 100 mL MBP 2,000 mg, Intravenous, at 200 mL/hr, Administer over 30 Minutes, Every 24 Hours Scheduled, First dose on 10/01/25 at 2200, For 4 days, LR should be paused and flushing of the line with NS is recommended prior to and after completion of ceftriaxone infusion due to incompatibility. Do not co-adminster with calcium-containing solutions. Caution: Look alike/sound alike drug alert, Indications: PneumoniaIndications:Pneumonia New Bag 10/04/2025 9:52 PM EST 2,000 mg 200 mL/hr New Bag 10/03/2025 9:09 PM EST 2,000 mg 200 mL/hr New Bag 10/02/2025 8:06 PM EST 2,000 mg 200 mL/hr dexAMETHasone (DECADRON) injection 10 mg 10 mg, Intravenous, Once, On 10/01/25 at 0141, For 1 dose, If giving IV, may be pushed over a minimum of 1 minute. Given 10/01/2025 2:10 AM EDT 10 mg doxycycline (MONODOX) capsule 100 mg 100 mg, Oral, Every 12 Hours Scheduled, First dose on 10/01/25 at 1700, For 3 days, Take with food if GI upset occurs. Administer 2 hours before or 4 hours after administration of oral polyvalent cations (calcium, zinc, magnesium, iron), Indications: PneumoniaIndications:Pneumonia Given 10/04/2025 9:05 AM EST 100 mg Given 10/03/2025 9:09 PM EST 100 mg Given 10/03/2025 8:04 AM EST 100 mg doxycycline (VIBRAMYCIN) 100 mg in sodium chloride 0.9 % 100 mL MBP 100 mg, Intravenous, Administer over 60 Minutes, Once, On 10/01/25 at 0019, For 1 dose, Protect from light., Indications: PneumoniaIndications:Pneumonia New Bag 10/01/2025 1:17 AM EDT 100 mg DULoxetine (CYMBALTA) DR capsule 60 mg 60 mg, Oral, Every 12 Hours Scheduled, First dose on 10/01/25 at 0900, Do not crush or chew the capsules or tablets. The drug may not work as designed if the capsule or tablet is crushed or chewed. Swallow whole. Caution: Look alike/sound alike drug alert. Capsule may be opened and sprinkled on applesauce or apple juice. Do not crush or chew capsule. Given 10/05/2025 8:36 AM EST 60 mg Given 10/04/2025 9:51 PM EST 60 mg Given 10/04/2025 9:05 AM EST 60 mg furosemide (LASIX) tablet 20 mg 20 mg, Oral, Daily, First dose on 10/02/25 at 1145, On hold since Fri10/04/2025 at 1546 until manually unheld Given 10/04/2025 9:04 AM EST 20 mg Given 10/03/2025 11:52 AM EST 20 mg gabapentin (NEURONTIN) capsule 600 mg 600 mg, Oral, Every 12 Hours Scheduled, First dose (after last modification) on 10/02/25 at 1200, (TREVOR) Given 10/05/2025 8:36 AM EST 600 mg Given 10/04/2025 9:49 PM EST 600 mg Given 10/04/2025 9:02 AM EST 600 mg guaiFENesin (MUCINEX) 12 hr tablet 1,200 mg 1,200 mg, Oral, Every 12 Hours Scheduled, First dose on 10/01/25 at 0900, Caution: Look alike/sound alike drug alert Do not crush, split, or chew. Given 10/05/2025 8:36 AM EST 1,200 mg Given 10/04/2025 9:49 PM EST 1,200 mg Given 10/04/2025 9:03 AM EST 1,200 mg heparin (porcine) injection 4,000 Units 4,000 Units, Intravenous, Once, On 10/02/25 at 0600, For 1 dose, Indications: Heparin BolusIndications:Hepar in Bolus Given 10/02/2025 5:25 AM EST 4,000 Units heparin 64452 units/250 mL (100 units/mL) in 0.45 % NaCl infusion 14 Units/kg/hr 92.7 kg (12.978 mL/hr, rounded to 12.97 mL/hr), Intravenous, Titrated, Starting on 10/01/25 at 2045, Pharmacy dosing - Cardiac or Other NOT VTE - Boluses (No initial bolus), Indications: Cardiac or other NOT VTEIndications:Cardiac or other NOT VTE Rate Change (DUAL SIGN) 10/02/2025 5:30 AM EST 14 Units/kg/hr 12.97 mL/hr New Bag 10/01/2025 9:01 PM EDT 11 Units/kg/hr 10.19 mL/ hr heparin injection 500 Units 500 Units (5 mL), Intravenous, As Needed, Line Care, Prior to De-Accessing Port, Starting on Fri10/05/25 at 1220 Given 10/05/2025 2:54 PM EST 500 Units HYDROmorphone (DILAUDID) injection 0.25 mg 0.25 mg, Intravenous, Every 4 Hours PRN, Severe Pain, Starting on 10/01/25 at 0808, For 4 days 2 hours, Based on patient request - if ordered for moderate or severe pain, provider allows for administration of a medication prescribed for a lower pain scale. If given for pain, use the following pain scale: Mild Pain = Pain Score of 1-3, CPOT 1-2 Moderate Pain = Pain Score of 4-6, CPOT 3-4 Severe Pain = Pain Score of 7-10, CPOT 5-8 Given 10/05/2025 9:12 AM EST 0.25 mg Given 10/05/2025 5:23 AM EST 0.25 mg Given 10/05/2025 12:52 AM EST 0.25 mg HYDROmorphone (DILAUDID) injection 0.25 mg 0.25 mg, Intravenous, Every 8 Hours PRN, Severe Pain, Starting on Fri10/05/25 at 0940, Based on patient request - if ordered for moderate or severe pain, provider allows for administration of a medication prescribed for a lower pain scale. If given for pain, use the following pain scale: Mild Pain = Pain Score of 1-3, CPOT 1-2 Moderate Pain = Pain Score of 4-6, CPOT 3-4 Severe Pain = Pain Score of 7-10, CPOT 5-8, On hold since Fri10/05/2025 at 1333 until manually unheld HYDROmorphone (DILAUDID) injection 0.5 mg 0.5 mg, Intravenous, Once, On Fri09/30/25 at 2210, For 1 dose, Based on patient request - if ordered for moderate or severe pain, provider allows for administration of a medication prescribed for a lower pain scale. If given for pain, use the following pain scale: Mild Pain = Pain Score of 1-3, CPOT 1-2 Moderate Pain = Pain Score of 4-6, CPOT 3-4 Severe Pain = Pain Score of 7-10, CPOT 5-8 Given 09/30/2025 10:04 PM EDT 0.5 mg HYDROmorphone (DILAUDID) injection 0.5 mg 0.5 mg, Intravenous, Once, On Fri09/30/25 at 2305, For 1 dose, Based on patient request - if ordered for moderate or severe pain, provider allows for administration of a medication prescribed for a lower pain scale. If given for pain, use the following pain scale: Mild Pain = Pain Score of 1-3, CPOT 1-2 Moderate Pain = Pain Score of 4-6, CPOT 3-4 Severe Pain = Pain Score of 7-10, CPOT 5-8 Given 09/30/2025 11:21 PM EDT 0.5 mg influenza vac split high-dose (FLUZONE HIGH DOSE) injection 0.5 mL 0.5 mL, Intramuscular, During Hospitalization, Immunization, Starting on Fri10/05/25 at 1400, For 1 dose, Do Not Administer if Temperature Greater Than 102F & Notify Pharmacy Pneumococcal & Influenza Vaccines May Be Given At The Same Time in SEPARATE Injections. Do not administer if temperature greater than 102F & notify pharmacy. Pneumococcal and influenza vaccines may be given at the same time in SEPARATE injections. Given 10/05/2025 2:09 PM EST 0.5 mL Left Deltoid Insulin Lispro (humaLOG) injection 2-7 Units 2-7 Units, Subcutaneous, 4 Times Daily Before Meals & Nightly, First dose on Fri10/01/25 at 2100, Correction Insulin - Low Dose - Total Insulin Dose Less Than 40 units/day (Lean, Elderly or Renal Patients) Blood Glucose 150-199 mg/dL - 2 units Blood Glucose 200-249 mg/dL - 3 units Blood Glucose 250-299 mg/dL - 4 units Blood Glucose 300-349 mg/dL - 5 units Blood Glucose 350-400 mg/dL - 6 units Blood Glucose Greater Than 400 mg/dL - 7 units & Call Provider ([facility]) Caution: Look alike/sound alike drug alert([facility]) Given 10/04/2025 5:06 PM EST 2 Units Left Lower Abdomen Given 10/04/2025 9:02 AM EST 2 Units Le ft Lower Abdomen Given 10/02/2025 6:08 PM EST 2 Units Le ft Arm iopamidol (ISOVUE-370) 76 % injection 100 mL 100 mL, Intravenous, Once in Imaging, On Fri09/30/25 at 2325, For 1 dose Given 09/30/2025 11:09 PM EDT 100 mL ipratropium-albuterol (DUO-NEB) nebulizer solution 3 mL 3 mL, Nebulization, 4 Times Daily - RT, First dose on 10/01/25 at 0830, Include Respiratory Treatment Education Given 10/05/2025 3:39 PM EST 3 mL Given 10/05/2025 8:40 AM EST 3 mL Given 10/04/2025 7:50 PM EST 3 mL ipratropium-albuterol (DUO-NEB) nebulizer solution 6 mL 6 mL, Nebulization, Once, On Fri09/30/25 at 2211, For 1 dose, Include Respiratory Treatment Education Given 09/30/2025 10:07 PM EDT 6 mL lactated ringers infusion 75 mL/hr, Intravenous, Continuous, Starting on Fri10/01/25 at 0322, For 10 hours New Bag 10/01/2025 5:38 AM EDT 75 mL/hr 7 5 mL/hr lactated ringers infusion 75 mL/hr, Intravenous, Continuous, Starting on Fri10/01/25 at 1230, For 10 hours New Bag 10/01/2025 12:01 PM EDT 75 mL/hr 75 mL/hr lactated ringers infusion 50 mL/hr, Intravenous, Continuous, Starting on Fri10/04/25 at 1645, For 10 hours New Bag 10/04/2025 5:05 PM EST 50 mL/hr 5 0 mL/hr levothyroxine (SYNTHROID, LEVOTHROID) tablet 100 mcg 100 mcg, Oral, Every [employer], First dose on Fri10/01/25 at 0600, Take on empty stomach. Given 10/05/2025 5:23 AM EST 100 mcg Given 10/04/2025 5:46 AM EST 100 mcg Given 10/03/2025 6:44 AM EST 100 mcg lisinopril (PRINIVIL,ZESTRIL) tablet 5 mg 5 mg, Oral, Daily, First dose on Fri10/01/25 at 0900, Hold for SBP less than 100, DBP less than 60., On hold since Fri10/04/2025 at 1546 until manually unheld Given 10/04/2025 9:05 AM EST 5 mg Given 10/03/2025 11:52 AM EST 5 mg magnesium oxide (MAG-OX) tablet 400 mg 400 mg, Oral, 2 Times Daily, First dose on Fri10/02/25 at 1200, Each 400mg of magnesium oxide is equal to 241.3mg of elemental magnesium. Given 10/05/2025 8:36 AM EST 400 mg Given 10/04/2025 9:52 PM EST 400 mg Given 10/04/2025 9:03 AM EST 400 mg magnesium sulfate 2g/50 mL (PREMIX) infusion 2 g, Intravenous, Administer over 30 Minutes, Once, On Fri09/30/25 at 2229, For 1 dose New Bag 09/30/2025 10:48 PM EDT 2 g magnesium sulfate 2g/50 mL (PREMIX) infusion 2 g, Intravenous, Administer over 2 Hours, Every 2 Hours, First dose on 10/01/25 at 0551, For 3 doses New Bag 10/01/2025 8:43 AM EDT 2 g New Bag 10/01/2025 5:47 AM EDT 2 g methylPREDNISolone sodium succinate (SOLU-Medrol) injection 40 mg 40 mg, Intravenous, Every 24 Hours, First dose on 10/01/25 at 0915, Caution: Look alike/sound alike drug alert Given 10/03/2025 8:03 AM EST 40 mg Given 10/02/2025 9:08 AM EST 40 mg Given 10/01/2025 8:43 AM EDT 40 mg metoprolol succinate XL (TOPROL-XL) 24 hr tablet 12.5 mg 12.5 mg, Oral, Daily, First dose on 10/01/25 at 0900, Hold for SBP less than 100, DBP less than 60, or heart rate less than 50 Do not crush or chew the capsules or tablets. The drug may not work as designed if the capsule or tablet is crushed or chewed. Swallow whole. Do not crush or chew. Given 10/05/2025 8:36 AM EST 12.5 mg Given 10/04/2025 9:03 AM EST 12.5 mg Given 10/03/2025 8:05 AM EST 12.5 mg naloxone (NARCAN) injection 0.4 mg 0.4 mg, Intravenous, Every 5 Minutes PRN, Opioid Reversal, Respiratory Depression, Starting on 10/01/25 at 0808 nicotine (NICODERM CQ) 14 MG/24HR patch 1 patch 1 patch, Transdermal, Administer over 24 Hours, Every 24 Hours Scheduled, First dose on 10/01/25 at 0900, Apply to clean, dry, nonhairy area of skin (typically upper arm or shoulder) Dispose of nicotine replacement therapies and their wrappers in non-hazardous pharmaceutical waste or in regular trash. Medication Applied 10/01/2025 8:43 AM EDT 1 patch Left Arm ondansetron (ZOFRAN) injection 4 mg 4 mg, Intravenous, Once, On Fri09/30/25 at 2210, For 1 dose, If multiple N/V medications ordered, use in the following order: Ondansetron, Prochlorperazine, Promethazine. Use PO unless patient refuses or patient unable to swallow. Given 09/30/2025 10:04 PM EDT 4 mg oxyCODONE (ROXICODONE) immediate release tablet 5 mg 5 mg, Oral, Every 6 Hours PRN, Moderate Pain, Starting on Fri10/02/25 at 1100, For 7 days, Based on patient request - if ordered for moderate or severe pain, provider allows for administration of a medication prescribed for a lower pain scale. (TREVOR) If given for pain, use the following pain scale: Mild Pain = Pain Score of 1-3, CPOT 1-2 Moderate Pain = Pain Score of 4-6, CPOT 3-4 Severe Pain = Pain Score of 7-10, CPOT 5-8 Given 10/04/2025 1:29 PM EST 5 mg Given 10/04/2025 6:22 AM EST 5 mg Given 10/03/2025 11:18 PM EST 5 mg oxyCODONE (ROXICODONE) immediate release tablet 7.5 mg 7.5 mg, Oral, Every 8 Hours PRN, Moderate Pain, Starting on Fri10/04/25 at 1546, For 2 days, Based on patient request - if ordered for moderate or severe pain, provider allows for administration of a medication prescribed for a lower pain scale. (TREVOR) If given for pain, use the following pain scale: Mild Pain = Pain Score of 1-3, CPOT 1-2 Moderate Pain = Pain Score of 4-6, CPOT 3-4 Severe Pain = Pain Score of 7-10, CPOT 5-8 Given 10/05/2025 4:51 PM EST 7.5 mg Given 10/05/2025 10:46 AM EST 7.5 mg Given 10/04/2025 10:04 PM EST 7.5 mg oxyCODONE (ROXICODONE) immediate release tablet 7.5 mg 7.5 mg, Oral, Every 6 Hours PRN, Moderate Pain, Starting on Fri10/05/25 at 2300, Based on patient request - if ordered for moderate or severe pain, provider allows for administration of a medication prescribed for a lower pain scale. (TREVOR) If given for pain, use the following pain scale: Mild Pain = Pain Score of 1-3, CPOT 1-2 Moderate Pain = Pain Score of 4-6, CPOT 3-4 Severe Pain = Pain Score of 7-10, CPOT 5-8 pancrelipase (Flw-Hnhg-Sjqr) (CREON) capsule 12,000 units of lipase 12,000 units of lipase, Oral, 3 Times Daily With Meals, First dose on 10/01/25 at 1800, Give with meals. Swallow whole. Do not crush or chew capsule. For tube administration: may open capsules and add to juice. Given 10/05/2025 4:51 PM EST 12,000 units of lipase Given 10/05/2025 12:10 PM EST 12,000 units of lipase Given 10/05/2025 8:36 AM EST 12,000 units of lipase pantoprazole (PROTONIX) injection 40 mg 40 mg, Intravenous, Every 12 Hours Scheduled, First dose on 10/01/25 at 1100, Dilute with 10 mL of 0.9% NaCl and give IV push over 2 minutes., Indications: GI BleedIndications:GI Bleed Given 10/05/2025 8:36 AM EST 40 mg Given 10/04/2025 9:52 PM EST 40 mg Given 10/04/2025 9:06 AM EST 40 mg pantoprazole (PROTONIX) injection 80 mg 80 mg, Intravenous, Once, On 10/01/25 at 0316, For 1 dose, Dilute with 10 mL of 0.9% NaCl and give IV push over 2 minutes., Indications: GI BleedIndications:GI Bleed Given 10/01/2025 6:04 AM EDT 80 mg polyethylene glycol (MIRALAX) packet 17 g 17 g, Oral, Daily PRN, Constipation, Use if senna-docusate is ineffective, Starting on 10/01/25 at 0300, Use if no bowel movement after 12 hours. Mix in 6-8 ounces of water. Use 4-8 ounces of water, tea, or juice for each 17 gram dose. potassium chloride 10 mEq in 100 mL IVPB 10 mEq, Intravenous, at 100 mL/hr, Administer over 60 Minutes, Every 1 Hour, First dose on 10/01/25 at 0551, For 4 doses, OUTPATIENT/NON-MONITORED UNITS: Potassium Chloride standard bolus infusion rate is a maximum of 10 mEq/hr on unmonitored patients MONITORED UNITS: Potassium Chloride standard bolus infusion rate is a maximum of 20 mEq/hr on ECG monitored patients ONLY New Bag 10/01/2025 10:38 AM EDT 10 mEq 10 0 mL/hr New Bag 10/01/2025 8:43 AM EDT 10 mEq 100 mL/hr New Bag 10/01/2025 7:36 AM EDT 10 mEq 100 mL/hr predniSONE (DELTASONE) tablet 20 mg 20 mg, Oral, Daily With Breakfast, First dose (after last reorder) on Fri10/05/25 at 0800, For 2 doses, Take with food. Given 10/05/2025 8:36 AM EST 20 mg predniSONE (DELTASONE) tablet 40 mg 40 mg, Oral, Daily With Breakfast, First dose on 10/01/25 at 0800, For 4 doses, Take with food. Given 10/04/2025 9:03 AM EST 40 mg QUEtiapine (SEROquel) tablet 50 mg 50 mg, Oral, Nightly, First dose on 10/02/25 at 2100, Caution: Look alike/sound alike drug alert Given 10/04/2025 9:51 PM EST 50 mg Given 10/03/2025 9:24 PM EST 50 mg Given 10/02/2025 8:06 PM EST 50 mg ranolazine (RANEXA) 12 hr tablet 500 mg 500 mg, Oral, 2 Times Daily, First dose on 10/02/25 at 1200, Do not crush or chew the capsules or tablets. The drug may not work as designed if the capsule or tablet is crushed or chewed. Swallow whole. Swallow whole; do not crush, split, or chew. Given 10/05/2025 8:36 AM EST 500 mg Given 10/04/2025 9:49 PM EST 500 mg Given 10/04/2025 9:05 AM EST 500 mg rivaroxaban (XARELTO) tablet 20 mg 20 mg, Oral, Daily With Dinner, First dose on 10/01/25 at 1800, If giving by tube: suspend in 50mL water, administer, and immediately follow with enteral feeding. Administer doses 15mg or greater with food; doses of 2.5mg and 10mg may be administered without regard to meals., Indications: Atrial Fibrillation - requiring full anticoagulationIndications:Atrial Fibrillation - requiring full anticoagulation Given 10/05/2025 4:51 PM EST 20 mg Given 10/04/2025 5:06 PM EST 20 mg Given 10/03/2025 5:12 PM EST 20 mg sennosides-docusate (PERICOLACE) 8.6-50 MG per tablet 2 tablet 2 tablet, Oral, 2 Times Daily PRN, Constipation, Starting on Fri10/01/25 at 0300, Start bowel management regimen if patient has not had a bowel movement after 12 hours. sodium chloride 0.9 % bolus 500 mL 500 mL, Intravenous, at 1,000 mL/hr, Administer over 0.5 Hours, Once, On Fri09/30/25 at 2210, For 1 dose New Bag 09/30/2025 10:04 PM EDT 500 mL 1000 mL/hr sodium chloride 0.9 % flush 10 mL 10 mL, Intravenous, Every 12 Hours Scheduled, First dose on Fri10/01/25 at 0900 Given 10/05/2025 8:39 AM EST 10 mL Given 10/04/2025 9:55 PM EST 10 mL Given 10/04/2025 11:13 AM EST 10 mL sodium zirconium cyclosilicate (LOKELMA) packet 10 g 10 g, Oral, Once, On Fri10/05/25 at 1845, For 1 dose, Empty entire contents of the packet(s) into a glass with at least 3 tablespoons (45 mL) of water. Stir well and drink immediately; if powder remains in the glass, add water, stir and drink immediately; repeat until no powder remains. Administer other oral medications at least 2 hours before or 2 hours after dose. thiamine (B-1) injection 200 mg 200 mg, Intravenous, Daily, First dose on 10/01/25 at 0900, Doses of up to 250mg, give over 1-2 minutes (IV push). Doses 250mg and above, give over 30 minutes. Given 10/05/2025 8:36 AM EST 200 mg Given 10/04/2025 9:06 AM EST 200 mg Given 10/03/2025 8:03 AM EST 200 mg traZODone (DESYREL) tablet 100 mg 100 mg, Oral, Nightly, First dose on 10/01/25 at 2100, Take with food. Caution: Look alike/sound alike drug alert Given 10/04/2025 9:51 PM EST 100 mg Given 10/03/2025 9:24 PM EST 100 mg Given 10/02/2025 8:05 PM EST 100 mg verapamil SR (CALAN-SR) CR tablet 120 mg 120 mg, Oral, 2 Times Daily, First dose on 10/02/25 at 1200, Hold for SBP less than 100, DBP less than 60, or heart rate less than 50. If a dose is held, please contact the provider. Do not crush, split, or chew. Avoid grapefruit juice. Given 10/04/2025 9:50 PM EST 120 mg Given 10/04/2025 9:03 AM EST 120 mg Given 10/03/2025 9:09 PM EST 120 mg documented in this encounter Active and Recently Administered Medications Times are shown in EST. Scheduled Medication Order 10/03/2025 10/04/2025 10/05/2025 aspirin EC tablet 81 mg 81 mg, Oral, Daily, First dose on 10/01/25 at 1230, Do not crush or chew the capsules or tablets. The drug may not work as designed if the capsule or tablet is crushed or chewed. Swallow whole. Do not exceed 4 grams of aspirin in a 24 hr period. If given for pain, use the following pain scale: Mild Pain = Pain Score of 1-3, CPOT 1-2 Moderate Pain = Pain Score of 4-6, CPOT 3-4 Severe Pain = Pain Score of 7-10, CPOT 5-8 0805 (Given - Provider: Clotilde Breen, Mat Cleaning Machine Operator) 0905 (Given - Provider: Clotilde Breen, Mat Cleaning Machine Operator) 0836 (Given - Provider: Caitlyn Breen, LAITH) atorvastatin (LIPITOR) tablet 40 mg 40 mg, Oral, Nightly, First dose on 10/01/25 at 2100, Avoid grapefruit juice. 2108 (Given - Provider: No Neal, LAITH) 2151 (Given - Provider: Arvin Edwards, LAITH) barium sulfate (VARIBAR PUDDING) oral paste 20 mL (COMPLETED) 20 mL, Oral, Once in Imaging, On 10/03/25 at 1130, For 1 dose, ([facility]) Shake well before administration. 1043 (Given - Provider: Rozina Rowland) barium sulfate (VARIBAR THIN LIQUID) oral suspension 100 mL (COMPLETED) 100 mL, Oral, Once in Imaging, On 10/03/25 at 1130, For 1 dose, ([facility]) Shake well before administration. 1043 (Given - Provider: Rozina Rowland) budesonide-formoterol (SYMBICORT) 160-4.5 MCG/ACT inhaler 2 puff 2 puff, Inhalation, 2 Times Daily - RT, First dose on 10/01/25 at 0930, Include Respiratory Treatment Education (SP) Shake well. Rinse mouth after use, do not swallow water. Send aerosols to pharmacy in ziplock bag for proper disposal. 0943 (Given - Provider: Yudy Morin, REFRACTORY WORKER)192 (Given - Provider: Vickey Nolan, REFRACTORY WORKER)2129 (Canceled Entry - Provider: Vickey Nolan REFRACTORY WORKER) 0843 (Given - Provider: Yudy Morin, REFRACTORY WORKER)1950 (Given - Provider: Sarah Ny, REFRACTORY WORKER)2129 (Canceled Entry - Provider: Saarh Ny, REFRACTORY WORKER - Comment: previously given) 0838 (Given - Provider: Bashir Martinez, KIRSTIE) cefTRIAXone (ROCEPHIN) 2,000 mg in sodium chloride 0.9 % 100 mL MBP (COMPLETED) 2,000 mg, Intravenous, at 200 mL/hr, Administer over 30 Minutes, Every 24 Hours Scheduled, First dose on 10/01/25 at 2200, For 4 days, LR should be paused and flushing of the line with NS is recommended prior to and after completion of ceftriaxone infusion due to incompatibility. Do not co-adminster with calcium-containing solutions. Caution: Look alike/sound alike drug alert, Indications: Pneumonia 2108 (New Bag - Provider: No Neal RN) 2151 (New Bag - Provider: Arvin Edwards RN) doxycycline (MONODOX) capsule 100 mg (COMPLETED) 100 mg, Oral, Every 12 Hours Scheduled, First dose on 10/01/25 at 1700, For 3 days, Take with food if GI upset occurs. Administer 2 hours before or 4 hours after administration of oral polyvalent cations (calcium, zinc, magnesium, iron), Indications: Pneumonia 08 (Given - Provider: Clotilde Breen, Mat Cleaning Machine Operator)2108 (Given - Provider: No Neal, LAITH) 904 (Given - Provider: Clotilde Breen, Mat Cleaning Machine Operator) DULoxetine (CYMBALTA) DR capsule 60 mg 60 mg, Oral, Every 12 Hours Scheduled, First dose on 10/01/25 at 0900, Do not crush or chew the capsules or tablets. The drug may not work as designed if the capsule or tablet is crushed or chewed. Swallow whole. Caution: Look alike/sound alike drug alert. Capsule may be opened and sprinkled on applesauce or apple juice. Do not crush or chew capsule. 08 (Given - Provider: Clotilde Breen, Mat Cleaning Machine Operator)2108 (Given - Provider: No Neal RN) 09 (Given - Provider: Clotilde Breen, Mat Cleaning Machine Operator)2150 (Given - Provider: Arvin Edwards RN) 0836 (Given - Provider: Caitlyn Breen RN) furosemide (LASIX) tablet 20 mg 20 mg, Oral, Daily, First dose on 10/02/25 at 1145, On hold since Fri10/04/2025 at 1546 until manually unheld 0852 (Unheld by provider - Provider: Sabrina Stephens MD)1152 (Given - Provider: Clotilde Breen, Mat Cleaning Machine Operator) 0904 (Given - Provider: Clotilde Breen, Mat Cleaning Machine Operator)1546 (Held by provider - Provider: Roc Malcolm MD - Reason: Abnormal Vitals) 0900 (Dose Auto Held - Provider: Roc Malcolm MD)2023 (Unheld by provider - Provider: Automatic Discharge Provider) gabapentin (NEURONTIN) capsule 600 mg 600 mg, Oral, Every 12 Hours Scheduled, First dose (after last modification) on 10/02/25 at 1200, ([facility]) 08 (Given - Provider: Clotilde Breen Mat Cleaning Machine Operator)2108 (Given - Provider: No Neal, LAITH) 0902 (Given - Provider: Clotilde Breen, Mat Cleaning Machine Operator)2148 (Given - Provider: Arvin Edwards RN) 0836 (Given - Provider: Caitlyn Breen RN) guaiFENesin (MUCINEX) 12 hr tablet 1,200 mg 1,200 mg, Oral, Every 12 Hours Scheduled, First dose on 10/01/25 at 0900, Caution: Look alike/sound alike drug alert Do not crush, split, or chew. 0804 (Given - Provider: Clotilde Breen, Mat Cleaning Machine Operator)210 (Given - Provider: No Neal RN) 09 (Given - Provider: Clotilde Breen, Mat Cleaning Machine Operator)214 (Given - Provider: Arvin Edwards RN) 0836 (Given - Provider: Caitlyn Breen RN) Insulin Lispro (humaLOG) injection 2-7 Units 2-7 Units, Subcutaneous, 4 Times Daily Before Meals & Nightly, First dose on 10/01/25 at 2100, Correction Insulin - Low Dose - Total Insulin Dose Less Than 40 units/day (Lean, Elderly or Renal Patients) Blood Glucose 150-199 mg/dL - 2 units Blood Glucose 200-249 mg/dL - 3 units Blood Glucose 250-299 mg/dL - 4 units Blood Glucose 300-349 mg/dL - 5 units Blood Glucose 350-400 mg/dL - 6 units Blood Glucose Greater Than 400 mg/dL - 7 units & Call Provider ([facility]) Caution: Look alike/sound alike drug alert([facility]) 0748 (Not Given - Provider: Megan Hahn RN - Reason: Order parameters not met)1139 (Not Given - Provider: Candelario Jordan Student - Reason: Order parameters not met)1639 (Not Given - Provider: Megan Hahn RN - Reason: Order parameters not met)2110 (Not Given - Provider: No Neal RN - Reason: Order parameters not met - Comment: 129) 0902 (Given - Provider: Candelario Jordan Student)1229 (Not Given - Provider: Megan Hahn RN - Reason: Order parameters not met)1706 (Given - Provider: Megan Hahn RN)2154 (Not Given - Provider: Arvin Edwards RN - Reason: Order parameters not met) 0721 (Not Given - Provider: Caitlyn Breen RN - Reason: Order parameters not met)1101 (Not Given - Provider: Caitlyn Breen RN - Reason: Order parameters not met)1633 (Not Given - Provider: Caitlyn Breen RN - Reason: Order parameters not met) ipratropium-albuterol (DUO-NEB) nebulizer solution 3 mL 3 mL, Nebulization, 4 Times Daily - RT, First dose on 10/01/25 at 0830, Include Respiratory Treatment Education 0943 (Given - Provider: Yudy Morin, REFRACTORY WORKER)1310 (Not Given - Provider: Yudy Morin REFRACTORY WORKER - Reason: Patient not available)1610 (Given - Provider: Yudy Morin REFRACTORY WORKER)1926 (Given - Provider: Vickey Nolan REFRACTORY WORKER)2030 (Canceled Entry - Provider: Vickey Nolan REFRACTORY WORKER) 0842 (Given - Provider: Yudy Morin RRT)1324 (Not Given - Provider: Yudy Morin RRT - Reason: Patient/family refused - Comment: pt sweating clammy and sick to stomach rn notified)1504 (Given - Provider: Jose Murray REFRACTORY WORKER)1630 (Canceled Entry - Provider: Jose Murray RRT)1950 (Given - Provider: Sarah Ny RRT) 0840 (Given - Provider: Bashir Martinez RRT)1328 (Not Given - Provider: Bashir Martinez RRT - Reason: Patient/family refused)1539 (Given - Provider: Bashir Martinez RRT) levothyroxine (SYNTHROID, LEVOTHROID) tablet 100 mcg 100 mcg, Oral, Every Energy Crop Farmer, First dose on 10/01/25 at 0600, Take on empty stomach. 0644 (Given - Provider: Harley Anand RN) 0546 (Given - Provider: No Neal, LAITH) 0523 (Given - Provider: Arvin Edwards, LAITH) lisinopril (PRINIVIL,ZESTRIL) tablet 5 mg 5 mg, Oral, Daily, First dose on 10/01/25 at 0900, Hold for SBP less than 100, DBP less than 60., On hold since Fri10/04/2025 at 1546 until manually unheld 0852 (Unheld by provider - Provider: Sabrina Stephens MD)1152 (Given - Provider: Clotilde Breen, Mat Cleaning Machine Operator) 0905 (Given - Provider: Clotilde Breen, Mat Cleaning Machine Operator)1546 (Held by provider - Provider: Roc Malcolm MD - Reason: Abnormal Vitals) 0900 (Dose Auto Held - Provider: Roc Malcolm MD)2023 (Unheld by provider - Provider: Automatic Discharge Provider) magnesium oxide (MAG-OX) tablet 400 mg 400 mg, Oral, 2 Times Daily, First dose on 10/02/25 at 1200, Each 400mg of magnesium oxide is equal to 241.3mg of elemental magnesium. 08 (Given - Provider: Clotilde Breen, Mat Cleaning Machine Operator)2123 (Given - Provider: No Neal, LAITH) 902 (Given - Provider: Clotilde Breen, Mat Cleaning Machine Operator)2151 (Given - Provider: Arvin Edwards, LAITH) 0836 (Given - Provider: Caitlyn Breen, RN) methylPREDNISolone sodium succinate (SOLU-Medrol) injection 40 mg (CANCELED) 40 mg, Intravenous, Every 24 Hours, First dose on 10/01/25 at 0915, Caution: Look alike/sound alike drug alert 0803 (Given - Provider: Clotilde Breen, Mat Cleaning Machine Operator) metoprolol succinate XL (TOPROL-XL) 24 hr tablet 12.5 mg 12.5 mg, Oral, Daily, First dose on 10/01/25 at 0900, Hold for SBP less than 100, DBP less than 60, or heart rate less than 50 Do not crush or chew the capsules or tablets. The drug may not work as designed if the capsule or tablet is crushed or chewed. Swallow whole. Do not crush or chew. 0805 (Given - Provider: Candelario Jordan Student) 09 (Given - Provider: Clotilde Breen, Mat Cleaning Machine Operator) 0836 (Given - Provider: Caitlyn Breen, RN) nicotine (NICODERM CQ) 14 MG/24HR patch 1 patch 1 patch, Transdermal, Administer over 24 Hours, Every 24 Hours Scheduled, First dose on 10/01/25 at 0900, Apply to clean, dry, nonhairy area of skin (typically upper arm or shoulder) Dispose of nicotine replacement therapies and their wrappers in non-hazardous pharmaceutical waste or in regular trash. 0807 (Not Given - Provider: Candelario Jordan - Reason: Patient/family refused) 0906 (Not Given - Provider: Clotilde Breen, Mat Cleaning Machine Operator - Reason: Patient/family refused) 0839 (Not Given - Provider: Caitlyn Breen RN - Reason: Patient/family refused) pancrelipase (Sps-Ntrl-Vube) (CREON) capsule 12,000 units of lipase 12,000 units of lipase, Oral, 3 Times Daily With Meals, First dose on Fri10/01/25 at 1800, Give with meals. Swallow whole. Do not crush or chew capsule. For tube administration: may open capsules and add to juice. 0807 (Given - Provider: Clotilde Breen, Mat Cleaning Machine Operator)1152 (Given - Provider: Clotilde Breen, Mat Cleaning Machine Operator)1712 (Given - Provider: Megan Hahn, LAITH) 0904 (Given - Provider: Clotilde Breen, Mat Cleaning Machine Operator)1218 (Given - Provider: Megan Hahn, RN)1706 (Given - Provider: Megan Hahn, RN) 0836 (Given - Provider: Caitlyn Breen RN)1210 (Given - Provider: Caitlyn Breen RN)1651 (Given - Provider: Caitlyn Breen RN)1704 (Canceled Entry - Provider: Caitlyn Breen, RN) pantoprazole (PROTONIX) injection 40 mg(Linked Group 1) 40 mg, Intravenous, Every 12 Hours Scheduled, First dose on Fri10/01/25 at 1100, Dilute with 10 mL of 0.9% NaCl and give IV push over 2 minutes., Indications: GI Bleed 0803 (Given - Provider: Clotilde Breen, Mat Cleaning Machine Operator)2123 (Given - Provider: No Neal RN) 0906 (Given - Provider: Clotilde Breen, Mat Cleaning Machine Operator)215 (Given - Provider: Arvin Edwards RN) 0836 (Given - Provider: Caitlyn Breen, LAITH) predniSONE (DELTASONE) tablet 20 mg 20 mg, Oral, Daily With Breakfast, First dose (after last reorder) on Fri10/05/25 at 0800, For 2 doses, Take with food. 0836 (Given - Provider: Caitlyn Breen, LAITH) predniSONE (DELTASONE) tablet 40 mg () 40 mg, Oral, Daily With Breakfast, First dose on Fri10/01/25 at 0800, For 4 doses, Take with food. 0800 (Dose Auto Held - Provider: Roc Malcolm MD)0852 (Unheld by provider - Provider: Sabrina Stephens MD) 09 (Given - Provider: Clotilde Breen, Mat Cleaning Machine Operator) QUEtiapine (SEROquel) tablet 50 mg 50 mg, Oral, Nightly, First dose on 10/02/25 at 2100, Caution: Look alike/sound alike drug alert 2123 (Given - Provider: No Neal, LAITH) 2150 (Given - Provider: Arvin Edwards, RN) ranolazine (RANEXA) 12 hr tablet 500 mg 500 mg, Oral, 2 Times Daily, First dose on 10/02/25 at 1200, Do not crush or chew the capsules or tablets. The drug may not work as designed if the capsule or tablet is crushed or chewed. Swallow whole. Swallow whole; do not crush, split, or chew. 08 (Given - Provider: Clotilde Breen, Mat Cleaning Machine Operator)2124 (Given - Provider: No Neal RN) 09 (Given - Provider: Clotilde Breen, Mat Cleaning Machine Operator)214 (Given - Provider: Arvin Edwards, RN) 0836 (Given - Provider: Caitlyn Breen RN) rivaroxaban (XARELTO) tablet 20 mg 20 mg, Oral, Daily With Dinner, First dose on 10/01/25 at 1800, If giving by tube: suspend in 50mL water, administer, and immediately follow with enteral feeding. Administer doses 15mg or greater with food; doses of 2.5mg and 10mg may be administered without regard to meals., Indications: Atrial Fibrillation - requiring full anticoagulation 171 (Given - Provider: Megan Hahn, LAITH) 1706 (Given - Provider: Megan Hahn, RN) 1651 (Given - Provider: Caitlyn Breen, LAITH)1704 (Canceled Entry - Provider: Caitlyn Breen, RN) sodium chloride 0.9 % flush 10 mL 10 mL, Intravenous, Every 12 Hours Scheduled, First dose on 10/01/25 at 0900 0810 (Given - Provider: Clotilde Breen, Mat Cleaning Machine Operator)212 (Given - Provider: No Neal RN) 1113 (Given - Provider: Megan Hahn, LAITH)2154 (Given - Provider: Arvin Edwards, RN) 08 (Given - Provider: Caitlyn Breen, RN) sodium zirconium cyclosilicate (LOKELMA) packet 10 g 10 g, Oral, Once, On Fri10/05/25 at 1845, For 1 dose, Empty entire contents of the packet(s) into a glass with at least 3 tablespoons (45 mL) of water. Stir well and drink immediately; if powder remains in the glass, add water, stir and drink immediately; repeat until no powder remains. Administer other oral medications at least 2 hours before or 2 hours after dose. thiamine (B-1) injection 200 mg 200 mg, Intravenous, Daily, First dose on Fri10/01/25 at 0900, Doses of up to 250mg, give over 1-2 minutes (IV push). Doses 250mg and above, give over 30 minutes. 08 (Given - Provider: Clotilde Breen, Mat Cleaning Machine Operator) 905 (Given - Provider: Clotilde Breen, Mat Cleaning Machine Operator) 0836 (Given - Provider: Caitlyn Breen RN) traZODone (DESYREL) tablet 100 mg 100 mg, Oral, Nightly, First dose on Fri10/01/25 at 2100, Take with food. Caution: Look alike/sound alike drug alert 2123 (Given - Provider: No Neal RN) 2150 (Given - Provider: Arvin Edwards, RN) verapamil SR (CALAN-SR) CR tablet 120 mg 120 mg, Oral, 2 Times Daily, First dose on Fri10/02/25 at 1200, Hold for SBP less than 100, DBP less than 60, or heart rate less than 50. If a dose is held, please contact the provider. Do not crush, split, or chew. Avoid grapefruit juice. 08 (Given - Provider: Clotilde Breen, Mat Cleaning Machine Operator)2108 (Given - Provider: No Neal RN) 09 (Given - Provider: Clotilde Breen, Mat Cleaning Machine Operator)2149 (Given - Provider: Arvin Edwards, RN - Comment: adjusting dose) 0836 (Not Given - Provider: Caitlyn Breen RN - Reason: Order parameters not met) Continuous Medication Order 10/03/2025 10/04/2025 10/05/2025 lactated ringers infusion 50 mL/hr, Intravenous, Continuous, Starting on Tu10/04/25 at 1645, For 10 hours 1705 (New Bag - Provider: Megan Hahn RN) 0242 (Stopped - Provider: Arvin Edwards RN - Comment: [Order ends at this time. Document the following action when infusion is complete: Stopped]) PRN Medication Order 10/03/2025 10/04/2025 10/05/2025 acetaminophen (TYLENOL) 160 MG/5ML oral solution 650 mg(Linked Group 2) 650 mg, Oral, Every 4 Hours PRN, Mild Pain, Starting on 10/01/25 at 0300, If given for fever, use fever parameter: fever greater than 100.4 F Based on patient request - if ordered for moderate or severe pain, provider allows for administration of a medication prescribed for a lower pain scale. Do not exceed 4 grams of acetaminophen in a 24 hr period. Max dose of 2gm for AST/ALT greater than 120 units/L. If given for pain, use the following pain scale: Mild Pain = Pain Score of 1-3, CPOT 1-2 Moderate Pain = Pain Score of 4-6, CPOT 3-4 Severe Pain = Pain Score of 7-10, CPOT 5-8 acetaminophen (TYLENOL) suppository 650 mg(Linked Group 2) 650 mg, Rectal, Every 4 Hours PRN, Mild Pain, Starting on 10/01/25 at 0300, If given for fever, use fever parameter: fever greater than 100.4 F Based on patient request - if ordered for moderate or severe pain, provider allows for administration of a medication prescribed for a lower pain scale. Do not exceed 4 grams of acetaminophen in a 24 hr period. Max dose of 2gm for AST/ALT greater than 120 units/L. If given for pain, use the following pain scale: Mild Pain = Pain Score of 1-3, CPOT 1-2 Moderate Pain = Pain Score of 4-6, CPOT 3-4 Severe Pain = Pain Score of 7-10, CPOT 5-8 acetaminophen (TYLENOL) tablet 650 mg(Linked Group 2) 650 mg, Oral, Every 4 Hours PRN, Mild Pain, Starting on 10/01/25 at 0300, If given for fever, use fever parameter: fever greater than 100.4 F Based on patient request - if ordered for moderate or severe pain, provider allows for administration of a medication prescribed for a lower pain scale. Do not exceed 4 grams of acetaminophen in a 24 hr period. Max dose of 2gm for AST/ALT greater than 120 units/L. If given for pain, use the following pain scale: Mild Pain = Pain Score of 1-3, CPOT 1-2 Moderate Pain = Pain Score of 4-6, CPOT 3-4 Severe Pain = Pain Score of 7-10, CPOT 5-8 ALPRAZolam (XANAX) tablet 0.5 mg 0.5 mg, Oral, 2 Times Daily PRN, Anxiety, Starting on 10/01/25 at 0300, ([facility]) Caution: Look alike/sound alike drug alert. Avoid grapefruit juice 1539 (Given - Provider: Megan Hahn, LAITH) 0333 (Given - Provider: No Neal, RN)2204 (Given - Provider: Arvin Edwards, LAITH) 1215 (Given - Provider: Caitlyn Breen, LAITH) bisacodyl (DULCOLAX) EC tablet 5 mg(Linked Group 3) 5 mg, Oral, Daily PRN, Constipation, Use if polyethylene glycol is ineffective, Starting on 10/01/25 at 0300, Use if no bowel movement after 12 hours. Swallow whole. Do not crush, split, or chew tablet. bisacodyl (DULCOLAX) suppository 10 mg(Linked Group 3) 10 mg, Rectal, Daily PRN, Constipation, Use if bisacodyl oral is ineffective, Starting on 10/01/25 at 0300, Use if no bowel movement after 12 hours. Hold for diarrhea Calcium Replacement - Follow Nurse / BPA Driven Protocol Open Order & Select S Electrolyte Replacement Protocol Algorithm to View Details dextrose (D50W) (25 g/50 mL) IV injection 25 g 25 g, Intravenous, Every 15 Minutes PRN, Low Blood Sugar, Blood Sugar Less Than 70, Starting on 10/01/25 at 0300, Blood sugar less than 70; patient has IV access - Unresponsive, NPO or Unable To Safely Swallow dextrose (GLUTOSE) oral gel 15 g 15 g, Oral, Every 15 Minutes PRN, Low Blood Sugar, Blood sugar less than 70, Starting on 10/01/25 at 0300, BS<70, Patient Alert, Is not NPO, Can safely swallow. glucagon (GLUCAGEN) injection 1 mg 1 mg, Intramuscular, Every 15 Minutes PRN, Low Blood Sugar, Blood Glucose Less Than 70, Starting on 10/01/25 at 0300, Blood Glucose Less Than 70 - Patient Without IV Access - Unresponsive, NPO or Unable To Safely Swallow Reconstitute powder for injection by adding 1 mL of electrical machinist-supplied sterile diluent or sterile water for injection to a vial containing 1 mg of the drug, to provide solutions containing 1 mg/mL. Shake vial gently to dissolve. heparin injection 500 Units 500 Units (5 mL), Intravenous, As Needed, Line Care, Prior to De-Accessing Port, Starting on Fri10/05/25 at 1220 1454 (Given - Provider: Yazmin Nassar RN) HYDROmorphone (DILAUDID) injection 0.25 mg (CANCELED) 0.25 mg, Intravenous, Every 4 Hours PRN, Severe Pain, Starting on Fri10/01/25 at 0808, For 4 days 2 hours, Based on patient request - if ordered for moderate or severe pain, provider allows for administration of a medication prescribed for a lower pain scale. If given for pain, use the following pain scale: Mild Pain = Pain Score of 1-3, CPOT 1-2 Moderate Pain = Pain Score of 4-6, CPOT 3-4 Severe Pain = Pain Score of 7-10, CPOT 5-8 0803 (Given - Provider: Clotilde Breen, Mat Cleaning Machine Operator)1151 (Given - Provider: Clotilde Breen, Mat Cleaning Machine Operator)1849 (Given - Provider: Megan Hahn RN) 0333 (Given - Provider: No Neal RN)0911 (Given - Provider: Clotilde Breen, Mat Cleaning Machine Operator)1518 (Given - Provider: Clotilde Breen, Mat Cleaning Machine Operator)1939 (Given - Provider: Arvin Edwards RN) 0017 (Not Given - Provider: Arvin Edwards RN - Reason: Other (Comment Required) - Comment: low bp)0052 (Given - Provider: Arvin Edwards RN)0523 (Given - Provider: Arvin Edwards RN)0912 (Given - Provider: Caitlyn Breen RN) HYDROmorphone (DILAUDID) injection 0.25 mg 0.25 mg, Intravenous, Every 8 Hours PRN, Severe Pain, Starting on Fri10/05/25 at 0940, Based on patient request - if ordered for moderate or severe pain, provider allows for administration of a medication prescribed for a lower pain scale. If given for pain, use the following pain scale: Mild Pain = Pain Score of 1-3, CPOT 1-2 Moderate Pain = Pain Score of 4-6, CPOT 3-4 Severe Pain = Pain Score of 7-10, CPOT 5-8, On hold since Fri10/05/2025 at 1333 until manually unheld 133 (Held by provider - Provider: Trudy Bolanos, DO - Reason: Other (Comment Required))2023 (Unheld by provider - Provider: Automatic Discharge Provider) influenza vac split high-dose (FLUZONE HIGH DOSE) injection 0.5 mL (COMPLETED) 0.5 mL, Intramuscular, During Hospitalization, Immunization, Starting on Fri10/05/25 at 1400, For 1 dose, Do Not Administer if Temperature Greater Than 102F & Notify Pharmacy Pneumococcal & Influenza Vaccines May Be Given At The Same Time in SEPARATE Injections. Do not administer if temperature greater than 102F & notify pharmacy. Pneumococcal and influenza vaccines may be given at the same time in SEPARATE injections. 1409 (Given - Provider: Caitlyn Breen RN) Magnesium Standard Dose Replacement - Follow Nurse / BPA Driven Protocol Open Order & Select [facility] Electrolyte Replacement Protocol Algorithm to View Details naloxone (NARCAN) injection 0.4 mg 0.4 mg, Intravenous, Every 5 Minutes PRN, Opioid Reversal, Respiratory Depression, Starting on 10/01/25 at 0808 nitroglycerin (NITROSTAT) SL tablet 0.4 mg 0.4 mg, Sublingual, Every 5 Minutes PRN, Chest Pain, Starting on 10/01/25 at 0300, If Pain Unrelieved After 3 Doses Notify MD May administer up to 3 doses per episode. Hold if SBP less than 100. oxyCODONE (ROXICODONE) immediate release tablet 5 mg (CANCELED) 5 mg, Oral, Every 6 Hours PRN, Moderate Pain, Starting on Fri10/02/25 at 1100, For 7 days, Based on patient request - if ordered for moderate or severe pain, provider allows for administration of a medication prescribed for a lower pain scale. (TREVOR) If given for pain, use the following pain scale: Mild Pain = Pain Score of 1-3, CPOT 1-2 Moderate Pain = Pain Score of 4-6, CPOT 3-4 Severe Pain = Pain Score of 7-10, CPOT 5-8 1712 (Given - Provider: Megan Hahn, LAITH)2318 (Given - Provider: No Neal, LAITH) 0622 (Given - Provider: No Neal, LAITH)1329 (Given - Provider: Megan Hahn, LAITH) oxyCODONE (ROXICODONE) immediate release tablet 7.5 mg (CANCELED) 7.5 mg, Oral, Every 8 Hours PRN, Moderate Pain, Starting on Fri10/04/25 at 1546, For 2 days, Based on patient request - if ordered for moderate or severe pain, provider allows for administration of a medication prescribed for a lower pain scale. (TREVOR) If given for pain, use the following pain scale: Mild Pain = Pain Score of 1-3, CPOT 1-2 Moderate Pain = Pain Score of 4-6, CPOT 3-4 Severe Pain = Pain Score of 7-10, CPOT 5-8 2204 (Given - Provider: Arvin Edwards RN) 1046 (Given - Provider: Caitlyn Breen, LAITH)1651 (Given - Provider: Caitlyn Breen, RN) oxyCODONE (ROXICODONE) immediate release tablet 7.5 mg 7.5 mg, Oral, Every 6 Hours PRN, Moderate Pain, Starting on Fri10/05/25 at 2300, Based on patient request - if ordered for moderate or severe pain, provider allows for administration of a medication prescribed for a lower pain scale. (TREVOR) If given for pain, use the following pain scale: Mild Pain = Pain Score of 1-3, CPOT 1-2 Moderate Pain = Pain Score of 4-6, CPOT 3-4 Severe Pain = Pain Score of 7-10, CPOT 5-8 Phosphorus Replacement - Follow Nurse / BPA Driven Protocol Open Order & Select [facility] Electrolyte Replacement Protocol Algorithm to View Details polyethylene glycol (MIRALAX) packet 17 g(Linked Group 3) 17 g, Oral, Daily PRN, Constipation, Use if senna-docusate is ineffective, Starting on 10/01/25 at 0300, Use if no bowel movement after 12 hours. Mix in 6-8 ounces of water. Use 4-8 ounces of water, tea, or juice for each 17 gram dose. Potassium Replacement - Follow Nurse / BPA Driven Protocol Open Order & Select [facility] Electrolyte Replacement Protocol Algorithm to View Details sennosides-docusate (PERICOLACE) 8.6-50 MG per tablet 2 tablet(Linked Group 3) 2 tablet, Oral, 2 Times Daily PRN, Constipation, Starting on 10/01/25 at 0300, Start bowel management regimen if patient has not had a bowel movement after 12 hours. sodium chloride 0.9 % flush 10 mL 10 mL, Intravenous, As Needed, Line Care, Starting on 10/01/25 at 0300 sodium chloride 0.9 % infusion 40 mL 40 mL, Intravenous, at 100 mL/hr, As Needed, Line Care, Starting on 10/01/25 at 0300, Following administration of an IV intermittent medication, flush line with 40mL NS at 100mL/hr. Linked Groups Order Group 1: pantoprazole (PROTONIX) injection 80 mg (COMPLETED) 80 mg, Intravenous, Once, On 10/01/25 at 0316, For 1 dose, Dilute with 10 mL of 0.9% NaCl and give IV push over 2 minutes., Indications: GI Bleed And pantoprazole (PROTONIX) injection 40 mgJump to med 40 mg, Intravenous, Every 12 Hours Scheduled, First dose on 10/01/25 at 1100, Dilute with 10 mL of 0.9% NaCl and give IV push over 2 minutes., Indications: GI Bleed Group 2: acetaminophen (TYLENOL) tablet 650 mgJump to med 650 mg, Oral, Every 4 Hours PRN, Mild Pain, Starting on 10/01/25 at 0300, If given for fever, use fever parameter: fever greater than 100.4 F Based on patient request - if ordered for moderate or severe pain, provider allows for administration of a medication prescribed for a lower pain scale. Do not exceed 4 grams of acetaminophen in a 24 hr period. Max dose of 2gm for AST/ALT greater than 120 units/L. If given for pain, use the following pain scale: Mild Pain = Pain Score of 1-3, CPOT 1-2 Moderate Pain = Pain Score of 4-6, CPOT 3-4 Severe Pain = Pain Score of 7-10, CPOT 5-8 Or acetaminophen (TYLENOL) 160 MG/5ML oral solution 650 mgJump to med 650 mg, Oral, Every 4 Hours PRN, Mild Pain, Starting on 10/01/25 at 0300, If given for fever, use fever parameter: fever greater than 100.4 F Based on patient request - if ordered for moderate or severe pain, provider allows for administration of a medication prescribed for a lower pain scale. Do not exceed 4 grams of acetaminophen in a 24 hr period. Max dose of 2gm for AST/ALT greater than 120 units/L. If given for pain, use the following pain scale: Mild Pain = Pain Score of 1-3, CPOT 1-2 Moderate Pain = Pain Score of 4-6, CPOT 3-4 Severe Pain = Pain Score of 7-10, CPOT 5-8 Or acetaminophen (TYLENOL) suppository 650 mgJump to med 650 mg, Rectal, Every 4 Hours PRN, Mild Pain, Starting on 10/01/25 at 0300, If given for fever, use fever parameter: fever greater than 100.4 F Based on patient request - if ordered for moderate or severe pain, provider allows for administration of a medication prescribed for a lower pain scale. Do not exceed 4 grams of acetaminophen in a 24 hr period. Max dose of 2gm for AST/ALT greater than 120 units/L. If given for pain, use the following pain scale: Mild Pain = Pain Score of 1-3, CPOT 1-2 Moderate Pain = Pain Score of 4-6, CPOT 3-4 Severe Pain = Pain Score of 7-10, CPOT 5-8 Group 3: sennosides-docusate (PERICOLACE) 8.6-50 MG per tablet 2 tabletJump to med 2 tablet, Oral, 2 Times Daily PRN, Constipation, Starting on 10/01/25 at 0300, Start bowel management regimen if patient has not had a bowel movement after 12 hours. And polyethylene glycol (MIRALAX) packet 17 gJump to med 17 g, Oral, Daily PRN, Constipation, Use if senna-docusate is ineffective, Starting on 10/01/25 at 0300, Use if no bowel movement after 12 hours. Mix in 6-8 ounces of water. Use 4-8 ounces of water, tea, or juice for each 17 gram dose. And bisacodyl (DULCOLAX) EC tablet 5 mgJump to med 5 mg, Oral, Daily PRN, Constipation, Use if polyethylene glycol is ineffective, Starting on 10/01/25 at 0300, Use if no bowel movement after 12 hours. Swallow whole. Do not crush, split, or chew tablet. And bisacodyl (DULCOLAX) suppository 10 mgJump to med 10 mg, Rectal, Daily PRN, Constipation, Use if bisacodyl oral is ineffective, Starting on 10/01/25 at 0300, Use if no bowel movement after 12 hours. 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
--- OUTSIDE RECORDS SUMMARY | 2025-10-19 14:14 | XMS_ITS | Encounter Summary ---
[facility] Address [address] [place] [address] Care Team Providers Care Chief Ophthalmic Technician Name Role Phone Juan C Colón MD Primary Care Provider [phone] Reason for Visit * Reason Comments Shortness of Breath Encounter Details Date Type Department Care Team (Late st Contact Info) Description 10/19/2025 2:14 PM EST - 10/19/2025 5:38 PM [facility] [place] Emergency [facility] [address] [place] [address] Orlando Vallejo, [address] [place] [address] Acute on chronic heart failure, [...] care, and heating? Not very hard 10/02/2025 [facility] - Occupational Stress Questionnaire Answer Date [...] things needed for daily living? No 10/02/2025 [facility] Utilities Answer Date Recorded In the past 12 months has th [employer] electric, gas, oil, or water company threatened [...] GED or equivalent No 10/02/2025 Preferred Language [place] Citizen 10/02/2025 PHQ-2 Answer Date Recorded Patient Health [...] 4:35 PM EST Tonya Dobbs RN * [place] Suicide Severity Rating Scale (Screener/Recent Self-Report) Question [...] through Care Everywhere. * Heart Failure Medicines ([place] Citizen) * Chronic Pancreatitis ([place] Citizen) * Shortness of Breath Adult Shdw-lx-Gywl ([place] Citizen) * Living With COPD ([place] Citizen) documented in this encounter Medications at Time [...] Nausea or Vomiting. 15 tablet 5 pancrelipase, Yzk-Mqdu-Gtqd, (CREON) [id number] units capsule delayed-release particles capsule Take 1 [...] from home, pt was seen yester at [facility] and dx with pneumonia, pt is here for carla, and cp. pt wears 3l nc baseline. Pt has hx of pancreatits.History Obtained From: EMS HISTORY OF PRESENT ILLNESS (Location/Symptom, Timing/Onset, Context/Setting, Quality, Duration, Modifying Factors, Severity.) Linda Arteaga is a 65 y.o. female who presents to the emergency department via [facility] secondary to concern for shortness of breath, generalized abdominal pain with a history of chronic recurrent pancreatitis, also underlying COPD. She notes she was just recently in the hospital at [facility] diagnosed with possible pneumonia, pancreatitis and [...] L nasal cannula at baseline. 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 Denies any other acute systemic complaints [...] N/A 04/29/2023 Procedure: PORT REMOVAL; Surgeon: Tha Sanhcez MD; Location: [facility]; Service: General; Laterality: N/A; CURRENT MEDICATIONS [...] Vomiting., Disp: 15 tablet, Rfl: 0 pancrelipase, Lkn-Majk-Rrba, (CREON) [id number] units capsule delayed-release particles capsule, Take 1 [...] this chart in the absence of a welding operator. ECG 12 Lead Dyspnea Preliminary Result Test [...] MD 10/19/2025 4:21 PM EST Workstation ID: [id number] CT Chest Without Contrast Diagnostic Final Result Impression: 1.No acute process identified. Electronically Signed: Gerardo Larkin MD 10/19/2025 4:21 PM EST Workstation ID: [id number] XR Chest 1 View Final Result Impression: Cardiomegaly. No acute radiographic abnormality is identified. Electronically Signed: Yonny Pritchard MD 10/19/2025 3:27 PM EST Workstation ID: [id number] I ordered and independently reviewed the above [...] Without Contrast CT Chest Without Contrast Diagnostic [place] Draw Comprehensive Metabolic Panel BNP High Sensitivity [...] PATIENT REFERRED TO: Rubin Kearney MD [address] [facility] [address] [facility] [id number] Schedule an appointment as soon as possible for a visit Your GI specialist as planned for EGD Juan C Colón MD [address] [facility] [address] In 2 days [facility] [address] [facility] [address] If symptoms worsen DISCHARGE [...] skin as directed by provider Daily. pancrelipase (Syr-Nxku-Fofg) [id number] units capsule delayed-release particles capsule Commonly known [...] Your Medications These medications were sent to [facility] [place] [phone] [place] [phone] [address] dicyclomine 10 MG capsule ondansetron ODT 4 MG disintegrating tablet Comment: Please note this report has been produced using speech recognition software. Orlando Vallejo DO Attending Emergency Physician Orlando Vallejo DO 10/19/25 1645 documented in this encounter Plan of Treatment [...] Lead Dyspnea (10/19/2025 4:15 PM EST) Pathologist [facility] QT Interval 408 ms ECG QTC Interval [...] ED Confirmed By: Alan Quintana Procedure Note lAan Quintana MD - 10/21/2025 Test Reason : [...] MD 10/19/2025 4:21 PM EST Workstation ID: [id number] Narrative 10/19/2025 4:[address] CHEST [...] MD 10/19/2025 4:21 PM EST Workstation ID: [id number] Orlando Vallejo DO [facility] ORDERABLES Final Result * CT Abdomen Pelvis Without Contrast (10/19/2025 4:07 PM EST) Anatomical Region Laterality Modality Abdomen, Pelvis N/A Computed Tomogra phy 10/19/2025 4:14 PM EST Impressions 10/19/2025 4:21 PM EST Impression: 1.No acute process identified. Electronically Signed: Gerardo Larkin MD 10/19/2025 4:21 PM EST Workstation ID: [id number] Narrative 10/19/2025 4:[address] CHEST [...] MD 10/19/2025 4:21 PM EST Workstation ID: [id number] us Orlando Vallejo DO [facility] ORDERABLES Final Result * (ABNORMAL) CBC Auto Differential (10/19/2025 2:51 PM EST) WBC 12.20(H) 3.40 - 10.80 10*3/mm3 10/19/2025 3:06 PM [facility] RBC 4.01 3.77 - 5.28 10*6/mm3 10/19/2025 3:06 PM EST [facility] Hemoglobin 12.2 12.0 - 15.9 g/dL 10/19/2025 3:06 PM [facility] Hematocrit 38.7 34.0 - 46.6 % 10/19/2025 3:06 PM [facility] MCV 96.5 79.0 - 97.0 fL 10/19/2025 3:06 PM [facility] MCH 30.4 26.6 - 33.0 pg 10/19/2025 3:06 PM [facility] MCHC 31.5 31.5 - 35.7 g/dL 10/19/2025 3:06 PM [facility] RDW 15.3 12.3 - 15.4 % 10/19/2025 3:06 PM [facility] RDW-SD 54.1(H) 37.0 - 54.0 fl 10/19/2025 3:06 PM [facility] MPV 10.3 6.0 - 12.0 fL 10/19/2025 3:06 PM [facility] Platelets 310 140 - 450 10*3/mm3 10/19/2025 3:06 PM [facility] Neutrophil % 64.6 42.7 - 76.0 % 10/19/2025 3:06 PM [facility] Lymphocyte % 27.2 19.6 - 45.3 % 10/19/2025 3:06 PM [facility] Monocyte % 4.9(L) 5.0 - 12.0 % 10/19/2025 3:06 PM [facility] Eosinophil % 2.7 0.3 - 6.2 % 10/19/2025 3:06 PM [facility] Basophil % 0.2 0.0 - 1.5 % 10/19/2025 3:06 PM [facility] Immature Grans % 0.4 0.0 - 0.5 % 10/19/2025 3:06 PM [facility] Neutrophils, Absolute 7.87(H) 1.70 - 7.00 10*3/mm3 10/19/2025 3:06 PM [facility] Lymphocytes, Absolute 3.32(H) 0.70 - 3.10 10*3/mm3 10/19/2025 3:06 PM [facility] Monocytes, Absolute 0.60 0.10 - 0.90 10*3/mm3 10/19/2025 3:06 PM [facility] Eosinophils, Absolute 0.33 0.00 - 0.40 10*3/mm3 10/19/2025 3:06 PM [facility] Basophils, Absolute 0.03 0.00 - 0.20 10*3/mm3 10/19/2025 3:06 PM EST [facility] Immature Grans, Absolute 0.05 0.00 - 0.05 10*3/mm3 10/19/2025 3:06 PM EST [facility] nRBC 0.0 0.0 - 0.2 /100 WBC 10/19/2025 3:06 PM EST [facility] Blood Venipuncture / Unknown 10/19/2025 2:51 PM EST 10/19/2025 3:01 PM EST us Orlando Vallejo DO LAB BLOOD ORDERABLES Fin al Result Performing Organization Address City/[facility] [address]/ZIP Co de Phone Number [facility]
[address] [place] [address], * Light Blue Top (10/19/2025 2:51 PM EST) Extra Tube Hold for add-ons. 10/19/2025 3:15 PM EST [facility] Comment:Auto resulted Blood Venipuncture / Unknown 10/19/2025 2:51 PM EST 10/19/2025 3:01 PM EST us Orlando Vallejo DO LAB BLOOD ORDER ONLY Fin al Result [facility]
[address] [place] [address], [place] [phone] * Juárez Top (10/19/2025 2:51 PM EST) Extra Tube Hold for add-ons. 10/19/2025 3:15 PM EST [facility] Comment:Auto resulted. Blood Venipuncture / Unknown 10/19/2025 2:51 PM EST 10/19/2025 3:01 PM EST us Orlando Vallejo DO LAB BLOOD ORDER ONLY Fin al Result Performing Organization Address [facility] [address]/[facility] de Phone Number [facility]
[address] [place] [address], * Gold Top - SST (10/19/2025 2:51 PM EST) Extra Tube Hold for add-ons. 10/19/2025 3:15 PM EST [facility] Comment:Auto resulted. Blood Venipuncture / Unknown 10/19/2025 2:51 PM EST 10/19/2025 3:01 PM EST us Orlando Vallejo DO LAB BLOOD ORDER ONLY Fin al Result Performing Organization Address [facility] [address]/[facility] Phone Number [facility]
[address] [place] [address], * Lavender Top (10/19/2025 2:51 PM EST) Extra Tube hold for add-on 10/19/2025 3:15 PM EST [facility] Comment:Auto resulted Blood Venipuncture / Unknown 10/19/2025 2:51 PM EST 10/19/2025 3:01 PM EST us Orlando Vallejo DO LAB BLOOD ORDER ONLY Fin al Result Performing Organization Address City/[facility] [address]/[facility] de Phone Number [facility]
[address] [place] [address], * Green Top (Gel) (10/19/2025 2:51 PM EST) Extra Tube Hold for add-ons. 10/19/2025 3:00 PM EST [facility] Comment:Auto resulted. Blood Venipuncture / Unknown 10/19/2025 2:51 PM EST 10/19/2025 3:00 PM EST Orlando [facility] LAB BLOOD ORDER ONLY Fin al Result Performing Organization Address City/[facility] [address]/[facility] Co de Phone Number [facility]
[address] [place] [address], * Lipase (10/19/2025 2:51 PM EST) Lipase 22 13 - 60 U/L 10/19/2025 3:29 PM EST [facility] Blood Venipuncture / Unknown 10/19/2025 2:51 PM EST 10/19/2025 3:00 PM EST [facility]ABLES Fin al Result Performing Organization Address [facility] de Phone Number [facility]
[address] [place] [address], * High Sensitivity Troponin T (10/19/2025 2:51 PM EST) Pathologist [facility] Troponin T 12 <14 ng/L 10/19/2025 3:29 PM EST [facility] Blood Venipuncture / Unknown 10/19/2025 2:51 PM EST 10/19/2025 3:00 PM EST Narrative [facility] - 10/19/2025 3:29 PM EST [...] due to an underlying chronic condition. Orlando York[facility]out LAB BLOOD ORDERABLES Fin al Result Performing Organization Address [facility] de Phone Number [facility]
[address] [place] [address], * (ABNORMAL) BNP (10/19/2025 2:51 PM EST) Pathologist [facility] proBNP 2,235.0(H) 0.0 - 900.0 pg/mL 10/19/2025 3:29 PM EST [facility] Blood Venipuncture / Unknown 10/19/2025 2:51 PM EST 10/19/2025 3:00 PM EST [facility] - 10/19/2025 3:29 PM EST This [...] DO LAB BLOOD ORDERABLES Fin al Result [facility]
[address] [place] [address], * (ABNORMAL) Comprehensive Metabolic Panel (10/19/2025 2:51 PM EST) [facility] Glucose 110(H) 65 - 99 mg/dL 10/19/2025 3:31 PM EST [facility] BUN 18.4 8.0 - 23.0 mg/dL 10/19/2025 3:31 PM EST [facility] Creatinine 0.90 0.57 - 1.00 mg/dL 10/19/2025 3:31 PM EST [facility] Sodium 141 136 - 145 mmol/L 10/19/2025 3:31 PM EST [facility] Potassium 4.0 3.5 - 5.2 mmol/L 10/19/2025 3:31 PM [facility] Comment:Specimen hemolyzed. Result may be falsely elevated. Chloride 102 98 - 107 mmol/L 10/19/2025 3:31 PM [facility] CO2 31.8(H) 22.0 - 29.0 mmol/L 10/19/2025 3:31 PM [facility] Calcium 8.7 8.6 - 10.5 mg/dL 10/19/2025 3:31 PM [facility] Total Protein 6.4 6.0 - 8.5 g/dL 10/19/2025 3:31 PM [facility] Albumin 3.6 3.5 - 5.2 g/dL 10/19/2025 3:31 PM [facility] ALT (SGPT) 13 1 - 33 U/L 10/19/2025 3:31 PM [facility] AST (SGOT) 18 1 - 32 U/L 10/19/2025 3:31 PM [facility] Alkaline Phosphatase 96 39 - 117 U/L 10/19/2025 3:31 PM [facility] Total Bilirubin 0.5 0.0 - 1.2 mg/dL 10/19/2025 3:31 PM [facility] Globulin 2.8 gm/dL 10/19/2025 3:31 PM [facility] Comment:Calculated Result A/G Ratio 1.3 g/dL 10/19/2025 3:31 PM [facility] BUN/Creatinine Ratio 20.4 7.0 - 25.0 10/19/2025 3:31 PM [facility] Anion Gap 7.2 5.0 - 15.0 mmol/L 10/19/2025 3:31 PM [facility] eGFR 71.1 >60.0 mL/min/1.7 3 10/19/2025 3:31 PM [facility] Blood Venipuncture / Unknown 10/19/2025 2:51 PM EST 10/19/2025 3:00 PM EST Narrative [facility] - 10/19/2025 3:31 PM EST [...] DO LAB BLOOD ORDERABLES Fin al Result [facility]
[address] [place] [address], * XR Chest 1 View (10/19/2025 2:50 PM EST) Anatomical Region Laterality Modality Body N/A Radiographic Nancy ging 10/19/2025 2:59 PM EST Impressions 10/19/2025 3:27 PM EST Impression: Cardiomegaly. No acute radiographic abnormality is identified. Electronically Signed: Yonny Pritchard MD 10/19/2025 3:27 PM EST Workstation ID: [id number] Narrative 10/19/2025 3:27 PM EST XR CHEST [...] MD 10/19/2025 3:27 PM EST Workstation ID: [id number] us Orlando Vallejo DO IMG DIAGNOSTIC IMAGING [...] documented as of this encounter Care Teams Chief Ophthalmic Technician Relationship Specialty Start Date End Date Juan C Colón MD [address] [place], [place] [phone] PCP - General Family Medicine 04/30/23 documented as of this encounter
[2025-11-04] VITALS (10 sets, daily range): BP systolic 101–145; BP diastolic 57–103; PULSE 54–84; RESP 16–18; TEMP 36.7–37.2; O2SAT 90–97; BMI 32.3
--- OUTSIDE RECORDS SUMMARY | 2025-11-04 13:45 | XMS_ITS | Clinical Summary ---
Author Organization [facility] Address [address] [place] [address] Phone Care Team Providers Care Artillery Maintenance Supervisor Name Role Phone Sami Rasheed MD Unavailable [ ] Conditions or Problems Problem Name Problem Code Onset Date Status Entry Date Provider Comment Standard Description Annotate Chronic mastoiditis, bilateral 70497733 (SNOMED CT) Active Courtney Gordon Chronic mastoiditis Acute mastoiditis, bilateral, without complications H70.003 (ICD-10-CM ) Active Courtney Gordon Acute mastoiditis without complications , bilateral Benign Essential Hypertension [id number] (SNOMED CT) Active Courtney Gordon Benign hypertension Medications Medication Instructions Start Date Stop Date Generic Name ND Provider MEDROL 4 MG TBPK tapering METHYLPREDNISOLONE [id number] Jorge Mckeon ACIDOPHILUS CAPS LACTOBACILLUS [id number] Jorge Mckeon CEFDINIR 300 MG CAPS twice daily CEFDINIR [id number] Jorge Mckeon PERCOCET 5-325 MG TABS 1-2 tablets every 4 hours as needed OXYCODONE-ACETAMINOP HEN [id number] Jorge Mckeon Medications Administered No information available. Allergies, Adverse Reactions, Alerts Allergy Name Reaction Description Start Date Severity Statu s Provider KETOROLAC TROMETHAMINE Moderate Active Jorge S TRAMADOL HCL Moderate Active Luigi s S MEPERIDINE HCL Moderate Active Maria Ines les S CODEINE SULFATE Moderate Active Sandy rles S CIPRO Moderate Active Jroge S Results No information available. Plan of Care No information available. Procedures No information available. Vital Signs No information available. Immunizations No information available. Advance Directives No information available.
--- OUTSIDE RECORDS SUMMARY | 2025-11-04 13:45 | XMS_ITS | Encounter Summary ---
[facility] Organization [facility] Address [address] [place] [address] Care Team Providers Care Apparel Merchandiser Name Role Phone Juan C Colón MD Primary Care Provider [phone] Reason for Visit * Reason Onset Date Comments [facility] QUESTION 10/04/2025 Encounter Details Date Type Department Care Team (Late st Contact Info) Description 10/04/2025 Telephone [facility] [address] [facility] [address] [place] [address] Rubin Lozoya MD [address] [facility] [address] [place] [address] [facility] QUESTION Social History Tobacco Use Types [...] care, and heating? Not very hard 10/02/2025 [facility] [place] of Occupat ional Health - Occupational Stress [...] Recorded In the past 12 months has [facility] [email or web address], gas, oil, or water [place] threatened to shut off services in your [...] GED or equivalent No 10/02/2025 Preferred Language Bangladeshi 10/02/2025 PHQ-2 Answer Date Recorded Patient Health [...] HAS BEEN IN THE HOSPITAL SINCE FRIDAY, [facility] ROOM 459. PATIENT STATES THAT SHE HAD [...] documented as of this encounter Care Teams Apparel Merchandiser Relationship Specialty Start Date End Date Juan C Colón MD [address] [place] [address] PCP - General Family Medicine 04/30/23 documented as of this encounter
--- OUTSIDE RECORDS SUMMARY | 2025-11-04 13:46 | XMS_ITS | Patient Health Record ---
Author Organization [facility] [place] Address [address] [place] [address] Care Team Providers Care Tyre Retreader Name Role Phone ANGELINA BOWIE Primary Care Provider [phone] Reason For Referral No Information Plan Of Treatment No Information
--- OUTSIDE RECORDS SUMMARY | 2025-11-04 13:46 | XMS_ITS | Clinical Summary ---
Author Organization [facility] Address [address] [place] [address] Care Team Providers Care Client Delivery Specialist Name Role Phone Juan C Colón MD Primary Care Provider [phone] Allergies Active Allergy Reactions Criticality Noted Date [...] tablet 08/02/20 Active docusate sodium 100 MG capsuleIndications :Constipation Take 100 mg by mouth 2 (Two) [...] 2 (Two) Times a Day. Active lisinopril (PRINIVIL,ZESTRIL) 5 MG tablet Take 1 tablet by mouth Daily. 11/05/20 25 Active metoprolol succinate XL (TOPROL-XL) 25 MG 24 hr tablet Take 0.5 tablets by mouth Daily. 15 tablet 10/06/20 25 Active aspirin 81 MG EC tablet Take 1 tablet by mouth Daily. 30 tablet 10/06/20 25 Active nicotine (NICODERM CQ) 14 MG/24HR patch Place 1 patch on the skin as directed by provider Daily. 30 patch 10/06/20 25 Active pancrelipase, Pnc-Musc-Czyb, (CREON) 12319-20132 units capsule delayed-release particles capsule Take 1 [...] or Vomiting. 15 tablet 10/19/20 25 Active predniSONE (DELTASONE) 20 MG tablet Take 1 tablet by mouth Daily With Breakfast for 1 dose. 1 tablet 10/06/20 25 025 Active Problems Problem Noted Date Diagnosed Date [...] EST - 10/19/2025 5:38 PM EST Emergency [facility] EMERGENCY DEPARTMENT [address] [place] [id number] Tim Vallejo, DO Acute on chronic heart failure, unspecified heart failure type (Primary Dx); Dyspnea and respiratory abnormalities; Chronic pancreatitis, unspecified pancreatitis type Discharge Disposition: Home or Self Care 10/19/2025 Travel 10/04/2025 Telephone [facility] GA[facility] [address] [phone] Rubin Kearney MD [facility] 09/30/2025 9:51 PM EDT - 10/05/2025 6:18 PM EST Hospital Encounter [facility] 4G [address] [place] [id number] Tim Anthony MD Sanchez, MD Rocio Santiago Ann, MD Emsalem, Rabie, MD Gilbert, Meghan Carroll, DO Pneumonia of both lower lobes due [...] care, and heating? Not very hard 10/02/2025 [facility] - [facility] [...] things needed for daily living? No 10/02/2025 [facility] Utilities Answer Date Recorded In the past [...] GED or equivalent No 10/02/2025 Preferred Language Mosotho 10/02/2025 PHQ-2 Answer Date Recorded Patient Health [...] history exists Medical Devices Implanted Type Area Tenterer Device Identifier Shelf Expiration Date Model / [...] EDT RESPIRATORY PANEL PCR W/ COVID-19 (SARS-COV-2), [employer] SWAB IN UTM/VTP, 2 HR TAT STAT [...] period is included. QT Interval 408 ms ECG QTC Interval [...] MD 10/19/2025 4:21 PM EST Workstation ID: [id number] Narrative 10/19/2025 4:[address] CHEST [...] MD 10/19/2025 4:21 PM EST Workstation ID: [id number] Tim Vallejo DO IMG CT ORDERABLES Final Result * CT Abdomen Pelvis Without Contrast (10/19/2025 4:07 PM EST) Anatomical Region Laterality Modality Abdomen, Pelvis N/A Computed Tomogra phy 10/19/2025 4:14 PM EST Impressions 10/19/2025 4:21 PM EST Impression: 1.No acute process identified. Electronically Signed: Gerardo Larkin MD 10/19/2025 4:21 PM EST Workstation ID: [id number] Narrative 10/19/2025 4:[address] CHEST [...] MD 10/19/2025 4:21 PM EST Workstation ID: [id number] Tim Vallejo DO IMG CT ORDERABLES Final Result * Juárez Top (10/19/2025 2:51 PM EST) Extra Tube Hold for add-ons. 10/19/2025 3:15 PM EST [facility] Comment:Auto resulted. Blood Venipuncture / Unknown 10/19/2025 2:51 PM EST 10/19/2025 3:01 PM EST Tim Vallejo DO LAB BLOOD ORDER ONLY Fin al Result [facility]
[address] [place] [address], * Gold Top - [facility] (10/19/2025 2:51 PM EST) Extra Tube Hold for add-ons. 10/19/2025 3:15 PM EST [facility] Comment:Auto resulted. Blood Venipuncture / Unknown 10/19/2025 2:51 PM EST 10/19/2025 3:01 PM EST Tim Harris [facility] LAB BLOOD ORDER ONLY Fin al Result Performing Organization Address City/[facility]/ZIP Co de Phone Number [facility]
[address] [place] [address], * Green Top (Gel) (10/19/2025 2:51 PM EST) Pathologist [facility] Extra Tube Hold for add-ons. 10/19/2025 3:00 PM EST [facility] Comment:Auto resulted. Blood Venipuncture / Unknown 10/19/2025 2:51 PM EST 10/19/2025 3:00 PM EST Tim Harris [facility] LAB BLOOD ORDER ONLY Fin al Result Performing Organization Address [facility] de Phone Number [facility]
[address] [place] [address], * (ABNORMAL) CBC Auto Differential (10/19/2025 2:51 PM EST) Only the most recent of5 resultswithin the time period is included. Pathologist [facility] WBC 12.20(H) 3.40 - 10.80 10*3/mm3 10/19/2025 3:06 PM [facility] RBC 4.01 3.77 - 5.28 10*6/mm3 10/19/2025 3:06 PM [facility] Hemoglobin 12.2 12.0 - 15.9 g/dL 10/19/2025 3:06 PM [facility] Hematocrit 38.7 34.0 - 46.6 % 10/19/2025 3:06 PM [facility] MCV 96.5 79.0 - 97.0 fL 10/19/2025 3:06 PM [facility] MCH 30.4 26.6 - 33.0 pg 10/19/2025 3:06 PM [facility] MCHC 31.5 31.5 - 35.7 g/dL 10/19/2025 3:06 PM [facility] RDW 15.3 12.3 - 15.4 % 10/19/2025 3:06 PM [facility] RDW-SD 54.1(H) 37.0 - 54.0 fl 10/19/2025 3:06 PM [facility] MPV 10.3 6.0 - 12.0 fL 10/19/2025 3:06 PM [facility] Platelets 310 140 - 450 10*3/mm3 10/19/2025 3:06 PM [facility] Neutrophil % 64.6 42.7 - 76.0 % 10/19/2025 3:06 PM [facility] Lymphocyte % 27.2 19.6 - 45.3 % 10/19/2025 3:06 PM [facility] Monocyte % 4.9(L) 5.0 - 12.0 % 10/19/2025 3:06 PM [facility] Eosinophil % 2.7 0.3 - 6.2 % 10/19/2025 3:06 PM [facility] Basophil % 0.2 0.0 - 1.5 % 10/19/2025 3:06 PM [facility] Immature Grans % 0.4 0.0 - 0.5 % 10/19/2025 3:06 PM [facility] Neutrophils, Absolute 7.87(H) 1.70 - 7.00 10*3/mm3 10/19/2025 3:06 PM [facility] Lymphocytes, Absolute 3.32(H) 0.70 - 3.10 10*3/mm3 10/19/2025 3:06 PM [facility] Monocytes, Absolute 0.60 0.10 - 0.90 10*3/mm3 10/19/2025 3:06 PM [facility] Eosinophils, Absolute 0.33 0.00 - 0.40 10*3/mm3 10/19/2025 3:06 PM EST [facility] Basophils, Absolute 0.03 0.00 - 0.20 10*3/mm3 10/19/2025 3:06 PM EST [facility] Immature Grans, Absolute 0.05 0.00 - 0.05 10*3/mm3 10/19/2025 3:06 PM EST [facility] nRBC 0.0 0.0 - 0.2 /100 WBC 10/19/2025 3:06 PM EST [facility] Blood Venipuncture / Unknown 10/19/2025 2:51 PM EST 10/19/2025 3:01 PM EST Tim Harris [facility] LAB BLOOD ORDERABLES Fin al Result Performing Organization Address City/[facility]/ZIP Co de Phone Number [facility]
[address] [place] [address], [place] [phone] * Lavender Top (10/19/2025 2:51 PM EST) Extra Tube hold for add-on 10/19/2025 3:15 PM EST [facility] Comment:Auto resulted Blood Venipuncture / Unknown 10/19/2025 2:51 PM EST 10/19/2025 3:01 PM EST [facility] ONLY Fin al Result [facility]
[address] [place] [address], [place] [phone] * Light Blue Top (10/19/2025 2:51 PM EST) Extra Tube Hold for add-ons. 10/19/2025 3:15 PM EST [facility] Comment:Auto resulted Blood Venipuncture / Unknown 10/19/2025 2:51 PM EST 10/19/2025 3:01 PM EST Tim Vallejo DO LAB BLOOD ORDER ONLY Fin al Result Performing Organization Address [facility] Co de Phone Number [facility]
[address] [place] [address], * High Sensitivity Troponin T (10/19/2025 2:51 PM EST) Only the most recent of2 resultswithin the time period is included. HS Troponin T 12 <14 ng/L 10/19/2025 3:29 PM EST [facility] Blood Venipuncture / Unknown 10/19/2025 2:51 PM EST 10/19/2025 3:00 PM EST [facility] - 10/19/2025 3:29 PM EST High [...] injury due to an underlying chronic condition. Tim Harrisjonogutierrez LAB BLOOD ORDERABLES Fin al Result Performing Organization Address [facility] de Phone Number [facility]
[address] [place] [address], * (ABNORMAL) BNP (10/19/2025 2:51 PM EST) Only the most recent of2 resultswithin the time period is included. proBNP 2,235.0(H) 0.0 - 900.0 pg/mL 10/19/2025 3:29 PM EST [facility] Blood Venipuncture / Unknown 10/19/2025 2:51 PM EST 10/19/2025 3:00 PM EST [facility] - 10/19/2025 3:29 PM EST This [...] Positive >1800 Juárez 300-1800 Negative <300 Tim Harris [facility] LAB BLOOD ORDERABLES Fin al Result Performing Organization Address City/[facility]/ZIP Co de Phone Number [facility]
[address] [place] [address], * Lipase (10/19/2025 2:51 PM EST) Only the most recent of2 resultswithin the time period is included. Lipase 22 13 - 60 U/L 10/19/2025 3:29 PM EST [facility] Blood Venipuncture / Unknown 10/19/2025 2:51 PM EST 10/19/2025 3:00 PM EST Tim Harris [facility] LAB BLOOD ORDERABLES Fin al Result Performing Organization Address City/[facility]/ZIP Co de Phone Number [facility]
[address] [place] [address], [place] [phone] * (ABNORMAL) Comprehensive Metabolic Panel (10/19/2025 2:51 PM EST) Only the most recent of2 resultswithin the time period is included. Glucose 110(H) 65 - 99 mg/dL 10/19/2025 3:31 PM EST [facility] BUN 18.4 8.0 - 23.0 mg/dL 10/19/2025 3:31 PM EST [facility] Creatinine 0.90 0.57 - 1.00 mg/dL 10/19/2025 3:31 PM [facility] Sodium 141 136 - 145 mmol/L 10/19/2025 3:31 PM [facility] Potassium 4.0 3.5 - 5.2 mmol/L 10/19/2025 3:31 PM [facility] Comment:Specimen hemolyzed. Result may be falsely elevated. Chloride 102 98 - 107 mmol/L 10/19/2025 3:31 PM [facility] CO2 31.8(H) 22.0 - 29.0 mmol/L 10/19/2025 3:31 PM [facility] Calcium 8.7 8.6 - 10.5 mg/dL 10/19/2025 3:31 PM [facility] Total Protein 6.4 6.0 - 8.5 g/dL 10/19/2025 3:31 PM [facility] Albumin 3.6 3.5 - 5.2 g/dL 10/19/2025 3:31 PM [facility] ALT (SGPT) 13 1 - 33 U/L 10/19/2025 3:31 PM [facility] AST (SGOT) 18 1 - 32 U/L 10/19/2025 3:31 PM [facility] Alkaline Phosphatase 96 39 - 117 U/L 10/19/2025 3:31 PM [facility] Total Bilirubin 0.5 0.0 - 1.2 mg/dL 10/19/2025 3:31 PM [facility] Globulin 2.8 gm/dL 10/19/2025 3:31 PM [facility] Comment:Calculated Result A/G Ratio 1.3 g/dL 10/19/2025 3:31 PM [facility] BUN/Creatinine Ratio 20.4 7.0 - 25.0 10/19/2025 3:31 PM [facility] Anion Gap 7.2 5.0 - 15.0 mmol/L 10/19/2025 3:31 PM [facility] eGFR 71.1 >60.0 mL/min/1.7 3 10/19/2025 3:31 PM EST [facility] Blood Venipuncture / Unknown 10/19/2025 2:51 PM EST 10/19/2025 3:00 PM EST Narrative [facility] - 10/19/2025 3:31 PM EST [...] does not include race as a factor Tim Vallejo DO LAB BLOOD ORDERABLES [facility] al Result [facility]
[address] [place] [address], * XR Chest 1 View (10/19/2025 2:50 PM EST) Only the most recent of3 resultswithin the time period is included. Anatomical Region Laterality Modality Body N/A Radiographic Nancy ging 10/19/2025 2:59 PM EST Impressions 10/19/2025 3:27 PM EST Impression: Cardiomegaly. No acute radiographic abnormality is identified. Electronically Signed: Yonny Pritchard MD 10/19/2025 3:27 PM EST Workstation ID: [id number] Narrative 10/19/2025 3:27 PM EST XR CHEST [...] MD 10/19/2025 3:27 PM EST Workstation ID: [id number] Tim Vallejo DO IMG DIAGNOSTIC IMAGING O RDERABLES Final Result * (ABNORMAL) Potassium (10/05/2025 5:17 PM EST) Only the most recent of2 resultswithin the time period is included. Potassium 5.8(H) 3.5 - 5.2 mmol/L 10/05/2025 5:50 PM EST [facility] Comment:Specimen hemolyzed. Result may be falsely elevated. Blood Venipuncture / Unknown 10/05/2025 5:17 PM EST 10/05/2025 5:25 PM EST Baylee Marcial Sesay PA-C LAB BLOOD ORDERABLES Fi nal Result [facility]
[address] [place] [address], * (ABNORMAL) POC Glucose Once (10/05/2025 3:51 PM EST) Only the most recent of19 resultswithin the time period is included. Glucose 139(H) 70 - 130 mg/dL 10/05/2025 3:54 PM EST [facility] Comment:Serial Number: [id number] Blood 10/05/2025 3:51 PM EST 10/05/2025 3:54 PM EST Trudy Bolanos DO POINT OF CARE TEST ORD ERABLES Final Result [facility]
[address] [place] [address], * Magnesium (10/05/2025 3:37 PM EST) Only the most recent of5 resultswithin the time period is included. Magnesium 1.6 1.6 - 2.4 mg/dL 10/05/2025 4:34 PM EST [facility] Blood Venipuncture / Unknown 10/05/2025 3:37 PM EST 10/05/2025 4:06 PM EST Virgie Chan MD LAB BLOOD ORDERABLES Final Resul t [facility]
[address] [place] [address], * (ABNORMAL) Basic Metabolic Panel (10/05/2025 3:37 PM EST) Only the most recent of4 resultswithin the time period is included. Glucose 124(H) 65 - 99 mg/dL 10/05/2025 4:34 PM EST [facility] BUN 30.5(H) 8.0 - 23.0 mg/dL 10/05/2025 4:34 PM EST [facility] Creatinine 1.07(H) 0.57 - 1.00 mg/dL 10/05/2025 4:34 PM EST [facility] Sodium 139 136 - 145 mmol/L 10/05/2025 4:34 PM EST [facility] Potassium 5.5(H) 3.5 - 5.2 mmol/L 10/05/2025 4:34 PM EST [facility] Comment:Specimen hemolyzed. Result may be falsely elevated. Chloride 99 98 - 107 mmol/L 10/05/2025 4:34 PM EST [facility] CO2 33.3(H) 22.0 - 29.0 mmol/L 10/05/2025 4:34 PM EST [facility] Calcium 8.8 8.6 - 10.5 mg/dL 10/05/2025 4:34 PM EST [facility] BUN/Creatinine Ratio 28.5(H) 7.0 - 25.0 10/05/2025 4:34 PM EST [facility] Anion Gap 6.7 5.0 - 15.0 mmol/L 10/05/2025 4:34 PM EST [facility] eGFR 57.8(L) >60.0 mL/min/1.7 3 10/05/2025 4:34 PM EST [facility] Blood Venipuncture / Unknown 10/05/2025 3:37 PM EST 10/05/2025 4:06 PM EST [facility] - 10/05/2025 4:34 PM EST GFR [...] MD LAB BLOOD ORDERABLES Final Resul t [facility]
[address] [place] [address], * Telemetry Scan (10/05/2025 9:42 AM EST) Only the most recent of3 resultswithin the time period is included. [facility] ECG ORDERABLES Final Result * [place] Limited [...] MD 10/03/2025 3:55 PM EST Workstation ID: [id number] Narrative 10/03/2025 3:55 PM EST [place] VIDEO [...] MD 10/03/2025 3:55 PM EST Workstation ID: [id number] Virgie Chan MD IM FLUOROSCOPY ORDERABLES Final Result * [place] Video [...] MD 10/03/2025 3:55 PM EST Workstation ID: [id number] Narrative 10/03/2025 3:55 PM EST [place] VIDEO [...] MD 10/03/2025 3:55 PM EST Workstation ID: [id number] Virgie Chan MD IMG FLUOROSCOPY ORDERABLES Final Result * Hemoglobin & Hematocrit, Blood (10/03/2025 7:25 AM EST) Only the most recent of3 resultswithin the time period is included. Pathologist [facility] Hemoglobin 13.0 12.0 - 15.9 g/dL 10/03/2025 8:01 AM EST [facility] Hematocrit 42.2 34.0 - 46.6 % 10/03/2025 8:01 AM EST [facility] Blood Venipuncture / Unknown 10/03/2025 7:25 AM EST 10/03/2025 7:44 AM EST Virgie Chan MD LAB BLOOD ORDERABLES Final Resul t Performing Organization Address City/[facility] Co de Phone Number [facility]
[address] [place] [address], * (ABNORMAL) Heparin Anti-Xa (10/02/2025 4:16 AM EST) Only the most recent of2 resultswithin the time period is included. Pathologist [facility] Heparin Anti-Xa (UFH) 0.10(L) 0.30 - 0.70 IU/ml 10/02/2025 5:04 AM EST [facility] Blood Venipuncture / Unknown 10/02/2025 4:16 AM EST 10/02/2025 4:35 AM EST [place] [facility] LAB BLOOD ORDERABLES Final Res ult Performing Organization Address City/[facility]/ZIP Co de Phone Number [facility]
[address] [place] [address], * (ABNORMAL) C-reactive Protein (10/02/2025 4:16 AM EST) Only the most recent of2 resultswithin the time period is included. Pathologist [facility] C-Reactive Protein 0.95(H) 0.00 - 0.50 mg/dL 10/02/2025 4:53 AM EST [facility] Blood Venipuncture / Unknown 10/02/2025 4:16 AM EST 10/02/2025 4:30 AM EST us Virgie Chan MD LAB BLOOD ORDERABLES Final Resul t [facility]
[address] [place] [address], * Phosphorus (10/02/2025 4:16 AM EST) Only the most recent of2 resultswithin the time period is included. Phosphorus 4.2 2.5 - 4.5 mg/dL 10/02/2025 6:14 AM EST [facility] Blood Venipuncture / Unknown 10/02/2025 4:16 AM EST 10/02/2025 4:30 AM EST us Virgie Chan MD LAB BLOOD ORDERABLES Final Resul t Performing Organization Address City/[facility]/ZIP Co de Phone Number [facility]
[address] [place] [address], * (ABNORMAL) aPTT (10/01/2025 7:37 PM EDT) PTT 20.3(L) 60.0 - 90.0 seconds 10/01/2025 8:48 PM EDT [facility] Blood Venipuncture / Unknown 10/01/2025 7:37 PM EDT 10/01/2025 7:52 PM EDT Narrative [facility] - 10/01/2025 8:48 PM EDT PTT = The equivalent PTT values for the therapeutic range of heparin levels at 0.3 to 0.5 U/ml are 60 to 70 seconds. us Virgie Chan MD LAB BLOOD ORDERABLES Final Resul t Performing Organization Address City/State/[facility] Co de Phone Number [facility]
[address] [place] [address], * Protime-INR (10/01/2025 7:37 PM EDT) Protime 13.9 12.2 - 15.3 Seconds 10/01/2025 8:23 PM EDT [facility] INR 1.01 0.89 - 1.12 10/01/2025 8:23 PM EDT [facility] Blood Venipuncture / Unknown 10/01/2025 7:37 PM EDT 10/01/2025 7:52 PM EDT us Virgie Chan MD LAB BLOOD ORDERABLES Final Resul t Performing Organization Address [facility] de Phone Number [facility]
[address] [place] [address], * (ABNORMAL) MRSA Screen, PCR (Inpatient) - Swab, Nares (10/01/2025 10:36 AM EDT) Pathologist [facility] MRSA PCR Positive(A ) Negative CEPHEID GENEXPERT 10/01/2025 12:07 PM EDT [facility] Swab Structure of anterior naris / Unknown Collection / Unknown 10/01/2025 10:36 AM EDT 10/01/2025 10:36 AM EDT Narrative [facility] - 10/01/2025 12:07 PM EDT The negative predictive value of this diagnostic test is high and should only be used to consider de-escalating anti-MRSA therapy. A positive result may indicate colonization with MRSA and must be correlated clinically. us Virgie Chan MD MICROBIOLOGY - GENERAL ORDERABLE S Final Result Performing Organization Address [facility] Co de Phone Number [facility]
[address] [place] [address], * (ABNORMAL) Blood Gas, Arterial With Co-Ox (10/01/2025 9:07 AM EDT) Only the most recent of2 resultswithin the time period is included. Site Left Brachial 10/01/2025 9:07 AM EDT [facility] RES[facility] THERAPY Wili's Test N/A 10/01/2025 9:07 AM EDT [facility] RES[facility] THERAPY pH, Arterial 7.339(L) 7.350 - 7.450 pH units 10/01/2025 9:07 AM EDT [facility]ERAP[facility] Comment:84 Value below refer ence range pCO2, Arterial 55.2(H) 35.0 - 45.0 mm Hg 10/01/2025 9:07 AM EDT [facility]ERAP[facility] Comment:83 Value above refer ence range pO2, Arterial 86.8 83.0 - 108.0 mm Hg 10/01/2025 9:07 AM EDT [facility] RES[facility] THERAPY HCO3, Arterial 29.6(H) 20.0 - 26.0 mmol/L 10/01/2025 9:07 AM EDT [facility] RES[facility] THERAPY Base Excess, Arterial 2.6(H) 0.0 - 2.0 mmol/L 10/01/2025 9:07 AM EDT [facility] THERAPY Hemoglobin, Blood Gas 13.7(L) 14 - 18 g/dL 10/01/2025 9:07 AM EDT [facility] RES[facility] THERAPY Hematocrit, Blood Gas 42.1 38.0 - 51.0 % 10/01/2025 9:07 AM EDT [facility] THERAPY Oxyhemoglobin 93.6(L) 94 - 99 % 10/01/2025 9:07 AM EDT [facility] THERAPY Comment:84 Value below refer ence range Methemoglobin 0.20 0.00 - 1.50 % 10/01/2025 9:07 AM EDT [facility] RES[facility] THERAPY Carboxyhemoglobin 2.5(H) 0 - 2 % 025 9:07 AM EDT [facility] THERAPY Comment:83 Value above refer ence range CO2 Content 31.3 22 - 33 mmol/L 10/01/2025 9:07 AM EDT [facility] RES[facility]IR[facility]ORY THERAPY Temperature 37.0 10/01/2025 9:07 AM EDT [facility] RESPIR[facility]ORY THERAPY Barometric Pressure for Blood Gas 10/01/2025 9:07 AM EDT [facility] Comment:N/A Modality BiPap 10/01/2025 9:07 AM EDT [facility] FIO2 45 % 10/01/2025 9:07 AM EDT [facility] Ventilator Mode BiPAP 9:07 AM EDT [facility] IPAP 16 cm H2O 10/01/2025 9:07 AM EDT [facility] Comment:Meter: [id number] Fac Engineer: [id number] EPAP 6 cm H2O 10/01/2025 9:07 AM EDT [facility] pH, Temp Corrected 7.339 pH Units 2024 9:07 AM EDT [facility] pCO2, Temperature Corrected 55.2(H) 35 - 45 mm Hg 10/01/2025 9:07 AM EDT [facility] pO2, Temperature Corrected 86.8 83 - 108 mm Hg 10/01/2025 9:07 AM EDT [facility] Arterial Blood 10/01/2025 9: 07 AM EDT 10/01/2025 9:07 AM EDT us Virgie Chan MD LAB BLOOD ORDERABLES Final Resul t [facility]
[address] [place] [address], * (ABNORMAL) Urinalysis, Microscopic Only - Urine, Clean Catch (10/01/2025 6:39 AM EDT) RBC, UA 0-2 None Seen, 0-2 /HPF 10/01/2025 7:36 AM EDT [facility] WBC, UA 21-50(A) None Seen, 0-2 /HPF 10/01/2025 7:36 AM EDT [facility] Bacteria, UA None Seen None Seen /HPF 10/01/2025 7:36 AM EDT [facility] Squamous Epithelial Cells, UA 0-2 None Seen, 0-2 /HPF 10/01/2025 7:36 AM EDT [facility] [facility] Hyaline Casts, UA 3-6 None Seen /LPF 10/01/2025 7:36 AM EDT [facility] Methodology Automated Microscopy 10/01/2025 7:36 AM EDT [facility] Urine Urine specimen obtained by clean catch procedure / Unknown Collection / Unknown 10/01/2025 6:39 AM EDT 10/01/2025 7:05 AM EDT Franklin Thorpe MD URINE ORDERABLES Final Result [facility] [place] [address], * (ABNORMAL) Urinalysis With Microscopic If Indicated (No Culture) - Urine, Clean Catch (10/01/2025 6:39 AM EDT) Color, UA Yellow Yellow, Straw 10/01/2025 7:36 AM EDT [facility] Appearance, UA Clear Clear 10/01/2025 7:36 AM EDT [facility] pH, UA <=5.0 5.0 - 8.0 10/01/2025 7:36 AM EDT [facility] Specific [place], UA >1.030(H) 1.005 - 1.030 10/01/2025 7:36 AM EDT [facility] Glucose, UA Negative Negative 10/01/2025 7:36 AM EDT [facility] Ketones, UA Negative Negative 10/01/2025 7:36 AM EDT [facility] Bilirubin, UA Negative Negative 10/01/2025 7:36 AM EDT [facility] Blood, UA Negative Negative 10/01/2025 7:36 AM EDT [facility] Protein, UA Negative Negative 10/01/2025 7:36 AM EDT [facility] Leuk Esterase, UA Moderate (2+)(A) Negative 10/01/2025 7:36 AM EDT [facility] Nitrite, UA Negative Negative 10/01/2025 7:36 AM EDT [facility] Urobilinogen, UA 0.2 E.U./dL 0.2 - 1.0 E.U./dL 10/01/2025 7:36 AM EDT [facility] Urine Urine specimen obtained by clean catch procedure / Unknown Collection / Unknown 10/01/2025 6:39 AM EDT 10/01/2025 7:05 AM EDT Franklin Thorpe MD URINE ORDERABLES Final Result [facility]
[address] [place] [address], [place] [phone] * S. Pneumo Ag Urine or CSF - Urine, Urine, Clean Catch (10/01/2025 6:39 AM EDT) Pathologist [facility] Strep Pneumo Ag Negative Negative 10/01/2025 12:48 PM EDT [facility] Urine Urine specimen obtained by clean catch procedure / Unknown Collection / Unknown 10/01/2025 6:39 AM EDT 10/01/2025 9:50 AM EDT Virgie Chan MD MICROBIOLOGY - GENERAL ORDERABLE S Final Result [facility]
[address] [place] [address], [place] [phone] * (ABNORMAL) Urine Drug Screen - Urine, Clean Catch (10/01/2025 6:39 AM EDT) THC, Screen, Urine Positive(A) Negative 10/01 7:19 AM T [facility] Phencyclidine (PCP), Urine Negative Negative 10/01/2025 7:19 AM T [facility] Cocaine Screen, Urine Positive(A) Negative 10/01/2025 7:19 AM EDT [facility] Methamphetamine, Ur Negative Negative 10/01/2025 7:19 AM T [facility] Opiate Screen Positive(A) Negative 10/01/2025 7:19 AM EDT [facility] Amphetamine Screen, Urine Negative Negative 10/01/2025 7:19 AM [facility] Benzodiazepine Screen, Urine Positive(A) Negative 10/01/2025 7:19 AM [facility] Tricyclic Antidepressants Screen Negative Negative 10/01/2025 7:19 AM [facility] Methadone Screen, Urine Negative Negative 10/01/2025 7:19 AM T [facility] Barbiturates Screen, Urine Negative Negative 10/01/2025 7:19 AM T [facility] Oxycodone Screen, Urine Negative Negative 10/01/2025 7:19 AM [facility] Buprenorphine, Screen, Urine Negative Negative 10/01/2025 7:19 AM [facility] Urine Urine specimen obtained by clean catch procedure / Unknown Collection / Unknown 10/01/2025 6:39 AM EDT 10/01/2025 7:05 AM EDT [facility] - 10/01/2025 7:19 AM EDT Cutoff [...] Virgie Chan MD URINE ORDERABLES Final Result [facility]
[address] [place] [address], [place] [phone] * Legionella Antigen, Urine - Urine, Urine, Clean Catch (10/01/2025 6:39 AM EDT) LEGIONELLA ANTIGEN, URINE Negative Negative 10/01/2025 12:47 PM EDT [facility] Urine Urine specimen obtained by clean catch procedure / Unknown Collection / Unknown 10/01/2025 6:39 AM EDT 10/01/2025 9:50 AM EDT us Virgie Chan MD MICROBIOLOGY - GENERAL ORDERABLE S Final Result [facility]
[address] [place] [address], [place] [phone] * Fentanyl, Urine - Urine, Clean Catch (10/01/2025 6:39 AM EDT) Fentanyl, Urine Negative Negative 10/01/2025 10:01 AM EDT [facility] Urine Urine specimen obtained by clean catch procedure / Unknown Collection / Unknown 10/01/2025 6:39 AM EDT 10/01/2025 7:05 AM EDT Narrative [facility] - 10/01/2025 10:01 AM EDT Negative [...] URINE ORDERABLES Final Result Performing Organization Address City/[facility] Co de Phone Number [facility]
[address] [place] [address], * proBNP (10/01/2025 6:14 AM EDT) proBNP 319.0 0.0 - 900.0 pg/mL 10/01/2025 8:26 AM EDT [facility] Blood Venipuncture / Unknown 10/01/2025 6:14 AM EDT 10/01/2025 6:21 AM EDT Narrative [facility] - 10/01/2025 8:26 AM EDT [...] >75 Positive >1800 Juárez 300-1800 Negative <300 Virgie Chan MD LAB BLOOD ORDERABLES Final Resul t Performing Organization Address City/[facility]/ZIP Co de Phone Number [facility]
[address] [place] [address], * Scan Slide (10/01/2025 6:14 AM EDT) RBC Morphology Normal Normal 10/01/2025 7:25 AM EDT [facility] WBC Morphology Normal Normal 10/01/2025 7:25 AM EDT [facility] Platelet Morphology Normal Normal 10/01/2025 7:25 AM EDT [facility] Blood Venipuncture / Unknown 10/01/2025 6:14 AM EDT 10/01/2025 6:21 AM EDT us Franklin Thorpe MD LAB BLOOD ORDERABLES Final Re sult Performing Organization Address [facility] Co de Phone Number [facility]
[address] [place] [address], * Lactic Acid, Plasma (10/01/2025 6:13 AM EDT) [facility] Lactate 1.8 0.5 - 2.0 mmol/L 10/01/2025 6:57 AM EDT [facility] Comment:Falsely depressed re sults may occur on samples drawn from patients receiving N-Acetylcysteine (NAC) or Metamizole. Blood Venipuncture / Unknown 10/01/2025 6:13 AM EDT 10/01/2025 6:21 AM EDT Franklin Thorpe MD LAB BLOOD ORDERABLES Final Re sult Performing Organization Address [facility] Co de Phone Number [facility]
[address] [place] [address], * Respiratory Panel PCR w/COVID-19(SARS-CoV-2) CHRISTINA/JUANA/BELEN/PAD/COR/TYRA In-House, [employer] Swab in UTM/VTM, 2 HR TAT - Swab, Nasopharynx (10/01/2025 12:07 AM EDT) [facility] ADENOVIRUS, PCR Not Detected Not Detected BIOFIRE TOR 10/01/2025 1:35 AM EDT [facility] Coronavirus 229E Not Detected Not Detected BIOFIRE TOR 10/01/2025 1:35 AM EDT [facility] Coronavirus HKU1 Not Detected Not Detected BIOFIRE TOR 10/01/2025 1:35 AM EDT [facility] Coronavirus NL63 Not Detected Not Detected BIOFIRE TORCH 10/01/2025 1:35 AM EDT [facility] Coronavirus OC43 Not Detected Not Detected BIOFIRE TOR 10/01/2025 1:35 AM EDT [facility] COVID19 Not Detected Not Detected - Ref. Range BIOFIRE TOR 10/01/2025 1:35 AM EDT [facility] Human Metapneumovirus Not Detected Not Detected BIOFIRE TOR 10/01/2025 1:35 AM EDT [facility] Human Rhinovirus/Enterov irus Not Detected Not Detected BIOFIRE TOR 10/01/2025 1:35 AM EDT [facility] Influenza A PCR Not Detected Not Detected BIOFIRE TOR 10/01/2025 1:35 AM EDT [facility] Influenza B PCR Not Detected Not Detected BIOFIRE TOR 10/01/2025 1:35 AM EDT [facility] Parainfluenza Virus 1 Not Detected Not Detected BIOFIRE TOR 10/01/2025 1:35 AM EDT [facility] Parainfluenza Virus 2 Not Detected Not Detected BIOFIRE TOR 10/01/2025 1:35 AM EDT [facility] Parainfluenza Virus 3 Not Detected Not Detected BIOFIRE TOR 10/01/2025 1:35 AM EDT [facility] Parainfluenza Virus 4 Not Detected Not Detected BIOFIRE TOR 10/01/2025 1:35 AM EDT [facility] RSV, PCR Not Detected Not Detected BIOFIRE TOR 10/01/2025 1:35 AM EDT [facility] Bordetella pertussis pcr Not Detected Not Detected BIOFIRE TOR 10/01/2025 1:35 AM EDT [facility] Bordetella parapertussis PCR Not Detected Not Detected BIOFIRE TOR 10/01/2025 1:35 AM EDT [facility] Chlamydophila pneumoniae PCR Not Detected Not Detected BIOFIRE TOR 10/01/2025 1:35 AM EDT [facility] Mycoplasma pneumo by PCR Not Detected Not Detected BIOFIRE TOR 10/01/2025 1:35 AM EDT [facility] Swab Nasopharyngeal structure / Unknown Collection / Unknown 10/01/2025 12:07 AM EDT 10/01/2025 12:35 AM EDT [facility] - 10/01/2025 1:35 AM EDT In [...] Tim Anthony MD MICROBIOLOGY - GENERAL ORDERA BLES Final Result Performing Organization Address [facility]/ZIP Co de Phone Number [facility]
[address] [place] [address], * High Sensitivity Troponin T 1Hr (09/30/2025 11:49 PM EDT) HS Troponin T 10 <14 ng/L 10/01/2025 12:21 AM EDT [facility] Troponin T Numeric Delta 1 Abnormal if >/=3 ng/L 10/01/2025 12:21 AM EDT [facility] Blood Port / Unknown 09/30/2025 11 :49 PM EDT 10/01/2025 12:01 AM EDT [facility] - 10/01/2025 12:21 AM EDT High [...] injury due to an underlying chronic condition. Tim Anthony MD LAB BLOOD ORDERABLES Final Re sult [facility]
[address] [place] [address], * CT Angiogram Chest Pulmonary Embolism (09/30/2025 [...] MD 09/30/2025 11:54 PM EDT Workstation ID: [id number] Narrative 09/30/2025 11:[address] ANGIOGRAM [...] MD 09/30/2025 11:54 PM EDT Workstation ID: [id number] us Tim Anthony MD IMG CT ORDERABLES Final Resul t * CT [...] MD 09/30/2025 11:57 PM EDT Workstation ID: [id number] Narrative 09/30/2025 11:[address] ABDOMEN [...] MD 09/30/2025 11:57 PM EDT Workstation ID: [id number] us Tim Anthony MD IMG CT ORDERABLES Final Resul t * (ABNORMAL) Blood Gas, Venous With Co-Ox (09/30/2025 10:11 PM EDT) Site Nurse/Dr Draw 09/30/2025 10:12 PM EDT [facility] pH, Venous 7.377 7.310 - 7.410 pH Units 09/30/2025 10:12 PM EDT [facility] THERAPY pCO2, Venous 54.0(H) 41.0 - 51.0 mm Hg 09/30/2025 10:12 PM EDT [facility] Comment:83 Value above refer ence range pO2, Venous 33.4 27.0 - 53.0 mm Hg 09/30/2025 10:12 PM EDT [facility] THERAPY HCO3, Venous 31.7(H) 22.0 - 28.0 mmol/L 09/30/2025 10:12 PM EDT [facility] THERAPY Base Excess, Venous 5.1(H) -2.0 - 2.0 mmol/L 09/30/2025 10:12 PM EDT [facility]ER[facility] Hemoglobin, Blood Gas 13.8(L) 14 - 18 g/dL 09/30/2025 10:12 PM EDT [facility]ER[facility] Oxyhemoglobin Venous 57.5 % 09/02 10:12 PM EDT [facility] THERAPY Methemoglobin Venous 0.5 % 09/02 10:12 PM EDT [facility] THERAPY Carboxyhemoglobin Venous 6.7 % 09/30/2025 10:12 PM EDT [facility] Comment:83 Value above refer ence range CO2 Content 33.4(H) 22 - 33 mmol/L 09/30/2025 10:12 PM EDT [facility] THERAPY Temperature 37.0 09/30/2025 10:12 PM EDT [facility] THERAPY Barometric Pressure for Blood Gas 09/30/2025 10:12 PM EDT [facility] Comment:N/A Modality Nasal Cannula 09/30/2025 10:12 PM EDT [facility] THERAPY FIO2 40 % 09/30/2025 10:12 PM EDT [facility] THERAPY Rate 0 Breaths/ minute 09/30/2025 10:12 PM EDT [facility] THERAPY PIP 0 cmH2O 09/30/2025 10:12 PM EDT [facility] Comment:Meter: [id number] Fac Engineer: [id number] IPAP 0 cm H2O 09/30/2025 10:12 PM EDT [facility] THERAPY EPAP 0 cm H2O 09/30/2025 10:12 PM EDT [facility] THERAPY Venous Blood 09/30/2025 10:1 1 PM EDT 09/30/2025 10:11 PM EDT us Tim Anthony MD LAB BLOOD ORDERABLES Final Re sult [facility] THERAPY
[address] [place] [address], * Colonoscopy, Scan (04/05/2024) us Rubin Kearney MD CHART REVIEW T ABS Final Result * POC Occult Blood Stool (07/29/2020 7:04 PM EDT) Fecal Occult Blood Negative Negative [facility] Lot Number [id number] 1R [facility] Expiration Date 06/21 [facility] DEVELOPER LOT NUMBER [id number] [facility] DEVELOPER EXPIRATION DATE 05/23 [facility] Positive Control Positive Positive [facility] Negative Control Negative Negative [facility] Stool Specimen from rectum / Unknown 07/29/2020 7:04 PM EDT Cheko Galdamez MD POINT OF CARE TEST ORDERABLES Final Result Performing Organization Address [facility]/ZIP Co de Phone Number [facility]
[address] [place] [id number], * (ABNORMAL) Hemoglobin A1c (08/01/2017 5:10 AM EDT) Hemoglobin A1C 6.30(H) 4.80 - 5.60 % 08/01/2017 8:00 AM EDT [facility] Blood 08/01/2017 5:10 AM EDT 08/01/2017 5:26 AM EDT Narrative [facility] - 08/01/2017 8:00 AM EDT The [place] [employer] recommends maintenance of Hemoglobin A1C at 7.0% or lower. Goals for Hemoglobin A1C reduction may need to be modified if hypoglycemia is a problem. Lili Mandujano II, DO LAB BLOOD ORDERABLES Elodia l Result [facility]
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
--- OUTSIDE RECORDS SUMMARY | 2025-11-04 13:46 | XMS_ITS | Clinical Summary ---
Author Organization [facility] Address [address] [place] [address] Phone Care Team Providers Care Mitten Sewer Name Role Phone Unavailable Primary Care Provider [...] CHEMISTRY ORDERABLES Edit ed Performing Organization Address City/State/[facility] Co de Phone Number [facility] [address] [place] [address] from Last 3 Months or Most Recently Relevant to Health Maintenance Insurance MEDICARE [place] PART [place] Member Subscriber Plan / Payer (Ef fective 2011-Present) Name:Linda Arteaga Relation to Subscriber:Self Name:Arteaga Linda R Payer ID:Not on file Group ID:Not on file Type:Not on file Address: [address] [place] [id number]
--- OUTSIDE RECORDS SUMMARY | 2025-11-04 13:46 | XMS_ITS | Encounter Summary ---
Author Organization [facility] Address [address] [place] [address] Care Team Providers Care Meteorologist In Charge Name Role Phone Juan C Colón MD Primary Care Provider [phone] Encounter Details Date Type Department Care Team [...] care, and heating? Not very hard 10/02/2025 [facility] Occupat ional Health - Occupational Stress [...] things needed for daily living? No 10/02/2025 [facility] Utilities Answer Date Recorded In the past 12 months has [employer] electric, gas, oil, or water company threatened [...] GED or equivalent No 10/02/2025 Preferred Language Ugandan 10/02/2025 PHQ-2 Answer Date Recorded Patient Health [...] 10/19/2025 4:35 PM Tonya Deluna RN * [place] Suicide Severity Rating Scale (Screener/Recent Self-Report) Question [...] documented as of this encounter Care Teams Meteorologist In Charge Relationship Specialty Start Date End Date Juan C Colón MD [address] [place] [id number] PCP - General Family Medicine 04/30/23 documented as of this encounter
--- OUTSIDE RECORDS SUMMARY | 2025-11-04 13:46 | XMS_ITS | Encounter Summary ---
[facility] Address [address] [place] [address] Care Team Providers Care Registered Client Associate Name Role Phone Juan C Colón MD Primary Care Provider Encounter Details Date Type Department Care Team [...] or training? Not on file Preferred Language Botswanan 02/17/2024 Comments No Sex and Gender Information Value Date Recorded Sex Assigned at Not on file Legal Sex Female 10:08 AM EDT Gender Identity Not on file Sexual Orientation Not on file documented as of this encounter Functional Status * Calculated C-SSRS Risk Score (Lifetime/Recent) Answer Date of Assessment Author No Risk Indicated 09/30/2025 9:59 PM EDT Shayla Head RN * [place] Suicide Severity Rating Scale (Screener/Recent Self-Report) Question [...] on filedocumented in this encounter Care Teams Registered Client Associate Relationship Specialty Start Date End Date Juan C Colón MD [address] [place] [phone] PCP - General Family Medicine 04/30/23 documented as of this encounter
--- OUTSIDE RECORDS SUMMARY | 2025-11-04 13:48 | XMS_ITS | Clinical Summary ---
Author Organization Healthcare Address [address] [place] [address] Care Team Providers Care Marine Electrician Apprentice Name Role Phone Oskar Donovan MD Primary Care Provider [phone] Medications No known medications Active Problems No [...] 07/29/2021 07/29/2020, 07/24/2020 [facility]-Colorectal Cancer Screening 07/29/2021 [id number] Vaccine (3 - season) 2025 10/09/2021, 02/02/2021 [...] Recently Relevant to Health Maintenance Results * [place] Hepatitis C Antibody (04/11/2022 6:36 PM EDT) Hepatitis C Antibody Negative Negative 04/11/2022 9:56 PM EDT [facility] Blood Venous blood specimen / Unknown Venipuncture / Unknown 04/11/2022 6:36 PM EDT 04/11/2022 6:43 PM EDT us Leland Miller MD LAB BLOOD ORDERABLES Final Resul t [facility] [address] [place] [address] from Last 3 Months or Most Recently Relevant to Health Maintenance Insurance Care Teams Marine Electrician Apprentice Relationship Specialty Start Date End Date Oskar Donovan MD [address] [place] [address] PCP - General 04/13/21
--- NOTE | 2025-11-04 13:49 | HMH.EDGENADL ---
Discharge Plan Disposition Patient Disposition: Home, Self-Care Prescriptions Prescriptions: No Action Xarelto 20 mg tablet 20 mg PO QPMWITHMEAL metoprolol succinate 25 mg tablet extended release 24 hr 12.5 mg PO DAILY Qty: 90 3RF verapamil 120 mg tablet extended release 120 mg PO BID Qty: 60 3RF promethazine 25 mg tablet 25 mg PO TID Qty: 90 0RF alprazolam 1 mg tablet 1 mg PO TID PRN (Reason: anxiety) Qty: 90 3RF dicyclomine 20 mg tablet 20 mg PO TID Qty: 90 3RF Trelegy Ellipta 200-62.5-25 mcg blister with device 1 inh inhalation DAILY Qty: 60 12RF atorvastatin 40 mg tablet 40 mg PO HS Qty: 90 3RF pantoprazole 40 mg tablet,delayed release (DR/EC) 40 mg PO HS 30 Days Qty: 30 0RF potassium chloride 10 mEq tablet extended release 10 meq PO DAILY Qty: 90 0RF duloxetine 60 mg capsule,delayed release(DR/EC) 60 mg PO BID 90 Days Qty: 180 0RF trazodone 100 mg tablet 100 mg PO HS Qty: 90 0RF montelukast 10 mg tablet 10 mg PO HS Qty: 30 2RF magnesium oxide 400 mg (241.3 mg magnesium) tablet 400 mg PO BID Qty: 60 3RF quetiapine [Seroquel] 50 mg tablet 50 mg PO DAILY Qty: 90 3RF ferrous sulfate 325 mg (65 mg iron) tablet 325 mg PO BID Qty: 60 0RF metformin 1,000 mg tablet 1,000 mg PO BIDWMEAL Qty: 60 0RF gabapentin 600 mg tablet 600 mg PO BID ropinirole 0.25 mg tablet 0.25 mg PO HS levothyroxine 100 mcg tablet 100 mcg PO DAILY ranolazine 500 mg tablet extended release 12 hr 500 mg PO BID Creon 12,000-38,000 -60,000 unit capsule,delayed release(DR/EC) 1 cap PO AC polyethylene glycol 3350 [Miralax] 17 gram/dose powder 17 g PO DAILYP PRN (Reason: constiptation) Trelegy Ellipta 100-62.5-25 mcg Blister With Device 1 inh inhalation DAILY Qty: 60 0RF prednisone 20 mg Tablet 40 mg PO DAILY 3 Days Qty: 6 0RF amoxicillin-pot clavulanate 875-125 mg tablet 1 tab PO TID Qty: 15 0RF Referrals Follow up/Referrals: Juan C Colón MD [Primary Care Provider, Family Practice] - See instructions Activity Restrictions/Add. Instructions Additional Instructions/Restrictions: Continue your antibiotics as prescribed. You can take Tylenol at home to help with your pain. Follow-up with your primary care doctor as needed. If you develop any new or worsening symptoms, or if you become concerned for your help for any reason, return to the emergency department for evaluation Clinical Impressions Clinical Impression: Abdominal pain, Diverticulitis Instructions Patient Instructions: DI for Acute Abdominal Pain Print Language Print Language: Bengali Discharge ED Provider: Ifeanyi Britton General Adult HPI General Chief complaint: Abdominal Pain Stated complaint: ABD pain Time Seen by Provider: 11/04/25 13:35 History of Present Illness HPI narrative: Linda Arteaga is a [age]y female with a history of internal hemorrhoids status post banding in October 2024, A-fib on Xarelto and recently taken off Brilinta for GI bleed, COPD on 3 L nasal cannula at baseline who presents to the emergency department for complaints of abdominal pain and inability to tolerate oral intake. Patient had similar complaints yesterday and was seen in the emergency department had a CT scan that confirmed diverticulitis and was discharged on antibiotics. Patient states that she took 2 of her antibiotics this morning but states that she is still having abdominal pain. She called her primary care doctor who told her that she needed to be admitted to the hospital. She states that she has not taken anything for pain. Related Data Home Medications ?Medication ?Instructions ?Recorded ?Confirmed rivaroxaban 20 mg tablet (Xarelto) 20 mg PO QPMWITHMEAL 05/12/25 10/15/25 gabapentin 600 mg tablet 600 mg PO BID 05/26/25 10/15/25 ropinirole 0.25 mg tablet 0.25 mg PO HS 05/26/25 10/15/25 levothyroxine 100 mcg tablet 100 mcg PO DAILY 07/25/25 10/15/25 puhohu-hdededfi-ydchqxw(pork)12,000-38,000-60,000 1 cap PO AC 10/15/25 10/15/25 unit capsule,del rel (Creon) polyethylene glycol 3350 17 17 g PO DAILYP PRN constiptation 10/15/25 10/15/25 gram/dose oral powder (Miralax) ranolazine 500 mg tablet,extended 500 mg PO BID 10/15/25 10/15/25 release,12 hr Previous Rx's ?Medication ?Instructions ?Recorded atorvastatin 40 mg tablet 40 mg PO HS #90 tabs 02/07/25 pantoprazole 40 mg tablet,delayed 40 mg PO HS 30 days #30 tabs 04/06/25 release potassium chloride 10 mEq 10 meq PO DAILY #90 tabs 04/13/25 tablet,extended release duloxetine 60 mg capsule,delayed 60 mg PO BID 90 days #180 caps 04/18/25 release trazodone 100 mg tablet 100 mg PO HS #90 tabs 07/08/25 montelukast 10 mg tablet 10 mg PO HS #30 tabs 07/18/25 magnesium oxide 400 mg (241.3 mg 400 mg PO BID #60 tabs 08/26/25 magnesium) tablet ferrous sulfate 325 mg (65 mg 325 mg PO BID #60 tabs 09/26/25 iron) tablet metformin 1,000 mg tablet 1,000 mg PO BIDWMEAL #60 tabs 09/26/25 quetiapine 50 mg tablet (Seroquel) 50 mg PO DAILY #90 tabs 09/26/25 fluticasone fur. 100 mcg-umeclid 1 inh inhalation DAILY #60 ea 10/18/25 62.5 mcg-vilant 25 mcg inhalat.powder (Trelegy Ellipta) prednisone 20 mg tablet 40 mg (2 x 20 mg) PO DAILY 3 days 10/18/25 #6 tabs alprazolam 1 mg tablet 1 mg PO TID PRN anxiety #90 tabs 10/26/25 dicyclomine 20 mg tablet 20 mg PO TID #90 tabs 10/26/25 fluticasone fur. 200 mcg-umeclid 1 inh inhalation DAILY #60 ea 10/26/25 62.5 mcg-vilant 25 mcg inhalat.powder (Trelegy Ellipta) metoprolol succinate 25 mg 12.5 mg (1/2 x 25 mg) PO DAILY #90 10/26/25 tablet,extended release 24 hr tabs promethazine 25 mg tablet 25 mg PO TID #90 tabs 10/26/25 verapamil 120 mg tablet,extended 120 mg PO BID #60 tabs 10/26/25 release amoxicillin 875 mg-potassium 1 tab PO TID #15 tabs 11/03/25 clavulanate 125 mg tablet Allergies Allergy/AdvReac Type Severity Reaction Status Date / Time codeine (CODEINE) Allergy Intermediate N/V Verified 10/26/25 10:26 ketorolac (KETOROLAC) Allergy Intermediate Hives Verified 10/26/25 10:26 meperidine (MEPERIDINE) Allergy Intermediate Hives Verified 10/26/25 10:26 tramadol (TRAMADOL) Allergy Intermediate Hives Verified 10/26/25 10:26 ciprofloxacin AdvReac Severe Interacts Verified 10/26/25 10:26 with cymbalta [facility] Disclaimer: The information contained in this section may have been updated after the patient was seen, as this information can be updated by other users. Medical History FLACO (obstructive sleep apnea) Diarrhea BRBPR (bright red blood per rectum) Hypomagnesemia Atrial fibrillation with rapid ventricular response Myofascial pain on right side Right hip pain Internal hemorrhoid, bleeding Multiple falls Pancreatic divisum Afib Esophageal dilatation Multiple lung nodules on CT Pulmonary emphysema Hypocalcemia Hypokalemia Acidosis, lactic GI bleed Noncompliance with medication regimen Tobacco dependence in remission Pancreas divisum of [place] pancreas Encounter for pre-operative cardiovascular clearance Orthopnea CHF (congestive heart failure) Pancreatitis Nausea vomiting and diarrhea Exhausted vascular access Rib fractures Chronic hypoxemic respiratory failure Coronary artery disease COPD (chronic obstructive pulmonary disease) HLD (hyperlipidemia) Diabetes Anxiety and depression TIA (transient ischemic attack) History of stroke History of multiple cerebrovascular accidents (CVAs) History of class III angina pectoris Typical angina Dyspnea History of pancreatitis History of CVA (cerebrovascular accident) Surgical History History of banding of hemorrhoid History of biliary duct stent placement History of hysterectomy History of cholecystectomy History of coronary artery stent placement Family History Other Family history of cancer Family history of diabetes mellitus Social History Smoking Status: Current every day smoker tobacco type: e-cigarettes years smoked: 45 how long ago did patient quit smokin years ago quit status: quit date established second hand exposure: No alcohol intake: never counseling provided: none substance use type: marijuana and crack/cocaine current occupational status: retired, disabled and other Travel in the last 8 weeks?: None household members: significant other housing: house marital status: number of children: 2 current occupational exposures/hazards: No caffeine: Yes Have you lived/traveled outside [place] in past 30 days?: No Contact w/someone who lives/traveled outside [place] past 30 days?: No Exposure to someone with infectious disease in past 14 days?: No Do you have a fever (greater than 100.4 F or 38 C)?: No Have you tested positive for COVID-19?: No Exposed to someone with COVID-19 in past 14 days?: No Do you have a sore throat?: No Do you have a cough?: No Do you have any weakness?: No Do you have any diarrhea?: No Are you experiencing any unusual bleeding?: No Do you have any muscle aches/pain?: No Do you have any abdominal pain?: No Are you experiencing loss of taste or smell?: No Other Medical History Have you received the Flu Vaccine for this season: No Have you received the Pneumonia Vaccine: No ROS Obtained: Yes Systems reviewed as appropriate & no additional complaints except as documented Physical Exam General General appearance: alert and in no apparent distress Head Head exam: atraumatic Eye Eye exam: Present normal appearance ENT ENT exam: Present normal external ear exam Neck Neck exam: Present full ROM Chest Chest inspection: Present symmetric chest wall rise Respiratory Respiratory exam: Present normal lung sounds bilaterally; Absent respiratory distress Cardiovascular Cardiovascular exam: Present regular rate and normal rhythm Abdominal Exam Abdominal exam: Present soft, tenderness (generalized) and guarding (voluntary guarding); Absent distention or rigidity Extremities Exam Extremities exam: Present normal inspection Back Exam Back exam: Present normal inspection Neurological Exam Neurological exam: Present alert and oriented X3 Psychiatric Psychiatric exam: Present normal affect Skin Skin exam: Present warm and dry Medical Decision Making Medical Records Screening: Per USPSTF and CDC recommendations, given the prevalence of disease in our region, it is our hospital?s policy to screen for HIV and viral Hepatitis for all patients aged 18 and over and those with ongoing risk factors. Delroy Inquiry Pt receiving controlled substance: No Vital Signs: 11/04/25 13:44 11/04/25 13:46 11/04/25 13:58 Temperature 99.0 F Temperature Source Oral Pulse Rate 84 58 L Pulse Rate [Right] 75 Respiratory Rate 18 Blood Pressure 145/103 H Blood Pressure [Right Arm] 145/103 H Blood Pressure Mean [Right Arm] 117 Blood Pressure Source [Right Arm] Automatic Cuff Blood Pressure Position [Right Arm] Supine 02 Sat by Pulse Oximetry 90 L 95 93 L Oxygen Delivery Method Nasal Cannula Nasal Cannula Nasal Cannula Oxygen Flow Rate (LPM) 3 3 3 Lab Data Lab Results 11/04/25 14:00: WBC 8.9, RBC 3.99 L, Hgb 12.5, Hct 38.7, MCV 97.0, MCH 31.3 H, MCHC 32.3, RDW 15.4, Plt Count 297, MPV 10.8 H, Neut % (Auto) 64.4, Lymph % (Auto) 27.1, Placer % (Auto) 5.9, Eos % (Auto) 2.0, Baso % (Auto) 0.3, Neut # (Auto) 5.8, Lymph # (Auto) 2.4, Placer # (Auto) 0.5, Eos # (Auto) 0.2, Baso # (Auto) 0.0, Sodium 143, Potassium 4.2, Chloride 102, Carbon Dioxide 30, Anion Gap 15.2 H, BUN 9, Creatinine 0.90, Estimated Creat Clear 80, Estimated GFR 63, Est GFR ( Amer) 76 D, Glucose 92, Lactate 1.5, Calcium 8.7, Total Bilirubin 0.7, AST 20, ALT 13, Alkaline Phosphatase 94, Total Protein 7.2, Albumin 4.0, Globulin 3.2, Albumin/Globulin Ratio 1.3, Lipase 65 11/04/25 14:00 11/04/25 14:00 Orders (Tests/Meds): ED MEDICATIONS Discontinued Medications Generic Name Dose Route Start Last Admin Trade Name Freq PRN Reason Stop Dose Admin Acetaminophen 1,000 mg 11/04/25 13:48 11/04/25 14:30 Acetaminophen 1,000mg/100ml Vial IV 11/04/25 13:49 1,000 mg ONCE ONE Administration Ondansetron HCl 4 mg 11/04/25 13:51 11/04/25 14:35 Ondansetron 4mg/2ml Vial IV 11/04/25 13:52 4 mg ONCE ONE Administration ORDERS Category Date Time Status CBC w/Auto Diff [Complete Blood Count Auto Diff] Stat Lab 11/04/25 14:00 Completed CMP [Comprehensive Metabolic Panel] Stat Lab 11/04/25 14:00 Completed Lactic Acid Stat Lab 11/04/25 14:00 Completed Lipase Stat Lab 11/04/25 14:00 Completed Medical Decision Narrative: Linda Arteaga is a 65y 65y female with a history of internal hemorrhoids status post banding in October 2024, A-fib on Xarelto and recently taken off Brilinta for GI bleed, COPD on 3 L nasal cannula at baseline who presents to the emergency department for complaints of abdominal pain and inability to tolerate oral intake. Patient had similar complaints yesterday and was seen in the emergency department had a CT scan that confirmed diverticulitis and was discharged on antibiotics. Patient states that she took 2 of her antibiotics this morning but states that she is still having abdominal pain. She called her primary care doctor who told her that she needed to be admitted to the hospital. She states that she has not taken anything for pain. On arrival, patient is mildly hypertensive, heart rate within normal limits, breathing comfortably on her baseline 3 L nasal cannula. Physical exam, stated above, revealed nontoxic-appearing female in no distress. She has generalized abdominal tenderness with voluntary guarding. Patient is resting comfortably and when I enter the room, she becomes tearful. I evaluated patient yesterday and diagnosed her with diverticulitis. She did receive 1 mg Dilaudid and admitted to taking Xanax prior to arrival. Urinalysis also was positive for marijuana, cocaine and benzodiazepines. She had received Narcan because of intermittent hypoxia and episodes of apnea. I am concerned that polypharmacy and drug-seeking behavior are a factor here. Will avoid additional opioids at this time. Will obtain basic hematologic labs to rule out bowel ischemia but I do not feel that patient requires additional imaging at this time as I have low concern for diverticular perforation. Laboratory studies show no leukocytosis, normal hemoglobin, electrolytes within normal limits. Lactate normal at 1.5. No ALYSE. Liver enzymes bilirubin within normal limits. Lipase normal at 65. Patient initially refused IV Tylenol and Zofran, however she was agreeable shortly after. On reassessment at 0, patient is sleeping comfortably in the stretcher and in no distress. I do feel that she is appropriate for discharge at this time with plan to continue her antibiotics at home and follow-up with her primary care doctor. Encouraged her to take Tylenol at home to help with pain. Return precautions were given. All questions were answered. She demonstrated understanding and was in agreement this plan. She was then discharged from the emergency department in stable condition. Critical Care Critical Care Time Critical Care Time: No
--- NOTE | 2025-11-04 14:11 | PC.NURSE ---
Pt refused both medications ordered by Dr. Britton stating this is a fucking joke, I have these meds at home . Dr. Britton notified @[id number].
[2025-11-04 14:13] LABS: Albumin Level 4.0 g/dl (3.5-5.0); Chloride 102 mmol/L (98-107)
[2025-11-04 14:14] LABS: Potassium 4.2 mmoL/L (3.5-5.1); Sodium 143 mmol/L (136-145)
[2025-11-04 14:16] LABS: Alanine Aminotransferase 13 U/L (12-78); Alkaline Phosphatase 94 U/L (38-126); Anion Gap 15.2 mEq/L (5-15); Aspartate Amino Transferase 20 U/L (14-36); Bilirubin,Total 0.7 mg/dl (0.2-1.3); Blood Urea Nitrogen 9 mg/dl (7-17); Carbon Dioxide 30 mmol/L (22.0-30.0); Creatinine Clearance Estimated 80 mL/min (50-200); Creatinine,Serum 0.90 mg/dl (0.52-1.04); Estimated Glomerular Filt Rate 63 ml/min (>60); GFR (African American) 76 ML/MIN (>60)
[2025-11-04 14:17] LABS: Albumin/Globulin Ratio 1.3 (1.1-1.8); Calcium 8.7 mg/dl (8.4-10.2); Globulin 3.2 g/dL (1.3-3.2); Glucose 92 mg/dl (74-100); Lipase 65 U/L (23-300); Total Protein,Serum 7.2 g/dl (6.3-8.2)
--- NOTE | 2025-11-04 14:18 | PC.NURSE ---
Patient requesting to see Bus Transportation Manager. Notified House.
[2025-11-04] MEDS: ACETAMINOPHEN 1,000MG/100ML VIAL 1000 MG IV (14:30)
[2025-11-04] MEDS: ONDANSETRON 4MG/2ML VIAL 4 MG IV (14:35)
[2025-11-04 14:47] LABS: Hematocrit 38.7 % (37.0-47.0); Hemoglobin 12.5 g/dL (12.2-16.2); Immature Granulocytes % 0.3 %; Mean Corpuscular HGB Conc 32.3 g/dL (31.8-35.4); Mean Corpuscular Hemoglobin 31.3 pg (27.0-31.2); Mean Corpuscular Volume 97.0 fl (81-99); Nucleated Red Blood Cells % 0 %; Platelet Count 297 K/mm3 (142-424); Red Blood Count 3.99 M/mm3 (4.20-5.40); Red Cell Distribution Width-SD 54.7 fL; White Blood Count 8.9 K/mm3 (4.8-10.8)
--- NOTE | 2025-11-04 15:17 | PC.NURSE ---
Patient states she is calling her family to come pick her up.
--- NOTE | 2025-11-04 16:38 | PC.NURSE ---
Spoke with grand daughter states she is on her way to pick patient up.
--- NOTE | 2025-11-04 17:11 | PC.NURSE ---
Took patient a tray of food. she said she didnt know if she could eat it. Patient also was taking her Oxygen off i let her know she needed to leave it on and she said, i cant .
== END 2025-11-04 18:07 | disposition home or self-care (01) ==
PROVIDERS: Emergency Provider Student in an Organized Health Care Education/Training Program; PCP Family Medicine
DX: R10.84 Generalized abdominal pain (principal); K57.32 Diverticulitis of large intestine without perforation or abscess without bleeding; F17.290 Nicotine dependence, other tobacco product, uncomplicated
CPT/HCPCS: 80053; 83605; 83690; 85025; 96374; 96375; 99284; 99285; J0131; J1642; J2405